=== PATIENT | female | born 1930 | race Caucasian/White ===

== ENCOUNTER 2016-10-28 12:56 | Emergency (ER) | payer BC ==
[~2016-10-28] VITALS: Ht 160 cm; Wt 69.0 kg
[~2016-10-28 12:56] MED LIST: ABL/5 PO; ACET325T30 PO; ASCO250T5 PO; ASPI81TA28 PO; B-COTAB18 PO; BISA-16 PO; CHOL400C9 PO; CLON0.5T3 PO; CYAN10005 PO; DEXL60CA4 PO; DICL1GEL28 TOP; DILT180C50 PO; DOCU1TAB6 PO; DULO60CA44 PO; FURO-85 PO; GABA-112 PO; HYDR200T5 PO; LEVO88TA PO; MULT-190 PO; MULT-884 PO; NYSS5 PO; ONDA8TAB7 SL; OXYC20TA50 PO; POLY335019 PO; POTA10TA PO; PRED10TA PO; RXC5 PO; TRIM100T20 PO
[2016-10-28 12:58] VITALS: TEMP 36.9; Ht 160 cm; Wt 69.0 kg
--- NOTE | 2016-10-28 13:30 | EMERGENCY ROOM VISIT NOTE ---
History Report prepared by Master: Inna Tracy Under the Supervision of: Dr. Truman Lazaro M.D. First contact with patient: 13:07 Chief Complaint: MENTAL HEALTH EVALUATION Stated Complaint: SUICIDAL THOUGHTS History of Present Illness The patient is a 85 year old female who presents to the Emergency Room for a mental health evaluation due to worsening depression that began last year. The patient's of 52 some years last year and she has been increasingly depressed since then. She feels as if she has no reason to live and has been having suicidal ideations. Her plan would be to throw herself down the steps. A few nights ago, she was standing at the top of her steps thinking about how easy it would be to fall down the steps purposefully. The patient does not have any history of mental health problems. She denies any alcohol or drug use. She has not had any hallucinations. Denies homicidal ideation. Source of History: patient Onset: last year Position: other (psychiatric) Quality: other (depression) Timing: worsening Note: Other symptoms: suicidal ideation Review of Systems See HPI for pertinent positives & negatives. A total of 10 systems reviewed and were otherwise negative. Past Medical & Surgical Medical Problems: (1) Ambulatory dysfunction (2) Arthritis (3) Asthma (4) Cholecystectomy (5) Chronic back pain (6) Depression (7) Diverticulitis (8) Fall from ground level (9) FUO (fever of unknown origin) (10) Gastroesophageal reflux disease (11) Generalized weakness (12) Hyperlipidemia (13) Hypothyroidism (14) IBS (15) Impacted cerumen (16) Lupus (17) Major depressive disorder, recurrent episode with anxious distress (18) Osteoarthritis (19) Pituitary adenoma (20) pituitary gland removal (21) SIRS (systemic inflammatory response syndrome) (22) TIA (23) UTI (urinary tract infection) (24) Vasovagal syncope (25) Viral syndrome Surgical Problems: (1) H/O: hysterectomy (2) History of hip replacement (3) Hx of cholecystectomy Family History Cancer Diabetes mellitus Gallbladder disease Heart disease Hypertension Kidney disease Kidney stones Seizures Social History Smoking Status: Never Smoker Alcohol Use: none Drug Use: none Marital Status: Housing Status: lives alone Occupation Status: retired Current/Historical Medications Scheduled Aripiprazole (Abilify), 10 MG PO DAILY Ascorbic Acid (Ascorbic Acid), 1 TAB PO HS Aspirin (Aspirin Ec), 81 MG PO DAILY B-Complex Vitamins (Vitamin B Complex), 1 TAB PO HS Cholecalciferol (Vitamin D3), 2 TAB PO HS Clonazepam (Klonopin), 0.5 MG PO QAM Clonazepam (Klonopin), 1 MG PO HS Cyanocobalamin (Vitamin B-12), 1,000 MCG PO HS Dexlansoprazole (Dexilant), 60 MG PO BID Diclofenac Sodium (Topical) (Voltaren 1% Top Gel), 1 APPLN TOP BID Diltiazem Hcl Coated Beads (Cartia Xt), 180 MG PO QAM Docusate Sodium (Docusate Sodium), 100 MG PO BID Duloxetine Hcl (Cymbalta), 60 MG PO DAILY Furosemide (Lasix), 40 MG PO QAM Gabapentin (Neurontin), 100 MG PO TID Hydroxychloroquine Sulfate (Plaquenil), 200 MG PO BID Levothyroxine Sodium (Synthroid), 88 MCG PO QAM Multiple Vitamin (Multi Vitamin Daily), 1 TAB PO DAILY Ocuvite Preservision (Ocuvite Preservision), 1 TAB PO BID Oxycodone Hcl (Oxycontin), 20 MG PO BID Polyethylene Glycol 3350 (Miralax), 17 GM PO BID Potassium Chloride (K-Tabs), 10 MEQ PO BID Prednisone Tab (Prednisone), 15 MG PO DAILY Trimethoprim (Proloprim), 100 MG PO DAILY Scheduled PRN Acetaminophen (Acetaminophen), 650 MG PO Q4 PRN for Pain Bisacodyl (Dulcolax), 5 MG PO DAILY PRN for Constipation Oxycodone HCl (Oxycodone HCl), 5 MG PO Q4H PRN for Pain Allergies Coded Allergies: Ciprofloxacin (Verified Allergy, Intermediate, rash, 08/20/16) Quinolones (Verified Allergy, Intermediate, HIVES, 08/20/16) Fluticasone (Verified Allergy, Unknown, ADVAIR, 08/20/16) Lactose Intolerance (Verified Allergy, Unknown, UNKNOWN, 08/20/16) Latex1 -Allergic Contact Dermititis (Verified Allergy, Unknown, RASH, 07/26) Morphine (Verified Allergy, Unknown, HIVES, 08/20/16) Nitrofurantoin (Verified Allergy, Unknown, HIVES, 08/20/16) Salmeterol (Verified Allergy, Unknown, ADVAIR, 08/20/16) Scallop (Verified Allergy, Unknown, UNKNOWN, 08/20/16) Celecoxib (Verified Adverse Reaction, Unknown, barretts esophagus, ) Physical Exam Vital Signs Date Time Temp Pulse Resp B/P Pulse Ox O2 Delivery O2 Flow Rate FiO2 10/28/16 18:11 102 18 122/61 92 Room Air 10/28/16 14:13 93 18 116/50 92 Room Air 10/28/16 12:58 36.9 97 18 99/52 97 Room Air Physical Exam GENERAL: Patient is elderly appearing and in no acute distress, sad appearing. HEENT: No acute trauma, normocephalic atraumatic, mucous membranes moist, no nasal congestion, no scleral icterus. NECK: No stridor, no adenopathy, no meningismus, trachea is midline. LUNGS: No dyspnea. Clear to auscultation and equal bilaterally. No wheeze, no rhonchi. HEART: Regular rate and rhythm. No murmurs, rubs, gallops appreciated. ABDOMEN: Soft, nontender, bowel sounds positive, no masses appreciated, no peritonitis. BACK: No midline tenderness, no CVA tenderness EXTREMITIES: Normal motion all extremities, no cyanosis, no edema. Well-dressed left heel wound without surrounding erythema or discharge. NEUROLOGIC: Alert and oriented, no acute motor or sensory deficits, no focal weakness, cranial nerves grossly intact. SKIN: No rash, no jaundice, no diaphoresis. PSYCH: Admits suicidal ideation with a plan, no hallucinations, no homicidal ideations. Medical Decision & Procedures ER Provider Diagnostic Interpretation: X ray results and stated below per my interpretation and radiologist interpretation. Other radiology results and stated below per my review and radiologist interpretation: CT HEAD WITHOUT CONTRAST (CT) CLINICAL HISTORY: Acute change in mental status. Suicidal patient. COMPARISON STUDY: 08/20/2016 TECHNIQUE: Axial CT of the brain is performed from the vertex to the skull base. IV contrast was not administered for this examination. CT DOSE: 638.56 mGycm FINDINGS: No intra or extra-axial mass lesions are visualized. There is no CT evidence of acute cortical infarction. There is no evidence of midline shift. There is no acute hemorrhage. No calvarial fractures are visualized. There are minor white matter hypodensities likely on a small vessel basis. 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 There is no evidence of acute sinusitis IMPRESSION: No acute intracranial findings Electronically signed by: Fredy Boyd M.D. 10/28/2016 2:10 PM Dictated Date/Time: 10/28/2016 2:09 PM CHEST ONE VIEW PORTABLE CLINICAL HISTORY: Leukocytosis. COMPARISON STUDY: Chest radiograph August 20, 2016. FINDINGS: Lung volumes are normal. There is no pneumothorax or pleural effusion. An azygos fissure is present. Cardiomediastinal silhouette is stable. Pulmonary vascularity is normal. A few nodular densities within the right midlung may reflect vessels. These are of doubtful significance. IMPRESSION: No acute cardiopulmonary findings. Electronically signed by: Anjel Encarnacion M.D. 10/28/2016 2:28 PM Dictated Date/Time: 10/28/2016 2:27 PM Laboratory Results 10/28/16 13:46 Red Blood Count 4.61, Mean Corpuscular Volume 88.7, Mean Corpuscular Hemoglobin 26.9, Mean Corpuscular Hemoglobin Concent 30.3, Mean Platelet Volume 10.1, Neutrophils (%) (Auto) 85.0, Lymphocytes (%) (Auto) 7.8, Monocytes (%) (Auto) 5.5, Eosinophils (%) (Auto) 0.7, Basophils (%) (Auto) 0.2, Neutrophils # (Auto) 13.07, Lymphocytes # (Auto) 1.20, Monocytes # (Auto) 0.84, Eosinophils # (Auto) 0.11, Basophils # (Auto) 0.03 10/28/16 13:46 Test 10/28/16 00:00 10/28/16 13:46 Urine Color YELLOW Urine Appearance CLEAR (CLEAR) Urine pH 7.5 (4.5-7.5) Urine Specific [place] 1.001 (1.000-1.030) Urine Protein NEG (NEG) Urine Glucose (UA) NEG (NEG) Urine Ketones NEG (NEG) Urine Occult Blood NEG (NEG) Urine Nitrite NEG (NEG) Urine Bilirubin NEG (NEG) Urine Urobilinogen NEG (NEG) Urine Leukocyte Esterase TRACE (NEG) Urine WBC (Auto) 1-5 /hpf (0-5) Urine RBC (Auto) 0-4 /hpf (0-4) Urine Hyaline Casts (Auto) 0 /lpf (0-5) Urine Epithelial Cells (Auto) 0-5 /lpf (0-5) Urine Bacteria (Auto) NEG (NEG) Urine Opiates Screen NEG (NEG) Urine Methadone, Qualitative NEG (NEG) Urine Barbiturates NEG (NEG) Urine Phencyclidine (PCP) Level NEG (NEG) Ur Amphetamine/Methamphetamine NEG (NEG) MDMA (Ecstasy) Screen NEG (NEG) Urine Benzodiazepines Screen NEG (NEG) Urine Cocaine Metabolite NEG (NEG) Urine Marijuana (THC) NEG (NEG) White Blood Count 15.37 K/uL (4.8-10.8) Red Blood Count 4.61 M/uL (4.2-5.4) Hemoglobin 12.4 g/dL (12.0-16.0) Hematocrit 40.9 % (37-47) Mean Corpuscular Volume 88.7 fL (80-100) Mean Corpuscular Hemoglobin 26.9 pg (25-34) Mean Corpuscular Hemoglobin Concent 30.3 g/dl (32-36) Platelet Count 256 K/uL (130-400) Mean Platelet Volume 10.1 fL (7.4-10.4) Neutrophils (%) (Auto) 85.0 % Lymphocytes (%) (Auto) 7.8 % Monocytes (%) (Auto) 5.5 % Eosinophils (%) (Auto) 0.7 % Basophils (%) (Auto) 0.2 % Neutrophils # (Auto) 13.07 K/uL (1.4-6.5) Lymphocytes # (Auto) 1.20 K/uL (1.2-3.4) Monocytes # (Auto) 0.84 K/uL (0.11-0.59) Eosinophils # (Auto) 0.11 K/uL (0-0.5) Basophils # (Auto) 0.03 K/uL (0-0.2) RDW Standard Deviation 62.9 fL (36.4-46.3) RDW Coefficient of Variation 19.2 % (11.5-14.5) Immature Granulocyte % (Auto) 0.8 % Immature Granulocyte # (Auto) 0.12 K/uL (0.00-0.02) Anion Gap 10.0 mmol/L (3-11) Est Creatinine Clear Calc Drug Dose 33.1 ml/min Estimated GFR () 48.4 Estimated GFR (Non- 41.8 BUN/Creatinine Ratio 12.9 (10-20) Calcium Level 8.9 mg/dl (8.5-10.1) Total Bilirubin 0.1 mg/dl (0.2-1) Aspartate Amino Transf (AST/SGOT) 15 U/L (15-37) Alanine Aminotransferase (ALT/SGPT) 28 U/L (12-78) Alkaline Phosphatase 87 U/L (45-117) Total Protein 6.4 gm/dl (6.4-8.2) Albumin 3.2 gm/dl (3.4-5.0) Globulin 3.2 gm/dl (2.5-4.0) Albumin/Globulin Ratio 1.0 (0.9-2) Thyroid Stimulating Hormone (TSH) 0.731 uIu/ml (0.300-4.500) Salicylates Level < 1.7 mg/dl (2.8-20) Acetaminophen Level 2 ug/ml (10-30) Ethyl Alcohol mg/dL < 3.0 mg/dl (0-3) Laboratory results as reviewed by me. ECG Indication: other (mental health evaluation) Rate (beats per minute): 91 Rhythm: normal sinus Findings: no acute ischemic change, no ectopy, other (QTC 440) ED Course 1320: The patient was evaluated in room A7. A complete history and physical exam was performed. 1505: Case management is contacting mental health facilities. 1632: The patient has been accepted at [facility]. I discussed the plan with the patient and her son. They agreed with the plan. 1716: Per case management, transport is set to arrive at 1800. 1815: I had a lengthy conversation with the patient's daughter. She was happy with the plan. Medical Decision Differential: Mood Disorder, Overdose, Infectious, Electrolyte Abnormality, Cardiac, Hepatic, Endocrine, Toxicologic, Neurologic, amongst other pathologies entertained. 85 yr old female arrives for mental health evaluation. Admits she wishes to kill herself. Long history of depression. a year ago and she has been spiraling since. She notes that has not attempted to harm self as of yet but has a plan. Makes clear she wishes to kill herself. She has healing wound left heal. WBC is mildly elevated, but it is at its normal baseline (seems to regularly run in teens). Multiple medical comorbidities though no evidence that she requires hospital admission at this time. She is in no distress and breathing comfortably. Work-up is essentially benign. No evidence of UTI/ pneumonia. No evidence meningitis. EKG normal. CT head/cxr unremarkable. She will need inpatient treatment and agrees to 201 admission. Accepted to [facility] for further evaluation/treatment. Impression Primary Impression: Suicidal ideation Additional Impression: Depression Scribe Attestation The scribe's documentation has been prepared under my direction and personally reviewed by me in its entirety. I confirm that the note above accurately reflects all work, treatment, procedures, and medical decision making performed by me. Departure Information Dispostion Mental Health Acute Care Referrals Nidhi Gardner MD (PCP) Patient Instructions My [facility] Problem Qualifiers Additional Impression: Depression Depression Type: major depressive disorder Major depression recurrence: recurrent Active/Remission status: currently active Major depression episode severity: severe Psychotic features: without psychotic features Qualified Codes: F33.2 - Major depressive disorder, recurrent severe without psychotic features
[2016-10-28 13:38] LABS: URINE APPEARANCE CLEAR (CLEAR); URINE BILIRUBIN NEG (NEG); URINE COLOR YELLOW; URINE EPITHELIAL CELL AUTO 0-5 /lpf (0-5); URINE NITRITE NEG (NEG); URINE PH 7.5 (4.5-7.5); URINE SPECIFIC GRAVITY 1.001 (1.000-1.030); UROBILINOGEN NEG (NEG); ZZUR CULT IF INDIC CLEAN CATCH NO
[2016-10-28 13:40] LABS: MANUAL MICROSCOPIC REQUIRED? NO; REVIEW REQ? NO
[2016-10-28 14:03] LABS: BENZODIAZEPINE, URINE NEG (NEG); COCAINE,URINE NEG (NEG); PHENCYCLIDINE, URINE NEG (NEG)
[2016-10-28 14:04] LABS: BASO % 0.2 %; BASO ABS # 0.03 K/uL (0-0.2); COMPLETE YES; EOS % 0.7 %; HEMATOCRIT 40.9 % (37-47); IG% 0.8 %; LYMPH % 7.8 %; MEAN CELL VOLUME 88.7 fL (80-100); MEAN CORPUSCULAR HEMOGLOBIN 26.9 pg (25-34); MEAN CORPUSCULAR HGB CONC 30.3 g/dl (32-36); MEAN PLATELET VOLUME 10.1 fL (7.4-10.4); MONO % 5.5 %; PLATELET COUNT 256 K/uL (130-400); RED BLOOD COUNT 4.61 M/uL (4.2-5.4); WHITE BLOOD COUNT 15.37 K/uL (4.8-10.8)
[2016-10-28] MEDS ORDERED: DICL1GEL12 TOP (14:06)
--- NOTE | 2016-10-28 14:12 | DIAGNOSTIC IMAGING REPORT ---
CT HEAD WITHOUT CONTRAST (CT) CLINICAL HISTORY: Acute change in mental status. Suicidal patient. COMPARISON STUDY: 08/20/2016 TECHNIQUE: Axial CT of the brain is performed from the vertex to the skull base. IV contrast was not administered for this examination. CT DOSE: 638.56 mGycm FINDINGS: No intra or extra-axial mass lesions are visualized. There is no CT evidence of acute cortical infarction. There is no evidence of midline shift. There is no acute hemorrhage. No calvarial fractures are visualized. There are minor white matter hypodensities likely on a small vessel basis. 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 There is no evidence of acute sinusitis IMPRESSION: No acute intracranial findings Electronically signed by: Fredy Boyd M.D. 10/28/2016 2:10 PM Dictated Date/Time: 10/28/2016 2:09 PM
[2016-10-28 14:18] LABS: BUN/CREATININE RATIO 12.9 (10-20); CALCIUM 8.9 mg/dl (8.5-10.1); CREATININE 1.2 mg/dl (0.60-1.20); POTASSIUM 3.9 mmol/L (3.5-5.1)
[2016-10-28 14:25] LABS: ACETAMINOPHEN 2 ug/ml (10-30)
[2016-10-28 14:29] LABS: THYROID STIMULATING HORMONE 0.731 uIu/ml (0.300-4.500)
--- NOTE | 2016-10-28 14:30 | DIAGNOSTIC IMAGING REPORT ---
CHEST ONE VIEW PORTABLE CLINICAL HISTORY: Leukocytosis. COMPARISON STUDY: Chest radiograph August 20, 2016. FINDINGS: Lung volumes are normal. There is no pneumothorax or pleural effusion. An azygos fissure is present. Cardiomediastinal silhouette is stable. Pulmonary vascularity is normal. A few nodular densities within the right midlung may reflect vessels. These are of doubtful significance. IMPRESSION: No acute cardiopulmonary findings. Electronically signed by: Anjel Encarnacion M.D. 10/28/2016 2:28 PM Dictated Date/Time: 10/28/2016 2:27 PM
[2016-10-28 18:11] VITALS: BP 122/61; PULSE 102; O2SAT 92
[2016-11-04] MEDS ORDERED: OXYSR/10 PO (15:05)
[2016-11-04] MEDS ORDERED: GABA-113 PO (15:05)
[2016-11-04] MEDS ORDERED: QUET400T PO (15:05)
[2016-11-04] MEDS ORDERED: DULO1CAP39 PO (15:05)
[2016-11-04] MEDS ORDERED: ONDA8TAB6 PO (15:06)
[2017-05-18] MEDS ORDERED: CEFD1CAP14 PO (12:11)
== END 2016-10-28 18:13 ==
LOC: C.EDB 12:57 → C.EDA 18:13
DX: R45.851 Suicidal ideations (principal); F32.9 Major depressive disorder, single episode, unspecified; J45.909 Unspecified asthma, uncomplicated; Z90.49 Acquired absence of other specified parts of digestive tract; K21.9 Gastro-esophageal reflux disease without esophagitis; E78.5 Hyperlipidemia, unspecified; E03.9 Hypothyroidism, unspecified; K58.9 Irritable bowel syndrome, unspecified; Z86.73 Personal history of transient ischemic attack (TIA), and cerebral infarction without residual deficits; Z90.710 Acquired absence of both cervix and uterus; Z79.82 Long term (current) use of aspirin; Z79.899 Other long term (current) drug therapy

== ENCOUNTER → 2016-11-09 | Outpatient (CLI) | payer BC ==
[~2016-11-09] MED LIST changes: -ABL/5 PO; +AMOX500T PO; +ASCO1CAP3 PO; +CEFD1CAP14 PO; +CHOL200027 PO; -CLON0.5T3 PO; +CYAN100020 PO; +CYM/30 PO; +DICL1GEL12 TOP; -DICL1GEL28 TOP; +DOCU-94 PO; -DOCU1TAB6 PO; +DULO1CAP39 PO; -GABA-112 PO; +GABA-113 PO; -MULT-884 PO; -NYSS5 PO; +ONDA8TAB6 PO; +ONDA8TAB62 SL; -ONDA8TAB7 SL; +OXGN; -OXYC20TA50 PO; +OXYSR/10 PO; +PRED-301 PO; +QUET1TAB34 PO; +QUET400T PO; -RXC5 PO
[2016-11-09 11:40] LABS: ESTIMATED AVERAGE GLUCOSE 131 mg/dl; HA1C FLAG Normal (Normal)
[2016-11-09 11:41] LABS: BLOOD UREA NITROGEN 13 mg/dl (7-18); BUN/CREATININE RATIO 10.3 (10-20); CALCIUM 9.5 mg/dl (8.5-10.1); CARBON DIOXIDE 32 mmol/L (21-32); CHLORIDE 102 mmol/L (98-107); GLUCOSE 90 mg/dl (70-99); POTASSIUM 3.8 mmol/L (3.5-5.1); SODIUM 143 mmol/L (136-145)
[2016-11-09 17:57] LABS: RATIO 23.4 mcg/mg (0-30.0)
== END | disposition home or self-care (01) ==
LOC: C.LAB 09:57
PROVIDERS: ATTEND Family Medicine
DX: Z00.00 Encounter for general adult medical examination without abnormal findings (principal); E11.9 Type 2 diabetes mellitus without complications; R60.9 Edema, unspecified; D64.9 Anemia, unspecified

== ENCOUNTER → 2016-11-19 | Day surgery (SDC) | payer BC ==
[2016-11-04 15:06] VITALS: Ht 160 cm; Wt 67.3 kg
[~2016-11-19] VITALS: Ht 160 cm; Wt 67.3 kg
[~2016-11-19] MED LIST changes: +BUPIVACAINE 0.25% 2.5MG/ML PF 10 ML VIAL INFIL ONE; +BUPIVACAINE 0.25% 2.5MG/ML PF 10 ML VIAL ONE; +IOPAMIDOL INJ 61% 15 ML VIAL ONE; +LIDOCAINE HCL 1% MPF 5 ML VIAL ONE
--- NOTE | 2016-11-19 13:48 | History & Physical Bridge - SC ---
H&P Re-Evaluation Bridge Note: I have examined the patient, reviewed the History & Physical and in the interval since the performance of the History & Physical I have noted the following changes of clinical significance: No changes noted
--- NOTE | 2016-11-19 14:13 | Discharge Instructions ---
Discharge Instructions Visit Reason for Visit: Sacroiliitis Discharge Discharge Diagnosis / Problem: low back pain Discharge Goals Goal(s): Decrease discomfort, Improve function Activity Recommendations Activity Limitations: resume your previous activity Anesthesia . Post Anesthesia Instructions: If you have had General Anesthesia or IV Sedation: * Do not drive today. * Resume driving when surgeon permits. * Do not make important decisions or sign legal documents today. * Call surgeon for: 1. Temperature elevations greater than 101 degrees F. 2. Uncontrollable pain. 3. Excessive bleeding. 4. Persistent nausea and vomiting. 5. Medication intolerance (nausea, vomiting or rash). * For nausea and vomiting use only clear liquids such as: tea, soda, bouillon until nausea subsides, then gradually increase diet as tolerated. * If you have any concerns or questions, call your surgeon's office. If physician is unavailable and it is an emergency, call 911 or go to the nearest emergency room. . Diet Recommendations Recommended Home Diet: resume previous diet Procedures Procedures Performed: Left Sacroiliac Joint Injection Pending Studies Studies pending at discharge: no Medical Emergencies . Who to Call and When: Medical Emergencies: If at any time you feel your situation is an emergency, please call 911 immediately. . Non-Emergent Contact Non-Emergency issues call your: Specialist . . "Provider Documentation" section prepared by Bridger Castellon.
[2016-11-19 14:33] VITALS: BP 116/70; PULSE 102; TEMP 37.2; O2SAT 96
--- NOTE | 2016-11-19 15:52 | OPERATIVE REPORT ---
DATE OF OPERATION: 11/19/2016 PREOPERATIVE DIAGNOSIS: Left sacroiliitis with underlying rheumatoid arthritis. POSTOPERATIVE DIAGNOSIS: Same. PROCEDURE: Left sacroiliac joint injection under fluoroscopic guidance. INDICATIONS: The patient is an 85-year-old white female who has pain localizing to her sacroiliac joint. She has had bilateral hip replacements done for the rheumatoid arthritis and presents today for an injection to provide her with relief of sacroiliitis that she is experiencing. PHYSICAL EXAMINATION: GENERAL: Pleasant female seated comfortably, in no apparent distress. MUSCULOSKELETAL: She has point tenderness to palpation of her SI joint. She has normal motor and sensory examination. Fabere maneuver was deferred given her bilateral hip arthroplasties. CONSENT: Verbal and written consent was obtained from the patient. Risks and benefits were reviewed. Risks include but are not limited to abscess and allergic reaction. The patient wishes to proceed. PROCEDURE: The patient was taken back to the special procedures room of the [facility] where she was maintained in a prone position. Backside was cleansed with Betadine x3 and a dry sterile dressing was applied. Fluoroscope was used to identify the left sacroiliac joint and the overlying skin was anesthetized with 2.5 mL of lidocaine 1% with a 25 gauge 1.5-inch needle. A 25 gauge 3.5 inch spinal needle was then directed into the joint under fluoroscopic guidance. Isovue 300 contrast 0.25 mL demonstrated an intra-articular placement. She then underwent injection after negative aspiration of 40 mg of Depo-Medrol and 1.5 mL of bupivacaine 0.25%. Injection was well tolerated. DISPOSITION: 1. The patient is taken out into the discharge recovery area where she will be discharged home once discharge criteria have been met. 2. Follow up in the [facility] office in 2-4 weeks. I attest to the content of the Intraoperative Record and any orders documented therein. Any exceptio ns are noted below.
== END | disposition home or self-care (01) ==
LOC: X.SURG 13:04
PROVIDERS: ATTEND Physical Medicine & Rehabilitation
DX: M46.1 Sacroiliitis, not elsewhere classified (principal); M06.9 Rheumatoid arthritis, unspecified; Z96.649 Presence of unspecified artificial hip joint; Z90.710 Acquired absence of both cervix and uterus; Z98.890 Other specified postprocedural states; Z88.5 Allergy status to narcotic agent; Z88.8 Allergy status to other drugs, medicaments and biological substances

== ENCOUNTER → 2016-12-21 | Outpatient (CLI) | payer BC ==
[~2016-12-21] MED LIST changes: -BUPIVACAINE 0.25% 2.5MG/ML PF 10 ML VIAL INFIL ONE; -BUPIVACAINE 0.25% 2.5MG/ML PF 10 ML VIAL ONE; -IOPAMIDOL INJ 61% 15 ML VIAL ONE; -LIDOCAINE HCL 1% MPF 5 ML VIAL ONE
--- NOTE | 2016-12-21 15:03 | DIAGNOSTIC IMAGING REPORT ---
RIGHT KNEE 4 OR MORE CLINICAL HISTORY: RIGHT KNEE PAIN Right pain COMPARISON: None. DISCUSSION: Narrowing lateral joint compartment right knee. Very small joint effusion. Moderate degenerative change patellofemoral joint. Left knee shows no significant degenerative change. There is no evidence for soft tissue swelling. IMPRESSION: Degenerative changes lateral joint compartment right knee. Very small joint effusion. Electronically signed by: Robinson Turner M.D. 12/21/2016 3:01 PM Dictated Date/Time: 12/21/2016 3:01 PM
== END | disposition home or self-care (01) ==
LOC: C.RDSM 14:33
PROVIDERS: ATTEND Physical Medicine & Rehabilitation Sports Medicine
DX: M25.561 Pain in right knee (principal)

== ENCOUNTER 2016-12-28 11:47 | Inpatient (IN) | payer BC, OTHER ==
[~2016-12-28] VITALS: Ht 160 cm; Wt 68.2 kg
[~2016-12-28 11:47] MED LIST changes: -AMOX500T PO; -ASCO1CAP3 PO; -CEFD1CAP14 PO; -CHOL200027 PO; -CYAN100020 PO; -CYM/30 PO; -DOCU-94 PO; -DULO60CA44 PO; -ONDA8TAB62 SL; -OXGN; -PRED-301 PO; -PRED10TA PO; -QUET1TAB34 PO
[2016-12-28 12:38] LABS: URINE APPEARANCE CLEAR (CLEAR); URINE BILIRUBIN NEG (NEG); URINE COLOR YELLOW; URINE NITRITE POS (NEG); URINE PH 5.5 (4.5-7.5); URINE SPECIFIC GRAVITY 1.014 (1.000-1.030); UROBILINOGEN NEG (NEG); ZZURINE CULT IF INDIC CATH YES
[2016-12-28 12:43] LABS: MANUAL MICROSCOPIC REQUIRED? NO; REVIEW REQ? YES
[2016-12-28] MEDS ORDERED: CHOL200027 PO (12:43)
[2016-12-28] MEDS ORDERED: QUET1TAB34 PO (12:43)
[2016-12-28] MEDS ORDERED: DOCU-94 PO (12:43)
[2016-12-28] MEDS ORDERED: DICL1GEL12 TOP (12:43)
[2016-12-28] MEDS ORDERED: DULO60CA44 PO (12:46)
[2016-12-28] MEDS ORDERED: CYM/30 PO (12:46)
[2016-12-28 13:03] LABS: BASO % 0.2 %; BASO ABS # 0.04 K/uL (0-0.2); COMPLETE YES; EOS % 1.6 %; HEMATOCRIT 41.2 % (37-47); IG% 1.7 %; LYMPH ABS # 2.01 K/uL (1.2-3.4); MEAN CORPUSCULAR HEMOGLOBIN 29.7 pg (25-34); MEAN CORPUSCULAR HGB CONC 32.3 g/dl (32-36); MEAN PLATELET VOLUME 10.1 fL (7.4-10.4); MONO % 10.6 %; NEUT % 73.9 %; PLATELET COUNT 254 K/uL (130-400); RED BLOOD COUNT 4.48 M/uL (4.2-5.4); WHITE BLOOD COUNT 16.72 K/uL (4.8-10.8)
[2016-12-28 13:11] LABS: PARTIAL THROMBOPLASTIN RATIO 1.2; PROTHROMBIN TIME (PATIENT) 10.6 SECONDS (9.0-12.0)
[2016-12-28 13:13] LABS: BUN/CREATININE RATIO 12.9 (10-20); CALCIUM 9.1 mg/dl (8.5-10.1); CREATININE 0.93 mg/dl (0.60-1.20); POTASSIUM 3.2 mmol/L (3.5-5.1)
[2016-12-28] MEDS ORDERED: SULFAMETHOXAZOLE/TRIMETHOPRIM DS 800/160MG TAB PO STA (13:15)
[2016-12-28] MEDS ORDERED: CEFTRIAXONE SOD INJ 1 GM ADDVIAL IV STA (13:15)
[2016-12-28] MEDS ORDERED: SODIUM CHLORIDE 0.9% 500ML 500 ML IV STA (13:16)
--- NOTE | 2016-12-28 13:28 | EMERGENCY ROOM VISIT NOTE ---
History Report prepared by Master: Lorenzo Rosales Under the Supervision of: Dr. Enmanuel Esteban M.D. First contact with patient: 13:08 Chief Complaint: URINARY SYMPTOMS Stated Complaint: URINARY SYMPTOMS History of Present Illness The patient is an 86 year old female who presents to the Emergency Room with complaints of persistent urinary symptoms for the past three days. The urinary symptoms include burning with urination and urinary frequency. The patient has multiple other complaints starting three days ago, including lightheadedness, nausea, frequent sweats, neck pain that radiates to her jaw. She has never had this type of pain before. The patient also notes decreased appetite. Nursing notes indicate that yesterday she had a low grade fever. The patient takes Cora. She has an ostomy and denies any related issues. Source of History: patient Onset: three days ago Position: other (urinary system) Quality: other (urinary symptoms (burning + frequency)) Timing: other (persistent) Associated Symptoms: + fevers (low grade), + nausea, + neck pain Review of Systems See HPI for pertinent positives & negatives. A total of 10 systems reviewed and were otherwise negative. Past Medical & Surgical Medical Problems: (1) Ambulatory dysfunction (2) Arthritis (3) Asthma (4) Cholecystectomy (5) Chronic back pain (6) Depression (7) Diverticulitis (8) Fall from ground level (9) FUO (fever of unknown origin) (10) Gastroesophageal reflux disease (11) Generalized weakness (12) Hyperlipidemia (13) Hypothyroidism (14) IBS (15) Impacted cerumen (16) Lupus (17) Major depressive disorder, recurrent episode with anxious distress (18) Osteoarthritis (19) Pituitary adenoma (20) pituitary gland removal (21) Sepsis (22) SIRS (systemic inflammatory response syndrome) (23) TIA (24) UTI (urinary tract infection) (25) Vasovagal syncope (26) Viral syndrome Surgical Problems: (1) H/O: hysterectomy (2) History of hip replacement (3) Hx of cholecystectomy Family History Cancer Diabetes mellitus Gallbladder disease Heart disease Hypertension Kidney disease Kidney stones Seizures Social History Smoking Status: Never Smoker Alcohol Use: none Drug Use: none Marital Status: Housing Status: lives alone Occupation Status: retired Current/Historical Medications Scheduled Ascorbic Acid (Ascorbic Acid), 500 MG PO DAILY Aspirin (Aspirin Ec), 81 MG PO DAILY B-Complex Vitamins (Vitamin B Complex), 1 TAB PO HS Cholecalciferol (Vitamin D-3), 2,000 UNITS PO DAILY Cyanocobalamin (Vitamin B-12), 1,000 MCG PO HS Dexlansoprazole (Dexilant), 60 MG PO BID Diclofenac Sodium (Topical) (Voltaren 1% Top Gel), 4 GM TOP QID Diltiazem Hcl Coated Beads (Cartia Xt), 180 MG PO QAM Docusate Sodium (Colace), 2 CAP PO DAILY Duloxetine Hcl (Cymbalta), 60 MG PO DAILY Duloxetine Hcl (Cymbalta), 30 MG PO DAILY Furosemide (Lasix), 40 MG PO QAM Gabapentin (Neurontin), 300 MG PO BID Hydroxychloroquine Sulfate (Plaquenil), 200 MG PO BID Levothyroxine Sodium (Synthroid), 88 MCG PO QAM Ocuvite Preservision (Ocuvite Preservision), 1 TAB PO DAILY Oxycodone HCl (Oxycontin), 1 TAB PO BID Polyethylene Glycol 3350 (Miralax), 17 GM PO BID Quetiapine Fumarate (Seroquel), 100 MG PO HS Trimethoprim (Proloprim), 100 MG PO DAILY Scheduled PRN Bisacodyl (Dulcolax), 5 MG PO DAILY PRN for Constipation Ondansetron Hcl (Zofran), 8 MG PO Q6H PRN for Nausea Allergies Coded Allergies: Ciprofloxacin (Verified Allergy, Intermediate, rash, 12/23/16) Quinolones (Verified Allergy, Intermediate, HIVES, 12/23/16) Fluticasone (Verified Allergy, Unknown, ADVAIR, 12/23/16) Lactose Intolerance (Verified Allergy, Unknown, UNKNOWN, 12/23/16) Latex1 -Allergic Contact Dermititis (Verified Allergy, Unknown, RASH, 12/23) Morphine (Verified Allergy, Unknown, HIVES, 12/23/16) Nitrofurantoin (Verified Allergy, Unknown, HIVES, 12/23/16) Salmeterol (Verified Allergy, Unknown, ADVAIR, 12/23/16) Scallop (Verified Allergy, Unknown, UNKNOWN, 12/23/16) Celecoxib (Verified Adverse Reaction, Unknown, barretts esophagus, 12/23/16 ) Physical Exam Vital Signs Date Time Temp Pulse Resp B/P Pulse Ox O2 Delivery O2 Flow Rate FiO2 12/28/16 15:35 107 12 99 12/28/16 15:30 138/57 12/28/16 15:20 105 15 98 12/28/16 15:05 105 12 98 12/28/16 15:00 137/65 12/28/16 14:57 98/53 12/28/16 14:56 80/58 12/28/16 14:17 105 99 12/28/16 13:59 133/61 12/28/16 13:47 102 8 98 12/28/16 13:41 119/62 12/28/16 13:40 107 20 119/62 99 Room Air 12/28/16 13:18 106 12/28/16 13:17 101 10 86 12/28/16 12:47 104 11 87 12/28/16 12:17 103 10 91 12/28/16 12:12 107 12/28/16 12:11 162/75 12/28/16 11:54 36.7 110 20 132/56 92 Room Air Physical Exam GENERAL: Patient is a healthy-appearing well-nourished HEAD: Normocephalic atraumatic EYES: Ocular movements intact pupils equal and react to light OROPHARYNX mucous membranes are moist no exudates present no erythema or edema present NECK: Supple no nuchal rigidity. No evidence of meningitis or encephalitis on exam. CHEST: Good equal expansion LUNGS: Clear and equal to auscultation CARDIAC: Normal S1 and S2 ABDOMEN: Soft nontender no guarding BACK: No CVA tenderness EXTREMITIES: No pain upon palpation normal muscle strength in all groups no clubbing cyanosis or edema NEURO: Patient is following commands is answering questions appropriately. Alert and oriented x3 Cranial Nerves 2-12 grossly intact Medical Decision & Procedures ER Provider Diagnostic Interpretation: Radiology results as stated below per my review and radiologist interpretation: CHEST ONE VIEW PORTABLE HISTORY: Short of breath. COMPARISON: Chest 10/28/2016. FINDINGS: The lungs are clear. Cardiac silhouette is normal in size. No pleural effusions. No pneumothorax. Incidental is made of a right azygos lobe. IMPRESSION: No significant change compared to the prior study. No acute process. Electronically signed by: Osbaldo Washington M.D. 12/28/2016 1:50 PM Dictated Date/Time: 12/28/2016 1:[address] NON[address]AST CT DOSE: 614.27 mGy.cm HISTORY: Headache. Altered mental status. TECHNIQUE: Multiaxial CT images of the head were performed without the use of intravenous contrast. Automated exposure control was utilized for this study. Comparison: Head CT 10/28/2016. Findings: The paranasal sinuses and mastoid air cells are clear. The calvarium and skull base are intact. There is no mass, hematoma, midline shift, acute infarct. White matter hypodensity is nonspecific but suggestive of microvascular ischemic change. The ventricles and sulci demonstrate mild age-related involutional changes. Impression: No significant change compared to the prior study. No acute intracranial abnormality. Electronically signed by: Osbaldo Washington M.D. 12/28/2016 3:01 PM Dictated Date/Time: 12/28/2016 2:57 PM Laboratory Results Test 12/28/16 12:10 12/28/16 12:30 Urine Color YELLOW Urine Appearance CLEAR (CLEAR) Urine pH 5.5 (4.5-7.5) Urine Specific [place] 1.014 (1.000-1.030) Urine Protein NEG (NEG) Urine Glucose (UA) NEG (NEG) Urine Ketones NEG (NEG) Urine Occult Blood TRACE (NEG) Urine Nitrite POS (NEG) Urine Bilirubin NEG (NEG) Urine Urobilinogen NEG (NEG) Urine Leukocyte Esterase SMALL (NEG) Urine WBC (Auto) 10-30 /hpf (0-5) Urine RBC (Auto) 0-4 /hpf (0-4) Urine Hyaline Casts (Auto) 1-5 /lpf (0-5) Urine Epithelial Cells (Auto) 5-10 /lpf (0-5) Urine Bacteria (Auto) 4+ (NEG) Urine Renal Epithelial Cells /lpf (0-5) Immature Granulocyte % (Auto) 1.7 % White Blood Count 16.72 K/uL (4.8-10.8) Red Blood Count 4.48 M/uL (4.2-5.4) Hemoglobin 13.3 g/dL (12.0-16.0) Hematocrit 41.2 % (37-47) Mean Corpuscular Volume 92.0 fL (80-100) Mean Corpuscular Hemoglobin 29.7 pg (25-34) Mean Corpuscular Hemoglobin Concent 32.3 g/dl (32-36) Platelet Count 254 K/uL (130-400) Mean Platelet Volume 10.1 fL (7.4-10.4) Neutrophils (%) (Auto) 73.9 % Lymphocytes (%) (Auto) 12.0 % Monocytes (%) (Auto) 10.6 % Eosinophils (%) (Auto) 1.6 % Basophils (%) (Auto) 0.2 % Neutrophils # (Auto) 12.34 K/uL (1.4-6.5) Lymphocytes # (Auto) 2.01 K/uL (1.2-3.4) Monocytes # (Auto) 1.78 K/uL (0.11-0.59) Eosinophils # (Auto) 0.26 K/uL (0-0.5) Basophils # (Auto) 0.04 K/uL (0-0.2) Immature Granulocyte # (Auto) 0.29 K/uL (0.00-0.02) Prothrombin Time 10.6 SECONDS (9.0-12.0) Prothromb Time International Ratio 1.0 (0.9-1.1) Activated Partial Thromboplast Time 31.5 SECONDS (21.0-31.0) Partial Thromboplastin Ratio 1.2 Labs reviewed by ED physician. Medications Administered Medications (Trade) Dose Ordered Sig/Taye Route Start Time Stop Time Status Last Admin Dose Admin Ceftriaxone Sodium (Rocephin Inj) 1 gm NOW STAT IV 12/28/16 13:15 12/28/16 13:17 DC 12/28/16 13:37 1 GM Trimethoprim/ Sulfamethoxazole 1 tab 1 tab NOW STAT PO 12/28/16 13:15 12/28/16 13:17 DC 12/28/16 13:37 1 TAB Sodium Chloride 500 ml @ 999 mls/hr Q31M STAT IV 12/28/16 13:16 12/28/16 13:46 DC 12/28/16 13:37 999 MLS/HR Sodium Chloride (Nss 1000ml) 1,000 ml @ 100 mls/hr Q10H IV 12/28/16 15:45 01/27/17 15:44 12/29/16 11:13 100 MLS/HR ECG Indication: other (lightheadedness) Rate (beats per minute): 103 Rhythm: sinus tachycardia Findings: no acute ischemic change, no ectopy ED Course 1310: Past medical records reviewed. The patient was evaluated in room A12b. A complete history and physical examination was performed. 1315: Septra Ds 800/160 mg PO, Rocephin 1 gm IV. 1316: NSS 500 ml @ 999 mls/hr. 1446: Discussed the case with [facility] The patient will be evaluated. Medical Decision Differential diagnosis: Etiologies such as metabolic, infection, hypo/hyperglycemia, electrolyte abnormalities, cardiac sources, intracerebral event, toxicologic, neurologic, as well as others were entertained. This is a 89-year-old female who presents emergency department complaining of altered mental status as well as weakness at home. The patient has a history of urosepsis in the past. She was sent in by her primary care physician's office. An IV was established, the patient was started on Rocephin given normal saline bolus. CAT scan of the head as well as chest x-ray do not show any acute process. I did discuss the case with the hospitalist who is willing to accept the patient. Pt was in agreement with the treatment plan. Consults Time Called: 1440 Consulting Physician: Dr. [facility]. Returned Call: [phone]: Discussed the case with Dr[facility]. The patient will be evaluated. Impression Primary Impression: Altered mental status Additional Impression: UTI (urinary tract infection) Scribe Attestation The scribe's documentation has been prepared under my direction and personally reviewed by me in its entirety. I confirm that the note above accurately reflects all work, treatment, procedures, and medical decision making performed by me. Departure Information Dispostion Being Evaluated By Hospitalist Referrals Nidhi Gardner MD (PCP) Patient Instructions My [facility] Problem Qualifiers Primary Impression: Altered mental status Altered mental status type: unspecified Qualified Codes: R41.82 - Altered mental status, unspecified Additional Impression: UTI (urinary tract infection) Urinary tract infection type: acute cystitis Hematuria presence: without hematuria Qualified Codes: N30.00 - Acute cystitis without hematuria
--- NOTE | 2016-12-28 13:51 | DIAGNOSTIC IMAGING REPORT ---
CHEST ONE VIEW PORTABLE HISTORY: Short of breath. COMPARISON: Chest 10/28/2016. FINDINGS: The lungs are clear. Cardiac silhouette is normal in size. No pleural effusions. No pneumothorax. Incidental is made of a right azygos lobe. IMPRESSION: No significant change compared to the prior study. No acute process. Electronically signed by: Osbaldo Washington M.D. 12/28/2016 1:50 PM Dictated Date/Time: 12/28/2016 1:49 PM
--- NOTE | 2016-12-28 15:03 | DIAGNOSTIC IMAGING REPORT ---
HEAD CT NONCONTRAST CT DOSE: 614.27 mGy.cm HISTORY: Headache. Altered mental status. TECHNIQUE: Multiaxial CT images of the head were performed without the use of intravenous contrast. Automated exposure control was utilized for this study. Comparison: Head CT 10/28/2016. Findings: The paranasal sinuses and mastoid air cells are clear. The calvarium and skull base are intact. There is no mass, hematoma, midline shift, acute infarct. White matter hypodensity is nonspecific but suggestive of microvascular ischemic change. The ventricles and sulci demonstrate mild age-related involutional changes. Impression: No significant change compared to the prior study. No acute intracranial abnormality. Electronically signed by: Osbaldo Washington M.D. 12/28/2016 3:01 PM Dictated Date/Time: 12/28/2016 2:57 PM
[2016-12-28] MEDS ORDERED: BISACODYL 5 MG TABEC PO PRN (15:45)
[2016-12-28] MEDS ORDERED: ONDANSETRON 8 MG TAB PO PRN (15:45)
[2016-12-28] MEDS ORDERED: VANCOMYCIN CONSULT ACTIVE PRN (16:00)
[2016-12-28] MEDS ORDERED: PIPERACILL/TAZOBAC CONSULT ACTIVE PRN (16:00)
[2016-12-28] MEDS ORDERED: PIPERACILLIN/TAZOBACTAM 4.5 GM/100ML D5W IV STA (16:03)
[2016-12-28] MEDS ORDERED: VANCOMYCIN 1GM/270ML NSS ONE (16:26)
[2016-12-28] MEDS ORDERED: CEFEPIME IV 2000 MG in DEXTROSE 5% 100ML IV ONE (16:30)
[2016-12-28] MEDS ORDERED: CEFEPIME CONSULT ACTIVE PRN ×2 (16:30)
--- NOTE | 2016-12-28 16:48 | Pharmacy Progress Note ---
Pharmacy Antibiotic Consult Date of Service: Dec 28, 2016. Pharmacy Dosing Scope Pharmacy is consulted to initiate Vancomycin and Cefepime IV dosing therapy, order appropriate labs and adjust drug dose/frequency. Subjective The patient is a 86 year old female admitted on 12/28/16 for sepsis, urinary source. Objective Height (Feet): 5 Height (Inches): 3.00 Weight (Kilograms): 68.200 Lab Results (24hrs): Laboratory Tests Test 12/28/16 12:30 BUN/Creatinine Ratio 12.9 Blood Urea Nitrogen 12 mg/dl Creatinine 0.93 mg/dl White Blood Count 16.72 K/uL Red Blood Count 4.48 M/uL Hemoglobin 13.3 g/dL Hematocrit 41.2 % Mean Corpuscular Volume 92.0 fL Mean Corpuscular Hemoglobin 29.7 pg Mean Corpuscular Hemoglobin Concent 32.3 g/dl Platelet Count 254 K/uL Mean Platelet Volume 10.1 fL Neutrophils (%) (Auto) 73.9 % Lymphocytes (%) (Auto) 12.0 % Monocytes (%) (Auto) 10.6 % Eosinophils (%) (Auto) 1.6 % Basophils (%) (Auto) 0.2 % Neutrophils # (Auto) 12.34 K/uL Lymphocytes # (Auto) 2.01 K/uL Monocytes # (Auto) 1.78 K/uL Eosinophils # (Auto) 0.26 K/uL Basophils # (Auto) 0.04 K/uL Micro Results: Item Value Date Time Urine Culture Received 12/28/16 1210 Urine,Catheterized Pending Blood Culture Juliann Batch 12/28/16 1537 Blood Pending Blood Culture Juliann Batch 12/28/16 1537 Blood Pending Assessment & Plan Assessment 86 year old female admitted with sepsis - urinary source. Patient is febrile with leukocytosis, lactic acid is pending. Patient has a h/o Pseudomonas UTI (tapia sensitive) and Klebsiella UTI (resistant to unasyn, zosyn, macrobid, bactrim, ancef) H&P not dictated at time of pharmacy consult - patient still in ER. Plan Vancomycin and Cefepime for treatment of sepsis, UTI Vancomycin IV * Loading dose: 1700 mg (25 mg/kg) * Maintenance dose: 1100 mg (16 mg/kg) IV every 18 hours * Goal trough level estimate: between 15 - 20 mcg/mL. * Trough level will be ordered prior to the fourth dose Cefepime * Recommended dose of 2g IV every 12 hours reduced to 2 g IV every 12 hours for CrCl 30-60 ml/min Pharmacy will continue to follow and will adjust dose/frequency as necessary. Thank you
[2016-12-28] MEDS ORDERED: ACETAMINOPHEN 325 MG TAB PO PRN (17:00)
[2016-12-28] MEDS ORDERED: ZOLPIDEM TARTRATE 5 MG TAB PO PRN (17:00)
[2016-12-28] MEDS ORDERED: VANCOMYCIN INJ 1,700 MG in SODIUM CHLORIDE 0.9% 500ML 500 ML IV ONE (17:00)
[2016-12-28] MEDS ORDERED: POLYETHYLENE (MIRALAX) 17 GM PACK PO PRN (17:00)
[2016-12-28] MEDS ORDERED: ALUMINUM/MAGNESIUM/SIMETH (MAALOX MAX) 30 ML UDC PO PRN (17:00)
[2016-12-28] MEDS ORDERED: MAGNESIUM HYDROXIDE SUSP 30 ML UDC PO PRN (17:00)
--- NOTE | 2016-12-28 17:13 | History and Physical ---
History & Physical Date & Time of Service: Dec 28, 2016 at 16:56 Chief Complaint: Urinary Symptoms Primary Care Physician: Nidhi Gardner MD History of Present Illness Source: patient Pt is a 86F with a PMHx of rheumatoid +osteo arthritis, diverticulitis s/p colostomy, depression with suicidal ideation, hypothyroidism, and nephrolithiasis that presents with a 3 day history of lightheadedness and fatigue. Pt reports a chronic history of UTIs, she also reports a burning sensation when she pees and mild fevers for the past two days. Patient is urge incontinence of her urine and wears depends. Pt also has a colostomy which she believes is from her diverticulitis. The patient lives alone and was brought in by her helpers. Patient uses a walker to ambulate, performs most activities of daily living with assistance. ROS: Denies chest pain, denies SOB, denies any recent falls, patient reports bilateral groin pain. PMHx: rheumatoid and osteoarthritis, diverticulitis s/p colostomy, depression, hypothyroidism, nephrolithiasis, depression. PSHx: Colectomy, cholecystectomy, bilateral hip replacement, hysterectomy. Allergies: See above. Meds: See above. SHx: Denies smoking, denies drinking. 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 Uses a walker to ambulate. Past Medical/Surgical History Medical Problems: (1) Arthritis Status: Chronic (2) Asthma Status: Chronic (3) Cholecystectomy Status: Resolved (4) Chronic back pain Status: Chronic (5) Depression Status: Chronic (6) Diverticulitis Status: Chronic (7) Gastroesophageal reflux disease Status: Chronic (8) Hyperlipidemia Status: Chronic (9) Hypothyroidism Status: Chronic (10) IBS Status: Chronic (11) Impacted cerumen Status: Chronic (12) Lupus Status: Chronic (13) Osteoarthritis Status: Chronic (14) Pituitary adenoma Status: Chronic (15) pituitary gland removal Status: Chronic (16) TIA Status: Chronic (17) Vasovagal syncope Status: Chronic Surgical Problems: (1) H/O: hysterectomy Status: Chronic (2) History of hip replacement Status: Chronic (3) Hx of cholecystectomy Status: Chronic Family History Cancer Diabetes mellitus Gallbladder disease Heart disease Hypertension Kidney disease Kidney stones Seizures Social History Smoking Status: Never Smoker Drug Use: none Marital Status: Housing status: lives alone Occupational Status: retired Immunizations History of Influenza Vaccine: N/A Influenza Vaccine Date: Jul 24, 2007 History of Tetanus Vaccine?: UTD History of Pneumococcal: Yes Pneumococcal Date: May 09, 1990 History of Hepatitis B Vaccine: Yes Hepatitis Immunization Date: May 09, 1985 Multi-Drug Resistant Organisms History of MDRO: No Allergies Coded Allergies: Ciprofloxacin (Verified Allergy, Intermediate, rash, 12/23/16) Quinolones (Verified Allergy, Intermediate, HIVES, 12/23/16) Fluticasone (Verified Allergy, Unknown, ADVAIR, 12/23/16) Lactose Intolerance (Verified Allergy, Unknown, UNKNOWN, 12/23/16) Latex1 -Allergic Contact Dermititis (Verified Allergy, Unknown, RASH, 12/23) Morphine (Verified Allergy, Unknown, HIVES, 12/23/16) Nitrofurantoin (Verified Allergy, Unknown, HIVES, 12/23/16) Salmeterol (Verified Allergy, Unknown, ADVAIR, 12/23/16) Scallop (Verified Allergy, Unknown, UNKNOWN, 12/23/16) Celecoxib (Verified Adverse Reaction, Unknown, barretts esophagus, 12/23/16 ) Home Medications Scheduled Ascorbic Acid (Ascorbic Acid), 500 MG PO DAILY Aspirin (Aspirin Ec), 81 MG PO DAILY B-Complex Vitamins (Vitamin B Complex), 1 TAB PO HS Cholecalciferol (Vitamin D-3), 2,000 UNITS PO DAILY Cyanocobalamin (Vitamin B-12), 1,000 MCG PO HS Dexlansoprazole (Dexilant), 60 MG PO BID Diclofenac Sodium (Topical) (Voltaren 1% Top Gel), 4 GM TOP QID Diltiazem Hcl Coated Beads (Cartia Xt), 180 MG PO QAM Docusate Sodium (Colace), 2 CAP PO DAILY Duloxetine Hcl (Cymbalta), 60 MG PO DAILY Duloxetine Hcl (Cymbalta), 30 MG PO DAILY Furosemide (Lasix), 40 MG PO QAM Gabapentin (Neurontin), 300 MG PO BID Hydroxychloroquine Sulfate (Plaquenil), 200 MG PO BID Levothyroxine Sodium (Synthroid), 88 MCG PO QAM Ocuvite Preservision (Ocuvite Preservision), 1 TAB PO DAILY Oxycodone HCl (Oxycontin), 1 TAB PO BID Polyethylene Glycol 3350 (Miralax), 17 GM PO BID Quetiapine Fumarate (Seroquel), 100 MG PO HS Trimethoprim (Proloprim), 100 MG PO DAILY Scheduled PRN Bisacodyl (Dulcolax), 5 MG PO DAILY PRN for Constipation Ondansetron Hcl (Zofran), 8 MG PO Q6H PRN for Nausea Review of Systems Constitutional: + fever, No chills Respiratory: No shortness of breath, No sputum, No wheezing Cardiovascular: No chest pain, No edema, No orthopnea Abdomen: + pain, No nausea, No vomiting Musculoskeletal: + joint pain Genitourinary - Female: + dysuria Endocrine: + fatigue Physical Exam Vital Signs Date Time Temp Pulse Resp B/P Pulse Ox O2 Delivery O2 Flow Rate FiO2 12/28/16 16:20 108 14 12/28/16 16:17 102/69 12/28/16 16:05 110 14 100 12/28/16 16:00 137/58 12/28/16 15:50 110 17 97 12/28/16 15:35 107 12 99 12/28/16 15:30 138/57 12/28/16 15:20 105 15 98 12/28/16 15:05 105 12 98 12/28/16 15:00 137/65 12/28/16 14:57 98/53 12/28/16 14:56 80/58 12/28/16 14:17 105 99 12/28/16 13:59 133/61 12/28/16 13:47 102 8 98 12/28/16 13:41 119/62 12/28/16 13:40 107 20 119/62 99 Room Air 12/28/16 13:18 106 12/28/16 13:17 101 10 86 12/28/16 12:47 104 11 87 12/28/16 12:17 103 10 91 12/28/16 12:12 107 12/28/16 12:11 162/75 12/28/16 11:54 36.7 110 20 132/56 92 Room Air General Appearance: WD/WN, no apparent distress Respiratory/Chest: chest non-tender, lungs clear, normal breath sounds, no respiratory distress, no accessory muscle use Cardiovascular: no edema, no gallop, no JVD, no murmur, normal peripheral pulses, + tachycardia Abdomen/GI: normal bowel sounds, non tender, soft, no organomegaly, no pulsatile mass, + pertinent finding (Tender to deep palpation in the inguinal area. Pt has a colostomy bag that is producing air. ) Back: no CVA tenderness Extremities/Musculoskelatal: normal inspection, no calf tenderness, normal capillary refill, no pedal edema, + pertinent finding (equal 5/5 power in upper and lower extremities. ) Neurologic/Psych: no motor/sensory deficits, alert, normal mood/affect, normal reflexes, oriented x 3 Skin: normal color, warm/dry Diagnostics Laboratory Results Results Past 24 Hours Test 12/28/16 12:10 12/28/16 12:30 12/28/16 16:28 Range/Units Urine Color YELLOW Urine Appearance CLEAR CLEAR Urine pH 5.5 4.5-7.5 Urine Specific [place] 1.014 1.000-1.030 Urine Protein NEG NEG Urine Glucose (UA) NEG NEG Urine Ketones NEG NEG Urine Occult Blood TRACE NEG Urine Nitrite POS NEG Urine Bilirubin NEG NEG Urine Urobilinogen NEG NEG Urine Leukocyte Esterase SMALL NEG Urine WBC (Auto) 10-30 0-5 /hpf Urine RBC (Auto) 0-4 0-4 /hpf Urine Hyaline Casts (Auto) 1-5 0-5 /lpf Urine Epithelial Cells (Auto) 5-10 0-5 /lpf Urine Bacteria (Auto) 4+ NEG Urine Renal Epithelial Cells 0-5 /lpf White Blood Count 16.72 4.8-10.8 K/uL Red Blood Count 4.48 4.2-5.4 M/uL Hemoglobin 13.3 12.0-16.0 g/dL Hematocrit 41.2 37-47 % Mean Corpuscular Volume 92.0 80-100 fL Mean Corpuscular Hemoglobin 29.7 25-34 pg Mean Corpuscular Hemoglobin Concent 32.3 32-36 g/dl Platelet Count 254 130-400 K/uL Mean Platelet Volume 10.1 7.4-10.4 fL Neutrophils (%) (Auto) 73.9 % Lymphocytes (%) (Auto) 12.0 % Monocytes (%) (Auto) 10.6 % Eosinophils (%) (Auto) 1.6 % Basophils (%) (Auto) 0.2 % Neutrophils # (Auto) 12.34 1.4-6.5 K/uL Lymphocytes # (Auto) 2.01 1.2-3.4 K/uL Monocytes # (Auto) 1.78 0.11-0.59 K/uL Eosinophils # (Auto) 0.26 0-0.5 K/uL Basophils # (Auto) 0.04 0-0.2 K/uL RDW Standard Deviation 53.8 36.4-46.3 fL RDW Coefficient of Variation 16.1 11.5-14.5 % Immature Granulocyte % (Auto) 1.7 % Immature Granulocyte # (Auto) 0.29 0.00-0.02 K/uL Prothrombin Time 10.6 9.0-12.0 SECONDS Prothromb Time International Ratio 1.0 0.9-1.1 Activated Partial Thromboplast Time 31.5 21.0-31.0 SECONDS Partial Thromboplastin Ratio 1.2 Sodium Level 139 136-145 mmol/L Potassium Level 3.2 3.5-5.1 mmol/L Chloride Level 100 98-107 mmol/L Carbon Dioxide Level 30 21-32 mmol/L Anion Gap 9.0 3-11 mmol/L Blood Urea Nitrogen 12 7-18 mg/dl Creatinine 0.93 0.60-1.20 mg/dl Est Creatinine Clear Calc Drug Dose 41.7 ml/min Estimated GFR () 65.4 Estimated GFR (Non- 56.4 BUN/Creatinine Ratio 12.9 10-20 Random Glucose 120 70-99 mg/dl Calcium Level 9.1 8.5-10.1 mg/dl Microbiology Results 12/28/16 Blood Culture, Received Pending 12/28/16 Blood Culture, Received Pending 12/28/16 Urine Culture, Received Pending Diagnostic Radiology CHEST ONE VIEW PORTABLE HISTORY: Short of breath. COMPARISON: Chest 10/28/2016. FINDINGS: The lungs are clear. Cardiac silhouette is normal in size. No pleural effusions. No pneumothorax. Incidental is made of a right azygos lobe. IMPRESSION: No significant change compared to the prior study. No acute process. HEAD CT NONCONTRAST CT DOSE: 614.27 mGy.cm HISTORY: Headache. Altered mental status. TECHNIQUE: Multiaxial CT images of the head were performed without the use of intravenous contrast. Automated exposure control was utilized for this study. Comparison: Head CT 10/28/2016. Findings: The paranasal sinuses and mastoid air cells are clear. The calvarium and skull base are intact. There is no mass, hematoma, midline shift, acute infarct. White matter hypodensity is nonspecific but suggestive of microvascular ischemic change. The ventricles and sulci demonstrate mild age-related involutional changes. Impression: No significant change compared to the prior study. No acute intracranial abnormality. EKG Sinus tachycardia Otherwise normal ECG When compared with ECG of 28-OCT-2016 13:17, No significant change was found Impression Assessment and Plan 86F presenting with a 3 day history of fevers, fatigue, lightheadedness and dysuria. Her urine dipstick was indicative of a UTI and she has had frequent UTIs in the past, she is also incontinence of her urine. Chest X-ray was normal. WBC were elevated. Urine and blood cultures were sent. Pt will be admitted for urosepsis and started on Vancomycin and a Cefepime. Lactate was 0.8 - normal. Urosepsis - Patient states that she is feeling much better at present since coming into the hospital and receiving IV antibiotics. - Pending Urine and Blood Cultures - c/w IV vanco, c/w IV Cefepime. - Follow up lactic acid. Esophageal Spasms: C/w Diltiazem. Rheumatoid and Osteo Arthritis: c/w Oxycodone 10mg BID and Plaquenil 200mg BID. GERD: c/w PPI Mood: Duloxetine 90mg daily. Diabetes Mellitus Type 2: Diet controlled, c/w Aspirin. Hypothyroid: Synthroid 88mcg. Low Potassium: KCl 20meq BID. DVT Proph: Lovenox SQ QAM Dispo: Med Surg, Regular Diet, Full Code. Resident Physician Supervision Note: I interviewed and examined the patient. Discussed with Dr. Spence and agree with findings and plan as documented in the note. Any exceptions or clarifications are listed here: None Documented By: Francisco Javier Ramirez dysuria, fatigue vitals noted breathing unlabored no pallor or icterus UTI w sepsis on admission - abx based on prior cx pending current, follow closely, supportive care. appears to be feeling better already VTE Prophylaxis VTE Risk Assessment Done? Y/N: Yes Risk Level: Moderate Resident Involvement: Resident Care Provided Care Provided: Adult Hospital Medicine
[2016-12-28] MEDS ORDERED: VANCOMYCIN INJ 700 MG in SODIUM CHLORIDE 0.9% 250ML 250 ML IV ONE (17:40)
[2016-12-28] MEDS ORDERED: PIPERACILL/TAZOBAC IV 4.5 GM in DEXTROSE 5% 100ML 100 ML IV SCH (18:00)
[2016-12-28 19:28] VITALS: Ht 160 cm; Wt 68.2 kg
[2016-12-28 19:35] VITALS: BP 113/54; PULSE 102; TEMP 37.1; O2SAT 97
[2016-12-28] MEDS: SODIUM CHLORIDE 0.9% 1000ML 1,000 ML IV SCH (19:43)
[2016-12-28] MEDS: OXYCODONE HCL 10 MG TABCR (OXYCONTIN) PO SCH (19:46)
[2016-12-28] MEDS: POTASSIUM CHLORIDE 20 MEQ TABCR PO SCH (19:47)
[2016-12-28] MEDS: HYDROXYCHLOROQUINE SULFATE 200 MG TAB PO SCH (19:47)
[2016-12-28 19:51] VITALS: O2SAT 96
[2016-12-28] MEDS: ONDANSETRON INJ 2 MG/ML 2 ML VIAL IV PRN (20:37)
[2016-12-28] MEDS ORDERED: GABAPENTIN 300 MG CAP PO SCH (21:00)
[2016-12-28 21:03] VITALS: BP 113/54; PULSE 102; TEMP 37.1
[2016-12-28] MEDS ORDERED: NURSING VERBAL MED ORDER ONE (22:00)
[2016-12-28] MEDS ORDERED: OXYCODONE/ACETAMINOPHEN 5-325 TAB PO PRN (22:15)
[2016-12-28] MEDS: QUETIAPINE FUMARATE 100 MG TAB PO SCH (22:15)
[2016-12-28] MEDS: CYANOCOBALAMIN 500 MCG TAB (VIT B-12) PO SCH (22:15)
[2016-12-29] VITALS: O2SAT 96
[2016-12-29 00:23] VITALS: BP 102/62; PULSE 100; TEMP 36.7; O2SAT 96
[2016-12-29] MEDS: SODIUM CHLORIDE 0.9% 1000ML 1,000 ML IV SCH ×3 (01:50→21:56)
[2016-12-29] MEDS: CEFEPIME IV 2000 MG in DEXTROSE 5% 100ML IV SCH ×2 (04:20→15:38)
[2016-12-29] MEDS: LEVOTHYROXINE 88 MCG TAB PO SCH (06:05)
[2016-12-29 07:36] VITALS: BP 98/61; PULSE 102; TEMP 36.9; O2SAT 94
[2016-12-29 07:37] VITALS: BP 96/60; PULSE 102; TEMP 36.7; O2SAT 93
[2016-12-29 07:54] LABS: HEMATOCRIT 35.6 % (37-47); MEAN CELL VOLUME 90.8 fL (80-100); MEAN CORPUSCULAR HEMOGLOBIN 29.1 pg (25-34); MEAN PLATELET VOLUME 9.9 fL (7.4-10.4); PLATELET COUNT 207 K/uL (130-400); RED BLOOD COUNT 3.92 M/uL (4.2-5.4); WHITE BLOOD COUNT 9.51 K/uL (4.8-10.8)
[2016-12-29 07:57] LABS: BUN/CREATININE RATIO 13.3 (10-20); CALCIUM 8.2 mg/dl (8.5-10.1); CREATININE 0.76 mg/dl (0.60-1.20); MAGNESIUM 2.1 mg/dl (1.8-2.4); POTASSIUM 3.4 mmol/L (3.5-5.1)
[2016-12-29 07:58] LABS: PHOSPHORUS 2.9 mg/dl (2.5-4.9)
[2016-12-29] MEDS: DILTIAZEM HCL 180 MG CAPCR PO SCH ×2 (08:18→08:24)
[2016-12-29] MEDS: DULOXETINE (CYMBALTA) 30 MG CAP PO SCH (08:19)
[2016-12-29] MEDS: DOCUSATE SODIUM 100 MG CAP PO SCH (08:19)
[2016-12-29] MEDS: ASPIRIN 81 MG ECTAB PO SCH (08:20)
[2016-12-29] MEDS: DULOXETINE HCL 60 MG CAP PO SCH (08:20)
[2016-12-29] MEDS: CEROVITE ADV FORMULA TAB PO SCH (08:21)
[2016-12-29] MEDS: POTASSIUM CHLORIDE 20 MEQ TABCR PO SCH ×2 (08:21→19:41)
[2016-12-29] MEDS: FUROSEMIDE 40 MG TAB PO SCH (08:21)
[2016-12-29] MEDS: OXYCODONE HCL 10 MG TABCR (OXYCONTIN) PO SCH ×2 (08:21→19:42)
[2016-12-29] MEDS: HYDROXYCHLOROQUINE SULFATE 200 MG TAB PO SCH ×2 (08:22→19:41)
[2016-12-29] MEDS: ENOXAPARIN 40 MG/0.4 ML SYR SQ SCH (08:23)
--- NOTE | 2016-12-29 10:04 | Family Medicine Progress Note ---
Progress Note Date of Service Dec 29, 2016. Subjective Pt evaluation today including: conversation w/ patient, physical exam, chart review, lab review The patient was seen and examined at bedside. No acute overnight events. Patient is resting comfortably in bed. Denies having any pain. Ambulating to the bathroom. Still reports dysuria and suprepubic tenderness. Patient is eating well. ROS: Denies fevers, chills, SOB, chest pain. Plan of care was described to the patient and all questions were answered. Constitutional: No chills, No fever, No sweats, No weight loss Respiratory: No cough, No shortness of breath, No sputum, No wheezing Cardiovascular: No chest pain, No orthopnea Abdomen: No diarrhea, No nausea, No vomiting Objective Physical Exam General Appearance: WD/WN, no apparent distress, + obese Neck: no JVD Respiratory/Chest: chest non-tender, lungs clear, normal breath sounds, no respiratory distress, no accessory muscle use Cardiovascular: regular rate, rhythm, no edema, no gallop, no JVD, no murmur Abdomen: normal bowel sounds, non tender, + pertinent finding (Pt has mild suprapubic tenderness over the abdomen, unchanged from previous day. No gaurding. ) Extremities: no pedal edema, no calf tenderness Neurologic/Psychiatric: no motor/sensory deficits, alert, normal mood/affect, oriented x 3 Assessment and Plan 86F presenting with a 3 day history of fevers, fatigue, lightheadedness and dysuria. Her urine dipstick was indicative of a UTI and she has had frequent UTIs in the past, she is also incontinent of her urine. Chest X-ray was normal. WBC were elevated. Urine and blood cultures were sent. Pt will be admitted for urosepsis and started on Vancomycin and a Cefepime. Lactate was 0.8 - normal. On Hospital Day #1, urine cultures came back for gram neg bacillia. Vancomycin was discontinued. Urosepsis Day #2 - Patient states that she is feeling much better than the previous day but still has suprapubic tenderness and dysuria. - Urine Cx: Gram Neg Bacillia and Blood Cultures still Pending. - DC vanco, c/w IV Cefepime Day #2 - Lactate WNL. Esophageal Spasms: C/w Diltiazem. Rheumatoid and Osteo Arthritis: c/w Oxycodone 10mg BID and Plaquenil 200mg BID. GERD: c/w PPI Mood: Duloxetine 90mg daily. Diabetes Mellitus Type 2: Diet controlled, c/w Aspirin. Hypothyroid: Synthroid 88mcg. Low Potassium: KCl 20meq BID. DVT Proph: Lovenox SQ QAM Dispo: Med Surg, Diabetic Diet, Full Code. Resident Physician Supervision Note: I interviewed and examined the patient. Discussed with Dr. Spence and agree with findings and plan as documented in the note. Any exceptions or clarifications are listed here: None Documented By: Francisco Javier Ramirez feeling better - still has some dysuria but less than before vitals noted nad breathing unlabored no pallor or icterus UTI w sepsis - sepsis resolved. prior MDR organisms and extensive allergies so obligated to stay on cefepime until final ID&S otherwise as above Resident Involvement: Resident Care Provided Care Provided: Adult Hospital Medicine
[2016-12-29 10:15] VITALS: O2SAT 93
[2016-12-29] MEDS ORDERED: VANCOMYCIN INJ 1,100 MG in SODIUM CHLORIDE 0.9% 250ML 250 ML IV SCH (12:00)
[2016-12-29] MEDS: ONDANSETRON INJ 2 MG/ML 2 ML VIAL IV PRN (12:28)
[2016-12-29 15:56] VITALS: BP 95/58; PULSE 104; TEMP 36.8; O2SAT 90
[2016-12-29] MEDS: CYANOCOBALAMIN 500 MCG TAB (VIT B-12) PO SCH (21:56)
[2016-12-29] MEDS: QUETIAPINE FUMARATE 100 MG TAB PO SCH (21:56)
[2016-12-30 01:38] VITALS: BP 89/56; PULSE 103; TEMP 36.6; O2SAT 99
[2016-12-30] MEDS: CEFEPIME IV 2000 MG in DEXTROSE 5% 100ML IV SCH ×2 (03:49→16:01)
[2016-12-30] MEDS: LEVOTHYROXINE 88 MCG TAB PO SCH (07:20)
[2016-12-30 07:32] LABS: HEMATOCRIT 38.6 % (37-47); MEAN CELL VOLUME 92.3 fL (80-100); MEAN CORPUSCULAR HEMOGLOBIN 29.2 pg (25-34); MEAN CORPUSCULAR HGB CONC 31.6 g/dl (32-36); MEAN PLATELET VOLUME 10.2 fL (7.4-10.4); PLATELET COUNT 227 K/uL (130-400); RED BLOOD COUNT 4.18 M/uL (4.2-5.4); WHITE BLOOD COUNT 9.07 K/uL (4.8-10.8)
[2016-12-30 08:00] VITALS: O2SAT 99
[2016-12-30] MEDS: POTASSIUM CHLORIDE 20 MEQ TABCR PO SCH (08:00)
[2016-12-30] MEDS: DOCUSATE SODIUM 100 MG CAP PO SCH (08:01)
[2016-12-30] MEDS: SODIUM CHLORIDE 0.9% 1000ML 1,000 ML IV SCH ×2 (08:01→17:35)
[2016-12-30] MEDS: ASPIRIN 81 MG ECTAB PO SCH (08:01)
[2016-12-30] MEDS: CEROVITE ADV FORMULA TAB PO SCH (08:01)
[2016-12-30] MEDS: FUROSEMIDE 40 MG TAB PO SCH (08:02)
[2016-12-30] MEDS: DULOXETINE HCL 60 MG CAP PO SCH (08:03)
[2016-12-30] MEDS: DULOXETINE (CYMBALTA) 30 MG CAP PO SCH (08:03)
[2016-12-30 08:04] LABS: BUN/CREATININE RATIO 9.2 (10-20); CALCIUM 8.3 mg/dl (8.5-10.1); CREATININE 0.91 mg/dl (0.60-1.20); MAGNESIUM 1.9 mg/dl (1.8-2.4); PHOSPHORUS 2.5 mg/dl (2.5-4.9); POTASSIUM 3.5 mmol/L (3.5-5.1)
[2016-12-30] MEDS: HYDROXYCHLOROQUINE SULFATE 200 MG TAB PO SCH ×2 (08:04→19:35)
[2016-12-30] MEDS: ENOXAPARIN 40 MG/0.4 ML SYR SQ SCH (08:04)
[2016-12-30] MEDS: OXYCODONE HCL 10 MG TABCR (OXYCONTIN) PO SCH ×2 (08:07→19:33)
[2016-12-30 08:26] VITALS: BP 151/77; PULSE 107; TEMP 36.4; O2SAT 98
--- NOTE | 2016-12-30 09:21 | DIAGNOSTIC IMAGING REPORT ---
CHEST 2 VIEWS ROUTINE HISTORY: crackles at right lung base COMPARISON: Chest 12/28/2016. FINDINGS: No pneumothorax. Incidental note is made of a right azygos lobe. Linear density at the left lung base is new and favor subsegmental atelectasis. Mild interstitial thickening is likely chronic. No evidence for pulmonary edema. Stable mild elevation of the right hemidiaphragm. Trace bilateral pleural effusions. The heart is mildly enlarged. IMPRESSION: 1. Trace bilateral pleural effusions. 2. New left basilar linear density which favor subsegmental atelectasis. 3. Mild interstitial thickening which is likely chronic. Electronically signed by: Osbaldo Washington M.D. 12/30/2016 9:20 AM Dictated Date/Time: 12/30/2016 9:19 AM
--- NOTE | 2016-12-30 10:26 | Clinical Documentation Query ---
Dr. ZAMAN, CARMITA : CLINICAL DOCUMENTATION QUERY Urosepsis is being documented in your H&P & daily progress notes. The term urosepsis is not recognized in the I10 environment. Urosepsis does NOT code to Sepsis and only codes to a simple UTI by ICD10 coding indexes. If your indent was to mean "sepsis due to UTI" please state such as your supervising physician has documented. IF IN AGREEMENT, YOU MUST DOCUMENT ABOVE DIAGNOSTIC STATEMENT IN DAILY PROGRESS NOTES AND DISCHARGE SUMMARY. This document is not part of the patient's record. Thank You, Franki Baez, RN [phone]
[2016-12-30] MEDS: ONDANSETRON INJ 2 MG/ML 2 ML VIAL IV PRN (10:59)
[2016-12-30 11:00] VITALS: BP 127/76; PULSE 107; O2SAT 97
[2016-12-30] MEDS: DILTIAZEM HCL 180 MG CAPCR PO SCH (11:08)
[2016-12-30] MEDS ORDERED: HYDROCORTISONE IV 50 MG in SYRINGE 0 ML IV ONE (11:30)
[2016-12-30] MEDS: GABAPENTIN 300 MG CAP PO SCH ×2 (11:32→20:00)
--- NOTE | 2016-12-30 15:21 | Family Medicine Progress Note ---
Progress Note Date of Service Dec 30, 2016. Subjective Pt evaluation today including: conversation w/ patient, physical exam, chart review, lab review The patient was seen and examined at bedside. In the AM patient was standing in the bathroom after voiding and experienced an episode of lightheadedness while waiting for the nurse to arrive . On review of vital signs she seems to be hypotensive. Upon further inquiry the patient had recently stopped her 5mg daily Prednisone for RA. Patient states that her joints are hurting her much more than yesterday. Chart review revealed that the patient didn't receive any doses of her Gabapentin that was ordered. This has been corrected. She also takes a daily scheduled Cardizem which she has been getting. Patient had difficulty swallowing her KCL tab, it got stuck in her throat. She says it's a very hard pill to swallow. Pt's daughter Anabella Mcconnell [phone] had concerns about the pain her mother was in. Daughter was updated with plan and was satisfied. Plan of care was described to the patient and daughter and all questions were answered. Constitutional: + weakness, No chills, No fatigue, No fever, No sweats, No weight loss Cardiovascular: No chest pain, No claudication, No edema, No palpitations, No problem reported Musculoskeletal: + joint pain Female : + dysuria (improved from yesterday) Objective Physical Exam General Appearance: WD/WN, + pertinent finding (patient felt dizzy in the AM) Respiratory/Chest: chest non-tender, normal breath sounds, no respiratory distress, no accessory muscle use, + pertinent finding (slight crackles in the lung bases) Cardiovascular: regular rate, rhythm, no edema, no gallop, no JVD, no murmur, + diastolic murmur Abdomen: normal bowel sounds, + pertinent finding (surprapubic tenderness similar to yesterday) Extremities: normal range of motion, normal inspection, no pedal edema, no calf tenderness Neurologic/Psychiatric: alert, normal mood/affect, oriented x 3 Skin: warm/dry, + pertinent finding (moist mucus membranes) Assessment and Plan 86F presenting with a 3 day history of fevers, fatigue, lightheadedness and dysuria. Her urine dipstick was indicative of a UTI and she has had frequent UTIs in the past, she is also incontinence of her urine. Chest X-ray was normal. WBC were elevated. Urine and blood cultures were sent. Pt will be admitted for urosepsis and started on Vancomycin and a Cefepime. Lactate was 0.8 - normal. Cultures came back and Vanco was discontinued. Sepsis 2/2 to UTI - Lightheadedness today likely from hypotension 2/2 steroid withdrawal and not a worsening of her primary condition. Chest X-ray was negative for intrapulmonary process. Urine cultures showed sensitivitity to Cefepime. Continue IV meds and transition to PO tomorrow for discharge. Esophageal Spasms: C/w Diltiazem 180mg daily. (Spoke with daughter, patient takes this medication as a scheduled medication and not a PRN medication) Rheumatoid and Osteo Arthritis: Pt is complaining of joint pain. c/w Oxycodone 10mg BID and Plaquenil 200mg BID. Will bolus with Corticosteroid today and restart 5mg Prednison tomorrow AM GERD: c/w PPI daily. Mood: c/w Duloxetine 90mg daily. Diabetes Mellitus Type 2: Diet controlled, c/w Aspirin. Hypothyroid: c/w Synthroid 88mcg. Low Potassium: change to KCl 10meq BID due to difficulty swallowing 20meq tablet. DVT Proph: Lovenox SQ QAM Dispo: Med Surg, Regular Diet, Full Code. Resident Physician Supervision Note: I interviewed and examined the patient. Discussed with Dr. Spence and agree with findings and plan as documented in the note. Any exceptions or clarifications are listed here: None Documented By: Francisco Javier Ramirez feeling a little weaker, had syncopal type event earlier today - see nursing notes - but after feeling weaker for a few hours now feels more baseline other than still some dysuria. notes that she was on prednisone for RA until scheduled wean/stop that occured right before admission vitals noted - see EMR. EKG without ischemia or other worrisome findings nad, breathing unlabored, no rashes no pallor or icterus weakness/low BP - appearing probalby due to steroid deficiency - had actually just been weaned off chronic steroids right before becoming septic w UTI. whether she would eventually have good adrenal response or not, right now probably has a bit of insufficiency - so for short term treat w stress dose then her previously chronic 5mg prednisone - after better from current infection can hopefully then wean again UTI w sepsis - sepsis improved. UTI improving otherwise as above Resident Involvement: Resident Care Provided Care Provided: Adult Hospital Medicine
[2016-12-30 16:10] VITALS: BP 110/64; PULSE 97; TEMP 36.7; O2SAT 93
[2016-12-30 16:15] VITALS: O2SAT 99
[2016-12-30] MEDS: POTASSIUM CHLORIDE 10 MEQ TABCR PO SCH (19:34)
[2016-12-30] MEDS: CYANOCOBALAMIN 500 MCG TAB (VIT B-12) PO SCH (21:05)
[2016-12-30] MEDS: QUETIAPINE FUMARATE 100 MG TAB PO SCH (21:05)
[2016-12-31 00:09] VITALS: BP 84/45; PULSE 102; TEMP 37; O2SAT 93
[2016-12-31] MEDS: SODIUM CHLORIDE 0.9% 1000ML 1,000 ML IV SCH ×2 (04:31→14:44)
[2016-12-31] MEDS: CEFEPIME IV 2000 MG in DEXTROSE 5% 100ML IV SCH ×2 (04:41→14:44)
[2016-12-31] MEDS: LEVOTHYROXINE 88 MCG TAB PO SCH (06:12)
[2016-12-31 06:41] LABS: HEMATOCRIT 31.5 % (37-47); MEAN CELL VOLUME 91.3 fL (80-100); MEAN CORPUSCULAR HGB CONC 31.7 g/dl (32-36); MEAN PLATELET VOLUME 9.5 fL (7.4-10.4); PLATELET COUNT 193 K/uL (130-400); RED BLOOD COUNT 3.45 M/uL (4.2-5.4); WHITE BLOOD COUNT 7.64 K/uL (4.8-10.8)
[2016-12-31 07:15] LABS: BUN/CREATININE RATIO 9.5 (10-20); CREATININE 0.86 mg/dl (0.60-1.20); MAGNESIUM 1.8 mg/dl (1.8-2.4); POTASSIUM 3.2 mmol/L (3.5-5.1)
[2016-12-31 07:16] LABS: PHOSPHORUS 2.5 mg/dl (2.5-4.9)
[2016-12-31] MEDS: POTASSIUM CHLR 10 MEQ / WTR 10 MEQ in PREMIXED WATER 100 ML IV SCH ×2 (07:53→09:12)
[2016-12-31] MEDS: HYDROXYCHLOROQUINE SULFATE 200 MG TAB PO SCH (07:54)
[2016-12-31] MEDS: ASPIRIN 81 MG ECTAB PO SCH (07:54)
[2016-12-31] MEDS: POTASSIUM CHLORIDE 10 MEQ TABCR PO SCH (07:54)
[2016-12-31] MEDS: DOCUSATE SODIUM 100 MG CAP PO SCH (07:54)
[2016-12-31] MEDS: DULOXETINE (CYMBALTA) 30 MG CAP PO SCH (07:55)
[2016-12-31] MEDS: DULOXETINE HCL 60 MG CAP PO SCH (07:55)
[2016-12-31] MEDS: CEROVITE ADV FORMULA TAB PO SCH (07:56)
[2016-12-31] MEDS: FUROSEMIDE 40 MG TAB PO SCH (07:56)
[2016-12-31] MEDS: ENOXAPARIN 40 MG/0.4 ML SYR SQ SCH (07:56)
[2016-12-31] MEDS: OXYCODONE HCL 10 MG TABCR (OXYCONTIN) PO SCH (08:03)
[2016-12-31 08:05] VITALS: BP 92/58; PULSE 90; TEMP 36.7; O2SAT 95
[2016-12-31] MEDS ORDERED: AMOX500T PO (11:58)
--- NOTE | 2016-12-31 12:05 | Discharge Instructions ---
Discharge Instructions Date of Service Dec 31, 2016. Admission Reason for Admission: Sepsis,Uti Discharge Discharge Diagnosis / Problem: Sepsis with UTI Discharge Goals Goal(s): Decrease discomfort, Improve nutritional status, Learn about illness Activity Recommendations Activity Limitations: resume your previous activity . Instructions / Follow-Up Instructions / Follow-Up Medications 1. You have been prescribed the antibiotic Cefdinir. You are to take one pill in the morning and one pill in the afternoon for the duration of your prescription. 2. You have also been Prescribed 14 days worth of Prednisone. You are to take one 5mg pill every day for the duration of the prescription. You should see your PCP in [place] (Dr. Maikel Buenrostro) before the end of your Prednisone course so he can safely monitor you while you discontinue your Prednisone. You should see your primary care doctor (Dr. Azevedo) within the next week for a routine follow up. Alarm symptoms of urinary tract infections include fevers, chills, back pain, abdominal pain and burning during urination. If you experience these symptoms you should see your PCP immediately. We recommend that you drink lots of water and continue to do so to prevent UTIs. Current Hospital Diet Patient's current hospital diet: Diabetes Type 2 Diet Discharge Diet Recommended Diet: Regular Diet Pending Studies Studies pending at discharge: no Laboratory Results Hemoglobin A1c Test 11/09/16 10:01 Range/Units Estimated Average Glucose 131 mg/dl Hemoglobin A1c 6.2 H 4.5-5.6 % Medical Emergencies . Who to Call and When: Medical Emergencies: If at any time you feel your situation is an emergency, please call 911 immediately. . Non-Emergent Contact Non-Emergency issues call your: Primary Care Provider . . "Provider Documentation" section prepared by Robinson Spence. VTE Core Measure Inpt VTE Proph given/why not?: Enoxaparin (Lovenox)SQ Resident Involvement: Resident Care Provided Care Provided: Adult Hospital Medicine
--- NOTE | 2016-12-31 12:22 | Discharge Summary ---
Discharge Summary Date of Service Dec 31, 2016. (Robinson Spence M.D.) Discharge Summary Admission Date: Dec 28, 2016 at 15:45 Discharge Date: Dec 31, 2016 Discharge Disposition: Home Principal Diagnosis: Sepsis with UTI Immunizations: Have You Had Influenza Vaccine: N/A Influenza Vaccine Date: Jul 24, 2007 History of Tetanus Vaccine?: UTD History of Pneumococcal: Yes Pneumococcal Date: May 09, 1990 History of Hepatitis B Vaccine: Yes Hepatitis Immunization Date: May 09, 1985 (Robinson Spence M.D.) Medication Reconciliation New Medications: Cefdinir (Omnicef) 300 Mg Cap 300 MG PO Q12H for 7 Days, #14 CAP Prednisone (Prednisone) 5 Mg Tab 5 MG PO DAILY for 14 Days, #14 TAB Continued Medications: Ascorbic Acid (Ascorbic Acid) 250 Mg Tab 500 MG PO DAILY Aspirin (Aspirin Ec) 81 Mg Tab 81 MG PO DAILY B-Complex Vitamins (Vitamin B Complex) 1 Tab Tab 1 TAB PO HS Bisacodyl (Dulcolax) 5 Mg Tab 5 MG PO DAILY PRN for Constipation, TAB Cholecalciferol (Vitamin D-3) 2,000 Unit Tab 2000 UNITS PO DAILY Cyanocobalamin (Vitamin B-12) 1,000 Mcg Tab 1000 MCG PO HS, TAB Dexlansoprazole (Dexilant) 60 Mg Cap 60 MG PO BID Diclofenac Sodium (Topical) (Voltaren 1% Top Gel) 1 % Gel 4 GM TOP QID MAX 16 GM DAILY TO ANY ONE AFFECTED JOINT. Diltiazem Hcl Coated Beads (Cartia Xt) 180 Mg Cap 180 MG PO QAM Docusate Sodium (Colace) 100 Mg Cap 2 CAP PO DAILY for 30 Days, #60 CAP Duloxetine Hcl (Cymbalta) 60 Mg Cap 60 MG PO DAILY TAKE ALONG WITH ONE 30MG CAPSULE TO = 90MG Duloxetine Hcl (Cymbalta) 30 Mg Cap 30 MG PO DAILY TAKE ALONG WITH ONE 60MG CAP TO = 90MG Furosemide (Lasix) 20 Mg Tab 40 MG PO QAM, TAB Gabapentin (Neurontin) 300 Mg Cap 300 MG PO BID, CAP Hydroxychloroquine Sulfate (Plaquenil) 200 Mg Tab 200 MG PO BID, TAB Levothyroxine Sodium (Synthroid) 88 Mcg Tab 88 MCG PO QAM, TAB Ocuvite Preservision (Ocuvite Preservision) 1 Tab Tab 1 TAB PO DAILY, TAB Ondansetron Hcl (Zofran) 8 Mg Tab 8 MG PO Q6H PRN for Nausea, TAB Oxycodone HCl (Oxycontin) 10 Mg Tabcr 1 TAB PO BID Polyethylene Glycol 3350 (Miralax) 1 Pow Pow 17 GM PO BID, GM Quetiapine Fumarate (Seroquel) 100 Mg Tab 100 MG PO HS, TAB Trimethoprim (Proloprim) 100 Mg Tab 100 MG PO DAILY, TAB Discharge Exam The patient was seen and examined at bedside. No acute overnight events. Patient is feeling much better today. Patient is resting comfortably in bed. Eating and urinating well. Plan of care was described to the patient and all questions were answered. ROS: Pt denies joint pain, denies dysuria, denies abdominal pain, denies fevers , denies chest pain, denies SOB. Physical Exam: General Appearance: WD/WN, no apparent distress Respiratory/Chest: chest non-tender, lungs clear, normal breath sounds, no respiratory distress, no accessory muscle use Cardiovascular: regular rate, rhythm, no edema, no gallop, no JVD, no murmur , normal peripheral pulses Abdomen / GI: normal bowel sounds, non tender, soft, no organomegaly, no pulsatile mass Extremities: normal inspection, no calf tenderness, normal capillary refill , no pedal edema Neurologic/Psychiatric: alert, normal mood/affect, normal reflexes, oriented x 3 Skin: no rash (Robinson Spence M.D.) Hospital Course 86F presenting with a 3 day history of fevers, fatigue, lightheadedness and dysuria. Her urine dipstick was indicative of a UTI and she has had frequent UTIs in the past, she is also incontinence of her urine. Chest X-ray was normal. WBC were elevated. Urine and blood cultures were sent. Pt will be admitted for urosepsis and started on Vancomycin and a Cefepime. Lactate was 0.8 - normal. Cultures came with that showed Proteus sensitive to Cefepime and Cefdinir. Patient will be discharged on a 7 day course of 300mg BID of Cefdinir . Her hospital stay was complicated by one episode of lightheaded after prolonged standing. This was attributed to hypotension from recent discontinuation of 5mg Prednisone. Patient was restarted on Prednisone and given a 14 day course of one pill 5mg daily of Prednisone on discharge. The pt informed us that she will be travelling to [place] within the next 10 days. She was instructed to follow up with her PCP (Dr. Maikel Buenrostro) for safe discontinuation of Prednisone. While in the hospital the patient was given medications to control her esophageal spams, rheumatoid arthritis, GERD, Mood, DM2 and low potassium. Patient was discharged in good condition. Total Time Spent: Greater than 30 minutes This includes examination of the patient, discharge planning, medication reconciliation, and communication with other providers. (Robinson Spence M.D.) Resident Physician Supervision Note: I interviewed and examined the patient. Discussed with [Jordy] and agree with findings and plan as documented in the note. Any exceptions or clarifications are listed here: [None] Documented By: Francisco Javier Ramirez feeling better, wants to go home. suspect that weakness was UTI/sepsis then relative adrenal insuffiiciency having just stopped her steroids (purposeful, weaned) the day prior to UTI/sepsis. now doing better. sees dr joshi for rheum , she was who was directing steroid wean vitals noted, nad, breathing unlabored, no pallor or icterus uti w sepsis cpoa - improved. finish w PO 3rd gen ceph, repeat Cx after. relative adrenal insufficiency - likely due to physiologic stress of getting septic from UTI (unfortunately) the day after stopping steroids. 5mg prednisone (previous baseline dose) for ~2wks, then f/u dr joshi to retry weaning. stable for home Total Time Spent: Less than 30 minutes (Francisco Javier Ramirez, D.O.) Discharge Instructions Please refer to the electronic Patient Visit Report (Discharge Instructions) for additional information. (Robinson Spence M.D.) Follow-Up Please follow up with your primary care provider within one week and your PCP while you are in [place] for a safe taper of your Prednisone. (Robinson Spence M.D.) Additional Copies To Nidhi Gardner MD Resident Involvement: Resident Care Provided Care Provided: Adult [facility] (Robinson Spence M.D.)
[2016-12-31] MEDS ORDERED: PRED-301 PO (13:58)
[2016-12-31] MEDS ORDERED: CEFD1CAP14 PO (13:58)
[2016-12-31 15:26] VITALS: BP 104/62; PULSE 99; TEMP 36.8; O2SAT 92
[2016-12-31] MEDS ORDERED: VANCOMYCIN TROUGH ONE (17:30)
[2017-05-18] MEDS ORDERED: CEFD1CAP14 PO (12:11)
== END 2016-12-31 18:30 | disposition home health service (06) | DRG 872 ==
LOC: ENRESERVDT → ENRESERVTM → C.EDB 11:49 → C.MS4W 15:45
PROVIDERS: ADMIT Family Medicine; ATTEND Family Medicine
DX: A41.9 Sepsis, unspecified organism (principal); N39.0 Urinary tract infection, site not specified; K57.92 Diverticulitis of intestine, part unspecified, without perforation or abscess without bleeding; E03.9 Hypothyroidism, unspecified; F32.9 Major depressive disorder, single episode, unspecified; M06.9 Rheumatoid arthritis, unspecified; Z93.3 Colostomy status; M54.9 Dorsalgia, unspecified; K21.9 Gastro-esophageal reflux disease without esophagitis; E78.5 Hyperlipidemia, unspecified; H61.20 Impacted cerumen, unspecified ear; K58.9 Irritable bowel syndrome, unspecified; Z86.73 Personal history of transient ischemic attack (TIA), and cerebral infarction without residual deficits; Z80.9 Family history of malignant neoplasm, unspecified; Z83.3 Family history of diabetes mellitus; Z84.1 Family history of disorders of kidney and ureter; Z82.49 Family history of ischemic heart disease and other diseases of the circulatory system; E87.6 Hypokalemia; E11.9 Type 2 diabetes mellitus without complications; Z79.82 Long term (current) use of aspirin; K22.4 Dyskinesia of esophagus; Z96.643 Presence of artificial hip joint, bilateral; J45.909 Unspecified asthma, uncomplicated

== ENCOUNTER → 2017-01-04 | Outpatient (CLI) | payer BC ==
[~2017-01-04] MED LIST changes: -ACET325T30 PO; +ASCO1CAP3 PO; +CEFD1CAP14 PO; +CHOL200027 PO; -CHOL400C9 PO; +CYAN100020 PO; +CYM/30 PO; +DOCU-94 PO; -DULO1CAP39 PO; +DULO60CA44 PO; +ONDA8TAB62 SL; +OXGN; -POTA10TA PO; +PRED-301 PO; +PRED10TA PO; +QUET1TAB34 PO; -QUET400T PO
== END | disposition home or self-care (01) ==
LOC: C.LABSPEC 17:26
PROVIDERS: ATTEND Family Medicine
DX: N39.0 Urinary tract infection, site not specified (principal)

== ENCOUNTER → 2017-01-07 | Outpatient (CLI) | payer BC | END | disposition home or self-care (01) | LOC: C.LABBC 11:31 | PROVIDERS: ATTEND Family Medicine | DX: E87.6 Hypokalemia (principal) ==

== ENCOUNTER → 2017-01-07 | Day surgery (SDC) | payer BC ==
[2016-12-23 10:19] VITALS: Ht 160 cm; Wt 67.3 kg
[~2017-01-07] VITALS: Ht 160 cm; Wt 67.3 kg
[~2017-01-07] MED LIST changes: +BUPIVACAINE 0.25% 2.5MG/ML PF 10 ML VIAL INFIL ONE; +CEFD300C2 PO; +CEFU1TAB35 PO; +CEFU1TAB36 PO; +CRAN405C3 PO; +DILT120C68 PO; +IOPAMIDOL INJ 61% 15 ML VIAL ONE; +LIDOCAINE HCL 1% MPF 5 ML VIAL ONE; +OMEP20CA59 PO; +PHEN-1043 PO; +TRIM100T PO; -TRIM100T20 PO; +TRIM1TAB PO
--- NOTE | 2017-01-07 14:38 | Discharge Instructions ---
Discharge Instructions Date of Service Jan 07, 2017. Visit Reason for Visit: Sacroiliitis Discharge Discharge Diagnosis / Problem: low back pain Discharge Goals Goal(s): Decrease discomfort, Improve function Activity Recommendations Activity Limitations: resume your previous activity Anesthesia . Post Anesthesia Instructions: If you have had General Anesthesia or IV Sedation: * Do not drive today. * Resume driving when surgeon permits. * Do not make important decisions or sign legal documents today. * Call surgeon for: 1. Temperature elevations greater than 101 degrees F. 2. Uncontrollable pain. 3. Excessive bleeding. 4. Persistent nausea and vomiting. 5. Medication intolerance (nausea, vomiting or rash). * For nausea and vomiting use only clear liquids such as: tea, soda, bouillon until nausea subsides, then gradually increase diet as tolerated. * If you have any concerns or questions, call your surgeon's office. If physician is unavailable and it is an emergency, call 911 or go to the nearest emergency room. . Diet Recommendations Recommended Home Diet: resume previous diet Procedures Procedures Performed: Right sacroiliac joint injection Pending Studies Studies pending at discharge: no Medical Emergencies . Who to Call and When: Medical Emergencies: If at any time you feel your situation is an emergency, please call 911 immediately. . Non-Emergent Contact Non-Emergency issues call your: Specialist . . "Provider Documentation" section prepared by Bridger Castellon.
[2017-01-07 14:42] VITALS: BP 126/71; PULSE 101; O2SAT 93
--- NOTE | 2017-01-07 14:49 | OPERATIVE REPORT ---
DATE OF OPERATION: 01/07/2017 PREOPERATIVE DIAGNOSIS: Rheumatoid arthritis with right sacroiliitis. POSTOPERATIVE DIAGNOSIS: Same. PROCEDURE: Right sacroiliac joint injection under fluoroscopic guidance. INDICATIONS: The patient is an 86-year-old white female who had difficulty with sacroiliitis. She was injected on the left side and had complete resolution of that pain. Recently, the right side has been bothering her as the left side had been previously injected with resolution of her pain and she presents today for a right SI joint injection to provide her with relief. PHYSICAL EXAMINATION: Pleasant female seated comfortably. She is tender to palpation over the left SI joints, worse with extension and she has normal lower extremity strength without focal weakness. CONSENT: Verbal and written consent was obtained from the patient. Risks and benefits were reviewed. Risks include, but are not limited to abscess and allergic reaction. She wishes to proceed. DESCRIPTION OF PROCEDURE: The patient was taken back to the special procedures room of the [facility]. She was maintained in a prone position. Backside was cleansed with Betadine x3 and a dry sterile dressing was applied. The right side was then fluoroscopically identified and the overlying skin on the right side was then anesthetized with 3 mL of lidocaine 1% with a 25-gauge 1.5-inch needle. A 25-gauge 3.5-inch spinal needle was then directed into the sacroiliac joint and Isovue 0.25 mL was injected in demonstrated intraarticular uptake entirely within the joint. She then underwent injection after negative aspiration of 40 mg of Depo-Medrol and 1.5 mL of bupivacaine 0.25%. Injection was well tolerated. DISPOSITION: 1. The patient is taken out into the discharge recovery area, where she will be discharged home once discharge criteria have been met. 2. Follow up in the [facility] office in 2-4 weeks. I attest to the content of the Intraoperative Record and any orders documented therein. Any exceptio ns are noted below.
== END | disposition home or self-care (01) ==
LOC: X.SURG 13:25
PROVIDERS: ATTEND Physical Medicine & Rehabilitation
DX: M46.1 Sacroiliitis, not elsewhere classified (principal); M06.9 Rheumatoid arthritis, unspecified; E87.6 Hypokalemia

== ENCOUNTER 2017-02-15 14:07 | Emergency (ER) | payer BC ==
[~2017-02-15] VITALS: Ht 160 cm; Wt 71.0 kg
[~2017-02-15 14:07] MED LIST changes: -ASCO1CAP3 PO; -BUPIVACAINE 0.25% 2.5MG/ML PF 10 ML VIAL INFIL ONE; -CEFD1CAP14 PO; -CEFD300C2 PO; -CEFU1TAB35 PO; -CEFU1TAB36 PO; -CRAN405C3 PO; -CYAN100020 PO; -DILT120C68 PO; -IOPAMIDOL INJ 61% 15 ML VIAL ONE; -LIDOCAINE HCL 1% MPF 5 ML VIAL ONE; -OMEP20CA59 PO; -ONDA8TAB62 SL; -OXGN; -PHEN-1043 PO; -PRED-301 PO; -PRED10TA PO; -TRIM100T PO
[2017-02-15 14:15] VITALS: TEMP 36.9; Ht 160 cm; Wt 71.0 kg
[2017-02-15] MEDS ORDERED: PRED-301 PO (14:31)
[2017-02-15] MEDS ORDERED: ASCO1CAP3 PO (14:31)
[2017-02-15] MEDS ORDERED: POLY335019 PO (14:31)
--- NOTE | 2017-02-15 14:40 | DIAGNOSTIC IMAGING REPORT ---
CHEST ONE VIEW PORTABLE CLINICAL HISTORY: Weakness, may leads. COMPARISON STUDY: 12/28/2016 FINDINGS: There is stable mild elevation/eventration of the right hemidiaphragm. The heart is at the upper limits of normal in size. There is no failure. There is no focal pulmonary consolidation. There are no pleural effusions.[ IMPRESSION: No active disease in the chest. Electronically signed by: Fredy Boyd M.D. 02/15/2017 2:38 PM Dictated Date/Time: 02/15/2017 2:38 PM
[2017-02-15 14:50] LABS: URINE APPEARANCE CLEAR (CLEAR); URINE BILIRUBIN NEG (NEG); URINE COLOR YELLOW; URINE NITRITE NEG (NEG); URINE PH 6.5 (4.5-7.5); UROBILINOGEN NEG (NEG); ZZURINE CULT IF INDIC CATH NO
[2017-02-15 14:51] LABS: BASO % 0.4 %; BASO ABS # 0.05 K/uL (0-0.2); COMPLETE YES; HEMATOCRIT 35.7 % (37-47); IG% 0.4 %; LYMPH % 15.2 %; LYMPH ABS # 1.75 K/uL (1.2-3.4); MEAN CELL VOLUME 96.5 fL (80-100); MEAN CORPUSCULAR HGB CONC 31.1 g/dl (32-36); MEAN PLATELET VOLUME 9.4 fL (7.4-10.4); MONO % 8.8 %; NEUT % 72.2 %; PLATELET COUNT 261 K/uL (130-400); WHITE BLOOD COUNT 11.49 K/uL (4.8-10.8)
[2017-02-15 14:54] LABS: MANUAL MICROSCOPIC REQUIRED? NO; REVIEW REQ? NO
[2017-02-15 15:08] LABS: ALT/SGPT 32 U/L (12-78); AST/SGOT 15 U/L (15-37); BLOOD UREA NITROGEN 12 mg/dl (7-18); BUN/CREATININE RATIO 12.3 (10-20); CALCIUM 8.8 mg/dl (8.5-10.1); CARBON DIOXIDE 34 mmol/L (21-32); CHLORIDE 102 mmol/L (98-107); GLUCOSE 99 mg/dl (70-99); SODIUM 141 mmol/L (136-145)
[2017-02-15 15:10] LABS: ALKALINE PHOSPHATASE 89 U/L (45-117)
[2017-02-15 15:52] VITALS: BP 88/42; PULSE 89; O2SAT 93
--- NOTE | 2017-02-15 20:44 | EMERGENCY ROOM VISIT NOTE ---
History Report prepared by Master: Judith Dean Under the Supervision of: Will GoelO. First contact with patient: 14:18 Chief Complaint: URINARY SYMPTOMS Stated Complaint: ILLNESS History of Present Illness The patient is an 86 year old female who presents to the Emergency Room with complaints of persistent urinary frequency starting 3 days ago. She has a history of UTI and ended a 7 day course of Bactrim 3 days ago for UTI. Since then her UTI symptoms have Resolved with the exception of urinary frequency. She reports urinary frequency, diaphoresis, chills, and weakness. She denies any dysuria, cough, rhinorrhea, sore throat, chest pain, SOB, nausea, vomiting, diarrhea, fever, or abdominal pain. She reports normal output into her ostomy. She denies having any open wounds or sores. She denies any sick contacts. She has no other complaints at this time. Source of History: patient Onset: 3 days ago Position: other (urinary) Quality: other (frequency) Timing: other (persistent) Associated Symptoms: + chills, + diaphoresis, + weakness, No SOB, No abdominal pain, No chest pain, No cough, No diarrhea, No fevers, No nausea, No sorethroat, No vomiting Note: Pt reports urinary frequency. Pt denies dysuria, rhinorrhea. Review of Systems See HPI for pertinent positives & negatives. A total of 10 systems reviewed and were otherwise negative. Past Medical & Surgical Medical Problems: (1) Ambulatory dysfunction (2) Arthritis (3) Asthma (4) Cholecystectomy (5) Chronic back pain (6) Depression (7) Diverticulitis (8) Fall from ground level (9) FUO (fever of unknown origin) (10) Gastroesophageal reflux disease (11) Generalized weakness (12) Hyperlipidemia (13) Hypothyroidism (14) IBS (15) Impacted cerumen (16) Lupus (17) Major depressive disorder, recurrent episode with anxious distress (18) Osteoarthritis (19) Pituitary adenoma (20) pituitary gland removal (21) Sepsis (22) SIRS (systemic inflammatory response syndrome) (23) TIA (24) UTI (urinary tract infection) (25) Vasovagal syncope (26) Viral syndrome Surgical Problems: (1) H/O: hysterectomy (2) History of hip replacement (3) Hx of cholecystectomy Family History Cancer Diabetes mellitus Gallbladder disease Heart disease Hypertension Kidney disease Kidney stones Seizures Social History Smoking Status: Former Smoker Alcohol Use: none Drug Use: none Marital Status: Housing Status: lives alone Occupation Status: retired Current/Historical Medications Scheduled Ascorbic Acid (Ascorbic Acid), 500 MG PO DAILY Ascorbic Acid (Vitamin C), 1 CAP PO DAILY Aspirin (Aspirin Ec), 81 MG PO DAILY B-Complex Vitamins (Vitamin B Complex), 1 TAB PO HS Cholecalciferol (Vitamin D-3), 2,000 UNITS PO DAILY Cyanocobalamin (Vitamin B-12), 1,000 MCG PO HS Dexlansoprazole (Dexilant), 60 MG PO BID Diclofenac Sodium (Topical) (Voltaren 1% Top Gel), 4 GM TOP QID Diltiazem Hcl Coated Beads (Cartia Xt), 180 MG PO QAM Docusate Sodium (Colace), 2 CAP PO DAILY Duloxetine Hcl (Cymbalta), 60 MG PO DAILY Duloxetine Hcl (Cymbalta), 30 MG PO DAILY Furosemide (Lasix), 40 MG PO QAM Gabapentin (Neurontin), 300 MG PO BID Hydroxychloroquine Sulfate (Plaquenil), 200 MG PO BID Levothyroxine Sodium (Synthroid), 88 MCG PO QAM Ocuvite Preservision (Ocuvite Preservision), 1 TAB PO DAILY Oxycodone HCl (Oxycontin), 1 TAB PO BID Polyethylene Glycol 3350 (Miralax), 17 GM PO BID Prednisone (Prednisone), 5 MG PO DAILY Quetiapine Fumarate (Seroquel), 100 MG PO HS Trimethoprim (Proloprim), 100 MG PO DAILY Scheduled PRN Bisacodyl (Dulcolax), 5 MG PO DAILY PRN for Constipation Ondansetron Hcl (Zofran), 8 MG PO Q6H PRN for Nausea Polyethylene Glycol 3350 (Miralax), 17 GM PO DAILY PRN for Constipation Allergies Coded Allergies: Ciprofloxacin (Verified Allergy, Intermediate, rash, 02/15/17) Quinolones (Verified Allergy, Intermediate, HIVES, 02/15/17) Fluticasone (Verified Allergy, Unknown, ADVAIR, 02/15/17) Lactose Intolerance (Verified Allergy, Unknown, UNKNOWN, 02/15/17) Latex1 -Allergic Contact Dermititis (Verified Allergy, Unknown, RASH, ) Morphine (Verified Allergy, Unknown, HIVES, 02/15/17) Nitrofurantoin (Verified Allergy, Unknown, HIVES, 02/15/17) Salmeterol (Verified Allergy, Unknown, ADVAIR, 02/15/17) Scallop (Verified Allergy, Unknown, UNKNOWN, 02/15/17) Celecoxib (Verified Adverse Reaction, Unknown, barretts esophagus, 02/15/17) Physical Exam Vital Signs Date Time Temp Pulse Resp B/P Pulse Ox O2 Delivery O2 Flow Rate FiO2 02/15/17 15:52 89 16 88/42 93 02/15/17 14:19 92 02/15/17 14:15 36.9 93 18 115/58 94 Room Air Physical Exam GENERAL: sitting up in bed, no acute distress, non-toxic EYE EXAM: normal conjunctiva OROPHARYNX: no exudate, no erythema, lips, buccal mucosa, and tongue normal and mucous membranes are moist NECK: supple, no nuchal rigidity, no adenopathy, non-tender LUNGS: Clear to auscultation. Normal chest wall mechanics HEART: no murmurs, S1 normal and S2 normal ABDOMEN: abdomen soft, non-tender, normo-active bowel sounds, no masses, no rebound or guarding. Ostomy in place in LLQ with full bag of brown stool. BACK: Back is symmetrical on inspection and there is no deformity, no midline tenderness, no CVA tenderness. SKIN: no rashes and no bruising UPPER EXTREMITIES: upper extremities are grossly normal. LOWER EXTREMITIES: faint pitting edema equal bilaterally. NEURO EXAM: Normal sensorium, cranial nerves II-XII grossly intact, normal speech, no gross weakness of arms, no gross weakness of legs. Medical Decision & Procedures ER Provider Diagnostic Interpretation: Xray results as stated below per my and the radiologist's interpretation: CHEST ONE VIEW PORTABLE CLINICAL HISTORY: Weakness, may leads. COMPARISON STUDY: 12/28/2016 FINDINGS: There is stable mild elevation/eventration of the right hemidiaphragm. The heart is at the upper limits of normal in size. There is no failure. There is no focal pulmonary consolidation. There are no pleural effusions.[ IMPRESSION: No active disease in the chest. Electronically signed by: Fredy Boyd M.D. 02/15/2017 2:38 PM Dictated Date/Time: 02/15/2017 2:38 PM Laboratory Results 02/15/17 14:40 Red Blood Count 3.70, Mean Corpuscular Volume 96.5, Mean Corpuscular Hemoglobin 30.0, Mean Corpuscular Hemoglobin Concent 31.1, Mean Platelet Volume 9.4, Neutrophils (%) (Auto) 72.2, Lymphocytes (%) (Auto) 15.2, Monocytes (%) (Auto) 8.8, Eosinophils (%) (Auto) 3.0, Basophils (%) (Auto) 0.4, Neutrophils # (Auto) 8.29, Lymphocytes # (Auto) 1.75, Monocytes # (Auto) 1.01, Eosinophils # (Auto) 0.34, Basophils # (Auto) 0.05 02/15/17 14:40 Test 02/15/17 14:20 02/15/17 14:40 Urine Color YELLOW Urine Appearance CLEAR (CLEAR) Urine pH 6.5 (4.5-7.5) Urine Specific Goodman 1.010 (1.000-1.030) Urine Protein NEG (NEG) Urine Glucose (UA) NEG (NEG) Urine Ketones NEG (NEG) Urine Occult Blood NEG (NEG) Urine Nitrite NEG (NEG) Urine Bilirubin NEG (NEG) Urine Urobilinogen NEG (NEG) Urine Leukocyte Esterase NEG (NEG) Urine WBC (Auto) 1-5 /hpf (0-5) Urine RBC (Auto) 0-4 /hpf (0-4) Urine Hyaline Casts (Auto) 0 /lpf (0-5) Urine Epithelial Cells (Auto) 5-10 /lpf (0-5) Urine Bacteria (Auto) NEG (NEG) White Blood Count 11.49 K/uL (4.8-10.8) Red Blood Count 3.70 M/uL (4.2-5.4) Hemoglobin 11.1 g/dL (12.0-16.0) Hematocrit 35.7 % (37-47) Mean Corpuscular Volume 96.5 fL (80-100) Mean Corpuscular Hemoglobin 30.0 pg (25-34) Mean Corpuscular Hemoglobin Concent 31.1 g/dl (32-36) Platelet Count 261 K/uL (130-400) Mean Platelet Volume 9.4 fL (7.4-10.4) Neutrophils (%) (Auto) 72.2 % Lymphocytes (%) (Auto) 15.2 % Monocytes (%) (Auto) 8.8 % Eosinophils (%) (Auto) 3.0 % Basophils (%) (Auto) 0.4 % Neutrophils # (Auto) 8.29 K/uL (1.4-6.5) Lymphocytes # (Auto) 1.75 K/uL (1.2-3.4) Monocytes # (Auto) 1.01 K/uL (0.11-0.59) Eosinophils # (Auto) 0.34 K/uL (0-0.5) Basophils # (Auto) 0.05 K/uL (0-0.2) RDW Standard Deviation 52.8 fL (36.4-46.3) RDW Coefficient of Variation 15.1 % (11.5-14.5) Immature Granulocyte % (Auto) 0.4 % Immature Granulocyte # (Auto) 0.05 K/uL (0.00-0.02) Anion Gap 5.0 mmol/L (3-11) Est Creatinine Clear Calc Drug Dose 39.6 ml/min Estimated GFR () 59.9 Estimated GFR (Non- 51.7 BUN/Creatinine Ratio 12.3 (10-20) Calcium Level 8.8 mg/dl (8.5-10.1) Total Bilirubin 0.4 mg/dl (0.2-1) Direct Bilirubin < 0.1 mg/dl (0-0.2) Aspartate Amino Transf (AST/SGOT) 15 U/L (15-37) Alanine Aminotransferase (ALT/SGPT) 32 U/L (12-78) Alkaline Phosphatase 89 U/L (45-117) Total Protein 6.3 gm/dl (6.4-8.2) Albumin 3.1 gm/dl (3.4-5.0) Lipase 75 U/L (73-393) Laboratory results per my review. ED Course ED COURSE: Vital signs were reviewed and showed normal vitals. The patients medical record was reviewed The above diagnostic studies were performed and reviewed. ED treatments and interventions as stated above. 1421: The patient was evaluated in room A10. A complete history and physical examination was performed. 1514: Upon reevaluation, the patient is resting comfortably. She still believes she has a UTI. Care management is speaking with her. 1520: Upon reevaluation, the patient is resting comfortably. I discussed my findings with the patient and she understands and agrees with the treatment plan. Based on the patients age, coexisting illnesses, exam and lab findings the decision to treat as an outpatient was made. The patient remained stable while under my care. The patient appeared well at the time of discharge. Medical Decision Differential Diagnosis includes but is not limited to dehydration, stroke, anemia, hypoglycemia, hyponatremia, hypernatremia, urinary tract infection, pneumonia, bronchitis, sepsis, gastroenteritis, additional abdominal pathology, metabolic abnormalities and infections. Patient is an 86-year-old female who presents the ER for urinary frequency associated with diffuse weakness and feeling hot and cold. She notes that she was recently treated for UTI with Bactrim for 7 days and she finished her course 3 days ago. Patient has no abdominal pain. Benign abdominal exam. Straight cath shows a normal UA. No signs of infection. Labs show a mild leukocytosis of 11.4 thousand. BMP along with LFTs, bilirubin and lipase was unremarkable. UA was negative. Chest x-ray was unremarkable. Patient was updated in regards to findings. She requested antibiotics but felt this was unreasonable with negative UA. No fevers. Heart rate was normal. Recommended culture for UA and having her follow-up with her PCP. No signs of sepsis or pylo. Discussed with Pt concerning signs and symptoms to watch out for. Pt was instructed to follow up with their PCP and discussed with the patient their option to return to the ED at anytime for persistent or worsening symptoms. The appropriate anticipatory guidance and out-patient management, including indications for return to the emergency department, were explained at length to the patient and understood. Impression Primary Impression: Symptoms involving urinary system Additional Impression: Chronic anemia Scribe Attestation The scribe's documentation has been prepared under my direction and personally reviewed by me in its entirety. I confirm that the note above accurately reflects all work, treatment, procedures, and medical decision making performed by me. Departure Information Dispostion Home / Self-Care Referrals Nidhi Gardner MD (PCP) Forms HOME CARE DOCUMENTATION FORM, IMPORTANT VISIT INFORMATION Patient Instructions ED Weakness Diann WARD [facility] Additional Instructions Please follow up with your primary care doctor with in the next 24 hours. Any worsening of your symptoms, please return to the ED immediately. This includes fevers greater than 100.4, new burning with urination, passing out, chest pain, shortness breath, or any other concerning signs or symptoms from your standpoint. Please follow up with your urologist in the next 1-2 days. Problem Qualifiers
[2017-05-18] MEDS ORDERED: CEFD1CAP14 PO (12:11)
== END 2017-02-15 15:53 | disposition home or self-care (01) ==
LOC: EDBD 14:07 → C.EDA 14:10
DX: R35.0 Frequency of micturition (principal); D64.9 Anemia, unspecified; Z87.440 Personal history of urinary (tract) infections; M19.90 Unspecified osteoarthritis, unspecified site; F32.9 Major depressive disorder, single episode, unspecified; K57.92 Diverticulitis of intestine, part unspecified, without perforation or abscess without bleeding; K21.9 Gastro-esophageal reflux disease without esophagitis; R53.1 Weakness; E78.5 Hyperlipidemia, unspecified; E03.9 Hypothyroidism, unspecified; K58.9 Irritable bowel syndrome, unspecified; Z86.73 Personal history of transient ischemic attack (TIA), and cerebral infarction without residual deficits; Z80.9 Family history of malignant neoplasm, unspecified; Z83.3 Family history of diabetes mellitus; Z82.49 Family history of ischemic heart disease and other diseases of the circulatory system; Z84.1 Family history of disorders of kidney and ureter; Z83.79 Family history of other diseases of the digestive system; Z87.891 Personal history of nicotine dependence; Z79.82 Long term (current) use of aspirin; Z79.899 Other long term (current) drug therapy

== ENCOUNTER 2017-03-10 10:05 | Emergency (ER) | payer BC ==
[~2017-03-10] VITALS: Ht 160 cm; Wt 72.7 kg
[~2017-03-10 10:05] MED LIST changes: +ASCO1CAP3 PO; +PRED-301 PO
[2017-03-10 10:12] VITALS: TEMP 37.4; Ht 160 cm; Wt 72.7 kg
[2017-03-10 10:13] VITALS: O2SAT 94
[2017-03-10] MEDS ORDERED: SODIUM CHLORIDE 0.9% 1000ML 1,000 ML IV STA (10:34)
[2017-03-10] MEDS ORDERED: OXGN (10:44)
[2017-03-10] MEDS ORDERED: ONDA8TAB62 SL (10:44)
[2017-03-10 11:05] LABS: BASO % 0.4 %; BASO ABS # 0.04 K/uL (0-0.2); COMPLETE YES; EOS % 1.9 %; HEMATOCRIT 34.6 % (37-47); IG% 0.5 %; LYMPH % 15.8 %; LYMPH ABS # 1.79 K/uL (1.2-3.4); MEAN CELL VOLUME 95.8 fL (80-100); MEAN CORPUSCULAR HEMOGLOBIN 28.8 pg (25-34); MEAN CORPUSCULAR HGB CONC 30.1 g/dl (32-36); MEAN PLATELET VOLUME 9.2 fL (7.4-10.4); MONO % 14.1 %; NEUT % 67.3 %; PLATELET COUNT 266 K/uL (130-400); RED BLOOD COUNT 3.61 M/uL (4.2-5.4); WHITE BLOOD COUNT 11.34 K/uL (4.8-10.8)
[2017-03-10 11:15] LABS: INR 1.1 (0.9-1.1); PARTIAL THROMBOPLASTIN RATIO 1.2; PROTHROMBIN TIME (PATIENT) 11.4 SECONDS (9.0-12.0)
[2017-03-10 11:23] LABS: ALT/SGPT 16 U/L (12-78); AST/SGOT 13 U/L (15-37); BLOOD UREA NITROGEN 8 mg/dl (7-18); BUN/CREATININE RATIO 7.6 (10-20); CALCIUM 8.3 mg/dl (8.5-10.1); CARBON DIOXIDE 32 mmol/L (21-32); CHLORIDE 103 mmol/L (98-107); GLUCOSE 97 mg/dl (70-99); MAGNESIUM 2.3 mg/dl (1.8-2.4); POTASSIUM 4.2 mmol/L (3.5-5.1); SODIUM 141 mmol/L (136-145)
--- NOTE | 2017-03-10 11:24 | DIAGNOSTIC IMAGING REPORT ---
CHEST ONE VIEW PORTABLE CLINICAL HISTORY: Weakness. Altered mental status. COMPARISON STUDY: Chest radiograph February 15, 2017. FINDINGS: Patient is rotated. An azygos fissure is noted. Hazy right paratracheal opacity is unchanged since earlier exams. There is no consolidation to suggest pneumonia and there is no evidence of pulmonary edema. IMPRESSION: No acute cardiopulmonary findings. No change in appearance of the chest. Electronically signed by: Anjel Encarnacion M.D. 03/10/2017 11:23 AM Dictated Date/Time: 03/10/2017 11:18 AM
[2017-03-10 11:31] LABS: ALKALINE PHOSPHATASE 82 U/L (45-117); CKMB/CK RATIO 2.2 (0-3.0)
[2017-03-10 11:48] LABS: URINE APPEARANCE CLEAR (CLEAR); URINE BILIRUBIN NEG (NEG); URINE COLOR YELLOW; URINE NITRITE NEG (NEG); URINE SPECIFIC GRAVITY 1.016 (1.000-1.030); UROBILINOGEN NEG (NEG); ZZURINE CULT IF INDIC CATH NO
[2017-03-10 11:54] LABS: MANUAL MICROSCOPIC REQUIRED? NO; REVIEW REQ? NO
--- NOTE | 2017-03-10 12:50 | EMERGENCY ROOM VISIT NOTE ---
History Report prepared by Master: Kristopher Garcia Under the Supervision of: Dr. Enmanuel Montes De Oca D.O. First contact with patient: 10:22 Chief Complaint: BACK PAIN Stated Complaint: BACK PAIN History of Present Illness The patient is a 86 year old female who presents to the Emergency Room with complaints of worsened lower back pain that began yesterday. She presents to the ED with her [facility] acute care physical therapist. The patient reports the pain as a 10 /10 in severity. The patient states that she lives on her own, but her children hired a [facility] caregiver about a year ago when she was bedridden. The patient reports that [facility] acute care physical therapist was able to help her eventually ambulate with therapy. The acute care physical therapist states that the patient started to have worsened back pain starting yesterday. She also reports that the patient had a fever, chills, and was experiencing diaphoresis last night. The patient states that this morning she was not able to speak when she woke up. The acute care physical therapist denies that the patient used her oxygen this morning or took her pills. The acute care physical therapist also reports that patient has had a loss of appetite, has been lethargic, and has been in and out of consciousness. The patient denies feeling any pain similar to this before. She reports that she had two injections in the last month for her back pain and only the first injection relieved her pain. The patient admits that she takes Oxycodone for the pain. She also admits that she has had a history of urinary tract infections. The patient states that she also has had a swelling and pain in her legs that began two weeks prior to arrival. She denies any cough or cold. Source of History: patient, caregiver ([facility] ) Onset: yesterday Position: back (lower) Symptom Intensity: 10/10 Timing: worsening Modifying Factors (Relieving): other (back injections) Associated Symptoms: + LOC, + chills, + diaphoresis, + fevers, No cough Note: Associated symptoms include: dysphasia and loss of appetite. Review of Systems See HPI for pertinent positives & negatives. A total of 10 systems reviewed and were otherwise negative. Past Medical & Surgical Medical Problems: (1) Ambulatory dysfunction (2) Arthritis (3) Asthma (4) Cholecystectomy (5) Chronic back pain (6) Depression (7) Diverticulitis (8) Fall from ground level (9) FUO (fever of unknown origin) (10) Gastroesophageal reflux disease (11) Generalized weakness (12) Hyperlipidemia (13) Hypothyroidism (14) IBS (15) Impacted cerumen (16) Lupus (17) Major depressive disorder, recurrent episode with anxious distress (18) Osteoarthritis (19) Pituitary adenoma (20) pituitary gland removal (21) Sepsis (22) SIRS (systemic inflammatory response syndrome) (23) TIA (24) UTI (urinary tract infection) (25) Vasovagal syncope (26) Viral syndrome Surgical Problems: (1) H/O: hysterectomy (2) History of hip replacement (3) Hx of cholecystectomy Family History Cancer Diabetes mellitus Gallbladder disease Heart disease Hypertension Kidney disease Kidney stones Seizures Social History Smoking Status: Former Smoker Alcohol Use: none Drug Use: none Marital Status: Housing Status: lives alone Occupation Status: retired Current/Historical Medications Scheduled Ascorbic Acid (Ascorbic Acid), 500 MG PO DAILY Aspirin (Aspirin Ec), 81 MG PO DAILY B-Complex Vitamins (Vitamin B Complex), 1 TAB PO HS Cholecalciferol (Vitamin D-3), 2,000 UNITS PO DAILY Dexlansoprazole (Dexilant), 60 MG PO BID Diclofenac Sodium (Topical) (Voltaren 1% Top Gel), 4 GM TOP QID Diltiazem Hcl Coated Beads (Cartia Xt), 180 MG PO QAM Docusate Sodium (Colace), 200 MG PO DAILY Duloxetine Hcl (Cymbalta), 60 MG PO DAILY Duloxetine Hcl (Cymbalta), 30 MG PO DAILY Furosemide (Lasix), 40 MG PO QAM Gabapentin (Neurontin), 300 MG PO TID Levothyroxine Sodium (Synthroid), 88 MCG PO QAM Ocuvite Preservision (Ocuvite Preservision), 1 TAB PO DAILY Oxycodone HCl (Oxycontin), 10 MG PO BID Oxygen (Oxygen), 3 LITERS NA PRN Prednisone (Prednisone), 5 MG PO DAILY Quetiapine Fumarate (Seroquel), 100 MG PO HS Trimethoprim (Proloprim), 100 MG PO DAILY Scheduled PRN Bisacodyl (Dulcolax), 5 MG PO DAILY PRN for Constipation Ondansetron Odt (Zofran Odt), 8 MG SL Q6H PRN for Nausea Polyethylene Glycol 3350 (Miralax), 17 GM PO DAILY PRN for Constipation Allergies Coded Allergies: Ciprofloxacin (Verified Allergy, Intermediate, rash, 03/10/17) Quinolones (Verified Allergy, Intermediate, HIVES, 03/10/17) Fluticasone (Verified Allergy, Unknown, ADVAIR, 03/10/17) Lactose Intolerance (Verified Allergy, Unknown, UNKNOWN, 03/10/17) Latex1 -Allergic Contact Dermititis (Verified Allergy, Unknown, RASH, 03/10) Morphine (Verified Allergy, Unknown, HIVES, 03/10/17) Nitrofurantoin (Verified Allergy, Unknown, HIVES, 03/10/17) Salmeterol (Verified Allergy, Unknown, ADVAIR, 03/10/17) Scallop (Verified Allergy, Unknown, UNKNOWN, 03/10/17) Celecoxib (Verified Adverse Reaction, Unknown, barretts esophagus, 03/10/17 ) Physical Exam Vital Signs Date Time Temp Pulse Resp B/P Pulse Ox O2 Delivery O2 Flow Rate FiO2 03/10/17 11:15 103 18 100/54 94 Nasal Cannula 2.0 03/10/17 10:17 106 03/10/17 10:13 94 Nasal Cannula 2.0 03/10/17 10:13 94 Nasal Cannula 2.0 03/10/17 10:12 37.4 106 18 106/48 83 Room Air Physical Exam CONSTITUTIONAL/VITAL SIGNS: Reviewed / noted above. GENERAL: Non-toxic in appearance. INTEGUMENTARY: Warm, dry, and [place]. HEAD: Normocephalic. EYES: without scleral icterus or trauma. ENT/OROPHARYNX: clear and moist. LYMPHADENOPATHY/NECK: Is supple without lymphadenopathy or meningismus. RESPIRATORY: Lungs clear and equal. Diminished breath sounds bilaterally. CARDIOVASCULAR: Regular rate and rhythm. GI/ABDOMEN: Soft and nontender. No organomegaly or pulsatile mass. No rebound or guarding. Normal bowel sounds. EXTREMITIES: Warm and well perfused. BACK: No CVA tenderness. Chronic discomfort with sitting up. NEUROLOGICAL: Intact without focal deficits. Somewhat drowsy but responds to verbal stimuli and opens eyes spontaneously. PSYCHIATRIC: normal affect. MUSCULOSKELETAL: Normally developed with good muscle tone. Generalized weakness. Medical Decision & Procedures ER Provider Diagnostic Interpretation: X ray results and stated below per my interpretation and radiology interpretation. CHEST ONE VIEW PORTABLE CLINICAL HISTORY: Weakness. Altered mental status. COMPARISON STUDY: Chest radiograph February 15, 2017. FINDINGS: Patient is rotated. An azygos fissure is noted. Hazy right paratracheal opacity is unchanged since earlier exams. There is no consolidation to suggest pneumonia and there is no evidence of pulmonary edema. IMPRESSION: No acute cardiopulmonary findings. No change in appearance of the chest. Electronically signed by: Anjel Encarnacion M.D. 03/10/2017 11:23 AM Dictated Date/Time: 03/10/2017 11:18 AM Laboratory Results 03/10/17 10:54 Red Blood Count 3.61, Mean Corpuscular Volume 95.8, Mean Corpuscular Hemoglobin 28.8, Mean Corpuscular Hemoglobin Concent 30.1, Mean Platelet Volume 9.2, Neutrophils (%) (Auto) 67.3, Lymphocytes (%) (Auto) 15.8, Monocytes (%) (Auto) 14.1, Eosinophils (%) (Auto) 1.9, Basophils (%) (Auto) 0.4, Neutrophils # (Auto ) 7.64, Lymphocytes # (Auto) 1.79, Monocytes # (Auto) 1.60, Eosinophils # (Auto ) 0.21, Basophils # (Auto) 0.04 03/10/17 10:54 Test 03/10/17 10:54 03/10/17 11:24 White Blood Count 11.34 K/uL (4.8-10.8) Red Blood Count 3.61 M/uL (4.2-5.4) Hemoglobin 10.4 g/dL (12.0-16.0) Hematocrit 34.6 % (37-47) Mean Corpuscular Volume 95.8 fL (80-100) Mean Corpuscular Hemoglobin 28.8 pg (25-34) Mean Corpuscular Hemoglobin Concent 30.1 g/dl (32-36) Platelet Count 266 K/uL (130-400) Mean Platelet Volume 9.2 fL (7.4-10.4) Neutrophils (%) (Auto) 67.3 % Lymphocytes (%) (Auto) 15.8 % Monocytes (%) (Auto) 14.1 % Eosinophils (%) (Auto) 1.9 % Basophils (%) (Auto) 0.4 % Neutrophils # (Auto) 7.64 K/uL (1.4-6.5) Lymphocytes # (Auto) 1.79 K/uL (1.2-3.4) Monocytes # (Auto) 1.60 K/uL (0.11-0.59) Eosinophils # (Auto) 0.21 K/uL (0-0.5) Basophils # (Auto) 0.04 K/uL (0-0.2) RDW Standard Deviation 52.0 fL (36.4-46.3) RDW Coefficient of Variation 14.7 % (11.5-14.5) Immature Granulocyte % (Auto) 0.5 % Immature Granulocyte # (Auto) 0.06 K/uL (0.00-0.02) Prothrombin Time 11.4 SECONDS (9.0-12.0) Prothromb Time International Ratio 1.1 (0.9-1.1) Activated Partial Thromboplast Time 32.2 SECONDS (21.0-31.0) Partial Thromboplastin Ratio 1.2 Anion Gap 6.0 mmol/L (3-11) Est Creatinine Clear Calc Drug Dose 36.4 ml/min Estimated GFR () 53.4 Estimated GFR (Non- 46.1 BUN/Creatinine Ratio 7.6 (10-20) Calcium Level 8.3 mg/dl (8.5-10.1) Magnesium Level 2.3 mg/dl (1.8-2.4) Total Bilirubin 0.4 mg/dl (0.2-1) Direct Bilirubin < 0.1 mg/dl (0-0.2) Aspartate Amino Transf (AST/SGOT) 13 U/L (15-37) Alanine Aminotransferase (ALT/SGPT) 16 U/L (12-78) Alkaline Phosphatase 82 U/L (45-117) Total Creatine Kinase 46 U/L (26-192) Creatine Kinase MB 1.0 ng/ml (0.5-3.6) Creatine Kinase MB Ratio 2.2 (0-3.0) Troponin I 0.021 ng/ml (0-0.045) Total Protein 5.8 gm/dl (6.4-8.2) Albumin 2.8 gm/dl (3.4-5.0) Lipase 54 U/L (73-393) Thyroid Stimulating Hormone (TSH) 1.140 uIu/ml (0.300-4.500) Urine Color YELLOW Urine Appearance CLEAR (CLEAR) Urine pH 7.0 (4.5-7.5) Urine Specific [place] 1.016 (1.000-1.030) Urine Protein NEG (NEG) Urine Glucose (UA) NEG (NEG) Urine Ketones NEG (NEG) Urine Occult Blood NEG (NEG) Urine Nitrite NEG (NEG) Urine Bilirubin NEG (NEG) Urine Urobilinogen NEG (NEG) Urine Leukocyte Esterase NEG (NEG) Urine WBC (Auto) 1-5 /hpf (0-5) Urine RBC (Auto) 5-10 /hpf (0-4) Urine Hyaline Casts (Auto) 1-5 /lpf (0-5) Urine Epithelial Cells (Auto) 5-10 /lpf (0-5) Urine Bacteria (Auto) NEG (NEG) Laboratory results as stated above per my review. Medications Administered Medications (Trade) Dose Ordered Sig/Taye Route Start Time Stop Time Status Last Admin Dose Admin Sodium Chloride (Nss 1000ml) 1,000 ml @ 150 mls/hr Q6H40M STAT IV 03/10/17 10:34 03/10/17 17:13 03/10/17 11:33 150 MLS/HR ECG Indication: back/shoulder pain Rate (beats per minute): 104 Rhythm: sinus tachycardia Findings: no acute ischemic change, no ectopy ED Course 1025: Previous medical records were reviewed. The patient was evaluated in room B02. A complete history and physical examination was performed. 1034: Sodium Chloride 1000 ml @ 150 mls/hr IV. 1204: I reevaluated the patient and she is doing well. I also discussed the patient's case with her daughter on the phone. 1220: On reevaluation, the patient is doing well. I discussed the results and findings with the patient. She verbalized agreement of the treatment plan. She was discharged home. Medical Decision Blood pressure Screening: Patient was found to have normal blood pressure on screening and does not require follow-up. Medication Reconciliation: I attest that I have personally reviewed the patient' s current medication list. Differential includes acute coronary syndrome, myocardial infarction, CVA, TIA, anemia, infection, pneumonia, UTI, pyelonephritis, poor nutrition, dehydration, electrolyte disturbance,hypoglycemia. Impression Primary Impression: Drowsiness Additional Impressions: Chronic low back pain COPD (chronic obstructive pulmonary disease) Scribe Attestation The scribe's documentation has been prepared under my direction and personally reviewed by me in its entirety. I confirm that the note above accurately reflects all work, treatment, procedures, and medical decision making performed by me. Departure Information Dispostion Home / Self-Care Referrals Nidhi Gardner MD (PCP) Patient Instructions My [facility] Additional Instructions Follow-up with your doctor for further care and evaluation in 1-2 days. Return to the emergency department for worsening or new symptoms or any concerns. You have been examined and treated today on an emergency basis only. This is not a substitute for, or an effort to provide, complete comprehensive medical care. It is impossible to recognize and treat all injuries or illnesses in a single emergency department visit. It is therefore important that you follow up closely with your doctor. Call as soon as possible for an appointment. Use your oxygen at all times unless you have a pulse ox showing that your oxygen is above 90%. Avoid excessive use of oxycodone for your back pain. This may cause excessive drowsiness. Problem Qualifiers
[2017-03-10 13:43] VITALS: BP 115/47; PULSE 88; O2SAT 93
[2017-05-18] MEDS ORDERED: CEFD1CAP14 PO (12:11)
== END 2017-03-10 13:45 | disposition home or self-care (01) ==
LOC: EDBD 10:05 → C.EDB 10:06
DX: M54.5 Low back pain (principal); G89.29 Other chronic pain; R40.0 Somnolence; J44.9 Chronic obstructive pulmonary disease, unspecified; M19.90 Unspecified osteoarthritis, unspecified site; J45.909 Unspecified asthma, uncomplicated; Z90.49 Acquired absence of other specified parts of digestive tract; F32.9 Major depressive disorder, single episode, unspecified; K21.9 Gastro-esophageal reflux disease without esophagitis; E78.5 Hyperlipidemia, unspecified; E03.9 Hypothyroidism, unspecified; K58.9 Irritable bowel syndrome, unspecified; M32.9 Systemic lupus erythematosus, unspecified; Z86.73 Personal history of transient ischemic attack (TIA), and cerebral infarction without residual deficits; Z87.440 Personal history of urinary (tract) infections; Z90.710 Acquired absence of both cervix and uterus; Z96.649 Presence of unspecified artificial hip joint; Z80.9 Family history of malignant neoplasm, unspecified; Z83.3 Family history of diabetes mellitus; Z82.49 Family history of ischemic heart disease and other diseases of the circulatory system; Z84.1 Family history of disorders of kidney and ureter; Z82.0 Family history of epilepsy and other diseases of the nervous system; Z87.891 Personal history of nicotine dependence; Z79.82 Long term (current) use of aspirin; Z79.899 Other long term (current) drug therapy

== ENCOUNTER → 2017-05-13 | Outpatient (CLI) | payer BC ==
[~2017-05-13] MED LIST changes: -ASCO1CAP3 PO; +CEFD1CAP14 PO; +CYAN100020 PO; -CYAN10005 PO; -ONDA8TAB6 PO; +ONDA8TAB62 SL; +OXGN; +PRED10TA PO; +TRIM100T20 PO; -TRIM1TAB PO
[2017-05-13 14:47] LABS: BASO % 0.5 %; BASO ABS # 0.07 K/uL (0-0.2); COMPLETE YES; EOS % 1.3 %; HEMATOCRIT 42.9 % (37-47); IG% 1.7 %; LYMPH % 10.1 %; LYMPH ABS # 1.52 K/uL (1.2-3.4); MEAN CELL VOLUME 94.5 fL (80-100); MEAN CORPUSCULAR HEMOGLOBIN 29.3 pg (25-34); MEAN PLATELET VOLUME 10.2 fL (7.4-10.4); NEUT % 76.4 %; PLATELET COUNT 298 K/uL (130-400); RED BLOOD COUNT 4.54 M/uL (4.2-5.4); WHITE BLOOD COUNT 15.06 K/uL (4.8-10.8)
[2017-05-13 15:02] LABS: ALT/SGPT 28 U/L (12-78); AST/SGOT 12 U/L (15-37)
== END | disposition home or self-care (01) ==
LOC: C.LAB1850 12:36
PROVIDERS: ATTEND Internal Medicine Rheumatology
DX: R76.8 Other specified abnormal immunological findings in serum (principal)

== ENCOUNTER 2017-05-16 21:50 | Inpatient (IN) | payer BC, OTHER ==
[~2017-05-16] VITALS: Ht 160 cm; Wt 71.8 kg
[~2017-05-16 21:50] MED LIST changes: -CEFD1CAP14 PO; -CYAN100020 PO; -HYDR200T5 PO; -PRED10TA PO; +SODIUM CHLORIDE 0.9% 1000ML 1,000 ML IV SCH
[2017-05-16 22:01] LABS: BASO % 0.2 %; BASO ABS # 0.02 K/uL (0-0.2); COMPLETE YES; EOS % 1.1 %; HEMATOCRIT 35.7 % (37-47); IG% 0.9 %; LYMPH % 16.1 %; LYMPH ABS # 2.03 K/uL (1.2-3.4); MEAN CELL VOLUME 93.2 fL (80-100); MEAN CORPUSCULAR HEMOGLOBIN 29.5 pg (25-34); MEAN CORPUSCULAR HGB CONC 31.7 g/dl (32-36); MEAN PLATELET VOLUME 10.1 fL (7.4-10.4); MONO % 9.7 %; PLATELET COUNT 242 K/uL (130-400); RED BLOOD COUNT 3.83 M/uL (4.2-5.4); WHITE BLOOD COUNT 12.62 K/uL (4.8-10.8)
--- NOTE | 2017-05-16 22:05 | DIAGNOSTIC IMAGING REPORT ---
HEAD CT NONCONTRAST CT DOSE: 623.48 mGy.cm HISTORY: Stroke symptoms. TECHNIQUE: Multiaxial CT images of the head were performed without the use of intravenous contrast. Automated exposure control was utilized for this study. A dose lowering technique was utilized adhering to the principles of ALARA. Comparison: Head CT 12/28/2016. Findings: The paranasal sinuses and mastoid air cells are clear. The calvarium and skull base are intact. The ventricles and sulci are within normal limits. There is no mass, hematoma, midline shift, or acute infarct. Impression: No acute intracranial abnormality. Electronically signed by: Osbaldo Washington M.D. 05/16/2017 10:04 PM Dictated Date/Time: 05/16/2017 10:00 PM
[2017-05-16 22:19] LABS: INR 0.9 (0.9-1.1); PROTHROMBIN TIME (PATIENT) 10.1 SECONDS (9.0-12.0)
[2017-05-16 22:28] LABS: BLOOD UREA NITROGEN 21 mg/dl (7-18); BUN/CREATININE RATIO 17.5 (10-20); CALCIUM 8.8 mg/dl (8.5-10.1); CARBON DIOXIDE 30 mmol/L (21-32); CHLORIDE 105 mmol/L (98-107); GLUCOSE 179 mg/dl (70-99); SODIUM 143 mmol/L (136-145)
[2017-05-16] MEDS ORDERED: PRED10TA PO (22:32)
[2017-05-16] MEDS ORDERED: CYAN100020 PO (22:32)
[2017-05-16] MEDS ORDERED: HYDR200T5 PO (22:32)
[2017-05-16] MEDS ORDERED: CEFD1CAP14 PO (22:32)
[2017-05-16 22:33] LABS: CKMB/CK RATIO 2.6 (0-3.0)
[2017-05-16] MEDS ORDERED: OPTIRAY 320 IV PRN (23:45)
[2017-05-16 23:59] LABS: THYROID STIMULATING HORMONE 0.891 uIu/ml (0.300-4.500)
[2017-05-17] VITALS (8 sets, daily range): BP systolic 100–116; BP diastolic 53–71; PULSE 81–93; TEMP 36.4–36.9; O2SAT 94–100; Ht 160 cm; Wt 71.8 kg
--- NOTE | 2017-05-17 00:19 | EMERGENCY ROOM VISIT NOTE ---
History Report prepared by Master: Lynne Nieto Under the Supervision of: Dr. Luis Vines M.D. First contact with patient: 21:47 Stated Complaint: STROKE ALERT History of Present Illness The patient is an 86 year old female who presents to the Emergency Room with complaints of an episode of stroke like symptoms starting two hours ago. The caregiver reported that the patient wasn't feeling well all day. The patient's caregiver states that she noticed that the patient was having difficulty talking and was slurring her speech. She notes that she has had numbness on the left side of her face. EMS reports that the daughter confirmed that she was having slurred speech. They state that the patient seemed to have a facial droop and generalized weakness in her lower extremities. Source of History: patient Onset: two hours ago Position: other (global) Quality: other (global) Timing: other (episode) Associated Symptoms: + numbness Note: The patient was having difficulty speaking and slurred speech. Review of Systems All systems have been listed, reviewed, and are negative other than those previously mentioned. Please see Additional Medical History Sheet. Past Medical & Surgical Medical Problems: (1) Ambulatory dysfunction (2) Arthritis (3) Asthma (4) Cholecystectomy (5) Chronic back pain (6) Depression (7) Diverticulitis (8) Fall from ground level (9) FUO (fever of unknown origin) (10) Gastroesophageal reflux disease (11) Generalized weakness (12) Hyperlipidemia (13) Hypothyroidism (14) IBS (15) Impacted cerumen (16) Lupus (17) Major depressive disorder, recurrent episode with anxious distress (18) Osteoarthritis (19) Pituitary adenoma (20) pituitary gland removal (21) Sepsis (22) SIRS (systemic inflammatory response syndrome) (23) TIA (24) UTI (urinary tract infection) (25) Vasovagal syncope (26) Viral syndrome Surgical Problems: (1) H/O: hysterectomy (2) History of hip replacement (3) Hx of cholecystectomy Family History Cancer Diabetes mellitus Gallbladder disease Heart disease Hypertension Kidney disease Kidney stones Seizures Social History Smoking Status: Former Smoker Alcohol Use: none Drug Use: none Marital Status: Housing Status: lives alone Occupation Status: retired Current/Historical Medications Scheduled Ascorbic Acid (Ascorbic Acid), 500 MG PO DAILY Aspirin (Aspirin Ec), 81 MG PO DAILY B-Complex Vitamins (Vitamin B Complex), 1 TAB PO HS Cefdinir (Omnicef), 300 MG PO Q12H Cholecalciferol (Vitamin D-3), 2,000 UNITS PO DAILY Cyanocobalamin (Vitamin B12), 1,000 MCG PO HS Dexlansoprazole (Dexilant), 60 MG PO BID Diltiazem Hcl Coated Beads (Cartia Xt), 180 MG PO QAM Duloxetine Hcl (Cymbalta), 60 MG PO DAILY Duloxetine Hcl (Cymbalta), 30 MG PO DAILY Furosemide (Lasix), 40 MG PO QAM Gabapentin (Neurontin), 300 MG PO TID Home O2 Therapy (Oxygen), 3 LITERS NA PRN Hydroxychloroquine Sulfate (Plaquenil), 200 MG PO BID Levothyroxine Sodium (Synthroid), 88 MCG PO QAM Ocuvite Preservision (Ocuvite Preservision), 1 TAB PO DAILY Oxycodone HCl (Oxycontin), 10 MG PO BID Polyethylene Glycol 3350 (Miralax), 17 GM PO BID Prednisone Tab (Prednisone), 10 MG PO DAILY Quetiapine Fumarate (Seroquel), 100 MG PO HS Trimethoprim (Proloprim), 100 MG PO DAILY Scheduled PRN Bisacodyl (Dulcolax), 5 MG PO DAILY PRN for Constipation Diclofenac Sodium (Topical) (Voltaren 1% Top Gel), 4 GM TOP QID PRN for Pain Docusate Sodium (Colace), 200 MG PO DAILY PRN for Constipation Ondansetron Odt (Zofran Odt), 8 MG SL Q6H PRN for Nausea Allergies Coded Allergies: Ciprofloxacin (Verified Allergy, Intermediate, rash, 05/16/17) Quinolones (Verified Allergy, Intermediate, HIVES, 05/16/17) Fluticasone (Verified Allergy, Unknown, ADVAIR, 05/16/17) Lactose Intolerance (Verified Allergy, Unknown, UNKNOWN, 05/16/17) Latex1 -Allergic Contact Dermititis (Verified Allergy, Unknown, RASH, ) Morphine (Verified Allergy, Unknown, HIVES, 05/16/17) Nitrofurantoin (Verified Allergy, Unknown, HIVES, 05/16/17) Salmeterol (Verified Allergy, Unknown, ADVAIR, 05/16/17) Scallop (Verified Allergy, Unknown, UNKNOWN, 05/16/17) Celecoxib (Verified Adverse Reaction, Unknown, barretts esophagus, 05/16/17) Physical Exam Vital Signs Date Time Temp Pulse Resp B/P (MAP) Pulse Ox O2 Delivery O2 Flow Rate FiO2 05/17/17 01:30 81 19 99/53 99 05/17/17 01:27 115/50 05/17/17 01:25 84 21 98 05/17/17 01:20 82 20 99 05/17/17 01:15 81 23 117/52 99 05/17/17 01:10 90 24 90 05/17/17 01:05 87 15 99 05/17/17 01:00 83 14 87/52 96 05/17/17 00:52 83 16 82/54 95 Nasal Cannula 2.0 05/17/17 00:16 85 20 108/58 93 Nasal Cannula 2.0 05/16/17 23:12 87 18 105/50 95 Nasal Cannula 2.0 05/16/17 22:35 88 16 95 Nasal Cannula 2.0 05/16/17 22:30 124/51 88 Room Air 05/16/17 22:20 88 16 93 Room Air 05/16/17 22:15 128/54 05/16/17 22:07 91 05/16/17 22:05 91 25 96 Room Air 05/16/17 21:59 127/54 05/16/17 21:50 36.4 89 18 127/59 94 Room Air 05/16/17 21:50 94 Room Air Physical Exam GENERAL: Patient awake, alert, oriented x 3. Patient follows commands. Patient does not appear toxic. Patient is adequately hydrated and well- nourished. SKIN: No erythema, pallor, cyanosis or rash HEENT: Normal head, pupils equal, reactive to light and accommodation. Extraocular movements intact. Patient has some right facial weakness. Ears normal. Oral cavity and posterior pharynx appear normal. Neck: Without adenopathy, no neck vein distention. LUNGS: Clear to auscultation. No wheezes, no rales, no rhonchi. HEART: No murmurs. No gallops. No rubs ABDOMEN: Colostomy mid left abdomen. Nontender.No masses, no rebound, no hepatomegaly or splenomegaly. EXTREMITIES: No signs of trauma or infection. No pedal or pretibial edema. No calf or thigh tenderness. NEUROLOGIC: NIH score is a 2. Cranial nerves II-XII within normal limits. No gross motor sensory function deficits. Medical Decision & Procedures ER Provider Diagnostic Interpretation: Radiology results as stated below per my review and radiologist interpretation: HEAD CT NONCONTRAST CT DOSE: 623.48 mGy.cm HISTORY: Stroke symptoms. TECHNIQUE: Multiaxial CT images of the head were performed without the use of intravenous contrast. Automated exposure control was utilized for this study. A dose lowering technique was utilized adhering to the principles of ALARA. Comparison: Head CT 12/28/2016. Findings: The paranasal sinuses and mastoid air cells are clear. The calvarium and skull base are intact. The ventricles and sulci are within normal limits. There is no mass, hematoma, midline shift, or acute infarct. Impression: No acute intracranial abnormality. Electronically signed by: Osbaldo Washington M.D. 05/16/2017 10:04 PM Dictated Date/Time: 05/16/2017 10:00 PM CTA HEAD: No significant stenosis, thrombosis, aneurysm or dissection. No midline shift or hydrocephalus. No acute intracranial hemorrhage. No mass or mass effect or suicidal effacement. Radiologist: Vin Quiles M.D. Study ready at 00:16 and initial results transmitted at 00:47. CTA NECK: Diminutive right vertebral artery, probably developmental. No significant stenosis, thrombosis, aneurysm or dissection. No mass or adenopathy. No airway narrowing. Visualized upper lungs are unremarkable except note of an azygos lobe and fissure. CHEST X-RAY: Findings: The results were interpreted by me. Questionable increased markings. Compared to 03/10/2017 there is no significant change. It will be reread by a radiologist. Laboratory Results 05/16/17 21:51 Red Blood Count 3.83, Mean Corpuscular Volume 93.2, Mean Corpuscular Hemoglobin 29.5, Mean Corpuscular Hemoglobin Concent 31.7, Mean Platelet Volume 10.1, Neutrophils (%) (Auto) 72.0, Lymphocytes (%) (Auto) 16.1, Monocytes (%) (Auto) 9.7, Eosinophils (%) (Auto) 1.1, Basophils (%) (Auto) 0.2, Neutrophils # (Auto) 9.09, Lymphocytes # (Auto) 2.03, Monocytes # (Auto) 1.23, Eosinophils # (Auto) 0.14, Basophils # (Auto) 0.02 05/16/17 21:51 Test 05/16/17 21:51 05/16/17 22:04 05/16/17 22:12 05/17/17 01:15 White Blood Count 12.62 K/uL (4.8-10.8) Red Blood Count 3.83 M/uL (4.2-5.4) Hemoglobin 11.3 g/dL (12.0-16.0) Hematocrit 35.7 % (37-47) Mean Corpuscular Volume 93.2 fL (80-100) Mean Corpuscular Hemoglobin 29.5 pg (25-34) Mean Corpuscular Hemoglobin Concent 31.7 g/dl (32-36) Platelet Count 242 K/uL (130-400) Mean Platelet Volume 10.1 fL (7.4-10.4) Neutrophils (%) (Auto) 72.0 % Lymphocytes (%) (Auto) 16.1 % Monocytes (%) (Auto) 9.7 % Eosinophils (%) (Auto) 1.1 % Basophils (%) (Auto) 0.2 % Neutrophils # (Auto) 9.09 K/uL (1.4-6.5) Lymphocytes # (Auto) 2.03 K/uL (1.2-3.4) Monocytes # (Auto) 1.23 K/uL (0.11-0.59) Eosinophils # (Auto) 0.14 K/uL (0-0.5) Basophils # (Auto) 0.02 K/uL (0-0.2) RDW Standard Deviation 52.7 fL (36.4-46.3) RDW Coefficient of Variation 15.6 % (11.5-14.5) Immature Granulocyte % (Auto) 0.9 % Immature Granulocyte # (Auto) 0.11 K/uL (0.00-0.02) Prothrombin Time 10.1 SECONDS (9.0-12.0) Prothromb Time International Ratio 0.9 (0.9-1.1) Activated Partial Thromboplast Time 26.2 SECONDS (21.0-31.0) Partial Thromboplastin Ratio 1.0 Anion Gap 8.0 mmol/L (3-11) Est Creatinine Clear Calc Drug Dose 33.4 ml/min Estimated GFR () 48.1 Estimated GFR (Non- 41.5 BUN/Creatinine Ratio 17.5 (10-20) Calcium Level 8.8 mg/dl (8.5-10.1) Total Creatine Kinase 61 U/L (26-192) Creatine Kinase MB 1.6 ng/ml (0.5-3.6) Creatine Kinase MB Ratio 2.6 (0-3.0) Troponin I < 0.015 ng/ml (0-0.045) Thyroid Stimulating Hormone (TSH) 0.891 uIu/ml (0.300-4.500) Bedside Glucose 134 mg/dl (70-90) Bedside Prothrombin Time INR 0.9 (0.9-1.1) Urine Color YELLOW Urine Appearance CLEAR (CLEAR) Urine pH 7.5 (4.5-7.5) Urine Specific [place] > 1.045 (1.000-1.030) Urine Protein NEG (NEG) Urine Glucose (UA) NEG (NEG) Urine Ketones NEG (NEG) Urine Occult Blood NEG (NEG) Urine Nitrite NEG (NEG) Urine Bilirubin NEG (NEG) Urine Urobilinogen NEG (NEG) Urine Leukocyte Esterase MODERATE (NEG) Urine WBC (Auto) 10-30 /hpf (0-5) Urine RBC (Auto) 0-4 /hpf (0-4) Urine Hyaline Casts (Auto) 0 /lpf (0-5) Urine Epithelial Cells (Auto) >30 /lpf (0-5) Urine Bacteria (Auto) 4+ (NEG) Urine Renal Epithelial Cells /lpf (0-5) Laboratory results as stated above per my review. Medications Administered Medications (Trade) Dose Ordered Sig/Taye Route Start Time Stop Time Status Last Admin Dose Admin Sodium Chloride 1,000 ml @ 50 mls/hr Q20H IV 05/16/17 21:47 06/15/17 21:46 05/16/17 22:30 50 MLS/HR Sodium Chloride 1,000 ml @ 500 mls/hr Q2H STAT IV 05/17/17 00:51 05/17/17 02:50 05/17/17 00:55 500 MLS/HR ECG Indication: weakness Rate (beats per minute): 88 Rhythm: normal sinus Findings: no acute ischemic change, no ectopy ED Course 2145: Past medical records reviewed. The patient was evaluated in room B1. A complete history and physical examination was performed. 2146: Ordered NSS 1000 ml @ 50 mls/hr IV. 2215: Discussed the patient's case with Dr. Ford. The patient will be evaluated by him. 2323: I discussed the case with Dr. Ford again. He suggested a CT of the head and neck, a urinalysis, and that the patient be admitted for further evaluation. 0009: I reevaluated the patient and she states that she feels the same. She states that she thinks she can tolerate the oral contrast. 0049: I reevaluated the patient and she is sleeping. Her blood pressure is low, but her daughter says that she normally has low blood pressure. 0051: Ordered NSS 1000 ml @ 500 mls/hr IV. 0100: Discussed the patient's case with Dr. Hobbs. The patient will be evaluated for further management. Medical Decision Differential diagnoses include TIA, CVA, metabolic disorder, infection. The patient arrived here promptly 2 hours after others around her noted some slurred speech and questionable facial droop. The patient herself feels that her speech is different. The patient has no obvious neuro deficits. The stroke order set was used. Patient was also evaluated by the stroke neurologist from [facility]. The patient's NIH stroke score is low. Patient does not meet criteria for TPA. The patient will require further evaluation in the hospital. CT and CTA head and neck were obtained. Multiple labs were also obtained. Please see above. White count is slightly elevated. The patient does have evidence of urinary tract infection although I do not know if this is anything due with her current symptoms. Chest x-ray appears to be the same as it was in the past. I discussed care with the patient, her daughter and the hospitalist. Medication Reconcilliation Current Medication List: was personally reviewed by me Blood Pressure Screening Patient's blood pressure: Low blood pressure The patient's low blood pressure will be further monitored by the hospitalist. Consults Time Called: 2205 Consulting Physician: Dr. Ford- [facility] Returned Call: [phone] Discussed the patient's case with Dr. Ford. The patient will be evaluated by him. Additional Consults: Time Called: 53 Consulted Physician: Dr. Hobbs Returned Call: 010 Additional Comments: Discussed the patient's case with Dr. Hobbs. The patient will be evaluated for further management. Impression Primary Impression: Stroke-like symptoms Additional Impression: UTI (urinary tract infection) Scribe Attestation The scribe's documentation has been prepared under my direction and personally reviewed by me in its entirety. I confirm that the note above accurately reflects all work, treatment, procedures, and medical decision making performed by me. Departure Information Dispostion Being Evaluated By Hospitalist Referrals Nidhi Gardner MD (PCP) Problem Qualifiers
[2017-05-17] MEDS ORDERED: SODIUM CHLORIDE 0.9% 1000ML 1,000 ML IV STA (00:51)
[2017-05-17 01:28] LABS: URINE APPEARANCE CLEAR (CLEAR); URINE BILIRUBIN NEG (NEG); URINE COLOR YELLOW; URINE EPITHELIAL CELL AUTO >30 /lpf (0-5); URINE NITRITE NEG (NEG); URINE PH 7.5 (4.5-7.5); URINE SPECIFIC GRAVITY > 1.045 (1.000-1.030); UROBILINOGEN NEG (NEG); ZZUR CULT IF INDIC CLEAN CATCH YES
[2017-05-17 01:39] LABS: MANUAL MICROSCOPIC REQUIRED? NO; REVIEW REQ? YES
[2017-05-17] MEDS ORDERED: PHARMACIST DISCHARGE MED REC CONSULT PRN (02:00)
[2017-05-17] MEDS ORDERED: ONDANSETRON 8MG OD TAB SL PRN (02:00)
[2017-05-17] MEDS ORDERED: DOCUSATE SODIUM 100 MG CAP PO PRN (02:00)
[2017-05-17] MEDS ORDERED: BISACODYL 5 MG TABEC PO PRN (02:00)
[2017-05-17] MEDS ORDERED: ACETAMINOPHEN 325 MG TAB PO PRN (02:15)
[2017-05-17] MEDS ORDERED: ALUMINUM/MAGNESIUM/SIMETH (MAALOX MAX) 30 ML UDC PO PRN (02:15)
[2017-05-17] MEDS ORDERED: MAGNESIUM HYDROXIDE SUSP 30 ML UDC PO PRN (02:15)
[2017-05-17] MEDS ORDERED: ONDANSETRON INJ 2 MG/ML 2 ML VIAL IV PRN (02:15)
[2017-05-17 02:37] LABS: ALLEN TEST POS (POS); ARTERIAL BLOOD GAS BASE EXCESS 1.2 mEq/L (-9-1.8); ARTERIAL BLOOD GAS HCO3 28 mmol/L (19-24); ARTERIAL BLOOD GAS PO2 137 mm/Hg (80-95); ARTERIAL BLOOD GAS pH 7.31 (7.35-7.45); O2 ADMINISTRATION 2L
--- NOTE | 2017-05-17 02:49 | History and Physical ---
History & Physical Date & Time of Service: May 17, 2017 at 02:19 Chief Complaint: Stroke Alert Primary Care Physician: Nidhi Gardner MD History of Present Illness Source: family 86 y/o F Hx RA, hypothyroidism, chronic UTIs, diverticulitis with colostomy. Pt was complaining of feeling generally ill and weak today. She then developed slurred speech that she noticed when talking to her daughter on the phone. She presented to the ER as a stroke alert and underwent evaluation for a CVA including a telemed consult, CTA of the head neck in addition to a CT head. Results have thus far been negative for any abnormalities. She had not complained of CP, SOB, fevers, rigors, N/V/D. The pt is somnolent at the time of evaluation. She is very hard to wake up and her daughter states that this does happen on occasion. She was able to answer some questions earlier, however, I could not obtain any information from her directly and her neuro exam is limited as a result. Initial labs reveal a + UA and leukocytosis. She is afebrile. Past Medical/Surgical History Medical Problems: (1) Arthritis Status: Chronic (2) Asthma Status: Chronic (3) Cholecystectomy Status: Resolved (4) Chronic back pain Status: Chronic (5) Depression Status: Chronic (6) Diverticulitis Status: Chronic (7) Gastroesophageal reflux disease Status: Chronic (8) Hyperlipidemia Status: Chronic (9) Hypothyroidism Status: Chronic (10) IBS Status: Chronic (11) Impacted cerumen Status: Chronic (12) Lupus Status: Chronic (13) Osteoarthritis Status: Chronic (14) Pituitary adenoma Status: Chronic (15) pituitary gland removal Status: Chronic (16) TIA Status: Chronic (17) Vasovagal syncope Status: Chronic Surgical Problems: (1) H/O: hysterectomy Status: Chronic (2) History of hip replacement Status: Chronic (3) Hx of cholecystectomy Status: Chronic Family History Cancer Diabetes mellitus Gallbladder disease Heart disease Hypertension Kidney disease Kidney stones Seizures Social History Smoking Status: Former Smoker Drug Use: none Marital Status: Housing status: lives alone Occupational Status: retired Immunizations History of Influenza Vaccine: N/A Influenza Vaccine Date: Jul 24, 2007 History of Tetanus Vaccine?: UTD History of Pneumococcal: Yes Pneumococcal Date: May 09, 1990 History of Hepatitis B Vaccine: Yes Hepatitis Immunization Date: May 09, 1985 Multi-Drug Resistant Organisms History of MDRO: No Allergies Coded Allergies: Ciprofloxacin (Verified Allergy, Intermediate, rash, 05/16/17) Quinolones (Verified Allergy, Intermediate, HIVES, 05/16/17) Fluticasone (Verified Allergy, Unknown, ADVAIR, 05/16/17) Lactose Intolerance (Verified Allergy, Unknown, UNKNOWN, 05/16/17) Latex1 -Allergic Contact Dermititis (Verified Allergy, Unknown, RASH, ) Morphine (Verified Allergy, Unknown, HIVES, 05/16/17) Nitrofurantoin (Verified Allergy, Unknown, HIVES, 05/16/17) Salmeterol (Verified Allergy, Unknown, ADVAIR, 05/16/17) Scallop (Verified Allergy, Unknown, UNKNOWN, 05/16/17) Celecoxib (Verified Adverse Reaction, Unknown, barretts esophagus, 05/16/17) Home Medications Scheduled Ascorbic Acid (Ascorbic Acid), 500 MG PO DAILY Aspirin (Aspirin Ec), 81 MG PO DAILY B-Complex Vitamins (Vitamin B Complex), 1 TAB PO HS Cefdinir (Omnicef), 300 MG PO Q12H Cholecalciferol (Vitamin D-3), 2,000 UNITS PO DAILY Cyanocobalamin (Vitamin B12), 1,000 MCG PO HS Dexlansoprazole (Dexilant), 60 MG PO BID Diltiazem Hcl Coated Beads (Cartia Xt), 180 MG PO QAM Duloxetine Hcl (Cymbalta), 60 MG PO DAILY Duloxetine Hcl (Cymbalta), 30 MG PO DAILY Furosemide (Lasix), 40 MG PO QAM Gabapentin (Neurontin), 300 MG PO TID Home O2 Therapy (Oxygen), 3 LITERS NA PRN Hydroxychloroquine Sulfate (Plaquenil), 200 MG PO BID Levothyroxine Sodium (Synthroid), 88 MCG PO QAM Ocuvite Preservision (Ocuvite Preservision), 1 TAB PO DAILY Oxycodone HCl (Oxycontin), 10 MG PO BID Polyethylene Glycol 3350 (Miralax), 17 GM PO BID Prednisone Tab (Prednisone), 10 MG PO DAILY Quetiapine Fumarate (Seroquel), 100 MG PO HS Trimethoprim (Proloprim), 100 MG PO DAILY Scheduled PRN Bisacodyl (Dulcolax), 5 MG PO DAILY PRN for Constipation Diclofenac Sodium (Topical) (Voltaren 1% Top Gel), 4 GM TOP QID PRN for Pain Docusate Sodium (Colace), 200 MG PO DAILY PRN for Constipation Ondansetron Odt (Zofran Odt), 8 MG SL Q6H PRN for Nausea Review of Systems cannnot obtain from pt - brought in for weakness, slurred speech Physical Exam Vital Signs Date Time Temp Pulse Resp B/P (MAP) Pulse Ox O2 Delivery O2 Flow Rate FiO2 05/17/17 02:05 86 18 98 05/17/17 02:04 83 05/17/17 02:00 85 19 109/55 98 05/17/17 01:55 80 13 98 05/17/17 01:50 80 14 98 05/17/17 01:45 81 14 91/59 97 05/17/17 01:40 81 16 98 05/17/17 01:35 81 13 98 05/17/17 01:30 81 19 99/53 99 05/17/17 01:27 115/50 05/17/17 01:25 84 21 98 05/17/17 01:20 82 20 99 05/17/17 01:15 81 23 117/52 99 05/17/17 01:10 90 24 90 05/17/17 01:05 87 15 99 05/17/17 01:00 83 14 87/52 96 05/17/17 00:52 83 16 82/54 95 Nasal Cannula 2.0 05/17/17 00:16 85 20 108/58 93 Nasal Cannula 2.0 05/16/17 23:12 87 18 105/50 95 Nasal Cannula 2.0 05/16/17 22:35 88 16 95 Nasal Cannula 2.0 05/16/17 22:30 124/51 88 Room Air 05/16/17 22:20 88 16 93 Room Air 05/16/17 22:15 128/54 05/16/17 22:07 91 05/16/17 22:05 91 25 96 Room Air 05/16/17 21:59 127/54 05/16/17 21:50 36.4 89 18 127/59 94 Room Air 05/16/17 21:50 94 Room Air General Appearance: + pertinent finding (Somnolent, overweight, elderly female - responds to tactile stim only) Diagnostics Laboratory Results Results Past 24 Hours Test 05/16/17 21:51 05/16/17 22:04 05/16/17 22:12 05/17/17 01:15 Range/Units White Blood Count 12.62 4.8-10.8 K/uL Red Blood Count 3.83 4.2-5.4 M/uL Hemoglobin 11.3 12.0-16.0 g/dL Hematocrit 35.7 37-47 % Mean Corpuscular Volume 93.2 80-100 fL Mean Corpuscular Hemoglobin 29.5 25-34 pg Mean Corpuscular Hemoglobin Concent 31.7 32-36 g/dl Platelet Count 242 130-400 K/uL Mean Platelet Volume 10.1 7.4-10.4 fL Neutrophils (%) (Auto) 72.0 % Lymphocytes (%) (Auto) 16.1 % Monocytes (%) (Auto) 9.7 % Eosinophils (%) (Auto) 1.1 % Basophils (%) (Auto) 0.2 % Neutrophils # (Auto) 9.09 1.4-6.5 K/uL Lymphocytes # (Auto) 2.03 1.2-3.4 K/uL Monocytes # (Auto) 1.23 0.11-0.59 K/uL Eosinophils # (Auto) 0.14 0-0.5 K/uL Basophils # (Auto) 0.02 0-0.2 K/uL RDW Standard Deviation 52.7 36.4-46.3 fL RDW Coefficient of Variation 15.6 11.5-14.5 % Immature Granulocyte % (Auto) 0.9 % Immature Granulocyte # (Auto) 0.11 0.00-0.02 K/uL Prothrombin Time 10.1 9.0-12.0 SECONDS Prothromb Time International Ratio 0.9 0.9-1.1 Activated Partial Thromboplast Time 26.2 21.0-31.0 SECONDS Partial Thromboplastin Ratio 1.0 Sodium Level 143 136-145 mmol/L Potassium Level 4.0 3.5-5.1 mmol/L Chloride Level 105 98-107 mmol/L Carbon Dioxide Level 30 21-32 mmol/L Anion Gap 8.0 3-11 mmol/L Blood Urea Nitrogen 21 7-18 mg/dl Creatinine 1.20 0.60-1.20 mg/dl Est Creatinine Clear Calc Drug Dose 33.4 ml/min Estimated GFR () 48.1 Estimated GFR (Non- 41.5 BUN/Creatinine Ratio 17.5 10-20 Random Glucose 179 70-99 mg/dl Calcium Level 8.8 8.5-10.1 mg/dl Total Creatine Kinase 61 26-192 U/L Creatine Kinase MB 1.6 0.5-3.6 ng/ml Creatine Kinase MB Ratio 2.6 0-3.0 Troponin I < 0.015 0-0.045 ng/ml Thyroid Stimulating Hormone (TSH) 0.891 0.300-4.500 uIu/ml Bedside Glucose 134 70-90 mg/dl Bedside Prothrombin Time INR 0.9 0.9-1.1 Urine Color YELLOW Urine Appearance CLEAR CLEAR Urine pH 7.5 4.5-7.5 Urine Specific [place] > 1.045 1.000-1.030 Urine Protein NEG NEG Urine Glucose (UA) NEG NEG Urine Ketones NEG NEG Urine Occult Blood NEG NEG Urine Nitrite NEG NEG Urine Bilirubin NEG NEG Urine Urobilinogen NEG NEG Urine Leukocyte Esterase MODERATE NEG Urine WBC (Auto) 10-30 0-5 /hpf Urine RBC (Auto) 0-4 0-4 /hpf Urine Hyaline Casts (Auto) 0 0-5 /lpf Urine Epithelial Cells (Auto) >30 0-5 /lpf Urine Bacteria (Auto) 4+ NEG Urine Renal Epithelial Cells 0-5 /lpf Test 05/17/17 02:15 Range/Units Microbiology Results 05/17/17 Urine Culture, Received Pending Diagnostic Radiology CT head, CTA head/neck - no acute abnormalities Normal EKG Impression Assessment and Plan 86 y/o F Hx RA, hypothyroidism, chronic UTIs, diverticulitis with colostomy. Pt was complaining of feeling generally ill and weak today. She then developed slurred speech that she noticed when talking to her daughter on the phone. She presented to the ER as a stroke alert and underwent evaluation for a CVA including a telemed consult, CTA of the head/neck in addition to a CT head. Results have thus far been negative for any abnormalities. She had not complained of CP, SOB, fevers, rigors, N/V/D. The pt is somnolent at the time of evaluation. I could not obtain any information from her directly and her neuro exam is limited as a result. Initial labs reveal a + UA and leukocytosis. She is afebrile. 1) Weakness - likely due to a UTI - most recent micro was + for pansensitive Klebs. Pt started on Ceftriaxone pending culture results 2) Slurred speech - CVA workup in progress - admitted with protocol - was evaluated by telestroke on arrival - low suspicion as imaging is thus far negative - provided with ASA and Statin pending AM MRI 3) Altered mentation/ somnolence - suspected due to UTI although daughter states she can be very hard to wake up - will check ABG for C02 level 4) Hypothyroidism - cont Synthroid - TSH is WNL on admission 5) RA - pt is on Prednisone chronically - consider stress dose if there is evidence of significant bacteremia - vitas have been stable Full code - Heparin prophylaxis Total time for this admit including review of labs, meds, EKG, imaging - discussion with pt's daughter and ER attending - 40 min Level of Care Telemetry Resuscitation Status FULL RESUSCITATION VTE Prophylaxis VTE Risk Assessment Done? Y/N: Yes Risk Level: Moderate Given or contraindicated: Unfractionated heparin SQ
[2017-05-17] MEDS ORDERED: SODIUM CHLORIDE 0.9% 1000ML 1,000 ML IV SCH (03:00)
[2017-05-17] MEDS: CEFTRIAXONE SOD INJ 1 GM in DEXTROSE 5% ADD-VANTAGE 50ML 50 ML IV SCH (04:24)
[2017-05-17] MEDS: LEVOTHYROXINE 88 MCG TAB PO SCH (06:35)
[2017-05-17] MEDS: HEPARIN SOD 5000 UNIT/0.5 ML CARP SQ SCH ×3 (06:36→21:44)
--- NOTE | 2017-05-17 06:56 | DIAGNOSTIC IMAGING REPORT ---
CHEST ONE VIEW PORTABLE CLINICAL HISTORY: CVA symptoms COMPARISON STUDY: Chest radiograph March 10, 2017. FINDINGS: There is no pneumothorax or pleural effusion. There is an azygous fissure. There is no consolidation to suggest pneumonia. Mild left basilar opacity suggest atelectasis. There is pulmonary vascular congestion without overt pulmonary edema. Cardiomediastinal silhouette is stable. IMPRESSION: Pulmonary vascular congestion without overt pulmonary edema. Electronically signed by: Anjel Encarnacion M.D. 05/17/2017 6:55 AM Dictated Date/Time: 05/17/2017 6:53 AM
--- NOTE | 2017-05-17 07:22 | DIAGNOSTIC IMAGING REPORT ---
CT ANGIOGRAPHY HEAD CT DOSE: 508.55 mGy.cm CLINICAL HISTORY: Stroke TECHNIQUE: The patient was scanned in a dynamic helical fashion during intravenous administration 113 cc of Optiray 320. MIP imaging was performed. A dose lowering technique was utilized adhering to the principles of ALARA. COMPARISON STUDY: Noncontrast head CT dated 05/16/2017 FINDINGS: Postcontrast images reveal no pathologically enhancing masses. There are no major intracranial branch occlusions. There are no lesion suspicious for aneurysm. The dural venous sinuses appear patent. IMPRESSION: 1. No evidence of significant stenosis 2. No evidence of aneurysm 3. No pathologically enhancing masses Electronically signed by: Fredy Boyd M.D. 05/17/2017 7:21 AM Dictated Date/Time: 05/17/2017 7:18 AM
--- NOTE | 2017-05-17 07:28 | DIAGNOSTIC IMAGING REPORT ---
CT ANGIOGRAPHY NECK CT DOSE: CLINICAL HISTORY: Stroke TECHNIQUE: The patient was scanned in a dynamic helical fashion during intravenous administration 113 cc of Optiray 320. MIP imaging was performed. NASCET criteria was utilized. A dose lowering technique was utilized adhering to the principles of ALARA. COMPARISON STUDY: None. FINDINGS: The visualized portions the lung apices reveal motion artifact. There is an azygos fissure. Dependent atelectatic changes are suspected. There is a 30% diameter narrowing of the proximal left subclavian artery. There is no evidence of right internal carotid artery stenosis or dissection. There is no evidence of left internal carotid artery stenosis or dissection. The left vertebral artery is dominant. There is no evidence of vertebral artery stenosis or dissection. IMPRESSION: 1. No evidence of internal carotid artery stenosis or dissection 2. Dominant left vertebral 3. No evidence of vertebral artery aneurysm or dissection 4. 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 05/17/2017 7:27 AM Dictated Date/Time: 05/17/2017 7:22 AM
[2017-05-17 08:38] LABS: ESTIMATED AVERAGE GLUCOSE 140 mg/dl; HA1C FLAG Normal (Normal)
[2017-05-17] MEDS: ASPIRIN 81 MG ECTAB PO SCH (09:16)
[2017-05-17] MEDS: DULOXETINE (CYMBALTA) 30 MG CAP PO SCH (09:16)
[2017-05-17] MEDS: DULOXETINE HCL 60 MG CAP PO SCH (09:16)
[2017-05-17] MEDS: PANTOprazole SOD 40 MG TAB PO SCH ×2 (09:17→20:30)
[2017-05-17] MEDS: POLYETHYLENE (MIRALAX) 17 GM PACK PO SCH ×2 (09:17→20:29)
[2017-05-17] MEDS: DILTIAZEM HCL 180 MG CAPCR PO SCH (09:17)
[2017-05-17] MEDS: HYDROXYCHLOROQUINE SULFATE 200 MG TAB PO SCH ×2 (09:17→20:30)
[2017-05-17] MEDS: GABAPENTIN 300 MG CAP PO SCH ×3 (09:17→20:30)
[2017-05-17] MEDS: OXYCODONE HCL 10 MG TABCR (OXYCONTIN) PO SCH ×2 (09:20→20:29)
--- NOTE | 2017-05-17 10:46 | Neurology Consultation ---
Neurology Consultation Date of Consultation: May 17, 2017. Attending Physician: Stan Gutierrez D.O. Primary Care Physician: Nidhi Gardner MD Reason for Consultation: Consultation for confusion and slurred speech History of Present Illness Source: patient, hospital records This is 86-year-old female who presents for the above evaluation. She reports not feeling well yesterday. [place] fatigued and tired. He reports nonspecific decreased visual focus. Had an episode of speaking to her child over the phone with slurred speech. Denies any focal weakness or numbness. Does have some baseline peripheral polyneuropathy. Denied any vision loss. No trouble swallowing. No other focal associated symptoms. No episodes concerning for seizures in the past. She does report having an abnormal headache last night and this morning. Rates it as a 7/10. She does report that she ran out of her oxycodone yesterday. She denies any urinary symptoms, but reports she gets urinary tract infection so frequently that she might not notice. CT of the head and CTA of the head and neck reported images were reviewed and unremarkable. TSH was unremarkable Hemoglobin A1c was 6.5 UA appears positive for UTI Past Medical/Surgical History Medical Problems: (1) Altered mental status Status: Acute (2) Anxiety Status: Acute (3) Chronic low back pain Status: Acute (4) COPD (chronic obstructive pulmonary disease) Status: Acute (5) Dehydration Status: Acute (6) Drowsiness Status: Acute (7) Failure of outpatient treatment Status: Acute (8) Fever Status: Acute (9) Inability to bear weight Status: Acute (10) Inferior pubic ramus fracture Status: Acute (11) Insomnia Status: Acute (12) Leukocytosis Status: Acute (13) Leukocytosis Status: Acute (14) Leukocytosis Status: Acute (15) Leukocytosis Status: Acute (16) Peripheral edema Status: Acute (17) Sepsis Status: Acute (18) Stroke-like symptoms Status: Acute (19) Suicidal ideation Status: Acute (20) Urinary frequency Status: Acute (21) UTI (urinary tract infection) Status: Acute (22) Weakness Status: Acute (23) Weakness Status: Acute (24) Weakness Status: Acute (25) Weakness Status: Acute Past medical history is negative for rheumatoid arthritis, osteoarthritis, hypothyroid, chronic UTIs, diverticulosis/diverticulitis status post colostomy, peripheral neuropathy, and pituitary surgery Family History Mother with dementia starting in her 50s and in her 80s Father with alcoholism Social History Patient is normally independent in her activities of daily living. No tobacco or alcohol use Smoking Status: Unknown if ever smoked Drug Use: none Marital Status: Housing Status: lives alone Occupation Status: retired Allergies Coded Allergies: Ciprofloxacin (Verified Allergy, Intermediate, rash, 05/16/17) Quinolones (Verified Allergy, Intermediate, HIVES, 05/16/17) Fluticasone (Verified Allergy, Unknown, ADVAIR, 05/16/17) Lactose Intolerance (Verified Allergy, Unknown, UNKNOWN, 05/16/17) Latex1 -Allergic Contact Dermititis (Verified Allergy, Unknown, RASH, ) Morphine (Verified Allergy, Unknown, HIVES, 05/16/17) Nitrofurantoin (Verified Allergy, Unknown, HIVES, 05/16/17) Salmeterol (Verified Allergy, Unknown, ADVAIR, 05/16/17) Scallop (Verified Allergy, Unknown, UNKNOWN, 05/16/17) Celecoxib (Verified Adverse Reaction, Unknown, barretts esophagus, 05/16/17) Current Inpatient Medications Current Inpatient Medications Medications (Trade) Dose Ordered Sig/Taye Route Start Time Stop Time Status Last Admin Dose Admin Ioversol (Optiray 320) 100 ml UD PRN IV 05/16/17 23:45 05/20/17 23:44 Aspirin (Ecotrin Tab) 81 mg DAILY PO 05/17/17 09:00 06/16/17 08:59 05/17/17 09:16 81 MG Bisacodyl (Dulcolax Tab) 5 mg DAILY PRN PO 05/17/17 02:00 06/16/17 01:59 Diltiazem HCl (Cardizem Cd Cap) 180 mg QAM PO 05/17/17 09:00 06/16/17 08:59 05/17/17 09:17 180 MG Docusate Sodium (coLACE CAP) 200 mg DAILY PRN PO 05/17/17 02:00 06/16/17 01:59 Duloxetine HCl (Cymbalta Cap) 30 mg DAILY PO 05/17/17 09:00 06/16/17 08:59 05/17/17 09:16 30 MG Duloxetine HCl (Cymbalta Cap) 60 mg DAILY PO 05/17/17 09:00 06/16/17 08:59 05/17/17 09:16 60 MG Gabapentin (Neurontin Cap) 300 mg TID PO 05/17/17 09:00 06/16/17 08:59 05/17/17 09:17 300 MG Hydroxychloroquine Sulfate (Plaquenil Tab) 200 mg BID PO 05/17/17 09:00 06/16/17 08:59 05/17/17 09:17 200 MG Levothyroxine Sodium (Synthroid Tab) 88 mcg DAILYBB PO 05/17/17 06:00 06/16/17 06:59 05/17/17 06:35 88 MCG Ondansetron HCl (Zofran Odt) 8 mg Q6H PRN SL 05/17/17 02:00 06/16/17 01:59 Oxycodone HCl (Oxycontin Tab) 10 mg BID PO 05/17/17 09:00 05/31/17 08:59 05/17/17 09:20 10 MG Prednisone (PredniSONE TAB) 10 mg DAILY PO 05/17/17 09:00 06/16/17 08:59 05/17/17 09:16 10 MG Quetiapine Fumarate (seroQUEL TAB) 100 mg HS PO 05/17/17 21:00 06/16/17 20:59 Pantoprazole Sodium (Protonix Tab) 40 mg BID PO 05/17/17 09:00 06/16/17 08:59 05/17/17 09:17 40 MG Polyethylene (Miralax Powder Packet) 17 gm BID PO 05/17/17 09:00 06/16/17 08:59 05/17/17 09:17 17 GM Miscellaneous Information (Pharmacist Discharge Med Rec Consult) 1 ea UD PRN N/A 05/17/17 02:00 06/16/17 01:59 Heparin Sodium (Porcine) (Heparin Sq 5000 Unit/0.5ml) 5,000 unit Q8 SQ 05/17/17 06:00 06/16/17 05:59 05/17/17 06:36 5,000 UNIT Acetaminophen (Tylenol Tab) 650 mg Q4H PRN PO 05/17/17 02:15 06/16/17 02:14 Al Hydrox/Mg Hydrox/Simethicone (Maalox Max Susp) 15 ml Q4H PRN PO 05/17/17 02:15 06/16/17 02:14 Magnesium Hydroxide (Milk Of Magnesia Susp) 30 ml Q12H PRN PO 05/17/17 02:15 06/16/17 02:14 Ondansetron HCl (Zofran Inj) 4 mg Q6H PRN IV 05/17/17 02:15 06/16/17 02:14 Sodium Chloride 1,000 ml @ 80 mls/hr [id number] IV 05/17/17 03:00 05/17/17 15:29 05/17/17 04:24 80 MLS/HR Ceftriaxone Sodium 1 gm/ Dextrose 50 ml @ 100 mls/hr Q24H IV 05/17/17 04:00 05/27/17 03:59 05/17/17 04:24 100 MLS/HR Review of Systems Complete review of systems otherwise negative except for the above noted in history of present illness Physical Exam Vital Signs (Past 24 Hrs): Date Time Temp Pulse Resp B/P (MAP) Pulse Ox O2 Delivery O2 Flow Rate FiO2 05/17/17 08:00 Room Air 05/17/17 07:50 36.5 86 18 116/71 (86) 100 2.0 05/17/17 03:00 36.4 81 18 113/71 100 Nasal Cannula 2.0 05/17/17 02:31 142/62 05/17/17 02:30 81 24 100 05/17/17 02:25 82 18 100 05/17/17 02:20 84 16 99 05/17/17 02:16 134/65 05/17/17 02:15 83 18 100 05/17/17 02:10 88 16 98 05/17/17 02:05 86 18 98 05/17/17 02:04 83 05/17/17 02:00 85 19 109/55 98 05/17/17 01:55 80 13 98 05/17/17 01:50 80 14 98 05/17/17 01:45 81 14 91/59 97 05/17/17 01:40 81 16 98 05/17/17 01:35 81 13 98 05/17/17 01:30 81 19 99/53 99 05/17/17 01:27 115/50 05/17/17 01:25 84 21 98 05/17/17 01:20 82 20 99 05/17/17 01:15 81 23 117/52 99 05/17/17 01:10 90 24 90 05/17/17 01:05 87 15 99 05/17/17 01:00 83 14 87/52 96 05/17/17 00:52 83 16 82/54 95 Nasal Cannula 2.0 05/17/17 00:16 85 20 108/58 93 Nasal Cannula 2.0 05/16/17 23:12 87 18 105/50 95 Nasal Cannula 2.0 05/16/17 22:35 88 16 95 Nasal Cannula 2.0 05/16/17 22:30 124/51 88 Room Air 05/16/17 22:20 88 16 93 Room Air 05/16/17 22:15 128/54 05/16/17 22:07 91 05/16/17 22:05 91 25 96 Room Air 05/16/17 21:59 127/54 05/16/17 21:50 36.4 89 18 127/59 94 Room Air 05/16/17 21:50 94 Room Air Gen.: Patient is alert and sitting in bed, in no acute distress. HEENT: Normocephalic /atraumatic, no scleral icterus Heart: Regular rate and rhythm Extremities: No gross deformities or rashes noted Neurological examination: Mental status: Patient is alert and oriented x3. Attention and concentration normal for the situation. Good fund of knowledge. Able to give her own history. Speech is fluent without any dysarthria or aphasia noted Cranial nerve: Funduscopic examination was unremarkable. No papilledema. Pupils equally round and reactive to light. Extraocular muscles intact without nystagmus. No facial asymmetry noted. Facial sensation intact. Tongue is midline. Good palatal elevation. Good shoulder shrug bilaterally. Hearing grossly intact to voice. Strength: 5/5 both proximal and distally in all extremities. There is no arm drift. Tone is normal. Sensation: Grossly intact to light touch in all extremities. Deep tendon reflexes: +1 in bilateral biceps, brachioradialis and patellar. Toes were downgoing to plantar stimulation Coordination: Patient had good finger to nose without dysmetria Station within the bed was normal Laboratory Results Past 24 Hours: 05/16/17 21:51 Red Blood Count 3.83, Mean Corpuscular Volume 93.2, Mean Corpuscular Hemoglobin 29.5, Mean Corpuscular Hemoglobin Concent 31.7, Mean Platelet Volume 10.1, Neutrophils (%) (Auto) 72.0, Lymphocytes (%) (Auto) 16.1, Monocytes (%) (Auto) 9.7, Eosinophils (%) (Auto) 1.1, Basophils (%) (Auto) 0.2, Neutrophils # (Auto) 9.09, Lymphocytes # (Auto) 2.03, Monocytes # (Auto) 1.23, Eosinophils # (Auto) 0.14, Basophils # (Auto) 0.02 05/16/17 21:51 Test 05/16/17 21:51 05/16/17 22:04 05/16/17 22:12 05/17/17 01:15 White Blood Count 12.62 K/uL (4.8-10.8) Red Blood Count 3.83 M/uL (4.2-5.4) Hemoglobin 11.3 g/dL (12.0-16.0) Hematocrit 35.7 % (37-47) Mean Corpuscular Volume 93.2 fL (80-100) Mean Corpuscular Hemoglobin 29.5 pg (25-34) Mean Corpuscular Hemoglobin Concent 31.7 g/dl (32-36) Platelet Count 242 K/uL (130-400) Mean Platelet Volume 10.1 fL (7.4-10.4) Neutrophils (%) (Auto) 72.0 % Lymphocytes (%) (Auto) 16.1 % Monocytes (%) (Auto) 9.7 % Eosinophils (%) (Auto) 1.1 % Basophils (%) (Auto) 0.2 % Neutrophils # (Auto) 9.09 K/uL (1.4-6.5) Lymphocytes # (Auto) 2.03 K/uL (1.2-3.4) Monocytes # (Auto) 1.23 K/uL (0.11-0.59) Eosinophils # (Auto) 0.14 K/uL (0-0.5) Basophils # (Auto) 0.02 K/uL (0-0.2) RDW Standard Deviation 52.7 fL (36.4-46.3) RDW Coefficient of Variation 15.6 % (11.5-14.5) Immature Granulocyte % (Auto) 0.9 % Immature Granulocyte # (Auto) 0.11 K/uL (0.00-0.02) Prothrombin Time 10.1 SECONDS (9.0-12.0) Prothromb Time International Ratio 0.9 (0.9-1.1) Activated Partial Thromboplast Time 26.2 SECONDS (21.0-31.0) Partial Thromboplastin Ratio 1.0 Anion Gap 8.0 mmol/L (3-11) Est Creatinine Clear Calc Drug Dose 33.4 ml/min Estimated GFR () 48.1 Estimated GFR (Non- 41.5 BUN/Creatinine Ratio 17.5 (10-20) Estimated Average Glucose 140 mg/dl Hemoglobin A1c 6.5 % (4.5-5.6) Calcium Level 8.8 mg/dl (8.5-10.1) Total Creatine Kinase 61 U/L (26-192) Creatine Kinase MB 1.6 ng/ml (0.5-3.6) Creatine Kinase MB Ratio 2.6 (0-3.0) Troponin I < 0.015 ng/ml (0-0.045) Thyroid Stimulating Hormone (TSH) 0.891 uIu/ml (0.300-4.500) Bedside Glucose 134 mg/dl (70-90) Bedside Prothrombin Time INR 0.9 (0.9-1.1) Urine Color YELLOW Urine Appearance CLEAR (CLEAR) Urine pH 7.5 (4.5-7.5) Urine Specific [place] > 1.045 (1.000-1.030) Urine Protein NEG (NEG) Urine Glucose (UA) NEG (NEG) Urine Ketones NEG (NEG) Urine Occult Blood NEG (NEG) Urine Nitrite NEG (NEG) Urine Bilirubin NEG (NEG) Urine Urobilinogen NEG (NEG) Urine Leukocyte Esterase MODERATE (NEG) Urine WBC (Auto) 10-30 /hpf (0-5) Urine RBC (Auto) 0-4 /hpf (0-4) Urine Hyaline Casts (Auto) 0 /lpf (0-5) Urine Epithelial Cells (Auto) >30 /lpf (0-5) Urine Bacteria (Auto) 4+ (NEG) Urine Renal Epithelial Cells /lpf (0-5) Test 05/17/17 02:15 Arterial Blood pH 7.31 (7.35-7.45) Arterial Blood Partial Pressure CO2 57 mmHg (35-46) Arterial Blood Partial Pressure O2 137 mm/Hg (80-95) Arterial Blood HCO3 28 mmol/L (19-24) Arterial Blood Oxygen Saturation 99.0 % (90-95) Arterial Blood Base Excess 1.2 mEq/L (-9-1.8) Arterial Blood Gas Delivery 2L Hilario Test POS (POS) Imaging As noted above in history of present illness Impression This is a 86-year-old female with nonspecific symptoms of confusion, tiredness, headache, and slurred speech. No focal symptoms suggestive of a TIA or stroke. Symptoms could be related to acute UTI. In addition uncertain if some of her symptoms could've also been associated with oxycodone use. Plan Agree with obtaining an MRI of the brain to rule out strokes or other structural etiologies for confusion, headache, and slurred speech. Patient does report that she will likely need Ativan for mild claustrophobia with MRI. Treat infectious etiologies per primary team. General vascular risk factor modifications and recommendations: Blood pressure recommendations 130/80-110/70 Total cholesterol goal 100- 200 and LDL goal less than 100 Hemoglobin A1c goal less than 7 Encourage cardiovascular exercise at least 3 times a week for 30 minutes. No additional neurological recommendations at this time. Thank you for allowing me to participate in this patient's care. If there is any questions or concerns , feel free to call/patient.
--- NOTE | 2017-05-17 17:06 | DIAGNOSTIC IMAGING REPORT ---
ORBITS FOR MRI HISTORY: Pre-MRI pre-MRI screening. COMPARISON: None. FINDINGS: There are no radiopaque foreign bodies identified within the orbits. IMPRESSION: No radiopaque foreign bodies identified within the orbits. The above report was generated using voice recognition software. It may contain grammatical, syntax or spelling errors. Electronically signed by: Robinson Turner M.D. 05/17/2017 5:04 PM Dictated Date/Time: 05/17/2017 5:04 PM
--- NOTE | 2017-05-17 17:42 | DIAGNOSTIC IMAGING REPORT ---
BRAIN WITHOUT CONTRAST HISTORY: Mental status change Stroke TECHNIQUE: Multiplanar multisequence MRI of the brain was performed without the use of contrast. COMPARISON STUDY: 04/23/2008 FINDINGS: There are no areas of restricted diffusion to suggest acute infarction. The midline structures are intact. The paranasal sinuses are clear. The mastoid air cells are clear. The ventricles and sulci are within normal limits for age. There is no mass, hematoma, midline shift. The major vascular flow-voids at the skull base are well maintained. Several small foci of increased signal consistent with unremarkable chronic small vessel change of aging. Stable postoperative changes of the sella. IMPRESSION: No acute intracranial abnormality. No change from the prior exam. Chronic age-related change. The above report was generated using voice recognition software. It may contain grammatical, syntax or spelling errors. Electronically signed by: Robinson Turner M.D. 05/17/2017 5:41 PM Dictated Date/Time: 05/17/2017 5:39 PM
--- NOTE | 2017-05-17 20:41 | Medical Student: [facility] ---
Med Student History & Physical Date & Time of Service: May 17, 2017 at 20:25 Chief Complaint: Altered Mental Status, Slurred Speech Primary Care Physician: Nidhi Gardner MD History of Present Illness Sheridan Neal is an 86 year old woman with a history of RA, hypothyroidism , chronic UTIs, and diverticulitis with colostomy who was admitted yesterday 05/16 from the [facility] ED with symptoms of weakness and slurred speech. Wednesday evening Mrs. Neal began to feel generally ill and weak. She usually ambulates well around her home with help of a walker, but per her report , she could barely muster enough energy to make it to the telephone to call her daughter. While on the phone, her daughter noticed that Mrs. Neal began to slur her speech, so they brought her to the ED, and she was evaluated for a CVA. Past Medical/Surgical History Medical Problems: (1) Altered mental status Status: Acute (2) Anxiety Status: Acute (3) Chronic low back pain Status: Acute (4) COPD (chronic obstructive pulmonary disease) Status: Acute (5) Dehydration Status: Acute (6) Drowsiness Status: Acute (7) Failure of outpatient treatment Status: Acute (8) Fever Status: Acute (9) Inability to bear weight Status: Acute (10) Inferior pubic ramus fracture Status: Acute (11) Insomnia Status: Acute (12) Leukocytosis Status: Acute (13) Leukocytosis Status: Acute (14) Leukocytosis Status: Acute (15) Leukocytosis Status: Acute (16) Peripheral edema Status: Acute (17) Sepsis Status: Acute (18) Stroke-like symptoms Status: Acute (19) Suicidal ideation Status: Acute (20) Urinary frequency Status: Acute (21) UTI (urinary tract infection) Status: Acute (22) Weakness Status: Acute (23) Weakness Status: Acute (24) Weakness Status: Acute (25) Weakness Status: Acute Social History Smoking Status: Former Smoker Alcohol Use: none Drug Use: none Marital Status: Housing status: lives alone Occupational Status: retired Immunizations History of Influenza Vaccine: N/A Influenza Vaccine Date: Jul 24, 2007 History of Tetanus Vaccine?: UTD History of Pneumococcal: Yes Pneumococcal Date: May 09, 1990 History of Hepatitis B Vaccine: Yes Hepatitis Immunization Date: May 09, 1985 Allergies Coded Allergies: Ciprofloxacin (Verified Allergy, Intermediate, rash, 05/16/17) Quinolones (Verified Allergy, Intermediate, HIVES, 05/16/17) Fluticasone (Verified Allergy, Unknown, ADVAIR, 05/16/17) Lactose Intolerance (Verified Allergy, Unknown, UNKNOWN, 05/16/17) Latex1 -Allergic Contact Dermititis (Verified Allergy, Unknown, RASH, ) Morphine (Verified Allergy, Unknown, HIVES, 05/16/17) Nitrofurantoin (Verified Allergy, Unknown, HIVES, 05/16/17) Salmeterol (Verified Allergy, Unknown, ADVAIR, 05/16/17) Scallop (Verified Allergy, Unknown, UNKNOWN, 05/16/17) Celecoxib (Verified Adverse Reaction, Unknown, barretts esophagus, 05/16/17) Medications Ascorbic Acid (Ascorbic Acid), 500 MG PO DAILY Aspirin (Aspirin Ec), 81 MG PO DAILY B-Complex Vitamins (Vitamin B Complex), 1 TAB PO HS Bisacodyl (Dulcolax), 5 MG PO DAILY PRN for Constipation Cefdinir (Omnicef), 300 MG PO Q12H Cholecalciferol (Vitamin D-3), 2,000 UNITS PO DAILY Cyanocobalamin (Vitamin B12), 1,000 MCG PO HS Dexlansoprazole (Dexilant), 60 MG PO BID Diclofenac Sodium (Topical) (Voltaren 1% Top Gel), 4 GM TOP QID PRN for Pain Diltiazem Hcl Coated Beads (Cartia Xt), 180 MG PO QAM Docusate Sodium (Colace), 200 MG PO DAILY PRN for Constipation Duloxetine Hcl (Cymbalta), 60 MG PO DAILY Duloxetine Hcl (Cymbalta), 30 MG PO DAILY Furosemide (Lasix), 40 MG PO QAM Gabapentin (Neurontin), 300 MG PO TID Home O2 Therapy (Oxygen), 3 LITERS NA PRN Hydroxychloroquine Sulfate (Plaquenil), 200 MG PO BID Levothyroxine Sodium (Synthroid), 88 MCG PO QAM Ocuvite Preservision (Ocuvite Preservision), 1 TAB PO DAILY Ondansetron Odt (Zofran Odt), 8 MG SL Q6H PRN for Nausea Oxycodone HCl (Oxycontin), 10 MG PO BID Polyethylene Glycol 3350 (Miralax), 17 GM PO BID Prednisone Tab (Prednisone), 10 MG PO DAILY Quetiapine Fumarate (Seroquel), 100 MG PO HS Trimethoprim (Proloprim), 100 MG PO DAILY Review of Systems Constitutional: No fever, No chills, No sweats, No weakness Eyes: No problem reported ENT: + dental problems (missing upper teeth, undergoing procedures) Respiratory: No cough, No shortness of breath, No problem reported Cardiovascular: + edema (minor pitting edema in bilat lower extremities), No chest pain, No palpitations, No problem reported Abdomen: No pain, No nausea, No vomiting, No diarrhea, No constipation Genitourinary - Female: + problem reported, No dysuria, No urinary frequency, No urinary urgency, No hematuria Neurologic: + memory loss (no recollection of the ambulance ride to the emergency room), + numbness/tingling (from the level of the mid calf down the rest of the leg and foot), No paralysis, No weakness Endocrine: No fatigue Hematologic / Lymphatic: No abnormal bleeding/bruising, No swollen lymph nodes Physical Exam Vital Signs (24 Hours) Date Time Temp Pulse Resp B/P (MAP) Pulse Ox O2 Delivery O2 Flow Rate FiO2 05/17/17 19:08 36.7 92 20 104/58 (73) 95 Room Air 05/17/17 16:00 96 05/17/17 15:23 36.7 93 18 102/58 (73) 96 Room Air 05/17/17 12:00 Room Air 05/17/17 11:37 36.8 90 18 100/56 (71) 95 Room Air 05/17/17 08:00 Room Air 05/17/17 07:50 36.5 86 18 116/71 (86) 100 2.0 05/17/17 03:00 36.4 81 18 113/71 100 Nasal Cannula 2.0 05/17/17 02:31 142/62 05/17/17 02:30 81 24 100 05/17/17 02:25 82 18 100 05/17/17 02:20 84 16 99 05/17/17 02:16 134/65 05/17/17 02:15 83 18 100 05/17/17 02:10 88 16 98 05/17/17 02:05 86 18 98 05/17/17 02:04 83 05/17/17 02:00 85 19 109/55 98 05/17/17 01:55 80 13 98 05/17/17 01:50 80 14 98 05/17/17 01:45 81 14 91/59 97 05/17/17 01:40 81 16 98 05/17/17 01:35 81 13 98 05/17/17 01:30 81 19 99/53 99 05/17/17 01:27 115/50 05/17/17 01:25 84 21 98 05/17/17 01:20 82 20 99 05/17/17 01:15 81 23 117/52 99 05/17/17 01:10 90 24 90 05/17/17 01:05 87 15 99 05/17/17 01:00 83 14 87/52 96 05/17/17 00:52 83 16 82/54 95 Nasal Cannula 2.0 05/17/17 00:16 85 20 108/58 93 Nasal Cannula 2.0 05/16/17 23:12 87 18 105/50 95 Nasal Cannula 2.0 05/16/17 22:35 88 16 95 Nasal Cannula 2.0 05/16/17 22:30 124/51 88 Room Air 05/16/17 22:20 88 16 93 Room Air 05/16/17 22:15 128/54 05/16/17 22:07 91 05/16/17 22:05 91 25 96 Room Air 05/16/17 21:59 127/54 05/16/17 21:50 36.4 89 18 127/59 94 Room Air 05/16/17 21:50 94 Room Air General Appearance: WD/WN, no apparent distress Head: normocephalic, atraumatic Eyes: normal inspection, PERRL, EOMI ENT: normal ENT inspection, hearing grossly normal, TMs normal, pharynx normal Neck: supple, no adenopathy, thyroid normal, no JVD, no carotid bruits, trachea midline Respiratory/Chest: chest non-tender, lungs clear, normal breath sounds, no respiratory distress, no accessory muscle use Cardiovascular: regular rate, rhythm, no gallop, no JVD, no murmur, normal peripheral pulses Abdomen/GI: normal bowel sounds, non tender, soft, + pertinent finding ( colostomy) Extremities/Musculoskelatal: no calf tenderness, normal capillary refill, + swelling Neurologic/Psych: medical doctor md II-XII nml as tested, no motor/sensory deficits, alert, normal mood/affect, oriented x 3 Diagnostics Laboratory Results Results Past 24 Hours Test 05/16/17 21:51 05/16/17 22:04 05/16/17 22:12 05/17/17 01:15 Range/Units White Blood Count 12.62 4.8-10.8 K/uL Red Blood Count 3.83 4.2-5.4 M/uL Hemoglobin 11.3 12.0-16.0 g/dL Hematocrit 35.7 37-47 % Mean Corpuscular Volume 93.2 80-100 fL Mean Corpuscular Hemoglobin 29.5 25-34 pg Mean Corpuscular Hemoglobin Concent 31.7 32-36 g/dl Platelet Count 242 130-400 K/uL Mean Platelet Volume 10.1 7.4-10.4 fL Neutrophils (%) (Auto) 72.0 % Lymphocytes (%) (Auto) 16.1 % Monocytes (%) (Auto) 9.7 % Eosinophils (%) (Auto) 1.1 % Basophils (%) (Auto) 0.2 % Neutrophils # (Auto) 9.09 1.4-6.5 K/uL Lymphocytes # (Auto) 2.03 1.2-3.4 K/uL Monocytes # (Auto) 1.23 0.11-0.59 K/uL Eosinophils # (Auto) 0.14 0-0.5 K/uL Basophils # (Auto) 0.02 0-0.2 K/uL RDW Standard Deviation 52.7 36.4-46.3 fL RDW Coefficient of Variation 15.6 11.5-14.5 % Immature Granulocyte % (Auto) 0.9 % Immature Granulocyte # (Auto) 0.11 0.00-0.02 K/uL Prothrombin Time 10.1 9.0-12.0 SECONDS Prothromb Time International Ratio 0.9 0.9-1.1 Activated Partial Thromboplast Time 26.2 21.0-31.0 SECONDS Partial Thromboplastin Ratio 1.0 Sodium Level 143 136-145 mmol/L Potassium Level 4.0 3.5-5.1 mmol/L Chloride Level 105 98-107 mmol/L Carbon Dioxide Level 30 21-32 mmol/L Anion Gap 8.0 3-11 mmol/L Blood Urea Nitrogen 21 7-18 mg/dl Creatinine 1.20 0.60-1.20 mg/dl Est Creatinine Clear Calc Drug Dose 33.4 ml/min Estimated GFR () 48.1 Estimated GFR (Non- 41.5 BUN/Creatinine Ratio 17.5 10-20 Random Glucose 179 70-99 mg/dl Estimated Average Glucose 140 mg/dl Hemoglobin A1c 6.5 4.5-5.6 % Calcium Level 8.8 8.5-10.1 mg/dl Total Creatine Kinase 61 26-192 U/L Creatine Kinase MB 1.6 0.5-3.6 ng/ml Creatine Kinase MB Ratio 2.6 0-3.0 Troponin I < 0.015 0-0.045 ng/ml Thyroid Stimulating Hormone (TSH) 0.891 0.300-4.500 uIu/ml Bedside Glucose 134 70-90 mg/dl Bedside Prothrombin Time INR 0.9 0.9-1.1 Urine Color YELLOW Urine Appearance CLEAR CLEAR Urine pH 7.5 4.5-7.5 Urine Specific Brooks > 1.045 1.000-1.030 Urine Protein NEG NEG Urine Glucose (UA) NEG NEG Urine Ketones NEG NEG Urine Occult Blood NEG NEG Urine Nitrite NEG NEG Urine Bilirubin NEG NEG Urine Urobilinogen NEG NEG Urine Leukocyte Esterase MODERATE NEG Urine WBC (Auto) 10-30 0-5 /hpf Urine RBC (Auto) 0-4 0-4 /hpf Urine Hyaline Casts (Auto) 0 0-5 /lpf Urine Epithelial Cells (Auto) >30 0-5 /lpf Urine Bacteria (Auto) 4+ NEG Urine Renal Epithelial Cells 0-5 /lpf Test 05/17/17 02:15 Range/Units Arterial Blood pH 7.31 7.35-7.45 Arterial Blood Partial Pressure CO2 57 35-46 mmHg Arterial Blood Partial Pressure O2 137 80-95 mm/Hg Arterial Blood HCO3 28 19-24 mmol/L Arterial Blood Oxygen Saturation 99.0 90-95 % Arterial Blood Base Excess 1.2 -9-1.8 mEq/L Arterial Blood Gas Delivery 2L Hilario Test POS POS Microbiology Results 05/17/17 Urine Culture, Received Pending Diagnostic Radiology CXR: Pulmonary vascular congestion without overt pulmonary edema HEAD CT NONCONTRAST CT DOSE: 623.48 mGy.cm HISTORY: Stroke symptoms. TECHNIQUE: Multiaxial CT images of the head were performed without the use of intravenous contrast. Automated exposure control was utilized for this study. A dose lowering technique was utilized adhering to the principles of ALARA. Comparison: Head CT 12/28/2016. Findings: The paranasal sinuses and mastoid air cells are clear. The calvarium and skull base are intact. The ventricles and sulci are within normal limits. There is no mass, hematoma, midline shift, or acute infarct. Impression: No acute intracranial abnormality. Neck CTA IMPRESSION: 1. No evidence of internal carotid artery stenosis or dissection 2. Dominant left vertebral 3. No evidence of vertebral artery aneurysm or dissection 4. 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 MIP imaging was performed. A dose lowering technique was utilized adhering to the principles of ALARA. COMPARISON STUDY: Noncontrast head CT dated 05/16/2017 FINDINGS: Postcontrast images reveal no pathologically enhancing masses. There are no major intracranial branch occlusions. There are no lesion suspicious for aneurysm. The dural venous sinuses appear patent. IMPRESSION: 1. No evidence of significant stenosis 2. No evidence of aneurysm 3. No pathologically enhancing masses Head MRI BRAIN WITHOUT CONTRAST HISTORY: Mental status change Stroke TECHNIQUE: Multiplanar multisequence MRI of the brain was performed without the use of contrast. COMPARISON STUDY: 04/23/2008 FINDINGS: There are no areas of restricted diffusion to suggest acute infarction. The midline structures are intact. The paranasal sinuses are clear. The mastoid air cells are clear. The ventricles and sulci are within normal limits for age. There is no mass, hematoma, midline shift. The major vascular flow-voids at the skull base are well maintained. Several small foci of increased signal consistent with unremarkable chronic small vessel change of aging. Stable postoperative changes of the sella. IMPRESSION: No acute intracranial abnormality. No change from the prior exam. Chronic age-related change. ORBITS FOR MRI HISTORY: Pre-MRI pre-MRI screening. COMPARISON: None. FINDINGS: There are no radiopaque foreign bodies identified within the orbits. IMPRESSION: No radiopaque foreign bodies identified within the orbits. Normal EKG Impression Assessment and Plan 1. Weakness: UTI vs CVA/TIA Urinalysis reveals elevated Leukocyte esterase, WBC, and 4+ urine bacteria, all suggestive of an acute UTI, and likely the cause of her general ill feeling and weakness. MRI and CTA of the head and neck revealed no acute intracranial abnormalities. That in addition to the absence of focal neurologic symptoms make a CVA/TIA less likely the etiology of Mrs. Neal's weakness. She is being treated with Ceftriaxone IV until urine culture returns. 2. Altered mentation/slurred speech: UTI vs Medication induced vs TIA/CVA UTI and TIA/CVA rationale same as above Her symptoms could potantially be explained by home use of several psychiatric medications as well as use of oxycodone. 3. Hypothyroid Continue Synthroid medication, TSH and thyroid levels are wnl 4. RA She currently takes oral prednisone May consider altering her dosage if bacteremia develops Level of Care Telemetry Advanced Directives Existing Living Will: No Existing Power of Restaurant Associate: Yes Resuscitation Status FULL RESUSCITATION Note full code, Heparin DVT Prophylaxis
[2017-05-17] MEDS ORDERED: QUETIAPINE FUMARATE 100 MG TAB PO SCH (21:00)
[2017-05-18] MEDS: CEFTRIAXONE SOD INJ 1 GM in DEXTROSE 5% ADD-VANTAGE 50ML 50 ML IV SCH (03:39)
[2017-05-18 04:30] VITALS: BP 98/52; PULSE 89; TEMP 36.7; O2SAT 92
[2017-05-18] MEDS: LEVOTHYROXINE 88 MCG TAB PO SCH (05:36)
[2017-05-18] MEDS: HEPARIN SOD 5000 UNIT/0.5 ML CARP SQ SCH (05:37)
[2017-05-18 07:15] LABS: BASO % 0.2 %; BASO ABS # 0.02 K/uL (0-0.2); COMPLETE YES; EOS % 2.8 %; HEMATOCRIT 35.1 % (37-47); IG% 0.8 %; LYMPH % 27.7 %; LYMPH ABS # 2.68 K/uL (1.2-3.4); MEAN CELL VOLUME 93.9 fL (80-100); MEAN CORPUSCULAR HEMOGLOBIN 29.1 pg (25-34); MEAN CORPUSCULAR HGB CONC 31.1 g/dl (32-36); MEAN PLATELET VOLUME 9.8 fL (7.4-10.4); MONO % 10.4 %; NEUT % 58.1 %; PLATELET COUNT 237 K/uL (130-400); RED BLOOD COUNT 3.74 M/uL (4.2-5.4); WHITE BLOOD COUNT 9.68 K/uL (4.8-10.8)
[2017-05-18 07:39] VITALS: BP 97/60; PULSE 88; TEMP 36.6; O2SAT 92
[2017-05-18 07:41] LABS: BUN/CREATININE RATIO 12.8 (10-20); CALCIUM 8.6 mg/dl (8.5-10.1); CREATININE 1.1 mg/dl (0.60-1.20)
[2017-05-18 07:44] LABS: CHOLESTEROL/HDL RATIO 4.1
[2017-05-18] MEDS: DULOXETINE (CYMBALTA) 30 MG CAP PO SCH (07:46)
[2017-05-18] MEDS: PANTOprazole SOD 40 MG TAB PO SCH (07:46)
[2017-05-18] MEDS: DULOXETINE HCL 60 MG CAP PO SCH (07:46)
[2017-05-18] MEDS: GABAPENTIN 300 MG CAP PO SCH (07:46)
[2017-05-18] MEDS: ASPIRIN 81 MG ECTAB PO SCH (07:46)
[2017-05-18] MEDS: POLYETHYLENE (MIRALAX) 17 GM PACK PO SCH (07:47)
[2017-05-18] MEDS: DILTIAZEM HCL 180 MG CAPCR PO SCH (07:47)
[2017-05-18] MEDS: HYDROXYCHLOROQUINE SULFATE 200 MG TAB PO SCH (07:47)
[2017-05-18] MEDS: OXYCODONE HCL 10 MG TABCR (OXYCONTIN) PO SCH (07:48)
--- NOTE | 2017-05-18 10:53 | Medical Student: [facility] ---
Med Student Progress Note Date of Service May 18, 2017. Subjective Pt evaluation today including: conversation w/ patient Voiding: no voiding problems hSeridan has a new complaint of upper back pain that she describes as sharp 9/10 and between her shoulder blades. The pain is not present at rest, and she reports that it is only brought on by movement. I could not elicit the pain when sitting her up, lying her down, or moving her upper extremities. She states that she slept okay throughout the night and that her appetite is normal. She denies any other complaints/concerns at this time. She can still ambulate to the restroom with help of a walker. Review of Systems Constitutional: No fever, No chills, No sweats, No weakness Eyes: No problem reported ENT: No problem reported Respiratory: + dyspnea on exertion (went for walk with PT, could only make it half way around [place] [address] before needing wheelchair), No cough Cardiac: + edema (pitting from mid calf down through feet), No chest pain, No palpitations Abdomen: No nausea, No vomiting Female : No dysuria, No urinary frequency, No hematuria Neurologic: + numbness/tingling, No paralysis, No weakness Skin: No rash Objective Vital Signs Date Time Temp Pulse Resp B/P (MAP) Pulse Ox O2 Delivery O2 Flow Rate FiO2 05/18/17 07:39 36.6 88 18 97/60 (72) 92 Room Air 05/18/17 04:30 36.7 89 16 98/52 (67) 92 Room Air 05/18/17 04:00 Room Air 05/18/17 00:15 Room Air 05/17/17 23:52 36.9 88 16 106/53 (70) 94 Room Air 05/17/17 20:00 95 Room Air 2.0 05/17/17 19:08 36.7 92 20 104/58 (73) 95 Room Air 05/17/17 16:00 96 05/17/17 15:23 36.7 93 18 102/58 (73) 96 Room Air 05/17/17 12:00 Room Air 05/17/17 11:37 36.8 90 18 100/56 (71) 95 Room Air Physical Exam General Appearance: WD/WN, no apparent distress Eyes: bilateral eyes normal inspection, bilateral eyes PERRL, bilateral eyes EOMI ENT: normal ENT inspection, hearing grossly normal, TMs normal, pharynx normal , + pertinent finding (missing upper teeth) Neck: supple, no adenopathy, no carotid bruits, trachea midline Respiratory/Chest: chest non-tender, lungs clear, normal breath sounds Cardiovascular: regular rate, rhythm, no gallop, no murmur Abdomen: normal bowel sounds, non tender, soft, + pertinent finding (colostomy) Extremities: normal range of motion, non-tender 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, no motor/sensory deficits, alert, normal mood/affect, oriented x 3 Skin: normal color, warm/dry, no rash Laboratory Results Last 24 Hours Test 05/18/17 06:52 White Blood Count 9.68 K/uL Red Blood Count 3.74 M/uL Hemoglobin 10.9 g/dL Hematocrit 35.1 % Mean Corpuscular Volume 93.9 fL Mean Corpuscular Hemoglobin 29.1 pg Mean Corpuscular Hemoglobin Concent 31.1 g/dl Platelet Count 237 K/uL Mean Platelet Volume 9.8 fL Neutrophils (%) (Auto) 58.1 % Lymphocytes (%) (Auto) 27.7 % Monocytes (%) (Auto) 10.4 % Eosinophils (%) (Auto) 2.8 % Basophils (%) (Auto) 0.2 % Neutrophils # (Auto) 5.62 K/uL Lymphocytes # (Auto) 2.68 K/uL Monocytes # (Auto) 1.01 K/uL Eosinophils # (Auto) 0.27 K/uL Basophils # (Auto) 0.02 K/uL RDW Standard Deviation 55.3 fL RDW Coefficient of Variation 16.0 % Immature Granulocyte % (Auto) 0.8 % Immature Granulocyte # (Auto) 0.08 K/uL Sodium Level 145 mmol/L Potassium Level 4.0 mmol/L Chloride Level 109 mmol/L Carbon Dioxide Level 30 mmol/L Anion Gap 6.0 mmol/L Blood Urea Nitrogen 14 mg/dl Creatinine 1.10 mg/dl Est Creatinine Clear Calc Drug Dose 36.1 ml/min Estimated GFR () 53.4 Estimated GFR (Non- 46.1 BUN/Creatinine Ratio 12.8 Random Glucose 93 mg/dl Calcium Level 8.6 mg/dl Triglycerides Level 284 mg/dl Cholesterol Level 200 mg/dl HDL Cholesterol 49 mg/dl LDL Cholesterol, Calculated 94 mg/dl VLDL Cholesterol, Calculated 57 mg/dl Cholesterol/HDL Ratio 4.1 Medications Current Inpatient Medications Medications (Trade) Dose Ordered Sig/Taye Route Start Time Stop Time Status Last Admin Dose Admin Ioversol (Optiray 320) 100 ml UD PRN IV 05/16/17 23:45 05/20/17 23:44 Aspirin (Ecotrin Tab) 81 mg DAILY PO 05/17/17 09:00 06/16/17 08:59 05/18/17 07:46 81 MG Bisacodyl (Dulcolax Tab) 5 mg DAILY PRN PO 05/17/17 02:00 06/16/17 01:59 Diltiazem HCl (Cardizem Cd Cap) 180 mg QAM PO 05/17/17 09:00 06/16/17 08:59 05/18/17 07:47 180 MG Docusate Sodium (coLACE CAP) 200 mg DAILY PRN PO 05/17/17 02:00 06/16/17 01:59 Duloxetine HCl (Cymbalta Cap) 30 mg DAILY PO 05/17/17 09:00 06/16/17 08:59 05/18/17 07:46 30 MG Duloxetine HCl (Cymbalta Cap) 60 mg DAILY PO 05/17/17 09:00 06/16/17 08:59 05/18/17 07:46 60 MG Gabapentin (Neurontin Cap) 300 mg TID PO 05/17/17 09:00 06/16/17 08:59 05/18/17 07:46 300 MG Hydroxychloroquine Sulfate (Plaquenil Tab) 200 mg BID PO 05/17/17 09:00 06/16/17 08:59 05/18/17 07:47 200 MG Levothyroxine Sodium (Synthroid Tab) 88 mcg DAILYBB PO 05/17/17 06:00 06/16/17 06:59 05/18/17 05:36 88 MCG Ondansetron HCl (Zofran Odt) 8 mg Q6H PRN SL 05/17/17 02:00 06/16/17 01:59 Oxycodone HCl (Oxycontin Tab) 10 mg BID PO 05/17/17 09:00 05/31/17 08:59 05/18/17 07:48 10 MG Prednisone (PredniSONE TAB) 10 mg DAILY PO 05/17/17 09:00 06/16/17 08:59 05/18/17 07:46 10 MG Quetiapine Fumarate (seroQUEL TAB) 100 mg HS PO 05/17/17 21:00 06/16/17 20:59 05/17/17 20:30 100 MG Pantoprazole Sodium (Protonix Tab) 40 mg BID PO 05/17/17 09:00 06/16/17 08:59 05/18/17 07:46 40 MG Polyethylene (Miralax Powder Packet) 17 gm BID PO 05/17/17 09:00 06/16/17 08:59 05/18/17 07:47 17 GM Miscellaneous Information (Pharmacist Discharge Med Rec Consult) 1 ea UD PRN N/A 05/17/17 02:00 06/16/17 01:59 Heparin Sodium (Porcine) (Heparin Sq 5000 Unit/0.5ml) 5,000 unit Q8 SQ 05/17/17 06:00 06/16/17 05:59 05/18/17 05:37 5,000 UNIT Acetaminophen (Tylenol Tab) 650 mg Q4H PRN PO 05/17/17 02:15 06/16/17 02:14 05/17/17 13:13 650 MG Al Hydrox/Mg Hydrox/Simethicone (Maalox Max Susp) 15 ml Q4H PRN PO 05/17/17 02:15 06/16/17 02:14 Magnesium Hydroxide (Milk Of Magnesia Susp) 30 ml Q12H PRN PO 05/17/17 02:15 06/16/17 02:14 Ondansetron HCl (Zofran Inj) 4 mg Q6H PRN IV 05/17/17 02:15 06/16/17 02:14 Ceftriaxone Sodium 1 gm/ Dextrose 50 ml @ 100 mls/hr Q24H IV 05/17/17 04:00 05/27/17 03:59 05/18/17 03:39 100 MLS/HR Assessment and Plan Assessment and Plan: 1. Weakness/Altered mentation/slurred speech: UTI vs TIA; resolved Urinalysis reveals elevated Leukocyte esterase, WBC, and 4+ urine bacteria, all suggestive of an acute UTI. She takes Cefdinir 300 Mg Cap 300 MG PO at home for chronic UTIs. Because she is asymptomatic, I believe she just has asymptomatic bacteruria, and it didn't likely contribute to her weakness and altered mental status. MRI and CTA of the head and neck revealed no acute intracranial abnormalities. That in addition to the absence of focal neurologic symptoms make a CVA/TIA less likely the etiology of Mrs. Neal's weakness. Her symptoms could potantially be explained by home use of several psychiatric medications, as Gabapentin has been shown to cause periods of confusion. 3. Hypothyroid: stable TSH and thyroid levels are wnl Continue Synthroid medication Levothyroxine Sodium (Synthroid) 88 Mcg Tab qam PO 4. RA: stable She currently takes oral prednisone Prednisone Tab (Prednisone) 10 Mg Tab PO daily
--- NOTE | 2017-05-18 10:54 | Clinical Documentation Query ---
MARY Butler : CLINICAL DOCUMENTATION QUERY Patient is an 86 year old female admitted for evaluation and treatment of weakness, slurred speech, and difficulty in wakening from sleep. Urine positive for gram negative bacilli for which she is recieving Rocephin. Radiologic studies of her head are negative for acute process. Neurologic consultation noted "Symptoms could be related to acute UTI". ABG obtained demonstrated a mild respiratory acidosis, also possibly contributing to the altered mental status. In your clinical opinion is this patient being managed for: ( ) Metabolic encephalopathy (likely/suspected/possibly) due to UTI and/or hypercarbia/poor ventilation/respiratory acidosis ( ) Other explanation of clinical findings (Please Explain) ( ) Unable to determine (Please Define) ( ) Need to Discuss ( ) Not Agree The medical record reflects the following clinical findings, treatment, and risk factors. Clinical Indicators: As above Treatment: Neurology consultation, IVF, IV antibiotics, cultures, radiology Risk Factors: Age, gender, infection Please clarify and document your clinical opinion in the progress notes and discharge summary. Terms such as "probable", "suspected", "likely", "questionable", "possible", or "still to be ruled out" are acceptable. IF IN AGREEMENT, YOU MUST DOCUMENT ABOVE DIAGNOSTIC STATEMENT IN DAILY PROGRESS NOTES AND DISCHARGE SUMMARY. This document is not part of the patient's record. Thank You, Brandon Gallardo, [place] [phone]
[2017-05-18 11:03] VITALS: BP 94/55; PULSE 85; TEMP 36.8; O2SAT 91
[2017-05-18] MEDS ORDERED: CEFD1CAP14 PO (12:11)
--- NOTE | 2017-05-18 12:15 | Discharge Instructions ---
Discharge Instructions Date of Service May 18, 2017. Admission Reason for Admission: Altered Mental Status, Slurred Speech Discharge Discharge Diagnosis / Problem: Altered mental status, slurred speech, TIA Discharge Goals Goal(s): Decrease discomfort, Improve function, Increase independence, Improve disease control, Learn about illness, Diagnostic testing, Screening, Prevent Disease Progression Activity Recommendations Activity Limitations: resume your previous activity Exercise/Sports Limitations: as tolerated . Instructions / Follow-Up Instructions / Follow-Up Patient to be discharged home New prescription for antibiotic omnicef to be taken twice a day for 3 more days for urinary tract infection General vascular risk factor modifications and recommendations: Blood pressure recommendations goal range 110/70 - 130/80 Total cholesterol goal 100-200 and LDL goal less than 100 Hemoglobin A1c goal less than 7 Encourage cardiovascular exercise at least 3 times a week for 30 minutes. If worsening weakness, numbness, slurred speech, visual changes please come back to ER Risk Factors for Stroke: You can reduce your chances of stroke by working with your medical provider to adopt a healthy lifestyle. Some specific ways to lower your chance of stroke are: * If you are a smoker, now is the time to stop smoking cigarettes * If you are diabetic, improve the control of your blood sugars * Avoid excessive amounts of alcohol * Control high blood pressure * Lose weight if you are overweight * Be sure to lead an active lifestyle * Eat a healthy diet low in salt, cholesterol and fat You should know about other risk factors for stroke that you are unable to control. These include: * Age 55 years or older * Male gender * Certain racial groups: , or / * Family History of Stroke, Mini stroke or Heart Attack * Sickle Cell Disease Follow Up: It is important for you to keep your follow up appointments with your medical provider. Current Hospital Diet Patient's current hospital diet: AHA Diet (Heart Healthy) Discharge Diet Recommended Diet: AHA Diet (Heart Healthy) Pending Studies Studies pending at discharge: no Laboratory Results Hemoglobin A1c Test 05/16/17 21:51 Range/Units Estimated Average Glucose 140 mg/dl Hemoglobin A1c 6.5 H 4.5-5.6 % Lipid Panel Test 05/18/17 06:52 Range/Units Triglycerides Level 284 H 0-150 mg/dl Cholesterol Level 200 0-200 mg/dl HDL Cholesterol 49 mg/dl Cholesterol/HDL Ratio 4.1 LDL Cholesterol, Calculated 94 mg/dl Medical Emergencies . Who to Call and When: Medical Emergencies: Call 911 immediately if you experience any of the following warning signs and symptoms of Stroke: * Sudden numbness or weakness of the face, arm or leg, especially on one side of the body * Sudden confusion, trouble speaking or understanding * Sudden trouble seeing in one or both eyes * Sudden trouble walking, dizziness, loss of balance or coordination * Sudden severe headache with no cause Do not delay calling 911 if you experience any warning signs or symptoms of a stroke. Delay in seeking medical attention may affect what treatments can be given to you. . Non-Emergent Contact Non-Emergency issues call your: Primary Care Provider Call Non-Emergent contact if: you have a fever, you have any medication questions . . "Provider Documentation" section prepared by Stan Gutierrez. . Stroke Core Measures Reason no t-PA for Stroke: Treatment not indicated Reason no antithrom by day 2: Treatment not indicated Reason no antithrom at D/C: Treatment not indicated Reason no statin at D/C: Treatment provided - N/A Reason no anticoag w/a fib: Treatment provided - N/A VTE Core Measure Inpt VTE Proph given/why not?: Unfractionated heparin SQ
[2017-05-18 12:36] VITALS: BP 94/55; PULSE 85; TEMP 36.8; O2SAT 91
--- NOTE | 2017-05-18 17:00 | Discharge Summary ---
Discharge Summary Date of Service May 18, 2017. Discharge Summary Admission Date: May 17, 2017 at 02:07 Discharge Date: May 18, 2017 Discharge Disposition: Home Principal Diagnosis: Confusion, weakness, slurred speech Immunizations: Have You Had Influenza Vaccine: N/A Influenza Vaccine Date: Jul 24, 2007 History of Tetanus Vaccine?: UTD History of Pneumococcal: Yes Pneumococcal Date: May 09, 1990 History of Hepatitis B Vaccine: Yes Hepatitis Immunization Date: May 09, 1985 Consultations: Neurology Medication Reconciliation New Medications: Cefdinir (Omnicef) 300 Mg Cap 300 MG PO Q12H for 3 Days, #6 CAP Continued Medications: Ascorbic Acid (Ascorbic Acid) 250 Mg Tab 500 MG PO DAILY Aspirin (Aspirin Ec) 81 Mg Tab 81 MG PO DAILY B-Complex Vitamins (Vitamin B Complex) 1 Tab Tab 1 TAB PO HS Bisacodyl (Dulcolax) 5 Mg Tab 5 MG PO DAILY PRN for Constipation, TAB Cholecalciferol (Vitamin D-3) 2,000 Unit Tab 2000 UNITS PO DAILY Cyanocobalamin (Vitamin B12) 1,000 Mcg Tab 1000 MCG PO HS Dexlansoprazole (Dexilant) 60 Mg Cap 60 MG PO BID Diclofenac Sodium (Topical) (Voltaren 1% Top Gel) 1 % Gel 4 GM TOP QID PRN for Pain MAX 16 GM DAILY TO ANY ONE AFFECTED JOINT. Diltiazem Hcl Coated Beads (Cartia Xt) 180 Mg Cap 180 MG PO QAM Docusate Sodium (Colace) 100 Mg Cap 200 MG PO DAILY PRN for Constipation for 30 Days, #60 CAP Duloxetine Hcl (Cymbalta) 60 Mg Cap 60 MG PO DAILY TAKE ALONG WITH ONE 30MG CAPSULE TO = 90MG Duloxetine Hcl (Cymbalta) 30 Mg Cap 30 MG PO DAILY TAKE ALONG WITH ONE 60MG CAP TO = 90MG Furosemide (Lasix) 20 Mg Tab 40 MG PO QAM, TAB Gabapentin (Neurontin) 300 Mg Cap 300 MG PO TID, CAP Home O2 Therapy (Oxygen) Gas 3 LITERS NA PRN Hydroxychloroquine Sulfate (Plaquenil) 200 Mg Tab 200 MG PO BID, TAB Levothyroxine Sodium (Synthroid) 88 Mcg Tab 88 MCG PO QAM, TAB Ocuvite Preservision (Ocuvite Preservision) 1 Tab Tab 1 TAB PO DAILY, TAB Ondansetron Odt (Zofran Odt) 8 Mg Soltab 8 MG SL Q6H PRN for Nausea, TAB Oxycodone HCl (Oxycontin) 10 Mg Tabcr 10 MG PO BID Polyethylene Glycol 3350 (Miralax) 1 Pow Pow 17 GM PO BID, #527 GM Prednisone Tab (Prednisone) 10 Mg Tab 10 MG PO DAILY, TAB Quetiapine Fumarate (Seroquel) 100 Mg Tab 100 MG PO HS, TAB Discharge Exam Review of Systems: Constitutional: No fever, No chills, No sweats, No weakness Respiratory: No cough, No sputum, No wheezing, No shortness of breath, No dyspnea on exertion Cardiovascular: No chest pain, No orthopnea, No PND, No edema, No claudication Abdomen: No pain, No nausea, No vomiting, No diarrhea, No constipation Musculoskeletal: No joint pain, No muscle pain, No swelling, No calf pain Genitourinary - Female: No dysuria, No urinary frequency, No urinary urgency , No urinary incontinence Neurologic: No memory loss, No paralysis, No weakness, No numbness/tingling Psychiatric: No depression symptoms, No anhedonism, No anxiety, No insomnia Endocrine: No fatigue, No excessive thirst Physical Exam: General Appearance: WD/WN, no apparent distress Eyes: normal inspection, PERRL, EOMI, sclerae normal Neck: supple, no adenopathy, thyroid normal, no JVD Respiratory/Chest: chest non-tender, lungs clear, normal breath sounds, no respiratory distress Cardiovascular: no edema, no gallop, no JVD, no murmur Abdomen / GI: non tender, soft, no organomegaly, no pulsatile mass Neurologic/Psychiatric: alert, normal mood/affect, normal reflexes, oriented x 3 Skin: normal color, warm/dry, no rash Lymphatic: no adenopathy Hospital Course 86 y/o F Hx RA, hypothyroidism, chronic UTIs, diverticulitis with colostomy. Pt was complaining of feeling generally ill and weak today. She then developed slurred speech that she noticed when talking to her daughter on the phone. She presented to the ER as a stroke alert and underwent evaluation for a CVA including a telemed consult, CTA of the head/neck in addition to a CT head. Results have thus far been negative for any abnormalities. Weakness/slurred speech/metabolic encephalopathy - suspected UTI vs TIA, pt denies any urinary sx, hx of recurrent UTIs in past, on ppx of doxy and omnicef if pt to have sx. Mild leukocytosis at 12 but resolved in 1 day and no fevers. MRI neg for any intracranial abnormalities. Neuro consulted. No further recs at this time Hypothyroidism - cont Synthroid - TSH is WNL on admission RA - pt is on prednisone chronically Total Time Spent: Greater than 30 minutes This includes examination of the patient, discharge planning, medication reconciliation, and communication with other providers. Discharge Instructions Please refer to the electronic Patient Visit Report (Discharge Instructions) for additional information. Additional Copies To Nidhi Gardner MD
--- NOTE | 2017-05-27 14:26 | EDITING REQUIRED CODING QUERY ---
CQSUPPORTING DIAGNOSIS NEEDED This pt was admitted for suspicion of a CVA. Glycated Hemoglobin appears on the CVA order set and is required for patients admitted with this diagnosis. A supporting diagnosis is required for the test/procedure performed on this patient in order for us to be reimbursed by the patient's insurance. Please provide a supporting diagnosis for the following test/procedure listed below next to the test name along with your signature. *If there is no additional diagnosis for this patient that would support the following test/procedure please document that below next to the test/procedure. Test(s)/Procedure(s) that require a supporting diagnosis: DOS 05/16/17 GLYCATED HEMOGLOBIN TEST Provider Signature: __R Marisabelm Date: __05/27/17 Thank you Nano [facility] Health Information Management Once completed, please kindly fax back to [phone] For questions please call [phone]
== END 2017-05-18 13:57 | disposition home health service (06) | DRG 689 ==
LOC: C.EDB 21:51 → C.2T 05-17 02:07 → ENRESERV 05-17 02:28
PROVIDERS: ADMIT Internal Medicine; ATTEND Hospitalist
DX: N39.0 Urinary tract infection, site not specified (principal); G93.41 Metabolic encephalopathy; M06.9 Rheumatoid arthritis, unspecified; E03.9 Hypothyroidism, unspecified; Z93.3 Colostomy status; K21.9 Gastro-esophageal reflux disease without esophagitis; E78.5 Hyperlipidemia, unspecified; Z86.73 Personal history of transient ischemic attack (TIA), and cerebral infarction without residual deficits; M32.9 Systemic lupus erythematosus, unspecified; K58.9 Irritable bowel syndrome, unspecified; E66.3 Overweight; Z68.28 Body mass index [BMI] 28.0-28.9, adult; Z87.19 Personal history of other diseases of the digestive system; M19.90 Unspecified osteoarthritis, unspecified site; J45.909 Unspecified asthma, uncomplicated; Z90.49 Acquired absence of other specified parts of digestive tract; G89.29 Other chronic pain; M54.9 Dorsalgia, unspecified; F32.9 Major depressive disorder, single episode, unspecified; R55 Syncope and collapse; R47.81 Slurred speech; Z87.891 Personal history of nicotine dependence; Z80.9 Family history of malignant neoplasm, unspecified; Z83.3 Family history of diabetes mellitus; Z82.49 Family history of ischemic heart disease and other diseases of the circulatory system; Z84.1 Family history of disorders of kidney and ureter; Z82.0 Family history of epilepsy and other diseases of the nervous system; Z90.710 Acquired absence of both cervix and uterus; Z96.649 Presence of unspecified artificial hip joint; D72.829 Elevated white blood cell count, unspecified; Z91.013 Allergy to seafood; Z88.8 Allergy status to other drugs, medicaments and biological substances; Z91.040 Latex allergy status; Z88.5 Allergy status to narcotic agent; Z88.3 Allergy status to other anti-infective agents; Z79.82 Long term (current) use of aspirin; Z79.899 Other long term (current) drug therapy; Z99.81 Dependence on supplemental oxygen

== ENCOUNTER → 2017-05-24 | Outpatient (CLI) | payer BC ==
[~2017-05-24] MED LIST changes: +CYAN100020 PO; +HYDR200T5 PO; -PRED-301 PO; +PRED10TA PO; -SODIUM CHLORIDE 0.9% 1000ML 1,000 ML IV SCH; -TRIM100T20 PO
[2017-05-24 13:43] LABS: ESTIMATED AVERAGE GLUCOSE 137 mg/dl; HA1C FLAG Normal (Normal)
[2017-05-24 13:56] LABS: ALT/SGPT 31 U/L (12-78); BLOOD UREA NITROGEN 17 mg/dl (7-18); CALCIUM 9.1 mg/dl (8.5-10.1); CARBON DIOXIDE 35 mmol/L (21-32); CHLORIDE 102 mmol/L (98-107); GLUCOSE 78 mg/dl (70-99); POTASSIUM 3.9 mmol/L (3.5-5.1); SODIUM 140 mmol/L (136-145)
[2017-05-24 14:07] LABS: CHOLESTEROL 242 mg/dl (0-200); CHOLESTEROL/HDL RATIO 4.1; HDL CHOLESTEROL 59 mg/dl; LDL CHOLESTEROL CALCULATED 118 mg/dl; TRIGLYCERIDES 323 mg/dl (0-150); VERY LOW DENSITY LIPOPROT CALC 65 mg/dl
== END | disposition home or self-care (01) ==
LOC: C.LAB 11:48
PROVIDERS: ATTEND Family Medicine
DX: I10 Essential (primary) hypertension (principal); E03.9 Hypothyroidism, unspecified; E78.00 Pure hypercholesterolemia, unspecified; E11.9 Type 2 diabetes mellitus without complications

== ENCOUNTER → 2017-07-06 | Outpatient (CLI) | payer BC ==
[2017-07-06 18:39] LABS: URINE APPEARANCE CLEAR (CLEAR); URINE BILIRUBIN NEG (NEG); URINE COLOR YELLOW; URINE NITRITE POS (NEG); URINE SPECIFIC GRAVITY 1.014 (1.000-1.030); UROBILINOGEN NEG (NEG)
[2017-07-06 18:48] LABS: MANUAL MICROSCOPIC REQUIRED? NO; REVIEW REQ? NO
== END | disposition home or self-care (01) ==
LOC: C.LABSPEC 18:03
PROVIDERS: ATTEND Nurse Practitioner Adult Health
DX: N39.0 Urinary tract infection, site not specified (principal)

== ENCOUNTER → 2017-07-29 | Outpatient (CLI) | payer BC ==
[2017-07-29 16:51] LABS: BASO % 0.3 %; BASO ABS # 0.05 K/uL (0-0.2); COMPLETE YES; EOS % 1.8 %; HEMATOCRIT 37.3 % (37-47); IG% 0.8 %; LYMPH % 10.4 %; LYMPH ABS # 1.66 K/uL (1.2-3.4); MEAN CELL VOLUME 96.1 fL (80-100); MEAN CORPUSCULAR HEMOGLOBIN 30.9 pg (25-34); MEAN CORPUSCULAR HGB CONC 32.2 g/dl (32-36); MEAN PLATELET VOLUME 9.7 fL (7.4-10.4); MONO % 8.3 %; NEUT % 78.4 %; PLATELET COUNT 277 K/uL (130-400); RED BLOOD COUNT 3.88 M/uL (4.2-5.4); WHITE BLOOD COUNT 15.99 K/uL (4.8-10.8)
[2017-07-29 17:01] LABS: ALT/SGPT 32 U/L (12-78); AST/SGOT 17 U/L (15-37); BLOOD UREA NITROGEN 16 mg/dl (7-18); BUN/CREATININE RATIO 13.7 (10-20); CALCIUM 8.6 mg/dl (8.5-10.1); CARBON DIOXIDE 28 mmol/L (21-32); CHLORIDE 105 mmol/L (98-107); CREATININE 1.19 mg/dl (0.60-1.20); GLUCOSE 150 mg/dl (70-99); SODIUM 140 mmol/L (136-145)
[2017-07-29 17:12] LABS: ALKALINE PHOSPHATASE 85 U/L (45-117)
== END | disposition home or self-care (01) ==
LOC: C.LABBC 14:08
PROVIDERS: ATTEND Neuromusculoskeletal Medicine & OMM
DX: R53.83 Other fatigue (principal); R30.0 Dysuria

== ENCOUNTER → 2017-08-27 | Outpatient (CLI) | payer BC | END | disposition home or self-care (01) | LOC: C.PATHSPEC 15:27 | PROVIDERS: ATTEND Urology | DX: N82.4 Other female intestinal-genital tract fistulae (principal); N39.0 Urinary tract infection, site not specified; R32 Unspecified urinary incontinence ==

== ENCOUNTER 2017-08-31 17:40 | Emergency (ER) | payer BC ==
[~2017-08-31] VITALS: Ht 160 cm; Wt 73.2 kg
[2017-08-31 17:43] VITALS: TEMP 36.7; Ht 160 cm; Wt 73.2 kg
[2017-08-31 18:20] LABS: BASO % 0.2 %; BASO ABS # 0.03 K/uL (0-0.2); COMPLETE YES; EOS % 0.3 %; HEMATOCRIT 40.4 % (37-47); IG% 1.1 %; LYMPH % 7.9 %; LYMPH ABS # 1.31 K/uL (1.2-3.4); MEAN CELL VOLUME 94.2 fL (80-100); MEAN CORPUSCULAR HEMOGLOBIN 29.8 pg (25-34); MEAN CORPUSCULAR HGB CONC 31.7 g/dl (32-36); MEAN PLATELET VOLUME 9.7 fL (7.4-10.4); MONO % 3.9 %; NEUT % 86.6 %; PLATELET COUNT 280 K/uL (130-400); RED BLOOD COUNT 4.29 M/uL (4.2-5.4); WHITE BLOOD COUNT 16.51 K/uL (4.8-10.8)
[2017-08-31 18:22] LABS: URINE APPEARANCE CLEAR (CLEAR); URINE BILIRUBIN NEG (NEG); URINE COLOR YELLOW; URINE NITRITE NEG (NEG); URINE PH 5.5 (4.5-7.5); URINE SPECIFIC GRAVITY 1.015 (1.000-1.030); UROBILINOGEN NEG (NEG); ZZUR CULT IF INDIC CLEAN CATCH YES
[2017-08-31 18:25] LABS: MANUAL MICROSCOPIC REQUIRED? NO; REVIEW REQ? NO
--- NOTE | 2017-08-31 18:29 | EMERGENCY ROOM VISIT NOTE ---
ED Visit Note First contact with patient: 17:47 I have personally seen and evaluated the patient with the physician financial services assistant. I agree with the diagnostic/management decisions and have personally been involved in these decisions and agree with the diagnosis.
[2017-08-31 18:40] LABS: BUN/CREATININE RATIO 14.3 (10-20); CALCIUM 8.6 mg/dl (8.5-10.1); CREATININE 1.25 mg/dl (0.60-1.20); POTASSIUM 4.1 mmol/L (3.5-5.1)
[2017-08-31] MEDS ORDERED: CEFTRIAXONE SOD INJ 1 GM ADDVIAL IV STA (18:54)
[2017-08-31 19:04] VITALS: BP 133/66; PULSE 100; O2SAT 91
[2017-08-31] MEDS ORDERED: TRIM100T PO (19:14)
[2017-08-31] MEDS ORDERED: DILT120C68 PO (19:14)
[2017-08-31] MEDS ORDERED: CEFD1CAP14 PO (19:16)
--- NOTE | 2017-08-31 19:35 | EMERGENCY ROOM VISIT NOTE ---
History First contact with patient: 17:47 Chief Complaint: URINARY SYMPTOMS Stated Complaint: URINARY SX Nursing Triage Summary: triage note: Pt reports "i have a urinary tract infection." pt reports for the past 6 weeks chills, sweats, weakness, pain with urination and urinary frequency. "i have been treated for it two differecnt times with oral antibiotics." History of Present Illness The patient is a 86 year old female who presents to the Emergency Room with complaints of urinary frequency and slight dysuria. She also admits to feeling chilled but has not taken her temperature. The patient states that she has had the symptoms for several weeks. She was in her doctor's office on August 27 and a catheterized her to get a urine sample. She states that she started on antibiotics, Cedinir 300 mg twice a day only yesterday. Therefore she has only had a day and a half of treatment. The patient states her symptoms are not any better so she called her doctor and was instructed to come here. The patient denies any abdominal pain, nausea or vomiting. 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 The patient states she is status post hysterectomy. The patient has allergies to multiple antibiotics including Macrobid and the quinolones. Review of Systems 10 system review was performed and was negative unless stated otherwise history of present illness. Past Medical/Surgical History Medical Problems: (1) Altered mental status (2) Ambulatory dysfunction (3) Arthritis (4) Asthma (5) Cholecystectomy (6) Chronic back pain (7) Depression (8) Diverticulitis (9) Fall from ground level (10) FUO (fever of unknown origin) (11) Gastroesophageal reflux disease (12) Generalized weakness (13) Hyperlipidemia (14) Hypothyroidism (15) IBS (16) Impacted cerumen (17) Lupus (18) Major depressive disorder, recurrent episode with anxious distress (19) Osteoarthritis (20) Pituitary adenoma (21) pituitary gland removal (22) Sepsis (23) SIRS (systemic inflammatory response syndrome) (24) Slurred speech (25) TIA (26) UTI (urinary tract infection) (27) Vasovagal syncope (28) Viral syndrome Surgical Problems: (1) H/O: hysterectomy (2) History of hip replacement (3) Hx of cholecystectomy Family History Cancer Diabetes mellitus Gallbladder disease Heart disease Hypertension Kidney disease Kidney stones Seizures Social History Smoking Status: Never Smoker Alcohol Use: none Drug Use: none Marital Status: Housing Status: lives alone Occupation Status: retired Current/Historical Medications Scheduled Ascorbic Acid (Ascorbic Acid), 500 MG PO DAILY Aspirin (Aspirin Ec), 81 MG PO DAILY B-Complex Vitamins (Vitamin B Complex), 1 TAB PO HS Cefdinir (Omnicef), 300 MG PO Q12H Cholecalciferol (Vitamin D-3), 2,000 UNITS PO DAILY Cyanocobalamin (Vitamin B12), 1,000 MCG PO HS Dexlansoprazole (Dexilant), 60 MG PO BID Diltiazem Hcl Ext Rel (Tiazac), 120 MG PO DAILY Duloxetine Hcl (Cymbalta), 60 MG PO DAILY Duloxetine Hcl (Cymbalta), 30 MG PO DAILY Furosemide (Lasix), 40 MG PO QAM Gabapentin (Neurontin), 300 MG PO TID Home O2 Therapy (Oxygen), 3 LITERS NA PRN Hydroxychloroquine Sulfate (Plaquenil), 200 MG PO BID Levothyroxine Sodium (Synthroid), 88 MCG PO QAM Ocuvite Preservision (Ocuvite Preservision), 1 TAB PO DAILY Oxycodone HCl (Oxycontin), 10 MG PO BID Polyethylene Glycol 3350 (Miralax), 17 GM PO BID Prednisone Tab (Prednisone), 12.5 MG PO DAILY Quetiapine Fumarate (Seroquel), 100 MG PO HS Trimethoprim (Proloprim), 100 MG PO HS Scheduled PRN Bisacodyl (Dulcolax), 5 MG PO DAILY PRN for Constipation Diclofenac Sodium (Topical) (Voltaren 1% Top Gel), 4 GM TOP QID PRN for Pain Docusate Sodium (Colace), 200 MG PO DAILY PRN for Constipation Ondansetron Odt (Zofran Odt), 8 MG SL Q6H PRN for Nausea Physical Exam Vital Signs Date Time Temp Pulse Resp B/P (MAP) Pulse Ox O2 Delivery O2 Flow Rate FiO2 08/31/17 19:04 100 18 133/66 91 Room Air 08/31/17 17:43 36.7 106 20 125/65 93 Room Air Physical Exam GENERAL: 86-year-old white female appears in no acute distress. MENTAL Status: Alert and oriented 3. MOUTH: Mucosa is moist NECK: Supple, no lymphadenopathy noted. No carotid bruits noted. LUNGS: Clear auscultation without wheezes rales or rhonchi. CARDIAC: Regular rate and rhythm without murmur. Pulses is full and equal throughout. BACK: Mild CVA tenderness noted bilaterally. ABDOMEN: Positive bowel sounds all 4 quadrants. Soft, mild tenderness palpation over the suprapubic region and right lower quadrant otherwise nontender to palpation without organomegaly or masses. Colonoscopy bag in place. EXTREMITIES: No cyanosis or edema noted. Medical Decision & Procedures Laboratory Results 08/31/17 18:10 Red Blood Count 4.29, Mean Corpuscular Volume 94.2, Mean Corpuscular Hemoglobin 29.8, Mean Corpuscular Hemoglobin Concent 31.7, Mean Platelet Volume 9.7, Neutrophils (%) (Auto) 86.6, Lymphocytes (%) (Auto) 7.9, Monocytes (%) (Auto) 3.9, Eosinophils (%) (Auto) 0.3, Basophils (%) (Auto) 0.2, Neutrophils # (Auto) 14.29, Lymphocytes # (Auto) 1.31, Monocytes # (Auto) 0.65, Eosinophils # (Auto) 0.05, Basophils # (Auto) 0.03 08/31/17 18:10 Test 08/31/17 18:10 White Blood Count 16.51 K/uL (4.8-10.8) Red Blood Count 4.29 M/uL (4.2-5.4) Hemoglobin 12.8 g/dL (12.0-16.0) Hematocrit 40.4 % (37-47) Mean Corpuscular Volume 94.2 fL (80-100) Mean Corpuscular Hemoglobin 29.8 pg (25-34) Mean Corpuscular Hemoglobin Concent 31.7 g/dl (32-36) Platelet Count 280 K/uL (130-400) Mean Platelet Volume 9.7 fL (7.4-10.4) Neutrophils (%) (Auto) 86.6 % Lymphocytes (%) (Auto) 7.9 % Monocytes (%) (Auto) 3.9 % Eosinophils (%) (Auto) 0.3 % Basophils (%) (Auto) 0.2 % Neutrophils # (Auto) 14.29 K/uL (1.4-6.5) Lymphocytes # (Auto) 1.31 K/uL (1.2-3.4) Monocytes # (Auto) 0.65 K/uL (0.11-0.59) Eosinophils # (Auto) 0.05 K/uL (0-0.5) Basophils # (Auto) 0.03 K/uL (0-0.2) RDW Standard Deviation 50.3 fL (36.4-46.3) RDW Coefficient of Variation 14.9 % (11.5-14.5) Immature Granulocyte % (Auto) 1.1 % Immature Granulocyte # (Auto) 0.18 K/uL (0.00-0.02) Urine Color YELLOW Urine Appearance CLEAR (CLEAR) Urine pH 5.5 (4.5-7.5) Urine Specific Gans 1.015 (1.000-1.030) Urine Protein NEG (NEG) Urine Glucose (UA) NEG (NEG) Urine Ketones NEG (NEG) Urine Occult Blood NEG (NEG) Urine Nitrite NEG (NEG) Urine Bilirubin NEG (NEG) Urine Urobilinogen NEG (NEG) Urine Leukocyte Esterase MODERATE (NEG) Urine WBC (Auto) 10-30 /hpf (0-5) Urine RBC (Auto) 0-4 /hpf (0-4) Urine Hyaline Casts (Auto) 1-5 /lpf (0-5) Urine Epithelial Cells (Auto) 5-10 /lpf (0-5) Urine Bacteria (Auto) NEG (NEG) Anion Gap 10.0 mmol/L (3-11) Est Creatinine Clear Calc Drug Dose 32.1 ml/min Estimated GFR () 45.7 Estimated GFR (Non- 39.5 BUN/Creatinine Ratio 14.3 (10-20) Calcium Level 8.6 mg/dl (8.5-10.1) Medications Administered Medications (Trade) Dose Ordered Sig/Taye Route Start Time Stop Time Status Last Admin Dose Admin Ceftriaxone Sodium (Rocephin Inj) 1 gm NOW STAT IV 08/31/17 18:54 08/31/17 18:56 DC 08/31/17 19:03 1 GM ED Course The patient was evaluated by myself and independently by Dr. Montes De Oca.. The patient's EMR medication list were reviewed. The patient's urine culture from August 27 grew out Klebsiella pneumonia which is susceptible to most antibiotics. Other cephalosporins are listed with susceptibility although Cefdinir is not specifically listed. IV access was obtained. CBC and differential and renal profile was ordered. Urinalysis was ordered. Labs are reviewed. The patient's white count was elevated at 16,000. Renal profile was unremarkable. Urinalysis revealed large amount of leukocytes but no nitrates. Culture is pending. The patient's case was discussed with Dr. Montes De Oca who agree with treatment plan. The patient was given 1 g of Rocephin IV. The patient was discharged home in stable condition. Medical Decision The patient has only been on antibiotics for less than 48 hours for her current UTI therefore she will continue treatment but was given an IV dose of an antibiotic to hasten resolution of the UTI. Labs were drawn to establish baseline in case the patient's symptoms worsen. [place] Drug Monitoring Program Search Results: patient reviewed within database Medication Reconcilliation Current Medication List: was personally reviewed by me Blood Pressure Screening Patient's blood pressure: Normal blood pressure Impression Primary Impression: UTI (urinary tract infection) Departure Information Dispostion Home / Self-Care Condition GOOD Referrals Nidhi Gadrner MD (PCP) Forms HOME CARE DOCUMENTATION FORM, IMPORTANT VISIT INFORMATION Patient Instructions ED UTI Cystitis Female, My [facility] Additional Instructions Drink a lot of water. Continue antibiotic as prescribed by your family doctor. Follow-up with your family doctor in in 3 days for recheck. If symptoms worsen in the interim, return to ER. Problem Qualifiers Primary Impression: UTI (urinary tract infection) Urinary tract infection type: acute cystitis Hematuria presence: without hematuria Qualified Codes: N30.00 - Acute cystitis without hematuria
== END 2017-08-31 19:42 | disposition home or self-care (01) ==
LOC: C.EDB 17:41 → C.EDC 19:42
DX: N30.00 Acute cystitis without hematuria (principal); Z93.3 Colostomy status; J45.909 Unspecified asthma, uncomplicated; M19.90 Unspecified osteoarthritis, unspecified site; K21.9 Gastro-esophageal reflux disease without esophagitis; M32.9 Systemic lupus erythematosus, unspecified; E03.9 Hypothyroidism, unspecified; F32.9 Major depressive disorder, single episode, unspecified; Z87.440 Personal history of urinary (tract) infections; Z86.73 Personal history of transient ischemic attack (TIA), and cerebral infarction without residual deficits; Z90.49 Acquired absence of other specified parts of digestive tract; Z90.710 Acquired absence of both cervix and uterus; Z96.649 Presence of unspecified artificial hip joint; Z83.3 Family history of diabetes mellitus; Z82.49 Family history of ischemic heart disease and other diseases of the circulatory system; Z84.1 Family history of disorders of kidney and ureter; Z82.0 Family history of epilepsy and other diseases of the nervous system; Z79.899 Other long term (current) drug therapy

== ENCOUNTER → 2017-09-05 | Outpatient (CLI) | payer BC ==
[~2017-09-05] MED LIST changes: +CEFD1CAP14 PO; +DILT120C68 PO; +TRIM100T PO
[2017-09-05 13:14] LABS: BASO % 0.2 %; BASO ABS # 0.04 K/uL (0-0.2); COMPLETE YES; EOS % 2.1 %; HEMATOCRIT 39.9 % (37-47); IG% 1.2 %; LYMPH % 14.2 %; LYMPH ABS # 2.29 K/uL (1.2-3.4); MEAN CELL VOLUME 95.5 fL (80-100); MEAN CORPUSCULAR HEMOGLOBIN 29.4 pg (25-34); MEAN CORPUSCULAR HGB CONC 30.8 g/dl (32-36); MEAN PLATELET VOLUME 9.7 fL (7.4-10.4); MONO % 11.5 %; NEUT % 70.8 %; PLATELET COUNT 262 K/uL (130-400); RED BLOOD COUNT 4.18 M/uL (4.2-5.4); WHITE BLOOD COUNT 16.11 K/uL (4.8-10.8)
[2017-09-05 13:40] LABS: ALT/SGPT 23 U/L (12-78); BLOOD UREA NITROGEN 20 mg/dl (7-18); BUN/CREATININE RATIO 17.8 (10-20); CARBON DIOXIDE 34 mmol/L (21-32); CHLORIDE 99 mmol/L (98-107); CREATININE 1.12 mg/dl (0.60-1.20); GLUCOSE 110 mg/dl (70-99); POTASSIUM 3.5 mmol/L (3.5-5.1); SODIUM 140 mmol/L (136-145)
[2017-09-05 13:43] LABS: ALB/GLOB RATIO 0.9 (0.9-2); ALKALINE PHOSPHATASE 88 U/L (45-117); AST/SGOT 17 U/L (15-37)
== END | disposition home or self-care (01) ==
LOC: C.LAB 12:37
PROVIDERS: ATTEND Urology
DX: N82.4 Other female intestinal-genital tract fistulae (principal); Z79.899 Other long term (current) drug therapy; Z79.52 Long term (current) use of systemic steroids; R76.8 Other specified abnormal immunological findings in serum

== ENCOUNTER → 2017-09-06 | Outpatient (CLI) | payer BC ==
[~2017-09-06] MED LIST changes: +CEFD300C2 PO; +CEFU1TAB35 PO; +CEFU1TAB36 PO; +CRAN405C3 PO; -DILT180C50 PO; +OMEP20CA59 PO; +PHEN-1043 PO
[2017-09-07 11:17] LABS: URINE APPEARANCE CLEAR (CLEAR); URINE BILIRUBIN NEG (NEG); URINE COLOR YELLOW; URINE NITRITE NEG (NEG); URINE PH 5.5 (4.5-7.5); URINE SPECIFIC GRAVITY 1.017 (1.000-1.030); UROBILINOGEN NEG (NEG)
[2017-09-07 11:18] LABS: REVIEW REQ? NO
[2017-09-07 11:19] LABS: MANUAL MICROSCOPIC REQUIRED? NO
== END | disposition home or self-care (01) ==
LOC: C.LABSPEC 11:07
PROVIDERS: ATTEND Neuromusculoskeletal Medicine & OMM
DX: N39.0 Urinary tract infection, site not specified (principal)

== ENCOUNTER 2017-09-07 17:52 | Inpatient (IN) | payer BC, OTHER ==
[~2017-09-07] VITALS: Ht 160 cm; Wt 77.7 kg
[~2017-09-07 17:52] MED LIST changes: -CEFD300C2 PO; -CEFU1TAB35 PO; -CEFU1TAB36 PO; -CRAN405C3 PO; -OMEP20CA59 PO; -PHEN-1043 PO
[2017-09-07] MEDS ORDERED: ONDANSETRON INJ 2 MG/ML 2 ML VIAL IV STA (18:19)
[2017-09-07] MEDS ORDERED: SODIUM CHLORIDE 0.9% 1000ML 1,000 ML IV ONE (18:19)
[2017-09-07] MEDS ORDERED: CEFTRIAXONE SOD INJ 1 GM ADDVIAL IV STA (18:19)
--- NOTE | 2017-09-07 18:28 | EMERGENCY ROOM VISIT NOTE ---
History Report prepared by Master: Praful Copeland Under the Supervision of: Dr. Wyatt Winter D.O. First contact with patient: 18:10 Chief Complaint: URINARY SYMPTOMS Stated Complaint: UTI History of Present Illness The patient is a 86 year old female who presents to the Emergency Room with complaints of abnormal urinary symptoms that began 6 weeks ago. She describes these symptoms as burning with urination, urgency, and frequency. She was seen in the ER two days ago for these symptoms as well. She was diagnosed with a UTI and discharged on Keflex. She states that this has not been working and that her symptoms have persisted. She has been experiencing headache, nausea, weakness, back pain, and pelvic pain as well. She denies any fevers. 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 She had her sigmoid colon removed with an ostomy in place, but they left the fistula along as to not disturb the bladder. She has a history of a complete hysterectomy and a bilateral hip replacement. Source of History: patient Onset: 6 weeks ago Position: other () Symptom Intensity: moderate Quality: other (Urinary burning) Timing: constant Associated Symptoms: + nausea, + abdominal pain (pelvic), + back pain, + urinary symptoms (frequency and urgency as well), + weakness, No fevers Review of Systems See HPI for pertinent positives & negatives. A total of 10 systems reviewed and were otherwise negative. Past Medical & Surgical Medical Problems: (1) Altered mental status (2) Ambulatory dysfunction (3) Arthritis (4) Asthma (5) Cholecystectomy (6) Chronic back pain (7) Depression (8) Diverticulitis (9) Failure of outpatient treatment (10) Fall from ground level (11) FUO (fever of unknown origin) (12) Gastroesophageal reflux disease (13) Generalized weakness (14) Hyperlipidemia (15) Hypothyroidism (16) IBS (17) Impacted cerumen (18) Lupus (19) Major depressive disorder, recurrent episode with anxious distress (20) Osteoarthritis (21) Pituitary adenoma (22) pituitary gland removal (23) Sepsis (24) SIRS (systemic inflammatory response syndrome) (25) Slurred speech (26) TIA (27) Urinary tract infection (28) UTI (urinary tract infection) (29) Vasovagal syncope (30) Viral syndrome Surgical Problems: (1) H/O: hysterectomy (2) History of hip replacement (3) Hx of cholecystectomy Family History Cancer Diabetes mellitus Gallbladder disease Heart disease Hypertension Kidney disease Kidney stones Seizures Social History Smoking Status: Never Smoker Alcohol Use: none Drug Use: none Marital Status: Housing Status: lives alone Occupation Status: retired Current/Historical Medications Scheduled Ascorbic Acid (Ascorbic Acid), 500 MG PO DAILY Aspirin (Aspirin Ec), 81 MG PO DAILY B-Complex Vitamins (Vitamin B Complex), 1 TAB PO HS Cefuroxime Axetil (Cefuroxime Axetil), 1 TAB PO BID Cholecalciferol (Vitamin D-3), 2,000 UNITS PO DAILY Cyanocobalamin (Vitamin B12), 1,000 MCG PO HS Duloxetine Hcl (Cymbalta), 60 MG PO DAILY Duloxetine Hcl (Cymbalta), 30 MG PO DAILY Furosemide (Lasix), 40 MG PO QAM Gabapentin (Neurontin), 300 MG PO TID Home O2 Therapy (Oxygen), 3 LITERS NA PRN Hydroxychloroquine Sulfate (Plaquenil), 200 MG PO BID Ocuvite Preservision (Ocuvite Preservision), 1 TAB PO DAILY Oxycodone HCl (Oxycontin), 10 MG PO BID Polyethylene Glycol 3350 (Miralax), 17 GM PO BID Prednisone Tab (Prednisone), 12.5 MG PO DAILY Quetiapine Fumarate (Seroquel), 100 MG PO HS Trimethoprim (Proloprim), 100 MG PO HS Scheduled PRN Bisacodyl (Dulcolax), 5 MG PO DAILY PRN for Constipation Docusate Sodium (Colace), 200 MG PO DAILY PRN for Constipation Ondansetron Odt (Zofran Odt), 8 MG SL Q6H PRN for Nausea Allergies Coded Allergies: Ciprofloxacin (Verified Allergy, Intermediate, rash, 09/07/17) Quinolones (Verified Allergy, Intermediate, HIVES, 09/07/17) Fluticasone (Verified Allergy, Unknown, ADVAIR, 09/07/17) Lactose Intolerance (Verified Allergy, Unknown, UNKNOWN, 09/07/17) Latex1 -Allergic Contact Dermititis (Verified Allergy, Unknown, RASH, ) Morphine (Verified Allergy, Unknown, HIVES, 09/07/17) Nitrofurantoin (Verified Allergy, Unknown, HIVES, 09/07/17) Salmeterol (Verified Allergy, Unknown, ADVAIR, 09/07/17) Scallop (Verified Allergy, Unknown, UNKNOWN, 09/07/17) Celecoxib (Verified Adverse Reaction, Unknown, barretts esophagus, ) Physical Exam Vital Signs Date Time Temp Pulse Resp B/P (MAP) Pulse Ox O2 Delivery O2 Flow Rate FiO2 09/07/17 23:02 98 16 116/53 93 09/07/17 20:41 95 Room Air 09/07/17 20:40 95 18 112/79 95 09/07/17 18:07 36.8 109 18 116/70 94 Room Air Physical Exam GENERAL: Patient is awake, alert, and in no acute distress. Patient is somewhat anxious but comfortable appearing. EYES: The conjunctivae are clear. The pupils are round and reactive. EARS, NOSE, MOUTH AND THROAT: The nose is without any evidence of any deformity. Mucous membranes are moist tongue is midline NECK: The neck is nontender and supple. RESPIRATORY: Normal respiratory effort is noted there is no evidence of wheezing rhonchi or rales CARDIOVASCULAR: Tachycardic rate with a regular rhythm. No definite murmurs appreciated to auscultation. GASTROINTESTINAL: The abdomen is soft but mildly distended. Bowel sounds are present in all quadrants. Abdomen is tender to the RLQ. No guarding or rigidity. BACK: Right CVA tenderness to percussion. No midline tenderness or or step-off noted range of motion in flexion extension as well as rotation no signs of muscle spasm noted MUSCULOSKELETAL/EXTREMITIES: There is no evidence of gross deformity full range of motion is noted in the hips and shoulders SKIN: There is no obvious evidence of any rash. There are no petechiae, pallor or cyanosis noted. NEUROLOGIC: Patient is awake alert and oriented x3. Medical Decision & Procedures ER Provider Diagnostic Interpretation: Radiology results as stated below per my review and radiologist interpretation: CHEST ONE VIEW PORTABLE CLINICAL HISTORY: Sepsis dyspnea COMPARISON STUDY: 05/17/2017 FINDINGS: The bones soft tissues and hemidiaphragms are normal. The cardiomediastinal silhouette is normal. The lungs are clear. The pulmonary vasculature is normal. IMPRESSION: Negative chest. The above report was generated using voice recognition software. It may contain grammatical, syntax or spelling errors. Electronically signed by: Robinson Turner M.D. 09/07/2017 6:47 PM Dictated Date/Time: 09/07/2017 6:47 PM ABD/PELVIS IV AND ORAL CONT CT DOSE: 676.19 mGy.cm HISTORY: Flank pain RLQ pain TECHNIQUE: Multiaxial CT images of the abdomen and pelvis were performed following the use of intravenous and oral contrast. A dose lowering technique was utilized adhering to the principles of ALARA. COMPARISON STUDY: 05/14/2016 FINDINGS: Lung bases are clear. Evidence for prior cholecystectomy. Stable mild biliary ductal prominence. Spleen is uniform. Ureters demonstrates moderate atrophy and fatty replacement. This is unchanged. Several nonobstructing renal calcifications. Findings consistent with scattered colonic diverticulosis. Bowel pattern is nonobstructive. There is a left anterior ostomy. There are no obstructive characteristics at that site. The visualized components of the appendix are unremarkable. IMPRESSION: 1. Nonobstructive bowel pattern. 2. Several nonobstructing renal calcifications. 3. Left anterior ostomy considered patent and nonobstructive. 4. Scattered colonic diverticulosis with no evidence for acute diverticulitis. 5. Operative changes consistent with bilateral hip arthroplasties as well as prior cholecystectomy The above report was generated using voice recognition software. It may contain grammatical, syntax or spelling errors. Electronically signed by: Robinson Turner M.D. 09/07/2017 9:09 PM Dictated Date/Time: 09/07/2017 9:05 PM Laboratory Results Test 09/07/17 18:54 09/07/17 19:03 09/07/17 19:05 Immature Granulocyte % (Auto) 0.9 % White Blood Count 17.70 K/uL (4.8-10.8) Red Blood Count 4.31 M/uL (4.2-5.4) Hemoglobin 12.7 g/dL (12.0-16.0) Hematocrit 40.7 % (37-47) Mean Corpuscular Volume 94.4 fL (80-100) Mean Corpuscular Hemoglobin 29.5 pg (25-34) Mean Corpuscular Hemoglobin Concent 31.2 g/dl (32-36) Platelet Count 265 K/uL (130-400) Mean Platelet Volume 9.6 fL (7.4-10.4) Neutrophils (%) (Auto) 86.1 % Lymphocytes (%) (Auto) 7.6 % Monocytes (%) (Auto) 4.8 % Eosinophils (%) (Auto) 0.4 % Basophils (%) (Auto) 0.2 % Neutrophils # (Auto) 15.24 K/uL (1.4-6.5) Lymphocytes # (Auto) 1.34 K/uL (1.2-3.4) Monocytes # (Auto) 0.85 K/uL (0.11-0.59) Eosinophils # (Auto) 0.07 K/uL (0-0.5) Basophils # (Auto) 0.04 K/uL (0-0.2) Immature Granulocyte # (Auto) 0.16 K/uL (0.00-0.02) Erythrocyte Sedimentation Rate 47 mm/hr (0-21) Prothrombin Time 10.5 SECONDS (9.0-12.0) Prothromb Time International Ratio 1.0 (0.9-1.1) Activated Partial Thromboplast Time 29.2 SECONDS (21.0-31.0) Partial Thromboplastin Ratio 1.1 Magnesium Level 2.1 mg/dl (1.8-2.4) Total Bilirubin 0.2 mg/dl (0.2-1) Aspartate Amino Transf (AST/SGOT) 16 U/L (15-37) Alanine Aminotransferase (ALT/SGPT) 25 U/L (12-78) Alkaline Phosphatase 103 U/L (45-117) Total Creatine Kinase 55 U/L (26-192) Creatine Kinase MB 1.4 ng/ml (0.5-3.6) Creatine Kinase MB Ratio 2.5 (0-3.0) Troponin I < 0.015 ng/ml (0-0.045) C-Reactive Protein 2.41 mg/dl (0-0.29) Total Protein 7.3 gm/dl (6.4-8.2) Albumin 3.6 gm/dl (3.4-5.0) Globulin 3.7 gm/dl (2.5-4.0) Albumin/Globulin Ratio 1.0 (0.9-2) Lipase 75 U/L (73-393) Bedside Lactic Acid Venous 2.93 mmol/L (0.90-1.70) Urine Color YELLOW Urine Appearance CLEAR (CLEAR) Urine pH 5.0 (4.5-7.5) Urine Specific [place] 1.016 (1.000-1.030) Urine Protein NEG (NEG) Urine Glucose (UA) NEG (NEG) Urine Ketones NEG (NEG) Urine Occult Blood TRACE (NEG) Urine Nitrite NEG (NEG) Urine Bilirubin NEG (NEG) Urine Urobilinogen NEG (NEG) Urine Leukocyte Esterase SMALL (NEG) Urine WBC (Auto) 5-10 /hpf (0-5) Urine RBC (Auto) 5-10 /hpf (0-4) Urine Hyaline Casts (Auto) 1-5 /lpf (0-5) Urine Epithelial Cells (Auto) 10-20 /lpf (0-5) Urine Bacteria (Auto) NEG (NEG) Laboratory results per my review. Medications Administered Medications (Trade) Dose Ordered Sig/Taye Route Start Time Stop Time Status Last Admin Dose Admin Sodium Chloride 1,000 ml @ 999 mls/hr Q1H1M ONCE IV 09/07/17 18:19 09/07/17 19:19 DC 09/07/17 19:30 999 MLS/HR Ceftriaxone Sodium (Rocephin Inj) 1 gm NOW STAT IV 09/07/17 18:19 09/07/17 18:21 DC 09/07/17 19:30 1 GM Ondansetron HCl (Zofran Inj) 4 mg NOW STAT IV 09/07/17 18:19 09/07/17 18:21 DC 09/07/17 19:30 4 MG ECG Indication: weakness Rate (beats per minute): 102 Rhythm: sinus tachycardia Findings: no ectopy, other (no acute STS abnormalities) Comparison ECG Date: 05/16/17 Change: no significant change ED Course 1809: The patient was evaluated in room B4B. A complete history and physical examination were performed. 1818: Ordered Zofran Inj 4 mg IV, Rocephin Inj 1 gm IV, NSS 1,000 ml @ 999 mls/ hr IV 2029: Ordered Morphine Sulfate 4 mg IV 2124: Upon reevaluation, the patient is resting. I discussed results and treatment plan with her. She verbalizes agreement and understanding. I spoke with Dr. Hawkins - resident physician with Dr. Dunaway of the [facility]. The patient will be evaluated for further management and care. Medical Decision Differential diagnosis: Etiologies such as appendicitis, diverticulitis, PUD, biliary pathology, UTI, pancreatitis, obstruction, mesenteric ischemia, aortic pathology, infections, inflammatory bowel disease, renal colic, as well as others were entertained. Nursing notes reviewed. Patient's previous electronic medical records reviewed. The patient is an 86-year-old female who presented to the emergency department for evaluation of abdominal pain and urinary symptoms. The patient was recently diagnosed with urinary tract infection. She was started on antibiotic but feels as though her symptoms are not improving. I reviewed the patient's previous electronic medical records as well as her previous urine cultures. The patient was given IV antibiotics and IV fluids. On subsequent reevaluation she was feeling somewhat improved. Since the patient was already taking an outpatient regimen and has a very elevated white blood cell count I was concerned that she may have a complicated urinary tract infection or pyelonephritis. This reason I discussed her case with the on-call [facility] hospitalist group. They have agreed to evaluate the patient in the emergency department for further management and disposition. Medication Reconcilliation Current Medication List: was personally reviewed by me Blood Pressure Screening Patient's blood pressure: Normal blood pressure Blood pressure disposition: Did not require urgent referral Consults Time Called: 2119 Consulting Physician: Dr. Hawkins - Resident physician with Dr. Dunaway of [facility] Returned Call: [phone] I discussed the patient's case with him. The patient will be evaluated for further management. Impression Primary Impression: Pyelonephritis Additional Impression: Abdominal pain Scribe Attestation The scribe's documentation has been prepared under my direction and personally reviewed by me in its entirety. I confirm that the note above accurately reflects all work, treatment, procedures, and medical decision making performed by me. Departure Information Dispostion Being Evaluated By Hospitalist Referrals Jj Buenrostro MD, Urology (PCP) Patient Instructions My [facility] Health Problem Qualifiers Additional Impression: Abdominal pain Abdominal location: generalized Qualified Codes: R10.84 - Generalized abdominal pain
--- NOTE | 2017-09-07 18:48 | DIAGNOSTIC IMAGING REPORT ---
CHEST ONE VIEW PORTABLE CLINICAL HISTORY: Sepsis dyspnea COMPARISON STUDY: 05/17/2017 FINDINGS: The bones soft tissues and hemidiaphragms are normal. The cardiomediastinal silhouette is normal. The lungs are clear. The pulmonary vasculature is normal. IMPRESSION: Negative chest. The above report was generated using voice recognition software. It may contain grammatical, syntax or spelling errors. Electronically signed by: Robinson Turner M.D. 09/07/2017 6:47 PM Dictated Date/Time: 09/07/2017 6:47 PM
[2017-09-07 19:11] LABS: BASO % 0.2 %; BASO ABS # 0.04 K/uL (0-0.2); COMPLETE YES; EOS % 0.4 %; HEMATOCRIT 40.7 % (37-47); IG% 0.9 %; LYMPH % 7.6 %; LYMPH ABS # 1.34 K/uL (1.2-3.4); MEAN CELL VOLUME 94.4 fL (80-100); MEAN CORPUSCULAR HEMOGLOBIN 29.5 pg (25-34); MEAN CORPUSCULAR HGB CONC 31.2 g/dl (32-36); MEAN PLATELET VOLUME 9.6 fL (7.4-10.4); MONO % 4.8 %; NEUT % 86.1 %; PLATELET COUNT 265 K/uL (130-400); RED BLOOD COUNT 4.31 M/uL (4.2-5.4)
[2017-09-07] MEDS ORDERED: CEFU1TAB35 PO (19:13)
[2017-09-07] MEDS ORDERED: CEFU1TAB36 PO (19:13)
[2017-09-07 19:25] LABS: PARTIAL THROMBOPLASTIN RATIO 1.1; PROTHROMBIN TIME (PATIENT) 10.5 SECONDS (9.0-12.0)
[2017-09-07] MEDS ORDERED: OPTIRAY 320 IV PRN (19:30)
[2017-09-07 19:35] LABS: URINE APPEARANCE CLEAR (CLEAR); URINE BILIRUBIN NEG (NEG); URINE COLOR YELLOW; URINE NITRITE NEG (NEG); URINE SPECIFIC GRAVITY 1.016 (1.000-1.030); UROBILINOGEN NEG (NEG); ZZURINE CULT IF INDIC CATH NO
[2017-09-07 19:36] LABS: ALT/SGPT 25 U/L (12-78); BLOOD UREA NITROGEN 15 mg/dl (7-18); BUN/CREATININE RATIO 13.5 (10-20); C-REACTIVE PROTEIN 2.41 mg/dl (0-0.29); CALCIUM 9.1 mg/dl (8.5-10.1); CARBON DIOXIDE 32 mmol/L (21-32); CHLORIDE 96 mmol/L (98-107); CREATININE 1.13 mg/dl (0.60-1.20); GLUCOSE 192 mg/dl (70-99); MAGNESIUM 2.1 mg/dl (1.8-2.4); POTASSIUM 3.4 mmol/L (3.5-5.1); SODIUM 135 mmol/L (136-145)
[2017-09-07 19:37] LABS: MANUAL MICROSCOPIC REQUIRED? NO; REVIEW REQ? NO
[2017-09-07 19:40] LABS: ALKALINE PHOSPHATASE 103 U/L (45-117); AST/SGOT 16 U/L (15-37); CKMB/CK RATIO 2.5 (0-3.0)
[2017-09-07] MEDS ORDERED: MoRPHine SULFATE 4 MG/ML 1 ML CARP\\VIAL IV PRN (20:30)
--- NOTE | 2017-09-07 21:11 | DIAGNOSTIC IMAGING REPORT ---
ABD/PELVIS IV AND ORAL CONT CT DOSE: 676.19 mGy.cm HISTORY: Flank pain RLQ pain TECHNIQUE: Multiaxial CT images of the abdomen and pelvis were performed following the use of intravenous and oral contrast. A dose lowering technique was utilized adhering to the principles of ALARA. COMPARISON STUDY: 05/14/2016 FINDINGS: Lung bases are clear. Evidence for prior cholecystectomy. Stable mild biliary ductal prominence. Spleen is uniform. Ureters demonstrates moderate atrophy and fatty replacement. This is unchanged. Several nonobstructing renal calcifications. Findings consistent with scattered colonic diverticulosis. Bowel pattern is nonobstructive. There is a left anterior ostomy. There are no obstructive characteristics at that site. The visualized components of the appendix are unremarkable. IMPRESSION: 1. Nonobstructive bowel pattern. 2. Several nonobstructing renal calcifications. 3. Left anterior ostomy considered patent and nonobstructive. 4. Scattered colonic diverticulosis with no evidence for acute diverticulitis. 5. Operative changes consistent with bilateral hip arthroplasties as well as prior cholecystectomy The above report was generated using voice recognition software. It may contain grammatical, syntax or spelling errors. Electronically signed by: Robinson Turner M.D. 09/07/2017 9:09 PM Dictated Date/Time: 09/07/2017 9:05 PM
[2017-09-07] MEDS ORDERED: BISACODYL 5 MG TABEC PO PRN (23:15)
[2017-09-07] MEDS ORDERED: DOCUSATE SODIUM 100 MG CAP PO PRN (23:15)
[2017-09-07] MEDS ORDERED: ONDANSETRON 8MG OD TAB SL PRN (23:15)
[2017-09-07] MEDS ORDERED: MAGNESIUM HYDROXIDE SUSP 30 ML UDC PO PRN (23:15)
[2017-09-07] MEDS ORDERED: ALUMINUM/MAGNESIUM/SIMETH (MAALOX MAX) 30 ML UDC PO PRN (23:15)
[2017-09-07] MEDS ORDERED: POLYETHYLENE (MIRALAX) 17 GM PACK PO PRN (23:15)
[2017-09-07] MEDS ORDERED: PIPERACILL/TAZOBAC CONSULT ACTIVE PRN (23:30)
[2017-09-07 23:33] VITALS: BP 101/55; PULSE 94; TEMP 36.4; O2SAT 94; Ht 160 cm; Wt 77.7 kg
[2017-09-08] MEDS ORDERED: PIPERACILL/TAZOBAC IV 3.375 GM in DEXTROSE 5% 100ML IV ONE (00:30)
[2017-09-08] MEDS: NSS + 20MEQ KCL 1000ML 1,000 ML IV SCH ×3 (01:05→21:43)
--- NOTE | 2017-09-08 02:31 | History and Physical ---
History & Physical Date & Time of Service: Sep 08, 2017 at 02:12 Chief Complaint: Failure Of Outpatient Treatment, Uti Primary Care Physician: Nidhi Gardner MD History of Present Illness Source: patient, hospital records Is a pleasant 86-year-old female who presents to the emergency room with several weeks of urinary urgency, burning, and frequency. In addition to this, the patient describes feeling generally weak and reports a generalized sense of malaise. She is also felt chills, diaphoresis, nausea, and for the past several days and had very poor oral intake. The patient denies any other symptoms including chest pain, shortness of breath , wheezing, orthopnea, lotion edema. She has not had any abdominal pain or diarrhea. The patient states that she has been on courses of antibiotics over the past 3 weeks. These include 2 rounds of Keflex, one round of Bactrim, and more recently another antibiotic which she cannot name, though by review of her medication list is suspect it's Cefuroxime. The patient does report previous issues with urinary tract infections. 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 However currently 2 years ago this was corrected surgically. Past Medical/Surgical History Medical Problems: Rheumatoid and Osteoarthritis Status: Chronic (2) Asthma Status: Chronic (3) Cholecystectomy Status: Resolved (4) Chronic back pain Status: Chronic (5) Depression Status: Chronic (6) Diverticulitis Status: Chronic (7) Gastroesophageal reflux disease Status: Chronic (8) Hyperlipidemia Status: Chronic (9) Hypothyroidism Status: Chronic (10) IBS Status: Chronic (11) Impacted cerumen Status: Chronic (12) Lupus Status: Chronic (13) Osteoarthritis Status: Chronic (14) Pituitary adenoma Status: Chronic (15) pituitary gland removal Status: Chronic (16) TIA Status: Chronic (17) Vasovagal syncope Status: Chronic Surgical Problems: (1) H/O: hysterectomy Status: Chronic (2) History of hip replacement Status: Chronic (3) Hx of cholecystectomy Status: Chronic Family History Cancer Diabetes mellitus Gallbladder disease Heart disease Hypertension Kidney disease Kidney stones Seizures Social History Smoking Status: Former Smoker Smokeless Tobacco Use: No Alcohol Use: none Drug Use: none Marital Status: Housing status: lives alone Occupational Status: retired Immunizations History of Influenza Vaccine: N/A Influenza Vaccine Date: Jul 24, 2007 History of Tetanus Vaccine?: UTD History of Pneumococcal: Yes Pneumococcal Date: May 09, 1990 History of Hepatitis B Vaccine: Yes Hepatitis Immunization Date: May 09, 1985 Multi-Drug Resistant Organisms History of MDRO: No Allergies Coded Allergies: Ciprofloxacin (Verified Allergy, Intermediate, rash, 09/07/17) Quinolones (Verified Allergy, Intermediate, HIVES, 09/07/17) Fluticasone (Verified Allergy, Unknown, ADVAIR, 09/07/17) Lactose Intolerance (Verified Allergy, Unknown, UNKNOWN, 09/07/17) Latex1 -Allergic Contact Dermititis (Verified Allergy, Unknown, RASH, ) Morphine (Verified Allergy, Unknown, HIVES, 09/07/17) Nitrofurantoin (Verified Allergy, Unknown, HIVES, 09/07/17) Salmeterol (Verified Allergy, Unknown, ADVAIR, 09/07/17) Scallop (Verified Allergy, Unknown, UNKNOWN, 09/07/17) Celecoxib (Verified Adverse Reaction, Unknown, barretts esophagus, ) Home Medications Scheduled Ascorbic Acid (Ascorbic Acid), 500 MG PO DAILY Aspirin (Aspirin Ec), 81 MG PO DAILY B-Complex Vitamins (Vitamin B Complex), 1 TAB PO HS Cefuroxime Axetil (Cefuroxime Axetil), 1 TAB PO BID Cholecalciferol (Vitamin D-3), 2,000 UNITS PO DAILY Cyanocobalamin (Vitamin B12), 1,000 MCG PO HS Duloxetine Hcl (Cymbalta), 60 MG PO DAILY Duloxetine Hcl (Cymbalta), 30 MG PO DAILY Furosemide (Lasix), 40 MG PO QAM Gabapentin (Neurontin), 300 MG PO TID Home O2 Therapy (Oxygen), 3 LITERS NA PRN Hydroxychloroquine Sulfate (Plaquenil), 200 MG PO BID Ocuvite Preservision (Ocuvite Preservision), 1 TAB PO DAILY Oxycodone HCl (Oxycontin), 10 MG PO BID Polyethylene Glycol 3350 (Miralax), 17 GM PO BID Prednisone Tab (Prednisone), 12.5 MG PO DAILY Quetiapine Fumarate (Seroquel), 100 MG PO HS Trimethoprim (Proloprim), 100 MG PO HS Scheduled PRN Bisacodyl (Dulcolax), 5 MG PO DAILY PRN for Constipation Docusate Sodium (Colace), 200 MG PO DAILY PRN for Constipation Ondansetron Odt (Zofran Odt), 8 MG SL Q6H PRN for Nausea Review of Systems A 10 point review of systems was negative unless stated above. Physical Exam Vital Signs Date Time Temp Pulse Resp B/P (MAP) Pulse Ox O2 Delivery O2 Flow Rate FiO2 09/07/17 23:33 36.4 94 16 101/55 94 Room Air 09/07/17 23:02 98 16 116/53 93 09/07/17 20:41 95 Room Air 09/07/17 20:40 95 18 112/79 95 09/07/17 18:07 36.8 109 18 116/70 94 Room Air General Appearance: WD/WN, no apparent distress Head: normocephalic, atraumatic Eyes: normal inspection, EOMI ENT: hearing grossly normal, pharynx normal, + pertinent finding (dry mucous membranes) Neck: supple, no adenopathy, no JVD Respiratory/Chest: lungs clear, no respiratory distress Cardiovascular: regular rate, rhythm, no gallop, no murmur Abdomen/GI: normal bowel sounds, non tender, no organomegaly Back: no CVA tenderness, no muscle spasm Extremities/Musculoskelatal: no calf tenderness, no pedal edema Neurologic/Psych: alert, normal mood/affect, oriented x 3 Skin: normal color, warm/dry, no rash Lymphatic: no adenopathy Diagnostics Laboratory Results Results Past 24 Hours Test 09/07/17 18:54 09/07/17 19:05 Range/Units White Blood Count 17.70 4.8-10.8 K/uL Red Blood Count 4.31 4.2-5.4 M/uL Hemoglobin 12.7 12.0-16.0 g/dL Hematocrit 40.7 37-47 % Mean Corpuscular Volume 94.4 80-100 fL Mean Corpuscular Hemoglobin 29.5 25-34 pg Mean Corpuscular Hemoglobin Concent 31.2 32-36 g/dl Platelet Count 265 130-400 K/uL Mean Platelet Volume 9.6 7.4-10.4 fL Neutrophils (%) (Auto) 86.1 % Lymphocytes (%) (Auto) 7.6 % Monocytes (%) (Auto) 4.8 % Eosinophils (%) (Auto) 0.4 % Basophils (%) (Auto) 0.2 % Neutrophils # (Auto) 15.24 1.4-6.5 K/uL Lymphocytes # (Auto) 1.34 1.2-3.4 K/uL Monocytes # (Auto) 0.85 0.11-0.59 K/uL Eosinophils # (Auto) 0.07 0-0.5 K/uL Basophils # (Auto) 0.04 0-0.2 K/uL RDW Standard Deviation 50.6 36.4-46.3 fL RDW Coefficient of Variation 14.7 11.5-14.5 % Immature Granulocyte % (Auto) 0.9 % Immature Granulocyte # (Auto) 0.16 0.00-0.02 K/uL Erythrocyte Sedimentation Rate 47 0-21 mm/hr Prothrombin Time 10.5 9.0-12.0 SECONDS Prothromb Time International Ratio 1.0 0.9-1.1 Activated Partial Thromboplast Time 29.2 21.0-31.0 SECONDS Partial Thromboplastin Ratio 1.1 Sodium Level 135 136-145 mmol/L Potassium Level 3.4 3.5-5.1 mmol/L Chloride Level 96 98-107 mmol/L Carbon Dioxide Level 32 21-32 mmol/L Anion Gap 7.0 3-11 mmol/L Blood Urea Nitrogen 15 7-18 mg/dl Creatinine 1.13 0.60-1.20 mg/dl Est Creatinine Clear Calc Drug Dose 35.4 ml/min Estimated GFR () 51.7 Estimated GFR (Non- 44.6 BUN/Creatinine Ratio 13.5 10-20 Random Glucose 192 70-99 mg/dl Calcium Level 9.1 8.5-10.1 mg/dl Magnesium Level 2.1 1.8-2.4 mg/dl Total Bilirubin 0.2 0.2-1 mg/dl Aspartate Amino Transf (AST/SGOT) 16 15-37 U/L Alanine Aminotransferase (ALT/SGPT) 25 12-78 U/L Alkaline Phosphatase 103 45-117 U/L Total Creatine Kinase 55 26-192 U/L Creatine Kinase MB 1.4 0.5-3.6 ng/ml Creatine Kinase MB Ratio 2.5 0-3.0 Troponin I < 0.015 0-0.045 ng/ml C-Reactive Protein 2.41 0-0.29 mg/dl Total Protein 7.3 6.4-8.2 gm/dl Albumin 3.6 3.4-5.0 gm/dl Globulin 3.7 2.5-4.0 gm/dl Albumin/Globulin Ratio 1.0 0.9-2 Lipase 75 73-393 U/L Urine Color YELLOW Urine Appearance CLEAR CLEAR Urine pH 5.0 4.5-7.5 Urine Specific [place] 1.016 1.000-1.030 Urine Protein NEG NEG Urine Glucose (UA) NEG NEG Urine Ketones NEG NEG Urine Occult Blood TRACE NEG Urine Nitrite NEG NEG Urine Bilirubin NEG NEG Urine Urobilinogen NEG NEG Urine Leukocyte Esterase SMALL NEG Urine WBC (Auto) 5-10 0-5 /hpf Urine RBC (Auto) 5-10 0-4 /hpf Urine Hyaline Casts (Auto) 1-5 0-5 /lpf Urine Epithelial Cells (Auto) 10-20 0-5 /lpf Urine Bacteria (Auto) NEG NEG Microbiology Results 09/07/17 Blood Culture, Received Pending 09/07/17 Blood Culture, Received Pending Diagnostic Radiology ABD/PELVIS IV AND ORAL CONT CT DOSE: 676.19 mGy.cm HISTORY: Flank pain RLQ pain TECHNIQUE: Multiaxial CT images of the abdomen and pelvis were performed following the use of intravenous and oral contrast. A dose lowering technique was utilized adhering to the principles of ALARA. COMPARISON STUDY: 05/14/2016 FINDINGS: Lung bases are clear. Evidence for prior cholecystectomy. Stable mild biliary ductal prominence. Spleen is uniform. Ureters demonstrates moderate atrophy and fatty replacement. This is unchanged. Several nonobstructing renal calcifications. Findings consistent with scattered colonic diverticulosis. Bowel pattern is nonobstructive. There is a left anterior ostomy. There are no obstructive characteristics at that site. The visualized components of the appendix are unremarkable. IMPRESSION: 1. Nonobstructive bowel pattern. 2. Several nonobstructing renal calcifications. 3. Left anterior ostomy considered patent and nonobstructive. 4. Scattered colonic diverticulosis with no evidence for acute diverticulitis. 5. Operative changes consistent with bilateral hip arthroplasties as well as prior cholecystectomy The above report was generated using voice recognition software. It may contain grammatical, syntax or spelling errors. Electronically signed by: Robinson Turner M.D. 09/07/2017 9:09 PM Dictated Date/Time: 09/07/2017 9:05 PM EKG Sinus tachycardia Otherwise normal ECG When compared with ECG of 16-MAY-2017 22:16, No significant change was found Impression Assessment and Plan This is an 86-year-old female with a urinary tract infection which has failed multiple courses of outpatient about therapy rate. Our plan for her is as follows: - Urinary Tract Infection with failed outpatient treatment: WBC 17 suggestive of possible infection though patient chronically on steroid which may predispose to exaggerated leukocytosis increase. May be confounded due to recent antibiotic courses. UA with leukocyte esterase without nitrites. Urine culture sent and pending. Previous culture data shows pansensitive Klebsiella. Start empiric Zosyn coverage and narrow coverage pending microbiological data. Patient will be rehydrated with IVF. - Hypokalemia and Hyponatremia: NSS + 20 mEq KCl at 100 ml/hr - Type 2 Diabetes Mellitus: Diet controlled at home. BSG 192 in the ED. Will add sliding scale coverage. - Rheumatoid Arthritis and Lupus: Continue Plaquenil and Prednisone. Continue Tylenol. Gabapentin, Oxycodone. - Osteoarthritis: Continue Tylenol. Gabapentin, Oxycodone. - Depression/Anxiety: Continue Duloxetine and Quetiapine - DVT Prophylaxis: SCDs, TEDs, Lovenox s.c daily - OT and PT evaluations ordered - Medical/Surgical Floor Attending Addendum: I have physically seen and examined this patient, have directed the resident's medical activities, and agree with the H&P as noted above with the following exceptions as noted. The patient is awake, alert and oriented 3, well-developed and well-nourished , normocephalic and atraumatic, lying in bed and in no acute distress. HEENT--PERRL, EOMI, mucous membranes and oropharynx dry. Neck--supple, no JVD or bruits, thyroid normal, trachea midline, no adenopathy. Heart--normal S1 and S2, no extra beats, no murmurs, rubs or gallops. Lungs--clear bilaterally with good air movement, no respiratory distress, no accessory muscle use. Abdomen--normal bowel sounds and soft, nontender and nondistended, ostomy functioning. Extremities--no cyanosis, clubbing or edema. There are good distal pulses b/l. Dermatologic--normal skin turgor, normal color, warm and dry, no abnormal lymph nodes, no rash. Neurologic--cranial nerves II through XII grossly intact. Rheumatologic--normal range of motion. Psychiatric--normal affect. Assessment and Plan: Urinary tract infection/failed outpatient treatment with Keflex-- Most recent culture shows pansensitive Klebsiella, however, oral antibiotic not likely getting to the site of infection Admit and place on Zosyn IV. Follow urine culture and sensitivity IV fluids via normal saline with 20 mEq potassium chloride at 100 mils per hour. Diabetes mellitus-- Place on Accu-Cheks before meals and at bedtime with NovoLog coverage per scale. RA/lupus-- Continue Plaquenil and prednisone Does not look to need stress dose steroids at this time. Anxiety with depression-- continue Cymbalta and Seroquel. Level of Care Med/Surg Advanced Directives Existing Living Will: No Existing Power of Telecommunications Equipment Installer: Yes Resuscitation Status FULL NO [facility] VENTILATION VTE Prophylaxis VTE Risk Assessment Done? Y/N: Yes Risk Level: Moderate Given or contraindicated: SCD's
[2017-09-08] MEDS ORDERED: PIPERACILL/TAZOBAC IV 3.375 GM in DEXTROSE 5% 100ML 100 ML IV SCH (06:00)
[2017-09-08] MEDS: PIPERACILL/TAZOBAC IV 3.375 GM in DEXTROSE 5% 100ML IV SCH ×3 (06:18→21:43)
[2017-09-08 06:51] LABS: HEMATOCRIT 35.3 % (37-47); MEAN CELL VOLUME 94.4 fL (80-100); MEAN CORPUSCULAR HEMOGLOBIN 28.9 pg (25-34); MEAN CORPUSCULAR HGB CONC 30.6 g/dl (32-36); MEAN PLATELET VOLUME 9.4 fL (7.4-10.4); PLATELET COUNT 234 K/uL (130-400); RED BLOOD COUNT 3.74 M/uL (4.2-5.4); WHITE BLOOD COUNT 12.81 K/uL (4.8-10.8)
[2017-09-08 07:06] VITALS: BP 93/54; PULSE 90; TEMP 36.4; O2SAT 89
[2017-09-08 07:28] LABS: BUN/CREATININE RATIO 13.5 (10-20); CALCIUM 7.9 mg/dl (8.5-10.1); CREATININE 0.95 mg/dl (0.60-1.20); POTASSIUM 3.4 mmol/L (3.5-5.1)
[2017-09-08] MEDS: ONDANSETRON INJ 2 MG/ML 2 ML VIAL IV PRN (08:37)
[2017-09-08] MEDS: OXYCODONE HCL 10 MG TABCR (OXYCONTIN) PO SCH ×2 (08:43→20:42)
[2017-09-08] MEDS: DULOXETINE HCL 60 MG CAP PO SCH (08:44)
[2017-09-08] MEDS: HYDROXYCHLOROQUINE SULFATE 200 MG TAB PO SCH ×2 (08:44→20:43)
[2017-09-08] MEDS: ASPIRIN 81 MG ECTAB PO SCH (08:45)
[2017-09-08] MEDS: FUROSEMIDE 20 MG TAB PO SCH (08:45)
[2017-09-08] MEDS: GABAPENTIN 300 MG CAP PO SCH ×3 (08:45→20:43)
[2017-09-08] MEDS: POLYETHYLENE (MIRALAX) 17 GM PACK PO SCH ×2 (08:46→20:00)
[2017-09-08] MEDS: DULOXETINE (CYMBALTA) 30 MG CAP PO SCH (08:46)
[2017-09-08] MEDS: CEROVITE ADV FORMULA TAB PO SCH (08:46)
[2017-09-08] MEDS: ENOXAPARIN 40 MG/0.4 ML SYR SQ SCH (08:52)
[2017-09-08 09:48] VITALS: BP 94/58
--- NOTE | 2017-09-08 10:45 | Hospitalist Progress Note ---
Hospitalist Progress Note Date of Service Sep 08, 2017. (Danielle Enciso ., AMBROCIO) Subjective Pt evaluation today including: conversation w/ patient, physical exam, lab review, review of studies, review of inpatient medication list Patient resting in bed. No significant improvement in symptoms since admission. Eating and drinking OK. +nausea this AM- IV Zofran given. +fever and chills. +dysuria. +RLQ pain. +loose stools. +generalized weakness. Patient denies any sweats, lightheadedness, dizziness, vision changes, CP, palpitations, edema, SOB, wheezing, cough, vomiting, melena, numbness/tingling, muscle/joint pain, anxiety/depression, active bleeding, or new skin discoloration/changes. (Danielle Enciso ., THANHC) Medications Current Inpatient Medications Medications (Trade) Dose Ordered Sig/Taye Route Start Time Stop Time Status Last Admin Dose Admin Ioversol (Optiray 320) 100 ml UD PRN IV 09/07/17 19:30 09/11/17 19:29 Acetaminophen (Tylenol Tab) 650 mg Q4H PRN PO 09/07/17 23:15 10/07/17 23:14 Al Hydrox/Mg Hydrox/Simethicone (Maalox Max Susp) 15 ml Q4H PRN PO 09/07/17 23:15 10/07/17 23:14 Magnesium Hydroxide (Milk Of Magnesia Susp) 30 ml Q6H PRN PO 09/07/17 23:15 10/07/17 23:14 Polyethylene (Miralax Powder Packet) 17 gm DAILY PRN PO 09/07/17 23:15 10/07/17 23:14 Ondansetron HCl (Zofran Inj) 4 mg Q6H PRN IV 09/07/17 23:15 10/07/17 23:14 09/08/17 08:37 4 MG Aspirin (Ecotrin Tab) 81 mg DAILY PO 09/08/17 08:00 10/08/17 08:59 09/08/17 08:45 81 MG Bisacodyl (Dulcolax Tab) 5 mg DAILY PRN PO 09/07/17 23:15 10/07/17 23:14 Docusate Sodium (coLACE CAP) 200 mg DAILY PRN PO 09/07/17 23:15 10/07/17 23:14 Duloxetine HCl (Cymbalta Cap) 30 mg DAILY PO 09/08/17 08:00 10/08/17 08:59 09/08/17 08:46 30 MG Duloxetine HCl (Cymbalta Cap) 60 mg DAILY PO 09/08/17 08:00 10/08/17 08:59 09/08/17 08:44 60 MG Furosemide (Lasix Tab) 40 mg QAM PO 09/08/17 08:00 10/08/17 08:59 09/08/17 08:45 40 MG Gabapentin (Neurontin Cap) 300 mg TID PO 09/08/17 08:00 10/08/17 08:59 09/08/17 08:45 300 MG Hydroxychloroquine Sulfate (Plaquenil Tab) 200 mg BID PO 09/08/17 08:00 10/08/17 08:59 09/08/17 08:44 200 MG Multivitamins/ Minerals (Multivitamin W/ Minerals Tab) 1 tab DAILY PO 09/08/17 08:00 10/08/17 08:59 09/08/17 08:46 1 TAB Ondansetron HCl (Zofran Odt) 8 mg Q6H PRN SL 09/07/17 23:15 10/07/17 23:14 Oxycodone HCl (Oxycontin Tab) 10 mg BID PO 09/08/17 08:00 09/22/17 08:59 09/08/17 08:43 10 MG Prednisone (PredniSONE TAB) 12.5 mg DAILY PO 09/08/17 08:00 10/08/17 08:59 09/08/17 08:44 12.5 MG Quetiapine Fumarate (seroQUEL TAB) 100 mg HS PO 09/08/17 21:00 10/08/17 20:59 Polyethylene (Miralax Powder Packet) 17 gm BID PO 09/08/17 08:00 10/08/17 08:59 Piperacillin Sod/ Tazobactam Sod (Consult) 1 ea UD PRN N/A 09/07/17 23:30 10/07/17 23:29 Potassium Chloride/Sodium Chloride 1,000 ml @ 100 mls/hr Q10H IV 09/08/17 01:00 10/08/17 00:59 09/08/17 01:05 100 MLS/HR Piperacillin Sod/ Tazobactam Sod 3.375 gm/Dextrose 115 ml @ 28.75 mls/ hr Q8H IV 09/08/17 06:00 09/18/17 05:59 09/08/17 06:18 28.75 MLS/HR Enoxaparin Sodium (Lovenox Inj) 40 mg QAM SQ 09/08/17 08:00 10/08/17 07:59 09/08/17 08:52 40 MG (Danielle Enciso PA-C) Objective Vital Signs Date Time Temp Pulse Resp B/P (MAP) Pulse Ox O2 Delivery O2 Flow Rate FiO2 09/08/17 07:06 36.4 90 12 93/54 (67) 89 Room Air 09/07/17 23:33 36.4 94 16 101/55 94 Room Air 09/07/17 23:02 98 16 116/53 93 09/07/17 20:41 95 Room Air 09/07/17 20:40 95 18 112/79 95 09/07/17 18:07 36.8 109 18 116/70 94 Room Air (Danielle Enciso PA-C) Physical Exam General Appearance: no apparent distress Eyes: normal inspection, PERRL ENT: hearing grossly normal Neck: supple Respiratory/Chest: lungs clear, no respiratory distress, no accessory muscle use Cardiovascular: regular rate, rhythm Abdomen: normal bowel sounds, soft, + tenderness (mild ttp of RLQ) Extremities: no pedal edema, no calf tenderness Neurologic/Psychiatric: alert, normal mood/affect, oriented x 3 Skin: normal color, warm/dry, no rash (Danielle Enciso PA-C) Laboratory Results Last 24 Hours Test 09/07/17 18:54 09/07/17 19:05 09/08/17 06:14 09/08/17 07:48 White Blood Count 17.70 K/uL 12.81 K/uL Red Blood Count 4.31 M/uL 3.74 M/uL Hemoglobin 12.7 g/dL 10.8 g/dL Hematocrit 40.7 % 35.3 % Mean Corpuscular Volume 94.4 fL 94.4 fL Mean Corpuscular Hemoglobin 29.5 pg 28.9 pg Mean Corpuscular Hemoglobin Concent 31.2 g/dl 30.6 g/dl Platelet Count 265 K/uL 234 K/uL Mean Platelet Volume 9.6 fL 9.4 fL Neutrophils (%) (Auto) 86.1 % Lymphocytes (%) (Auto) 7.6 % Monocytes (%) (Auto) 4.8 % Eosinophils (%) (Auto) 0.4 % Basophils (%) (Auto) 0.2 % Neutrophils # (Auto) 15.24 K/uL Lymphocytes # (Auto) 1.34 K/uL Monocytes # (Auto) 0.85 K/uL Eosinophils # (Auto) 0.07 K/uL Basophils # (Auto) 0.04 K/uL RDW Standard Deviation 50.6 fL 50.6 fL RDW Coefficient of Variation 14.7 % 14.8 % Immature Granulocyte % (Auto) 0.9 % Immature Granulocyte # (Auto) 0.16 K/uL Erythrocyte Sedimentation Rate 47 mm/hr Prothrombin Time 10.5 SECONDS Prothromb Time International Ratio 1.0 Activated Partial Thromboplast Time 29.2 SECONDS Partial Thromboplastin Ratio 1.1 Sodium Level 135 mmol/L 138 mmol/L Potassium Level 3.4 mmol/L 3.4 mmol/L Chloride Level 96 mmol/L 101 mmol/L Carbon Dioxide Level 32 mmol/L 32 mmol/L Anion Gap 7.0 mmol/L 5.0 mmol/L Blood Urea Nitrogen 15 mg/dl 13 mg/dl Creatinine 1.13 mg/dl 0.95 mg/dl Est Creatinine Clear Calc Drug Dose 35.4 ml/min 42.2 ml/min Estimated GFR () 51.7 63.7 Estimated GFR (Non- 44.6 55.0 BUN/Creatinine Ratio 13.5 13.5 Random Glucose 192 mg/dl 98 mg/dl Calcium Level 9.1 mg/dl 7.9 mg/dl Magnesium Level 2.1 mg/dl Total Bilirubin 0.2 mg/dl Aspartate Amino Transf (AST/SGOT) 16 U/L Alanine Aminotransferase (ALT/SGPT) 25 U/L Alkaline Phosphatase 103 U/L Total Creatine Kinase 55 U/L Creatine Kinase MB 1.4 ng/ml Creatine Kinase MB Ratio 2.5 Troponin I < 0.015 ng/ml C-Reactive Protein 2.41 mg/dl Total Protein 7.3 gm/dl Albumin 3.6 gm/dl Globulin 3.7 gm/dl Albumin/Globulin Ratio 1.0 Lipase 75 U/L Urine Color YELLOW Urine Appearance CLEAR Urine pH 5.0 Urine Specific [place] 1.016 Urine Protein NEG Urine Glucose (UA) NEG Urine Ketones NEG Urine Occult Blood TRACE Urine Nitrite NEG Urine Bilirubin NEG Urine Urobilinogen NEG Urine Leukocyte Esterase SMALL Urine WBC (Auto) 5-10 /hpf Urine RBC (Auto) 5-10 /hpf Urine Hyaline Casts (Auto) 1-5 /lpf Urine Epithelial Cells (Auto) 10-20 /lpf Urine Bacteria (Auto) NEG Bedside Glucose 107 mg/dl (Danielle Enciso, GREGORY-C) Assessment and Plan This is an 86-year-old female with a urinary tract infection which has failed multiple courses of outpatient about therapy rate. UTI w/ failed outpatient treatment (Keflex x2 rounds, Bactrim x1, Cefuroxime x1) : - Admitted to med/surg - IV Rocephin x1 in ED on 09/07; IV Zosyn- started on 09/08 - UCx and BCx pending - Leukocytosis- IMPROVING Hyponatremia- RESOLVED: NSS + 20 mEq KCl at 100 ml/hr x1 bag Hypokalemia: IVF + 20 mEq KCL, follow PRP and replace PRN RLQ pain, loose stools: - Check c.diff given multiple antibiotic treatments recently - CT of abdomen- w/out acute findings, nonobstructing renal stones noted - Oxycodone as scheduled for pain control T2DM- diet controlled: BSG ACHS and ISS Rheumatoid arthritis, Lupus, OA: Continue Plaquenil, Prednisone, Tylenol, Gabapentin, Oxycodone Depression, anxiety: Continue Duloxetine and Quetiapine DVT prophylaxis: Lovenox SQ daily Code Status: FULL, NO MECH VENTILATION Dispo: From home, lives alone- PT/OT and CM consulted (Danielle Enciso, PA-C) I agree with PA assessment and plan and have seen and examined pt myself Resting comfortably in bed VSS Labs reviewed Presenting with likely UTI Dysuria and frequency noted this AM Cont rocepvalentino, pt has mult allergies Obtain Cdiff at this time (Stan Gutierrez D.O.)
[2017-09-08 11:08] VITALS: BP 109/63; PULSE 98; TEMP 36.5; O2SAT 91
[2017-09-08 14:58] VITALS: BP 111/65; PULSE 95; TEMP 36.7; O2SAT 91
[2017-09-08 16:00] VITALS: O2SAT 91
[2017-09-08] MEDS: QUETIAPINE FUMARATE 100 MG TAB PO SCH (20:42)
[2017-09-08 23:15] VITALS: BP 135/72; PULSE 103; TEMP 36.7; O2SAT 93
[2017-09-09] MEDS: PIPERACILL/TAZOBAC IV 3.375 GM in DEXTROSE 5% 100ML IV SCH ×3 (05:28→21:39)
[2017-09-09 07:27] VITALS: BP 121/71; PULSE 93; TEMP 36.4; O2SAT 91
[2017-09-09 07:41] LABS: HEMATOCRIT 35.1 % (37-47); MEAN CELL VOLUME 95.9 fL (80-100); MEAN CORPUSCULAR HEMOGLOBIN 28.7 pg (25-34); MEAN CORPUSCULAR HGB CONC 29.9 g/dl (32-36); MEAN PLATELET VOLUME 9.7 fL (7.4-10.4); PLATELET COUNT 221 K/uL (130-400); RED BLOOD COUNT 3.66 M/uL (4.2-5.4); WHITE BLOOD COUNT 10.61 K/uL (4.8-10.8)
[2017-09-09] MEDS: NSS + 20MEQ KCL 1000ML 1,000 ML IV SCH (07:52)
[2017-09-09 08:03] LABS: BUN/CREATININE RATIO 12.3 (10-20); CREATININE 0.95 mg/dl (0.60-1.20); POTASSIUM 3.7 mmol/L (3.5-5.1)
[2017-09-09 08:04] LABS: CALCIUM 8.3 mg/dl (8.5-10.1)
[2017-09-09] MEDS: ASPIRIN 81 MG ECTAB PO SCH (08:31)
[2017-09-09] MEDS: FUROSEMIDE 20 MG TAB PO SCH (08:31)
[2017-09-09] MEDS: DULOXETINE (CYMBALTA) 30 MG CAP PO SCH (08:31)
[2017-09-09] MEDS: DULOXETINE HCL 60 MG CAP PO SCH (08:31)
[2017-09-09] MEDS: CEROVITE ADV FORMULA TAB PO SCH (08:32)
[2017-09-09] MEDS: GABAPENTIN 300 MG CAP PO SCH ×3 (08:32→20:45)
[2017-09-09] MEDS: HYDROXYCHLOROQUINE SULFATE 200 MG TAB PO SCH ×2 (08:32→20:45)
[2017-09-09] MEDS: OXYCODONE HCL 10 MG TABCR (OXYCONTIN) PO SCH ×2 (08:32→20:48)
[2017-09-09] MEDS: POLYETHYLENE (MIRALAX) 17 GM PACK PO SCH ×2 (08:32→20:00)
[2017-09-09] MEDS: ENOXAPARIN 40 MG/0.4 ML SYR SQ SCH (08:33)
[2017-09-09] MEDS ORDERED: OMEP20CA59 PO (09:31)
--- NOTE | 2017-09-09 11:00 | Hospitalist Progress Note ---
Hospitalist Progress Note Date of Service Sep 09, 2017. (Danielle Enciso ., AMBROCIO) Subjective Pt evaluation today including: conversation w/ patient, physical exam, lab review, review of inpatient medication list Patient states she is feeling well this AM. Watched ambulate from bathroom to bed w/out difficulty. Weakness is improving. Dysuria and frequency are improving. Eating and drinking OK. Patient denies any fever, chills, sweats, lightheadedness, dizziness, vision changes, CP, palpitations, edema, SOB, wheezing, cough, abdominal pain, nausea, vomiting, diarrhea, melena, numbness/tingling, muscle/joint pain, anxiety/ depression, active bleeding, or new skin discoloration/changes. (Danielle Enciso ., THANHC) Medications Current Inpatient Medications Medications (Trade) Dose Ordered Sig/Taye Route Start Time Stop Time Status Last Admin Dose Admin Ioversol (Optiray 320) 100 ml UD PRN IV 09/07/17 19:30 09/11/17 19:29 Acetaminophen (Tylenol Tab) 650 mg Q4H PRN PO 09/07/17 23:15 10/07/17 23:14 Al Hydrox/Mg Hydrox/Simethicone (Maalox Max Susp) 15 ml Q4H PRN PO 09/07/17 23:15 10/07/17 23:14 Magnesium Hydroxide (Milk Of Magnesia Susp) 30 ml Q6H PRN PO 09/07/17 23:15 10/07/17 23:14 Polyethylene (Miralax Powder Packet) 17 gm DAILY PRN PO 09/07/17 23:15 10/07/17 23:14 Ondansetron HCl (Zofran Inj) 4 mg Q6H PRN IV 09/07/17 23:15 10/07/17 23:14 09/08/17 08:37 4 MG Aspirin (Ecotrin Tab) 81 mg DAILY PO 09/08/17 08:00 10/08/17 08:59 09/09/17 08:31 81 MG Bisacodyl (Dulcolax Tab) 5 mg DAILY PRN PO 09/07/17 23:15 10/07/17 23:14 Docusate Sodium (coLACE CAP) 200 mg DAILY PRN PO 09/07/17 23:15 10/07/17 23:14 Duloxetine HCl (Cymbalta Cap) 30 mg DAILY PO 09/08/17 08:00 10/08/17 08:59 09/09/17 08:31 30 MG Duloxetine HCl (Cymbalta Cap) 60 mg DAILY PO 09/08/17 08:00 10/08/17 08:59 09/09/17 08:31 60 MG Furosemide (Lasix Tab) 40 mg QAM PO 09/08/17 08:00 10/08/17 08:59 09/09/17 08:31 40 MG Gabapentin (Neurontin Cap) 300 mg TID PO 09/08/17 08:00 10/08/17 08:59 09/09/17 08:32 300 MG Hydroxychloroquine Sulfate (Plaquenil Tab) 200 mg BID PO 09/08/17 08:00 10/08/17 08:59 09/09/17 08:32 200 MG Multivitamins/ Minerals (Multivitamin W/ Minerals Tab) 1 tab DAILY PO 09/08/17 08:00 10/08/17 08:59 09/09/17 08:32 1 TAB Ondansetron HCl (Zofran Odt) 8 mg Q6H PRN SL 09/07/17 23:15 10/07/17 23:14 Oxycodone HCl (Oxycontin Tab) 10 mg BID PO 09/08/17 08:00 09/22/17 08:59 09/09/17 08:32 10 MG Prednisone (PredniSONE TAB) 12.5 mg DAILY PO 09/08/17 08:00 10/08/17 08:59 09/09/17 08:32 12.5 MG Quetiapine Fumarate (seroQUEL TAB) 100 mg HS PO 09/08/17 21:00 10/08/17 20:59 09/08/17 20:42 100 MG Polyethylene (Miralax Powder Packet) 17 gm BID PO 09/08/17 08:00 10/08/17 08:59 Piperacillin Sod/ Tazobactam Sod (Consult) 1 ea UD PRN N/A 09/07/17 23:30 10/07/17 23:29 Potassium Chloride/Sodium Chloride 1,000 ml @ 100 mls/hr Q10H IV 09/08/17 01:00 10/08/17 00:59 09/09/17 07:52 100 MLS/HR Piperacillin Sod/ Tazobactam Sod 3.375 gm/Dextrose 115 ml @ 28.75 mls/ hr Q8H IV 09/08/17 06:00 09/18/17 05:59 09/09/17 05:28 28.75 MLS/HR Enoxaparin Sodium (Lovenox Inj) 40 mg QAM SQ 09/08/17 08:00 10/08/17 07:59 09/09/17 08:33 40 MG Pantoprazole Sodium (Protonix Tab) 40 mg QAM PO 09/09/17 09:45 10/09/17 09:44 (Danielle Enciso PA-C) Objective Vital Signs Date Time Temp Pulse Resp B/P (MAP) Pulse Ox O2 Delivery O2 Flow Rate FiO2 09/09/17 07:27 36.4 93 16 121/71 (88) 91 Room Air 09/09/17 01:30 Room Air 09/08/17 23:15 36.7 103 16 135/72 (93) 93 Room Air 09/08/17 16:00 91 Room Air 09/08/17 14:58 36.7 95 18 111/65 (80) 91 Room Air 09/08/17 11:08 36.5 98 12 109/63 (78) 91 Room Air (Danielle Enciso PA-C) Physical Exam General Appearance: no apparent distress Eyes: normal inspection, PERRL ENT: hearing grossly normal Neck: supple Respiratory/Chest: lungs clear, no respiratory distress, no accessory muscle use Cardiovascular: regular rate, rhythm Abdomen: normal bowel sounds, non tender, soft Extremities: no pedal edema, no calf tenderness Neurologic/Psychiatric: alert, normal mood/affect, oriented x 3 Skin: normal color, warm/dry, no rash (Danielle Enciso PA-C) Laboratory Results Last 24 Hours Test 09/08/17 11:29 09/08/17 16:50 09/09/17 07:01 09/09/17 07:32 Bedside Glucose 128 mg/dl 149 mg/dl 95 mg/dl White Blood Count 10.61 K/uL Red Blood Count 3.66 M/uL Hemoglobin 10.5 g/dL Hematocrit 35.1 % Mean Corpuscular Volume 95.9 fL Mean Corpuscular Hemoglobin 28.7 pg Mean Corpuscular Hemoglobin Concent 29.9 g/dl RDW Standard Deviation 53.5 fL RDW Coefficient of Variation 15.3 % Platelet Count 221 K/uL Mean Platelet Volume 9.7 fL Sodium Level 145 mmol/L Potassium Level 3.7 mmol/L Chloride Level 107 mmol/L Carbon Dioxide Level 30 mmol/L Anion Gap 8.0 mmol/L Blood Urea Nitrogen 12 mg/dl Creatinine 0.95 mg/dl Est Creatinine Clear Calc Drug Dose 43.5 ml/min Estimated GFR () 63.7 Estimated GFR (Non- 55.0 BUN/Creatinine Ratio 12.3 Random Glucose 93 mg/dl Calcium Level 8.3 mg/dl (Danielle Enciso ., GREGORY-C) Assessment and Plan This is an 86-year-old female with a urinary tract infection which has failed multiple courses of outpatient about therapy rate. UTI w/ failed outpatient treatment (Keflex x2 rounds, Bactrim x1, Cefuroxime x1) : - Admitted to med/surg - IV Rocephin x1 in ED on 09/07; IV Zosyn- started on 09/08 - UCx pending - BCx- NGTD - Leukocytosis- RESOLVED Hyponatremia- RESOLVED: NSS + 20 mEq KCl at 100 ml/hr x4 bag- will d/c IVF today Hypokalemia- RESOLVED: Treated w/ IVF + 20 mEq KCL, follow PRP and replace PRN RLQ pain, loose stools- IMPROVING: - C. diff- negative - CT of abdomen- w/out acute findings, nonobstructing renal stones noted - Oxycodone as scheduled for pain control T2DM- diet controlled: BSG ACHS and ISS Rheumatoid arthritis, Lupus, OA: Continue Plaquenil, Prednisone, Tylenol, Gabapentin, Oxycodone Depression, anxiety: Continue Duloxetine and Quetiapine GERD: Protonix 40 mg daily- resume Prilosec 40 mg daily at discharge DVT prophylaxis: Lovenox SQ daily Code Status: FULL, NO MECH VENTILATION Dispo: From home, lives alone- PT/OT and CM consulted- likely discharge to home tomorrow (Danielle Enciso ., PA-C) I agree with PA assessment and plan and have seen and examined pt myself Resting comfortably in bed VSS Labs reviewed Leukocytosis resolved Presenting with likely UTI Dysuria and frequency noted this AM but improved Cont rocephin, pt has mult allergies Cdiff neg (Stan Gutierrez D.O.)
[2017-09-09] MEDS: PANTOprazole SOD 40 MG TAB PO SCH (11:13)
[2017-09-09 11:16] VITALS: BP 116/70; PULSE 94; TEMP 36.9; O2SAT 91
[2017-09-09 15:09] VITALS: BP 135/74; PULSE 97; TEMP 36.6; O2SAT 92
[2017-09-09 16:00] VITALS: O2SAT 92
[2017-09-09] MEDS: ACETAMINOPHEN 325 MG TAB PO PRN (19:11)
[2017-09-09] MEDS: QUETIAPINE FUMARATE 100 MG TAB PO SCH (20:46)
[2017-09-09 23:36] VITALS: BP 152/74; PULSE 88; TEMP 36.6; O2SAT 95
[2017-09-10] MEDS: PIPERACILL/TAZOBAC IV 3.375 GM in DEXTROSE 5% 100ML IV SCH ×3 (05:37→21:48)
[2017-09-10 06:00] VITALS: BP 138/78; PULSE 84; TEMP 36.6; O2SAT 95
[2017-09-10] MEDS: ONDANSETRON INJ 2 MG/ML 2 ML VIAL IV PRN (06:05)
[2017-09-10 06:49] LABS: HEMATOCRIT 34.4 % (37-47); MEAN CELL VOLUME 94.5 fL (80-100); MEAN CORPUSCULAR HEMOGLOBIN 28.8 pg (25-34); MEAN CORPUSCULAR HGB CONC 30.5 g/dl (32-36); MEAN PLATELET VOLUME 9.6 fL (7.4-10.4); PLATELET COUNT 233 K/uL (130-400); RED BLOOD COUNT 3.64 M/uL (4.2-5.4)
[2017-09-10 07:14] LABS: BUN/CREATININE RATIO 12.4 (10-20); CALCIUM 8.6 mg/dl (8.5-10.1); CREATININE 1.08 mg/dl (0.60-1.20); POTASSIUM 3.4 mmol/L (3.5-5.1)
[2017-09-10 07:32] VITALS: BP 134/73; PULSE 88; TEMP 36.3; O2SAT 94
[2017-09-10] MEDS: DULOXETINE HCL 60 MG CAP PO SCH (08:44)
[2017-09-10] MEDS: ASPIRIN 81 MG ECTAB PO SCH (08:44)
[2017-09-10] MEDS: DULOXETINE (CYMBALTA) 30 MG CAP PO SCH (08:44)
[2017-09-10] MEDS: GABAPENTIN 300 MG CAP PO SCH ×3 (08:45→20:44)
[2017-09-10] MEDS: HYDROXYCHLOROQUINE SULFATE 200 MG TAB PO SCH ×2 (08:45→20:45)
[2017-09-10] MEDS: CEROVITE ADV FORMULA TAB PO SCH (08:45)
[2017-09-10] MEDS: FUROSEMIDE 20 MG TAB PO SCH (08:45)
[2017-09-10] MEDS: OXYCODONE HCL 10 MG TABCR (OXYCONTIN) PO SCH ×2 (08:45→20:44)
[2017-09-10] MEDS: PANTOprazole SOD 40 MG TAB PO SCH (08:46)
[2017-09-10] MEDS: ENOXAPARIN 40 MG/0.4 ML SYR SQ SCH (08:46)
[2017-09-10] MEDS: POLYETHYLENE (MIRALAX) 17 GM PACK PO SCH ×2 (08:52→20:00)
--- NOTE | 2017-09-10 13:24 | Progress Note ---
Subjective Date of Service: Sep 10, 2017. Subjective Pt evaluation today including: conversation w/ patient, physical exam, chart review, lab review, review of studies, review of inpatient medication list Pt reports on/off urinary symptoms Still having burning on urination and frequency No fevers or chills Improvement in weakness Problem List Medical Problems: (1) Abdominal pain Status: Acute (2) Altered mental status Status: Acute (3) Anxiety Status: Acute (4) Chronic low back pain Status: Acute (5) COPD (chronic obstructive pulmonary disease) Status: Acute (6) Dehydration Status: Acute (7) Drowsiness Status: Acute (8) Failure of outpatient treatment Status: Acute (9) Fever Status: Acute (10) Inability to bear weight Status: Acute (11) Inferior pubic ramus fracture Status: Acute (12) Insomnia Status: Acute (13) Leukocytosis Status: Acute (14) Leukocytosis Status: Acute (15) Leukocytosis Status: Acute (16) Leukocytosis Status: Acute (17) Peripheral edema Status: Acute (18) Pyelonephritis Status: Acute (19) Sepsis Status: Acute (20) Stroke-like symptoms Status: Acute (21) Suicidal ideation Status: Acute (22) Urinary frequency Status: Acute (23) UTI (urinary tract infection) Status: Acute (24) Weakness Status: Acute (25) Weakness Status: Acute (26) Weakness Status: Acute (27) Weakness Status: Acute Review of Systems Constitutional: No fever, No chills, No sweats, No weight loss ENT: No hearing loss, No unusual epistaxis, No nasal symptoms, No sore throat Respiratory: No cough, No sputum, No wheezing, No shortness of breath, No dyspnea on exertion Cardiac: No chest pain, No orthopnea, No PND, No edema, No claudication Abdomen: No pain, No nausea, No vomiting, No diarrhea, No constipation Musculoskeletal: No joint pain, No muscle pain, No swelling, No calf pain Female : + dysuria, + urinary frequency, No hematuria, No incontinence Neurologic: No memory loss, No paralysis, No weakness, No numbness/tingling Psychiatric: No depression symptoms, No anhedonism, No anxiety, No insomnia Endo: No fatigue, No excessive thirst, No excessive urination Skin: No rash, No itch Objective Vital Signs Date Time Temp Pulse Resp B/P (MAP) Pulse Ox O2 Delivery O2 Flow Rate FiO2 12/1/17 10:23 Room Air 09/10/17 07:32 36.3 88 18 134/73 (93) 94 09/10/17 06:00 36.6 84 18 138/78 (98) 95 Room Air 09/10/17 00:00 Room Air 09/09/17 23:36 36.6 88 20 152/74 (100) 95 Room Air 09/09/17 16:00 92 Room Air 09/09/17 15:09 36.6 97 16 135/74 (94) 92 Room Air Physical Exam General Appearance: WD/WN, no apparent distress Eyes: normal inspection, PERRL, EOMI, sclerae normal Neck: supple, no adenopathy, thyroid normal, no JVD Respiratory/Chest: chest non-tender, lungs clear, normal breath sounds, no respiratory distress Cardiovascular: no edema, no gallop, no JVD, no murmur Abdomen: normal bowel sounds, non tender, soft, no organomegaly Neurologic/Psychiatric: no motor/sensory deficits, alert, normal mood/affect, oriented x 3 Laboratory Results Last 24 Hours Test 09/09/17 15:59 09/09/17 20:18 09/10/17 06:23 09/10/17 07:39 Bedside Glucose 147 mg/dl 130 mg/dl 88 mg/dl White Blood Count 10.20 K/uL Red Blood Count 3.64 M/uL Hemoglobin 10.5 g/dL Hematocrit 34.4 % Mean Corpuscular Volume 94.5 fL Mean Corpuscular Hemoglobin 28.8 pg Mean Corpuscular Hemoglobin Concent 30.5 g/dl RDW Standard Deviation 50.4 fL RDW Coefficient of Variation 14.8 % Platelet Count 233 K/uL Mean Platelet Volume 9.6 fL Sodium Level 143 mmol/L Potassium Level 3.4 mmol/L Chloride Level 104 mmol/L Carbon Dioxide Level 33 mmol/L Anion Gap 6.0 mmol/L Blood Urea Nitrogen 13 mg/dl Creatinine 1.08 mg/dl Est Creatinine Clear Calc Drug Dose 38.3 ml/min Estimated GFR () 54.6 Estimated GFR (Non- 47.1 BUN/Creatinine Ratio 12.4 Random Glucose 90 mg/dl Calcium Level 8.6 mg/dl Test 09/10/17 11:40 Bedside Glucose 127 mg/dl Assessment and Plan This is an 86-year-old female with a urinary tract infection which has failed multiple courses of outpatient about therapy rate. UTI w/ failed outpatient treatment (Keflex x2 rounds, Bactrim x1, Cefuroxime x1) : - Admitted to med/surg - IV Rocephin x1 in ED on 09/07; IV Zosyn- started on 09/08, start on pyridium for dysuria - UCx NGTD - BCx- NGTD - Leukocytosis- RESOLVED Hyponatremia- RESOLVED: NSS + 20 mEq KCl at 100 ml/hr x4 bag- will d/c IVF today Hypokalemia- Replace PRN RLQ pain, loose stools- IMPROVING: - C. diff- negative - CT of abdomen- w/out acute findings, nonobstructing renal stones noted - Oxycodone as scheduled for pain control T2DM- diet controlled: BSG ACHS and ISS Rheumatoid arthritis, Lupus, OA: Continue Plaquenil, Prednisone, Tylenol, Gabapentin, Oxycodone Depression, anxiety: Continue Duloxetine and Quetiapine GERD: Protonix 40 mg daily- resume Prilosec 40 mg daily at discharge DVT prophylaxis: Lovenox SQ daily Code Status: FULL, NO MECH VENTILATION Dispo: From home, lives alone- PT/OT and CM consulted- likely discharge to home tomorrow
[2017-09-10] MEDS: PHENAZOPYRIDINE HCL 200 MG TAB PO SCH ×2 (14:05→20:46)
[2017-09-10 15:30] VITALS: O2SAT 91
[2017-09-10 15:48] VITALS: BP 146/78; PULSE 96; TEMP 36.6; O2SAT 91
[2017-09-10] MEDS: QUETIAPINE FUMARATE 100 MG TAB PO SCH (20:46)
[2017-09-10 23:38] VITALS: BP 150/75; PULSE 97; TEMP 36.7; O2SAT 92
[2017-09-11] MEDS: PIPERACILL/TAZOBAC IV 3.375 GM in DEXTROSE 5% 100ML IV SCH ×3 (05:49→21:31)
[2017-09-11 06:52] LABS: HEMATOCRIT 36.1 % (37-47); MEAN CELL VOLUME 93.8 fL (80-100); MEAN CORPUSCULAR HEMOGLOBIN 28.8 pg (25-34); MEAN CORPUSCULAR HGB CONC 30.7 g/dl (32-36); MEAN PLATELET VOLUME 9.7 fL (7.4-10.4); PLATELET COUNT 253 K/uL (130-400); RED BLOOD COUNT 3.85 M/uL (4.2-5.4); WHITE BLOOD COUNT 12.17 K/uL (4.8-10.8)
[2017-09-11 07:20] VITALS: BP 126/73; PULSE 85; TEMP 36.4; O2SAT 92
[2017-09-11 07:24] LABS: BUN/CREATININE RATIO 12.9 (10-20); CALCIUM 8.4 mg/dl (8.5-10.1); CREATININE 1.13 mg/dl (0.60-1.20); POTASSIUM 3.1 mmol/L (3.5-5.1)
[2017-09-11] MEDS: POLYETHYLENE (MIRALAX) 17 GM PACK PO SCH ×3 (08:00→18:06)
[2017-09-11] MEDS: PHENAZOPYRIDINE HCL 200 MG TAB PO SCH ×3 (08:07→19:47)
[2017-09-11] MEDS: CEROVITE ADV FORMULA TAB PO SCH (08:08)
[2017-09-11] MEDS: FUROSEMIDE 20 MG TAB PO SCH (08:08)
[2017-09-11] MEDS: DULOXETINE HCL 60 MG CAP PO SCH (08:08)
[2017-09-11] MEDS: GABAPENTIN 300 MG CAP PO SCH ×3 (08:08→19:48)
[2017-09-11] MEDS: PANTOprazole SOD 40 MG TAB PO SCH (08:08)
[2017-09-11] MEDS: HYDROXYCHLOROQUINE SULFATE 200 MG TAB PO SCH ×2 (08:09→19:47)
[2017-09-11] MEDS: DULOXETINE (CYMBALTA) 30 MG CAP PO SCH (08:09)
[2017-09-11] MEDS: ASPIRIN 81 MG ECTAB PO SCH (08:09)
[2017-09-11] MEDS: ENOXAPARIN 40 MG/0.4 ML SYR SQ SCH (08:10)
[2017-09-11] MEDS: OXYCODONE HCL 10 MG TABCR (OXYCONTIN) PO SCH ×2 (08:13→19:46)
[2017-09-11] MEDS ORDERED: POTASSIUM CHLORIDE 20 MEQ TABCR PO ONE (09:30)
--- NOTE | 2017-09-11 12:56 | Hospitalist Progress Note ---
Hospitalist Progress Note Date of Service Sep 11, 2017. (Danielle Enciso ., AMBROCIO) I personally interviewed and examined the patient. I agree with history of present illness and physical exam mentioned above, I also performed my own history taking and examination. Past medical history and review of system has been obtained by myself I reviewed all pertinent labs and studies Reviewed current medications I discussed and formulated of the assessment and plan mentioned above. Please refer to the Summary mentioned by Miss Enciso. General Appearance: not in acute distress Eyes: normal Sclerae, extraocular muscle intact ENT: hearing grossly normal Neck: supple Respiratory/Chest: normal air entry especially bilateral ,no respiratory distress, no accessory muscle use Cardiovascular: regular rate, rhythm, no murmur Abdomen: non tender, soft, no masses Extremities: no edema Neurologic/Psychiatric: Awake alert oriented times place and person moves all extremities sensation intact cranial nerves II-12 appear to be intact Skin: normal color, warm/dry, no rash 86 years old female presented to the hospital with recurrent urinary tract infection, failed outpatient antibiotics treatment. Improved on Zosyn IV as an inpatient, urine cultures are negative obtain status post antibiotics exposure. 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 will consult urologist to R/O fistula recurrence or partial obstruction. CT scan abdomen showed non obstructing renal calcifications Kenya Arrington MD, [facility] hospitalist group (Kenya Cullen MD) Subjective Pt evaluation today including: conversation w/ patient, physical exam, lab review, review of inpatient medication list Voiding: no voiding problems Patient states she is feeling well. Weakness seems to be improving. Dysuria and frequency have resolved. Eating and drinking OK. Patient denies any fever, chills, sweats, lightheadedness, dizziness, vision changes, CP, palpitations, edema, SOB, wheezing, cough, abdominal pain, nausea, vomiting, diarrhea, urinary symptoms, melena, numbness/tingling, weakness, muscle/joint pain, anxiety/depression, active bleeding, or new skin discoloration/changes. (Danielle Enciso ., THANHC) Medications Current Inpatient Medications Medications (Trade) Dose Ordered Sig/Taye Route Start Time Stop Time Status Last Admin Dose Admin Ioversol (Optiray 320) 100 ml UD PRN IV 09/07/17 19:30 09/11/17 19:29 Acetaminophen (Tylenol Tab) 650 mg Q4H PRN PO 09/07/17 23:15 10/07/17 23:14 09/09/17 19:11 650 MG Al Hydrox/Mg Hydrox/Simethicone (Maalox Max Susp) 15 ml Q4H PRN PO 09/07/17 23:15 10/07/17 23:14 Magnesium Hydroxide (Milk Of Magnesia Susp) 30 ml Q6H PRN PO 09/07/17 23:15 10/07/17 23:14 Polyethylene (Miralax Powder Packet) 17 gm DAILY PRN PO 09/07/17 23:15 10/07/17 23:14 Ondansetron HCl (Zofran Inj) 4 mg Q6H PRN IV 09/07/17 23:15 10/07/17 23:14 09/10/17 06:05 4 MG Aspirin (Ecotrin Tab) 81 mg DAILY PO 09/08/17 08:00 10/08/17 08:59 09/11/17 08:09 81 MG Bisacodyl (Dulcolax Tab) 5 mg DAILY PRN PO 09/07/17 23:15 10/07/17 23:14 Docusate Sodium (coLACE CAP) 200 mg DAILY PRN PO 09/07/17 23:15 10/07/17 23:14 Duloxetine HCl (Cymbalta Cap) 30 mg DAILY PO 09/08/17 08:00 10/08/17 08:59 09/11/17 08:09 30 MG Duloxetine HCl (Cymbalta Cap) 60 mg DAILY PO 09/08/17 08:00 10/08/17 08:59 09/11/17 08:08 60 MG Furosemide (Lasix Tab) 40 mg QAM PO 09/08/17 08:00 10/08/17 08:59 09/11/17 08:08 40 MG Gabapentin (Neurontin Cap) 300 mg TID PO 09/08/17 08:00 10/08/17 08:59 09/11/17 08:08 300 MG Hydroxychloroquine Sulfate (Plaquenil Tab) 200 mg BID PO 09/08/17 08:00 10/08/17 08:59 09/11/17 08:09 200 MG Multivitamins/ Minerals (Multivitamin W/ Minerals Tab) 1 tab DAILY PO 09/08/17 08:00 10/08/17 08:59 09/11/17 08:08 1 TAB Ondansetron HCl (Zofran Odt) 8 mg Q6H PRN SL 09/07/17 23:15 10/07/17 23:14 Oxycodone HCl (Oxycontin Tab) 10 mg BID PO 09/08/17 08:00 09/22/17 08:59 09/11/17 08:13 10 MG Prednisone (PredniSONE TAB) 12.5 mg DAILY PO 09/08/17 08:00 10/08/17 08:59 09/11/17 08:08 12.5 MG Quetiapine Fumarate (seroQUEL TAB) 100 mg HS PO 09/08/17 21:00 10/08/17 20:59 09/10/17 20:46 100 MG Polyethylene (Miralax Powder Packet) 17 gm BID PO 09/08/17 08:00 10/08/17 08:59 09/11/17 08:18 17 GM Piperacillin Sod/ Tazobactam Sod (Consult) 1 ea UD PRN N/A 09/07/17 23:30 10/07/17 23:29 Piperacillin Sod/ Tazobactam Sod 3.375 gm/Dextrose 115 ml @ 28.75 mls/ hr Q8H IV 09/08/17 06:00 09/18/17 05:59 09/11/17 05:49 28.75 MLS/HR Enoxaparin Sodium (Lovenox Inj) 40 mg QAM SQ 09/08/17 08:00 10/08/17 07:59 09/11/17 08:10 40 MG Pantoprazole Sodium (Protonix Tab) 40 mg QAM PO 09/09/17 09:45 10/09/17 09:44 09/11/17 08:08 40 MG Phenazopyridine HCl (Pyridium Tab) 200 mg TID PO 09/10/17 14:00 10/10/17 13:59 09/11/17 08:07 200 MG Ascorbic Acid (Vitamin C Tab) 500 mg QAM PO 09/12/17 08:00 10/12/17 07:59 UNV Miscellaneous Information (Nursing Verbal Med Order) 1 ea DAILY N/A 09/12/17 08:00 10/12/17 07:59 UNV (Danielle Enciso PA-C) Objective Vital Signs Date Time Temp Pulse Resp B/P (MAP) Pulse Ox O2 Delivery O2 Flow Rate FiO2 09/11/17 08:30 Room Air 09/11/17 07:20 36.4 85 18 126/73 (90) 92 Room Air 09/11/17 00:00 Room Air 09/10/17 23:38 36.7 97 18 150/75 (100) 92 Room Air 09/10/17 15:48 36.6 96 18 146/78 (100) 91 09/10/17 15:30 91 Room Air (Danielle Enciso PA-C) Physical Exam General Appearance: no apparent distress Eyes: normal inspection, PERRL ENT: hearing grossly normal Neck: supple Respiratory/Chest: lungs clear, no respiratory distress, no accessory muscle use Cardiovascular: regular rate, rhythm Abdomen: normal bowel sounds, non tender, soft, + pertinent finding (+ostomy- stool present ) Extremities: no pedal edema, no calf tenderness Neurologic/Psychiatric: alert, normal mood/affect, oriented x 3 Skin: normal color, warm/dry, no rash (Danielle Enciso PA-C) Laboratory Results Last 24 Hours Test 09/10/17 16:18 09/10/17 16:33 09/10/17 20:33 09/11/17 06:08 Bedside Glucose 158 mg/dl 169 mg/dl 100 mg/dl White Blood Count 12.17 K/uL Red Blood Count 3.85 M/uL Hemoglobin 11.1 g/dL Hematocrit 36.1 % Mean Corpuscular Volume 93.8 fL Mean Corpuscular Hemoglobin 28.8 pg Mean Corpuscular Hemoglobin Concent 30.7 g/dl RDW Standard Deviation 50.6 fL RDW Coefficient of Variation 15.0 % Platelet Count 253 K/uL Mean Platelet Volume 9.7 fL Sodium Level 141 mmol/L Potassium Level 3.1 mmol/L Chloride Level 103 mmol/L Carbon Dioxide Level 33 mmol/L Anion Gap 5.0 mmol/L Blood Urea Nitrogen 15 mg/dl Creatinine 1.13 mg/dl Est Creatinine Clear Calc Drug Dose 36.6 ml/min Estimated GFR () 51.7 Estimated GFR (Non- 44.6 BUN/Creatinine Ratio 12.9 Random Glucose 84 mg/dl Calcium Level 8.4 mg/dl Test 09/11/17 07:34 Bedside Glucose 109 mg/dl (Danielle Enciso PA-C) Assessment and Plan This is an 86-year-old female with a urinary tract infection which has failed multiple courses of outpatient about therapy rate. UTI w/ failed outpatient treatment (Keflex x2 rounds, Bactrim x1, Cefuroxime x1) : - Admitted to med/surg - IV Rocephin x1 in ED on 09/07; IV Zosyn- started on 09/08 - Pyridium 200 mg TID - UCx- negative - BCx- NGTD - Leukocytosis- follow CBC - Urology consulted, appreciate recommendations Hypokalemia: Treated w/ IVF + 20 mEq KCL, follow PRP and replace PRN- treated w / KCL 40 mEq today Hyponatremia- RESOLVED: Treated w/ IVF RLQ pain, loose stools- IMPROVING: - C. diff- negative - CT of abdomen- w/out acute findings, nonobstructing renal stones noted - Oxycodone as scheduled for pain control T2DM- diet controlled: BSG ACHS and ISS Rheumatoid arthritis, Lupus, OA: Continue Plaquenil, Prednisone, Tylenol, Gabapentin, Oxycodone Depression, anxiety: Continue Duloxetine and Quetiapine GERD: Protonix 40 mg daily- resume Prilosec 40 mg daily at discharge DVT prophylaxis: Lovenox SQ daily Code Status: FULL, NO MECH VENTILATION Dispo: From home, lives alone- PT/OT and CM consulted- likely discharge to home w/ [facility] tomorrow (Danielle Enciso PA-C)
[2017-09-11] MEDS: ACETAMINOPHEN 325 MG TAB PO PRN (14:21)
[2017-09-11 15:06] VITALS: BP 146/78; PULSE 87; TEMP 36.7; O2SAT 92
[2017-09-11] MEDS: QUETIAPINE FUMARATE 100 MG TAB PO SCH (19:46)
[2017-09-11 22:48] VITALS: BP 120/66; PULSE 94; TEMP 36.8; O2SAT 91
[2017-09-12] MEDS: PIPERACILL/TAZOBAC IV 3.375 GM in DEXTROSE 5% 100ML IV SCH (05:47)
[2017-09-12 07:24] VITALS: BP 148/73; PULSE 87; TEMP 36.5; O2SAT 92
[2017-09-12] MEDS: GABAPENTIN 300 MG CAP PO SCH ×2 (07:47→14:10)
[2017-09-12] MEDS: PANTOprazole SOD 40 MG TAB PO SCH (07:47)
[2017-09-12] MEDS: ASPIRIN 81 MG ECTAB PO SCH (07:47)
[2017-09-12] MEDS: DULOXETINE HCL 60 MG CAP PO SCH (07:47)
[2017-09-12] MEDS: CEROVITE ADV FORMULA TAB PO SCH (07:47)
[2017-09-12] MEDS: PHENAZOPYRIDINE HCL 200 MG TAB PO SCH ×2 (07:47→14:10)
[2017-09-12] MEDS: FUROSEMIDE 20 MG TAB PO SCH (07:48)
[2017-09-12] MEDS: HYDROXYCHLOROQUINE SULFATE 200 MG TAB PO SCH (07:48)
[2017-09-12] MEDS: ENOXAPARIN 40 MG/0.4 ML SYR SQ SCH (07:49)
[2017-09-12] MEDS: DULOXETINE (CYMBALTA) 30 MG CAP PO SCH (07:49)
[2017-09-12 07:53] LABS: HEMATOCRIT 37.2 % (37-47); MEAN CELL VOLUME 94.2 fL (80-100); MEAN CORPUSCULAR HEMOGLOBIN 29.1 pg (25-34); MEAN CORPUSCULAR HGB CONC 30.9 g/dl (32-36); MEAN PLATELET VOLUME 9.5 fL (7.4-10.4); PLATELET COUNT 241 K/uL (130-400); RED BLOOD COUNT 3.95 M/uL (4.2-5.4)
[2017-09-12] MEDS ORDERED: ASCORBIC ACID 500 MG TAB PO SCH (08:00)
[2017-09-12] MEDS ORDERED: NURSING VERBAL MED ORDER SCH (08:00)
[2017-09-12] MEDS: OXYCODONE HCL 10 MG TABCR (OXYCONTIN) PO SCH (08:04)
[2017-09-12 08:33] LABS: BUN/CREATININE RATIO 15.1 (10-20); CREATININE 1.02 mg/dl (0.60-1.20); POTASSIUM 3.7 mmol/L (3.5-5.1)
[2017-09-12] MEDS ORDERED: CEFD300C2 PO (08:35)
[2017-09-12] MEDS ORDERED: PHEN-1043 PO (08:35)
--- NOTE | 2017-09-12 10:20 | Discharge Summary ---
Discharge Summary Date of Service Sep 12, 2017. Discharge Summary Admission Date: Sep 07, 2017 at 23:03 Discharge Date: Sep 12, 2017 Discharge Disposition: Home with services Principal Diagnosis: Urinary tract infection Problems/Secondary Diagnoses: UTI w/ failed outpatient treatment (Keflex x2 rounds, Bactrim x1, Cefuroxime x1) Hypokalemia Hyponatremia RLQ pain, loose stools T2DM- diet controlled Rheumatoid arthritis Lupus OA Depression anxiety GERD Immunizations: Have You Had Influenza Vaccine: N/A Influenza Vaccine Date: Jul 24, 2007 History of Tetanus Vaccine?: UTD History of Pneumococcal: Yes Pneumococcal Date: May 09, 1990 History of Hepatitis B Vaccine: Yes Hepatitis Immunization Date: May 09, 1985 Procedures: CHEST ONE VIEW PORTABLE CLINICAL HISTORY: Sepsis dyspnea COMPARISON STUDY: 05/17/2017 FINDINGS: The bones soft tissues and hemidiaphragms are normal. The cardiomediastinal silhouette is normal. The lungs are clear. The pulmonary vasculature is normal. IMPRESSION: Negative chest. The above report was generated using voice recognition software. It may contain grammatical, syntax or spelling errors. Electronically signed by: Robinson Turner M.D. 09/07/2017 6:47 PM Dictated Date/Time: 09/07/2017 6:47 PM The status of this report is Signed. Draft = Not yet reviewed or approved by Radiologist. Signed = Reviewed and approved by Radiologist. ABD/PELVIS IV AND ORAL CONT CT DOSE: 676.19 mGy.cm HISTORY: Flank pain RLQ pain TECHNIQUE: Multiaxial CT images of the abdomen and pelvis were performed following the use of intravenous and oral contrast. A dose lowering technique was utilized adhering to the principles of ALARA. COMPARISON STUDY: 05/14/2016 FINDINGS: Lung bases are clear. Evidence for prior cholecystectomy. Stable mild biliary ductal prominence. Spleen is uniform. Ureters demonstrates moderate atrophy and fatty replacement. This is unchanged. Several nonobstructing renal calcifications. Findings consistent with scattered colonic diverticulosis. Bowel pattern is nonobstructive. There is a left anterior ostomy. There are no obstructive characteristics at that site. The visualized components of the appendix are unremarkable. IMPRESSION: 1. Nonobstructive bowel pattern. 2. Several nonobstructing renal calcifications. 3. Left anterior ostomy considered patent and nonobstructive. 4. Scattered colonic diverticulosis with no evidence for acute diverticulitis. 5. Operative changes consistent with bilateral hip arthroplasties as well as prior cholecystectomy The above report was generated using voice recognition software. It may contain grammatical, syntax or spelling errors. Electronically signed by: Robinson Turner M.D. 09/07/2017 9:09 PM Dictated Date/Time: 09/07/2017 9:05 PM The status of this report is Signed. Draft = Not yet reviewed or approved by Radiologist. Signed = Reviewed and approved by Radiologist. Medication Reconciliation New Medications: Cefdinir (Omnicef) 300 Mg Cap 300 MG PO Q12H for 2 Days, #4 CAP Continued Medications: Ascorbic Acid (Ascorbic Acid) 250 Mg Tab 500 MG PO DAILY Aspirin (Aspirin Ec) 81 Mg Tab 81 MG PO DAILY B-Complex Vitamins (Vitamin B Complex) 1 Tab Tab 1 TAB PO HS Bisacodyl (Dulcolax) 5 Mg Tab 5 MG PO DAILY PRN for Constipation, TAB Cholecalciferol (Vitamin D-3) 2,000 Unit Tab 2000 UNITS PO DAILY Cyanocobalamin (Vitamin B12) 1,000 Mcg Tab 1000 MCG PO HS Docusate Sodium (Colace) 100 Mg Cap 200 MG PO DAILY PRN for Constipation for 30 Days, #60 CAP Duloxetine Hcl (Cymbalta) 60 Mg Cap 60 MG PO DAILY TAKE ALONG WITH ONE 30MG CAPSULE TO = 90MG Duloxetine Hcl (Cymbalta) 30 Mg Cap 30 MG PO DAILY TAKE ALONG WITH ONE 60MG CAP TO = 90MG Furosemide (Lasix) 20 Mg Tab 40 MG PO QAM, TAB Gabapentin (Neurontin) 300 Mg Cap 300 MG PO TID, CAP Home O2 Therapy (Oxygen) Gas 3 LITERS NA PRN Hydroxychloroquine Sulfate (Plaquenil) 200 Mg Tab 200 MG PO BID, TAB Ocuvite Preservision (Ocuvite Preservision) 1 Tab Tab 1 TAB PO DAILY, TAB Omeprazole (Prilosec) 20 Mg Capcr 40 MG PO DAILY for 30 Days, CAP Ondansetron Odt (Zofran Odt) 8 Mg Soltab 8 MG SL Q6H PRN for Nausea, TAB Oxycodone HCl (Oxycontin) 10 Mg Tabcr 10 MG PO BID Polyethylene Glycol 3350 (Miralax) 1 Pow Pow 17 GM PO BID, #527 GM Prednisone Tab (Prednisone) 10 Mg Tab 12.5 MG PO DAILY, TAB Quetiapine Fumarate (Seroquel) 100 Mg Tab 100 MG PO HS, TAB Discontinued Medications: Cefuroxime Axetil (Cefuroxime Axetil) 500 Mg Tab 1 TAB PO BID for 10 Days, #20 TAB Trimethoprim (Proloprim) 100 Mg Tab 100 MG PO HS, TAB Referrals At Discharge Follow up Referrals: Family Practice Referral - Within 1-2 Weeks with Nidhi Gardner MD Urologist Referral - Within 1 Week with Basil Coronel D.O. Discharge Exam Review of Systems: Constitutional: No fever, No chills, No sweats, No weakness, No fatigue Respiratory: No cough, No shortness of breath, No hemoptysis Cardiovascular: No chest pain, No edema, No palpitations Abdomen: No pain, No nausea, No vomiting, No diarrhea, No constipation Musculoskeletal: No joint pain, No muscle pain, No swelling, No calf pain Genitourinary - Female: No dysuria, No urinary frequency, No urinary urgency , No urinary incontinence, No urinary retention, No hematuria Neurologic: No weakness, No numbness/tingling Psychiatric: No depression symptoms, No anxiety Endocrine: No fatigue Hematologic / Lymphatic: No abnormal bleeding/bruising Integumentary: No rash, No itch, No new/changing skin lesions Physical Exam: General Appearance: no apparent distress Eyes: normal inspection, PERRL ENT: hearing grossly normal Neck: supple Respiratory/Chest: lungs clear, no respiratory distress, no accessory muscle use Cardiovascular: regular rate, rhythm Abdomen / GI: normal bowel sounds, non tender, soft, + pertinent finding (+ ostomy ) Extremities: no calf tenderness, no pedal edema Neurologic/Psychiatric: alert, normal mood/affect, oriented x 3 Skin: normal color, warm/dry, no rash Hospital Course Admission H&P: Is a pleasant 86-year-old female who presents to the emergency room with several weeks of urinary urgency, burning, and frequency. In addition to this, the patient describes feeling generally weak and reports a generalized sense of malaise. She is also felt chills, diaphoresis, nausea, and for the past several days and had very poor oral intake. The patient denies any other symptoms including chest pain, shortness of breath, wheezing, orthopnea, lotion edema. She has not had any abdominal pain or diarrhea. The patient states that she has been on courses of antibiotics over the past 3 weeks. These include 2 rounds of Keflex, one round of Bactrim, and more recently another antibiotic which she cannot name, though by review of her medication list is suspect it's Cefuroxime. The patient does report previous issues with urinary tract infections. 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 However currently 2 years ago this was corrected surgically. Physical Exam Vital Signs Date Time Temp Pulse Resp B/P (MAP) Pulse Ox O2 Delivery O2 Flow Rate FiO2 09/07/17 23:33 36.4 94 16 101/55 94 Room Air 09/07/17 23:02 98 16 116/53 93 09/07/17 20:41 95 Room Air 09/07/17 20:40 95 18 112/79 95 09/07/17 18:07 36.8 109 18 116/70 94 Room Air General Appearance: WD/WN, no apparent distress Head: normocephalic, atraumatic Eyes: normal inspection, EOMI ENT: hearing grossly normal, pharynx normal, + pertinent finding (dry mucous membranes) Neck: supple, no adenopathy, no JVD Respiratory/Chest: lungs clear, no respiratory distress Cardiovascular: regular rate, rhythm, no gallop, no murmur Abdomen/GI: normal bowel sounds, non tender, no organomegaly Back: no CVA tenderness, no muscle spasm Extremities/Musculoskelatal: no calf tenderness, no pedal edema Neurologic/Psych: alert, normal mood/affect, oriented x 3 Skin: normal color, warm/dry, no rash Lymphatic: no adenopathy Hospital Course: This is an 86-year-old female with a urinary tract infection which has failed multiple courses of outpatient about therapy rate. UTI w/ failed outpatient treatment (Keflex x2 rounds, Bactrim x1, Cefuroxime x1) : - Admitted to med/surg - IV Rocephin x1 in ED on 09/07; IV Zosyn- started on 09/08- discharge on Cefdinir 300 mg BID x2 days to complete 7 day course - Pyridium 200 mg TID - UCx- negative - BCx- NGTD - Leukocytosis- follow CBC - Recommend patient f/u w/ urology within the next 1 week, states she has scheduled appointment on Sep.15 w/ Dr. Coronel Hypokalemia- RESOLVED: Treated w/ IVF + 20 mEq KCL and KCL PO supplement, follow PRP and replace PRN Hyponatremia- RESOLVED: Treated w/ IVF RLQ pain, loose stools- IMPROVING: - C. diff- negative - CT of abdomen- w/out acute findings, nonobstructing renal stones noted - Oxycodone as scheduled for pain control T2DM- diet controlled: BSG ACHS and ISS while inpatient Rheumatoid arthritis, Lupus, OA: Continue Plaquenil, Prednisone, Tylenol, Gabapentin, Oxycodone Depression, anxiety: Continue Duloxetine and Quetiapine GERD: Protonix 40 mg daily- resume Prilosec 40 mg daily at discharge DVT prophylaxis: Lovenox SQ daily Code Status: FULL, NO MECH VENTILATION Dispo: Discharge to home w/ [facility] I personally interviewed and examined the patient. I agree with history of present illness and physical exam mentioned above, I also performed my own history taking and examination. Past medical history and review of system has been obtained by myself I reviewed all pertinent labs and studies Reviewed current medications I discussed and formulated of the assessment and plan mentioned above. Please refer to the Summary mentioned by Miss Enciso. General Appearance: not in acute distress Eyes: normal Sclerae, extraocular muscle intact ENT: hearing grossly normal Neck: supple Respiratory/Chest: normal air entry especially bilateral ,no respiratory distress, no accessory muscle use Cardiovascular: regular rate, rhythm, no murmur Abdomen: non tender, soft, no masses Extremities: no edema Neurologic/Psychiatric: Awake alert oriented times place and person moves all extremities sensation intact cranial nerves II-12 appear to be intact Skin: normal color, warm/dry, no rash 86 years old female presented to the hospital with recurrent urinary tract infection, failed outpatient antibiotics treatment. Improved on Zosyn IV as an inpatient, urine cultures are negative obtain status post antibiotics exposure. 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 referral to urologist as an out patient to R/O fistula recurrence or partial obstruction. Vit C and cranberry tablets were added to prophylax her from UTI if she developed another recurrence she should be placed on maintenance antibiotic prophylaxis CT scan abdomen showed non obstructing renal calcifications Total Time Spent: Greater than 30 minutes This includes examination of the patient, discharge planning, medication reconciliation, and communication with other providers. Discharge Instructions Please refer to the electronic Patient Visit Report (Discharge Instructions) for additional information. Follow-Up Please follow-up with your PCP within 5-7 days Please follow-up with Urology within the next 1 week Please follow-up/keep all of your subspecialty appointments Additional Copies To Basil Coronel D.O.; Nidhi Gardner MD
--- NOTE | 2017-09-12 10:21 | Discharge Instructions ---
Discharge Instructions Date of Service Sep 12, 2017. Admission Reason for Admission: Failure Of Outpatient Treatment, Uti Discharge Discharge Diagnosis / Problem: Urinary tract infection Discharge Goals Goal(s): Decrease discomfort, Improve function, Diagnostic testing, Therapeutic intervention, Prevent Disease Progression Activity Recommendations Activity Limitations: resume your previous activity . Instructions / Follow-Up Instructions / Follow-Up Urinary tract infection: Cefdinir 300 mg twice daily until prescription is completed- this medication is an antibiotic Resume all other regular home medications as prescribed FOLLOW-UPS: Please follow-up with your PCP within 5-7 days Please follow-up with Urology within 1 week- A referral has been placed; if you do not hear of an appointment in the next 24 hours, please call the office to confirm appointment. Please follow-up/keep all of your subspecialty appointments Current Hospital Diet Patient's current hospital diet: AHA Diet (Heart Healthy), Diabetes Type 2 Diet Discharge Diet Recommended Diet: AHA Diet (Heart Healthy), Diabetes Type 2 Diet Pending Studies Studies pending at discharge: no Medical Emergencies . Who to Call and When: Medical Emergencies: If at any time you feel your situation is an emergency, please call 911 immediately. . Non-Emergent Contact Non-Emergency issues call your: Primary Care Provider, Urologist Call Non-Emergent contact if: you have a fever, your pain is not controlled, your pain is worsening, your pain is unusual for you, your pain is concerning you, you have any medication questions . . "Provider Documentation" section prepared by Danielle Enciso. . VTE Core Measure Inpt VTE Proph given/why not?: SCD's
[2017-09-12] MEDS ORDERED: CRAN405C3 PO (12:39)
[2017-09-12 12:59] VITALS: BP 148/73; PULSE 87; TEMP 36.5; O2SAT 92
== END 2017-09-12 14:40 | disposition home health service (06) | DRG 690 ==
LOC: C.EDB 17:54 → C.4E 23:03 → ENRESERV 23:24
PROVIDERS: ADMIT Student in an Organized Health Care Education/Training Program; ATTEND Internal Medicine
DX: N39.0 Urinary tract infection, site not specified (principal); E87.1 Hypo-osmolality and hyponatremia; E87.6 Hypokalemia; R10.31 Right lower quadrant pain; R19.7 Diarrhea, unspecified; E11.9 Type 2 diabetes mellitus without complications; M06.9 Rheumatoid arthritis, unspecified; M32.9 Systemic lupus erythematosus, unspecified; K21.9 Gastro-esophageal reflux disease without esophagitis; M19.90 Unspecified osteoarthritis, unspecified site; F41.9 Anxiety disorder, unspecified; F32.9 Major depressive disorder, single episode, unspecified; Z99.81 Dependence on supplemental oxygen; Z96.643 Presence of artificial hip joint, bilateral; Z93.3 Colostomy status; Z87.891 Personal history of nicotine dependence; Z79.82 Long term (current) use of aspirin; Z79.52 Long term (current) use of systemic steroids; Z79.891 Long term (current) use of opiate analgesic; Z79.899 Other long term (current) drug therapy

== ENCOUNTER 2017-09-30 10:31 | Day surgery (SDC) | payer BC ==
[2017-09-28 13:49] VITALS: BMI 28.0
[~2017-09-30] VITALS: Ht 160 cm; Wt 72.7 kg
[~2017-09-30 10:31] MED LIST changes: -ASCO250T5 PO; -ASPI81TA28 PO; -B-COTAB18 PO; -BISA-16 PO; +CEFAZOLIN 2000MG IV PUSH 10 ML IV SCH; -CEFD1CAP14 PO; +CEFD300C2 PO; -CHOL200027 PO; +CRANPOW PO; -CYAN100020 PO; -CYM/30 PO; -DICL1GEL12 TOP; -DOCU-94 PO; -GABA-113 PO; -HYDR200T5 PO; +LACTATED RINGER'S 1000ML 1,000 ML IV SCH; +LEVO100T7 PO; -LEVO88TA PO; -MULT-190 PO; -ONDA8TAB62 SL; -OXGN; +PRLSR20 PO; -TRIM100T PO; +VOLTAREN GEL TOP
[2017-09-30] MEDS ORDERED: LEVO88TA PO (11:08)
[2017-09-30 11:14] VITALS: BP 112/41; PULSE 105; TEMP 37; O2SAT 94; Ht 160 cm; Wt 72.7 kg
[2017-09-30] MEDS ORDERED: PROPOFOL IV EMULSION 10 MG/ML 20 ML VIAL IV ONE (11:52)
[2017-09-30] MEDS ORDERED: LIDOCAINE HCL 2% 2 ML VIAL (20MG/ML) ONE (11:52)
[2017-09-30] MEDS ORDERED: ONDANSETRON INJ 2 MG/ML 2 ML VIAL ONE (11:52)
[2017-09-30] MEDS ORDERED: DEXAMETHASONE SOD INJ 4 MG/ML VIAL ONE (11:52)
[2017-09-30] MEDS ORDERED: FENTANYL CITRATE INJ 50 MCG/1 ML 2 ML VIAL ONE (11:52)
[2017-09-30] MEDS ORDERED: PHEN-775 PO (12:19)
[2017-09-30] MEDS ORDERED: CEPH500C PO (12:19)
--- NOTE | 2017-09-30 12:21 | Discharge Instructions ---
Discharge Instructions Date of Service Sep 30, 2017. Admission Reason for Admission: Hematuria Discharge Discharge Diagnosis / Problem: Hematuria Discharge Goals Goal(s): Decrease discomfort, Improve function Activity Recommendations Activity Limitations: resume your previous activity Lifting Limitations: no more than 25 pounds, gradually increase as tolerated Exercise/Sports Limitations: rest today, gradually increase as tolerated Shower/Bathe: no limitations . Instructions / Follow-Up Instructions / Follow-Up May have blood in urine or pelvic discomfort. Call if any fevers. Current Hospital Diet Patient's current hospital diet: Reg Discharge Diet Recommended Diet: Regular Diet Procedures Procedures Performed: Cystoscopy Pending Studies Studies pending at discharge: no Medical Emergencies . Who to Call and When: Medical Emergencies: If at any time you feel your situation is an emergency, please call 911 immediately. . Non-Emergent Contact Non-Emergency issues call your: Primary Care Provider, Urologist Call Non-Emergent contact if: you have a fever, temperature is above 101, temperature is above 101.5, your pain is not controlled, your pain is worsening . . "Provider Documentation" section prepared by Basil Coronel,. . VTE Core Measure Inpt VTE Proph given/why not?: SCD's
[2017-09-30] MEDS ORDERED: OXYCODONE/ACETAMINOPHEN 7.5-325 TAB PO PRN (12:30)
[2017-09-30] MEDS ORDERED: CEFAZOLIN SOD 1 GM VIAL ONE (12:34)
--- NOTE | 2017-09-30 13:14 | [facility] Operative Report ---
Operative Report Operative Date Sep 30, 2017. Pre-Operative Diagnosis Hematuria, UTI Post-Operative Diagnosis Same Procedure(s) Performed Cystoscopy, Fulguration, Biopsy Surgeon Homer Interior Design Instructor Surgeon(s) None Estimated Blood Loss Minimal Findings Bladder irritation/lesion at trigone/bladder neck Specimens Biopsy bladder wall Drains 16 F Silicon catheter. Anesthesia General Complication(s) None Disposition Recovery Room / PACU Indications History of Fistula with UTI and hematuria. Description of Procedure Patient was consented and brought back to the operating room. Patient was placed under anesthesia in the supine position. Patient was prepped and draped in the regular sterile fashion. A time out was completed. A 30degree Cystoscope was placed into the bladder and the entire bladder was examined. The UO's were identified. The entire bladder appeared clear of lesion, except for a patch of bullous lesions at the bladder neck/trigone. Both UO's were clear of lesions. A cold cup biopsy forcep was selected and 3 biopsies were taken. A Bugby cautery was then selected and the area fulgurated. No other masses or lesions or other areas of concern were identified. The bladder was partially emptied. The scope was removed and a 16 Fr Silicon catheter was placed. The patient was cleaned, aroused from anesthesia, and transferred to the pacu in stable condition having tolerated the procedure well with no complications. I was present and participated in all aspects of the procedure. The patient will be monitored in the PACU until transferred. I attest to the content of the Intraoperative Record and any orders documented therein. Any exceptions are noted below.
[2017-09-30] MEDS ORDERED: FENTANYL CITRATE INJ 50 MCG/1 ML 2 ML VIAL IV PRN (13:45)
[2017-09-30] MEDS ORDERED: ATROPINE SULFATE 0.1 MG/ML 5ML SYR IV PRN (13:45)
[2017-09-30] MEDS ORDERED: ONDANSETRON INJ 2 MG/ML 2 ML VIAL IV PRN (13:45)
--- NOTE | 2017-09-30 13:55 | Anesthesiology Progress Note ---
Anesthesia Post Op Note Date & Time Sep 30, 2017 at 13:55 Vital Signs Pain Intensity: 0 Vital Signs Past 12 Hours Date Time Temp Pulse Resp B/P (MAP) Pulse Ox O2 Delivery O2 Flow Rate FiO2 09/30/17 13:50 104 15 99 09/30/17 13:50 36.4 103 15 09/30/17 13:46 138/61 09/30/17 13:45 102 16 99 09/30/17 13:45 103 16 09/30/17 13:41 128/66 09/30/17 13:40 101 10 09/30/17 13:40 101 10 99 09/30/17 13:36 129/64 09/30/17 13:35 101 20 100 09/30/17 13:35 102 20 09/30/17 13:31 141/72 09/30/17 13:30 Room Air 09/30/17 13:30 104 20 100 09/30/17 13:30 104 20 09/30/17 13:26 133/69 09/30/17 13:25 104 20 09/30/17 13:25 103 20 100 09/30/17 13:21 130/64 09/30/17 13:20 106 15 09/30/17 13:20 106 15 100 09/30/17 13:16 136/72 09/30/17 13:15 106 20 100 09/30/17 13:15 106 20 09/30/17 13:12 139/73 09/30/17 13:10 107 11 100 09/30/17 13:10 107 11 09/30/17 13:05 36.6 110 16 149/80 100 Oxymask 7 09/30/17 11:14 37 105 18 112/41 (64) 94 Room Air Notes Mental Status: alert / awake / arousable, participated in evaluation Pt Amnestic to Procedure: Yes Nausea / Vomiting: adequately controlled Pain: adequately controlled Airway Patency, RR, SpO2: stable & adequate BP & HR: stable & adequate Hydration State: stable & adequate Anesthetic Complications: no major complications apparent
[2017-09-30 14:00] VITALS: BP 136/58; PULSE 107; TEMP 36.7; O2SAT 93
[2017-09-30 14:30] VITALS: BP 131/61; PULSE 107; TEMP 36.7; O2SAT 95
[2017-09-30 15:00] VITALS: BP 135/59; PULSE 109; TEMP 36.7; O2SAT 94
[2017-11-02] MEDS ORDERED: VANC1SUS PO (12:40)
[2017-11-02] MEDS ORDERED: MCRK20 PO (12:40)
[2017-11-02] MEDS ORDERED: VANC5CAP OR (14:32)
[2017-11-20] MEDS ORDERED: DIPH25CA5 PO (11:42)
[2017-11-20] MEDS ORDERED: CIPR250T3 PO (11:42)
[2018-03-29] MEDS ORDERED: QUET1TAB10 PO (15:51)
[2018-03-29] MEDS ORDERED: CYM30 (15:51)
[2018-03-29] MEDS ORDERED: CRFL PO (17:03)
[2018-03-29] MEDS ORDERED: ONDA4TAB10 SL (17:03)
[2018-04-20] MEDS ORDERED: ONDA8TAB62 SL (10:44)
[2018-04-20] MEDS ORDERED: OXGN (10:44)
[2018-04-20] MEDS ORDERED: VLTG TOP (11:36)
[2018-04-20] MEDS ORDERED: CYM/30 PO (12:46)
[2018-04-20] MEDS ORDERED: GABA-113 PO (15:05)
[2018-04-20] MEDS ORDERED: DEXL60CA4 PO (15:52)
[2018-04-20] MEDS ORDERED: BISA-16 PO (16:00)
[2018-04-20] MEDS ORDERED: CYAN10005 PO (16:08)
[2018-04-20] MEDS ORDERED: FLNIN NAE (16:20)
[2018-04-20] MEDS ORDERED: CHOL2000 PO (16:48)
[2018-04-20] MEDS ORDERED: ASCO500T16 PO (16:48)
[2018-04-20] MEDS ORDERED: B-CO1CAP3 PO (16:56)
[2018-04-22] MEDS ORDERED: SULF800T23 PO (13:28)
[2018-05-05] MEDS ORDERED: SULF800T23 PO (14:17)
[2018-06-03] MEDS ORDERED: QUET1TAB32 PO (16:33)
[2018-06-03] MEDS ORDERED: GABA-112 PO (16:33)
[2018-06-03] MEDS ORDERED: DOCU-94 PO (16:33)
[2018-06-03] MEDS ORDERED: PRD/25 PO (16:33)
[2018-06-03] MEDS ORDERED: NTRGSL/4 UT (16:33)
[2018-06-03] MEDS ORDERED: PHEN-774 PO (16:33)
[2018-06-03] MEDS ORDERED: FURO-85 PO (16:33)
[2018-06-03] MEDS ORDERED: QUET1TAB9 PO (16:33)
[2018-06-03] MEDS ORDERED: FEXO1TAB49 PO (16:33)
[2018-06-03] MEDS ORDERED: GABA-113 PO (16:33)
[2018-06-08] MEDS ORDERED: CEFD300C3 PO (08:32)
[2018-06-08] MEDS ORDERED: FRRS300 PO (08:32)
== END 2017-09-30 16:05 | disposition home or self-care (01) ==
LOC: C.ACU 10:31
PROVIDERS: ATTEND Urology
DX: R31.0 Gross hematuria (principal); R33.9 Retention of urine, unspecified; N30.80 Other cystitis without hematuria; I25.10 Atherosclerotic heart disease of native coronary artery without angina pectoris; J45.909 Unspecified asthma, uncomplicated; F32.9 Major depressive disorder, single episode, unspecified; Z93.3 Colostomy status; F41.8 Other specified anxiety disorders; E78.00 Pure hypercholesterolemia, unspecified; I10 Essential (primary) hypertension; E03.9 Hypothyroidism, unspecified; Z86.73 Personal history of transient ischemic attack (TIA), and cerebral infarction without residual deficits; Z96.653 Presence of artificial knee joint, bilateral; Z90.710 Acquired absence of both cervix and uterus; Z88.1 Allergy status to other antibiotic agents; Z88.5 Allergy status to narcotic agent; Z79.899 Other long term (current) drug therapy; Z79.52 Long term (current) use of systemic steroids; Z91.040 Latex allergy status; Z79.82 Long term (current) use of aspirin; Z80.3 Family history of malignant neoplasm of breast; Z80.0 Family history of malignant neoplasm of digestive organs

== ENCOUNTER → 2017-10-13 | Outpatient (CLI) | payer BC ==
[~2017-10-13] MED LIST changes: +ASCO500T16 PO; +ASPI81TA28 PO; +B-CO1CAP3 PO; +BISA-16 PO; -CEFAZOLIN 2000MG IV PUSH 10 ML IV SCH; +CEFD300C3 PO; +CEFE2INJ2 IV; +CEPH500C PO; +CHOL2000 PO; +CIPR250T3 PO; +CRAN1TAB4 PO; +CRFL PO; +CYAN10005 PO; +CYM/30 PO; +CYM30; +DIPH25CA5 PO; +DOCU-94 PO; +FEXO1TAB49 PO; +FLNIN; +FLNIN NAE; +FRRS300 PO; +FRS/40 PO; +GABA-112 PO; +GABA-113 PO; +HYDR200T5 PO; -LACTATED RINGER'S 1000ML 1,000 ML IV SCH; +LCTX PO; -LEVO100T7 PO; +LEVO88TA PO; +MCRK20 PO; +MULT-190 PO; +NTRGSL/4 UT; +ONDA4TAB10 SL; +ONDA8TAB62 SL; +OXGN; +OXYC-737 PO; +PHEN-774 PO; +PRAZ1CAP10 PO; +PRD/25 PO; +QUET1TAB10 PO; +QUET1TAB32 PO; +QUET1TAB9 PO; +SULF800T23 PO; +VANC1SUS PO; +VANC5CAP OR; +VLTG TOP
== END | disposition home or self-care (01) ==
LOC: C.LAB 12:50
PROVIDERS: ATTEND Urology
DX: N39.0 Urinary tract infection, site not specified (principal)

== ENCOUNTER 2017-10-15 13:55 | Inpatient (IN) | payer BC, OTHER ==
[~2017-10-15] VITALS: Ht 160 cm; Wt 74.0 kg
[~2017-10-15 13:55] MED LIST changes: -ASCO500T16 PO; -B-CO1CAP3 PO; -BISA-16 PO; -CEFD300C3 PO; -CEFE2INJ2 IV; -CHOL2000 PO; -CIPR250T3 PO; -CRAN1TAB4 PO; -CRFL PO; -CYAN10005 PO; -CYM30; -DIPH25CA5 PO; -DOCU-94 PO; -FEXO1TAB49 PO; -FLNIN; -FLNIN NAE; -FRRS300 PO; -FRS/40 PO; -GABA-112 PO; -LCTX PO; -MCRK20 PO; -MULT-190 PO; -NTRGSL/4 UT; -ONDA4TAB10 SL; -OXYC-737 PO; -PHEN-774 PO; -PRAZ1CAP10 PO; -PRD/25 PO; -QUET1TAB10 PO; -QUET1TAB32 PO; -QUET1TAB9 PO; -SULF800T23 PO; -VANC1SUS PO; -VANC5CAP OR; -VLTG TOP
[2017-10-15] MEDS ORDERED: SODIUM CHLORIDE 0.9% 1000ML 1,000 ML IV STA (15:36)
[2017-10-15] MEDS ORDERED: SODIUM CHLORIDE 0.9% 1000ML 1,000 ML IV ONE (15:36)
--- NOTE | 2017-10-15 15:45 | EMERGENCY ROOM VISIT NOTE ---
History Report prepared by Master: Abiola Rey Under the Supervision of: Dr. Brandon Granados M.D. First contact with patient: 15:15 Chief Complaint: URINARY SYMPTOMS Stated Complaint: UTI - SENT BY DR OLIVEIRA FOR IV Nursing Triage Summary: pt reports having uti sent by pcp for iv antibiotics oral meds not helping sx History of Present Illness The patient is a 86 year old female who presents to the Emergency Room with complaints of a urinary tract infection beginning about a week ago. The patient called Dr. Lundberg's PA this morning who referred the patient to come to the ED for IV antibiotics. She notes she has been on oral antibiotics for the past week which has not help to relieve any of her symptoms. The patient has a Best catheter removed on Wednesday, two days ago. She notes nausea, burning with urination, back pain, and increased urination. The patient notes right sided abdominal pain beginning five days ago. She reports having abdominal pain like this when she was admitted into the hospital in August. She denies chest pain and fever. The patient states she has been in and out of the hospital for the past year for UTIs. The patient has a history of kidney stones. Source of History: patient Position: other (generalized) Quality: other (UTI) Associated Symptoms: + abdominal pain, + urinary symptoms, No fevers, No chest pain Review of Systems See HPI for pertinent positives & negatives. A total of 10 systems reviewed and were otherwise negative. 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 Nurse's notes were reviewed and I agree with. Family History Cancer Diabetes mellitus Gallbladder disease Heart disease Hypertension Kidney disease Kidney stones Seizures Social History Smoking Status: Never Smoker Alcohol Use: none Drug Use: none Marital Status: Housing Status: lives alone Occupation Status: retired Current/Historical Medications Scheduled Ascorbic Acid (Ascorbic Acid), 500 MG PO DAILY Aspirin (Aspirin Ec), 81 MG PO QAM B-Complex Vitamins (B Complex), 1 CAP PO DAILY Cefdinir (Omnicef), 300 MG PO Q12H Cholecalciferol (Vitamin D3), 1 CAP PO DAILY Cranberry (Vaccinium Macrocarp (Cranberry), 1 TAB PO NOON Dexlansoprazole (Dexilant), 60 MG PO BID Diltiazem Hcl Ext Rel (Tiazac), 120 MG PO NOON Duloxetine Hcl (Cymbalta), 60 MG PO QAM Duloxetine Hcl (Cymbalta), 30 MG PO QAM Furosemide (Lasix), 40 MG PO QAM Gabapentin (Neurontin), 300 MG PO TID Home O2 Therapy (Oxygen), 3 LITERS NA PRN Hydroxychloroquine Sulfate (Plaquenil), 200 MG PO BID Levothyroxine Sodium (Synthroid), 88 MCG PO DAILY Omeprazole (Prilosec), 20 MG PO BID Oxycodone HCl (Oxycontin), 10 MG PO BID Polyethylene Glycol 3350 (Miralax), 17 GM PO BID Prednisone Tab (Prednisone), 12.5 MG PO QAM Quetiapine Fumarate (Seroquel), 100 MG PO HS [Voltaren Gel], 1 DOSE TOP PRN Scheduled PRN Ondansetron Odt (Zofran Odt), 8 MG SL Q6H PRN for Nausea Allergies Coded Allergies: Ciprofloxacin (Verified Allergy, Intermediate, HIVES, 10/15/17) Quinolones (Verified Allergy, Intermediate, HIVES, 10/15/17) Fluticasone (Verified Allergy, Unknown, ADVAIR-UNKNOWN, 10/15/17) Lactose Intolerance (Verified Allergy, Unknown, GI UPSET, 10/15/17) Latex1 -Allergic Contact Dermititis (Verified Allergy, Unknown, RASH, ) Morphine (Verified Allergy, Unknown, NAUSEA AND VOMITING, 10/15/17) Nitrofurantoin (Verified Allergy, Unknown, HIVES, 10/15/17) Salmeterol (Verified Allergy, Unknown, ADVAIR, 10/15/17) Scallop (Verified Allergy, Unknown, THROAT SWELLS, 10/15/17) Celecoxib (Verified Adverse Reaction, Unknown, barretts esophagus, 10/15/17) Physical Exam Vital Signs Date Time Temp Pulse Resp B/P (MAP) Pulse Ox O2 Delivery O2 Flow Rate FiO2 10/15/17 20:09 102 20 140/63 95 Room Air 10/15/17 18:27 104 20 117/73 91 Room Air 10/15/17 16:35 108 20 147/73 95 Room Air 10/15/17 14:01 36.6 109 18 111/59 92 Room Air Physical Exam General: Non-ill appearing older female in no acute distress. HEENT: Normal cephalic atraumatic. Pupils are equal round and reactive to light. Extraocular movements are intact. Oropharynx is pink with moist mucous membranes. No swelling of the mouth lips or tongue. Neck: Supple with a midline trachea. No meningeal signs or stiffness, no JVD or bruits. No Stridor. Chest: Clear to auscultation bilaterally. No wheezes or rhonchi. No increased work of breathing. Heart: regular rate and rhythm. Abdomen: Mild flank tenderness, mild RLQ tenderness. Soft, nondistended without rebound guarding or rigidity. Extremities: No cyanosis clubbing or edema. No calf tenderness or assymetry Spine/Back. Non tender to palpation. No CVA tenderness Skin: Good turgor without rashes. Neurologic exam: Cranial nerves two through 12 are intact. Motor and sensation are intact and symmetrical throughout. Medical Decision & Procedures ER Provider Diagnostic Interpretation: Radiology results as stated below per my review and radiologist interpretation: CT OF THE ABDOMEN AND PELVIS WITHOUT CONTRAST, STONE PROTOCOL FINDINGS: Mild cardiomegaly is noted. Mild biliary ductal dilatation is unchanged and likely related to prior cholecystectomy. There is no peripancreatic infiltration. Unenhanced images of the spleen and adrenal glands are unremarkable. There are multiple bilateral renal calculi. There is no hydronephrosis. No ureteral calculi are identified although sensitivity for detection of small distal ureteral nonobstructing calculus diminished due to streak artifact from bilateral hip arthroplasties. A few descending colostomy is noted. There is no evidence for a bowel obstruction. There is colonic diverticulosis without evidence for acute diverticulitis. There is no pelvic or abdominal lymphadenopathy. The appendix is normal. No suspicious osseous lesions are identified. A small umbilical hernia is noted. IMPRESSION: 1. Bilateral nephrolithiasis. No hydronephrosis. No ureteral calculi identified although sensitivity for detection of small nonobstructing distal ureteral calculi is diminished by streak artifact from bilateral hip arthroplasties. 2. No bowel obstruction. Normal appendix. Electronically signed by: Anjel Encarnacion M.D. Laboratory Results 10/15/17 15:50 Red Blood Count 4.01, Mean Corpuscular Volume 93.8, Mean Corpuscular Hemoglobin 29.2, Mean Corpuscular Hemoglobin Concent 31.1, Mean Platelet Volume 9.7, Neutrophils (%) (Auto) 85.4, Lymphocytes (%) (Auto) 8.3, Monocytes (%) (Auto) 4.5, Eosinophils (%) (Auto) 0.6, Basophils (%) (Auto) 0.2, Neutrophils # (Auto) 15.55, Lymphocytes # (Auto) 1.51, Monocytes # (Auto) 0.81, Eosinophils # (Auto) 0.11, Basophils # (Auto) 0.03 10/15/17 15:50 Test 10/15/17 15:00 10/15/17 15:50 Urine Color DK YELLOW Urine Appearance TURBID (CLEAR) Urine pH 6.5 (4.5-7.5) Urine Specific Cardinal 1.013 (1.000-1.030) Urine Protein NEG (NEG) Urine Glucose (UA) NEG (NEG) Urine Ketones NEG (NEG) Urine Occult Blood 1+ (NEG) Urine Nitrite POS (NEG) Urine Bilirubin NEG (NEG) Urine Urobilinogen NEG (NEG) Urine Leukocyte Esterase LARGE (NEG) Urine WBC (Auto) >30 /hpf (0-5) Urine RBC (Auto) 0-4 /hpf (0-4) Urine Hyaline Casts (Auto) 0 /lpf (0-5) Urine Epithelial Cells (Auto) 5-10 /lpf (0-5) Urine Bacteria (Auto) 1+ (NEG) White Blood Count 18.19 K/uL (4.8-10.8) Red Blood Count 4.01 M/uL (4.2-5.4) Hemoglobin 11.7 g/dL (12.0-16.0) Hematocrit 37.6 % (37-47) Mean Corpuscular Volume 93.8 fL (80-100) Mean Corpuscular Hemoglobin 29.2 pg (25-34) Mean Corpuscular Hemoglobin Concent 31.1 g/dl (32-36) Platelet Count 300 K/uL (130-400) Mean Platelet Volume 9.7 fL (7.4-10.4) Neutrophils (%) (Auto) 85.4 % Lymphocytes (%) (Auto) 8.3 % Monocytes (%) (Auto) 4.5 % Eosinophils (%) (Auto) 0.6 % Basophils (%) (Auto) 0.2 % Neutrophils # (Auto) 15.55 K/uL (1.4-6.5) Lymphocytes # (Auto) 1.51 K/uL (1.2-3.4) Monocytes # (Auto) 0.81 K/uL (0.11-0.59) Eosinophils # (Auto) 0.11 K/uL (0-0.5) Basophils # (Auto) 0.03 K/uL (0-0.2) RDW Standard Deviation 50.9 fL (36.4-46.3) RDW Coefficient of Variation 14.9 % (11.5-14.5) Immature Granulocyte % (Auto) 1.0 % Immature Granulocyte # (Auto) 0.18 K/uL (0.00-0.02) Anion Gap 7.0 mmol/L (3-11) Est Creatinine Clear Calc Drug Dose 35.1 ml/min Estimated GFR () 50.6 Estimated GFR (Non- 43.7 BUN/Creatinine Ratio 13.9 (10-20) Calcium Level 9.0 mg/dl (8.5-10.1) Total Bilirubin 0.3 mg/dl (0.2-1) Direct Bilirubin < 0.1 mg/dl (0-0.2) Aspartate Amino Transf (AST/SGOT) 18 U/L (15-37) Alanine Aminotransferase (ALT/SGPT) 30 U/L (12-78) Alkaline Phosphatase 88 U/L (45-117) Total Protein 7.3 gm/dl (6.4-8.2) Albumin 3.3 gm/dl (3.4-5.0) Lipase 66 U/L (73-393) Laboratory studies as stated above per my review. Medications Administered Medications (Trade) Dose Ordered Sig/Taye Route Start Time Stop Time Status Last Admin Dose Admin Sodium Chloride 1,000 ml @ 999 mls/hr Q1H1M STAT IV 10/15/17 15:36 10/15/17 16:36 DC 10/15/17 15:50 999 MLS/HR Sodium Chloride 1,000 ml @ 150 mls/hr Q6H40M ONCE IV 10/15/17 15:36 10/15/17 22:15 10/15/17 16:56 150 MLS/HR Cefepime HCl 2000 mg/Dextrose 112.5 ml @ 200 mls/hr ONE STAT IV 10/15/17 15:57 10/15/17 16:30 DC 10/15/17 16:28 200 MLS/HR Oxycodone/ Acetaminophen (Percocet 5-325mg Tab) 1 tab Q4H PRN PO 10/15/17 19:45 10/29/17 19:44 10/15/17 20:15 1 TAB ED Course 1531: Past medical records reviewed. The patient was evaluated in room A11A, and a complete history and physical examination were performed. 1536: Ordered Sodium Chloride 1000 ml @ 150 mls/hr IV, Sodium Chloride 1000 ml @ 999 mls/hr IV. 1557: Ordered Cefepime HCl 2000 mg/Dextrose 112.5 ml @ 200 mls/hr IV. 1559: The patient's IV is in place and she is agreeable to the antibiotic plan. 1723: The patient is still not feeling well. 1727: Discussed the patient's case with Dr. Angelita Arrington[place] [place] The patient will be evaluated for further management. Medical Decision Differential diagnoses include: UTI, kidney infection, kidney stone, dehydration , appendicitis. This patient comes in as described above. She was placed in room A 11. She sent here for IV antibiotics. She has a urinary tract infection that is pseudomonas. She has multiple antibiotic allergies . she has been taking outpatient cephalosporin without much relief. Her urologist sent her here. We did review her records and she was given cefepime 2 g IV as recommended by the ED pharmacy team. She's had this before without problems and based on the most recent culture should cover this. Blood work was obtained as well as urinalysis and culture and CAT scan to rule out obstructive uropathy/stone. She was hydrated with IV normal saline. She was reassessed frequently. Her urinalysis does suggest a UTI and we do a recent culture is positive. She does have an elevated white count. She did receive the cefepime. I do think she needs to be admitted for further IV antibiotics and treatment and evaluation. I have consulted the [facility] hospitalist team to see her. Medication Reconcilliation Current Medication List: was personally reviewed by me Blood Pressure Screening Patient's blood pressure: Elevated blood pressure Blood pressure disposition: Elevated BP felt to be situational Consults Time Called: 1719 Consulting Physician: Dr. Angelita Izaguirre Returned Call: [phone] Discussed the patient's case with Dr. Angelita Izaguirre. The patient will be evaluated for further management. Impression Primary Impression: Urinary tract infection Additional Impression: Pyelonephritis Scribe Attestation The scribe's documentation has been prepared under my direction and personally reviewed by me in its entirety. I confirm that the note above accurately reflects all work, treatment, procedures, and medical decision making performed by me. Departure Information Dispostion Being Evaluated By Hospitalist Referrals Basil Oliveira D.O. (PCP) Patient Instructions [facility] Problem Qualifiers
[2017-10-15] MEDS ORDERED: CEFEPIME IV 2,000 MG in DEXTROSE 5% 100ML 100 ML IV STA (15:57)
[2017-10-15 16:18] LABS: BASO % 0.2 %; BASO ABS # 0.03 K/uL (0-0.2); EOS % 0.6 %; EOS ABS # 0.11 K/uL (0-0.5); HEMATOCRIT 37.6 % (37-47); HEMOGLOBIN 11.7 g/dL (12.0-16.0); IG# 0.18 K/uL (0.00-0.02); LYMPH % 8.3 %; LYMPH ABS # 1.51 K/uL (1.2-3.4); MEAN CELL VOLUME 93.8 fL (80-100); MEAN CORPUSCULAR HEMOGLOBIN 29.2 pg (25-34); MEAN CORPUSCULAR HGB CONC 31.1 g/dl (32-36); MEAN PLATELET VOLUME 9.7 fL (7.4-10.4); MONO % 4.5 %; MONO ABS # 0.81 K/uL (0.11-0.59); NEUT % 85.4 %; NEUT ABS # 15.55 K/uL (1.4-6.5); PLATELET COUNT 300 K/uL (130-400); RED CELL DISTRIBUTION WIDTH CV 14.9 % (11.5-14.5); RED CELL DISTRIBUTION WIDTH SD 50.9 fL (36.4-46.3); WHITE BLOOD COUNT 18.19 K/uL (4.8-10.8)
[2017-10-15 16:37] LABS: ALBUMIN 3.3 gm/dl (3.4-5.0); AST/SGOT 18 U/L (15-37); BLOOD UREA NITROGEN 16 mg/dl (7-18); CARBON DIOXIDE 32 mmol/L (21-32); CREATININE 1.15 mg/dl (0.60-1.20); GLUCOSE 153 mg/dl (70-99); LIPASE 66 U/L (73-393); POTASSIUM 3.6 mmol/L (3.5-5.1); SODIUM 136 mmol/L (136-145)
[2017-10-15] MEDS ORDERED: ASCO500T16 PO (16:48)
[2017-10-15] MEDS ORDERED: CHOL2000 PO (16:48)
[2017-10-15] MEDS ORDERED: CRAN1TAB4 PO (16:48)
[2017-10-15 16:54] LABS: ALKALINE PHOSPHATASE 88 U/L (45-117); ALT/SGPT 30 U/L (12-78); TOTAL PROTEIN 7.3 gm/dl (6.4-8.2)
[2017-10-15] MEDS ORDERED: B-CO1CAP3 PO (16:56)
--- NOTE | 2017-10-15 16:57 | DIAGNOSTIC IMAGING REPORT ---
CT OF THE ABDOMEN AND PELVIS WITHOUT CONTRAST, STONE PROTOCOL CLINICAL HISTORY: Right flank pain. Urinary tract infection. COMPARISON STUDY: CT of the abdomen and pelvis September 07, 2017. TECHNIQUE: Helical axial images of the abdomen and pelvis were obtained without IV or oral contrast according to renal stone protocol. A dose lowering technique was utilized adhering to the principles of ALARA. FINDINGS: Mild cardiomegaly is noted. Mild biliary ductal dilatation is unchanged and likely related to prior cholecystectomy. There is no peripancreatic infiltration. Unenhanced images of the spleen and adrenal glands are unremarkable. There are multiple bilateral renal calculi. There is no hydronephrosis. No ureteral calculi are identified although sensitivity for detection of small distal ureteral nonobstructing calculus diminished due to streak artifact from bilateral hip arthroplasties. A few descending colostomy is noted. There is no evidence for a bowel obstruction. There is colonic diverticulosis without evidence for acute diverticulitis. There is no pelvic or abdominal lymphadenopathy. The appendix is normal. No suspicious osseous lesions are identified. A small umbilical hernia is noted. IMPRESSION: 1. Bilateral nephrolithiasis. No hydronephrosis. No ureteral calculi identified although sensitivity for detection of small nonobstructing distal ureteral calculi is diminished by streak artifact from bilateral hip arthroplasties. 2. No bowel obstruction. Normal appendix. Electronically signed by: Anjel Encarnacion M.D. 10/15/2017 4:56 PM Dictated Date/Time: 10/15/2017 4:22 PM
--- NOTE | 2017-10-15 19:41 | History and Physical ---
History & Physical Date & Time of Service: Oct 15, 2017 at 19:26 Chief Complaint: Uti - Sent By Dr Coronel For Iv Primary Care Physician: Basil Coronel D.O. History of Present Illness Source: patient, family 86-year-old female with past medical history of T2DM- diet controlled, Rheumatoid arthritis, Lupus, OA and recurrent urinary tract infection. Patient has multiple admissions to the hospital with urinary tract infection. Last admission she was referred to a urologist. 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 She had a Best placed then which was removed 2 weeks later with no problems. About a week ago patient started having again severe dysuria. Diaphoresis, chills, abdominal pain and generalized fatigue. Urine culture obtained on October 13 grew pansensitive pseudomonas but unfortunately patient has allergy to quinolones and Cipro. Patient was treated with Keflex for a week with no improvement. As she is growing Pseudomonas. Patient came to the ED for IV cefepime. Patient reported to have severe allergy with hives if she takes Cipro. Past Medical/Surgical History Medical Problems: (1) Arthritis Status: Chronic (2) Asthma Status: Chronic (3) Cholecystectomy Status: Resolved (4) Chronic back pain Status: Chronic (5) Depression Status: Chronic (6) Diverticulitis Status: Chronic (7) Gastroesophageal reflux disease Status: Chronic (8) Hyperlipidemia Status: Chronic (9) Hypothyroidism Status: Chronic (10) IBS Status: Chronic (11) Impacted cerumen Status: Chronic (12) Lupus Status: Chronic (13) Osteoarthritis Status: Chronic (14) Pituitary adenoma Status: Chronic (15) pituitary gland removal Status: Chronic (16) TIA Status: Chronic (17) Vasovagal syncope Status: Chronic Surgical Problems: (1) H/O: hysterectomy Status: Chronic (2) History of hip replacement Status: Chronic (3) Hx of cholecystectomy Status: Chronic Family History Cancer Diabetes mellitus Gallbladder disease Heart disease Hypertension Kidney disease Kidney stones Seizures Social History Smoking Status: Never Smoker Drug Use: none Marital Status: Housing status: lives alone Occupational Status: retired Immunizations History of Influenza Vaccine: N/A Influenza Vaccine Date: Jul 24, 2007 History of Tetanus Vaccine?: UTD History of Pneumococcal: Yes Pneumococcal Date: May 09, 1990 History of Hepatitis B Vaccine: Yes Hepatitis Immunization Date: May 09, 1985 Multi-Drug Resistant Organisms History of MDRO: No Allergies Coded Allergies: Ciprofloxacin (Verified Allergy, Intermediate, HIVES, 10/15/17) Quinolones (Verified Allergy, Intermediate, HIVES, 10/15/17) Fluticasone (Verified Allergy, Unknown, ADVAIR-UNKNOWN, 10/15/17) Lactose Intolerance (Verified Allergy, Unknown, GI UPSET, 10/15/17) Latex1 -Allergic Contact Dermititis (Verified Allergy, Unknown, RASH, ) Morphine (Verified Allergy, Unknown, NAUSEA AND VOMITING, 10/15/17) Nitrofurantoin (Verified Allergy, Unknown, HIVES, 10/15/17) Salmeterol (Verified Allergy, Unknown, ADVAIR, 10/15/17) Scallop (Verified Allergy, Unknown, THROAT SWELLS, 10/15/17) Celecoxib (Verified Adverse Reaction, Unknown, barretts esophagus, 10/15/17) Home Medications Scheduled Ascorbic Acid (Ascorbic Acid), 500 MG PO DAILY Aspirin (Aspirin Ec), 81 MG PO QAM B-Complex Vitamins (B Complex), 1 CAP PO DAILY Cefdinir (Omnicef), 300 MG PO Q12H Cholecalciferol (Vitamin D3), 1 CAP PO DAILY Cranberry (Vaccinium Macrocarp (Cranberry), 1 TAB PO NOON Dexlansoprazole (Dexilant), 60 MG PO BID Diltiazem Hcl Ext Rel (Tiazac), 120 MG PO NOON Duloxetine Hcl (Cymbalta), 60 MG PO QAM Duloxetine Hcl (Cymbalta), 30 MG PO QAM Furosemide (Lasix), 40 MG PO QAM Gabapentin (Neurontin), 300 MG PO TID Home O2 Therapy (Oxygen), 3 LITERS NA PRN Hydroxychloroquine Sulfate (Plaquenil), 200 MG PO BID Levothyroxine Sodium (Synthroid), 88 MCG PO DAILY Omeprazole (Prilosec), 20 MG PO BID Oxycodone HCl (Oxycontin), 10 MG PO BID Polyethylene Glycol 3350 (Miralax), 17 GM PO BID Prednisone Tab (Prednisone), 12.5 MG PO QAM Quetiapine Fumarate (Seroquel), 100 MG PO HS [Voltaren Gel], 1 DOSE TOP PRN Scheduled PRN Ondansetron Odt (Zofran Odt), 8 MG SL Q6H PRN for Nausea Review of Systems Constitutional: + chills, + weakness, + fatigue, No fever, No sweats, No weight loss, No problem reported Eyes: No worsening of vision, No eye pain, No redness, No discharge, No diplopia, No problem reported ENT: No hearing loss, No unusual epistaxis, No nasal symptoms, No sore throat, No tinnitus, No dental problems, No trouble swallowing, No problem reported Respiratory: No cough, No sputum, No wheezing, No shortness of breath, No dyspnea on exertion, No dyspnea at rest, No hemoptysis, No problem reported Cardiovascular: No chest pain, No orthopnea, No PND, No edema, No claudication , No palpitations, No problem reported Abdomen: + pain, No nausea, No vomiting, No diarrhea, No constipation, No GI bleeding, No problem reported Musculoskeletal: No joint pain, No muscle pain, No swelling, No calf pain, No problem reported Genitourinary - Female: + dysuria, + urinary frequency, + urinary urgency, No urinary incontinence, No urinary retention, No hematuria, No dysmenorrhea, No menorrhagia, No metrorrhagia, No rash, No vaginal bleeding, No vaginal discharge , No vaginal itching, No vulvodynia, No , No problem reported Neurologic: No memory loss, No paralysis, No weakness, No numbness/tingling, No vertigo, No balance problems, No problem reported Psychiatric: No depression symptoms, No anhedonism, No anxiety, No insomnia, No substance abuse, No problem reported Endocrine: No fatigue, No excessive thirst, No excessive urination, No problem reported Hematologic / Lymphatic: No abnormal bleeding/bruising, No clotting problems, No swollen lymph nodes, No night sweats, No problem reported Integumentary: No rash, No itch, No new/changing skin lesions, No color change , No bleeding, No problem reported Physical Exam Vital Signs Date Time Temp Pulse Resp B/P (MAP) Pulse Ox O2 Delivery O2 Flow Rate FiO2 10/15/17 18:27 104 20 117/73 91 Room Air 10/15/17 16:35 108 20 147/73 95 Room Air 10/15/17 14:01 36.6 109 18 111/59 92 Room Air General Appearance: + mild distress, + obese Head: normocephalic, atraumatic Eyes: normal inspection, EOMI ENT: normal ENT inspection, hearing grossly normal Neck: supple Respiratory/Chest: chest non-tender, lungs clear, normal breath sounds, no respiratory distress, no accessory muscle use Cardiovascular: regular rate, rhythm, no edema, no gallop, no JVD, no murmur, normal peripheral pulses Abdomen/GI: normal bowel sounds, no organomegaly, no pulsatile mass, + tenderness Back: normal inspection Extremities/Musculoskelatal: normal inspection, no calf tenderness, normal capillary refill, no pedal edema Neurologic/Psych: lodging manager II-XII nml as tested, no motor/sensory deficits, alert, normal mood/affect, normal reflexes, oriented x 3 Skin: normal color, warm/dry, no rash Diagnostics Laboratory Results Results Past 24 Hours Test 10/15/17 15:00 10/15/17 15:50 Range/Units Urine Color DK YELLOW Urine Appearance TURBID CLEAR Urine pH 6.5 4.5-7.5 Urine Specific [place] 1.013 1.000-1.030 Urine Protein NEG NEG Urine Glucose (UA) NEG NEG Urine Ketones NEG NEG Urine Occult Blood 1+ NEG Urine Nitrite POS NEG Urine Bilirubin NEG NEG Urine Urobilinogen NEG NEG Urine Leukocyte Esterase LARGE NEG Urine WBC (Auto) >30 0-5 /hpf Urine RBC (Auto) 0-4 0-4 /hpf Urine Hyaline Casts (Auto) 0 0-5 /lpf Urine Epithelial Cells (Auto) 5-10 0-5 /lpf Urine Bacteria (Auto) 1+ NEG White Blood Count 18.19 4.8-10.8 K/uL Red Blood Count 4.01 4.2-5.4 M/uL Hemoglobin 11.7 12.0-16.0 g/dL Hematocrit 37.6 37-47 % Mean Corpuscular Volume 93.8 80-100 fL Mean Corpuscular Hemoglobin 29.2 25-34 pg Mean Corpuscular Hemoglobin Concent 31.1 32-36 g/dl Platelet Count 300 130-400 K/uL Mean Platelet Volume 9.7 7.4-10.4 fL Neutrophils (%) (Auto) 85.4 % Lymphocytes (%) (Auto) 8.3 % Monocytes (%) (Auto) 4.5 % Eosinophils (%) (Auto) 0.6 % Basophils (%) (Auto) 0.2 % Neutrophils # (Auto) 15.55 1.4-6.5 K/uL Lymphocytes # (Auto) 1.51 1.2-3.4 K/uL Monocytes # (Auto) 0.81 0.11-0.59 K/uL Eosinophils # (Auto) 0.11 0-0.5 K/uL Basophils # (Auto) 0.03 0-0.2 K/uL RDW Standard Deviation 50.9 36.4-46.3 fL RDW Coefficient of Variation 14.9 11.5-14.5 % Immature Granulocyte % (Auto) 1.0 % Immature Granulocyte # (Auto) 0.18 0.00-0.02 K/uL Sodium Level 136 136-145 mmol/L Potassium Level 3.6 3.5-5.1 mmol/L Chloride Level 97 98-107 mmol/L Carbon Dioxide Level 32 21-32 mmol/L Anion Gap 7.0 3-11 mmol/L Blood Urea Nitrogen 16 7-18 mg/dl Creatinine 1.15 0.60-1.20 mg/dl Est Creatinine Clear Calc Drug Dose 35.1 ml/min Estimated GFR () 50.6 Estimated GFR (Non- 43.7 BUN/Creatinine Ratio 13.9 10-20 Random Glucose 153 70-99 mg/dl Calcium Level 9.0 8.5-10.1 mg/dl Total Bilirubin 0.3 0.2-1 mg/dl Direct Bilirubin < 0.1 0-0.2 mg/dl Aspartate Amino Transf (AST/SGOT) 18 15-37 U/L Alanine Aminotransferase (ALT/SGPT) 30 12-78 U/L Alkaline Phosphatase 88 45-117 U/L Total Protein 7.3 6.4-8.2 gm/dl Albumin 3.3 3.4-5.0 gm/dl Lipase 66 73-393 U/L Microbiology Results 10/15/17 Blood Culture, Received Pending 10/15/17 Blood Culture, Received Pending 10/15/17 Urine Culture, Received Pending Impression Assessment and Plan 86 year old female with past medical history of diabetes mellitus, lupus, rheumatoid arthritis and severe osteoarthritis, presented with recurrent complicated UTI Assessment Severe sepsis present on admission secondary to below Complicated UTI/pseudomonas aeruginosa present on admission Bilateral nephrolithiasis without obstructive uropathy T2DM Rheumatoid arthritis Lupus OA GERD Depression Plan Obtain blood culture and urine culture Cefepime IV, consider a PICC line as patient can continue her regimen at home. Consider chronic suppression with fosfomycin Pyridium 200 mg TID Continue vitamin C and cranberry tablets BSG ACHS and ISS while inpatient Pain management Continue prednisone and Plaquenil Continue Duloxetine and Quetiapine Protonix 40 mg daily Lactobacillus for C. difficile prophylaxis DVT prophylaxis: Lovenox SQ daily
[2017-10-15] MEDS ORDERED: DICLOFENAC SOD 1% GEL 100 GM TUBE EXT PRN (19:45)
[2017-10-15] MEDS ORDERED: NON-FORMULARY MEDICATION (Cranberry (Vaccinium Macrocarp (Cranberry) 1 TAB) PO SCH (19:45)
[2017-10-15] MEDS ORDERED: CEFEPIME IV 2,000 MG in DEXTROSE 5% 100ML 100 ML IV SCH (19:45)
[2017-10-15] MEDS ORDERED: ONDANSETRON 8MG OD TAB SL PRN (19:45)
[2017-10-15] MEDS ORDERED: GLUCOSE 10 TABS/TUBE PO PRN (20:00)
[2017-10-15] MEDS ORDERED: ALUMINUM/MAGNESIUM/SIMETH (MAALOX MAX) 30 ML UDC PO PRN (20:00)
[2017-10-15] MEDS ORDERED: GLUCOSE 40% GEL 15 GM TUBE PO PRN (20:00)
[2017-10-15] MEDS ORDERED: GLUCAGON FOR INJ 1 MG VIAL SQ PRN (20:00)
[2017-10-15] MEDS ORDERED: POLYETHYLENE (MIRALAX) 17 GM PACK PO PRN (20:00)
[2017-10-15] MEDS ORDERED: ZOLPIDEM TARTRATE 5 MG TAB PO PRN (20:00)
[2017-10-15] MEDS ORDERED: MAGNESIUM HYDROXIDE SUSP 30 ML UDC PO PRN (20:00)
[2017-10-15] MEDS ORDERED: ONDANSETRON INJ 2 MG/ML 2 ML VIAL IV PRN (20:00)
[2017-10-15] MEDS ORDERED: DEXTROSE 50% 50 ML SYR IV PRN (20:00)
[2017-10-15] MEDS ORDERED: ACETAMINOPHEN 325 MG TAB PO PRN (20:00)
[2017-10-15] MEDS: OXYCODONE/ACETAMINOPHEN 5-325 TAB PO PRN (20:15)
[2017-10-15] MEDS: INSULIN ASPART 100 UNITS/ML 3 ML PEN SC SCH (21:00)
[2017-10-15 21:34] VITALS: BP 119/64; PULSE 103; TEMP 37; O2SAT 94
[2017-10-15 21:42] VITALS: BP 119/64; PULSE 103; TEMP 37; Ht 160 cm; Wt 74.0 kg
[2017-10-15] MEDS ORDERED: CEFEPIME CONSULT ACTIVE PRN (22:15)
[2017-10-15] MEDS: OXYCODONE HCL 10 MG TABCR (OXYCONTIN) PO SCH (22:28)
[2017-10-15] MEDS: GABAPENTIN 300 MG CAP PO SCH (22:29)
[2017-10-15] MEDS: HYDROXYCHLOROQUINE SULFATE 200 MG TAB PO SCH (22:29)
[2017-10-15] MEDS: POLYETHYLENE (MIRALAX) 17 GM PACK PO SCH (22:29)
[2017-10-15] MEDS: QUETIAPINE FUMARATE 100 MG TAB PO SCH (22:29)
[2017-10-15] MEDS: PANTOprazole SOD 40 MG TAB PO SCH (22:30)
[2017-10-16] MEDS: ENOXAPARIN 40 MG/0.4 ML SYR SQ SCH ×2 (00:12→20:20)
[2017-10-16 00:15] VITALS: BP 137/76; PULSE 100; TEMP 37.2; O2SAT 96
[2017-10-16] MEDS: LEVOTHYROXINE 88 MCG TAB PO SCH (05:54)
[2017-10-16 06:33] LABS: BASO % 0.3 %; BASO ABS # 0.03 K/uL (0-0.2); EOS % 2.7 %; HEMOGLOBIN 10.5 g/dL (12.0-16.0); IG# 0.14 K/uL (0.00-0.02); LYMPH ABS # 2.03 K/uL (1.2-3.4); MEAN CELL VOLUME 94.4 fL (80-100); MEAN CORPUSCULAR HEMOGLOBIN 29.2 pg (25-34); MEAN CORPUSCULAR HGB CONC 30.9 g/dl (32-36); MEAN PLATELET VOLUME 9.3 fL (7.4-10.4); MONO % 10.3 %; MONO ABS # 1.16 K/uL (0.11-0.59); NEUT % 67.5 %; NEUT ABS # 7.63 K/uL (1.4-6.5); PLATELET COUNT 257 K/uL (130-400); RED CELL DISTRIBUTION WIDTH CV 15.1 % (11.5-14.5); RED CELL DISTRIBUTION WIDTH SD 52.1 fL (36.4-46.3); WHITE BLOOD COUNT 11.29 K/uL (4.8-10.8)
--- NOTE | 2017-10-16 06:35 | DIAGNOSTIC IMAGING REPORT ---
CT HEAD WITHOUT CONTRAST (CT) CLINICAL HISTORY: Diplopia COMPARISON STUDY: 05/17/2017 TECHNIQUE: Axial CT of the brain is performed from the vertex to the skull base. IV contrast was not administered for this examination. A dose lowering technique was utilized adhering to the principles of ALARA. CT DOSE: 537.48 mGy.cm FINDINGS: No intra or extra-axial mass lesions are visualized. There is no CT evidence of acute cortical infarction. There is no evidence of midline shift. There is no acute hemorrhage. No calvarial fractures are visualized. There are patchy white matter hypodensities likely on a small vessel basis. There is no evidence of pathologic ventricular dilatation. There is no evidence of acute sinusitis IMPRESSION: No acute intracranial findings Electronically signed by: Fredy Boyd M.D. 10/16/2017 6:34 AM Dictated Date/Time: 10/16/2017 6:33 AM
[2017-10-16 07:00] LABS: CREATININE 0.89 mg/dl (0.60-1.20)
[2017-10-16 07:01] LABS: ALBUMIN 2.6 gm/dl (3.4-5.0); CALCIUM 8.5 mg/dl (8.5-10.1); POTASSIUM 3.3 mmol/L (3.5-5.1)
[2017-10-16 07:11] LABS: HEMOGLOBIN A1C 6.4 % (4.5-5.6)
[2017-10-16 07:18] LABS: TOTAL PROTEIN 5.9 gm/dl (6.4-8.2)
[2017-10-16 07:57] VITALS: BP 117/73; PULSE 93; TEMP 36.5; O2SAT 93
[2017-10-16] MEDS: INSULIN ASPART 100 UNITS/ML 3 ML PEN SC SCH ×4 (08:01→20:51)
[2017-10-16] MEDS: VITAMIN B COMPLEX TAB PO SCH (08:04)
[2017-10-16] MEDS: DULOXETINE (CYMBALTA) 30 MG CAP PO SCH (08:04)
[2017-10-16] MEDS: GABAPENTIN 300 MG CAP PO SCH ×3 (08:04→20:48)
[2017-10-16] MEDS: DILTIAZEM HCL 120 MG EXT REL CAP PO SCH (08:05)
[2017-10-16] MEDS: HYDROXYCHLOROQUINE SULFATE 200 MG TAB PO SCH ×2 (08:05→20:48)
[2017-10-16] MEDS: DULOXETINE HCL 60 MG CAP PO SCH (08:05)
[2017-10-16] MEDS: FUROSEMIDE 40 MG TAB PO SCH (08:06)
[2017-10-16] MEDS: ASPIRIN 81 MG ECTAB PO SCH (08:06)
[2017-10-16] MEDS: PANTOprazole SOD 40 MG TAB PO SCH ×2 (08:07→20:49)
[2017-10-16] MEDS: ASCORBIC ACID 500 MG TAB PO SCH (08:07)
[2017-10-16 08:15] VITALS: O2SAT 93
[2017-10-16] MEDS: POLYETHYLENE (MIRALAX) 17 GM PACK PO SCH ×2 (08:18→20:52)
[2017-10-16] MEDS: OXYCODONE HCL 10 MG TABCR (OXYCONTIN) PO SCH ×2 (08:18→20:48)
[2017-10-16] MEDS ORDERED: POTASSIUM CHLORIDE 10 MEQ TABCR PO ONE (08:30)
[2017-10-16] MEDS: LACTOBACILLUS ACIDOPHILUS (FLORANEX) TAB PO SCH ×3 (08:33→16:52)
--- NOTE | 2017-10-16 10:59 | Hospitalist Progress Note ---
Hospitalist Progress Note Date of Service Oct 16, 2017. Subjective Pt evaluation today including: conversation w/ patient, physical exam, chart review, lab review, review of inpatient medication list Voiding: no voiding problems Ms. Neal reports feeling much better this morning, she no longer has burning with urination. She continues to have right lower quadrant tenderness and is a bit nauseas without an appetite, no emesis. ROS Constitutional: no chills, aches, sweats or fever Respiratory: no sob,cough, sputum, or wheezing Cardiac: no chest pain, palpitations, edema, orthopnea or lightheadedness GI: see HPI : no dysuria or hesitancy Extremities: no joint pain or weakness Skin: no rash All other systems reviewed and negative Medications Medications Administered Medications (Trade) Dose Ordered Sig/Taye Route Start Time Stop Time Status Last Admin Dose Admin Sodium Chloride 1,000 ml @ 999 mls/hr Q1H1M STAT IV 10/15/17 15:36 10/15/17 16:36 DC 10/15/17 15:50 999 MLS/HR Sodium Chloride 1,000 ml @ 150 mls/hr Q6H40M ONCE IV 10/15/17 15:36 10/15/17 22:15 DC 10/15/17 16:56 150 MLS/HR Cefepime HCl 2000 mg/Dextrose 112.5 ml @ 200 mls/hr ONE STAT IV 10/15/17 15:57 10/15/17 16:30 DC 10/15/17 16:28 200 MLS/HR Ascorbic Acid (Vitamin C Tab) 500 mg DAILY PO 10/16/17 09:00 11/15/17 08:59 10/16/17 08:07 500 MG Aspirin (Ecotrin Tab) 81 mg QAM PO 10/16/17 09:00 11/15/17 08:59 10/16/17 08:06 81 MG Vitamin B Complex (Vitamin B Complex) 1 tab DAILY PO 10/16/17 09:00 11/15/17 08:59 10/16/17 08:04 1 TAB Diltiazem HCl (TIAzac CAP) 120 mg DAILY PO 10/16/17 09:00 11/15/17 08:59 10/16/17 08:05 120 MG Duloxetine HCl (Cymbalta Cap) 30 mg QAM PO 10/16/17 09:00 11/15/17 08:59 10/16/17 08:04 30 MG Duloxetine HCl (Cymbalta Cap) 60 mg QAM PO 10/16/17 09:00 11/15/17 08:59 10/16/17 08:05 60 MG Furosemide (Lasix Tab) 40 mg QAM PO 10/16/17 09:00 11/15/17 08:59 10/16/17 08:06 40 MG Gabapentin (Neurontin Cap) 300 mg TID PO 10/15/17 21:00 11/14/17 20:59 10/16/17 08:04 300 MG Hydroxychloroquine Sulfate (Plaquenil Tab) 200 mg BID PO 10/15/17 21:00 11/14/17 20:59 10/16/17 08:05 200 MG Levothyroxine Sodium (Synthroid Tab) 88 mcg DAILYBB PO 10/16/17 06:30 11/15/17 06:59 10/16/17 05:54 88 MCG Oxycodone HCl (Oxycontin Tab) 10 mg BID PO 10/15/17 22:00 10/29/17 21:59 10/16/17 08:18 10 MG Prednisone (PredniSONE TAB) 12.5 mg QAM PO 10/16/17 09:00 11/15/17 08:59 10/16/17 08:07 12.5 MG Quetiapine Fumarate (seroQUEL TAB) 100 mg HS PO 10/15/17 21:00 11/14/17 20:59 10/15/17 22:29 100 MG Pantoprazole Sodium (Protonix Tab) 40 mg BID PO 10/15/17 21:00 11/14/17 20:59 10/16/17 08:07 40 MG Polyethylene (Miralax Powder Packet) 17 gm BID PO 10/15/17 21:00 11/14/17 20:59 10/15/17 22:29 17 GM Lactobacillus Acidophilus (Floranex Tab) 4 tab TIDM PO 10/16/17 08:00 11/15/17 07:59 10/16/17 08:33 4 TAB Oxycodone/ Acetaminophen (Percocet 5-325mg Tab) 1 tab Q4H PRN PO 10/15/17 19:45 10/29/17 19:44 10/15/17 20:15 1 TAB Enoxaparin Sodium (Lovenox Inj) 40 mg DAILY@1999 SQ 10/15/17 22:30 11/14/17 22:29 10/16/17 00:12 40 MG Potassium Chloride (Klor-Con M10) 40 meq NOW ONCE PO 10/16/17 08:30 10/16/17 08:31 DC 10/16/17 08:32 40 MEQ Objective Vital Signs Date Time Temp Pulse Resp B/P (MAP) Pulse Ox O2 Delivery O2 Flow Rate FiO2 10/16/17 08:15 93 Room Air 10/16/17 07:57 36.5 93 18 117/73 (88) 93 Room Air 10/16/17 00:15 37.2 100 20 137/76 (96) 96 Room Air 10/15/17 21:42 37.0 103 18 119/64 Room Air 10/15/17 21:34 37.0 103 18 119/64 (82) 94 Room Air 10/15/17 20:09 102 20 140/63 95 Room Air 10/15/17 18:27 104 20 117/73 91 Room Air 10/15/17 16:35 108 20 147/73 95 Room Air 10/15/17 14:01 36.6 109 18 111/59 92 Room Air Physical Exam Notes: General: no distress Eyes: normal inspection, PERLL Respiratory: chest non tender, clear to auscultation, normal breath sounds, no respiratory distress, no accessory muscle use Cardiac: regular rate and rhythm, no rub or gallop, no murmur, no edema, no jvd GI/: active bowel sounds, tender to palpation right lower quadrant, soft, non distended Extremities: normal range of motion, normal strength, non tender Neuro/Psych: alert and oriented x 3, normal mood and affect Skin: normal color, dry Laboratory Results Last 24 Hours Test 10/15/17 15:00 10/15/17 15:50 10/15/17 20:54 10/16/17 06:11 Urine Color DK YELLOW Urine Appearance TURBID Urine pH 6.5 Urine Specific [place] 1.013 Urine Protein NEG Urine Glucose (UA) NEG Urine Ketones NEG Urine Occult Blood 1+ Urine Nitrite POS Urine Bilirubin NEG Urine Urobilinogen NEG Urine Leukocyte Esterase LARGE Urine WBC (Auto) >30 /hpf Urine RBC (Auto) 0-4 /hpf Urine Hyaline Casts (Auto) 0 /lpf Urine Epithelial Cells (Auto) 5-10 /lpf Urine Bacteria (Auto) 1+ White Blood Count 18.19 K/uL 11.29 K/uL Red Blood Count 4.01 M/uL 3.60 M/uL Hemoglobin 11.7 g/dL 10.5 g/dL Hematocrit 37.6 % 34.0 % Mean Corpuscular Volume 93.8 fL 94.4 fL Mean Corpuscular Hemoglobin 29.2 pg 29.2 pg Mean Corpuscular Hemoglobin Concent 31.1 g/dl 30.9 g/dl Platelet Count 300 K/uL 257 K/uL Mean Platelet Volume 9.7 fL 9.3 fL Neutrophils (%) (Auto) 85.4 % 67.5 % Lymphocytes (%) (Auto) 8.3 % 18.0 % Monocytes (%) (Auto) 4.5 % 10.3 % Eosinophils (%) (Auto) 0.6 % 2.7 % Basophils (%) (Auto) 0.2 % 0.3 % Neutrophils # (Auto) 15.55 K/uL 7.63 K/uL Lymphocytes # (Auto) 1.51 K/uL 2.03 K/uL Monocytes # (Auto) 0.81 K/uL 1.16 K/uL Eosinophils # (Auto) 0.11 K/uL 0.30 K/uL Basophils # (Auto) 0.03 K/uL 0.03 K/uL RDW Standard Deviation 50.9 fL 52.1 fL RDW Coefficient of Variation 14.9 % 15.1 % Immature Granulocyte % (Auto) 1.0 % 1.2 % Immature Granulocyte # (Auto) 0.18 K/uL 0.14 K/uL Sodium Level 136 mmol/L 141 mmol/L Potassium Level 3.6 mmol/L 3.3 mmol/L Chloride Level 97 mmol/L 105 mmol/L Carbon Dioxide Level 32 mmol/L 30 mmol/L Anion Gap 7.0 mmol/L 6.0 mmol/L Blood Urea Nitrogen 16 mg/dl 14 mg/dl Creatinine 1.15 mg/dl 0.89 mg/dl Est Creatinine Clear Calc Drug Dose 35.1 ml/min 45.3 ml/min Estimated GFR () 50.6 69.0 Estimated GFR (Non- 43.7 59.5 BUN/Creatinine Ratio 13.9 15.8 Random Glucose 153 mg/dl 105 mg/dl Calcium Level 9.0 mg/dl 8.5 mg/dl Total Bilirubin 0.3 mg/dl 0.4 mg/dl Direct Bilirubin < 0.1 mg/dl Aspartate Amino Transf (AST/SGOT) 18 U/L 11 U/L Alanine Aminotransferase (ALT/SGPT) 30 U/L 22 U/L Alkaline Phosphatase 88 U/L 66 U/L Total Protein 7.3 gm/dl 5.9 gm/dl Albumin 3.3 gm/dl 2.6 gm/dl Lipase 66 U/L Bedside Glucose 126 mg/dl Estimated Average Glucose 137 mg/dl Hemoglobin A1c 6.4 % Magnesium Level 2.2 mg/dl Globulin 3.3 gm/dl Albumin/Globulin Ratio 0.8 Test 10/16/17 07:40 Bedside Glucose 103 mg/dl Assessment and Plan Ms. Neal is an 86 year old woman here for recurrent UTI UTI - blood cultures, urine cultures pending - last urine culture grew out pansensitive pseudomonas but she has also grown out pansensitive klebsiella in the past - failed outpatient keflex - continue IV cefepime, pyridium - consult ID for discharge regimen recommendations - wbcs decreasing - cbc am Hypokalemia - K+ 3.3 today - replaced - prp am Lupus/RA - continue plaquenil, prednisone Chronic sinusitis - patient asked for prescription for fluticasone nasal spray which she normally takes at home. DM - BSG ACHS and ISS while inpatient - bsgs stable Depression/neuropathy - continue duloxetine and quetiapine GERD Protonix 40 mg daily Lactobacillus for C. difficile prophylaxis DVT prophylaxis: Lovenox SQ daily Full code
[2017-10-16] MEDS ORDERED: FLUTICASONE PROPIONATE NA SPR 16 GM BTL ONE (11:00)
--- NOTE | 2017-10-16 12:23 | Medical Consult ---
Consultation Date of Consultation: Oct 16, 2017. Attending Physician: Stan Gutierrez D.O. Reason for Consultation: Recurrent urinary tract infection, recommendations for antibiotic after discharge History of Present Illness 86-year-old female with history of diabetes mellitus, rheumatoid arthritis and lupus, with multiple recurrent urinary tract infections requiring hospitalizations in the past, status post urologic procedure for treatment of a bladder lesion in September, requiring postprocedure Best catheter which has since been removed. Patient subsequently developed severe dysuria with lower abdominal pain and was found to have positive urine culture for Pseudomonas aeruginosa. Because of allergy to quinolones, patient was treated with cephalexin without improvement. She was therefore admitted to the hospital for IV antibiotics, and has been started on cefepime. Still complaining of severe bladder discomfort with urination. Currently afebrile, tolerating antibiotic without apparent difficulty. Has had CT the abdomen which shows bilateral nephrolithiasis without evidence of obstructing stones. Blood cultures are no growth to date. Repeat urine culture pending Past Medical/Surgical History Medical Problems: (1) Abdominal pain Status: Acute (2) Altered mental status Status: Acute (3) Anxiety Status: Acute (4) Chronic low back pain Status: Acute (5) COPD (chronic obstructive pulmonary disease) Status: Acute (6) Dehydration Status: Acute (7) Drowsiness Status: Acute (8) Failure of outpatient treatment Status: Acute (9) Fever Status: Acute (10) Inability to bear weight Status: Acute (11) Inferior pubic ramus fracture Status: Acute (12) Insomnia Status: Acute (13) Leukocytosis Status: Acute (14) Leukocytosis Status: Acute (15) Leukocytosis Status: Acute (16) Leukocytosis Status: Acute (17) Peripheral edema Status: Acute (18) Pyelonephritis Status: Acute (19) Pyelonephritis Status: Acute (20) Sepsis Status: Acute (21) Stroke-like symptoms Status: Acute (22) Suicidal ideation Status: Acute (23) Urinary frequency Status: Acute (24) UTI (urinary tract infection) Status: Acute (25) Weakness Status: Acute (26) Weakness Status: Acute (27) Weakness Status: Acute (28) Weakness Status: Acute Medical Problems: (1) Altered mental status (2) Ambulatory dysfunction (3) Arthritis (4) Asthma (5) Cholecystectomy (6) Chronic back pain (7) Complicated UTI (urinary tract infection) (8) Depression (9) Diverticulitis (10) Failure of outpatient treatment (11) Fall from ground level (12) FUO (fever of unknown origin) (13) Gastroesophageal reflux disease (14) Generalized weakness (15) Hyperlipidemia (16) Hypothyroidism (17) IBS (18) Impacted cerumen (19) Lupus (20) Major depressive disorder, recurrent episode with anxious distress (21) Osteoarthritis (22) Pituitary adenoma (23) pituitary gland removal (24) Sepsis (25) SIRS (systemic inflammatory response syndrome) (26) Slurred speech (27) TIA (28) Urinary tract infection (29) UTI (urinary tract infection) (30) Vasovagal syncope (31) Viral syndrome Surgical Problems: (1) H/O: hysterectomy (2) History of hip replacement (3) Hx of cholecystectomy Family History Cancer Diabetes mellitus Gallbladder disease Heart disease Hypertension Kidney disease Kidney stones Seizures Social History Smoking Status: Never Smoker Drug Use: none Marital Status: Housing Status: lives alone Occupation Status: retired Allergies Coded Allergies: Ciprofloxacin (Verified Allergy, Intermediate, HIVES, 10/15/17) Quinolones (Verified Allergy, Intermediate, HIVES, 10/15/17) Fluticasone (Verified Allergy, Unknown, ADVAIR-UNKNOWN, 10/15/17) Lactose Intolerance (Verified Allergy, Unknown, GI UPSET, 10/15/17) Latex1 -Allergic Contact Dermititis (Verified Allergy, Unknown, RASH, ) Morphine (Verified Allergy, Unknown, NAUSEA AND VOMITING, 10/15/17) Nitrofurantoin (Verified Allergy, Unknown, HIVES, 10/15/17) Salmeterol (Verified Allergy, Unknown, ADVAIR, 10/15/17) Scallop (Verified Allergy, Unknown, THROAT SWELLS, 10/15/17) Celecoxib (Verified Adverse Reaction, Unknown, barretts esophagus, 10/15/17) Current Inpatient Medications Current Inpatient Medications Medications (Trade) Dose Ordered Sig/Taye Route Start Time Stop Time Status Last Admin Dose Admin Ascorbic Acid (Vitamin C Tab) 500 mg DAILY PO 10/16/17 09:00 11/15/17 08:59 10/16/17 08:07 500 MG Aspirin (Ecotrin Tab) 81 mg QAM PO 10/16/17 09:00 11/15/17 08:59 10/16/17 08:06 81 MG Vitamin B Complex (Vitamin B Complex) 1 tab DAILY PO 10/16/17 09:00 11/15/17 08:59 10/16/17 08:04 1 TAB Diltiazem HCl (TIAzac CAP) 120 mg DAILY PO 10/16/17 09:00 11/15/17 08:59 10/16/17 08:05 120 MG Duloxetine HCl (Cymbalta Cap) 30 mg QAM PO 10/16/17 09:00 11/15/17 08:59 10/16/17 08:04 30 MG Duloxetine HCl (Cymbalta Cap) 60 mg QAM PO 10/16/17 09:00 11/15/17 08:59 10/16/17 08:05 60 MG Furosemide (Lasix Tab) 40 mg QAM PO 10/16/17 09:00 11/15/17 08:59 10/16/17 08:06 40 MG Gabapentin (Neurontin Cap) 300 mg TID PO 10/15/17 21:00 11/14/17 20:59 10/16/17 08:04 300 MG Hydroxychloroquine Sulfate (Plaquenil Tab) 200 mg BID PO 10/15/17 21:00 11/14/17 20:59 10/16/17 08:05 200 MG Levothyroxine Sodium (Synthroid Tab) 88 mcg DAILYBB PO 10/16/17 06:30 11/15/17 06:59 10/16/17 05:54 88 MCG Ondansetron HCl (Zofran Odt) 8 mg Q6H PRN SL 10/15/17 19:45 11/14/17 19:44 Oxycodone HCl (Oxycontin Tab) 10 mg BID PO 10/15/17 22:00 10/29/17 21:59 10/16/17 08:18 10 MG Prednisone (PredniSONE TAB) 12.5 mg QAM PO 10/16/17 09:00 11/15/17 08:59 10/16/17 08:07 12.5 MG Quetiapine Fumarate (seroQUEL TAB) 100 mg HS PO 10/15/17 21:00 11/14/17 20:59 10/15/17 22:29 100 MG Miscellaneous Information (Order Awaiting Action) 1 ea QS N/A 10/16/17 00:00 11/15/17 00:00 Pantoprazole Sodium (Protonix Tab) 40 mg BID PO 10/15/17 21:00 11/14/17 20:59 10/16/17 08:07 40 MG Polyethylene (Miralax Powder Packet) 17 gm BID PO 10/15/17 21:00 11/14/17 20:59 10/15/17 22:29 17 GM Diclofenac Sodium (Voltaren 1% Top Gel) 1 appln PRN PRN EXT 10/15/17 19:45 11/14/17 19:44 Lactobacillus Acidophilus (Floranex Tab) 4 tab TIDM PO 10/16/17 08:00 11/15/17 07:59 10/16/17 12:00 4 TAB Oxycodone/ Acetaminophen (Percocet 5-325mg Tab) 1 tab Q4H PRN PO 10/15/17 19:45 10/29/17 19:44 10/15/17 20:15 1 TAB Enoxaparin Sodium (Lovenox Inj) 40 mg DAILY@2000 SQ 10/15/17 22:30 11/14/17 22:29 10/16/17 00:12 40 MG Acetaminophen (Tylenol Tab) 650 mg Q4H PRN PO 10/15/17 20:00 11/14/17 19:59 Al Hydrox/Mg Hydrox/Simethicone (Maalox Max Susp) 15 ml Q4H PRN PO 10/15/17 20:00 11/14/17 19:59 Magnesium Hydroxide (Milk Of Magnesia Susp) 30 ml Q6H PRN PO 10/15/17 20:00 11/14/17 19:59 Polyethylene (Miralax Powder Packet) 17 gm DAILY PRN PO 10/15/17 20:00 11/14/17 19:59 Zolpidem Tartrate (Ambien Tab) 5 mg HSZ PRN PO 10/15/17 20:00 11/14/17 19:59 Ondansetron HCl (Zofran Inj) 4 mg Q6H PRN IV 10/15/17 20:00 11/14/17 19:59 Insulin Aspart (novoLOG ASPART) SLIDING SCALE If C... ACHS SC 10/15/17 21:00 11/14/17 20:59 Glucose (Glucose 40% Gel) 15-30 GRAMS 15 GRAMS... UD PRN PO 10/15/17 20:00 11/14/17 19:59 Glucose (Glucose Chew Tab) 4-8 Tablets 4 Tabl... UD PRN PO 10/15/17 20:00 11/14/17 19:59 Dextrose (Dextrose 50% 50ML Syringe) 25-50ML OF 50% DW IV FOR... UD PRN IV 10/15/17 20:00 11/14/17 19:59 Glucagon (Glucagon Inj) 1 mg UD PRN SQ 10/15/17 20:00 11/14/17 19:59 Cefepime HCl 2000 mg/Syringe 20 ml @ 5 mls/min Q24H IV 10/16/17 16:00 10/25/17 15:59 Cefepime HCl (Consult) 1 ea UD PRN N/A 10/15/17 22:15 11/14/17 22:14 Fluticasone Propionate (Flonase Nasal [place]) 1 sprays DAILY NA 10/17/17 09:00 11/16/17 08:59 Review of Systems All systems were reviewed and are negative except as per HPI Physical Exam Date Time Temp Pulse Resp B/P (MAP) Pulse Ox O2 Delivery O2 Flow Rate FiO2 10/16/17 08:15 93 Room Air 10/16/17 07:57 36.5 93 18 117/73 (88) 93 Room Air 10/16/17 00:15 37.2 100 20 137/76 (96) 96 Room Air 10/15/17 21:42 37.0 103 18 119/64 Room Air 10/15/17 21:34 37.0 103 18 119/64 (82) 94 Room Air 10/15/17 20:09 102 20 140/63 95 Room Air 10/15/17 18:27 104 20 117/73 91 Room Air 10/15/17 16:35 108 20 147/73 95 Room Air 10/15/17 14:01 36.6 109 18 111/59 92 Room Air General Appearance: WD/WN, no apparent distress Head: normocephalic, atraumatic Eyes: normal inspection, EOMI, sclerae normal ENT: normal ENT inspection, pharynx normal Neck: supple, no adenopathy, thyroid normal, trachea midline Respiratory/Chest: chest non-tender, lungs clear, normal breath sounds, no respiratory distress Cardiovascular: regular rate, rhythm, no gallop, no murmur Abdomen/GI: normal bowel sounds, soft, no organomegaly, + tenderness (Mild right lower quadrant) Back: normal inspection, no CVA tenderness Extremities/Musculoskelatal: no calf tenderness, non-tender Neurologic/Psych: alert, normal mood/affect, oriented x 3 Skin: normal color, warm/dry, no rash Lymphatic: no adenopathy Laboratory Results Date/Time Source Procedure Growth Status 10/15/17 15:53 Blood Blood Culture Pending Received 10/15/17 15:50 Blood Blood Culture Pending Received 10/15/17 15:00 Urine , Clean Catch Urine Culture Pending Received Last 24 Hours Test 10/15/17 15:00 10/15/17 15:50 10/15/17 20:54 10/16/17 06:11 Urine Color DK YELLOW Urine Appearance TURBID Urine pH 6.5 Urine Specific [place] 1.013 Urine Protein NEG Urine Glucose (UA) NEG Urine Ketones NEG Urine Occult Blood 1+ Urine Nitrite POS Urine Bilirubin NEG Urine Urobilinogen NEG Urine Leukocyte Esterase LARGE Urine WBC (Auto) >30 /hpf Urine RBC (Auto) 0-4 /hpf Urine Hyaline Casts (Auto) 0 /lpf Urine Epithelial Cells (Auto) 5-10 /lpf Urine Bacteria (Auto) 1+ White Blood Count 18.19 K/uL 11.29 K/uL Red Blood Count 4.01 M/uL 3.60 M/uL Hemoglobin 11.7 g/dL 10.5 g/dL Hematocrit 37.6 % 34.0 % Mean Corpuscular Volume 93.8 fL 94.4 fL Mean Corpuscular Hemoglobin 29.2 pg 29.2 pg Mean Corpuscular Hemoglobin Concent 31.1 g/dl 30.9 g/dl Platelet Count 300 K/uL 257 K/uL Mean Platelet Volume 9.7 fL 9.3 fL Neutrophils (%) (Auto) 85.4 % 67.5 % Lymphocytes (%) (Auto) 8.3 % 18.0 % Monocytes (%) (Auto) 4.5 % 10.3 % Eosinophils (%) (Auto) 0.6 % 2.7 % Basophils (%) (Auto) 0.2 % 0.3 % Neutrophils # (Auto) 15.55 K/uL 7.63 K/uL Lymphocytes # (Auto) 1.51 K/uL 2.03 K/uL Monocytes # (Auto) 0.81 K/uL 1.16 K/uL Eosinophils # (Auto) 0.11 K/uL 0.30 K/uL Basophils # (Auto) 0.03 K/uL 0.03 K/uL RDW Standard Deviation 50.9 fL 52.1 fL RDW Coefficient of Variation 14.9 % 15.1 % Immature Granulocyte % (Auto) 1.0 % 1.2 % Immature Granulocyte # (Auto) 0.18 K/uL 0.14 K/uL Sodium Level 136 mmol/L 141 mmol/L Potassium Level 3.6 mmol/L 3.3 mmol/L Chloride Level 97 mmol/L 105 mmol/L Carbon Dioxide Level 32 mmol/L 30 mmol/L Anion Gap 7.0 mmol/L 6.0 mmol/L Blood Urea Nitrogen 16 mg/dl 14 mg/dl Creatinine 1.15 mg/dl 0.89 mg/dl Est Creatinine Clear Calc Drug Dose 35.1 ml/min 45.3 ml/min Estimated GFR () 50.6 69.0 Estimated GFR (Non- 43.7 59.5 BUN/Creatinine Ratio 13.9 15.8 Random Glucose 153 mg/dl 105 mg/dl Calcium Level 9.0 mg/dl 8.5 mg/dl Total Bilirubin 0.3 mg/dl 0.4 mg/dl Direct Bilirubin < 0.1 mg/dl Aspartate Amino Transf (AST/SGOT) 18 U/L 11 U/L Alanine Aminotransferase (ALT/SGPT) 30 U/L 22 U/L Alkaline Phosphatase 88 U/L 66 U/L Total Protein 7.3 gm/dl 5.9 gm/dl Albumin 3.3 gm/dl 2.6 gm/dl Lipase 66 U/L Bedside Glucose 126 mg/dl Estimated Average Glucose 137 mg/dl Hemoglobin A1c 6.4 % Magnesium Level 2.2 mg/dl Globulin 3.3 gm/dl Albumin/Globulin Ratio 0.8 Test 10/16/17 07:40 10/16/17 11:21 Bedside Glucose 103 mg/dl 139 mg/dl Patient Name: SAIRA MCGARRY Unit Number: [id number] Dictated: 10/15/17 162 Transcribed: 10/15/17 162 JA Printed Date/Time: [~ rep prt dt]/[~ rep prt tm] [~ rep ct labl] - [~ rep ct ivnm] [facility] [place] [address] Dictated: 10/15/171621 Transcribed: 10/15/17 162 JA Printed Date/Time: [~ rep prt dt]/[~ rep prt tm] [~ rep ct labl] - [~ rep ct ivnm] CT OF THE ABDOMEN AND PELVIS WITHOUT CONTRAST, STONE PROTOCOL CLINICAL HISTORY: Right flank pain. Urinary tract infection. COMPARISON STUDY: CT of the abdomen and pelvis September 07, 2017. TECHNIQUE: Helical axial images of the abdomen and pelvis were obtained without IV or oral contrast according to renal stone protocol. A dose lowering technique was utilized adhering to the principles of ALARA. FINDINGS: Mild cardiomegaly is noted. Mild biliary ductal dilatation is unchanged and likely related to prior cholecystectomy. There is no peripancreatic infiltration. Unenhanced images of the spleen and adrenal glands are unremarkable. There are multiple bilateral renal calculi. There is no hydronephrosis. No ureteral calculi are identified although sensitivity for detection of small distal ureteral nonobstructing calculus diminished due to streak artifact from bilateral hip arthroplasties. A few descending colostomy is noted. There is no evidence for a bowel obstruction. There is colonic diverticulosis without evidence for acute diverticulitis. There is no pelvic or abdominal lymphadenopathy. The appendix is normal. No suspicious osseous lesions are identified. A small umbilical hernia is noted. IMPRESSION: 1. Bilateral nephrolithiasis. No hydronephrosis. No ureteral calculi identified although sensitivity for detection of small nonobstructing distal ureteral calculi is diminished by streak artifact from bilateral hip arthroplasties. 2. No bowel obstruction. Normal appendix. Electronically signed by: Anjel Encarnacion M.D. 10/15/2017 4:56 PM Dictated Date/Time: 10/15/2017 4:22 PM The status of this report is Signed. Draft = Not yet reviewed or approved by Radiologist. Signed = Reviewed and approved by Radiologist. <AttendingPhy></AttendingPhy> <FamilyPhy>Basil Coronel D.O.</FamilyPhy> <PrimaryPhy>Basil Coronel D.O.</PrimaryPhy> <UnitNumber>[id number]</ UnitNumber> <VisitNumber>[id number]</VisitNumber> <PatientName>SAIRA MCGARRY</PatientName> <DateOfBirth>1930</DateOfBirth> <Location>[facility]</ Location> <ServiceDate>10/15/17</ServiceDate> <MNE>ESINDI</MNE> <OrderingPhy> Brandon Granados M.D.</OrderingPhy> <OrderingPhyMNE>f rep ord dr duke</ OrderingPhyMNE> <DictatingPhyMNE>f rep dict dr duke</DictatingPhyMNE> <CCListMNE> f rep ct mne</CCListMNE> <AdmittingPhyMNE>f pt admit dr duke</AdmittingPhyMNE> < AttendingPhyMNE>f pt attend dr duke</AttendingPhyMNE> <ConsultingPhyMNE>f pt consult dr duke</ConsultingPhyMNE> <FamilyPhyMNE>f pt fam dr duke</FamilyPhyMNE> <OtherPhyMNE>f pt other dr duke</OtherPhyMNE> < PrimaryPhyMNE>f pt prim care dr duke</PrimaryPhyMNE> <ReferringPhyMNE>f pt referring dr duke</ReferringPhyMNE> Assessment & Plan Patient with recurrent urinary tract infection following urologic procedure and Best catheter with culture positive for sensitive Pseudomonas aeruginosa. Given quinolone allergy, agree with the use of IV cefepime, likely in the range of 7 days. Given her multiple recurrent urinary tract infections, may want to consider trial of rotating antibiotics in hopes of suppressing infection. Will discuss with all involved. Will follow.
[2017-10-16 14:42] VITALS: BP 122/77; PULSE 93; TEMP 36.7; O2SAT 95
[2017-10-16 16:50] VITALS: BP 156/76; PULSE 102; TEMP 36.7; O2SAT 93
[2017-10-16] MEDS: CEFEPIME IV 2,000 MG in SYRINGE 7.5 ML IV SCH (16:52)
[2017-10-16] MEDS: PRAZOSIN HCL 1 MG CAP PO SCH (20:49)
[2017-10-16] MEDS: QUETIAPINE FUMARATE 100 MG TAB PO SCH (20:49)
[2017-10-17 00:02] VITALS: BP 122/69; PULSE 99; TEMP 36.6; O2SAT 94
[2017-10-17] MEDS: LEVOTHYROXINE 88 MCG TAB PO SCH (05:45)
[2017-10-17 06:16] LABS: HEMATOCRIT 34.6 % (37-47); HEMOGLOBIN 10.6 g/dL (12.0-16.0); MEAN CELL VOLUME 94.5 fL (80-100); MEAN CORPUSCULAR HGB CONC 30.6 g/dl (32-36); MEAN PLATELET VOLUME 9.4 fL (7.4-10.4); PLATELET COUNT 255 K/uL (130-400); RED CELL DISTRIBUTION WIDTH CV 15.4 % (11.5-14.5); WHITE BLOOD COUNT 12.71 K/uL (4.8-10.8)
[2017-10-17 06:54] LABS: CALCIUM 8.4 mg/dl (8.5-10.1); CREATININE 1.28 mg/dl (0.60-1.20); POTASSIUM 3.8 mmol/L (3.5-5.1)
[2017-10-17 07:21] VITALS: BP 122/70; PULSE 102; TEMP 36.5; O2SAT 91
[2017-10-17] MEDS: INSULIN ASPART 100 UNITS/ML 3 ML PEN SC SCH ×4 (07:46→20:42)
[2017-10-17] MEDS: ASCORBIC ACID 500 MG TAB PO SCH (07:47)
[2017-10-17] MEDS: FUROSEMIDE 40 MG TAB PO SCH (07:48)
[2017-10-17] MEDS: VITAMIN B COMPLEX TAB PO SCH (07:48)
[2017-10-17] MEDS: DULOXETINE HCL 60 MG CAP PO SCH (07:49)
[2017-10-17] MEDS: HYDROXYCHLOROQUINE SULFATE 200 MG TAB PO SCH ×2 (07:49→20:43)
[2017-10-17] MEDS: PANTOprazole SOD 40 MG TAB PO SCH ×2 (07:49→20:40)
[2017-10-17] MEDS: DULOXETINE (CYMBALTA) 30 MG CAP PO SCH (07:49)
[2017-10-17] MEDS: LACTOBACILLUS ACIDOPHILUS (FLORANEX) TAB PO SCH ×3 (07:49→17:46)
[2017-10-17] MEDS: ASPIRIN 81 MG ECTAB PO SCH (07:49)
[2017-10-17] MEDS: GABAPENTIN 300 MG CAP PO SCH ×3 (07:49→20:44)
[2017-10-17] MEDS: FLUTICASONE PROPIONATE NA SPR 16 GM BTL SCH (07:50)
[2017-10-17] MEDS: DILTIAZEM HCL 120 MG EXT REL CAP PO SCH (07:50)
[2017-10-17] MEDS: OXYCODONE HCL 10 MG TABCR (OXYCONTIN) PO SCH ×2 (08:01→20:40)
[2017-10-17] MEDS: POLYETHYLENE (MIRALAX) 17 GM PACK PO SCH ×2 (08:01→20:39)
--- NOTE | 2017-10-17 12:18 | Hospitalist Progress Note ---
Hospitalist Progress Note Date of Service Oct 17, 2017. (Tia Ramey .PATY) Subjective Pt evaluation today including: conversation w/ patient, physical exam, chart review, lab review, review of inpatient medication list Voiding: benitez catheter in place Ms. Neal feels better though she feel very rundown and tired. She continues to be tachycardic ROS Constitutional: no chills, aches, sweats or fever Respiratory: no sob,cough, sputum, or wheezing Cardiac: no chest pain, palpitations, edema, orthopnea or lightheadedness GI: no abdominal pain, nausea, vomiting, diarrhea or constipation : no dysuria or hesitancy Extremities: no joint pain or weakness Skin: no rash All other systems reviewed and negative (Tia Ramey CRNP) Medications Medications Administered Medications (Trade) Dose Ordered Sig/Tyae Route Start Time Stop Time Status Last Admin Dose Admin Sodium Chloride 1,000 ml @ 999 mls/hr Q1H1M STAT IV 10/15/17 15:36 10/15/17 16:36 DC 10/15/17 15:50 999 MLS/HR Sodium Chloride 1,000 ml @ 150 mls/hr Q6H40M ONCE IV 10/15/17 15:36 10/15/17 22:15 DC 10/15/17 16:56 150 MLS/HR Cefepime HCl 2000 mg/Dextrose 112.5 ml @ 200 mls/hr ONE STAT IV 10/15/17 15:57 10/15/17 16:30 DC 10/15/17 16:28 200 MLS/HR Ascorbic Acid (Vitamin C Tab) 500 mg DAILY PO 10/16/17 09:00 11/15/17 08:59 10/17/17 07:47 500 MG Aspirin (Ecotrin Tab) 81 mg QAM PO 10/16/17 09:00 11/15/17 08:59 10/17/17 07:49 81 MG Vitamin B Complex (Vitamin B Complex) 1 tab DAILY PO 10/16/17 09:00 11/15/17 08:59 10/17/17 07:48 1 TAB Diltiazem HCl (TIAzac CAP) 120 mg DAILY PO 10/16/17 09:00 11/15/17 08:59 10/17/17 07:50 120 MG Duloxetine HCl (Cymbalta Cap) 30 mg QAM PO 10/16/17 09:00 11/15/17 08:59 10/17/17 07:49 30 MG Duloxetine HCl (Cymbalta Cap) 60 mg QAM PO 10/16/17 09:00 11/15/17 08:59 10/17/17 07:49 60 MG Furosemide (Lasix Tab) 40 mg QAM PO 10/16/17 09:00 11/15/17 08:59 10/17/17 07:48 40 MG Gabapentin (Neurontin Cap) 300 mg TID PO 10/15/17 21:00 11/14/17 20:59 10/17/17 07:49 300 MG Hydroxychloroquine Sulfate (Plaquenil Tab) 200 mg BID PO 10/15/17 21:00 11/14/17 20:59 10/17/17 07:49 200 MG Levothyroxine Sodium (Synthroid Tab) 88 mcg DAILYBB PO 10/16/17 06:30 11/15/17 06:59 10/17/17 05:45 88 MCG Oxycodone HCl (Oxycontin Tab) 10 mg BID PO 10/15/17 22:00 10/29/17 21:59 10/17/17 08:01 10 MG Prednisone (PredniSONE TAB) 12.5 mg QAM PO 10/16/17 09:00 11/15/17 08:59 10/17/17 07:48 12.5 MG Quetiapine Fumarate (seroQUEL TAB) 100 mg HS PO 10/15/17 21:00 11/14/17 20:59 10/16/17 20:49 100 MG Pantoprazole Sodium (Protonix Tab) 40 mg BID PO 10/15/17 21:00 11/14/17 20:59 10/17/17 07:49 40 MG Polyethylene (Miralax Powder Packet) 17 gm BID PO 10/15/17 21:00 11/14/17 20:59 10/15/17 22:29 17 GM Lactobacillus Acidophilus (Floranex Tab) 4 tab TIDM PO 10/16/17 08:00 11/15/17 07:59 10/17/17 07:49 4 TAB Oxycodone/ Acetaminophen (Percocet 5-325mg Tab) 1 tab Q4H PRN PO 10/15/17 19:45 10/29/17 19:44 10/15/17 20:15 1 TAB Enoxaparin Sodium (Lovenox Inj) 40 mg DAILY@2000 SQ 10/15/17 22:30 11/14/17 22:29 10/16/17 20:20 40 MG Ondansetron HCl (Zofran Inj) 4 mg Q6H PRN IV 10/15/17 20:00 11/14/17 19:59 10/16/17 14:03 4 MG Insulin Aspart (novoLOG ASPART) SLIDING SCALE If C... ACHS SC 10/15/17 21:00 11/14/17 20:59 10/16/17 18:37 3 UNITS Cefepime HCl 2000 mg/Syringe 20 ml @ 5 mls/min Q24H IV 10/16/17 16:00 10/25/17 15:59 10/16/17 16:52 5 MLS/MIN Potassium Chloride (Klor-Con M10) 40 meq NOW ONCE PO 10/16/17 08:30 10/16/17 08:31 DC 10/16/17 08:32 40 MEQ Fluticasone Propionate (Flonase Nasal [place]) 1 sprays DAILY NA 10/17/17 09:00 11/16/17 08:59 10/17/17 07:50 1 SPRAYS Fluticasone Propionate (Flonase Nasal [place]) 1 sprays NOW ONCE NA 10/16/17 11:00 10/16/17 11:01 DC 10/16/17 12:00 1 SPRAYS Prazosin HCl (Prazosin) 1 mg HS PO 10/16/17 21:00 11/15/17 20:59 10/16/17 20:49 1 MG Heparin Sodium (Porcine) (Heparin 10 Unit/ ml 5 ml Flush) 5 ml STK-MED ONCE .ROUTE 10/16/17 16:50 10/16/17 16:51 DC 10/16/17 17:07 5 ML (Tia Ramey, PATY) Objective Vital Signs Date Time Temp Pulse Resp B/P (MAP) Pulse Ox O2 Delivery O2 Flow Rate FiO2 10/17/17 08:00 Room Air 10/17/17 07:21 36.5 102 18 122/70 (87) 91 Room Air 10/17/17 00:02 36.6 99 20 122/69 (86) 94 Room Air 10/16/17 23:35 Room Air 10/16/17 16:50 36.7 102 18 156/76 (102) 93 Room Air 10/16/17 15:30 Room Air 10/16/17 14:42 36.7 93 20 122/77 (92) 95 Room Air (Tia Ramey CRNP) Physical Exam Notes: General: no distress Eyes: normal inspection, PERLL Respiratory: chest non tender, clear to auscultation, normal breath sounds, no respiratory distress, no accessory muscle use Cardiac: regular rate and rhythm, no rub or gallop, no murmur, no edema, no jvd GI/: active bowel sounds, no abd pain or tenderness, soft, non distended Extremities: normal range of motion, normal strength, non tender Neuro/Psych: alert and oriented x 3, normal mood and affect Skin: normal color, dry (Tia Ramey CRNP) Laboratory Results Last 24 Hours Test 10/16/17 16:47 10/16/17 19:37 10/17/17 05:55 10/17/17 07:33 Bedside Glucose 129 mg/dl 132 mg/dl 114 mg/dl White Blood Count 12.71 K/uL Red Blood Count 3.66 M/uL Hemoglobin 10.6 g/dL Hematocrit 34.6 % Mean Corpuscular Volume 94.5 fL Mean Corpuscular Hemoglobin 29.0 pg Mean Corpuscular Hemoglobin Concent 30.6 g/dl RDW Standard Deviation 53.0 fL RDW Coefficient of Variation 15.4 % Platelet Count 255 K/uL Mean Platelet Volume 9.4 fL Sodium Level 139 mmol/L Potassium Level 3.8 mmol/L Chloride Level 103 mmol/L Carbon Dioxide Level 29 mmol/L Anion Gap 7.0 mmol/L Blood Urea Nitrogen 17 mg/dl Creatinine 1.28 mg/dl Est Creatinine Clear Calc Drug Dose 31.5 ml/min Estimated GFR () 44.5 Estimated GFR (Non- 38.4 BUN/Creatinine Ratio 13.5 Random Glucose 125 mg/dl Calcium Level 8.4 mg/dl Test 10/17/17 11:31 Bedside Glucose 165 mg/dl (Tia Ramey CRNP) Assessment and Plan Ms. Neal is an 86 year old woman here for recurrent UTI. UTI - blood cultures no growth - urine cultures pseudomonas - failed outpatient keflex - continue IV cefepime, pyridium - consult ID - will continue cefepime for total of 7 days, midline placed - wbcs 18 on admission, now 12 Hypokalemia - replaced - prp am Elevated Creatinine - creatinine 1.28 today - will recheck prp in am - hold lasix for now Lupus/RA - continue plaquenil, prednisone Chronic sinusitis - continue fluticasone nasal spray DM - BSG ACHS and ISS while inpatient - bsgs stable Depression/neuropathy - continue duloxetine and quetiapine GERD Protonix 40 mg daily Lactobacillus for C. difficile prophylaxis DVT prophylaxis: Lovenox SQ daily Full code (Tia Ramey, PATY) I agree with TRAINING COORDINATOR assessment and plan and have seen and examined pt myself Resting comfortably in bed Still some dysuria Labs and vitals reviewed Leukocytosis trending down ID consulted Mult UTIs in past, all tapia sens Agree with PICC line and cefepime for 7 days PT/OT consulted as pt states feeling weak, requesting [facility] (Stan Gutierrez D.O.)
[2017-10-17 13:40] VITALS: BP 129/70; PULSE 103; O2SAT 92
[2017-10-17 15:42] VITALS: BP 106/56; PULSE 90; TEMP 36.9; O2SAT 91
[2017-10-17] MEDS: CEFEPIME IV 2,000 MG in SYRINGE 7.5 ML IV SCH (16:21)
[2017-10-17] MEDS: ENOXAPARIN 40 MG/0.4 ML SYR SQ SCH (20:39)
[2017-10-17] MEDS: PRAZOSIN HCL 1 MG CAP PO SCH (20:43)
[2017-10-17] MEDS: QUETIAPINE FUMARATE 100 MG TAB PO SCH (20:43)
[2017-10-17 23:38] VITALS: BP 120/67; PULSE 20; PULSE 98; TEMP 36.2; O2SAT 92
[2017-10-18] MEDS: LEVOTHYROXINE 88 MCG TAB PO SCH (05:45)
[2017-10-18 06:37] LABS: HEMATOCRIT 32.9 % (37-47); HEMOGLOBIN 10.1 g/dL (12.0-16.0); MEAN CELL VOLUME 94.3 fL (80-100); MEAN CORPUSCULAR HEMOGLOBIN 28.9 pg (25-34); MEAN CORPUSCULAR HGB CONC 30.7 g/dl (32-36); MEAN PLATELET VOLUME 9.4 fL (7.4-10.4); PLATELET COUNT 263 K/uL (130-400); RED CELL DISTRIBUTION WIDTH CV 15.1 % (11.5-14.5); RED CELL DISTRIBUTION WIDTH SD 51.8 fL (36.4-46.3); WHITE BLOOD COUNT 10.16 K/uL (4.8-10.8)
[2017-10-18 07:14] LABS: CALCIUM 8.7 mg/dl (8.5-10.1); CREATININE 1.18 mg/dl (0.60-1.20); POTASSIUM 3.5 mmol/L (3.5-5.1)
[2017-10-18 07:54] VITALS: BP 138/77; PULSE 94; TEMP 36.4; O2SAT 91
[2017-10-18] MEDS: OXYCODONE HCL 10 MG TABCR (OXYCONTIN) PO SCH ×2 (08:31→20:49)
[2017-10-18] MEDS: ASPIRIN 81 MG ECTAB PO SCH (08:31)
[2017-10-18] MEDS: DULOXETINE HCL 60 MG CAP PO SCH (08:31)
[2017-10-18] MEDS: DULOXETINE (CYMBALTA) 30 MG CAP PO SCH (08:31)
[2017-10-18] MEDS: GABAPENTIN 300 MG CAP PO SCH ×3 (08:31→20:50)
[2017-10-18] MEDS: LACTOBACILLUS ACIDOPHILUS (FLORANEX) TAB PO SCH ×3 (08:32→17:29)
[2017-10-18] MEDS: DILTIAZEM HCL 120 MG EXT REL CAP PO SCH (08:32)
[2017-10-18] MEDS: HYDROXYCHLOROQUINE SULFATE 200 MG TAB PO SCH ×2 (08:32→20:51)
[2017-10-18] MEDS: PANTOprazole SOD 40 MG TAB PO SCH ×2 (08:33→20:51)
[2017-10-18] MEDS: VITAMIN B COMPLEX TAB PO SCH (08:33)
[2017-10-18] MEDS: FLUTICASONE PROPIONATE NA SPR 16 GM BTL SCH (08:33)
[2017-10-18] MEDS: POLYETHYLENE (MIRALAX) 17 GM PACK PO SCH ×2 (08:33→20:49)
[2017-10-18] MEDS: ASCORBIC ACID 500 MG TAB PO SCH (08:34)
[2017-10-18] MEDS: INSULIN ASPART 100 UNITS/ML 3 ML PEN SC SCH ×4 (08:44→20:52)
[2017-10-18] MEDS ORDERED: CEFE2INJ2 IV (11:49)
[2017-10-18] MEDS ORDERED: LCTX PO (11:49)
[2017-10-18] MEDS ORDERED: FLNIN (11:49)
--- NOTE | 2017-10-18 11:56 | Discharge Instructions ---
Discharge Instructions Date of Service Oct 18, 2017. Admission Reason for Admission: Complicated Uti Discharge Discharge Diagnosis / Problem: Complicated Pseudomonas UTI Discharge Goals Goal(s): Decrease discomfort, Improve function, Increase independence Activity Recommendations Activity Level: Assistance Required Therapies: Physical Therapy, Occupational Therapy . Additional Information Patient informed of condition: Yes Advance Directives: No DNR: No Level of Care: Acute Rehab Communicable Disease: No Prognosis: Stable Instructions / Follow-Up Instructions / Follow-Up Sepsis from Pansensitive Pseudomonas UTI: - Has Midline placed to LUE and will continue Cefepime 2 g IV daily and will complete a 7 day course on 10/21 - Does have recurrent UTIs and has tried suppressive treatment - would recommend close F/U with urology - follows with Dr. Coronel after D/C from [facility] - Did use Prazosin 1 mg HS during admission and this could be continued if necessary but her Lasix was on hold and would be more concern for low BPs and will not add it on D/C but could be considered in future if beneficial for urinary flow issues/BP issues Lupus/RA: - Continue Plaquenil and Prednisone therapy Diet Managed DM: - A1c 6.4 - Has required minimal insulin coverage - recommend continued diet/activity Current Hospital Diet Patient's current hospital diet: Diabetes Type 2 Diet Discharge Diet Recommended Diet: Diabetes Type 2 Diet Pending Studies Studies pending at discharge: no Laboratory Results Hemoglobin A1c Test 10/16/17 06:11 Range/Units Estimated Average Glucose 137 mg/dl Hemoglobin A1c 6.4 H 4.5-5.6 % Medical Emergencies . Who to Call and When: Medical Emergencies: If at any time you feel your situation is an emergency, please call 911 immediately. . Non-Emergent Contact Non-Emergency issues call your: Primary Care Provider Call Non-Emergent contact if: you have a fever, your pain is concerning you, you have any medication questions . . "Provider Documentation" section prepared by Payton Baez. . Core Measure Problem Core Measures: None [place] Drug Monitoring Program Search Results: patient reviewed within database, no issues identified
[2017-10-18] MEDS ORDERED: OXYSR/10 PO (11:59)
[2017-10-18 12:02] VITALS: BP 138/77; PULSE 94; TEMP 36.4; O2SAT 91
--- NOTE | 2017-10-18 12:18 | Clinical Documentation Query ---
CLINICAL DOCUMENTATION QUERY 86 yo female admitted with recurrent UTI. In your clinical opinion is this patient being managed for: ( x ) Acute kidney failure, resolved ( ) Not Agree ( ) Other explanation of clinical findings (Please Explain) ( ) Unable to determine (Please Define) ( ) Need to Discuss The medical record reflects the following clinical findings, treatment, and risk factors. Clinical Indicators: Creatinine 0.89 trending up to 1.28 Treatment: IV hydration, serial PRPs Risk Factors: Age, sepsis, UTI Please clarify and document your clinical opinion in the progress notes and discharge summary. Terms such as "probable", "suspected", "likely", "questionable", "possible", or "still to be ruled out" are acceptable. IF IN AGREEMENT, YOU MUST DOCUMENT ABOVE DIAGNOSTIC STATEMENT IN DAILY PROGRESS NOTES AND DISCHARGE SUMMARY. This document is not part of the patient's record. Thank You, Goldie Tavares RN [phone]
[2017-10-18] MEDS: OXYCODONE/ACETAMINOPHEN 5-325 TAB PO PRN (13:21)
--- NOTE | 2017-10-18 14:51 | Infectious Disease Progress Nt ---
Progress Note Date of Service Oct 18, 2017. Subjective Pt evaluation today including: conversation w/ patient, physical exam, chart review, lab review, review of studies, conversation w/ dairy consultant, review of inpatient medication list Remains somewhat weak and fatigued. No fever. Urinary complaints better. All Other Systems: Reviewed and Negative Medications Current Inpatient Medications Medications (Trade) Dose Ordered Sig/Taye Route Start Time Stop Time Status Last Admin Dose Admin Ascorbic Acid (Vitamin C Tab) 500 mg DAILY PO 10/16/17 09:00 11/15/17 08:59 10/18/17 08:34 500 MG Aspirin (Ecotrin Tab) 81 mg QAM PO 10/16/17 09:00 11/15/17 08:59 10/18/17 08:31 81 MG Vitamin B Complex (Vitamin B Complex) 1 tab DAILY PO 10/16/17 09:00 11/15/17 08:59 10/18/17 08:33 1 TAB Diltiazem HCl (TIAzac CAP) 120 mg DAILY PO 10/16/17 09:00 11/15/17 08:59 10/18/17 08:32 120 MG Duloxetine HCl (Cymbalta Cap) 30 mg QAM PO 10/16/17 09:00 11/15/17 08:59 10/18/17 08:31 30 MG Duloxetine HCl (Cymbalta Cap) 60 mg QAM PO 10/16/17 09:00 11/15/17 08:59 10/18/17 08:31 60 MG Furosemide (Lasix Tab) 40 mg QAM PO 10/16/17 09:00 11/15/17 08:59 Future Hold 10/17/17 07:48 40 MG Gabapentin (Neurontin Cap) 300 mg TID PO 10/15/17 21:00 11/14/17 20:59 10/18/17 13:21 300 MG Hydroxychloroquine Sulfate (Plaquenil Tab) 200 mg BID PO 10/15/17 21:00 11/14/17 20:59 10/18/17 08:32 200 MG Levothyroxine Sodium (Synthroid Tab) 88 mcg DAILYBB PO 10/16/17 06:30 11/15/17 06:59 10/18/17 05:45 88 MCG Ondansetron HCl (Zofran Odt) 8 mg Q6H PRN SL 10/15/17 19:45 2/4/18 19:44 Oxycodone HCl (Oxycontin Tab) 10 mg BID PO 10/15/17 22:00 10/29/17 21:59 10/18/17 08:31 10 MG Prednisone (PredniSONE TAB) 12.5 mg QAM PO 10/16/17 09:00 11/15/17 08:59 10/18/17 08:31 12.5 MG Quetiapine Fumarate (seroQUEL TAB) 100 mg HS PO 10/15/17 21:00 11/14/17 20:59 10/17/17 20:43 100 MG Miscellaneous Information (Order Awaiting Action) 1 ea QS N/A 10/16/17 00:00 11/15/17 00:00 Pantoprazole Sodium (Protonix Tab) 40 mg BID PO 10/15/17 21:00 11/14/17 20:59 10/18/17 08:33 40 MG Polyethylene (Miralax Powder Packet) 17 gm BID PO 10/15/17 21:00 11/14/17 20:59 10/18/17 08:33 17 GM Diclofenac Sodium (Voltaren 1% Top Gel) 1 appln PRN PRN EXT 10/15/17 19:45 11/14/17 19:44 Lactobacillus Acidophilus (Floranex Tab) 4 tab TIDM PO 10/16/17 08:00 11/15/17 07:59 10/18/17 12:48 4 TAB Oxycodone/ Acetaminophen (Percocet 5-325mg Tab) 1 tab Q4H PRN PO 10/15/17 19:45 10/29/17 19:44 10/18/17 13:21 1 TAB Enoxaparin Sodium (Lovenox Inj) 40 mg DAILY@2000 SQ 10/15/17 22:30 11/14/17 22:29 10/17/17 20:39 40 MG Acetaminophen (Tylenol Tab) 650 mg Q4H PRN PO 10/15/17 20:00 11/14/17 19:59 Al Hydrox/Mg Hydrox/Simethicone (Maalox Max Susp) 15 ml Q4H PRN PO 10/15/17 20:00 11/14/17 19:59 Magnesium Hydroxide (Milk Of Magnesia Susp) 30 ml Q6H PRN PO 10/15/17 20:00 11/14/17 19:59 Polyethylene (Miralax Powder Packet) 17 gm DAILY PRN PO 10/15/17 20:00 11/14/17 19:59 Zolpidem Tartrate (Ambien Tab) 5 mg HSZ PRN PO 10/15/17 20:00 11/14/17 19:59 Ondansetron HCl (Zofran Inj) 4 mg Q6H PRN IV 10/15/17 20:00 11/14/17 19:59 10/16/17 14:03 4 MG Insulin Aspart (novoLOG ASPART) SLIDING SCALE If C... ACHS SC 10/15/17 21:00 11/14/17 20:59 10/18/17 12:52 1 UNITS Glucose (Glucose 40% Gel) 15-30 GRAMS 15 GRAMS... UD PRN PO 10/15/17 20:00 11/14/17 19:59 Glucose (Glucose Chew Tab) 4-8 Tablets 4 Tabl... UD PRN PO 10/15/17 20:00 11/14/17 19:59 Dextrose (Dextrose 50% 50ML Syringe) 25-50ML OF 50% DW IV FOR... UD PRN IV 10/15/17 20:00 11/14/17 19:59 Glucagon (Glucagon Inj) 1 mg UD PRN SQ 10/15/17 20:00 11/14/17 19:59 Cefepime HCl 2000 mg/Syringe 20 ml @ 5 mls/min Q24H IV 10/16/17 16:00 10/25/17 15:59 10/17/17 16:21 5 MLS/MIN Cefepime HCl (Consult) 1 ea UD PRN N/A 10/15/17 22:15 11/14/17 22:14 Fluticasone Propionate (Flonase Nasal [place]) 1 sprays DAILY NA 10/17/17 09:00 11/16/17 08:59 10/18/17 08:33 1 SPRAYS Prazosin HCl (Prazosin) 1 mg HS PO 10/16/17 21:00 11/15/17 20:59 10/17/17 20:43 1 MG Heparin Sodium (Porcine) (Heparin 10 Unit/ ml 5 ml Flush) 5 ml PRN PRN FLUSH 10/16/17 17:30 11/15/17 17:29 10/18/17 10:10 5 ML Objective Vital Signs Date Time Temp Pulse Resp B/P (MAP) Pulse Ox O2 Delivery O2 Flow Rate FiO2 10/18/17 12:02 36.4 94 18 91 Room Air 10/18/17 08:00 Room Air 10/18/17 07:54 36.4 94 18 138/77 (97) 91 10/18/17 00:15 Room Air 10/17/17 23:38 36.2 98 20 120/67 (84) 92 Room Air 10/17/17 15:42 36.9 90 16 106/56 (73) 91 Room Air 10/17/17 15:15 Room Air Physical Exam General Appearance: WD/WN, no apparent distress Eyes: normal inspection, EOMI, sclerae normal ENT: normal ENT inspection, pharynx normal Neck: supple, no adenopathy, trachea midline Respiratory/Chest: chest non-tender, lungs clear, normal breath sounds, no respiratory distress Cardiovascular: regular rate, rhythm, no gallop, no murmur Abdomen: normal bowel sounds, non tender, soft, no organomegaly, + pertinent finding (No CVAT) Extremities: non-tender, no calf tenderness Neurologic/Psychiatric: alert, oriented x 3 Skin: normal color, warm/dry, no rash Lymphatic: no adenopathy Laboratory Results Last 24 Hours Test 10/17/17 16:46 10/17/17 19:35 10/18/17 06:05 10/18/17 07:31 Bedside Glucose 133 mg/dl 141 mg/dl 102 mg/dl White Blood Count 10.16 K/uL Red Blood Count 3.49 M/uL Hemoglobin 10.1 g/dL Hematocrit 32.9 % Mean Corpuscular Volume 94.3 fL Mean Corpuscular Hemoglobin 28.9 pg Mean Corpuscular Hemoglobin Concent 30.7 g/dl RDW Standard Deviation 51.8 fL RDW Coefficient of Variation 15.1 % Platelet Count 263 K/uL Mean Platelet Volume 9.4 fL Sodium Level 140 mmol/L Potassium Level 3.5 mmol/L Chloride Level 104 mmol/L Carbon Dioxide Level 32 mmol/L Anion Gap 4.0 mmol/L Blood Urea Nitrogen 17 mg/dl Creatinine 1.18 mg/dl Est Creatinine Clear Calc Drug Dose 34.2 ml/min Estimated GFR () 49.0 Estimated GFR (Non- 42.3 BUN/Creatinine Ratio 14.1 Random Glucose 94 mg/dl Calcium Level 8.7 mg/dl Test 10/18/17 11:14 Bedside Glucose 135 mg/dl Assessment and Plan Patient with recurrent urinary tract infection following urologic procedure and Best catheter with culture positive for sensitive Pseudomonas aeruginosa. Given quinolone allergy, patient will complete 7 days of therapy with IV cefepime. Would then consider trial of rotational antibiotics to prevent recurrent urinary tract infection.
--- NOTE | 2017-10-18 14:59 | Hospitalist Progress Note ---
Hospitalist Progress Note Date of Service Oct 18, 2017. Subjective Pt evaluation today including: conversation w/ patient, physical exam, chart review, lab review, review of studies, review of inpatient medication list Patient seen and evaluated. No acute events overnight. Reporting feeling better. Is hoping to try and prevent further UTIs. Is following with Dr. Coronel from urology. Still feels that she is generally weak and not yet at her baseline functioning. No issues with midline and will need a few more days of IV antibiotics. Awaiting approval for [facility]. Constitutional: No fever, No chills Respiratory: No shortness of breath Cardiovascular: No chest pain Abdomen: + pain (intermittent RLQ), No nausea, No vomiting, No diarrhea, No constipation Musculoskeletal: No swelling, No calf pain Female : No dysuria Heme: No abnormal bleeding/bruising Skin: No rash Medications Current Inpatient Medications Medications (Trade) Dose Ordered Sig/Taye Route Start Time Stop Time Status Last Admin Dose Admin Ascorbic Acid (Vitamin C Tab) 500 mg DAILY PO 10/16/17 09:00 11/15/17 08:59 10/18/17 08:34 500 MG Aspirin (Ecotrin Tab) 81 mg QAM PO 10/16/17 09:00 11/15/17 08:59 10/18/17 08:31 81 MG Vitamin B Complex (Vitamin B Complex) 1 tab DAILY PO 10/16/17 09:00 11/15/17 08:59 10/18/17 08:33 1 TAB Diltiazem HCl (TIAzac CAP) 120 mg DAILY PO 10/16/17 09:00 11/15/17 08:59 10/18/17 08:32 120 MG Duloxetine HCl (Cymbalta Cap) 30 mg QAM PO 10/16/17 09:00 11/15/17 08:59 10/18/17 08:31 30 MG Duloxetine HCl (Cymbalta Cap) 60 mg QAM PO 10/16/17 09:00 11/15/17 08:59 10/18/17 08:31 60 MG Furosemide (Lasix Tab) 40 mg QAM PO 10/16/17 09:00 11/15/17 08:59 Future Hold 10/17/17 07:48 40 MG Gabapentin (Neurontin Cap) 300 mg TID PO 10/15/17 21:00 11/14/17 20:59 10/18/17 13:21 300 MG Hydroxychloroquine Sulfate (Plaquenil Tab) 200 mg BID PO 10/15/17 21:00 11/14/17 20:59 10/18/17 08:32 200 MG Levothyroxine Sodium (Synthroid Tab) 88 mcg DAILYBB PO 10/16/17 06:30 11/15/17 06:59 10/18/17 05:45 88 MCG Ondansetron HCl (Zofran Odt) 8 mg Q6H PRN SL 10/15/17 19:45 11/14/17 19:44 Oxycodone HCl (Oxycontin Tab) 10 mg BID PO 10/15/17 22:00 10/29/17 21:59 10/18/17 08:31 10 MG Prednisone (PredniSONE TAB) 12.5 mg QAM PO 10/16/17 09:00 11/15/17 08:59 10/18/17 08:31 12.5 MG Quetiapine Fumarate (seroQUEL TAB) 100 mg HS PO 10/15/17 21:00 11/14/17 20:59 10/17/17 20:43 100 MG Miscellaneous Information (Order Awaiting Action) 1 ea QS N/A 10/16/17 00:00 11/15/17 00:00 Pantoprazole Sodium (Protonix Tab) 40 mg BID PO 10/15/17 21:00 11/14/17 20:59 10/18/17 08:33 40 MG Polyethylene (Miralax Powder Packet) 17 gm BID PO 10/15/17 21:00 11/14/17 20:59 10/18/17 08:33 17 GM Diclofenac Sodium (Voltaren 1% Top Gel) 1 appln PRN PRN EXT 10/15/17 19:45 11/14/17 19:44 Lactobacillus Acidophilus (Floranex Tab) 4 tab TIDM PO 10/16/17 08:00 11/15/17 07:59 10/18/17 12:48 4 TAB Oxycodone/ Acetaminophen (Percocet 5-325mg Tab) 1 tab Q4H PRN PO 10/15/17 19:45 10/29/17 19:44 10/18/17 13:21 1 TAB Enoxaparin Sodium (Lovenox Inj) 40 mg DAILY@2000 SQ 10/15/17 22:30 11/14/17 22:29 10/17/17 20:39 40 MG Acetaminophen (Tylenol Tab) 650 mg Q4H PRN PO 10/15/17 20:00 11/14/17 19:59 Al Hydrox/Mg Hydrox/Simethicone (Maalox Max Susp) 15 ml Q4H PRN PO 10/15/17 20:00 11/14/17 19:59 Magnesium Hydroxide (Milk Of Magnesia Susp) 30 ml Q6H PRN PO 10/15/17 20:00 11/14/17 19:59 Polyethylene (Miralax Powder Packet) 17 gm DAILY PRN PO 10/15/17 20:00 11/14/17 19:59 Zolpidem Tartrate (Ambien Tab) 5 mg HSZ PRN PO 10/15/17 20:00 11/14/17 19:59 Ondansetron HCl (Zofran Inj) 4 mg Q6H PRN IV 10/15/17 20:00 11/14/17 19:59 10/16/17 14:03 4 MG Insulin Aspart (novoLOG ASPART) SLIDING SCALE If C... ACHS SC 10/15/17 21:00 11/14/17 20:59 10/18/17 12:52 1 UNITS Glucose (Glucose 40% Gel) 15-30 GRAMS 15 GRAMS... UD PRN PO 10/15/17 20:00 11/14/17 19:59 Glucose (Glucose Chew Tab) 4-8 Tablets 4 Tabl... UD PRN PO 10/15/17 20:00 11/14/17 19:59 Dextrose (Dextrose 50% 50ML Syringe) 25-50ML OF 50% DW IV FOR... UD PRN IV 10/15/17 20:00 11/14/17 19:59 Glucagon (Glucagon Inj) 1 mg UD PRN SQ 10/15/17 20:00 11/14/17 19:59 Cefepime HCl 2000 mg/Syringe 20 ml @ 5 mls/min Q24H IV 10/16/17 16:00 10/25/17 15:59 10/17/17 16:21 5 MLS/MIN Cefepime HCl (Consult) 1 ea UD PRN N/A 10/15/17 22:15 2/4/18 22:14 Fluticasone Propionate (Flonase Nasal [place]) 1 sprays DAILY NA 10/17/17 09:00 11/16/17 08:59 10/18/17 08:33 1 SPRAYS Prazosin HCl (Prazosin) 1 mg HS PO 10/16/17 21:00 11/15/17 20:59 10/17/17 20:43 1 MG Heparin Sodium (Porcine) (Heparin 10 Unit/ ml 5 ml Flush) 5 ml PRN PRN FLUSH 10/16/17 17:30 11/15/17 17:29 10/18/17 10:10 5 ML Objective Vital Signs Date Time Temp Pulse Resp B/P (MAP) Pulse Ox O2 Delivery O2 Flow Rate FiO2 10/18/17 12:02 36.4 94 18 91 Room Air 10/18/17 08:00 Room Air 10/18/17 07:54 36.4 94 18 138/77 (97) 91 10/18/17 00:15 Room Air 10/17/17 23:38 36.2 98 20 120/67 (84) 92 Room Air 10/17/17 15:42 36.9 90 16 106/56 (73) 91 Room Air 10/17/17 15:15 Room Air Physical Exam General Appearance: WD/WN, no apparent distress Eyes: sclerae normal ENT: hearing grossly normal Neck: supple, no JVD, trachea midline Respiratory/Chest: lungs clear, normal breath sounds, no respiratory distress, no accessory muscle use Cardiovascular: regular rate, rhythm Abdomen: normal bowel sounds, non tender, soft, + pertinent finding (colostomy to LLQ with brown liquid stool; surround skin without erythema) Extremities: no pedal edema, no calf tenderness Neurologic/Psychiatric: alert, oriented x 3 Skin: normal color, warm/dry Laboratory Results Last 24 Hours Test 10/17/17 16:46 10/17/17 19:35 10/18/17 06:05 10/18/17 07:31 Bedside Glucose 133 mg/dl 141 mg/dl 102 mg/dl White Blood Count 10.16 K/uL Red Blood Count 3.49 M/uL Hemoglobin 10.1 g/dL Hematocrit 32.9 % Mean Corpuscular Volume 94.3 fL Mean Corpuscular Hemoglobin 28.9 pg Mean Corpuscular Hemoglobin Concent 30.7 g/dl RDW Standard Deviation 51.8 fL RDW Coefficient of Variation 15.1 % Platelet Count 263 K/uL Mean Platelet Volume 9.4 fL Sodium Level 140 mmol/L Potassium Level 3.5 mmol/L Chloride Level 104 mmol/L Carbon Dioxide Level 32 mmol/L Anion Gap 4.0 mmol/L Blood Urea Nitrogen 17 mg/dl Creatinine 1.18 mg/dl Est Creatinine Clear Calc Drug Dose 34.2 ml/min Estimated GFR () 49.0 Estimated GFR (Non- 42.3 BUN/Creatinine Ratio 14.1 Random Glucose 94 mg/dl Calcium Level 8.7 mg/dl Test 10/18/17 11:14 Bedside Glucose 135 mg/dl Assessment and Plan Ms. Neal is an 86 year old woman here for recurrent UTI. Sepsis from Pansensitive Pseudomonas UTI: IMPROVING - Cefepime 2 g IV daily to finish 7 day course on 10/21 - Midline to LUE - ID following - recommendations as above Hypokalemia: RESOLVED - Continue to monitor Mild STERLING: RESOLVED - Increased to 1.28 but currently resolved can continue Lasix on D/C Lupus/RA: STABLE - Plaquenil 200 mg BID and Prednisone 12.5 mg daily Chronic Sinusitis: STABLE T2DM: Diet Controlled - A1c 6.4 - Has required minimal coverage in-hospital - continue to monitor as outpatient DVT Prophylaxis: Lovenox 40 mg SC daily Code Status: FULL RESUSCITATION Disposition: Medical optimal for D/C to [facility] when approved - Recommend outpatient F/U with Urology Discharge planning: rehab hospital
[2017-10-18] MEDS: CEFEPIME IV 2,000 MG in SYRINGE 7.5 ML IV SCH (15:43)
[2017-10-18 15:48] VITALS: BP 133/65; PULSE 93; TEMP 36.8; O2SAT 91
[2017-10-18] MEDS: QUETIAPINE FUMARATE 100 MG TAB PO SCH (20:50)
[2017-10-18] MEDS: PRAZOSIN HCL 1 MG CAP PO SCH (20:50)
[2017-10-18] MEDS: ENOXAPARIN 40 MG/0.4 ML SYR SQ SCH (22:14)
[2017-10-19 00:44] VITALS: BP 111/67; PULSE 100; TEMP 36.7; O2SAT 91
[2017-10-19] MEDS: LEVOTHYROXINE 88 MCG TAB PO SCH (06:38)
[2017-10-19 07:37] LABS: HEMATOCRIT 32.7 % (37-47); MEAN CELL VOLUME 94.2 fL (80-100); MEAN CORPUSCULAR HEMOGLOBIN 28.8 pg (25-34); MEAN CORPUSCULAR HGB CONC 30.6 g/dl (32-36); PLATELET COUNT 246 K/uL (130-400); RED CELL DISTRIBUTION WIDTH CV 15.3 % (11.5-14.5); RED CELL DISTRIBUTION WIDTH SD 52.1 fL (36.4-46.3); WHITE BLOOD COUNT 10.14 K/uL (4.8-10.8)
[2017-10-19 07:46] VITALS: BP 123/70; PULSE 85; TEMP 36.8; O2SAT 91
[2017-10-19] MEDS: PANTOprazole SOD 40 MG TAB PO SCH (08:32)
[2017-10-19] MEDS: DULOXETINE HCL 60 MG CAP PO SCH (08:32)
[2017-10-19] MEDS: DILTIAZEM HCL 120 MG EXT REL CAP PO SCH (08:32)
[2017-10-19] MEDS: OXYCODONE HCL 10 MG TABCR (OXYCONTIN) PO SCH (08:32)
[2017-10-19] MEDS: DULOXETINE (CYMBALTA) 30 MG CAP PO SCH (08:32)
[2017-10-19] MEDS: POLYETHYLENE (MIRALAX) 17 GM PACK PO SCH (08:32)
[2017-10-19] MEDS: ASPIRIN 81 MG ECTAB PO SCH (08:32)
[2017-10-19] MEDS: ASCORBIC ACID 500 MG TAB PO SCH (08:33)
[2017-10-19] MEDS: LACTOBACILLUS ACIDOPHILUS (FLORANEX) TAB PO SCH ×2 (08:33→12:14)
[2017-10-19] MEDS: GABAPENTIN 300 MG CAP PO SCH ×2 (08:33→14:25)
[2017-10-19] MEDS: VITAMIN B COMPLEX TAB PO SCH (08:33)
[2017-10-19] MEDS: FLUTICASONE PROPIONATE NA SPR 16 GM BTL SCH (08:34)
[2017-10-19] MEDS: HYDROXYCHLOROQUINE SULFATE 200 MG TAB PO SCH (08:35)
[2017-10-19] MEDS: INSULIN ASPART 100 UNITS/ML 3 ML PEN SC SCH ×2 (08:40→13:13)
[2017-10-19 09:12] LABS: CALCIUM 8.7 mg/dl (8.5-10.1); CREATININE 1.09 mg/dl (0.60-1.20); POTASSIUM 3.6 mmol/L (3.5-5.1)
--- NOTE | 2017-10-19 11:02 | Infectious Disease Progress Nt ---
Progress Note Date of Service Oct 19, 2017. Subjective Pt evaluation today including: conversation w/ patient, physical exam, chart review, lab review, review of studies, conversation w/ reporting process consultant, review of inpatient medication list Patient feeling much better today. Urinary symptoms significantly improved. Remains afebrile. Tolerating cefepime without apparent difficulty. All Other Systems: Reviewed and Negative Medications Current Inpatient Medications Medications (Trade) Dose Ordered Sig/Taye Route Start Time Stop Time Status Last Admin Dose Admin Ascorbic Acid (Vitamin C Tab) 500 mg DAILY PO 10/16/17 09:00 11/15/17 08:59 10/19/17 08:33 500 MG Aspirin (Ecotrin Tab) 81 mg QAM PO 10/16/17 09:00 11/15/17 08:59 10/19/17 08:32 81 MG Vitamin B Complex (Vitamin B Complex) 1 tab DAILY PO 10/16/17 09:00 11/15/17 08:59 10/19/17 08:33 1 TAB Diltiazem HCl (TIAzac CAP) 120 mg DAILY PO 10/16/17 09:00 11/15/17 08:59 10/19/17 08:32 120 MG Duloxetine HCl (Cymbalta Cap) 30 mg QAM PO 10/16/17 09:00 11/15/17 08:59 10/19/17 08:32 30 MG Duloxetine HCl (Cymbalta Cap) 60 mg QAM PO 10/16/17 09:00 11/15/17 08:59 10/19/17 08:32 60 MG Furosemide (Lasix Tab) 40 mg QAM PO 10/16/17 09:00 11/15/17 08:59 Future Hold 10/17/17 07:48 40 MG Gabapentin (Neurontin Cap) 300 mg TID PO 10/15/17 21:00 11/14/17 20:59 10/19/17 08:33 300 MG Hydroxychloroquine Sulfate (Plaquenil Tab) 200 mg BID PO 10/15/17 21:00 11/14/17 20:59 10/19/17 08:35 200 MG Levothyroxine Sodium (Synthroid Tab) 88 mcg DAILYBB PO 10/16/17 06:30 11/15/17 06:59 10/19/17 06:38 88 MCG Ondansetron HCl (Zofran Odt) 8 mg Q6H PRN SL 10/15/17 19:45 11/14/17 19:44 Oxycodone HCl (Oxycontin Tab) 10 mg BID PO 10/15/17 22:00 10/29/17 21:59 10/19/17 08:32 10 MG Prednisone (PredniSONE TAB) 12.5 mg QAM PO 10/16/17 09:00 11/15/17 08:59 10/19/17 08:34 12.5 MG Quetiapine Fumarate (seroQUEL TAB) 100 mg HS PO 10/15/17 21:00 11/14/17 20:59 10/18/17 20:50 100 MG Miscellaneous Information (Order Awaiting Action) 1 ea QS N/A 10/16/17 00:00 11/15/17 00:00 Pantoprazole Sodium (Protonix Tab) 40 mg BID PO 10/15/17 21:00 11/14/17 20:59 10/19/17 08:32 40 MG Polyethylene (Miralax Powder Packet) 17 gm BID PO 10/15/17 21:00 11/14/17 20:59 10/19/17 08:32 17 GM Diclofenac Sodium (Voltaren 1% Top Gel) 1 appln PRN PRN EXT 10/15/17 19:45 11/14/17 19:44 Lactobacillus Acidophilus (Floranex Tab) 4 tab TIDM PO 10/16/17 08:00 11/15/17 07:59 10/19/17 08:33 4 TAB Oxycodone/ Acetaminophen (Percocet 5-325mg Tab) 1 tab Q4H PRN PO 10/15/17 19:45 10/29/17 19:44 10/18/17 13:21 1 TAB Enoxaparin Sodium (Lovenox Inj) 40 mg DAILY@2000 SQ 10/15/17 22:30 11/14/17 22:29 10/18/17 22:14 40 MG Acetaminophen (Tylenol Tab) 650 mg Q4H PRN PO 10/15/17 20:00 11/14/17 19:59 Al Hydrox/Mg Hydrox/Simethicone (Maalox Max Susp) 15 ml Q4H PRN PO 10/15/17 20:00 11/14/17 19:59 Magnesium Hydroxide (Milk Of Magnesia Susp) 30 ml Q6H PRN PO 10/15/17 20:00 11/14/17 19:59 Polyethylene (Miralax Powder Packet) 17 gm DAILY PRN PO 10/15/17 20:00 11/14/17 19:59 Zolpidem Tartrate (Ambien Tab) 5 mg HSZ PRN PO 10/15/17 20:00 11/14/17 19:59 Ondansetron HCl (Zofran Inj) 4 mg Q6H PRN IV 10/15/17 20:00 11/14/17 19:59 10/16/17 14:03 4 MG Insulin Aspart (novoLOG ASPART) SLIDING SCALE If C... ACHS SC 10/15/17 21:00 11/14/17 20:59 10/19/17 08:40 2 UNITS Glucose (Glucose 40% Gel) 15-30 GRAMS 15 GRAMS... UD PRN PO 10/15/17 20:00 11/14/17 19:59 Glucose (Glucose Chew Tab) 4-8 Tablets 4 Tabl... UD PRN PO 10/15/17 20:00 11/14/17 19:59 Dextrose (Dextrose 50% 50ML Syringe) 25-50ML OF 50% DW IV FOR... UD PRN IV 10/15/17 20:00 11/14/17 19:59 Glucagon (Glucagon Inj) 1 mg UD PRN SQ 10/15/17 20:00 11/14/17 19:59 Cefepime HCl 2000 mg/Syringe 20 ml @ 5 mls/min Q24H IV 10/16/17 16:00 10/25/17 15:59 10/18/17 15:43 5 MLS/MIN Cefepime HCl (Consult) 1 ea UD PRN N/A 10/15/17 22:15 11/14/17 22:14 Fluticasone Propionate (Flonase Nasal [place]) 1 sprays DAILY NA 10/17/17 09:00 11/16/17 08:59 10/19/17 08:34 1 SPRAYS Prazosin HCl (Prazosin) 1 mg HS PO 10/16/17 21:00 11/15/17 20:59 10/18/17 20:50 1 MG Heparin Sodium (Porcine) (Heparin 10 Unit/ ml 5 ml Flush) 5 ml PRN PRN FLUSH 10/16/17 17:30 11/15/17 17:29 10/19/17 09:14 5 ML Objective Vital Signs Date Time Temp Pulse Resp B/P (MAP) Pulse Ox O2 Delivery O2 Flow Rate FiO2 10/19/17 08:00 Room Air 10/19/17 07:46 36.8 85 18 123/70 (87) 91 Room Air 10/19/17 00:44 36.7 100 20 111/67 (82) 91 Room Air 10/19/17 00:00 Room Air 10/18/17 20:00 Room Air 10/18/17 15:48 36.8 93 18 133/65 (87) 91 Room Air 10/18/17 15:25 Room Air 10/18/17 12:02 36.4 94 18 91 Room Air Physical Exam General Appearance: WD/WN, no apparent distress Eyes: normal inspection, EOMI, sclerae normal ENT: normal ENT inspection, pharynx normal Neck: supple, no adenopathy, trachea midline Respiratory/Chest: chest non-tender, lungs clear, normal breath sounds, no respiratory distress Cardiovascular: regular rate, rhythm, no gallop, no murmur Abdomen: normal bowel sounds, non tender, soft, no organomegaly Extremities: non-tender, no calf tenderness Neurologic/Psychiatric: alert, normal mood/affect, oriented x 3 Skin: normal color, warm/dry, no rash Lymphatic: no adenopathy Laboratory Results Last 24 Hours Test 10/18/17 11:14 10/18/17 16:52 10/18/17 20:15 10/19/17 07:20 Bedside Glucose 135 mg/dl 192 mg/dl 92 mg/dl White Blood Count 10.14 K/uL Red Blood Count 3.47 M/uL Hemoglobin 10.0 g/dL Hematocrit 32.7 % Mean Corpuscular Volume 94.2 fL Mean Corpuscular Hemoglobin 28.8 pg Mean Corpuscular Hemoglobin Concent 30.6 g/dl RDW Standard Deviation 52.1 fL RDW Coefficient of Variation 15.3 % Platelet Count 246 K/uL Mean Platelet Volume 9.0 fL Sodium Level 141 mmol/L Potassium Level 3.6 mmol/L Chloride Level 105 mmol/L Carbon Dioxide Level 29 mmol/L Anion Gap 7.0 mmol/L Blood Urea Nitrogen 17 mg/dl Creatinine 1.09 mg/dl Est Creatinine Clear Calc Drug Dose 37.0 ml/min Estimated GFR () 54.0 Estimated GFR (Non- 46.6 BUN/Creatinine Ratio 15.9 Random Glucose 111 mg/dl Calcium Level 8.7 mg/dl Test 10/19/17 07:55 Bedside Glucose 106 mg/dl Assessment and Plan Patient with recurrent urinary tract infection following urologic procedure and Best catheter with culture positive for sensitive Pseudomonas aeruginosa. Given quinolone allergy, patient will complete 7 days of therapy with IV cefepime. Would then consider trial of rotational antibiotics to prevent recurrent urinary tract infection, and so I would like to follow patient in the office after completion of IV antibiotics to discuss this approach.
[2017-10-19] MEDS ORDERED: LCTX PO (14:23)
[2017-10-19] MEDS ORDERED: FLNIN (14:23)
[2017-10-19] MEDS: CEFEPIME IV 2,000 MG in SYRINGE 7.5 ML IV SCH (14:47)
--- NOTE | 2017-10-19 15:24 | Discharge Summary ---
Discharge Summary Date of Service Oct 19, 2017. Discharge Summary Admission Date: Oct 15, 2017 at 20:02 Discharge Date: Oct 19, 2017 Discharge Disposition: Home with services Principal Diagnosis: Pansensitive Pseudomonas UTI Problems/Secondary Diagnoses: Medical Problems: (1) Altered mental status (2) Ambulatory dysfunction (3) Arthritis (4) Asthma (5) Cholecystectomy (6) Chronic back pain (7) Complicated UTI (urinary tract infection) (8) Depression (9) Diverticulitis (10) Failure of outpatient treatment (11) Fall from ground level (12) FUO (fever of unknown origin) (13) Gastroesophageal reflux disease (14) Generalized weakness (15) Hyperlipidemia (16) Hypothyroidism (17) IBS (18) Impacted cerumen (19) Lupus (20) Major depressive disorder, recurrent episode with anxious distress (21) Osteoarthritis (22) Pituitary adenoma (23) pituitary gland removal (24) Sepsis (25) SIRS (systemic inflammatory response syndrome) (26) Slurred speech (27) TIA (28) Urinary tract infection (29) UTI (urinary tract infection) (30) Vasovagal syncope (31) Viral syndrome Surgical Problems: (1) H/O: hysterectomy (2) History of hip replacement (3) Hx of cholecystectomy Immunizations: Have You Had Influenza Vaccine: N/A Influenza Vaccine Date: Jul 24, 2007 History of Tetanus Vaccine?: UTD History of Pneumococcal: Yes Pneumococcal Date: May 09, 1990 History of Hepatitis B Vaccine: Yes Hepatitis Immunization Date: May 09, 1985 Procedures: CT OF THE ABDOMEN AND PELVIS WITHOUT CONTRAST, STONE PROTOCOL FINDINGS: Mild cardiomegaly is noted. Mild biliary ductal dilatation is unchanged and likely related to prior cholecystectomy. There is no peripancreatic infiltration. Unenhanced images of the spleen and adrenal glands are unremarkable. There are multiple bilateral renal calculi. There is no hydronephrosis. No ureteral calculi are identified although sensitivity for detection of small distal ureteral nonobstructing calculus diminished due to streak artifact from bilateral hip arthroplasties. A few descending colostomy is noted. There is no evidence for a bowel obstruction. There is colonic diverticulosis without evidence for acute diverticulitis. There is no pelvic or abdominal lymphadenopathy. The appendix is normal. No suspicious osseous lesions are identified. A small umbilical hernia is noted. IMPRESSION: 1. Bilateral nephrolithiasis. No hydronephrosis. No ureteral calculi identified although sensitivity for detection of small nonobstructing distal ureteral calculi is diminished by streak artifact from bilateral hip arthroplasties. 2. No bowel obstruction. Normal appendix. CT HEAD WITHOUT CONTRAST (CT) FINDINGS: No intra or extra-axial mass lesions are visualized. There is no CT evidence of acute cortical infarction. There is no evidence of midline shift. There is no acute hemorrhage. No calvarial fractures are visualized. There are patchy white matter hypodensities likely on a small vessel basis. There is no evidence of pathologic ventricular dilatation. There is no evidence of acute sinusitis IMPRESSION: No acute intracranial findings Consultations: 1. Infectious Disease Medication Reconciliation New Medications: Cefepime Hcl (Cefepime) 2 Gm Inj 2 GM IV DAILY for 3 Days Fluticasone Propionate (Fluticasone Propionate) 50 Mcg/Act Spr 1 SPRAYS NA DAILY for 14 Days, #1 BTL Lactobacillus Acidophilus (Floranex) 1 Tab Tab 4 TAB PO TIDM for 5 Days, #60 TAB Continued Medications: Ascorbic Acid (Ascorbic Acid) 500 Mg Tab 500 MG PO DAILY, TAB Aspirin (Aspirin Ec) 81 Mg Tab 81 MG PO QAM B-Complex Vitamins (B Complex) 1 Cap Cap 1 CAP PO DAILY Cholecalciferol (Vitamin D3) 2,000 Unit Cap 1 CAP PO DAILY, CAP Cranberry (Vaccinium Macrocarp (Cranberry) 400 Mg Tab 1 TAB PO NOON Dexlansoprazole (Dexilant) 60 Mg Cap 60 MG PO BID Diltiazem Hcl Ext Rel (Tiazac) 120 Mg Capcr 120 MG PO NOON, CAP Duloxetine Hcl (Cymbalta) 60 Mg Cap 60 MG PO QAM TAKE ALONG WITH ONE 30MG CAPSULE TO = 90MG Duloxetine Hcl (Cymbalta) 30 Mg Cap 30 MG PO QAM TAKE ALONG WITH ONE 60MG CAP TO = 90MG Furosemide (Lasix) 20 Mg Tab 40 MG PO QAM, TAB Gabapentin (Neurontin) 300 Mg Cap 300 MG PO TID, CAP Home O2 Therapy (Oxygen) Gas 3 LITERS NA PRN Hydroxychloroquine Sulfate (Plaquenil) 200 Mg Tab 200 MG PO BID, TAB Levothyroxine Sodium (Synthroid) 88 Mcg Tab 88 MCG PO DAILY, TAB Omeprazole (Prilosec) 20 Mg Capcr 20 MG PO BID, CAP Ondansetron Odt (Zofran Odt) 8 Mg Soltab 8 MG SL Q6H PRN for Nausea, TAB Oxycodone HCl (Oxycontin) 10 Mg Tabcr 10 MG PO BID for 3 Days, #6 TABS (This prescription has been renewed) Polyethylene Glycol 3350 (Miralax) 1 Pow Pow 17 GM PO BID, GM Prednisone Tab (Prednisone) 10 Mg Tab 12.5 MG PO QAM, TAB Quetiapine Fumarate (Seroquel) 100 Mg Tab 100 MG PO HS, TAB [Voltaren Gel] () 1 DOSE TOP PRN Discontinued Medications: Cefdinir (Omnicef) 300 Mg Cap 300 MG PO Q12H, CAP Discharge Exam Review of Systems: Constitutional: + weakness (improving), No fever, No chills Respiratory: No cough, No shortness of breath Cardiovascular: No chest pain, No palpitations Abdomen: No pain, No nausea, No vomiting, No diarrhea, No constipation Musculoskeletal: No swelling, No calf pain Genitourinary - Female: No dysuria, No hematuria Hematologic / Lymphatic: No abnormal bleeding/bruising Physical Exam: General Appearance: WD/WN, no apparent distress Eyes: sclerae normal Neck: supple, no JVD, trachea midline Respiratory/Chest: lungs clear, normal breath sounds, no respiratory distress, no accessory muscle use Cardiovascular: regular rate, rhythm Abdomen / GI: normal bowel sounds, non tender, soft Extremities: no calf tenderness, no pedal edema Neurologic/Psychiatric: alert, oriented x 3 Skin: normal color, warm/dry Hospital Course ADMISSION: 86-year-old female with past medical history of T2DM- diet controlled , Rheumatoid arthritis, Lupus, OA and recurrent urinary tract infection. Patient has multiple admissions to the hospital with urinary tract infection. Last admission she was referred to a urologist. 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 She had a Best placed then which was removed 2 weeks later with no problems. About a week ago patient started having again severe dysuria. Diaphoresis, chills, abdominal pain and generalized fatigue. Urine culture obtained on October 13 grew pansensitive pseudomonas but unfortunately patient has allergy to quinolones and Cipro. Patient was treated with Keflex for a week with no improvement. As she is growing Pseudomonas. Patient came to the ED for IV cefepime. Patient reported to have severe allergy with hives if she takes Cipro. HOSPITAL COURSE: Ms. Neal was admitted for Pansensitive Pseudomonas UTI. She was placed on Cefepime and will continue IV infusions un 10/21 to complete a 7 day course. She had a LUE midline catheter placed which can be removed after completion of antibiotics. Infectious Disease followed and plan to follow as an outpatient with consideration for cyclic antibiotics for UTI prophylaxis. Patient progressively improved during admission but was concerned about weakness. A referral was sent to [facility] but ultimately denied with [id number]. Her first choice was the [facility] for SNF but they are unable to take at this time. Patient would prefer to go home with [facility]. Patient is optimal for D/C home with [facility]. Total Time Spent: Greater than 30 minutes This includes examination of the patient, discharge planning, medication reconciliation, and communication with other providers. Discharge Instructions Please refer to the electronic Patient Visit Report (Discharge Instructions) for additional information. Additional Copies To Basil Coronel D.O.; Nidhi Gardner MD
== END 2017-10-19 16:34 | disposition home health service (06) | DRG 872 ==
LOC: C.EDB 13:57 → C.MS2W 20:02 → ENRESERV 20:13
PROVIDERS: ADMIT Internal Medicine; ATTEND Internal Medicine
DX: A41.9 Sepsis, unspecified organism (principal); N39.0 Urinary tract infection, site not specified; N17.9 Acute kidney failure, unspecified; B96.5 Pseudomonas (aeruginosa) (mallei) (pseudomallei) as the cause of diseases classified elsewhere; N20.0 Calculus of kidney; N13.9 Obstructive and reflux uropathy, unspecified; M06.9 Rheumatoid arthritis, unspecified; E11.9 Type 2 diabetes mellitus without complications; L93.2 Other local lupus erythematosus; K21.9 Gastro-esophageal reflux disease without esophagitis; E87.6 Hypokalemia; J32.9 Chronic sinusitis, unspecified; F32.9 Major depressive disorder, single episode, unspecified; G62.9 Polyneuropathy, unspecified

== ENCOUNTER → 2017-10-25 | Outpatient (CLI) | payer BC ==
[~2017-10-25] MED LIST changes: +ASCO500T16 PO; +B-CO1CAP3 PO; -CEFD300C2 PO; +CEFE2INJ2 IV; -CEPH500C PO; +CHOL2000 PO; +CRAN1TAB4 PO; -CRANPOW PO; +FLNIN; +LCTX PO
== END | disposition home or self-care (01) ==
LOC: C.LAB 12:41
PROVIDERS: ATTEND Internal Medicine Infectious Disease
DX: N39.0 Urinary tract infection, site not specified (principal)

== ENCOUNTER 2017-10-29 09:41 | Inpatient (IN) | payer BC, OTHER ==
[~2017-10-29] VITALS: Ht 160 cm; Wt 75.0 kg
[2017-10-29] MEDS ORDERED: SODIUM CHLORIDE 0.9% 500ML 500 ML IV STA (09:54)
[2017-10-29] MEDS ORDERED: ACETAMINOPHEN 500 MG TAB PO STA (09:54)
--- NOTE | 2017-10-29 10:00 | EMERGENCY ROOM VISIT NOTE ---
History Report prepared by Master: Loi Roca Under the Supervision of: Dr. Truman Lazaro M.D. First contact with patient: 09:49 Stated Complaint: FALL History of Present Illness The patient is a 86 year old female who presents to the Emergency Room with complaints of generalized weakness. Patient admits that weakness started this morning trying to get out of bed. Resulted in her falling and striking back of head. Complaints of weakness as well as a frontal headache and posterior neck pain after a posterior head injury. Currently undergoing IV abx through picc for UTI pseudomonas. Denies fevers, chills, neck stiffness, nausea, vomiting, cp, sob, runny nose, syncope, abdominal pain, swelling, rashes nor other symptoms. No mediations prior to arrival. Onset: [employer] Position: head, neck, other (global) Timing: constant Associated Symptoms: + headache, + neck pain, No rash Note: Patient complains of lower leg pain. Review of Systems See HPI for pertinent positives & negatives. A total of 10 systems reviewed and were otherwise negative. Past Medical & Surgical Medical Problems: (1) Altered mental status (2) Ambulatory dysfunction (3) Arthritis (4) Asthma (5) Cholecystectomy (6) Chronic back pain (7) Complicated UTI (urinary tract infection) (8) Depression (9) Diverticulitis (10) Failure of outpatient treatment (11) Fall from ground level (12) fever (13) FUO (fever of unknown origin) (14) Gastroesophageal reflux disease (15) Generalized weakness (16) Hyperlipidemia (17) Hypothyroidism (18) IBS (19) Impacted cerumen (20) Lupus (21) Major depressive disorder, recurrent episode with anxious distress (22) Osteoarthritis (23) Pituitary adenoma (24) pituitary gland removal (25) Sepsis (26) SIRS (systemic inflammatory response syndrome) (27) Slurred speech (28) TIA (29) Urinary tract infection (30) UTI (urinary tract infection) (31) Vasovagal syncope (32) Viral syndrome Surgical Problems: (1) H/O: hysterectomy (2) History of hip replacement (3) Hx of cholecystectomy Family History Cancer Diabetes mellitus Gallbladder disease Heart disease Hypertension Kidney disease Kidney stones Seizures Social History Smoking Status: Never Smoker Alcohol Use: none Drug Use: none Marital Status: Housing Status: lives alone Occupation Status: retired Current/Historical Medications Scheduled Ascorbic Acid (Ascorbic Acid), 500 MG PO DAILY Aspirin (Aspirin Ec), 81 MG PO QAM B-Complex Vitamins (B Complex), 1 CAP PO DAILY Cefepime Hcl (Cefepime), 2 GM IV DAILY Cholecalciferol (Vitamin D3), 2,000 UNITS PO DAILY Cranberry (Vaccinium Macrocarp (Cranberry), 400 MG PO DAILY Dexlansoprazole (Dexilant), 60 MG PO BID Diltiazem Hcl Ext Rel (Tiazac), 120 MG PO DAILY Duloxetine Hcl (Cymbalta), 60 MG PO QAM Duloxetine Hcl (Cymbalta), 30 MG PO QAM Fluticasone Propionate (Fluticasone Propionate), 1 SPRAYS NA DAILY Furosemide (Lasix), 40 MG PO QAM Gabapentin (Neurontin), 300 MG PO TID Home O2 Therapy (Oxygen), 3 LITERS NA PRN Hydroxychloroquine Sulfate (Plaquenil), 200 MG PO BID Lactobacillus Acidophilus (Lactinex), 4 TABS PO TIDM Levothyroxine Sodium (Synthroid), 88 MCG PO DAILY Omeprazole (Prilosec), 20 MG PO BID Oxycodone HCl (Oxycontin), 10 MG PO BID Polyethylene Glycol 3350 (Miralax), 17 GM PO BID Prednisone Tab (Prednisone), 12.5 MG PO QAM Quetiapine Fumarate (Seroquel), 100 MG PO HS Scheduled PRN Diclofenac Sod (Voltaren), 1 APPLN TOP DAILY PRN for Pain Ondansetron Odt (Zofran Odt), 8 MG SL Q6H PRN for Nausea Allergies Coded Allergies: Ciprofloxacin (Verified Allergy, Intermediate, HIVES, 10/29/17) Quinolones (Verified Allergy, Intermediate, HIVES, 10/29/17) Fluticasone (Verified Allergy, Unknown, ADVAIR-UNKNOWN, 10/29/17) Lactose Intolerance (Verified Allergy, Unknown, GI UPSET, 10/29/17) Latex1 -Allergic Contact Dermititis (Verified Allergy, Unknown, RASH, 10/29) Morphine (Verified Allergy, Unknown, NAUSEA AND VOMITING, 10/29/17) Nitrofurantoin (Verified Allergy, Unknown, HIVES, 10/29/17) Salmeterol (Verified Allergy, Unknown, ADVAIR, 10/29/17) Scallop (Verified Allergy, Unknown, THROAT SWELLS, 10/29/17) Celecoxib (Verified Adverse Reaction, Unknown, barretts esophagus, 10/29/17 ) Physical Exam Vital Signs Date Time Temp Pulse Resp B/P (MAP) Pulse Ox O2 Delivery O2 Flow Rate FiO2 10/29/17 13:02 112 10/29/17 12:50 37.3 117 20 90/35 95 Nasal Cannula 4.0 10/29/17 11:42 97 Nasal Cannula 4.0 10/29/17 11:37 121 20 122/58 98 Nasal Cannula 4.0 10/29/17 11:04 121 16 147/115 95 Nasal Cannula 3.0 10/29/17 10:09 38.4 118 24 83/44 80 Room Air 10/29/17 09:53 120 Physical Exam GENERAL: Patient is tired appearing and in minimal distress. Febrile. HEENT: No acute trauma, normocephalic atraumatic, dry mucous membranes, no nasal congestion, no scleral icterus. NECK: No stridor, no adenopathy, no meningismus, trachea is midline. LUNGS: No dyspnea. Clear to auscultation and equal bilaterally. No wheeze, no rhonchi. HEART: Tachycardiac and rhythm. No murmurs, rubs, gallops appreciated. ABDOMEN: Soft, nontender, bowel sounds positive, no masses appreciated, no peritonitis. BACK: No midline tenderness, no CVA tenderness EXTREMITIES: Normal motion all extremities, no cyanosis, no edema. NEUROLOGIC: Alert and oriented, no acute motor or sensory deficits, no focal weakness, cranial nerves grossly intact. SKIN: No rash, no jaundice, no diaphoresis. Medical Decision & Procedures ER Provider Diagnostic Interpretation: Radiology results and stated below per my review and radiologist interpretation: CT HEAD WITHOUT CONTRAST (CT) CLINICAL HISTORY: Frontal headache and neck pain status post head trauma. COMPARISON STUDY: 10/15/2017 TECHNIQUE: Axial CT of the brain is performed from the vertex to the skull base. IV contrast was not administered for this examination. A dose lowering technique was utilized adhering to the principles of ALARA. CT DOSE: 1703.32 mGy.cm FINDINGS: No intra or extra-axial mass lesions are visualized. There is no CT evidence of acute cortical infarction. There is no evidence of midline shift. There is no acute hemorrhage. No calvarial fractures are visualized. There are patchy white matter hypodensities likely on a small vessel basis. There is no evidence of pathologic ventricular dilatation. There is no evidence of acute sinusitis IMPRESSION: No acute intracranial findings Electronically signed by: Fredy Boyd M.D. 10/29/2017 11:20 AM Dictated Date/Time: 10/29/2017 11:18 AM CHEST ONE VIEW PORTABLE CLINICAL HISTORY: Generalized Weakness COMPARISON STUDY: 09/07/2017 FINDINGS: The cardiac and mediastinal contours remain stable. There is stable mild interstitial thickening. There is no acute parenchymal consolidation. There is no acute failure. There are no pleural effusions.[ There is calcific tendinitis involving the left shoulder. IMPRESSION: No active disease in the chest. Electronically signed by: Fredy Boyd M.D. 10/29/2017 10:16 AM Dictated Date/Time: 10/29/2017 10:[address] OF THE CERVICAL SPINE CLINICAL HISTORY: Neck pain status post trauma COMPARISON STUDY: No previous studies for comparison. CT DOSE: TECHNIQUE: CT scan of the cervical spine was performed from the skull base to the thoracic inlet. Images are reviewed in the axial, sagittal, and coronal planes. IV contrast was not administered for this examination. A dose lowering technique was utilized adhering to the principles of ALARA. FINDINGS: The visualized portions of the lung apices reveal no evidence of pneumothorax. The prevertebral soft tissues are normal. No fractures or subluxations are visualized. There are multilevel degenerative changes most pronounced the C5-6 level. IMPRESSION: No evidence of acute fracture or traumatic subluxation. Electronically signed by: Fredy Boyd M.D. 10/29/2017 11:26 AM Dictated Date/Time: 10/29/2017 11:20 AM Laboratory Results 10/29/17 10:32 Red Blood Count 3.85, Mean Corpuscular Volume 93.0, Mean Corpuscular Hemoglobin 28.8, Mean Corpuscular Hemoglobin Concent 31.0, Mean Platelet Volume 10.0, Neutrophils (%) (Auto) 77.4, Lymphocytes (%) (Auto) 8.9, Monocytes (%) (Auto) 11.7, Eosinophils (%) (Auto) 0.9, Basophils (%) (Auto) 0.2, Neutrophils # (Auto ) 9.97, Lymphocytes # (Auto) 1.14, Monocytes # (Auto) 1.51, Eosinophils # (Auto ) 0.12, Basophils # (Auto) 0.02 10/29/17 10:32 Test 10/29/17 10:32 10/29/17 10:50 10/29/17 10:52 10/29/17 11:30 White Blood Count 12.87 K/uL (4.8-10.8) Red Blood Count 3.85 M/uL (4.2-5.4) Hemoglobin 11.1 g/dL (12.0-16.0) Hematocrit 35.8 % (37-47) Mean Corpuscular Volume 93.0 fL (80-100) Mean Corpuscular Hemoglobin 28.8 pg (25-34) Mean Corpuscular Hemoglobin Concent 31.0 g/dl (32-36) Platelet Count 225 K/uL (130-400) Mean Platelet Volume 10.0 fL (7.4-10.4) Neutrophils (%) (Auto) 77.4 % Lymphocytes (%) (Auto) 8.9 % Monocytes (%) (Auto) 11.7 % Eosinophils (%) (Auto) 0.9 % Basophils (%) (Auto) 0.2 % Neutrophils # (Auto) 9.97 K/uL (1.4-6.5) Lymphocytes # (Auto) 1.14 K/uL (1.2-3.4) Monocytes # (Auto) 1.51 K/uL (0.11-0.59) Eosinophils # (Auto) 0.12 K/uL (0-0.5) Basophils # (Auto) 0.02 K/uL (0-0.2) RDW Standard Deviation 51.0 fL (36.4-46.3) RDW Coefficient of Variation 15.1 % (11.5-14.5) Immature Granulocyte % (Auto) 0.9 % Immature Granulocyte # (Auto) 0.11 K/uL (0.00-0.02) Prothrombin Time 10.7 SECONDS (9.0-12.0) Prothromb Time International Ratio 1.0 (0.9-1.1) Activated Partial Thromboplast Time 29.1 SECONDS (21.0-31.0) Partial Thromboplastin Ratio 1.1 Anion Gap 6.0 mmol/L (3-11) Est Creatinine Clear Calc Drug Dose 30.3 ml/min Estimated GFR () 42.1 Estimated GFR (Non- 36.3 BUN/Creatinine Ratio 20.4 (10-20) Calcium Level 8.5 mg/dl (8.5-10.1) Phosphorus Level 2.8 mg/dl (2.5-4.9) Magnesium Level 2.2 mg/dl (1.8-2.4) Total Bilirubin 0.3 mg/dl (0.2-1) Direct Bilirubin < 0.1 mg/dl (0-0.2) Aspartate Amino Transf (AST/SGOT) 19 U/L (15-37) Alanine Aminotransferase (ALT/SGPT) 25 U/L (12-78) Alkaline Phosphatase 72 U/L (45-117) Troponin I < 0.015 ng/ml (0-0.045) Total Protein 6.7 gm/dl (6.4-8.2) Albumin 3.3 gm/dl (3.4-5.0) Lipase 57 U/L (73-393) Bedside Lactic Acid Venous 1.70 mmol/L (0.90-1.70) Urine Color YELLOW Urine Appearance CLEAR (CLEAR) Urine pH 5.0 (4.5-7.5) Urine Specific Meacham 1.021 (1.000-1.030) Urine Protein NEG (NEG) Urine Glucose (UA) NEG (NEG) Urine Ketones NEG (NEG) Urine Occult Blood TRACE (NEG) Urine Nitrite NEG (NEG) Urine Bilirubin NEG (NEG) Urine Urobilinogen NEG (NEG) Urine Leukocyte Esterase SMALL (NEG) Urine WBC (Auto) 5-10 /hpf (0-5) Urine RBC (Auto) 5-10 /hpf (0-4) Urine Hyaline Casts (Auto) 10-30 /lpf (0-5) Urine Epithelial Cells (Auto) 10-20 /lpf (0-5) Urine Bacteria (Auto) NEG (NEG) Urine Pathogenic Casts 1-5 GRANULAR CASTS /lpf (0) Influenza Type A Antigen Neg for Influ A (NEG) Influenza Type B Antigen Neg for Influ B (NEG) Laboratory results as reviewed by me. Medications Administered Medications (Trade) Dose Ordered Sig/Taye Route Start Time Stop Time Status Last Admin Dose Admin Sodium Chloride 500 ml @ 999 mls/hr Q31M STAT IV 10/29/17 09:54 10/29/17 10:24 DC 10/29/17 11:12 999 MLS/HR Acetaminophen (Tylenol Tab) 1,000 mg NOW STAT PO 10/29/17 09:54 10/29/17 09:57 DC 10/29/17 11:35 1,000 MG Cefepime HCl 1000 mg/Dextrose 111 ml @ 200 mls/hr NOW STAT IV 10/29/17 11:20 10/29/17 11:53 DC 10/29/17 12:27 200 MLS/HR Vancomycin HCl 1500 mg/Sodium Chloride 530 ml @ 200 mls/hr ONE STAT IV 10/29/17 11:20 10/29/17 13:58 DC 10/29/17 12:31 200 MLS/HR Sodium Chloride 1,000 ml @ 999 mls/hr Q1H1M STAT IV 10/29/17 12:15 10/29/17 13:15 DC 10/29/17 12:27 999 MLS/HR ECG Indication: weakness Rate (beats per minute): 121 Rhythm: sinus tachycardia Findings: no acute ischemic change, no ectopy ED Course 0949: The patient was evaluated in room B8. A complete history and physical exam was performed. 1030: I rechecked her blood pressure at 130 systolic. 1157: I spoke with Dr. Wei about the patient's case. 1215: I checked on the patient and she is agreeable to be admitted. Upon reevaluation, the patient is doing well. Discussed results and treatment plan with the patient. She verbalized understanding and agreement with the treatment plan. The patient will be evaluated for further management. Medical Decision Differential: Sepsis, Infectious (UTI/Pneumonia/Meningitis/etc), Metabolic/ Electrolyte Abnormality, Cardiac, Hepatic, Endocrine, Toxicologic, Neurologic, amongst other pathologies entertained. 86 yr old clearly dehydrated female who has been undergoing IV treatment through picc line for UTI. She arrives weak, febrile, tachycardic and hypotensive. She is septic and entering septic shock, though Lactic Acid looks OK. She responded to initial fluid bolus well then required another bolus given trending down BPs and increasing HR. CXR looks OK and UA actually looking much better. No evidence meningitis. She does have picc line. While this may all just be due to dehydration, I feel that treating her as Sepsis is priority and thus broad abx started. Monitored closely and will come in to hospitalist for further evaluation/treatment. Head Trauma GCS Score: 15 Medication Reconcilliation Current Medication List: was personally reviewed by me Blood Pressure Screening Patient's blood pressure: Elevated blood pressure Blood pressure disposition: Elevated BP felt to be situational Consults Time Called: 1155 Consulting Physician: Dr. Wei Returned Call: 1152 Impression Primary Impression: Sepsis Additional Impression: Dehydration Scribe Attestation The scribe's documentation has been prepared under my direction and personally reviewed by me in its entirety. I confirm that the note above accurately reflects all work, treatment, procedures, and medical decision making performed by me. Departure Information Referrals Nidhi Gardner MD (PCP) Problem Qualifiers
[2017-10-29 10:09] VITALS: Ht 160 cm; Wt 75.0 kg
--- NOTE | 2017-10-29 10:17 | DIAGNOSTIC IMAGING REPORT ---
CHEST ONE VIEW PORTABLE CLINICAL HISTORY: Generalized Weakness COMPARISON STUDY: 09/07/2017 FINDINGS: The cardiac and mediastinal contours remain stable. There is stable mild interstitial thickening. There is no acute parenchymal consolidation. There is no acute failure. There are no pleural effusions.[ There is calcific tendinitis involving the left shoulder. IMPRESSION: No active disease in the chest. Electronically signed by: Fredy Boyd M.D. 10/29/2017 10:16 AM Dictated Date/Time: 10/29/2017 10:15 AM
[2017-10-29 11:00] LABS: BASO % 0.2 %; BASO ABS # 0.02 K/uL (0-0.2); EOS % 0.9 %; EOS ABS # 0.12 K/uL (0-0.5); HEMATOCRIT 35.8 % (37-47); HEMOGLOBIN 11.1 g/dL (12.0-16.0); IG# 0.11 K/uL (0.00-0.02); LYMPH % 8.9 %; LYMPH ABS # 1.14 K/uL (1.2-3.4); MEAN CORPUSCULAR HEMOGLOBIN 28.8 pg (25-34); MONO % 11.7 %; MONO ABS # 1.51 K/uL (0.11-0.59); NEUT % 77.4 %; NEUT ABS # 9.97 K/uL (1.4-6.5); PLATELET COUNT 225 K/uL (130-400); RED CELL DISTRIBUTION WIDTH CV 15.1 % (11.5-14.5); WHITE BLOOD COUNT 12.87 K/uL (4.8-10.8)
[2017-10-29] MEDS ORDERED: CEFEPIME IV 1,000 MG in DEXTROSE 5% 100ML 100 ML IV STA (11:20)
[2017-10-29] MEDS ORDERED: VANCOMYCIN INJ 1,500 MG in SODIUM CHLORIDE 0.9% 500ML 500 ML IV STA (11:20)
--- NOTE | 2017-10-29 11:21 | DIAGNOSTIC IMAGING REPORT ---
CT HEAD WITHOUT CONTRAST (CT) CLINICAL HISTORY: Frontal headache and neck pain status post head trauma. COMPARISON STUDY: 10/15/2017 TECHNIQUE: Axial CT of the brain is performed from the vertex to the skull base. IV contrast was not administered for this examination. A dose lowering technique was utilized adhering to the principles of ALARA. CT DOSE: 1703.32 mGy.cm FINDINGS: No intra or extra-axial mass lesions are visualized. There is no CT evidence of acute cortical infarction. There is no evidence of midline shift. There is no acute hemorrhage. No calvarial fractures are visualized. There are patchy white matter hypodensities likely on a small vessel basis. There is no evidence of pathologic ventricular dilatation. There is no evidence of acute sinusitis IMPRESSION: No acute intracranial findings Electronically signed by: Fredy Boyd M.D. 10/29/2017 11:20 AM Dictated Date/Time: 10/29/2017 11:18 AM
[2017-10-29 11:23] LABS: PTT PATIENT 29.1 SECONDS (21.0-31.0)
--- NOTE | 2017-10-29 11:27 | DIAGNOSTIC IMAGING REPORT ---
CT OF THE CERVICAL SPINE CLINICAL HISTORY: Neck pain status post trauma COMPARISON STUDY: No previous studies for comparison. CT DOSE: TECHNIQUE: CT scan of the cervical spine was performed from the skull base to the thoracic inlet. Images are reviewed in the axial, sagittal, and coronal planes. IV contrast was not administered for this examination. A dose lowering technique was utilized adhering to the principles of ALARA. FINDINGS: The visualized portions of the lung apices reveal no evidence of pneumothorax. The prevertebral soft tissues are normal. No fractures or subluxations are visualized. There are multilevel degenerative changes most pronounced the C5-6 level. IMPRESSION: No evidence of acute fracture or traumatic subluxation. Electronically signed by: Fredy Boyd M.D. 10/29/2017 11:26 AM Dictated Date/Time: 10/29/2017 11:20 AM
[2017-10-29 11:28] LABS: ALBUMIN 3.3 gm/dl (3.4-5.0); ALT/SGPT 25 U/L (12-78); BLOOD UREA NITROGEN 27 mg/dl (7-18); CALCIUM 8.5 mg/dl (8.5-10.1); CARBON DIOXIDE 34 mmol/L (21-32); CREATININE 1.34 mg/dl (0.60-1.20); GLUCOSE 82 mg/dl (70-99); LIPASE 57 U/L (73-393); POTASSIUM 3.7 mmol/L (3.5-5.1); SODIUM 135 mmol/L (136-145)
[2017-10-29 11:30] LABS: ALKALINE PHOSPHATASE 72 U/L (45-117); AST/SGOT 19 U/L (15-37); PHOSPHORUS 2.8 mg/dl (2.5-4.9); TOTAL PROTEIN 6.7 gm/dl (6.4-8.2)
[2017-10-29] MEDS ORDERED: VANCOMYCIN CONSULT ACTIVE PRN ×2 (11:30→13:29)
[2017-10-29] MEDS ORDERED: LCTX PO (11:36)
[2017-10-29] MEDS ORDERED: VLTG TOP (11:36)
[2017-10-29] MEDS ORDERED: SODIUM CHLORIDE 0.9% 1000ML 1,000 ML IV STA (12:15)
[2017-10-29 12:19] LABS: INFLUENZA B ANTIGEN Neg for Influ B (NEG)
[2017-10-29] MEDS ORDERED: ONDANSETRON 8MG OD TAB SL PRN (13:15)
[2017-10-29] MEDS ORDERED: DICLOFENAC SOD 1% GEL 100 GM TUBE EXT PRN (13:15)
[2017-10-29] MEDS ORDERED: ALUMINUM/MAGNESIUM/SIMETH (MAALOX MAX) 30 ML UDC PO PRN (13:30)
[2017-10-29] MEDS ORDERED: MAGNESIUM HYDROXIDE SUSP 30 ML UDC PO PRN (13:30)
[2017-10-29] MEDS ORDERED: SODIUM CHLORIDE 0.9% 1000ML 1,000 ML IV SCH (13:45)
[2017-10-29] MEDS ORDERED: AZITHROMYCIN 250 MG TAB PO ONE (13:45)
[2017-10-29] MEDS ORDERED: HEPARIN SOD 5000 UNIT/0.5 ML CARP SQ SCH (13:45)
--- NOTE | 2017-10-29 13:47 | History and Physical ---
History & Physical Date & Time of Service: Oct 29, 2017 at 13:15 Chief Complaint: FALL Primary Care Physician: Nidhi Gardner MD History of Present Illness 86-year-old female currently being treated with outpatient intravenous cefepime for Pseudomonas urinary tract infections as mentioned below. The patient presents with a headache and was found have a temperature 38.4. The patient's had an increased cough of weight of yellow colored sputum. Initial evaluation in the ER did not show confirmed pneumonia but she does have an elevated white count of 12.8. Her symptoms are not consistent with encephalitis or meningitis as she has a supple neck. Clear mentation. The patient did have a CT scan of her head and neck which were unremarkable with exception of arthritic change in her neck. In the ER she had blood cultures drawn lactic acid is currently pending and she was given vancomycin and intravenous cefepime. The patient does not notice any increased colostomy output consistent with possible colitis nor current any urinary changes or sore throat her biggest complaint is for cough. Patient has multiple admissions to the hospital with urinary tract infection. Last admission she was referred to a urologist. 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 On October 13 a urine culture grew pansensitive pseudomonas but unfortunately patient has allergy to quinolones. The pt recently was sent home on IV cefepime . This patient does have a past medical history of T2DM- diet controlled, Rheumatoid arthritis, Lupus, OA and recurrent urinary tract infection. Past Medical/Surgical History Medical Problems: (1) Arthritis Status: Chronic (2) Asthma Status: Chronic (3) Cholecystectomy Status: Resolved (4) Chronic back pain Status: Chronic (5) Depression Status: Chronic (6) Diverticulitis Status: Chronic (7) Gastroesophageal reflux disease Status: Chronic (8) Hyperlipidemia Status: Chronic (9) Hypothyroidism Status: Chronic (10) IBS Status: Chronic (11) Impacted cerumen Status: Chronic (12) Lupus Status: Chronic (13) Osteoarthritis Status: Chronic (14) Pituitary adenoma Status: Chronic (15) pituitary gland removal Status: Chronic (16) TIA Status: Chronic (17) Vasovagal syncope Status: Chronic Surgical Problems: (1) H/O: hysterectomy Status: Chronic (2) History of hip replacement Status: Chronic (3) Hx of cholecystectomy Status: Chronic Family History Cancer Diabetes mellitus Gallbladder disease Heart disease Hypertension Kidney disease Kidney stones Seizures Social History Smoking Status: Never Smoker Drug Use: none Marital Status: Housing status: lives alone Occupational Status: retired Immunizations History of Influenza Vaccine: N/A Influenza Vaccine Date: Jul 24, 2007 History of Tetanus Vaccine?: UTD History of Pneumococcal: Yes Pneumococcal Date: May 09, 1990 History of Hepatitis B Vaccine: Yes Hepatitis Immunization Date: May 09, 1985 Multi-Drug Resistant Organisms History of MDRO: No Allergies Coded Allergies: Ciprofloxacin (Verified Allergy, Intermediate, HIVES, 10/29/17) Quinolones (Verified Allergy, Intermediate, HIVES, 10/29/17) Fluticasone (Verified Allergy, Unknown, ADVAIR-UNKNOWN, 10/29/17) Lactose Intolerance (Verified Allergy, Unknown, GI UPSET, 10/29/17) Latex1 -Allergic Contact Dermititis (Verified Allergy, Unknown, RASH, 10/29) Morphine (Verified Allergy, Unknown, NAUSEA AND VOMITING, 10/29/17) Nitrofurantoin (Verified Allergy, Unknown, HIVES, 10/29/17) Salmeterol (Verified Allergy, Unknown, ADVAIR, 10/29/17) Scallop (Verified Allergy, Unknown, THROAT SWELLS, 10/29/17) Celecoxib (Verified Adverse Reaction, Unknown, barretts esophagus, 10/29/17 ) Home Medications Scheduled Ascorbic Acid (Ascorbic Acid), 500 MG PO DAILY Aspirin (Aspirin Ec), 81 MG PO QAM B-Complex Vitamins (B Complex), 1 CAP PO DAILY Cefepime Hcl (Cefepime), 2 GM IV DAILY Cholecalciferol (Vitamin D3), 2,000 UNITS PO DAILY Cranberry (Vaccinium Macrocarp (Cranberry), 400 MG PO DAILY Dexlansoprazole (Dexilant), 60 MG PO BID Diltiazem Hcl Ext Rel (Tiazac), 120 MG PO DAILY Duloxetine Hcl (Cymbalta), 60 MG PO QAM Duloxetine Hcl (Cymbalta), 30 MG PO QAM Fluticasone Propionate (Fluticasone Propionate), 1 SPRAYS NA DAILY Furosemide (Lasix), 40 MG PO QAM Gabapentin (Neurontin), 300 MG PO TID Home O2 Therapy (Oxygen), 3 LITERS NA PRN Hydroxychloroquine Sulfate (Plaquenil), 200 MG PO BID Lactobacillus Acidophilus (Lactinex), 4 TABS PO TIDM Levothyroxine Sodium (Synthroid), 88 MCG PO DAILY Omeprazole (Prilosec), 20 MG PO BID Oxycodone HCl (Oxycontin), 10 MG PO BID Polyethylene Glycol 3350 (Miralax), 17 GM PO BID Prednisone Tab (Prednisone), 12.5 MG PO QAM Quetiapine Fumarate (Seroquel), 100 MG PO HS Scheduled PRN Diclofenac Sod (Voltaren), 1 APPLN TOP DAILY PRN for Pain Ondansetron Odt (Zofran Odt), 8 MG SL Q6H PRN for Nausea Review of Systems ROS: well nourished well developed she currently has a headache No double vision blurry vision or headache is posterior she has no nuchal rigidity No problems with speech or swallowing no sore throat No palpitations, chest pain or pressure No Wheezing or breathing issues but she has had a cough productive of yellow sputum No abdominal pain nausea vomiting diarrhea changes in appetite or weight, her colostomy output has been normal for her No burning urine urine frequency or changes in color No focal joint pain or muscle pain No skin rashes or oral lesions No unusual bruising or bleeding Patient has some mild right CVA angle tenderness but no other focused back pain or numbness or loss of strength No changes in memory or confusion Physical Exam Vital Signs Date Time Temp Pulse Resp B/P (MAP) Pulse Ox O2 Delivery O2 Flow Rate FiO2 10/29/17 13:02 112 10/29/17 12:50 37.3 117 20 90/35 95 Nasal Cannula 4.0 10/29/17 11:42 97 Nasal Cannula 4.0 10/29/17 11:37 121 20 122/58 98 Nasal Cannula 4.0 10/29/17 11:04 121 16 147/115 95 Nasal Cannula 3.0 10/29/17 10:09 38.4 118 24 83/44 80 Room Air 10/29/17 09:53 120 General Appearance: WD/WN (patient appears) Head: normocephalic ( ill), atraumatic Eyes: normal inspection, PERRL, EOMI, sclerae normal Neck: supple, no adenopathy, thyroid normal, no JVD, trachea midline Respiratory/Chest: chest non-tender, lungs clear (she has prolonged expiratory phase almost consistent with what might be COPD she has exposure to secondhand smoke), normal breath sounds Cardiovascular: regular rate, rhythm, no murmur Abdomen/GI: normal bowel sounds, non tender, soft Back: normal inspection, no CVA tenderness, no muscle spasm Extremities/Musculoskelatal: normal inspection, no pedal edema 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, alert, oriented x 3 Skin: normal color, warm/dry, no rash Diagnostics Laboratory Results Results Past 24 Hours Test 10/29/17 10:32 10/29/17 10:52 10/29/17 11:30 Range/Units White Blood Count 12.87 4.8-10.8 K/uL Red Blood Count 3.85 4.2-5.4 M/uL Hemoglobin 11.1 12.0-16.0 g/dL Hematocrit 35.8 37-47 % Mean Corpuscular Volume 93.0 80-100 fL Mean Corpuscular Hemoglobin 28.8 25-34 pg Mean Corpuscular Hemoglobin Concent 31.0 32-36 g/dl Platelet Count 225 130-400 K/uL Mean Platelet Volume 10.0 7.4-10.4 fL Neutrophils (%) (Auto) 77.4 % Lymphocytes (%) (Auto) 8.9 % Monocytes (%) (Auto) 11.7 % Eosinophils (%) (Auto) 0.9 % Basophils (%) (Auto) 0.2 % Neutrophils # (Auto) 9.97 1.4-6.5 K/uL Lymphocytes # (Auto) 1.14 1.2-3.4 K/uL Monocytes # (Auto) 1.51 0.11-0.59 K/uL Eosinophils # (Auto) 0.12 0-0.5 K/uL Basophils # (Auto) 0.02 0-0.2 K/uL RDW Standard Deviation 51.0 36.4-46.3 fL RDW Coefficient of Variation 15.1 11.5-14.5 % Immature Granulocyte % (Auto) 0.9 % Immature Granulocyte # (Auto) 0.11 0.00-0.02 K/uL Prothrombin Time 10.7 9.0-12.0 SECONDS Prothromb Time International Ratio 1.0 0.9-1.1 Activated Partial Thromboplast Time 29.1 21.0-31.0 SECONDS Partial Thromboplastin Ratio 1.1 Sodium Level 135 136-145 mmol/L Potassium Level 3.7 3.5-5.1 mmol/L Chloride Level 96 98-107 mmol/L Carbon Dioxide Level 34 21-32 mmol/L Anion Gap 6.0 3-11 mmol/L Blood Urea Nitrogen 27 7-18 mg/dl Creatinine 1.34 0.60-1.20 mg/dl Est Creatinine Clear Calc Drug Dose 30.3 ml/min Estimated GFR () 42.1 Estimated GFR (Non- 36.3 BUN/Creatinine Ratio 20.4 10-20 Random Glucose 82 70-99 mg/dl Calcium Level 8.5 8.5-10.1 mg/dl Phosphorus Level 2.8 2.5-4.9 mg/dl Magnesium Level 2.2 1.8-2.4 mg/dl Total Bilirubin 0.3 0.2-1 mg/dl Direct Bilirubin < 0.1 0-0.2 mg/dl Aspartate Amino Transf (AST/SGOT) 19 15-37 U/L Alanine Aminotransferase (ALT/SGPT) 25 12-78 U/L Alkaline Phosphatase 72 45-117 U/L Troponin I < 0.015 0-0.045 ng/ml Total Protein 6.7 6.4-8.2 gm/dl Albumin 3.3 3.4-5.0 gm/dl Lipase 57 73-393 U/L Urine Color YELLOW Urine Appearance CLEAR CLEAR Urine pH 5.0 4.5-7.5 Urine Specific [place] 1.021 1.000-1.030 Urine Protein NEG NEG Urine Glucose (UA) NEG NEG Urine Ketones NEG NEG Urine Occult Blood TRACE NEG Urine Nitrite NEG NEG Urine Bilirubin NEG NEG Urine Urobilinogen NEG NEG Urine Leukocyte Esterase SMALL NEG Urine WBC (Auto) 5-10 0-5 /hpf Urine RBC (Auto) 5-10 0-4 /hpf Urine Hyaline Casts (Auto) 10-30 0-5 /lpf Urine Epithelial Cells (Auto) 10-20 0-5 /lpf Urine Bacteria (Auto) NEG NEG Urine Pathogenic Casts 1-5 GRANULAR CASTS 0 /lpf Influenza Type A Antigen Neg for Influ A NEG Influenza Type B Antigen Neg for Influ B NEG Microbiology Results 10/29/17 Blood Culture, Received Pending 10/29/17 Blood Culture, Received Pending Diagnostic Radiology only leukocytosis seen, pending lactic acid CXR normal other (first degree AV block) Impression Assessment and Plan Afebrile female recently discharged on intravenous cefepime for Pseudomonas urinary tract infection presents with a headache and fever 38 4. Initial evaluation does not show any focus signs her of the current infection with exception of a subjective complaint of cough with yellow sputum Fever, the patient will be given intravenous vancomycin and ertapenem. The ertapenem was chosen because for previous cultures showed sensitivity to this. Patient will be given oral azithromycin in the case that this is from bronchitis. Patient had negative flu on intake and blood cultures and urine cultures are currently pending infectious disease will weigh N on antibiotic choice once weekly some more information The patient does have a colostomy and is difficult to tell whether she has diarrhea or not we will not check a C. difficile right now she believes her output is been about the same for her History of restless leg syndrome the patient continues Cymbalta she takes a fairly significant dose of this The patient be placed on stress dose steroids continue her Plaquenil Cardiovascular the patient maintain diltiazem 120 aspirin 81 day Lasix 20 a day For her hypothyroidism Synthroid is continued with a recent TSH showing repletion For sleep Seroquel 100 at bedtime will be given DVT prevention is heparin acute 12 CT had and neck were reviewed as well as chest x-ray without focus signs of other source of infection Level of Care Med/Surg Resuscitation Status FULL RESUSCITATION VTE Prophylaxis Given or contraindicated: Unfractionated heparin SQ
[2017-10-29 16:00] VITALS: BP 103/47; PULSE 99; TEMP 36.9; O2SAT 93
--- NOTE | 2017-10-29 16:12 | Pharmacy Progress Note ---
Pharmacy Antibiotic Consult Date of Service: Oct 29, 2017. Pharmacy Dosing Scope Pharmacy is consulted to initiate Vancomycin IV dosing therapy, order appropriate labs and adjust drug dose/frequency. Subjective The patient is a 86 year old female admitted on Oct 29, 2017 at 13:25. Objective Height (Feet): 5 Height (Inches): 3.00 Weight (Kilograms): 75.000 Lab Results (24hrs): Test 10/29/17 10:32 10/29/17 10:50 10/29/17 10:52 10/29/17 11:30 White Blood Count 12.87 K/uL (4.8-10.8) Red Blood Count 3.85 M/uL (4.2-5.4) Hemoglobin 11.1 g/dL (12.0-16.0) Hematocrit 35.8 % (37-47) Mean Corpuscular Volume 93.0 fL (80-100) Mean Corpuscular Hemoglobin 28.8 pg (25-34) Mean Corpuscular Hemoglobin Concent 31.0 g/dl (32-36) Platelet Count 225 K/uL (130-400) Mean Platelet Volume 10.0 fL (7.4-10.4) Neutrophils (%) (Auto) 77.4 % Lymphocytes (%) (Auto) 8.9 % Monocytes (%) (Auto) 11.7 % Eosinophils (%) (Auto) 0.9 % Basophils (%) (Auto) 0.2 % Neutrophils # (Auto) 9.97 K/uL (1.4-6.5) Lymphocytes # (Auto) 1.14 K/uL (1.2-3.4) Monocytes # (Auto) 1.51 K/uL (0.11-0.59) Eosinophils # (Auto) 0.12 K/uL (0-0.5) Basophils # (Auto) 0.02 K/uL (0-0.2) RDW Standard Deviation 51.0 fL (36.4-46.3) RDW Coefficient of Variation 15.1 % (11.5-14.5) Immature Granulocyte % (Auto) 0.9 % Immature Granulocyte # (Auto) 0.11 K/uL (0.00-0.02) Prothrombin Time 10.7 SECONDS (9.0-12.0) Prothromb Time International Ratio 1.0 (0.9-1.1) Activated Partial Thromboplast Time 29.1 SECONDS (21.0-31.0) Partial Thromboplastin Ratio 1.1 Sodium Level 135 mmol/L (136-145) Potassium Level 3.7 mmol/L (3.5-5.1) Chloride Level 96 mmol/L (98-107) Carbon Dioxide Level 34 mmol/L (21-32) Anion Gap 6.0 mmol/L (3-11) Blood Urea Nitrogen 27 mg/dl (7-18) Creatinine 1.34 mg/dl (0.60-1.20) Est Creatinine Clear Calc Drug Dose 30.3 ml/min Estimated GFR () 42.1 Estimated GFR (Non- 36.3 BUN/Creatinine Ratio 20.4 (10-20) Random Glucose 82 mg/dl (70-99) Calcium Level 8.5 mg/dl (8.5-10.1) Phosphorus Level 2.8 mg/dl (2.5-4.9) Magnesium Level 2.2 mg/dl (1.8-2.4) Total Bilirubin 0.3 mg/dl (0.2-1) Direct Bilirubin < 0.1 mg/dl (0-0.2) Aspartate Amino Transf (AST/SGOT) 19 U/L (15-37) Alanine Aminotransferase (ALT/SGPT) 25 U/L (12-78) Alkaline Phosphatase 72 U/L (45-117) Troponin I < 0.015 ng/ml (0-0.045) Total Protein 6.7 gm/dl (6.4-8.2) Albumin 3.3 gm/dl (3.4-5.0) Lipase 57 U/L (73-393) Bedside Lactic Acid Venous 1.70 mmol/L (0.90-1.70) Urine Color YELLOW Urine Appearance CLEAR (CLEAR) Urine pH 5.0 (4.5-7.5) Urine Specific [place] 1.021 (1.000-1.030) Urine Protein NEG (NEG) Urine Glucose (UA) NEG (NEG) Urine Ketones NEG (NEG) Urine Occult Blood TRACE (NEG) Urine Nitrite NEG (NEG) Urine Bilirubin NEG (NEG) Urine Urobilinogen NEG (NEG) Urine Leukocyte Esterase SMALL (NEG) Urine WBC (Auto) 5-10 /hpf (0-5) Urine RBC (Auto) 5-10 /hpf (0-4) Urine Hyaline Casts (Auto) 10-30 /lpf (0-5) Urine Epithelial Cells (Auto) 10-20 /lpf (0-5) Urine Bacteria (Auto) NEG (NEG) Urine Pathogenic Casts 1-5 GRANULAR CASTS /lpf (0) Influenza Type A Antigen Neg for Influ A (NEG) Influenza Type B Antigen Neg for Influ B (NEG) Micro Results: Item Value Date Time Blood Culture Received 10/29/17 1032 Blood Pending Blood Culture Received 10/29/17 0955 Blood Pending Assessment & Plan ASSESSMENT: * Ms Neal is an 86yo admitted with UTI/?pna * Pertinent PMH includes recurrent UTI (on Cefepime as an outpt for Pseudomonal UTI), immunosuppression, lupus, hx osteo, DM * Patient is febrile, WBC 12.9 PLAN: Vancomycin: * Loading dose: Vancomycin 1500 mg IV X 1 dose, then will re-evaluate tomorrow morning with random level * SCr elevated on admission * Anticipate that q24h dosing may be suitable for patient. * Goal trough level estimate: between 15 - 20 mcg/mL. * Random level has been ordered for: tomorrow with AM labs Ertapenem 1gm IV q24h Azithromycin 500mg PO x1, then 250mg PO daily Pharmacy will continue to follow and will adjust dose/frequency as necessary. Thank you
[2017-10-29] MEDS: HYDROCORTISONE IV 50 MG in SYRINGE 0 ML IV SCH (16:56)
[2017-10-29] MEDS: LACTOBACILLUS ACIDOPHILUS (FLORANEX) TAB PO SCH (16:57)
[2017-10-29] MEDS: GABAPENTIN 300 MG CAP PO SCH ×2 (16:57→21:54)
[2017-10-29] MEDS: ACETAMINOPHEN 325 MG TAB PO PRN (17:34)
[2017-10-29] MEDS: ERTAPENEM IV 1 GM in SODIUM CHLOR 0.9% AD-VAN 50ML 50 ML IV SCH (17:34)
[2017-10-29] MEDS: ONDANSETRON INJ 2 MG/ML 2 ML VIAL IV PRN (17:56)
--- NOTE | 2017-10-29 21:20 | Medical Consult ---
Consultation Date of Consultation: Oct 29, 2017. Attending Physician: Jose Wei M.D. Reason for Consultation: Recurrent infection History of Present Illness 86-year-old female well known to me from recent hospitalization, with history of recurrent urinary tract infections. She was hospitalized because infection with Claudio resistant Pseudomonas aeruginosa. She is completing a planned 10 day course of IV cefepime. She was tolerating antibiotic without apparent difficulty. She was to be seen this morning in the office for evaluation for efficacy of therapy, but was admitted through the emergency department with 1 day history of fever to 38.3, cough, no sputum production, and headache. White count was mildly elevated, lactic acid normal. Cultures are pending. Patient has been started empirically on vancomycin and cefepime. Denies any flank pain or new urinary symptoms. Past Medical/Surgical History Medical Problems: (1) Abdominal pain Status: Acute (2) Altered mental status Status: Acute (3) Anxiety Status: Acute (4) Chronic low back pain Status: Acute (5) COPD (chronic obstructive pulmonary disease) Status: Acute (6) Dehydration Status: Acute (7) Dehydration Status: Acute (8) Drowsiness Status: Acute (9) Failure of outpatient treatment Status: Acute (10) Fever Status: Acute (11) Inability to bear weight Status: Acute (12) Inferior pubic ramus fracture Status: Acute (13) Insomnia Status: Acute (14) Leukocytosis Status: Acute (15) Leukocytosis Status: Acute (16) Leukocytosis Status: Acute (17) Leukocytosis Status: Acute (18) Peripheral edema Status: Acute (19) Pyelonephritis Status: Acute (20) Pyelonephritis Status: Acute (21) Sepsis Status: Acute (22) Stroke-like symptoms Status: Acute (23) Suicidal ideation Status: Acute (24) Urinary frequency Status: Acute (25) UTI (urinary tract infection) Status: Acute (26) Weakness Status: Acute (27) Weakness Status: Acute (28) Weakness Status: Acute (29) Weakness Status: Acute Medical Problems: (1) Altered mental status (2) Ambulatory dysfunction (3) Arthritis (4) Asthma (5) Cholecystectomy (6) Chronic back pain (7) Complicated UTI (urinary tract infection) (8) Depression (9) Diverticulitis (10) Failure of outpatient treatment (11) Fall from ground level (12) fever (13) FUO (fever of unknown origin) (14) Gastroesophageal reflux disease (15) Generalized weakness (16) Hyperlipidemia (17) Hypothyroidism (18) IBS (19) Impacted cerumen (20) Lupus (21) Major depressive disorder, recurrent episode with anxious distress (22) Osteoarthritis (23) Pituitary adenoma (24) pituitary gland removal (25) Sepsis (26) SIRS (systemic inflammatory response syndrome) (27) Slurred speech (28) TIA (29) Urinary tract infection (30) UTI (urinary tract infection) (31) Vasovagal syncope (32) Viral syndrome Surgical Problems: (1) H/O: hysterectomy (2) History of hip replacement (3) Hx of cholecystectomy Family History Cancer Diabetes mellitus Gallbladder disease Heart disease Hypertension Kidney disease Kidney stones Seizures Social History Smoking Status: Never Smoker Drug Use: none Marital Status: Housing Status: lives alone Occupation Status: retired Allergies Coded Allergies: Ciprofloxacin (Verified Allergy, Intermediate, HIVES, 10/29/17) Quinolones (Verified Allergy, Intermediate, HIVES, 10/29/17) Fluticasone (Verified Allergy, Unknown, ADVAIR-UNKNOWN, 10/29/17) Lactose Intolerance (Verified Allergy, Unknown, GI UPSET, 10/29/17) Latex1 -Allergic Contact Dermititis (Verified Allergy, Unknown, RASH, 10/29) Morphine (Verified Allergy, Unknown, NAUSEA AND VOMITING, 10/29/17) Nitrofurantoin (Verified Allergy, Unknown, HIVES, 10/29/17) Salmeterol (Verified Allergy, Unknown, ADVAIR, 10/29/17) Scallop (Verified Allergy, Unknown, THROAT SWELLS, 10/29/17) Celecoxib (Verified Adverse Reaction, Unknown, barretts esophagus, 10/29/17 ) Current Inpatient Medications Current Inpatient Medications Medications (Trade) Dose Ordered Sig/Taye Route Start Time Stop Time Status Last Admin Dose Admin Aspirin (Ecotrin Tab) 81 mg QAM PO 10/30/17 08:00 11/29/17 08:59 Diclofenac Sodium (Voltaren 1% Top Gel) 1 appln DAILY PRN EXT 10/29/17 13:15 11/28/17 13:14 Diltiazem HCl (TIAzac CAP) 120 mg DAILY PO 10/30/17 08:00 11/29/17 08:59 Duloxetine HCl (Cymbalta Cap) 30 mg QAM PO 10/30/17 08:00 11/29/17 08:59 Duloxetine HCl (Cymbalta Cap) 60 mg QAM PO 10/30/17 08:00 11/29/17 08:59 Fluticasone Propionate (Flonase Nasal [place]) 1 sprays DAILY NA 10/30/17 08:00 11/29/17 08:59 Furosemide (Lasix Tab) 40 mg QAM PO 10/30/17 08:00 11/29/17 08:59 Gabapentin (Neurontin Cap) 300 mg TID PO 10/29/17 16:00 11/28/17 15:59 10/29/17 16:57 300 MG Hydroxychloroquine Sulfate (Plaquenil Tab) 200 mg BID PO 10/29/17 20:00 11/28/17 20:59 Lactobacillus Acidophilus (Floranex Tab) 1 tab TIDM PO 10/29/17 17:00 11/28/17 17:59 10/29/17 16:57 1 TAB Levothyroxine Sodium (Synthroid Tab) 88 mcg DAILYBB PO 10/30/17 06:30 11/29/17 06:29 Ondansetron HCl (Zofran Odt) 8 mg Q6H PRN SL 10/29/17 13:15 11/28/17 13:14 Oxycodone HCl (Oxycontin Tab) 10 mg BID PO 10/29/17 20:00 11/12/17 20:59 Quetiapine Fumarate (seroQUEL TAB) 100 mg HS PO 10/29/17 21:00 11/28/17 20:59 Pantoprazole Sodium (Protonix Tab) 40 mg BID PO 10/29/17 20:00 11/28/17 19:59 Polyethylene (Miralax Powder Packet) 17 gm BID PO 10/29/17 20:00 11/28/17 20:59 Acetaminophen (Tylenol Tab) 650 mg Q4H PRN PO 10/29/17 13:30 11/28/17 13:29 10/29/17 17:34 650 MG Al Hydrox/Mg Hydrox/Simethicone (Maalox Max Susp) 15 ml Q4H PRN PO 10/29/17 13:30 11/28/17 13:29 Magnesium Hydroxide (Milk Of Magnesia Susp) 30 ml Q6H PRN PO 10/29/17 13:30 11/28/17 13:29 Ondansetron HCl (Zofran Inj) 4 mg Q6H PRN IV 10/29/17 13:30 11/28/17 13:29 10/29/17 17:56 4 MG Heparin Sodium (Porcine) (Heparin Sq 5000 Unit/0.5ml) 5,000 unit Q12 SQ 10/29/17 21:00 11/28/17 20:59 Miscellaneous Information (Consult) 1 ea UD PRN N/A 10/29/17 13:29 11/28/17 13:28 Ertapenem 1 gm/ Sodium Chloride 50 ml @ 120 mls/hr Q24H IV 10/29/17 18:00 11/08/17 17:59 10/29/17 17:34 120 MLS/HR Hydrocortisone Sodium Succinate 50 mg/Syringe 1 ml @ 4 mls/min Q8H IV 10/29/17 16:00 11/28/17 15:59 10/29/17 16:56 4 MLS/MIN Prednisone (PredniSONE TAB) 12.5 mg QAM PO 10/31/17 08:00 11/30/17 08:59 Sodium Chloride 1,000 ml @ 80 mls/hr [id number] IV 10/29/17 13:45 10/30/17 02:14 10/29/17 16:56 80 MLS/HR Azithromycin (Zithromax Tab) 250 mg QAM PO 10/30/17 08:00 11/05/17 07:59 Review of Systems All systems were reviewed and are negative except as per HPI Physical Exam Date Time Temp Pulse Resp B/P (MAP) Pulse Ox O2 Delivery O2 Flow Rate FiO2 10/29/17 16:00 36.9 99 18 103/47 93 Nasal Cannula 2.0 10/29/17 14:51 105 16 91/40 95 Nasal Cannula 4.0 10/29/17 13:55 104 18 101/41 94 Nasal Cannula 3.0 10/29/17 13:02 112 10/29/17 12:50 37.3 117 20 90/35 95 Nasal Cannula 4.0 10/29/17 11:42 97 Nasal Cannula 4.0 10/29/17 11:37 121 20 122/58 98 Nasal Cannula 4.0 10/29/17 11:04 121 16 147/115 95 Nasal Cannula 3.0 10/29/17 10:09 38.4 118 24 83/44 80 Room Air 10/29/17 09:53 120 General Appearance: WD/WN, no apparent distress Head: normocephalic, atraumatic Eyes: normal inspection, EOMI, sclerae normal ENT: normal ENT inspection, hearing grossly normal, pharynx normal Neck: supple, no adenopathy, thyroid normal, trachea midline Respiratory/Chest: chest non-tender, lungs clear, normal breath sounds, no respiratory distress Cardiovascular: regular rate, rhythm, no gallop, no murmur Abdomen/GI: normal bowel sounds, non tender, soft, no organomegaly Back: normal inspection, no CVA tenderness Extremities/Musculoskelatal: normal inspection, normal capillary refill, non- tender Neurologic/Psych: alert, oriented x 3 Skin: normal color, warm/dry, no rash Lymphatic: no adenopathy Laboratory Results Date/Time Source Procedure Growth Status 10/29/17 10:32 Blood Blood Culture Pending Received 10/29/17 09:55 Blood Blood Culture Pending Received Last 24 Hours Test 10/29/17 10:32 10/29/17 10:50 10/29/17 10:52 10/29/17 11:30 White Blood Count 12.87 K/uL Red Blood Count 3.85 M/uL Hemoglobin 11.1 g/dL Hematocrit 35.8 % Mean Corpuscular Volume 93.0 fL Mean Corpuscular Hemoglobin 28.8 pg Mean Corpuscular Hemoglobin Concent 31.0 g/dl Platelet Count 225 K/uL Mean Platelet Volume 10.0 fL Neutrophils (%) (Auto) 77.4 % Lymphocytes (%) (Auto) 8.9 % Monocytes (%) (Auto) 11.7 % Eosinophils (%) (Auto) 0.9 % Basophils (%) (Auto) 0.2 % Neutrophils # (Auto) 9.97 K/uL Lymphocytes # (Auto) 1.14 K/uL Monocytes # (Auto) 1.51 K/uL Eosinophils # (Auto) 0.12 K/uL Basophils # (Auto) 0.02 K/uL RDW Standard Deviation 51.0 fL RDW Coefficient of Variation 15.1 % Immature Granulocyte % (Auto) 0.9 % Immature Granulocyte # (Auto) 0.11 K/uL Prothrombin Time 10.7 SECONDS Prothromb Time International Ratio 1.0 Activated Partial Thromboplast Time 29.1 SECONDS Partial Thromboplastin Ratio 1.1 Sodium Level 135 mmol/L Potassium Level 3.7 mmol/L Chloride Level 96 mmol/L Carbon Dioxide Level 34 mmol/L Anion Gap 6.0 mmol/L Blood Urea Nitrogen 27 mg/dl Creatinine 1.34 mg/dl Est Creatinine Clear Calc Drug Dose 30.3 ml/min Estimated GFR () 42.1 Estimated GFR (Non- 36.3 BUN/Creatinine Ratio 20.4 Random Glucose 82 mg/dl Calcium Level 8.5 mg/dl Phosphorus Level 2.8 mg/dl Magnesium Level 2.2 mg/dl Total Bilirubin 0.3 mg/dl Direct Bilirubin < 0.1 mg/dl Aspartate Amino Transf (AST/SGOT) 19 U/L Alanine Aminotransferase (ALT/SGPT) 25 U/L Alkaline Phosphatase 72 U/L Troponin I < 0.015 ng/ml Total Protein 6.7 gm/dl Albumin 3.3 gm/dl Lipase 57 U/L Bedside Lactic Acid Venous 1.70 mmol/L Urine Color YELLOW Urine Appearance CLEAR Urine pH 5.0 Urine Specific Centre 1.021 Urine Protein NEG Urine Glucose (UA) NEG Urine Ketones NEG Urine Occult Blood TRACE Urine Nitrite NEG Urine Bilirubin NEG Urine Urobilinogen NEG Urine Leukocyte Esterase SMALL Urine WBC (Auto) 5-10 /hpf Urine RBC (Auto) 5-10 /hpf Urine Hyaline Casts (Auto) 10-30 /lpf Urine Epithelial Cells (Auto) 10-20 /lpf Urine Bacteria (Auto) NEG Urine Pathogenic Casts 1-5 GRANULAR CASTS /lpf Influenza Type A Antigen Neg for Influ A Influenza Type B Antigen Neg for Influ B Test 10/29/17 20:44 Bedside Glucose 133 mg/dl Assessment & Plan 86-year-old female with recurrent urinary tract infection with recent hospitalization for Pseudomonas urinary tract infection completing 10 days of IV cefepime, now with recurrent fever, headache, cough. No obvious pneumonia on chest x-ray. Agree with empiric use of vancomycin and ertapenem pending further culture results. I will adjust antibiotics once these are available. Will follow.
[2017-10-29] MEDS: POLYETHYLENE (MIRALAX) 17 GM PACK PO SCH (21:54)
[2017-10-29] MEDS: OXYCODONE HCL 10 MG TABCR (OXYCONTIN) PO SCH (21:54)
[2017-10-29] MEDS: HYDROXYCHLOROQUINE SULFATE 200 MG TAB PO SCH (21:55)
[2017-10-29] MEDS: QUETIAPINE FUMARATE 100 MG TAB PO SCH (21:55)
[2017-10-29] MEDS: PANTOprazole SOD 40 MG TAB PO SCH (21:56)
[2017-10-29] MEDS: HEPARIN SOD 5000 UNIT/0.5 ML CARP SQ SCH (21:58)
[2017-10-29 23:11] VITALS: BP 123/73; PULSE 96; TEMP 36.9; O2SAT 96
[2017-10-30] MEDS: HYDROCORTISONE IV 50 MG in SYRINGE 0 ML IV SCH ×4 (00:20→23:44)
[2017-10-30 06:02] LABS: HEMATOCRIT 31.3 % (37-47); HEMOGLOBIN 9.6 g/dL (12.0-16.0); MEAN CELL VOLUME 93.7 fL (80-100); MEAN CORPUSCULAR HEMOGLOBIN 28.7 pg (25-34); MEAN CORPUSCULAR HGB CONC 30.7 g/dl (32-36); MEAN PLATELET VOLUME 10.4 fL (7.4-10.4); PLATELET COUNT 190 K/uL (130-400); RED CELL DISTRIBUTION WIDTH CV 15.3 % (11.5-14.5); RED CELL DISTRIBUTION WIDTH SD 52.6 fL (36.4-46.3); WHITE BLOOD COUNT 7.01 K/uL (4.8-10.8)
[2017-10-30] MEDS: LEVOTHYROXINE 88 MCG TAB PO SCH (06:16)
[2017-10-30 06:33] LABS: CALCIUM 7.5 mg/dl (8.5-10.1); POTASSIUM 4.2 mmol/L (3.5-5.1)
[2017-10-30 07:19] VITALS: BP 108/63; PULSE 93; TEMP 36.6; O2SAT 93
[2017-10-30 08:00] VITALS: O2SAT 93
[2017-10-30] MEDS: FLUTICASONE PROPIONATE NA SPR 16 GM BTL SCH (08:00)
[2017-10-30] MEDS: POLYETHYLENE (MIRALAX) 17 GM PACK PO SCH ×2 (08:00→20:51)
[2017-10-30] MEDS: HYDROXYCHLOROQUINE SULFATE 200 MG TAB PO SCH ×2 (08:01→20:51)
[2017-10-30] MEDS: DILTIAZEM HCL 120 MG EXT REL CAP PO SCH (08:01)
[2017-10-30] MEDS: GABAPENTIN 300 MG CAP PO SCH ×3 (08:01→20:51)
[2017-10-30] MEDS: ASPIRIN 81 MG ECTAB PO SCH (08:02)
[2017-10-30] MEDS: LACTOBACILLUS ACIDOPHILUS (FLORANEX) TAB PO SCH ×3 (08:02→16:31)
[2017-10-30] MEDS: FUROSEMIDE 40 MG TAB PO SCH (08:02)
[2017-10-30] MEDS: DULOXETINE (CYMBALTA) 30 MG CAP PO SCH (08:03)
[2017-10-30] MEDS: AZITHROMYCIN 250 MG TAB PO SCH (08:03)
[2017-10-30] MEDS: PANTOprazole SOD 40 MG TAB PO SCH ×2 (08:03→20:51)
[2017-10-30] MEDS: DULOXETINE HCL 60 MG CAP PO SCH (08:03)
[2017-10-30] MEDS: OXYCODONE HCL 10 MG TABCR (OXYCONTIN) PO SCH ×2 (08:08→20:57)
[2017-10-30] MEDS: HEPARIN SOD 5000 UNIT/0.5 ML CARP SQ SCH ×2 (08:12→20:56)
--- NOTE | 2017-10-30 10:18 | Pharmacy Progress Note ---
Pharmacy Abx Dose Progress Nt Date of Service Oct 30, 2017. Pharmacy Dosing Scope The patient is currently receiving the following antimicrobial agents per Pharmacy consult: Vancomycin 1500 mg IV initial loading dose on 10/29/17 Objective Height (Feet): 5 Height (Inches): 3.00 Weight (Kilograms): 75.000 Vital Signs (Past 12Hrs) Vital Signs Past 12 Hours Date Time Temp Pulse Resp B/P (MAP) Pulse Ox O2 Delivery O2 Flow Rate FiO2 10/30/17 07:19 36.6 93 20 108/63 (78) 93 10/30/17 00:00 Nasal Cannula 2.0 10/29/17 23:11 36.9 96 20 123/73 (90) 96 Nasal Cannula 2.0 Lab Results (24Hrs) Laboratory Tests (24 Hours) Test 10/29/17 10:32 10/30/17 05:07 White Blood Count 12.87 K/uL (4.8-10.8) H 7.01 K/uL (4.8-10.8) Red Blood Count 3.85 M/uL (4.2-5.4) L Hemoglobin 11.1 g/dL (12.0-16.0) L Hematocrit 35.8 % (37-47) L Mean Corpuscular Volume 93.0 fL (80-100) Mean Corpuscular Hemoglobin 28.8 pg (25-34) Mean Corpuscular Hemoglobin Concent 31.0 g/dl (32-36) L Platelet Count 225 K/uL (130-400) Mean Platelet Volume 10.0 fL (7.4-10.4) Neutrophils (%) (Auto) 77.4 % Lymphocytes (%) (Auto) 8.9 % Monocytes (%) (Auto) 11.7 % Eosinophils (%) (Auto) 0.9 % Basophils (%) (Auto) 0.2 % Neutrophils # (Auto) 9.97 K/uL (1.4-6.5) H Lymphocytes # (Auto) 1.14 K/uL (1.2-3.4) L Monocytes # (Auto) 1.51 K/uL (0.11-0.59) H Eosinophils # (Auto) 0.12 K/uL (0-0.5) Basophils # (Auto) 0.02 K/uL (0-0.2) Micro Results Date/Time Source Procedure Growth Status 10/29/17 10:32 Blood Blood Culture Pending Received 10/29/17 09:55 Blood Blood Culture Pending Received 10/29/17 21:30 Urine , Clean Catch Urine Culture Pending Received Risk Factors for Resistance * Recurrent UTI (on Cefepime as an outpt for Pseudomonal UTI), immunosuppression , lupus, hx osteo, DM Assessment & Plan Assessment Ms Neal is an 86 yo admitted with UTI/?pna * Pertinent PMH includes recurrent UTI (on Cefepime as an outpatient for Pseudomonal UTI), immunosuppression, lupus, hx osteo, DM * Patient is afebrile, WBC down to 7.0, SCr decreased 1.34---> 1.0 mg/dl since admission Day # 2 of antimicrobial therapy Plan Vancomycin IV * Random level of 9.2 mcg/mL is subtherapeutic. * Initiate maintenance dose of 1250 mg IV every 24 hours * Goal trough level for possible pneumonia: 15 to 20 mcg/mL * Trough level ordered for: 11/01/17 prior to the 1100 hours dose Pharmacy will continue to follow and will adjust dose/frequency as necessary. Thank you.
[2017-10-30] MEDS: VANCOMYCIN INJ 1,250 MG in SODIUM CHLORIDE 0.9% 250ML 250 ML IV SCH (11:32)
[2017-10-30] MEDS ORDERED: GLUCOSE 10 TABS/TUBE PO PRN (12:30)
[2017-10-30] MEDS ORDERED: GLUCOSE 40% GEL 15 GM TUBE PO PRN (12:30)
[2017-10-30] MEDS ORDERED: DEXTROSE 50% 50 ML SYR IV PRN (12:30)
[2017-10-30] MEDS ORDERED: GLUCAGON FOR INJ 1 MG VIAL SQ PRN (12:30)
--- NOTE | 2017-10-30 12:33 | Hospitalist Progress Note ---
Hospitalist Progress Note Date of Service Oct 30, 2017. Subjective Pt evaluation today including: conversation w/ patient, conversation w/ family (at bedside), physical exam, chart review, lab review, review of studies, review of inpatient medication list Pain: None PO Intake: Tolerating PO diet Voiding: no voiding problems Patient reports feeling better compared to yesterday. She still complains of a productive cough with yellowish/green sputum. She states she did have some chills and sweats this morning but is unsure if she had a fever. She still complains of generalized weakness and fatigue, and is especially weak in her legs, causing a recent fall prior to arrival. She states that her abdomen feels distended, but better than yesterday. She has stool in her colostomy bag which appears about normal. The patient denies fevers, chest pain, palpitations , claudication, wheezing, shortness of breath, nausea, vomiting, abdominal pain , dysuria, hematuria, urinary retention, paralysis, numbness and tingling. Additional Comments: See HPI for pertinent positives and negatives. All other systems reviewed and negative. Objective Vital Signs Date Time Temp Pulse Resp B/P (MAP) Pulse Ox O2 Delivery O2 Flow Rate FiO2 10/30/17 08:00 93 Room Air 10/30/17 07:19 36.6 93 20 108/63 (78) 93 10/30/17 00:00 Nasal Cannula 2.0 10/29/17 23:11 36.9 96 20 123/73 (90) 96 Nasal Cannula 2.0 10/29/17 20:00 Nasal Cannula 2.0 10/29/17 16:00 36.9 99 18 103/47 93 Nasal Cannula 2.0 10/29/17 14:51 105 16 91/40 95 Nasal Cannula 4.0 10/29/17 13:55 104 18 101/41 94 Nasal Cannula 3.0 10/29/17 13:02 112 10/29/17 12:50 37.3 117 20 90/35 95 Nasal Cannula 4.0 Physical Exam Notes: General appearance: Well-developed, well-nourished, no apparent distress Head: Normocephalic, atraumatic Eyes: Normal inspection, PERRL, EOMI ENT: Normal ENT inspection, hearing grossly normal, pharynx normal Neck: Supple, no JVD, trachea midline Respiratory/Chest: Lungs clear to auscultation, normal breath sounds, no respiratory distress Cardiovascular: Regular rate & rhythm, no gallop, no murmur Abdomen/GI: +Mildly distended. RLQ mildly TTP. Colostomy LLQ. Normal bowel sounds Extremities/Musculoskeletal: Normal inspection, no calf tenderness, no pedal edema Neurological/Psych: Alert, normal mood/affect, oriented x 3 Skin: Normal color, warm/dry, no rash Laboratory Results Last 24 Hours Test 10/29/17 20:44 10/30/17 05:07 10/30/17 07:26 10/30/17 11:10 Bedside Glucose 133 mg/dl 119 mg/dl 138 mg/dl White Blood Count 7.01 K/uL Red Blood Count 3.34 M/uL Hemoglobin 9.6 g/dL Hematocrit 31.3 % Mean Corpuscular Volume 93.7 fL Mean Corpuscular Hemoglobin 28.7 pg Mean Corpuscular Hemoglobin Concent 30.7 g/dl RDW Standard Deviation 52.6 fL RDW Coefficient of Variation 15.3 % Platelet Count 190 K/uL Mean Platelet Volume 10.4 fL Sodium Level 140 mmol/L Potassium Level 4.2 mmol/L Chloride Level 106 mmol/L Carbon Dioxide Level 29 mmol/L Anion Gap 5.0 mmol/L Blood Urea Nitrogen 21 mg/dl Creatinine 1.00 mg/dl Est Creatinine Clear Calc Drug Dose 40.6 ml/min Estimated GFR () 59.9 Estimated GFR (Non- 51.7 BUN/Creatinine Ratio 20.8 Random Glucose 108 mg/dl Calcium Level 7.5 mg/dl Chemistry Specimen Hemolysis Random Vancomycin Level 9.2 mcg/ml Assessment and Plan 86 y/o female with a history of CAD, HTN, HLD, DM II, anemia of chronic disease , depression/anxiety, fibromyalgia, neuropathy, hypothyroidism, RA, Glasgow's esophagus, and recent pseudomonas UTI who presents with fever and productive cough. Sepsis with unknown etiology, productive cough--improving. Pt was febrile with leukocytosis on admission, now resolved -Admit to med/surg -Afebrile today -Leukocytosis resolved. WBC 7.01 on 10/30, down from 12.87 -Blood cultures pending -Urine culture negative -Obtain sputum culture -Pt w/colostomy, difficult to assess for diarrhea. Will check for C. diff and stool culture -Continue Z-pack for possible bronchitis. Day #2 of 5. -Continue IV vancomycin and ertapenem. Day #2 -Infectious disease consulted, appreciate recs: Continue abx for now pending cultures RLQ pain--only occurs with palpation, mildly tender -Continue to monitor. If pain worsens, consider CT abdomen/pelvis w/oral contrast CAD, HTN, HLD--stable -Continue ASA, diltiazem 120 mg PO qd, Lasix 40 mg PO qd DM II--last HgbA1c 6.4 on 10/16/17 -Insulin sliding scale -Check BSGs q ac and qhs Depression, anxiety, fibromyalgia, neuropathy--stable -Continue Cymbalta 90 mg PO qd, Seroquel 100 mg PO hs, gabapentin 300 mg PO TID Hypothyroidism -Continue Synthroid 88 mcg PO qd RA -Continue Plaquenil 200 mg PO BID, prednisone 10 mg PO qd (recently lowered from 12.5 to 10 mg per outpt records) -Stress dose steroids given acute illness. Continue hydrocortisone 50 mg IV q8h Glasgow's esophagus, esophageal spasm--stable -Continue Protonix BID, diltiazem as above DVT prophylaxis -Heparin 5000 units SC q12h Code Status -Level I, FULL RESUSCITATION STATUS
[2017-10-30 15:04] VITALS: BP 113/65; PULSE 96; TEMP 36.9; O2SAT 94
[2017-10-30] MEDS: INSULIN ASPART 100 UNITS/ML 3 ML PEN SC SCH ×2 (16:30→20:57)
[2017-10-30] MEDS: ERTAPENEM IV 1 GM in SODIUM CHLOR 0.9% AD-VAN 50ML 50 ML IV SCH (18:54)
[2017-10-30] MEDS: QUETIAPINE FUMARATE 100 MG TAB PO SCH (20:51)
[2017-10-30] MEDS: VANCOMYCIN HCL 125 MG/2.5ML SOLN PO SCH (21:08)
[2017-10-30] MEDS: RASPBERRY SYRUP 5 ML UDP PO SCH (21:08)
[2017-10-30 23:38] VITALS: BP 123/57; PULSE 90; TEMP 36.7; O2SAT 92
[2017-10-31 00:01] VITALS: O2SAT 92
[2017-10-31] MEDS: ONDANSETRON INJ 2 MG/ML 2 ML VIAL IV PRN ×3 (01:42→21:13)
[2017-10-31] MEDS: VANCOMYCIN HCL 125 MG/2.5ML SOLN PO SCH ×4 (02:57→20:59)
[2017-10-31] MEDS: RASPBERRY SYRUP 5 ML UDP PO SCH ×4 (02:57→20:59)
[2017-10-31] MEDS: LEVOTHYROXINE 88 MCG TAB PO SCH (06:01)
[2017-10-31 06:33] LABS: HEMATOCRIT 32.6 % (37-47); MEAN CELL VOLUME 93.1 fL (80-100); MEAN CORPUSCULAR HEMOGLOBIN 28.6 pg (25-34); MEAN CORPUSCULAR HGB CONC 30.7 g/dl (32-36); MEAN PLATELET VOLUME 9.9 fL (7.4-10.4); PLATELET COUNT 181 K/uL (130-400); RED CELL DISTRIBUTION WIDTH CV 15.1 % (11.5-14.5); RED CELL DISTRIBUTION WIDTH SD 51.5 fL (36.4-46.3); WHITE BLOOD COUNT 5.17 K/uL (4.8-10.8)
[2017-10-31 06:56] LABS: CALCIUM 8.4 mg/dl (8.5-10.1); CREATININE 0.9 mg/dl (0.60-1.20); POTASSIUM 3.7 mmol/L (3.5-5.1)
[2017-10-31 07:07] VITALS: BP 128/76; PULSE 80; TEMP 36.6; O2SAT 96
[2017-10-31] MEDS: HEPARIN SOD 5000 UNIT/0.5 ML CARP SQ SCH ×2 (08:32→21:07)
[2017-10-31] MEDS: HYDROCORTISONE IV 50 MG in SYRINGE 0 ML IV SCH ×3 (08:33→23:19)
[2017-10-31] MEDS: ASPIRIN 81 MG ECTAB PO SCH (08:34)
[2017-10-31] MEDS: OXYCODONE HCL 10 MG TABCR (OXYCONTIN) PO SCH ×2 (08:34→21:14)
[2017-10-31] MEDS: DULOXETINE HCL 60 MG CAP PO SCH (08:34)
[2017-10-31] MEDS: DULOXETINE (CYMBALTA) 30 MG CAP PO SCH (08:35)
[2017-10-31] MEDS: LACTOBACILLUS ACIDOPHILUS (FLORANEX) TAB PO SCH ×3 (08:35→16:41)
[2017-10-31] MEDS: AZITHROMYCIN 250 MG TAB PO SCH (08:35)
[2017-10-31] MEDS: GABAPENTIN 300 MG CAP PO SCH ×3 (08:35→21:00)
[2017-10-31] MEDS: DILTIAZEM HCL 120 MG EXT REL CAP PO SCH (08:36)
[2017-10-31] MEDS: FUROSEMIDE 40 MG TAB PO SCH (08:36)
[2017-10-31] MEDS: PANTOprazole SOD 40 MG TAB PO SCH ×2 (08:36→21:00)
[2017-10-31] MEDS: HYDROXYCHLOROQUINE SULFATE 200 MG TAB PO SCH ×2 (08:36→21:03)
[2017-10-31] MEDS: FLUTICASONE PROPIONATE NA SPR 16 GM BTL SCH (08:39)
[2017-10-31] MEDS: POLYETHYLENE (MIRALAX) 17 GM PACK PO SCH ×2 (08:39→21:00)
[2017-10-31] MEDS: INSULIN ASPART 100 UNITS/ML 3 ML PEN SC SCH ×4 (08:47→21:01)
[2017-10-31] MEDS: VANCOMYCIN INJ 1,250 MG in SODIUM CHLORIDE 0.9% 250ML 250 ML IV SCH (10:40)
[2017-10-31] MEDS: ACETAMINOPHEN 325 MG TAB PO PRN ×2 (10:47→23:17)
--- NOTE | 2017-10-31 12:34 | Progress Note ---
Subjective Date of Service: Oct 31, 2017. Subjective Pt evaluation today including: conversation w/ patient, physical exam, chart review, lab review, conversation w/ [employer] [facility] consultant Voiding: no voiding problems She still complains of generalized weakness and fatigue, and is especially weak in her legs, causing a recent fall prior to arrival. She states that her abdomen feels distended, but better than yesterday. She has stool in her colostomy bag which appears about normal. The patient denies fevers, chest pain , palpitations, claudication, wheezing, shortness of breath, nausea, vomiting, abdominal pain, dysuria, hematuria, urinary retention, paralysis, numbness and tingling. Problem List Medical Problems: (1) Abdominal pain Status: Acute (2) Altered mental status Status: Acute (3) Anxiety Status: Acute (4) Chronic low back pain Status: Acute (5) COPD (chronic obstructive pulmonary disease) Status: Acute (6) Dehydration Status: Acute (7) Dehydration Status: Acute (8) Drowsiness Status: Acute (9) Failure of outpatient treatment Status: Acute (10) Fever Status: Acute (11) Inability to bear weight Status: Acute (12) Inferior pubic ramus fracture Status: Acute (13) Insomnia Status: Acute (14) Leukocytosis Status: Acute (15) Leukocytosis Status: Acute (16) Leukocytosis Status: Acute (17) Leukocytosis Status: Acute (18) Peripheral edema Status: Acute (19) Pyelonephritis Status: Acute (20) Pyelonephritis Status: Acute (21) Sepsis Status: Acute (22) Stroke-like symptoms Status: Acute (23) Suicidal ideation Status: Acute (24) Urinary frequency Status: Acute (25) UTI (urinary tract infection) Status: Acute (26) Weakness Status: Acute (27) Weakness Status: Acute (28) Weakness Status: Acute (29) Weakness Status: Acute Review of Systems Constitutional: + weakness, No fever, No chills Respiratory: + cough Cardiac: No chest pain Psychiatric: No depression symptoms All Other Systems: Reviewed and Negative Medications Medications (Trade) Dose Ordered Sig/Taye Route Start Time Stop Time Status Last Admin Dose Admin Prednisone (PredniSONE TAB) 10 mg QAM PO 10/31/17 08:00 11/30/17 08:59 10/31/17 08:34 10 MG Insulin Aspart (novoLOG ASPART) SLIDING SCALE G... ACHS SC 1/20/18 16:30 11/29/17 16:29 10/31/17 08:47 5 UNITS Vancomycin HCl (Vancomycin Oral Soln) 125 mg Q6H PO 10/30/17 20:30 11/13/17 20:29 10/31/17 08:48 125 MG Raspberry (Raspberry Syrup 5ml Cup) 5 ml Q6H PO 10/30/17 20:30 11/13/17 20:29 10/31/17 08:48 5 ML Objective Vital Signs Date Time Temp Pulse Resp B/P (MAP) Pulse Ox O2 Delivery O2 Flow Rate FiO2 10/31/17 08:00 Room Air 10/31/17 07:07 36.6 80 20 128/76 (93) 96 10/31/17 00:01 92 Room Air 10/30/17 23:38 36.7 90 20 123/57 (79) 92 Room Air 10/30/17 16:00 Room Air 10/30/17 15:04 36.9 96 18 113/65 (81) 94 Physical Exam Comments: General appearance: Well-developed, well-nourished, no apparent distress Head: Normocephalic, atraumatic Eyes: Normal inspection, PERRL, EOMI ENT: Normal ENT inspection, hearing grossly normal, pharynx normal Neck: Supple, no JVD, trachea midline Respiratory/Chest: Lungs clear to auscultation, normal breath sounds, no respiratory distress Cardiovascular: Regular rate & rhythm, no gallop, no murmur Abdomen/GI: +Mildly distended. colostomy LLQ. Normal bowel sounds Extremities/Musculoskeletal: Normal inspection, no calf tenderness, no pedal edema Neurological/Psych: Alert, normal mood/affect, oriented x 3 Skin: Normal color, warm/dry, no rash Laboratory Results Last 24 Hours Test 10/30/17 16:16 10/30/17 20:02 10/31/17 06:09 10/31/17 07:16 Bedside Glucose 118 mg/dl 181 mg/dl 126 mg/dl White Blood Count 5.17 K/uL Red Blood Count 3.50 M/uL Hemoglobin 10.0 g/dL Hematocrit 32.6 % Mean Corpuscular Volume 93.1 fL Mean Corpuscular Hemoglobin 28.6 pg Mean Corpuscular Hemoglobin Concent 30.7 g/dl RDW Standard Deviation 51.5 fL RDW Coefficient of Variation 15.1 % Platelet Count 181 K/uL Mean Platelet Volume 9.9 fL Sodium Level 141 mmol/L Potassium Level 3.7 mmol/L Chloride Level 103 mmol/L Carbon Dioxide Level 30 mmol/L Anion Gap 7.0 mmol/L Blood Urea Nitrogen 13 mg/dl Creatinine 0.90 mg/dl Est Creatinine Clear Calc Drug Dose 45.1 ml/min Estimated GFR () 68.1 Estimated GFR (Non- 58.7 BUN/Creatinine Ratio 14.6 Random Glucose 125 mg/dl Calcium Level 8.4 mg/dl Assessment and Plan 86 y/o female with a history of CAD, HTN, HLD, DM II, anemia of chronic disease , depression/anxiety, fibromyalgia, neuropathy, hypothyroidism, RA, Glasgow's esophagus, and recent pseudomonas UTI who presents with fever and productive cough. Sepsis possible secondary to c diff. Pt was febrile with leukocytosis on admission, now resolved -Afebrile , c-diff pos -Leukocytosis resolved. -Blood cultures negative -Urine culture negative -Obtain sputum culture if possible -Pt w/colostomy, difficult to assess for diarrhea. stool culture pending -Continue Z-pack for possible bronchitis. Day #3 of 5. -Continue IV vancomycin and ertapenem. Day #3 -Infectious disease consulted, appreciate input RLQ pain--only occurs with palpation, mildly tender -Continue to monitor. If pain worsens, consider CT abdomen/pelvis w/oral contrast CAD, HTN, HLD--stable -Continue ASA, diltiazem 120 mg PO qd, Lasix 40 mg PO qd DM II--last HgbA1c 6.4 on 10/16/17 -Insulin sliding scale -Check BSGs q ac and qhs Depression, anxiety, fibromyalgia, neuropathy--stable -Continue Cymbalta 90 mg PO qd, Seroquel 100 mg PO hs, gabapentin 300 mg PO TID Hypothyroidism -Continue Synthroid 88 mcg PO qd RA -Continue Plaquenil 200 mg PO BID, prednisone 10 mg PO qd (recently lowered from 12.5 to 10 mg per outpt records) -Stress dose steroids given acute illness. Continue hydrocortisone 50 mg IV q8h Glasgow's esophagus, esophageal spasm--stable -Continue Protonix BID, diltiazem as above DVT prophylaxis -Heparin 5000 units SC q12h Code Status please have PT/OT come evaluate patient. Continued [facility] stay due to: multiple IV medications needed Discharge planning: home with home health
[2017-10-31 15:24] VITALS: BP 122/66; PULSE 81; TEMP 36.5; O2SAT 96
[2017-10-31 16:00] VITALS: O2SAT 96
[2017-10-31] MEDS ORDERED: NURSING DECISION MEDICATION ORDER SCH (17:15)
[2017-10-31] MEDS: ERTAPENEM IV 1 GM in SODIUM CHLOR 0.9% AD-VAN 50ML 50 ML IV SCH (18:20)
[2017-10-31] MEDS ORDERED: MICONAZOLE NITRATE POWDER 43 GM EXT PRN (19:15)
[2017-10-31] MEDS: QUETIAPINE FUMARATE 100 MG TAB PO SCH (21:02)
[2017-10-31 23:27] VITALS: BP 150/74; PULSE 80; TEMP 36.7; O2SAT 97
[2017-11-01] VITALS: O2SAT 96
[2017-11-01] MEDS: RASPBERRY SYRUP 5 ML UDP PO SCH ×4 (02:28→21:00)
[2017-11-01] MEDS: VANCOMYCIN HCL 125 MG/2.5ML SOLN PO SCH ×4 (02:28→21:00)
[2017-11-01] MEDS: LEVOTHYROXINE 88 MCG TAB PO SCH (06:12)
[2017-11-01 06:55] VITALS: BP 171/72; PULSE 84; TEMP 36.6; O2SAT 96
[2017-11-01 07:00] LABS: HEMATOCRIT 32.6 % (37-47); HEMOGLOBIN 10.1 g/dL (12.0-16.0); MEAN CELL VOLUME 92.4 fL (80-100); MEAN CORPUSCULAR HEMOGLOBIN 28.6 pg (25-34); PLATELET COUNT 191 K/uL (130-400); RED CELL DISTRIBUTION WIDTH CV 14.9 % (11.5-14.5); RED CELL DISTRIBUTION WIDTH SD 50.5 fL (36.4-46.3)
[2017-11-01 07:26] LABS: CALCIUM 8.6 mg/dl (8.5-10.1); CREATININE 0.92 mg/dl (0.60-1.20); POTASSIUM 3.4 mmol/L (3.5-5.1)
[2017-11-01] MEDS: PANTOprazole SOD 40 MG TAB PO SCH ×2 (08:33→21:01)
[2017-11-01] MEDS: LACTOBACILLUS ACIDOPHILUS (FLORANEX) TAB PO SCH ×3 (08:33→16:58)
[2017-11-01] MEDS: FUROSEMIDE 40 MG TAB PO SCH (08:33)
[2017-11-01] MEDS: ASPIRIN 81 MG ECTAB PO SCH (08:34)
[2017-11-01] MEDS: DULOXETINE HCL 60 MG CAP PO SCH (08:34)
[2017-11-01] MEDS: HYDROXYCHLOROQUINE SULFATE 200 MG TAB PO SCH ×2 (08:34→21:00)
[2017-11-01] MEDS: GABAPENTIN 300 MG CAP PO SCH ×3 (08:34→21:00)
[2017-11-01] MEDS: AZITHROMYCIN 250 MG TAB PO SCH (08:34)
[2017-11-01] MEDS: DILTIAZEM HCL 120 MG EXT REL CAP PO SCH (08:34)
[2017-11-01] MEDS: DULOXETINE (CYMBALTA) 30 MG CAP PO SCH (08:35)
[2017-11-01] MEDS: FLUTICASONE PROPIONATE NA SPR 16 GM BTL SCH (08:35)
[2017-11-01] MEDS: POLYETHYLENE (MIRALAX) 17 GM PACK PO SCH ×2 (08:36→20:58)
[2017-11-01] MEDS: INSULIN ASPART 100 UNITS/ML 3 ML PEN SC SCH ×4 (08:41→21:14)
[2017-11-01] MEDS: HEPARIN SOD 5000 UNIT/0.5 ML CARP SQ SCH ×2 (08:42→21:15)
[2017-11-01] MEDS: HYDROCORTISONE IV 50 MG in SYRINGE 0 ML IV SCH ×2 (08:43→16:58)
[2017-11-01] MEDS: ONDANSETRON INJ 2 MG/ML 2 ML VIAL IV PRN (08:43)
[2017-11-01] MEDS: OXYCODONE HCL 10 MG TABCR (OXYCONTIN) PO SCH ×2 (08:43→21:16)
[2017-11-01] MEDS ORDERED: VANCOMYCIN TROUGH ONE (10:30)
[2017-11-01] MEDS: VANCOMYCIN INJ 1,250 MG in SODIUM CHLORIDE 0.9% 250ML 250 ML IV SCH (11:26)
--- NOTE | 2017-11-01 11:42 | Pharmacy Progress Note ---
Pharmacy Abx Dose Progress Nt Date of Service Nov 01, 2017. Pharmacy Dosing Scope The patient is currently receiving the following antimicrobial agents per Pharmacy consult: Vancomycin 1250mg q24h Objective Height (Feet): 5 Height (Inches): 3.00 Weight (Kilograms): 75.000 Vital Signs (Past 12Hrs) Vital Signs Past 12 Hours Date Time Temp Pulse Resp B/P (MAP) Pulse Ox O2 Delivery O2 Flow Rate FiO2 11/01/17 06:55 36.6 84 20 171/72 (105) 96 Room Air 11/01/17 00:00 96 Room Air Lab Results (24Hrs) Laboratory Tests (24 Hours) Test 11/01/17 06:20 White Blood Count 5.40 K/uL (4.8-10.8) Micro Results Date/Time Source Procedure Growth Status 10/29/17 10:32 Blood Blood Culture - Preliminary NO GROWTH TO DATE. Resulted 10/29/17 09:55 Blood Blood Culture - Preliminary NO GROWTH TO DATE. Resulted 10/30/17 13:50 Stool C.difficile Toxin B Gene (PCR) - Final Positive for C. difficile toxin B gene Complete 10/30/17 13:50 Stool Shiga Toxin Test - Preliminary No E. Coli shiga toxin 1 or shiga tox... Resulted 10/30/17 13:50 Stool Stool Culture - Preliminary NO SALMONELLA ISOLATED TO DATE,... Resulted 10/29/17 21:30 Urine , Clean Catch Urine Culture - Final MORE THAN THREE TYPES OF ORGANISMS FL... Complete Assessment & Plan Assessment 86yo F h/o recent pseudomonal UTI (treated with Cefepime) p/w fever. C.diff positive (on PO vanco). Currently she is afebrile, leukocytosis resolved. UC negative. Plan Today's trough subtherapeutic 11.2mcg/mL, prior to Css. Will increase dosing interval from q24--->q18 in an effort to increase trough. Renal fxn has been stable for previous 72hrs, habitus not indicative of vancomycin accumulation. UCx negative. CXR no obvious PNA. Vanco trough ordered for 11/03/17 @1630 Goal trough for UTI vs Pulmonary source: 15-20mcg/mL Pharmacy will continue to follow and will adjust dose/frequency as necessary. Thank you.
--- NOTE | 2017-11-01 13:50 | Progress Note ---
Subjective Date of Service: Nov 01, 2017. Subjective Pt evaluation today including: conversation w/ patient, physical exam, chart review, lab review, review of inpatient medication list Problem List Medical Problems: (1) Abdominal pain Status: Acute (2) Altered mental status Status: Acute (3) Anxiety Status: Acute (4) Chronic low back pain Status: Acute (5) COPD (chronic obstructive pulmonary disease) Status: Acute (6) Dehydration Status: Acute (7) Dehydration Status: Acute (8) Drowsiness Status: Acute (9) Failure of outpatient treatment Status: Acute (10) Fever Status: Acute (11) Inability to bear weight Status: Acute (12) Inferior pubic ramus fracture Status: Acute (13) Insomnia Status: Acute (14) Leukocytosis Status: Acute (15) Leukocytosis Status: Acute (16) Leukocytosis Status: Acute (17) Leukocytosis Status: Acute (18) Peripheral edema Status: Acute (19) Pyelonephritis Status: Acute (20) Pyelonephritis Status: Acute (21) Sepsis Status: Acute (22) Stroke-like symptoms Status: Acute (23) Suicidal ideation Status: Acute (24) Urinary frequency Status: Acute (25) UTI (urinary tract infection) Status: Acute (26) Weakness Status: Acute (27) Weakness Status: Acute (28) Weakness Status: Acute (29) Weakness Status: Acute Review of Systems Constitutional: No see HPI, No fever, No chills, No sweats, No weight loss, No weakness, No fatigue, No problem reported Eyes: No see HPI, No worsening of vision, No eye pain, No redness, No discharge , No diplopia, No problem reported ENT: No see HPI, No hearing loss, No unusual epistaxis, No nasal symptoms, No sore throat, No tinnitus, No dental problems, No trouble swallowing, No problem reported Respiratory: No see HPI, No cough, No sputum, No wheezing, No shortness of breath, No dyspnea on exertion, No dyspnea at rest, No hemoptysis, No problem reported Cardiac: No see HPI, No chest pain, No orthopnea, No PND, No edema, No claudication, No palpitations, No problem reported Abdomen: No see HPI, No pain, No nausea, No vomiting, No diarrhea, No constipation, No GI bleeding, No problem reported Musculoskeletal: No see HPI, No joint pain, No muscle pain, No swelling, No calf pain, No problem reported Neurologic: No see HPI, No memory loss, No paralysis, No weakness, No numbness/ tingling, No vertigo, No balance problems, No problem reported Psychiatric: No see HPI, No depression symptoms, No anhedonism, No anxiety, No insomnia, No substance abuse, No problem reported Heme: No see HPI, No abnormal bleeding/bruising, No clotting problems, No swollen lymph nodes, No night sweats, No problem reported Endo: No see HPI, No fatigue, No excessive thirst, No excessive urination, No problem reported Skin: No see HPI, No rash, No itch, No new/changing skin lesions, No color change, No bleeding, No problem reported Medications Current Inpatient Medications Medications (Trade) Dose Ordered Sig/Tyae Route Start Time Stop Time Status Last Admin Dose Admin Aspirin (Ecotrin Tab) 81 mg QAM PO 10/30/17 08:00 11/29/17 08:59 11/01/17 08:34 81 MG Diclofenac Sodium (Voltaren 1% Top Gel) 1 appln DAILY PRN EXT 10/29/17 13:15 11/28/17 13:14 Diltiazem HCl (TIAzac CAP) 120 mg DAILY PO 10/30/17 08:00 11/29/17 08:59 11/01/17 08:34 120 MG Duloxetine HCl (Cymbalta Cap) 30 mg QAM PO 10/30/17 08:00 11/29/17 08:59 11/01/17 08:35 30 MG Duloxetine HCl (Cymbalta Cap) 60 mg QAM PO 10/30/17 08:00 11/29/17 08:59 11/01/17 08:34 60 MG Fluticasone Propionate (Flonase Nasal [place]) 1 sprays DAILY NA 10/30/17 08:00 11/29/17 08:59 11/01/17 08:35 1 SPRAYS Furosemide (Lasix Tab) 40 mg QAM PO 10/30/17 08:00 11/29/17 08:59 11/01/17 08:33 40 MG Gabapentin (Neurontin Cap) 300 mg TID PO 10/29/17 16:00 11/28/17 15:59 11/01/17 13:33 300 MG Hydroxychloroquine Sulfate (Plaquenil Tab) 200 mg BID PO 10/29/17 20:00 11/28/17 20:59 11/01/17 08:34 200 MG Lactobacillus Acidophilus (Floranex Tab) 1 tab TIDM PO 10/29/17 17:00 11/28/17 17:59 11/01/17 13:33 1 TAB Levothyroxine Sodium (Synthroid Tab) 88 mcg DAILYBB PO 10/30/17 06:30 11/29/17 06:29 11/01/17 06:12 88 MCG Ondansetron HCl (Zofran Odt) 8 mg Q6H PRN SL 10/29/17 13:15 11/28/17 13:14 Oxycodone HCl (Oxycontin Tab) 10 mg BID PO 10/29/17 20:00 11/12/17 20:59 11/01/17 08:43 10 MG Quetiapine Fumarate (seroQUEL TAB) 100 mg HS PO 10/29/17 21:00 11/28/17 20:59 10/31/17 21:02 100 MG Pantoprazole Sodium (Protonix Tab) 40 mg BID PO 10/29/17 20:00 11/28/17 19:59 11/01/17 08:33 40 MG Polyethylene (Miralax Powder Packet) 17 gm BID PO 10/29/17 20:00 11/28/17 20:59 10/31/17 21:00 17 GM Acetaminophen (Tylenol Tab) 650 mg Q4H PRN PO 10/29/17 13:30 11/28/17 13:29 10/31/17 23:17 650 MG Al Hydrox/Mg Hydrox/Simethicone (Maalox Max Susp) 15 ml Q4H PRN PO 10/29/17 13:30 11/28/17 13:29 Magnesium Hydroxide (Milk Of Magnesia Susp) 30 ml Q6H PRN PO 10/29/17 13:30 11/28/17 13:29 Ondansetron HCl (Zofran Inj) 4 mg Q6H PRN IV 10/29/17 13:30 11/28/17 13:29 11/01/17 08:43 4 MG Heparin Sodium (Porcine) (Heparin Sq 5000 Unit/0.5ml) 5,000 unit Q12 SQ 10/29/17 21:00 11/28/17 20:59 11/01/17 08:42 5,000 UNIT Miscellaneous Information (Consult) 1 ea UD PRN N/A 10/29/17 13:29 11/28/17 13:28 Ertapenem 1 gm/ Sodium Chloride 50 ml @ 120 mls/hr Q24H IV 10/29/17 18:00 11/08/17 17:59 10/31/17 18:20 120 MLS/HR Hydrocortisone Sodium Succinate 50 mg/Syringe 1 ml @ 4 mls/min Q8H IV 10/29/17 16:00 11/28/17 15:59 11/01/17 08:43 4 MLS/MIN Azithromycin (Zithromax Tab) 250 mg QAM PO 10/30/17 08:00 11/05/17 07:59 11/01/17 08:34 250 MG Heparin Sodium (Porcine) (Heparin 10 Unit/ ml 5 ml Flush) 5 ml PRN PRN FLUSH 10/30/17 01:30 11/29/17 01:29 11/01/17 08:43 5 ML Vancomycin HCl 1250 mg/Sodium Chloride 275 ml @ 125 mls/hr DAILY@1100 IV 10/30/17 11:00 11/01/17 15:00 11/01/17 11:26 125 MLS/HR Prednisone (PredniSONE TAB) 10 mg QAM PO 10/31/17 08:00 11/30/17 08:59 11/01/17 08:34 10 MG Glucose (Glucose 40% Gel) 15-30 GRAMS 15 GRAMS... UD PRN PO 10/30/17 12:30 11/29/17 12:29 Glucose (Glucose Chew Tab) 4-8 Tablets 4 Tabl... UD PRN PO 10/30/17 12:30 11/29/17 12:29 Dextrose (Dextrose 50% 50ML Syringe) 25-50ML OF 50% DW IV FOR... UD PRN IV 10/30/17 12:30 11/29/17 12:29 Glucagon (Glucagon Inj) 1 mg UD PRN SQ 10/30/17 12:30 11/29/17 12:29 Insulin Aspart (novoLOG ASPART) SLIDING SCALE G... ACHS SC 10/30/17 16:30 11/29/17 16:29 11/01/17 08:41 4 UNITS Vancomycin HCl (Vancomycin Oral Soln) 125 mg Q6H PO 10/30/17 20:30 11/13/17 20:29 11/01/17 13:33 125 MG Raspberry (Raspberry Syrup 5ml Cup) 5 ml Q6H PO 10/30/17 20:30 11/13/17 20:29 11/01/17 13:33 5 ML Miconazole Nitrate (Desenex Powder) 1 appln PRN PRN EXT 10/31/17 19:15 11/30/17 19:14 Vancomycin HCl 1250 mg/Sodium Chloride 275 ml @ 125 mls/hr Q18H IV 11/02/17 05:00 11/12/17 04:59 Objective Vital Signs Date Time Temp Pulse Resp B/P (MAP) Pulse Ox O2 Delivery O2 Flow Rate FiO2 11/01/17 08:15 Room Air 11/01/17 06:55 36.6 84 20 171/72 (105) 96 Room Air 11/01/17 00:00 96 Room Air 10/31/17 23:27 36.7 80 20 150/74 (99) 97 Room Air 10/31/17 16:00 96 Room Air 10/31/17 15:24 36.5 81 20 122/66 (84) 96 Physical Exam General Appearance: WD/WN, no apparent distress Eyes: normal inspection, EOMI ENT: normal ENT inspection, hearing grossly normal Neck: supple Respiratory/Chest: chest non-tender, lungs clear, normal breath sounds, no respiratory distress, no accessory muscle use Cardiovascular: regular rate, rhythm, no edema, no gallop, no JVD, no murmur Abdomen: normal bowel sounds, non tender, soft, no organomegaly, no pulsatile mass Extremities: normal range of motion, non-tender, normal inspection, no pedal edema Neurologic/Psychiatric: [employer] II-XII nml as tested, no motor/sensory deficits, alert, normal mood/affect, oriented x 3 Skin: normal color, warm/dry, no rash Laboratory Results Last 24 Hours Test 10/31/17 16:04 10/31/17 19:58 11/01/17 06:20 11/01/17 07:22 Bedside Glucose 140 mg/dl 156 mg/dl 125 mg/dl White Blood Count 5.40 K/uL Red Blood Count 3.53 M/uL Hemoglobin 10.1 g/dL Hematocrit 32.6 % Mean Corpuscular Volume 92.4 fL Mean Corpuscular Hemoglobin 28.6 pg Mean Corpuscular Hemoglobin Concent 31.0 g/dl RDW Standard Deviation 50.5 fL RDW Coefficient of Variation 14.9 % Platelet Count 191 K/uL Mean Platelet Volume 10.0 fL Sodium Level 140 mmol/L Potassium Level 3.4 mmol/L Chloride Level 103 mmol/L Carbon Dioxide Level 29 mmol/L Anion Gap 9.0 mmol/L Blood Urea Nitrogen 15 mg/dl Creatinine 0.92 mg/dl Est Creatinine Clear Calc Drug Dose 44.1 ml/min Estimated GFR () 66.3 Estimated GFR (Non- 57.2 BUN/Creatinine Ratio 16.1 Random Glucose 125 mg/dl Calcium Level 8.6 mg/dl Test 11/01/17 10:22 Vancomycin Level Trough 11.2 mcg/ml Assessment and Plan 86-year-old female with past medical history of essential hypertension, dyslipidemia, diabetes mellitus type 2, anemia of chronic diseases, depression/ anxiety/fibromyalgia, coronary artery disease, hypothyroidism, rheumatoid arthritis, Glasgow's esophagus and neuropathy presented to the hospital recently with Pseudomonas UTI status post 10 days course of cefepime. Patient to presented to the hospital again with recurrent fever and cough empirically started on Invanz and Vanco, ID consult appreciated, patient was found to have positive C. difficile and was started on oral vancomycin. Assessment C. difficile Suspected healthcare associated pneumonia Sepsis present on admission likely secondary to C. difficile Right lower quadrant pain, improved CAD Hypertension Diabetes mellitus type 2 Rheumatoid arthritis Depression/and exactly/fibromyalgia Hypothyroidism Glasgow's Esophagus Assessment We'll contact Dr. Wilson regarding antibiotic therapy, maybe vancomycin and Invanz can be discontinued Continue vancomycin oral Blood cultures/urine cultures are so far negative Colostomy acute diarrhea Continue diltiazem/Lasix/aspirin Continue Synthroid/Plaquenil/prednisone Continue Protonix twice a day Insulin sliding scale Heparin for DVT prophylaxis Start PT/OT Continued [facility] stay due to: multiple IV medications needed Discharge planning: home with home health Continued [facility] stay due to: multiple IV medications needed Discharge planning: home with home health
[2017-11-01 15:55] VITALS: BP 126/73; PULSE 78; TEMP 36.7; O2SAT 95
[2017-11-01 16:00] VITALS: O2SAT 96
[2017-11-01] MEDS: ERTAPENEM IV 1 GM in SODIUM CHLOR 0.9% AD-VAN 50ML 50 ML IV SCH (18:45)
--- NOTE | 2017-11-01 20:49 | Infectious Disease Progress Nt ---
Progress Note Date of Service Nov 01, 2017. 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 Diarrhea slightly better. Now on vancomycin for C difficile. No increase in shortness of breath or cough. Remains afebrile. All Other Systems: Reviewed and Negative Medications Current Inpatient Medications Medications (Trade) Dose Ordered Sig/Taye Route Start Time Stop Time Status Last Admin Dose Admin Aspirin (Ecotrin Tab) 81 mg QAM PO 10/30/17 08:00 11/29/17 08:59 11/01/17 08:34 81 MG Diclofenac Sodium (Voltaren 1% Top Gel) 1 appln DAILY PRN EXT 10/29/17 13:15 11/28/17 13:14 Diltiazem HCl (TIAzac CAP) 120 mg DAILY PO 10/30/17 08:00 11/29/17 08:59 11/01/17 08:34 120 MG Duloxetine HCl (Cymbalta Cap) 30 mg QAM PO 10/30/17 08:00 11/29/17 08:59 11/01/17 08:35 30 MG Duloxetine HCl (Cymbalta Cap) 60 mg QAM PO 10/30/17 08:00 11/29/17 08:59 11/01/17 08:34 60 MG Fluticasone Propionate (Flonase Nasal [place]) 1 sprays DAILY NA 10/30/17 08:00 11/29/17 08:59 11/01/17 08:35 1 SPRAYS Furosemide (Lasix Tab) 40 mg QAM PO 10/30/17 08:00 11/29/17 08:59 11/01/17 08:33 40 MG Gabapentin (Neurontin Cap) 300 mg TID PO 10/29/17 16:00 11/28/17 15:59 11/01/17 13:33 300 MG Hydroxychloroquine Sulfate (Plaquenil Tab) 200 mg BID PO 10/29/17 20:00 11/28/17 20:59 11/01/17 08:34 200 MG Lactobacillus Acidophilus (Floranex Tab) 1 tab TIDM PO 10/29/17 17:00 11/28/17 17:59 11/01/17 16:58 1 TAB Levothyroxine Sodium (Synthroid Tab) 88 mcg DAILYBB PO 10/30/17 06:30 11/29/17 06:29 11/01/17 06:12 88 MCG Ondansetron HCl (Zofran Odt) 8 mg Q6H PRN SL 10/29/17 13:15 11/28/17 13:14 Oxycodone HCl (Oxycontin Tab) 10 mg BID PO 10/29/17 20:00 11/12/17 20:59 11/01/17 08:43 10 MG Quetiapine Fumarate (seroQUEL TAB) 100 mg HS PO 10/29/17 21:00 11/28/17 20:59 10/31/17 21:02 100 MG Pantoprazole Sodium (Protonix Tab) 40 mg BID PO 10/29/17 20:00 11/28/17 19:59 11/01/17 08:33 40 MG Polyethylene (Miralax Powder Packet) 17 gm BID PO 10/29/17 20:00 11/28/17 20:59 10/31/17 21:00 17 GM Acetaminophen (Tylenol Tab) 650 mg Q4H PRN PO 10/29/17 13:30 11/28/17 13:29 10/31/17 23:17 650 MG Al Hydrox/Mg Hydrox/Simethicone (Maalox Max Susp) 15 ml Q4H PRN PO 10/29/17 13:30 11/28/17 13:29 Magnesium Hydroxide (Milk Of Magnesia Susp) 30 ml Q6H PRN PO 10/29/17 13:30 11/28/17 13:29 Ondansetron HCl (Zofran Inj) 4 mg Q6H PRN IV 10/29/17 13:30 11/28/17 13:29 11/01/17 08:43 4 MG Heparin Sodium (Porcine) (Heparin Sq 5000 Unit/0.5ml) 5,000 unit Q12 SQ 10/29/17 21:00 11/28/17 20:59 11/01/17 08:42 5,000 UNIT Miscellaneous Information (Consult) 1 ea UD PRN N/A 10/29/17 13:29 11/28/17 13:28 Ertapenem 1 gm/ Sodium Chloride 50 ml @ 120 mls/hr Q24H IV 10/29/17 18:00 11/08/17 17:59 11/01/17 18:45 120 MLS/HR Hydrocortisone Sodium Succinate 50 mg/Syringe 1 ml @ 4 mls/min Q8H IV 10/29/17 16:00 11/28/17 15:59 11/01/17 16:58 4 MLS/MIN Azithromycin (Zithromax Tab) 250 mg QAM PO 10/30/17 08:00 11/05/17 07:59 11/01/17 08:34 250 MG Heparin Sodium (Porcine) (Heparin 10 Unit/ ml 5 ml Flush) 5 ml PRN PRN FLUSH 10/30/17 01:30 11/29/17 01:29 11/01/17 19:17 5 ML Prednisone (PredniSONE TAB) 10 mg QAM PO 10/31/17 08:00 11/30/17 08:59 11/01/17 08:34 10 MG Glucose (Glucose 40% Gel) 15-30 GRAMS 15 GRAMS... UD PRN PO 10/30/17 12:30 11/29/17 12:29 Glucose (Glucose Chew Tab) 4-8 Tablets 4 Tabl... UD PRN PO 10/30/17 12:30 11/29/17 12:29 Dextrose (Dextrose 50% 50ML Syringe) 25-50ML OF 50% DW IV FOR... UD PRN IV 10/30/17 12:30 11/29/17 12:29 Glucagon (Glucagon Inj) 1 mg UD PRN SQ 10/30/17 12:30 11/29/17 12:29 Insulin Aspart (novoLOG ASPART) SLIDING SCALE G... ACHS SC 10/30/17 16:30 11/29/17 16:29 11/01/17 19:15 4 UNITS Vancomycin HCl (Vancomycin Oral Soln) 125 mg Q6H PO 10/30/17 20:30 11/13/17 20:29 11/01/17 13:33 125 MG Raspberry (Raspberry Syrup 5ml Cup) 5 ml Q6H PO 10/30/17 20:30 11/13/17 20:29 11/01/17 13:33 5 ML Miconazole Nitrate (Desenex Powder) 1 appln PRN PRN EXT 10/31/17 19:15 11/30/17 19:14 11/01/17 16:59 1 APPLN Vancomycin HCl 1250 mg/Sodium Chloride 275 ml @ 125 mls/hr Q18H IV 11/02/17 05:00 11/12/17 04:59 Objective Vital Signs Date Time Temp Pulse Resp B/P (MAP) Pulse Ox O2 Delivery O2 Flow Rate FiO2 11/01/17 16:00 96 Room Air 11/01/17 15:55 36.7 78 18 126/73 (90) 95 Room Air 11/01/17 08:15 Room Air 11/01/17 06:55 36.6 84 20 171/72 (105) 96 Room Air 11/01/17 00:00 96 Room Air 10/31/17 23:27 36.7 80 20 150/74 (99) 97 Room Air Physical Exam General Appearance: WD/WN, no apparent distress Eyes: normal inspection, EOMI, sclerae normal ENT: normal ENT inspection, pharynx normal Neck: supple, no adenopathy, trachea midline Respiratory/Chest: chest non-tender, lungs clear, normal breath sounds, no respiratory distress Cardiovascular: regular rate, rhythm, no gallop, no murmur Abdomen: normal bowel sounds, non tender, soft, no organomegaly Extremities: non-tender, no calf tenderness Neurologic/Psychiatric: alert, oriented x 3 Skin: normal color, warm/dry, no rash Lymphatic: no adenopathy Laboratory Results Last 24 Hours Test 11/01/17 06:20 11/01/17 07:22 11/01/17 10:22 11/01/17 11:22 White Blood Count 5.40 K/uL Red Blood Count 3.53 M/uL Hemoglobin 10.1 g/dL Hematocrit 32.6 % Mean Corpuscular Volume 92.4 fL Mean Corpuscular Hemoglobin 28.6 pg Mean Corpuscular Hemoglobin Concent 31.0 g/dl RDW Standard Deviation 50.5 fL RDW Coefficient of Variation 14.9 % Platelet Count 191 K/uL Mean Platelet Volume 10.0 fL Sodium Level 140 mmol/L Potassium Level 3.4 mmol/L Chloride Level 103 mmol/L Carbon Dioxide Level 29 mmol/L Anion Gap 9.0 mmol/L Blood Urea Nitrogen 15 mg/dl Creatinine 0.92 mg/dl Est Creatinine Clear Calc Drug Dose 44.1 ml/min Estimated GFR () 66.3 Estimated GFR (Non- 57.2 BUN/Creatinine Ratio 16.1 Random Glucose 125 mg/dl Calcium Level 8.6 mg/dl Bedside Glucose 125 mg/dl 86 mg/dl Vancomycin Level Trough 11.2 mcg/ml Assessment and Plan 86-year-old female with recurrent urinary tract infection with recent hospitalization for Pseudomonas urinary tract infection completing 10 days of IV cefepime, now with recurrent fever, headache, cough. No obvious pneumonia on chest x-ray. Now found to have positive C difficile PCR, has been started on oral vancomycin. Would recommend discontinuation of other antibiotics given negative cultures. Will discuss with all involved. Will continue to follow.
[2017-11-01] MEDS: QUETIAPINE FUMARATE 100 MG TAB PO SCH (21:17)
[2017-11-02] MEDS: HYDROCORTISONE IV 50 MG in SYRINGE 0 ML IV SCH ×2 (00:15→09:29)
[2017-11-02] MEDS ORDERED: ALTEPLASE, RECOMBINANT 1 MG/ML 2 ML VIAL IV ONE (00:30)
[2017-11-02 01:09] VITALS: BP 130/66; PULSE 80; TEMP 36.8; O2SAT 93
[2017-11-02] MEDS: VANCOMYCIN HCL 125 MG/2.5ML SOLN PO SCH ×3 (02:34→14:11)
[2017-11-02] MEDS: RASPBERRY SYRUP 5 ML UDP PO SCH ×3 (02:34→14:11)
[2017-11-02] MEDS: LEVOTHYROXINE 88 MCG TAB PO SCH (04:56)
[2017-11-02] MEDS ORDERED: VANCOMYCIN INJ 1,250 MG in SODIUM CHLORIDE 0.9% 250ML 250 ML IV SCH (05:00)
[2017-11-02 05:58] LABS: BASO % 0.2 %; BASO ABS # 0.01 K/uL (0-0.2); HEMOGLOBIN 9.8 g/dL (12.0-16.0); IG# 0.03 K/uL (0.00-0.02); LYMPH ABS # 1.17 K/uL (1.2-3.4); MEAN CELL VOLUME 90.6 fL (80-100); MEAN CORPUSCULAR HEMOGLOBIN 28.7 pg (25-34); MEAN CORPUSCULAR HGB CONC 31.6 g/dl (32-36); MEAN PLATELET VOLUME 9.5 fL (7.4-10.4); MONO % 11.3 %; MONO ABS # 0.66 K/uL (0.11-0.59); NEUT ABS # 3.98 K/uL (1.4-6.5); PLATELET COUNT 174 K/uL (130-400); RED CELL DISTRIBUTION WIDTH CV 14.5 % (11.5-14.5); WHITE BLOOD COUNT 5.85 K/uL (4.8-10.8)
[2017-11-02 06:44] LABS: ALBUMIN 2.7 gm/dl (3.4-5.0); CALCIUM 8.2 mg/dl (8.5-10.1); CREATININE 0.9 mg/dl (0.60-1.20); POTASSIUM 2.9 mmol/L (3.5-5.1)
[2017-11-02 06:46] LABS: TOTAL PROTEIN 5.9 gm/dl (6.4-8.2)
[2017-11-02 07:26] VITALS: BP 147/75; PULSE 74; TEMP 36.5; O2SAT 97
[2017-11-02] MEDS ORDERED: POTASSIUM CHLORIDE 20 MEQ TABCR PO ONE ×2 (09:00→14:45)
[2017-11-02] MEDS ORDERED: POTASSIUM CHLR 10 MEQ / WTR 10 MEQ in PREMIXED WATER 100 ML IV ONE (09:00)
[2017-11-02] MEDS: FLUTICASONE PROPIONATE NA SPR 16 GM BTL SCH (09:13)
[2017-11-02] MEDS: POLYETHYLENE (MIRALAX) 17 GM PACK PO SCH (09:14)
[2017-11-02] MEDS: DULOXETINE (CYMBALTA) 30 MG CAP PO SCH (09:17)
[2017-11-02] MEDS: GABAPENTIN 300 MG CAP PO SCH ×2 (09:17→14:11)
[2017-11-02] MEDS: LACTOBACILLUS ACIDOPHILUS (FLORANEX) TAB PO SCH ×2 (09:17→12:54)
[2017-11-02] MEDS: OXYCODONE HCL 10 MG TABCR (OXYCONTIN) PO SCH (09:17)
[2017-11-02] MEDS: ASPIRIN 81 MG ECTAB PO SCH (09:17)
[2017-11-02] MEDS: PANTOprazole SOD 40 MG TAB PO SCH (09:17)
[2017-11-02] MEDS: DULOXETINE HCL 60 MG CAP PO SCH (09:18)
[2017-11-02] MEDS: FUROSEMIDE 40 MG TAB PO SCH (09:18)
[2017-11-02] MEDS: HYDROXYCHLOROQUINE SULFATE 200 MG TAB PO SCH (09:18)
[2017-11-02] MEDS: DILTIAZEM HCL 120 MG EXT REL CAP PO SCH (09:18)
[2017-11-02] MEDS: AZITHROMYCIN 250 MG TAB PO SCH (09:18)
[2017-11-02] MEDS: HEPARIN SOD 5000 UNIT/0.5 ML CARP SQ SCH (09:28)
[2017-11-02] MEDS: INSULIN ASPART 100 UNITS/ML 3 ML PEN SC SCH ×2 (09:28→12:57)
[2017-11-02] MEDS ORDERED: MCRK20 PO (12:40)
[2017-11-02] MEDS ORDERED: VANC1SUS PO (12:40)
--- NOTE | 2017-11-02 12:42 | Discharge Instructions ---
Discharge Instructions Date of Service Nov 02, 2017. Admission Reason for Admission: Fever, Fuo Discharge Discharge Diagnosis / Problem: c diff infection Discharge Goals Goal(s): Decrease discomfort Activity Recommendations Activity Limitations: resume your previous activity . Current Hospital Diet Patient's current hospital diet: Diabetes Type 2 Diet Discharge Diet Recommended Diet: Regular Diet Pending Studies Studies pending at discharge: yes List of pending studies: ordered potassium level (BMP) to be done in 2 days results to be sent to primary care physician Laboratory Results Hemoglobin A1c Test 10/16/17 06:11 Range/Units Estimated Average Glucose 137 mg/dl Hemoglobin A1c 6.4 H 4.5-5.6 % Medical Emergencies . Who to Call and When: Medical Emergencies: If at any time you feel your situation is an emergency, please call 911 immediately. . Non-Emergent Contact Non-Emergency issues call your: Primary Care Provider . . "Provider Documentation" section prepared by Kenya Quinones. . VTE Core Measure Inpt VTE Proph given/why not?: Unfractionated heparin SQ
[2017-11-02 13:54] VITALS: BP 147/75; PULSE 74; TEMP 36.5; O2SAT 97
[2017-11-02] MEDS ORDERED: NURSING VERBAL MED ORDER ONE (14:15)
[2017-11-02] MEDS ORDERED: VANC5CAP OR (14:32)
--- NOTE | 2017-11-02 14:52 | Infectious Disease Progress Nt ---
Progress Note Date of Service Nov 02, 2017. Subjective Pt evaluation today including: conversation w/ patient, physical exam, chart review, lab review, review of studies, conversation w/ [employer] consultant, review of inpatient medication list Patient offering no new complaints sedated. Diarrhea better. No fever. All Other Systems: Reviewed and Negative Medications Current Inpatient Medications Medications (Trade) Dose Ordered Sig/Taye Route Start Time Stop Time Status Last Admin Dose Admin Aspirin (Ecotrin Tab) 81 mg QAM PO 10/30/17 08:00 11/29/17 08:59 11/02/17 09:17 81 MG Diclofenac Sodium (Voltaren 1% Top Gel) 1 appln DAILY PRN EXT 10/29/17 13:15 11/28/17 13:14 Diltiazem HCl (TIAzac CAP) 120 mg DAILY PO 10/30/17 08:00 11/29/17 08:59 11/02/17 09:18 120 MG Duloxetine HCl (Cymbalta Cap) 30 mg QAM PO 10/30/17 08:00 11/29/17 08:59 11/02/17 09:17 30 MG Duloxetine HCl (Cymbalta Cap) 60 mg QAM PO 10/30/17 08:00 11/29/17 08:59 11/02/17 09:18 60 MG Fluticasone Propionate (Flonase Nasal Mathews) 1 sprays DAILY NA 10/30/17 08:00 11/29/17 08:59 11/02/17 09:13 1 SPRAYS Furosemide (Lasix Tab) 40 mg QAM PO 10/30/17 08:00 11/29/17 08:59 11/02/17 09:18 40 MG Gabapentin (Neurontin Cap) 300 mg TID PO 10/29/17 16:00 11/28/17 15:59 11/02/17 14:11 300 MG Hydroxychloroquine Sulfate (Plaquenil Tab) 200 mg BID PO 10/29/17 20:00 11/28/17 20:59 11/02/17 09:18 200 MG Lactobacillus Acidophilus (Floranex Tab) 1 tab TIDM PO 10/29/17 17:00 11/28/17 17:59 11/02/17 12:54 1 TAB Levothyroxine Sodium (Synthroid Tab) 88 mcg DAILYBB PO 10/30/17 06:30 11/29/17 06:29 11/02/17 04:56 88 MCG Ondansetron HCl (Zofran Odt) 8 mg Q6H PRN SL 10/29/17 13:15 11/28/17 13:14 Oxycodone HCl (Oxycontin Tab) 10 mg BID PO 10/29/17 20:00 11/12/17 20:59 11/02/17 09:17 10 MG Quetiapine Fumarate (seroQUEL TAB) 100 mg HS PO 10/29/17 21:00 11/28/17 20:59 11/01/17 21:17 100 MG Pantoprazole Sodium (Protonix Tab) 40 mg BID PO 10/29/17 20:00 11/28/17 19:59 11/02/17 09:17 40 MG Polyethylene (Miralax Powder Packet) 17 gm BID PO 10/29/17 20:00 11/28/17 20:59 11/01/17 20:58 17 GM Acetaminophen (Tylenol Tab) 650 mg Q4H PRN PO 10/29/17 13:30 11/28/17 13:29 10/31/17 23:17 650 MG Al Hydrox/Mg Hydrox/Simethicone (Maalox Max Susp) 15 ml Q4H PRN PO 10/29/17 13:30 11/28/17 13:29 Magnesium Hydroxide (Milk Of Magnesia Susp) 30 ml Q6H PRN PO 10/29/17 13:30 11/28/17 13:29 Ondansetron HCl (Zofran Inj) 4 mg Q6H PRN IV 10/29/17 13:30 11/28/17 13:29 11/01/17 08:43 4 MG Heparin Sodium (Porcine) (Heparin Sq 5000 Unit/0.5ml) 5,000 unit Q12 SQ 10/29/17 21:00 11/28/17 20:59 11/02/17 09:28 5,000 UNIT Hydrocortisone Sodium Succinate 50 mg/Syringe 1 ml @ 4 mls/min Q8H IV 10/29/17 16:00 11/28/17 15:59 11/02/17 09:29 4 MLS/MIN Azithromycin (Zithromax Tab) 250 mg QAM PO 10/30/17 08:00 11/05/17 07:59 11/02/17 09:18 250 MG Heparin Sodium (Porcine) (Heparin 10 Unit/ ml 5 ml Flush) 5 ml PRN PRN FLUSH 10/30/17 01:30 11/29/17 01:29 11/02/17 11:36 5 ML Prednisone (PredniSONE TAB) 10 mg QAM PO 10/31/17 08:00 11/30/17 08:59 11/02/17 09:17 10 MG Glucose (Glucose 40% Gel) 15-30 GRAMS 15 GRAMS... UD PRN PO 10/30/17 12:30 11/29/17 12:29 Glucose (Glucose Chew Tab) 4-8 Tablets 4 Tabl... UD PRN PO 10/30/17 12:30 11/29/17 12:29 Dextrose (Dextrose 50% 50ML Syringe) 25-50ML OF 50% DW IV FOR... UD PRN IV 10/30/17 12:30 11/29/17 12:29 Glucagon (Glucagon Inj) 1 mg UD PRN SQ 10/30/17 12:30 11/29/17 12:29 Insulin Aspart (novoLOG ASPART) SLIDING SCALE G... ACHS SC 10/30/17 16:30 11/29/17 16:29 11/02/17 09:28 2 UNITS Vancomycin HCl (Vancomycin Oral Soln) 125 mg Q6H PO 10/30/17 20:30 11/13/17 20:29 11/02/17 14:11 125 MG Raspberry (Raspberry Syrup 5ml Cup) 5 ml Q6H PO 10/30/17 20:30 11/13/17 20:29 11/02/17 14:11 5 ML Miconazole Nitrate (Desenex Powder) 1 appln PRN PRN EXT 10/31/17 19:15 11/30/17 19:14 11/01/17 16:59 1 APPLN Potassium Chloride (Klor-Con Tab) 20 meq BID PO 11/02/17 20:00 12/02/17 19:59 Objective Vital Signs Date Time Temp Pulse Resp B/P (MAP) Pulse Ox O2 Delivery O2 Flow Rate FiO2 11/02/17 13:54 36.5 74 18 97 Room Air 11/02/17 08:40 Room Air 11/02/17 07:26 36.5 74 18 147/75 (99) 97 Room Air 11/02/17 01:09 36.8 80 18 130/66 (87) 93 Room Air 11/02/17 00:00 Room Air 11/01/17 16:00 96 Room Air 11/01/17 15:55 36.7 78 18 126/73 (90) 95 Room Air Physical Exam General Appearance: WD/WN, no apparent distress Eyes: normal inspection, sclerae normal ENT: normal ENT inspection, pharynx normal Neck: supple, no adenopathy, trachea midline Respiratory/Chest: chest non-tender, lungs clear, normal breath sounds, no respiratory distress Cardiovascular: regular rate, rhythm, no gallop, no murmur Abdomen: normal bowel sounds, soft, no organomegaly, + tenderness Extremities: non-tender, no calf tenderness Neurologic/Psychiatric: alert, oriented x 3 Skin: normal color, warm/dry, no rash Lymphatic: no adenopathy Laboratory Results Last 24 Hours Test 11/01/17 16:47 11/01/17 20:07 11/02/17 05:37 Bedside Glucose 131 mg/dl 178 mg/dl White Blood Count 5.85 K/uL Red Blood Count 3.42 M/uL Hemoglobin 9.8 g/dL Hematocrit 31.0 % Mean Corpuscular Volume 90.6 fL Mean Corpuscular Hemoglobin 28.7 pg Mean Corpuscular Hemoglobin Concent 31.6 g/dl Platelet Count 174 K/uL Mean Platelet Volume 9.5 fL Neutrophils (%) (Auto) 68.0 % Lymphocytes (%) (Auto) 20.0 % Monocytes (%) (Auto) 11.3 % Eosinophils (%) (Auto) 0.0 % Basophils (%) (Auto) 0.2 % Neutrophils # (Auto) 3.98 K/uL Lymphocytes # (Auto) 1.17 K/uL Monocytes # (Auto) 0.66 K/uL Eosinophils # (Auto) 0.00 K/uL Basophils # (Auto) 0.01 K/uL RDW Standard Deviation 48.0 fL RDW Coefficient of Variation 14.5 % Immature Granulocyte % (Auto) 0.5 % Immature Granulocyte # (Auto) 0.03 K/uL Sodium Level 139 mmol/L Potassium Level 2.9 mmol/L Chloride Level 102 mmol/L Carbon Dioxide Level 30 mmol/L Anion Gap 7.0 mmol/L Blood Urea Nitrogen 16 mg/dl Creatinine 0.90 mg/dl Est Creatinine Clear Calc Drug Dose 45.1 ml/min Estimated GFR () 68.1 Estimated GFR (Non- 58.7 BUN/Creatinine Ratio 17.5 Random Glucose 129 mg/dl Calcium Level 8.2 mg/dl Magnesium Level 1.9 mg/dl Total Bilirubin 0.2 mg/dl Aspartate Amino Transf (AST/SGOT) 12 U/L Alanine Aminotransferase (ALT/SGPT) 22 U/L Alkaline Phosphatase 56 U/L Total Protein 5.9 gm/dl Albumin 2.7 gm/dl Globulin 3.2 gm/dl Albumin/Globulin Ratio 0.8 Assessment and Plan 86-year-old female with recurrent urinary tract infection with recent hospitalization for Pseudomonas urinary tract infection completing 10 days of IV cefepime, now with recurrent fever, headache, cough. No obvious pneumonia on chest x-ray. Now found to have positive C difficile PCR, has been started on oral vancomycin. Patient be treated with 14 days of oral vancomycin therapy , would like to follow-up thereafter in the office. Will discuss.
--- NOTE | 2017-11-02 18:58 | Discharge Summary ---
Discharge Summary Date of Service Nov 02, 2017. Discharge Summary Admission Date: Oct 29, 2017 at 13:25 Discharge Date: Nov 02, 2017 Discharge Disposition: Home with services Principal Diagnosis: Clostridium difficile Problems/Secondary Diagnoses: C. difficile Suspected healthcare associated pneumonia Sepsis present on admission likely secondary to C. difficile Right lower quadrant pain, improved CAD Hypertension Diabetes mellitus type 2 Rheumatoid arthritis Depression/and exactly/fibromyalgia Hypothyroidism Glasgow's Esophagus Immunizations: Have You Had Influenza Vaccine: N/A Influenza Vaccine Date: Jul 24, 2007 History of Tetanus Vaccine?: UTD History of Pneumococcal: Yes Pneumococcal Date: May 09, 1990 History of Hepatitis B Vaccine: Yes Hepatitis Immunization Date: May 09, 1985 Medication Reconciliation New Medications: Vancomycin Hcl (Vancomycin) 125 Mg Cap 1 CAP OR Q6H for 14 Days, #56 Potassium Chloride (Klor-Con M20) 20 Meq Tabcr 20 MEQ PO DAILY for 30 Days, #30 Continued Medications: Ascorbic Acid (Ascorbic Acid) 500 Mg Tab 500 MG PO DAILY, TAB Aspirin (Aspirin Ec) 81 Mg Tab 81 MG PO QAM B-Complex Vitamins (B Complex) 1 Cap Cap 1 CAP PO DAILY Cholecalciferol (Vitamin D3) 2,000 Unit Cap 2000 UNITS PO DAILY Cranberry (Vaccinium Macrocarp (Cranberry) 400 Mg Tab 400 MG PO DAILY @ NOON Diclofenac Sod (Voltaren) 100 Appln/100 Gm Gel 1 APPLN TOP DAILY PRN for Pain Diltiazem Hcl Ext Rel (Tiazac) 120 Mg Capcr 120 MG PO DAILY @ NOON Duloxetine Hcl (Cymbalta) 60 Mg Cap 60 MG PO QAM TAKE ALONG WITH ONE 30MG CAPSULE TO = 90MG Duloxetine Hcl (Cymbalta) 30 Mg Cap 30 MG PO QAM TAKE ALONG WITH ONE 60MG CAP TO = 90MG Fluticasone Propionate (Fluticasone Propionate) 50 Mcg/Act Spr 1 SPRAYS NA DAILY for 14 Days, #1 BTL Furosemide (Lasix) 20 Mg Tab 40 MG PO QAM, TAB Gabapentin (Neurontin) 300 Mg Cap 300 MG PO TID, CAP Home O2 Therapy (Oxygen) Gas 3 LITERS NA PRN Hydroxychloroquine Sulfate (Plaquenil) 200 Mg Tab 200 MG PO BID, TAB Lactobacillus Acidophilus (Lactinex) Tab 4 TABS PO TIDM Levothyroxine Sodium (Synthroid) 88 Mcg Tab 88 MCG PO DAILY, TAB Omeprazole (Prilosec) 20 Mg Capcr 20 MG PO BID, CAP Ondansetron Odt (Zofran Odt) 8 Mg Soltab 8 MG SL Q6H PRN for Nausea, TAB Oxycodone HCl (Oxycontin) 10 Mg Tabcr 10 MG PO BID for 3 Days, #6 TABS Polyethylene Glycol 3350 (Miralax) 1 Pow Pow 17 GM PO BID, GM Prednisone Tab (Prednisone) 10 Mg Tab 10 MG PO QAM, TAB Quetiapine Fumarate (Seroquel) 100 Mg Tab 100 MG PO HS, TAB Discontinued Medications: Cefepime Hcl (Cefepime) 2 Gm Inj 2 GM IV DAILY for 3 Days Dexlansoprazole (Dexilant) 60 Mg Cap 60 MG PO BID Discharge Exam Review of Systems: Constitutional: No fever, No chills, No sweats, No weight loss, No weakness , No fatigue, No problem reported Eyes: No worsening of vision, No eye pain, No redness, No discharge, No diplopia, No problem reported ENT: No hearing loss, No unusual epistaxis, No nasal symptoms, No sore throat, No tinnitus, No dental problems, No trouble swallowing, No problem reported Respiratory: No cough, No sputum, No wheezing, No shortness of breath, No dyspnea on exertion, No dyspnea at rest, No hemoptysis, No problem reported Cardiovascular: No chest pain, No orthopnea, No PND, No edema, No claudication, No palpitations, No problem reported Abdomen: No pain, No nausea, No vomiting, No diarrhea, No constipation, No GI bleeding, No problem reported Musculoskeletal: No joint pain, No muscle pain, No swelling, No calf pain, No problem reported Genitourinary - Female: No dysuria, No urinary frequency, No urinary urgency , No urinary incontinence, No urinary retention, No hematuria, No dysmenorrhea, No menorrhagia, No metrorrhagia, No rash, No vaginal bleeding, No vaginal discharge, No vaginal itching, No vulvodynia, No , No problem reported Genitourinary - Male: No hematuria, No dysuria, No urinary frequency, No urinary urgency, No urinary hesitancy, No urinary retention, No urinary incontinence, No penile discharge, No lesions, No impotence, No problem reported Neurologic: No memory loss, No paralysis, No weakness, No numbness/tingling , No vertigo, No balance problems, No problem reported Psychiatric: No depression symptoms, No anhedonism, No anxiety, No insomnia , No substance abuse, No problem reported Endocrine: No fatigue, No excessive thirst, No excessive urination, No problem reported Hematologic / Lymphatic: No abnormal bleeding/bruising, No clotting problems , No swollen lymph nodes, No night sweats, No problem reported Integumentary: No rash, No itch, No new/changing skin lesions, No color change, No bleeding, No problem reported Physical Exam: General Appearance: WD/WN, no apparent distress Eyes: normal inspection, EOMI ENT: normal ENT inspection, hearing grossly normal Neck: supple Respiratory/Chest: chest non-tender, lungs clear, normal breath sounds, no respiratory distress, no accessory muscle use Cardiovascular: regular rate, rhythm, no edema, no gallop, no JVD, no murmur , normal peripheral pulses Abdomen / GI: normal bowel sounds, non tender, soft, no organomegaly, no pulsatile mass Extremities: normal inspection, no calf tenderness, normal capillary refill , no pedal edema, normal range of motion Neurologic/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 Patient to presented to the hospital again with recurrent fever and cough empirically started on Invanz and Vanco, ID consult appreciated, Initially patient was started on broad-spectrum antibiotic Vanco/Zosyn for potential pneumonia . patient was found to have positive C. difficile and was started on oral vancomycin. Chest x-ray was negative for pneumonia ID stopped Vanco iv and Zosyn Blood cultures/urine cultures were negative Colostomy acute diarrhea Continued diltiazem/Lasix/aspirin Continued Synthroid/Plaquenil/prednisone Continued Protonix twice a day was found today within acceptable stability for discharge Total Time Spent: Greater than 30 minutes This includes examination of the patient, discharge planning, medication reconciliation, and communication with other providers. Discharge Instructions Please refer to the electronic Patient Visit Report (Discharge Instructions) for additional information.
[2017-11-02] MEDS ORDERED: POTASSIUM CHLORIDE 20 MEQ TABCR PO SCH (20:00)
[2017-11-03] MEDS ORDERED: VANCOMYCIN TROUGH ONE (16:30)
== END 2017-11-02 14:59 | disposition home health service (06) | DRG 871 ==
LOC: EDBD 09:41 → C.EDB 09:42 → C.MS4W 13:25 → EDBEDREQ 13:43 → ENRESERV 14:54
PROVIDERS: ADMIT Internal Medicine; ATTEND Internal Medicine
DX: A41.9 Sepsis, unspecified organism (principal); J18.9 Pneumonia, unspecified organism; N39.0 Urinary tract infection, site not specified; A04.72 Enterocolitis due to Clostridium difficile, not specified as recurrent; E86.0 Dehydration; F32.9 Major depressive disorder, single episode, unspecified; K21.9 Gastro-esophageal reflux disease without esophagitis; E78.5 Hyperlipidemia, unspecified; E03.9 Hypothyroidism, unspecified; F41.9 Anxiety disorder, unspecified; I10 Essential (primary) hypertension; G25.81 Restless legs syndrome; I25.10 Atherosclerotic heart disease of native coronary artery without angina pectoris; B96.5 Pseudomonas (aeruginosa) (mallei) (pseudomallei) as the cause of diseases classified elsewhere; E11.9 Type 2 diabetes mellitus without complications; M06.9 Rheumatoid arthritis, unspecified; J45.909 Unspecified asthma, uncomplicated; Z79.2 Long term (current) use of antibiotics; Z79.52 Long term (current) use of systemic steroids; Z79.82 Long term (current) use of aspirin; Z79.899 Other long term (current) drug therapy; Z86.73 Personal history of transient ischemic attack (TIA), and cerebral infarction without residual deficits; Z88.1 Allergy status to other antibiotic agents; Z93.3 Colostomy status

== ENCOUNTER → 2017-11-05 | Outpatient (CLI) | payer BC ==
[~2017-11-05] MED LIST changes: -CEFE2INJ2 IV; -DEXL60CA4 PO; +MCRK20 PO; +VANC5CAP OR; +VLTG TOP; -VOLTAREN GEL TOP
[2017-11-05 13:15] LABS: BASO % 0.2 %; BASO ABS # 0.04 K/uL (0-0.2); EOS % 1.8 %; HEMOGLOBIN 11.1 g/dL (12.0-16.0); IG# 0.13 K/uL (0.00-0.02); LYMPH % 11.6 %; MEAN CELL VOLUME 92.8 fL (80-100); MEAN CORPUSCULAR HEMOGLOBIN 28.6 pg (25-34); MEAN CORPUSCULAR HGB CONC 30.8 g/dl (32-36); MEAN PLATELET VOLUME 9.9 fL (7.4-10.4); MONO % 8.9 %; MONO ABS # 1.45 K/uL (0.11-0.59); NEUT % 76.7 %; NEUT ABS # 12.53 K/uL (1.4-6.5); PLATELET COUNT 248 K/uL (130-400); RED CELL DISTRIBUTION WIDTH CV 14.8 % (11.5-14.5); WHITE BLOOD COUNT 16.35 K/uL (4.8-10.8)
[2017-11-05 14:10] LABS: BLOOD UREA NITROGEN 15 mg/dl (7-18); CALCIUM 8.9 mg/dl (8.5-10.1); CARBON DIOXIDE 36 mmol/L (21-32); CREATININE 1.08 mg/dl (0.60-1.20); GLUCOSE 124 mg/dl (70-99); POTASSIUM 3.2 mmol/L (3.5-5.1); SODIUM 139 mmol/L (136-145)
== END | disposition home or self-care (01) ==
LOC: C.LABBC 11:30
PROVIDERS: ATTEND Internal Medicine
DX: E87.6 Hypokalemia (principal); D63.8 Anemia in other chronic diseases classified elsewhere

== ENCOUNTER 2017-11-17 15:19 | Inpatient (IN) | payer BC, OTHER ==
[~2017-11-17] VITALS: Ht 160 cm; Wt 75.6 kg
[2017-11-17] MEDS ORDERED: SODIUM CHLORIDE 0.9% 1000ML 1,000 ML IV STA (15:41)
--- NOTE | 2017-11-17 15:50 | EMERGENCY ROOM VISIT NOTE ---
History Report prepared by Master: Vj Nichols Under the Supervision of: Dr. Bennett Brar M.D. First contact with patient: 15:34 Chief Complaint: DIZZY Stated Complaint: NAUSEA, LIGHTHEADED History of Present Illness The patient is an 86 year old female who presents to the Emergency Room with complaints of worsening dizziness and lightheadedness that she has been experiencing for the past 5 days. The patient states that when she gets up the lightheadedness causes her to feel like she is going to fall and she has to immediately get back in bed. She has not had any falling episodes to this point. The patient notes that she feels generally weak and is exhausted after getting out of bed and eating breakfast. She has felt this general weakness since being discharged from the hospital on the 02 of November. She was discharged after a 4 day inpatient stay for C. difficile. She is still currently taking Vancomycin PO. The patient continued to note that her colostomy secretions have been more liquid than usual, and she has been having headaches. She denies any cough, congestion, chest pains, or fevers. The patient did make note of pain and soreness to her buttocks, which she believes is secondary to wearing Depends underwear. Her psychiatrist also recently increased her dosage of Seroquel 4-5 days ago. He increased this dosage from 100 to 150 mg daily. This medication is to help the patient sleep at night. 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 A total of 10 systems reviewed and were otherwise negative. Past Medical & Surgical Medical Problems: (1) Altered mental status (2) Ambulatory dysfunction (3) Arthritis (4) Asthma (5) Cholecystectomy (6) Chronic back pain (7) Complicated UTI (urinary tract infection) (8) Depression (9) Diverticulitis (10) Failure of outpatient treatment (11) Fall from ground level (12) fever (13) FUO (fever of unknown origin) (14) Gastroesophageal reflux disease (15) Generalized weakness (16) Hyperlipidemia (17) Hypothyroidism (18) IBS (19) Impacted cerumen (20) Lupus (21) Major depressive disorder, recurrent episode with anxious distress (22) Osteoarthritis (23) Pituitary adenoma (24) pituitary gland removal (25) Sepsis (26) SIRS (systemic inflammatory response syndrome) (27) Slurred speech (28) TIA (29) Urinary tract infection (30) UTI (urinary tract infection) (31) Vasovagal syncope (32) Viral syndrome Surgical Problems: (1) H/O: hysterectomy (2) History of hip replacement (3) Hx of cholecystectomy Family History Cancer Diabetes mellitus Gallbladder disease Heart disease Hypertension Kidney disease Kidney stones Seizures Social History Smoking Status: Never Smoker Alcohol Use: none Drug Use: none Marital Status: Housing Status: lives alone Occupation Status: retired Current/Historical Medications Scheduled Ascorbic Acid (Ascorbic Acid), 500 MG PO DAILY Aspirin (Aspirin Ec), 81 MG PO QAM B-Complex Vitamins (B Complex), 1 CAP PO DAILY Cholecalciferol (Vitamin D3), 2,000 UNITS PO DAILY Cyanocobalamin (Vitamin B-12), 1,000 MCG PO DAILY Dexlansoprazole (Dexilant), 60 MG PO BID Diclofenac Sod (Voltaren), 4 GM TOP QID Diltiazem Hcl Ext Rel (Tiazac), 120 MG PO DAILY Docusate Sodium (Colace), 200 MG PO DAILY Duloxetine Hcl (Cymbalta), 60 MG PO QAM Duloxetine Hcl (Cymbalta), 30 MG PO QAM Fluticasone Propionate (Fluticasone Propionate), 2 SPRAYS GUADALUPE DAILY Gabapentin (Neurontin), 300 MG PO TID Home O2 Therapy (Oxygen), 3 LITERS NA PRN Hydroxychloroquine Sulfate (Plaquenil), 200 MG PO BID Levothyroxine Sodium (Synthroid), 88 MCG PO DAILY Ocuvite Preservision (Ocuvite Preservision), 1 TAB PO DAILY Oxycodone HCl (Oxycontin), 10 MG PO BID Prednisone (Prednisone), 2.5 MG PO DAILY Prednisone Tab (Prednisone), 10 MG PO QAM Quetiapine Fumarate (Seroquel), 100 MG PO HS Scheduled PRN Bisacodyl (Dulcolax), 5 TAB PO DAILY PRN for Constipation Furosemide (Lasix), 40 MG PO DAILY PRN for fluid retention Ondansetron Odt (Zofran Odt), 8 MG SL Q6H PRN for Nausea Polyethylene Glycol 3350 (Miralax), 17 GM PO DAILY PRN for Constipation Prazosin Hcl (Prazosin), 1 MG PO HS PRN for Sleep Allergies Coded Allergies: Ciprofloxacin (Verified Allergy, Intermediate, HIVES, 11/17/17) Quinolones (Verified Allergy, Intermediate, HIVES, 10/29/17) Fluticasone (Verified Allergy, Unknown, ADVAIR-UNKNOWN, 10/29/17) Lactose Intolerance (Verified Allergy, Unknown, GI UPSET, 11/17/17) Latex1 -Allergic Contact Dermititis (Verified Allergy, Unknown, RASH, ) Morphine (Verified Allergy, Unknown, NAUSEA AND VOMITING, 10/29/17) Nitrofurantoin (Verified Allergy, Unknown, HIVES, 11/17/17) Salmeterol (Verified Allergy, Unknown, ADVAIR, 10/29/17) Scallop (Verified Allergy, Unknown, THROAT SWELLS, 10/29/17) Celecoxib (Verified Adverse Reaction, Unknown, barretts esophagus, 11/17/17) Physical Exam Vital Signs Date Time Temp Pulse Resp B/P (MAP) Pulse Ox O2 Delivery O2 Flow Rate FiO2 11/17/17 17:18 102 20 114/52 93 Room Air 107 109/57 99 80/62 11/17/17 17:16 102 20 109/57 93 Room Air 11/17/17 15:29 36.6 106 20 130/69 93 Room Air Physical Exam GENERAL: Patient is in no acute distress. HEENT: No acute trauma, normocephalic atraumatic, mucous membranes are DRY, no nasal congestion, no scleral icterus. NECK: No stridor, no adenopathy, no meningismus, trachea is midline. LUNGS: There are crackles noted to the right base. There is no wheezing and breath sounds are equal. No respiratory distress on exam. HEART: Without murmurs gallops or rubs, regular rate and rhythm. ABDOMEN: Soft, there is a left-sided colostomy bag present with brown stool noted in the bag. Bowel sounds positive, no hernias, no peritonitis. EXTREMITIES: No cyanosis or edema, full range of motion of all the joints without pain or difficulty, no signs for acute trauma. NEUROLOGIC: Oriented x 3, no acute motor or sensory deficits, no focal weakness. There is no speech slur or facial droop. SKIN: No rash, no jaundice, no diaphoresis. Medical Decision & Procedures ER Provider Diagnostic Interpretation: Radiology results as stated below per my review and radiologist interpretation: CHEST ONE VIEW PORTABLE HISTORY: 86 years-old Female EVALUATE ALTERED MENTAL STATUS/WEAKNESS acutely altered mental status COMPARISON: Chest radiograph 10/29/2017 TECHNIQUE: Portable AP view of the chest FINDINGS: Patient is slightly rotated to the right. Cardiac silhouette is again mildly enlarged. Atherosclerosis of the aorta. Calcifications of the tracheobronchial tree are noted. There is no pneumothorax, pleural effusion, focal airspace consolidation or overt pulmonary edema. Mild right hemidiaphragmatic elevation. Degenerative changes are seen within the shoulders and spine. IMPRESSION: No acute process. The above report was generated using voice recognition software. It may contain grammatical, syntax or spelling errors. Electronically signed by: Michael Silva M.D. 11/17/2017 3:57 PM Dictated Date/Time: 11/17/2017 3:[address] NON[address]AST CT DOSE: 537.48 mGy.cm HISTORY: EVALUATE ALTERED MENTAL STATUS/WEAKNESS TECHNIQUE: Multiaxial CT images of the head were performed without the use of intravenous contrast. Automated exposure control was utilized for this study. A dose lowering technique was utilized adhering to the principles of ALARA. Comparison: Head CT 10/29/2017. Findings: The paranasal sinuses and mastoid air cells are clear. The calvarium and skull base are intact. There is no mass, hematoma, midline shift, acute infarct. White matter hypodensity is nonspecific but suggestive of microvascular ischemic change. The ventricles and sulci demonstrate mild age-related involutional changes. Impression: No significant change compared to the prior study. No acute intracranial abnormality. Electronically signed by: Osbaldo Washington M.D. 11/17/2017 4:42 PM Dictated Date/Time: 11/17/2017 4:30 PM [address]EN AND PELVIS CT WITH IV CONTRAST CT DOSE: 590.02 mGy.cm HISTORY: Acute generalized abdominal pain with leukocytosis ABD PAIN, POSS abscess or divertic--wbc elevated TECHNIQUE: Multiaxial CT images of the abdomen and pelvis were performed following the use of intravenous contrast. A dose lowering technique was utilized adhering to the principles of ALARA. COMPARISON STUDY: CT abdomen and pelvis 10/15/2017. FINDINGS: Mild dependent subsegmental bibasilar atelectasis. Small linear scar formation of the inferior segment lingula. No pneumatosis or pneumoperitoneum identified. Imaged inferior cardiac chambers are unremarkable. Prior cholecystectomy. Liver, spleen, and adrenal glands are unremarkable. Moderate to severe diffuse pancreatic atrophy. Common bile duct is mildly dilated at 10 mm, likely secondary to postcholecystectomy state. There is a mild renal prequel thinning are noted bilaterally. There are multiple bilateral nonobstructing nephrolithiasis measuring up to 4 mm, left than right. No ureteral calculi or obstructive uropathy identified. The distal portion of the ureters however are obscured secondary to streak artifact from hip arthroplasties. Urinary bladder is unremarkable. Prior hysterectomy. No adnexal mass lesions identified. Moderate mixed plaquing of the aorta without aneurysm. No bulky adenopathy. There is a small sliding-type hiatal hernia. No bowel obstruction. Postsurgical changes of the sigmoid colon. Normal appendix. Descending colostomy is noted with small parastomal hernia of mesenteric fat. Noninflamed colonic diverticula are noted. There is atrophy of the left psoas, iliacus and iliopsoas musculature. Diastases recti is noted along with small fat filled periumbilical hernia, diastases 1.5 cm. The bones appear moderately demineralized. Remote left-sided rib fractures are noted. Multilevel discogenic degenerative changes and facet arthropathy. Severe intervertebral disc space narrowing at L5-S1. IMPRESSION: 1. No acute intra-abdominal or intrapelvic abnormality identified. 2. Bilateral nephrolithiasis without ureteral calculi or obstructive uropathy. 3. Colonic diverticulosis without CT evidence of acute diverticulitis. 4. Normal appendix. 5. Additional findings as above. Electronically signed by: Michael Silva M.D. 11/17/2017 5:38 PM Dictated Date/Time: 11/17/2017 5:28 PM Laboratory Results 11/17/17 16:10 Red Blood Count 4.26, Mean Corpuscular Volume 92.0, Mean Corpuscular Hemoglobin 28.9, Mean Corpuscular Hemoglobin Concent 31.4, Mean Platelet Volume 10.1, Neutrophils (%) (Auto) 84.0, Lymphocytes (%) (Auto) 8.6, Monocytes (%) (Auto) 6.2, Eosinophils (%) (Auto) 0.6, Basophils (%) (Auto) 0.2, Neutrophils # (Auto) 13.64, Lymphocytes # (Auto) 1.39, Monocytes # (Auto) 1.01, Eosinophils # (Auto) 0.09, Basophils # (Auto) 0.04 11/17/17 16:10 Test 11/17/17 16:10 11/17/17 16:45 White Blood Count 16.24 K/uL (4.8-10.8) Red Blood Count 4.26 M/uL (4.2-5.4) Hemoglobin 12.3 g/dL (12.0-16.0) Hematocrit 39.2 % (37-47) Mean Corpuscular Volume 92.0 fL (80-100) Mean Corpuscular Hemoglobin 28.9 pg (25-34) Mean Corpuscular Hemoglobin Concent 31.4 g/dl (32-36) Platelet Count 240 K/uL (130-400) Mean Platelet Volume 10.1 fL (7.4-10.4) Neutrophils (%) (Auto) 84.0 % Lymphocytes (%) (Auto) 8.6 % Monocytes (%) (Auto) 6.2 % Eosinophils (%) (Auto) 0.6 % Basophils (%) (Auto) 0.2 % Neutrophils # (Auto) 13.64 K/uL (1.4-6.5) Lymphocytes # (Auto) 1.39 K/uL (1.2-3.4) Monocytes # (Auto) 1.01 K/uL (0.11-0.59) Eosinophils # (Auto) 0.09 K/uL (0-0.5) Basophils # (Auto) 0.04 K/uL (0-0.2) RDW Standard Deviation 51.3 fL (36.4-46.3) RDW Coefficient of Variation 15.3 % (11.5-14.5) Immature Granulocyte % (Auto) 0.4 % Immature Granulocyte # (Auto) 0.07 K/uL (0.00-0.02) Anion Gap 9.0 mmol/L (3-11) Est Creatinine Clear Calc Drug Dose 32.9 ml/min Estimated GFR () 46.2 Estimated GFR (Non- 39.9 BUN/Creatinine Ratio 13.4 (10-20) Calcium Level 9.2 mg/dl (8.5-10.1) Magnesium Level 2.2 mg/dl (1.8-2.4) Total Bilirubin 0.3 mg/dl (0.2-1) Aspartate Amino Transf (AST/SGOT) 18 U/L (15-37) Alanine Aminotransferase (ALT/SGPT) 30 U/L (12-78) Alkaline Phosphatase 83 U/L (45-117) Total Creatine Kinase 32 U/L (26-192) Troponin I < 0.015 ng/ml (0-0.045) Total Protein 7.4 gm/dl (6.4-8.2) Albumin 3.5 gm/dl (3.4-5.0) Globulin 3.9 gm/dl (2.5-4.0) Albumin/Globulin Ratio 0.9 (0.9-2) Thyroid Stimulating Hormone (TSH) 0.146 uIu/ml (0.300-4.500) Free Thyroxine 1.15 ng/dl (0.80-1.60) Urine Color YELLOW Urine Appearance CLEAR (CLEAR) Urine pH 6.5 (4.5-7.5) Urine Specific [place] 1.008 (1.000-1.030) Urine Protein NEG (NEG) Urine Glucose (UA) NEG (NEG) Urine Ketones NEG (NEG) Urine Occult Blood TRACE (NEG) Urine Nitrite NEG (NEG) Urine Bilirubin NEG (NEG) Urine Urobilinogen NEG (NEG) Urine Leukocyte Esterase SMALL (NEG) Urine WBC (Auto) 10-30 /hpf (0-5) Urine RBC (Auto) 0-4 /hpf (0-4) Urine Hyaline Casts (Auto) 1-5 /lpf (0-5) Urine Epithelial Cells (Auto) 10-20 /lpf (0-5) Urine Bacteria (Auto) NEG (NEG) Laboratory results reviewed by me. Medications Administered Medications (Trade) Dose Ordered Sig/Taye Route Start Time Stop Time Status Last Admin Dose Admin Sodium Chloride 1,000 ml @ 999 mls/hr Q1H1M STAT IV 11/17/17 15:41 11/17/17 16:41 DC 11/17/17 16:25 999 MLS/HR ECG Indication: weakness Rate (beats per minute): 100 Rhythm: normal sinus Findings: other (No evidence of ST elevation, No PVCs, no PACs ) Change: Patient's electrocardiogram interpreted by me. ED Course 1535: The patient was evaluated in room A11B. A complete history and physical exam was performed. 1541: Ordered Sodium Chloride 1000 mL @ 999 mL/hr IV. 1718: The nursing staff has told me that the patient's orthostatic vital signs are positive. Her blood pressure dropped to 80 systolically with standing despite receiving 1 liter of fluid. 1741: I checked on the patient at this time and updated her on the case. She is agreeable to admission. 1745: Ordered Sodium Chloride 500 mL @ 999 mL/hr IV. 175: I discussed the case with Dr. Anjel GUTIÉRREZ Hospitalist. He will evaluate the patient for further treatment. Medical Decision Differential Diagnosis includes; Dehydration, medication reaction, electrolyte imbalance, anemia, myocardial infarction, stroke, and urinary tract infection. There is a moderate leukocytosis, this could be consistent with infection. Her white count was around this same value though the last time it was tested. No anemia. No significant electrolyte abnormality, kidney failure or hepatitis. The patient's thyroid testing suggests the use of thyroid medication. Urinalysis shows some contamination, no obvious infection. Blood cultures are pending. Urine culture is pending. Chest film does not show pneumonia or CHF. Brain CT shows no acute bleed or mass effect. EKG shows a sinus rhythm, no acute ischemia. Cardiac enzyme testing times one is not consistent with acute cardiac injury. Abdominal and pelvis CT does not show diverticulitis or abscess. No bowel obstruction. The patient was given 1 L of IV saline. Orthostatic vital signs were done, her blood pressure dropped to 80 systolic with standing. She felt lightheaded. The patient is weak, dizzy and lightheaded. She is orthostatic and very likely dehydrated. I do think a hospital stay is warranted given the hypotension. The patient was given an additional 500 mL IV saline bolus. I spoke to the case management team. I talked with the patient. The on-call hospitalist was consulted. Of note, increasing her Seroquel several days ago may also be playing into her presentation today. The patient does admit that she began feeling worse the day she increased the Seroquel dosage. Medication Reconcilliation Current Medication List: was personally reviewed by me Blood Pressure Screening Orthostatically positive. Referred to Hospitalist Consults Time Called: 1745 Consulting Physician: Dr. Anjel GUTIÉRREZ Hospitalist Returned Call: [phone] I discussed the case with Dr. [place] [facility] [place] He will evaluate the patient for further treatment. Impression Primary Impression: Weakness Additional Impressions: Hypotension Dehydration Leukocytosis Scribe Attestation The scribe's documentation has been prepared under my direction and personally reviewed by me in its entirety. I confirm that the note above accurately reflects all work, treatment, procedures, and medical decision making performed by me. Departure Information Dispostion Being Evaluated By Hospitalist Referrals Nidhi Gardner MD (PCP) Patient Instructions My [facility] Problem Qualifiers
[2017-11-17] MEDS ORDERED: DEXL60CA4 PO (15:52)
--- NOTE | 2017-11-17 15:58 | DIAGNOSTIC IMAGING REPORT ---
CHEST ONE VIEW PORTABLE HISTORY: 86 years-old Female EVALUATE ALTERED MENTAL STATUS/WEAKNESS acutely altered mental status COMPARISON: Chest radiograph 10/29/2017 TECHNIQUE: Portable AP view of the chest FINDINGS: Patient is slightly rotated to the right. Cardiac silhouette is again mildly enlarged. Atherosclerosis of the aorta. Calcifications of the tracheobronchial tree are noted. There is no pneumothorax, pleural effusion, focal airspace consolidation or overt pulmonary edema. Mild right hemidiaphragmatic elevation. Degenerative changes are seen within the shoulders and spine. IMPRESSION: No acute process. The above report was generated using voice recognition software. It may contain grammatical, syntax or spelling errors. Electronically signed by: Michael Silva M.D. 11/17/2017 3:57 PM Dictated Date/Time: 11/17/2017 3:56 PM
[2017-11-17] MEDS ORDERED: BISA-16 PO (16:00)
[2017-11-17] MEDS ORDERED: FRS/40 PO (16:05)
[2017-11-17] MEDS ORDERED: CYAN10005 PO (16:08)
[2017-11-17] MEDS ORDERED: DOCU-94 PO (16:10)
[2017-11-17] MEDS ORDERED: MULT-190 PO (16:12)
[2017-11-17] MEDS ORDERED: PRD/25 PO (16:16)
[2017-11-17] MEDS ORDERED: PRAZ1CAP10 PO (16:18)
[2017-11-17] MEDS ORDERED: FLNIN NAE (16:20)
--- NOTE | 2017-11-17 16:43 | DIAGNOSTIC IMAGING REPORT ---
HEAD CT NONCONTRAST CT DOSE: 537.48 mGy.cm HISTORY: EVALUATE ALTERED MENTAL STATUS/WEAKNESS TECHNIQUE: Multiaxial CT images of the head were performed without the use of intravenous contrast. Automated exposure control was utilized for this study. A dose lowering technique was utilized adhering to the principles of ALARA. Comparison: Head CT 10/29/2017. Findings: The paranasal sinuses and mastoid air cells are clear. The calvarium and skull base are intact. There is no mass, hematoma, midline shift, acute infarct. White matter hypodensity is nonspecific but suggestive of microvascular ischemic change. The ventricles and sulci demonstrate mild age-related involutional changes. Impression: No significant change compared to the prior study. No acute intracranial abnormality. Electronically signed by: Osbaldo Washington M.D. 11/17/2017 4:42 PM Dictated Date/Time: 11/17/2017 4:30 PM
[2017-11-17 16:45] LABS: BASO % 0.2 %; BASO ABS # 0.04 K/uL (0-0.2); EOS % 0.6 %; EOS ABS # 0.09 K/uL (0-0.5); HEMATOCRIT 39.2 % (37-47); HEMOGLOBIN 12.3 g/dL (12.0-16.0); IG# 0.07 K/uL (0.00-0.02); LYMPH % 8.6 %; LYMPH ABS # 1.39 K/uL (1.2-3.4); MEAN CORPUSCULAR HEMOGLOBIN 28.9 pg (25-34); MEAN CORPUSCULAR HGB CONC 31.4 g/dl (32-36); MEAN PLATELET VOLUME 10.1 fL (7.4-10.4); MONO % 6.2 %; MONO ABS # 1.01 K/uL (0.11-0.59); NEUT ABS # 13.64 K/uL (1.4-6.5); PLATELET COUNT 240 K/uL (130-400); RED CELL DISTRIBUTION WIDTH CV 15.3 % (11.5-14.5); RED CELL DISTRIBUTION WIDTH SD 51.3 fL (36.4-46.3); WHITE BLOOD COUNT 16.24 K/uL (4.8-10.8)
[2017-11-17 17:05] LABS: ALBUMIN 3.5 gm/dl (3.4-5.0); ALT/SGPT 30 U/L (12-78); BLOOD UREA NITROGEN 17 mg/dl (7-18); CALCIUM 9.2 mg/dl (8.5-10.1); CARBON DIOXIDE 31 mmol/L (21-32); CREATININE 1.24 mg/dl (0.60-1.20); GLUCOSE 133 mg/dl (70-99); POTASSIUM 3.5 mmol/L (3.5-5.1); SODIUM 138 mmol/L (136-145)
[2017-11-17 17:12] LABS: ALKALINE PHOSPHATASE 83 U/L (45-117); AST/SGOT 18 U/L (15-37); TOTAL PROTEIN 7.4 gm/dl (6.4-8.2)
[2017-11-17] MEDS ORDERED: OPTIRAY 320 IV PRN (17:15)
--- NOTE | 2017-11-17 17:39 | DIAGNOSTIC IMAGING REPORT ---
ABDOMEN AND PELVIS CT WITH IV CONTRAST CT DOSE: 590.02 mGy.cm HISTORY: Acute generalized abdominal pain with leukocytosis ABD PAIN, POSS abscess or divertic--wbc elevated TECHNIQUE: Multiaxial CT images of the abdomen and pelvis were performed following the use of intravenous contrast. A dose lowering technique was utilized adhering to the principles of ALARA. COMPARISON STUDY: CT abdomen and pelvis 10/15/2017. FINDINGS: Mild dependent subsegmental bibasilar atelectasis. Small linear scar formation of the inferior segment lingula. No pneumatosis or pneumoperitoneum identified. Imaged inferior cardiac chambers are unremarkable. Prior cholecystectomy. Liver, spleen, and adrenal glands are unremarkable. Moderate to severe diffuse pancreatic atrophy. Common bile duct is mildly dilated at 10 mm, likely secondary to postcholecystectomy state. There is a mild renal prequel thinning are noted bilaterally. There are multiple bilateral nonobstructing nephrolithiasis measuring up to 4 mm, left than right. No ureteral calculi or obstructive uropathy identified. The distal portion of the ureters however are obscured secondary to streak artifact from hip arthroplasties. Urinary bladder is unremarkable. Prior hysterectomy. No adnexal mass lesions identified. Moderate mixed plaquing of the aorta without aneurysm. No bulky adenopathy. There is a small sliding-type hiatal hernia. No bowel obstruction. Postsurgical changes of the sigmoid colon. Normal appendix. Descending colostomy is noted with small parastomal hernia of mesenteric fat. Noninflamed colonic diverticula are noted. There is atrophy of the left psoas, iliacus and iliopsoas musculature. Diastases recti is noted along with small fat filled periumbilical hernia, diastases 1.5 cm. The bones appear moderately demineralized. Remote left-sided rib fractures are noted. Multilevel discogenic degenerative changes and facet arthropathy. Severe intervertebral disc space narrowing at L5-S1. IMPRESSION: 1. No acute intra-abdominal or intrapelvic abnormality identified. 2. Bilateral nephrolithiasis without ureteral calculi or obstructive uropathy. 3. Colonic diverticulosis without CT evidence of acute diverticulitis. 4. Normal appendix. 5. Additional findings as above. Electronically signed by: Michael Silva M.D. 11/17/2017 5:38 PM Dictated Date/Time: 11/17/2017 5:28 PM
[2017-11-17] MEDS ORDERED: SODIUM CHLORIDE 0.9% 500ML 500 ML IV STA (17:45)
[2017-11-17] MEDS ORDERED: MAGNESIUM HYDROXIDE SUSP 30 ML UDC PO PRN (18:30)
[2017-11-17] MEDS ORDERED: ACETAMINOPHEN 325 MG TAB PO PRN (18:30)
[2017-11-17] MEDS ORDERED: ONDANSETRON INJ 2 MG/ML 2 ML VIAL IV PRN (18:30)
[2017-11-17] MEDS ORDERED: ALUMINUM/MAGNESIUM/SIMETH (MAALOX MAX) 30 ML UDC PO PRN (18:30)
[2017-11-17] MEDS ORDERED: BISACODYL 5 MG TABEC PO PRN ×2 (18:30→19:00)
[2017-11-17] MEDS ORDERED: POLYETHYLENE (MIRALAX) 17 GM PACK PO PRN (18:30)
--- NOTE | 2017-11-17 18:43 | History and Physical ---
History & Physical Date & Time of Service: Nov 17, 2017 at 18:42 Chief Complaint: Nausea, Lightheaded Primary Care Physician: Nidhi Gardner MD History of Present Illness Source: patient Ms. Neal is an 86 y/o female with PMHx of T2DM (Diet Controlled), RA, Lupus, OA, Recurrent UTIs, and Recent C. Diff who presents to the ED c/o dizziness/lightheadedness x 5 days. Patient has had recent admissions for recurrent UTIs and C. Diff. She states she is currently on Vancomycin but should have finished this yesterday but thinks she has until next week? Do not see in records that this was extended. She states her stool output has been stable and does not appear to be too much. She has not had to change her colostomy bag at all today. She states she takes Miralax but stopped this 2 days ago because the stool has been staying loose on its own. She does report a strong odor and she isn't sure if its her urine or her colostomy bag. In regards to her dizziness, she notices the most dizziness when she gets up to ambulate. She feels like she might fall when this happens but reports no falls. She feels that she has been generally weak since discharge from the hospital. Reviewing multiple stays generalized weakness has been common for her and unfortunately rehab was not approved during the one stay and HHS was initiated. She does report her Seroquel was increased approx. 4 days ago from 100 to 150 mg daily by her Psychiatrist. She states that she feels like her issues started when this happened. She states the higher dose almost instantly puts her to sleep and she is more groggy in the morning. She feels that she has been eating and drinking as normal and denies any other recent illness. She reports having her flu vaccine and denies exposure. In the ED she is significantly orthostatic and reports a significant dry mouth. Past Medical/Surgical History Medical Problems: (1) Arthritis Status: Chronic (2) Asthma Status: Chronic (3) Cholecystectomy Status: Resolved (4) Chronic back pain Status: Chronic (5) Depression Status: Chronic (6) Diverticulitis Status: Chronic (7) Gastroesophageal reflux disease Status: Chronic (8) Hyperlipidemia Status: Chronic (9) Hypothyroidism Status: Chronic (10) IBS Status: Chronic (11) Impacted cerumen Status: Chronic (12) Lupus Status: Chronic (13) Osteoarthritis Status: Chronic (14) Pituitary adenoma Status: Chronic (15) pituitary gland removal Status: Chronic (16) TIA Status: Chronic (17) Vasovagal syncope Status: Chronic Surgical Problems: (1) H/O: hysterectomy Status: Chronic (2) History of hip replacement Status: Chronic (3) Hx of cholecystectomy Status: Chronic Family History Cancer Diabetes mellitus Gallbladder disease Heart disease Hypertension Kidney disease Kidney stones Seizures Social History Smoking Status: Never Smoker Smokeless Tobacco Use: No Alcohol Use: none Drug Use: none Marital Status: Housing status: lives alone Occupational Status: retired Immunizations History of Influenza Vaccine: N/A Influenza Vaccine Date: Jul 24, 2007 History of Tetanus Vaccine?: UTD History of Pneumococcal: Yes Pneumococcal Date: May 09, 1990 History of Hepatitis B Vaccine: Yes Hepatitis Immunization Date: May 09, 1985 Multi-Drug Resistant Organisms History of MDRO: No Allergies Coded Allergies: Ciprofloxacin (Verified Allergy, Intermediate, HIVES, 11/17/17) Quinolones (Verified Allergy, Intermediate, HIVES, 10/29/17) Fluticasone (Verified Allergy, Unknown, ADVAIR-UNKNOWN, 10/29/17) Lactose Intolerance (Verified Allergy, Unknown, GI UPSET, 11/17/17) Latex1 -Allergic Contact Dermititis (Verified Allergy, Unknown, RASH, ) Morphine (Verified Allergy, Unknown, NAUSEA AND VOMITING, 10/29/17) Nitrofurantoin (Verified Allergy, Unknown, HIVES, 11/17/17) Salmeterol (Verified Allergy, Unknown, ADVAIR, 10/29/17) Scallop (Verified Allergy, Unknown, THROAT SWELLS, 10/29/17) Celecoxib (Verified Adverse Reaction, Unknown, barretts esophagus, 11/17/17) Home Medications Scheduled Ascorbic Acid (Ascorbic Acid), 500 MG PO DAILY Aspirin (Aspirin Ec), 81 MG PO QAM B-Complex Vitamins (B Complex), 1 CAP PO DAILY Cholecalciferol (Vitamin D3), 2,000 UNITS PO DAILY Cyanocobalamin (Vitamin B-12), 1,000 MCG PO DAILY Dexlansoprazole (Dexilant), 60 MG PO BID Diclofenac Sod (Voltaren), 4 GM TOP QID Diltiazem Hcl Ext Rel (Tiazac), 120 MG PO DAILY Docusate Sodium (Colace), 200 MG PO DAILY Duloxetine Hcl (Cymbalta), 60 MG PO QAM Duloxetine Hcl (Cymbalta), 30 MG PO QAM Fluticasone Propionate (Fluticasone Propionate), 2 SPRAYS GUADALUPE DAILY Gabapentin (Neurontin), 300 MG PO TID Home O2 Therapy (Oxygen), 3 LITERS NA PRN Hydroxychloroquine Sulfate (Plaquenil), 200 MG PO BID Levothyroxine Sodium (Synthroid), 88 MCG PO DAILY Ocuvite Preservision (Ocuvite Preservision), 1 TAB PO DAILY Oxycodone HCl (Oxycontin), 10 MG PO BID Prednisone (Prednisone), 2.5 MG PO DAILY Prednisone Tab (Prednisone), 10 MG PO QAM Quetiapine Fumarate (Seroquel), 100 MG PO HS Scheduled PRN Bisacodyl (Dulcolax), 5 TAB PO DAILY PRN for Constipation Furosemide (Lasix), 40 MG PO DAILY PRN for fluid retention Ondansetron Odt (Zofran Odt), 8 MG SL Q6H PRN for Nausea Polyethylene Glycol 3350 (Miralax), 17 GM PO DAILY PRN for Constipation Prazosin Hcl (Prazosin), 1 MG PO HS PRN for Sleep Review of Systems General/Constitutional: + generalized weakness; Denies fever/chills ENT: Denies visual changes, nasal drainage, hearing loss, sore throat, trouble swallowing Cardiovascular: Denies chest pain, palpitations, edema Respiratory: Denies cough, sputum, SOB, wheezing, orthopnea GI: + nausea, + loose stool; Denies vomiting, abdominal pain, constipation, melena/hematochezia : Denies dysuria, frequency, hematuria Musculoskeletal: + chronic diffuse joint pain (unchanged); Denies weakness, swelling Neurologic: + dizziness/lightheadedness; Denies numbness/tingling, weakness Hematologic/Lymphatic: Denies bleeding/clotting abnormalities Skin: Denies rash Physical Exam Vital Signs Date Time Temp Pulse Resp B/P (MAP) Pulse Ox O2 Delivery O2 Flow Rate FiO2 11/17/17 17:18 102 20 114/52 93 Room Air 107 109/57 99 80/62 11/17/17 17:16 102 20 109/57 93 Room Air 11/17/17 15:29 36.6 106 20 130/69 93 Room Air General Appearance: WDWN in NAD who is A&O x 3 HEENT: Head is normocephalic/atraumatic; EOMI; PERRLA; Hearing grossly intact; Mucous membranes dry; Pharynx negative for exudate/lesions Neck: Supple; Trachea midline; Neg JVD Heart: RRR with no M/G/R Lungs: CTA in all lung gaston bilaterally; Respirations unlabored; Neg accessory muscle use Abdomen: Soft, non-tender, non-distended; Positive BS x 4 quadrants; + colostomy in LLQ with green loose stool Extremities: Capillary refill < 2 seconds; Neg cyanosis or edema Neurological: Speech clear; Gross motor/sensory function intact; Neg focal neurologic deficits Psychiatric: Appropriate mood/affect Skin: Normal Color; Warm/Dry Diagnostics Laboratory Results Results Past 24 Hours Test 11/17/17 16:10 11/17/17 16:45 Range/Units White Blood Count 16.24 4.8-10.8 K/uL Red Blood Count 4.26 4.2-5.4 M/uL Hemoglobin 12.3 12.0-16.0 g/dL Hematocrit 39.2 37-47 % Mean Corpuscular Volume 92.0 80-100 fL Mean Corpuscular Hemoglobin 28.9 25-34 pg Mean Corpuscular Hemoglobin Concent 31.4 32-36 g/dl Platelet Count 240 130-400 K/uL Mean Platelet Volume 10.1 7.4-10.4 fL Neutrophils (%) (Auto) 84.0 % Lymphocytes (%) (Auto) 8.6 % Monocytes (%) (Auto) 6.2 % Eosinophils (%) (Auto) 0.6 % Basophils (%) (Auto) 0.2 % Neutrophils # (Auto) 13.64 1.4-6.5 K/uL Lymphocytes # (Auto) 1.39 1.2-3.4 K/uL Monocytes # (Auto) 1.01 0.11-0.59 K/uL Eosinophils # (Auto) 0.09 0-0.5 K/uL Basophils # (Auto) 0.04 0-0.2 K/uL RDW Standard Deviation 51.3 36.4-46.3 fL RDW Coefficient of Variation 15.3 11.5-14.5 % Immature Granulocyte % (Auto) 0.4 % Immature Granulocyte # (Auto) 0.07 0.00-0.02 K/uL Sodium Level 138 136-145 mmol/L Potassium Level 3.5 3.5-5.1 mmol/L Chloride Level 98 98-107 mmol/L Carbon Dioxide Level 31 21-32 mmol/L Anion Gap 9.0 3-11 mmol/L Blood Urea Nitrogen 17 7-18 mg/dl Creatinine 1.24 0.60-1.20 mg/dl Est Creatinine Clear Calc Drug Dose 32.9 ml/min Estimated GFR () 46.2 Estimated GFR (Non- 39.9 BUN/Creatinine Ratio 13.4 10-20 Random Glucose 133 70-99 mg/dl Calcium Level 9.2 8.5-10.1 mg/dl Magnesium Level 2.2 1.8-2.4 mg/dl Total Bilirubin 0.3 0.2-1 mg/dl Aspartate Amino Transf (AST/SGOT) 18 15-37 U/L Alanine Aminotransferase (ALT/SGPT) 30 12-78 U/L Alkaline Phosphatase 83 45-117 U/L Total Creatine Kinase 32 26-192 U/L Troponin I < 0.015 0-0.045 ng/ml Total Protein 7.4 6.4-8.2 gm/dl Albumin 3.5 3.4-5.0 gm/dl Globulin 3.9 2.5-4.0 gm/dl Albumin/Globulin Ratio 0.9 0.9-2 Thyroid Stimulating Hormone (TSH) 0.146 0.300-4.500 uIu/ml Free Thyroxine 1.15 0.80-1.60 ng/dl Urine Color YELLOW Urine Appearance CLEAR CLEAR Urine pH 6.5 4.5-7.5 Urine Specific [place] 1.008 1.000-1.030 Urine Protein NEG NEG Urine Glucose (UA) NEG NEG Urine Ketones NEG NEG Urine Occult Blood TRACE NEG Urine Nitrite NEG NEG Urine Bilirubin NEG NEG Urine Urobilinogen NEG NEG Urine Leukocyte Esterase SMALL NEG Urine WBC (Auto) 10-30 0-5 /hpf Urine RBC (Auto) 0-4 0-4 /hpf Urine Hyaline Casts (Auto) 1-5 0-5 /lpf Urine Epithelial Cells (Auto) 10-20 0-5 /lpf Urine Bacteria (Auto) NEG NEG Microbiology Results 11/17/17 Blood Culture, Received Pending 11/17/17 Blood Culture, Received Pending 11/17/17 Urine Culture, Received Pending Diagnostic Radiology ABDOMEN AND PELVIS CT WITH IV CONTRAST FINDINGS: Mild dependent subsegmental bibasilar atelectasis. Small linear scar formation of the inferior segment lingula. No pneumatosis or pneumoperitoneum identified. Imaged inferior cardiac chambers are unremarkable. Prior cholecystectomy. Liver, spleen, and adrenal glands are unremarkable. Moderate to severe diffuse pancreatic atrophy. Common bile duct is mildly dilated at 10 mm, likely secondary to postcholecystectomy state. There is a mild renal prequel thinning are noted bilaterally. There are multiple bilateral nonobstructing nephrolithiasis measuring up to 4 mm, left than right. No ureteral calculi or obstructive uropathy identified. The distal portion of the ureters however are obscured secondary to streak artifact from hip arthroplasties. Urinary bladder is unremarkable. Prior hysterectomy. No adnexal mass lesions identified. Moderate mixed plaquing of the aorta without aneurysm. No bulky adenopathy. There is a small sliding-type hiatal hernia. No bowel obstruction. Postsurgical changes of the sigmoid colon. Normal appendix. Descending colostomy is noted with small parastomal hernia of mesenteric fat. Noninflamed colonic diverticula are noted. There is atrophy of the left psoas, iliacus and iliopsoas musculature. Diastases recti is noted along with small fat filled periumbilical hernia, diastases 1.5 cm. The bones appear moderately demineralized. Remote left-sided rib fractures are noted. Multilevel discogenic degenerative changes and facet arthropathy. Severe intervertebral disc space narrowing at L5-S1. IMPRESSION: 1. No acute intra-abdominal or intrapelvic abnormality identified. 2. Bilateral nephrolithiasis without ureteral calculi or obstructive uropathy. 3. Colonic diverticulosis without CT evidence of acute diverticulitis. 4. Normal appendix. 5. Additional findings as above. CHEST ONE VIEW PORTABLE FINDINGS: Patient is slightly rotated to the right. Cardiac silhouette is again mildly enlarged. Atherosclerosis of the aorta. Calcifications of the tracheobronchial tree are noted. There is no pneumothorax, pleural effusion, focal airspace consolidation or overt pulmonary edema. Mild right hemidiaphragmatic elevation. Degenerative changes are seen within the shoulders and spine. IMPRESSION: No acute process. HEAD CT NONCONTRAST TECHNIQUE: Multiaxial CT images of the head were performed without the use of intravenous contrast. Automated exposure control was utilized for this study. A dose lowering technique was utilized adhering to the principles of ALARA. Comparison: Head CT 10/29/2017. Findings: The paranasal sinuses and mastoid air cells are clear. The calvarium and skull base are intact. There is no mass, hematoma, midline shift, acute infarct. White matter hypodensity is nonspecific but suggestive of microvascular ischemic change. The ventricles and sulci demonstrate mild age-related involutional changes. Impression: No significant change compared to the prior study. No acute intracranial abnormality. EKG Normal sinus rhythm Normal ECG When compared with ECG of 29-OCT-2017 09:46, No significant change was found Impression Assessment and Plan Ms. Neal is an 86 y/o female with PMHx of T2DM (Diet Controlled), RA, Lupus, OA, Recurrent UTIs, CAD, HTN, Hypothyroidism, and Recent C. Diff who presents to the ED c/o dizziness/lightheadedness x 5 days. Dehydration with Positive Orthostatics: - 1500 cc given in ED with no improvement in BPs - Patient appears clinically dry and will continue to hydrate with NSS at 100 mL /hr x 2 bags and reassess to prevent fluid overload - Random cortisol 12 and will give Solu-Cortef 100 mg IV x 1 dose for suspected adrenal insufficiency - is on chronic Prednisone 12.5 mg daily - Hold Diltiazem - Continue Seroquel at previous dose of 100 mg (states approx 4 days ago this was increased to 150 mg HS and she thinks this may be related) Leukocytosis: - Steroid induced vs infectious? She reports she is currently on Vancomycin and believes she is supposed to take this until next week however previous admission script should have ran out on 11/16 and do not see outpatient notes showing extending this - UA unremarkable but will obtain Cx given her history and BCx - Will hold on further antibiotics at this time given recent C. diff -- She states she has been taking Miralax daily up until 2 days ago as the stools have stayed loose on their own but not reporting increased output - Check for influenza Code Status: FULL RESUSCITATION Disposition: - PT/OT evaluations Resident Physician Supervision Note: I was present with the PA Pola Baez during the history and exam. I discussed the case with the PA and agree with the findings and plan as documented in the note. Any exceptions or clarifications are listed here: 86 y/o F DM II, RA, Lupus, OA, Recurrent UTIs, and Recent C. diff - presenting with lightheadedness and increased output from colostomy - pt was markedly hypotensive on arrival to the ER - responded to IVF - she is currently being treated for C. diff OE AAO x 3 S1,2 R CTAB NT, ND - liquid stool in colostomy bag No CCE No Deficits P: Pt is dehydrated and hypotensive without evidence of sepsis. We did draw a random cortisol which may be ow in context of persistent hypertension. She was then provided with a dose of Solucortef and may need additional w/u for adrenal insuff as she is chronically on Prednisone. For now we will attempt fluid resuscitation until AM. She is placed on a SS for DM We will cont Vanc for Cdiff Cultures obtained although this is less likely to be due to an occult infection or worsening of Cdiff presently Documented By: Zach Hobbs Level of Care Med/Surg Resuscitation Status FULL RESUSCITATION VTE Prophylaxis VTE Risk Assessment Done? Y/N: Yes Risk Level: Moderate Given or contraindicated: SCD's
[2017-11-17 19:24] LABS: INFLUENZA B ANTIGEN Neg for Influ B (NEG)
[2017-11-17 19:58] VITALS: BP 142/72; PULSE 111; TEMP 36.8; O2SAT 97
[2017-11-17 20:03] VITALS: BP 142/72; PULSE 111; TEMP 36.8; O2SAT 97; Ht 160 cm; Wt 75.6 kg
[2017-11-17] MEDS ORDERED: HYDROCORTISONE IV 100 MG in SYRINGE 0 ML IV ONE (20:30)
[2017-11-17] MEDS: SODIUM CHLORIDE 0.9% 1000ML 1,000 ML IV SCH (20:40)
[2017-11-17] MEDS: QUETIAPINE FUMARATE 100 MG TAB PO SCH (20:41)
[2017-11-17] MEDS: HYDROXYCHLOROQUINE SULFATE 200 MG TAB PO SCH (20:41)
[2017-11-17] MEDS: GABAPENTIN 300 MG CAP PO SCH (20:42)
[2017-11-17] MEDS: DICLOFENAC SOD 1% GEL 100 GM TUBE EXT SCH (20:43)
[2017-11-17] MEDS: OXYCODONE HCL 10 MG TABCR (OXYCONTIN) PO SCH (20:48)
[2017-11-17] MEDS ORDERED: NON-FORMULARY MEDICATION (Dexlansoprazole (Dexilant) 60 MG) PO SCH (21:00)
[2017-11-17] MEDS ORDERED: MICONAZOLE NITRATE POWDER 43 GM EXT PRN (21:30)
[2017-11-17 23:00] VITALS: BP 152/79; PULSE 102; TEMP 37.2; O2SAT 93
[2017-11-17 23:01] VITALS: BP_SYST 139; BP_SYST 143; BP_DIAS 82; BP_DIAS 84; PULSE 105; PULSE 109
[2017-11-18] MEDS: LEVOTHYROXINE 88 MCG TAB PO SCH (04:13)
[2017-11-18] MEDS: SODIUM CHLORIDE 0.9% 1000ML 1,000 ML IV SCH (04:13)
[2017-11-18 07:30] VITALS: BP 110/58; PULSE 91; TEMP 36.6; O2SAT 92
[2017-11-18 08:21] LABS: HEMATOCRIT 33.9 % (37-47); HEMOGLOBIN 10.4 g/dL (12.0-16.0); MEAN CELL VOLUME 91.9 fL (80-100); MEAN CORPUSCULAR HEMOGLOBIN 28.2 pg (25-34); MEAN CORPUSCULAR HGB CONC 30.7 g/dl (32-36); MEAN PLATELET VOLUME 9.4 fL (7.4-10.4); PLATELET COUNT 220 K/uL (130-400); RED CELL DISTRIBUTION WIDTH CV 15.3 % (11.5-14.5); RED CELL DISTRIBUTION WIDTH SD 51.6 fL (36.4-46.3); WHITE BLOOD COUNT 12.54 K/uL (4.8-10.8)
[2017-11-18] MEDS: DULOXETINE (CYMBALTA) 30 MG CAP PO SCH (08:38)
[2017-11-18] MEDS: OXYCODONE HCL 10 MG TABCR (OXYCONTIN) PO SCH ×2 (08:38→19:42)
[2017-11-18] MEDS: CYANOCOBALAMIN 500 MCG TAB (VIT B-12) PO SCH (08:38)
[2017-11-18] MEDS: DULOXETINE HCL 60 MG CAP PO SCH (08:39)
[2017-11-18] MEDS: DOCUSATE SODIUM 100 MG CAP PO SCH (08:39)
[2017-11-18] MEDS: CEROVITE ADV FORMULA TAB PO SCH (08:39)
[2017-11-18] MEDS: GABAPENTIN 300 MG CAP PO SCH ×3 (08:40→19:41)
[2017-11-18] MEDS: ASCORBIC ACID 500 MG TAB PO SCH (08:40)
[2017-11-18] MEDS: HYDROXYCHLOROQUINE SULFATE 200 MG TAB PO SCH ×2 (08:40→19:42)
[2017-11-18] MEDS: ASPIRIN 81 MG ECTAB PO SCH (08:40)
[2017-11-18] MEDS: CHOLECALCIFEROL 1000 INTER.UNIT TAB PO SCH (08:41)
[2017-11-18] MEDS: FLUTICASONE PROPIONATE NA SPR 16 GM BTL NAE SCH (08:41)
[2017-11-18] MEDS: DICLOFENAC SOD 1% GEL 100 GM TUBE EXT SCH ×4 (08:43→19:41)
[2017-11-18 08:55] LABS: CALCIUM 8.2 mg/dl (8.5-10.1); CREATININE 1.02 mg/dl (0.60-1.20); POTASSIUM 3.7 mmol/L (3.5-5.1)
[2017-11-18] MEDS ORDERED: DILTIAZEM HCL 120 MG EXT REL CAP PO SCH (09:00)
--- NOTE | 2017-11-18 11:43 | Medical Student: [facility] ---
Med Student History & Physical Date & Time of Service: Nov 18, 2017 at 11:20 Chief Complaint: Dehydration, Hypotension Primary Care Physician: Nidhi Gardner MD History of Present Illness Source: patient, family Sheridan is an 86-year-old female with a complicated medical history that includes recent C. diff infection and recurrent UTIs that presented to the ED 11/17 with dizziness/lightheadedness and orthostasis. She was being seen by home health physical therapy yesterday, and they noticed her blood pressure falling to 70/40 whenever she stood up and called the ambulance. Patient states that she has felt more dizzy and week for the last 5 day, after her psychiatrist increased her dose of Seroquel from 100 mg to 150 mg. She says she has felt exceedingly tired and has only been able to tolerate getting up for breakfast, after which she goes back to bed for most of the day. She was in the hospital two weeks ago for a UTI and bronchitis and subsequently developed C diff, for which she was treated with PO vancomycin. Her antiobotic course should be finished tomorrow. Patient is also on chronic steroids for her lupus and RA and has a vague history of adrenal insufficiency. In the ED, patient was given 1.5 L IV NSS with no increase in blood pressure. CXR showed no acute processes, head CT showed no change since her last one done 10/29, and abd CT showed no acute processes. WBC was increased at 16.24, some question about infection vs chronic steroid use. Today she is feeling better after rehydration. She says that her colostomy is doing well and that she does not notice any changes in stool. Denies fever, chills, headache, shortness of breath, cough, nausea, vomiting, abdominal pain, dysuria. Past Medical/Surgical History Medical Problems: (1) Abdominal pain Status: Acute (2) Altered mental status Status: Acute (3) Anxiety Status: Acute (4) Chronic low back pain Status: Acute (5) COPD (chronic obstructive pulmonary disease) Status: Acute (6) Dehydration Status: Acute (7) Dehydration Status: Acute (8) Dehydration Status: Acute (9) Drowsiness Status: Acute (10) Failure of outpatient treatment Status: Acute (11) Fever Status: Acute (12) Hypotension Status: Acute (13) Inability to bear weight Status: Acute (14) Inferior pubic ramus fracture Status: Acute (15) Insomnia Status: Acute (16) Leukocytosis Status: Acute (17) Leukocytosis Status: Acute (18) Leukocytosis Status: Acute (19) Leukocytosis Status: Acute (20) Leukocytosis Status: Acute (21) Peripheral edema Status: Acute (22) Pyelonephritis Status: Acute (23) Pyelonephritis Status: Acute (24) Sepsis Status: Acute (25) Stroke-like symptoms Status: Acute (26) Suicidal ideation Status: Acute (27) Urinary frequency Status: Acute (28) UTI (urinary tract infection) Status: Acute (29) Weakness Status: Acute (30) Weakness Status: Acute (31) Weakness Status: Acute (32) Weakness Status: Acute (33) Weakness Status: Acute Family History Other: heart disease, diabetes, cancer Social History Smoking Status: Never Smoker Smokeless Tobacco Use: No Alcohol Use: none Drug Use: none Marital Status: Housing status: lives alone Occupational Status: retired Immunizations History of Influenza Vaccine: N/A Influenza Vaccine Date: Jul 24, 2007 History of Tetanus Vaccine?: UTD History of Pneumococcal: Yes Pneumococcal Date: May 09, 1990 History of Hepatitis B Vaccine: Yes Hepatitis Immunization Date: May 09, 1985 Allergies Coded Allergies: Ciprofloxacin (Verified Allergy, Intermediate, HIVES, 11/17/17) Quinolones (Verified Allergy, Intermediate, HIVES, 10/29/17) Fluticasone (Verified Allergy, Unknown, ADVAIR-UNKNOWN, 10/29/17) Lactose Intolerance (Verified Allergy, Unknown, GI UPSET, 11/17/17) Latex1 -Allergic Contact Dermititis (Verified Allergy, Unknown, RASH, ) Morphine (Verified Allergy, Unknown, NAUSEA AND VOMITING, 10/29/17) Nitrofurantoin (Verified Allergy, Unknown, HIVES, 11/17/17) Salmeterol (Verified Allergy, Unknown, ADVAIR, 10/29/17) Scallop (Verified Allergy, Unknown, THROAT SWELLS, 10/29/17) Celecoxib (Verified Adverse Reaction, Unknown, barretts esophagus, 11/17/17) Medications Ascorbic Acid (Ascorbic Acid), 500 MG PO DAILY Aspirin (Aspirin Ec), 81 MG PO QAM B-Complex Vitamins (B Complex), 1 CAP PO DAILY Bisacodyl (Dulcolax), 5 TAB PO DAILY PRN for Constipation Cholecalciferol (Vitamin D3), 2,000 UNITS PO DAILY Ciprofloxacin (Cipro), 250 MG PO BID Cyanocobalamin (Vitamin B-12), 1,000 MCG PO DAILY Dexlansoprazole (Dexilant), 60 MG PO BID Diclofenac Sod (Voltaren), 4 GM TOP QID Diltiazem Hcl Ext Rel (Tiazac), 120 MG PO DAILY Diphenhydramine Hcl (Benadryl), 25 MG PO BID@0830,2030 Docusate Sodium (Colace), 200 MG PO DAILY Duloxetine Hcl (Cymbalta), 60 MG PO QAM Duloxetine Hcl (Cymbalta), 30 MG PO QAM Fluticasone Propionate (Fluticasone Propionate), 2 SPRAYS GUADALUPE DAILY Furosemide (Lasix), 40 MG PO DAILY PRN for fluid retention Gabapentin (Neurontin), 300 MG PO TID Home O2 Therapy (Oxygen), 3 LITERS NA PRN Hydroxychloroquine Sulfate (Plaquenil), 200 MG PO BID Levothyroxine Sodium (Synthroid), 88 MCG PO DAILY Ocuvite Preservision (Ocuvite Preservision), 1 TAB PO DAILY Ondansetron Odt (Zofran Odt), 8 MG SL Q6H PRN for Nausea Oxycodone HCl (Oxycontin), 10 MG PO BID Polyethylene Glycol 3350 (Miralax), 17 GM PO DAILY PRN for Constipation Prazosin Hcl (Prazosin), 1 MG PO HS PRN for Sleep Prednisone (Prednisone), 2.5 MG PO DAILY Prednisone Tab (Prednisone), 10 MG PO QAM Quetiapine Fumarate (Seroquel), 100 MG PO HS Review of Systems Constitutional: + weakness, + problem reported (lightheaded), No fever, No chills Eyes: No worsening of vision ENT: No hearing loss, No unusual epistaxis Respiratory: No cough, No wheezing Cardiovascular: No chest pain, No orthopnea Abdomen: No pain, No nausea Musculoskeletal: No joint pain, No muscle pain Genitourinary - Female: No dysuria, No hematuria Neurologic: No numbness/tingling, No vertigo Endocrine: + fatigue Hematologic / Lymphatic: No abnormal bleeding/bruising Integumentary: No rash, No itch Physical Exam Vital Signs (24 Hours) Date Time Temp Pulse Resp B/P (MAP) Pulse Ox O2 Delivery O2 Flow Rate FiO2 11/18/17 08:00 Room Air 11/18/17 07:30 36.6 91 18 110/58 (75) 92 Room Air 11/18/17 00:00 Room Air 11/17/17 23:01 105 139/82 (101) 11/17/17 23:01 109 143/84 (103) 11/17/17 23:00 37.2 102 18 152/79 (103) 93 Room Air 11/17/17 20:03 36.8 111 20 142/72 97 Room Air 11/17/17 19:58 36.8 111 20 142/72 (95) 97 Room Air 11/17/17 19:20 99 20 80/62 93 11/17/17 17:18 102 20 114/52 93 Room Air 107 109/57 99 80/62 11/17/17 17:16 102 20 109/57 93 Room Air 11/17/17 15:29 36.6 106 20 130/69 93 Room Air General Appearance: WD/WN, no apparent distress Head: normocephalic, atraumatic ENT: hearing grossly normal, + pertinent finding (dry mucous membranes) Neck: supple, no adenopathy Respiratory/Chest: chest non-tender, lungs clear, normal breath sounds Cardiovascular: regular rate, rhythm, no edema, no JVD Abdomen/GI: normal bowel sounds, non tender, soft, + pertinent finding ( colostomy LLQ) Back: normal inspection, no CVA tenderness Extremities/Musculoskelatal: normal inspection, no calf tenderness Neurologic/Psych: alert, normal mood/affect, oriented x 3 Skin: normal color, warm/dry, no rash Lymphatic: no adenopathy Diagnostics Laboratory Results Results Past 24 Hours Test 11/17/17 16:10 11/17/17 16:45 11/17/17 18:50 11/18/17 07:58 Range/Units White Blood Count 16.24 12.54 4.8-10.8 K/uL Red Blood Count 4.26 3.69 4.2-5.4 M/uL Hemoglobin 12.3 10.4 12.0-16.0 g/dL Hematocrit 39.2 33.9 37-47 % Mean Corpuscular Volume 92.0 91.9 80-100 fL Mean Corpuscular Hemoglobin 28.9 28.2 25-34 pg Mean Corpuscular Hemoglobin Concent 31.4 30.7 32-36 g/dl Platelet Count 240 220 130-400 K/uL Mean Platelet Volume 10.1 9.4 7.4-10.4 fL Neutrophils (%) (Auto) 84.0 % Lymphocytes (%) (Auto) 8.6 % Monocytes (%) (Auto) 6.2 % Eosinophils (%) (Auto) 0.6 % Basophils (%) (Auto) 0.2 % Neutrophils # (Auto) 13.64 1.4-6.5 K/uL Lymphocytes # (Auto) 1.39 1.2-3.4 K/uL Monocytes # (Auto) 1.01 0.11-0.59 K/uL Eosinophils # (Auto) 0.09 0-0.5 K/uL Basophils # (Auto) 0.04 0-0.2 K/uL RDW Standard Deviation 51.3 51.6 36.4-46.3 fL RDW Coefficient of Variation 15.3 15.3 11.5-14.5 % Immature Granulocyte % (Auto) 0.4 % Immature Granulocyte # (Auto) 0.07 0.00-0.02 K/uL Sodium Level 138 141 136-145 mmol/L Potassium Level 3.5 3.7 3.5-5.1 mmol/L Chloride Level 98 105 98-107 mmol/L Carbon Dioxide Level 31 30 21-32 mmol/L Anion Gap 9.0 6.0 3-11 mmol/L Blood Urea Nitrogen 17 13 7-18 mg/dl Creatinine 1.24 1.02 0.60-1.20 mg/dl Est Creatinine Clear Calc Drug Dose 32.9 40.0 ml/min Estimated GFR () 46.2 58.5 Estimated GFR (Non- 39.9 50.5 BUN/Creatinine Ratio 13.4 12.6 10-20 Random Glucose 133 101 70-99 mg/dl Calcium Level 9.2 8.2 8.5-10.1 mg/dl Magnesium Level 2.2 2.1 1.8-2.4 mg/dl Total Bilirubin 0.3 0.2-1 mg/dl Aspartate Amino Transf (AST/SGOT) 18 15-37 U/L Alanine Aminotransferase (ALT/SGPT) 30 12-78 U/L Alkaline Phosphatase 83 45-117 U/L Total Creatine Kinase 32 26-192 U/L Troponin I < 0.015 0-0.045 ng/ml Total Protein 7.4 6.4-8.2 gm/dl Albumin 3.5 3.4-5.0 gm/dl Globulin 3.9 2.5-4.0 gm/dl Albumin/Globulin Ratio 0.9 0.9-2 Thyroid Stimulating Hormone (TSH) 0.146 0.300-4.500 uIu/ml Free Thyroxine 1.15 0.80-1.60 ng/dl Random Cortisol 12.51 mcg/dl Urine Color YELLOW Urine Appearance CLEAR CLEAR Urine pH 6.5 4.5-7.5 Urine Specific [place] 1.008 1.000-1.030 Urine Protein NEG NEG Urine Glucose (UA) NEG NEG Urine Ketones NEG NEG Urine Occult Blood TRACE NEG Urine Nitrite NEG NEG Urine Bilirubin NEG NEG Urine Urobilinogen NEG NEG Urine Leukocyte Esterase SMALL NEG Urine WBC (Auto) 10-30 0-5 /hpf Urine RBC (Auto) 0-4 0-4 /hpf Urine Hyaline Casts (Auto) 1-5 0-5 /lpf Urine Epithelial Cells (Auto) 10-20 0-5 /lpf Urine Bacteria (Auto) NEG NEG Influenza Type A Antigen Neg for Influ A NEG Influenza Type B Antigen Neg for Influ B NEG Microbiology Results 11/17/17 Blood Culture, Received Pending 11/17/17 Blood Culture, Received Pending 11/17/17 Urine Culture - Preliminary, Resulted Gram Negative Bacilli Impression Assessment and Plan Assessment: This is an 86-year-old female who presented to the ED 11/17 with weakness and orthostasis. DDx includes dehydration, UTI, influenza, recurrent C diff, deconditioning. Plan: Primary diagnosis: dehydration with orthostasis -Continue IV NSS 100cc/hr -Monitor orthostatic vitals -Obtain PT/OT eval and treat -Decrease Seroquel dose back to 100 mg -Check cortisol level - low given illness; dose of Solu-Cortef given; may need stress dose of prednisone Leukocytosis: - Underlying infection vs chronic steroid use - will trend daily and look for possible infection source UA shows Gram negative bacilli - Possible stool culture if suspicious for C diff recurrence - no suspicion at this time - Influenza PCR negative - Blood cultures sent, NGTD - No increased temperatures - could point to WBC increase due to steroid use Level of Care Med/Surg Advanced Directives Existing Living Will: No Existing Power of Kiln Furniture Saw Tender: No Resuscitation Status FULL RESUSCITATION DVT Prophylaxis SCDs
--- NOTE | 2017-11-18 13:32 | Progress Note ---
Subjective Date of Service: Nov 18, 2017. Subjective Pt evaluation today including: conversation w/ patient, physical exam, chart review, lab review, review of inpatient medication list feeling much better - still weak but notes that she's definitely getting better no significant elevation in stool output from ostomy no other new complaints eating OK but notes poor appetite, notes was drinknig about 40oz per day Problem List Medical Problems: (1) Abdominal pain Status: Acute (2) Altered mental status Status: Acute (3) Anxiety Status: Acute (4) Chronic low back pain Status: Acute (5) COPD (chronic obstructive pulmonary disease) Status: Acute (6) Dehydration Status: Acute (7) Dehydration Status: Acute (8) Dehydration Status: Acute (9) Drowsiness Status: Acute (10) Failure of outpatient treatment Status: Acute (11) Fever Status: Acute (12) Hypotension Status: Acute (13) Inability to bear weight Status: Acute (14) Inferior pubic ramus fracture Status: Acute (15) Insomnia Status: Acute (16) Leukocytosis Status: Acute (17) Leukocytosis Status: Acute (18) Leukocytosis Status: Acute (19) Leukocytosis Status: Acute (20) Leukocytosis Status: Acute (21) Peripheral edema Status: Acute (22) Pyelonephritis Status: Acute (23) Pyelonephritis Status: Acute (24) Sepsis Status: Acute (25) Stroke-like symptoms Status: Acute (26) Suicidal ideation Status: Acute (27) Urinary frequency Status: Acute (28) UTI (urinary tract infection) Status: Acute (29) Weakness Status: Acute (30) Weakness Status: Acute (31) Weakness Status: Acute (32) Weakness Status: Acute (33) Weakness Status: Acute Review of Systems all other ROS otherwise negative except for as above Objective Vital Signs Date Time Temp Pulse Resp B/P (MAP) Pulse Ox O2 Delivery O2 Flow Rate FiO2 11/18/17 08:00 Room Air 11/18/17 07:30 36.6 91 18 110/58 (75) 92 Room Air 11/18/17 00:00 Room Air 11/17/17 23:01 105 139/82 (101) 11/17/17 23:01 109 143/84 (103) 11/17/17 23:00 37.2 102 18 152/79 (103) 93 Room Air 11/17/17 20:03 36.8 111 20 142/72 97 Room Air 11/17/17 19:58 36.8 111 20 142/72 (95) 97 Room Air 11/17/17 19:20 99 20 80/62 93 11/17/17 17:18 102 20 114/52 93 Room Air 107 109/57 99 80/62 11/17/17 17:16 102 20 109/57 93 Room Air 11/17/17 15:29 36.6 106 20 130/69 93 Room Air Physical Exam General Appearance: no apparent distress Eyes: EOMI ENT: hearing grossly normal Neck: trachea midline Respiratory/Chest: no respiratory distress, no accessory muscle use Extremities: normal range of motion Neurologic/Psychiatric: transit clerk II-XII nml as tested, alert, normal mood/affect Skin: normal color, warm/dry Laboratory Results Last 24 Hours Test 11/17/17 16:10 11/17/17 16:45 11/17/17 18:50 11/18/17 07:58 White Blood Count 16.24 K/uL 12.54 K/uL Red Blood Count 4.26 M/uL 3.69 M/uL Hemoglobin 12.3 g/dL 10.4 g/dL Hematocrit 39.2 % 33.9 % Mean Corpuscular Volume 92.0 fL 91.9 fL Mean Corpuscular Hemoglobin 28.9 pg 28.2 pg Mean Corpuscular Hemoglobin Concent 31.4 g/dl 30.7 g/dl Platelet Count 240 K/uL 220 K/uL Mean Platelet Volume 10.1 fL 9.4 fL Neutrophils (%) (Auto) 84.0 % Lymphocytes (%) (Auto) 8.6 % Monocytes (%) (Auto) 6.2 % Eosinophils (%) (Auto) 0.6 % Basophils (%) (Auto) 0.2 % Neutrophils # (Auto) 13.64 K/uL Lymphocytes # (Auto) 1.39 K/uL Monocytes # (Auto) 1.01 K/uL Eosinophils # (Auto) 0.09 K/uL Basophils # (Auto) 0.04 K/uL RDW Standard Deviation 51.3 fL 51.6 fL RDW Coefficient of Variation 15.3 % 15.3 % Immature Granulocyte % (Auto) 0.4 % Immature Granulocyte # (Auto) 0.07 K/uL Sodium Level 138 mmol/L 141 mmol/L Potassium Level 3.5 mmol/L 3.7 mmol/L Chloride Level 98 mmol/L 105 mmol/L Carbon Dioxide Level 31 mmol/L 30 mmol/L Anion Gap 9.0 mmol/L 6.0 mmol/L Blood Urea Nitrogen 17 mg/dl 13 mg/dl Creatinine 1.24 mg/dl 1.02 mg/dl Est Creatinine Clear Calc Drug Dose 32.9 ml/min 40.0 ml/min Estimated GFR () 46.2 58.5 Estimated GFR (Non- 39.9 50.5 BUN/Creatinine Ratio 13.4 12.6 Random Glucose 133 mg/dl 101 mg/dl Calcium Level 9.2 mg/dl 8.2 mg/dl Magnesium Level 2.2 mg/dl 2.1 mg/dl Total Bilirubin 0.3 mg/dl Aspartate Amino Transf (AST/SGOT) 18 U/L Alanine Aminotransferase (ALT/SGPT) 30 U/L Alkaline Phosphatase 83 U/L Total Creatine Kinase 32 U/L Troponin I < 0.015 ng/ml Total Protein 7.4 gm/dl Albumin 3.5 gm/dl Globulin 3.9 gm/dl Albumin/Globulin Ratio 0.9 Thyroid Stimulating Hormone (TSH) 0.146 uIu/ml Free Thyroxine 1.15 ng/dl Random Cortisol 12.51 mcg/dl Urine Color YELLOW Urine Appearance CLEAR Urine pH 6.5 Urine Specific [place] 1.008 Urine Protein NEG Urine Glucose (UA) NEG Urine Ketones NEG Urine Occult Blood TRACE Urine Nitrite NEG Urine Bilirubin NEG Urine Urobilinogen NEG Urine Leukocyte Esterase SMALL Urine WBC (Auto) 10-30 /hpf Urine RBC (Auto) 0-4 /hpf Urine Hyaline Casts (Auto) 1-5 /lpf Urine Epithelial Cells (Auto) 10-20 /lpf Urine Bacteria (Auto) NEG Influenza Type A Antigen Neg for Influ A Influenza Type B Antigen Neg for Influ B Assessment and Plan Dehydration with Positive Orthostatics: - improved w fluids -- continue IVF for now - PT/OT to eval and treat to ensure safety at home environment - hopeful for discharge to home once improved further - likely caused by poor PO intake - encouraged to drink ~60oz fluids relative adrenal insufficiency - random cortisol somewhat difficult to interpret due to chronic predisone use, but did get one dose IV hydrocortisone - does not appear to need ongoing stress dosing of steroids at this time Leukocytosis: - Steroid induced vs infectious vs demargination -- appearing most c/w demargination as no evidence of active infection - follow anemia - appearance of drop likely was dilutional - recent baseline Hgb more in the area of 11 +/-, f/u in AM low TSH -free T4 normal, likely sick euthyroid - repeat TSH ~4wks recent Cdiff -finished [facility], no appearance of recurrent at this time. follow clinically Code Status: FULL RESUSCITATION Disposition: - PT/OT evaluations to determine safety for home, but anticipate that she'll be OK to go home once she is a littel better hydrated
[2017-11-18 15:40] VITALS: BP 154/83; PULSE 102; TEMP 37; O2SAT 96
[2017-11-18] MEDS: QUETIAPINE FUMARATE 100 MG TAB PO SCH (19:42)
[2017-11-19 00:20] VITALS: BP 135/78; PULSE 101; TEMP 36.6; O2SAT 93
[2017-11-19] MEDS: LEVOTHYROXINE 88 MCG TAB PO SCH (06:27)
[2017-11-19] MEDS: CEROVITE ADV FORMULA TAB PO SCH (07:38)
[2017-11-19] MEDS: HYDROXYCHLOROQUINE SULFATE 200 MG TAB PO SCH ×2 (07:38→21:33)
[2017-11-19] MEDS: GABAPENTIN 300 MG CAP PO SCH ×3 (07:38→21:34)
[2017-11-19] MEDS: ASCORBIC ACID 500 MG TAB PO SCH (07:39)
[2017-11-19] MEDS: CHOLECALCIFEROL 1000 INTER.UNIT TAB PO SCH (07:39)
[2017-11-19] MEDS: ASPIRIN 81 MG ECTAB PO SCH (07:39)
[2017-11-19] MEDS: DULOXETINE HCL 60 MG CAP PO SCH (07:40)
[2017-11-19] MEDS: CYANOCOBALAMIN 500 MCG TAB (VIT B-12) PO SCH (07:40)
[2017-11-19] MEDS: DULOXETINE (CYMBALTA) 30 MG CAP PO SCH (07:40)
[2017-11-19] MEDS: OXYCODONE HCL 10 MG TABCR (OXYCONTIN) PO SCH ×2 (07:41→21:33)
[2017-11-19] MEDS: DOCUSATE SODIUM 100 MG CAP PO SCH (07:41)
[2017-11-19] MEDS: FLUTICASONE PROPIONATE NA SPR 16 GM BTL NAE SCH (07:43)
[2017-11-19] MEDS: DICLOFENAC SOD 1% GEL 100 GM TUBE EXT SCH ×4 (07:43→21:36)
[2017-11-19 07:45] VITALS: BP 169/77; PULSE 106; TEMP 36.8; O2SAT 92
[2017-11-19 08:18] LABS: BASO % 0.3 %; BASO ABS # 0.03 K/uL (0-0.2); EOS % 2.3 %; EOS ABS # 0.21 K/uL (0-0.5); HEMATOCRIT 34.8 % (37-47); HEMOGLOBIN 10.7 g/dL (12.0-16.0); IG# 0.11 K/uL (0.00-0.02); LYMPH % 28.4 %; LYMPH ABS # 2.63 K/uL (1.2-3.4); MEAN CORPUSCULAR HEMOGLOBIN 28.6 pg (25-34); MEAN CORPUSCULAR HGB CONC 30.7 g/dl (32-36); MEAN PLATELET VOLUME 9.6 fL (7.4-10.4); MONO % 10.8 %; NEUT ABS # 5.29 K/uL (1.4-6.5); PLATELET COUNT 221 K/uL (130-400); RED CELL DISTRIBUTION WIDTH CV 15.6 % (11.5-14.5); RED CELL DISTRIBUTION WIDTH SD 53.2 fL (36.4-46.3); WHITE BLOOD COUNT 9.27 K/uL (4.8-10.8)
[2017-11-19 08:43] LABS: CALCIUM 8.6 mg/dl (8.5-10.1); CREATININE 0.92 mg/dl (0.60-1.20); POTASSIUM 3.7 mmol/L (3.5-5.1)
[2017-11-19] MEDS ORDERED: AMOXICILLIN/CLAVULANATE TAB 875 MG TAB PO SCH (09:30)
--- NOTE | 2017-11-19 09:49 | Medical Student: [facility] ---
Med Student Progress Note Date of Service Nov 19, 2017. Subjective Pt evaluation today including: conversation w/ patient Patient states she is continuing to improve this morning. Feels much stronger and has been able to sit up in a chair for meals as well as ambulate around the room. She is no longer feeling dizzy. UA resulted with Pseudomonas but patient denies urinary symptoms. WBC has normalized. Review of Systems Constitutional: No fever, No chills Eyes: No worsening of vision Respiratory: No cough, No shortness of breath Cardiac: No chest pain, No orthopnea Abdomen: No pain, No nausea Female : No dysuria, No urinary frequency, No hematuria Neurologic: + weakness (improved) Heme: No abnormal bleeding/bruising Endo: No fatigue Skin: No rash Objective Vital Signs Date Time Temp Pulse Resp B/P (MAP) Pulse Ox O2 Delivery O2 Flow Rate FiO2 11/19/17 07:45 36.8 106 20 169/77 (107) 92 Room Air 11/19/17 00:54 Room Air 11/19/17 00:20 36.6 101 19 135/78 (97) 93 Room Air 11/18/17 20:01 Room Air 11/18/17 16:00 Room Air 11/18/17 15:40 37.0 102 18 154/83 (106) 96 Room Air Physical Exam General Appearance: WD/WN, no apparent distress Eyes: bilateral eyes normal inspection ENT: normal ENT inspection Neck: supple, no adenopathy Respiratory/Chest: chest non-tender, lungs clear, normal breath sounds Cardiovascular: regular rate, rhythm, no edema Abdomen: normal bowel sounds, non tender, soft Extremities: normal range of motion, non-tender Neurologic/Psychiatric: alert, normal mood/affect, oriented x 3 Skin: normal color, warm/dry Laboratory Results Last 24 Hours Test 11/19/17 07:58 White Blood Count 9.27 K/uL Red Blood Count 3.74 M/uL Hemoglobin 10.7 g/dL Hematocrit 34.8 % Mean Corpuscular Volume 93.0 fL Mean Corpuscular Hemoglobin 28.6 pg Mean Corpuscular Hemoglobin Concent 30.7 g/dl Platelet Count 221 K/uL Mean Platelet Volume 9.6 fL Neutrophils (%) (Auto) 57.0 % Lymphocytes (%) (Auto) 28.4 % Monocytes (%) (Auto) 10.8 % Eosinophils (%) (Auto) 2.3 % Basophils (%) (Auto) 0.3 % Neutrophils # (Auto) 5.29 K/uL Lymphocytes # (Auto) 2.63 K/uL Monocytes # (Auto) 1.00 K/uL Eosinophils # (Auto) 0.21 K/uL Basophils # (Auto) 0.03 K/uL RDW Standard Deviation 53.2 fL RDW Coefficient of Variation 15.6 % Immature Granulocyte % (Auto) 1.2 % Immature Granulocyte # (Auto) 0.11 K/uL Sodium Level 142 mmol/L Potassium Level 3.7 mmol/L Chloride Level 108 mmol/L Carbon Dioxide Level 29 mmol/L Anion Gap 6.0 mmol/L Blood Urea Nitrogen 11 mg/dl Creatinine 0.92 mg/dl Est Creatinine Clear Calc Drug Dose 44.3 ml/min Estimated GFR () 66.3 Estimated GFR (Non- 57.2 BUN/Creatinine Ratio 12.5 Random Glucose 102 mg/dl Calcium Level 8.6 mg/dl Assessment and Plan Assessment and Plan: Assessment: This is an 86-year-old female who presented to the ED 11/17 with weakness and orthostasis. DDx includes dehydration, UTI, influenza, recurrent C diff, deconditioning. Plan: Primary diagnosis: dehydration with orthostasis -Continue IV NSS 100cc/hr -Monitor orthostatic vitals -Obtain PT/OT eval and treat -Decrease Seroquel dose back to 100 mg -Check cortisol level - low given illness; dose of Solu-Cortef given; may need stress dose of prednisone Leukocytosis (resolved 11/19): - Underlying infection vs chronic steroid use - will trend daily and look for possible infection source UA shows Pseudomonas - sensitive to all test but patient is allergic to cipro and quinolones. Will need IV. - Possible stool culture if suspicious for C diff recurrence (diagnosed 11/02) - no suspicion at this time; finished last dose of oral vancomycin 11/17 - Influenza PCR negative - Blood cultures sent, NGTD - No increased temperatures Hypothyroid - Low TSH with normal free T4 - Recheck in one month - likely just due to current illness Code Status: FULL RESUSCITATION Discharge planning: home with home health
[2017-11-19 10:16] VITALS: BP_SYST 130; BP_SYST 134; BP_SYST 137; BP_DIAS 77; BP_DIAS 78; BP_DIAS 80; PULSE 101; PULSE 104; PULSE 106; TEMP 37; O2SAT 96
[2017-11-19] MEDS: CIPROFLOXACIN 250 MG TAB PO SCH ×2 (11:46→22:54)
--- NOTE | 2017-11-19 12:33 | Clinical Documentation Query ---
QUERY 1 OF [address] HARPER, In your clinical opinion is this patient being managed for: ( x ) Acute kidney failure, POA, treated and resolved ( ) Not Agree ( ) Other explanation of clinical findings (Please Explain) ( ) Unable to determine (Please Define) ( ) Need to Discuss The medical record reflects the following clinical findings, treatment, and risk factors. Clinical Indicators:86 yo female presented with dizziness, othostatic hypotension and dehydration. Cr 1.24 which trended down to 0.92. Treatment: IV fluids with boluses, monitor PRP Risk Factors: dehydration, hypotension QUERY 2 OF 2 In your clinical opinion is this patient being managed for: ( x) Urinary tract infection ( ) Not Agree ( ) Other explanation of clinical findings (Please Explain) ( ) Unable to determine (Please Define) ( ) Need to Discuss The medical record reflects the following clinical findings, treatment, and risk factors. Clinical Indicators: wbc 16.24. UA cx with pseudomonas aeruginosa Treatment: cipro, IV fluids Risk Factors: age, gender Please clarify and document your clinical opinion in the progress notes and discharge summary. Terms such as "probable", "suspected", "likely", "questionable", "possible", or "still to be ruled out" are acceptable. IF IN AGREEMENT, YOU MUST DOCUMENT ABOVE DIAGNOSTIC STATEMENT IN DAILY PROGRESS NOTES AND DISCHARGE SUMMARY. This document is not part of the patient's record. Thank You, Mee Zhong, [place] [phone]
--- NOTE | 2017-11-19 14:08 | Progress Note ---
Subjective Date of Service: Nov 19, 2017. Subjective pt states she feels much improved, is not having significant ostomy output and has been doing well in PT Problem List Medical Problems: (1) Abdominal pain Status: Acute (2) Altered mental status Status: Acute (3) Anxiety Status: Acute (4) Chronic low back pain Status: Acute (5) COPD (chronic obstructive pulmonary disease) Status: Acute (6) Dehydration Status: Acute (7) Dehydration Status: Acute (8) Dehydration Status: Acute (9) Drowsiness Status: Acute (10) Failure of outpatient treatment Status: Acute (11) Fever Status: Acute (12) Hypotension Status: Acute (13) Inability to bear weight Status: Acute (14) Inferior pubic ramus fracture Status: Acute (15) Insomnia Status: Acute (16) Leukocytosis Status: Acute (17) Leukocytosis Status: Acute (18) Leukocytosis Status: Acute (19) Leukocytosis Status: Acute (20) Leukocytosis Status: Acute (21) Peripheral edema Status: Acute (22) Pyelonephritis Status: Acute (23) Pyelonephritis Status: Acute (24) Sepsis Status: Acute (25) Stroke-like symptoms Status: Acute (26) Suicidal ideation Status: Acute (27) Urinary frequency Status: Acute (28) UTI (urinary tract infection) Status: Acute (29) Weakness Status: Acute (30) Weakness Status: Acute (31) Weakness Status: Acute (32) Weakness Status: Acute (33) Weakness Status: Acute Review of Systems Constitutional: No fever, No chills Respiratory: No cough, No sputum, No shortness of breath, No dyspnea on exertion Cardiac: No chest pain, No orthopnea, No PND, No edema Abdomen: No pain, No nausea, No vomiting, No diarrhea Musculoskeletal: No joint pain, No muscle pain Psychiatric: No depression symptoms, No anhedonism Objective Vital Signs Date Time Temp Pulse Resp B/P (MAP) Pulse Ox O2 Delivery O2 Flow Rate FiO2 11/19/17 07:45 36.8 106 20 169/77 (107) Room Air 11/19/17 00:54 Room Air 11/19/17 00:20 36.6 101 19 135/78 (97) 93 Room Air 11/18/17 20:01 Room Air 11/18/17 16:00 Room Air 11/18/17 15:40 37.0 102 18 154/83 (106) 96 Room Air Physical Exam General Appearance: WD/WN, no apparent distress Eyes: normal inspection, sclerae normal ENT: hearing grossly normal, pharynx normal Neck: supple, no JVD Respiratory/Chest: chest non-tender, lungs clear, normal breath sounds Cardiovascular: regular rate, rhythm, no murmur Abdomen: normal bowel sounds, non tender, soft Extremities: no pedal edema, no calf tenderness Neurologic/Psychiatric: alert, oriented x 3 Laboratory Results Last 24 Hours Test 11/19/17 07:58 White Blood Count 9.27 K/uL Red Blood Count 3.74 M/uL Hemoglobin 10.7 g/dL Hematocrit 34.8 % Mean Corpuscular Volume 93.0 fL Mean Corpuscular Hemoglobin 28.6 pg Mean Corpuscular Hemoglobin Concent 30.7 g/dl Platelet Count 221 K/uL Mean Platelet Volume 9.6 fL Neutrophils (%) (Auto) 57.0 % Lymphocytes (%) (Auto) 28.4 % Monocytes (%) (Auto) 10.8 % Eosinophils (%) (Auto) 2.3 % Basophils (%) (Auto) 0.3 % Neutrophils # (Auto) 5.29 K/uL Lymphocytes # (Auto) 2.63 K/uL Monocytes # (Auto) 1.00 K/uL Eosinophils # (Auto) 0.21 K/uL Basophils # (Auto) 0.03 K/uL RDW Standard Deviation 53.2 fL RDW Coefficient of Variation 15.6 % Immature Granulocyte % (Auto) 1.2 % Immature Granulocyte # (Auto) 0.11 K/uL Assessment and Plan 86 F presented with orthostatic hypotension, possibly from increased ostomy output and concurrent C diff poa, Dehydration with Positive Orthostatics: hydrated and completed course for C Diff - PT/OT to eval and treat to ensure safety at home environment chronic adrenal insufficiency from continued prednisone use, did get one dose IV hydrocortisone - does not appear to need ongoing stress dosing of steroids at this time acute renal failure-poa, treated and resolved with hydration Leukocytosis:shows pseudomonas UTI, will start cipro with benadryl for reported hive allergy, if allergy is not managed will need continued hospital stay for iv antibiotics, if not will have home on cipro and benadryl anemia drop likely was dilutional low TSH-free T4 normal, likely sick euthyroid - repeat TSH ~4wks recent Cdiff -finished vanco, no appearance of recurrent at this time. follow clinically Code Status: FULL RESUSCITATION
[2017-11-19 15:11] VITALS: BP_SYST 119; BP_SYST 127; BP_SYST 132; BP_DIAS 78; BP_DIAS 79; PULSE 103; TEMP 37.1; O2SAT 93
[2017-11-19 21:25] VITALS: BP 147/66; PULSE 101; PULSE 19; TEMP 36.3; O2SAT 96
[2017-11-19] MEDS: QUETIAPINE FUMARATE 100 MG TAB PO SCH (21:34)
[2017-11-19 22:59] VITALS: BP 162/84; PULSE 101; TEMP 36.8; O2SAT 90
[2017-11-20] VITALS: O2SAT 90
[2017-11-20] MEDS: LEVOTHYROXINE 88 MCG TAB PO SCH (06:04)
[2017-11-20 06:12] LABS: HEMATOCRIT 33.1 % (37-47); HEMOGLOBIN 10.3 g/dL (12.0-16.0); MEAN CELL VOLUME 92.2 fL (80-100); MEAN CORPUSCULAR HEMOGLOBIN 28.7 pg (25-34); MEAN CORPUSCULAR HGB CONC 31.1 g/dl (32-36); MEAN PLATELET VOLUME 9.3 fL (7.4-10.4); PLATELET COUNT 211 K/uL (130-400); RED CELL DISTRIBUTION WIDTH CV 15.4 % (11.5-14.5); RED CELL DISTRIBUTION WIDTH SD 52.2 fL (36.4-46.3); WHITE BLOOD COUNT 9.81 K/uL (4.8-10.8)
[2017-11-20 06:53] LABS: CALCIUM 8.6 mg/dl (8.5-10.1); CREATININE 0.97 mg/dl (0.60-1.20); POTASSIUM 3.7 mmol/L (3.5-5.1)
[2017-11-20 07:14] VITALS: BP 120/77; PULSE 102; TEMP 36.6; O2SAT 97
[2017-11-20] MEDS: OXYCODONE HCL 10 MG TABCR (OXYCONTIN) PO SCH (08:07)
[2017-11-20] MEDS: GABAPENTIN 300 MG CAP PO SCH (08:08)
[2017-11-20] MEDS: ASCORBIC ACID 500 MG TAB PO SCH (08:08)
[2017-11-20] MEDS: DULOXETINE HCL 60 MG CAP PO SCH (08:08)
[2017-11-20] MEDS: ASPIRIN 81 MG ECTAB PO SCH (08:09)
[2017-11-20] MEDS: CYANOCOBALAMIN 500 MCG TAB (VIT B-12) PO SCH (08:09)
[2017-11-20] MEDS: DULOXETINE (CYMBALTA) 30 MG CAP PO SCH (08:09)
[2017-11-20] MEDS: CHOLECALCIFEROL 1000 INTER.UNIT TAB PO SCH (08:09)
[2017-11-20] MEDS: DOCUSATE SODIUM 100 MG CAP PO SCH (08:10)
[2017-11-20] MEDS: DICLOFENAC SOD 1% GEL 100 GM TUBE EXT SCH ×2 (08:11→13:32)
[2017-11-20] MEDS: FLUTICASONE PROPIONATE NA SPR 16 GM BTL NAE SCH (08:12)
[2017-11-20] MEDS: CEROVITE ADV FORMULA TAB PO SCH (08:16)
[2017-11-20] MEDS: HYDROXYCHLOROQUINE SULFATE 200 MG TAB PO SCH (08:16)
[2017-11-20] MEDS: CIPROFLOXACIN 250 MG TAB PO SCH (09:20)
[2017-11-20] MEDS ORDERED: CIPR250T3 PO (11:42)
[2017-11-20] MEDS ORDERED: DIPH25CA5 PO (11:42)
--- NOTE | 2017-11-20 11:43 | Discharge Instructions ---
Discharge Instructions Date of Service Nov 20, 2017. Admission Reason for Admission: Dehydration, Hypotension Discharge Discharge Diagnosis / Problem: dehydration, uti poa Discharge Goals Goal(s): Diagnostic testing, Therapeutic intervention Activity Recommendations Activity Limitations: as noted below Lifting Limitations: gradually increase as tolerated . Current Hospital Diet Patient's current hospital diet: Regular Diet Discharge Diet Recommended Diet: Regular Diet Pending Studies Studies pending at discharge: no Laboratory Results Hemoglobin A1c Test 10/16/17 06:11 Range/Units Estimated Average Glucose 137 mg/dl Hemoglobin A1c 6.4 H 4.5-5.6 % Medical Emergencies . Who to Call and When: Medical Emergencies: If at any time you feel your situation is an emergency, please call 911 immediately. . Non-Emergent Contact Non-Emergency issues call your: Primary Care Provider Call Non-Emergent contact if: temperature is above 101, your pain is unusual for you . . "Provider Documentation" section prepared by Jose Wei. . VTE Core Measure Inpt VTE Proph given/why not?: SCD's
[2017-11-20 11:56] VITALS: BP 120/77; PULSE 102; TEMP 36.6; O2SAT 97
--- NOTE | 2017-11-20 15:29 | Discharge Summary ---
Discharge Summary Date of Service Nov 20, 2017. Discharge Summary Admission Date: Nov 17, 2017 at 18:34 Discharge Date: Nov 20, 2017 Discharge Disposition: Home Principal Diagnosis: dehydration and uti poa Immunizations: Have You Had Influenza Vaccine: N/A Influenza Vaccine Date: Jul 24, 2007 History of Tetanus Vaccine?: UTD History of Pneumococcal: Yes Pneumococcal Date: May 09, 1990 History of Hepatitis B Vaccine: Yes Hepatitis Immunization Date: May 09, 1985 Medication Reconciliation New Medications: Ciprofloxacin (Cipro) 250 Mg Tab 250 MG PO BID, #3 TAB pt has tolerated in the hospital despite allergy Diphenhydramine Hcl (Benadryl) 25 Mg Cap 25 MG PO BID@829,2029, #3 CAP take with or before cipro Continued Medications: Ascorbic Acid (Ascorbic Acid) 500 Mg Tab 500 MG PO DAILY, TAB Aspirin (Aspirin Ec) 81 Mg Tab 81 MG PO QAM B-Complex Vitamins (B Complex) 1 Cap Cap 1 CAP PO DAILY Bisacodyl (Dulcolax) 5 Mg Tab 5 TAB PO DAILY PRN for Constipation for 1 Day, #2 TAB Cholecalciferol (Vitamin D3) 2,000 Unit Cap 2000 UNITS PO DAILY Cyanocobalamin (Vitamin B-12) 1,000 Mcg Tab 1000 MCG PO DAILY, TAB Dexlansoprazole (Dexilant) 60 Mg Cap 60 MG PO BID Diclofenac Sod (Voltaren) 100 Appln/100 Gm Gel 4 GM TOP QID apply 4 grams of gel to affected area 4 times daily. do not apply more than 16 grams dialy to any one affected joint Diltiazem Hcl Ext Rel (Tiazac) 120 Mg Capcr 120 MG PO DAILY @ NOON Docusate Sodium (Colace) 100 Mg Cap 200 MG PO DAILY for 30 Days, #60 CAP Duloxetine Hcl (Cymbalta) 60 Mg Cap 60 MG PO QAM TAKE ALONG WITH ONE 30MG CAPSULE TO = 90MG Duloxetine Hcl (Cymbalta) 30 Mg Cap 30 MG PO QAM TAKE ALONG WITH ONE 60MG CAP TO = 90MG Fluticasone Propionate (Fluticasone Propionate) 50 Mcg/Act Spr 2 SPRAYS GUADALUPE DAILY Furosemide (Lasix) 40 Mg Tab 40 MG PO DAILY PRN for fluid retention, TAB Gabapentin (Neurontin) 300 Mg Cap 300 MG PO TID, CAP Home O2 Therapy (Oxygen) Gas 3 LITERS NA PRN Hydroxychloroquine Sulfate (Plaquenil) 200 Mg Tab 200 MG PO BID, TAB Levothyroxine Sodium (Synthroid) 88 Mcg Tab 88 MCG PO DAILY, TAB Ocuvite Preservision (Ocuvite Preservision) 1 Tab Tab 1 TAB PO DAILY, TAB Ondansetron Odt (Zofran Odt) 8 Mg Soltab 8 MG SL Q6H PRN for Nausea, TAB Oxycodone HCl (Oxycontin) 10 Mg Tabcr 10 MG PO BID for 3 Days, #6 TABS Polyethylene Glycol 3350 (Miralax) 1 Pow Pow 17 GM PO DAILY PRN for Constipation, GM Prazosin Hcl (Prazosin) 1 Mg Cap 1 MG PO HS PRN for Sleep, CAP Prednisone (Prednisone) 2.5 Mg Tab 2.5 MG PO DAILY, TAB take 2.5mg with a 10mg tab daily for a total dose of 12.5mg Prednisone Tab (Prednisone) 10 Mg Tab 10 MG PO QAM, TAB take 10mg with a 2.5mg tab daily to equal a total dose of 12.5mg Quetiapine Fumarate (Seroquel) 100 Mg Tab 100 MG PO HS, TAB Discharge Exam Review of Systems: Constitutional: No fever, No chills Respiratory: No cough, No sputum Cardiovascular: No chest pain, No edema Abdomen: No pain, No nausea, No diarrhea Musculoskeletal: No joint pain, No muscle pain, No swelling Genitourinary - Male: No hematuria, No dysuria Psychiatric: No depression symptoms, No anhedonism Physical Exam: General Appearance: WD/WN, no apparent distress Eyes: normal inspection, sclerae normal Respiratory/Chest: chest non-tender, lungs clear, normal breath sounds Cardiovascular: regular rate, rhythm, no murmur Abdomen / GI: normal bowel sounds, non tender, soft Neurologic/Psychiatric: alert, oriented x 3 Skin: normal color, warm/dry, no rash Hospital Course 86 F presented with orthostatic hypotension, possibly from increased ostomy output and concurrent C diff poa, Dehydration with Positive Orthostatics: hydrated and completed course for C Diff - PT/OT feels safe to return to home environment chronic adrenal insufficiency from continued prednisone use, did get one dose IV hydrocortisone - does not appear to need ongoing stress dosing of steroids at this time acute renal failure-poa, treated and resolved with hydration Leukocytosis:shows pseudomonas UTI, did tolerate cipro with benadryl pt is agreeable to have home on cipro and benadryl anemia drop likely was dilutional low TSH-free T4 normal, likely sick euthyroid - repeat TSH ~4wks recent Cdiff -finished vanco, no appearance of recurrent at this time. Code Status: FULL RESUSCITATION Total Time Spent: Greater than 30 minutes This includes examination of the patient, discharge planning, medication reconciliation, and communication with other providers. Discharge Instructions Please refer to the electronic Patient Visit Report (Discharge Instructions) for additional information.
== END 2017-11-20 13:40 | disposition home health service (06) | DRG 683 ==
LOC: EDBD 15:19 → C.EDA 15:20 → C.MS2W 18:34 → ENRESERV 18:44
PROVIDERS: ADMIT Internal Medicine; ATTEND Internal Medicine
DX: N17.9 Acute kidney failure, unspecified (principal); E27.40 Unspecified adrenocortical insufficiency; N39.0 Urinary tract infection, site not specified; B96.5 Pseudomonas (aeruginosa) (mallei) (pseudomallei) as the cause of diseases classified elsewhere; E86.0 Dehydration; E11.9 Type 2 diabetes mellitus without complications; M06.9 Rheumatoid arthritis, unspecified; J45.909 Unspecified asthma, uncomplicated; F32.9 Major depressive disorder, single episode, unspecified; T38.0X5A Adverse effect of glucocorticoids and synthetic analogues, initial encounter; Z79.52 Long term (current) use of systemic steroids; Z79.82 Long term (current) use of aspirin; Z79.899 Other long term (current) drug therapy; Z93.3 Colostomy status; Z88.1 Allergy status to other antibiotic agents; Z88.5 Allergy status to narcotic agent; Z91.040 Latex allergy status

== ENCOUNTER → 2017-12-06 | Outpatient (CLI) | payer BC ==
[~2017-12-06] MED LIST changes: +BISA-16 PO; -CRAN1TAB4 PO; +CYAN10005 PO; +DEXL60CA4 PO; +DIPH25CA5 PO; +DOCU-94 PO; -FLNIN; +FLNIN NAE; +FRS/40 PO; -FURO-85 PO; -LCTX PO; -MCRK20 PO; +MULT-190 PO; +PRAZ1CAP10 PO; +PRD/25 PO; -PRLSR20 PO; -VANC5CAP OR
[2017-12-06 12:48] LABS: BASO % 0.3 %; BASO ABS # 0.04 K/uL (0-0.2); EOS % 2.6 %; EOS ABS # 0.34 K/uL (0-0.5); HEMATOCRIT 35.3 % (37-47); HEMOGLOBIN 10.8 g/dL (12.0-16.0); IG# 0.14 K/uL (0.00-0.02); LYMPH % 18.4 %; LYMPH ABS # 2.41 K/uL (1.2-3.4); MEAN CORPUSCULAR HEMOGLOBIN 27.8 pg (25-34); MEAN CORPUSCULAR HGB CONC 30.6 g/dl (32-36); MONO % 8.6 %; MONO ABS # 1.13 K/uL (0.11-0.59); NEUT ABS # 9.01 K/uL (1.4-6.5); PLATELET COUNT 275 K/uL (130-400); RED CELL DISTRIBUTION WIDTH CV 15.2 % (11.5-14.5); RED CELL DISTRIBUTION WIDTH SD 50.8 fL (36.4-46.3); WHITE BLOOD COUNT 13.07 K/uL (4.8-10.8)
[2017-12-06 13:21] LABS: ALBUMIN 3.1 gm/dl (3.4-5.0); AST/SGOT 23 U/L (15-37); BLOOD UREA NITROGEN 15 mg/dl (7-18); CALCIUM 9.3 mg/dl (8.5-10.1); CARBON DIOXIDE 34 mmol/L (21-32); CREATININE 1.15 mg/dl (0.60-1.20); GLUCOSE 169 mg/dl (70-99); POTASSIUM 3.7 mmol/L (3.5-5.1); SODIUM 138 mmol/L (136-145)
[2017-12-06 13:22] LABS: ALKALINE PHOSPHATASE 80 U/L (45-117); ALT/SGPT 36 U/L (12-78); TOTAL PROTEIN 6.7 gm/dl (6.4-8.2)
== END | disposition home or self-care (01) ==
LOC: C.LAB1850 11:58
PROVIDERS: ATTEND Internal Medicine Infectious Disease
DX: N39.0 Urinary tract infection, site not specified (principal)

== ENCOUNTER → 2018-01-13 | Outpatient (CLI) | payer BC ==
[~2018-01-13] MED LIST changes: -DILT120C68 PO
[2018-01-13 16:56] LABS: BASO % 0.3 %; BASO ABS # 0.05 K/uL (0-0.2); EOS % 2.6 %; EOS ABS # 0.45 K/uL (0-0.5); HEMATOCRIT 36.4 % (37-47); HEMOGLOBIN 11.2 g/dL (12.0-16.0); IG# 0.13 K/uL (0.00-0.02); LYMPH % 10.4 %; LYMPH ABS # 1.79 K/uL (1.2-3.4); MEAN CELL VOLUME 87.5 fL (80-100); MEAN CORPUSCULAR HEMOGLOBIN 26.9 pg (25-34); MEAN CORPUSCULAR HGB CONC 30.8 g/dl (32-36); MONO % 8.3 %; MONO ABS # 1.42 K/uL (0.11-0.59); NEUT % 77.6 %; NEUT ABS # 13.31 K/uL (1.4-6.5); PLATELET COUNT 350 K/uL (130-400); RED CELL DISTRIBUTION WIDTH CV 15.7 % (11.5-14.5); RED CELL DISTRIBUTION WIDTH SD 50.5 fL (36.4-46.3); WHITE BLOOD COUNT 17.15 K/uL (4.8-10.8)
[2018-01-13 17:17] LABS: BLOOD UREA NITROGEN 15 mg/dl (7-18); CALCIUM 9.1 mg/dl (8.5-10.1); CARBON DIOXIDE 27 mmol/L (21-32); CREATININE 1.33 mg/dl (0.60-1.20); GLUCOSE 118 mg/dl (70-99); POTASSIUM 3.7 mmol/L (3.5-5.1); SODIUM 138 mmol/L (136-145)
[2018-01-14 06:49] LABS: HEMOGLOBIN A1C 6.6 % (4.5-5.6)
== END | disposition home or self-care (01) ==
LOC: C.LABBC 13:44
PROVIDERS: ATTEND Family Medicine
DX: E03.9 Hypothyroidism, unspecified (principal); E78.00 Pure hypercholesterolemia, unspecified; E11.9 Type 2 diabetes mellitus without complications

== ENCOUNTER 2018-04-20 17:57 | Inpatient (IN) | payer BC, OTHER ==
[~2018-04-20] VITALS: Ht 160 cm; Wt 74.5 kg
[~2018-04-20 17:57] MED LIST changes: -ASPI81TA28 PO; +CRFL PO; +CYM30; -DIPH25CA5 PO; -DULO60CA44 PO; -HYDR200T5 PO; +ONDA4TAB10 SL; -PRD/25 PO; +QUET1TAB10 PO; -QUET1TAB34 PO
[2018-04-20 18:03] VITALS: Ht 160 cm; Wt 74.5 kg
[2018-04-20 19:21] LABS: BASO % 0.2 %; BASO ABS # 0.03 K/uL (0-0.2); EOS % 0.4 %; EOS ABS # 0.06 K/uL (0-0.5); HEMATOCRIT 32.2 % (37-47); IG# 0.14 K/uL (0.00-0.02); LYMPH % 8.8 %; LYMPH ABS # 1.33 K/uL (1.2-3.4); MEAN CELL VOLUME 86.1 fL (80-100); MEAN CORPUSCULAR HEMOGLOBIN 26.7 pg (25-34); MEAN CORPUSCULAR HGB CONC 31.1 g/dl (32-36); MEAN PLATELET VOLUME 9.6 fL (7.4-10.4); MONO % 5.6 %; MONO ABS # 0.85 K/uL (0.11-0.59); NEUT % 84.1 %; NEUT ABS # 12.67 K/uL (1.4-6.5); NUCLEATED RED BLOOD CELL ABS 0.02 K/uL (0-0); PLATELET COUNT 257 K/uL (130-400); RED CELL DISTRIBUTION WIDTH CV 16.7 % (11.5-14.5); RED CELL DISTRIBUTION WIDTH SD 52.4 fL (36.4-46.3); WHITE BLOOD COUNT 15.08 K/uL (4.8-10.8)
[2018-04-20] MEDS ORDERED: VANCOMYCIN 1GM ED/ASU OMNICELL IV STA (19:30)
[2018-04-20] MEDS ORDERED: PIPERACILLIN/TAZOBACTAM 4.5 GM/100ML D5W IV STA (19:30)
[2018-04-20 20:10] LABS: ALBUMIN 3.2 gm/dl (3.4-5.0); ALKALINE PHOSPHATASE 85 U/L (45-117); ALT/SGPT 26 U/L (12-78); AST/SGOT 17 U/L (15-37); BLOOD UREA NITROGEN 17 mg/dl (7-18); CALCIUM 8.6 mg/dl (8.5-10.1); CARBON DIOXIDE 26 mmol/L (21-32); CREATININE 1.36 mg/dl (0.60-1.20); GLUCOSE 152 mg/dl (70-99); POTASSIUM 4.2 mmol/L (3.5-5.1); SODIUM 140 mmol/L (136-145); TOTAL PROTEIN 6.8 gm/dl (6.4-8.2)
[2018-04-20] MEDS ORDERED: ONDANSETRON 8MG OD TAB PO PRN (20:30)
[2018-04-20] MEDS ORDERED: PIPERACILL/TAZOBAC CONSULT ACTIVE PRN (20:30)
[2018-04-20] MEDS ORDERED: ACETAMINOPHEN IV 100 ML IV PRN (20:30)
[2018-04-20] MEDS ORDERED: VANCOMYCIN CONSULT ACTIVE PRN (20:30)
--- NOTE | 2018-04-20 20:35 | EMERGENCY ROOM VISIT NOTE ---
History Report prepared by Master: Yuniel Reyez Under the Supervision of: Dr. Galdino Archer M.D. First contact with patient: 18:08 Chief Complaint: INFECTION Stated Complaint: REFERRED FOR IV ANTIBIOTICS - OSTEOMILITIS History of Present Illness The patient is a 87 year old female who presents to the Emergency Room with complaints of an infected right big toe. The patient states that she has had a wound there for over a year for which she normally sees her proc tech, and it became worse 5 days ago. She received an X-ray ordered by her PCP, who thought there might be a problem in the bone. She reports that she was placed on Bactrim that she started yesterday and notes no improvement. She also notes that she has felt feverish and sweaty but reports no documented fevers. The patient has a history of diverticulitis. Pt denies LOC, headache, visual changes, neck pain, chest pain, breathing difficulties, nausea, vomiting, abdominal pain, back pain, melena, hematochezia , urinary symptoms, numbness, weakness, lymphadenopathy, rash, or other complaints. Review of Systems See HPI for pertinent positives and negatives. A total of ten systems were reviewed and were otherwise negative. Past Medical & Surgical Medical Problems: (1) Altered mental status (2) Ambulatory dysfunction (3) Arthritis (4) Asthma (5) Cholecystectomy (6) Chronic back pain (7) Complicated UTI (urinary tract infection) (8) Depression (9) Diverticulitis (10) Failure of outpatient treatment (11) Fall from ground level (12) fever (13) FUO (fever of unknown origin) (14) Gastroesophageal reflux disease (15) Generalized weakness (16) Hyperlipidemia (17) Hypothyroidism (18) IBS (19) Impacted cerumen (20) Infected abrasion of great toe of left foot (21) Infected abrasion of great toe of right foot (22) Lupus (23) Major depressive disorder, recurrent episode with anxious distress (24) Osteoarthritis (25) Pituitary adenoma (26) pituitary gland removal (27) Sepsis (28) SIRS (systemic inflammatory response syndrome) (29) Slurred speech (30) TIA (31) Urinary tract infection (32) UTI (urinary tract infection) (33) Vasovagal syncope (34) Viral syndrome Surgical Problems: (1) H/O: hysterectomy (2) History of hip replacement (3) Hx of cholecystectomy Family History Cancer Diabetes mellitus Gallbladder disease Heart disease Hypertension Kidney disease Kidney stones Seizures Social History Smoking Status: Former Smoker Alcohol Use: none Drug Use: none Marital Status: Housing Status: lives alone Occupation Status: retired Current/Historical Medications Scheduled Ascorbic Acid (Ascorbic Acid), 500 MG PO DAILY Aspirin (Aspirin Ec), 81 MG PO QAM B-Complex Vitamins (B Complex), 1 CAP PO DAILY Cholecalciferol (Vitamin D3), 2,000 UNITS PO DAILY Cyanocobalamin (Vitamin B-12), 1,000 MCG PO DAILY Dexlansoprazole (Dexilant), 60 MG PO BID Diclofenac Sod (Voltaren), 4 GM TOP QID Docusate Sodium (Colace), 200 MG PO DAILY Duloxetine Hcl (Cymbalta), 30 MG PO QAM Fluticasone Propionate (Fluticasone Propionate), 2 SPRAYS GUADALUPE DAILY Gabapentin (Neurontin), 300 MG PO TID Home O2 Therapy (Oxygen), 3 LITERS NA PRN Hydroxychloroquine Sulfate (Plaquenil), 200 MG PO BID Levothyroxine Sodium (Synthroid), 88 MCG PO DAILY Ocuvite Preservision (Ocuvite Preservision), 1 TAB PO DAILY Ondasetron Odt (Zofran Odt), 4 MG SL Q6H Oxycodone HCl (Oxycontin), 10 MG PO BID Prednisone Tab (Prednisone), 10 MG PO QAM Quetiapine Fumarate (Seroquel), 150 MG PO HS Scheduled PRN Bisacodyl (Dulcolax), 5 TAB PO DAILY PRN for Constipation Furosemide (Lasix), 40 MG PO DAILY PRN for fluid retention Ondansetron Odt (Zofran Odt), 8 MG SL Q6H PRN for Nausea Polyethylene Glycol 3350 (Miralax), 17 GM PO DAILY PRN for Constipation Prazosin Hcl (Prazosin), 1 MG PO HS PRN for Sleep Sucralfate (Carafate), 10 ML PO BID PRN for GI Upset Miscellaneous Medications Duloxetine HCl (Duloxetine HCl) Allergies Coded Allergies: Ciprofloxacin (Verified Allergy, Intermediate, HIVES, 03/29/18) Quinolones (Verified Allergy, Intermediate, HIVES, 03/29/18) Fluticasone (Verified Allergy, Unknown, ADVAIR-UNKNOWN, 03/29/18) Lactose Intolerance (Verified Allergy, Unknown, GI UPSET, 03/29/18) Latex1 -Allergic Contact Dermititis (Verified Allergy, Unknown, RASH, 03/29) Morphine (Verified Allergy, Unknown, NAUSEA AND VOMITING, 03/29/18) Nitrofurantoin (Verified Allergy, Unknown, HIVES, 03/29/18) Salmeterol (Verified Allergy, Unknown, ADVAIR, 03/29/18) Scallop (Verified Allergy, Unknown, THROAT SWELLS, 03/29/18) Celecoxib (Verified Adverse Reaction, Unknown, barretts esophagus, 03/29/18 ) Physical Exam Vital Signs Date Time Temp Pulse Resp B/P (MAP) Pulse Ox O2 Delivery O2 Flow Rate FiO2 04/20/18 18:03 36.8 104 20 121/51 98 Room Air Physical Exam GENERAL: Awake, alert, well-appearing, in no distress HENT: Normocephalic, atraumatic. Oropharynx unremarkable. EYES: Normal conjunctiva. Sclera non-icteric. NECK: Supple. No nuchal rigidity. FROM. No masses. RESPIRATORY: Clear to auscultation. No wheezes. No rales. Normal respiratory effort. CARDIAC: Normal rate. Normal rhythm. No murmurs. No rubs. Extremities warm and well perfused. Pulses equal. No JVD. GI: Soft, non-distended. No tenderness to palpation. No rebound or guarding. No masses. Colostomy in the lower abdomen. RECTAL: Deferred. MUSCULOSKELETAL: Atraumatic. Chest examination reveals no tenderness. The back is symmetrical on inspection without obvious abnormality. There is no CVA tenderness to palpation. No joint edema. LOWER EXTREMITIES: Calves are equal size bilaterally and non-tender. No edema. No discoloration. Ulceration of right great toe with redness and swelling. NEURO: Normal sensorium. No sensory or motor deficits noted. SKIN: No rash or jaundice noted. Medical Decision & Procedures Laboratory Results 04/20/18 19:00 Red Blood Count 3.74, Mean Corpuscular Volume 86.1, Mean Corpuscular Hemoglobin 26.7, Mean Corpuscular Hemoglobin Concent 31.1, Mean Platelet Volume 9.6, Neutrophils (%) (Auto) 84.1, Lymphocytes (%) (Auto) 8.8, Monocytes (%) (Auto) 5.6, Eosinophils (%) (Auto) 0.4, Basophils (%) (Auto) 0.2, Neutrophils # (Auto) 12.67, Lymphocytes # (Auto) 1.33, Monocytes # (Auto) 0.85, Eosinophils # (Auto) 0.06, Basophils # (Auto) 0.03 04/20/18 19:00 Test 04/20/18 19:00 White Blood Count 15.08 K/uL (4.8-10.8) Red Blood Count 3.74 M/uL (4.2-5.4) Hemoglobin 10.0 g/dL (12.0-16.0) Hematocrit 32.2 % (37-47) Mean Corpuscular Volume 86.1 fL (80-100) Mean Corpuscular Hemoglobin 26.7 pg (25-34) Mean Corpuscular Hemoglobin Concent 31.1 g/dl (32-36) Platelet Count 257 K/uL (130-400) Mean Platelet Volume 9.6 fL (7.4-10.4) Neutrophils (%) (Auto) 84.1 % Lymphocytes (%) (Auto) 8.8 % Monocytes (%) (Auto) 5.6 % Eosinophils (%) (Auto) 0.4 % Basophils (%) (Auto) 0.2 % Neutrophils # (Auto) 12.67 K/uL (1.4-6.5) Lymphocytes # (Auto) 1.33 K/uL (1.2-3.4) Monocytes # (Auto) 0.85 K/uL (0.11-0.59) Eosinophils # (Auto) 0.06 K/uL (0-0.5) Basophils # (Auto) 0.03 K/uL (0-0.2) RDW Standard Deviation 52.4 fL (36.4-46.3) RDW Coefficient of Variation 16.7 % (11.5-14.5) Immature Granulocyte % (Auto) 0.9 % Immature Granulocyte # (Auto) 0.14 K/uL (0.00-0.02) Nucleated RBC Absolute Count (auto) 0.02 K/uL (0-0) Nucleated Red Blood Cells % 0.1 % Erythrocyte Sedimentation Rate 58 mm/hr (0-21) Anion Gap 9.0 mmol/L (3-11) Estimated GFR () 41.0 Estimated GFR (Non- 35.4 BUN/Creatinine Ratio 12.2 (10-20) Calcium Level 8.6 mg/dl (8.5-10.1) Magnesium Level 2.2 mg/dl (1.8-2.4) Total Bilirubin 0.2 mg/dl (0.2-1) Direct Bilirubin < 0.1 mg/dl (0-0.2) Aspartate Amino Transf (AST/SGOT) 17 U/L (15-37) Alanine Aminotransferase (ALT/SGPT) 26 U/L (12-78) Alkaline Phosphatase 85 U/L (45-117) C-Reactive Protein 1.95 mg/dl (0-0.29) Total Protein 6.8 gm/dl (6.4-8.2) Albumin 3.2 gm/dl (3.4-5.0) Laboratory results reviewed by me Medications Administered Medications (Trade) Dose Ordered Sig/Taye Route Start Time Stop Time Status Last Admin Dose Admin Piperacillin Sod/ Tazobactam Sod (Zosyn Iv) 4.5 gm NOW STAT IV 04/20/18 19:30 04/20/18 19:32 DC 04/20/18 20:03 4.5 GM ED Course 1838: The patient was evaluated in room C2. A complete history and physical exam was performed. 1934: I updated with the patient. I will call Dr. Dunaway [facility] Hospitalist for patient admission. 1944: I spoke with Dr. Emelyn Diaz [facility] Hospitalist. He will reevaluate the patient for admission. Medical Decision Prior records reviewed and summarized as above. Triage Nursing notes reviewed and agree them. Additional history obtained from the family. The patient's history was concerning for swelling and redness of the toe with an abnormal x-ray concerning for ostium myelitis. Differential diagnosis: Etiologies such as osteomyelitis, cellulitis, necrotizing fasciitis, abscess, MRSA infection, as well as others were entertained.. Physical examination: The physical examination was consistent with a great toe infection. ER treatment provided: IV vancomycin IV Zosyn On reassessment the patient felt better. Diagnostics interpreted by me: The labs revealed a moderate leukocytosis and elevated inflammatory markers. Imaging studies: Deferred as they were done as an outpatient. The patient appears to be dealing with osteomyelitis. The oral antibiotics as an outpatient unfortunately are not effective at this time. Further management in the hospital is necessary. Consultation: A consultation was placed with the hospitalist. The case was discussed and diagnostics were reviewed. The patient was evaluated in the ER for further treatment. Consults Time Called: 1938 Consulting Physician: Dr. Emelyn Diaz [facility] Hospitalstephanie Returned Call: [address] Dunaway [facility]. He will reevaluate the patient for admission. Impression Primary Impression: Osteomyelitis Scribe Attestation The scribe's documentation has been prepared under my direction and personally reviewed by me in its entirety. I confirm that the note above accurately reflects all work, treatment, procedures, and medical decision making performed by me. Departure Information Dispostion Being Evaluated By Hospitalist Referrals Nidhi Gardner MD (PCP) Patient Instructions My [facility]
[2018-04-20] MEDS ORDERED: BISACODYL 5 MG TABEC PO PRN (20:45)
[2018-04-20] MEDS ORDERED: POLYETHYLENE (MIRALAX) 17 GM PACK PO PRN (20:45)
[2018-04-20] MEDS ORDERED: SUCRALFATE 1 GM/10 ML UDC PO PRN (20:45)
--- NOTE | 2018-04-20 20:47 | History and Physical ---
History & Physical Date & Time of Service: Apr 20, 2018 at 20:46 Chief Complaint: Referred For Iv Antibiotics - Osteomilitis Primary Care Physician: Nidhi Gardner MD History of Present Illness Source: patient, hospital records The patient is an 87-year-old female who presents to the emergency department with concerns regarding worsening redness of her right great toe. She reports that she has had a wound there for over a year, but more recently has seen a strategic partnership manager, who has been doing scraping the area, and 5 days ago there became worsening redness. She reports her PCP in the outpatient setting had ordered an x-ray and thought there might be a problem in the bone, was placed on Bactrim yesterday, and since she felt feverish and sweaty today she came to the emergency department for assessment. Past Medical/Surgical History Medical Problems: (1) Abdominal pain (2) Acute gastritis (3) Altered mental status (4) Altered mental status (5) Ambulatory dysfunction (6) Anxiety (7) Arthritis (8) Asthma (9) Cholecystectomy (10) Chronic anemia (11) Chronic back pain (12) Chronic low back pain (13) Complicated UTI (urinary tract infection) (14) COPD (chronic obstructive pulmonary disease) (15) Dehydration (16) Dehydration (17) Dehydration (18) Depression (19) Diverticulitis (20) Drowsiness (21) Failure of outpatient treatment (22) Failure of outpatient treatment (23) Fall from ground level (24) Fever (25) fever (26) FUO (fever of unknown origin) (27) Gastritis (28) Gastroesophageal reflux disease (29) Generalized weakness (30) Hyperlipidemia (31) Hypotension (32) Hypothyroidism (33) IBS (34) Impacted cerumen (35) Inability to bear weight (36) Infected abrasion of great toe of left foot (37) Infected abrasion of great toe of right foot (38) Inferior pubic ramus fracture (39) Insomnia (40) Leukocytosis (41) Leukocytosis (42) Leukocytosis (43) Leukocytosis (44) Leukocytosis (45) Lupus (46) Major depressive disorder, recurrent episode with anxious distress (47) Osteoarthritis (48) Peripheral edema (49) Pituitary adenoma (50) pituitary gland removal (51) Pyelonephritis (52) Pyelonephritis (53) Sepsis (54) Sepsis (55) SIRS (systemic inflammatory response syndrome) (56) Slurred speech (57) Stroke-like symptoms (58) Suicidal ideation (59) Symptoms involving urinary system (60) TIA (61) Upper abdominal pain (62) Urinary frequency (63) Urinary tract infection (64) UTI (urinary tract infection) (65) UTI (urinary tract infection) (66) Vasovagal syncope (67) Viral syndrome (68) Weakness (69) Weakness (70) Weakness (71) Weakness (72) Weakness Surgical Problems: (1) H/O: hysterectomy (2) History of hip replacement (3) Hx of cholecystectomy Family History Cancer Diabetes mellitus Gallbladder disease Heart disease Hypertension Kidney disease Kidney stones Seizures Social History Smoking Status: Former Smoker Smokeless Tobacco Use: No Alcohol Use: none Drug Use: none Marital Status: Housing status: lives alone Occupational Status: retired Immunizations History of Influenza Vaccine: N/A Influenza Vaccine Date: Jul 24, 2007 History of Tetanus Vaccine?: UTD History of Pneumococcal: Yes Pneumococcal Date: May 09, 1990 History of Hepatitis B Vaccine: Yes Hepatitis Immunization Date: May 09, 1985 Allergies Coded Allergies: Ciprofloxacin (Verified Allergy, Intermediate, HIVES, 03/29/18) Quinolones (Verified Allergy, Intermediate, HIVES, 03/29/18) Fluticasone (Verified Allergy, Unknown, ADVAIR-UNKNOWN, 03/29/18) Lactose Intolerance (Verified Allergy, Unknown, GI UPSET, 03/29/18) Latex1 -Allergic Contact Dermititis (Verified Allergy, Unknown, RASH, 03/29) Morphine (Verified Allergy, Unknown, NAUSEA AND VOMITING, 03/29/18) Nitrofurantoin (Verified Allergy, Unknown, HIVES, 03/29/18) Salmeterol (Verified Allergy, Unknown, ADVAIR, 03/29/18) Scallop (Verified Allergy, Unknown, THROAT SWELLS, 03/29/18) Celecoxib (Verified Adverse Reaction, Unknown, barretts esophagus, 03/29/18 ) Home Medications Scheduled Ascorbic Acid (Ascorbic Acid), 500 MG PO DAILY Aspirin (Aspirin Ec), 81 MG PO QAM B-Complex Vitamins (B Complex), 1 CAP PO DAILY Cholecalciferol (Vitamin D3), 2,000 UNITS PO DAILY Cyanocobalamin (Vitamin B-12), 1,000 MCG PO DAILY Dexlansoprazole (Dexilant), 60 MG PO BID Duloxetine Hcl (Cymbalta), 30 MG PO QAM Duloxetine Hcl (Cymbalta), 60 MG PO DAILY Fluticasone Propionate (Fluticasone Propionate), 2 SPRAYS GUADALUPE DAILY Gabapentin (Neurontin), 300 MG PO TID Home O2 Therapy (Oxygen), 3 LITERS NA PRN Hydroxychloroquine Sulfate (Plaquenil), 200 MG PO BID Levothyroxine Sodium (Synthroid), 88 MCG PO DAILY Ocuvite Preservision (Ocuvite Preservision), 1 TAB PO DAILY Ondasetron Odt (Zofran Odt), 4 MG SL Q6H Oxycodone HCl (Oxycontin), 10 MG PO BID Prednisone Tab (Prednisone), 10 MG PO QAM Quetiapine Fumarate (Seroquel), 150 MG PO HS Scheduled PRN Bisacodyl (Dulcolax), 5 TAB PO DAILY PRN for Constipation Diclofenac Sod (Voltaren), 4 GM TOP QID PRN for Pain Furosemide (Lasix), 40 MG PO DAILY PRN for fluid retention Ondansetron Odt (Zofran Odt), 8 MG SL Q6H PRN for Nausea Polyethylene Glycol 3350 (Miralax), 17 GM PO DAILY PRN for Constipation Prazosin Hcl (Prazosin), 1 MG PO HS PRN for Sleep Sucralfate (Carafate), 10 ML PO BID PRN for GI Upset Review of Systems The patient denies chest pain, palpitations, shortness of breath, dyspnea on exertion, cough, sore throat, weight change, fatigue, nausea, vomiting, diarrhea , constipation, abdominal pain, pelvic pain, blood in urine or stool, dysuria, urinary frequency or urgency, lightheadedness , dizziness, headache, loss of consciousness, abnormal bruising or bleeding, imbalance, focal or generalized weakness, numbness or tingling in arms, generalized arthralgias or myalgias, back or neck pain. The review of systems is otherwise negative other than for that already noted above, and at least 10 systems have been reviewed. Physical Exam Vital Signs Date Time Temp Pulse Resp B/P (MAP) Pulse Ox O2 Delivery O2 Flow Rate FiO2 04/20/18 18:03 36.8 104 20 121/51 98 Room Air The patient is awake, alert and oriented 3, well developed and well nourished, normocephalic and atraumatic, lying in bed and in no acute distress. HEENT--PERRL, EOMI, mucous membranes and oropharynx mildly dry. Neck--supple. No JVD. No bruits. Thyroid normal, trachea midline, no adenopathy. Heart--normal S1 and S2. No murmurs, rubs or gallops. Lungs--clear bilaterally, no respiratory distress, no accessory muscle use. Abdomen--normal bowel sounds and soft. Nontender. Nondistended, no hernias or masses. Ostomy functioning normally. Extremities/Dermatologic--there is no cyanosis, clubbing or edema. Palpable pulses bilaterally. Right great toe with approximately 5 mm diameter abrasion and surrounding erythema encompassing the great toe beyond the DIP. Left great toe with much smaller area of abrasion with surrounding erythema. Neurologic--cranial nerves II through XII grossly intact. Rheumatologic--normal range of motion. Psychiatric--normal affect. Diagnostics Laboratory Results Results Past 24 Hours Test 04/20/18 19:00 Range/Units White Blood Count 15.08 4.8-10.8 K/uL Red Blood Count 3.74 4.2-5.4 M/uL Hemoglobin 10.0 12.0-16.0 g/dL Hematocrit 32.2 37-47 % Mean Corpuscular Volume 86.1 80-100 fL Mean Corpuscular Hemoglobin 26.7 25-34 pg Mean Corpuscular Hemoglobin Concent 31.1 32-36 g/dl Platelet Count 257 130-400 K/uL Mean Platelet Volume 9.6 7.4-10.4 fL Neutrophils (%) (Auto) 84.1 % Lymphocytes (%) (Auto) 8.8 % Monocytes (%) (Auto) 5.6 % Eosinophils (%) (Auto) 0.4 % Basophils (%) (Auto) 0.2 % Neutrophils # (Auto) 12.67 1.4-6.5 K/uL Lymphocytes # (Auto) 1.33 1.2-3.4 K/uL Monocytes # (Auto) 0.85 0.11-0.59 K/uL Eosinophils # (Auto) 0.06 0-0.5 K/uL Basophils # (Auto) 0.03 0-0.2 K/uL RDW Standard Deviation 52.4 36.4-46.3 fL RDW Coefficient of Variation 16.7 11.5-14.5 % Immature Granulocyte % (Auto) 0.9 % Immature Granulocyte # (Auto) 0.14 0.00-0.02 K/uL Nucleated RBC Absolute Count (auto) 0.02 0-0 K/uL Nucleated Red Blood Cells % 0.1 % Erythrocyte Sedimentation Rate 58 0-21 mm/hr Sodium Level 140 136-145 mmol/L Potassium Level 4.2 3.5-5.1 mmol/L Chloride Level 104 98-107 mmol/L Carbon Dioxide Level 26 21-32 mmol/L Anion Gap 9.0 3-11 mmol/L Blood Urea Nitrogen 17 7-18 mg/dl Creatinine 1.36 0.60-1.20 mg/dl Estimated GFR () 41.0 Estimated GFR (Non- 35.4 BUN/Creatinine Ratio 12.2 10-20 Random Glucose 152 70-99 mg/dl Calcium Level 8.6 8.5-10.1 mg/dl Magnesium Level 2.2 1.8-2.4 mg/dl Total Bilirubin 0.2 0.2-1 mg/dl Direct Bilirubin < 0.1 0-0.2 mg/dl Aspartate Amino Transf (AST/SGOT) 17 15-37 U/L Alanine Aminotransferase (ALT/SGPT) 26 12-78 U/L Alkaline Phosphatase 85 45-117 U/L C-Reactive Protein 1.95 0-0.29 mg/dl Total Protein 6.8 6.4-8.2 gm/dl Albumin 3.2 3.4-5.0 gm/dl Microbiology Results 04/20/18 Blood Culture, Received Pending 04/20/18 Blood Culture, Received Pending Diagnostic Radiology Patient Name: SAIRA MCGARRY Unit Number: [id number] Dictated: 04/20/181455 Transcribed: 04/20/181455 JRB Printed Date/Time: [~ rep prt dt]/[~ rep prt tm] [~ rep ct labl] - [~ rep ct ivnm] [facility] [place] [address] Dictated: 04/20/181455 Transcribed: 04/20/181455 JRB Printed Date/Time: [~ rep prt dt]/[~ rep prt tm] [~ rep ct labl] - [~ rep ct ivnm] [~ rep ct add3]] R TOE(S) MIN 2 VIEWS HISTORY: 87 years-old Female S91.109A Wound, open, toeright great toe wound after procedure. Chronic wound of the right great toe COMPARISON: None available TECHNIQUE: 3 views of the right great toe FINDINGS: Bones appear mildly demineralized. Moderate multidigit interphalangeal with mild to moderate first MTP joint osteoarthritis. No acute fracture or dislocation. There is mild cortical indistinctness noted about the distal and medial aspects of the first distal phalanx with moderate soft tissue swelling. No periostitis or opaque foreign body. IMPRESSION: 1. Moderate soft tissue swelling about the first digit with mild cortical indistinctness about the medial and distal cortex of the first distal phalanx, possibly reflecting early erosions with acute osteomyelitis in the appropriate clinical setting. 2. No acute fracture or dislocation. The above report was generated using voice recognition software. It may contain grammatical, syntax or spelling errors. Electronically signed by: Michael Silva M.D. 04/20/2018 3:00 PM Dictated Date/Time: 04/20/2018 2:56 PM The status of this report is Signed. Draft = Not yet reviewed or approved by Radiologist. Signed = Reviewed and approved by Radiologist. <AttendingPhy>Nidhi Gardner MD</AttendingPhy> <FamilyPhy>Nidhi Gardner MD</FamilyPhy> <PrimaryPhy>Nidhi Gardner MD</PrimaryPhy> <UnitNumber> [id number]</UnitNumber> <VisitNumber>[id number]</VisitNumber> <PatientName> SAIRA MCGARRY</PatientName> <DateOfBirth>1930</DateOfBirth> < Location>[facility]</Location> <ServiceDate>04/20/18</ServiceDate> <MNE>ESINDI</MNE> <OrderingPhy>Nidhi Gardner MD</OrderingPhy> <OrderingPhyMNE>f rep ord dr mne</ OrderingPhyMNE> <DictatingPhyMNE>f rep dict dr [facility]</DictatingPhyMNE> <CCListMNE> f rep ct mne</CCListMNE> <AdmittingPhyMNE>f pt admit dr [facility]</AdmittingPhyMNE> < AttendingPhyMNE>f pt attend dr [facility]</AttendingPhyMNE> <ConsultingPhyMNE>f pt consult dr [facility]</ConsultingPhyMNE> <FamilyPhyMNE>f pt fam dr duke</FamilyPhyMNE> <OtherPhyMNE>f pt other dr duke</OtherPhyMNE> < PrimaryPhyMNE>f pt prim care dr duke</PrimaryPhyMNE> <ReferringPhyMNE>f pt referring dr duke</ReferringPhyMNE> Patient Name: SAIRA MCGARRY Unit Number: [id number] Dictated: 04/20/182204 Transcribed: 04/20/182204 PBS Printed Date/Time: [~ rep prt dt]/[~ rep prt tm] [~ rep ct labl] - [~ rep ct ivnm] [facility] [place] [address] Dictated: 04/20/182204 Transcribed: 04/20/182204 PBS Printed Date/Time: [~ rep prt dt]/[~ rep prt tm] [~ rep ct labl] - [~ rep ct ivnm] LOWER EXT NONJOINT WITHOUT CLINICAL HISTORY: 87 years-old Female presenting with right great toe infection. TECHNIQUE: Multisequence, multiplanar MR imaging of the right forefoot was performed without the use of intravenous contrast. IV contrast: None. COMPARISON: Plain radiographs from 04/20/2018. FINDINGS: Localizer images: Unremarkable. Focal increased bone marrow signal intensity at the tuft of the distal phalanx of the first toe (series 10 image 6). At this site, there is T2 hyperintensity though the T1 signal is only minimally decreased (series 9 image 6). The interphalangeal joint is normal. No abnormal joint fluid. No soft tissue fluid collection or significant soft tissue edema. Mild hallux valgus deformity. Mild degenerative changes of the first metatarsophalangeal joint with endplate sclerosis, osteophytosis, and mild joint space loss. No additional sites of bone marrow signal abnormality. IMPRESSION: 1. Abnormal bone marrow signal intensity in the tuft of the distal phalanx of the first toe. Given only the mild signal abnormality on T1-weighted imaging, this may represent reactive bone marrow changes. No convincing evidence of osteomyelitis at this time. Allowing for noncontrast technique, no septic arthritis or abscess. 2. Mild degenerative changes of the first metatarsophalangeal joint. 3. Mild hallux valgus deformity. Electronically signed by: Teddy Lopez M.D. 04/20/2018 10:10 PM Dictated Date/Time: 04/20/2018 10:05 PM The status of this report is Signed. Draft = Not yet reviewed or approved by Radiologist. Signed = Reviewed and approved by Radiologist. <AttendingPhy></AttendingPhy> <FamilyPhy>Nidhi Gardner MD</FamilyPhy> < PrimaryPhy>Nidhi Gardner MD</PrimaryPhy> <UnitNumber>[id number]</UnitNumber > <VisitNumber>[id number]</VisitNumber> <PatientName>SAIRA MCGARRY</ PatientName> <DateOfBirth>1930</DateOfBirth> <Location>[facility]</Location> < ServiceDate>04/20/18</ServiceDate> <MNE>ESINDI</MNE> <OrderingPhy>Iban Dunaway M.D.</OrderingPhy> <OrderingPhyMNE>f rep ord dr duke</OrderingPhyMNE> < DictatingPhyMNE>f rep dict dr duke</DictatingPhyMNE> <CCListMNE>f rep ct srikanth</ CCListMNE> <AdmittingPhyMNE>f pt admit dr [facility]</AdmittingPhyMNE> <AttendingPhyMNE >f pt attend dr [facility]</AttendingPhyMNE> <ConsultingPhyMNE>f pt consult dr duke</ConsultingPhyMNE> <FamilyPhyMNE>f pt fam dr duke</FamilyPhyMNE> <OtherPhyMNE>f pt other dr duke</OtherPhyMNE> < PrimaryPhyMNE>f pt prim care dr [facility]</PrimaryPhyMNE> <ReferringPhyMNE>f pt referring dr [facility]</ReferringPhyMNE> Impression Assessment and Plan Infection of right great toe/reactive bone marrow changes with no convincing evidence of osteomyelitis/left great toe infection of surface abrasion-- Three-view x-ray early on supported the diagnosis of osteomyelitis, however, MRI is less convincing. Continue vancomycin IV and Zosyn IV begun in the emergency department. Consult infectious disease and wound care to follow inpatient and outpatient. Patient has had wound followed by wound care center in the past. Order lower extremity arterial Dopplers to assess for PAD. Continue aspirin 81 mg p.o. daily in a.m. Lupus/inflammatory arthritis/depression-- Continue hydroxychloroquine 200 mg p.o. twice daily, prednisone 10 mg p.o. every morning, OxyContin 10 mg p.o. twice daily, gabapentin 300 mg p.o. 3 times daily, duloxetine 30 mg p.o. every morning and Seroquel 150 mg p.o. at bedtime. Does not look to need stress dose steroids at this time. GERD-- Change Dexilant to pantoprazole per formulary interchange. Hypothyroidism-- Continue levothyroxine sodium 80 mcg p.o. daily. Vitamin B12 deficiency-- Continue cyanocobalamin 1000 mcg p.o. daily, vitamin B complex 1 capsule p.o. daily, ascorbic acid 500 mg p.o. daily. Advanced Directives Existing Advance Directive: No Existing Living Will: No Existing Power of Dental Professional: No Resuscitation Status VTE Prophylaxis Will order VTE Prophylaxis: Yes
[2018-04-20] MEDS ORDERED: DULO60CA44 PO (20:53)
[2018-04-20] MEDS ORDERED: PATIENT'S HEIGHT AND/OR WEIGHT NEEDED SCH (21:15)
[2018-04-20 21:16] VITALS: O2SAT 98
[2018-04-20] MEDS ORDERED: ASPI81TA28 PO (21:32)
[2018-04-20] MEDS ORDERED: PIPERACILL/TAZOBAC IV 3.375 GM in DEXTROSE 5% 100ML 100 ML IV SCH (22:00)
[2018-04-20] MEDS: DICLOFENAC SOD 1% GEL 100 GM TUBE EXT SCH (22:00)
[2018-04-20 22:04] LABS: PTT PATIENT 24.5 SECONDS (21.0-31.0)
--- NOTE | 2018-04-20 22:11 | DIAGNOSTIC IMAGING REPORT ---
LOWER EXT NONJOINT WITHOUT CLINICAL HISTORY: 87 years-old Female presenting with right great toe infection. TECHNIQUE: Multisequence, multiplanar MR imaging of the right forefoot was performed without the use of intravenous contrast. IV contrast: None. COMPARISON: Plain radiographs from 04/20/2018. FINDINGS: Localizer images: Unremarkable. Focal increased bone marrow signal intensity at the tuft of the distal phalanx of the first toe (series 10 image 6). At this site, there is T2 hyperintensity though the T1 signal is only minimally decreased (series 9 image 6). The interphalangeal joint is normal. No abnormal joint fluid. No soft tissue fluid collection or significant soft tissue edema. Mild hallux valgus deformity. Mild degenerative changes of the first metatarsophalangeal joint with endplate sclerosis, osteophytosis, and mild joint space loss. No additional sites of bone marrow signal abnormality. IMPRESSION: 1. Abnormal bone marrow signal intensity in the tuft of the distal phalanx of the first toe. Given only the mild signal abnormality on T1-weighted imaging, this may represent reactive bone marrow changes. No convincing evidence of osteomyelitis at this time. Allowing for noncontrast technique, no septic arthritis or abscess. 2. Mild degenerative changes of the first metatarsophalangeal joint. 3. Mild hallux valgus deformity. Electronically signed by: Teddy Lopez M.D. 04/20/2018 10:10 PM Dictated Date/Time: 04/20/2018 10:05 PM
[2018-04-20] MEDS ORDERED: VANCOMYCIN IV 1,750 MG in SODIUM CHLORIDE 0.9% 500ML 500 ML IV ONE (22:30)
[2018-04-20] MEDS ORDERED: HYDR200T5 PO (22:32)
--- NOTE | 2018-04-20 22:44 | Pharmacy Progress Note ---
Pharmacy Antibiotic Consult Date of Service: Apr 20, 2018. Pharmacy Dosing Scope Pharmacy is consulted to initiate vancomycin and zosyn IV dosing therapy, order appropriate labs and adjust drug dose/frequency. Subjective The patient is a 87 year old female admitted on Apr 20, 2018 at 20:23. Objective Height (Feet): 5 Height (Inches): 3.00 Lab Results (24hrs): Test 04/20/18 19:00 White Blood Count 15.08 K/uL (4.8-10.8) Red Blood Count 3.74 M/uL (4.2-5.4) Hemoglobin 10.0 g/dL (12.0-16.0) Hematocrit 32.2 % (37-47) Mean Corpuscular Volume 86.1 fL (80-100) Mean Corpuscular Hemoglobin 26.7 pg (25-34) Mean Corpuscular Hemoglobin Concent 31.1 g/dl (32-36) Platelet Count 257 K/uL (130-400) Mean Platelet Volume 9.6 fL (7.4-10.4) Neutrophils (%) (Auto) 84.1 % Lymphocytes (%) (Auto) 8.8 % Monocytes (%) (Auto) 5.6 % Eosinophils (%) (Auto) 0.4 % Basophils (%) (Auto) 0.2 % Neutrophils # (Auto) 12.67 K/uL (1.4-6.5) Lymphocytes # (Auto) 1.33 K/uL (1.2-3.4) Monocytes # (Auto) 0.85 K/uL (0.11-0.59) Eosinophils # (Auto) 0.06 K/uL (0-0.5) Basophils # (Auto) 0.03 K/uL (0-0.2) RDW Standard Deviation 52.4 fL (36.4-46.3) RDW Coefficient of Variation 16.7 % (11.5-14.5) Immature Granulocyte % (Auto) 0.9 % Immature Granulocyte # (Auto) 0.14 K/uL (0.00-0.02) Nucleated RBC Absolute Count (auto) 0.02 K/uL (0-0) Nucleated Red Blood Cells % 0.1 % Erythrocyte Sedimentation Rate 58 mm/hr (0-21) Prothrombin Time 10.0 SECONDS (9.0-12.0) Prothromb Time International Ratio 1.0 (0.9-1.1) Activated Partial Thromboplast Time 24.5 SECONDS (21.0-31.0) Partial Thromboplastin Ratio 0.9 Sodium Level 140 mmol/L (136-145) Potassium Level 4.2 mmol/L (3.5-5.1) Chloride Level 104 mmol/L (98-107) Carbon Dioxide Level 26 mmol/L (21-32) Anion Gap 9.0 mmol/L (3-11) Blood Urea Nitrogen 17 mg/dl (7-18) Creatinine 1.36 mg/dl (0.60-1.20) Estimated GFR () 41.0 Estimated GFR (Non- 35.4 BUN/Creatinine Ratio 12.2 (10-20) Random Glucose 152 mg/dl (70-99) Calcium Level 8.6 mg/dl (8.5-10.1) Magnesium Level 2.2 mg/dl (1.8-2.4) Total Bilirubin 0.2 mg/dl (0.2-1) Direct Bilirubin < 0.1 mg/dl (0-0.2) Aspartate Amino Transf (AST/SGOT) 17 U/L (15-37) Alanine Aminotransferase (ALT/SGPT) 26 U/L (12-78) Alkaline Phosphatase 85 U/L (45-117) C-Reactive Protein 1.95 mg/dl (0-0.29) Total Protein 6.8 gm/dl (6.4-8.2) Albumin 3.2 gm/dl (3.4-5.0) Micro Results: Item Value Date Time Blood Culture Received 04/20/181931 Blood Pending Blood Culture Received 04/20/180 Blood Pending Assessment & Plan Patient started on vancomycin and zosyn for concern of bone infection of R toe. Blood cultures x 2 are pending. Vancomycin: * 1750 mg iv x 1 ordered (~23 mg/kg) * Will start vancomycin 1250 mg (~16 mg/kg) iv q 18 hrs to achieve an estimated trough ~20 mcg/ml (goal for osteomyelitis) * Estimated kinetics: t1/2 ~23 hrs, ke~0.03 hr-1, CrCl ~27 ml/min * Based dosing off of previous pharmacokinetic data - was more aggressive with dosing due to severity of infection, dosing based upon Scr closer to 1.0 mg/dL which appears to be her baseline * Will plan to order trough as appropriate if vancomycin is to be continued Zosyn: * 4.5 gm x 1 given in the ED; will start 4.5 gm iv q 8 hrs (appropriate for CrCl >20/critically ill) Pharmacy will continue to follow and will adjust dose/frequency as necessary. Thank you
[2018-04-20 22:50] VITALS: BP 124/57; PULSE 88; TEMP 37.1; O2SAT 98
[2018-04-20] MEDS: HYDROXYCHLOROQUINE SULFATE 200 MG TAB PO SCH (23:26)
[2018-04-20] MEDS: GABAPENTIN 300 MG CAP PO SCH (23:26)
[2018-04-20] MEDS: PANTOprazole SOD 40 MG TAB PO SCH (23:27)
[2018-04-20] MEDS: QUETIAPINE FUMARATE 100 MG TAB PO SCH (23:28)
[2018-04-20] MEDS: ONDANSETRON 4MG OD TAB SL SCH (23:29)
[2018-04-20] MEDS: NSS + 20MEQ KCL 1000ML 1,000 ML IV SCH (23:30)
[2018-04-20] MEDS: HEPARIN SOD 5000 UNIT/0.5 ML CARP SQ SCH (23:31)
[2018-04-20] MEDS: ACETAMINOPHEN 325 MG TAB PO PRN (23:39)
[2018-04-20 23:45] VITALS: BP 115/64; PULSE 90; TEMP 37; O2SAT 97
[2018-04-21] MEDS: PIPERACILL/TAZOBAC IV 4.5 GM in D5W 100 ML IV SCH ×3 (02:36→17:36)
[2018-04-21 03:22] VITALS: BP 122/66; PULSE 94; TEMP 36.8; O2SAT 96
[2018-04-21] MEDS: ONDANSETRON 4MG OD TAB SL SCH ×4 (04:23→20:49)
[2018-04-21] MEDS: LEVOTHYROXINE 88 MCG TAB PO SCH (06:21)
[2018-04-21 06:56] LABS: BASO % 0.2 %; BASO ABS # 0.02 K/uL (0-0.2); HEMATOCRIT 29.2 % (37-47); HEMOGLOBIN 8.8 g/dL (12.0-16.0); IG# 0.07 K/uL (0.00-0.02); LYMPH ABS # 2.36 K/uL (1.2-3.4); MEAN CELL VOLUME 85.1 fL (80-100); MEAN CORPUSCULAR HEMOGLOBIN 25.7 pg (25-34); MEAN CORPUSCULAR HGB CONC 30.1 g/dl (32-36); MEAN PLATELET VOLUME 9.2 fL (7.4-10.4); MONO % 10.5 %; MONO ABS # 1.03 K/uL (0.11-0.59); NEUT % 61.6 %; NEUT ABS # 6.06 K/uL (1.4-6.5); PLATELET COUNT 220 K/uL (130-400); RED CELL DISTRIBUTION WIDTH CV 16.6 % (11.5-14.5); WHITE BLOOD COUNT 9.84 K/uL (4.8-10.8)
[2018-04-21 07:29] LABS: CALCIUM 7.8 mg/dl (8.5-10.1); CREATININE 1.12 mg/dl (0.60-1.20); POTASSIUM 3.7 mmol/L (3.5-5.1)
[2018-04-21 07:40] VITALS: BP 124/68; PULSE 96; TEMP 36.5; O2SAT 95
[2018-04-21] MEDS: HEPARIN SOD 5000 UNIT/0.5 ML CARP SQ SCH ×2 (08:49→20:45)
[2018-04-21] MEDS ORDERED: KETOROLAC TROMETHAMINE 30 MG/ML VIAL ONE (10:31)
--- NOTE | 2018-04-21 10:46 | Medical Consult ---
Consultation Date of Consultation: Apr 21, 2018. 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 Recently, patient had trimming of her nails and debridement of the ulcer at the tip of her toe, and subsequently developed increasing redness, swelling, and pain of the toe and foot. She was seen by her primary care physician where foot x-ray was obtained, and showed evidence of possible osteomyelitis and so patient was referred for admission to the hospital. She was started empirically on vancomycin and Zosyn. Blood cultures are pending. She has now had MRI scan read by me, which shows no obvious bony destruction or definitive evidence of osteomyelitis. Patient has had some decrease in swelling and redness since she has been on antibiotics. Currently afebrile, offering no other new specific complaints. Past Medical/Surgical History Medical Problems: (1) Altered mental status (2) Ambulatory dysfunction (3) Arthritis (4) Asthma (5) Cholecystectomy (6) Chronic back pain (7) Complicated UTI (urinary tract infection) (8) Depression (9) Diverticulitis (10) Failure of outpatient treatment (11) Fall from ground level (12) fever (13) FUO (fever of unknown origin) (14) Gastroesophageal reflux disease (15) Generalized weakness (16) Hyperlipidemia (17) Hypothyroidism (18) IBS (19) Impacted cerumen (20) Infected abrasion of great toe of left foot (21) Infected abrasion of great toe of right foot (22) Lupus (23) Major depressive disorder, recurrent episode with anxious distress (24) Osteoarthritis (25) Pituitary adenoma (26) pituitary gland removal (27) Sepsis (28) SIRS (systemic inflammatory response syndrome) (29) Slurred speech (30) TIA (31) Urinary tract infection (32) UTI (urinary tract infection) (33) Vasovagal syncope (34) Viral syndrome Surgical Problems: (1) H/O: hysterectomy (2) History of hip replacement (3) Hx of cholecystectomy Family History Cancer Diabetes mellitus Gallbladder disease Heart disease Hypertension Kidney disease Kidney stones Seizures Social History Smoking Status: Former Smoker Smokeless Tobacco Use: No Alcohol Use: none Drug Use: none Marital Status: Housing Status: lives alone Occupation Status: retired Allergies Coded Allergies: Ciprofloxacin (Verified Allergy, Intermediate, HIVES, 03/29/18) Quinolones (Verified Allergy, Intermediate, HIVES, 03/29/18) Fluticasone (Verified Allergy, Unknown, ADVAIR-UNKNOWN, 03/29/18) Lactose Intolerance (Verified Allergy, Unknown, GI UPSET, 03/29/18) Latex1 -Allergic Contact Dermititis (Verified Allergy, Unknown, RASH, 03/29) Morphine (Verified Allergy, Unknown, NAUSEA AND VOMITING, 03/29/18) Nitrofurantoin (Verified Allergy, Unknown, HIVES, 03/29/18) Salmeterol (Verified Allergy, Unknown, ADVAIR, 03/29/18) Scallop (Verified Allergy, Unknown, THROAT SWELLS, 03/29/18) Celecoxib (Verified Adverse Reaction, Unknown, barretts esophagus, 03/29/18 ) Current Inpatient Medications Current Inpatient Medications Medications (Trade) Dose Ordered Sig/Taye Route Start Time Stop Time Status Last Admin Dose Admin Vancomycin HCl 1250 mg/Sodium Chloride 275 ml @ 125 mls/hr Q18H IV 04/21/18 16:00 06/02/18 15:59 Ondansetron HCl (Zofran Odt) 8 mg Q6H PRN PO 04/20/18 20:30 05/20/18 20:29 Acetaminophen 100 ml @ 400 mls/hr Q8H PRN IV 04/20/18 20:30 05/20/18 20:29 Potassium Chloride/Sodium Chloride 1,000 ml @ 80 mls/hr [id number] IV 04/20/18 22:30 05/20/18 22:29 04/20/18 23:30 80 MLS/HR Miscellaneous Information (Consult) 1 ea UD PRN N/A 04/20/18 20:30 05/20/18 20:29 Vancomycin HCl (Consult) 1 ea UD PRN N/A 04/20/18 20:30 05/20/18 20:29 Heparin Sodium (Porcine) (Heparin Sq 5000 Unit/0.5ml) 5,000 unit Q12 SQ 04/20/18 21:00 05/20/18 20:59 04/21/18 08:49 5,000 UNIT Acetaminophen (Tylenol Tab) 650 mg Q4H PRN PO 04/20/18 20:45 05/20/18 20:44 04/20/18 23:39 650 MG Ascorbic Acid (Vitamin C Tab) 500 mg DAILY PO 04/21/18 09:00 05/21/18 08:59 Aspirin (Ecotrin Tab) 81 mg QAM PO 04/21/18 09:00 05/21/18 08:59 Vitamin B Complex (Vitamin B Complex) 1 tab DAILY PO 04/21/18 09:00 05/21/18 08:59 Bisacodyl (Dulcolax Tab) 5 mg DAILY PRN PO 04/20/18 20:45 05/20/18 20:44 Cyanocobalamin (Vitamin B-12 Tab) 1,000 mcg DAILY PO 04/21/18 09:00 05/21/18 08:59 Diclofenac Sodium (Voltaren 1% Top Gel) 4 appln QID EXT 04/20/18 22:00 05/20/18 21:59 Docusate Sodium (coLACE CAP) 200 mg DAILY PO 04/21/18 09:00 05/21/18 08:59 Duloxetine HCl (Cymbalta Cap) 90 mg QAM PO 04/21/18 09:00 05/21/18 08:59 Fluticasone Propionate (Flonase Nasal Crum) 2 sprays DAILY GUADALUPE 04/21/18 09:00 05/21/18 08:59 Gabapentin (Neurontin Cap) 300 mg TID PO 04/20/18 21:00 05/20/18 20:59 04/20/18 23:26 300 MG Hydroxychloroquine Sulfate (Plaquenil Tab) 200 mg BID PO 04/20/18 21:00 05/20/18 20:59 04/20/18 23:26 200 MG Levothyroxine Sodium (Synthroid Tab) 88 mcg DAILYBB PO 04/21/18 06:00 05/21/18 06:59 04/21/18 06:21 88 MCG Multivitamins/ Minerals (Multivitamin W/ Minerals Tab) 1 tab DAILY PO 04/21/18 09:00 05/21/18 08:59 Ondansetron HCl (Zofran Odt) 4 mg Q6H SL 04/20/18 22:00 05/20/18 21:59 04/21/18 04:23 4 MG Prednisone (PredniSONE TAB) 10 mg QAM PO 04/21/18 09:00 05/21/18 08:59 Quetiapine Fumarate (seroQUEL TAB) 150 mg HS PO 04/20/18 21:00 05/20/18 20:59 04/20/18 23:28 150 MG Sucralfate (Carafate Susp) 1 gm BID PRN PO 04/20/18 20:45 05/20/18 20:44 Cholecalciferol (Vitamin D Tab) 2,000 inter.unit QAM PO 04/21/18 09:00 05/21/18 08:59 Pantoprazole Sodium (Protonix Tab) 40 mg BID PO 04/20/18 21:00 05/20/18 20:59 04/20/18 23:27 40 MG Polyethylene (Miralax Powder Packet) 17 gm DAILY PRN PO 04/20/18 20:45 05/20/18 20:44 Prednisone (PredniSONE TAB) 2.5 mg QAM PO 04/21/18 09:00 05/21/18 08:59 Piperacillin Sod/ Tazobactam Sod 4.5 gm/Dextrose 120 ml @ 30 mls/hr Q8H IV 04/21/18 02:00 06/02/18 01:59 04/21/18 02:36 30 MLS/HR Review of Systems Constitutional: + sweats, + problem reported (Feverish) Eyes: No problem reported ENT: No problem reported Respiratory: + shortness of breath Cardiovascular: No problem reported Abdomen: No problem reported Musculoskeletal: No problem reported Genitourinary - Female: No problem reported Neurologic: No problem reported Psychiatric: No problem reported Endocrine: No problem reported Hematologic / Lymphatic: No problem reported Integumentary: + new/changing skin lesions, + color change Allergic / Immunologic: No problem reported Physical Exam Date Time Temp Pulse Resp B/P (MAP) Pulse Ox O2 Delivery O2 Flow Rate FiO2 04/21/18 07:40 36.5 96 18 124/68 (86) 95 04/21/18 03:22 36.8 94 18 122/66 (84) 96 Room Air 04/21/18 03:22 36.8 04/20/18 23:59 Room Air 04/20/18 23:45 37.0 90 18 115/64 (81) 97 Room Air 04/20/18 22:50 37.1 88 16 124/57 (79) 98 Room Air 04/20/18 21:16 36.8 90 18 145/73 98 04/20/18 20:57 90 18 145/73 98 Room Air 04/20/18 20:31 Room Air 04/20/18 18:03 36.8 104 20 121/51 98 Room Air General Appearance: WD/WN, no apparent distress Head: normocephalic, atraumatic Eyes: normal inspection, EOMI, sclerae normal ENT: normal ENT inspection, pharynx normal Neck: supple, no adenopathy, thyroid normal, trachea midline Respiratory/Chest: chest non-tender, lungs clear, normal breath sounds, no respiratory distress Cardiovascular: regular rate, rhythm, no gallop, no murmur Abdomen/GI: normal bowel sounds, non tender, soft, no organomegaly Back: normal inspection, no CVA tenderness Extremities/Musculoskelatal: no calf tenderness, non-tender, + slow capillary refill Neurologic/Psych: alert, oriented x 3, + sensory deficit Skin: normal color, warm/dry, no rash, + pertinent finding (Ulceration tip of right great toe, mild erythema and swelling of toe) Lymphatic: no adenopathy Laboratory Results Date/Time Source Procedure Growth Status 04/20/18 19:32 Blood Blood Culture Pending Received 04/20/18 19:00 Blood Blood Culture Pending Received Last 24 Hours Test 04/20/18 19:00 04/21/18 06:39 White Blood Count 15.08 K/uL 9.84 K/uL Red Blood Count 3.74 M/uL 3.43 M/uL Hemoglobin 10.0 g/dL 8.8 g/dL Hematocrit 32.2 % 29.2 % Mean Corpuscular Volume 86.1 fL 85.1 fL Mean Corpuscular Hemoglobin 26.7 pg 25.7 pg Mean Corpuscular Hemoglobin Concent 31.1 g/dl 30.1 g/dl Platelet Count 257 K/uL 220 K/uL Mean Platelet Volume 9.6 fL 9.2 fL Neutrophils (%) (Auto) 84.1 % 61.6 % Lymphocytes (%) (Auto) 8.8 % 24.0 % Monocytes (%) (Auto) 5.6 % 10.5 % Eosinophils (%) (Auto) 0.4 % 3.0 % Basophils (%) (Auto) 0.2 % 0.2 % Neutrophils # (Auto) 12.67 K/uL 6.06 K/uL Lymphocytes # (Auto) 1.33 K/uL 2.36 K/uL Monocytes # (Auto) 0.85 K/uL 1.03 K/uL Eosinophils # (Auto) 0.06 K/uL 0.30 K/uL Basophils # (Auto) 0.03 K/uL 0.02 K/uL RDW Standard Deviation 52.4 fL 51.0 fL RDW Coefficient of Variation 16.7 % 16.6 % Immature Granulocyte % (Auto) 0.9 % 0.7 % Immature Granulocyte # (Auto) 0.14 K/uL 0.07 K/uL Nucleated RBC Absolute Count (auto) 0.02 K/uL Nucleated Red Blood Cells % 0.1 % Erythrocyte Sedimentation Rate 58 mm/hr Prothrombin Time 10.0 SECONDS Prothromb Time International Ratio 1.0 Activated Partial Thromboplast Time 24.5 SECONDS Partial Thromboplastin Ratio 0.9 Sodium Level 140 mmol/L 143 mmol/L Potassium Level 4.2 mmol/L 3.7 mmol/L Chloride Level 104 mmol/L 109 mmol/L Carbon Dioxide Level 26 mmol/L 27 mmol/L Anion Gap 9.0 mmol/L 7.0 mmol/L Blood Urea Nitrogen 17 mg/dl 14 mg/dl Creatinine 1.36 mg/dl 1.12 mg/dl Estimated GFR () 41.0 51.9 Estimated GFR (Non- 35.4 44.8 BUN/Creatinine Ratio 12.2 12.3 Random Glucose 152 mg/dl 92 mg/dl Calcium Level 8.6 mg/dl 7.8 mg/dl Magnesium Level 2.2 mg/dl 2.3 mg/dl Total Bilirubin 0.2 mg/dl Direct Bilirubin < 0.1 mg/dl Aspartate Amino Transf (AST/SGOT) 17 U/L Alanine Aminotransferase (ALT/SGPT) 26 U/L Alkaline Phosphatase 85 U/L C-Reactive Protein 1.95 mg/dl Total Protein 6.8 gm/dl Albumin 3.2 gm/dl Toxic Granulation 1+ Est Creatinine Clear Calc Drug Dose 35.5 ml/min Patient Name: SAIRA MCGARRY Unit Number: [id number] Dictated: 04/20/182204 Transcribed: 04/20/182204 PBS Printed Date/Time: [~ rep prt dt]/[~ rep prt tm] [~ rep ct labl] - [~ rep ct ivnm] [facility] [place] [address] Dictated: 04/20/182204 Transcribed: 04/20/182204 PBS Printed Date/Time: [~ rep prt dt]/[~ rep prt tm] [~ rep ct labl] - [~ rep ct ivnm] [~ rep ct add3]] LOWER EXT NONJOINT WITHOUT CLINICAL HISTORY: 87 years-old Female presenting with right great toe infection. TECHNIQUE: Multisequence, multiplanar MR imaging of the right forefoot was performed without the use of intravenous contrast. IV contrast: None. COMPARISON: Plain radiographs from 04/20/2018. FINDINGS: Localizer images: Unremarkable. Focal increased bone marrow signal intensity at the tuft of the distal phalanx of the first toe (series 10 image 6). At this site, there is T2 hyperintensity though the T1 signal is only minimally decreased (series 9 image 6). The interphalangeal joint is normal. No abnormal joint fluid. No soft tissue fluid collection or significant soft tissue edema. Mild hallux valgus deformity. Mild degenerative changes of the first metatarsophalangeal joint with endplate sclerosis, osteophytosis, and mild joint space loss. No additional sites of bone marrow signal abnormality. IMPRESSION: 1. Abnormal bone marrow signal intensity in the tuft of the distal phalanx of the first toe. Given only the mild signal abnormality on T1-weighted imaging, this may represent reactive bone marrow changes. No convincing evidence of osteomyelitis at this time. Allowing for noncontrast technique, no septic arthritis or abscess. 2. Mild degenerative changes of the first metatarsophalangeal joint. 3. Mild hallux valgus deformity. Electronically signed by: Teddy Lopez M.D. 04/20/2018 10:10 PM Dictated Date/Time: 04/20/2018 10:05 PM The status of this report is Signed. Draft = Not yet reviewed or approved by Radiologist. Signed = Reviewed and approved by Radiologist. <AttendingPhy></AttendingPhy> <FamilyPhy>Nidhi Gardner MD</FamilyPhy> < PrimaryPhy>Nidhi Gardner MD</PrimaryPhy> <UnitNumber>[id number]</UnitNumber > <VisitNumber>[id number]</VisitNumber> <PatientName>SAIRA MCGARRY</ PatientName> <DateOfBirth>1930</DateOfBirth> <Location>[facility]</Location> < ServiceDate>04/20/18</ServiceDate> <MNE>ESINDI</MNE> <OrderingPhy>Iban Dunaway M.D.</OrderingPhy> <OrderingPhyMNE>f rep ord dr duke</OrderingPhyMNE> < DictatingPhyMNE>f rep dict dr duke</DictatingPhyMNE> <CCListMNE>f rep ct gomeze</ CCListMNE> <AdmittingPhyMNE>f pt admit dr duke</AdmittingPhyMNE> <AttendingPhyMNE >f pt attend dr duke</AttendingPhyMNE> <ConsultingPhyMNE>f pt consult dr duke</ConsultingPhyMNE> <FamilyPhyMNE>f pt fam dr duke</FamilyPhyMNE> <OtherPhyMNE>f pt other dr duke</OtherPhyMNE> < PrimaryPhyMNE>f pt prim care dr duke</PrimaryPhyMNE> <ReferringPhyMNE>f pt referring dr duke</ReferringPhyMNE> RUN DATE: 04/21/18 [facility] LAB PAGE 1 RUN TIME: 0950 Specimen Inquiry PATIENT: SAIRA MCGARRY LOC: [facility] U # : [id number] AGE/SX: 87/F ROOM: REG : 04/19/[address]: Nidhi Gardner MD : 1930 BED: DIS : STATUS: REG CLI TLOC: SPEC #: [id number] ALLAN: 04/19/18-UNK STATUS: COMP REQ #: [id number] RECD: 04/19/[address] [facility] [address]: Nidhi Gardner MD SOURCE: ULCER ENTR: 04/19/[address]: SPDESC: TOE R1 ORDERED: SURF WND CU/SMR COMMENTS: Outside Ordering Provider Comment: L97.509 Toe ulcer right great toe wound [facility] [id number] Procedure Result Verified Site GRAM STAIN Final 04/20/18-751 RESULT NO WBCs SEEN NO ORGANISMS SEEN SURFACE WOUND CULTURE Final 04/21/18-948 Organism 1 COAG NEG STAPHYLOCOCCUS QUANITY RARE SENS NO SENSITIVITY TO FOLLOW Assessment & Plan 87-year-old female with diabetes mellitus and peripheral arterial disease status post recent angioplasty, now with right great toe infection, with culture only positive for coagulase negative Staph. I am not convinced basin has osteomyelitis given MRI findings, and hopefully just has secondary cellulitis from infected wound. She seems to have responded initially to oral Bactrim, and will consider transition to oral therapy in the next 24-48 hours if she continues to improve. Will follow.
[2018-04-21] MEDS: GABAPENTIN 300 MG CAP PO SCH ×3 (10:52→20:37)
[2018-04-21] MEDS: VITAMIN B COMPLEX TAB PO SCH (10:52)
[2018-04-21] MEDS: ASPIRIN 81 MG ECTAB PO SCH (10:52)
[2018-04-21] MEDS: CEROVITE ADV FORMULA TAB PO SCH (10:52)
[2018-04-21] MEDS: ASCORBIC ACID 500 MG TAB PO SCH (10:52)
[2018-04-21] MEDS: DICLOFENAC SOD 1% GEL 100 GM TUBE EXT SCH ×4 (10:52→20:47)
[2018-04-21] MEDS: HYDROXYCHLOROQUINE SULFATE 200 MG TAB PO SCH ×2 (10:53→20:37)
[2018-04-21] MEDS: CHOLECALCIFEROL 1000 INTER.UNIT TAB PO SCH (10:53)
[2018-04-21] MEDS: PANTOprazole SOD 40 MG TAB PO SCH ×2 (10:53→20:35)
[2018-04-21] MEDS: DULOXETINE (CYMBALTA) 30 MG CAP PO SCH (10:53)
[2018-04-21] MEDS: CYANOCOBALAMIN 500 MCG TAB (VIT B-12) PO SCH (10:53)
[2018-04-21] MEDS: DOCUSATE SODIUM 100 MG CAP PO SCH (10:53)
[2018-04-21] MEDS: FLUTICASONE PROPIONATE NA SPR 16 GM BTL NAE SCH (10:54)
--- NOTE | 2018-04-21 10:54 | DIAGNOSTIC IMAGING REPORT ---
ULTRASOUND BILATERAL LOWER EXTREMITY ARTERIAL; ANKLE-BRACHIAL INDICES CLINICAL HISTORY: Foot infections. COMPARISON STUDY: No priors. TECHNIQUE: Real-time, grayscale, and color Doppler sonography of the arteries of the right and left lower extremities performed from the inguinal crease to the foot. Ankle brachial indices are calculated. FINDINGS: Ankle brachial indices: Right brachial pressure measures 119 and left brachial pressure measures 124. Pressures in the right posterior tibial artery measure 141 for an REY of 1.14, and pressures in the right dorsalis pedis artery measure 157 for an REY of 1.27. Pressures in the left posterior tibial artery measure 150 for an REY of 1.21, and pressures in the left dorsalis pedis artery measure 154 for an REY of 1.24. Right lower extremity: There is mild atherosclerotic plaque and irregularity seen throughout the arteries of the right lower extremity. There are triphasic waveforms in the right common femoral artery with velocities measuring up to 171 cm/s. The profunda femoris artery is patent with velocities measuring up to 133 cm/s. There are triphasic waveforms in the right superficial femoral artery with velocities measuring up to 146 cm/s. The popliteal artery is patent with triphasic waveforms and velocities measuring up to 90 cm/s. There is at least 2 vessel runoff to the foot. Normal arterial waveforms are preserved in the calf vessels. Velocities within the calf arteries measure up to 91 cm/s. The distal peroneal artery was not identified and may be occluded or diminutive. The dorsalis pedis artery is patent with velocities measuring up to 75 cm/s. Left lower externally: There is mild atherosclerotic plaque and irregularly seen throughout the arteries of the left lower extremity. Triphasic waveforms are seen in the common femoral artery with velocities measuring up to 143 cm/s. The profunda femoris artery is patent with velocities measuring up to 119 cm/s. There are triphasic waveforms seen throughout the superficial femoral and in the popliteal artery. Velocities in the superficial femoral artery measure up to 128 cm/s, and velocities in the popliteal artery measure up to 118 cm/s. There is 1 vessel runoff identified to the left foot. The anterior tibial artery is patent with velocities measuring up to 90 cm/s. The dorsalis pedis artery is patent with velocities measuring up to 35 cm/s. The proximal to mid portions of the peroneal artery are patent with velocities measured up to 87 cm/s. The distal peroneal artery is not visualized. No flow is seen within the posterior tibial artery. IMPRESSION: 1. There is no flow seen within the distal right peroneal artery, which may be diminutive or occluded. 2. The remaining arteries of the right lower extremity are patent. 3. There is no flow seen within the left posterior tibial artery which is likely occluded. Flow was also not seen within the distal left peroneal artery. 4. The remaining arteries of the left lower extremity are patent. 5. Ankle brachial indices as above. Dictated: 04/21/2018 10:09 AM Transcribed: 04/21/2018 10:53 AM [facility] Electronically signed by: Bennett Huertas M.D. 04/21/2018 11:00 AM Dictated Date/Time: 04/21/2018 10:09 AM
[2018-04-21 12:05] VITALS: BP 124/63; PULSE 80; TEMP 36.5; O2SAT 96
[2018-04-21 15:31] VITALS: BP 127/59; TEMP 37.1; O2SAT 93
[2018-04-21] MEDS: ACETAMINOPHEN 325 MG TAB PO PRN (15:32)
[2018-04-21] MEDS: NSS + 20MEQ KCL 1000ML 1,000 ML IV SCH (15:33)
[2018-04-21] MEDS: VANCOMYCIN IV 1,250 MG in SODIUM CHLORIDE 0.9% 250ML 250 ML IV SCH (15:42)
[2018-04-21] MEDS ORDERED: PRAZOSIN HCL 1 MG CAP PO PRN (17:00)
[2018-04-21] MEDS ORDERED: OXYC-737 PO (17:02)
[2018-04-21] MEDS ORDERED: GLUCOSE 40% GEL 15 GM TUBE PO PRN (17:15)
[2018-04-21] MEDS ORDERED: CARBOHYDRATES FOR HYPOGLYCEMIA PO PRN (17:15)
[2018-04-21] MEDS ORDERED: DEXTROSE 50% 50 ML SYR IV PRN (17:15)
[2018-04-21] MEDS ORDERED: GLUCOSE 10 TABS/TUBE PO PRN (17:15)
[2018-04-21] MEDS ORDERED: GLUCAGON FOR INJ 1 MG VIAL SQ PRN (17:15)
--- NOTE | 2018-04-21 17:21 | Hospitalist Progress Note ---
Hospitalist Progress Note Date of Service Apr 21, 2018. Subjective Pt evaluation today including: conversation w/ patient Pt reports feeling depressed and wonders if she missed any of her depression meds since she has been here. She did however miss her home oxycodone as it was held and reports diffuse joint pains which are chronic. Tele with NSR Afebrile. She reports having balloon angioplasty of her RLE just 3 weeks ago with [facility] in [place], and is due to have the LLE done soon Denies CP or SOB, denies bad pain. All Other Systems: Reviewed and Negative Objective Vital Signs Date Time Temp Pulse Resp B/P (MAP) Pulse Ox O2 Delivery O2 Flow Rate FiO2 04/21/18 15:31 37.1 18 127/59 (81) 93 Room Air 04/21/18 12:05 36.5 80 95 124/63 (83) 96 04/21/18 07:40 36.5 96 18 124/68 (86) 95 04/21/18 03:22 36.8 94 18 122/66 (84) 96 Room Air 04/21/18 03:22 36.8 04/20/18 23:59 Room Air 04/20/18 23:45 37.0 90 18 115/64 (81) 97 Room Air 04/20/18 22:50 37.1 88 16 124/57 (79) 98 Room Air 04/20/18 21:16 36.8 90 18 145/73 98 04/20/18 20:57 90 18 145/73 98 Room Air 04/20/18 20:31 Room Air 04/20/18 18:03 36.8 104 20 121/51 98 Room Air Physical Exam General Appearance: WD/WN, no apparent distress Eyes: normal inspection, sclerae normal ENT: hearing grossly normal Neck: trachea midline Respiratory/Chest: lungs clear, normal breath sounds, no respiratory distress, no accessory muscle use Cardiovascular: regular rate, rhythm, no edema, no murmur Abdomen: normal bowel sounds, non tender, soft Extremities: no pedal edema, no calf tenderness, + pertinent finding (2+ DP pulses bilat, non palpable PT pulses bilat, right great toe with eschar on distal phalanx, with very minimal erythema surrounding, no drainage, nontender) Neurologic/Psychiatric: alert, normal mood/affect Skin: normal color, no rash Laboratory Results Last 24 Hours Test 04/20/18 19:00 04/21/18 06:39 White Blood Count 15.08 K/uL 9.84 K/uL Red Blood Count 3.74 M/uL 3.43 M/uL Hemoglobin 10.0 g/dL 8.8 g/dL Hematocrit 32.2 % 29.2 % Mean Corpuscular Volume 86.1 fL 85.1 fL Mean Corpuscular Hemoglobin 26.7 pg 25.7 pg Mean Corpuscular Hemoglobin Concent 31.1 g/dl 30.1 g/dl Platelet Count 257 K/uL 220 K/uL Mean Platelet Volume 9.6 fL 9.2 fL Neutrophils (%) (Auto) 84.1 % 61.6 % Lymphocytes (%) (Auto) 8.8 % 24.0 % Monocytes (%) (Auto) 5.6 % 10.5 % Eosinophils (%) (Auto) 0.4 % 3.0 % Basophils (%) (Auto) 0.2 % 0.2 % Neutrophils # (Auto) 12.67 K/uL 6.06 K/uL Lymphocytes # (Auto) 1.33 K/uL 2.36 K/uL Monocytes # (Auto) 0.85 K/uL 1.03 K/uL Eosinophils # (Auto) 0.06 K/uL 0.30 K/uL Basophils # (Auto) 0.03 K/uL 0.02 K/uL RDW Standard Deviation 52.4 fL 51.0 fL RDW Coefficient of Variation 16.7 % 16.6 % Immature Granulocyte % (Auto) 0.9 % 0.7 % Immature Granulocyte # (Auto) 0.14 K/uL 0.07 K/uL Nucleated RBC Absolute Count (auto) 0.02 K/uL Nucleated Red Blood Cells % 0.1 % Erythrocyte Sedimentation Rate 58 mm/hr Prothrombin Time 10.0 SECONDS Prothromb Time International Ratio 1.0 Activated Partial Thromboplast Time 24.5 SECONDS Partial Thromboplastin Ratio 0.9 Sodium Level 140 mmol/L 143 mmol/L Potassium Level 4.2 mmol/L 3.7 mmol/L Chloride Level 104 mmol/L 109 mmol/L Carbon Dioxide Level 26 mmol/L 27 mmol/L Anion Gap 9.0 mmol/L 7.0 mmol/L Blood Urea Nitrogen 17 mg/dl 14 mg/dl Creatinine 1.36 mg/dl 1.12 mg/dl Estimated GFR () 41.0 51.9 Estimated GFR (Non- 35.4 44.8 BUN/Creatinine Ratio 12.2 12.3 Random Glucose 152 mg/dl 92 mg/dl Calcium Level 8.6 mg/dl 7.8 mg/dl Magnesium Level 2.2 mg/dl 2.3 mg/dl Total Bilirubin 0.2 mg/dl Direct Bilirubin < 0.1 mg/dl Aspartate Amino Transf (AST/SGOT) 17 U/L Alanine Aminotransferase (ALT/SGPT) 26 U/L Alkaline Phosphatase 85 U/L C-Reactive Protein 1.95 mg/dl Total Protein 6.8 gm/dl Albumin 3.2 gm/dl Toxic Granulation 1+ Est Creatinine Clear Calc Drug Dose 35.5 ml/min Assessment and Plan This pt is an 87-year-old female with a history of HTN, dyslipidemia, diet- controlled- DMII, anemia of chronic disease, depression/anxiety, fibromyalgia, nonobstructive CAD, hypothyroidism, RA on chronic prednisone and chronic opioids , Glasgow's esophagus, GERD, and peripheral neuropathy, here with worsening cellulitis of right great toe with concern for OM. Right great toe cellulitis and wound/Subjective fevers/leukocytosis--> with reactive bone marrow changes without convincing evidence of osteomyelitis on MRI. Also with left great toe infection with surface abrasion-- with known PAD Three-view x-ray early on supported the diagnosis of osteomyelitis, however, MRI is less convincing. ESR mildly elevated for ehr age at 60, CRP only 1.95 Remains afebrile here. WBC count did trend downward from 15 to 9. Wound cx from outpt office with Coag neg Staph -Infection does not appear all that overwhelming here today -Continue vancomycin IV and Zosyn IV - ID recommends continuing for now and possibly revert back to po abx in the next 24-48 hrs -Patient has had wound followed by wound care center in the past and should continue f/u there and with Podiatry after discharge -follow BCxs which are NGTD -ok to stop IVFs PAD-Bilat LEs, distally on Dopplers here -had balloon angioplasty to RLE 3 weeks ago and due for LLE in near future -Continue aspirin 81 mg p.o. daily in a.m. RA on chronic prednisone-increased diffuse pain today due to not getting usual oxycodone -restart oxycodone -continue Plaquenil -continue prednisone 12.5mg daily and no need for stress-dosed steroids Anxiety/depression/FM-stable -continue gabapentin 300 mg p.o. 3 times daily, duloxetine 30 mg p.o. every morning and Seroquel 150 mg p.o. at bedtime DMII-diet controlled, not on home meds, last A1C 6.6% fairly recently -will order accuchecks here -will order SSI GERD--w/ h/o Glasgow's continue PPI Hypothyroidism--TSH 1.46 in 01/2018, stable Continue levothyroxine from home Vitamin B12 deficiency-- Continue cyanocobalamin 1000 mcg p.o. daily, vitamin B complex 1 capsule p.o. daily, ascorbic acid 500 mg p.o. daily. Anemia of chronic disease-normocytic, folate and B12 normal most recently, Fe studies fairly normal except ferritin of 16 -Hgb here with mild drop to 8.8 from hemodilution -follow CBC Proph-SQ heparin Dispo-tx to medical, likely dc to home tomorrow on po abx if BCxs remain negative
[2018-04-21 17:41] VITALS: BP 127/59; PULSE 80; TEMP 37.1; O2SAT 93
[2018-04-21] MEDS: OXYCODONE HCL IR 5 MG TAB (IMMEDIATE RELEASE) PO SCH (20:34)
[2018-04-21] MEDS: QUETIAPINE FUMARATE 100 MG TAB PO SCH (20:40)
[2018-04-21] MEDS: INSULIN ASPART 100 UNITS/ML 3 ML PEN SC SCH (20:47)
[2018-04-21 23:08] VITALS: BP 118/55; PULSE 95; TEMP 36.7; O2SAT 94
[2018-04-22] MEDS: PIPERACILL/TAZOBAC IV 4.5 GM in D5W 100 ML IV SCH ×2 (03:15→09:35)
[2018-04-22] MEDS: ONDANSETRON 4MG OD TAB SL SCH ×2 (03:30→10:48)
[2018-04-22] MEDS: LEVOTHYROXINE 88 MCG TAB PO SCH (06:14)
[2018-04-22 07:23] VITALS: BP 120/60; PULSE 87; TEMP 36.8; O2SAT 96
[2018-04-22 07:44] LABS: BASO % 0.4 %; BASO ABS # 0.04 K/uL (0-0.2); EOS % 3.7 %; EOS ABS # 0.36 K/uL (0-0.5); HEMATOCRIT 31.2 % (37-47); HEMOGLOBIN 9.3 g/dL (12.0-16.0); IG# 0.08 K/uL (0.00-0.02); LYMPH % 26.6 %; LYMPH ABS # 2.56 K/uL (1.2-3.4); MEAN CELL VOLUME 85.7 fL (80-100); MEAN CORPUSCULAR HEMOGLOBIN 25.5 pg (25-34); MEAN CORPUSCULAR HGB CONC 29.8 g/dl (32-36); MEAN PLATELET VOLUME 9.3 fL (7.4-10.4); MONO % 10.8 %; MONO ABS # 1.04 K/uL (0.11-0.59); NEUT % 57.7 %; NEUT ABS # 5.54 K/uL (1.4-6.5); NUCLEATED RED BLOOD CELL ABS 0.02 K/uL (0-0); PLATELET COUNT 246 K/uL (130-400); RED CELL DISTRIBUTION WIDTH CV 16.8 % (11.5-14.5); RED CELL DISTRIBUTION WIDTH SD 52.5 fL (36.4-46.3); WHITE BLOOD COUNT 9.62 K/uL (4.8-10.8)
[2018-04-22 08:10] LABS: CALCIUM 8.4 mg/dl (8.5-10.1); CREATININE 1.27 mg/dl (0.60-1.20); POTASSIUM 3.9 mmol/L (3.5-5.1)
[2018-04-22 08:36] LABS: HEMOGLOBIN A1C 6.7 % (4.5-5.6)
[2018-04-22] MEDS: DICLOFENAC SOD 1% GEL 100 GM TUBE EXT SCH ×2 (09:34→11:33)
[2018-04-22] MEDS: OXYCODONE HCL IR 5 MG TAB (IMMEDIATE RELEASE) PO SCH (09:35)
[2018-04-22] MEDS: VANCOMYCIN IV 1,250 MG in SODIUM CHLORIDE 0.9% 250ML 250 ML IV SCH (09:35)
[2018-04-22] MEDS: DOCUSATE SODIUM 100 MG CAP PO SCH (09:36)
[2018-04-22] MEDS: CEROVITE ADV FORMULA TAB PO SCH (09:37)
[2018-04-22] MEDS: ASPIRIN 81 MG ECTAB PO SCH (09:37)
[2018-04-22] MEDS: PANTOprazole SOD 40 MG TAB PO SCH (09:37)
[2018-04-22] MEDS: DULOXETINE (CYMBALTA) 30 MG CAP PO SCH (09:38)
[2018-04-22] MEDS: GABAPENTIN 300 MG CAP PO SCH ×2 (09:38→14:07)
[2018-04-22] MEDS: CYANOCOBALAMIN 500 MCG TAB (VIT B-12) PO SCH (09:39)
[2018-04-22] MEDS: CHOLECALCIFEROL 1000 INTER.UNIT TAB PO SCH (09:39)
[2018-04-22] MEDS: ASCORBIC ACID 500 MG TAB PO SCH (09:39)
[2018-04-22] MEDS: VITAMIN B COMPLEX TAB PO SCH (09:40)
[2018-04-22] MEDS: HYDROXYCHLOROQUINE SULFATE 200 MG TAB PO SCH (09:40)
[2018-04-22] MEDS: INSULIN ASPART 100 UNITS/ML 3 ML PEN SC SCH ×2 (09:42→12:24)
[2018-04-22] MEDS: HEPARIN SOD 5000 UNIT/0.5 ML CARP SQ SCH (09:44)
[2018-04-22] MEDS: FLUTICASONE PROPIONATE NA SPR 16 GM BTL NAE SCH (09:45)
[2018-04-22 13:24] VITALS: BP 149/75; PULSE 104; TEMP 36.8; O2SAT 91
[2018-04-22] MEDS ORDERED: SULF800T23 PO (13:28)
--- NOTE | 2018-04-22 13:35 | Discharge Instructions ---
Discharge Instructions Date of Service Apr 22, 2018. Admission Reason for Admission: Infected Abrasion Of Great Toe Of Left Foot Discharge Discharge Diagnosis / Problem: Infected wound left great toe, no osteomyelitis Discharge Goals Goal(s): Decrease discomfort, Improve disease control Activity Recommendations Activity Limitations: resume your previous activity . Instructions / Follow-Up Instructions / Follow-Up Medications: - BACTRIM: take twice a day, starting tonight, take for 14 more days Right great toe wound infection, mild cellulitis responded well to IV antibiotics, change to Bactrim PO, complete 14 more days MRI food showed no evidence of osteomyelitis please follow up with Dr. Gardner next week, call for hospital follow up [facility] will call you on Wednesday to set up a follow up visit in their clinic Peripheral vascular disease: please keep your appointment to have left leg angioplasty Current Hospital Diet Patient's current hospital diet: AHA Diet (Heart Healthy), Diabetes Type 2 Diet Discharge Diet Recommended Diet: AHA Diet (Heart Healthy), Diabetes Type 2 Diet Pending Studies Studies pending at discharge: no Laboratory Results Hemoglobin A1c Test 04/22/18 07:05 Range/Units Estimated Average Glucose 146 mg/dl Hemoglobin A1c 6.7 H 4.5-5.6 % Medical Emergencies . Who to Call and When: Medical Emergencies: If at any time you feel your situation is an emergency, please call 911 immediately. . Non-Emergent Contact Non-Emergency issues call your: Primary Care Provider Call Non-Emergent contact if: you have a fever, you have any medication questions . . "Provider Documentation" section prepared by Tarun Garcia. . [place] Drug Monitoring Program Search Results: no issues identified
[2018-04-22] MEDS: ACETAMINOPHEN 325 MG TAB PO PRN (14:07)
[2018-04-22 14:29] VITALS: BP 149/75; PULSE 104; TEMP 36.8; O2SAT 91
--- NOTE | 2018-04-30 21:19 | Discharge Summary ---
Discharge Summary Date of Service Apr 22, 2018. Discharge Summary Admission Date: Apr 20, 2018 at 20:23 Discharge Date: Apr 22, 2018 Discharge Disposition: Home with services Principal Diagnosis: Toe cellulitis, no osteomyelitis Problems/Secondary Diagnoses: Peripheral arterial disease Rheumatoid arthritis Immunizations: Have You Had Influenza Vaccine: N/A Influenza Vaccine Date: Jul 24, 2007 History of Tetanus Vaccine?: UTD History of Pneumococcal: Yes Pneumococcal Date: May 09, 1990 History of Hepatitis B Vaccine: Yes Hepatitis Immunization Date: May 09, 1985 Procedures: none Consultations: Infectious disease Medication Reconciliation New Medications: Sulfamethoxazole-Trimethoprim (Bactrim Ds 800MG/160MG) 1 Tab Tab 1 TAB PO BID for 14 Days, #28 TAB Continued Medications: Ascorbic Acid (Ascorbic Acid) 500 Mg Tab 500 MG PO DAILY, TAB Aspirin (Aspirin Ec) 81 Mg Tab 81 MG PO QAM B-Complex Vitamins (B Complex) 1 Cap Cap 1 CAP PO DAILY Bisacodyl (Dulcolax) 5 Mg Tab 5 TAB PO DAILY PRN for Constipation for 1 Day, #2 TAB Cholecalciferol (Vitamin D3) 2,000 Unit Cap 2000 UNITS PO DAILY Cyanocobalamin (Vitamin B-12) 1,000 Mcg Tab 1000 MCG PO DAILY, TAB Dexlansoprazole (Dexilant) 60 Mg Cap 60 MG PO BID Diclofenac Sod (Voltaren) 100 Appln/100 Gm Gel 4 GM TOP QID PRN for Pain apply 4 grams of gel to affected area 4 times daily. do not apply more than 16 grams dialy to any one affected joint Duloxetine Hcl (Cymbalta) 30 Mg Cap 30 MG PO QAM TAKE ALONG WITH ONE 60MG CAP TO = 90MG Duloxetine Hcl (Cymbalta) 60 Mg Cap 60 MG PO DAILY, CAP TAKE WITH 30 MG TO = 90 MG Fluticasone Propionate (Fluticasone Propionate) 50 Mcg/Act Spr 2 SPRAYS GUADALUPE DAILY Furosemide (Lasix) 40 Mg Tab 40 MG PO DAILY PRN for fluid retention, TAB Gabapentin (Neurontin) 300 Mg Cap 300 MG PO TID, CAP Home O2 Therapy (Oxygen) Gas 3 LITERS NA PRN Hydroxychloroquine Sulfate (Plaquenil) 200 Mg Tab 200 MG PO BID, TAB Levothyroxine Sodium (Synthroid) 88 Mcg Tab 88 MCG PO DAILY, TAB Ocuvite Preservision (Ocuvite Preservision) 1 Tab Tab 1 TAB PO DAILY, TAB Ondansetron Odt (Zofran Odt) 8 Mg Soltab 8 MG SL Q6H PRN for Nausea, TAB Ondasetron Odt (Zofran Odt) 4 Mg Tab 4 MG SL Q6H for Nausea, #10 TAB Oxycodone Immediate Rel Tab (Roxicodone Ir) 5 Mg Tab 10 MG PO BID, TAB Polyethylene Glycol 3350 (Miralax) 1 Pow Pow 17 GM PO DAILY PRN for Constipation, GM Prazosin Hcl (Prazosin) 1 Mg Cap 1 MG PO HS PRN for Sleep, CAP Prednisone Tab (Prednisone) 10 Mg Tab 10 MG PO QAM, TAB take 10mg with a 2.5mg tab daily to equal a total dose of 12.5mg Quetiapine Fumarate (Seroquel) 200 Mg Tab 150 MG PO HS, TAB Sucralfate (Carafate) 1 Gm/10 Ml Lori 10 ML PO BID PRN for GI Upset for 6 Days, #120 ML 1 Refill Discharge Exam Patient feeling well, no new issues to discuss. Toe feels the same. Plan to continue Bactrim and follow up with wound clinic, she agrees with this plan. Review of Systems: Constitutional: + weakness, No fever, No chills, No sweats, No weight loss, No fatigue, No problem reported Eyes: No worsening of vision, No eye pain, No redness, No discharge, No diplopia, No problem reported ENT: No hearing loss, No unusual epistaxis, No nasal symptoms, No sore throat, No tinnitus, No dental problems, No trouble swallowing, No problem reported Respiratory: No cough, No sputum, No wheezing, No shortness of breath, No dyspnea on exertion, No dyspnea at rest, No hemoptysis, No problem reported Cardiovascular: No chest pain, No orthopnea, No PND, No edema, No claudication, No palpitations, No problem reported Abdomen: No pain, No nausea, No vomiting, No diarrhea, No constipation, No GI bleeding, No problem reported Musculoskeletal: + joint pain (diffuse, arthritic pain), No muscle pain, No swelling, No calf pain, No problem reported Genitourinary - Female: No dysuria, No urinary frequency, No urinary urgency , No urinary incontinence, No urinary retention, No hematuria Neurologic: No memory loss, No paralysis, No weakness, No numbness/tingling , No vertigo, No balance problems, No problem reported Psychiatric: No depression symptoms, No anhedonism, No anxiety, No insomnia , No substance abuse, No problem reported Endocrine: No fatigue, No excessive thirst, No excessive urination, No problem reported Hematologic / Lymphatic: No abnormal bleeding/bruising, No clotting problems , No swollen lymph nodes, No night sweats, No problem reported Integumentary: No rash, No itch, No new/changing skin lesions, No color change, No bleeding, No problem reported Physical Exam: General Appearance: WD/WN, no apparent distress Eyes: normal inspection, EOMI, sclerae normal ENT: normal ENT inspection, hearing grossly normal, pharynx normal Neck: supple, no adenopathy, no JVD, trachea midline Respiratory/Chest: chest non-tender, lungs clear, normal breath sounds, no respiratory distress, no accessory muscle use Cardiovascular: regular rate, rhythm, no edema, no gallop, no JVD, no murmur , normal peripheral pulses Abdomen / GI: normal bowel sounds, non tender, soft, no organomegaly Extremities: normal inspection, no calf tenderness, normal capillary refill , no pedal edema, normal range of motion, pelvis stable Neurologic/Psychiatric: 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 Right great toe cellulitis and wound/Subjective fevers/leukocytosis--> with reactive bone marrow changes without convincing evidence of osteomyelitis on MRI. Also with left great toe infection with surface abrasion-- with known PAD no fevers, WBC normal, responded well to Vancomycin and Zosyn blood cultures all negative per ID, can be treated with oral antibiotics d/c home on Bactrim, follow up arranged with the wound clinic PAD-Bilat LEs, distally on Dopplers here -had balloon angioplasty to RLE 3 weeks ago and due for LLE in near future -Continue aspirin 81 mg p.o. daily in a.m. - follow up for balloon angioplasty to left leg RA on chronic prednisone-increased diffuse pain due to not getting usual oxycodone -resumed oxycodone, pain improved -continue Plaquenil -continue prednisone 12.5mg daily and no need for stress-dosed steroids Anxiety/depression/FM-stable -continue gabapentin 300 mg p.o. 3 times daily, duloxetine 30 mg p.o. every morning and Seroquel 150 mg p.o. at bedtime DMII-diet controlled, not on home meds, last A1C 6.6% fairly recently -will order accuchecks here -will order SSI GERD--w/ h/o Glasgow's continue PPI Hypothyroidism--TSH 1.46 in 01/2018, stable Continue levothyroxine from home Vitamin B12 deficiency-- Continue cyanocobalamin 1000 mcg p.o. daily, vitamin B complex 1 capsule p.o. daily, ascorbic acid 500 mg p.o. daily. Anemia of chronic disease-normocytic, folate and B12 normal most recently, Fe studies fairly normal except ferritin of 16 -Hgb here with mild drop to 8.8 from hemodilution, remained stable Proph-SQ heparin Total Time Spent: Greater than 30 minutes This includes examination of the patient, discharge planning, medication reconciliation, and communication with other providers. Discharge Instructions Please refer to the electronic Patient Visit Report (Discharge Instructions) for additional information. Follow-Up PCP Additional Copies To Nidhi Gardner M.D.
[2018-05-05] MEDS ORDERED: SULF800T23 PO (14:17)
== END 2018-04-22 15:45 | disposition home health service (06) | DRG 603 ==
LOC: C.EDB 18:00 → C.2E 20:23 → ENRESERV 20:50 → C.MS4W 04-21 18:15
PROVIDERS: ADMIT Hospitalist; ATTEND Internal Medicine
DX: L03.031 Cellulitis of right toe (principal); E11.51 Type 2 diabetes mellitus with diabetic peripheral angiopathy without gangrene; K21.9 Gastro-esophageal reflux disease without esophagitis; E03.9 Hypothyroidism, unspecified; E53.8 Deficiency of other specified B group vitamins; M06.9 Rheumatoid arthritis, unspecified; F32.9 Major depressive disorder, single episode, unspecified; F41.9 Anxiety disorder, unspecified; D63.8 Anemia in other chronic diseases classified elsewhere; I73.9 Peripheral vascular disease, unspecified; Z87.891 Personal history of nicotine dependence; Z79.52 Long term (current) use of systemic steroids; Z79.82 Long term (current) use of aspirin; Z79.899 Other long term (current) drug therapy

== ENCOUNTER 2018-11-07 16:56 | Inpatient (IN) ==
[2018-11-07] MEDS ORDERED: SODIUM CHLORIDE 0.9% 1000ML 1,000 ML IV SCH (17:30)
[2018-11-07] MEDS ORDERED: CEFEPIME 2,000 MG in SYRINGE 7.5 ML IV STA (17:36)
[2018-11-07 18:09] LABS: Basophils # (auto) 0.03 K/uL (0-0.2); Basophils % (auto) 0.2 %; Eosinophils # (auto) 0.05 K/uL (0-0.5); Eosinophils % (auto) 0.4 %; Hemoglobin 11.3 g/dL (12.0-16.0); Immature Granulocytes # (auto) 0.17 K/uL (0.00-0.02); Immature Granulocytes % (auto) 1.3 %; Lymphocytes # (auto) 1.69 K/uL (1.2-3.4); Lymphocytes % (auto) 12.4 %; Mean Corpuscular Hgb Conc 30.5 g/dL (32-36); Mean Corpuscular Volume 95.4 fL (80-100); Mean Platelet Volume 9.7 fL (7.4-10.4); Monocytes # (auto) 1.33 K/uL (0.11-0.59); Monocytes % (auto) 9.8 %; Neutrophils # (auto) 10.32 K/uL (1.4-6.5); Neutrophils % (auto) 75.9 %; Nucleated RBC # (auto) 0.02 K/uL (0-0); Nucleated RBC % (auto) 0.2 %; Platelet Count 269 K/uL (130-400); RDW Coefficient of Variation 16.1 % (11.5-14.5); RDW Standard Deviation 55.8 fL (36.4-46.3); Red Blood Count 3.88 M/uL (4.2-5.4); White Blood Count 13.59 K/uL (4.8-10.8)
[2018-11-07] MEDS ORDERED: CEFEPIME 2,000 MG/20 ML VIAL ONE (18:09)
--- NOTE | 2018-11-07 18:32 | XRay Report ---
[facility]UB CLINICAL HISTORY: Suprapubic pain. COMPARISON STUDY: CT of the abdomen and pelvis August 31, 2018. FINDINGS: Bilateral hip arthroplasties are incidentally noted. The bowel gas pattern is normal. There is a left lower quadrant ostomy. Pelvic calcifications reflect phleboliths. Bilateral renal calculi are noted. IMPRESSION: 1. No evidence for a bowel obstruction. 2. Bilateral nephrolithiasis. Electronically signed by: Anjel Encarnacion M.D. 11/07/2018 6:31 PM
[2018-11-07 18:36] LABS: Alanine Aminotransferase 27 U/L (12-78); Albumin Level 3.3 gm/dl (3.4-5.0); Aspartate Aminotransferase 15 U/L (15-37); BUN Creatinine Ratio 15.4 (10-20); Blood Urea Nitrogen 19 mg/dl (7-18); C Reactive Protein 3.79 mg/dl (0-0.29); Calcium 9.2 mg/dl (8.5-10.1); Carbon Dioxide 29 mmol/L (21-32); Chloride 100 mmol/L (98-107); Est GFR (African American) 47.7; Est GFR (Non-African American) 41.2; Glucose 114 mg/dl (70-99); Potassium 4.2 mmol/L (3.5-5.1); Sodium 137 mmol/L (136-145)
[2018-11-07 18:38] LABS: Albumin Globulin Ratio 0.8 (0.9-2); Alkaline Phosphatase 88 U/L (45-117); Bilirubin,Total 0.3 mg/dl (0.2-1); Total Protein 7.3 gm/dl (6.4-8.2)
--- NOTE | 2018-11-07 18:56 | Emergency Department Note ---
Entered by Bennett Sanders acting as a scribe for History of Present Illness General Chief complaint: Referred by Doctor Stated complaint: UTI Source: patient History of Present Illness Provider complaint: UTI Onset (ago): week(s) 3 Maximum Pain Intensity: 7 Relieved By: not by other (drinking fluids) Associated symptoms: + denies other symptoms (back pain); no cough, no fever/ chills and no nausea/vomiting The patient is a 87 year old female who presents to the Emergency Room with complaints to urinary symptoms beginning 3 days ago. She rates her pain at a 7/ 10. The patient reports cramping in the bladder, burning, sweating, and back pain. The patient adds she has been drinking fluids with no improvement of symptoms. The patient notes saw her doctor last week. The patient reports she was scheduled to go for a scope today schedule by Dr. Coronel, but states she felt too sick to go, so was referred here. The patient states she feels like she needs to be admitted for IV antibiotics. The patient denies nausea/ vomiting , fever, leg swelling, and coughing. 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 Home Medications Home Medications Medication Instructions Recorded Confirmed Type ascorbic acid (vitamin C) 500 mg 500 mg PO QAM 07/07/18 11/07/18 History tablet aspirin 81 mg tablet,delayed 81 mg PO QAM 07/07/18 11/07/18 History release cholecalciferol (vitamin D3) 2,000 2,000 units PO QAM 07/07/18 11/07/18 History unit capsule fexofenadine 60 mg tablet 60 mg PO DAILY PRN tab 07/07/18 11/07/18 History furosemide 20 mg tablet 20 mg PO DAILY PRN 07/07/18 11/07/18 History hydroxychloroquine 200 mg tablet 300 mg PO QAM tab 07/07/18 11/07/18 History levothyroxine 88 mcg tablet 88 mcg PO QAM 07/07/18 11/07/18 History nitroglycerin 0.4 mg sublingual 0.4 mg SL Q5M PRN #1 tab 07/07/18 11/07/18 Rx tablet clopidogrel [Plavix] 75 mg PO QAM 08/10/18 11/07/18 History diclofenac sodium [Voltaren] 4 gm TOP QID PRN MDD 16G 08/10/18 11/07/18 History duloxetine [Cymbalta] 60 mg PO QAM 08/10/18 11/07/18 History fluticasone [Flonase Allergy 2 spray INTRANASAL DAILY PRN 08/10/18 11/07/18 History Relief] lidocaine 1 applic TOPICAL QID PRN 08/10/18 11/07/18 History ondansetron HCl [Zofran] 8 mg PO Q6 PRN 08/10/18 11/07/18 History potassium chloride 20 meq PO BID 08/10/18 11/07/18 History cyanocobalamin (vitamin B-12) 1,000 mcg PO QAM 08/31/18 11/07/18 History [Vitamin B-12] oxycodone 10 mg PO BID 08/31/18 11/07/18 History quetiapine [Seroquel XR] 150 mg PO HS 08/31/18 11/07/18 History vit A,C and S-[id number] 1 tab PO QAM 08/31/18 11/07/18 History [Ocuvite with Lutein] cephalexin 500 mg PO BID 09/26/18 11/07/18 History gabapentin 300 mg PO TID 09/26/18 11/07/18 History polyethylene glycol 3350 [Miralax] 17 gm PO QAM 09/26/18 11/07/18 History vitamin B complex 1 tab PO QAM 09/26/18 11/07/18 History dexlansoprazole [Dexilant] 60 mg PO BID 11/07/18 11/07/18 History duloxetine 30 mg PO QAM 11/07/18 11/07/18 History midodrine 2.5 mg PO TID@0800,1200,1700 11/07/18 11/07/18 History midodrine 5 mg PO TID@0800,1200,1700 11/07/18 11/07/18 History phenazopyridine [Azo Urinary Pain 97.5 mg PO TID PRN 11/07/18 11/07/18 History Relief] prazosin 1 mg PO HS 11/07/18 11/07/18 History prednisone 10 mg PO QAM 11/07/18 11/07/18 History Allergies Allergy/AdvReac Type Severity Reaction Status Date / Time nitrofurantoin Allergy Severe HIVES Verified 09/26/18 14:12 scallops Allergy Severe THROAT Verified 09/26/18 14:12 SWELLS Cipro Allergy Intermediate HIVES Verified 06/03/18 16:34 ciprofloxacin Allergy Intermediate HIVES Verified 09/26/18 14:12 latex Allergy Intermediate RASH Verified 09/26/18 14:12 Quinolones Allergy Intermediate HIVES Verified 09/26/18 14:12 fluticasone Allergy Unknown ADVAIR-UNKN Verified 09/26/18 14:12 OWN salmeterol Allergy Unknown ADVAIR Verified 09/26/18 14:12 celecoxib AdvReac Intermediate barretts Verified 09/26/18 14:12 esophagus lactose AdvReac Intermediate GI UPSET Verified 09/26/18 14:12 morphine AdvReac Intermediate NAUSEA AND Verified 09/26/18 14:12 VOMITING Past Med/Surg History Medical History Rheumatoid arthritis Chronic back pain (Chronic) Arthritis (Chronic) Acute gastritis (Acute 03/23/12) Cholecystectomy (Resolved 03/10/13) Depression (Chronic 03/10/13) Impacted cerumen (Chronic 03/10/13) Osteoarthritis (Chronic 03/10/13) Pituitary adenoma (Chronic 03/10/13) 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) Altered mental status Ambulatory dysfunction Chronic anemia (Acute) Complicated UTI (urinary tract infection) Dysuria FUO (fever of unknown origin) Failure of outpatient treatment Fall from ground level Generalized weakness Infected abrasion of great toe of left foot Infected abrasion of great toe of right foot Major depressive disorder, recurrent episode with anxious distress SIRS (systemic inflammatory response syndrome) Sepsis Slurred speech Symptoms involving urinary system (Acute) UTI (urinary tract infection) Urinary tract infection Viral syndrome Colostomy present Diabetes mellitus Diverticula of colon Falls frequently History of colitis Lactose intolerance Low blood pressure TIA (transient ischemic attack) Surgical History History of hip replacement (Chronic) Hx of cholecystectomy (Chronic) H/O: hysterectomy (Chronic) History of surgical removal of pituitary gland History of surgical removal of pituitary gland Social History marital status: Current Living Situation: Alone Current Living Situation Comment: With HHN Other Information That Helps Us Care for You: No Feels Safe at Home: Yes Safety Concerns: Feels Safe At This Time Smoking Status: Never smoker Do You Dip or Chew Tobacco: No Second Hand Exposure: No Tobacco Cessation Education Requested by Patient: No Hx Alcohol Use: No Hx Substance Use: No Beliefs That Will Affect Care: None Communication Ability: Effective Review of Systems See HPI for pertinent positives & negatives. and A total of 10 systems reviewed and were otherwise negative Physical Exam Vital Signs Vital Signs - 24 hr 11/07/18 16:58 11/07/18 18:14 11/07/18 20:24 Temperature 36.5 C Temperature Source Oral Sepsis Recent Fever Within 48 Hours No Sepsis New/Unexplained Change in Mental Status No Sepsis Action Taken by Nursing No Action Required Pulse Rate 102 H Pulse Rate [Right Finger] 90 93 H Pulse Rhythm [Right Finger] Regular Pulse Strength [Right Finger] Normal Respiratory Rate 20 16 20 Respiratory Effort / Characteristics Non-Labored Spontaneous Non-Labored Spontaneous Respiratory Depth Normal Normal Respiratory Pattern Regular Regular Blood Pressure 111/48 L Blood Pressure [Left Arm] 115/60 136/64 Blood Pressure [Right Arm] Blood Pressure Mean 69 Blood Pressure Mean [Left Arm] 78 88 Blood Pressure Mean [Right Arm] Blood Pressure Position [Left Arm] Blood Pressure Position [Right Arm] Pulse Oximetry 96 96 97 Oxygen Delivery Method Room Air Room Air Room Air Oxygen Flow Rate 11/07/18 21:30 11/07/18 22:18 11/08/18 00:15 Temperature 36.6 C Temperature Source Oral Sepsis Recent Fever Within 48 Hours Sepsis New/Unexplained Change in Mental Status Sepsis Action Taken by Nursing Pulse Rate 95 H Pulse Rate [Right Finger] 102 H Pulse Rhythm [Right Finger] Regular Pulse Strength [Right Finger] Normal Respiratory Rate 20 18 Respiratory Effort / Characteristics Non-Labored Spontaneous Respiratory Depth Normal Respiratory Pattern Regular Blood Pressure 159/81 H Blood Pressure [Left Arm] Blood Pressure [Right Arm] 168/77 H 108/62 Blood Pressure Mean Blood Pressure Mean [Left Arm] Blood Pressure Mean [Right Arm] 107 77 Blood Pressure Position [Left Arm] Blood Pressure Position [Right Arm] Lying Lying Pulse Oximetry 93 95 90 Oxygen Delivery Method Room Air Room Air Room Air Oxygen Flow Rate 11/08/18 01:38 11/08/18 06:37 11/08/18 07:29 Temperature 36.5 C Temperature Source Oral Sepsis Recent Fever Within 48 Hours Sepsis New/Unexplained Change in Mental Status Sepsis Action Taken by Nursing Pulse Rate Pulse Rate [Right Finger] 90 94 H Pulse Rhythm [Right Finger] Regular Pulse Strength [Right Finger] Normal Respiratory Rate 18 20 Respiratory Effort / Characteristics Non-Labored Respiratory Depth Normal Normal Respiratory Pattern Regular Blood Pressure Blood Pressure [Left Arm] 106/60 Blood Pressure [Right Arm] 103/66 Blood Pressure Mean Blood Pressure Mean [Left Arm] 75 Blood Pressure Mean [Right Arm] 78 Blood Pressure Position [Left Arm] Blood Pressure Position [Right Arm] Lying Pulse Oximetry 98 Oxygen Delivery Method Nasal Cannula Nasal Cannula Oxygen Flow Rate 2 2 11/08/18 09:00 11/08/18 12:21 11/08/18 12:22 Temperature Temperature Source Sepsis Recent Fever Within 48 Hours Sepsis New/Unexplained Change in Mental Status Sepsis Action Taken by Nursing Pulse Rate Pulse Rate [Right Finger] 111 H Pulse Rhythm [Right Finger] Pulse Strength [Right Finger] Respiratory Rate Respiratory Effort / Characteristics Non-Labored Spontaneous Respiratory Depth Normal Respiratory Pattern Regular Blood Pressure Blood Pressure [Left Arm] 103/65 Blood Pressure [Right Arm] 81/47 L Blood Pressure Mean Blood Pressure Mean [Left Arm] 77 Blood Pressure Mean [Right Arm] 58 Blood Pressure Position [Left Arm] Blood Pressure Position [Right Arm] Pulse Oximetry Oxygen Delivery Method Nasal Cannula Oxygen Flow Rate 2 11/08/18 13:22 11/08/18 15:15 Temperature 36.8 C Temperature Source Oral Sepsis Recent Fever Within 48 Hours Sepsis New/Unexplained Change in Mental Status Sepsis Action Taken by Nursing Pulse Rate Pulse Rate [Right Finger] 108 H 102 H Pulse Rhythm [Right Finger] Pulse Strength [Right Finger] Respiratory Rate 20 Respiratory Effort / Characteristics Respiratory Depth Respiratory Pattern Blood Pressure Blood Pressure [Left Arm] 134/59 L Blood Pressure [Right Arm] 108/66 Blood Pressure Mean Blood Pressure Mean [Left Arm] 84 Blood Pressure Mean [Right Arm] 80 Blood Pressure Position [Left Arm] Lying Blood Pressure Position [Right Arm] Pulse Oximetry 20 L Oxygen Delivery Method Nasal Cannula Oxygen Flow Rate Course 1717: Past medical records reviewed. The patient was evaluated in room B09, and a complete history and physical examination were performed. 1723: I reviewed the patient's case with Dr. Sorensen [facility]rolog[facility]. He will evaluate the patient for further management. 1730: Dr. Sorensen [facility]rolog[facility] returned call. He agrees with the Cefepime as treatment. 1740: I updated the patient about the plan. 1849: I discussed the patient's case with Dr. Jorje Russo who will evaluate the patient for further management. 2003: I discussed the patient's case with Dr. Wenceslao Russo who will evaluate the patient for further management. Consultations Consultation #1: 0735: I reviewed the patient's case with Dr. Garg- Urology. He will evaluate the patient for further management. Time: 17:23 Consultation #2: Dr. Jorje Rsuso Time: 18:49 Consultation #3: Dr. Wenceslao Russo Time: 20:04 Administered Medications Acetaminophen (Tylenol) 650 mg PO Q4H PRN PRN Reason: pain/fever Stop: 12/07/18 21:57 Last Admin: 11/08/18 15:30 Dose: 650 mg Admin: 11/08/18 00:23 Dose: 650 mg Ascorbic [facility] (Vitamin C) [facility] Stop: 12/08/18 08:59 Last Admin: 11/08/18 09:00 Dose: 500 mg Aspirin (Ecotrin Ectab) [facility] [place] Stop: 12/08/18 08:59 Last Admin: 11/08/18 09:00 Dose: 81 mg Clopidogrel Bisulfate (Plavix) [facility] [place] Stop: 12/08/18 08:59 Last Admin: 11/08/18 09:07 Dose: 75 mg Cyanocobalamin (Vitamin B-12) 1,000 [facility]cg [facility] [place] Stop: 12/08/18 08:59 Last Admin: 11/08/18 08:59 Dose: 1,000 mcg Duloxetine HCl (Cymbalta) [facility] [place] Stop: 12/08/18 08:59 Last Admin: 11/08/18 09:09 Dose: 30 mg Duloxetine HCl (Cymbalta) 60 mg PO QAM [facility] Stop: 12/08/18 08:59 Last Admin: 11/08/18 08:59 Dose: 60 mg Gabapentin (Neurontin) 300 mg PO TID [facility] Stop: 12/07/18 22:59 Last Admin: 11/08/18 13:23 Dose: 300 mg Admin: 11/08/18 09:07 Dose: 300 mg Admin: 11/07/18 23:07 Dose: 300 mg Hydroxychloroquine Sulfate (Plaquenil) 300 mg PO QDB [facility] Stop: 12/08/18 07:29 Last Admin: 11/08/18 09:00 Dose: 300 mg Sodium Chloride (Nss 1000ml) 1,000 mls @ 80 mls/hr IV .[id number] [facility] Stop: 12/08/18 13:29 Last Admin: 11/08/18 14:51 Dose: Not Given Admin: 11/08/18 13:47 Dose: 80 mls/hr Levothyroxine Sodium (Synthroid) 88 mcg PO DAILYBB [facility] Stop: 12/08/18 06:29 Last Admin: 11/08/18 06:06 Dose: 88 mcg Midodrine (Proamatine) 5 mg PO TID@0800,1200,1700 [facility] Stop: 12/08/18 07:59 Last Admin: 11/08/18 12:23 Dose: 5 mg Admin: 11/08/18 08:59 Dose: 5 mg Oxycodone HCl (Roxicodone Immediate Rel) 10 mg PO BID [facility] Stop: 11/21/18 22:59 Last Admin: 11/08/18 09:14 Dose: 10 mg Admin: 11/07/18 23:07 Dose: 10 mg Pantoprazole Sodium (Protonix) 40 mg PO BID [facility] Stop: 12/07/18 22:59 Last Admin: 11/08/18 09:07 Dose: 40 mg Admin: 11/07/18 22:59 Dose: 40 mg Polyethylene Glycol (Miralax Powder Packet) 17 gm PO QAM [facility] Stop: 12/08/18 08:59 Last Admin: 11/08/18 09:09 Dose: 17 gm Potassium Chloride (Klor-Con Pwd) 20 meq PO BID [facility] Stop: 12/07/18 22:59 Last Admin: 11/08/18 09:09 Dose: 20 meq Admin: 11/07/18 22:57 Dose: 20 meq Prazosin HCl (Prazosin Hcl) 1 mg PO [facility] Stop: 12/07/18 22:59 Last Admin: 11/07/18 22:59 Dose: 1 mg Prednisone (Prednisone) 10 mg PO QAM [facility] Stop: 12/08/18 08:59 Last Admin: 11/08/18 09:00 Dose: 10 mg Quetiapine Fumarate (Seroquel) 150 mg PO [facility]; Protocol Stop: 12/07/18 22:59 Last Admin: 11/07/18 22:59 Dose: 150 mg Discontinued Medications Cefepime HCl (Maxipime) Confirm Administered Dose 2,000 mg .ROUTE .STK-MED ONE Stop: 11/07/18 18:10 Last Admin: 11/07/18 18:10 Dose: 2,000 mg Sodium Chloride (Nss 1000ml) 1,000 mls @ 999 mls/hr IV .Q1H1M [facility] Stop: 11/07/18 18:30 Last Infusion: 11/07/18 21:15 Dose: 0 mls/hr Admin: 11/07/18 17:26 Dose: 999 mls/hr Cefepime HCl 2,000 mg/ Syringe 20 mls @ 5.5 mls/min IV NOW STA Stop: 11/07/18 17:39 Last Admin: 11/07/18 18:11 Dose: Not Given Midodrine (Proamatine) 5 mg PO ONE ONE Stop: 11/08/18 00:19 Last Admin: 11/08/18 00:24 Dose: 5 mg Oxycodone/Acetaminophen (Percocet 5mg/325mg) 1 tab PO NOW STA Stop: 11/07/18 20:24 Last Admin: 11/07/18 20:42 Dose: 1 tab Medical Decision Making Differential Diagnosis Differential diagnosis: Etiologies such as biliary colic, cholecystitis, hepatitis, perihepatitis, pancreatitis, cardiac disease, pancreatitis, gastritis, peptic ulcer disease, appendicitis, ovarian cyst, ovarian torsion, pelvic inflammatory disease, cystitis, diverticulitis, mesenteric ischemia, inflammatory bowel disease, ileus , bowel obstruction, aortic pathology, shingles, as well as others were considered. Medical Records Attestation: I reviewed the patient's medical records. Home Medications Current Medication List: was personally reviewed by me Laboratory Data Attestation: I reviewed the patient's lab results. Result diagrams: 11/08/18 08:07 11/07/18 17:44 Lab Results 11/07/18 11/07/18 11/07/18 Range/Units 17:44 17:44 17:44 WBC 13.59 H (4.8-10.8) K/uL RBC 3.88 L (4.2-5.4) M/uL Hgb 11.3 L (12.0-16.0) g/dL Hct 37.0 (37-47) % MCV 95.4 (80-100) fL MCH 29.1 (25-34) pg MCHC 30.5 L (32-36) g/dL RDW Std Deviation 55.8 H (36.4-46.3) fL RDW Coeff of Omar 16.1 H (11.5-14.5) % Plt Count 269 (130-400) K/uL MPV 9.7 (7.4-10.4) fL Immature Gran % (Auto) 1.3 % Neut % (Auto) 75.9 % Lymph % (Auto) 12.4 % Gonzales % (Auto) 9.8 % Eos % (Auto) 0.4 % Baso % (Auto) 0.2 % Immature Gran # (Auto) 0.17 H (0.00-0.02) K/uL Neut # (Auto) 10.32 H (1.4-6.5) K/uL Lymph # (Auto) 1.69 (1.2-3.4) K/uL Gonzales # (Auto) 1.33 H (0.11-0.59) K/uL Eos # (Auto) 0.05 (0-0.5) K/uL Baso # (Auto) 0.03 (0-0.2) K/uL Absolute Nucleated RBC 0.02 H (0-0) K/uL Nucleated RBC % (auto) 0.2 % ESR 77 H (0-21) mm/hr Sodium 137 (136-145) mmol/L Potassium 4.2 (3.5-5.1) mmol/L Chloride 100 (98-107) mmol/L Carbon Dioxide 29 (21-32) mmol/L Anion Gap 8.0 (3-11) BUN 19 H (7-18) mg/dl Creatinine 1.20 (0.6-1.2) mg/dl Est Cr Clr Drug Dosing Not Reportable Est GFR ( Amer) 47.7 Est GFR (Non-Af Amer) 41.2 BUN/Creatinine Ratio 15.4 (10-20) Glucose 114 H (70-99) mg/dl Calcium 9.2 (8.5-10.1) mg/dl Total Bilirubin 0.3 (0.2-1) mg/dl AST 15 (15-37) U/L ALT 27 (12-78) U/L Alkaline Phosphatase 88 (45-117) U/L C-Reactive Protein 3.79 H (0-0.29) mg/dl Total Protein 7.3 (6.4-8.2) gm/dl Albumin 3.3 L (3.4-5.0) gm/dl Globulin 4.0 (2.5-4.0) gm/dl Albumin/Globulin Ratio 0.8 L (0.9-2) Lipase 66 L (73-393) U/L Urine Color Urine Appearance (Clear) Urine pH (4.5-7.5) Ur Specific [place] (1.000-1.030) Urine Protein (Negative) Urine Glucose (UA) (Negative) Urine Ketones (Negative) Urine Blood (Negative) Urine Nitrite (Negative) Urine Bilirubin (Negative) Urine Urobilinogen (Negative) Ur Leukocyte Esterase (Negative) Urine WBC (Auto) (0-5) /hpf Urine RBC (Auto) (0-4) /hpf U Hyaline Cast (Auto) (0-5) /lpf U Epithel Cells (Auto) (0-5) /lpf Urine Bacteria (Auto) (Negative) 11/07/18 11/08/18 Range/Units 20:05 08:07 WBC 10.59 (4.8-10.8) K/uL RBC 2.97 L (4.2-5.4) M/uL Hgb 8.7 L (12.0-16.0) g/dL Hct 28.7 L (37-47) % MCV 96.6 (80-100) fL MCH 29.3 (25-34) pg MCHC 30.3 L (32-36) g/dL RDW Std Deviation 58.2 H (36.4-46.3) fL RDW Coeff of Omar 16.5 H (11.5-14.5) % Plt Count 231 (130-400) K/uL MPV 9.7 (7.4-10.4) fL Immature Gran % (Auto) 1.0 % Neut % (Auto) 62.8 % Lymph % (Auto) 18.8 % [place] % (Auto) 14.7 % Eos % (Auto) 2.5 % Baso % (Auto) 0.2 % Immature Gran # (Auto) 0.11 H (0.00-0.02) K/uL Neut # (Auto) 6.64 H (1.4-6.5) K/uL Lymph # (Auto) 1.99 (1.2-3.4) K/uL [place] # (Auto) 1.56 H (0.11-0.59) K/uL Eos # (Auto) 0.27 (0-0.5) K/uL Baso # (Auto) 0.02 (0-0.2) K/uL Absolute Nucleated RBC (0-0) K/uL Nucleated RBC % (auto) % ESR (0-21) mm/hr Sodium (136-145) mmol/L Potassium (3.5-5.1) mmol/L Chloride (98-107) mmol/L Carbon Dioxide (21-32) mmol/L Anion Gap (3-11) BUN (7-18) mg/dl Creatinine (0.6-1.2) mg/dl Est Cr Clr Drug Dosing Est GFR ( Amer) Est GFR (Non-Af Amer) BUN/Creatinine Ratio (10-20) Glucose (70-99) mg/dl Calcium (8.5-10.1) mg/dl Total Bilirubin (0.2-1) mg/dl AST (15-37) U/L ALT (12-78) U/L Alkaline Phosphatase (45-117) U/L C-Reactive Protein (0-0.29) mg/dl Total Protein (6.4-8.2) gm/dl Albumin (3.4-5.0) gm/dl Globulin (2.5-4.0) gm/dl Albumin/Globulin Ratio (0.9-2) Lipase (73-393) U/L Urine Color Yellow Urine Appearance Clear (Clear) Urine pH 7.0 (4.5-7.5) Ur Specific [place] 1.012 (1.000-1.030) Urine Protein Negative (Negative) Urine Glucose (UA) Negative (Negative) Urine Ketones Negative (Negative) Urine Blood 1+ H (Negative) Urine Nitrite Positive H (Negative) Urine Bilirubin Negative (Negative) Urine Urobilinogen Negative (Negative) Ur Leukocyte Esterase 2+ H (Negative) Urine WBC (Auto) >30 H (0-5) /hpf Urine RBC (Auto) 5-10 H (0-4) /hpf U Hyaline Cast (Auto) 1-5 (0-5) /lpf U Epithel Cells (Auto) 0-5 (0-5) /lpf Urine Bacteria (Auto) Negative (Negative) Imaging Data Attestation: I personally reviewed and interpreted this imaging study as follows : Radiologist's Impression: Radiology results as stated below per my review and the radiologist's interpretation: [facility]UB CLINICAL HISTORY: Suprapubic pain. COMPARISON STUDY: CT of the abdomen and pelvis August 31, 2018. FINDINGS: Bilateral hip arthroplasties are incidentally noted. The bowel gas pattern is normal. There is a left lower quadrant ostomy. Pelvic calcifications reflect phleboliths. Bilateral renal calculi are noted. IMPRESSION: 1. No evidence for a bowel obstruction. 2. Bilateral nephrolithiasis. Electronically signed by: Anjel Encarnacion M.D. 11/07/2018 6:31 PM Blood Pressure Blood Pressure Findings: Normal blood pressure MDM Narrative The patient is an 87-year-old female who presented to the emergency department at the request of her urologist. The patient has a history of multiple urinary tract infections in the past which is been very difficult to manage with antibiotics because of the patient's antibiotic allergies as well as the antibiogram for the infections that she has had in the past. The patient was found have a urinary tract infection with a positive culture over the last few days. She was not started on an antibiotic as of yet and was to have a urologic procedure today. She was not feeling well and was instructed to come to the emergency department. I discussed the patient's condition with her covering urologist. At this time they would recommend IV antibiotics and discussion with the admitting team for possible inpatient management and consultation with infectious disease. I discussed the patient's laboratory and radiographic studies with her. I also discussed her case with the on-call [facility] hospitalist. They have agreed to evaluate the patient in the emergency department for further management and disposition. The patient was treated with IV fluids and IV antibiotics. Impression & Plan Pyelonephritis Discharge Plan Visit Data *Final* Discharge Date/Time: 11/07/18 21:30 Chief Complaint: Referred by Doctor Stated Complaint: UTI ED Provider: Wyatt Winter Discharge Problem: Pyelonephritis Patient Disposition: Admitted As Inpatient Discharge Instructions Interventions: ED Discharge Assessment Last Done: 11/07/18 21:30 The scribe's documentation has been prepared under my direction and personally reviewed by me in its entirety. I confirm that the note above accurately reflects all work, treatment, procedures, and medical decision making performed by me.
--- NOTE | 2018-11-07 19:44 | History & Physical Report ---
Date of Service November 07, 2018 Assessment & Plan (1) UTI (urinary tract infection): 87 y/o F Hx SLE, PVD, hypothyroidism, anemia, recurrent UTIs with sepsis. The pt was treated for pansensitive Pseudomonas 10/13. She recently developed urinary tract symptoms again and culture results returned (+) for pansensitive enterobacter cloacae 11/04. She states that she has been taking Keflex for at least the past two weeks. Despite treatment with seemingly appropriate antibiotics, she has become progressively weak over the past day and describes burning with urination. The pt was due for a cystoscopy later in the week and discussed the above with her urologist. She has a history of resistant UTIs and a rectovesical fistula. She also has a tendency to develop sepsis and was therefore directed to attend the hospital for broad spectrum antibiotics pending repeat culture results. 1) UTI/weakness - does not examine as pyelonephritis presently. She is admitted at the behest of her urologist and placed on Cefepime pending the results of an additional culture. 2) RA/SLE - the pt takes Hydrochloroquine and is also prednisone-dependent. We will continue her meds as scheduled. We would keep stress dosing in mind i if she appears to be developing sepsis. 3) PVD - cont Plavix 4) Hypothyroidism - cont Synthroid 5) Anemia - Hb is above baseline Full code - SCDs as may need cystoscopy Total time for this admit including review of labs, meds, imaging, records - discussion with pt, excel expert and ER attending - 39 min History of Present Illness Chief Complaint: UTI and weakness Primary Care Provider: Nidhi Gardner MD 87 y/o F Hx SLE, PVD, neuropathy, hypothyroidism, anemia, recurrent UTIs with sepsis. The pt was treated for pansensitive Pseudomonas 10/13. She recently developed urinary tract symptoms again and culture results returned (+) for pansensitive enterobacter cloacae 11/04. She states that she has been taking Keflex for at least the past two weeks. Despite treatment with seemingly appropriate antibiotics, she has become progressively weak over the past day and describes burning with urination. The pt was due for a cystoscopy later in the week and discussed the above with her urologist. She has a history of resistant UTIs and a rectovesical fistula. She also has a tendency to develop sepsis and was therefore directed to attend the hospital for broad spectrum antibiotics pending repeat culture results. PMH: 1) Peripheral neuropathy 2) SLE and possibly RA 3) Recurrent UTIs - last with pansensitive Pseudomonas and Enterobacter Cloacae 10/2018 4) PVD with LE ulcers 5) Hypothyroidism 6) Anemia of chronic disease - baseline Hb 8-10 7) Hypothyroidism 8) C - diff 9) Depression Surgical: 1) Hysterectomy 2) Hip replacement 3) Cholecystectomy 4) Sigmoidectomy w/colostomy Allergies Allergy/AdvReac Type Severity Reaction Status Date / Time nitrofurantoin Allergy Severe HIVES Verified 09/26/18 14:12 scallops Allergy Severe THROAT Verified 09/26/18 14:12 SWELLS Cipro Allergy Intermediate HIVES Verified 06/03/18 16:34 ciprofloxacin Allergy Intermediate HIVES Verified 09/26/18 14:12 latex Allergy Intermediate RASH Verified 09/26/18 14:12 Quinolones Allergy Intermediate HIVES Verified 09/26/18 14:12 fluticasone Allergy Unknown ADVAIR-UNKN Verified 09/26/18 14:12 OWN salmeterol Allergy Unknown ADVAIR Verified 09/26/18 14:12 celecoxib AdvReac Intermediate barretts Verified 09/26/18 14:12 esophagus lactose AdvReac Intermediate GI UPSET Verified 09/26/18 14:12 morphine AdvReac Intermediate NAUSEA AND Verified 09/26/18 14:12 VOMITING Home Medications Home Medications Medication Instructions Recorded Confirmed Type ascorbic acid (vitamin C) 500 mg 500 mg PO QAM 07/07/18 11/07/18 History tablet aspirin 81 mg tablet,delayed 81 mg PO QAM 07/07/18 11/07/18 History release cholecalciferol (vitamin D3) 2,000 2,000 units PO QAM 07/07/18 11/07/18 History unit capsule fexofenadine 60 mg tablet 60 mg PO DAILY PRN tab 07/07/18 11/07/18 History furosemide 20 mg tablet 20 mg PO DAILY PRN 07/07/18 11/07/18 History hydroxychloroquine 200 mg tablet 300 mg PO QAM tab 07/07/18 11/07/18 History levothyroxine 88 mcg tablet 88 mcg PO QAM 07/07/18 11/07/18 History nitroglycerin 0.4 mg sublingual 0.4 mg SL Q5M PRN #1 tab 07/07/18 11/07/18 Rx tablet clopidogrel [Plavix] 75 mg PO QAM 08/10/18 11/07/18 History diclofenac sodium [Voltaren] 4 gm TOP QID PRN MDD 16G 08/10/18 11/07/18 History duloxetine [Cymbalta] 60 mg PO QAM 08/10/18 11/07/18 History fluticasone [Flonase Allergy 2 spray INTRANASAL DAILY PRN 08/10/18 11/07/18 History Relief] lidocaine 1 applic TOPICAL QID PRN 08/10/18 11/07/18 History ondansetron HCl [Zofran] 8 mg PO Q6 PRN 08/10/18 11/07/18 History potassium chloride 20 meq PO BID 08/10/18 11/07/18 History cyanocobalamin (vitamin B-12) 1,000 mcg PO QAM 08/31/18 11/07/18 History [Vitamin B-12] oxycodone 10 mg PO BID 08/31/18 11/07/18 History quetiapine [Seroquel XR] 150 mg PO HS 08/31/18 11/07/18 History vit A,C and F-zboppa-onfalsin 1 tab PO QAM 08/31/18 11/07/18 History [Ocuvite with Lutein] cephalexin 500 mg PO BID 09/26/18 11/07/18 History gabapentin 300 mg PO TID 09/26/18 11/07/18 History polyethylene glycol 3350 [Miralax] 17 gm PO QAM 09/26/18 11/07/18 History vitamin B complex 1 tab PO QAM 09/26/18 11/07/18 History dexlansoprazole [Dexilant] 60 mg PO BID 11/07/18 11/07/18 History duloxetine 30 mg PO QAM 11/07/18 11/07/18 History midodrine 2.5 mg PO TID@0800,1200,1700 11/07/18 11/07/18 History midodrine 5 mg PO TID@0800,1200,1700 11/07/18 11/07/18 History phenazopyridine [Azo Urinary Pain 97.5 mg PO TID PRN 11/07/18 11/07/18 History Relief] prazosin 1 mg PO HS 11/07/18 11/07/18 History prednisone 10 mg PO QAM 11/07/18 11/07/18 History Past Med/Surg History Medical History Rheumatoid arthritis Chronic back pain (Chronic) Arthritis (Chronic) Acute gastritis (Acute 03/23/12) Cholecystectomy (Resolved 03/10/13) Depression (Chronic 03/10/13) Impacted cerumen (Chronic 03/10/13) Osteoarthritis (Chronic 03/10/13) Pituitary adenoma (Chronic 03/10/13) 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) Altered mental status Ambulatory dysfunction Chronic anemia (Acute) Complicated UTI (urinary tract infection) Dysuria FUO (fever of unknown origin) Failure of outpatient treatment Fall from ground level Generalized weakness Infected abrasion of great toe of left foot Infected abrasion of great toe of right foot Major depressive disorder, recurrent episode with anxious distress SIRS (systemic inflammatory response syndrome) Sepsis Slurred speech Symptoms involving urinary system (Acute) UTI (urinary tract infection) Urinary tract infection Viral syndrome Colostomy present Diabetes mellitus Diverticula of colon Falls frequently History of colitis Lactose intolerance Low blood pressure TIA (transient ischemic attack) Surgical History History of hip replacement (Chronic) Hx of cholecystectomy (Chronic) H/O: hysterectomy (Chronic) History of surgical removal of pituitary gland History of surgical removal of pituitary gland Social History marital status: Current Living Situation: Alone Current Living Situation Comment: With [facility] Feels Safe at Home: Yes Smoking Status: Never smoker Second Hand Exposure: No Hx Alcohol Use: No Hx Substance Use: No Beliefs That Will Affect Care: None Preferred Language: Polish Review of Systems Gen: Denies fevers, night sweats, rigors - describes progressive weakness Eyes: Denies acute visual changes CV: Denies CP, palpitations Pulmonary: Denies SOB, cough, wheezing GI: Denies N/V, diarrhea, constipation : Reports dysuria as above Neuro: Denies acute unilateral weakness, acute gait impairment, headache or acute visual changes Musculoskeletal: Denies joint pain, inflammation Endocrine: Denies polydipsia, polyuria Skin: Denies acute rashes or ulcers Physical Exam 2 Vital Signs (Past 24 Hours): Last Vital Signs Temp 36.5 C 11/07/18 16:58 Pulse 90 11/07/18 18:14 Resp 16 11/07/18 18:14 BP 115/60 11/07/18 18:14 Pulse Ox 96 11/07/18 18:14 Physical Exam: General: AAO x 3, no distress ENT: No erythema or exudates, no thrush Eyes: DORIS, EOMI Head and neck: Normocephalic, atraumatic, No JVD, neck is supple. Chest/heart: Nontender, S1,2, RRR, no murmurs, no gallops Lungs: CTAB, no wheezing or crackles Abdomen: Nontender, nondistended, BS+ - there is no flank tenderness - a colostomy bag is present in the LLQ Neuro: AAO x 3, speech is clear, no unilateral weakness or loss of sensation, coordination intact Musculoskeletal: No joint inflammation, muscle tenderness, FROM Skin: No acute rashes or ulcers Extremities: No clubbing, cyanosis, edema
[2018-11-07] MEDS ORDERED: OXYCODONE/ACETAMINOPHEN 5mg/325mg TAB PO STA (20:23)
[2018-11-07 20:30] LABS: Appearance Urine Clear (Clear); Bacteria Urine Automated Negative (Negative); Bilirubin Urine Negative (Negative); Color Urine Yellow; Epithelial Cell Urine Auto 0-5 /lpf (0-5); Glucose Urine UA Negative (Negative); Ketones Urine Negative (Negative); Leukocyte Esterase Urine 2+ (Negative); Nitrite Urine Positive (Negative); Protein Urine Negative (Negative); Specific Gravity Urine 1.012 (1.000-1.030); Urobilinogen Urine Negative (Negative); WBC Urine Automated >30 /hpf (0-5)
[2018-11-07] MEDS ORDERED: MAGNESIUM HYDROXIDE SUSP 30 ML UDC PO PRN (21:58)
[2018-11-07] MEDS ORDERED: ONDANSETRON INJ 2 MG/ML 2 ML VIAL IV PRN (21:58)
[2018-11-07] MEDS ORDERED: ALUMINUM/MAGNESIUM SUSP 30 ML UDC PO PRN (21:58)
[2018-11-07] MEDS ORDERED: LIDOCAINE HCL 5% OINT 30 GM TUBE EXT PRN (22:14)
[2018-11-07] MEDS ORDERED: CEFEPIME CONSULT ACTIVE PRN (22:19)
[2018-11-07] MEDS: POTASSIUM CHLORIDE PWD 20 MEQ PACK PO SCH (22:57)
[2018-11-07] MEDS: QUETIAPINE FUMARATE 100 MG TABLET PO SCH (22:59)
[2018-11-07] MEDS: PANTOprazole 40 MG TAB PO SCH (22:59)
[2018-11-07] MEDS: PRAZOSIN HCL 1 MG CAP PO SCH (22:59)
[2018-11-07] MEDS: OXYCODONE HCL IR 5 MG TAB (IMMEDIATE RELEASE) PO SCH (23:07)
[2018-11-07] MEDS: GABAPENTIN 300 MG CAP PO SCH (23:07)
[2018-11-08] MEDS ORDERED: MIDODRINE HCL 2.5 MG TAB PO ONE (00:18)
[2018-11-08] MEDS: MIDODRINE HCL 2.5 MG TAB PO SCH ×4 (00:18→16:17)
[2018-11-08] MEDS: ACETAMINOPHEN 325 MG TAB PO PRN ×2 (00:23→15:30)
[2018-11-08] MEDS: LEVOTHYROXINE SODIUM 88 MCG TABLET PO SCH (06:06)
[2018-11-08] MEDS ORDERED: MIDODRINE HCL 2.5 MG TAB PO SCH (08:00)
[2018-11-08 08:45] LABS: Basophils # (auto) 0.02 K/uL (0-0.2); Basophils % (auto) 0.2 %; Eosinophils # (auto) 0.27 K/uL (0-0.5); Eosinophils % (auto) 2.5 %; Hematocrit (blood only) 28.7 % (37-47); Hemoglobin 8.7 g/dL (12.0-16.0); Immature Granulocytes # (auto) 0.11 K/uL (0.00-0.02); Lymphocytes # (auto) 1.99 K/uL (1.2-3.4); Lymphocytes % (auto) 18.8 %; Mean Corpuscular Hgb Conc 30.3 g/dL (32-36); Mean Corpuscular Volume 96.6 fL (80-100); Mean Platelet Volume 9.7 fL (7.4-10.4); Monocytes # (auto) 1.56 K/uL (0.11-0.59); Monocytes % (auto) 14.7 %; Neutrophils # (auto) 6.64 K/uL (1.4-6.5); Neutrophils % (auto) 62.8 %; Platelet Count 231 K/uL (130-400); RDW Coefficient of Variation 16.5 % (11.5-14.5); RDW Standard Deviation 58.2 fL (36.4-46.3); Red Blood Count 2.97 M/uL (4.2-5.4); White Blood Count 10.59 K/uL (4.8-10.8)
[2018-11-08] MEDS: DULOXETINE HCL 60 MG CAP PO SCH (08:59)
[2018-11-08] MEDS: CYANOCOBALAMIN 500 MCG TABLET (VITAMIN B-12) PO SCH (08:59)
[2018-11-08] MEDS: HYDROXYCHLOROQUINE SULFATE 200 MG TAB PO SCH (09:00)
[2018-11-08] MEDS: ASCORBIC ACID 500 MG TAB PO SCH (09:00)
[2018-11-08] MEDS: predniSONE 10 MG TABLET PO SCH (09:00)
[2018-11-08] MEDS: ASPIRIN 81 MG ECTAB PO SCH (09:00)
[2018-11-08] MEDS: CLOPIDOGREL BISULFATE 75 MG TAB PO SCH (09:07)
[2018-11-08] MEDS: GABAPENTIN 300 MG CAP PO SCH ×3 (09:07→20:23)
[2018-11-08] MEDS: PANTOprazole 40 MG TAB PO SCH ×2 (09:07→20:22)
[2018-11-08] MEDS: POLYETHYLENE (MIRALAX) 17 GM PACK PO SCH (09:09)
[2018-11-08] MEDS: POTASSIUM CHLORIDE PWD 20 MEQ PACK PO SCH ×2 (09:09→20:23)
[2018-11-08] MEDS: DULOXETINE HCL 30 MG CAP PO SCH (09:09)
[2018-11-08] MEDS: OXYCODONE HCL IR 5 MG TAB (IMMEDIATE RELEASE) PO SCH ×2 (09:14→20:22)
--- NOTE | 2018-11-08 12:42 | Hospitalist Progress Note ---
Date of Service November 08, 2018 Assessment & Plan (1) UTI (urinary tract infection): - Presented with dysuria after failing outpatient treatment (Keflex PO) - UC 11/04 + Enterobacter cloacae; repeat UC and BC pending from 11/08. - Leukocytosis on admission now resolved. - Continue Cefepime IV for empiric coverage. - Follows with urology; was scheduled for cystoscopy this week (h/o frequent UTIs and rectovesical fistula), will consult as inpatient. - NS at 80 cc/hr. (2) Stage III chronic kidney disease: - Renally dose all meds. (3) Nephrolithiasis: - KUB showed bilateral nephrolithiasis. - Will monitor. (4) SLE (systemic lupus erythematosus): - Continue Hydrochloroquine and Prednisone as prescribed. (5) Rheumatoid arthritis: - Continue Hydrochloroquine and Prednisone as prescribed. - Will need to start stress dose steroids if pt is decompensating. - Oxycodone BID scheduled for pain. (6) Chronic diastolic heart failure: - TTE in 2010 showed grade I diastolic dysfunction, EF 60-65%. - Caution with continuous IV fluids. (7) Peripheral artery disease: - Continue Plavix & Aspirin as prescribed. (8) Hypothyroid: - Continue Synthroid 88 mcg daily as prescribed. (9) Chronic anemia: - Hemoglobin decreased to 8.7 today; baseline ~9.5-10.5. - May be partially dilutional related to IV fluids. - Monitor CBC qAM; Iron panel ordered in the morning. (10) Vasovagal syncope: - Continue Midodrine 5 mg TID as prescribed. (11) Neuropathy: - Continue Gabapentin and Cymbalta as prescribed. (12) Mood disorder: - Continue Seroquel 150 mg qhs as prescribed. (13) DVT prophylaxis: - Hold in setting of anemia; SCDs. Dispo: Med/surg; discharge pending UC results. Supervising Physician Co-Signing Physician Notes Attending Attestation - Chart reviewed in detail, and care plan d/w GREGORY Goldstein. I agree w/ the amaro components of her documentation. Pt with MDR enterobacter UTI. Labs/vitals remain stable. Cont IV antibiotic therapy. Consider ID consultation. Sebas Winkler MD Subjective Pt. is stable overall. She has chills, denies fevers. Has ongoing dysuria & suprapubic pain, slightly improved since admission. Denies urinary frequency, hematuria, flank pain, nausea/vomiting. Pt. was scheduled to have a cystoscopy this week -- she is requesting for the procedure to be completed as inpt due to transportation issues as outpt. Will consider urology consult. Review of Systems All systems reviewed & are unremarkable except as noted in HPI & below Constitutional: no fever, no chills and no weakness Respiratory: no cough and no dyspnea Cardiovascular: no chest pain, no palpitations and no edema Gastrointestinal: no abdominal pain, no nausea, no constipation and no diarrhea/ loose stools Genitourinary (Female): + dysuria; no difficulty urinating, no urinary frequency , no urinary incontinence and no hematuria Musculoskeletal: no joint pain Allergy / Immunological: no rash Physical Exam 2 Vital Signs (Past 24 Hours): Last Vital Signs Temp 36.5 C 11/08/18 07:29 Pulse 111 H 11/08/18 12:22 Resp 20 11/08/18 07:29 BP 103/65 11/08/18 12:22 Pulse Ox 98 11/08/18 07:29 Physical Exam: General: Resting comfortably in no apparent distress HEENT: NC/AT; PERRLA with EOMI; [place] conjunctiva, MMM. Neck: Supple and nontender Cardiac: RRR w/o murmurs, gallops or rubs Lungs: colostomy with good output; CTA bilaterally; No rhonchi, wheezing, or rales Abdomen: Bowel normoactive X 4; Tender to palpation over suprapubic region. Extremities: Warm. No edema present Neuro: No focal weakness Skin: No rash Results & Data Laboratory Results 11/08/18 11/07/18 11/07/18 Range/Units 08:07 20:05 17:44 WBC 10.59 (4.8-10.8) K/uL RBC 2.97 L (4.2-5.4) M/uL Hgb 8.7 L (12.0-16.0) g/dL Hct 28.7 L (37-47) % MCV 96.6 (80-100) fL MCH 29.3 (25-34) pg MCHC 30.3 L (32-36) g/dL RDW Std Deviation 58.2 H (36.4-46.3) fL RDW Coeff of Omar 16.5 H (11.5-14.5) % Plt Count 231 (130-400) K/uL MPV 9.7 (7.4-10.4) fL Immature Gran % (Auto) 1.0 % Neut % (Auto) 62.8 % Lymph % (Auto) 18.8 % [place] % (Auto) 14.7 % Eos % (Auto) 2.5 % Baso % (Auto) 0.2 % Immature Gran # (Auto) 0.11 H (0.00-0.02) K/uL Neut # (Auto) 6.64 H (1.4-6.5) K/uL Lymph # (Auto) 1.99 (1.2-3.4) K/uL Forrest # (Auto) 1.56 H (0.11-0.59) K/uL Eos # (Auto) 0.27 (0-0.5) K/uL Baso # (Auto) 0.02 (0-0.2) K/uL Absolute Nucleated RBC (0-0) K/uL Nucleated RBC % (auto) % ESR 77 H (0-21) mm/hr Sodium (136-145) mmol/L Potassium (3.5-5.1) mmol/L Chloride (98-107) mmol/L Carbon Dioxide (21-32) mmol/L Anion Gap (3-11) BUN (7-18) mg/dl Creatinine (0.6-1.2) mg/dl Est Cr Clr Drug Dosing Est GFR ( Amer) Est GFR (Non-Af Amer) BUN/Creatinine Ratio (10-20) Glucose (70-99) mg/dl Calcium (8.5-10.1) mg/dl Total Bilirubin (0.2-1) mg/dl AST (15-37) U/L ALT (12-78) U/L Alkaline Phosphatase (45-117) U/L C-Reactive Protein (0-0.29) mg/dl Total Protein (6.4-8.2) gm/dl Albumin (3.4-5.0) gm/dl Globulin (2.5-4.0) gm/dl Albumin/Globulin Ratio (0.9-2) Lipase (73-393) U/L Urine Color Yellow Urine Appearance Clear (Clear) Urine pH 7.0 (4.5-7.5) Ur Specific [place] 1.012 (1.000-1.030) Urine Protein Negative (Negative) Urine Glucose (UA) Negative (Negative) Urine Ketones Negative (Negative) Urine Blood 1+ H (Negative) Urine Nitrite Positive H (Negative) Urine Bilirubin Negative (Negative) Urine Urobilinogen Negative (Negative) Ur Leukocyte Esterase 2+ H (Negative) Urine WBC (Auto) >30 H (0-5) /hpf Urine RBC (Auto) 5-10 H (0-4) /hpf U Hyaline Cast (Auto) 1-5 (0-5) /lpf U Epithel Cells (Auto) 0-5 (0-5) /lpf Urine Bacteria (Auto) Negative (Negative) 11/07/18 11/07/18 Range/Units 17:44 17:44 WBC 13.59 H (4.8-10.8) K/uL RBC 3.88 L (4.2-5.4) M/uL Hgb 11.3 L (12.0-16.0) g/dL Hct 37.0 (37-47) % MCV 95.4 (80-100) fL MCH 29.1 (25-34) pg MCHC 30.5 L (32-36) g/dL RDW Std Deviation 55.8 H (36.4-46.3) fL RDW Coeff of Omar 16.1 H (11.5-14.5) % Plt Count 269 (130-400) K/uL MPV 9.7 (7.4-10.4) fL Immature Gran % (Auto) 1.3 % Neut % (Auto) 75.9 % Lymph % (Auto) 12.4 % Forrest % (Auto) 9.8 % Eos % (Auto) 0.4 % Baso % (Auto) 0.2 % Immature Gran # (Auto) 0.17 H (0.00-0.02) K/uL Neut # (Auto) 10.32 H (1.4-6.5) K/uL Lymph # (Auto) 1.69 (1.2-3.4) K/uL [place] # (Auto) 1.33 H (0.11-0.59) K/uL Eos # (Auto) 0.05 (0-0.5) K/uL Baso # (Auto) 0.03 (0-0.2) K/uL Absolute Nucleated RBC 0.02 H (0-0) K/uL Nucleated RBC % (auto) 0.2 % ESR (0-21) mm/hr Sodium 137 (136-145) mmol/L Potassium 4.2 (3.5-5.1) mmol/L Chloride 100 (98-107) mmol/L Carbon Dioxide 29 (21-32) mmol/L Anion Gap 8.0 (3-11) BUN 19 H (7-18) mg/dl Creatinine 1.20 (0.6-1.2) mg/dl Est Cr Clr Drug Dosing Not Reportable Est GFR ( Amer) 47.7 Est GFR (Non-Af Amer) 41.2 BUN/Creatinine Ratio 15.4 (10-20) Glucose 114 H (70-99) mg/dl Calcium 9.2 (8.5-10.1) mg/dl Total Bilirubin 0.3 (0.2-1) mg/dl AST 15 (15-37) U/L ALT 27 (12-78) U/L Alkaline Phosphatase 88 (45-117) U/L C-Reactive Protein 3.79 H (0-0.29) mg/dl Total Protein 7.3 (6.4-8.2) gm/dl Albumin 3.3 L (3.4-5.0) gm/dl Globulin 4.0 (2.5-4.0) gm/dl Albumin/Globulin Ratio 0.8 L (0.9-2) Lipase 66 L (73-393) U/L Urine Color Urine Appearance (Clear) Urine pH (4.5-7.5) Ur Specific [place] (1.000-1.030) Urine Protein (Negative) Urine Glucose (UA) (Negative) Urine Ketones (Negative) Urine Blood (Negative) Urine Nitrite (Negative) Urine Bilirubin (Negative) Urine Urobilinogen (Negative) Ur Leukocyte Esterase (Negative) Urine WBC (Auto) (0-5) /hpf Urine RBC (Auto) (0-4) /hpf U Hyaline Cast (Auto) (0-5) /lpf U Epithel Cells (Auto) (0-5) /lpf Urine Bacteria (Auto) (Negative)
[2018-11-08] MEDS: SODIUM CHLORIDE 0.9% 1000ML 1,000 ML IV SCH ×2 (13:47→14:51)
[2018-11-08] MEDS: CEFEPIME 2,000 MG in SYRINGE 7.5 ML IV SCH (17:35)
[2018-11-08] MEDS: PRAZOSIN HCL 1 MG CAP PO SCH (20:22)
[2018-11-08] MEDS: QUETIAPINE FUMARATE 100 MG TABLET PO SCH (20:23)
[2018-11-09] MEDS: SODIUM CHLORIDE 0.9% 1000ML 1,000 ML IV SCH (02:12)
[2018-11-09] MEDS: LEVOTHYROXINE SODIUM 88 MCG TABLET PO SCH (05:19)
[2018-11-09 07:15] LABS: Hematocrit (blood only) 28.5 % (37-47); Hemoglobin 8.6 g/dL (12.0-16.0); Mean Corpuscular Hgb Conc 30.2 g/dL (32-36); Mean Corpuscular Volume 98.6 fL (80-100); Mean Platelet Volume 9.6 fL (7.4-10.4); Platelet Count 202 K/uL (130-400); RDW Coefficient of Variation 16.2 % (11.5-14.5); RDW Standard Deviation 58.6 fL (36.4-46.3); Red Blood Count 2.89 M/uL (4.2-5.4); White Blood Count 7.95 K/uL (4.8-10.8)
[2018-11-09 07:49] LABS: BUN Creatinine Ratio 17.6 (10-20); Calcium 8.1 mg/dl (8.5-10.1); Creatinine Clr Calc Pharmacy 34.5 ml/min; Est GFR (African American) 52.4; Est GFR (Non-African American) 45.2; Magnesium 2.4 mg/dl (1.8-2.4)
[2018-11-09 07:54] LABS: Ferritin 115.8 ng/ml (8-388)
[2018-11-09] MEDS: GABAPENTIN 300 MG CAP PO SCH ×3 (08:15→21:14)
[2018-11-09] MEDS: HYDROXYCHLOROQUINE SULFATE 200 MG TAB PO SCH (08:15)
[2018-11-09] MEDS: POLYETHYLENE (MIRALAX) 17 GM PACK PO SCH (08:15)
[2018-11-09] MEDS: PANTOprazole 40 MG TAB PO SCH ×2 (08:15→21:14)
[2018-11-09] MEDS: DULOXETINE HCL 30 MG CAP PO SCH (08:15)
[2018-11-09] MEDS: CLOPIDOGREL BISULFATE 75 MG TAB PO SCH (08:15)
[2018-11-09] MEDS: DULOXETINE HCL 60 MG CAP PO SCH (08:15)
[2018-11-09] MEDS: POTASSIUM CHLORIDE PWD 20 MEQ PACK PO SCH ×2 (08:16→20:54)
[2018-11-09] MEDS: CYANOCOBALAMIN 500 MCG TABLET (VITAMIN B-12) PO SCH (08:16)
[2018-11-09] MEDS: ASCORBIC ACID 500 MG TAB PO SCH (08:16)
[2018-11-09] MEDS: ASPIRIN 81 MG ECTAB PO SCH (08:16)
[2018-11-09] MEDS: predniSONE 10 MG TABLET PO SCH (08:16)
[2018-11-09] MEDS: MIDODRINE HCL 2.5 MG TAB PO SCH ×3 (08:17→16:59)
[2018-11-09] MEDS: OXYCODONE HCL IR 5 MG TAB (IMMEDIATE RELEASE) PO SCH ×2 (08:22→20:54)
[2018-11-09] MEDS: ACETAMINOPHEN 325 MG TAB PO PRN (11:02)
--- NOTE | 2018-11-09 13:11 | Urology Consultation ---
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 Neal is very well known to our practice, unfortunately has suffered from recurrent infections resulting in hospitalization on a number of occasions. Feeling better since starting IV therapy. In conversation, patient mentions having multiple falls at home due to feeling of lightheadedness/dizziness. Made primary service aware. WBC stablized today, h/h stable. Cr within normal limits. Repeat UC&S and BC pending Plan to continue IV cefepime and IVFs. KUB demonstrates bilateral, multiple, stable, nonobstructing stones. Consistent with CT imaging from August. Evaluation/ Management of these stones has been addressed by Dr. Coronel in the past, patient/family do not wish to pursue treatment at this time. We will continue to follow. Plan for outpatient cystoscopy, however this has proven to be very difficult to arrange due to multiple cancellations due to recurrent, symptomatic infections. No surgical intervention planned for this hospitalization at this time. Pt may benefit from Infectious Disease consultation as well. We will continue to follow with primary service, thank you for the consultation. History of Present Illness Reason for Consultation: recurrent UTIs Requesting Physician: Dr. Winkler Attending Physician: Sebas Winkler History of Present Illness 87yo F whom is very well known to our practice, established with Dr. Grant. 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 Unfortunately she has suffered with recurrent UTIs resulting in sepsis and many hospitalizations. Presented to ED with recurrent symptoms of dysuria, urgency and frequency at the recommendation of our office and Dr. Wilson whom she is also established with. Failed PO keflex suppression. 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 UC&S positive for enterobacter on 11/04 - limited PO options due to allergies and potential drug interactions. She was originally planned for inpatient cystoscopy this week to assess bladder wall integrity, i.e. if rectovesical fistula has recurred. Sitting in chair on side of bed at time of evaluation. No family members at bedside. States she feels better today than yesterday. Voiding spontaneously without difficulty, some dysuria, urgency/frequency but improved. Denies hematuria or straining to void. Denies abdominal or flank pain. Tolerating PO diet adequately. Allergies Allergy/AdvReac Type Severity Reaction Status Date / Time nitrofurantoin Allergy Severe HIVES Verified 09/26/18 14:12 scallops Allergy Severe THROAT Verified 09/26/18 14:12 SWELLS Cipro Allergy Intermediate HIVES Verified 06/03/18 16:34 ciprofloxacin Allergy Intermediate HIVES Verified 09/26/18 14:12 latex Allergy Intermediate RASH Verified 09/26/18 14:12 Quinolones Allergy Intermediate HIVES Verified 09/26/18 14:12 fluticasone Allergy Unknown ADVAIR-UNKN Verified 09/26/18 14:12 OWN salmeterol Allergy Unknown ADVAIR Verified 09/26/18 14:12 celecoxib AdvReac Intermediate barretts Verified 09/26/18 14:12 esophagus lactose AdvReac Intermediate GI UPSET Verified 09/26/18 14:12 morphine AdvReac Intermediate NAUSEA AND Verified 09/26/18 14:12 VOMITING Home Medications Home Medications Medication Instructions Recorded Confirmed Type ascorbic acid (vitamin C) 500 mg 500 mg PO QAM 07/07/18 11/07/18 History tablet aspirin 81 mg tablet,delayed 81 mg PO QAM 07/07/18 11/07/18 History release cholecalciferol (vitamin D3) 2,000 2,000 units PO QAM 07/07/18 11/07/18 History unit capsule fexofenadine 60 mg tablet 60 mg PO DAILY PRN tab 07/07/18 11/07/18 History furosemide 20 mg tablet 20 mg PO DAILY PRN 07/07/18 11/07/18 History hydroxychloroquine 200 mg tablet 300 mg PO QAM tab 07/07/18 11/07/18 History levothyroxine 88 mcg tablet 88 mcg PO QAM 07/07/18 11/07/18 History nitroglycerin 0.4 mg sublingual 0.4 mg SL Q5M PRN #1 tab 07/07/18 11/07/18 Rx tablet clopidogrel [Plavix] 75 mg PO QAM 08/10/18 11/07/18 History diclofenac sodium [Voltaren] 4 gm TOP QID PRN MDD 16G 08/10/18 11/07/18 History duloxetine [Cymbalta] 60 mg PO QAM 08/10/18 11/07/18 History fluticasone [Flonase Allergy 2 spray INTRANASAL DAILY PRN 08/10/18 11/07/18 History Relief] lidocaine 1 applic TOPICAL QID PRN 08/10/18 11/07/18 History ondansetron HCl [Zofran] 8 mg PO Q6 PRN 08/10/18 11/07/18 History potassium chloride 20 meq PO BID 08/10/18 11/07/18 History cyanocobalamin (vitamin B-12) 1,000 mcg PO QAM 08/31/18 11/07/18 History [Vitamin B-12] oxycodone 10 mg PO BID 08/31/18 11/07/18 History quetiapine [Seroquel XR] 150 mg PO HS 08/31/18 11/07/18 History vit A,C and V-zaqgns-klvyrqez 1 tab PO QAM 08/31/18 11/07/18 History [Ocuvite with Lutein] cephalexin 500 mg PO BID 09/26/18 11/07/18 History gabapentin 300 mg PO TID 09/26/18 11/07/18 History polyethylene glycol 3350 [Miralax] 17 gm PO QAM 09/26/18 11/07/18 History vitamin B complex 1 tab PO QAM 09/26/18 11/07/18 History dexlansoprazole [Dexilant] 60 mg PO BID 11/07/18 11/07/18 History duloxetine 30 mg PO QAM 11/07/18 11/07/18 History midodrine 2.5 mg PO TID@0800,1200,1700 11/07/18 11/07/18 History midodrine 5 mg PO TID@0800,1200,1700 11/07/18 11/07/18 History phenazopyridine [Azo Urinary Pain 97.5 mg PO TID PRN 11/07/18 11/07/18 History Relief] prazosin 1 mg PO HS 11/07/18 11/07/18 History prednisone 10 mg PO QAM 11/07/18 11/07/18 History Patient History Medical History Rheumatoid arthritis Chronic back pain (Chronic) Arthritis (Chronic) Acute gastritis (Acute 03/23/12) Cholecystectomy (Resolved 03/10/13) Depression (Chronic 03/10/13) Impacted cerumen (Chronic 03/10/13) Osteoarthritis (Chronic 03/10/13) Pituitary adenoma (Chronic 03/10/13) 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) Altered mental status Ambulatory dysfunction Chronic anemia (Acute) Complicated UTI (urinary tract infection) Dysuria FUO (fever of unknown origin) Failure of outpatient treatment Fall from ground level Generalized weakness Infected abrasion of great toe of left foot Infected abrasion of great toe of right foot Major depressive disorder, recurrent episode with anxious distress SIRS (systemic inflammatory response syndrome) Sepsis Slurred speech Symptoms involving urinary system (Acute) UTI (urinary tract infection) Urinary tract infection Viral syndrome Colostomy present Diabetes mellitus Diverticula of colon Falls frequently History of colitis Lactose intolerance Low blood pressure TIA (transient ischemic attack) Surgical History History of hip replacement (Chronic) Hx of cholecystectomy (Chronic) H/O: hysterectomy (Chronic) History of surgical removal of pituitary gland History of surgical removal of pituitary gland Family History Other Cancer Diabetes Gallbladder disease HTN (hypertension) Heart disease Seizure Social History marital status: Current Living Situation: Alone Current Living Situation Comment: With N Other Information That Helps Us Care for You: No Feels Safe at Home: Yes Safety Concerns: Feels Safe At This Time Smoking Status: Never smoker Do You Dip or Chew Tobacco: No Second Hand Exposure: No Tobacco Cessation Education Requested by Patient: No Hx Alcohol Use: No Hx Substance Use: No Beliefs That Will Affect Care: None Communication Ability: Effective Review of Systems Constitutional: + fatigue; no fever and no chills Eyes: no problem reported Ear, Nose, Mouth, Throat: no ear trauma Respiratory: no cough and no dyspnea Cardiovascular: no chest pain Gastrointestinal: no abdominal pain Genitourinary (Female): + dysuria and + urinary urgency Musculoskeletal: no back pain Integumentary: no rash Neurologic: no numbness Psychiatric: no hopelessness Endocrine: no polydipsia Physical Exam 2 Vital Signs (Past 24 Hours): Last Vital Signs Temp 36.6 C 11/09/18 07:06 Pulse 108 H 11/09/18 12:06 Resp 18 11/09/18 07:06 BP 123/69 11/09/18 12:06 Pulse Ox 98 11/09/18 07:06 Constitutional: well developed; no acute distress Eyes: no nystagmus ENMT: Ears: + hearing impairment Neck: trachea midline Respiratory: no respiratory distress and does not use accessory muscles O2 supplementation by NC Cardiovascular: Vessels: no JVD Gastrointestinal (Abdomen): Inspection/Auscultation: abdomen not distended and no abdominal edema Musculoskeletal: Head/Neck/Chest: normocephalic Skin: no rashes, warm and dry (in visible areas) Neurologic: awake; not confused and not obtunded Psychiatric: Eye Contact: good eye contact Affect: no anxious affect Genitourinary: bladder nondistended
--- NOTE | 2018-11-09 15:24 | Hospitalist Progress Note ---
Date of Service November 09, 2018 Assessment & Plan (1) UTI (urinary tract infection): - Presented with dysuria after failing outpatient treatment (Keflex PO) - UC 11/04 + Enterobacter cloacae; repeat UC +gram neg bacilli, BC negative to date. - Leukocytosis on admission resolved. - Continue Cefepime IV for empiric coverage. - Consulted urology, appreciate input. (2) Stage III chronic kidney disease: - Renally dose all meds. (3) Nephrolithiasis: - KUB showed bilateral nephrolithiasis. - Has been addressed by Dr. Coronel, pt. does not want to pursue treatment. (4) SLE (systemic lupus erythematosus): - Continue Hydrochloroquine and Prednisone as prescribed. (5) Rheumatoid arthritis: - Continue Hydrochloroquine and Prednisone as prescribed. - Will need to start stress dose steroids if pt is decompensating. - Oxycodone BID scheduled for pain; Tylenol prn. (6) Chronic diastolic heart failure: - TTE in 2010 showed grade I diastolic dysfunction, EF 60-65%. - Caution with continuous IV fluids. (7) Peripheral artery disease: - Continue Plavix & Aspirin as prescribed. (8) Hypothyroid: - Continue Synthroid 88 mcg daily as prescribed. (9) Chronic anemia: - Hemoglobin decreased to 8.6 today; baseline ~9.5-10.5. - May be partially dilutional related to IV fluids. - Iron panel results consistent with anemia of chronic disease. - Monitor CBC qAM. (10) Vasovagal syncope: - Continue Midodrine 5 mg TID as prescribed. (11) Neuropathy: - Continue Gabapentin and Cymbalta as prescribed. (12) Mood disorder: - Continue Seroquel 150 mg qhs as prescribed. (13) Chronic respiratory failure: - Requires 3L via NC at home chronically. - Continue O2 prn. (14) Recurrent falls: - Pt. admits to falling frequently at home. - PT/OT ordered. (15) DVT prophylaxis: - Start Lovenox; SCDs. Dispo: Med/surg; discharge pending UC sensitivities/abx plan. Consider ID consult. Supervising Physician Co-Signing Physician Notes Attending Attestation - Chart reviewed in detail, and care plan d/w GREGORY Goldstein. I agree w/ the amaro components of her documentation. Pt continues to remain stable on IV antibiotic therapy for her MDR enterobacter UTI. Repeat urine culture with gram negative itzel - likely to be enterobacter. Agree with PT/OT consultations. Cont current care plan. Sebas Winkler MD Subjective Pt. is stable overall. She has chronic back pain with radiation down legs and right knee pain. She takes Oxycodone 10 mg twice daily at home. She states pain has increased significantly over last few weeks. Denies suprapubic pain, flank pain or dysuria today. Has been urinating without issues. We discussed goals of care -- pt. would like to continue treatment but her goal is to stay out of the hospital in the future if possible. She has had frequent hospital admissions for multiple issues. Pt. also has been falling at home frequently -- will order PT/OT. Review of Systems All systems reviewed & are unremarkable except as noted in HPI & below Constitutional: + weakness; no fever and no chills Respiratory: no cough and no dyspnea Cardiovascular: no chest pain, no palpitations and no edema Gastrointestinal: no abdominal pain, no nausea and no constipation Genitourinary (Female): no dysuria, no difficulty urinating, no urinary frequency and no flank pain Musculoskeletal: + back pain and + joint pain Allergy / Immunological: no rash Physical Exam 2 Vital Signs (Past 24 Hours): Last Vital Signs Temp 36.7 C 11/09/18 14:27 Pulse 95 H 11/09/18 14:27 Resp 20 11/09/18 14:27 BP 115/64 11/09/18 14:27 Pulse Ox 97 11/09/18 14:27 Physical Exam: General: Resting comfortably in no apparent distress HEENT: NC/AT; PERRLA with EOMI; Guys conjunctiva, MMM. Neck: Supple and nontender Cardiac: RRR w/o murmurs, gallops or rubs Lungs: colostomy with good output; CTA bilaterally; No rhonchi, wheezing, or rales Abdomen: Bowel normoactive X 4; No tenderness to palpation noted. Extremities: Warm. No edema present Neuro: No focal weakness Skin: No rash Results & Data Laboratory Results 11/09/18 11/09/18 Range/Units 06:55 06:55 WBC 7.95 (4.8-10.8) K/uL RBC 2.89 L (4.2-5.4) M/uL Hgb 8.6 L (12.0-16.0) g/dL Hct 28.5 L (37-47) % MCV 98.6 (80-100) fL MCH 29.8 (25-34) pg MCHC 30.2 L (32-36) g/dL RDW Std Deviation 58.6 H (36.4-46.3) fL RDW Coeff of Omar 16.2 H (11.5-14.5) % Plt Count 202 (130-400) K/uL MPV 9.6 (7.4-10.4) fL Sodium 142 (136-145) mmol/L Potassium 4.0 (3.5-5.1) mmol/L Chloride 107 (98-107) mmol/L Carbon Dioxide 30 (21-32) mmol/L Anion Gap 4.0 (3-11) BUN 20 H (7-18) mg/dl Creatinine 1.11 (0.6-1.2) mg/dl Est Cr Clr Drug Dosing 34.5 ml/min Est GFR ( Amer) 52.4 Est GFR (Non-Af Amer) 45.2 BUN/Creatinine Ratio 17.6 (10-20) Glucose 90 (70-99) mg/dl Calcium 8.1 L (8.5-10.1) mg/dl Magnesium 2.4 (1.8-2.4) mg/dl Iron 28 L (35-150) mcg/dl TIBC 210 L (250-450) mcg/dl Transferrin 163 L (200-360) mg/dl Ferritin 115.8 (8-388) ng/ml
[2018-11-09] MEDS: ENOXAPARIN INJ 40 MG/0.4 ML SYR SQ SCH (16:17)
[2018-11-09] MEDS: CEFEPIME 2,000 MG in SYRINGE 7.5 ML IV SCH (18:00)
[2018-11-09] MEDS: PRAZOSIN HCL 1 MG CAP PO SCH (21:15)
[2018-11-09] MEDS: QUETIAPINE FUMARATE 100 MG TABLET PO SCH (21:15)
[2018-11-10] MEDS: LEVOTHYROXINE SODIUM 88 MCG TABLET PO SCH (05:32)
[2018-11-10 06:24] LABS: Hematocrit (blood only) 27.8 % (37-47); Hemoglobin 8.5 g/dL (12.0-16.0); Mean Corpuscular Hgb Conc 30.6 g/dL (32-36); Mean Corpuscular Volume 97.2 fL (80-100); Mean Platelet Volume 9.6 fL (7.4-10.4); Platelet Count 186 K/uL (130-400); RDW Coefficient of Variation 16.1 % (11.5-14.5); RDW Standard Deviation 56.6 fL (36.4-46.3); Red Blood Count 2.86 M/uL (4.2-5.4); White Blood Count 7.84 K/uL (4.8-10.8)
[2018-11-10 07:01] LABS: BUN Creatinine Ratio 15.4 (10-20); Calcium 8.2 mg/dl (8.5-10.1); Creatinine Clr Calc Pharmacy 33.9 ml/min; Est GFR (African American) 51.3; Est GFR (Non-African American) 44.3; Magnesium 2.2 mg/dl (1.8-2.4); Potassium 3.8 mmol/L (3.5-5.1)
[2018-11-10] MEDS: POLYETHYLENE (MIRALAX) 17 GM PACK PO SCH (08:03)
[2018-11-10] MEDS: OXYCODONE HCL IR 5 MG TAB (IMMEDIATE RELEASE) PO SCH ×2 (08:03→20:40)
[2018-11-10] MEDS: HYDROXYCHLOROQUINE SULFATE 200 MG TAB PO SCH (08:03)
[2018-11-10] MEDS: DULOXETINE HCL 60 MG CAP PO SCH (08:04)
[2018-11-10] MEDS: DULOXETINE HCL 30 MG CAP PO SCH (08:04)
[2018-11-10] MEDS: CYANOCOBALAMIN 500 MCG TABLET (VITAMIN B-12) PO SCH (08:04)
[2018-11-10] MEDS: CLOPIDOGREL BISULFATE 75 MG TAB PO SCH (08:04)
[2018-11-10] MEDS: GABAPENTIN 300 MG CAP PO SCH ×3 (08:04→20:41)
[2018-11-10] MEDS: ASCORBIC ACID 500 MG TAB PO SCH (08:05)
[2018-11-10] MEDS: PANTOprazole 40 MG TAB PO SCH ×2 (08:05→20:40)
[2018-11-10] MEDS: MIDODRINE HCL 2.5 MG TAB PO SCH ×3 (08:05→17:31)
[2018-11-10] MEDS: ASPIRIN 81 MG ECTAB PO SCH (08:05)
[2018-11-10] MEDS: POTASSIUM CHLORIDE PWD 20 MEQ PACK PO SCH ×2 (08:05→20:40)
[2018-11-10] MEDS: predniSONE 10 MG TABLET PO SCH (08:05)
[2018-11-10] MEDS: ACETAMINOPHEN 325 MG TAB PO PRN ×2 (09:08→15:13)
--- NOTE | 2018-11-10 10:43 | Infectious Disease Consult ---
Date of Consultation November 10, 2018 Assessment & Plan (1) UTI (urinary tract infection): Recurrent UTI with resistant Enterobacter. Will change to IV ertapenem as MICs for cefepime "borderline". May want to consider trial of rotational abx once acute infection treated. Will likely require ~ 5 days of ertapenem. Will follow. (2) Infection caused by Enterobacter cloacae: History of Present Illness Reason for Consultation: Frequent UTIs Attending Physician: Sebas Winkler History of Present Illness 87-year-old female well-known to the infectious disease service, with history of lupus and rheumatoid arthritis, chronic diastolic heart failure, urinary retention, who has had multiple significant urinary tract infections over the past several years. Was treated in early October for pseudomonal urinary tract infection. We presented later this month with weakness and dysuria, and was found to have a positive urine culture for Enterobacter and was given cephalexin. However symptoms worsen, patient became progressively worse, and was admitted to the hospital for further management. Started on IV cefepime. Repeat cultures are pending. ODALYS for Enterobacter for cefepime is 8. Denies any significant fever, chills, or flank pain. Allergies Allergy/AdvReac Type Severity Reaction Status Date / Time nitrofurantoin Allergy Severe HIVES Verified 09/26/18 14:12 scallops Allergy Severe THROAT Verified 09/26/18 14:12 SWELLS Cipro Allergy Intermediate HIVES Verified 06/03/18 16:34 ciprofloxacin Allergy Intermediate HIVES Verified 09/26/18 14:12 latex Allergy Intermediate RASH Verified 09/26/18 14:12 Quinolones Allergy Intermediate HIVES Verified 09/26/18 14:12 fluticasone Allergy Unknown ADVAIR-UNKN Verified 09/26/18 14:12 OWN salmeterol Allergy Unknown ADVAIR Verified 09/26/18 14:12 celecoxib AdvReac Intermediate barretts Verified 09/26/18 14:12 esophagus lactose AdvReac Intermediate GI UPSET Verified 09/26/18 14:12 morphine AdvReac Intermediate NAUSEA AND Verified 09/26/18 14:12 VOMITING Home Medications Home Medications Medication Instructions Recorded Confirmed Type ascorbic acid (vitamin C) 500 mg 500 mg PO QAM 07/07/18 11/07/18 History tablet aspirin 81 mg tablet,delayed 81 mg PO QAM 07/07/18 11/07/18 History release cholecalciferol (vitamin D3) 2,000 2,000 units PO QAM 07/07/18 11/07/18 History unit capsule fexofenadine 60 mg tablet 60 mg PO DAILY PRN tab 07/07/18 11/07/18 History furosemide 20 mg tablet 20 mg PO DAILY PRN 07/07/18 11/07/18 History hydroxychloroquine 200 mg tablet 300 mg PO QAM tab 07/07/18 11/07/18 History levothyroxine 88 mcg tablet 88 mcg PO QAM 07/07/18 11/07/18 History nitroglycerin 0.4 mg sublingual 0.4 mg SL Q5M PRN #1 tab 07/07/18 11/07/18 Rx tablet clopidogrel [Plavix] 75 mg PO QAM 08/10/18 11/07/18 History diclofenac sodium [Voltaren] 4 gm TOP QID PRN MDD 16G 08/10/18 11/07/18 History duloxetine [Cymbalta] 60 mg PO QAM 08/10/18 11/07/18 History fluticasone [Flonase Allergy 2 spray INTRANASAL DAILY PRN 08/10/18 11/07/18 History Relief] lidocaine 1 applic TOPICAL QID PRN 08/10/18 11/07/18 History ondansetron HCl [Zofran] 8 mg PO Q6 PRN 08/10/18 11/07/18 History potassium chloride 20 meq PO BID 08/10/18 11/07/18 History cyanocobalamin (vitamin B-12) 1,000 mcg PO QAM 08/31/18 11/07/18 History [Vitamin B-12] oxycodone 10 mg PO BID 08/31/18 11/07/18 History quetiapine [Seroquel XR] 150 mg PO HS 08/31/18 11/07/18 History vit A,C and C-lyxpom-hfycsoah 1 tab PO QAM 08/31/18 11/07/18 History [Ocuvite with Lutein] cephalexin 500 mg PO BID 09/26/18 11/07/18 History gabapentin 300 mg PO TID 09/26/18 11/07/18 History polyethylene glycol 3350 [Miralax] 17 gm PO QAM 09/26/18 11/07/18 History vitamin B complex 1 tab PO QAM 09/26/18 11/07/18 History dexlansoprazole [Dexilant] 60 mg PO BID 11/07/18 11/07/18 History duloxetine 30 mg PO QAM 11/07/18 11/07/18 History midodrine 5 mg PO TID@0800,1200,1700 11/07/18 11/07/18 History phenazopyridine [Azo Urinary Pain 97.5 mg PO TID PRN 11/07/18 11/07/18 History Relief] prazosin 1 mg PO HS 11/07/18 11/07/18 History prednisone 10 mg PO QAM 11/07/18 11/07/18 History bifidobacteri bifid.and longum 1 cap PO DAILY #30 cap 11/11/18 Rx [Florajen Bifidoblend] ertapenem 1 gm IV DAILY #3 ea 11/11/18 Rx Patient History Medical History Rheumatoid arthritis Chronic back pain (Chronic) Arthritis (Chronic) Acute gastritis (Acute 03/23/12) Cholecystectomy (Resolved 03/10/13) Depression (Chronic 03/10/13) Impacted cerumen (Chronic 03/10/13) Osteoarthritis (Chronic 03/10/13) Pituitary adenoma (Chronic 03/10/13) 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) Altered mental status Ambulatory dysfunction Chronic anemia (Acute) Complicated UTI (urinary tract infection) Dysuria FUO (fever of unknown origin) Failure of outpatient treatment Fall from ground level Generalized weakness Infected abrasion of great toe of left foot Infected abrasion of great toe of right foot Major depressive disorder, recurrent episode with anxious distress SIRS (systemic inflammatory response syndrome) Sepsis Slurred speech Symptoms involving urinary system (Acute) UTI (urinary tract infection) Urinary tract infection Viral syndrome Colostomy present Diabetes mellitus Diverticula of colon Falls frequently History of colitis Lactose intolerance Low blood pressure TIA (transient ischemic attack) Surgical History History of hip replacement (Chronic) Hx of cholecystectomy (Chronic) H/O: hysterectomy (Chronic) History of surgical removal of pituitary gland History of surgical removal of pituitary gland Family History Other Cancer Diabetes Gallbladder disease HTN (hypertension) Heart disease Seizure Social History marital status: Current Living Situation: Alone Current Living Situation Comment: With [facility] Other Information That Helps Us Care for You: No Feels Safe at Home: Yes Safety Concerns: Feels Safe At This Time Smoking Status: Never smoker Do You Dip or Chew Tobacco: No Second Hand Exposure: No Tobacco Cessation Education Requested by Patient: No Hx Alcohol Use: No Hx Substance Use: No Beliefs That Will Affect Care: None Preferred Language: Tajik Review of Systems All systems were reviewed and are negative except as per HPI Physical Exam 2 Vital Signs (Past 24 Hours): Last Vital Signs Temp 36.7 C 11/10/18 07:17 Pulse 97 H 11/10/18 07:17 Resp 16 11/10/18 07:17 BP 114/65 11/10/18 07:17 Pulse Ox 96 11/10/18 07:17 Constitutional: WD/WN, vitals as above comfortable; no acute distress Eyes: PERRL, conjunctivae normal, anicteric sclerae ENMT: external ear and nose normal, oropharynx normal Neck: trachea midline, no thyromegaly neck nontender Respiratory: normal respiratory effort, lungs clear to auscultation normal percussion; does not use accessory muscles Cardiovascular: Rate/Rhythm: regular rate and regular rhythm Heart Sounds: normal S1 and normal S2; no gallop, no murmur and no cardiac rub Vessels: normal peripheral pulses; no JVD Gastrointestinal (Abdomen): normal bowel sounds, soft, nontender, no hepatosplenomegaly Musculoskeletal: no cyanosis or clubbing, extremities motor strength 5/5 Spine: thoracic spine normal to inspection and lumbar spine normal to inspection ; no cervical spinal tenderness Skin: no rashes, warm and dry normal turgor; no lesions Neurologic: patellar DTR's 2+ bilat, sensation intact no focal motor deficits Psychiatric: A+Ox3, euthymic affect Orientation: cooperative Lymphatic: no cervical or axillary lymphadenopathy no inguinal lymphadenopathy Results & Data Laboratory Results Short CBC 11/10/18 Range/Units 05:48 WBC 7.84 (4.8-10.8) K/uL Hgb 8.5 L (12.0-16.0) g/dL Hct 27.8 L (37-47) % Plt Count 186 (130-400) K/uL BMP 11/10/18 05:48 Sodium 140 Potassium 3.8 Chloride 106 Carbon Dioxide 27 BUN 17 Creatinine 1.13 Glucose 135 H Calcium 8.2 L Diagnostic Findings Microbiology 11/07/18 20:05 Urine,Clean Catch Urine Culture - Final Enterobacter cloacae 11/08/18 08:13 Blood Blood Culture - Preliminary No growth to date. 11/08/18 08:07 Blood Blood Culture - Preliminary No growth to date. KUB CLINICAL HISTORY: Suprapubic pain. COMPARISON STUDY: CT of the abdomen and pelvis August 31, 2018. FINDINGS: Bilateral hip arthroplasties are incidentally noted. The bowel gas pattern is normal. There is a left lower quadrant ostomy. Pelvic calcifications reflect phleboliths. Bilateral renal calculi are noted. IMPRESSION: 1. No evidence for a bowel obstruction. 2. Bilateral nephrolithiasis. Electronically signed by: Anjel Encarnacion M.D.
[2018-11-10] MEDS: ERTAPENEM SODIUM 1,000 MG in SODIUM CHLORIDE 0.9% 50 ML IV SCH (11:54)
--- NOTE | 2018-11-10 14:44 | Hospitalist Progress Note ---
Date of Service November 10, 2018 Assessment & Plan (1) UTI (urinary tract infection): - Presented with dysuria after failing outpatient treatment (Keflex PO) - UC 11/04 + Enterobacter cloacae; repeat UC +Enterobacter cloacae, blood cultures negative - Consulted ID due to h/o recurrent UTIs; will convert to Ertapenem 1 gm IV q24hr (end date: 11/14/18) - Will need to arrange home nursing for IV abx. - Consulted urology, appreciate input. (2) Stage III chronic kidney disease: - Renally dose all meds. (3) Nephrolithiasis: - KUB showed bilateral nephrolithiasis. - Has been addressed by Dr. Coronel, pt. does not want to pursue treatment. (4) SLE (systemic lupus erythematosus): - Continue Hydrochloroquine and Prednisone as prescribed. (5) Rheumatoid arthritis: - Continue Hydrochloroquine and Prednisone as prescribed. - Oxycodone BID scheduled for pain; Tylenol prn. (6) Chronic diastolic heart failure: - TTE in 2010 showed grade I diastolic dysfunction, EF 60-65%. - Caution with continuous IV fluids. (7) Peripheral artery disease: - Continue Plavix & Aspirin as prescribed. (8) Hypothyroid: - Continue Synthroid 88 mcg daily as prescribed. (9) Chronic anemia: - Hemoglobin decreased to 8.5 today; baseline ~9.5-10.5. - Iron panel results consistent with anemia of chronic disease. - Monitor CBC qAM. (10) Vasovagal syncope: - Continue Midodrine 5 mg TID as prescribed. - Orthostatics negative. (11) Neuropathy: - Continue Gabapentin and Cymbalta as prescribed. (12) Mood disorder: - Continue Seroquel 150 mg qhs as prescribed. (13) Chronic respiratory failure: - Requires 3L via NC at home chronically. - Continue O2 prn. (14) Recurrent falls: - Pt. admits to falling frequently at home. - PT/OT evaluation pending. (15) DVT prophylaxis: - Lovenox; SCDs. Dispo: Med/surg; discharge pending arrangement of home nursing for IV abx. Supervising Physician Co-Signing Physician Notes Attending Attestation - Chart reviewed in detail, and care plan d/w GREGORY Goldstein. I agree w/ the amaro components of her documentation. Repeat urine cx with same pathogen as previous urine cx (MDR enterobacter). Blood cx's neg. ID consult appreciated; changing cefepime to ertapenem once daily to complete her course. Urology consultation also appreciated. Discharge planning. Sebas Winkler MD Subjective Pt. is doing well overall today. She has mild suprapubic pain, denies dysuria. Chronic back pain and knee pain is stable. Plan for discharge to home pending arrangement of home nursing - likely tomorrow. Review of Systems All systems reviewed & are unremarkable except as noted in HPI & below Constitutional: no fever and no chills Respiratory: no cough and no dyspnea Cardiovascular: no chest pain, no palpitations and no edema Gastrointestinal: no abdominal pain, no nausea, no constipation and no diarrhea/ loose stools Genitourinary (Female): no dysuria, no difficulty urinating and no hematuria Musculoskeletal: + back pain and + joint pain Allergy / Immunological: no rash Physical Exam 2 Vital Signs (Past 24 Hours): Last Vital Signs Temp 36.7 C 11/10/18 07:17 Pulse 103 H 11/10/18 11:51 Resp 16 11/10/18 07:17 BP 118/65 11/10/18 11:51 Pulse Ox 96 11/10/18 07:17 Physical Exam: General: Resting comfortably in no apparent distress HEENT: NC/AT; PERRLA with EOMI; [place] conjunctiva, MMM. Neck: Supple and nontender Cardiac: RRR w/o murmurs, gallops or rubs Lungs: colostomy with good output; CTA bilaterally; No rhonchi, wheezing, or rales Abdomen: Bowel normoactive X 4; No tenderness to palpation noted. Extremities: Warm. No edema present Neuro: No focal weakness Skin: No rash Results & Data Laboratory Results 11/10/18 11/10/18 Range/Units 05:48 05:48 WBC 7.84 (4.8-10.8) K/uL RBC 2.86 L (4.2-5.4) M/uL Hgb 8.5 L (12.0-16.0) g/dL Hct 27.8 L (37-47) % MCV 97.2 (80-100) fL MCH 29.7 (25-34) pg MCHC 30.6 L (32-36) g/dL RDW Std Deviation 56.6 H (36.4-46.3) fL RDW Coeff of Omar 16.1 H (11.5-14.5) % Plt Count 186 (130-400) K/uL MPV 9.6 (7.4-10.4) fL Sodium 140 (136-145) mmol/L Potassium 3.8 (3.5-5.1) mmol/L Chloride 106 (98-107) mmol/L Carbon Dioxide 27 (21-32) mmol/L Anion Gap 7.0 (3-11) BUN 17 (7-18) mg/dl Creatinine 1.13 (0.6-1.2) mg/dl Est Cr Clr Drug Dosing 33.9 ml/min Est GFR ( Amer) 51.3 Est GFR (Non-Af Amer) 44.3 BUN/Creatinine Ratio 15.4 (10-20) Glucose 135 H (70-99) mg/dl Calcium 8.2 L (8.5-10.1) mg/dl Magnesium 2.2 (1.8-2.4) mg/dl
[2018-11-10] MEDS: ENOXAPARIN INJ 40 MG/0.4 ML SYR SQ SCH (15:09)
--- NOTE | 2018-11-10 17:01 | Urology Progress Note ---
Date of Service November 10, 2018 Assessment & Plan (1) Infection caused by Enterobacter cloacae: VS stable, afebrile. UC&S reveals enterobacter with some resistance. Abx converted from cefepime to ertapenum per infectious disease. Appreciate input. Patient states she's doing well today, plans for discharge home with IV abx therapy to be arranged as outpatient. Daughter at bedside and agreeable. Remains concerned that recurrent fistula may be contributing to recurrent infections. Understands that this will be addressed as an outpatient by Dr. Coronel. Will arrange for outpatient f/u in 2-3 weeks by our office. No further intervention indicated at this time. Thank you for the consultation and allowing us to participate in the care of Ms. Neal. Please reconsult us with any additional questions or concerns. Subjective Patient sitting on side of bed with daughter at time of evaluation today. Offers no new complaints or issues from perspective. Feeling well, tolerating PO. Notes improvement in dysuria, denies feeling of incomplete emptying or hematuria. Review of Systems All systems reviewed & are unremarkable except as noted in HPI & below Physical Exam 2 Vital Signs (Past 24 Hours): Last Vital Signs Temp 36.6 C 11/10/18 15:00 Pulse 91 H 11/10/18 15:00 Resp 16 11/10/18 15:00 BP 117/71 11/10/18 15:00 Pulse Ox 97 11/10/18 15:00 Physical Exam: A&Ox3 RRR - supplemental O2 intact with NC abd soft, nontender. Ostomy intact. psych: good judgment, no hopelessness
[2018-11-10] MEDS: PRAZOSIN HCL 1 MG CAP PO SCH (20:40)
[2018-11-10] MEDS: QUETIAPINE FUMARATE 100 MG TABLET PO SCH (20:41)
[2018-11-11] MEDS: LEVOTHYROXINE SODIUM 88 MCG TABLET PO SCH (06:36)
[2018-11-11 06:45] LABS: Hematocrit (blood only) 29.3 % (37-47); Hemoglobin 8.7 g/dL (12.0-16.0); Mean Corpuscular Hgb Conc 29.7 g/dL (32-36); Mean Corpuscular Volume 97.3 fL (80-100); Mean Platelet Volume 9.5 fL (7.4-10.4); Platelet Count 212 K/uL (130-400); RDW Coefficient of Variation 16.2 % (11.5-14.5); RDW Standard Deviation 57.1 fL (36.4-46.3); Red Blood Count 3.01 M/uL (4.2-5.4); White Blood Count 8.01 K/uL (4.8-10.8)
[2018-11-11 07:22] LABS: BUN Creatinine Ratio 14.6 (10-20); Calcium 8.4 mg/dl (8.5-10.1); Creatinine Clr Calc Pharmacy 33.9 ml/min; Est GFR (African American) 51.3; Est GFR (Non-African American) 44.3; Magnesium 2.5 mg/dl (1.8-2.4); Potassium 4.2 mmol/L (3.5-5.1)
[2018-11-11] MEDS: HYDROXYCHLOROQUINE SULFATE 200 MG TAB PO SCH (08:01)
[2018-11-11] MEDS: GABAPENTIN 300 MG CAP PO SCH ×2 (08:01→13:52)
[2018-11-11] MEDS: OXYCODONE HCL IR 5 MG TAB (IMMEDIATE RELEASE) PO SCH (08:01)
[2018-11-11] MEDS: ASPIRIN 81 MG ECTAB PO SCH (08:01)
[2018-11-11] MEDS: PANTOprazole 40 MG TAB PO SCH (08:02)
[2018-11-11] MEDS: DULOXETINE HCL 30 MG CAP PO SCH (08:02)
[2018-11-11] MEDS: POTASSIUM CHLORIDE PWD 20 MEQ PACK PO SCH (08:02)
[2018-11-11] MEDS: MIDODRINE HCL 2.5 MG TAB PO SCH ×2 (08:02→11:32)
[2018-11-11] MEDS: CLOPIDOGREL BISULFATE 75 MG TAB PO SCH (08:02)
[2018-11-11] MEDS: predniSONE 10 MG TABLET PO SCH (08:02)
[2018-11-11] MEDS: ASCORBIC ACID 500 MG TAB PO SCH (08:02)
[2018-11-11] MEDS: CYANOCOBALAMIN 500 MCG TABLET (VITAMIN B-12) PO SCH (08:03)
[2018-11-11] MEDS: POLYETHYLENE (MIRALAX) 17 GM PACK PO SCH (08:03)
[2018-11-11] MEDS: DULOXETINE HCL 60 MG CAP PO SCH (08:03)
[2018-11-11] MEDS: ERTAPENEM SODIUM 1,000 MG in SODIUM CHLORIDE 0.9% 50 ML IV SCH (11:32)
--- NOTE | 2018-11-11 13:46 | Discharge Summary ---
Date of Service November 11, 2018 Admission HPI Per Admitting Provider 87 y/o F Hx SLE, PVD, neuropathy, hypothyroidism, anemia, recurrent UTIs with sepsis. The pt was treated for pansensitive Pseudomonas 10/13. She recently developed urinary tract symptoms again and culture results returned (+) for pansensitive enterobacter cloacae 11/04. She states that she has been taking Keflex for at least the past two weeks. Despite treatment with seemingly appropriate antibiotics, she has become progressively weak over the past day and describes burning with urination. The pt was due for a cystoscopy later in the week and discussed the above with her urologist. She has a history of resistant UTIs and a rectovesical fistula. She also has a tendency to develop sepsis and was therefore directed to attend the hospital for broad spectrum antibiotics pending repeat culture results. Admission Exam Per Admitting Provider General: AAO x 3, no distress ENT: No erythema or exudates, no thrush Eyes: DORIS, EOMI Head and neck: Normocephalic, atraumatic, No JVD, neck is supple. Chest/heart: Nontender, S1,2, RRR, no murmurs, no gallops Lungs: CTAB, no wheezing or crackles Abdomen: Nontender, nondistended, BS+ - there is no flank tenderness - a colostomy bag is present in the LLQ Neuro: AAO x 3, speech is clear, no unilateral weakness or loss of sensation, coordination intact Musculoskeletal: No joint inflammation, muscle tenderness, FROM Skin: No acute rashes or ulcers Extremities: No clubbing, cyanosis, edema Principal Diagnosis Urinary Tract Infection Discharge Exam General: Resting comfortably in no apparent distress HEENT: NC/AT; PERRLA with EOMI; [place] conjunctiva, MMM. Neck: Supple and nontender Cardiac: RRR w/o murmurs, gallops or rubs Lungs: colostomy with good output; CTA bilaterally Abdomen: Bowel normoactive X 4; Tenderness to deep palpation noted in suprapubic region. Extremities: Warm. No edema present Neuro: No focal weakness Skin: No rash Discharge Data Allergies Allergy/AdvReac Type Severity Reaction Status Date / Time nitrofurantoin Allergy Severe HIVES Verified 09/26/18 14:12 scallops Allergy Severe THROAT Verified 09/26/18 14:12 SWELLS Cipro Allergy Intermediate HIVES Verified 06/03/18 16:34 ciprofloxacin Allergy Intermediate HIVES Verified 09/26/18 14:12 latex Allergy Intermediate RASH Verified 09/26/18 14:12 Quinolones Allergy Intermediate HIVES Verified 09/26/18 14:12 fluticasone Allergy Unknown ADVAIR-UNKN Verified 09/26/18 14:12 OWN salmeterol Allergy Unknown ADVAIR Verified 09/26/18 14:12 celecoxib AdvReac Intermediate barretts Verified 09/26/18 14:12 esophagus lactose AdvReac Intermediate GI UPSET Verified 09/26/18 14:12 morphine AdvReac Intermediate NAUSEA AND Verified 09/26/18 14:12 VOMITING Consultations 11/07/18 18:51 ED Decision to Admit Stat 11/08/18 15:43 Consult Urology Routine 11/10/18 10:32 Consult Infectious Diseases Routine Procedures Performed KUB XR 11/07/18 Hospital Course (1) UTI (urinary tract infection): Pt. presented with symptoms 2/2 UTI. UC as outpatient was +Enterobacter on 11/04/18. Repeat UC at admission was positive for the same organism. Blood cultures were negative. Cefepime IV was started for empiric coverage. ID consulted due to h/o recurrent UTIs. They recommended converting to daily Ertapenem per sensitivities. Urology was consulted and recommended output follow up due to h/o colovesicular fistula. Home nursing was arranged for IV abx. Pt. will complete 5 day course of Ertapenem on 11/14/18. PIV was placed prior to discharge. (2) Stage III chronic kidney disease: Renally dosed all meds. (3) Nephrolithiasis: KUB showed bilateral nephrolithiasis. Has been addressed by Dr. Coronel, pt. does not want to pursue treatment. (4) SLE (systemic lupus erythematosus): Continued Hydrochloroquine and Prednisone as prescribed. (5) Rheumatoid arthritis: Continued Hydrochloroquine and Prednisone as prescribed. Oxycodone BID scheduled for pain; Tylenol prn. (6) Chronic diastolic heart failure: TTE in 2010 showed grade I diastolic dysfunction, EF 60-65%. (7) Peripheral artery disease: Continued Plavix & Aspirin as prescribed. (8) Hypothyroid: Continued Synthroid 88 mcg daily as prescribed. (9) Chronic anemia: Hemoglobin decreased to ~8.5 during this admission; baseline ~9.5-10.5. Iron panel was consistent with anemia of chronic disease. CBC was monitored daily and remained low but stable. She will need follow up CBC monitoring in future. (10) Vasovagal syncope: Continued Midodrine 5 mg TID as prescribed. Orthostatics were negative during this admission. (11) Neuropathy: Continued Gabapentin and Cymbalta as prescribed. (12) Mood disorder: Continued Seroquel 150 mg qhs as prescribed. (13) Chronic respiratory failure: Requires 3L via NC at home chronically. Continued O2 prn. (14) Recurrent falls: Pt. admits to falling frequently at home. PT/OT did not recommend ongoing therapy. (15) DVT prophylaxis: Lovenox and SCDs. Pt. was stable for discharge to home on 11/11/18. Total Time Total Time Spent Total Time Spent (In Minutes): >30 minutes Total Time Includes: Examination of the Patient, Discharge Planning, Medication Reconciliation, Communication With Other Providers and Other Discharge Plan Discharge Items Patient Disposition: Home - Home Health Services Reason For Visit: UTI, WEAKNESS Discharge Diagnosis: Urinary Tract Infection Condition: Good Discharge Goals: Improve disease control, Improve function, Increase independence and Therapeutic intervention Activity: As commented below Exercise/Sports: Gradually increase as tolerated Driving/Machine Use: No limitations Non-emergency contact: Primary Care Provider and Urologist Call non-emergency contact if: you have any medication questions, your symptoms worsen, your pain is worsening and you have a fever Follow-up/Referrals: Jose Wilson MD [Family Provider] - 11/18/18 10:15 am (Please, follow up at [facility]'s Infectious Disease Specialist, Dr. Wilson, on WednesdayNovember 18 at 10:15 am. *This office is located in [address] of [facility] - big building next to this [facility]. If you need to change this appointment, call the office at [phone].) Nidhi Gardner MD [Primary Care Provider] - 11/17/18 2:00 pm (Please follow up at Dr. Gardner's office with Dr. Yunier Buenrostro on November 17 at 2:00 pm. *If you need to change this appointment, call the office at [phone].) Basil Coronel II, DO [Physician] - 11/25/18 9:50 am (Please, follow up at [facility] Urology Office with Dr. Basil Coronel on WednesdayNovember 25 at 9:50 am. *This office is located at [address] [facility] in [place]. If you have any questions, call the office at [phone].) Diet: Regular Addtl Provider Instructions: 1. Urinary Tract Infection * Home nursing has been arranged for IV antibiotics via peripheral IV. * Please continue Ertapenem 1 gm IV daily for 3 days. Your first dose will be administered on 11/12/18. * Your final dose will be given on 11/14/2018. * Please follow up with Dr. Coronel from urology in 2-3 weeks. * Please resume Keflex 500 mg twice daily for prophylaxis after completing IV antibiotics. * Please take a probiotic daily. This will help to prevent infections while taking an antibiotic. Prescription for probiotic was sent to your pharmacy. You can also buy probiotics over the counter. 2. Please follow up with your primary care provider in 1-2 weeks. 3. Please call your PCP or go to the ER if you develop the following: * Chest pain or SOB. * Severe watery diarrhea. * Worsening abdominal pain, burning/pain with urination, blood in urine. Prescriptions: New ertapenem 1 gram recon soln 1 gm IV DAILY Qty: 3 RF: 0 bifidobacteri bifid.and longum [Florajen Bifidoblend] 460 mg (9-1 bill.cell) capsule 1 cap PO DAILY Qty: 30 RF: 0 Continue fexofenadine [Cora Allergy] 60 mg tablet 60 mg PO DAILY PRN (Reason: Congestion) RF: 0 aspirin 81 mg tablet,delayed release (DR/EC) 81 mg PO QAM RF: 0 furosemide 20 mg tablet 20 mg PO DAILY PRN (Reason: weight gain) RF: 0 cholecalciferol (vitamin D3) 2,000 unit capsule 2,000 units PO QAM RF: 0 levothyroxine [Synthroid] 88 mcg tablet 88 mcg PO QAM RF: 0 ascorbic acid (vitamin C) 500 mg tablet 500 mg PO QAM RF: 0 hydroxychloroquine 200 mg tablet 300 mg PO QAM RF: 0 ondansetron HCl [Zofran] 8 mg Tablet 8 mg PO Q6 PRN (Reason: Nausea) RF: 0 clopidogrel [Plavix] 75 mg Tablet 75 mg PO QAM RF: 0 potassium chloride 20 mEq Packet 20 meq PO BID RF: 0 lidocaine 5 % Gel 1 applic Topical QID PRN (Reason: Back Pain) RF: 0 diclofenac sodium [Voltaren] 1 % gel 4 gm TOP QID MDD 16G PRN (Reason: Pain) RF: 0 duloxetine [Cymbalta] 60 mg Capsule,Delayed Release(Dr/Ec) 60 mg PO QAM RF: 0 fluticasone [Flonase Allergy Relief] 50 mcg/actuation [place],Suspension 2 spray INTRANASAL DAILY PRN (Reason: Congestion) RF: 0 cyanocobalamin (vitamin B-12) [Vitamin B-12] 1,000 mcg Tablet 1,000 mcg PO QAM RF: 0 oxycodone 5 mg Tablet 10 mg PO BID RF: 0 vit A,C and [id number] [Ocuvite with Lutein] 1,000 unit-200 mg-60 unit- 2 mg Tablet 1 tab PO QAM RF: 0 quetiapine [Seroquel XR] 150 mg Tablet Extended Release 24 Hr 150 mg PO HS RF: 0 cephalexin 500 mg capsule 500 mg PO BID RF: 0 gabapentin 300 mg capsule 300 mg PO TID RF: 0 vitamin B complex Tablet 1 tab PO QAM RF: 0 polyethylene glycol 3350 [Miralax] 17 gram powder in packet 17 gm PO QAM RF: 0 prazosin 1 mg capsule 1 mg PO HS RF: 0 duloxetine 30 mg capsule,delayed release(DR/EC) 30 mg PO QAM RF: 0 dexlansoprazole [Dexilant] 60 mg Capsule,Biphase Delayed Releas 60 mg PO BID RF: 0 midodrine 5 mg Tablet 5 mg PO TID@0800,1200,1700 RF: 0 prednisone 10 mg tablet 10 mg PO QAM RF: 0 phenazopyridine [Azo Urinary Pain Relief] 97.5 mg Tablet 97.5 mg PO TID PRN (Reason: .URINARY PAIN) RF: 0 Discontinued midodrine 2.5 mg tablet 2.5 mg PO TID@0800,1200,1700 RF: 0 Stand-Alone Forms: [facility] Discharge Orders: Discharge Order (Routine); Ordered 11/11/18 Ordered By: Denise Goldstein Admission Data Admit Date/Time: 11/09/18 09:47 Attending Provider: Sebas Winkler Admit Provider: Zach Hobbs Primary Care Provider: Nidhi Gardner Other Providers: Everardo Buenrostro ; Edson Genao ; Beverley Coronado Service: Medical Other Interventions: Discharge Summary Assessment (RN) Last Done: 11/11/18 14:30 Pending Studies at Discharge: Yes Studies:: Blood cultures 11/08/18: negative to date DC Date/Time DO NOT enter until pt leaves facility: 11/11/18 15:55 Supervising Physician Co-Signing Physician Notes Attending Discharge Note & Attestation - Pt seen/examined, chart reviewed, discharge care plan d/w GREGORY Goldstein. I agree w/ the amaro components of her discharge summary. 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 She remained hemodynamically stable throughout her stay. Labs remained acceptable while hospitalized. She initially received IV cefepime , and was transitioned to IV ertapenem prior to discharge. She will complete several more days of IV ertapenem after discharge. She will have urological follow-up post-discharge due to the colo-vesicular fistula. Keflex prophylaxis will be resumed following the completion of her IV ertapenem. Discharge exam - gen - NAD mouth - MMM heart - RRR, s1, s2 lungs - CTA b/l abd - soft, NT, ND, BS+ ext - no edema Sebas Winkler MD
--- NOTE | 2018-11-11 15:12 | Infectious Disease Progress Nt ---
Date of Service November 11, 2018 Assessment & Plan (1) UTI (urinary tract infection): Patient with recurrent urinary tract infection with Enterobacter. Patient to be treated with IV ertapenem, for discharge today to complete treatment as an outpatient. Discussed with hospitalist service. (2) Infection caused by Enterobacter cloacae: Subjective Patient seen in follow-up for Enterobacter urinary tract infection. Feeling much better today. Dysuria is essentially gone. No fever. Tolerating ertapenem without apparent difficulty. Review of Systems All systems reviewed & are unremarkable except as noted in HPI & below Physical Exam 2 Vital Signs (Past 24 Hours): Last Vital Signs Temp 36.6 C 11/11/18 14:30 Pulse 93 H 11/11/18 14:30 Resp 20 11/11/18 14:30 BP 123/69 11/11/18 14:30 Pulse Ox 99 11/11/18 14:30 Constitutional: WD/WN, vitals as above comfortable; no acute distress Eyes: PERRL, conjunctivae normal, anicteric sclerae ENMT: external ear and nose normal, oropharynx normal Neck: trachea midline, no thyromegaly neck nontender Respiratory: normal respiratory effort, lungs clear to auscultation normal percussion; does not use accessory muscles Cardiovascular: Rate/Rhythm: regular rate and regular rhythm Heart Sounds: normal S1 and normal S2; no gallop, no murmur and no cardiac rub Vessels: normal peripheral pulses; no JVD Gastrointestinal (Abdomen): normal bowel sounds, soft, nontender, no hepatosplenomegaly Musculoskeletal: no cyanosis or clubbing, extremities motor strength 5/5 Spine: thoracic spine normal to inspection and lumbar spine normal to inspection ; no cervical spinal tenderness Skin: no rashes, warm and dry normal turgor; no lesions Neurologic: patellar DTR's 2+ bilat, sensation intact no focal motor deficits Psychiatric: A+Ox3, euthymic affect Orientation: cooperative Lymphatic: no cervical or axillary lymphadenopathy no inguinal lymphadenopathy Results & Data Laboratory Results Short CBC 11/11/18 Range/Units 06:30 WBC 8.01 (4.8-10.8) K/uL Hgb 8.7 L (12.0-16.0) g/dL Hct 29.3 L (37-47) % Plt Count 212 (130-400) K/uL [facility] 11/11/18 06:30 Sodium 142 Potassium 4.2 Chloride 108 H Carbon Dioxide 29 BUN 17 Creatinine 1.13 Glucose 96 Calcium 8.4 L Diagnostic Findings Microbiology 11/07/18 20:05 Urine,Clean Catch Urine Culture - Final Enterobacter cloacae 11/08/18 08:13 Blood Blood Culture - Preliminary No growth to date. 11/08/18 08:07 Blood Blood Culture - Preliminary No growth to date.
== END 2018-11-11 15:55 | disposition home health service (06) | DRG 690 ==
LOC: 4E 16:56 → ED 16:56 → SUATTDRO 20:31 → 4E 21:30
DX: N18.3 Chronic kidney disease, stage 3 (moderate); M06.9 Rheumatoid arthritis, unspecified; E11.51 Type 2 diabetes mellitus with diabetic peripheral angiopathy without gangrene; Z91.040 Latex allergy status; Z86.73 Personal history of transient ischemic attack (TIA), and cerebral infarction without residual deficits; N39.0 Urinary tract infection, site not specified; Z79.82 Long term (current) use of aspirin; Z87.440 Personal history of urinary (tract) infections; D64.9 Anemia, unspecified; N20.0 Calculus of kidney; M32.9 Systemic lupus erythematosus, unspecified; E03.9 Hypothyroidism, unspecified; B96.89 Other specified bacterial agents as the cause of diseases classified elsewhere; I50.32 Chronic diastolic (congestive) heart failure; Z99.81 Dependence on supplemental oxygen; E11.40 Type 2 diabetes mellitus with diabetic neuropathy, unspecified; F39 Unspecified mood [affective] disorder; Z88.5 Allergy status to narcotic agent; J96.10 Chronic respiratory failure, unspecified whether with hypoxia or hypercapnia

== ENCOUNTER 2018-11-21 17:16 | Inpatient (IN) ==
[2018-11-21 18:58] LABS: Basophils # (auto) 0.06 K/uL (0-0.2); Basophils % (auto) 0.4 %; Eosinophils # (auto) 0.13 K/uL (0-0.5); Eosinophils % (auto) 0.8 %; Hematocrit (blood only) 31.8 % (37-47); Hemoglobin 9.9 g/dL (12.0-16.0); Immature Granulocytes # (auto) 0.15 K/uL (0.00-0.02); Immature Granulocytes % (auto) 0.9 %; Lymphocytes # (auto) 2.24 K/uL (1.2-3.4); Lymphocytes % (auto) 13.7 %; Mean Corpuscular Hgb Conc 31.1 g/dL (32-36); Mean Corpuscular Volume 94.9 fL (80-100); Mean Platelet Volume 9.6 fL (7.4-10.4); Monocytes # (auto) 1.34 K/uL (0.11-0.59); Monocytes % (auto) 8.2 %; Platelet Count 323 K/uL (130-400); RDW Coefficient of Variation 15.4 % (11.5-14.5); RDW Standard Deviation 53.1 fL (36.4-46.3); Red Blood Count 3.35 M/uL (4.2-5.4); White Blood Count 16.32 K/uL (4.8-10.8)
[2018-11-21] MEDS ORDERED: ERTAPENEM SODIUM 1,000 MG in SYRINGE 0 ML IV STA (19:03)
[2018-11-21 19:16] LABS: Alanine Aminotransferase 23 U/L (12-78); Albumin Level 3.1 gm/dl (3.4-5.0); Aspartate Aminotransferase 16 U/L (15-37); BUN Creatinine Ratio 15.7 (10-20); Blood Urea Nitrogen 20 mg/dl (7-18); Carbon Dioxide 28 mmol/L (21-32); Chloride 102 mmol/L (98-107); Est GFR (African American) 44.6; Est GFR (Non-African American) 38.5; Glucose 99 mg/dl (70-99); Magnesium 2.3 mg/dl (1.8-2.4); Potassium 4.3 mmol/L (3.5-5.1); Sodium 139 mmol/L (136-145)
[2018-11-21 19:29] LABS: Albumin Globulin Ratio 0.8 (0.9-2); Alkaline Phosphatase 84 U/L (45-117); Bilirubin,Total 0.2 mg/dl (0.2-1); Globulin 3.9 gm/dl (2.5-4.0); Troponin I < 0.015 ng/ml (0-0.045)
[2018-11-21 19:35] LABS: Appearance Urine Clear (Clear); Bacteria Urine Automated 1+ (Negative); Bilirubin Urine Negative (Negative); Blood Urine Negative (Negative); Cast Urine Automated 0 /lpf (0-5); Color Urine Yellow; Epithelial Cell Urine Auto >30 /lpf (0-5); Glucose Urine UA Negative (Negative); Ketones Urine Negative (Negative); Leukocyte Esterase Urine 1+ (Negative); Nitrite Urine Negative (Negative); Protein Urine Negative (Negative); RBC Urine Automated 0-4 /hpf (0-4); Specific Gravity Urine 1.017 (1.000-1.030); Urobilinogen Urine Negative (Negative); pH Urine 6.5 (4.5-7.5)
[2018-11-21] MEDS ORDERED: SODIUM CHLORIDE 0.9% 1000ML 1,000 ML IV SCH (20:00)
--- NOTE | 2018-11-21 20:07 | History & Physical Report ---
Date of Service November 21, 2018 Assessment & Plan (1) Diverticulitis: Pt is an 87 yo F who presents with vague symptoms of weakness, lethargy x 5 days with reported lower abdominal cramping especially with urination x 3 days. Patient with extensive PMH as listed in this document, but was recently admitted with recurrent UTIs. On CT abdomen imaging, she was noted to have mild diverticulitis. Diverticulitis -Discussed with pharmacy: ertapenam most recently used and was restarted for her vague urinary symptoms in ED. Due to her MDR and numerous allergies, will continue with ertapenam to treat diverticulitis. Recurrent UTI -Urine dirty on admission -Urine cx pending -Restarted ertapenam as above CKD III -Current Cr 1.27 -NS at 80 -Renally dose meds -Continue to monitor Nephrolithiasis -Noted on imaging, known diagnosis, pt declines further treatment SLE/RA -patient on plaquenil and daily prednisone -Oxy BID and tylenol prn for pain CDHF -Last TTE 2010 with EF 60-65%, grade I Diastolic dysfx PAD -continue plavix, asa Hypothyroid -synthroid as prescribed Chronic anemia -Pt baseline of Hb 8-10, currently 9.9 -Previously investigated and found to be ACD -Continue to monitor H/O orthostasis, vasovagal syncope -Midodrine 5mg TID continued Neuropathy -Cont gabapentin and cymbalta MDD -Seroquel 150mg hs Chronic Resp failure -Patient had required up to 3L previous admissions and at home -Satting well on RA currently, add on oxygen NC prn DVTP: SCDs at present. Patient previously on lovenox, has large hematoma on abdomen from visit on 11/11. Defer to day team discretion CODE: full Dispo: med/surg, inpatient management, obs as readmit. (2) Recurrent UTI: (3) Stage III chronic kidney disease: (4) Nephrolithiasis: (5) SLE (systemic lupus erythematosus): (6) Rheumatoid arthritis: (7) Chronic diastolic heart failure: (8) Peripheral artery disease: (9) Hypothyroid: (10) Chronic anemia: (11) Orthostatic hypotension: (12) Neuropathy: (13) Mood disorder: (14) Chronic respiratory failure: History of Present Illness Chief Complaint: fatige, lethargy, suprapubic cramping on urination Primary Care Provider: Nidhi Gardner MD Patient is an 87yo F well known to service, who presents with a 3 day h/o lethargy, anorexia, fever/chills, lower abdominal cramping on urination. Patient recently discharged on 11/11/18 with recurrent UTI (enterobacter, previously pseudomonas), was discharged with outpatient Tx with ertapenam x 3 days and prophylactic keflex. She states she has been feeling not herself since she finished the 3 days of IV ertapenam, but has gotten acutely worse in past 3 days. She last saw Dr. Wilson last week, and reports that Dr. Coronel was planning on performing a cystoscopy this Wednesday, 11/25. PMH significant for recurrent UTIs, SLE, PVD, hypothyroid, anemia (baseline hb 8-10), CKD III, sigmoidectomy with colostomy and others listed below. PMH: 1) Peripheral neuropathy 2) SLE and possibly RA 3) Recurrent UTIs - last with pansensitive Pseudomonas and Enterobacter [place] 10/2018 4) PVD with LE ulcers 5) Hypothyroidism 6) Anemia of chronic disease - baseline Hb 8-10 7) Hypothyroidism 8) C - diff 9) Depression 10) CKD III Surgical: 1) Hysterectomy 2) Hip replacement 3) Cholecystectomy 4) Sigmoidectomy w/colostomy Allergies Allergy/AdvReac Type Severity Reaction Status Date / Time nitrofurantoin Allergy Severe HIVES Verified 09/26/18 14:12 scallops Allergy Severe THROAT Verified 09/26/18 14:12 SWELLS Cipro Allergy Intermediate HIVES Verified 06/03/18 16:34 ciprofloxacin Allergy Intermediate HIVES Verified 09/26/18 14:12 latex Allergy Intermediate RASH Verified 09/26/18 14:12 Quinolones Allergy Intermediate HIVES Verified 09/26/18 14:12 fluticasone Allergy Unknown ADVAIR-UNKN Verified 09/26/18 14:12 OWN salmeterol Allergy Unknown ADVAIR Verified 09/26/18 14:12 celecoxib AdvReac Intermediate barretts Verified 09/26/18 14:12 esophagus lactose AdvReac Intermediate GI UPSET Verified 09/26/18 14:12 morphine AdvReac Intermediate NAUSEA AND Verified 09/26/18 14:12 VOMITING Home Medications Home Medications Medication Instructions Recorded Confirmed Type ascorbic acid (vitamin C) 500 mg 500 mg PO QAM 07/07/18 11/21/18 History tablet aspirin 81 mg tablet,delayed 81 mg PO QAM 07/07/18 11/21/18 History release cholecalciferol (vitamin D3) 2,000 2,000 units PO QAM 07/07/18 11/21/18 History unit capsule fexofenadine 60 mg tablet 60 mg PO DAILY PRN tab 07/07/18 11/21/18 History furosemide 20 mg tablet 20 mg PO DAILY PRN 07/07/18 11/21/18 History hydroxychloroquine 200 mg tablet 300 mg PO QAM tab 07/07/18 11/21/18 History levothyroxine 88 mcg tablet 88 mcg PO QAM 07/07/18 11/21/18 History nitroglycerin 0.4 mg sublingual 0.4 mg SL Q5M PRN #1 tab 07/07/18 11/21/18 Rx tablet clopidogrel [Plavix] 75 mg PO QAM 08/10/18 11/21/18 History diclofenac sodium [Voltaren] 4 gm TOP QID PRN MDD 16G 08/10/18 11/21/18 History duloxetine [Cymbalta] 60 mg PO QAM 08/10/18 11/21/18 History fluticasone [Flonase Allergy 2 spray INTRANASAL DAILY PRN 08/10/18 11/21/18 History Relief] lidocaine 1 applic TOPICAL QID PRN 08/10/18 11/21/18 History ondansetron HCl [Zofran] 8 mg PO Q6 PRN 08/10/18 11/21/18 History potassium chloride 20 meq PO BID 08/10/18 11/21/18 History cyanocobalamin (vitamin B-12) 1,000 mcg PO QAM 08/31/18 11/21/18 History [Vitamin B-12] oxycodone 10 mg PO BID 08/31/18 11/21/18 History quetiapine [Seroquel XR] 150 mg PO HS 08/31/18 11/21/18 History vit A,C and I-bhjcbp-artimzls 1 tab PO QAM 08/31/18 11/21/18 History [Ocuvite with Lutein] gabapentin 300 mg PO TID 09/26/18 11/21/18 History polyethylene glycol 3350 [Miralax] 17 gm PO QAM 09/26/18 11/21/18 History vitamin B complex 1 tab PO QAM 09/26/18 11/21/18 History dexlansoprazole [Dexilant] 60 mg PO BID 11/07/18 11/21/18 History midodrine 5 mg PO TID@0800,1200,1700 11/07/18 11/21/18 History phenazopyridine [Azo Urinary Pain 97.5 mg PO TID PRN 11/07/18 11/21/18 History Relief] prazosin 1 mg PO HS PRN 11/07/18 11/21/18 History prednisone 10 mg PO QAM 11/07/18 11/21/18 History bifidobacteri bifid.and longum 1 cap PO DAILY 11/21/18 11/21/18 History [Florajen Bifidoblend] cephalexin 500 mg PO BID 11/21/18 11/21/18 History duloxetine 30 mg PO DAILY 11/21/18 11/21/18 History prednisone 2.5 mg PO DAILY 11/21/18 11/21/18 History Past Med/Surg History Medical History Rheumatoid arthritis Chronic back pain (Chronic) Depression (Chronic 03/10/13) Osteoarthritis (Chronic 03/10/13) Chronic anemia (Acute) Major depressive disorder, recurrent episode with anxious distress Acute gastritis (03/23/12) Cholecystectomy (03/10/13) Colostomy present Diabetes mellitus Diverticula of colon Falls frequently History of colitis Infected abrasion of great toe of left foot Infected abrasion of great toe of right foot Lactose intolerance Low blood pressure Pituitary adenoma (03/10/13) Slurred speech TIA (transient ischemic attack) Vasovagal syncope (03/10/13) Surgical History History of hip replacement (Chronic) Hx of cholecystectomy (Chronic) H/O: hysterectomy (Chronic) History of surgical removal of pituitary gland History of surgical removal of pituitary gland Family History Other Cancer Diabetes Gallbladder disease HTN (hypertension) Heart disease Seizure Social History marital status: Current Living Situation: Alone Current Living Situation Comment: With HHN Other Information That Helps Us Care for You: No Feels Safe at Home: Yes Safety Concerns: Feels Safe At This Time Smoking Status: Never smoker Do You Dip or Chew Tobacco: No Hx Alcohol Use: No Hx Substance Use: No Beliefs That Will Affect Care: Sabianism Sabianism Beliefs: Congregational Preferred Language: Azeri Communication Ability: Effective Line Palletizer Required: No Review of Systems All systems reviewed & are unremarkable except as noted in HPI & below Constitutional: + fever, + chills, + fatigue, + malaise, + weakness and + anorexia Respiratory: no dyspnea Cardiovascular: no chest pain, no palpitations, no syncope and no edema Gastrointestinal: + abdominal pain and + vomiting Genitourinary (Female): + dysuria, + flank pain and + pelvic pain Integumentary: + unusual bruising (hematoma on stomach from previous lovenox injection); no lesions Physical Exam 2 Vital Signs (Past 24 Hours): Last Vital Signs Temp 36.8 C 11/21/18 17:19 Pulse 97 H 11/21/18 18:44 Resp 20 11/21/18 18:44 BP 121/64 11/21/18 17:19 Pulse Ox 97 11/21/18 18:44 Constitutional: WD/WN, vitals as above not ill appearing Eyes: PERRL, conjunctivae normal, anicteric sclerae ENMT: external ear and nose normal, oropharynx normal Neck: normal visual inspection Respiratory: normal respiratory effort, lungs clear to auscultation Cardiovascular: RRR, no murmur, no edema Gastrointestinal (Abdomen): Percussion/Palpation: + abdomen tender (RLQ and LLQ, suprapubic) Musculoskeletal: no cyanosis or clubbing, extremities motor strength 5/5 Skin: no rashes, warm and dry Neurologic: PERRL, EOMI, accommodation nl, no face palsy, no dysarthria Psychiatric: A+Ox3, euthymic affect Results & Data Laboratory Results 11/21/18 11/21/18 11/21/18 Range/Units 19:42 18:44 18:41 WBC (4.8-10.8) K/uL RBC (4.2-5.4) M/uL Hgb (12.0-16.0) g/dL Hct (37-47) % MCV (80-100) fL MCH (25-34) pg MCHC (32-36) g/dL RDW Std Deviation (36.4-46.3) fL RDW Coeff of Omar (11.5-14.5) % Plt Count (130-400) K/uL MPV (7.4-10.4) fL Immature Gran % (Auto) % Neut % (Auto) % Lymph % (Auto) % [place] % (Auto) % Eos % (Auto) % Baso % (Auto) % Immature Gran # (Auto) (0.00-0.02) K/uL Neut # (Auto) (1.4-6.5) K/uL Lymph # (Auto) (1.2-3.4) K/uL [place] # (Auto) (0.11-0.59) K/uL Eos # (Auto) (0-0.5) K/uL Baso # (Auto) (0-0.2) K/uL Sodium 139 (136-145) mmol/L Potassium 4.3 (3.5-5.1) mmol/L Chloride 102 (98-107) mmol/L Carbon Dioxide 28 (21-32) mmol/L Anion Gap 9.0 (3-11) BUN 20 H (7-18) mg/dl Creatinine 1.27 H (0.6-1.2) mg/dl Est Cr Clr Drug Dosing Not Reportable Est GFR ( Amer) 44.6 Est GFR (Non-Af Amer) 38.5 BUN/Creatinine Ratio 15.7 (10-20) Glucose 99 (70-99) mg/dl POC Lactic Acid Woodrow 2.41 H (0.90-1.70) mmol/L Calcium 9.0 (8.5-10.1) mg/dl Magnesium 2.3 (1.8-2.4) mg/dl Total Bilirubin 0.2 (0.2-1) mg/dl AST 16 (15-37) U/L ALT 23 (12-78) U/L Alkaline Phosphatase 84 (45-117) U/L Troponin I < 0.015 (0-0.045) ng/ml Total Protein 7.0 (6.4-8.2) gm/dl Albumin 3.1 L (3.4-5.0) gm/dl Globulin 3.9 (2.5-4.0) gm/dl Albumin/Globulin Ratio 0.8 L (0.9-2) Lipase 80 (73-393) U/L TSH 1.050 (0.300-4.500) uIu/ml Urine Color Yellow Urine Appearance Clear (Clear) Urine pH 6.5 (4.5-7.5) Ur Specific [place] 1.017 (1.000-1.030) Urine Protein Negative (Negative) Urine Glucose (UA) Negative (Negative) Urine Ketones Negative (Negative) Urine Blood Negative (Negative) Urine Nitrite Negative (Negative) Urine Bilirubin Negative (Negative) Urine Urobilinogen Negative (Negative) Ur Leukocyte Esterase 1+ H (Negative) Urine WBC (Auto) 5-10 H (0-5) /hpf Urine RBC (Auto) 0-4 (0-4) /hpf U Hyaline Cast (Auto) 0 (0-5) /lpf U Epithel Cells (Auto) >30 H (0-5) /lpf Urine Bacteria (Auto) 1+ H (Negative) 11/21/18 Range/Units 18:41 WBC 16.32 H (4.8-10.8) K/uL RBC 3.35 L (4.2-5.4) M/uL Hgb 9.9 L (12.0-16.0) g/dL Hct 31.8 L (37-47) % MCV 94.9 (80-100) fL MCH 29.6 (25-34) pg MCHC 31.1 L (32-36) g/dL RDW Std Deviation 53.1 H (36.4-46.3) fL RDW Coeff of Omar 15.4 H (11.5-14.5) % Plt Count 323 (130-400) K/uL MPV 9.6 (7.4-10.4) fL Immature Gran % (Auto) 0.9 % Neut % (Auto) 76.0 % Lymph % (Auto) 13.7 % [place] % (Auto) 8.2 % Eos % (Auto) 0.8 % Baso % (Auto) 0.4 % Immature Gran # (Auto) 0.15 H (0.00-0.02) K/uL Neut # (Auto) 12.40 H (1.4-6.5) K/uL Lymph # (Auto) 2.24 (1.2-3.4) K/uL [place] # (Auto) 1.34 H (0.11-0.59) K/uL Eos # (Auto) 0.13 (0-0.5) K/uL Baso # (Auto) 0.06 (0-0.2) K/uL Sodium (136-145) mmol/L Potassium (3.5-5.1) mmol/L Chloride (98-107) mmol/L Carbon Dioxide (21-32) mmol/L Anion Gap (3-11) BUN (7-18) mg/dl Creatinine (0.6-1.2) mg/dl Est Cr Clr Drug Dosing Est GFR ( Amer) Est GFR (Non-Af Amer) BUN/Creatinine Ratio (10-20) Glucose (70-99) mg/dl POC Lactic Acid [place] (0.90-1.70) mmol/L Calcium (8.5-10.1) mg/dl Magnesium (1.8-2.4) mg/dl Total Bilirubin (0.2-1) mg/dl AST (15-37) U/L ALT (12-78) U/L Alkaline Phosphatase (45-117) U/L Troponin I (0-0.045) ng/ml Total Protein (6.4-8.2) gm/dl Albumin (3.4-5.0) gm/dl Globulin (2.5-4.0) gm/dl Albumin/Globulin Ratio (0.9-2) Lipase (73-393) U/L TSH (0.300-4.500) uIu/ml Urine Color Urine Appearance (Clear) Urine pH (4.5-7.5) Ur Specific [place] (1.000-1.030) Urine Protein (Negative) Urine Glucose (UA) (Negative) Urine Ketones (Negative) Urine Blood (Negative) Urine Nitrite (Negative) Urine Bilirubin (Negative) Urine Urobilinogen (Negative) Ur Leukocyte Esterase (Negative) Urine WBC (Auto) (0-5) /hpf Urine RBC (Auto) (0-4) /hpf U Hyaline Cast (Auto) (0-5) /lpf U Epithel Cells (Auto) (0-5) /lpf Urine Bacteria (Auto) (Negative) Medications Administered Current Inpatient Medications Aspirin (Ecotrin Ectab) 81 mg PO QAM [facility] Stop: 12/22/18 08:59 Clopidogrel Bisulfate (Plavix) 75 mg PO QAM [facility] Stop: 12/22/18 08:59 Diclofenac Sodium (Voltaren 1% Top) 1 appln EXT QID PRN PRN Reason: Pain Stop: 12/21/18 20:25 Duloxetine HCl (Cymbalta) 30 mg PO QAM [facility] Stop: 12/22/18 08:59 Duloxetine HCl (Cymbalta) 60 mg PO QAM [facility] Stop: 12/22/18 08:59 Fexofenadine HCl (Cora) 60 mg PO DAILY PRN PRN Reason: Congestion Stop: 12/21/18 20:30 Fluticasone Propionate (Flonase) 2 sprays NA DAILY PRN PRN Reason: Congestion Stop: 12/21/18 20:25 Furosemide (Lasix) 20 mg PO DAILY PRN PRN Reason: weight gain Stop: 12/21/18 20:30 Gabapentin (Neurontin) 300 mg PO TID [facility] Stop: 12/21/18 20:59 Hydroxychloroquine Sulfate (Plaquenil) 300 mg PO QAM [facility] Stop: 12/22/18 08:59 Sodium Chloride (Nss 1000ml) 1,000 mls @ 250 mls/hr IV .Q4H [facility] Stop: 12/21/18 19:59 Last Admin: 11/21/18 20:01 Dose: 250 mls/hr Ioversol (Optiray 320 100ml) 119 ml IV ONCE PRN PRN Reason: Interaction Checking Stop: 11/25/18 20:25 Last Admin: 11/21/18 20:27 Dose: 119 ml Levothyroxine Sodium (Synthroid) 88 mcg PO DAILYBB [facility] Stop: 12/22/18 06:29 Midodrine (Proamatine) 5 mg PO TID@0800,1200,1700 [facility] Stop: 12/22/18 07:59 Non-Formulary Medication (Dexlansoprazole [Dexilant]) 60 mg PO BID [facility] Stop: 12/21/18 20:59 Non-Formulary Medication (Prazosin) 1 mg PO HS [facility] Stop: 12/21/18 20:59 Non-Formulary Medication (Lidocaine [Lidocaine]) 1 appln TOP QID PRN PRN Reason: Back Pain Oxycodone HCl (Roxicodone Immediate Rel) 10 mg PO BID [facility] Stop: 12/05/18 20:59 Potassium Chloride (Klor-Con Pwd) 20 meq PO BID [facility] Stop: 12/21/18 20:59 Prednisone (Prednisone) 10 mg PO QAM [facility] Stop: 12/22/18 08:59 Quetiapine Fumarate (Seroquel Xr) 150 mg PO HS [facility] Stop: 12/21/18 20:59 Code Status & VTE Plan Code Status full VTE Prophylaxis Plan VTE Prophylaxis will be ordered: Yes Reason for no VTE drug order: Treatment not tolerated (large hematoma; defer to day team discretion) Supervising Physician Co-Signing Physician Notes Patient seen and examined, chart reviewed, case discussed with Dr. Ahmadi and I agree with her assessment and plan as documented above. Briefly, patient is an 87yo female with history of recurrent UTIs, recently treated wt Ertapenem presenting with weakness, lethargy and lower abdominal discomfort x 3 days. Found to have mild diverticulitis On exam she is afebrile, hemodynamically stable, non-toxic in appearance Skin: no rash HEENT: NC/AT, PERRL, anicteric sclera, MMM, neck supple Heart: +S1/S2, regular, no m/r/g Lungs: CTA Abd: +BS, soft, colostomy in place with pink stoma, liquid output, no evidence of infection, tenderness with palpation of RLQ with some voluntary guarding, no rebound/peritoneal signs Ext: warm, no edema, 2+ pulses Labs: reviewed, significant for WBC=16.32 with left shift, BUN=20, Cr=1.27, UA with 1+bacteria, +LE, +WBC, >[address] with moderate diverticulosis with mild acute diverticulitis Assessment/Plan: Admit to medical floor Follow cultures Continue Ertapenem for treatment of diverticulitis ID consultaiton - assistance appreciated Remainder of plan as above Resident Activity Tracking Resident Involvement: Resident Care Provided Care Provided: Adult Hospital Medicine
[2018-11-21] MEDS ORDERED: DICLOFENAC SOD 1% GEL 100 GM TUBE EXT PRN (20:26)
[2018-11-21] MEDS ORDERED: FLUTICASONE PROPIONATE NA SPR 16 GM BTL PRN (20:26)
[2018-11-21] MEDS ORDERED: IOVERSOL 100ml IV PRN (20:26)
[2018-11-21] MEDS ORDERED: FEXOFENADINE 60 MG TAB PO PRN (20:31)
[2018-11-21] MEDS ORDERED: LIDOCAINE HCL 5% OINT 30 GM TUBE TOP PRN (20:31)
[2018-11-21] MEDS ORDERED: FUROSEMIDE 20 MG TAB PO PRN (20:31)
--- NOTE | 2018-11-21 20:57 | CT Scan Report ---
CT SCAN OF THE ABDOMEN AND PELVIS WITH IV CONTRAST CLINICAL HISTORY: Lower abdominal pain. COMPARISON STUDY: Prior abdominal CT scans, most recently dated 08/31/2018. TECHNIQUE: Following the IV administration of 119 cc of Optiray 320, CT scan of the abdomen and pelv is is performed from the lung bases to the proximal femora. Images are reviewed in the axial, sagitta l, and coronal planes. IV contrast was administered without complication. A dose lowering technique w as utilized adhering to the principles of ALARA. The examination is degraded by streak artifact from the arms which could not be elevated above the abdomen. The examination is also degraded by motion ar tifact. CT DOSE: 449.34 mGy.cm FINDINGS: Lung bases: The heart is normal in size and without pericardial effusion. The coronary arteries maynor l annulus are densely calcified. The lung bases are clear noting bibasilar scarring/atelectasis. Ther e is a small hiatal hernia. Liver: The contrast-enhanced liver is enlarged, measuring 20.3 cm in length. The liver demonstrates d iffusely diminished attenuation consistent with hepatic steatosis. There is minimal central Intrahepa tic biliary ductal dilatation. The hepatic veins and portal veins are patent. Gallbladder: Surgically absent noting clips in the gallbladder fossa. Spleen: Normal in size and attenuation. Pancreas: Atrophic and grossly unremarkable. Adrenal glands: Unremarkable. Kidneys: The contrast enhanced kidneys demonstrate cortical atrophy and are without hydronephrosis. T he kidneys enhance symmetrically. There are numerous small bilateral nonobstructing renal calculi as which measure up to 5 mm. Abdominal vasculature: The abdominal aorta is normal in course and caliber noting advanced atheroscle rotic calcification. Bowel: There are postoperative changes from sigmoid colon resection and left lower quadrant colostomy and Nevarez pouch formation. There is a fat-containing parastomal hernia. No bowel obstruction is se en. There is moderate diverticulosis of the remaining colon. There is faint inflammatory change ident ified around a diverticulum at the splenic flexure (best seen on axial image #92) consistent with mil d acute diverticulitis. There is no evidence of abscess. The appendix is well-visualized and normal. Peritoneum: There is no intraperitoneal free air or abdominal ascites. There is a fat-containing umbi lical hernia. There is asymmetric atrophy of the left iliopsoas musculature as compared the right. Lymphadenopathy: None. Pelvic viscera: Evaluation of the pelvis is degraded by streak artifact from bilateral hip arthroplas ties. The bladder is normal as visualized. The uterus is surgically absent. No adnexal lesion is seen . Skeletal structures: The skeletal structures are osteopenic. No lytic or blastic lesions are seen. Th ere is moderate lumbosacral spondylosis. Sclerotic degenerative change is noted in the sacroiliac mirtha nts. There are bilateral hip arthroplasties. There are healed right pubic ring fractures as well as h ealed left-sided rib fractures. IMPRESSION: 1. There is moderate colonic diverticulosis with evidence of mild acute diverticulitis at the splenic flexure. 2. No intraperitoneal free air or abscess is identified. 3. There are postoperative changes from sigmoid colon resection and left lower quadrant colostomy. No bowel obstruction is seen. 4. There are numerous bilateral nonobstructing renal calculi. 5. Hepatomegaly and hepatic steatosis. 6. Additional findings as above. Electronically signed by: Bennett Huertas M.D. 11/21/2018 8:55 PM
[2018-11-21] MEDS ORDERED: PANTOprazole 40 MG TAB PO SCH (21:00)
[2018-11-21] MEDS ORDERED: QUETIAPINE FUMARATE 150 MG TABCR PO SCH (21:00)
[2018-11-21] MEDS ORDERED: ONDANSETRON INJ 2 MG/ML 2 ML VIAL IV PRN (22:16)
[2018-11-21] MEDS ORDERED: POLYETHYLENE (MIRALAX) 17 GM PACK PO PRN (22:16)
[2018-11-21] MEDS ORDERED: PHENAZOPYRIDINE HCL 200 MG TAB PO PRN (22:16)
[2018-11-21] MEDS ORDERED: ALUMINUM/MAGNESIUM SUSP 30 ML UDC PO PRN (22:16)
[2018-11-21] MEDS ORDERED: MAGNESIUM HYDROXIDE SUSP 30 ML UDC PO PRN (22:16)
[2018-11-21] MEDS: PRAZOSIN HCL 1 MG CAP PO SCH (23:29)
[2018-11-21] MEDS: GABAPENTIN 300 MG CAP PO SCH (23:33)
[2018-11-21] MEDS: OXYCODONE HCL IR 5 MG TAB (IMMEDIATE RELEASE) PO SCH (23:33)
[2018-11-21] MEDS: POTASSIUM CHLORIDE PWD 20 MEQ PACK PO SCH (23:34)
[2018-11-21] MEDS: QUETIAPINE FUMARATE 50 MG TABCR PO SCH (23:48)
[2018-11-21] MEDS: SODIUM CHLORIDE 0.9% 1000ML 1,000 ML IV SCH (23:49)
[2018-11-22] MEDS: LEVOTHYROXINE SODIUM 88 MCG TABLET PO SCH (06:05)
[2018-11-22 06:59] LABS: Basophils # (auto) 0.04 K/uL (0-0.2); Basophils % (auto) 0.4 %; Eosinophils # (auto) 0.36 K/uL (0-0.5); Eosinophils % (auto) 3.5 %; Hemoglobin 9.2 g/dL (12.0-16.0); Immature Granulocytes # (auto) 0.06 K/uL (0.00-0.02); Immature Granulocytes % (auto) 0.6 %; Lymphocytes # (auto) 2.65 K/uL (1.2-3.4); Lymphocytes % (auto) 26.1 %; Mean Corpuscular Hgb Conc 30.7 g/dL (32-36); Mean Corpuscular Volume 95.2 fL (80-100); Mean Platelet Volume 8.9 fL (7.4-10.4); Monocytes # (auto) 0.98 K/uL (0.11-0.59); Monocytes % (auto) 9.7 %; Neutrophils # (auto) 6.06 K/uL (1.4-6.5); Neutrophils % (auto) 59.7 %; Platelet Count 259 K/uL (130-400); RDW Coefficient of Variation 15.4 % (11.5-14.5); RDW Standard Deviation 53.1 fL (36.4-46.3); Red Blood Count 3.15 M/uL (4.2-5.4); White Blood Count 10.15 K/uL (4.8-10.8)
[2018-11-22 07:30] LABS: BUN Creatinine Ratio 14.7 (10-20); Calcium 8.1 mg/dl (8.5-10.1); Creatinine Clr Calc Pharmacy 33.9 ml/min; Est GFR (African American) 51.3; Est GFR (Non-African American) 44.3; Potassium 3.6 mmol/L (3.5-5.1)
[2018-11-22] MEDS: ASPIRIN 81 MG ECTAB PO SCH (09:16)
[2018-11-22] MEDS: OXYCODONE HCL IR 5 MG TAB (IMMEDIATE RELEASE) PO SCH ×2 (09:16→20:19)
[2018-11-22] MEDS: GABAPENTIN 300 MG CAP PO SCH ×3 (09:17→20:20)
[2018-11-22] MEDS: predniSONE 10 MG TABLET PO SCH (09:17)
[2018-11-22] MEDS: SACCHAROMYCES BOULARDII 250 MG CAP PO SCH (09:17)
[2018-11-22] MEDS: POTASSIUM CHLORIDE PWD 20 MEQ PACK PO SCH ×3 (09:17→20:27)
[2018-11-22] MEDS: DULOXETINE HCL 60 MG CAP PO SCH (09:17)
[2018-11-22] MEDS: CLOPIDOGREL BISULFATE 75 MG TAB PO SCH (09:17)
[2018-11-22] MEDS: HYDROXYCHLOROQUINE SULFATE 200 MG TAB PO SCH (09:18)
[2018-11-22] MEDS: MIDODRINE HCL 2.5 MG TAB PO SCH ×3 (09:18→17:26)
[2018-11-22] MEDS: DULOXETINE HCL 30 MG CAP PO SCH (09:18)
--- NOTE | 2018-11-22 10:11 | Urology Consultation ---
Date of Consultation November 22, 2018 Assessment & Plan (1) Recurrent UTI: Recurrent UTI: CT imaging stable from standpoint. Bilateral nephrolithiasis stable, nonobstructing. Pt reports lack of typical UTI symptoms upon admission. UA with contamination. Awaiting UC&S Afebrile, WBC 16 -> 10.15 today. UC&S pending. Likely diverticulitis tx will also appropriately treat uropathogen, if indicated. Continue management per ID. Originally planned for outpatient f/u on 11/25 then outpt cystoscopy on 12/[address] Coronle however, it may be beneficial to pursue cystoscopy while inpatient given her repeat infections. Will discuss with team tomorrow. This will also depend on patient's clinical course. History of Present Illness Reason for Consultation: recurrent UTI Requesting Physician: Dr. Winkler Attending Physician: Sebas Winkler History of Present Illness 86yo F, well known to our practice, established with Dr. 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 Attempted multiple suppression medications. Recently discharged from [facility] for enterobacter UTI, home on IV ertapenem. Presented back to ED for worsening abdominal cramping and lethargy x5d. CT abd pelvis reveals mild diverticulitis. No abscess. Bilateral nephrolithiasis stable, no hydro or obstruction. Pt states this is her first episode of diverticulitis since sigmoidectomy 4 years ago. Cr 1.27 on admission, 1.13 today. Initial UA with large epi's likely contamination, +1 leuks, +1 bacteria. No nitrates. UC&S pending. Denies signficant suprapubic pain, dysuria, urg/hestancy as she typically does with UTIs. Allergies Allergy/AdvReac Type Severity Reaction Status Date / Time nitrofurantoin Allergy Severe HIVES Verified 09/26/18 14:12 scallops Allergy Severe THROAT Verified 09/26/18 14:12 SWELLS Cipro Allergy Intermediate HIVES Verified 06/03/18 16:34 ciprofloxacin Allergy Intermediate HIVES Verified 09/26/18 14:12 latex Allergy Intermediate RASH Verified 09/26/18 14:12 Quinolones Allergy Intermediate HIVES Verified 09/26/18 14:12 fluticasone Allergy Unknown ADVAIR-UNKN Verified 09/26/18 14:12 OWN salmeterol Allergy Unknown ADVAIR Verified 09/26/18 14:12 celecoxib AdvReac Intermediate barretts Verified 09/26/18 14:12 esophagus lactose AdvReac Intermediate GI UPSET Verified 09/26/18 14:12 morphine AdvReac Intermediate NAUSEA AND Verified 09/26/18 14:12 VOMITING Home Medications Home Medications Medication Instructions Recorded Confirmed Type ascorbic acid (vitamin C) 500 mg 500 mg PO QAM 07/07/18 11/21/18 History tablet aspirin 81 mg tablet,delayed 81 mg PO QAM 07/07/18 11/21/18 History release cholecalciferol (vitamin D3) 2,000 2,000 units PO QAM 07/07/18 11/21/18 History unit capsule fexofenadine 60 mg tablet 60 mg PO DAILY PRN tab 07/07/18 11/21/18 History furosemide 20 mg tablet 20 mg PO DAILY PRN 07/07/18 11/21/18 History hydroxychloroquine 200 mg tablet 300 mg PO QAM tab 07/07/18 11/21/18 History levothyroxine 88 mcg tablet 88 mcg PO QAM 07/07/18 11/21/18 History nitroglycerin 0.4 mg sublingual 0.4 mg SL Q5M PRN #1 tab 07/07/18 11/21/18 Rx tablet clopidogrel [Plavix] 75 mg PO QAM 08/10/18 11/21/18 History diclofenac sodium [Voltaren] 4 gm TOP QID PRN MDD 16G 08/10/18 11/21/18 History duloxetine [Cymbalta] 60 mg PO QAM 08/10/18 11/21/18 History fluticasone [Flonase Allergy 2 spray INTRANASAL DAILY PRN 08/10/18 11/21/18 History Relief] lidocaine 1 applic TOPICAL QID PRN 08/10/18 11/21/18 History ondansetron HCl [Zofran] 8 mg PO Q6 PRN 08/10/18 11/21/18 History potassium chloride 20 meq PO BID 08/10/18 11/21/18 History cyanocobalamin (vitamin B-12) 1,000 mcg PO QAM 08/31/18 11/21/18 History [Vitamin B-12] oxycodone 10 mg PO BID 08/31/18 11/21/18 History quetiapine [Seroquel XR] 150 mg PO HS 08/31/18 11/21/18 History vit A,C and K-ubdbjl-lwperkyd 1 tab PO QAM 08/31/18 11/21/18 History [Ocuvite with Lutein] gabapentin 300 mg PO TID 09/26/18 11/21/18 History polyethylene glycol 3350 [Miralax] 17 gm PO QAM 09/26/18 11/21/18 History vitamin B complex 1 tab PO QAM 09/26/18 11/21/18 History dexlansoprazole [Dexilant] 60 mg PO BID 11/07/18 11/21/18 History midodrine 5 mg PO TID@0800,1200,1700 11/07/18 11/21/18 History phenazopyridine [Azo Urinary Pain 97.5 mg PO TID PRN 11/07/18 11/21/18 History Relief] prazosin 1 mg PO HS PRN 11/07/18 11/21/18 History prednisone 10 mg PO QAM 11/07/18 11/21/18 History bifidobacteri bifid.and longum 1 cap PO DAILY 11/21/18 11/21/18 History [Florajen Bifidoblend] cephalexin 500 mg PO BID 11/21/18 11/21/18 History duloxetine 30 mg PO DAILY 11/21/18 11/21/18 History prednisone 2.5 mg PO DAILY 11/21/18 11/21/18 History Patient History Medical History Rheumatoid arthritis Chronic back pain (Chronic) Depression (Chronic 03/10/13) Osteoarthritis (Chronic 03/10/13) Chronic anemia (Acute) Major depressive disorder, recurrent episode with anxious distress Acute gastritis (03/23/12) Cholecystectomy (03/10/13) Colostomy present Diabetes mellitus Diverticula of colon Falls frequently History of colitis Infected abrasion of great toe of left foot Infected abrasion of great toe of right foot Lactose intolerance Low blood pressure Pituitary adenoma (03/10/13) Slurred speech TIA (transient ischemic attack) Vasovagal syncope (03/10/13) Surgical History History of hip replacement (Chronic) Hx of cholecystectomy (Chronic) H/O: hysterectomy (Chronic) History of surgical removal of pituitary gland History of surgical removal of pituitary gland Family History Other Cancer Diabetes Gallbladder disease HTN (hypertension) Heart disease Seizure Social History marital status: Current Living Situation: Alone Current Living Situation Comment: With [facility] Other Information That Helps Us Care for You: No Feels Safe at Home: Yes Safety Concerns: Feels Safe At This Time Smoking Status: Never smoker Do You Dip or Chew Tobacco: No Hx Alcohol Use: No Hx Substance Use: No Beliefs That Will Affect Care: Yazidism Yazidism Beliefs: Judaism Preferred Language: Polish Communication Ability: Effective Senior Risk Analyst Required: No Review of Systems Constitutional: + fatigue; no fever and no chills Eyes: no problem reported Ear, Nose, Mouth, Throat: no ear pain Respiratory: no cough and no dyspnea Cardiovascular: no chest pain Gastrointestinal: + abdominal pain (generalized lower abdomen); no nausea and no vomiting Genitourinary (Female): no dysuria, no urinary frequency, no urinary hesitancy, no hematuria and no flank pain Musculoskeletal: no back pain Integumentary: no rash Neurologic: no numbness and no paresthesia Psychiatric: no hopelessness Endocrine: no polydipsia Physical Exam 2 Vital Signs (Past 24 Hours): Last Vital Signs Temp 36.5 C 11/22/18 07:26 Pulse 97 H 11/22/18 07:26 Resp 15 11/22/18 07:26 BP 90/54 L 11/22/18 07:26 Pulse Ox 94 11/22/18 07:26 Constitutional: well nourished; no acute distress Eyes: no nystagmus corrective lenses on ENMT: Ears: no hearing impairment Neck: trachea midline Respiratory: no respiratory distress, no labored breathing and does not use accessory muscles Cardiovascular: Vessels: no JVD Gastrointestinal (Abdomen): Inspection/Auscultation: abdomen not distended and no abdominal edema Percussion/Palpation: + abdomen tender; no guarding ostomy intact Musculoskeletal: Head/Neck/Chest: normocephalic Skin: no rashes, warm and dry Neurologic: awake; not confused and not obtunded Psychiatric: Orientation: alert and oriented x 3 Eye Contact: good eye contact Results & Data Laboratory Results Laboratory Results - last 48 hr 11/21/18 11/21/18 11/21/18 18:41 18:41 18:44 WBC 16.32 H RBC 3.35 L Hgb 9.9 L Hct 31.8 L MCV 94.9 MCH 29.6 MCHC 31.1 L RDW Std Deviation 53.1 H RDW Coeff of Omar 15.4 H Plt Count 323 MPV 9.6 Immature Gran % (Auto) 0.9 Neut % (Auto) 76.0 Lymph % (Auto) 13.7 [place] % (Auto) 8.2 Eos % (Auto) 0.8 Baso % (Auto) 0.4 Immature Gran # (Auto) 0.15 H Neut # (Auto) 12.40 H Lymph # (Auto) 2.24 [place] # (Auto) 1.34 H Eos # (Auto) 0.13 Baso # (Auto) 0.06 Sodium 139 Potassium 4.3 Chloride 102 Carbon Dioxide 28 Anion Gap 9.0 BUN 20 H Creatinine 1.27 H Est Cr Clr Drug Dosing Not Reportable Est GFR ( Amer) 44.6 Est GFR (Non-Af Amer) 38.5 BUN/Creatinine Ratio 15.7 Glucose 99 POC Glucose POC Lactic Acid [place]row Calcium 9.0 Magnesium 2.3 Total Bilirubin 0.2 AST 16 ALT 23 Alkaline Phosphatase 84 Troponin I < 0.015 Total Protein 7.0 Albumin 3.1 L Globulin 3.9 Albumin/Globulin Ratio 0.8 L Lipase 80 TSH 1.050 Urine Color Yellow Urine Appearance Clear Urine pH 6.5 Ur Specific Dix 1.017 Urine Protein Negative Urine Glucose (UA) Negative Urine Ketones Negative Urine Blood Negative Urine Nitrite Negative Urine Bilirubin Negative Urine Urobilinogen Negative Ur Leukocyte Esterase 1+ H Urine WBC (Auto) 5-10 H Urine RBC (Auto) 0-4 U Hyaline Cast (Auto) 0 U Epithel Cells (Auto) >30 H Urine Bacteria (Auto) 1+ H 11/21/18 11/22/18 11/22/18 19:42 06:45 06:45 WBC 10.15 RBC 3.15 L Hgb 9.2 L Hct 30.0 L MCV 95.2 MCH 29.2 MCHC 30.7 L RDW Std Deviation 53.1 H RDW Coeff of Omar 15.4 H Plt Count 259 MPV 8.9 Immature Gran % (Auto) 0.6 Neut % (Auto) 59.7 Lymph % (Auto) 26.1 [place] % (Auto) 9.7 Eos % (Auto) 3.5 Baso % (Auto) 0.4 Immature Gran # (Auto) 0.06 H Neut # (Auto) 6.06 Lymph # (Auto) 2.65 [place] # (Auto) 0.98 H Eos # (Auto) 0.36 Baso # (Auto) 0.04 Sodium 139 Potassium 3.6 D Chloride 108 H Carbon Dioxide 27 Anion Gap 4.0 BUN 17 Creatinine 1.13 Est Cr Clr Drug Dosing 33.9 Est GFR ( Amer) 51.3 Est GFR (Non-Af Amer) 44.3 BUN/Creatinine Ratio 14.7 Glucose 100 H POC Glucose POC Lactic Acid Woodrow 2.41 H Calcium 8.1 L Magnesium Total Bilirubin AST ALT Alkaline Phosphatase Troponin I Total Protein Albumin Globulin Albumin/Globulin Ratio Lipase TSH Urine Color Urine Appearance Urine pH Ur Specific [place] Urine Protein Urine Glucose (UA) Urine Ketones Urine Blood Urine Nitrite Urine Bilirubin Urine Urobilinogen Ur Leukocyte Esterase Urine WBC (Auto) Urine RBC (Auto) U Hyaline Cast (Auto) U Epithel Cells (Auto) Urine Bacteria (Auto) 11/22/18 07:49 WBC RBC Hgb Hct MCV MCH MCHC RDW Std Deviation RDW Coeff of Omar Plt Count MPV Immature Gran % (Auto) Neut % (Auto) Lymph % (Auto) [place] % (Auto) Eos % (Auto) Baso % (Auto) Immature Gran # (Auto) Neut # (Auto) Lymph # (Auto) [place] # (Auto) Eos # (Auto) Baso # (Auto) Sodium Potassium Chloride Carbon Dioxide Anion Gap BUN Creatinine Est Cr Clr Drug Dosing Est GFR ( Amer) Est GFR (Non-Af Amer) BUN/Creatinine Ratio Glucose POC Glucose 105 H POC Lactic Acid [place]row Calcium Magnesium Total Bilirubin AST ALT Alkaline Phosphatase Troponin I Total Protein Albumin Globulin Albumin/Globulin Ratio Lipase TSH Urine Color Urine Appearance Urine pH Ur Specific Dix Urine Protein Urine Glucose (UA) Urine Ketones Urine Blood Urine Nitrite Urine Bilirubin Urine Urobilinogen Ur Leukocyte Esterase Urine WBC (Auto) Urine RBC (Auto) U Hyaline Cast (Auto) U Epithel Cells (Auto) Urine Bacteria (Auto)
--- NOTE | 2018-11-22 11:27 | Hospitalist Progress Note ---
Date of Service November 22, 2018 Assessment & Plan (1) Diverticulitis: - Presented with abdominal pain and lethargy; CT A/P showed mild acute diverticulitis at the splenic flexure. 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 - C. diff and stool culture pending in setting of loose ostomy output. - Ertapenem 1 gm IV q24hr due to h/o MDR and multiple allergies. - IV fluids at 100 cc/hr; Carb consistent diet as tolerated. - ID consulted for recs. - On probiotic daily due to frequent use of IV & PO abx. (2) Recurrent UTI: - H/o recurrent UTIs; most recently admitted 11/07-11/11 for Pseudomonas UTI requiring IV Ertapenem course. - U/a positive; UC and BC pending. - H/o colovesicular fistula; is scheduled for follow up with urology on 11/25/18. - Will consult urology and ID as inpatient. - Previously on Keflex ppx; will need to discuss resuming med with ID. (3) Stage III chronic kidney disease: - Renally dose all meds. - Creatinine currently at baseline. - NS at 100 cc/hr. (4) Nephrolithiasis: - Noted on imaging; has discussed with urology, pt. declined further treatment. (5) SLE (systemic lupus erythematosus): - Continue Plaquenil and Prednisone as prescribed. (6) Rheumatoid arthritis: - Continue Plaquenil and Prednisone as prescribed. - Will need to start stress dose steroids if she remains hypotensive -- most recent BP was 90/54. - Oxycodone 10 mg BID scheduled with Tylenol prn pain. (7) Chronic diastolic heart failure: - TTE 2010: grade I diastolic dysfunction, EF 60-65%. - Caution with continuous IV fluids -- monitor for fluid overload. (8) Peripheral artery disease: - Continue Plavix and Aspirin. (9) Hypothyroid: - Continue Synthroid as prescribed. (10) Chronic anemia: - Hemoglobin baseline ~9.5-10.5. - Iron panel consistent with anemia of chronic disease. - Monitor CBC qAM. (11) Orthostatic hypotension: - H/o orthostasis and vasovagal syncope. - Continue Midodrine 5 mg TID. - On IVFs at 100 cc/hr. (12) Neuropathy: - Continue Gabapentin and Cymbalta as prescribed. (13) Mood disorder: - Continue Seroquel 150 mg qhs as prescribed. (14) Chronic respiratory failure: - Usually requires 3L at home; has been stable on room air. (15) DVT prophylaxis: - SCDs; Pt. has large hematoma on abdomen from prior lovenox use, will hold for now. Dispo: Med/surg for IV abx, ID consulted. Supervising Physician Co-Signing Physician Notes Attending Attestation - Chart reviewed in detail, care plan d/w PA Denise Goldstein. I agree w/ the amaro components of her documentation. Chronically debilitated 87yo female with chronic hypoxic resp failure on home O2 as well as recurrent UTIs. Multiple admissions for UTIs over last several months. Reported h/o colovesicular fistula. She has colostomy due to prior sigmoid resection. Continue IV antibiotics; follow cultures. Cystoscopy during this stay due to recurrent UTIs? Sebas Winkler MD Subjective Pt. is fatigued but lethargy now improved overall. She feels bloated, states she thinks colostomy is not draining well. Pt. has prune juice this morning. Complains of suprapubic abdominal pain along with left and right sided lower abdomen pain. Right side >left side. Denies dysuria or hematuria. Had chills at home, no fevers noted. U/a was positive, UC pending. CT also +acute diverticulitis -- on IV Ertapenem. ID is consulted due to h/o MDR infections. Review of Systems All systems reviewed & are unremarkable except as noted in HPI & below Constitutional: + chills, + fatigue, + weakness and + anorexia; no fever Respiratory: no cough, no dyspnea and no dyspnea on exertion Cardiovascular: no chest pain, no palpitations and no edema Gastrointestinal: + abdominal pain and + bloating; no nausea, no vomiting, no constipation and no diarrhea/loose stools Genitourinary (Female): no dysuria, no difficulty urinating and no hematuria Musculoskeletal: no joint pain Allergy / Immunological: no rash Physical Exam 2 Vital Signs (Past 24 Hours): Last Vital Signs Temp 36.5 C 11/22/18 07:26 Pulse 97 H 11/22/18 07:26 Resp 15 11/22/18 07:26 BP 90/54 L 11/22/18 07:26 Pulse Ox 94 11/22/18 07:26 Physical Exam: General: Resting comfortably in no apparent distress HEENT: NC/AT; PERRLA with EOMI; Olivia Lopez De Gutierrez conjunctiva, MMM. Neck: Supple and nontender Cardiac: RRR w/o murmurs, gallops or rubs Lungs: CTA bilaterally; No rhonchi, wheezing, or rales Abdomen: Colostomy with brown liquid output; BS normoactive x4; tenderness to light palpation over suprapubic region and bilat lower abdomen. Extremities: Warm. No edema present Neuro: No focal weakness Skin: No rash Results & Data Laboratory Results 11/22/18 11/22/18 11/22/18 Range/Units 07:49 06:45 06:45 WBC 10.15 (4.8-10.8) K/uL RBC 3.15 L (4.2-5.4) M/uL Hgb 9.2 L (12.0-16.0) g/dL Hct 30.0 L (37-47) % MCV 95.2 (80-100) fL MCH 29.2 (25-34) pg MCHC 30.7 L (32-36) g/dL RDW Std Deviation 53.1 H (36.4-46.3) fL RDW Coeff of Omar 15.4 H (11.5-14.5) % Plt Count 259 (130-400) K/uL MPV 8.9 (7.4-10.4) fL Immature Gran % (Auto) 0.6 % Neut % (Auto) 59.7 % Lymph % (Auto) 26.1 % [place] % (Auto) 9.7 % Eos % (Auto) 3.5 % Baso % (Auto) 0.4 % Immature Gran # (Auto) 0.06 H (0.00-0.02) K/uL Neut # (Auto) 6.06 (1.4-6.5) K/uL Lymph # (Auto) 2.65 (1.2-3.4) K/uL [place] # (Auto) 0.98 H (0.11-0.59) K/uL Eos # (Auto) 0.36 (0-0.5) K/uL Baso # (Auto) 0.04 (0-0.2) K/uL Sodium 139 (136-145) mmol/L Potassium 3.6 D (3.5-5.1) mmol/L Chloride 108 H (98-107) mmol/L Carbon Dioxide 27 (21-32) mmol/L Anion Gap 4.0 (3-11) BUN 17 (7-18) mg/dl Creatinine 1.13 (0.6-1.2) mg/dl Est Cr Clr Drug Dosing 33.9 Est GFR ( Amer) 51.3 Est GFR (Non-Af Amer) 44.3 BUN/Creatinine Ratio 14.7 (10-20) Glucose 100 H (70-99) mg/dl POC Glucose 105 H (70-99) POC Lactic Acid Woodrow (0.90-1.70) mmol/L Calcium 8.1 L (8.5-10.1) mg/dl Magnesium (1.8-2.4) mg/dl Total Bilirubin (0.2-1) mg/dl AST (15-37) U/L ALT (12-78) U/L Alkaline Phosphatase (45-117) U/L Troponin I (0-0.045) ng/ml Total Protein (6.4-8.2) gm/dl Albumin (3.4-5.0) gm/dl Globulin (2.5-4.0) gm/dl Albumin/Globulin Ratio (0.9-2) Lipase (73-393) U/L TSH (0.300-4.500) uIu/ml Urine Color Urine Appearance (Clear) Urine pH (4.5-7.5) Ur Specific [place] (1.000-1.030) Urine Protein (Negative) Urine Glucose (UA) (Negative) Urine Ketones (Negative) Urine Blood (Negative) Urine Nitrite (Negative) Urine Bilirubin (Negative) Urine Urobilinogen (Negative) Ur Leukocyte Esterase (Negative) Urine WBC (Auto) (0-5) /hpf Urine RBC (Auto) (0-4) /hpf U Hyaline Cast (Auto) (0-5) /lpf U Epithel Cells (Auto) (0-5) /lpf Urine Bacteria (Auto) (Negative) 11/21/18 11/21/18 11/21/18 Range/Units 19:42 18:44 18:41 WBC (4.8-10.8) K/uL RBC (4.2-5.4) M/uL Hgb (12.0-16.0) g/dL Hct (37-47) % MCV (80-100) fL MCH (25-34) pg MCHC (32-36) g/dL RDW Std Deviation (36.4-46.3) fL RDW Coeff of Omar (11.5-14.5) % Plt Count (130-400) K/uL MPV (7.4-10.4) fL Immature Gran % (Auto) % Neut % (Auto) % Lymph % (Auto) % [place] % (Auto) % Eos % (Auto) % Baso % (Auto) % Immature Gran # (Auto) (0.00-0.02) K/uL Neut # (Auto) (1.4-6.5) K/uL Lymph # (Auto) (1.2-3.4) K/uL [place] # (Auto) (0.11-0.59) K/uL Eos # (Auto) (0-0.5) K/uL Baso # (Auto) (0-0.2) K/uL Sodium 139 (136-145) mmol/L Potassium 4.3 (3.5-5.1) mmol/L Chloride 102 (98-107) mmol/L Carbon Dioxide 28 (21-32) mmol/L Anion Gap 9.0 (3-11) BUN 20 H (7-18) mg/dl Creatinine 1.27 H (0.6-1.2) mg/dl Est Cr Clr Drug Dosing Not Reportable Est GFR ( Amer) 44.6 Est GFR (Non-Af Amer) 38.5 BUN/Creatinine Ratio 15.7 (10-20) Glucose 99 (70-99) mg/dl POC Glucose (70-99) POC Lactic Acid Woodrow 2.41 H (0.90-1.70) mmol/L Calcium 9.0 (8.5-10.1) mg/dl Magnesium 2.3 (1.8-2.4) mg/dl Total Bilirubin 0.2 (0.2-1) mg/dl AST 16 (15-37) U/L ALT 23 (12-78) U/L Alkaline Phosphatase 84 (45-117) U/L Troponin I < 0.015 (0-0.045) ng/ml Total Protein 7.0 (6.4-8.2) gm/dl Albumin 3.1 L (3.4-5.0) gm/dl Globulin 3.9 (2.5-4.0) gm/dl Albumin/Globulin Ratio 0.8 L (0.9-2) Lipase 80 (73-393) U/L TSH 1.050 (0.300-4.500) uIu/ml Urine Color Yellow Urine Appearance Clear (Clear) Urine pH 6.5 (4.5-7.5) Ur Specific [place] 1.017 (1.000-1.030) Urine Protein Negative (Negative) Urine Glucose (UA) Negative (Negative) Urine Ketones Negative (Negative) Urine Blood Negative (Negative) Urine Nitrite Negative (Negative) Urine Bilirubin Negative (Negative) Urine Urobilinogen Negative (Negative) Ur Leukocyte Esterase 1+ H (Negative) Urine WBC (Auto) 5-10 H (0-5) /hpf Urine RBC (Auto) 0-4 (0-4) /hpf U Hyaline Cast (Auto) 0 (0-5) /lpf U Epithel Cells (Auto) >30 H (0-5) /lpf Urine Bacteria (Auto) 1+ H (Negative) 11/21/18 Range/Units 18:41 WBC 16.32 H (4.8-10.8) K/uL RBC 3.35 L (4.2-5.4) M/uL Hgb 9.9 L (12.0-16.0) g/dL Hct 31.8 L (37-47) % MCV 94.9 (80-100) fL MCH 29.6 (25-34) pg MCHC 31.1 L (32-36) g/dL RDW Std Deviation 53.1 H (36.4-46.3) fL RDW Coeff of Omar 15.4 H (11.5-14.5) % Plt Count 323 (130-400) K/uL MPV 9.6 (7.4-10.4) fL Immature Gran % (Auto) 0.9 % Neut % (Auto) 76.0 % Lymph % (Auto) 13.7 % [place] % (Auto) 8.2 % Eos % (Auto) 0.8 % Baso % (Auto) 0.4 % Immature Gran # (Auto) 0.15 H (0.00-0.02) K/uL Neut # (Auto) 12.40 H (1.4-6.5) K/uL Lymph # (Auto) 2.24 (1.2-3.4) K/uL [place] # (Auto) 1.34 H (0.11-0.59) K/uL Eos # (Auto) 0.13 (0-0.5) K/uL Baso # (Auto) 0.06 (0-0.2) K/uL Sodium (136-145) mmol/L Potassium (3.5-5.1) mmol/L Chloride (98-107) mmol/L Carbon Dioxide (21-32) mmol/L Anion Gap (3-11) BUN (7-18) mg/dl Creatinine (0.6-1.2) mg/dl Est Cr Clr Drug Dosing Est GFR ( Amer) Est GFR (Non-Af Amer) BUN/Creatinine Ratio (10-20) Glucose (70-99) mg/dl POC Glucose (70-99) POC Lactic Acid [place]row (0.90-1.70) mmol/L Calcium (8.5-10.1) mg/dl Magnesium (1.8-2.4) mg/dl Total Bilirubin (0.2-1) mg/dl AST (15-37) U/L ALT (12-78) U/L Alkaline Phosphatase (45-117) U/L Troponin I (0-0.045) ng/ml Total Protein (6.4-8.2) gm/dl Albumin (3.4-5.0) gm/dl Globulin (2.5-4.0) gm/dl Albumin/Globulin Ratio (0.9-2) Lipase (73-393) U/L TSH (0.300-4.500) uIu/ml Urine Color Urine Appearance (Clear) Urine pH (4.5-7.5) Ur Specific [place] (1.000-1.030) Urine Protein (Negative) Urine Glucose (UA) (Negative) Urine Ketones (Negative) Urine Blood (Negative) Urine Nitrite (Negative) Urine Bilirubin (Negative) Urine Urobilinogen (Negative) Ur Leukocyte Esterase (Negative) Urine WBC (Auto) (0-5) /hpf Urine RBC (Auto) (0-4) /hpf U Hyaline Cast (Auto) (0-5) /lpf U Epithel Cells (Auto) (0-5) /lpf Urine Bacteria (Auto) (Negative)
[2018-11-22] MEDS: SODIUM CHLORIDE 0.9% 1000ML 1,000 ML IV SCH (12:02)
--- NOTE | 2018-11-22 12:58 | Infectious Disease Consult ---
Date of Consultation November 22, 2018 Assessment & Plan (1) Diverticulitis: ua with min wbc, >30 ep cells, ? contaminated. will continue ertapenem pending cultures for diverticulitis. will need 14 days total. History of Present Illness Attending Physician: Sebas Eddie Bustillosheike pt admitted with right lower quadrant pain. was recently hospitialized for uti - culture grew Enterobacter. she was treated with Ertapenem and then was to transition to suppressive keflex. she was due to have cysto on 11/25 but remadmitted with abd pain ct in ER did reveal diverticulitis in additiona to b/ l non obstructing stones. no pyelo noted. UA with 5-10 wbc and > 30 ep cells. + 1 bacteria. she is eating lunch on my exam, tolerating well. less pain today but admits to bloating. no n/v. no gu symptoms currently. blood and urine cultures pending. no cp, sob, cough. wbc intially 16, improved to 10 today. Allergies Allergy/AdvReac Type Severity Reaction Status Date / Time nitrofurantoin Allergy Severe HIVES Verified 09/26/18 14:12 scallops Allergy Severe THROAT Verified 09/26/18 14:12 SWELLS Cipro Allergy Intermediate HIVES Verified 06/03/18 16:34 ciprofloxacin Allergy Intermediate HIVES Verified 09/26/18 14:12 latex Allergy Intermediate RASH Verified 09/26/18 14:12 Quinolones Allergy Intermediate HIVES Verified 09/26/18 14:12 fluticasone Allergy Unknown ADVAIR-UNKN Verified 09/26/18 14:12 OWN salmeterol Allergy Unknown ADVAIR Verified 09/26/18 14:12 celecoxib AdvReac Intermediate barretts Verified 09/26/18 14:12 esophagus lactose AdvReac Intermediate GI UPSET Verified 09/26/18 14:12 morphine AdvReac Intermediate NAUSEA AND Verified 09/26/18 14:12 VOMITING Home Medications Home Medications Medication Instructions Recorded Confirmed Type ascorbic acid (vitamin C) 500 mg 500 mg PO QAM 07/07/18 11/21/18 History tablet aspirin 81 mg tablet,delayed 81 mg PO QAM 07/07/18 11/21/18 History release cholecalciferol (vitamin D3) 2,000 2,000 units PO QAM 07/07/18 11/21/18 History unit capsule fexofenadine 60 mg tablet 60 mg PO DAILY PRN tab 07/07/18 11/21/18 History furosemide 20 mg tablet 20 mg PO DAILY PRN 07/07/18 11/21/18 History hydroxychloroquine 200 mg tablet 300 mg PO QAM tab 07/07/18 11/21/18 History levothyroxine 88 mcg tablet 88 mcg PO QAM 07/07/18 11/21/18 History nitroglycerin 0.4 mg sublingual 0.4 mg SL Q5M PRN #1 tab 07/07/18 11/21/18 Rx tablet clopidogrel [Plavix] 75 mg PO QAM 08/10/18 11/21/18 History diclofenac sodium [Voltaren] 4 gm TOP QID PRN MDD 16G 08/10/18 11/21/18 History duloxetine [Cymbalta] 60 mg PO QAM 08/10/18 11/21/18 History fluticasone [Flonase Allergy 2 spray INTRANASAL DAILY PRN 08/10/18 11/21/18 History Relief] lidocaine 1 applic TOPICAL QID PRN 08/10/18 11/21/18 History ondansetron HCl [Zofran] 8 mg PO Q6 PRN 08/10/18 11/21/18 History potassium chloride 20 meq PO BID 08/10/18 11/21/18 History cyanocobalamin (vitamin B-12) 1,000 mcg PO QAM 08/31/18 11/21/18 History [Vitamin B-12] oxycodone 10 mg PO BID 08/31/18 11/21/18 History quetiapine [Seroquel XR] 150 mg PO HS 08/31/18 11/21/18 History vit A,C and K-pvunaw-ngmssvpo 1 tab PO QAM 08/31/18 11/21/18 History [Ocuvite with Lutein] gabapentin 300 mg PO TID 09/26/18 11/21/18 History polyethylene glycol 3350 [Miralax] 17 gm PO QAM 09/26/18 11/21/18 History vitamin B complex 1 tab PO QAM 09/26/18 11/21/18 History dexlansoprazole [Dexilant] 60 mg PO BID 11/07/18 11/21/18 History midodrine 5 mg PO TID@0800,1200,1700 11/07/18 11/21/18 History phenazopyridine [Azo Urinary Pain 97.5 mg PO TID PRN 11/07/18 11/21/18 History Relief] prazosin 1 mg PO HS PRN 11/07/18 11/21/18 History prednisone 10 mg PO QAM 11/07/18 11/21/18 History bifidobacteri bifid.and longum 1 cap PO DAILY 11/21/18 11/21/18 History [Florajen Bifidoblend] cephalexin 500 mg PO BID 11/21/18 11/21/18 History duloxetine 30 mg PO DAILY 11/21/18 11/21/18 History prednisone 2.5 mg PO DAILY 11/21/18 11/21/18 History Patient History Medical History Rheumatoid arthritis Chronic back pain (Chronic) Depression (Chronic 03/10/13) Osteoarthritis (Chronic 03/10/13) Chronic anemia (Acute) Major depressive disorder, recurrent episode with anxious distress Acute gastritis (03/23/12) Cholecystectomy (03/10/13) Colostomy present Diabetes mellitus Diverticula of colon Falls frequently History of colitis Infected abrasion of great toe of left foot Infected abrasion of great toe of right foot Lactose intolerance Low blood pressure Pituitary adenoma (03/10/13) Slurred speech TIA (transient ischemic attack) Vasovagal syncope (03/10/13) Surgical History History of hip replacement (Chronic) Hx of cholecystectomy (Chronic) H/O: hysterectomy (Chronic) History of surgical removal of pituitary gland History of surgical removal of pituitary gland Family History Other Cancer Diabetes Gallbladder disease HTN (hypertension) Heart disease Seizure Social History marital status: Current Living Situation: Alone Current Living Situation Comment: With [facility] Other Information That Helps Us Care for You: No Feels Safe at Home: Yes Safety Concerns: Feels Safe At This Time Smoking Status: Never smoker Do You Dip or Chew Tobacco: No Hx Alcohol Use: No Hx Substance Use: No Beliefs That Will Affect Care: Mormonism Mormonism Beliefs: Faith Preferred Language: Armenian Communication Ability: Effective Silver 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 Physical Exam 2 Vital Signs (Past 24 Hours): Last Vital Signs Temp 36.5 C 11/22/18 07:26 Pulse 97 H 11/22/18 07:26 Resp 15 11/22/18 07:26 BP 90/54 L 11/22/18 07:26 Pulse Ox 94 11/22/18 07:26 Constitutional: WD/WN, vitals as above Eyes: PERRL, conjunctivae normal, anicteric sclerae ENMT: external ear and nose normal, oropharynx normal Neck: normal visual inspection Respiratory: normal respiratory effort, lungs clear to auscultation Cardiovascular: RRR, no murmur, no edema Gastrointestinal (Abdomen): normal bowel sounds, soft, nontender, no hepatosplenomegaly Musculoskeletal: no cyanosis or clubbing, extremities motor strength 5/5 Skin: no rashes, warm and dry Psychiatric: A+Ox3, euthymic affect
[2018-11-22] MEDS: ACETAMINOPHEN 325 MG TAB PO PRN ×2 (15:51→19:35)
--- NOTE | 2018-11-22 16:22 | Emergency Department Note ---
Entered by Deacon Sullivan acting as a scribe for History of Present Illness General Chief complaint: Urinary Symptoms Stated complaint: URINARY FREQUENCY, PAIN Time Seen by Provider: 11/21/18 17:22 Source: patient History of Present Illness Provider complaint: Urinary symptoms Onset (ago): day(s) (Last couple of days) Location: pelvis Severity: similar to prior episodes Pain Consistency: + other (Worsening) Maximum Pain Intensity: 4 Relieved By: + none Associated symptoms: + fever/chills (No fever), + loss of appetite, + weakness and + other (Frequent urination, abdominal pain) The patient is a 87 year old female who presents to the Emergency Room with complaints of worsening illness that started a couple of days ago. The patient has chronic UTIs and was recently put on Keflex 7 days ago after being on IV antibiotics. Just over the weekend she started losing her appetite, getting weaker, having the shakes, sweats, chills, frequent urination, more odor in her urine, and abdominal pain. She states the abdominal pain is common for her when she gets UTIs but she also has a colostomy in place. She did mention that she had to empty her colostomy bag twice this morning, which is abnormal, but her stool is normal. No blood noted in the drainage from her colostomy bag. She has a scope scheduled for this Wednesday at Dr. Molina office. She also sees Dr. Wilson. She takes Oxycodone every morning for pain, and a Tylenol every after noon. At home health aide is accompanying the patient here as she had noticed the patient's symptoms also on her checked today and was concerned. Home Medications Home Medications Medication Instructions Recorded Confirmed Type ascorbic acid (vitamin C) 500 mg 500 mg PO QAM 07/07/18 11/21/18 History tablet aspirin 81 mg tablet,delayed 81 mg PO QAM 07/07/18 11/21/18 History release cholecalciferol (vitamin D3) 2,000 2,000 units PO QAM 07/07/18 11/21/18 History unit capsule fexofenadine 60 mg tablet 60 mg PO DAILY PRN tab 07/07/18 11/21/18 History furosemide 20 mg tablet 20 mg PO DAILY PRN 07/07/18 11/21/18 History hydroxychloroquine 200 mg tablet 300 mg PO QAM tab 07/07/18 11/21/18 History levothyroxine 88 mcg tablet 88 mcg PO QAM 07/07/18 11/21/18 History nitroglycerin 0.4 mg sublingual 0.4 mg SL Q5M PRN #1 tab 07/07/18 11/21/18 Rx tablet clopidogrel [Plavix] 75 mg PO QAM 08/10/18 11/21/18 History diclofenac sodium [Voltaren] 4 gm TOP QID PRN MDD 16G 08/10/18 11/21/18 History duloxetine [Cymbalta] 60 mg PO QAM 08/10/18 11/21/18 History fluticasone [Flonase Allergy 2 spray INTRANASAL DAILY PRN 08/10/18 11/21/18 History Relief] lidocaine 1 applic TOPICAL QID PRN 08/10/18 11/21/18 History ondansetron HCl [Zofran] 8 mg PO Q6 PRN 08/10/18 11/21/18 History potassium chloride 20 meq PO BID 08/10/18 11/21/18 History cyanocobalamin (vitamin B-12) 1,000 mcg PO QAM 08/31/18 11/21/18 History [Vitamin B-12] oxycodone 10 mg PO BID 08/31/18 11/21/18 History quetiapine [Seroquel XR] 150 mg PO HS 08/31/18 11/21/18 History vit A,C and J-pitvnv-crxkptao 1 tab PO QAM 08/31/18 11/21/18 History [Ocuvite with Lutein] gabapentin 300 mg PO TID 09/26/18 11/21/18 History polyethylene glycol 3350 [Miralax] 17 gm PO QAM 09/26/18 11/21/18 History vitamin B complex 1 tab PO QAM 09/26/18 11/21/18 History dexlansoprazole [Dexilant] 60 mg PO BID 11/07/18 11/21/18 History midodrine 5 mg PO TID@0800,1200,1700 11/07/18 11/21/18 History phenazopyridine [Azo Urinary Pain 97.5 mg PO TID PRN 11/07/18 11/21/18 History Relief] prazosin 1 mg PO HS PRN 11/07/18 11/21/18 History prednisone 10 mg PO QAM 11/07/18 11/21/18 History bifidobacteri bifid.and longum 1 cap PO DAILY 11/21/18 11/21/18 History [Florajen Bifidoblend] cephalexin 500 mg PO BID 11/21/18 11/21/18 History duloxetine 30 mg PO DAILY 11/21/18 11/21/18 History prednisone 2.5 mg PO DAILY 11/21/18 11/21/18 History Allergies Allergy/AdvReac Type Severity Reaction Status Date / Time nitrofurantoin Allergy Severe HIVES Verified 09/26/18 14:12 scallops Allergy Severe THROAT Verified 09/26/18 14:12 SWELLS Cipro Allergy Intermediate HIVES Verified 06/03/18 16:34 ciprofloxacin Allergy Intermediate HIVES Verified 09/26/18 14:12 latex Allergy Intermediate RASH Verified 09/26/18 14:12 Quinolones Allergy Intermediate HIVES Verified 09/26/18 14:12 fluticasone Allergy Unknown ADVAIR-UNKN Verified 09/26/18 14:12 OWN salmeterol Allergy Unknown ADVAIR Verified 09/26/18 14:12 celecoxib AdvReac Intermediate barretts Verified 09/26/18 14:12 esophagus lactose AdvReac Intermediate GI UPSET Verified 09/26/18 14:12 morphine AdvReac Intermediate NAUSEA AND Verified 09/26/18 14:12 VOMITING Past Med/Surg History Medical History Rheumatoid arthritis Chronic back pain (Chronic) Depression (Chronic 03/10/13) Osteoarthritis (Chronic 03/10/13) Chronic anemia (Acute) Major depressive disorder, recurrent episode with anxious distress Acute gastritis (03/23/12) Cholecystectomy (03/10/13) Colostomy present Diabetes mellitus Diverticula of colon Falls frequently History of colitis Infected abrasion of great toe of left foot Infected abrasion of great toe of right foot Lactose intolerance Low blood pressure Pituitary adenoma (03/10/13) Slurred speech TIA (transient ischemic attack) Vasovagal syncope (03/10/13) Surgical History History of hip replacement (Chronic) Hx of cholecystectomy (Chronic) H/O: hysterectomy (Chronic) History of surgical removal of pituitary gland History of surgical removal of pituitary gland Family History Other Cancer Diabetes Gallbladder disease HTN (hypertension) Heart disease Seizure Social History marital status: / Current Living Situation: Alone Current Living Situation Comment: With HHN Other Information That Helps Us Care for You: No Feels Safe at Home: Yes Safety Concerns: Feels Safe At This Time Smoking Status: Never smoker Do You Dip or Chew Tobacco: No Hx Alcohol Use: No Hx Substance Use: No Beliefs That Will Affect Care: Pentecostalism Pentecostalism Beliefs: Zoroastrian Communication Ability: Effective Review of Systems See HPI for pertinent positives & negatives. and A total of 10 systems reviewed and were otherwise negative Physical Exam Vital Signs Vital Signs - 24 hr 11/21/18 17:19 11/21/18 18:44 11/21/18 20:17 Temperature 36.8 C Temperature Source Oral Sepsis Recent Fever Within 48 Hours No Sepsis New/Unexplained Change in Mental Status No Sepsis Action Taken by Nursing No Action Required Pulse Rate 107 H Pulse Rate [Right Finger] 97 H 90 Pulse Rhythm Regular Pulse Strength Normal Respiratory Rate 20 20 20 Respiratory Effort / Characteristics Non-Labored Spontaneous Non-Labored Non-Labored Spontaneous Respiratory Depth Normal Normal Normal Respiratory Pattern Regular Blood Pressure 121/64 Blood Pressure [Left Arm] 131/64 Blood Pressure [Right Arm] Blood Pressure Mean 83 Blood Pressure Mean [Left Arm] 86 Blood Pressure Mean [Right Arm] Blood Pressure Position Sitting Blood Pressure Position [Left Arm] Blood Pressure Position [Right Arm] Pulse Oximetry 95 97 95 Oxygen Delivery Method Room Air Room Air Room Air 11/21/18 20:38 11/21/18 21:00 11/21/18 21:48 Temperature Temperature Source Sepsis Recent Fever Within 48 Hours Sepsis New/Unexplained Change in Mental Status Sepsis Action Taken by Nursing Pulse Rate 90 Pulse Rate [Right Finger] 91 H Pulse Rhythm Pulse Strength Respiratory Rate 16 20 Respiratory Effort / Characteristics Respiratory Depth Respiratory Pattern Blood Pressure 144/78 H Blood Pressure [Left Arm] 136/59 L Blood Pressure [Right Arm] Blood Pressure Mean Blood Pressure Mean [Left Arm] 84 Blood Pressure Mean [Right Arm] Blood Pressure Position Blood Pressure Position [Left Arm] Lying Blood Pressure Position [Right Arm] Pulse Oximetry 95 96 Oxygen Delivery Method Room Air Room Air Room Air 11/22/18 01:41 11/22/18 07:26 11/22/18 16:30 Temperature 36.8 C 36.5 C 36.7 C Temperature Source Oral Oral Oral Sepsis Recent Fever Within 48 Hours Sepsis New/Unexplained Change in Mental Status Sepsis Action Taken by Nursing Pulse Rate Pulse Rate [Right Finger] 100 H 97 H 89 Pulse Rhythm Pulse Strength Respiratory Rate 18 15 15 Respiratory Effort / Characteristics Respiratory Depth Respiratory Pattern Blood Pressure Blood Pressure [Left Arm] Blood Pressure [Right Arm] 117/57 L 90/54 L 110/62 Blood Pressure Mean Blood Pressure Mean [Left Arm] Blood Pressure Mean [Right Arm] 77 66 78 Blood Pressure Position Blood Pressure Position [Left Arm] Blood Pressure Position [Right Arm] Lying Lying Lying Pulse Oximetry 92 94 94 Oxygen Delivery Method Room Air Room Air Room Air GENERAL: alert, well appearing, well nourished, no distress, non-toxic EYE EXAM: normal conjunctiva, PERRL and EOM's grossly intact OROPHARYNX: no exudate, no erythema, lips, buccal mucosa, and tongue normal and mucous membranes are moist NECK: supple, no nuchal rigidity, no adenopathy, non-tender LUNGS: Clear to auscultation. Normal chest wall mechanics HEART: no murmurs, S1 normal and S2 normal ABDOMEN: abdomen soft, mild suprapubic tenderness to palpation, normo-active bowel sounds, no masses, no rebound or guarding. Colostomy in left mid abdomen with brown stool in bag, mucosa well appearing BACK: Back is symmetrical on inspection and there is no deformity, no midline tenderness, no CVA tenderness. SKIN: Pale, no rashes and no bruising UPPER EXTREMITIES: upper extremities are grossly normal. LOWER EXTREMITIES: No pitting edema. NEURO EXAM: Normal sensorium, cranial nerves II-XII grossly intact, normal speech, no gross weakness of arms, no gross weakness of legs. Course 1727: Past medical records reviewed. The patient was evaluated in room B05, and a complete history and physical examination were performed. 1737: I reviewed the patient's past EMR which showed her urine culture was positive for enterobacter on 11/04/18. She was started on Cefepime IV, but following an ID consult she was changed to Ertapenum and completed a 5 day course of that on 11/14/18. Since then she has been on 500mg of Keflex BID. 1929: I reevaluated the patient and she reports still feeling nauseous. I also updated her on results. 1934: I spoke to Dr. Dave [facility] Hospitalist about the patient's case and she is going to accept her for further evaluation. Consultations Consultation #1: I spoke to Dr. Tenzin Diaz [facility] Hospitalist about the patient's case and she is going to accept her for further evaluation. Time: 19:35 Administered Medications Acetaminophen (Tylenol) 650 mg PO Q4H PRN PRN Reason: pain/fever Stop: 12/21/18 22:15 Last Admin: 11/22/18 15:51 Dose: 650 mg Aspirin (Ecotrin Ectab) 81 mg PO [facility] Stop: 12/22/18 08:59 Last Admin: 11/22/18 09:16 Dose: 81 mg Clopidogrel Bisulfate (Plavix) 75 mg PO [facility] Stop: 12/22/18 08:59 Last Admin: 11/22/18 09:17 Dose: 75 mg [facility]) [facility] Stop: 12/22/18 08:59 Last Admin: 11/22/18 09:18 Dose: 30 mg Duloxetine HCl (Cymbalta) [facility] Stop: 12/22/18 08:59 Last Admin: 11/22/18 09:17 Dose: 60 mg Gabapentin (Neurontin) 300 mg PO TID [facility] Stop: 12/21/18 20:59 Last Admin: 11/22/18 12:58 Dose: 300 mg Admin: 11/22/18 09:17 Dose: 300 mg Admin: 11/21/18 23:33 Dose: 300 mg Hydroxychloroquine Sulfate (Plaquenil) 300 mg PO [facility] Stop: 12/22/18 08:59 Last Admin: 11/22/18 09:18 Dose: 300 mg Sodium Chloride (Nss 1000ml) 1,000 mls @ 80 mls/hr IV .[id number] [facility] Stop: 12/21/18 22:44 Last Admin: 11/22/18 12:02 Dose: 80 mls/hr Infusion: 11/22/18 12:02 Dose: 80 mls/hr Admin: 11/21/18 23:49 Dose: 80 mls/hr Levothyroxine Sodium (Synthroid) 88 mcg PO DAILYBB [facility] Stop: 12/22/18 06:29 Last Admin: 11/22/18 06:05 Dose: 88 mcg Midodrine (Proamatine) 5 mg PO TID@0800,1200,1700 [facility] Stop: 12/22/18 07:59 Last Admin: 11/22/18 12:58 Dose: 5 mg Admin: 11/22/18 09:18 Dose: 5 mg Oxycodone HCl (Roxicodone Immediate Rel) 10 mg PO BID [facility] Stop: 12/05/18 20:59 Last Admin: 11/22/18 09:16 Dose: 10 mg Admin: 11/21/18 23:33 Dose: 10 mg Potassium Chloride (Klor-Con Pwd) 20 meq PO BID [facility] Stop: 12/21/18 20:59 Last Admin: 11/22/18 09:17 Dose: 20 meq Admin: 11/21/18 23:34 Dose: 20 meq Prazosin HCl (Prazosin Hcl) 1 mg PO HS [facility]EE Stop: 12/21/18 20:59 Last Admin: 11/21/18 23:29 Dose: 1 mg Prednisone (Prednisone) 10 mg PO QAM [facility] Stop: 12/22/18 08:59 Last Admin: 11/22/18 09:17 Dose: 10 mg Quetiapine Fumarate (Seroquel Xr) 150 mg PO HS [facility]EE Stop: 12/21/18 20:59 Last Admin: 11/21/18 23:48 Dose: 150 mg Saccharomyces Boulardii (Florastor) 250 mg PO DAILY [facility] Stop: 12/22/18 08:59 Last Admin: 11/22/18 09:17 Dose: 250 mg Discontinued Medications Ertapenem 1,000 mg/ Syringe 10 mls @ 2 mls/min IV NOW STA Stop: 11/21/18 19:07 Last Admin: 11/21/18 20:01 Dose: 2 mls/min Sodium Chloride (Nss 1000ml) 1,000 mls @ 250 mls/hr IV .Q4H [facility]EE Stop: 12/21/18 19:59 Last Infusion: 11/21/18 23:55 Dose: 0 mls/hr Admin: 11/21/18 20:01 Dose: 250 mls/hr Ioversol (Optiray 320 100ml) 119 ml IV ONCE PRN PRN Reason: Interaction Checking Stop: 11/25/18 20:25 Last Admin: 11/21/18 20:27 Dose: 119 ml Pantoprazole Sodium (Protonix) 40 mg PO BID MEE Stop: 12/21/18 20:59 Last Admin: 11/21/18 23:55 Dose: Not Given Quetiapine Fumarate (Seroquel Xr) 150 mg PO HS [facility]EE Stop: 12/21/18 20:59 Last Admin: 11/21/18 23:55 Dose: Not Given Medical Decision Making Differential Diagnosis Differential Diagnosis includes but is not limited to dehydration, stroke, anemia, hypoglycemia, hyponatremia, hypernatremia, urinary tract infection, pneumonia, bronchitis, sepsis, gastroenteritis, additional abdominal pathology, metabolic abnormalities and infections. Medical Records Attestation: I reviewed the patient's medical records. Home Medications Current Medication List: was personally reviewed by me Laboratory Data Attestation: I reviewed the patient's lab results. Result diagrams: 11/22/18 06:45 11/22/18 06:45 Lab Results 11/21/18 11/21/18 11/21/18 Range/Units 18:41 18:41 18:44 WBC 16.32 H (4.8-10.8) K/uL RBC 3.35 L (4.2-5.4) M/uL Hgb 9.9 L (12.0-16.0) g/dL Hct 31.8 L (37-47) % MCV 94.9 (80-100) fL MCH 29.6 (25-34) pg MCHC 31.1 L (32-36) g/dL RDW Std Deviation 53.1 H (36.4-46.3) fL RDW Coeff of Omar 15.4 H (11.5-14.5) % Plt Count 323 (130-400) K/uL MPV 9.6 (7.4-10.4) fL Immature Gran % (Auto) 0.9 % Neut % (Auto) 76.0 % Lymph % (Auto) 13.7 % [place] % (Auto) 8.2 % Eos % (Auto) 0.8 % Baso % (Auto) 0.4 % Immature Gran # (Auto) 0.15 H (0.00-0.02) K/uL Neut # (Auto) 12.40 H (1.4-6.5) K/uL Lymph # (Auto) 2.24 (1.2-3.4) K/uL [place] # (Auto) 1.34 H (0.11-0.59) K/uL Eos # (Auto) 0.13 (0-0.5) K/uL Baso # (Auto) 0.06 (0-0.2) K/uL Sodium 139 (136-145) mmol/L Potassium 4.3 (3.5-5.1) mmol/L Chloride 102 (98-107) mmol/L Carbon Dioxide 28 (21-32) mmol/L Anion Gap 9.0 (3-11) BUN 20 H (7-18) mg/dl Creatinine 1.27 H (0.6-1.2) mg/dl Est Cr Clr Drug Dosing Not Reportable Est GFR ( Amer) 44.6 Est GFR (Non-Af Amer) 38.5 BUN/Creatinine Ratio 15.7 (10-20) Glucose 99 (70-99) mg/dl POC Glucose (70-99) POC Lactic Acid Woodrow (0.90-1.70) mmol/L Calcium 9.0 (8.5-10.1) mg/dl Magnesium 2.3 (1.8-2.4) mg/dl Total Bilirubin 0.2 (0.2-1) mg/dl AST 16 (15-37) U/L ALT 23 (12-78) U/L Alkaline Phosphatase 84 (45-117) U/L Troponin I < 0.015 (0-0.045) ng/ml Total Protein 7.0 (6.4-8.2) gm/dl Albumin 3.1 L (3.4-5.0) gm/dl Globulin 3.9 (2.5-4.0) gm/dl Albumin/Globulin Ratio 0.8 L (0.9-2) Lipase 80 (73-393) U/L TSH 1.050 (0.300-4.500) uIu/ml Urine Color Yellow Urine Appearance Clear (Clear) Urine pH 6.5 (4.5-7.5) Ur Specific Todd 1.017 (1.000-1.030) Urine Protein Negative (Negative) Urine Glucose (UA) Negative (Negative) Urine Ketones Negative (Negative) Urine Blood Negative (Negative) Urine Nitrite Negative (Negative) Urine Bilirubin Negative (Negative) Urine Urobilinogen Negative (Negative) Ur Leukocyte Esterase 1+ H (Negative) Urine WBC (Auto) 5-10 H (0-5) /hpf Urine RBC (Auto) 0-4 (0-4) /hpf U Hyaline Cast (Auto) 0 (0-5) /lpf U Epithel Cells (Auto) >30 H (0-5) /lpf Urine Bacteria (Auto) 1+ H (Negative) 11/21/18 11/22/18 11/22/18 Range/Units 19:42 06:45 06:45 WBC 10.15 (4.8-10.8) K/uL RBC 3.15 L (4.2-5.4) M/uL Hgb 9.2 L (12.0-16.0) g/dL Hct 30.0 L (37-47) % MCV 95.2 (80-100) fL MCH 29.2 (25-34) pg MCHC 30.7 L (32-36) g/dL RDW Std Deviation 53.1 H (36.4-46.3) fL RDW Coeff of Omar 15.4 H (11.5-14.5) % Plt Count 259 (130-400) K/uL MPV 8.9 (7.4-10.4) fL Immature Gran % (Auto) 0.6 % Neut % (Auto) 59.7 % Lymph % (Auto) 26.1 % [place] % (Auto) 9.7 % Eos % (Auto) 3.5 % Baso % (Auto) 0.4 % Immature Gran # (Auto) 0.06 H (0.00-0.02) K/uL Neut # (Auto) 6.06 (1.4-6.5) K/uL Lymph # (Auto) 2.65 (1.2-3.4) K/uL [place] # (Auto) 0.98 H (0.11-0.59) K/uL Eos # (Auto) 0.36 (0-0.5) K/uL Baso # (Auto) 0.04 (0-0.2) K/uL Sodium 139 (136-145) mmol/L Potassium 3.6 D (3.5-5.1) mmol/L Chloride 108 H (98-107) mmol/L Carbon Dioxide 27 (21-32) mmol/L Anion Gap 4.0 (3-11) BUN 17 (7-18) mg/dl Creatinine 1.13 (0.6-1.2) mg/dl Est Cr Clr Drug Dosing 33.9 Est GFR ( Amer) 51.3 Est GFR (Non-Af Amer) 44.3 BUN/Creatinine Ratio 14.7 (10-20) Glucose 100 H (70-99) mg/dl POC Glucose (70-99) POC Lactic Acid Woodrow 2.41 H (0.90-1.70) mmol/L Calcium 8.1 L (8.5-10.1) mg/dl Magnesium (1.8-2.4) mg/dl Total Bilirubin (0.2-1) mg/dl AST (15-37) U/L ALT (12-78) U/L Alkaline Phosphatase (45-117) U/L Troponin I (0-0.045) ng/ml Total Protein (6.4-8.2) gm/dl Albumin (3.4-5.0) gm/dl Globulin (2.5-4.0) gm/dl Albumin/Globulin Ratio (0.9-2) Lipase (73-393) U/L TSH (0.300-4.500) uIu/ml Urine Color Urine Appearance (Clear) Urine pH (4.5-7.5) Ur Specific Todd (1.000-1.030) Urine Protein (Negative) Urine Glucose (UA) (Negative) Urine Ketones (Negative) Urine Blood (Negative) Urine Nitrite (Negative) Urine Bilirubin (Negative) Urine Urobilinogen (Negative) Ur Leukocyte Esterase (Negative) Urine WBC (Auto) (0-5) /hpf Urine RBC (Auto) (0-4) /hpf U Hyaline Cast (Auto) (0-5) /lpf U Epithel Cells (Auto) (0-5) /lpf Urine Bacteria (Auto) (Negative) 11/22/18 11/22/18 11/22/18 Range/Units 07:49 11:25 16:48 WBC (4.8-10.8) K/uL RBC (4.2-5.4) M/uL Hgb (12.0-16.0) g/dL Hct (37-47) % MCV (80-100) fL MCH (25-34) pg MCHC (32-36) g/dL RDW Std Deviation (36.4-46.3) fL RDW Coeff of Omar (11.5-14.5) % Plt Count (130-400) K/uL MPV (7.4-10.4) fL Immature Gran % (Auto) % Neut % (Auto) % Lymph % (Auto) % [place] % (Auto) % Eos % (Auto) % Baso % (Auto) % Immature Gran # (Auto) (0.00-0.02) K/uL Neut # (Auto) (1.4-6.5) K/uL Lymph # (Auto) (1.2-3.4) K/uL [place] # (Auto) (0.11-0.59) K/uL Eos # (Auto) (0-0.5) K/uL Baso # (Auto) (0-0.2) K/uL Sodium (136-145) mmol/L Potassium (3.5-5.1) mmol/L Chloride (98-107) mmol/L Carbon Dioxide (21-32) mmol/L Anion Gap (3-11) BUN (7-18) mg/dl Creatinine (0.6-1.2) mg/dl Est Cr Clr Drug Dosing Est GFR ( Amer) Est GFR (Non-Af Amer) BUN/Creatinine Ratio (10-20) Glucose (70-99) mg/dl POC Glucose 105 H 127 H 152 H (70-99) POC Lactic Acid [place] (0.90-1.70) mmol/L Calcium (8.5-10.1) mg/dl Magnesium (1.8-2.4) mg/dl Total Bilirubin (0.2-1) mg/dl AST (15-37) U/L ALT (12-78) U/L Alkaline Phosphatase (45-117) U/L Troponin I (0-0.045) ng/ml Total Protein (6.4-8.2) gm/dl Albumin (3.4-5.0) gm/dl Globulin (2.5-4.0) gm/dl Albumin/Globulin Ratio (0.9-2) Lipase (73-393) U/L TSH (0.300-4.500) uIu/ml Urine Color Urine Appearance (Clear) Urine pH (4.5-7.5) Ur Specific Todd (1.000-1.030) Urine Protein (Negative) Urine Glucose (UA) (Negative) Urine Ketones (Negative) Urine Blood (Negative) Urine Nitrite (Negative) Urine Bilirubin (Negative) Urine Urobilinogen (Negative) Ur Leukocyte Esterase (Negative) Urine WBC (Auto) (0-5) /hpf Urine RBC (Auto) (0-4) /hpf U Hyaline Cast (Auto) (0-5) /lpf U Epithel Cells (Auto) (0-5) /lpf Urine Bacteria (Auto) (Negative) Imaging Data Radiologist's Impression: Radiology results as stated below per my review and the radiologist's interpretation: CT SCAN OF THE ABDOMEN AND PELVIS WITH IV CONTRAST CLINICAL HISTORY: Lower abdominal pain. COMPARISON STUDY: Prior abdominal CT scans, most recently dated 08/31/2018. TECHNIQUE: Following the IV administration of 119 cc of Optiray 320, CT scan of the abdomen and pelvis is performed from the lung bases to the proximal femora. Images are reviewed in the axial, sagittal, and coronal planes. IV contrast was administered without complication. A dose lowering technique was utilized adhering to the principles of ALARA. The examination is degraded by streak artifact from the arms which could not be elevated above the abdomen. The examination is also degraded by motion artifact. CT DOSE: 449.34 mGy.cm FINDINGS: Lung bases: The heart is normal in size and without pericardial effusion. The coronary arteries mitral annulus are densely calcified. The lung bases are clear noting bibasilar scarring/atelectasis. There is a small hiatal hernia. Liver: The contrast-enhanced liver is enlarged, measuring 20.3 cm in length. The liver demonstrates diffusely diminished attenuation consistent with hepatic steatosis. There is minimal central Intrahepatic biliary ductal dilatation. The hepatic veins and portal veins are patent. Gallbladder: Surgically absent noting clips in the gallbladder fossa. Spleen: Normal in size and attenuation. Pancreas: Atrophic and grossly unremarkable. Adrenal glands: Unremarkable. Kidneys: The contrast enhanced kidneys demonstrate cortical atrophy and are without hydronephrosis. The kidneys enhance symmetrically. There are numerous small bilateral nonobstructing renal calculi as which measure up to 5 mm. Abdominal vasculature: The abdominal aorta is normal in course and caliber noting advanced atherosclerotic calcification. Bowel: There are postoperative changes from sigmoid colon resection and left lower quadrant colostomy and Nevarez pouch formation. There is a fat-containing parastomal hernia. No bowel obstruction is seen. There is moderate diverticulosis of the remaining colon. There is faint inflammatory change identified around a diverticulum at the splenic flexure (best seen on axial image #92) consistent with mild acute diverticulitis. There is no evidence of abscess. The appendix is well-visualized and normal. Peritoneum: There is no intraperitoneal free air or abdominal ascites. There is a fat-containing umbilical hernia. There is asymmetric atrophy of the left iliopsoas musculature as compared the right. Lymphadenopathy: None. Pelvic viscera: Evaluation of the pelvis is degraded by streak artifact from bilateral hip arthroplasties. The bladder is normal as visualized. The uterus is surgically absent. No adnexal lesion is seen. Skeletal structures: The skeletal structures are osteopenic. No lytic or blastic lesions are seen. There is moderate lumbosacral spondylosis. Sclerotic degenerative change is noted in the sacroiliac joints. There are bilateral hip arthroplasties. There are healed right pubic ring fractures as well as healed left-sided rib fractures. IMPRESSION: 1. There is moderate colonic diverticulosis with evidence of mild acute diverticulitis at the splenic flexure. 2. No intraperitoneal free air or abscess is identified. 3. There are postoperative changes from sigmoid colon resection and left lower quadrant colostomy. No bowel obstruction is seen. 4. There are numerous bilateral nonobstructing renal calculi. 5. Hepatomegaly and hepatic steatosis. 6. Additional findings as above. Electronically signed by: Bennett Huertas M.D. 11/21/2018 8:55 PM ECG Data Attestation: I personally reviewed and interpreted this ECG as follows: Indication: weakness Rate (beats per minute): 98 Rhythm: normal sinus Findings: + other (Normal intervals and axis, flatten T wave in lead 3, low voltage); no PAC and no PVC Blood Pressure Blood Pressure Findings: Low blood pressure Blood Pressure Disposition: further management by hospitalist GRACE Narrative Patient with complicated history of recurrent urinary tract infections as well as prior sepsis presenting again with evolving symptoms to her similar to prior episodes. Patient recently finished 5-day course of IV ertapenem and resumed her usual oral Keflex that she takes prophylactically. Upon completion of the ertapenem and change to oral antibiotics, patient began to experience subjective fevers and chills, weakness, abdominal pain, and poor appetite again. Given suspicion for possible evolving UTI, pyelonephritis, bacteremia, labs performed. Prior urine culture reviewing showed Enterobacter. Given culture and sensitivities, patient restarted on ertapenem. Another UA and culture were sent as well as blood cultures and a [id number] lactic acid due to patient's leukocytosis noted here. Patient afebrile here and hemodynamically stable. Patient was started on gentle IV fluid hydration. At this time I do not suspect bacteremia/sepsis, although patient is at an increased risk and has previously been septic from a urinary infection. Upon discussing the case with the hospitalist for additional evaluation and management, discussed with them consideration for CT of the abdomen and pelvis given significant history and concern for this recurrence shortly after what seemed to be a successful treatment of her infection. They were in agreement with the plan for the CT and this was performed and also revealed acute diverticulitis. Given she was given dose of ertapenem, this should also cover for the diverticulitis in the interim until additional cultures and sensitivities are potentially resulted. Hospitalist was made aware of the CT findings as I had already placed admitting orders initially. Impression & Plan Urinary tract infection, Abdominal pain, lower, Generalized weakness, Diverticulitis, Anemia Discharge Plan Visit Data *Final* Discharge Date/Time: 11/21/18 21:48 Chief Complaint: Urinary Symptoms Stated Complaint: URINARY FREQUENCY, PAIN ED Provider: Teodora Jimenez Discharge Problem: Urinary tract infection, Abdominal pain, lower, Generalized weakness, Diverticulitis, Anemia Patient Disposition: Admitted As Inpatient Discharge Instructions Interventions: ED Discharge Assessment Last Done: 11/21/18 21:48 The scribe's documentation has been prepared under my direction and personally reviewed by me in its entirety. I confirm that the note above accurately reflects all work, treatment, procedures, and medical decision making performed by me.
[2018-11-22] MEDS: ERTAPENEM SODIUM 1,000 MG in SODIUM CHLORIDE 0.9% 50 ML IV SCH (17:26)
[2018-11-22] MEDS: PRAZOSIN HCL 1 MG CAP PO SCH (20:19)
[2018-11-22] MEDS: QUETIAPINE FUMARATE 50 MG TABCR PO SCH (20:21)
[2018-11-22 23:09] LABS: Cdiff Antigen Positive; Cdiff Toxin A+B Negative (Negative)
[2018-11-23] MEDS: SODIUM CHLORIDE 0.9% 1000ML 1,000 ML IV SCH ×2 (01:08→12:21)
[2018-11-23] MEDS: LEVOTHYROXINE SODIUM 88 MCG TABLET PO SCH (05:58)
[2018-11-23 06:26] LABS: Hematocrit (blood only) 28.4 % (37-47); Hemoglobin 8.8 g/dL (12.0-16.0); Mean Platelet Volume 9.1 fL (7.4-10.4); Platelet Count 244 K/uL (130-400); RDW Coefficient of Variation 15.3 % (11.5-14.5); RDW Standard Deviation 52.7 fL (36.4-46.3); Red Blood Count 2.99 M/uL (4.2-5.4); White Blood Count 10.32 K/uL (4.8-10.8)
[2018-11-23 06:59] LABS: BUN Creatinine Ratio 16.3 (10-20); Calcium 7.9 mg/dl (8.5-10.1); Creatinine Clr Calc Pharmacy 38.3 ml/min; Est GFR (African American) 59.5; Est GFR (Non-African American) 51.3; Magnesium 2.3 mg/dl (1.8-2.4); Potassium 3.8 mmol/L (3.5-5.1)
[2018-11-23] MEDS: ASPIRIN 81 MG ECTAB PO SCH (08:22)
[2018-11-23] MEDS: DULOXETINE HCL 60 MG CAP PO SCH (08:22)
[2018-11-23] MEDS: GABAPENTIN 300 MG CAP PO SCH ×3 (08:22→21:28)
[2018-11-23] MEDS: predniSONE 10 MG TABLET PO SCH (08:22)
[2018-11-23] MEDS: CLOPIDOGREL BISULFATE 75 MG TAB PO SCH (08:22)
[2018-11-23] MEDS: POTASSIUM CHLORIDE PWD 20 MEQ PACK PO SCH ×2 (08:23→21:28)
[2018-11-23] MEDS: MIDODRINE HCL 2.5 MG TAB PO SCH ×3 (08:23→18:00)
[2018-11-23] MEDS: DULOXETINE HCL 30 MG CAP PO SCH (08:23)
[2018-11-23] MEDS: HYDROXYCHLOROQUINE SULFATE 200 MG TAB PO SCH (08:23)
[2018-11-23] MEDS: OXYCODONE HCL IR 5 MG TAB (IMMEDIATE RELEASE) PO SCH ×2 (08:35→21:27)
[2018-11-23] MEDS: SACCHAROMYCES BOULARDII 250 MG CAP PO SCH (08:35)
[2018-11-23] MEDS ORDERED: CONSULT PHARMACY PRN (09:12)
[2018-11-23] MEDS: DAPTOmycin 325 MG in SYRINGE 0 ML IV SCH (10:27)
--- NOTE | 2018-11-23 14:48 | Infectious Disease Progress Nt ---
Date of Service November 23, 2018 Assessment & Plan (1) Diverticulitis: ua with min wbc, >30 ep cells, ? contaminated. will continue ertapenem pending cultures for diverticulitis. will need 14 days total. agree with Dapto, would give 3 days total. Subjective pt afebrile. blood cultures negative, stool cultures pending. remains on ertapenem. urine culture now growing VRE. placed on dapto. tolerating well. Physical Exam 2 Vital Signs (Past 24 Hours): Last Vital Signs Temp 36.8 C 11/23/18 14:29 Pulse 90 11/23/18 14:29 Resp 18 11/23/18 14:29 BP 122/70 11/23/18 14:29 Pulse Ox 93 11/23/18 14:29 Results & Data Laboratory Results Microbiology 11/22/18 19:30 Stool Escherichia coli Shiga Toxins - Preliminary 11/22/18 19:30 Stool Stool Culture - Preliminary No Salmonella isolated to date, No Shigella isolated to date, No Campylobacter jejuni isolated to date. 11/21/18 18:44 Urine,Clean Catch Urine Culture - Final Enterococcus faecium VRE 11/21/18 19:44 Blood Blood Culture - Preliminary No growth to date. 11/21/18 19:55 Blood Blood Culture - Preliminary No growth to date.
--- NOTE | 2018-11-23 14:55 | CT Scan Report ---
CT SCAN OF THE BRAIN WITHOUT IV CONTRAST CLINICAL HISTORY: Left-sided weakness. COMPARISON STUDY: CT of the brain dated 09/26/2018. TECHNIQUE: Unenhanced axial CT scan of the brain is performed from the vertex to the skull base. A do se lowering technique was utilized adhering to the principles of ALARA. CT DOSE: 537.48 mGy.cm FINDINGS: Brain parenchyma: There are age-related involutional changes noting moderate subcortical and periven tricular microangiopathic change. There is no hemorrhage, mass effect, or evidence of acute territori al ischemia by CT criteria. Dubose-white matter differentiation is preserved. No extra-axial fluid alessia ection is seen. Ventricles, sulci, cisterns: Prominent secondary to involutional change. Intracranial vasculature: There is atherosclerotic calcification of the cavernous carotid and vertebr al arteries. Calvarium: Unremarkable. Sinuses and mastoids: The visualized paranasal sinuses are clear. The mastoid air cells are well pneu matized. Orbits: The bony orbits are grossly intact. There are bilateral ocular lens implants. IMPRESSION: There is no hemorrhage, mass effect, or evidence of acute territorial ischemia by CT itz polo. Electronically signed by: Bennett Huertas M.D. 11/23/2018 2:54 PM
--- NOTE | 2018-11-23 16:13 | Hospitalist Progress Note ---
Addendum entered and electronically signed by Denise Pinto PA-C 11/23/18 18:26: Addendum (Blank) Addendum November 23, 2018 18:24 Discussed left sided facial drooping, weakness with her daughter. She states that patient does not have a h/o stroke or left sided facial changes. Onset of symptoms/signs are unclear -- I rounded on her around 1 pm this afternoon. Will follow up on imaging studies, including brain MRI, MRA of head/neck and TTE. Discussed with overnight resident, will follow up on studies. Original Note: Date of Service November 23, 2018 Assessment & Plan (1) Diverticulitis: - Presented with abdominal pain and lethargy; CT A/P showed mild acute diverticulitis at the splenic flexure. 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 - Ertapenem 1 gm IV q24hr due to h/o MDR and multiple allergies (end date: ) - ID consulted, appreciate input. - On probiotic daily due to frequent use of IV & PO abx. (2) Recurrent UTI: - H/o recurrent UTIs; most recently admitted 11/07-11/11 for Pseudomonas UTI requiring IV Ertapenem course. 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 - Start Daptomycin, will need 3 day course (end date: 11/25/18) - H/o colovesicular fistula; is scheduled for follow up with urology on 11/25/18 and cystoscopy on 12/12/18. - Urology consulted as inpatient. - Previously on Keflex ppx; will need to discuss resuming med at discharge with ID. (3) Left-sided weakness: - Developed new left sided facial droop with left sided weakness (+3/5 upper and lower body strength on exam) - CT of head was negative. - Currently on Plavix/Aspirin due to h/o CAD; does not take statin at home. - Will initiate stroke protocol and consult neuro. - MR angiogram of head/neck, carotid US and TTE pending completion. - PT/OT ordered for evaluation. - Lipid panel in AM; most recent Hgb A1C was 6.0 in Oct 2018. (4) Stage III chronic kidney disease: - Renally dose all meds. - Creatinine currently at baseline. - Hold IVFs. (5) Nephrolithiasis: - Noted on imaging; has discussed with urology, pt. declined further treatment. (6) SLE (systemic lupus erythematosus): - Continue Plaquenil and Prednisone as prescribed. (7) Rheumatoid arthritis: - Continue Plaquenil and Prednisone as prescribed. - Will need to start stress dose steroids if hypotensive. - Oxycodone 10 mg BID scheduled with Tylenol prn pain. (8) Chronic diastolic heart failure: - TTE 2011: grade I diastolic dysfunction, EF 60-65%. - Monitor for fluid overload. (9) Peripheral artery disease: - Continue Plavix and Aspirin. (10) Hypothyroid: TSH normal here at 1.5 - Continue Synthroid as prescribed. (11) Chronic anemia: - Hemoglobin baseline ~9.5-10.5. - Iron panel consistent with anemia of chronic disease. B12 and Folate recently checked and normal - Monitor CBC qAM. (12) Orthostatic hypotension: - H/o orthostasis and vasovagal syncope. - Continue Midodrine 5 mg TID. - Hold IVFs. (13) Neuropathy: - Continue Gabapentin and Cymbalta as prescribed. (14) Mood disorder: - Continue Seroquel 150 mg qhs as prescribed. (15) Chronic respiratory failure: - Usually requires 3L at home; has been stable on room air. 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 diff gene was positive; toxin is negative. - No indication for treatment. (17) Prediabetes: - Hemoglobin A1C was 6.0 on 11/04/18. - Encourage weight loss, carb consistent diet. (18) DVT prophylaxis: - SCDs; Pt. has large hematoma on abdomen from prior lovenox use, will hold for now. Dispo: Med/surg for IV abx in setting of diverticulitis and VRE UTI. Supervising Physician Co-Signing Physician Notes PA Supervision Note: I did not personally see or examine the patient today, but I verified all amaro points of GREGORY Pinto's assessment and plan with the following exceptions/ additions: None Subjective Pt. is stable overall. She complains of lower abdominal pain. Has had limited output from ostomy bag over last 24 hours. Has mild dysuria, developed over last day or so. Pt. also has a new left sided eye droop and left sided weakness. Denies unilateral weakness, slurred speech. CT of head was negative; low threshold to consider brain MRI. UC was +VRE; started Daptomycin. Continue Ertapenem for diverticulitis. Review of Systems All systems reviewed & are unremarkable except as noted in HPI & below Constitutional: + weakness; no fever and no chills Respiratory: no cough and no dyspnea Cardiovascular: no chest pain, no palpitations and no edema Gastrointestinal: + abdominal pain and + constipation; no nausea, no vomiting and no diarrhea/loose stools Genitourinary (Female): + dysuria; no difficulty urinating, no urinary frequency and no hematuria Musculoskeletal: no joint pain Allergy / Immunological: no rash Physical Exam 2 Vital Signs (Past 24 Hours): Last Vital Signs Temp 36.8 C 11/23/18 14:29 Pulse 90 11/23/18 14:29 Resp 18 11/23/18 14:29 BP 122/70 11/23/18 14:29 Pulse Ox 93 11/23/18 14:29 Physical Exam: General: Resting comfortably in no apparent distress HEENT: NC/AT; Left sided eye and facial droop noted. Tongue protrudes midline. Neck: Supple and nontender Cardiac: RRR w/o murmurs, gallops or rubs Lungs: CTA bilaterally; No rhonchi, wheezing, or rales Abdomen: Colostomy with minimal output; tenderness to palpation over lower abdomen. Extremities: Warm. No edema present Neuro: +4/5 right upper and lower muscle strength; +2-3/5 left upper and lower muscle strength. No other neurological deficits noted. Skin: No rash Results & Data Laboratory Results 11/23/18 11/23/18 11/23/18 Range/Units 07:45 06:17 06:17 WBC 10.32 (4.8-10.8) K/uL RBC 2.99 L (4.2-5.4) M/uL Hgb 8.8 L (12.0-16.0) g/dL Hct 28.4 L (37-47) % MCV 95.0 (80-100) fL MCH 29.4 (25-34) pg MCHC 31.0 L (32-36) g/dL RDW Std Deviation 52.7 H (36.4-46.3) fL RDW Coeff of Omar 15.3 H (11.5-14.5) % Plt Count 244 (130-400) K/uL MPV 9.1 (7.4-10.4) fL Sodium 143 (136-145) mmol/L Potassium 3.8 (3.5-5.1) mmol/L Chloride 110 H (98-107) mmol/L Carbon Dioxide 26 (21-32) mmol/L Anion Gap 7.0 (3-11) BUN 16 (7-18) mg/dl Creatinine 1.00 (0.6-1.2) mg/dl Est Cr Clr Drug Dosing 38.3 ml/min Est GFR ( Amer) 59.5 Est GFR (Non-Af Amer) 51.3 BUN/Creatinine Ratio 16.3 (10-20) Glucose 103 H (70-99) mg/dl POC Glucose 110 H (70-99) Calcium 7.9 L (8.5-10.1) mg/dl Magnesium 2.3 (1.8-2.4) mg/dl Stl C. diff Tox B Gene (Neg) Stl C.difficile Tox A&B (Negative) 11/22/18 11/22/18 11/22/18 Range/Units 20:16 19:30 16:48 WBC (4.8-10.8) K/uL RBC (4.2-5.4) M/uL Hgb (12.0-16.0) g/dL Hct (37-47) % MCV (80-100) fL MCH (25-34) pg MCHC (32-36) g/dL RDW Std Deviation (36.4-46.3) fL RDW Coeff of Omar (11.5-14.5) % Plt Count (130-400) K/uL MPV (7.4-10.4) fL Sodium (136-145) mmol/L Potassium (3.5-5.1) mmol/L Chloride (98-107) mmol/L Carbon Dioxide (21-32) mmol/L Anion Gap (3-11) BUN (7-18) mg/dl Creatinine (0.6-1.2) mg/dl Est Cr Clr Drug Dosing ml/min Est GFR ( Amer) Est GFR (Non-Af Amer) BUN/Creatinine Ratio (10-20) Glucose (70-99) mg/dl POC Glucose 137 H 152 H (70-99) Calcium (8.5-10.1) mg/dl Magnesium (1.8-2.4) mg/dl Stl C. diff Tox B Gene Pos C.diff Toxin B A (Neg) Stl C.difficile Tox A&B Negative (Negative)
[2018-11-23] MEDS ORDERED: PHARMACIST DISCHARGE MED REC CONSULT PRN (17:52)
[2018-11-23] MEDS: ERTAPENEM SODIUM 1,000 MG in SODIUM CHLORIDE 0.9% 50 ML IV SCH (18:00)
--- NOTE | 2018-11-23 19:09 | Urology Progress Note ---
Date of Service November 23, 2018 Assessment & Plan (1) Recurrent UTI: Recurrent UTI: CT imaging stable from standpoint. Bilateral nephrolithiasis stable, nonobstructing. UC&S positive for enterococcus VRE. Adding dapto. Continue management per ID. Originally planned for outpatient f/u on 11/25 then outpt cystoscopy on 12/12/18. Discussed with Dr. Buenrostro. Given the UC&S results, it is in Sheridan's best interest to complete antibiotic course prior to cystoscopy. We do not feel an inpatient cysto is necessary at this point. No further intervention required at this time. Thank you for allowing us to participate in the care of Sheridan lao. Outpatien f/u as already been arranged. Please reconsult with any additional questions, concerns or changes in patient status. Subjective Pt feeling better today. Denies suprapubic or flank pain. Denies dysuria or hematuria. Sitting up and eating dinner at time of evaluation. daughter at bedside. Offers no new complaints or issues today. Review of Systems All systems reviewed & are unremarkable except as noted in HPI & below Physical Exam 2 Vital Signs (Past 24 Hours): Last Vital Signs Temp 36.8 C 11/23/18 14:29 Pulse 90 11/23/18 14:29 Resp 18 11/23/18 14:29 BP 122/70 11/23/18 14:29 Pulse Ox 93 11/23/18 14:29 Physical Exam: A&Ox3 RRR abd soft - ostomy intact psych: good judgement Results & Data Laboratory Results Laboratory Results - last 48 hr 11/21/18 11/21/18 11/21/18 18:41 18:44 19:42 WBC RBC Hgb Hct MCV MCH MCHC RDW Std Deviation RDW Coeff of Omar Plt Count MPV Immature Gran % (Auto) Neut % (Auto) Lymph % (Auto) Wallace % (Auto) Eos % (Auto) Baso % (Auto) Immature Gran # (Auto) Neut # (Auto) Lymph # (Auto) Wallace # (Auto) Eos # (Auto) Baso # (Auto) Sodium 139 Potassium 4.3 Chloride 102 Carbon Dioxide 28 Anion Gap 9.0 BUN 20 H Creatinine 1.27 H Est Cr Clr Drug Dosing Not Reportable Est GFR ( Amer) 44.6 Est GFR (Non-Af Amer) 38.5 BUN/Creatinine Ratio 15.7 Glucose 99 POC Glucose POC Lactic Acid Woodrow 2.41 H Calcium 9.0 Magnesium 2.3 Total Bilirubin 0.2 AST 16 ALT 23 Alkaline Phosphatase 84 Troponin I < 0.015 Total Protein 7.0 Albumin 3.1 L Globulin 3.9 Albumin/Globulin Ratio 0.8 L Lipase 80 TSH 1.050 Urine Color Yellow Urine Appearance Clear Urine pH 6.5 Ur Specific [place] 1.017 Urine Protein Negative Urine Glucose (UA) Negative Urine Ketones Negative Urine Blood Negative Urine Nitrite Negative Urine Bilirubin Negative Urine Urobilinogen Negative Ur Leukocyte Esterase 1+ H Urine WBC (Auto) 5-10 H Urine RBC (Auto) 0-4 U Hyaline Cast (Auto) 0 U Epithel Cells (Auto) >30 H Urine Bacteria (Auto) 1+ H Stl C. diff Tox B Gene Stl C.difficile Tox A&B 11/22/18 11/22/18 11/22/18 06:45 06:45 07:49 WBC 10.15 RBC 3.15 L Hgb 9.2 L Hct 30.0 L MCV 95.2 MCH 29.2 MCHC 30.7 L RDW Std Deviation 53.1 H RDW Coeff of Omar 15.4 H Plt Count 259 MPV 8.9 Immature Gran % (Auto) 0.6 Neut % (Auto) 59.7 Lymph % (Auto) 26.1 Wallace % (Auto) 9.7 Eos % (Auto) 3.5 Baso % (Auto) 0.4 Immature Gran # (Auto) 0.06 H Neut # (Auto) 6.06 Lymph # (Auto) 2.65 Wallace # (Auto) 0.98 H Eos # (Auto) 0.36 Baso # (Auto) 0.04 Sodium 139 Potassium 3.6 D Chloride 108 H Carbon Dioxide 27 Anion Gap 4.0 BUN 17 Creatinine 1.13 Est Cr Clr Drug Dosing 33.9 Est GFR ( Amer) 51.3 Est GFR (Non-Af Amer) 44.3 BUN/Creatinine Ratio 14.7 Glucose 100 H POC Glucose 105 H POC Lactic Acid Woodrow Calcium 8.1 L Magnesium Total Bilirubin AST ALT Alkaline Phosphatase Troponin I Total Protein Albumin Globulin Albumin/Globulin Ratio Lipase TSH Urine Color Urine Appearance Urine pH Ur Specific [place] Urine Protein Urine Glucose (UA) Urine Ketones Urine Blood Urine Nitrite Urine Bilirubin Urine Urobilinogen Ur Leukocyte Esterase Urine WBC (Auto) Urine RBC (Auto) U Hyaline Cast (Auto) U Epithel Cells (Auto) Urine Bacteria (Auto) Stl C. diff Tox B Gene Stl C.difficile Tox A&B 11/22/18 11/22/18 11/22/18 11:25 16:48 19:30 WBC RBC Hgb Hct MCV MCH MCHC RDW Std Deviation RDW Coeff of Omar Plt Count MPV Immature Gran % (Auto) Neut % (Auto) Lymph % (Auto) Wallace % (Auto) Eos % (Auto) Baso % (Auto) Immature Gran # (Auto) Neut # (Auto) Lymph # (Auto) Wallace # (Auto) Eos # (Auto) Baso # (Auto) Sodium Potassium Chloride Carbon Dioxide Anion Gap BUN Creatinine Est Cr Clr Drug Dosing Est GFR ( Amer) Est GFR (Non-Af Amer) BUN/Creatinine Ratio Glucose POC Glucose 127 H 152 H POC Lactic Acid Woodrow Calcium Magnesium Total Bilirubin AST ALT Alkaline Phosphatase Troponin I Total Protein Albumin Globulin Albumin/Globulin Ratio Lipase TSH Urine Color Urine Appearance Urine pH Ur Specific [place] Urine Protein Urine Glucose (UA) Urine Ketones Urine Blood Urine Nitrite Urine Bilirubin Urine Urobilinogen Ur Leukocyte Esterase Urine WBC (Auto) Urine RBC (Auto) U Hyaline Cast (Auto) U Epithel Cells (Auto) Urine Bacteria (Auto) Stl C. diff Tox B Gene Pos C.diff Toxin B A Stl C.difficile Tox A&B Negative 11/22/18 11/23/18 11/23/18 20:16 06:17 06:17 WBC 10.32 RBC 2.99 L Hgb 8.8 L Hct 28.4 L MCV 95.0 MCH 29.4 MCHC 31.0 L RDW Std Deviation 52.7 H RDW Coeff of Omar 15.3 H Plt Count 244 MPV 9.1 Immature Gran % (Auto) Neut % (Auto) Lymph % (Auto) Wallace % (Auto) Eos % (Auto) Baso % (Auto) Immature Gran # (Auto) Neut # (Auto) Lymph # (Auto) Wallace # (Auto) Eos # (Auto) Baso # (Auto) Sodium 143 Potassium 3.8 Chloride 110 H Carbon Dioxide 26 Anion Gap 7.0 BUN 16 Creatinine 1.00 Est Cr Clr Drug Dosing 38.3 Est GFR ( Amer) 59.5 Est GFR (Non-Af Amer) 51.3 BUN/Creatinine Ratio 16.3 Glucose 103 H POC Glucose 137 H POC Lactic Acid Woodrow Calcium 7.9 L Magnesium 2.3 Total Bilirubin AST ALT Alkaline Phosphatase Troponin I Total Protein Albumin Globulin Albumin/Globulin Ratio Lipase TSH Urine Color Urine Appearance Urine pH Ur Specific [place] Urine Protein Urine Glucose (UA) Urine Ketones Urine Blood Urine Nitrite Urine Bilirubin Urine Urobilinogen Ur Leukocyte Esterase Urine WBC (Auto) Urine RBC (Auto) U Hyaline Cast (Auto) U Epithel Cells (Auto) Urine Bacteria (Auto) Stl C. diff Tox B Gene Stl C.difficile Tox A&B 11/23/18 11/23/18 07:45 16:42 WBC RBC Hgb Hct MCV MCH MCHC RDW Std Deviation RDW Coeff of Omar Plt Count MPV Immature Gran % (Auto) Neut % (Auto) Lymph % (Auto) Wallace % (Auto) Eos % (Auto) Baso % (Auto) Immature Gran # (Auto) Neut # (Auto) Lymph # (Auto) Wallace # (Auto) Eos # (Auto) Baso # (Auto) Sodium Potassium Chloride Carbon Dioxide Anion Gap BUN Creatinine Est Cr Clr Drug Dosing Est GFR ( Amer) Est GFR (Non-Af Amer) BUN/Creatinine Ratio Glucose POC Glucose 110 H 142 H POC Lactic Acid Woodrow Calcium Magnesium Total Bilirubin AST ALT Alkaline Phosphatase Troponin I Total Protein Albumin Globulin Albumin/Globulin Ratio Lipase TSH Urine Color Urine Appearance Urine pH Ur Specific [place] Urine Protein Urine Glucose (UA) Urine Ketones Urine Blood Urine Nitrite Urine Bilirubin Urine Urobilinogen Ur Leukocyte Esterase Urine WBC (Auto) Urine RBC (Auto) U Hyaline Cast (Auto) U Epithel Cells (Auto) Urine Bacteria (Auto) Stl C. diff Tox B Gene Stl C.difficile Tox A&B
[2018-11-23] MEDS ORDERED: LORazepam 0.5 MG/1 ML VIAL IV STA (19:20)
[2018-11-23] MEDS ORDERED: LORazepam 2 MG/4 ML VIAL ONE (19:22)
[2018-11-23] MEDS ORDERED: GADOBUTROL 65ML VIAL IV PRN (21:15)
--- NOTE | 2018-11-23 21:23 | Magnetic Resonance Report ---
MRI OF THE BRAIN WITHOUT AND WITH IV CONTRAST CLINICAL HISTORY: Evaluate for stroke. Lightheaded. Headaches. COMPARISON STUDY: MRI of the brain September 26, 2018. Head CT performed earlier today. TECHNIQUE: Utilizing a 1.5 Tamela magnet and dedicated coil, multiplanar, multiecho imaging of the br ain was performed pre and postcontrast administration. IV administration of 6.5 mL of Gadavist contr ast was uneventful. FINDINGS: There are no foci of restricted diffusion to suggest acute infarct. No acute intracranial h emorrhage, midline shift or mass effect is present. Ventricular system is stable. Basilar cisterns ar e patent. There are no extra-axial collections. There is no intracranial mass or pathologic enhanceme nt. Flow-voids for the major intracranial vessels are present. Mild white matter T2 hyperintense foci are unchanged and suggest small vessel disease. Postoperative findings within the sella are suboptim ally assessed on this exam but appear unchanged. Calvarial signal is maintained. IMPRESSION: 1. No acute intracranial findings. 2. No change in appearance of the brain. Electronically signed by: Anjel Encarnacion M.D. 11/23/2018 9:22 PM
[2018-11-23] MEDS: PRAZOSIN HCL 1 MG CAP PO SCH (21:28)
[2018-11-23] MEDS: QUETIAPINE FUMARATE 50 MG TABCR PO SCH (21:29)
--- NOTE | 2018-11-23 21:29 | Magnetic Resonance Report ---
MR angio neck wo/w con CLINICAL HISTORY: Stroke COMPARISON STUDY: CTA of the neck May 16, 2017. TECHNIQUE: Utilizing a 1.5 Tmaela magnet, multiplanar, multi echo imaging of the major vessels of the neck was performed pre and postcontrast administration. Intravenous injection of 6.5 cc of Gadavist I V was uneventful. FINDINGS: The bilateral common carotid and internal carotid arteries are patent. The left vertebral a rtery is dominant and patent. The right vertebral artery is suboptimally assessed on this exam. The r ight vertebral artery is diminutive, likely on a congenital basis. This is unchanged since CTA of May. No dissection is identified although exam is mildly compromised by motion artifact. IMPRESSION: 1. No stenosis within the bilateral common carotid and internal carotid arteries. 2. Dominant, patent left vertebral artery. 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 Electronically signed by: Anjel Encarnacion M.D. 11/23/2018 9:26 PM
--- NOTE | 2018-11-23 21:33 | Magnetic Resonance Report ---
MRA OF THE INTRACRANIAL CIRCULATION WITHOUT CONTRAST CLINICAL HISTORY: Stroke COMPARISON STUDY: CTA of the head May 16, 2017. TECHNIQUE: Utilizing a 1.5 Tamela magnet and 3-D [id number] technique, unenhanced MRA of the intra cranial circulation was obtained. FINDINGS: Right vertebral artery is diminutive. This is unchanged since CTA of May 17, 2017. Cq Developer ior circulation is intact. The bilateral M1, M2, A1 and A2 segments are patent. There is no intracran ial aneurysm. There is no abrupt vessel cut off. Appearance is unchanged since prior CTA. IMPRESSION: Unremarkable MRA of the head for age. Electronically signed by: Anjel Encarnacion M.D. 11/23/2018 9:31 PM
[2018-11-24] MEDS: LEVOTHYROXINE SODIUM 88 MCG TABLET PO SCH (05:29)
[2018-11-24 06:12] LABS: Hematocrit (blood only) 27.7 % (37-47); Hemoglobin 8.7 g/dL (12.0-16.0); Mean Corpuscular Hgb Conc 31.4 g/dL (32-36); Mean Corpuscular Volume 96.9 fL (80-100); Mean Platelet Volume 9.2 fL (7.4-10.4); Platelet Count 245 K/uL (130-400); RDW Coefficient of Variation 15.2 % (11.5-14.5); RDW Standard Deviation 53.8 fL (36.4-46.3); Red Blood Count 2.86 M/uL (4.2-5.4); White Blood Count 9.93 K/uL (4.8-10.8)
[2018-11-24 06:45] LABS: Creatinine Clr Calc Pharmacy 36.8 ml/min; Est GFR (African American) 56.7; Magnesium 2.2 mg/dl (1.8-2.4); Potassium 3.8 mmol/L (3.5-5.1)
[2018-11-24] MEDS: DULOXETINE HCL 60 MG CAP PO SCH (08:02)
[2018-11-24] MEDS: HYDROXYCHLOROQUINE SULFATE 200 MG TAB PO SCH (08:02)
[2018-11-24] MEDS: CLOPIDOGREL BISULFATE 75 MG TAB PO SCH (08:02)
[2018-11-24] MEDS: GABAPENTIN 300 MG CAP PO SCH ×3 (08:03→20:27)
[2018-11-24] MEDS: MIDODRINE HCL 2.5 MG TAB PO SCH ×3 (08:03→17:15)
[2018-11-24] MEDS: POTASSIUM CHLORIDE PWD 20 MEQ PACK PO SCH ×2 (08:03→20:26)
[2018-11-24] MEDS: ASPIRIN 81 MG ECTAB PO SCH (08:04)
[2018-11-24] MEDS: SACCHAROMYCES BOULARDII 250 MG CAP PO SCH (08:04)
[2018-11-24] MEDS: DULOXETINE HCL 30 MG CAP PO SCH (08:04)
[2018-11-24] MEDS: predniSONE 10 MG TABLET PO SCH (08:04)
[2018-11-24] MEDS: OXYCODONE HCL IR 5 MG TAB (IMMEDIATE RELEASE) PO SCH ×2 (08:14→20:26)
--- NOTE | 2018-11-24 10:40 | Neurology Consultation ---
Date of Consultation November 24, 2018 Assessment & Plan (1) Stroke-like episode: Although I do not find any focal abnormalities on this patient's current neurological examination and there is no evidence of an acute or subacute stroke on her recently completed brain MRI, she was noted to have moderate left- sided weakness by the hospitalist service yesterday. A TIA localizing to the right cerebral hemisphere cannot be excluded. This patient does have a few risk factors for stroke including advanced age, as well as a history of peripheral vascular disease, and prediabetes. Her antiplatelet therapy has been continued during her hospitalization. She does have a modestly elevated total cholesterol and does not appear to be on a statin. It may be reasonable to start a statin if she does not have a history of statin intolerance. I would also suggest potentially transferring this patient to telemetry to more closely monitor for possible atrial fibrillation. A transthoracic echocardiogram should also be obtained. History of Present Illness Reason for Consultation: Rule out stroke Requesting Physician: Denise Pinto PA-C Attending Physician: Monse Salas MD History of Present Illness The patient is an 87-year-old female who presented to the emergency department with dysuria and lethargy for the past 3 days. She has a history of recurrent urinary tract infection, chronic kidney disease, SLE/RA and bilateral nephrolithiasis. She was noted to have some left-sided weakness during her assessment with the hospitalist service yesterday prompting some concern for a possible stroke. A CT of the head completed yesterday revealed atrophy and chronic microangiopathic disease and was otherwise unremarkable. A brain MRI also revealed generalized atrophy and chronic microangiopathic disease and was negative for acute or subacute stroke. I reviewed the images as well as the radiologist interpretation of this test. MR angiography of the head and neck were unremarkable. The patient is prescribed daily low-dose aspirin and Plavix as an outpatient and these medications have been continued during her hospitalization. Her blood pressure has been intermittently modestly elevated. Electrocardiogram completed on the revealed a sinus rhythm, 98 bpm. Currently, the patient does not have any specific complaints. She denies headache, weakness, or sensory loss. She does not seem to be very aware as to why I was asked to evaluate her today. Allergies Allergy/AdvReac Type Severity Reaction Status Date / Time nitrofurantoin Allergy Severe HIVES Verified 09/26/18 14:12 scallops Allergy Severe THROAT Verified 09/26/18 14:12 SWELLS Cipro Allergy Intermediate HIVES Verified 06/03/18 16:34 ciprofloxacin Allergy Intermediate HIVES Verified 09/26/18 14:12 latex Allergy Intermediate RASH Verified 09/26/18 14:12 Quinolones Allergy Intermediate HIVES Verified 09/26/18 14:12 fluticasone Allergy Unknown ADVAIR-UNKN Verified 09/26/18 14:12 OWN salmeterol Allergy Unknown ADVAIR Verified 09/26/18 14:12 celecoxib AdvReac Intermediate barretts Verified 09/26/18 14:12 esophagus lactose AdvReac Intermediate GI UPSET Verified 09/26/18 14:12 morphine AdvReac Intermediate NAUSEA AND Verified 09/26/18 14:12 VOMITING Home Medications Home Medications Medication Instructions Recorded Confirmed Type ascorbic acid (vitamin C) 500 mg 500 mg PO QAM 07/07/18 11/21/18 History tablet aspirin 81 mg tablet,delayed 81 mg PO QAM 07/07/18 11/21/18 History release cholecalciferol (vitamin D3) 2,000 2,000 units PO QAM 07/07/18 11/21/18 History unit capsule fexofenadine 60 mg tablet 60 mg PO DAILY PRN tab 07/07/18 11/21/18 History furosemide 20 mg tablet 20 mg PO DAILY PRN 07/07/18 11/21/18 History hydroxychloroquine 200 mg tablet 300 mg PO QAM tab 07/07/18 11/21/18 History levothyroxine 88 mcg tablet 88 mcg PO QAM 07/07/18 11/21/18 History nitroglycerin 0.4 mg sublingual 0.4 mg SL Q5M PRN #1 tab 07/07/18 11/21/18 Rx tablet clopidogrel [Plavix] 75 mg PO QAM 08/10/18 11/21/18 History diclofenac sodium [Voltaren] 4 gm TOP QID PRN MDD 16G 08/10/18 11/21/18 History duloxetine [Cymbalta] 60 mg PO QAM 08/10/18 11/21/18 History fluticasone [Flonase Allergy 2 spray INTRANASAL DAILY PRN 08/10/18 11/21/18 History Relief] lidocaine 1 applic TOPICAL QID PRN 08/10/18 11/21/18 History ondansetron HCl [Zofran] 8 mg PO Q6 PRN 08/10/18 11/21/18 History potassium chloride 20 meq PO BID 08/10/18 11/21/18 History cyanocobalamin (vitamin B-12) 1,000 mcg PO QAM 08/31/18 11/21/18 History [Vitamin B-12] oxycodone 10 mg PO BID 08/31/18 11/21/18 History quetiapine [Seroquel XR] 150 mg PO HS 08/31/18 11/21/18 History vit A,C and P-iozoue-vkkilocq 1 tab PO QAM 08/31/18 11/21/18 History [Ocuvite with Lutein] gabapentin 300 mg PO TID 09/26/18 11/21/18 History polyethylene glycol 3350 [Miralax] 17 gm PO QAM 09/26/18 11/21/18 History vitamin B complex 1 tab PO QAM 09/26/18 11/21/18 History dexlansoprazole [Dexilant] 60 mg PO BID 11/07/18 11/21/18 History midodrine 5 mg PO TID@0800,1200,1700 11/07/18 11/21/18 History phenazopyridine [Azo Urinary Pain 97.5 mg PO TID PRN 11/07/18 11/21/18 History Relief] prazosin 1 mg PO HS PRN 11/07/18 11/21/18 History prednisone 10 mg PO QAM 11/07/18 11/21/18 History bifidobacteri bifid.and longum 1 cap PO DAILY 11/21/18 11/21/18 History [Florajen Bifidoblend] cephalexin 500 mg PO BID 11/21/18 11/21/18 History duloxetine 30 mg PO DAILY 11/21/18 11/21/18 History prednisone 2.5 mg PO DAILY 11/21/18 11/21/18 History Patient History Medical History Rheumatoid arthritis Chronic back pain (Chronic) Depression (Chronic 03/10/13) Osteoarthritis (Chronic 03/10/13) Chronic anemia (Acute) Major depressive disorder, recurrent episode with anxious distress Acute gastritis (03/23/12) Cholecystectomy (03/10/13) Colostomy present Diabetes mellitus Diverticula of colon Falls frequently History of colitis Infected abrasion of great toe of left foot Infected abrasion of great toe of right foot Lactose intolerance Low blood pressure Pituitary adenoma (03/10/13) Slurred speech TIA (transient ischemic attack) Vasovagal syncope (03/10/13) Surgical History History of hip replacement (Chronic) Hx of cholecystectomy (Chronic) H/O: hysterectomy (Chronic) History of surgical removal of pituitary gland History of surgical removal of pituitary gland Family History Other Cancer Diabetes Gallbladder disease HTN (hypertension) Heart disease Seizure Social History marital status: / Current Living Situation: Alone Current Living Situation Comment: With [facility] Other Information That Helps Us Care for You: No Feels Safe at Home: Yes Safety Concerns: Feels Safe At This Time Smoking Status: Never smoker Do You Dip or Chew Tobacco: No Hx Alcohol Use: No Hx Substance Use: No Beliefs That Will Affect Care: Gnosticism Gnosticism Beliefs: Judaism Communication Ability: Effective Review of Systems Constitutional: + fatigue; no fever and no chills Eyes: no blind spots and no diplopia Ear, Nose, Mouth, Throat: no hearing loss Respiratory: no cough and no dyspnea Cardiovascular: no chest pain and no palpitations Gastrointestinal: no nausea and no vomiting Genitourinary (Female): + dysuria Musculoskeletal: no myalgia Integumentary: no rash and no lesions Neurologic: as per Subjective / HPI Psychiatric: no depression and no anxiety Hematologic / Lymphatic: no easy bleeding and no lymphadenopathy Physical Exam 2 Vital Signs (Past 24 Hours): Last Vital Signs Temp 36.6 C 11/24/18 07:15 Pulse 93 H 11/24/18 07:15 Resp 16 11/24/18 07:15 BP 153/75 H 11/24/18 07:15 Pulse Ox 94 11/24/18 07:15 Physical Exam: The patient is a well-developed, well-nourished elderly female. She is lying comfortably in bed, in no acute distress. She is alert and oriented to person and place only. Patient exhibits mild difficulty with recent memory, 1 out of 3 objects with delayed recall. Remote memory intact. Attention and concentration normal. Patient exhibits a normal spontaneous speech pattern. She is able to name objects and repeat phrases. Patient exhibits an age-appropriate fund of knowledge and normal vocabulary. Visual gaston full to confrontation. Visual acuity normal. Pupils equal round react to light and accommodation. Eye movements normal. No nystagmus. Facial sensation intact bilaterally. There is no facial droop or weakness. Hearing intact. Palate elevates to midline. Shoulder shrug intact. Tongue protrudes to midline. Sensation intact all modalities in all 4 limbs. Deep tendon reflexes intact and symmetrical. There is no dysdiadochokinesia or dysmetria finger to nose or heel to chavez bilaterally. Ophthalmoscopic examination reveals normal optic disks and posterior segments. No papilledema or hemorrhages. Carotid pulses normal bilaterally, no bruits to auscultation. Gait and station not tested due to safety concerns. Patient exhibits normal muscle strength and tone for all 4 limbs. There is no pronator drift. No signs of a hemiparesis at this time. No atrophy. No abnormal movements observed.
[2018-11-24] MEDS: DAPTOmycin 325 MG in SYRINGE 0 ML IV SCH (11:05)
[2018-11-24] MEDS: ERTAPENEM SODIUM 1,000 MG in SODIUM CHLORIDE 0.9% 50 ML IV SCH (18:28)
--- NOTE | 2018-11-24 18:45 | Hospitalist Progress Note ---
Date of Service November 24, 2018 Assessment & Plan (1) Diverticulitis: - Presented with abdominal pain and lethargy; CT A/P showed mild acute diverticulitis at the splenic flexure. 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 - Ertapenem 1 gm IV q24hr due to h/o MDR and multiple allergies (end date: ) - will discuss converting to PO Cefdinir/Flagyl with ID on 11/25/18. - ID consulted, appreciate input. - On probiotic daily due to frequent use of IV & PO abx. (2) Recurrent UTI: - H/o recurrent UTIs; most recently admitted 11/07-11/11 for Pseudomonas UTI requiring IV Ertapenem course. 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 - Started Daptomycin, will need 3-7 day course -- will need to discuss with ID. - H/o colovesicular fistula; is scheduled for follow up with urology as outpatient and will need cystoscopy. - Urology consulted, appreciate input. - Previously on Keflex ppx; will need to discuss resuming med at discharge with ID. (3) Stroke-like episode: - Developed new left sided facial droop with left sided weakness (+3/5 upper and lower body strength on exam) on 11/23, now resolved. - Per neuro, may be related to TIA episode. - CT of head was negative. - Currently on Plavix/Aspirin due to h/o CAD; will start Atorvastatin 40 mg daily. - Stroke protocol ordered; neuro consulted, appreciate input. - MR angiogram of head/neck negative; TTE also negative. - PT/OT ordered. - Lipid panel showed elevated total cholesterol and triglycerides; most recent Hgb A1C was 6.0 in Oct 2018. - Upgrade to telemetry to monitor for arrhythmias over next 24 hours. (4) Stage III chronic kidney disease: - Renally dose all meds. - Creatinine currently at baseline. - Hold IVFs. (5) Nephrolithiasis: - Noted on imaging; has discussed with urology, pt. declined further treatment. (6) SLE (systemic lupus erythematosus): - Continue Plaquenil and Prednisone as prescribed. (7) Rheumatoid arthritis: - Continue Plaquenil and Prednisone as prescribed. - Will need to start stress dose steroids if hypotensive. - Oxycodone 10 mg BID scheduled with Tylenol prn pain. (8) Chronic diastolic heart failure: - TTE during this admission showed EF 55-60%, no evidence of diastolic HF. - Previous TTE in 2010 showed EF 60-65%, grade I diastolic dysfunction. - Monitor for fluid overload. (9) Peripheral artery disease: - Continue Plavix and Aspirin. (10) Hypothyroid: - Continue Synthroid as prescribed. - TSH was 1.5. (11) Chronic anemia: - Hemoglobin baseline ~9.5-10.5. - Iron panel consistent with anemia of chronic disease. - B12 and Folate were WNL recently. - Monitor CBC qAM. (12) Orthostatic hypotension: - H/o orthostasis and vasovagal syncope. - Continue Midodrine 5 mg TID. - Hold IVFs. (13) Neuropathy: - Continue Gabapentin and Cymbalta as prescribed. (14) Mood disorder: - Continue Seroquel 150 mg qhs as prescribed. (15) Chronic respiratory failure: - Usually requires 3L at home; has been stable on room air. 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 diff gene was positive; toxin is negative. - No indication for treatment. (17) Prediabetes: - Hemoglobin A1C was 6.0 on 11/04/18. - Encourage weight loss, carb consistent diet. (18) DVT prophylaxis: - SCDs; Pt. has large hematoma on abdomen from prior lovenox use, will hold for now. Dispo: Upgrade to telemetry for cardiac monitoring x 24 hours. Discharge pending plan for IV abx at home. Supervising Physician Co-Signing Physician Notes PA Supervision Note: I did not personally see or examine the patient today, but I verified all amaro points of GREGORY Pinto's assessment and plan with the following exceptions/ additions: None Subjective Pt. is doing well today. Left sided facial drooping improved, left sided upper and lower extremity weakness resolved. She has mild lower abdominal pain, good output from ostomy. Has intermitten dysuria. Review of Systems All systems reviewed & are unremarkable except as noted in HPI & below Constitutional: + weakness; no fever and no chills Respiratory: no cough and no dyspnea Cardiovascular: no chest pain, no palpitations and no edema Gastrointestinal: + abdominal pain; no nausea, no constipation and no diarrhea/ loose stools Genitourinary (Female): + dysuria; no difficulty urinating and no urinary frequency Musculoskeletal: no joint pain Allergy / Immunological: no rash Physical Exam 2 Vital Signs (Past 24 Hours): Last Vital Signs Temp 36.4 C L 11/24/18 14:54 Pulse 89 11/24/18 15:56 Resp 18 11/24/18 14:54 BP 108/57 L 11/24/18 14:54 Pulse Ox 93 11/24/18 14:54 Physical Exam: General: Resting comfortably in no apparent distress HEENT: NC/AT; Left sided eye and facial droop resolved. Neck: Supple and nontender Cardiac: RRR w/o murmurs, gallops or rubs Lungs: CTA bilaterally; No rhonchi, wheezing, or rales Abdomen: Colostomy with good output; tenderness to palpation over lower abdomen. Extremities: Warm. No edema present Neuro: +4/5 bilat upper and lower extremity strength. Skin: No rash Results & Data Laboratory Results 11/24/18 11/24/18 11/24/18 Range/Units 11:41 07:30 05:46 WBC (4.8-10.8) K/uL RBC (4.2-5.4) M/uL Hgb (12.0-16.0) g/dL Hct (37-47) % MCV (80-100) fL MCH (25-34) pg MCHC (32-36) g/dL RDW Std Deviation (36.4-46.3) fL RDW Coeff of Omar (11.5-14.5) % Plt Count (130-400) K/uL MPV (7.4-10.4) fL Sodium 141 (136-145) mmol/L Potassium 3.8 (3.5-5.1) mmol/L Chloride 110 H (98-107) mmol/L Carbon Dioxide 26 (21-32) mmol/L Anion Gap 5.0 (3-11) BUN 15 (7-18) mg/dl Creatinine 1.04 (0.6-1.2) mg/dl Est Cr Clr Drug Dosing 36.8 ml/min Est GFR ( Amer) 56.7 Est GFR (Non-Af Amer) 49.0 BUN/Creatinine Ratio 14.0 (10-20) Glucose 92 (70-99) mg/dl POC Glucose 132 H 92 (70-99) Calcium 8.0 L (8.5-10.1) mg/dl Magnesium 2.2 (1.8-2.4) mg/dl Triglycerides 230 H (0-150) mg/dl Cholesterol 258 H (0-200) mg/dl LDL Cholesterol, Calc 169 mg/dl VLDL Cholesterol, Calc 46 mg/dl HDL Cholesterol 43 mg/dl Cholesterol/HDL Ratio 6 11/24/18 11/23/18 Range/Units 05:46 22:51 WBC 9.93 (4.8-10.8) K/uL RBC 2.86 L (4.2-5.4) M/uL Hgb 8.7 L (12.0-16.0) g/dL Hct 27.7 L (37-47) % MCV 96.9 (80-100) fL MCH 30.4 (25-34) pg MCHC 31.4 L (32-36) g/dL RDW Std Deviation 53.8 H (36.4-46.3) fL RDW Coeff of Omar 15.2 H (11.5-14.5) % Plt Count 245 (130-400) K/uL MPV 9.2 (7.4-10.4) fL Sodium (136-145) mmol/L Potassium (3.5-5.1) mmol/L Chloride (98-107) mmol/L Carbon Dioxide (21-32) mmol/L Anion Gap (3-11) BUN (7-18) mg/dl Creatinine (0.6-1.2) mg/dl Est Cr Clr Drug Dosing ml/min Est GFR ( Amer) Est GFR (Non-Af Amer) BUN/Creatinine Ratio (10-20) Glucose (70-99) mg/dl POC Glucose 114 H (70-99) Calcium (8.5-10.1) mg/dl Magnesium (1.8-2.4) mg/dl Triglycerides (0-150) mg/dl Cholesterol (0-200) mg/dl LDL Cholesterol, Calc mg/dl VLDL Cholesterol, Calc mg/dl HDL Cholesterol mg/dl Cholesterol/HDL Ratio
[2018-11-24] MEDS: QUETIAPINE FUMARATE 50 MG TABCR PO SCH (20:26)
[2018-11-24] MEDS: PRAZOSIN HCL 1 MG CAP PO SCH (20:26)
[2018-11-24] MEDS ORDERED: ZOLPIDEM TARTRATE 5 MG TAB PO STA (23:46)
[2018-11-25] MEDS: LEVOTHYROXINE SODIUM 88 MCG TABLET PO SCH (06:33)
[2018-11-25] MEDS: DULOXETINE HCL 30 MG CAP PO SCH (08:28)
[2018-11-25] MEDS: ASPIRIN 81 MG ECTAB PO SCH (08:28)
[2018-11-25] MEDS: MIDODRINE HCL 2.5 MG TAB PO SCH ×2 (08:28→12:17)
[2018-11-25] MEDS: DULOXETINE HCL 60 MG CAP PO SCH (08:28)
[2018-11-25] MEDS: SACCHAROMYCES BOULARDII 250 MG CAP PO SCH (08:29)
[2018-11-25] MEDS: POTASSIUM CHLORIDE PWD 20 MEQ PACK PO SCH (08:29)
[2018-11-25] MEDS: GABAPENTIN 300 MG CAP PO SCH ×2 (08:30→13:27)
[2018-11-25] MEDS: CLOPIDOGREL BISULFATE 75 MG TAB PO SCH (08:30)
[2018-11-25] MEDS: HYDROXYCHLOROQUINE SULFATE 200 MG TAB PO SCH (08:31)
[2018-11-25] MEDS: OXYCODONE HCL IR 5 MG TAB (IMMEDIATE RELEASE) PO SCH (08:32)
[2018-11-25] MEDS: predniSONE 10 MG TABLET PO SCH (08:32)
[2018-11-25 08:42] LABS: Hematocrit (blood only) 31.6 % (37-47); Hemoglobin 9.6 g/dL (12.0-16.0); Mean Corpuscular Hgb Conc 30.4 g/dL (32-36); Mean Corpuscular Volume 95.5 fL (80-100); Platelet Count 293 K/uL (130-400); Red Blood Count 3.31 M/uL (4.2-5.4); White Blood Count 9.24 K/uL (4.8-10.8)
[2018-11-25 08:55] LABS: BUN Creatinine Ratio 13.9 (10-20); Calcium 8.5 mg/dl (8.5-10.1); Creatinine Clr Calc Pharmacy 35.7 ml/min; Est GFR (African American) 54.2; Est GFR (Non-African American) 46.8; Potassium 3.9 mmol/L (3.5-5.1)
[2018-11-25] MEDS ORDERED: ATORVASTATIN 40 MG TAB PO SCH (09:00)
[2018-11-25] MEDS ORDERED: DAPTOmycin 325 MG in SYRINGE 0 ML IV SCH (09:52)
[2018-11-25] MEDS: DAPTOmycin 325 MG in SYRINGE 0 ML IV SCH (10:07)
[2018-11-25] MEDS: ACETAMINOPHEN 325 MG TAB PO PRN (10:08)
--- NOTE | 2018-11-25 10:58 | Infectious Disease Progress Nt ---
Date of Service November 25, 2018 Assessment & Plan (1) Diverticulitis: ua with min wbc, >30 ep cells, ? contaminated. agree with transition to po abx for treatment of diverticulitis. will need 14 days total. agree with Dapto, would give 3 days total. discussed with primary service, ok for d/c from ID standpoint when otherwise stable. Subjective pt afebrile. blood cultures negative, stool cultures negative. remains on ertapenem, for d/c on po omnicef and flagyl to complete course. urine culture now growing VRE. placed on dapto. tolerating well. Physical Exam 2 Vital Signs (Past 24 Hours): Last Vital Signs Temp 36.5 C 11/25/18 07:48 Pulse 94 H 11/25/18 08:00 Resp 20 11/25/18 07:48 BP 114/66 11/25/18 07:48 Pulse Ox 93 11/25/18 07:48 Results & Data Laboratory Results Microbiology 11/22/18 19:30 Stool Shiga Toxin Test - Final 11/22/18 19:30 Stool Stool Culture - Final No Salmonella isolated, No Shigella isolated, No Campylobacter jejuni isolated. 11/21/18 18:44 Urine,Clean Catch Urine Culture - Final Enterococcus faecium VRE 11/21/18 19:44 Blood Blood Culture - Preliminary No growth to date. 11/21/18 19:55 Blood Blood Culture - Preliminary No growth to date.
[2018-11-25] MEDS ORDERED: STROKE PATIENT DISCHARGE STA (12:00)
[2018-11-25] MEDS ORDERED: metroNIDAZOLE 500 MG TAB PO SCH (14:00)
--- NOTE | 2018-11-25 16:43 | Discharge Summary ---
Date of Service November 25, 2018 Admission HPI Per Admitting Provider Patient is an 87yo F well known to service, who presents with a 3 day h/o lethargy, anorexia, fever/chills, lower abdominal cramping on urination. Patient recently discharged on 11/11/18 with recurrent UTI (enterobacter, previously pseudomonas), was discharged with outpatient Tx with ertapenam x 3 days and prophylactic keflex. She states she has been feeling not herself since she finished the 3 days of IV ertapenam, but has gotten acutely worse in past 3 days. She last saw Dr. Wilson last week, and reports that Dr. Coronel was planning on performing a cystoscopy this Wednesday, 11/25. PMH significant for recurrent UTIs, SLE, PVD, hypothyroid, anemia (baseline hb 8-10), CKD III, sigmoidectomy with colostomy and others listed below. Admission Exam Per Admitting Provider Constitutional: WD/WN, vitals as above not ill appearing Eyes: PERRL, conjunctivae normal, anicteric sclerae ENMT: external ear and nose normal, oropharynx normal Neck: normal visual inspection Respiratory: normal respiratory effort, lungs clear to auscultation Cardiovascular: RRR, no murmur, no edema Gastrointestinal (Abdomen): Percussion/Palpation: + abdomen tender (RLQ and LLQ, suprapubic) Musculoskeletal: no cyanosis or clubbing, extremities motor strength 5/5 Skin: no rashes, warm and dry Neurologic: PERRL, EOMI, accommodation nl, no face palsy, no dysarthria Psychiatric: A+Ox3, euthymic affect Principal Diagnosis Acute Diverticulitis, VRE UTI Discharge Exam General: Resting comfortably in no apparent distress HEENT: NC/AT; Left sided eye and facial droop resolved. Neck: Supple and nontender Cardiac: RRR w/o murmurs, gallops or rubs Lungs: CTA bilaterally Abdomen: Colostomy with good output; tenderness to palpation over right lower abdomen. Extremities: Warm. No edema present Neuro: +4/5 bilat upper and lower extremity strength. Skin: No rash Discharge Data Allergies Allergy/AdvReac Type Severity Reaction Status Date / Time nitrofurantoin Allergy Severe HIVES Verified 09/26/18 14:12 scallops Allergy Severe THROAT Verified 09/26/18 14:12 SWELLS Cipro Allergy Intermediate HIVES Verified 06/03/18 16:34 ciprofloxacin Allergy Intermediate HIVES Verified 09/26/18 14:12 latex Allergy Intermediate RASH Verified 09/26/18 14:12 Quinolones Allergy Intermediate HIVES Verified 09/26/18 14:12 fluticasone Allergy Unknown ADVAIR-UNKN Verified 09/26/18 14:12 OWN salmeterol Allergy Unknown ADVAIR Verified 09/26/18 14:12 celecoxib AdvReac Intermediate barretts Verified 09/26/18 14:12 esophagus lactose AdvReac Intermediate GI UPSET Verified 09/26/18 14:12 morphine AdvReac Intermediate NAUSEA AND Verified 09/26/18 14:12 VOMITING Consultations 11/21/18 19:38 ED Decision to Admit Stat 11/21/18 22:16 Consult Case Management - Discharge Planning Routine Consult Infectious Diseases Routine 11/22/18 08:38 Consult Urology Routine 11/23/18 17:52 Consult Case Management - Discharge Planning Routine Consult Neurology Routine Ordered Studies 11/21/18 19:37 CT abd pelvis IV con only Stat 11/23/18 14:08 CT head/brain wo con Urgent 11/23/18 17:52 MR angio neck wo/w con Routine MR brain wo/w con Stat 11/23/18 17:54 MR angio head wo con Urgent Hospital Course (1) Diverticulitis: Pt. was admitted for lethargy and abd pain likely related to acute diverticulitis. CT A/P showed mild acute diverticulitis at the splenic flexure. Ertapenem 1 gm IV q24hr was started due to h/o MDR. Probiotic was ordered daily. ID was consulted for input. Abdominal pain improved throughout admission. She was converted to oral Cefdinir/Flagyl on discharge and will complete a 14 day course of abx. Pt. will need to follow up with GI in 6 weeks for a colonoscopy. She was instructed to follow a low fiber diet x 2 weeks then high fiber diet. (2) Recurrent UTI: H/o recurrent UTIs; most recently admitted 11/07-11/11 for Pseudomonas UTI requiring IV Ertapenem course. UC was positive for VRE. Pt. received Daptomycin x 3 days per ID recs. 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 Pt. will follow up with urology as an outpt. Keflex ppx was not resumed at discharge. She will need to follow up with Dr. Wilson in 2-3 weeks. (3) Stroke-like episode: Developed new left sided facial droop with left sided weakness (+3/5 upper and lower body strength on exam) on 11/23, now resolved. The facial drooping had not been noted by any ofher caregivers and therefore was difficult to establish a "last known well" time. Stroke protocol was ordered. CT head negative. MR angiogram head/neck and TTE also negative. Neuro felt symptoms may have been related to a TIA. PT/OT did not recommend inpt therapy. Home plavix/ aspirin was continued; atorvastatin 40 mg daily was added due to elevated total cholesterol level. She did have resolution of her symptoms after that. She will need to follow up with her PCP. (4) Stage III chronic kidney disease: Renally dosed all meds. (5) Nephrolithiasis: Noted on imaging; has discussed with urology, pt. declined further treatment. (6) SLE (systemic lupus erythematosus): Continued Plaquenil and Prednisone as prescribed. (7) Rheumatoid arthritis: Continued Plaquenil and Prednisone as prescribed. Oxycodone 10 mg BID for pain with Tylenol prn. (8) Chronic diastolic heart failure: TTE during this admission showed EF 55-60%, no evidence of diastolic HF. Previous TTE in 2010 showed EF 60-65%, grade I diastolic dysfunction. No evidence of fluid overload during this admission. (9) Peripheral artery disease: Continued Plavix and Aspirin. (10) Hypothyroid: Continued Synthroid as prescribed. TSH was 1.5. (11) Chronic anemia: Hemoglobin baseline ~9.5-10.5. Previous iron panel consistent with anemia of chronic disease. Recent B12 and folate levels were WNL. H/H remained stable. (12) Orthostatic hypotension: H/o orthostasis and vasovagal syncope. Continued Midodrine 5 mg TID. (13) Neuropathy: Continued Gabapentin and Cymbalta as prescribed. (14) Mood disorder: Continued Seroquel 150 mg qhs as prescribed. (15) Chronic respiratory failure: Usually requires 3L at home; was stable on room air during this admission. 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 No indication for treatment. (17) Prediabetes: Hemoglobin A1C was 6.0 on 11/04/18. Encouraged weight loss, carb consistent diet. (18) DVT prophylaxis: SCDs; Pt. has large hematoma on abdomen from prior lovenox use, held during this admission. Pt. was stable for discharge to home on 11/25/18. Home nursing was arranged for PT/OT. Total Time Total Time Spent Total Time Spent (In Minutes): >30 minutes Total Time Includes: Examination of the Patient, Discharge Planning, Medication Reconciliation, Communication With Other Providers and Other Discharge Plan Discharge Items Patient Disposition: Home - Home Health Services Reason For Visit: UTI,FATIGUE Discharge Diagnosis: VRE UTI, Acute Diverticulitis Condition: Good Discharge Goals: Diagnostic testing, Improve disease control, Improve function, Increase independence, Improve nutritional status, Prevent disease and Therapeutic intervention Activity: As commented below Exercise/Sports: Gradually increase as tolerated Non-emergency contact: Primary Care Provider and Urologist Call non-emergency contact if: you have any medication questions, your symptoms worsen, your pain is not controlled, your pain is worsening, your pain is unusual for you and you have a fever Follow-up/Referrals: Jose Wilson MD [Family Provider] - (Please follow up with Dr. Wilson in 2-3 weeks. ) Nidhi Gardner MD [Primary Care Provider] - (Please follow up with your PCP in 1-2 weeks. ) Basil Coronel II, DO [Physician] - (Please schedule an appointment with urology in 1-2 weeks to discuss outpatient cystoscopy. ) Diet: Low Fiber Diet Comment: Follow a low fiber diet for 2 weeks then high fiber diet. Addtl Provider Instructions: 1. Acute Diverticulitis * You were treated with Ertapenem IV for 4 days during this hospital admission. * Please continue Cefdinir twice daily and Flagyl three times daily for treatment of diverticulitis. * You will need to complete a 14 day course of antibiotics. * Prescription was sent to your pharmacy. * Please continue a probiotic daily while you are taking antibiotics. * Please schedule a follow up with gastroenterology; you will need a colonoscopy in 6 weeks. 2. VRE UTI/Recurrent UTIs * You completed a 3 day course of Daptomycin IV during this hospital admission. * Please hold prophylactic Keflex following discharge. * Please schedule an appointment with Dr. Wilson in 2-3 weeks. * Please schedule an appointment with Dr. Coronel in 1-2 weeks. 3. Stroke-like Episode * Work up for during this admission was negative. * Please continue Plavix/Aspirin as prescribed. * A new medication, Atorvastatin 40 mg daily, was prescribed. Prescription was sent to your pharmacy. * Please follow up with your PCP to discuss management of medications. 4. Chronic Pain related to RA and SLE * Please continue Oxycodone 10 mg twice daily with Tylenol as needed. * Please follow up with your PCP to discuss pain management. 5. Please call your family doctor or go to the ER if you develop the following: * Chest pain or shortness of breath. * Severe watery diarrhea in the setting of antibiotics. * Slurred speech, facial drooping or unilateral weakness on one side of your body. Prescriptions: New atorvastatin 40 mg Tablet 40 mg PO QAM 30 Days Qty: 30 RF: 2 metronidazole 500 mg Tablet 500 mg PO TID 10 Days Qty: 30 RF: 0 cefdinir 300 mg Capsule 300 mg PO BID 10 Days Qty: 20 RF: 0 Continue fexofenadine [Cora Allergy] 60 mg tablet 60 mg PO DAILY PRN (Reason: Congestion) RF: 0 aspirin 81 mg tablet,delayed release (DR/EC) 81 mg PO QAM RF: 0 furosemide 20 mg tablet 20 mg PO DAILY PRN (Reason: weight gain) RF: 0 cholecalciferol (vitamin D3) 2,000 unit capsule 2,000 units PO QAM RF: 0 levothyroxine [Synthroid] 88 mcg tablet 88 mcg PO QAM RF: 0 ascorbic acid (vitamin C) 500 mg tablet 500 mg PO QAM RF: 0 hydroxychloroquine 200 mg tablet 300 mg PO QAM RF: 0 ondansetron HCl [Zofran] 8 mg Tablet 8 mg PO Q6 PRN (Reason: Nausea) RF: 0 clopidogrel [Plavix] 75 mg Tablet 75 mg PO QAM RF: 0 potassium chloride 20 mEq Packet 20 meq PO BID RF: 0 lidocaine 5 % Gel 1 applic Topical QID PRN (Reason: Back Pain) RF: 0 diclofenac sodium [Voltaren] 1 % gel 4 gm TOP QID MDD 16G PRN (Reason: Pain) RF: 0 duloxetine [Cymbalta] 60 mg Capsule,Delayed Release(Dr/Ec) 60 mg PO QAM RF: 0 fluticasone [Flonase Allergy Relief] 50 mcg/actuation Elizabeth,Suspension 2 spray INTRANASAL DAILY PRN (Reason: Congestion) RF: 0 cyanocobalamin (vitamin B-12) [Vitamin B-12] 1,000 mcg Tablet 1,000 mcg PO QAM RF: 0 oxycodone 5 mg Tablet 10 mg PO BID RF: 0 vit A,C and [id number] [Ocuvite with Lutein] 1,000 unit-200 mg-60 unit- 2 mg Tablet 1 tab PO QAM RF: 0 quetiapine [Seroquel XR] 150 mg Tablet Extended Release 24 Hr 150 mg PO HS RF: 0 gabapentin 300 mg capsule 300 mg PO TID RF: 0 vitamin B complex Tablet 1 tab PO QAM RF: 0 polyethylene glycol 3350 [Miralax] 17 gram powder in packet 17 gm PO QAM RF: 0 prazosin 1 mg capsule 1 mg PO HS PRN (Reason: Unknown) RF: 0 dexlansoprazole [Dexilant] 60 mg Capsule,Biphase Delayed Releas 60 mg PO BID RF: 0 midodrine 5 mg Tablet 5 mg PO TID@0800,1200,1700 RF: 0 prednisone 10 mg tablet 10 mg PO QAM RF: 0 phenazopyridine [Azo Urinary Pain Relief] 97.5 mg Tablet 97.5 mg PO TID PRN (Reason: .URINARY PAIN) RF: 0 bifidobacteri bifid.and longum 460 mg (9-1 bill.cell) capsule 1 cap PO DAILY RF: 0 Changed duloxetine 30 mg Capsule,Delayed Release(Dr/Ec) 30 mg PO QAM Qty: 0 RF: 0 Discontinued prednisone 2.5 mg Tablet 2.5 mg PO DAILY RF: 0 cephalexin 500 mg capsule 500 mg PO BID RF: 0 Stand-Alone Forms: Medications to Prevent Stroke, [facility] Discharge Orders: Discharge Order (Routine); Ordered 11/25/18 Ordered By: Monse Salas Admission Data Admit Date/Time: 11/23/18 17:05 Attending Provider: Monse Salas Admit Provider: Dania Dave Primary Care Provider: Nidhi Gardner Other Providers: Beverley Coronado ; Brandon Mcneal ; Scot Bhatia Service: Medical Other Interventions: Discharge Summary Assessment (RN) Last Done: 11/25/18 13:04 Pending Studies at Discharge: Yes Studies:: Blood cultures 11/21: negative to date DC Date/Time DO NOT enter until pt leaves facility: 11/25/18 14:14 Supervising Physician Co-Signing Physician Notes PA Supervision Note: I personally saw and examined the patient. I verified all amaro points and agree with GREGORY Pinto with the following exceptions and/or additions: Pt doing well on day of dc. Had very minimal left sided and lower abdominal pain. Afebrile. No further focal neuro symptoms. Vitals reviewed NAD, AAOx3 RRR no mgr CTAB no wcr Abd +BS soft NT ND Ext no calf tenderness or edema 87 yo femlae with complex history and here with recurrent UTI with MDR organisms and mild acute diverticulitis. Plan as above
[2018-11-25] MEDS ORDERED: CEFDINIR 300 MG CAP PO SCH (21:00)
== END 2018-11-25 14:14 | disposition home health service (06) | DRG 392 ==
LOC: 4E 17:16 → ED 17:16 → SUATTDRO 20:45 → 4E 21:48 → 2W 11-24 11:17

== ENCOUNTER 2018-12-13 13:10 | Inpatient (IN) ==
[2018-12-13 13:47] LABS: Appearance Urine Clear (Clear); Bilirubin Urine Negative (Negative); Blood Urine Negative (Negative); Color Urine Yellow; Glucose Urine UA Negative (Negative); Ketones Urine Negative (Negative); Leukocyte Esterase Urine Negative (Negative); Nitrite Urine Negative (Negative); Protein Urine Negative (Negative); Specific Gravity Urine 1.016 (1.000-1.030); Urobilinogen Urine Negative (Negative)
[2018-12-13 13:49] LABS: Basophils # (auto) 0.03 K/uL (0-0.2); Basophils % (auto) 0.1 %; Eosinophils # (auto) 0.38 K/uL (0-0.5); Eosinophils % (auto) 1.7 %; Hematocrit (blood only) 33.9 % (37-47); Hemoglobin 10.3 g/dL (12.0-16.0); Immature Granulocytes # (auto) 0.15 K/uL (0.00-0.02); Immature Granulocytes % (auto) 0.7 %; Lymphocytes # (auto) 2.87 K/uL (1.2-3.4); Lymphocytes % (auto) 12.5 %; Mean Corpuscular Hgb Conc 30.4 g/dL (32-36); Mean Corpuscular Volume 95.5 fL (80-100); Monocytes # (auto) 1.47 K/uL (0.11-0.59); Monocytes % (auto) 6.4 %; Neutrophils # (auto) 18.08 K/uL (1.4-6.5); Neutrophils % (auto) 78.6 %; Nucleated RBC # (auto) 0.02 K/uL (0-0); Nucleated RBC % (auto) 0.1 %; Platelet Count 287 K/uL (130-400); RDW Standard Deviation 52.3 fL (36.4-46.3); Red Blood Count 3.55 M/uL (4.2-5.4); White Blood Count 22.98 K/uL (4.8-10.8)
[2018-12-13 13:56] LABS: Alanine Aminotransferase 23 U/L (12-78); Albumin Level 3.2 gm/dl (3.4-5.0); Aspartate Aminotransferase 11 U/L (15-37); BUN Creatinine Ratio 16.7 (10-20); Blood Urea Nitrogen 17 mg/dl (7-18); Calcium 8.9 mg/dl (8.5-10.1); Carbon Dioxide 29 mmol/L (21-32); Chloride 103 mmol/L (98-107); Creatinine Clr Calc Pharmacy 39.1 ml/min; Est GFR (African American) 59.5; Est GFR (Non-African American) 51.3; Glucose 131 mg/dl (70-99); Potassium 3.9 mmol/L (3.5-5.1); Sodium 140 mmol/L (136-145)
[2018-12-13 13:59] LABS: Albumin Globulin Ratio 0.8 (0.9-2); Alkaline Phosphatase 101 U/L (45-117); Bilirubin,Total 0.3 mg/dl (0.2-1); Total Protein 7.2 gm/dl (6.4-8.2)
--- NOTE | 2018-12-13 14:05 | XRay Report ---
XR chest 1V portable CLINICAL HISTORY: fever dyspnea COMPARISON STUDY: 09/26/2018 FINDINGS: Mild stable cardiomegaly. Chronic interstitial prominence throughout both hemithoraces. Mil d chronic elevation right hemidiaphragm. No well-defined focal infiltrate. IMPRESSION: Chronic change. No acute process. The above report was generated using voice recognition software. It may contain grammatical, syntax or spelling errors. Electronically signed by: Robinson Turner M.D. 12/13/2018 2:04 PM
[2018-12-13] MEDS ORDERED: SODIUM CHLORIDE 0.9% IV STA (14:07)
[2018-12-13] MEDS ORDERED: CEFEPIME 2,000 MG/12.5 ML VIAL IV STA (14:07)
[2018-12-13] MEDS ORDERED: VANCOMYCIN HCL IV STA (14:07)
[2018-12-13] MEDS ORDERED: VANCOMYCIN CONSULT ACTIVE PRN ×2 (14:07→14:22)
[2018-12-13] MEDS ORDERED: ACETAMINOPHEN 500 MG TAB PO STA (14:10)
[2018-12-13] MEDS ORDERED: SODIUM CHLORIDE 0.9% 1000ML 1,000 ML IV ONE (14:15)
[2018-12-13] MEDS ORDERED: VANCOMYCIN HCL 1,250 MG in SODIUM CHLORIDE 0.9% 500 ML IV STA (14:22)
[2018-12-13] MEDS ORDERED: fentaNYL citrate 100 MCG/2 ML VIAL IV STA (14:31)
[2018-12-13] MEDS ORDERED: ONDANSETRON 4 MG OD TAB PO STA (14:31)
[2018-12-13 14:54] LABS: Troponin I < 0.015 ng/ml (0-0.045)
[2018-12-13 14:59] LABS: Partial Thromboplastin Time 27.6 Seconds (21.0-31.0); Prothrombin Time 10.3 Seconds (9.0-12.0)
--- NOTE | 2018-12-13 15:00 | CT Scan Report ---
CT abd pelvis wo con CT DOSE: 470.79 mGy.cm HISTORY: Pain. Sepsis. abdominal pain, septic TECHNIQUE: Multiaxial CT images of the abdomen and pelvis were performed without contrast. A dose lo wering technique was utilized adhering to the principles of ALARA. COMPARISON STUDY: 11/21/2018 FINDINGS: Interval development of right basilar infiltrate. This shows central consolidative change. Liver spleen and pancreas are grossly unremarkable. Bilateral nonobstructing renal calcifications are present. Prior cholecystectomy. Scattered colonic diverticuli. Central ostomy with a prior sigmoid colonic res ection. This is nonobstructive but appears to be unremarkable. Bilateral total hip arthroplasties are present. No evidence for free fluid within the pelvic cul-de-sac. IMPRESSION: 1. Interval development of a consolidated right lower lobe infiltrate. 2. Chronic and postoperative changes of the abdomen and pelvis with no acute process. The above report was generated using voice recognition software. It may contain grammatical, syntax or spelling errors. Electronically signed by: Robinson Turner M.D. 12/13/2018 2:59 PM
--- NOTE | 2018-12-13 16:05 | Emergency Department Note ---
ED Visit Note I assisted in the care of this patient with Dr. Aldana . Resident Activity Tracking Resident Involvement: Resident Care Provided Care Provided: Adult ED : Sepsis Qualifiers: Sepsis type: sepsis due to unspecified organism Qualified Code(s): A41.9 - Sepsis, unspecified organism
[2018-12-13] MEDS ORDERED: DAPTOmycin 325 MG in SYRINGE 0 ML IV ONE (17:38)
[2018-12-13] MEDS ORDERED: LACTATED RINGER'S 1,000 ML IV ONE (18:02)
--- NOTE | 2018-12-13 18:03 | Emergency Department Note ---
Entered by Vj Nichols acting as a scribe for History of Present Illness General Chief complaint: Fever Time Seen by Provider: 12/13/18 13:43 Source: patient Limitations: no limitations History of Present Illness Provider complaint: ABD Pain Onset (ago): hour(s) Location: abdomen Pain Consistency: + constant Maximum Pain Intensity: 8 Associated symptoms: + chest pain, + shortness of breath and + other (Diffuse Aches) Treatments prior to arrival: other (Amoxicllin) The patient is an 87 year old female who presents to the Emergency Room with complaints of constant abdominal pain. The patient and her "comfort keeper" at bedside states that the patient was feeling well last night, but began to complain of abdominal pain this morning. The residential care facility manager also notes that she dev eloped a fever over night and began to feel generally unwell. The patient is complaining of diffuse aches and pains as well including over her chest. She is complaining of shortness of breath, but the residential care facility manager notes that she is chronically short of breath. The patient is currently on a two week course of Amoxicillin for a urinary tract infection. The patient denies any pain with urination or diarrhea. She has a colostomy bag in place which is holding firm stool. Home Medications Home Medications Medication Instructions Recorded Confirmed Type ascorbic acid (vitamin C) 500 mg 500 mg PO QAM 07/07/18 12/13/18 History tablet aspirin 81 mg tablet,delayed 81 mg PO QAM 07/07/18 12/13/18 History release cholecalciferol (vitamin D3) 2,000 2,000 units PO QAM 07/07/18 12/13/18 History unit capsule fexofenadine 60 mg tablet 60 mg PO DAILY PRN tab 07/07/18 12/13/18 History hydroxychloroquine 200 mg tablet 300 mg PO QAM tab 07/07/18 12/13/18 History levothyroxine 88 mcg tablet 88 mcg PO QAM 07/07/18 12/13/18 History nitroglycerin 0.4 mg sublingual 0.4 mg SL Q5M PRN #1 tab 07/07/18 12/13/18 Rx tablet clopidogrel [Plavix] 75 mg PO QAM 08/10/18 12/13/18 History diclofenac sodium [Voltaren] 4 gm TOP QID PRN MDD 16G 08/10/18 12/13/18 History duloxetine [Cymbalta] 60 mg PO QAM 08/10/18 12/13/18 History fluticasone [Flonase Allergy 2 spray INTRANASAL DAILY PRN 08/10/18 12/13/18 Hi story Relief] lidocaine 1 applic TOPICAL QID PRN 08/10/18 12/13/18 History ondansetron HCl [Zofran] 8 mg PO Q6 PRN 08/10/18 12/13/18 History Ocuvite with Lutein 1 tab PO QAM 08/31/18 12/13/18 History cyanocobalamin (vitamin B-12) 1,000 mcg PO QAM 08/31/18 12/13/18 History [Vitamin B-12] oxycodone 10 mg PO BID 08/31/18 12/13/18 History gabapentin 300 mg PO TID 09/26/18 12/13/18 History polyethylene glycol 3350 [Miralax] 17 gm PO QAM PRN 09/26/18 12/13/18 History vitamin B complex 1 tab PO QAM 09/26/18 12/13/18 History Azo Urinary Pain Relief 97.5 mg PO TID PRN 11/07/18 12/13/18 History Dexilant 60 mg PO BID 11/07/18 12/13/18 History midodrine 5 mg PO TID@0800,1200,1700 11/07/18 12/13/18 History prazosin 1 mg PO HS PRN 11/07/18 12/13/18 History prednisone 10 mg PO QAM 11/07/18 12/13/18 History bifidobacteri bifid.and longum 1 cap PO DAILY 11/21/18 12/13/18 History duloxetine 30 mg PO QAM #0 cap 11/25/18 12/13/18 Rx amoxicillin 500 mg PO DAILY 12/13/18 12/13/18 History atorvastatin 40 mg PO QAM 12/13/18 12/13/18 History doxycycline hyclate 100 mg PO DAILY 12/13/18 12/13/18 History quetiapine 200 mg PO HS 12/13/18 12/13/18 History Allergies Allergy/AdvReac Type Severity Reaction Status Date / Time nitrofurantoin Allergy Severe HIVES Verified 12/13/18 15:35 scallops Allergy Severe THROAT Verified 12/13/18 15:35 SWELLS Cipro Allergy Intermediate HIVES Verified 06/03/18 16:34 ciprofloxacin Allergy Intermediate HIVES Verified 12/13/18 15:35 latex Allergy Intermediate RASH Verified 12/13/18 15:35 Quinolones Allergy Intermediate HIVES Verified 12/13/18 15:35 fluticasone Allergy Unknown ADVAIR-UNKN Verified 12/13/18 15:35 OWN salmeterol Allergy Unknown ADVAIR Verified 12/13/18 15:35 celecoxib AdvReac Intermediate barretts Verified 12/13/18 15:35 esophagus lactose AdvReac Intermediate GI UPSET Verified 12/13/18 15:35 morphine AdvReac Intermediate NAUSEA AND Verified 12/13/18 15:35 VOMITING Past Med/Surg History Medical History Rheumatoid arthritis Chronic back pain (Chronic) Depression (Chronic 03/10/13) Major depressive disorder, recurrent episode with anxious distress Acute gastritis (03/23/12) Cholecystectomy (03/10/13) Colostomy present Diabetes mellitus Diverticula of colon Falls frequently History of colitis Infected abrasion of great toe of left foot Infected abrasion of great toe of right foot Lactose intolerance Low blood pressure Pituitary adenoma (03/10/13) Slurred speech TIA (transient ischemic attack) Vasovagal syncope (03/10/13) Surgical History H/O: hysterectomy History of hip replacement History of surgical removal of pituitary gland History of surgical removal of pituitary gland Hx of cholecystectomy Family History Other Cancer Diabetes Gallbladder disease HTN (hypertension) Heart disease Seizure Social History Preferred Language: Bhutanese Communication Ability: Effective Backside Grinder Required: No Beliefs That Will Affect Care: Mosque marital status: / Current Living Situation: Alone Current Living Situation Comment: With HHN Other Information That Helps Us Care for You: No Feels Safe at Home: Yes Safety Concerns: Feels Safe At This Time Smoking Status: Former smoker Hx Alcohol Use: No Hx Substance Use: No Review of Systems See HPI for pertinent positives & negatives. and A total of 10 systems reviewed and were otherwise negative Physical Exam Vital Signs Vital Signs - 24 hr 12/13/18 13:26 12/13/18 13:30 12/13/18 13:34 Temperature 39.3 C H Temperature Source Oral Sepsis Recent Fever Within 48 Hours Yes Sepsis New/Unexplained Change in Mental Status Yes Sepsis Action Taken by Nursing No Action Required Pulse Rate 138 H 133 H Pulse Rate [Apical] Pulse Rate from SpO2 Sensor 133 H Pulse Rhythm [Apical] Respiratory Rate 20 17 Respiratory Effort / Characteristics Respiratory Depth Normal Respiratory Pattern Blood Pressure 192/79 H 179/68 H Blood Pressure [Right Arm] Blood Pressure Mean 116 105 Blood Pressure Mean [Right Arm] Pulse Oximetry 91 88 L Oxygen Delivery Method Room Air Room Air Oxygen Flow Rate 12/13/18 13:35 12/13/18 13:36 12/13/18 13:46 Temperature Temperature Source Sepsis Recent Fever Within 48 Hours Sepsis New/Unexplained Change in Mental Status Sepsis Action Taken by Nursing Pulse Rate 131 H 129 H Pulse Rate [Apical] Pulse Rate from SpO2 Sensor 131 H 129 H Pulse Rhythm [Apical] Respiratory Rate 10 L 17 Respiratory Effort / Characteristics Respiratory Depth Respiratory Pattern Blood Pressure 179/82 H 160/65 H Blood Pressure [Right Arm] Blood Pressure Mean 114 96 Blood Pressure Mean [Right Arm] Pulse Oximetry 94 93 96 Oxygen Delivery Method Nasal Cannula Nasal Cannula Nasal Cannula Oxygen Flow Rate 2 2 2 12/13/18 14:00 12/13/18 14:04 12/13/18 14:11 Temperature Temperature Source Sepsis Recent Fever Within 48 Hours Sepsis New/Unexplained Change in Mental Status Sepsis Action Taken by Nursing Pulse Rate 132 H Pulse Rate [Apical] 130 H Pulse Rate from SpO2 Sensor Pulse Rhythm [Apical] Regular Respiratory Rate 17 17 Respiratory Effort / Characteristics Non-Labored Spontaneous Respiratory Depth Normal Respiratory Pattern Regular Blood Pressure 173/70 H Blood Pressure [Right Arm] 152/83 H Blood Pressure Mean 104 Blood Pressure Mean [Right Arm] 106 Pulse Oximetry 93 Oxygen Delivery Method Nasal Cannula Room Air Oxygen Flow Rate 2 12/13/18 14:15 12/13/18 14:16 12/13/18 14:30 Temperature Temperature Source Sepsis Recent Fever Within 48 Hours Sepsis New/Unexplained Change in Mental Status Sepsis Action Taken by Nursing Pulse Rate 130 H 129 H 129 H Pulse Rate [Apical] Pulse Rate from SpO2 Sensor 129 H Pulse Rhythm [Apical] Respiratory Rate 20 22 18 Respiratory Effort / Characteristics Respiratory Depth Respiratory Pattern Blood Pressure 133/100 Blood Pressure [Right Arm] Blood Pressure Mean 111 Blood Pressure Mean [Right Arm] Pulse Oximetry 93 96 Oxygen Delivery Method Nasal Cannula Oxygen Flow Rate 2 12/13/18 14:31 12/13/18 14:57 12/13/18 14:58 Temperature Temperature Source Sepsis Recent Fever Within 48 Hours Sepsis New/Unexplained Change in Mental Status Sepsis Action Taken by Nursing Pulse Rate 129 H 132 H 133 H Pulse Rate [Apical] Pulse Rate from SpO2 Sensor 132 H 133 H Pulse Rhythm [Apical] Respiratory Rate 16 20 22 Respiratory Effort / Characteristics Respiratory Depth Respiratory Pattern Blood Pressure 159/67 H 152/60 H Blood Pressure [Right Arm] Blood Pressure Mean 97 90 Blood Pressure Mean [Right Arm] Pulse Oximetry 91 92 Oxygen Delivery Method Oxygen Flow Rate 12/13/18 15:00 12/13/18 15:01 12/13/18 15:15 Temperature Temperature Source Sepsis Recent Fever Within 48 Hours Sepsis New/Unexplained Change in Mental Status Sepsis Action Taken by Nursing Pulse Rate 133 H 133 H 132 H Pulse Rate [Apical] Pulse Rate from SpO2 Sensor 133 H 133 H 133 H Pulse Rhythm [Apical] Respiratory Rate 12 18 23 Respiratory Effort / Characteristics Respiratory Depth Respiratory Pattern Blood Pressure 168/60 H 159/61 H Blood Pressure [Right Arm] Blood Pressure Mean 96 93 Blood Pressure Mean [Right Arm] Pulse Oximetry 92 92 92 Oxygen Delivery Method Oxygen Flow Rate 12/13/18 15:16 12/13/18 15:30 12/13/18 15:34 Temperature 37.9 C H Temperature Source Oral Sepsis Recent Fever Within 48 Hours Sepsis New/Unexplained Change in Mental Status Sepsis Action Taken by Nursing Pulse Rate 132 H 131 H Pulse Rate [Apical] Pulse Rate from SpO2 Sensor 133 H 131 H Pulse Rhythm [Apical] Respiratory Rate 20 23 Respiratory Effort / Characteristics Respiratory Depth Respiratory Pattern Blood Pressure Blood Pressure [Right Arm] Blood Pressure Mean Blood Pressure Mean [Right Arm] Pulse Oximetry 93 92 Oxygen Delivery Method Oxygen Flow Rate 12/13/18 15:45 12/13/18 16:00 12/13/18 16:15 Temperature Temperature Source Sepsis Recent Fever Within 48 Hours Sepsis New/Unexplained Change in Mental Status Sepsis Action Taken by Nursing Pulse Rate 129 H 128 H 127 H Pulse Rate [Apical] Pulse Rate from SpO2 Sensor 129 H 128 H 127 H Pulse Rhythm [Apical] Respiratory Rate 19 17 23 Respiratory Effort / Characteristics Respiratory Depth Respiratory Pattern Blood Pressure 139/44 L Blood Pressure [Right Arm] Blood Pressure Mean 75 Blood Pressure Mean [Right Arm] Pulse Oximetry 95 94 94 Oxygen Delivery Method Room Air Oxygen Flow Rate 12/13/18 16:30 12/13/18 16:45 12/13/18 17:00 Temperature Temperature Source Sepsis Recent Fever Within 48 Hours Sepsis New/Unexplained Change in Mental Status Sepsis Action Taken by Nursing Pulse Rate 122 H 120 H 120 H Pulse Rate [Apical] Pulse Rate from SpO2 Sensor Pulse Rhythm [Apical] Respiratory Rate 18 19 21 Respiratory Effort / Characteristics Respiratory Depth Respiratory Pattern Blood Pressure 120/50 L Blood Pressure [Right Arm] Blood Pressure Mean 73 Blood Pressure Mean [Right Arm] Pulse Oximetry Oxygen Delivery Method Room Air Oxygen Flow Rate 12/13/18 17:01 12/13/18 17:15 12/13/18 17:30 Temperature Temperature Source Sepsis Recent Fever Within 48 Hours Sepsis New/Unexplained Change in Mental Status Sepsis Action Taken by Nursing Pulse Rate 120 H 119 H 118 H Pulse Rate [Apical] Pulse Rate from SpO2 Sensor 118 H 117 H Pulse Rhythm [Apical] Respiratory Rate 19 19 15 Respiratory Effort / Characteristics Respiratory Depth Respiratory Pattern Blood Pressure Blood Pressure [Right Arm] Blood Pressure Mean Blood Pressure Mean [Right Arm] Pulse Oximetry 96 95 Oxygen Delivery Method Oxygen Flow Rate 12/13/18 17:45 12/13/18 17:48 Temperature 37.5 C Temperature Source Oral Sepsis Recent Fever Within 48 Hours Sepsis New/Unexplained Change in Mental Status Sepsis Action Taken by Nursing Pulse Rate 119 H Pulse Rate [Apical] Pulse Rate from SpO2 Sensor 119 H Pulse Rhythm [Apical] Respiratory Rate 14 Respiratory Effort / Characteristics Respiratory Depth Respiratory Pattern Blood Pressure Blood Pressure [Right Arm] Blood Pressure Mean Blood Pressure Mean [Right Arm] Pulse Oximetry 96 Oxygen Delivery Method Room Air Oxygen Flow Rate Constitutional: Vital signs reviewed. Eyes: Pupils are equal round reactive to light. Conjunctiva are noninjected. ENT: Pharynx is clear without erythema or exudate. Mucous membranes are very dry. Neck supple without meningeal signs. Respiratory: Clear to auscultation bilaterally. Breath sounds are equal bilaterally. Cardiovascular: Tachycardic hr at 130. No rubs or gallops. GI: Soft, nondistended and tender in the lower [id number] abdomen. Bowel sounds are present. Colostomy on the left abodmen with brown input, no blood. Musculoskeletal: No peripheral edema. No lower extremity tenderness. Integumentary: No cyanosis. Neurological: The patient is awake and alert. No focal deficits. Psychiatric: Moaning and anxious. : Best catheter in place. Course 1350: The patient was seen and evaluated by the Resident Physician at this time. History and physical were discussed with me. 1409: Past medical records reviewed. The patient was evaluated in room C9, and a complete history and physical examination were performed. 1508: The resident reevaluated the patient at this time. She is doing better. 1511: Dr. Anjel GUTIÉRREZ Hospitalist was made aware of the case at this time. 1727: I checked on the patient. Still waiting for the hospitalist at this time. Her HR is 120. BP is stable. Administered Medications Discontinued Medications Acetaminophen (Tylenol) 1,000 mg PO NOW STA Stop: 12/13/18 14:11 Last Admin: 12/13/18 14:17 Dose: 1,000 mg Documented by: [id number] Fentanyl Citrate (Fentanyl Citrate) 50 mcg IV NOW STA Stop: 12/13/18 14:32 Last Admin: 12/13/18 14:38 Dose: 50 mcg Documented by: [id number] Vancomycin HCl 1 mg/ Sodium (Chloride) 500.02 mls @ 200 mls/hr IV NOW STA Stop: 12/13/18 16:36 Last Admin: 12/13/18 14:47 Dose: Not Given Documented by: [id number] Cefepime HCl (Maxipime) 2,000 mg in 12.5 mls @ 3.125 mls/min IV NOW STA Stop: 12/13/18 14:10 Last Admin: 12/13/18 14:31 Dose: 3.125 mls/min Documented by: [id number] Sodium Chloride (Nss 1000ml) 1,000 mls @ 999 mls/hr IV .Q1H1M ONE Stop: 12/13/18 15:15 Last Infusion: 12/13/18 15:14 Dose: 0 mls/hr Documented by: [id number] Admin: 12/13/18 14:16 Dose: 999 mls/hr Documented by: [id number] Vancomycin HCl 1,250 mg/ (Sodium Chloride) 525 mls @ 200 mls/hr IV NOW STA Stop: 12/13/18 16:59 Last Infusion: 12/13/18 16:45 Dose: 0 mls/hr Documented by: [id number] Admin: 12/13/18 14:30 Dose: 200 mls/hr Documented by: [id number] Ondansetron HCl (Zofran Odt) 4 mg PO NOW STA Stop: 12/13/18 14:32 Last Admin: 12/13/18 14:38 Dose: 4 mg Documented by: [id number] . Medical Decision Making Differential Diagnosis Differential Diagnosis includes: Sepsis, UTI, diverticulitis, pyelonephritis, influenza, pneumonia. Medical Records Attestation: I reviewed the patient's medical records. Home Medications Current Medication List: was personally reviewed by me Laboratory Data Attestation: I reviewed the patient's lab results. Result diagrams: 12/13/18 13:30 12/13/18 13:30 Lab Results 12/13/18 12/13/18 12/13/18 Range/Units 13:20 13:20 13:29 WBC (4.8-10.8) K/uL RBC (4.2-5.4) M/uL Hgb (12.0-16.0) g/dL Hct (37-47) % MCV (80-100) fL MCH (25-34) pg MCHC (32-36) g/dL RDW Std Deviation (36.4-46.3) fL RDW Coeff of Omar (11.5-14.5) % Plt Count (130-400) K/uL MPV (7.4-10.4) fL Immature Gran % (Auto) % Neut % (Auto) % Lymph % (Auto) % [place] % (Auto) % Eos % (Auto) % Baso % (Auto) % Immature Gran # (Auto) (0.00-0.02) K/uL Neut # (Auto) (1.4-6.5) K/uL Lymph # (Auto) (1.2-3.4) K/uL [place] # (Auto) (0.11-0.59) K/uL Eos # (Auto) (0-0.5) K/uL Baso # (Auto) (0-0.2) K/uL Absolute Nucleated RBC (0-0) K/uL Nucleated RBC % (auto) % PT (9.0-12.0) Seconds INR (0.9-1.1) APTT (21.0-31.0) Seconds PTT Ratio Sodium (136-145) mmol/L Potassium (3.5-5.1) mmol/L Chloride (98-107) mmol/L Carbon Dioxide (21-32) mmol/L Anion Gap (3-11) BUN (7-18) mg/dl Creatinine (0.6-1.2) mg/dl Est Cr Clr Drug Dosing ml/min Est GFR ( Amer) Est GFR (Non-Af Amer) BUN/Creatinine Ratio (10-20) Glucose (70-99) mg/dl POC Lactic Acid Woodrow 2.13 H (0.90-1.70) mmol/L Calcium (8.5-10.1) mg/dl Total Bilirubin (0.2-1) mg/dl AST (15-37) U/L ALT (12-78) U/L Alkaline Phosphatase (45-117) U/L Troponin I (0-0.045) ng/ml Total Protein (6.4-8.2) gm/dl Albumin (3.4-5.0) gm/dl Globulin (2.5-4.0) gm/dl Albumin/Globulin Ratio (0.9-2) Lipase (73-393) U/L Urine Color Yellow Urine Appearance Clear (Clear) Urine pH 5.0 (4.5-7.5) Ur Specific [place] 1.016 (1.000-1.030) Urine Protein Negative (Negative) Urine Glucose (UA) Negative (Negative) Urine Ketones Negative (Negative) Urine Blood Negative (Negative) Urine Nitrite Negative (Negative) Urine Bilirubin Negative (Negative) Urine Urobilinogen Negative (Negative) Ur Leukocyte Esterase Negative (Negative) Influenza Type A Ag Neg for Influ A (Neg) Influenza Type B Ag Neg for Influ B (Neg) 12/13/18 12/13/18 12/13/18 Range/Units 13:30 13:30 14:26 WBC 22.98 H (4.8-10.8) K/uL RBC 3.55 L (4.2-5.4) M/uL Hgb 10.3 L (12.0-16.0) g/dL Hct 33.9 L (37-47) % MCV 95.5 (80-100) fL MCH 29.0 (25-34) pg MCHC 30.4 L (32-36) g/dL RDW Std Deviation 52.3 H (36.4-46.3) fL RDW Coeff of Oamr 15.0 H (11.5-14.5) % Plt Count 287 (130-400) K/uL MPV 10.0 (7.4-10.4) fL Immature Gran % (Auto) 0.7 % Neut % (Auto) 78.6 % Lymph % (Auto) 12.5 % [place] % (Auto) 6.4 % Eos % (Auto) 1.7 % Baso % (Auto) 0.1 % Immature Gran # (Auto) 0.15 H (0.00-0.02) K/uL Neut # (Auto) 18.08 H (1.4-6.5) K/uL Lymph # (Auto) 2.87 (1.2-3.4) K/uL [place] # (Auto) 1.47 H (0.11-0.59) K/uL Eos # (Auto) 0.38 (0-0.5) K/uL Baso # (Auto) 0.03 (0-0.2) K/uL Absolute Nucleated RBC 0.02 H (0-0) K/uL Nucleated RBC % (auto) 0.1 % PT 10.3 (9.0-12.0) Seconds INR 1.0 (0.9-1.1) APTT 27.6 (21.0-31.0) Seconds PTT Ratio 1.0 Sodium 140 (136-145) mmol/L Potassium 3.9 (3.5-5.1) mmol/L Chloride 103 (98-107) mmol/L Carbon Dioxide 29 (21-32) mmol/L Anion Gap 8.0 (3-11) BUN 17 (7-18) mg/dl Creatinine 1.00 (0.6-1.2) mg/dl Est Cr Clr Drug Dosing 39.1 ml/min Est GFR ( Amer) 59.5 Est GFR (Non-Af Amer) 51.3 BUN/Creatinine Ratio 16.7 (10-20) Glucose 131 H (70-99) mg/dl POC Lactic Acid Woodrow (0.90-1.70) mmol/L Calcium 8.9 (8.5-10.1) mg/dl Total Bilirubin 0.3 (0.2-1) mg/dl AST 11 L (15-37) U/L ALT 23 (12-78) U/L Alkaline Phosphatase 101 (45-117) U/L Troponin I < 0.015 (0-0.045) ng/ml Total Protein 7.2 (6.4-8.2) gm/dl Albumin 3.2 L (3.4-5.0) gm/dl Globulin 4.0 (2.5-4.0) gm/dl Albumin/Globulin Ratio 0.8 L (0.9-2) Lipase 58 L (73-393) U/L Urine Color Urine Appearance (Clear) Urine pH (4.5-7.5) Ur Specific [place] (1.000-1.030) Urine Protein (Negative) Urine Glucose (UA) (Negative) Urine Ketones (Negative) Urine Blood (Negative) Urine Nitrite (Negative) Urine Bilirubin (Negative) Urine Urobilinogen (Negative) Ur Leukocyte Esterase (Negative) Influenza Type A Ag (Neg) Influenza Type B Ag (Neg) Imaging Data Attestation: I personally reviewed and interpreted this imaging study as follows: Radiologist's Impression: CT abd pelvis wo con CT DOSE: 470.79 mGy.cm HISTORY: Pain. Sepsis. abdominal pain, septic TECHNIQUE: Multiaxial CT images of the abdomen and pelvis were performed without contrast. A dose lowering technique was utilized adhering to the principles of ALARA. COMPARISON STUDY: 11/21/2018 FINDINGS: Interval development of right basilar infiltrate. This shows central consolidative change. Liver spleen and pancreas are grossly unremarkable. Bilateral nonobstructing renal calcifications are present. Prior cholecystectomy. Scattered colonic diverticuli. Central ostomy with a prior sigmoid colonic resection. This is nonobstructive but appears to be unremarkable. Bilateral total hip arthroplasties are present. No evidence for free fluid within the pelvic cul-de-sac. IMPRESSION: 1. Interval development of a consolidated right lower lobe infiltrate. 2. Chronic and postoperative changes of the abdomen and pelvis with no acute process. The above report was generated using voice recognition software. It may contain grammatical, syntax or spelling errors. Electronically signed by: Robinson Turner M.D. 12/13/2018 2:59 PM XR chest 1V portable CLINICAL HISTORY: fever dyspnea COMPARISON STUDY: 09/26/2018 FINDINGS: Mild stable cardiomegaly. Chronic interstitial prominence throughout both hemithoraces. Mild chronic elevation right hemidiaphragm. No well-defined focal infiltrate. IMPRESSION: Chronic change. No acute process. The above report was generated using voice recognition software. It may contain grammatical, syntax or spelling errors. Electronically signed by: Robinson Turner M.D. 12/13/2018 2:04 PM ECG Data Attestation: I personally reviewed and interpreted this ECG as follows: Indication: chest pain, nausea and weakness Rate (beats per minute): 138 Rhythm: sinus tachycardia Findings: + nonspecific-ST abn; no PVC and no acute ischemic change Blood Pressure Blood Pressure Findings: Elevated blood pressure Blood Pressure Disposition: Referred to patients primary care provider MDM Narrative I did perform a limited focused review of portions of the patient's old chart on the electronic medical record. The patient was admitted to the hospital on November 23 for recurrent UTI and diverticulitis. She was d/c on Cefdinir and Flagyl. Resident Physician Supervision Note: I did evaluate and examine this patient myself. I did guide management for the patient. I agree with the resident's ( ) assessment as discussed. I did evaluate the patient as noted above. Patient is presenting with fever and tachycardia. I was concerned about sepsis. The sepsis alert was called. IV access was established. The patient was treated with normal saline IV. She was also given Tylenol for fever. She was started on antibiotics empirically with cefepime and vancomycin. The patient was placed on a continuous equipment monitor phototypesetting. I did order and personally review the patient's 12-lead EKG and chest x-ray as described above. Chest x-ray does not demonstrate pneumonia. Twelve- lead EKG demonstrates tachycardia with nonspecific findings. I did order and review the patient's blood work as noted in the electronic medical record. Her white blood cell count is over 22,000. Lactic acid is not elevated. I did order a CT of the abdomen and pelvis. I did review the images myself as well as the radiology report as described above. She has no evidence of acute intra- abdominal process. She does have a right-sided pneumonia. Urinalysis does not show signs of infection. Rapid flu testing was negative. The patient's tachycardia was improved and her fever did come down. The patient was discussed with the hospitalist and case preparer and liner. Impression & Plan Sepsis, Right lower lobe pulmonary infiltrate Critical Care Time I have personally spent 35 minutes of critical care time in the direct management of this patient. This includes bedside care, interpretation of diagnostic studies, and testing, discussion with consultants, patient, and family members, and other required patient management activities. These minutes are in excess of all separately billable procedures. Discharge Plan Visit Data Chief Complaint: Fever ED Provider: Jose Aldana ED Midlevel Provider: Zuleyka Madden Discharge Problem: Sepsis, Right lower lobe pulmonary infiltrate Patient Disposition: Being Evaluated by Hospitalist Forms Stand Alone Forms: My [facility] Prescriptions Prescriptions: No Action fexofenadine [Cora Allergy] 60 mg tablet 60 mg PO DAILY PRN (Reason: Congestion) RF: 0 aspirin 81 mg tablet,delayed release (DR/EC) 81 mg PO QAM RF: 0 cholecalciferol (vitamin D3) 2,000 unit capsule 2,000 units PO QAM RF: 0 levothyroxine [Synthroid] 88 mcg tablet 88 mcg PO QAM RF: 0 ascorbic acid (vitamin C) 500 mg tablet 500 mg PO QAM RF: 0 hydroxychloroquine 200 mg tablet 300 mg PO QAM RF: 0 ondansetron HCl [Zofran] 8 mg Tablet 8 mg PO Q6 PRN (Reason: Nausea) RF: 0 clopidogrel [Plavix] 75 mg Tablet 75 mg PO QAM RF: 0 lidocaine 5 % Gel 1 applic Topical QID PRN (Reason: Back Pain) RF: 0 diclofenac sodium [Voltaren] 1 % gel 4 gm TOP QID MDD 16G PRN (Reason: Pain) RF: 0 duloxetine [Cymbalta] 60 mg Capsule,Delayed Release(Dr/Ec) 60 mg PO QAM RF: 0 fluticasone [Flonase Allergy Relief] 50 mcg/actuation [place],Suspension 2 spray INTRANASAL DAILY PRN (Reason: Congestion) RF: 0 cyanocobalamin (vitamin B-12) [Vitamin B-12] 1,000 mcg Tablet 1,000 mcg PO QAM RF: 0 oxycodone 5 mg Tablet 10 mg PO BID RF: 0 Ocuvite with Lutein 1,000 unit-200 mg-60 unit-2 mg Tablet 1 tab PO QAM RF: 0 gabapentin 300 mg capsule 300 mg PO TID RF: 0 vitamin B complex Tablet 1 tab PO QAM RF: 0 polyethylene glycol 3350 [Miralax] 17 gram powder in packet 17 gm PO QAM PRN (Reason: Constipation) RF: 0 prazosin 1 mg capsule 1 mg PO HS PRN (Reason: Unknown) RF: 0 Dexilant 60 mg Capsule,Biphase Delayed Releas 60 mg PO BID RF: 0 midodrine 5 mg Tablet 5 mg PO TID@0800,1200,1700 RF: 0 prednisone 10 mg tablet 10 mg PO QAM RF: 0 Azo Urinary Pain Relief 97.5 mg Tablet 97.5 mg PO TID PRN (Reason: .URINARY PAIN) RF: 0 amoxicillin 500 mg capsule 500 mg PO DAILY RF: 0 atorvastatin 40 mg tablet 40 mg PO QAM RF: 0 doxycycline hyclate 100 mg capsule 100 mg PO DAILY RF: 0 quetiapine 200 mg tablet 200 mg PO HS RF: 0 bifidobacteri bifid.and longum 460 mg (9-1 bill.cell) capsule 1 cap PO DAILY RF: 0 duloxetine 30 mg Capsule,Delayed Release(Dr/Ec) 30 mg PO QAM Qty: 0 RF: 0 Referrals Referrals: Nidhi Gardner MD [Primary Care Provider] - Discharge Problem: Sepsis Qualifiers: Sepsis type: sepsis due to unspecified organism Qualified Code(s): A41.9 - Sepsis, unspecified organism The scribe's documentation has been prepared under my direction and personally reviewed by me in its entirety. I confirm that the note above accurately reflects all work, treatment, procedures, and medical decision making performed by me.
[2018-12-13] MEDS ORDERED: NON-FORMULARY MEDICATION (Lidocaine 1 APPLN) TOP PRN (18:07)
--- NOTE | 2018-12-13 18:13 | History & Physical Report ---
Date of Service December 13, 2018 Assessment & Plan (1) Sepsis: Likely urosepsis She does have an infiltrate in her RLL however I do not believe this is causing her clinical picture. At this time will give Flagyl IV to cover for anaerobic covergae. Given her history of recent urological procedure and UTIs, will place patient on dapto as her last urine culture showed VRE. She also is tachycardic, will place on IVFs. Will give another liter of LR. First dose of daptomycin given in ER. Informed pharmacy of this. Will admit to Tele as her B/P is low 100s and patient remains tachycardic. Confirmed code status with patient: full code CKD III -Current Cr 1.00 GFR in 50s -Ordered LR -Renally dose meds -Continue to monitor Nephrolithiasis -Noted on imaging, known diagnosis, does not appear to be obstructed. Perhaps stones are cause of recurrent infections? SLE/RA -patient on plaquenil and daily prednisone -Oxy BID and tylenol prn for pain CDHF -Last TTE 11/29 with EF 55-60%, grade I Diastolic dysfx. She does have a small chamber of her LV. Currently patient is not in acute CHF. Will closely monitor her fluid status. PAD -continue plavix, asa Hypothyroid -synthroid as prescribed Chronic anemia -Pt baseline of Hb 8-10, currently 10.3 -Previously investigated and found to be ACD -Continue to monitor H/O orthostasis, vasovagal syncope -Midodrine 5mg TID continued Neuropathy -Cont gabapentin and cymbalta MDD -Seroquel 200mg hs Chronic hypoxic Resp failure -Patient had required up to 3L previous admissions and at home -Satting well on 2l nasal cannula. DVTP: initalliy placed on heparin, but held due to past hematoma. will defer to day team. CODE: full Dispo: tele History of Present Illness Primary Care Provider: Nidhi Gardner MD 87 yo female who had a recent urological procedure yesterday comes in with lower abdominal pain, fever. Prior to this she was her normal self and was completely asymptomatic prior to this morning. She does followup with Urology as an outpatient and ID for her recurrent UTIs. Patient is currently on a 2 week course of amoxicillin. Patient this AM awoke with RLQ dull abdominal pain, moderate to severe intensity, non radiating, associatd with nausea and poor apetite. She was brought to ER which showed no signs of acute infection. Patient did not have signs of diverticulitis. She already had a hysterectomy and cholecystectomy in the past. Patient was placed on vanco and iVF and admissions were called. Reviewing her past records, patient had VRE in last hospital stay. Allergies Allergy/AdvReac Type Severity Reaction Status Date / Time nitrofurantoin Allergy Severe HIVES Verified 12/13/18 15:35 scallops Allergy Severe THROAT Verified 12/13/18 15:35 SWELLS Cipro Allergy Intermediate HIVES Verified 06/03/18 16:34 ciprofloxacin Allergy Intermediate HIVES Verified 12/13/18 15:35 latex Allergy Intermediate RASH Verified 12/13/18 15:35 Quinolones Allergy Intermediate HIVES Verified 12/13/18 15:35 fluticasone Allergy Unknown ADVAIR-UNKN Verified 12/13/18 15:35 OWN salmeterol Allergy Unknown ADVAIR Verified 12/13/18 15:35 celecoxib AdvReac Intermediate barretts Verified 12/13/18 15:35 esophagus lactose AdvReac Intermediate GI UPSET Verified 12/13/18 15:35 morphine AdvReac Intermediate NAUSEA AND Verified 12/13/18 15:35 VOMITING Home Medications Home Medications Medication Instructions Recorded Confirmed Type ascorbic acid (vitamin C) 500 mg 500 mg PO QAM 07/07/18 12/13/18 History tablet aspirin 81 mg tablet,delayed 81 mg PO QAM 07/07/18 12/13/18 History release cholecalciferol (vitamin D3) 2,000 2,000 units PO QAM 07/07/18 12/13/18 History unit capsule fexofenadine 60 mg tablet 60 mg PO DAILY PRN tab 07/07/18 12/13/18 History hydroxychloroquine 200 mg tablet 300 mg PO QAM tab 07/07/18 12/13/18 History levothyroxine 88 mcg tablet 88 mcg PO QAM 07/07/18 12/13/18 History nitroglycerin 0.4 mg sublingual 0.4 mg SL Q5M PRN #1 tab 07/07/18 12/13/18 Rx tablet clopidogrel [Plavix] 75 mg PO QAM 08/10/18 12/13/18 History diclofenac sodium [Voltaren] 4 gm TOP QID PRN MDD 16G 08/10/18 12/13/18 History duloxetine [Cymbalta] 60 mg PO QAM 08/10/18 12/13/18 History fluticasone [Flonase Allergy 2 spray INTRANASAL DAILY PRN 08/10/18 12/13/18 History Relief] lidocaine 1 applic TOPICAL QID PRN 08/10/18 12/13/18 History ondansetron HCl [Zofran] 8 mg PO Q6 PRN 08/10/18 12/13/18 History Ocuvite with Lutein 1 tab PO QAM 08/31/18 12/13/18 History cyanocobalamin (vitamin B-12) 1,000 mcg PO QAM 08/31/18 12/13/18 History [Vitamin B-12] oxycodone 10 mg PO BID 08/31/18 12/13/18 History gabapentin 300 mg PO TID 09/26/18 12/13/18 History polyethylene glycol 3350 [Miralax] 17 gm PO QAM PRN 09/26/18 12/13/18 History vitamin B complex 1 tab PO QAM 09/26/18 12/13/18 History Azo Urinary Pain Relief 97.5 mg PO TID PRN 11/07/18 12/13/18 History Dexilant 60 mg PO BID 11/07/18 12/13/18 History midodrine 5 mg PO TID@0800,1200,1700 11/07/18 12/13/18 History prazosin 1 mg PO HS PRN 11/07/18 12/13/18 History prednisone 10 mg PO QAM 11/07/18 12/13/18 History bifidobacteri bifid.and longum 1 cap PO DAILY 11/21/18 12/13/18 History duloxetine 30 mg PO QAM #0 cap 11/25/18 12/13/18 Rx amoxicillin 500 mg PO DAILY 12/13/18 12/13/18 History atorvastatin 40 mg PO QAM 12/13/18 12/13/18 History doxycycline hyclate 100 mg PO DAILY 12/13/18 12/13/18 History quetiapine 200 mg PO HS 12/13/18 12/13/18 History Past Med/Surg History Medical History Rheumatoid arthritis Chronic back pain (Chronic) Depression (Chronic 03/10/13) Major depressive disorder, recurrent episode with anxious distress Acute gastritis (03/23/12) Cholecystectomy (03/10/13) Colostomy present Diabetes mellitus Diverticula of colon Falls frequently History of colitis Infected abrasion of great toe of left foot Infected abrasion of great toe of right foot Lactose intolerance Low blood pressure Pituitary adenoma (03/10/13) Slurred speech TIA (transient ischemic attack) Vasovagal syncope (03/10/13) Surgical History H/O: hysterectomy History of hip replacement History of surgical removal of pituitary gland History of surgical removal of pituitary gland Hx of cholecystectomy Family History Other Cancer Diabetes Gallbladder disease HTN (hypertension) Heart disease Seizure Social History Preferred Language: Azeri Communication Ability: Effective Manager Diabetes Required: No Beliefs That Will Affect Care: Anglican marital status: / Current Living Situation: Alone Current Living Situation Comment: With [facility] Other Information That Helps Us Care for You: No Feels Safe at Home: Yes Safety Concerns: Feels Safe At This Time Smoking Status: Former smoker Hx Alcohol Use: No Hx Substance Use: No Review of Systems All systems reviewed & are unremarkable except as noted in HPI & below Constitutional: + fever, + chills, + fatigue, + malaise, + weakness and + anorexia Eyes: no diplopia ENMT: no tinnitus Respiratory: no dyspnea Cardiovascular: no chest pain, no palpitations, no syncope and no edema Gastrointestinal: + abdominal pain and + vomiting Genitourinary (Female): + dysuria, + flank pain and + pelvic pain Integumentary: + unusual bruising (hematoma on stomach from previous lovenox injection); no lesions Psych: No depression Physical Exam Vital Signs (Past 24 Hours): Last Vital Signs Temp 37.5 C 12/13/18 17:48 Pulse 116 H 12/13/18 18:08 Resp 17 12/13/18 18:08 BP 137/56 L 12/13/18 18:08 Pulse Ox 96 12/13/18 17:45 Physical Exam: Constitutional: WD/WN, vitals as above, appears ill appearing and in mild distress. Eyes: PERRL, conjunctivae normal, anicteric sclerae ENMT: external ear and nose normal, oropharynx normal Neck: normal visual inspection Respiratory: normal respiratory effort, lungs clear to auscultation Cardiovascular: Tachycardic regular rhythm, , no murmur, no edema Gastrointestinal (Abdomen): Percussion/Palpation: + abdomen tender (RLQ , and hypogastric region), ecchymosis noted on RLQ Musculoskeletal: no cyanosis or clubbing, extremities motor strength 5/5 Skin: no rashes, warm and dry Neurologic: PERRL, EOMI, accommodation nl, no face palsy, no dysarthria Psychiatric: Awake and alert, euthymic affect (1) Sepsis Sepsis type: sepsis due to unspecified organism Qualified Code(s): A41.9 - Sepsis, unspecified organism
[2018-12-13] MEDS ORDERED: DAPTOMYCIN CONSULT ACTIVE PRN (18:18)
[2018-12-13] MEDS ORDERED: DICLOFENAC SOD 1% GEL 100 GM TUBE EXT PRN (20:15)
[2018-12-13] MEDS: ONDANSETRON INJ 2 MG/ML 2 ML VIAL IV PRN (20:15)
[2018-12-13] MEDS: ACETAMINOPHEN 1,000 MG/100 ML VIAL IV PRN (20:43)
[2018-12-13] MEDS: GABAPENTIN 300 MG CAP PO SCH (20:58)
[2018-12-13] MEDS ORDERED: DAPTOmycin 325 MG in SYRINGE 0 ML IV SCH (21:00)
[2018-12-13] MEDS ORDERED: OXYCODONE HCL IR 5 MG TAB (IMMEDIATE RELEASE) PO SCH (21:00)
[2018-12-13] MEDS: PANTOprazole 40 MG TAB PO SCH (21:00)
[2018-12-13] MEDS: QUETIAPINE FUMARATE 200 MG TAB PO SCH (21:04)
[2018-12-13] MEDS: metroNIDAZOLE 500 MG/100 ML BAG IV SCH (21:33)
[2018-12-13] MEDS ORDERED: HEPARIN SOD 5,000 UNIT/0.5 ML VIAL SQ SCH (22:00)
[2018-12-14] MEDS ORDERED: LACTATED RINGER'S 1,000 ML IV SCH (01:30)
[2018-12-14] MEDS: LEVOTHYROXINE SODIUM 88 MCG TABLET PO SCH (05:31)
[2018-12-14] MEDS: metroNIDAZOLE 500 MG/100 ML BAG IV SCH (05:31)
[2018-12-14] MEDS: OXYCODONE HCL IR 5 MG TAB (IMMEDIATE RELEASE) PO PRN ×2 (05:40→21:00)
--- NOTE | 2018-12-14 08:38 | Hospitalist Progress Note ---
Date of Service December 14, 2018 Assessment & Plan (1) Sepsis: previous attending attributed this to sepsis from urinary source, also noted to have RLL pneumonia on CT with concern for gram negative pneumonia history of recent urological procedure and frequent UTIs, on dapto as her last urine culture showed VRE. Patient is on daptomycin and Zosyn at this time Confirmed code status with patient: full code CKD III -Renally dose meds Possible gastritis or dyspepsia we will institute some Pepcid IV Nephrolithiasis -Noted on imaging, known diagnosis, does not appear to be obstructed. Perhaps stones are nidus of recurrent infections? SLE/RA -patient on plaquenil and daily prednisone, watch for steroid withdrawal -Oxy BID will be stopped due to nausea but we will continue tylenol prn for pain Chronic Diastolic heart failure -Last TTE 11/29 with EF 55-60%, grade I Diastolic dysfx. She does have a small chamber of her LV. Currently not in acute CHF. Pheripheral artery disease -continue plavix, asa Hypothyroid-synthroid Chronic anemia -Pt baseline of Hb 8-10, -Previously investigated and found to be Anemia of chronic disease H/O orthostasis, vasovagal syncope -Midodrine 5mg TID continued Neuropathy gabapentin and cymbalta Major Depressive disorder -Seroquel 200mg hs Chronic hypoxic Resp failure -Patient had required up to 3L previous admissions and at home Subjective Patient had persistent right-sided chest pain that is changed with position and associated nausea. On exam she is found out to have epigastric abdominal pain however this did not have any great improvement with a GI cocktail. She is not having any significant coughing nor having any dysuria she has a history of a peptic ulcer approximately 60 years ago Review of Systems ROS: well nourished well developed. She is in mild to moderate distress at times No double vision blurry vision No problems with speech or swallowing No palpitations, chest pain or pressure No Wheezing or breathing issues Epigastric abdominal pain with nausea but no vomiting or diarrhea No burning urine urine frequency or changes in color No focal joint pain or muscle pain No skin rashes or oral lesions No unusual bruising or bleeding No focused back pain or numbness or loss of strength No changes in memory or confusion Physical Exam Vital Signs (Past 24 Hours): Last Vital Signs Temp 37.4 C 12/14/18 07:07 Pulse 120 H 12/14/18 07:07 Resp 19 12/14/18 07:07 BP 135/66 12/14/18 07:07 Pulse Ox 93 12/14/18 07:07 The patient appeared well nourished and normally developed. In mild to moderate discomfort at times Vital signs as documented. Head exam is unremarkable. normocephalic, atraumatic Neck is without jugular venous distension, thyromegaly, or lymphademopathy Lungs are clear to auscultation and percussion. Cardiac exam reveals Rhythm is regular. First and second heart sounds normal. Abdominal exam reveals normal bowel sounds, no masses, no organomegaly only mild tenderness in the epigastrium to palpation Extremities are nonedematous and both pedal pulses are present Neurologic exam is A&Ox3, no focal deficits, strength is equal bilateral Psychologically seems neither anxious or depressed Skin is warm Dry without bruises or lesions (1) Sepsis Sepsis type: sepsis due to unspecified organism Qualified Code(s): A41.9 - Sepsis, unspecified organism
[2018-12-14 08:58] LABS: BUN Creatinine Ratio 14.6 (10-20); Calcium 8.2 mg/dl (8.5-10.1); Creatinine Clr Calc Pharmacy 38.9 ml/min; Est GFR (African American) 59.8; Est GFR (Non-African American) 51.6; Potassium 3.9 mmol/L (3.5-5.1)
[2018-12-14] MEDS: PANTOprazole 40 MG TAB PO SCH ×2 (09:29→21:01)
[2018-12-14] MEDS: DULOXETINE HCL 30 MG CAP PO SCH (09:29)
[2018-12-14] MEDS: ASCORBIC ACID 500 MG TAB PO SCH (09:29)
[2018-12-14] MEDS: HYDROXYCHLOROQUINE SULFATE 200 MG TAB PO SCH (09:29)
[2018-12-14] MEDS: MIDODRINE HCL 2.5 MG TAB PO SCH ×3 (09:29→17:03)
[2018-12-14] MEDS: VITAMIN B COMPLEX TAB PO SCH (09:29)
[2018-12-14] MEDS: CHOLECALCIFEROL 1,000 UNITS TAB PO SCH (09:29)
[2018-12-14] MEDS: DULOXETINE HCL 60 MG CAP PO SCH (09:29)
[2018-12-14] MEDS: predniSONE 10 MG TABLET PO SCH (09:29)
[2018-12-14] MEDS: ATORVASTATIN 40 MG TAB PO SCH (09:29)
[2018-12-14] MEDS: ASPIRIN 81 MG ECTAB PO SCH (09:30)
[2018-12-14] MEDS: GABAPENTIN 300 MG CAP PO SCH ×3 (09:30→21:01)
[2018-12-14] MEDS: CLOPIDOGREL BISULFATE 75 MG TAB PO SCH (09:30)
[2018-12-14] MEDS: ACETAMINOPHEN 1,000 MG/100 ML VIAL IV PRN (09:43)
[2018-12-14] MEDS ORDERED: DAPTOmycin 425 MG in SYRINGE 0 ML IV SCH (10:00)
[2018-12-14] MEDS: ONDANSETRON INJ 2 MG/ML 2 ML VIAL IV PRN (10:37)
[2018-12-14] MEDS ORDERED: MoRPHine SULFATE 2 MG/ML CARP IV STA (10:59)
[2018-12-14] MEDS ORDERED: MoRPHine SULFATE 4 MG/ML 1 ML CARP\\VIAL ONE (11:09)
--- NOTE | 2018-12-14 11:26 | Infectious Disease Consult ---
Date of Consultation December 14, 2018 Assessment & Plan (1) Sepsis: 88-year-old female with clinical picture of sepsis with CT scan suggesting possible right basilar pneumonia which would explain her GI symptoms. No evidence of urinary tract infection based on urinalysis results. Will disconti nue present antibiotics and start Zosyn, as potentially this could be hospital- acquired pathogen. Pro-calcitonin ordered. Await final culture results. Will follow. (2) Right lower lobe pulmonary infiltrate: History of Present Illness Reason for Consultation: Sepsis, likely urinary Attending Physician: Jose Wei MD History of Present Illness 88-year-old female well-known to the infectious disease service who we follow because of recurrent urinary tract infections, also history of chronic diastolic heart failure, stage III chronic kidney disease, lupus, hypothyroidism, peripheral arterial disease, recently treated for enterococcal urinary tract infection with resolution of symptoms, who now presents to the hospital with relatively sudden onset of fever, abdominal pain, nausea and vomiting, and slight cough. Has been started empirically on daptomycin and metronidazole, cultures are pending. CT scan of the abdomen shows no significant intra- abdominal pathology, but there is the presence of right basilar consolidation. No sputum production. Of note is urinalysis which is benign without evidence of pyuria. Denies any flank pain. No diarrhea. 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 Allergies Allergy/AdvReac Type Severity Reaction Status Date / Time nitrofurantoin Allergy Severe HIVES Verified 12/13/18 15:35 scallops Allergy Severe THROAT Verified 12/13/18 15:35 SWELLS Cipro Allergy Intermediate HIVES Verified 06/03/18 16:34 ciprofloxacin Allergy Intermediate HIVES Verified 12/13/18 15:35 latex Allergy Intermediate RASH Verified 12/13/18 15:35 Quinolones Allergy Intermediate HIVES Verified 12/13/18 15:35 fluticasone Allergy Unknown ADVAIR-UNKN Verified 12/13/18 15:35 OWN salmeterol Allergy Unknown ADVAIR Verified 12/13/18 15:35 celecoxib AdvReac Intermediate barretts Verified 12/13/18 15:35 esophagus lactose AdvReac Intermediate GI UPSET Verified 12/13/18 15:35 morphine AdvReac Intermediate NAUSEA AND Verified 12/13/18 15:35 VOMITING Home Medications Home Medications Medication Instructions Recorded Confirmed Type ascorbic acid (vitamin C) 500 mg 500 mg PO QAM 07/07/18 12/13/18 History tablet aspirin 81 mg tablet,delayed 81 mg PO QAM 07/07/18 12/13/18 History release cholecalciferol (vitamin D3) 2,000 2,000 units PO QAM 07/07/18 12/13/18 History unit capsule fexofenadine 60 mg tablet 60 mg PO DAILY PRN tab 07/07/18 12/13/18 History hydroxychloroquine 200 mg tablet 300 mg PO QAM tab 07/07/18 12/13/18 History levothyroxine 88 mcg tablet 88 mcg PO QAM 07/07/18 12/13/18 History nitroglycerin 0.4 mg sublingual 0.4 mg SL Q5M PRN #1 tab 07/07/18 12/13/18 Rx tablet clopidogrel [Plavix] 75 mg PO QAM 08/10/18 12/13/18 History diclofenac sodium [Voltaren] 4 gm TOP QID PRN MDD 16G 08/10/18 12/13/18 History duloxetine [Cymbalta] 60 mg PO QAM 08/10/18 12/13/18 History fluticasone [Flonase Allergy 2 spray INTRANASAL DAILY PRN 08/10/18 12/13/18 History Relief] lidocaine 1 applic TOPICAL QID PRN 08/10/18 12/13/18 History ondansetron HCl [Zofran] 8 mg PO Q6 PRN 08/10/18 12/13/18 History Ocuvite with Lutein 1 tab PO QAM 08/31/18 12/13/18 History cyanocobalamin (vitamin B-12) 1,000 mcg PO QAM 08/31/18 12/13/18 History [Vitamin B-12] oxycodone 10 mg PO BID 08/31/18 12/13/18 History gabapentin 300 mg PO TID 09/26/18 12/13/18 History polyethylene glycol 3350 [Miralax] 17 gm PO QAM PRN 09/26/18 12/13/18 History vitamin B complex 1 tab PO QAM 09/26/18 12/13/18 History Azo Urinary Pain Relief 97.5 mg PO TID PRN 11/07/18 12/13/18 History Dexilant 60 mg PO BID 11/07/18 12/13/18 History midodrine 5 mg PO TID@0800,1200,1700 11/07/18 12/13/18 History prazosin 1 mg PO HS PRN 11/07/18 12/13/18 History prednisone 10 mg PO QAM 11/07/18 12/13/18 History bifidobacteri bifid.and longum 1 cap PO DAILY 11/21/18 12/13/18 History duloxetine 30 mg PO QAM #0 cap 11/25/18 12/13/18 Rx amoxicillin 500 mg PO DAILY 12/13/18 12/13/18 History atorvastatin 40 mg PO QAM 12/13/18 12/13/18 History doxycycline hyclate 100 mg PO DAILY 12/13/18 12/13/18 History quetiapine 200 mg PO HS 12/13/18 12/13/18 History Patient History Medical History Rheumatoid arthritis Chronic back pain (Chronic) Depression (Chronic 03/10/13) Major depressive disorder, recurrent episode with anxious distress Acute gastritis (03/23/12) Cholecystectomy (03/10/13) Colostomy present Diabetes mellitus Diverticula of colon Falls frequently History of colitis Infected abrasion of great toe of left foot Infected abrasion of great toe of right foot Lactose intolerance Low blood pressure Pituitary adenoma (03/10/13) Slurred speech TIA (transient ischemic attack) Vasovagal syncope (03/10/13) Surgical History H/O: hysterectomy History of hip replacement History of surgical removal of pituitary gland History of surgical removal of pituitary gland Hx of cholecystectomy Family History Other Cancer Diabetes Gallbladder disease HTN (hypertension) Heart disease Seizure Social History Preferred Language: Spanish Communication Ability: Effective Railroad Crossing Protection Maintainer Required: No Beliefs That Will Affect Care: Congregational marital status: / Current Living Situation: Alone Current Living Situation Comment: With [facility] Other Information That Helps Us Care for You: No Feels Safe at Home: Yes Safety Concerns: Feels Safe At This Time Smoking Status: Former smoker Hx Alcohol Use: No Hx Substance Use: No Review of Systems All systems were reviewed and are negative except as per HPI Physical Exam Vital Signs (Past 24 Hours): Last Vital Signs Temp 37.0 C 12/14/18 10:44 Pulse 108 H 12/14/18 10:44 Resp 20 12/14/18 10:44 BP 110/64 12/14/18 10:44 Pulse Ox 95 12/14/18 10:44 Constitutional: WD/WN, vitals as above + ill appearing; no acute distress Eyes: PERRL, conjunctivae normal, anicteric sclerae ENMT: external ear and nose normal, oropharynx normal Neck: trachea midline, no thyromegaly neck nontender Respiratory: normal percussion; no respiratory distress and does not use ac cessory muscles Auscultation: + rales (Right base) Cardiovascular: Rate/Rhythm: regular rate and regular rhythm Heart Sounds: normal S1 and normal S2; no gallop, no murmur and no cardiac rub Vessels: normal peripheral pulses; no JVD Gastrointestinal (Abdomen): Inspection/Auscultation: abdomen normal to inspection and normal bowel sounds Percussion/Palpation: + abdomen tender; no hepatosplenomegaly and no abdominal mass Musculoskeletal: no cyanosis or clubbing, extremities motor strength 5/5 Spine: thoracic spine normal to inspection and lumbar spine normal to inspection; no cervical spinal tenderness Skin: no rashes, warm and dry normal turgor; no lesions Neurologic: patellar DTR's 2+ bilat, sensation intact no focal motor deficits Psychiatric: A+Ox3, euthymic affect Orientation: cooperative Lymphatic: no cervical or axillary lymphadenopathy no inguinal lymphadenopathy Results & Data Laboratory Results Short CBC 12/13/18 Range/Units 13:30 WBC 22.98 H (4.8-10.8) K/uL Hgb 10.3 L (12.0-16.0) g/dL Hct 33.9 L (37-47) % Plt Count 287 (130-400) K/uL BMP 12/13/18 12/14/18 13:30 08:23 Sodium 140 138 Potassium 3.9 3.9 Chloride 103 105 Carbon Dioxide 29 28 BUN 17 14 Creatinine 1.00 0.99 Glucose 131 H 134 H Calcium 8.9 8.2 L Cardiac Enzymes 12/13/18 Range/Units 13:30 Troponin I < 0.015 (0-0.045) ng/ml Liver Function 12/13/18 Range/Units 13:30 Total Bilirubin 0.3 (0.2-1) mg/dl AST 11 L (15-37) U/L ALT 23 (12-78) U/L Alkaline Phosphatase 101 (45-117) U/L Albumin 3.2 L (3.4-5.0) gm/dl Urine 12/13/18 Range/Units 13:20 Urine Color Yellow Urine Appearance Clear (Clear) Urine pH 5.0 (4.5-7.5) Ur Specific [place] 1.016 (1.000-1.030) Urine Protein Negative (Negative) Urine Glucose (UA) Negative (Negative) Diagnostic Findings CT abd pelvis wo con CT DOSE: 470.79 mGy.cm HISTORY: Pain. Sepsis. abdominal pain, septic TECHNIQUE: Multiaxial CT images of the abdomen and pelvis were performed without contrast. A dose lowering technique was utilized adhering to the principles of ALARA. COMPARISON STUDY: 11/21/2018 FINDINGS: Interval development of right basilar infiltrate. This shows central consolidative change. Liver spleen and pancreas are grossly unremarkable. Bilateral nonobstructing renal calcifications are present. Prior cholecystectomy. Scattered colonic diverticuli. Central ostomy with a prior sigmoid colonic resection. This is nonobstructive but appears to be unremarkable. Bilateral total hip arthroplasties are present. No evidence for free fluid within the pelvic cul-de-sac. IMPRESSION: 1. Interval development of a consolidated right lower lobe infiltrate. 2. Chronic and postoperative changes of the abdomen and pelvis with no acute process. The above report was generated using voice recognition software. It may contain grammatical, syntax or spelling errors. Electronically signed by: Robinson Turner M.D. 12/13/2018 2:59 PM Dictated: 12/13/18 1456 Transcribed: 12/13/18 1456 (1) Sepsis Sepsis type: sepsis due to unspecified organism Qualified Code(s): A41.9 - Sepsis, unspecified organism
[2018-12-14] MEDS ORDERED: PIPERACILL/TAZOBAC CONSULT ACTIVE PRN (11:28)
[2018-12-14] MEDS ORDERED: PIPERACILLIN/TAZOBACTAM 4.5 GM in DEXTROSE 5% 100 ML IV STA (11:42)
[2018-12-14] MEDS ORDERED: ALUMINUM/MAGNESIUM SUSP 18 ML, LIDOCAINE HCL VISCOUS 2% 6 ML, BARCODE IDENTIFIER 1 EA PO ONE (12:15)
[2018-12-14] MEDS ORDERED: ONDANSETRON INJ 2 MG/ML 2 ML VIAL IV ONE (13:40)
[2018-12-14] MEDS ORDERED: PROMETHAZINE HCL 6.25 MG in SODIUM CHLORIDE 0.9% 50 ML IV STA (16:38)
[2018-12-14] MEDS: PIPERACILLIN/TAZOBACTAM 3.375 GM in DEXTROSE 5% 100 ML IV SCH (17:02)
[2018-12-14] MEDS ORDERED: DAPTOmycin 325 MG in SYRINGE 0 ML IV SCH (18:00)
[2018-12-14] MEDS: QUETIAPINE FUMARATE 200 MG TAB PO SCH (21:00)
[2018-12-14] MEDS: FAMOTIDINE 20 MG in SYRINGE 3 ML IV SCH (22:17)
[2018-12-15] MEDS: PIPERACILLIN/TAZOBACTAM 3.375 GM in DEXTROSE 5% 100 ML IV SCH ×3 (02:52→17:02)
[2018-12-15] MEDS: LEVOTHYROXINE SODIUM 88 MCG TABLET PO SCH (06:28)
[2018-12-15] MEDS: ASCORBIC ACID 500 MG TAB PO SCH (08:25)
[2018-12-15] MEDS: GABAPENTIN 300 MG CAP PO SCH ×3 (08:25→20:02)
[2018-12-15] MEDS: ASPIRIN 81 MG ECTAB PO SCH (08:25)
[2018-12-15] MEDS: CLOPIDOGREL BISULFATE 75 MG TAB PO SCH (08:25)
[2018-12-15] MEDS: CHOLECALCIFEROL 1,000 UNITS TAB PO SCH (08:25)
[2018-12-15] MEDS: DULOXETINE HCL 30 MG CAP PO SCH (08:25)
[2018-12-15] MEDS: ATORVASTATIN 40 MG TAB PO SCH (08:25)
[2018-12-15] MEDS: DULOXETINE HCL 60 MG CAP PO SCH (08:25)
[2018-12-15] MEDS: MIDODRINE HCL 2.5 MG TAB PO SCH ×3 (08:26→17:16)
[2018-12-15] MEDS: VITAMIN B COMPLEX TAB PO SCH (08:26)
[2018-12-15] MEDS: HYDROXYCHLOROQUINE SULFATE 200 MG TAB PO SCH (08:26)
[2018-12-15] MEDS: PANTOprazole 40 MG TAB PO SCH ×2 (08:27→20:02)
[2018-12-15] MEDS: predniSONE 10 MG TABLET PO SCH (08:27)
--- NOTE | 2018-12-15 08:37 | Hospitalist Progress Note ---
Date of Service December 15, 2018 Assessment & Plan (1) Sepsis: previous attending attributed this to sepsis from urinary source, also noted to have RLL pneumonia on CT with concern for gram negative pneumonia history of recent urological procedure and frequent UTIs, initially was on dapto as her last urine culture showed VRE. Patient is on daptomycin and Zosyn at this time Urine culture has been negative patient has improved dramatically with changing of antibiotics likely suggesting this is a hospital associated pneumonia and concern for gram-negative and MRSA still persist Confirmed code status with patient: full code CKD III Continue to follow and-Renally dose meds Abdominal pain has resolved GI cocktail did not offer much help Nephrolithiasis -Noted on imaging, known diagnosis, does not appear to be obstructed. 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 She does have a small chamber of her LV. Currently not in acute CHF echocardiogram was also repeated to evaluate for valvular vegetations which was unremarkable and sed rate was 52. Pheripheral artery disease -continue plavix, asa Hypothyroid-synthroid Chronic anemia Remains stable -Previously investigated and found to be Anemia of chronic disease H/O orthostasis, vasovagal syncope -Midodrine 5mg TID continued Neuropathy gabapentin and cymbalta Major Depressive disorder -Seroquel 200mg hs Chronic hypoxic Resp failure -Patient had required up to 3L previous admissions and at home Patient with PT OT evaluation to be considered for rehab if required Subjective Patient feels much better after changing of antibiotics per infectious diseases looks to be more consistent with a healthcare associated pneumonia possibly gram-negative initial cultures of blood and urine are unremarkable patient feels much better Review of Systems ROS: well nourished well developed. No double vision blurry vision No problems with speech or swallowing No palpitations, chest pain or pressure No Wheezing but occasional nonproductive cough No abdominal pain nausea vomiting diarrhea changes in appetite or weight No burning urine urine frequency or changes in color No focal joint pain or muscle pain No skin rashes or oral lesions No unusual bruising or bleeding No focused back pain or numbness or loss of strength No changes in memory or confusion Physical Exam Vital Signs (Past 24 Hours): Last Vital Signs Temp 37.0 C 12/15/18 03:25 Pulse 90 12/15/18 03:25 Resp 18 12/15/18 03:25 BP 95/59 L 12/15/18 03:25 Pulse Ox 97 12/15/18 03:25 The patient appeared well nourished and normally developed. Vital signs as documented. Head exam is unremarkable. normocephalic, atraumatic Neck is without jugular venous distension, thyromegaly, or lymphademopathy Lungs are coarse at the bases bilaterally Cardiac exam reveals Rhythm is regular soft systolic murmur. First and second heart sounds normal. Abdominal exam reveals normal bowel sounds, no masses, no organomegaly Extremities are nonedematous and both pedal pulses are present Neurologic exam is A&Ox3, no focal deficits, strength is equal bilateral Psychologically seems neither anxious or depressed Skin is warm Dry without bruises or lesions (1) Sepsis Sepsis type: sepsis due to unspecified organism Qualified Code(s): A41.9 - Sepsis, unspecified organism
[2018-12-15] MEDS: FAMOTIDINE 20 MG in SYRINGE 3 ML IV SCH ×2 (09:49→20:02)
[2018-12-15] MEDS ORDERED: PRAZOSIN HCL 1 MG CAP PO PRN (20:00)
[2018-12-15] MEDS: QUETIAPINE FUMARATE 200 MG TAB PO SCH (20:02)
[2018-12-16] MEDS: PIPERACILLIN/TAZOBACTAM 3.375 GM in DEXTROSE 5% 100 ML IV SCH ×3 (01:20→20:23)
[2018-12-16] MEDS: OXYCODONE HCL IR 5 MG TAB (IMMEDIATE RELEASE) PO PRN ×2 (01:20→20:15)
[2018-12-16] MEDS: LEVOTHYROXINE SODIUM 88 MCG TABLET PO SCH (05:58)
[2018-12-16 06:36] LABS: Creatinine Clr Calc Pharmacy 31.9 ml/min; Est GFR (African American) 47.9; Est GFR (Non-African American) 41.3
[2018-12-16] MEDS: ASCORBIC ACID 500 MG TAB PO SCH (08:16)
[2018-12-16] MEDS: HYDROXYCHLOROQUINE SULFATE 200 MG TAB PO SCH (08:17)
[2018-12-16] MEDS: DULOXETINE HCL 60 MG CAP PO SCH (08:18)
[2018-12-16] MEDS: ASPIRIN 81 MG ECTAB PO SCH (08:18)
[2018-12-16] MEDS: MIDODRINE HCL 2.5 MG TAB PO SCH ×3 (08:18→16:20)
[2018-12-16] MEDS: PANTOprazole 40 MG TAB PO SCH ×2 (08:19→21:46)
[2018-12-16] MEDS: VITAMIN B COMPLEX TAB PO SCH (08:19)
[2018-12-16] MEDS: ATORVASTATIN 40 MG TAB PO SCH (08:19)
[2018-12-16] MEDS: predniSONE 10 MG TABLET PO SCH (08:19)
[2018-12-16] MEDS: GABAPENTIN 300 MG CAP PO SCH ×3 (08:19→21:45)
[2018-12-16] MEDS: DULOXETINE HCL 30 MG CAP PO SCH (08:19)
[2018-12-16] MEDS: CHOLECALCIFEROL 1,000 UNITS TAB PO SCH (08:19)
[2018-12-16] MEDS: CLOPIDOGREL BISULFATE 75 MG TAB PO SCH (08:19)
[2018-12-16] MEDS: FAMOTIDINE 20 MG in SYRINGE 3 ML IV SCH ×2 (08:26→22:13)
[2018-12-16] MEDS: ACETAMINOPHEN 1,000 MG/100 ML VIAL IV PRN (16:18)
--- NOTE | 2018-12-16 16:39 | Hospitalist Progress Note ---
Date of Service December 16, 2018 Assessment & Plan (1) Sepsis: previous attending attributed this to sepsis from urinary source, also noted to have RLL pneumonia on CT with concern for gram negative pneumonia history of recent urological procedure and frequent UTIs, initially was on dapto as her last urine culture showed VRE. Patient is on daptomycin and Zosyn at this time Urine culture has been negative patient has improved dramatically with changing of antibiotics likely suggesting this is a hospital associated pneumonia and concern for gram-negative and MRSA awaiting infectious disease determination of outpatient antibiotic choices Confirmed code status with patient: full code CKD III Stable-Renally dose meds Abdominal pain continues to be resolved Nephrolithiasis -Noted on imaging, known diagnosis, does not appear to be obstructed. 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 She does have a small chamber of her LV. Currently not in acute CHF echocardiogram was also repeated to evaluate for valvular vegetations which was unremarkable and sed rate was 52. Pheripheral artery disease -continue plavix, asa Hypothyroid-synthroid Chronic anemia Remains stable -Previously investigated and found to be Anemia of chronic disease H/O orthostasis, vasovagal syncope -Midodrine 5mg TID continued Neuropathy gabapentin and cymbalta Major Depressive disorder -Seroquel 200mg hs has no other issues with this high dose Chronic hypoxic Resp failure -Patient had required up to 3L previous admissions and at home Patient with PT OT evaluation to be considered for rehab if required Subjective Patient seen in the company of her daughter she is feeling much better she is slightly concerned about going home too early. Infectious disease is to decide on antibiotic treatment for home we do not have any confirmed sources of infection however we do have a confirmed pneumonia on imaging. The patient did respond to an antibiotic change recently she is much less coughing she is mildly weak not been formally pursued through therapy Review of Systems ROS: well nourished well developed. No double vision blurry vision No problems with speech or swallowing No palpitations, chest pain or pressure No Wheezing or breathing issues No abdominal pain nausea vomiting diarrhea changes in appetite or weight No burning urine urine patient has frequency and incontinence No focal joint pain or muscle pain No skin rashes or oral lesions No unusual bruising or bleeding No focused back pain or numbness or loss of strength No changes in memory or confusion Physical Exam Vital Signs (Past 24 Hours): Last Vital Signs Temp 36.9 C 12/16/18 15:03 Pulse 96 H 12/16/18 15:03 Resp 18 12/16/18 15:03 BP 132/73 12/16/18 15:03 Pulse Ox 92 12/16/18 15:03 The patient appeared well nourished and normally developed. Vital signs as documented. Head exam is unremarkable. normocephalic, atraumatic Neck is without jugular venous distension, thyromegaly, or lymphademopathy Lungs are clear to auscultation and percussion. Cardiac exam reveals irregularly irregular rate controlled systolic murmur. First and second heart sounds normal. Abdominal exam reveals normal bowel sounds, no masses, no organomegaly Extremities are nonedematous and both pedal pulses are present Neurologic exam is A&Ox3, no focal deficits, strength is equal bilateral but slightly diminished Psychologically seems anxious Skin is warm Dry without bruises or lesions (1) Sepsis Sepsis type: sepsis due to unspecified organism Qualified Code(s): A41.9 - Sepsis, unspecified organism
[2018-12-16] MEDS: ONDANSETRON INJ 2 MG/ML 2 ML VIAL IV PRN (20:15)
[2018-12-16] MEDS: QUETIAPINE FUMARATE 200 MG TAB PO SCH (21:46)
[2018-12-17] MEDS: PIPERACILLIN/TAZOBACTAM 3.375 GM in DEXTROSE 5% 100 ML IV SCH ×3 (02:35→17:28)
[2018-12-17] MEDS: LEVOTHYROXINE SODIUM 88 MCG TABLET PO SCH (05:49)
[2018-12-17] MEDS: ONDANSETRON INJ 2 MG/ML 2 ML VIAL IV PRN (05:50)
[2018-12-17 07:57] LABS: Creatinine Clr Calc Pharmacy 36.2 ml/min; Est GFR (African American) 55.7; Est GFR (Non-African American) 48.1
[2018-12-17] MEDS: DULOXETINE HCL 60 MG CAP PO SCH (08:13)
[2018-12-17] MEDS: GABAPENTIN 300 MG CAP PO SCH ×3 (08:13→20:45)
[2018-12-17] MEDS: HYDROXYCHLOROQUINE SULFATE 200 MG TAB PO SCH (08:13)
[2018-12-17] MEDS: PANTOprazole 40 MG TAB PO SCH ×2 (08:13→20:45)
[2018-12-17] MEDS: CHOLECALCIFEROL 1,000 UNITS TAB PO SCH (08:13)
[2018-12-17] MEDS: VITAMIN B COMPLEX TAB PO SCH (08:13)
[2018-12-17] MEDS: CLOPIDOGREL BISULFATE 75 MG TAB PO SCH (08:13)
[2018-12-17] MEDS: DULOXETINE HCL 30 MG CAP PO SCH (08:13)
[2018-12-17] MEDS: ATORVASTATIN 40 MG TAB PO SCH (08:13)
[2018-12-17] MEDS: predniSONE 10 MG TABLET PO SCH (08:15)
[2018-12-17] MEDS: MIDODRINE HCL 2.5 MG TAB PO SCH ×3 (08:15→17:29)
[2018-12-17] MEDS: ASCORBIC ACID 500 MG TAB PO SCH (08:15)
[2018-12-17] MEDS: ASPIRIN 81 MG ECTAB PO SCH (08:15)
[2018-12-17] MEDS: FAMOTIDINE 20 MG in SYRINGE 3 ML IV SCH ×2 (08:21→20:55)
--- NOTE | 2018-12-17 08:26 | Discharge Summary ---
Date of Service December 18, 2018 Admission HPI Per Admitting Provider 87 yo female who had a recent urological procedure yesterday comes in with lower abdominal pain, fever. Prior to this she was her normal self and was completely asymptomatic prior to this morning. She does followup with Urology as an outpatient and ID for her recurrent UTIs. Patient is currently on a 2 week course of amoxicillin. Patient this AM awoke with RLQ dull abdominal pain, moderate to severe intensity, non radiating, associatd with nausea and poor apetite. She was brought to ER which showed no signs of acute infection. Patient did not have signs of diverticulitis. She already had a hysterectomy and cholecystectomy in the past. Patient was placed on vanco and iVF and admissions were called. Reviewing her past records, patient had VRE in last hospital stay. Principal Diagnosis Pneumonia Discharge Exam Constitutional well developed and average body habitus Eyes no conjunctival abnormality and no scleral abnormality Neck normal visual inspection and trachea midline Respiratory normal respiratory effort; no respiratory distress Auscultation: lungs clear to auscultation bilaterally Cardiovascular RRR, no murmur, no edema Gastrointestinal (Abdomen) normal bowel sounds, soft, nontender, no hepatosplenomegaly Musculoskeletal no cyanosis or clubbing, extremities motor strength 5/5 Discharge Data Allergies Allergy/AdvReac Type Severity Reaction Status Date / Time nitrofurantoin Allergy Severe HIVES Verified 12/13/18 15:35 scallops Allergy Severe THROAT Verified 12/13/18 15:35 SWELLS Cipro Allergy Intermediate HIVES Verified 06/03/18 16:34 ciprofloxacin Allergy Intermediate HIVES Verified 12/13/18 15:35 latex Allergy Intermediate RASH Verified 12/13/18 15:35 Quinolones Allergy Intermediate HIVES Verified 12/13/18 15:35 fluticasone Allergy Unknown ADVAIR-UNKN Verified 12/13/18 15:35 OWN salmeterol Allergy Unknown ADVAIR Verified 12/13/18 15:35 celecoxib AdvReac Intermediate barretts Verified 12/13/18 15:35 esophagus lactose AdvReac Intermediate GI UPSET Verified 12/13/18 15:35 morphine AdvReac Intermediate NAUSEA AND Verified 12/13/18 15:35 VOMITING Consultations 12/13/18 15:09 ED Decision to Admit Stat 12/13/18 18:00 Consult Infectious Diseases Routine Ordered Studies 12/13/18 14:04 CT abd pelvis wo con Stat Hospital Course (1) Sepsis: previous attending attributed this to sepsis from urinary source, also noted to have RLL pneumonia on CT with concern for gram negative pneumonia history of recent urological procedure and frequent UTIs, initially was on dapto as her last urine culture showed VRE. Patient patient will be discharged on Augmentin for infectious disease recommendations Urine culture has been negative Confirmed code status with patient: full code CKD III Stable-Renally dose meds Abdominal pain continues to be resolved Nephrolithiasis -Noted on imaging, known diagnosis, does not appear to be obstructed. 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 She does have a small chamber of her LV. Currently not in acute CHF echocardiogram was also repeated to evaluate for valvular vegetations which was unremarkable and sed rate was 52. Pheripheral artery disease -continue plavix, asa Hypothyroid-synthroid Chronic anemia Remains stable -Previously investigated and found to be Anemia of chronic disease H/O orthostasis, vasovagal syncope -Midodrine 5mg TID continued Neuropathy gabapentin and cymbalta Major Depressive disorder -Seroquel 200mg hs has no other issues with this high dose Chronic hypoxic Resp failure -Patient had required up to 3L previous admissions and at home She has some positional vertigo which she also has by history. The patient will see her outpatient black off worker to have a repeat treatment if the symptoms are persistent while at home Total Time Total Time Spent Total Time Spent (In Minutes): greater than 30 minutes were required to prepare discharge Discharge Plan Discharge Items Patient Disposition: Home - Home Health Services Reason For Visit: SEPSIS Discharge Diagnosis: pneumonia Discharge Goals: Decrease discomfort and Improve disease control Activity: Resume your previous activity Non-emergency contact: Primary Care Provider Call non-emergency contact if: you have any medication questions Follow-up/Referrals: Nidhi Gardner MD [Primary Care Provider] - Diet: Regular Addtl Provider Instructions: please follow up with family doctor this week Prescriptions: New amoxicillin-pot clavulanate [Augmentin] 875-125 mg tablet 1 tab PO BID Qty: 14 RF: 0 Continued fexofenadine [Cora Allergy] 60 mg tablet 60 mg PO DAILY PRN (Reason: Congestion) RF: 0 aspirin 81 mg tablet,delayed release (DR/EC) 81 mg PO QAM RF: 0 cholecalciferol (vitamin D3) 2,000 unit capsule 2,000 units PO QAM RF: 0 levothyroxine [Synthroid] 88 mcg tablet 88 mcg PO QAM RF: 0 ascorbic acid (vitamin C) 500 mg tablet 500 mg PO QAM RF: 0 hydroxychloroquine 200 mg tablet 300 mg PO QAM RF: 0 ondansetron HCl [Zofran] 8 mg Tablet 8 mg PO Q6 PRN (Reason: Nausea) RF: 0 clopidogrel [Plavix] 75 mg Tablet 75 mg PO QAM RF: 0 lidocaine 5 % Gel 1 applic Topical QID PRN (Reason: Back Pain) RF: 0 diclofenac sodium [Voltaren] 1 % gel 4 gm TOP QID MDD 16G PRN (Reason: Pain) RF: 0 duloxetine [Cymbalta] 60 mg Capsule,Delayed Release(Dr/Ec) 60 mg PO QAM RF: 0 fluticasone [Flonase Allergy Relief] 50 mcg/actuation [place],Suspension 2 spray INTRANASAL DAILY PRN (Reason: Congestion) RF: 0 cyanocobalamin (vitamin B-12) [Vitamin B-12] 1,000 mcg Tablet 1,000 mcg PO QAM RF: 0 oxycodone 5 mg Tablet 10 mg PO BID RF: 0 Ocuvite with Lutein 1,000 unit-200 mg-60 unit-2 mg Tablet 1 tab PO QAM RF: 0 gabapentin 300 mg capsule 300 mg PO TID RF: 0 vitamin B complex Tablet 1 tab PO QAM RF: 0 polyethylene glycol 3350 [Miralax] 17 gram powder in packet 17 gm PO QAM PRN (Reason: Constipation) RF: 0 prazosin 1 mg capsule 1 mg PO HS PRN (Reason: Unknown) RF: 0 Dexilant 60 mg Capsule,Biphase Delayed Releas 60 mg PO BID RF: 0 midodrine 5 mg Tablet 5 mg PO TID@0800,1200,1700 RF: 0 prednisone 10 mg tablet 10 mg PO QAM RF: 0 Azo Urinary Pain Relief 97.5 mg Tablet 97.5 mg PO TID PRN (Reason: .URINARY PAIN) RF: 0 atorvastatin 40 mg tablet 40 mg PO QAM RF: 0 quetiapine 200 mg tablet 200 mg PO HS RF: 0 bifidobacteri bifid.and longum 460 mg (9-1 bill.cell) capsule 1 cap PO DAILY RF: 0 duloxetine 30 mg Capsule,Delayed Release(Dr/Ec) 30 mg PO QAM Qty: 0 RF: 0 Discontinued amoxicillin 500 mg capsule 500 mg PO DAILY RF: 0 doxycycline hyclate 100 mg capsule 100 mg PO DAILY RF: 0 Stand-Alone Forms: [facility] Discharge Orders: Discharge Order (Routine); Ordered 12/18/18 Ordered By: Jose Wei Admission Data Admit Date/Time: 12/13/18 18:04 Attending Provider: Jose Wei Admit Provider: Warren Iraheta Primary Care Provider: Nidhi Gardner Other Providers: Warren Iraheta ; Zach Hobbs ; Jose Wilson Service: Medical Other Interventions: Discharge Summary Assessment (RN) Last Done: 12/18/18 11:59
[2018-12-17] MEDS: OXYBUTYNIN CHLORIDE 5 MG TAB PO SCH ×2 (12:05→20:45)
--- NOTE | 2018-12-17 15:47 | Hospitalist Progress Note ---
Date of Service December 17, 2018 Assessment & Plan (1) Sepsis: previous attending attributed this to sepsis from urinary source, also noted to have RLL pneumonia on CT with concern for gram negative pneumonia history of recent urological procedure and frequent UTIs, initially was on dapto as her last urine culture showed VRE. Patient is on daptomycin and Zosyn at this time Urine culture has been negative patient has improved dramatically with changing of antibiotics likely suggesting this is a hospital associated pneumonia and concern for gram-negative and MRSA awaiting infectious disease determination of outpatient antibiotic choices Confirmed code status with patient: full code CKD III Stable-Renally dose meds Abdominal pain continues to be resolved Nephrolithiasis -Noted on imaging, known diagnosis, does not appear to be obstructed. No validated urinary tract infection was confirmed patient states she occasionally some bladder spasms will remove benitez and start ditropan, pt and daughter cannot remember her home med SLE/RA -patient remains on plaquenil and daily prednisone, no signs of steroid withdrawal -Oxy BID will be stopped due to nausea but we will continue tylenol prn for pain Chronic Diastolic heart failure remains euvolemic at this time -Last TTE 11/29 with EF 55-60%, grade I Diastolic dysfx. She does have a small chamber of her LV. Currently not in acute CHF, echocardiogram was also repeated to evaluate for valvular vegetations which was unremarkable and sed rate was 52. Pheripheral artery disease -continue plavix, asa Hypothyroid-synthroid Chronic anemia Remains stable -Previously investigated and found to be Anemia of chronic disease H/O orthostasis, vasovagal syncope -Midodrine 5mg TID continued Neuropathy gabapentin and cymbalta Major Depressive disorder -Seroquel 200mg hs has no other issues with this high dose Chronic hypoxic Resp failure -Patient had required up to 3L previous admissions and at home Patient with PT OT evaluation to be considered for rehab if required Subjective Patient states she started feeling well today 7 some bladder spasticity. This could be from her Benitez catheter although she does take an antispasmodic medication at home. I was concerned giving it to her because of the multiple medications she takes for her mental status. However given her complaints and problems this morning we will pursue this as well as the ultrasound of her abdominal wall due to persistent abdominal wall complaints. I discussed these findings with her daughter who is in agreement. Her daughter also feels that sometimes when she stays in the hospital too long she starts to have multiple somatic complaints and may consider having her be discharged the next day or 2 Review of Systems ROS: well nourished well developed. Has different somatic complaints today than in the past No double vision blurry vision No problems with speech or swallowing No palpitations, chest pain or pressure No Wheezing or breathing issues less cough Right-sided abdominal pain which is crampy and focal, no nausea vomiting or diarrhea No burning urine urine frequency or changes in color planing of bladder spasms No focal joint pain or muscle pain No skin rashes or oral lesions No unusual bruising or bleeding No focused back pain or numbness or loss of strength No changes in memory or confusion Physical Exam Vital Signs (Past 24 Hours): Last Vital Signs Temp 37.0 C 12/17/18 15:32 Pulse 101 H 12/17/18 15:32 Resp 16 12/17/18 15:32 BP 169/74 H 12/17/18 15:32 Pulse Ox 91 12/17/18 15:32 The patient appeared well nourished and normally developed she did not appear ill although she had many somatic complaints today. Vital signs as documented. Head exam is unremarkable. normocephalic, atraumatic Neck is without jugular venous distension, thyromegaly, or lymphademopathy Lungs are clear to auscultation and percussion. Cardiac exam reveals Rhythm is regular. First and second heart sounds normal. Abdominal exam reveals tender right quadrant is possibly consistent with a rectus sheath hematoma, normal bowel sounds, no masses, no organomegaly Extremities are nonedematous and both pedal pulses are present Neurologic exam is A&Ox3, no focal deficits, strength is equal bilateral Psychologically seems neither anxious or depressed Skin is warm Dry without bruises or lesions (1) Sepsis Sepsis type: sepsis due to unspecified organism Qualified Code(s): A41.9 - Sepsis, unspecified organism
--- NOTE | 2018-12-17 19:04 | Ultrasound Report ---
US abdomen limited CLINICAL HISTORY: eval for rectus hematoma dina right lower. Right lower abdominal pain. COMPARISON STUDY: Abdomen and pelvis CT 12/13/2018. FINDINGS: Real-time sonographic images the right lower quadrant was performed. No masses or fluid col lections within the right lower quadrant abdominal wall. No evidence for a rectal sheath hematoma. IMPRESSION: No sonographic abnormality within the right lower quadrant. Electronically signed by: Osbaldo Washington M.D. 12/17/2018 7:03 PM
[2018-12-17] MEDS: QUETIAPINE FUMARATE 200 MG TAB PO SCH (20:46)
[2018-12-17] MEDS: OXYCODONE HCL IR 5 MG TAB (IMMEDIATE RELEASE) PO PRN (20:52)
[2018-12-18] MEDS: PIPERACILLIN/TAZOBACTAM 3.375 GM in DEXTROSE 5% 100 ML IV SCH ×2 (03:22→09:41)
[2018-12-18 05:58] LABS: Creatinine Clr Calc Pharmacy 35.9 ml/min; Est GFR (African American) 55.1; Est GFR (Non-African American) 47.5
[2018-12-18] MEDS: LEVOTHYROXINE SODIUM 88 MCG TABLET PO SCH (06:02)
[2018-12-18] MEDS: CHOLECALCIFEROL 1,000 UNITS TAB PO SCH (08:58)
[2018-12-18] MEDS: CLOPIDOGREL BISULFATE 75 MG TAB PO SCH (08:58)
[2018-12-18] MEDS: GABAPENTIN 300 MG CAP PO SCH (08:58)
[2018-12-18] MEDS: DULOXETINE HCL 30 MG CAP PO SCH (08:58)
[2018-12-18] MEDS: DULOXETINE HCL 60 MG CAP PO SCH (08:58)
[2018-12-18] MEDS: VITAMIN B COMPLEX TAB PO SCH (08:59)
[2018-12-18] MEDS: ASPIRIN 81 MG ECTAB PO SCH (08:59)
[2018-12-18] MEDS: ASCORBIC ACID 500 MG TAB PO SCH (08:59)
[2018-12-18] MEDS: ATORVASTATIN 40 MG TAB PO SCH (08:59)
[2018-12-18] MEDS: PANTOprazole 40 MG TAB PO SCH (08:59)
[2018-12-18] MEDS: OXYBUTYNIN CHLORIDE 5 MG TAB PO SCH (08:59)
[2018-12-18] MEDS: HYDROXYCHLOROQUINE SULFATE 200 MG TAB PO SCH (08:59)
[2018-12-18] MEDS: predniSONE 10 MG TABLET PO SCH (08:59)
[2018-12-18] MEDS: MIDODRINE HCL 2.5 MG TAB PO SCH ×2 (08:59→12:32)
[2018-12-18] MEDS ORDERED: ACETAMINOPHEN 500 MG TAB PO PRN (09:13)
[2018-12-18] MEDS: FAMOTIDINE 20 MG in SYRINGE 3 ML IV SCH (09:41)
[2018-12-18] MEDS ORDERED: FAMOTIDINE 20 MG TAB PO SCH (21:00)
== END 2018-12-18 13:05 | disposition home health service (06) | DRG 871 ==
LOC: ED 13:10 → 2S 18:04 → SUATTDRO 18:04 → 2S 19:37 → 4E 12-16 18:37

== ENCOUNTER 2019-02-03 10:05 | Inpatient (IN) ==
[2019-02-03] MEDS ORDERED: PIPERACILLIN/TAZOBACTAM 4.5 GM/120 ML BAG IV STA (10:24)
[2019-02-03] MEDS ORDERED: SODIUM CHLORIDE 0.9% 1000ML 1,000 ML IV SCH (10:30)
[2019-02-03 11:03] LABS: Appearance Urine Clear (Clear); Bacteria Urine Automated 4+ (Negative); Bilirubin Urine Negative (Negative); Blood Urine 2+ (Negative); Color Urine Dark Yellow; Glucose Urine UA Negative (Negative); Ketones Urine Negative (Negative); Leukocyte Esterase Urine Trace (Negative); Nitrite Urine Positive (Negative); Protein Urine Negative (Negative); Specific Gravity Urine 1.015 (1.000-1.030); Urobilinogen Urine Negative (Negative)
--- NOTE | 2019-02-03 11:03 | XRay Report ---
XR chest 1V portable CLINICAL HISTORY: 88 years-old Female presenting with ams. TECHNIQUE: Portable upright AP view of the chest was obtained. COMPARISON: 01/03/2019. FINDINGS: Atherosclerosis of the aortic arch. Cardiac silhouette borderline enlarged. Bandlike opacity in the l eft lower lung persists. Heterogeneous lung markings. Increased density in the right perihilar region slightly altered in appearance from prior. This may represent overlapping rib shadow and perihilar v asculature. No other new focal opacity. No large effusion or pneumothorax. Degenerative changes of th e thoracic spine. Upper abdomen normal. IMPRESSION: 1. Apparent density in the right perihilar region new from prior though this may represent a rib sha marito and/or overlapping vasculature. PA and lateral view may better clarify this finding. 2. Persistent left basilar atelectasis or scarring. 3. No other findings to suggest acute cardiopulmonary disease. Electronically signed by: Teddy Lopez M.D. 02/03/2019 11:01 AM
[2019-02-03 11:30] LABS: Basophils # (auto) 0.02 K/uL (0-0.2); Basophils % (auto) 0.1 %; Eosinophils # (auto) 0.31 K/uL (0-0.5); Eosinophils % (auto) 1.3 %; Hematocrit (blood only) 32.8 % (37-47); Hemoglobin 9.9 g/dL (12.0-16.0); Immature Granulocytes # (auto) 0.13 K/uL (0.00-0.02); Immature Granulocytes % (auto) 0.5 %; Lymphocytes # (auto) 2.17 K/uL (1.2-3.4); Lymphocytes % (auto) 9.1 %; Mean Corpuscular Hgb Conc 30.2 g/dL (32-36); Mean Corpuscular Volume 92.9 fL (80-100); Mean Platelet Volume 9.8 fL (7.4-10.4); Monocytes # (auto) 1.48 K/uL (0.11-0.59); Monocytes % (auto) 6.2 %; Neutrophils # (auto) 19.86 K/uL (1.4-6.5); Neutrophils % (auto) 82.8 %; Platelet Count 231 K/uL (130-400); RDW Standard Deviation 57.5 fL (36.4-46.3); Red Blood Count 3.53 M/uL (4.2-5.4); White Blood Count 23.97 K/uL (4.8-10.8)
[2019-02-03 11:42] LABS: Prothrombin Time 10.7 Seconds (9.0-12.0)
[2019-02-03 11:49] LABS: Albumin Level 2.9 gm/dl (3.4-5.0); BUN Creatinine Ratio 13.2 (10-20); Calcium 8.8 mg/dl (8.5-10.1); Creatinine Clr Calc Pharmacy 34.1 ml/min; Est GFR (African American) 51.5; Est GFR (Non-African American) 44.4; Potassium 3.4 mmol/L (3.5-5.1)
[2019-02-03 11:54] LABS: Albumin Globulin Ratio 0.9 (0.9-2); Bilirubin,Total 0.3 mg/dl (0.2-1); Globulin 3.2 gm/dl (2.5-4.0); Total Protein 6.1 gm/dl (6.4-8.2); Troponin I 0.02 ng/ml (0-0.045)
--- NOTE | 2019-02-03 12:17 | CT Scan Report ---
CT head/brain wo con CLINICAL HISTORY: 88 years-old Female presenting with ams. TECHNIQUE: Multidetector CT imaging of the head was performed without the use of intravenous contrast . IV contrast: None. One or more dose lowering techniques were used consistent with the principles of ALARA (as low as reasonably achievable), including automatic exposure control, mA or kV adjustment t o individual patient size, and/or use of iterative reconstruction. COMPARISON: CT head from 11/23/2018 and MR brain from 11/23/2018. CT DOSE (mGy.cm): The estimated cumulative dose is 537.48 mGy.cm. FINDINGS: Sewer Line Photo Inspector topogram: Unremarkable. Proportional ventricular and sulcal prominence, likely age-related parenchymal volume loss. No hemorr nanette. Periventricular and subcortical white matter hypoattenuation, nonspecific but likely indicative of chronic small vessel ischemic change. No acute territorial infarct. No mass effect or midline ashley ft. No extra-axial fluid collection. Paranasal sinuses and mastoid air cells clear. Calvarium intact. Absent seminole lenses. IMPRESSION: 1. Chronic small vessel ischemic change. No acute intracranial abnormality. Electronically signed by: Teddy Lopez M.D. 02/03/2019 12:16 PM
[2019-02-03] MEDS ORDERED: SODIUM CHLORIDE 0.9% 1000ML 1,000 ML IV ONE (12:28)
--- NOTE | 2019-02-03 12:35 | Emergency Department Note ---
Entered by Goldie Garcia acting as a scribe for History of Present Illness General Chief complaint: Fever Source: patient Mode of arrival: ambulatory Limitations: no limitations and altered mental status History of Present Illness Onset (ago): day(s) (today) Location: head (AMS) Pain Consistency: + other (episode) Quality: + other (AMS) Associated symptoms: + confusion, + fever/chills (The patient has fever. ) and + other (The patient has low pulse oxygen.) The patient is an 88 year old female with a history of UTI and cancer who presents to the ED via EMS with complaints of an episode of altered mental status that onset today. Per EMS, the patient is normally awake and alert. They state that this morning the health care nurse checked on her and the patient was confused and not alert. Per EMS, at this time, her temperature was 39.5 and she had low pulse oxygen, despite being on her regular 2 liters of oxygen. They state that she goes to the cancer center for some sort of infusion, but were unsure what kind. Per EMS, the patient has a colostomy bag. Home Medications Home Medications Medication Instructions Recorded Confirmed Type ascorbic acid (vitamin C) 500 mg 500 mg PO QAM 07/07/18 02/03/19 History tablet aspirin 81 mg tablet,delayed 81 mg PO QAM 07/07/18 02/03/19 History release cholecalciferol (vitamin D3) 2,000 2,000 units PO QAM 07/07/18 02/03/19 History unit capsule fexofenadine 60 mg tablet 60 mg PO QAM tab 07/07/18 02/03/19 History hydroxychloroquine 200 mg tablet 300 mg PO QAM tab 07/07/18 02/03/19 History levothyroxine 88 mcg tablet 88 mcg PO QAM 07/07/18 02/03/19 History nitroglycerin 0.4 mg sublingual 0.4 mg SL Q5M PRN #1 tab 07/07/18 02/03/19 Rx tablet clopidogrel [Plavix] 75 mg PO QAM 08/10/18 02/03/19 History diclofenac sodium [Voltaren] 4 gm TOP QID PRN MDD 16G 08/10/18 02/03/19 History duloxetine [Cymbalta] 60 mg PO QAM 08/10/18 02/03/19 History fluticasone propionate [Flonase 2 spray INTRANASAL DAILY PRN 08/10/18 02/03/19 History Allergy Relief] lidocaine 1 applic TOPICAL QID PRN 08/10/18 02/03/19 History ondansetron HCl [Zofran] 8 mg PO Q6 PRN 08/10/18 02/03/19 History Ocuvite with Lutein 1 tab PO QAM 08/31/18 02/03/19 History cyanocobalamin (vitamin B-12) 1,000 mcg PO QAM 08/31/18 02/03/19 History [Vitamin B-12] oxycodone 10 mg PO BID 08/31/18 02/03/19 History gabapentin 300 mg PO TID 09/26/18 02/03/19 History polyethylene glycol 3350 [Miralax] 17 gm PO QAM PRN 09/26/18 02/03/19 History vitamin B complex 1 tab PO QAM 09/26/18 02/03/19 History Azo Urinary Pain Relief 97.5 mg PO TID PRN 11/07/18 02/03/19 History Dexilant 60 mg PO BID 11/07/18 02/03/19 History midodrine 5 mg PO TID@0800,1200,1700 11/07/18 02/03/19 History prazosin 1 mg PO HS 11/07/18 02/03/19 History prednisone 10 mg PO QAM 11/07/18 02/03/19 History duloxetine 30 mg PO QAM #0 cap 11/25/18 02/03/19 Rx atorvastatin 40 mg PO QAM 12/13/18 02/03/19 History quetiapine 200 mg PO HS 12/13/18 02/03/19 History acetaminophen [Tylenol Extra 1,000 mg PO PM 01/03/19 02/03/19 History Strength] doxycycline hyclate 100 mg PO PM 01/03/19 02/03/19 History Allergies Allergy/AdvReac Type Severity Reaction Status Date / Time nitrofurantoin Allergy Severe HIVES Verified 02/03/19 10:46 scallops Allergy Severe THROAT Verified 02/03/19 10:46 SWELLS Cipro Allergy Intermediate HIVES Verified 06/03/18 16:34 ciprofloxacin Allergy Intermediate HIVES Verified 02/03/19 10:46 latex Allergy Intermediate RASH Verified 02/03/19 10:46 Quinolones Allergy Intermediate HIVES Verified 02/03/19 10:46 fluticasone Allergy Unknown ADVAIR-UNKN Verified 02/03/19 10:46 OWN salmeterol Allergy Unknown ADVAIR Verified 02/03/19 10:46 celecoxib AdvReac Intermediate barretts Verified 02/03/19 10:46 esophagus lactose AdvReac Intermediate GI UPSET Verified 02/03/19 10:46 morphine AdvReac Intermediate NAUSEA AND Verified 02/03/19 10:46 VOMITING Past Med/Surg History Medical History Rheumatoid arthritis Chronic back pain (Chronic) Depression (Chronic 03/10/13) Major depressive disorder, recurrent episode with anxious distress Acute gastritis (03/23/12) Cholecystectomy (03/10/13) Colostomy present Diabetes mellitus Diverticula of colon Falls frequently History of colitis Infected abrasion of great toe of left foot Infected abrasion of great toe of right foot Lactose intolerance Low blood pressure Pituitary adenoma (03/10/13) Slurred speech TIA (transient ischemic attack) Vasovagal syncope (03/10/13) Surgical History H/O: hysterectomy History of hip replacement History of surgical removal of pituitary gland History of surgical removal of pituitary gland Hx of cholecystectomy Family History Other Cancer Diabetes Gallbladder disease Heart disease Hypertension Seizure Social History Preferred Language: Italian Communication Ability: Effective Beliefs That Will Affect Care: Scientology Scientology Beliefs: Religious marital status: / Current Living Situation: Alone Current Living Situation Comment: With HHN Feels Safe at Home: Yes Smoking Status: Never smoker Second Hand Exposure: No Hx Alcohol Use: No Hx Substance Use: No Review of Systems See HPI for pertinent positives & negatives. Unobtainable due to cognitive status Physical Exam Vital Signs Vital Signs - 24 hr 02/03/19 10:19 02/03/19 10:24 02/03/19 10:40 Temperature 37.2 C 39.3 C H Temperature Source Oral Rectal Sepsis Recent Fever Within 48 Hours Yes Sepsis Action Taken by Nursing No Action Required Pulse Rate 128 H Pulse Rate from SpO2 Sensor Respiratory Rate 20 Respiratory Depth Normal Blood Pressure 165/66 H Blood Pressure Mean 99 Pulse Oximetry 90 86 L Oxygen Delivery Method Nasal Cannula Room Air Oxygen Flow Rate 02/03/19 10:45 02/03/19 11:00 02/03/19 11:15 Temperature Temperature Source Sepsis Recent Fever Within 48 Hours Sepsis Action Taken by Nursing Pulse Rate 130 H 127 H 128 H Pulse Rate from SpO2 Sensor 130 H 126 H 128 H Respiratory Rate 26 H 20 18 Respiratory Depth Blood Pressure 140/56 L 139/41 L Blood Pressure Mean 84 73 Pulse Oximetry 94 94 94 Oxygen Delivery Method Nasal Cannula Nasal Cannula Nasal Cannula Oxygen Flow Rate 4 4 4 02/03/19 11:31 02/03/19 11:45 02/03/19 12:00 Temperature Temperature Source Sepsis Recent Fever Within 48 Hours Sepsis Action Taken by Nursing Pulse Rate 128 H 124 H 126 H Pulse Rate from SpO2 Sensor 129 H 124 H 126 H Respiratory Rate 19 17 14 Respiratory Depth Blood Pressure 144/48 H 127/45 L 128/45 L Blood Pressure Mean 80 72 72 Pulse Oximetry 94 94 94 Oxygen Delivery Method Nasal Cannula Nasal Cannula Nasal Cannula Oxygen Flow Rate 4 4 4 02/03/19 12:21 Temperature Temperature Source Sepsis Recent Fever Within 48 Hours Sepsis Action Taken by Nursing Pulse Rate 126 H Pulse Rate from SpO2 Sensor 126 H Respiratory Rate 18 Respiratory Depth Blood Pressure 130/50 L Blood Pressure Mean 76 Pulse Oximetry 90 Oxygen Delivery Method Nasal Cannula Oxygen Flow Rate 4 CONSTITUTIONAL/VITAL SIGNS: Reviewed / noted above. GENERAL: Non-toxic in appearance. Drowsy. Not conversant. INTEGUMENTARY: Warm, dry, and [place]. HEAD: Normocephalic. EYES: without scleral icterus or trauma. ENT/OROPHARYNX: clear and moist. LYMPHADENOPATHY/NECK: Is supple without lymphadenopathy or meningismus. RESPIRATORY: Diminished breath sounds in the bases. CARDIOVASCULAR: Regular rate and rhythm. GI/ABDOMEN: Soft and nontender. No organomegaly or pulsatile mass. No rebound or guarding. Normal bowel sounds. Diminished breath sounds in the bases. EXTREMITIES: Warm and well perfused. BACK: No CVA tenderness. NEUROLOGICAL: Intact without focal deficits. Drowsy. Not conversant. PSYCHIATRIC: normal affect. MUSCULOSKELETAL: Normally developed with good muscle tone. Course 1006: Past medical records reviewed. The patient was evaluated in room C06. A complete history and physical examination was performed. 1230: I reviewed the patient's case with Roxie Gregg Hospitalist - [facility]. She will evaluate the patient for further management. Administered Medications Discontinued Medications Piperacillin Sod/Tazobactam Sod (Zosyn) 4.5 gm in 120 mls @ 200 mls/hr IV NOW STA Stop: 02/03/19 10:59 Last Admin: 02/03/19 12:19 Dose: 200 mls/hr Documented by: [id number] Sodium Chloride (Nss 1000ml) 1,000 mls @ 999 mls/hr IV .Q1H1M MEE Stop: 02/03/19 11:30 Last Infusion: 02/03/19 11:04 Dose: 0 mls/hr Documented by: [id number] Admin: 02/03/19 10:40 Dose: 999 mls/hr Documented by: [id number] Medical Decision Making Differential Diagnosis Differential diagnosis includes: Metabolic, infection, hypoglycemia, electrolyte abnormalities, cardiac sources, intracerebral event, toxicologic, neurologic, as well as others were entertained. Medical Records Attestation: I reviewed the patient's medical records. Home Medications Current Medication List: was personally reviewed by me Laboratory Data Attestation: I reviewed the patient's lab results. Result diagrams: 02/03/19 11:16 02/03/19 11:16 Lab Results 02/03/19 02/03/19 02/03/19 Range/Units 10:15 10:45 11:16 WBC 23.97 H (4.8-10.8) K/uL RBC 3.53 L (4.2-5.4) M/uL Hgb 9.9 L (12.0-16.0) g/dL Hct 32.8 L (37-47) % MCV 92.9 (80-100) fL MCH 28.0 (25-34) pg MCHC 30.2 L (32-36) g/dL RDW Std Deviation 57.5 H (36.4-46.3) fL RDW Coeff of Omar 17.0 H (11.5-14.5) % Plt Count 231 (130-400) K/uL MPV 9.8 (7.4-10.4) fL Immature Gran % (Auto) 0.5 % Neut % (Auto) 82.8 % Lymph % (Auto) 9.1 % [place] % (Auto) 6.2 % Eos % (Auto) 1.3 % Baso % (Auto) 0.1 % Immature Gran # (Auto) 0.13 H (0.00-0.02) K/uL Neut # (Auto) 19.86 H (1.4-6.5) K/uL Lymph # (Auto) 2.17 (1.2-3.4) K/uL [place] # (Auto) 1.48 H (0.11-0.59) K/uL Eos # (Auto) 0.31 (0-0.5) K/uL Baso # (Auto) 0.02 (0-0.2) K/uL PT (9.0-12.0) Seconds INR (0.9-1.1) Sodium (136-145) mmol/L Potassium (3.5-5.1) mmol/L Chloride (98-107) mmol/L Carbon Dioxide (21-32) mmol/L Anion Gap (3-11) BUN (7-18) mg/dl Creatinine (0.6-1.2) mg/dl Est Cr Clr Drug Dosing ml/min Est GFR ( Amer) Est GFR (Non-Af Amer) BUN/Creatinine Ratio (10-20) Glucose (70-99) mg/dl POC Glucose (70-99) POC Lactic Acid [place] (0.90-1.70) mmol/L Calcium (8.5-10.1) mg/dl Total Bilirubin (0.2-1) mg/dl AST (15-37) U/L ALT (12-78) U/L Alkaline Phosphatase (45-117) U/L Troponin I (0-0.045) ng/ml Total Protein (6.4-8.2) gm/dl Albumin (3.4-5.0) gm/dl Globulin (2.5-4.0) gm/dl Albumin/Globulin Ratio (0.9-2) Procalcitonin (0-0.5) ng/ml Urine Color Dark Yellow Urine Appearance Clear (Clear) Urine pH 5.0 (4.5-7.5) Ur Specific [place] 1.015 (1.000-1.030) Urine Protein Negative (Negative) Urine Glucose (UA) Negative (Negative) Urine Ketones Negative (Negative) Urine Blood 2+ H (Negative) Urine Nitrite Positive H (Negative) Urine Bilirubin Negative (Negative) Urine Urobilinogen Negative (Negative) Ur Leukocyte Esterase Trace H (Negative) Urine WBC (Auto) 1-5 (0-5) /hpf Urine RBC (Auto) 5-10 H (0-4) /hpf U Hyaline Cast (Auto) 1-5 (0-5) /lpf U Epithel Cells (Auto) 5-10 H (0-5) /lpf Urine Bacteria (Auto) 4+ H (Negative) Influenza Type A Ag Neg for Influ A (Neg) Influenza Type B Ag Neg for Influ B (Neg) 02/03/19 02/03/19 02/03/19 Range/Units 11:16 11:16 11:16 WBC (4.8-10.8) K/uL RBC (4.2-5.4) M/uL Hgb (12.0-16.0) g/dL Hct (37-47) % MCV (80-100) fL MCH (25-34) pg MCHC (32-36) g/dL RDW Std Deviation (36.4-46.3) fL RDW Coeff of Omar (11.5-14.5) % Plt Count (130-400) K/uL MPV (7.4-10.4) fL Immature Gran % (Auto) % Neut % (Auto) % Lymph % (Auto) % [place] % (Auto) % Eos % (Auto) % Baso % (Auto) % Immature Gran # (Auto) (0.00-0.02) K/uL Neut # (Auto) (1.4-6.5) K/uL Lymph # (Auto) (1.2-3.4) K/uL [place] # (Auto) (0.11-0.59) K/uL Eos # (Auto) (0-0.5) K/uL Baso # (Auto) (0-0.2) K/uL PT 10.7 (9.0-12.0) Seconds INR 1.0 (0.9-1.1) Sodium 144 (136-145) mmol/L Potassium 3.4 L (3.5-5.1) mmol/L Chloride 109 H (98-107) mmol/L Carbon Dioxide 28 (21-32) mmol/L Anion Gap 7.0 (3-11) BUN 15 (7-18) mg/dl Creatinine 1.12 (0.6-1.2) mg/dl Est Cr Clr Drug Dosing 34.1 ml/min Est GFR ( Amer) 51.5 Est GFR (Non-Af Amer) 44.4 BUN/Creatinine Ratio 13.2 (10-20) Glucose 129 H (70-99) mg/dl POC Glucose (70-99) POC Lactic Acid [place] (0.90-1.70) mmol/L Calcium 8.8 (8.5-10.1) mg/dl Total Bilirubin 0.3 (0.2-1) mg/dl AST 17 (15-37) U/L ALT 24 (12-78) U/L Alkaline Phosphatase 82 (45-117) U/L Troponin I 0.020 (0-0.045) ng/ml Total Protein 6.1 L (6.4-8.2) gm/dl Albumin 2.9 L (3.4-5.0) gm/dl Globulin 3.2 (2.5-4.0) gm/dl Albumin/Globulin Ratio 0.9 (0.9-2) Procalcitonin 1.52 H (0-0.5) ng/ml Urine Color Urine Appearance (Clear) Urine pH (4.5-7.5) Ur Specific [place] (1.000-1.030) Urine Protein (Negative) Urine Glucose (UA) (Negative) Urine Ketones (Negative) Urine Blood (Negative) Urine Nitrite (Negative) Urine Bilirubin (Negative) Urine Urobilinogen (Negative) Ur Leukocyte Esterase (Negative) Urine WBC (Auto) (0-5) /hpf Urine RBC (Auto) (0-4) /hpf U Hyaline Cast (Auto) (0-5) /lpf U Epithel Cells (Auto) (0-5) /lpf Urine Bacteria (Auto) (Negative) Influenza Type A Ag (Neg) Influenza Type B Ag (Neg) 02/03/19 02/03/19 Range/Units 11:24 11:36 WBC (4.8-10.8) K/uL RBC (4.2-5.4) M/uL Hgb (12.0-16.0) g/dL Hct (37-47) % MCV (80-100) fL MCH (25-34) pg MCHC (32-36) g/dL RDW Std Deviation (36.4-46.3) fL RDW Coeff of Omar (11.5-14.5) % Plt Count (130-400) K/uL MPV (7.4-10.4) fL Immature Gran % (Auto) % Neut % (Auto) % Lymph % (Auto) % [place] % (Auto) % Eos % (Auto) % Baso % (Auto) % Immature Gran # (Auto) (0.00-0.02) K/uL Neut # (Auto) (1.4-6.5) K/uL Lymph # (Auto) (1.2-3.4) K/uL [place] # (Auto) (0.11-0.59) K/uL Eos # (Auto) (0-0.5) K/uL Baso # (Auto) (0-0.2) K/uL PT (9.0-12.0) Seconds INR (0.9-1.1) Sodium (136-145) mmol/L Potassium (3.5-5.1) mmol/L Chloride (98-107) mmol/L Carbon Dioxide (21-32) mmol/L Anion Gap (3-11) BUN (7-18) mg/dl Creatinine (0.6-1.2) mg/dl Est Cr Clr Drug Dosing ml/min Est GFR ( Amer) Est GFR (Non-Af Amer) BUN/Creatinine Ratio (10-20) Glucose (70-99) mg/dl POC Glucose 132 H (70-99) POC Lactic Acid [place] 2.11 H (0.90-1.70) mmol/L Calcium (8.5-10.1) mg/dl Total Bilirubin (0.2-1) mg/dl AST (15-37) U/L ALT (12-78) U/L Alkaline Phosphatase (45-117) U/L Troponin I (0-0.045) ng/ml Total Protein (6.4-8.2) gm/dl Albumin (3.4-5.0) gm/dl Globulin (2.5-4.0) gm/dl Albumin/Globulin Ratio (0.9-2) Procalcitonin (0-0.5) ng/ml Urine Color Urine Appearance (Clear) Urine pH (4.5-7.5) Ur Specific [place] (1.000-1.030) Urine Protein (Negative) Urine Glucose (UA) (Negative) Urine Ketones (Negative) Urine Blood (Negative) Urine Nitrite (Negative) Urine Bilirubin (Negative) Urine Urobilinogen (Negative) Ur Leukocyte Esterase (Negative) Urine WBC (Auto) (0-5) /hpf Urine RBC (Auto) (0-4) /hpf U Hyaline Cast (Auto) (0-5) /lpf U Epithel Cells (Auto) (0-5) /lpf Urine Bacteria (Auto) (Negative) Influenza Type A Ag (Neg) Influenza Type B Ag (Neg) Imaging Data Radiologist's Impression: Radiology results as stated below per my review and the radiologist's interpretation: CT head/brain wo con CLINICAL HISTORY: 88 years-old Female presenting with ams. TECHNIQUE: Multidetector CT imaging of the head was performed without the use of intravenous contrast. IV contrast: None. One or more dose lowering techniques were used consistent with the principles of ALARA (as low as reasonably achie vable), including automatic exposure control, mA or kV adjustment to individual patient size, and/or use of iterative reconstruction. COMPARISON: CT head from 11/23/2018 and MR brain from 11/23/2018. CT DOSE (mGy.cm): The estimated cumulative dose is 537.48 mGy.cm. FINDINGS: [employer] topogram: Unremarkable. Proportional ventricular and sulcal prominence, likely age-related parenchymal volume loss. No hemorrhage. Periventricular and subcortical white matter hypoattenuation, nonspecific but likely indicative of chronic small vessel ischemic change. No acute territorial infarct. No mass effect or midline shift. No extra-axial fluid collection. Paranasal sinuses and mastoid air cells clear. Calvarium intact. Absent [place] lenses. IMPRESSION: 1. Chronic small vessel ischemic change. No acute intracranial abnormality. Electronically signed by: Teddy Lopez M.D. 02/03/2019 12:16 PM Dictated: 02/03/19 1211 Transcribed: 02/03/19 1211 XR chest 1V portable CLINICAL HISTORY: 88 years-old Female presenting with ams. TECHNIQUE: Portable upright AP view of the chest was obtained. COMPARISON: 01/03/2019. FINDINGS: Atherosclerosis of the aortic arch. Cardiac silhouette borderline enlarged. Bandlike opacity in the left lower lung persists. Heterogeneous lung markings. Increased density in the right perihilar region slightly altered in appearance from prior. This may represent overlapping rib shadow and perihilar vasculature. No other new focal opacity. No large effusion or pneumothorax. Degenerative changes of the thoracic spine. Upper abdomen normal. IMPRESSION: 1. Apparent density in the right perihilar region new from prior though this may represent a rib shadow and/or overlapping vasculature. PA and lateral view may better clarify this finding. 2. Persistent left basilar atelectasis or scarring. 3. No other findings to suggest acute cardiopulmonary disease. Electronically signed by: Teddy Lopez M.D. 02/03/2019 11:01 AM Dictated: 02/03/19 105 Transcribed: 02/03/19 105 ECG Data Attestation: I personally reviewed and interpreted this ECG as follows: Indication: other (fever) Rate (beats per minute): 134 Rhythm: sinus tachycardia Findings: no ST elevation and no ectopy Blood Pressure Blood Pressure Findings: Normal blood pressure Blood Pressure Disposition: further management by hospitalist GRACE Martha Is an 88-year-old female who presents to the ED with a chief complaint of altered mental status and fever. The patient presents from a fpc. She is unable to provide any history. Her temperature here was 39.5. She does use oxygen at home. She uses 2 L. She was slightly hypoxic on this and required [address] scan of the brain did not show acute process. EKG shows a sinus tach. White blood cell count was elevated at 23,000. Hemoglobin is baseline. Metabolic panel was unremarkable. Procalcitonin was slightly elevated. Urine is suggestive of infection. Chest x-ray reveals a right perihilar density but otherwise no obvious infiltrate. The patient was treated with IV Zosyn. She is allergic to quinolones. She will be seen by the hospitalist for further i npatient evaluation and care. Impression & Plan Altered mental status, UTI (urinary tract infection), Fever, Tachycardia : Altered mental status Qualifiers: Altered mental status type: unspecified Qualified Code(s): R41.82 - Altered mental status, unspecified UTI (urinary tract infection) Qualifiers: Urinary tract infection type: site unspecified Hematuria presence: with hematuria Qualified Code(s): N39.0 - Urinary tract infection, site not specified Fever Qualifiers: Fever type: unspecified Qualified Code(s): R50.9 - Fever, unspecified The scribe's documentation has been prepared under my direction and personally reviewed by me in its entirety. I confirm that the note above accurately reflects all work, treatment, procedures, and medical decision making performed by me.
--- NOTE | 2019-02-03 13:27 | History & Physical Report ---
Date of Service February 03, 2019 Assessment & Plan (1) Altered mental status: Likely related to UTI, hx of recurrent Similar sx with UTI in the past Urine and blood cx pending Started on zosyn in the ED, last cx with R to amp/sulbactram--switch to ceftriaxone which was noted as sensitive Elevated WBC Follows with urology and ID if needed Flu neg CXR neg for PNA CT head neg for acute (2) Prediabetes: SSI PRN (3) Anemia: Hx of recent iron transfusions (4) Recurrent UTI: Alternates between 3 abx [id number] Currently on doxy, will hold given above (5) Chronic respiratory failure: Chronic O2 use (6) Mood disorder: continue home meds (7) Neuropathy: continue home meds (8) SLE (systemic lupus erythematosus): continue home meds (9) Rheumatoid arthritis: continue home meds (10) Hypothyroid: continue home meds (11) Depression: continue home meds (12) Hyperlipidemia: continue home meds (13) Peripheral artery disease: Aspirin/plavix (14) DVT prophylaxis: Heparin for DVT proph History of Present Illness Primary Care Provider: Nidhi Gardner MD 88 y/o F who was sent to the ED for AMS. Pt is not answering all questions, so hx is provided by pt's daughter. She states that she was with pt yesterday AM. She had a good breakfast. She said she spoke with pt around 2:30p and pt noted she continued to be very sleepy all day, but no other concerns at that time. She states pt seemed her usual other than tired. Pt has caregivers in her home 12 hrs a day. When the caregiver arrived around 8:30a today, pt was what the daughter describes as "unresponsive". When directly asked what that means, she states pt's eyes are open and she answers some questions, but not as she usually would and does not answer other questions. She was never LOC. Daughter states this is how she gets with UTI. She has hx of recurrent UTI. She follows with Urology and ID. She does rotating abx for this reason. She is on doxy currently. Pt denies pain currently. Pt denies fever, SOB, chest pain, abd pain, n/v/c/d, LE pain or swelling. 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 Allergies Allergy/AdvReac Type Severity Reaction Status Date / Time nitrofurantoin Allergy Severe HIVES Verified 02/03/19 10:46 scallops Allergy Severe THROAT Verified 02/03/19 10:46 SWELLS Cipro Allergy Intermediate HIVES Verified 06/03/18 16:34 ciprofloxacin Allergy Intermediate HIVES Verified 02/03/19 10:46 latex Allergy Intermediate RASH Verified 02/03/19 10:46 Quinolones Allergy Intermediate HIVES Verified 02/03/19 10:46 fluticasone Allergy Unknown ADVAIR-UNKN Verified 02/03/19 10:46 OWN salmeterol Allergy Unknown ADVAIR Verified 02/03/19 10:46 celecoxib AdvReac Intermediate barretts Verified 02/03/19 10:46 esophagus lactose AdvReac Intermediate GI UPSET Verified 02/03/19 10:46 morphine AdvReac Intermediate NAUSEA AND Verified 02/03/19 10:46 VOMITING Home Medications Home Medications Medication Instructions Recorded Confirmed Type ascorbic acid (vitamin C) 500 mg 500 mg PO QAM 07/07/18 02/03/19 History tablet aspirin 81 mg tablet,delayed 81 mg PO QAM 07/07/18 02/03/19 History release cholecalciferol (vitamin D3) 2,000 2,000 units PO QAM 07/07/18 02/03/19 History unit capsule fexofenadine 60 mg tablet 60 mg PO QAM tab 07/07/18 02/03/19 History hydroxychloroquine 200 mg tablet 300 mg PO QAM tab 07/07/18 02/03/19 History levothyroxine 88 mcg tablet 88 mcg PO QAM 07/07/18 02/03/19 History nitroglycerin 0.4 mg sublingual 0.4 mg SL Q5M PRN #1 tab 07/07/18 02/03/19 Rx tablet clopidogrel [Plavix] 75 mg PO QAM 08/10/18 02/03/19 History diclofenac sodium [Voltaren] 4 gm TOP QID PRN MDD 16G 08/10/18 02/03/19 History duloxetine [Cymbalta] 60 mg PO QAM 08/10/18 02/03/19 History fluticasone propionate [Flonase 2 spray INTRANASAL DAILY PRN 08/10/18 02/03/19 History Allergy Relief] lidocaine 1 applic TOPICAL QID PRN 08/10/18 02/03/19 History ondansetron HCl [Zofran] 8 mg PO Q6 PRN 08/10/18 02/03/19 History Ocuvite with Lutein 1 tab PO QAM 08/31/18 02/03/19 History cyanocobalamin (vitamin B-12) 1,000 mcg PO QAM 08/31/18 02/03/19 History [Vitamin B-12] oxycodone 10 mg PO BID 08/31/18 02/03/19 History gabapentin 300 mg PO TID 09/26/18 02/03/19 History polyethylene glycol 3350 [Miralax] 17 gm PO QAM PRN 09/26/18 02/03/19 History vitamin B complex 1 tab PO QAM 09/26/18 02/03/19 History Azo Urinary Pain Relief 97.5 mg PO TID PRN 11/07/18 02/03/19 History Dexilant 60 mg PO BID 11/07/18 02/03/19 History midodrine 5 mg PO TID@0800,1200,1700 11/07/18 02/03/19 History prazosin 1 mg PO HS 11/07/18 02/03/19 History prednisone 10 mg PO QAM 11/07/18 02/03/19 History duloxetine 30 mg PO QAM #0 cap 11/25/18 02/03/19 Rx atorvastatin 40 mg PO QAM 12/13/18 02/03/19 History quetiapine 200 mg PO HS 12/13/18 02/03/19 History acetaminophen [Tylenol Extra 1,000 mg PO PM 01/03/19 02/03/19 History Strength] doxycycline hyclate 100 mg PO PM 01/03/19 02/03/19 History Past Med/Surg History Medical History Rheumatoid arthritis Chronic back pain (Chronic) Depression (Chronic 03/10/13) Major depressive disorder, recurrent episode with anxious distress Acute gastritis (03/23/12) Cholecystectomy (03/10/13) Colostomy present Diabetes mellitus Diverticula of colon Falls frequently History of colitis Infected abrasion of great toe of left foot Infected abrasion of great toe of right foot Lactose intolerance Low blood pressure Pituitary adenoma (03/10/13) Slurred speech TIA (transient ischemic attack) Vasovagal syncope (03/10/13) Surgical History H/O: hysterectomy History of hip replacement History of surgical removal of pituitary gland History of surgical removal of pituitary gland Hx of cholecystectomy Family History Other Cancer Diabetes Gallbladder disease Heart disease Hypertension Seizure Social History Preferred Language: Swiss Communication Ability: Effective Beliefs That Will Affect Care: Uatsdin Uatsdin Beliefs: Rastafari marital status: / Current Living Situation: Alone Current Living Situation Comment: With [facility] Feels Safe at Home: Yes Smoking Status: Never smoker Second Hand Exposure: No Hx Alcohol Use: No Hx Substance Use: No Review of Systems Review of Systems: Pertinent positives and negatives reviewed in HPI--all others negative Physical Exam Constitutional: WD/WN, vitals as above Eyes: normal visual gaston by confrontation and + anicteric sclerae Neck: normal visual inspection and trachea midline Respiratory: normal respiratory effort, lungs clear to auscultation Cardiovascular: Rate/Rhythm: regular rate and regular rhythm Gastrointestinal (Abdomen): Inspection/Auscultation: abdomen not distended Percussion/Palpation: abdomen soft; abdomen nontender Musculoskeletal: Head/Neck/Chest: normocephalic and head atraumatic negative for edema, peripheral pulses intact Skin: no rashes, warm and dry Neurologic: awake; not confused Speech / Cognition: normal speech Psychiatric: Orientation: alert, oriented to person and cooperative Eye Contact: good eye contact Speech: normal rate/rhythm/volume of speech Answers some questions but not others Results & Data Vital Signs (Past 12 Hours) Vital Signs Temp Pulse Resp BP Pulse Ox 02/03/19 12:21 126 H 18 130/50 L 90 02/03/19 12:00 126 H 14 128/45 L 94 02/03/19 11:45 124 H 17 127/45 L 94 02/03/19 11:31 128 H 19 144/48 H 94 02/03/19 11:15 128 H 18 94 02/03/19 11:00 127 H 20 139/41 L 94 02/03/19 10:45 130 H 26 H 140/56 L 94 02/03/19 10:40 39.3 C H 02/03/19 10:24 86 L 02/03/19 10:19 37.2 C 128 H 20 165/66 H 90 Diagnostic Findings CXR: R perihilar density CT head: neg for acute ECG Rhythm: sinus tachycardia Code Status & VTE Plan Code Status Full code per daughter. Pt did not answer these questions. Daughter states she has a living will VTE Prophylaxis Plan VTE Prophylaxis will be ordered: Yes (1) Altered mental status Altered mental status type: unspecified Qualified Code(s): R41.82 - Altered mental status, unspecified (2) Anemia Anemia type: unspecified type Qualified Code(s): D64.9 - Anemia, unspecified
[2019-02-03] MEDS ORDERED: ONDANSETRON INJ 2 MG/ML 2 ML VIAL IV PRN (14:46)
[2019-02-03] MEDS ORDERED: ONDANSETRON 8 MG TABLET PO PRN (14:46)
[2019-02-03] MEDS ORDERED: GLUCOSE 10 TABS/TUBE PO PRN (14:46)
[2019-02-03] MEDS ORDERED: PHENAZOPYRIDINE HCL 100 MG TAB PO PRN (14:46)
[2019-02-03] MEDS ORDERED: MAGNESIUM HYDROXIDE SUSP 30 ML UDC PO PRN (14:46)
[2019-02-03] MEDS ORDERED: GLUCOSE 40% GEL 15 GM TUBE PO PRN (14:46)
[2019-02-03] MEDS ORDERED: CARBOHYDRATES FOR HYPOGLYCEMIA PO PRN (14:46)
[2019-02-03] MEDS ORDERED: LIDOCAINE HCL 5% OINT 30 GM TUBE TOP PRN (14:46)
[2019-02-03] MEDS ORDERED: DEXTROSE 50% 50 ML SYRINGE IV PRN (14:46)
[2019-02-03] MEDS ORDERED: POLYETHYLENE (MIRALAX) 17 GM PACK PO PRN (14:46)
[2019-02-03] MEDS ORDERED: GLUCAGON FOR INJ 1 MG VIAL SQ PRN (14:46)
[2019-02-03] MEDS ORDERED: ACETAMINOPHEN 325 MG TAB PO PRN (14:46)
[2019-02-03] MEDS ORDERED: FLUTICASONE PROPIONATE NA SPR 16 GM BTL PRN (14:46)
[2019-02-03] MEDS: NSS + 20MEQ KCL 20 MEQ/1,000 ML BAG IV SCH (16:16)
[2019-02-03] MEDS ORDERED: INSULIN ASPART 100 UNITS/ML 3 ML PEN SC SCH (16:30)
[2019-02-03] MEDS ORDERED: Nursing to Pharmacy Communication ONE (17:07)
[2019-02-03] MEDS: GABAPENTIN 300 MG CAP PO SCH ×2 (17:14→21:49)
[2019-02-03] MEDS: MIDODRINE HCL 2.5 MG TAB PO SCH (17:39)
[2019-02-03] MEDS: HEPARIN SOD 5,000 UNIT/0.5 ML VIAL SQ SCH ×3 (17:39→21:50)
[2019-02-03] MEDS: cefTRIAXone SODIUM 2,000 MG in DEXTROSE 5% 50 ML IV SCH (18:41)
[2019-02-03] MEDS: INSULIN ASPART 100 UNITS/ML 3 ML PEN SC SCH (18:41)
[2019-02-03] MEDS: PRAZOSIN HCL 1 MG CAP PO SCH (21:49)
[2019-02-03] MEDS: OXYCODONE HCL IR 5 MG TAB (IMMEDIATE RELEASE) PO SCH (21:49)
[2019-02-03] MEDS: ACETAMINOPHEN 500 MG TAB PO SCH (21:50)
[2019-02-03] MEDS: QUETIAPINE FUMARATE 200 MG TAB PO SCH (21:50)
[2019-02-04] MEDS: INSULIN ASPART 100 UNITS/ML 3 ML PEN SC SCH ×5 (00:04→21:49)
[2019-02-04] MEDS: NSS + 20MEQ KCL 20 MEQ/1,000 ML BAG IV SCH ×2 (03:03→12:00)
[2019-02-04] MEDS: HEPARIN SOD 5,000 UNIT/0.5 ML VIAL SQ SCH ×3 (05:17→20:37)
[2019-02-04] MEDS: LEVOTHYROXINE SODIUM 88 MCG TABLET PO SCH (05:18)
[2019-02-04 05:54] LABS: Hematocrit (blood only) 29.9 % (37-47); Mean Corpuscular Hgb Conc 30.1 g/dL (32-36); Mean Platelet Volume 9.9 fL (7.4-10.4); Platelet Count 208 K/uL (130-400); RDW Coefficient of Variation 17.4 % (11.5-14.5); RDW Standard Deviation 59.8 fL (36.4-46.3); Red Blood Count 3.18 M/uL (4.2-5.4); White Blood Count 26.75 K/uL (4.8-10.8)
[2019-02-04 06:17] LABS: Basophils # (auto) 0.03 K/uL (0-0.2); Basophils % (auto) 0.1 %; Eosinophils # (auto) 0.54 K/uL (0-0.5); Immature Granulocytes # (auto) 0.11 K/uL (0.00-0.02); Immature Granulocytes % (auto) 0.4 %; Lymphocytes # (auto) 2.34 K/uL (1.2-3.4); Lymphocytes % (auto) 8.7 %; Monocytes # (auto) 1.64 K/uL (0.11-0.59); Monocytes % (auto) 6.1 %; Neutrophils # (auto) 22.09 K/uL (1.4-6.5); Neutrophils % (auto) 82.7 %
[2019-02-04 06:23] LABS: BUN Creatinine Ratio 14.6 (10-20); Calcium 7.6 mg/dl (8.5-10.1); Creatinine Clr Calc Pharmacy 30.8 ml/min; Est GFR (African American) 45.5; Est GFR (Non-African American) 39.3; Potassium 4.1 mmol/L (3.5-5.1)
--- NOTE | 2019-02-04 09:44 | Hospitalist Progress Note ---
Date of Service February 04, 2019 Assessment & Plan (1) Altered mental status: Likely related to UTI, hx of recurrent Similar sx with UTI in the past Urine and blood cx pending Started on zosyn in the ED, last cx with R to amp/sulbactram--switch to ceftriaxone which was noted as sensitive Elevated WBC: remains elevated. will recheck in AM. Will keep current antibiotic. Mental status appears to be improving. Follows with urology and ID if needed Flu neg CXR neg for PNA CT head neg for acute (2) Prediabetes: SSI PRN (3) Anemia: Hx of recent iron transfusions (4) Recurrent UTI: Alternates between 3 abx [id number] Currently on doxy, will hold given above (5) Chronic respiratory failure: Chronic O2 use (6) Mood disorder: continue home meds (7) Neuropathy: continue home meds (8) SLE (systemic lupus erythematosus): continue home meds (9) Rheumatoid arthritis: continue home meds (10) Hypothyroid: continue home meds (11) Depression: continue home meds (12) Hyperlipidemia: continue home meds (13) Peripheral artery disease: Aspirin/plavix (14) DVT prophylaxis: Heparin for DVT proph Spent 35 minutes in management of patient. Subjective Patient is more awake today. Answering questions apprpoiately. Patient asked for water and was able to drink it without showing signs of aspiration. Asking for food. Patient not aware as to why she is in the hospital, does not remember the event s of the previous day, but knows today is wednesday. Review of Systems Constitutional: + fatigue; no chills, no sweats and no malaise Eyes: no blind spots and no discharge Ear, Nose, Mouth, Throat: no ear pain Respiratory: no cough Cardiovascular: no chest pain Gastrointestinal: no bloating Genitourinary: no hematuria Musculoskeletal: no loss of height and no swelling Integumentary: no acne Neurologic: + confusion (on day of admission); no gait abnormality Psychiatric: no behavioral changes Endocrine: no polydipsia Physical Exam Physical Exam: Constitutional: WD/WN, vitals as above Eyes: normal visual gaston by confrontation and + anicteric sclerae Neck: normal visual inspection and trachea midline Respiratory: normal respiratory effort, lungs clear to auscultation Cardiovascular: Rate/Rhythm: regular rate and regular rhythm Gastrointestinal (Abdomen): Inspection/Auscultation: abdomen not distended Percussion/Palpation: abdomen soft; abdomen nontender Musculoskeletal: Head/Neck/Chest: normocephalic and head atraumatic negative for edema, peripheral pulses intact Skin: no rashes, warm and dry Neurologic: awake; not confused Speech / Cognition: normal speech Psychiatric: Orientation: alert, oriented to person, place and time. Cooperative Eye Contact: good eye contact Speech: normal rate/rhythm/volume of speech Results & Data Vital Signs (Past 12 Hours) Vital Signs Temp Pulse Pulse Resp BP BP Pulse Ox 02/04/19 09:03 104 H 02/04/19 08:10 37.3 C 104 H 20 106/62 95 02/04/19 05:58 106 H 94/56 L 93 02/04/19 04:42 37.1 C 102 H 20 92/56 L 93 02/04/19 00:02 104 H 92/50 L 02/03/19 23:10 99 H 02/03/19 23:00 36.9 C 103 H 20 92/48 L 91 (1) Anemia Anemia type: unspecified type Qualified Code(s): D64.9 - Anemia, unspecified (2) Altered mental status Altered mental status type: unspecified Qualified Code(s): R41.82 - Altered mental status, unspecified
--- NOTE | 2019-02-04 10:06 | Infectious Disease Consult ---
Date of Consultation February 04, 2019 Assessment & Plan (1) UTI (urinary tract infection): 88-year-old female with recurrent urinary tract infection associated with encephalopathy, now slightly better after fluids and antibiotics. Patient will continue on IV ceftriaxone pending final culture results. Will adjust once these are available. Will follow. (2) Oth gram negatv bacteria: History of Present Illness Reason for Consultation: Recurrent urinary tract infection Attending Physician: Warren Iraheta History of Present Illness 88-year-old female well-known to me previous infectious disease consultations in follow-up, with history of multiple recurrences of urinary tract infection associated with encephalopathy, often requiring hospitalization. She had been doing well until day of admission when she was noted to become poorly responsive with difficulty answering questions and marked lethargy. Symptoms are similar to prior episodes of urinary tract infection. She was brought to the emergency room and was admitted with evidence of recurrent urinary tract infection. She was started empirically on IV ceftriaxone. Urine culture now growing gram- negative bacilli. Previous culture was positive for Klebsiella pneumoniae. No report of significant fever or chills. Currently denies any significant ab dominal pain. Allergies Allergy/AdvReac Type Severity Reaction Status Date / Time nitrofurantoin Allergy Severe HIVES Verified 02/03/19 10:46 scallops Allergy Severe THROAT Verified 02/03/19 10:46 SWELLS Cipro Allergy Intermediate HIVES Verified 06/03/18 16:34 ciprofloxacin Allergy Intermediate HIVES Verified 02/03/19 10:46 latex Allergy Intermediate RASH Verified 02/03/19 10:46 Quinolones Allergy Intermediate HIVES Verified 02/03/19 10:46 fluticasone Allergy Unknown ADVAIR-UNKN Verified 02/03/19 10:46 OWN salmeterol Allergy Unknown ADVAIR Verified 02/03/19 10:46 celecoxib AdvReac Intermediate barretts Verified 02/03/19 10:46 esophagus lactose AdvReac Intermediate GI UPSET Verified 02/03/19 10:46 morphine AdvReac Intermediate NAUSEA AND Verified 02/03/19 10:46 VOMITING Home Medications Home Medications Medication Instructions Recorded Confirmed Type ascorbic acid (vitamin C) 500 mg 500 mg PO QAM 07/07/18 02/03/19 History tablet aspirin 81 mg tablet,delayed 81 mg PO QAM 07/07/18 02/03/19 History release cholecalciferol (vitamin D3) 2,000 2,000 units PO QAM 07/07/18 02/03/19 History unit capsule fexofenadine 60 mg tablet 60 mg PO QAM tab 07/07/18 02/03/19 History hydroxychloroquine 200 mg tablet 300 mg PO QAM tab 07/07/18 02/03/19 History levothyroxine 88 mcg tablet 88 mcg PO QAM 07/07/18 02/03/19 History nitroglycerin 0.4 mg sublingual 0.4 mg SL Q5M PRN #1 tab 07/07/18 02/03/19 Rx tablet clopidogrel [Plavix] 75 mg PO QAM 08/10/18 02/03/19 History diclofenac sodium [Voltaren] 4 gm TOP QID PRN MDD 16G 08/10/18 02/03/19 History duloxetine [Cymbalta] 60 mg PO QAM 08/10/18 02/03/19 History fluticasone propionate [Flonase 2 spray INTRANASAL DAILY PRN 08/10/18 02/03/19 History Allergy Relief] lidocaine 1 applic TOPICAL QID PRN 08/10/18 02/03/19 History ondansetron HCl [Zofran] 8 mg PO Q6 PRN 08/10/18 02/03/19 History Ocuvite with Lutein 1 tab PO QAM 08/31/18 02/03/19 History cyanocobalamin (vitamin B-12) 1,000 mcg PO QAM 08/31/18 02/03/19 History [Vitamin B-12] oxycodone 10 mg PO BID 08/31/18 02/03/19 History gabapentin 300 mg PO TID 09/26/18 02/03/19 History polyethylene glycol 3350 [Miralax] 17 gm PO QAM PRN 09/26/18 02/03/19 History vitamin B complex 1 tab PO QAM 09/26/18 02/03/19 History Azo Urinary Pain Relief 97.5 mg PO TID PRN 11/07/18 02/03/19 History Dexilant 60 mg PO BID 11/07/18 02/03/19 History midodrine 5 mg PO TID@0800,1200,1700 11/07/18 02/03/19 History prazosin 1 mg PO HS 11/07/18 02/03/19 History prednisone 10 mg PO QAM 11/07/18 02/03/19 History duloxetine 30 mg PO QAM #0 cap 11/25/18 02/03/19 Rx atorvastatin 40 mg PO QAM 12/13/18 02/03/19 History quetiapine 200 mg PO HS 12/13/18 02/03/19 History acetaminophen [Tylenol Extra 1,000 mg PO PM 01/03/19 02/03/19 History Strength] doxycycline hyclate 100 mg PO PM 01/03/19 02/03/19 History Patient History Medical History Rheumatoid arthritis Chronic back pain (Chronic) Depression (Chronic 03/10/13) Major depressive disorder, recurrent episode with anxious distress Acute gastritis (03/23/12) Cholecystectomy (03/10/13) Colostomy present Diabetes mellitus Diverticula of colon Falls frequently History of colitis Infected abrasion of great toe of left foot Infected abrasion of great toe of right foot Lactose intolerance Low blood pressure Pituitary adenoma (03/10/13) Slurred speech TIA (transient ischemic attack) Vasovagal syncope (03/10/13) Surgical History H/O: hysterectomy History of hip replacement History of surgical removal of pituitary gland History of surgical removal of pituitary gland Hx of cholecystectomy Family History Other Cancer Diabetes Gallbladder disease Heart disease Hypertension Seizure Social History Preferred Language: Georgian Communication Ability: lethargic Head Teacher Required: No Beliefs That Will Affect Care: None marital status: / Current Living Situation: Alone Current Living Situation Comment: With [facility] Other Information That Helps Us Care for You: No Feels Safe at Home: Yes Safety Concerns: Feels Safe At This Time Smoking Status: Never smoker Do You Dip or Chew Tobacco: No Second Hand Exposure: No Tobacco Cessation Education Requested by Patient: No Hx Alcohol Use: No Hx Substance Use: No Review of Systems Review of Systems: All systems reviewed & are unremarkable except as noted in HPI & below Physical Exam 2 Constitutional: WD/WN, vitals as above comfortable; no acute distress Eyes: PERRL, conjunctivae normal, anicteric sclerae ENMT: external ear and nose normal, oropharynx normal Neck: trachea midline, no thyromegaly neck nontender Respiratory: normal respiratory effort, lungs clear to auscultation normal percussion; does not use accessory muscles Cardiovascular: Rate/Rhythm: regular rate and regular rhythm Heart Sounds: normal S1 and normal S2; no gallop, no murmur and no cardiac rub Vessels: normal peripheral pulses; no JVD Gastrointestinal (Abdomen): normal bowel sounds, soft, nontender, no hepatosplenomegaly Musculoskeletal: no cyanosis or clubbing, extremities motor strength 5/5 Spine: thoracic spine normal to inspection and lumbar spine normal to inspection; no cervical spinal tenderness Skin: no rashes, warm and dry normal turgor; no lesions Neurologic: patellar DTR's 2+ bilat, sensation intact no focal motor defici ts Psychiatric: A+Ox3, euthymic affect Orientation: cooperative Lymphatic: no cervical or axillary lymphadenopathy no inguinal lymphadenopathy Results & Data Vital Signs (Past 12 Hours) Vital Signs Temp Pulse Pulse Resp BP BP Pulse Ox 02/04/19 09:03 104 H 02/04/19 08:10 37.3 C 104 H 20 106/62 95 02/04/19 05:58 106 H 94/56 L 93 02/04/19 04:42 37.1 C 102 H 20 92/56 L 93 02/04/19 00:02 104 H 92/50 L 02/03/19 23:10 99 H 02/03/19 23:00 36.9 C 103 H 20 92/48 L 91 Laboratory Results Short CBC 02/03/19 02/04/19 Range/Units 11:16 05:37 WBC 23.97 H 26.75 H (4.8-10.8) K/uL Hgb 9.9 L 9.0 L (12.0-16.0) g/dL Hct 32.8 L 29.9 L (37-47) % Plt Count 231 208 (130-400) K/uL BMP 02/03/19 02/04/19 11:16 05:37 Sodium 144 142 Potassium 3.4 L 4.1 D Chloride 109 H 112 H Carbon Dioxide 28 27 BUN 15 18 Creatinine 1.12 1.24 H Glucose 129 H 99 Calcium 8.8 7.6 L Cardiac Enzymes 02/03/19 Range/Units 11:16 Troponin I 0.020 (0-0.045) ng/ml Liver Function 02/03/19 Range/Units 11:16 Total Bilirubin 0.3 (0.2-1) mg/dl AST 17 (15-37) U/L ALT 24 (12-78) U/L Alkaline Phosphatase 82 (45-117) U/L Albumin 2.9 L (3.4-5.0) gm/dl Urine 02/03/19 Range/Units 10:45 Urine Color Dark Yellow Urine Appearance Clear (Clear) Urine pH 5.0 (4.5-7.5) Ur Specific [place] 1.015 (1.000-1.030) Urine Protein Negative (Negative) Urine Glucose (UA) Negative (Negative) Diagnostic Findings Microbiology 02/03/19 10:45 Urine,Indwelling Cath Urine Culture - Preliminary Gram negative bacilli cc: ~ XR chest 1V portable CLINICAL HISTORY: 88 years-old Female presenting with ams. TECHNIQUE: Portable upright AP view of the chest was obtained. COMPARISON: 01/03/2019. FINDINGS: Atherosclerosis of the aortic arch. Cardiac silhouette borderline enlarged. Bandlike opacity in the left lower lung persists. Heterogeneous lung markings. Increased density in the right perihilar region slightly altered in appearance from prior. This may represent overlapping rib shadow and perihilar vasculature. No other new focal opacity. No large effusion or pneumothorax. Degenerative changes of the thoracic spine. Upper abdomen normal. IMPRESSION: 1. Apparent density in the right perihilar region new from prior though this may represent a rib shadow and/or overlapping vasculature. PA and lateral view may better clarify this finding. 2. Persistent left basilar atelectasis or scarring. 3. No other findings to suggest acute cardiopulmonary disease. (1) UTI (urinary tract infection) Hematuria presence: with hematuria Urinary tract infection type: site unspecified Qualified Code(s): N39.0 - Urinary tract infection, site not specified; R31.9 - Hematuria, unspecified
[2019-02-04] MEDS: predniSONE 10 MG TABLET PO SCH (10:43)
[2019-02-04] MEDS: OXYCODONE HCL IR 5 MG TAB (IMMEDIATE RELEASE) PO SCH ×2 (10:43→20:35)
[2019-02-04] MEDS: DULOXETINE HCL 60 MG CAP PO SCH (10:44)
[2019-02-04] MEDS: CLOPIDOGREL BISULFATE 75 MG TAB PO SCH (10:45)
[2019-02-04] MEDS: MIDODRINE HCL 2.5 MG TAB PO SCH ×3 (11:22→17:05)
[2019-02-04] MEDS: LACTATED RINGER'S 1,000 ML IV SCH ×2 (11:22→20:34)
[2019-02-04] MEDS: HYDROXYCHLOROQUINE SULFATE 200 MG TAB PO SCH (11:22)
[2019-02-04] MEDS: FEXOFENADINE 60 MG TAB PO SCH (11:23)
[2019-02-04] MEDS: GABAPENTIN 300 MG CAP PO SCH ×3 (11:23→20:35)
[2019-02-04] MEDS: ATORVASTATIN 40 MG TAB PO SCH (11:23)
[2019-02-04] MEDS: DULOXETINE HCL 30 MG CAP PO SCH (11:23)
[2019-02-04] MEDS: CEROVITE ADV FORMULA TAB PO SCH (11:23)
[2019-02-04] MEDS: ASPIRIN 81 MG ECTAB PO SCH (11:23)
[2019-02-04] MEDS: ASCORBIC ACID 500 MG TAB PO SCH (11:24)
[2019-02-04] MEDS: VITAMIN B COMPLEX TAB PO SCH (11:24)
[2019-02-04] MEDS: CHOLECALCIFEROL 1,000 UNITS TAB PO SCH (11:24)
[2019-02-04] MEDS: CYANOCOBALAMIN 500 MCG TABLET (VITAMIN B-12) PO SCH (11:24)
[2019-02-04] MEDS ORDERED: Nursing to Pharmacy Communication ONE (14:39)
[2019-02-04] MEDS: DICLOFENAC SOD 1% GEL 100 GM TUBE EXT PRN (15:49)
[2019-02-04] MEDS: cefTRIAXone SODIUM 2,000 MG in DEXTROSE 5% 50 ML IV SCH (18:21)
[2019-02-04] MEDS: PRAZOSIN HCL 1 MG CAP PO SCH (20:36)
[2019-02-04] MEDS: QUETIAPINE FUMARATE 200 MG TAB PO SCH (20:37)
[2019-02-04] MEDS: ACETAMINOPHEN 500 MG TAB PO SCH (20:37)
[2019-02-05] MEDS: LACTATED RINGER'S 1,000 ML IV SCH ×3 (04:09→18:00)
[2019-02-05] MEDS: HEPARIN SOD 5,000 UNIT/0.5 ML VIAL SQ SCH ×3 (06:19→21:29)
[2019-02-05] MEDS: DICLOFENAC SOD 1% GEL 100 GM TUBE EXT PRN ×2 (06:19→08:37)
[2019-02-05] MEDS: LEVOTHYROXINE SODIUM 88 MCG TABLET PO SCH (06:19)
[2019-02-05 08:35] LABS: Hematocrit (blood only) 26.3 % (37-47); Hemoglobin 8.1 g/dL (12.0-16.0); Mean Corpuscular Hgb Conc 30.8 g/dL (32-36); Mean Corpuscular Volume 94.3 fL (80-100); Mean Platelet Volume 9.6 fL (7.4-10.4); Platelet Count 168 K/uL (130-400); RDW Standard Deviation 58.7 fL (36.4-46.3); Red Blood Count 2.79 M/uL (4.2-5.4); White Blood Count 12.06 K/uL (4.8-10.8)
[2019-02-05] MEDS: DULOXETINE HCL 30 MG CAP PO SCH (08:37)
[2019-02-05] MEDS: GABAPENTIN 300 MG CAP PO SCH ×3 (08:37→21:26)
[2019-02-05] MEDS: ATORVASTATIN 40 MG TAB PO SCH (08:37)
[2019-02-05] MEDS: ASPIRIN 81 MG ECTAB PO SCH (08:38)
[2019-02-05] MEDS: INSULIN ASPART 100 UNITS/ML 3 ML PEN SC SCH ×4 (08:38→21:31)
[2019-02-05] MEDS: HYDROXYCHLOROQUINE SULFATE 200 MG TAB PO SCH (08:38)
[2019-02-05] MEDS: VITAMIN B COMPLEX TAB PO SCH (08:38)
[2019-02-05] MEDS: FEXOFENADINE 60 MG TAB PO SCH (08:38)
[2019-02-05] MEDS: ASCORBIC ACID 500 MG TAB PO SCH (08:38)
[2019-02-05] MEDS: MIDODRINE HCL 2.5 MG TAB PO SCH ×3 (08:38→18:06)
[2019-02-05] MEDS: OXYCODONE HCL IR 5 MG TAB (IMMEDIATE RELEASE) PO SCH ×2 (08:40→21:34)
[2019-02-05 08:44] LABS: BUN Creatinine Ratio 15.3 (10-20); Calcium 8.2 mg/dl (8.5-10.1); Creatinine Clr Calc Pharmacy 41.1 ml/min; Est GFR (African American) 63.7; Est GFR (Non-African American) 54.9; Potassium 3.7 mmol/L (3.5-5.1)
[2019-02-05] MEDS: DULOXETINE HCL 60 MG CAP PO SCH (08:54)
[2019-02-05] MEDS: CHOLECALCIFEROL 1,000 UNITS TAB PO SCH (08:54)
[2019-02-05] MEDS: CLOPIDOGREL BISULFATE 75 MG TAB PO SCH (08:54)
[2019-02-05] MEDS: CEROVITE ADV FORMULA TAB PO SCH (08:54)
[2019-02-05] MEDS: CYANOCOBALAMIN 500 MCG TABLET (VITAMIN B-12) PO SCH (08:54)
[2019-02-05] MEDS: predniSONE 10 MG TABLET PO SCH (08:55)
[2019-02-05 14:59] LABS: Base Excess VBG 0.3 mEq/L; Oxygen Saturation VBG 66.1 %; pH VBG 7.31 (7.36-7.41)
[2019-02-05] MEDS: cefTRIAXone SODIUM 2,000 MG in DEXTROSE 5% 50 ML IV SCH (18:00)
[2019-02-05] MEDS: PRAZOSIN HCL 1 MG CAP PO SCH (21:26)
[2019-02-05] MEDS: QUETIAPINE FUMARATE 200 MG TAB PO SCH (21:29)
--- NOTE | 2019-02-05 21:30 | Hospitalist Progress Note ---
Date of Service February 05, 2019 Assessment & Plan (1) Altered mental status: Likely related to UTI, hx of recurrent Similar sx with UTI in the past Urine and blood cx pending Started on zosyn in the ED, last cx with R to amp/sulbactram--switch to ceftriaxone which was noted as sensitive Elevated WBC: improved on 02/05 Will keep current antibiotic. Mental status improved on 02/04 but is waxing and waning. 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 Ordered VBG which did not show signifcant high CO2. will monitor. Follows with urology if needed ID consulted Flu neg CXR neg for PNA CT head neg for acute (2) Prediabetes: SSI PRN (3) Anemia: Hx of recent iron transfusions (4) Recurrent UTI: Alternates between 3 abx [id number] Currently on doxy, will hold given above (5) Chronic respiratory failure: Chronic O2 use (6) Mood disorder: continue home meds (7) Neuropathy: continue home meds (8) SLE (systemic lupus erythematosus): continue home meds (9) Rheumatoid arthritis: continue home meds (10) Hypothyroid: continue home meds (11) Depression: continue home meds (12) Hyperlipidemia: continue home meds (13) Peripheral artery disease: Aspirin/plavix (14) DVT prophylaxis: Heparin for DVT proph Spent 35 minutes in management of patient. Subjective 88 yo female seen in afternoon reports feeling somewhat confused. Does not recall the day of the week, nor wy she is in the hospital. D/W nurse, she was awake alert and oriented in the AM. but at 1pm she became drowsy. Awakens with bverbal stimuli, but wants to sleep Review of Systems Review of Systems: Unobtainable due to reduced consciousness Physical Exam Physical Exam: Constitutional: WD/WN, vitals as above Eyes: normal visual gaston by confrontation and + anicteric sclerae Neck: normal visual inspection and trachea midline Respiratory: normal respiratory effort, lungs clear to auscultation Cardiovascular: Rate/Rhythm: regular rate and regular rhythm Gastrointestinal (Abdomen): Inspection/Auscultation: abdomen not distended Percussion/Palpation: abdomen soft; abdomen nontender; colostomy bag is noted. Musculoskeletal: Head/Neck/Chest: normocephalic and head atraumatic negative for edema, peripheral pulses intact Skin: no rashes, warm and dry Neurologic: awake; not confused Speech / Cognition: normal speech Psychiatric: Orientation: alert, oriented to person. She is not lethargic. Cooperative Eye Contact: good eye contact Speech: normal rate/rhythm/volume of speech Results & Data Vital Signs (Past 12 Hours) Vital Signs Temp Pulse Pulse Resp BP BP Pulse Ox 02/05/19 20:00 36.7 C 89 20 113/63 99 02/05/19 15:54 86 02/05/19 15:08 36.6 C 90 18 107/66 98 02/05/19 14:39 02/05/19 11:34 100 H 18 118/59 L 99 Pulse Ox 02/05/19 20:00 02/05/19 15:54 02/05/19 15:08 02/05/19 14:39 99 02/05/19 11:34 (1) Anemia Anemia type: unspecified type Qualified Code(s): D64.9 - Anemia, unspecified (2) Altered mental status Altered mental status type: unspecified Qualified Code(s): R41.82 - Altered mental status, unspecified
[2019-02-05] MEDS: ACETAMINOPHEN 500 MG TAB PO SCH (21:34)
[2019-02-06] MEDS: LACTATED RINGER'S 1,000 ML IV SCH ×4 (02:00→23:52)
[2019-02-06] MEDS: HEPARIN SOD 5,000 UNIT/0.5 ML VIAL SQ SCH ×3 (05:55→21:10)
[2019-02-06] MEDS: LEVOTHYROXINE SODIUM 88 MCG TABLET PO SCH (05:56)
[2019-02-06] MEDS: DULOXETINE HCL 30 MG CAP PO SCH (08:35)
[2019-02-06] MEDS: CYANOCOBALAMIN 500 MCG TABLET (VITAMIN B-12) PO SCH (08:35)
[2019-02-06] MEDS: ATORVASTATIN 40 MG TAB PO SCH (08:35)
[2019-02-06] MEDS: DULOXETINE HCL 60 MG CAP PO SCH (08:35)
[2019-02-06] MEDS: GABAPENTIN 300 MG CAP PO SCH ×3 (08:35→21:05)
[2019-02-06] MEDS: predniSONE 10 MG TABLET PO SCH (08:35)
[2019-02-06] MEDS: ASCORBIC ACID 500 MG TAB PO SCH (08:35)
[2019-02-06] MEDS: FEXOFENADINE 60 MG TAB PO SCH (08:35)
[2019-02-06] MEDS: CEROVITE ADV FORMULA TAB PO SCH (08:35)
[2019-02-06] MEDS: CLOPIDOGREL BISULFATE 75 MG TAB PO SCH (08:35)
[2019-02-06] MEDS: HYDROXYCHLOROQUINE SULFATE 200 MG TAB PO SCH (08:35)
[2019-02-06] MEDS: VITAMIN B COMPLEX TAB PO SCH (08:35)
[2019-02-06] MEDS: ASPIRIN 81 MG ECTAB PO SCH (08:35)
[2019-02-06] MEDS: MIDODRINE HCL 2.5 MG TAB PO SCH ×3 (08:35→16:43)
[2019-02-06] MEDS: CHOLECALCIFEROL 1,000 UNITS TAB PO SCH (08:35)
[2019-02-06] MEDS: OXYCODONE HCL IR 5 MG TAB (IMMEDIATE RELEASE) PO SCH ×2 (08:36→21:06)
[2019-02-06] MEDS: INSULIN ASPART 100 UNITS/ML 3 ML PEN SC SCH ×4 (08:36→21:09)
[2019-02-06] MEDS: IMIPENEM/CILASTATIN SODIUM 300 MG in DEXTROSE 5% 100 ML IV SCH ×2 (13:55→21:01)
--- NOTE | 2019-02-06 14:19 | Hospitalist Progress Note ---
Date of Service February 06, 2019 Assessment & Plan (1) Recurrent UTI: Alternates between 3 abx [id number], but still presented with UTI. Was on doxy on this admission. Urine cx from 02/03 growing Enterobacter cloacae. - Switched from ceftriaxone to imipenem per Dr. Wilson on 02/06 - Follow up with ID (2) Sepsis: Sepsis due to UTI, POA, with associated metabolic encephalopathy (3) Anemia: Hx of recent iron transfusions. - Baseline hgb ~10. - On 02/06, hgb was 8.1 and down from 9.0 the day before. (4) Prediabetes: SSI PRN (5) Chronic respiratory failure: Unknown cause, but on chronic O2. - Continue at home level; no shortness of breath or other acute concerns. (6) Mood disorder: Continue home meds (7) Neuropathy: Continue home meds (8) SLE (systemic lupus erythematosus): Continue home meds (9) Rheumatoid arthritis: continue home meds (10) Hypothyroid: TSH was 1.8 in 12/2018. No signs/symptoms of hypo-/hyperthyroidism. - Continue home Synthroid 88 mcg (11) Depression: continue home meds (12) Peripheral artery disease: Continue aspirin & Plavix (13) DVT prophylaxis: Heparin for DVT prophylaxis Subjective Feeling well this morning. No focal pain. No shortness of breath. Reports no fevers/chills, chest pain, shortness of breath, abdominal pain, nausea, or vomiting. Review of Systems Constitutional: + fatigue; no chills, no sweats and no malaise Neurologic: + confusion (on day of admission); no gait abnormality Physical Exam Constitutional: WD/WN, vitals as above Eyes: normal visual gaston by confrontation and + anicteric sclerae Neck: normal visual inspection and trachea midline Respiratory: normal respiratory effort, lungs clear to auscultation Cardiovascular: Rate/Rhythm: regular rate and regular rhythm Gastrointestinal (Abdomen): Inspection/Auscultation: abdomen not distended Percussion/Palpation: abdomen soft; abdomen nontender Musculoskeletal: Head/Neck/Chest: normocephalic and head atraumatic Skin: no rashes, warm and dry Neurologic: awake; not confused Speech / Cognition: normal speech Psychiatric: Orientation: alert, oriented to person and cooperative Eye Contact: good eye contact Speech: normal rate/rhythm/volume of speech Results & Data Vital Signs (Past 12 Hours) Vital Signs Temp Pulse Pulse Resp BP BP Pulse Ox 02/06/19 12:07 36.6 C 72 20 133/59 L 98 02/06/19 09:00 98 H 02/06/19 07:57 36.9 C 89 18 131/70 92 02/06/19 04:00 36.3 C L 78 18 116/72 100 (1) Anemia Anemia type: unspecified type Qualified Code(s): D64.9 - Anemia, unspecified (2) Sepsis Sepsis type: sepsis due to unspecified organism Qualified Code(s): A41.9 - Sepsis, unspecified organism
--- NOTE | 2019-02-06 15:30 | Infectious Disease Progress Nt ---
Date of Service February 06, 2019 Assessment & Plan (1) UTI (urinary tract infection): 88-year-old female with recurrent urinary tract infection associated with encephalopathy, with culture positive for resistant Enterobacter. Patient will be treated with imipenem for at least several more days. Will follow. 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 Urine has now grown a resistant Enterobacter, resistant to ceftriaxone. I have changed her now to imipenem. Remains afebrile. Feels better, offers no new complaints. Review of Systems Review of Systems: All systems reviewed & are unremarkable except as noted in HPI & below Physical Exam Constitutional: WD/WN, vitals as above comfortable; no acute distress Eyes: PERRL, conjunctivae normal, anicteric sclerae ENMT: external ear and nose normal, oropharynx normal Neck: trachea midline, no thyromegaly neck nontender Respiratory: normal respiratory effort, lungs clear to auscultation normal percussion; does not use accessory muscles Cardiovascular: Rate/Rhythm: regular rate and regular rhythm Heart Sounds: normal S1 and normal S2; no gallop, no murmur and no cardiac rub Vessels: normal peripheral pulses; no JVD Gastrointestinal (Abdomen): normal bowel sounds, soft, nontender, no hepatosplenomegaly Musculoskeletal: no cyanosis or clubbing, extremities motor strength 5/5 Spine: thoracic spine normal to inspection and lumbar spine normal to insp ection; no cervical spinal tenderness Skin: no rashes, warm and dry normal turgor; no lesions Neurologic: patellar DTR's 2+ bilat, sensation intact no focal motor deficits Psychiatric: A+Ox3, euthymic affect Orientation: cooperative Lymphatic: no cervical or axillary lymphadenopathy no inguinal lymphadenopathy Results & Data Vital Signs (Past 12 Hours) Vital Signs Temp Pulse Pulse Resp BP BP Pulse Ox 02/06/19 12:07 36.6 C 72 20 133/59 L 98 02/06/19 09:00 98 H 02/06/19 07:57 36.9 C 89 18 131/70 92 02/06/19 04:00 36.3 C L 78 18 116/72 100 Laboratory Results Laboratory Results - last 48 hr 02/04/19 02/04/19 02/05/19 16:40 20:22 07:38 WBC RBC Hgb Hct MCV MCH MCHC RDW Std Deviation RDW Coeff of Omar Plt Count MPV VBG pH VBG pCO2 VBG pO2 VBG HCO3 VBG O2 Saturation VBG Base Excess Barometric Pressure Sodium Potassium Chloride Carbon Dioxide Anion Gap BUN Creatinine Est Cr Clr Drug Dosing Est GFR ( Amer) Est GFR (Non-Af Amer) BUN/Creatinine Ratio Glucose POC Glucose 139 H 130 H 143 H Calcium 02/05/19 02/05/19 02/05/19 07:55 07:55 11:37 WBC 12.06 H RBC 2.79 L Hgb 8.1 L Hct 26.3 L MCV 94.3 MCH 29.0 MCHC 30.8 L RDW Std Deviation 58.7 H RDW Coeff of Omar 17.0 H Plt Count 168 MPV 9.6 VBG pH VBG pCO2 VBG pO2 VBG HCO3 VBG O2 Saturation VBG Base Excess Barometric Pressure Sodium 144 Potassium 3.7 Chloride 111 H Carbon Dioxide 27 Anion Gap 5.0 BUN 14 Creatinine 0.94 D Est Cr Clr Drug Dosing 41.1 Est GFR ( Amer) 63.7 Est GFR (Non-Af Amer) 54.9 BUN/Creatinine Ratio 15.3 Glucose 121 H POC Glucose 125 H Calcium 8.2 L 02/05/19 02/05/19 02/05/19 14:50 16:39 21:20 WBC RBC Hgb Hct MCV MCH MCHC RDW Std Deviation RDW Coeff of Omar Plt Count MPV VBG pH 7.31 L VBG pCO2 55 H VBG pO2 37 VBG HCO3 27 VBG O2 Saturation 66.1 VBG Base Excess 0.3 Barometric Pressure 732.8 Sodium Potassium Chloride Carbon Dioxide Anion Gap BUN Creatinine Est Cr Clr Drug Dosing Est GFR ( Amer) Est GFR (Non-Af Amer) BUN/Creatinine Ratio Glucose POC Glucose 165 H 193 H Calcium 02/06/19 02/06/19 07:52 11:42 WBC RBC Hgb Hct MCV MCH MCHC RDW Std Deviation RDW Coeff of Omar Plt Count MPV VBG pH VBG pCO2 VBG pO2 VBG HCO3 VBG O2 Saturation VBG Base Excess Barometric Pressure Sodium Potassium Chloride Carbon Dioxide Anion Gap BUN Creatinine Est Cr Clr Drug Dosing Est GFR ( Amer) Est GFR (Non-Af Amer) BUN/Creatinine Ratio Glucose POC Glucose 90 134 H Calcium Diagnostic Findings Microbiology 02/03/19 10:45 Urine,Indwelling Cath Urine Culture - Final Enterobacter cloacae 02/03/19 11:38 Blood Blood Culture - Preliminary No growth to date. 02/03/19 11:16 Blood Blood Culture - Preliminary No growth to date. (1) UTI (urinary tract infection) Hematuria presence: with hematuria Urinary tract infection type: site unspe cified Qualified Code(s): N39.0 - Urinary tract infection, site not specified; R31.9 - Hematuria, unspecified
[2019-02-06] MEDS: ACETAMINOPHEN 500 MG TAB PO SCH (21:06)
[2019-02-06] MEDS: PRAZOSIN HCL 1 MG CAP PO SCH (21:13)
[2019-02-06] MEDS: QUETIAPINE FUMARATE 200 MG TAB PO SCH (21:13)
--- OUTSIDE RECORDS SUMMARY | 2019-02-06 22:05 | External Medical Summary | Continuity of Care Document ---
:1930 Author Name Andrew Cullen, Provider Address Unavailable Unavailable , Care Team Providers Name Role Phone Parmjit Cullen, Nidhi Unavailable [email or web address] Paolo Cullen, Sarah Unavailable [email or web address] Yunier Buenrostro DO Unavailable [email or web address] Katie Cullen, Jose Wilson Unavailable [email or web address] PARMJIT Cullen, S Unavailable Unavailable Ritter NEWMAN Unavailable [email or web address] Unavailable Unavailable Unavailable Problems Hiatal hernia (553.3) (K44.9) 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, 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) Iron deficiency anemia (280.9) (D50.9) DELVIS positive (795.79) (R76.8) Sinus tachycardia (427.89) (R00.0) Abnormal finding on lung imaging (793.19) (R91.8) Solitary pulmonary nodule (793.11) (R91.1) Difficulty reading due to visual problem (368.9) (H53.9) Early satiety (780.94) (R68.81) Nonspecific immunological findings (795.79) (R89.4) Cyclic citrullinated peptide (CCP) antibody positive (796.9) (R79.89) Medicare annual wellness visit, subsequent (V70.0) (Z00.00) Dilated bile duct (576.8) (K83.8) Disorder of connective tissue (710.9) (M35.9) Peripheral edema (782.3) (R60.9) Fibromyalgia (729.1) (M79.7) Joint pain, knee (719.46) (M25.569) Chronic reflux esophagitis (530.11) (K21.0) Allergic rhinitis (477.9) (J30.9) 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) Asthma (493.90) (J45.909) Hearing loss (389.9) (H91.90) Impaired mobility and ADLs (799.89) (Z74.09) Ostomy nurse consultation (V65.8) (Z71.89) Gross hematuria (599.71) (R31.0) Dysphagia (787.20) (R13.10) Incomplete bladder emptying (788.21) (R33.9) Constipation (564.00) (K59.00) Hypertension (401.9) (I10) 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) Esophageal spasm (530.5) (K22.4) Hypercholesterolemia (272.0) (E78.00) DM 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 (250.00) (E11.9) 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9) Long-term use of hydroxychloroquine (V58.69) (Z79.899) 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 (714.0) (M06.00) Rheumatoid factor positive with cyclic c itrullinated peptide (CCP) antibody negative (795.79) (R76.8) assisted (current) use of systemic steroids (V58.65) (Z79.5 2) Oxygen dependent (V46.2) (Z99.81) Hospital discharge follow-up (V67.59) (Z09) Infection due to Enterobacter cloacae (041.85) (A49.8) Hypothyroidism (244.9) (E03.9) Arteriosclerosis of coronary artery (414.00) (I25.10) Anemia of chronic disease (285.29) (D63.8) Malaise and fatigue (780.79) (R53.81) Weakness (780.79) (R53.1) History of TIA (transient ischemic attack) (V12.54) (Z86.73) Leukocytosis (288.60) (D72.829) Chronic cystitis (595.2) (N30.20) Depression with anxiety (300.4) (F41.8) Fatigue (780.79) (R53.83) Pneumonia (486) (J18.9) Tension headache (307.81) (G44.209) Polyarthritis (716.50) (M13.0) Urinary retention (788.20) (R33.9) Current use of steroid medication (V58.65) (Z79.52) Recurrent UTI (599.0) (N39.0) Skin lesion of face (709.9) (L98.9) Functional Status Hearing loss Allergies and Adverse Reactions Celecoxib CAPS (Allergy) Cipro TABS (Allergy) Reaction: Hives Macrobid CAPS (Adverse Event) Reaction: Other Latex (Allergy) Reaction: Rash Milk (Allergy) Other (Allergy) Shellfish (Allergy) Medications Vitamin D3 2000 UNIT Oral Capsule; Take one capsule daily. Start: 03-Nov-2016 Quantity: 30 Refills: 3 Hydroxychloroquine Sulfate 200 MG Oral T ablet; TAKE 1 AND1/2 TABLET BY MOUTH IN THE MORNING WITH FOOD Sbuhash Gardner Start: 31-Jul-2016 Quantity: 45 Refills: 5 Midodrine HCl - 5 MG Oral Tablet; take 1 tablet by kelley velazquez three times a day Subhash Gardner Start: 02-Jan-2019 Quantity: 90 Refills: 1 oxyCODONE HCl - 10 MG Oral Tablet; Take 1 tablet twice daily Subhash Gardner Quantity: 60 Refills: 0 Gabapentin 300 MG Oral Capsule; TAKE 1 CAPSULE 3 TIMES DAILY. Subhash Gardner Start: 02-May-2018 Quantity: 90 Refills: 0 B Complex TABS; TAKE 1 TABLET DAILY. Refills: 0 QUEtiapine Fumarate 200 MG Oral Tablet; TAKE 1 TABLET AT BEDTIME. Subhash Gardner Start: 23-Nov-2016 Quantity: 30 Refills: 5 Prazosin HCl - 1 MG Oral Capsule; TAKE 1 CAPSULE Bedtime PRN Suhbash Gardner Start: 07-Sep-2017 Quantity: 30 Refills: 2 Ocuvite Adult Formula Oral Capsule; TAKE DIRECTED. Start: 22-Nov-2017 Refills: 0 Atorvastatin Calcium 40 MG Oral Tablet; TAKE 1 TABLET DAILY FOR CHOLESTEROL Subhash Gardner Start: 28-Nov-2018 Quantity: 30 Refills: 5 Clopidogrel Bisulfate 75 MG Oral Tablet; Take 1 tablet daily Subhash Gardner Start: 19-Sep-2018 Quantity: 1 30 Tablet Bottle Refills: 1 AZO Urinary Pain Relief 95 MG Oral Tablet; TAKE 1 TABLET 2-3 TIMES DAILY. Start: 09-Jun-2018 Refills: 0 Vitamin B-12 1000 MCG Oral Tablet; TAKE 1 TABLET DAILY DI RECTED. Refills: 0 MiraLax Oral Powder Refills: 0 DULoxetine HCl - 60 MG Oral Capsule Cecile yed Release Particles; TAKE 1 CAPSULE DAILY. Subhash Gardner Start: 19-Dec-2018 Quantity: 90 Refills: 3 Lidocaine 5 % External Ointment; APPLY T HIN LAYER TO LOWER BACK UP TO 4 TIMES DAILY NEEDED FOR PAIN. Subhash Gardner Start: 18-May-2018 Quantity: 1 50 GM Tube Refills: 3 Cora TABS; TAKE 1 TABLET Daily PRN Refills: 0 Nitroglycerin 0.4 MG Sublingual Tablet S ublingual; PLACE 1 TABLET UNDER THE TONGUE EVERY 5 MINUTES FOR UP TO 3 DOSES NEEDED FOR CHEST PAIN.CALL 911 IF PAIN PERSISTS. Subhash Gardner 100 Tablet Bottle Quantity: 1 Refills: 2 Alix Microlet Lancets; tests once daily DO Yunier Buenrostro Start: 18-Feb-2018 Quantity: 100 Refills: 6 Alix Contour Test STRP; TEST ONCE DAILY. DO Yunier Buenrostro Start: 18-Feb-2018 Quantity: 2 50 Strip Box Refills: 6 Fluticasone Propionate 50 MCG/ACT Nasal Suspension; US E DIRECTED. Subhash Gardner Start: 14-Sep-2017 Refills: 0 9.9 ML Bottle Aspirin EC 81 MG Oral Tablet Delayed Release; TAKE 1 TABLET DAILY DIRECTED. Start: 19-May-2017 Refills: 0 DULoxetine HCl - 30 MG Oral Capsule Cecile yed Release Particles; TAKE 1 CAPSULE Daily along with Duloxetine 60 mg. Subhash Gardner Start: 02-Nov-2018 Quantity: 90 Refills: 1 Ondansetron 8 MG Oral Tablet Disintegrat ing; Take 1 on the tongue Q 6 hours prn nausea Subhash Gardner Start: 15-Jun-2014 Quantity: 30 Refills: 2 Oxygen; 2-3 L via nasal cannula Subhash Gardner Start: 2 13-Oct-2018 Quantity: 1 Refills: 0 Flagyl 500 MG Oral Tablet; take 1 tablet by mouth three time s a day Start: 05-Dec-2018 Refills: 0 Doxycycline Hyclate 100 MG Oral Capsule; TAKE 1 CAPSUL E BY MOUTH DAILY Subhash Wilson Start: 05-Dec-2018 Quantity: 30 Refills: 3 Amoxicillin 500 MG Oral Capsule; TAKE ONE CAPSULE EVERY DAY Subhash Wilson Start: 05-Dec-2018 Quantity: 30 Refills: 3 Cefdinir 300 MG Oral Capsule; 1 tablet d aily for 14 days, then rotate to next antibiotic Subhash Wilson Start: 05-Dec-2018 Quantity: 30 Refills: 3 Vitamin C 500 MG Oral Tablet; TAKE 1 TABLET DAILY. Refills: 0 Voltaren 1 % Transdermal Gel; APPLY 4 GM OF GEL TO AFFECTED AREA 4 TIMES DAILY. DO NOT APPLY MORE THAN 16 GM DAILY TO ANY ONE AFFECTED JOINT. Subhash Gardner Start: 11-Aug-2013 Quantity: 3 100 GM Tube (5 Tubes ) Refills: 3 Cefdinir 300 MG Oral Capsule; TAKE 1 CAPSULE TWICE DAILY. Start: 28-Nov-2018 Refills: 0 30 Capsule Bottle Dexilant 60 MG Oral Capsule Delayed Rele ase; TAKE 1 CAPSULE DAILY EVERY MORNING BEFORE BREAKFAST. Subhash Gardner Start: 05-Nov-2017 Quantity: 90 Refills: 1 predniSONE 10 MG Oral Tablet; TAKE 1 TAB LET EVERY MORNING WITH 2.5 MG FOR TOTAL OF 12.5 MG Subhash Boone Start: 31-Jul-2016 Quantity: 90 Refills: 1 Synthroid 88 MCG Oral Tablet; Take 1 tablet daily Robyn Gardner Start: 19-Dec-2018 Quantity: 90 Refills: 3 Procedures History of Cholecystectomy Laparoscopic Status: Completed History of Total Abdominal Hysterectomy With Removal Of Both Status: Completed Ovaries History of Total Hip Replacement Status: Completed History of Transsphenoidal Tumor Removal Status: Completed History of Influenza vaccine needed Stat us: Completed History of Colon Surgery Status: Complet ed Immunizations Td On: 2006 Zoster (Zostavax) On: 2007 Pneumococcal polysaccharide vaccine, 23 valent On: 2008 Influenza On: 13-Jul-2011 12:12 Lot #: [id number], [employer] Influenza (Whole) On: 11-Jul-2012 15:23 Lot #: [id number], [employer] PPD On: 21-Mar-2013 15:41 Lot #: [id number], [employer] Influenza On: 18-Jul-2013 0:00 Lot #: [id number], [employer]STE[employer] Influenza On: 18-Jul-2013 17:03 Lot #: [id number], [employer] Influenza On: 08-Jun-2015 Fluzone High-Dose Intramuscular Suspension On: 08-Sep-2016 1 1:40 Lot #: [id number], [employer] Fluzone High-Dose Intramuscular Suspension On: 06-Jul-2017 1 2:07 Lot #: [id number], [employer] PA[employer] Fluzone High-Dose Intramuscular Suspension On: 11-Jul-2018 11 :15 Lot #: [id number], [employer] Family History Grandmother Family history of Breast Cancer (V16.3) Status: Active Family history of Uterine Cancer (V16.49) Status: Active Mother Family history of Alzheimer Disease Status: Active Father Family history of Alcoholic Dilated Cardiomyopathy Status: A ctive natural son Family history of Colon Cancer Status: Active Family history of Colon cancer (153.9) (C18.9) Status: Activ e Unknown Family Member Family history of Colon Cancer Status: Active Comments: Family History No family history of bleeding disorder Status: Active C omments: Family History (V49.89) (Z78.9) natural daughter Family history of malignant neoplasm of breast (V16.3) (Z80. 3) Status: Active Social History - Smoking Status Former smoker Plan of Treatment Planned Encounters Appointment; Nidhi Gardner M.D. Start: 23-Mar-2019 11:40 Re quest Planned Observations Planned Goals not documented Results X-Ray Chest 1 View Portable (Pending) Laboratory: [facility] [address] [facility] 03-Feb-2019 10:59 X-Ray Chest 1 VW Portable (CXR1P) [place], [place] [phone] XRay Report Renny t: SAIRA MCGARRY Admit Date: 02/03 MR#: [id number] Address1: [address] [place] [address] Acct ID:[id number] Address 2: Date: 1930 [facility] Zip: [place], [place] [address] Age: 88 Location : ED Sex: F Room/B ed: Att Phy: Diagn osis: ILLNESS Tracy Phy: Nidhi Garcia MD Service Date: 02/03/19 Fam Phy: Interpreting Phy: Teddy Lopez MD Admit Phy: Ordering Phy: Enmanuel Montes De Oca D.O. cc: XR chest 1V portable CLINICAL HISTORY: 88 years-old Female presenting with ams. TECHNIQUE: Portable upright AP view of the chest wa s obtained. COMPARISON: 01/03/2019. FINDINGS: Atherosclerosis of the aorti c arch. Cardiac silhouette borderline enla rged. Bandlike opacity in theleft lower lung persists. Heterogeneous lung markings. Increased density in the right perihilar region slightly altered in appearance fr om prior. This may represent overlapping ri b shadow and perihilar vasculature. No oth er new focal opacity. No large effusion or pneumothorax. Degenerative changes of th e thoracic spine. Upper abdomen normal. IMPRESSION: 1. Apparent density in th e right perihilar region new from prior th ough this may represent a rib shadow and/or overlapping vasculature. PA and lateral view may better clarify this finding. 2. Persistent left basilar atelectasis or scarring. 3. No other findings to suggest acute cardiopulmonary disease. Electronically signed by: Teddy scruggs M.D. 02/03/2019 11:01 AM Dicta emily: 02/03/19 1059 Transcribed: 1059 CT Head w/o Contrast (Pending) Laboratory: [facility] [address] [facility] 03-Feb-2019 12:11 CT HEAD WITHOUT CONTRAST [facility], [place] CT Scan Report Patient: SAIRA MCGARRY Admit Date: 02/03 MR#: [id number] Address1: [address] [place] [address] Acct ID:[id number] Address 2: Date: 1930 [facility] Zip: [place], [place] [address] Age: 88 Location : ED Sex: F Room/B ed: Att Phy: Diagn osis: ILLNESS Tracy Phy: Nidhi Garcia MD Service Date: 02/03/19 Fam Phy: Interpreting Phy: Teddy Lopez MD Admit Phy: Ordering Phy: Enmanuel Montes De Oca D.O. cc: CT head/brain wo con CLINICAL HISTORY: 88 years-old Female presenting with ams. TECHNIQUE: Multidetector CT imaging of the head was performed without the use of intravenous contrast. IV contrast: None. One or more dose lowering techniques were used consistent with the principles of ALARA (as low as reaso nably achievable), including automatic exposur e control, mA or kV adjustment to individu al patient size, and/or use of iterative reconstruction. COMPARISON: CT head from 11/23/2018 and MR brain from 11/23/2018. CT DOSE (mGy.cm): The estimated cumulati ve dose is 537.48 mGy.cm. 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 Proportional ventricular and sulcal prominence, likely age-related parenchym al volume loss. No hemorrhage. Periventricu lar and subcortical white matter hypoattenua tion, nonspecific but likely indicative of chr onic small vessel ischemic change. No acute territorial infarct. No mass effect or midline shift. No extra-axial fluid collection. Paranasal sinuses and mastoi d air cells clear. Calvarium intact. Absent na tive lenses. IMPRESSION: 1. Chronic s mall vessel ischemic change. No acute intracr anial abnormality. Electronically signed by: Teddy Lopez M.D. 019 12:16 PM Dictated: 02/03/19 121 1 Transcribed: 02/03/19 1211 Vital Signs 09-Jan-2019 10:11 Systolic 118 mm[Hg] Comments: Location: LUE; Position: Sitting Diastolic 50 mm[Hg] Comments: Location: LUE; Position: Sitting Weight 153.7 lb BMI Calculated 27.23 kg/m2 BSA Calculated 1.73 m2 Heart Rate 107 /min O2 Saturation 96 % Comments: Source: Height 63 in Respiration 16 /min Comments: Quality: N ormal Encounters Appointment; Jose Wilson M.D. 03-Feb-2019 11:45 Encounter Diagnosis: Problem not documented Appointment; Yunier Buenrostro DO 09-Jan-2019 10:00 Encounter Diagnosis: Problem not documented Appointment; Jose Wilson M.D. 02-Jan-2019 11:00 Encounter Diagnosis: Problem not documented Appointment; Nidhi Gardner M.D. 23-Dec-2018 10:20 Encounter Diagnosis: Problem not documented Appointment; Basil Coronel II, DO 12-Dec-2018 11:40 Encounter Diagnosis: Problem not documented Appointment; Urology, Room 7 12-Dec-2018 11:30 Encounter Diagnosis: Problem not documented Appointment; Nohemy Thayer CRNP 07-Dec-2018 15:20 Encounter Diagnosis: Problem not documented Appointment; Nidhi Gardner M.D. 06-Dec-2018 10:20 Encounter Diagnosis: Problem not documented Appointment; Jose Wilson M.D. 05-Dec-2018 10:30 Encounter Diagnosis: Problem not documented Appointment; Jose Wilson M.D. 18-Nov-2018 10:15 Encounter Diagnosis: Problem not documented Appointment; Yunier Buenrostro DO 17-Nov-2018 14:00 Encounter Diagnosis: Problem not documented Appointment; Sarah Boone M.D. 26-Oct-2018 11:40 Encounter Diagnosis: Problem not documented Appointment; Marjan Reveles PA-C 21-Oct-2018 10:00 Encounter Diagnosis: Problem not documented Appointment; Nidhi Gardner M.D. 20-Oct-2018 10:20 Encounter Diagnosis: Problem not documented Appointment; Basil Coronel II, DO 23-Sep-2018 9:40 Encounter Diagnosis: Problem not documented Appointment; Nidhi Gardner M.D. 19-Sep-2018 10:20 Encounter Diagnosis: Problem not documented Appointment; Nidhi Gardner M.D. 11-Jul-2018 10:20 Encounter Diagnosis: Problem not documented Appointment; Nidhi Gardner M.D. 07-Jul-2018 15:00 Encounter Diagnosis: Problem not documented Appointment; Rosa Piña CRNP 29-Jun-2018 15:20 Encounter Diagnosis: Problem not documented Appointment; Sarah Boone M.D. 22-Jun-2018 11:20 Encounter Diagnosis: Problem not documented Appointment; [facility] 01-Jun-2018 15: 20 Encounter Diagnosis: Problem not documented Appointment; [facility] 31-May-2018 15: 20 Encounter Diagnosis: Problem not documented Appointment; Nidhi Gardner M.D. 30-May-2018 15:00 Encounter Diagnosis: Problem not documented Appointment; Nidhi Gardner M.D. 28-Apr-2018 10:20 Encounter Diagnosis: Problem not documented Appointment; Sarah Boone M.D. 25-Apr-2018 11:00 Encounter Diagnosis: Problem not documented Appointment; Nidhi Gardner M.D. 19-Apr-2018 11:40 Encounter Diagnosis: Problem not documented Appointment; Noelle Nieto PA-C 05-Apr-2018 14:00 Encounter Diagnosis: Problem not documented Appointment; Stress, Echocardiogram 1 05-Apr-2018 13:00 Encounter Diagnosis: Problem not documented Appointment; Roxie Gillis PA-C 24-Mar-2018 10:40 Encounter Diagnosis: Problem not documented Appointment; Truman Fry Au.D[facility] 24-Mar-2018 10:20 Encounter Diagnosis: Problem not documented Appointment; Noelle Nieto PA-C 23-Mar-2018 15:30 Encounter Diagnosis: Problem not documented Appointment; Jose Wilson M.D. 11-Mar-2018 10:30 Encounter Diagnosis: Problem not documented Appointment; Basil Coronel II, DO 08-Feb-2018 11:00 Encounter Diagnosis: Problem not documented Appointment; Vascular, Studies SC1 01-Feb-2018 9:30 Encounter Diagnosis: Problem not documented Appointment; Nidhi Gardner M.D. 13-Jan-2018 11:40 Encounter Diagnosis: Problem not documented Appointment; Nidhi Gardner M.D. 07-Dec-2017 16:20 Encounter Diagnosis: Problem not documented Appointment; Jose Wilson M.D. 06-Dec-2017 11:30 Encounter Diagnosis: Problem not documented Appointment; Nidhi Gardner M.D. 26-Nov-2017 10:20 Encounter Diagnosis: Problem not documented Appointment; Basil Coronel II, DO 09-Nov-2017 11:00 Encounter Diagnosis: Problem not documented Appointment; Nidhi Gardner M.D. 05-Nov-2017 10:20 Encounter Diagnosis: Problem not documented Appointment; Sarah Boone M.D. 26-Oct-2017 11:00 Encounter Diagnosis: Problem not documented Appointment; Nidhi Gardner M.D. 25-Oct-2017 11:20 Encounter Diagnosis: Problem not documented Appointment; Basil Coronel II, DO 06-Oct-2017 10:40 Encounter Diagnosis: Problem not documented Appointment; Basil Coronel II, DO 30-Sep-2017 13:30 Encounter Diagnosis: Problem not documented Appointment; Basil Coronel II, DO 21-Sep-2017 14:20 Encounter Diagnosis: Problem not documented Appointment; Nidhi Gardner M.D. 14-Sep-2017 10:20 Encounter Diagnosis: Problem not documented Appointment; Yunier Buenrostro DO 06-Sep-2017 16:20 Encounter Diagnosis: Problem not documented Appointment; Basil Coronel II, DO 27-Aug-2017 10:15 Encounter Diagnosis: Problem not documented Appointment; Yunier Buenrostro DO 29-Jul-2017 11:40 Encounter Diagnosis: Problem not documented Appointment; Judy Hurtado CRNP 06-Jul-2017 11:00 Encounter Diagnosis: Problem not documented Appointment; Sarah Boone M.D. 24-Jun-2017 15:20 Encounter Diagnosis: Problem not documented Appointment; Nidhi Gardner M.D. 25-May-2017 10:20 Encounter Diagnosis: Problem not documented Appointment; Sarah Boone M.D. 12-May-2017 10:40 Encounter Diagnosis: Problem not documented Appointment; Nidhi Gardner M.D. 05-Apr-2017 9:20 Encounter Diagnosis: Problem not documented Appointment; Neftali Tong CRNP 19-Mar-2017 10:20 Encounter Diagnosis: Problem not documented Appointment; Sarah Boone M.D. 12-Mar-2017 9:20 Encounter Diagnosis: Problem not documented Appointment; Nidhi Gardner M.D. 18-Feb-2017 10:00 Encounter Diagnosis: Problem not documented Appointment; Wen Toribio CRNP 11-Feb-2017 11:00 Encounter Diagnosis: Problem not documented Appointment; Nidhi Gardner M.D. 23-Mar-2019 11:40 Encounter Diagnosis: Problem not documented"
[2019-02-07] MEDS: IMIPENEM/CILASTATIN SODIUM 300 MG in DEXTROSE 5% 100 ML IV SCH ×4 (01:54→21:21)
[2019-02-07] MEDS ORDERED: POLYETHYLENE (MIRALAX) 17 GM PACK PO STA (04:00)
[2019-02-07] MEDS ORDERED: POLYETHYLENE (MIRALAX) 17 GM PACK ONE (04:51)
[2019-02-07] MEDS: HEPARIN SOD 5,000 UNIT/0.5 ML VIAL SQ SCH ×3 (05:50→21:21)
[2019-02-07] MEDS: LEVOTHYROXINE SODIUM 88 MCG TABLET PO SCH (06:04)
[2019-02-07 06:09] LABS: Hematocrit (blood only) 27.2 % (37-47); Hemoglobin 8.3 g/dL (12.0-16.0); Mean Corpuscular Hgb Conc 30.5 g/dL (32-36); Mean Corpuscular Volume 93.5 fL (80-100); Mean Platelet Volume 9.5 fL (7.4-10.4); Platelet Count 207 K/uL (130-400); RDW Coefficient of Variation 16.5 % (11.5-14.5); RDW Standard Deviation 56.6 fL (36.4-46.3); Red Blood Count 2.91 M/uL (4.2-5.4); White Blood Count 6.79 K/uL (4.8-10.8)
[2019-02-07 06:38] LABS: BUN Creatinine Ratio 10.5 (10-20); Calcium 8.7 mg/dl (8.5-10.1); Creatinine Clr Calc Pharmacy 40.9 ml/min; Est GFR (African American) 62.9; Est GFR (Non-African American) 54.2; Magnesium 1.9 mg/dl (1.8-2.4); Potassium 4.2 mmol/L (3.5-5.1)
--- NOTE | 2019-02-07 07:12 | XRay Report ---
KUB CLINICAL HISTORY: Diminished ostomy output. FINDINGS: An AP, portable, supine abdominal radiograph is correlated with abdominal CT dated 12/13/2018 . An ostomy is noted in the left lower quadrant. No bowel obstruction is identified. No evidence of i ntraperitoneal free air is seen on this supine image. Cholecystectomy clips are noted. There are no a bnormal abdominal calcifications. Phleboliths are noted the pelvis. The skeletal structures are osteo penic. Bilateral hip arthroplasties are in place. IMPRESSION: Nonobstructed abdominal bowel gas pattern. Electronically signed by: Bennett Huertas M.D. 02/07/2019 7:11 AM
[2019-02-07] MEDS: ASPIRIN 81 MG ECTAB PO SCH (08:32)
[2019-02-07] MEDS: DULOXETINE HCL 60 MG CAP PO SCH (08:32)
[2019-02-07] MEDS: MIDODRINE HCL 2.5 MG TAB PO SCH ×3 (08:32→17:59)
[2019-02-07] MEDS: HYDROXYCHLOROQUINE SULFATE 200 MG TAB PO SCH (08:32)
[2019-02-07] MEDS: CEROVITE ADV FORMULA TAB PO SCH (08:32)
[2019-02-07] MEDS: DULOXETINE HCL 30 MG CAP PO SCH (08:32)
[2019-02-07] MEDS: FEXOFENADINE 60 MG TAB PO SCH (08:32)
[2019-02-07] MEDS: ATORVASTATIN 40 MG TAB PO SCH (08:32)
[2019-02-07] MEDS: POLYETHYLENE (MIRALAX) 17 GM PACK PO SCH (08:32)
[2019-02-07] MEDS: CYANOCOBALAMIN 500 MCG TABLET (VITAMIN B-12) PO SCH (08:33)
[2019-02-07] MEDS: ASCORBIC ACID 500 MG TAB PO SCH (08:33)
[2019-02-07] MEDS: DOCUSATE SODIUM/SENNA 50/8.6MG TAB PO SCH (08:33)
[2019-02-07] MEDS: GABAPENTIN 300 MG CAP PO SCH ×3 (08:33→21:22)
[2019-02-07] MEDS: OXYCODONE HCL IR 5 MG TAB (IMMEDIATE RELEASE) PO SCH ×2 (08:33→21:29)
[2019-02-07] MEDS: INSULIN ASPART 100 UNITS/ML 3 ML PEN SC SCH ×4 (08:33→21:52)
[2019-02-07] MEDS: predniSONE 10 MG TABLET PO SCH (08:33)
[2019-02-07] MEDS: VITAMIN B COMPLEX TAB PO SCH (08:33)
[2019-02-07] MEDS: CLOPIDOGREL BISULFATE 75 MG TAB PO SCH (08:33)
[2019-02-07] MEDS: CHOLECALCIFEROL 1,000 UNITS TAB PO SCH (08:33)
--- NOTE | 2019-02-07 13:29 | Hospitalist Progress Note ---
Date of Service February 07, 2019 Assessment & Plan (1) Recurrent UTI: Alternates between 3 abx O6pplci, but still presented with UTI. Was on doxy prior to this admission. Urine cx from 02/03 growing Enterobacter cloacae. - Switched from ceftriaxone to imipenem per Dr. Wilson on 02/06 - ID requests 2-3 days of imipenem, then consider switch to Bactrim (no allergy in inpatient or outpatient records) (2) Sepsis: Sepsis due to UTI, POA, with associated metabolic encephalopathy. - Resovled at this time (3) Anemia: Hx of recent iron transfusions. - Baseline hgb ~10. - On 02/06, hgb was 8.1 and down from 9.0 the day before. - On 02/07, stable at 8.3. (4) Prediabetes: Sliding scale insulin (5) Chronic respiratory failure: Unknown cause, but on chronic O2. - Continue at home level; no shortness of breath or other acute concerns. (6) Neuropathy: Continue home meds (7) SLE (systemic lupus erythematosus): Continue home meds (8) Rheumatoid arthritis: - Continue home meds (9) Hypothyroid: TSH was 1.8 in 12/2018. No signs/symptoms of hypo-/hyperthyroidism. - Continue home Synthroid 88 mcg (10) Depression: No present mood concerns. - Continue home meds (11) Peripheral artery disease: Continue aspirin & Plavix (12) DVT prophylaxis: Heparin for DVT prophylaxis Subjective Feeling tired from being woken up last night. No major issues otherwise. Is upset that her BP was high overnight. Reports no fevers/chills, chest pain, shortness of breath, abdominal pain, nausea, or vomiting. Review of Systems Constitutional: + fatigue; no chills, no sweats and no malaise Neurologic: + confusion (on day of admission); no gait abnormality Physical Exam Constitutional: WD/WN, vitals as above Eyes: normal visual gaston by confrontation and + anicteric sclerae Neck: normal visual inspection and trachea midline Respiratory: normal respiratory effort, lungs clear to auscultation Cardiovascular: Rate/Rhythm: regular rate and regular rhythm Gastrointestinal (Abdomen): Inspection/Auscultation: abdomen not distended Percussion/Palpation: abdomen soft; abdomen nontender Musculoskeletal: Head/Neck/Chest: normocephalic and head atraumatic Skin: no rashes, warm and dry Neurologic: awake; not confused Speech / Cognition: normal speech Psychiatric: Orientation: alert, oriented to person and cooperative Eye Contact: good eye contact Speech: normal rate/rhythm/volume of speech Results & Data Vital Signs (Past 12 Hours) Vital Signs Temp Pulse Pulse Resp BP BP Pulse Ox 02/07/19 12:27 36.4 C L 110 H 20 111/56 L 93 02/07/19 09:00 83 02/07/19 07:36 36.4 C L 86 18 193/84 H 94 02/07/19 04:31 36.6 C 86 18 164/75 H 98 (1) Sepsis Sepsis type: sepsis due to unspecified organism Qualified Code(s): A41.9 - Sepsis, unspecified organism (2) Anemia Anemia type: unspecified type Qualified Code(s): D64.9 - Anemia, unspecified
--- NOTE | 2019-02-07 14:28 | Infectious Disease Progress Nt ---
Date of Service February 07, 2019 Assessment & Plan (1) UTI (urinary tract infection): 88-year-old female with recurrent urinary tract infection associated with encephalopathy, with culture positive for resistant Enterobacter. Patient will be treated with imipenem for at least several more days. Will follow. 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 Urine with a resistant Enterobacter, resistant to ceftriaxone,And patient now on imipenem, tolerating without apparent difficulty. Can give another day or 2 of IV antibiotics. Will follow. Review of Systems Review of Systems: All systems reviewed & are unremarkable except as noted in HPI & below Physical Exam Constitutional: WD/WN, vitals as above comfortable; no acute distress Eyes: PERRL, conjunctivae normal, anicteric sclerae ENMT: external ear and nose normal, oropharynx normal Neck: trachea midline, no thyromegaly neck nontender Respiratory: normal respiratory effort, lungs clear to auscultation normal percussion; does not use accessory muscles Cardiovascular: Rate/Rhythm: regular rate and regular rhythm Heart Sounds: normal S1 and normal S2; no gallop, no murmur and no cardiac rub Vessels: normal peripheral pulses; no JVD Gastrointestinal (Abdomen): normal bowel sounds, soft, nontender, no h epatosplenomegaly Musculoskeletal: no cyanosis or clubbing, extremities motor strength 5/5 Spine: thoracic spine normal to inspection and lumbar spine normal to inspection; no cervical spinal tenderness Skin: no rashes, warm and dry normal turgor; no lesions Neurologic: patellar DTR's 2+ bilat, sensation intact no focal motor deficits Psychiatric: A+Ox3, euthymic affect Orientation: cooperative Lymphatic: no cervical or axillary lymphadenopathy no inguinal lymphadenopathy Results & Data Vital Signs (Past 12 Hours) Vital Signs Temp Pulse Pulse Resp BP BP Pulse Ox 02/07/19 12:27 36.4 C L 110 H 20 111/56 L 93 02/07/19 09:00 83 02/07/19 07:36 36.4 C L 86 18 193/84 H 94 02/07/19 04:31 36.6 C 86 18 164/75 H 98 Laboratory Results Short CBC 02/07/19 Range/Units 05:44 WBC 6.79 (4.8-10.8) K/uL Hgb 8.3 L (12.0-16.0) g/dL Hct 27.2 L (37-47) % Plt Count 207 (130-400) K/uL BMP 02/07/19 05:44 Sodium 145 Potassium 4.2 Chloride 110 H Carbon Dioxide 30 BUN 10 Creatinine 0.95 Glucose 103 H Calcium 8.7 Diagnostic Findings Microbiology 02/03/19 10:45 Urine,Indwelling Cath Urine Culture - Final Enterobacter cloacae 02/03/19 11:38 Blood Blood Culture - Preliminary No growth to date. 02/03/19 11:16 Blood Blood Culture - Preliminary No growth to date. (1) UTI (urinary tract infection) Hematuria presence: with hematuria Urinary tract infection type: site unspecified Qualified Code(s): N39.0 - Urinary tract infection, site not specified; R31.9 - Hematuria, unspecified
[2019-02-07] MEDS: ACETAMINOPHEN 500 MG TAB PO SCH (21:23)
[2019-02-07] MEDS: PRAZOSIN HCL 1 MG CAP PO SCH (21:23)
[2019-02-07] MEDS: QUETIAPINE FUMARATE 200 MG TAB PO SCH (21:23)
[2019-02-08] MEDS: IMIPENEM/CILASTATIN SODIUM 300 MG in DEXTROSE 5% 100 ML IV SCH ×3 (01:34→14:24)
[2019-02-08] MEDS: LEVOTHYROXINE SODIUM 88 MCG TABLET PO SCH (05:50)
[2019-02-08 06:08] LABS: Hemoglobin 8.3 g/dL (12.0-16.0); Mean Corpuscular Hgb Conc 30.7 g/dL (32-36); Mean Corpuscular Volume 92.5 fL (80-100); Mean Platelet Volume 9.5 fL (7.4-10.4); Platelet Count 232 K/uL (130-400); RDW Coefficient of Variation 16.5 % (11.5-14.5); RDW Standard Deviation 55.8 fL (36.4-46.3); Red Blood Count 2.92 M/uL (4.2-5.4)
[2019-02-08] MEDS: HEPARIN SOD 5,000 UNIT/0.5 ML VIAL SQ SCH ×2 (08:42→21:22)
[2019-02-08] MEDS: HYDROXYCHLOROQUINE SULFATE 200 MG TAB PO SCH (08:52)
[2019-02-08] MEDS: ASCORBIC ACID 500 MG TAB PO SCH (08:53)
[2019-02-08] MEDS: VITAMIN B COMPLEX TAB PO SCH (08:53)
[2019-02-08] MEDS: CLOPIDOGREL BISULFATE 75 MG TAB PO SCH (08:53)
[2019-02-08] MEDS: CEROVITE ADV FORMULA TAB PO SCH (08:53)
[2019-02-08] MEDS: MIDODRINE HCL 2.5 MG TAB PO SCH ×3 (08:53→17:53)
[2019-02-08] MEDS: DULOXETINE HCL 30 MG CAP PO SCH (08:53)
[2019-02-08] MEDS: GABAPENTIN 300 MG CAP PO SCH ×3 (08:53→21:24)
[2019-02-08] MEDS: CYANOCOBALAMIN 500 MCG TABLET (VITAMIN B-12) PO SCH (08:53)
[2019-02-08] MEDS: FEXOFENADINE 60 MG TAB PO SCH (08:53)
[2019-02-08] MEDS: CHOLECALCIFEROL 1,000 UNITS TAB PO SCH (08:53)
[2019-02-08] MEDS: DULOXETINE HCL 60 MG CAP PO SCH (08:53)
[2019-02-08] MEDS: DOCUSATE SODIUM/SENNA 50/8.6MG TAB PO SCH (08:53)
[2019-02-08] MEDS: predniSONE 10 MG TABLET PO SCH (08:53)
[2019-02-08] MEDS: OXYCODONE HCL IR 5 MG TAB (IMMEDIATE RELEASE) PO SCH ×2 (08:53→21:29)
[2019-02-08] MEDS: POLYETHYLENE (MIRALAX) 17 GM PACK PO SCH (08:53)
[2019-02-08] MEDS: ATORVASTATIN 40 MG TAB PO SCH (08:53)
[2019-02-08] MEDS: ASPIRIN 81 MG ECTAB PO SCH (08:54)
[2019-02-08] MEDS: INSULIN ASPART 100 UNITS/ML 3 ML PEN SC SCH ×4 (08:55→21:27)
--- NOTE | 2019-02-08 14:18 | Hospitalist Progress Note ---
Date of Service February 08, 2019 Assessment & Plan (1) Recurrent UTI: Alternates between 3 abx Q6mbglm, but still presented with UTI. Was on doxy prior to this admission. Urine cx from 02/03 growing Enterobacter cloacae. - Switched from ceftriaxone to imipenem per Dr. Wilson on 02/06 - ID requests 2-3 days of imipenem, then probably stop of abx. - Patient tolerating well. No concerns at present. (2) Sepsis: Sepsis due to UTI, POA, with associated metabolic encephalopathy. - Resolved at this time (3) Anemia: Hx of recent iron transfusions. - Baseline hgb ~10. - On 02/06, hgb was 8.1 and down from 9.0 the day before. - On 02/08, stable at 8.3. (4) Prediabetes: Sliding scale insulin (5) Chronic respiratory failure: Unknown cause, but on chronic O2. - Continue at home level PRN; no shortness of breath or other acute concerns. (6) Neuropathy: Continue home meds (7) SLE (systemic lupus erythematosus): Continue home meds (8) Rheumatoid arthritis: - Continue home meds (9) Hypothyroid: TSH was 1.8 in 12/2018. No signs/symptoms of hypo-/hyperthyroidism. - Continue home Synthroid 88 mcg (10) Depression: No present mood concerns. - Continue home meds (11) Peripheral artery disease: Continue aspirin & Plavix (12) DVT prophylaxis: Heparin for DVT prophylaxis Subjective No major complaints. Hand swelling is going down. Reports no fevers/chills, chest pain, shortness of breath, abdominal pain, nausea, or vomiting. Review of Systems Constitutional: no chills, no sweats and no malaise Neurologic: no gait abnormality Physical Exam 2 Constitutional: WD/WN, vitals as above Eyes: normal visual gaston by confrontation and + anicteric sclerae Neck: normal visual inspection and trachea midline Respiratory: normal respiratory effort, lungs clear to auscultation Cardiovascular: Rate/Rhythm: regular rate and regular rhythm Gastrointestinal (Abdomen): Inspection/Auscultation: abdomen not distended Percussion/Palpation: abdomen soft; abdomen nontender Musculoskeletal: Head/Neck/Chest: normocephalic and head atraumatic Skin: no rashes, warm and dry Neurologic: awake; not confused Speech / Cognition: normal speech Psychiatric: Orientation: alert, oriented to person and cooperative Eye Contact: good eye contact Speech: normal rate/rhythm/volume of speech Results & Data Vital Signs (Past 12 Hours) Vital Signs Temp Pulse Pulse Resp BP BP Pulse Ox 02/08/19 12:00 36.8 C 93 H 18 164/75 H 90 02/08/19 09:59 79 02/08/19 07:21 36.6 C 87 18 171/81 H 98 02/08/19 05:51 88 155/78 H 02/08/19 04:00 36.6 C 86 20 160/79 H 94 (1) Sepsis Sepsis type: sepsis due to unspecified organism Qualified Code(s): A41.9 - Sepsis, unspecified organism (2) Anemia Anemia type: unspecified type Qualified Code(s): D64.9 - Anemia, unspecified
--- NOTE | 2019-02-08 16:04 | Infectious Disease Progress Nt ---
Date of Service February 08, 2019 Assessment & Plan (1) UTI (urinary tract infection): 88-year-old female with recurrent urinary tract infection associated with encephalopathy, with culture positive for resistant Enterobacter. Patient will be treated with ertapenem to complete 10 days of therapy. 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 More comfortable, offers no new complaints today. Remains afebrile. Mental status back to baseline. Review of Systems Review of Systems: All systems reviewed & are unremarkable except as noted in HPI & below Physical Exam Constitutional: WD/WN, vitals as above comfortable; no acute distress Eyes: PERRL, conjunctivae normal, anicteric sclerae ENMT: external ear and nose normal, oropharynx normal Neck: trachea midline, no thyromegaly neck nontender Respiratory: normal respiratory effort, lungs clear to auscultation normal percussion; does not use accessory muscles Cardiovascular: Rate/Rhythm: regular rate and regular rhythm Heart Sounds: normal S1 and normal S2; no gallop, no murmur and no cardiac rub Vessels: normal peripheral pulses; no JVD Gastrointestinal (Abdomen): normal bowel sounds, soft, nontender, no hepatosplenomegaly Musculoskeletal: no cyanosis or clubbing, extremities motor strength 5/5 Spine: thoracic spine normal to inspection and lumbar spine normal to inspection; no cervical spinal tenderness Skin: no rashes, warm and dry normal turgor; no lesions Neurologic: patellar DTR's 2+ bilat, sensation intact no focal motor deficits Psychiatric: A+Ox3, euthymic affect Orientation: cooperative Lymphatic: no cervical or axillary lymphadenopathy no inguinal lymphadenopathy Results & Data Vital Signs (Past 12 Hours) Vital Signs Temp Pulse Pulse Resp BP BP Pulse Ox 02/08/19 12:00 36.8 C 93 H 18 164/75 H 90 02/08/19 09:59 79 02/08/19 07:21 36.6 C 87 18 171/81 H 98 02/08/19 05:51 88 155/78 H Laboratory Results Short CBC 02/08/19 Range/Units 05:29 WBC 6.90 (4.8-10.8) K/uL Hgb 8.3 L (12.0-16.0) g/dL Hct 27.0 L (37-47) % Plt Count 232 (130-400) K/uL Diagnostic Findings Microbiology 02/03/19 10:45 Urine,Indwelling Cath Urine Culture - Final Enterobacter cloacae 02/03/19 11:38 Blood Blood Culture - Preliminary No growth to date. 02/03/19 11:16 Blood Blood Culture - Preliminary No growth to date. (1) UTI (urinary tract infection) Hematuria presence: with hematuria Urinary tract infection type: site unspecified Qualified Code(s): N39.0 - Urinary tract infection, site not specified; R31.9 - Hematuria, unspecified
[2019-02-08] MEDS: ERTAPENEM SODIUM 1,000 MG in SODIUM CHLORIDE 0.9% 50 ML IV SCH (19:51)
[2019-02-08] MEDS: PRAZOSIN HCL 1 MG CAP PO SCH (21:24)
[2019-02-08] MEDS: QUETIAPINE FUMARATE 200 MG TAB PO SCH (21:27)
[2019-02-08] MEDS: ACETAMINOPHEN 500 MG TAB PO SCH (21:30)
[2019-02-09] MEDS: DICLOFENAC SOD 1% GEL 100 GM TUBE EXT PRN
[2019-02-09 03:23] VITALS: O2SAT 96
[2019-02-09] MEDS: LEVOTHYROXINE SODIUM 88 MCG TABLET PO SCH (06:19)
[2019-02-09] MEDS: INSULIN ASPART 100 UNITS/ML 3 ML PEN SC SCH ×3 (09:17→17:29)
[2019-02-09] MEDS: MIDODRINE HCL 2.5 MG TAB PO SCH ×3 (09:18→16:59)
[2019-02-09] MEDS: ASCORBIC ACID 500 MG TAB PO SCH (09:18)
[2019-02-09] MEDS: HYDROXYCHLOROQUINE SULFATE 200 MG TAB PO SCH (09:18)
[2019-02-09] MEDS: ASPIRIN 81 MG ECTAB PO SCH (09:18)
[2019-02-09] MEDS: DOCUSATE SODIUM/SENNA 50/8.6MG TAB PO SCH (09:18)
[2019-02-09] MEDS: VITAMIN B COMPLEX TAB PO SCH (09:18)
[2019-02-09] MEDS: OXYCODONE HCL IR 5 MG TAB (IMMEDIATE RELEASE) PO SCH (09:19)
[2019-02-09] MEDS: FEXOFENADINE 60 MG TAB PO SCH (09:19)
[2019-02-09] MEDS: CEROVITE ADV FORMULA TAB PO SCH (09:19)
[2019-02-09] MEDS: GABAPENTIN 300 MG CAP PO SCH ×2 (09:19→12:40)
[2019-02-09] MEDS: CYANOCOBALAMIN 500 MCG TABLET (VITAMIN B-12) PO SCH (09:19)
[2019-02-09] MEDS: HEPARIN SOD 5,000 UNIT/0.5 ML VIAL SQ SCH (09:20)
[2019-02-09] MEDS: DULOXETINE HCL 30 MG CAP PO SCH (09:21)
[2019-02-09] MEDS: ATORVASTATIN 40 MG TAB PO SCH (09:21)
[2019-02-09] MEDS: CHOLECALCIFEROL 1,000 UNITS TAB PO SCH (09:22)
[2019-02-09] MEDS: CLOPIDOGREL BISULFATE 75 MG TAB PO SCH (09:22)
[2019-02-09] MEDS: DULOXETINE HCL 60 MG CAP PO SCH (09:22)
[2019-02-09] MEDS: POLYETHYLENE (MIRALAX) 17 GM PACK PO SCH (09:23)
[2019-02-09] MEDS: predniSONE 10 MG TABLET PO SCH (09:23)
--- NOTE | 2019-02-09 13:00 | Discharge Summary ---
Date of Service February 09, 2019 Admission HPI Per Admitting Provider 88 y/o F who was sent to the ED for AMS. Pt is not answering all questions, so hx is provided by pt's daughter. She states that she was with pt yesterday AM. She had a good breakfast. She said she spoke with pt around 2:30p and pt noted she continued to be very sleepy all day, but no other concerns at that time. She states pt seemed her usual other than tired. Pt has caregivers in her home 12 hrs a day. When the caregiver arrived around 8:30a today, pt was what the daughter describes as "unresponsive". When directly asked what that means, she states pt's eyes are open and she answers some questions, but not as she usually would and does not answer other questions. She was never LOC. Daughter states this is how she gets with UTI. She has hx of recurrent UTI. She follows with Urology and ID. She does rotating abx for this reason. She is on doxy currently. Pt denies pain currently. Pt denies fever, SOB, chest pain, abd pain, n/v/c/d, LE pain or swelling. 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 Principal Diagnosis UTI Discharge Exam Constitutional WD/WN, vitals as above Respiratory normal respiratory effort, lungs clear to auscultation Cardiovascular RRR, no murmur, no edema Gastrointestinal (Abdomen) Inspection/Auscultation: abdomen normal to inspection and normal bowel sounds; abdomen not distended Skin no rashes, warm and dry Neurologic moves all extremities and awake Psychiatric A+Ox3, euthymic affect Discharge Data Allergies Allergy/AdvReac Type Severity Reaction Status Date / Time nitrofurantoin Allergy Severe HIVES Verified 02/03/19 10:46 scallops Allergy Severe THROAT Verified 02/03/19 10:46 SWELLS Cipro Allergy Intermediate HIVES Verified 06/03/18 16:34 ciprofloxacin Allergy Intermediate HIVES Verified 02/03/19 10:46 latex Allergy Intermediate RASH Verified 02/03/19 10:46 Quinolones Allergy Intermediate HIVES Verified 02/03/19 10:46 fluticasone Allergy Unknown ADVAIR-UNKN Verified 02/03/19 10:46 OWN salmeterol Allergy Unknown ADVAIR Verified 02/03/19 10:46 celecoxib AdvReac Intermediate barretts Verified 02/03/19 10:46 esophagus lactose AdvReac Intermediate GI UPSET Verified 02/03/19 10:46 morphine AdvReac Intermediate NAUSEA AND Verified 02/03/19 10:46 VOMITING Consultations 02/03/19 14:46 Consult Case Management - Discharge Planning Routine 02/04/19 09:42 Consult Infectious Diseases Routine Ordered Studies 02/03/19 10:24 CT head/brain wo con Stat Hospital Course (1) Recurrent UTI: Alternates between 3 abx [id number], but still presented with UTI. Was on doxy prior to this admission. Urine cx from 02/03 growing Enterobacter cloacae. - Switched from ceftriaxone to imipenem per Dr. Wilson on 02/06 and will discharge with 7 more days of Ertapenem per ID recommendation. - Patient tolerating well. No concerns at present. (2) Sepsis: Sepsis due to UTI, POA, with associated metabolic encephalopathy. - Resolved at this time (3) Anemia: Hx of recent iron transfusions. - Baseline hgb ~10. - On 02/06, hgb was 8.1 and down from 9.0 the day before. - On 02/08, stable at 8.3. Asymptomatic - will have CBC drawn Wednesday (4) Hypertension: Patient's blood pressure has been running 150 - 170s/ 70s - 80s over the last couple of days. 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 May need her dosing changed. She should follow up with her pcp. She has been asymptomatic (5) Prediabetes: Sliding scale insulin (6) Chronic respiratory failure: Unknown cause, but on chronic O2. - Continue at home level PRN; no shortness of breath or other acute concerns. (7) Neuropathy: Continue home meds (8) SLE (systemic lupus erythematosus): Continue home meds (9) Rheumatoid arthritis: - Continue home meds (10) Hypothyroid: TSH was 1.8 in 12/2018. No signs/symptoms of hypo-/hyperthyroidism. - Continue home Synthroid 88 mcg (11) Depression: No present mood concerns. - Continue home meds (12) Peripheral artery disease: Continue aspirin & Plavix (13) DVT prophylaxis: Heparin for DVT prophylaxis Total Time Total Time Spent Total Time Spent (In Minutes): greater than 30 minutes Discharge Plan Discharge Items Patient Disposition: Home - Home Health Services Reason For Visit: AMS,UTI Discharge Diagnosis: UTI, altered mental status Discharge Goals: Improve disease control Activity: Resume your previous activity Non-emergency contact: Primary Care Provider Call non-emergency contact if: you have any medication questions, your symptoms worsen and you have a fever Follow-up/Referrals: Jose Wilson MD [Physician] - 02/22/19 1:15 pm (Please, follow up with Dr. Jose Wilson (infectious disease specialist) on WednesdayFebruary 22 at 1:15 pm. *This office is is located in [address] of [facility] building next to this hospital. If you need to change this appointment, call the office at [phone].) Nidhi Gardner MD [Primary Care Provider] - 02/15/19 12:00 pm (Please, follow up with Dr. Gardner on WednesdayFebruary 15 at 12:00 pm. *If you need to change this appointment, call the office at [phone].) Diet: Carb Consistent or DM2 Other Ambulatory Orders: Complete Blood Count with Diff (Routine) Timeframe: [id number] Location: Determined by Patient Ordered By: Tia Meehan Provider Instructions: While you were here your blood pressure was a bit elevated. Please discuss your midodrine dosing with your pcp. You will receive daily infusions of Ertapenem 1 g IV provided to you by your Home Health agency. Please have Home Health draw your blood on Wednesday. Prescriptions: Continued fexofenadine [Cora Allergy] 60 mg tablet 60 mg PO QAM RF: 0 aspirin 81 mg tablet,delayed release (DR/EC) 81 mg PO QAM RF: 0 nitroglycerin 0.4 mg tablet, sublingual 0.4 mg SL Q5M PRN (Reason: chest pain) Qty: 1 RF: 0 cholecalciferol (vitamin D3) 2,000 unit capsule 2,000 units PO QAM RF: 0 levothyroxine [Synthroid] 88 mcg tablet 88 mcg PO QAM RF: 0 ascorbic acid (vitamin C) 500 mg tablet 500 mg PO QAM RF: 0 hydroxychloroquine 200 mg tablet 300 mg PO QAM RF: 0 ondansetron HCl [Zofran] 8 mg Tablet 8 mg PO Q6 PRN (Reason: Nausea) RF: 0 clopidogrel [Plavix] 75 mg Tablet 75 mg PO QAM RF: 0 lidocaine 5 % Gel 1 applic Topical QID PRN (Reason: Back Pain) RF: 0 diclofenac sodium [Voltaren] 1 % gel 4 gm TOP QID MDD 16G PRN (Reason: Pain) RF: 0 duloxetine [Cymbalta] 60 mg Capsule,Delayed Release(Dr/Ec) 60 mg PO QAM RF: 0 fluticasone propionate [Flonase Allergy Relief] 50 mcg/actuation Hawi,Suspension 2 spray INTRANASAL DAILY PRN (Reason: Congestion) RF: 0 cyanocobalamin (vitamin B-12) [Vitamin B-12] 1,000 mcg Tablet 1,000 mcg PO QAM RF: 0 oxycodone 5 mg Tablet 10 mg PO BID RF: 0 Ocuvite with Lutein 1,000 unit-200 mg-60 unit-2 mg Tablet 1 tab PO QAM RF: 0 gabapentin 300 mg capsule 300 mg PO TID RF: 0 vitamin B complex Tablet 1 tab PO QAM RF: 0 polyethylene glycol 3350 [Miralax] 17 gram powder in packet 17 gm PO QAM PRN (Reason: Constipation) RF: 0 prazosin 1 mg capsule 1 mg PO HS RF: 0 Dexilant 60 mg Capsule,Biphase Delayed Releas 60 mg PO BID RF: 0 midodrine 5 mg Tablet 5 mg PO TID@0800,1200,1700 RF: 0 prednisone 10 mg tablet 10 mg PO QAM RF: 0 Azo Urinary Pain Relief 97.5 mg Tablet 97.5 mg PO TID PRN (Reason: .URINARY PAIN) RF: 0 atorvastatin 40 mg tablet 40 mg PO QAM RF: 0 quetiapine 200 mg tablet 200 mg PO HS RF: 0 duloxetine 30 mg Capsule,Delayed Release(Dr/Ec) 30 mg PO QAM Qty: 0 RF: 0 acetaminophen [Tylenol Extra Strength] 500 mg Tablet 1,000 mg PO PM RF: 0 Discontinued doxycycline hyclate 100 mg capsule 100 mg PO PM RF: 0 Stand-Alone Forms: [facility] Discharge Orders: Discharge Order (Routine); Ordered 02/09/19 Ordered By: Tia Ramey Admission Data Admit Date/Time: 02/03/19 13:20 Attending Provider: Everardo Buenrostro Admit Provider: Roxie Gregg Care Provider: Nidhi Gardner Other Providers: Jose Wilson Service: Telemetry
[2019-02-09] MEDS ORDERED: Nursing to Pharmacy Communication ONE (13:31)
--- NOTE | 2019-02-09 13:37 | Infectious Disease Progress Nt ---
Date of Service February 09, 2019 Assessment & Plan (1) UTI (urinary tract infection): 88-year-old female with recurrent urinary tract infection associated with encephalopathy, with culture positive for resistant Enterobacter. Patient will be treated with ertapenem to complete 10 days of therapy. 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 More comfortable, offers no new complaints today. Remains afebrile. Mental status back to baseline. Review of Systems Review of Systems: All systems reviewed & are unremarkable except as noted in HPI & below Physical Exam Constitutional: WD/WN, vitals as above comfortable; no acute distress Eyes: PERRL, conjunctivae normal, anicteric sclerae ENMT: external ear and nose normal, oropharynx normal Neck: trachea midline, no thyromegaly neck nontender Respiratory: normal respiratory effort, lungs clear to auscultation normal percussion; does not use accessory muscles Cardiovascular: Rate/Rhythm: regular rate and regular rhythm Heart Sounds: normal S1 and normal S2; no gallop, no murmur and no cardiac rub Vessels: normal peripheral pulses; no JVD Gastrointestinal (Abdomen): normal bowel sounds, soft, nontender, no hepatosplenomegaly Musculoskeletal: no cyanosis or clubbing, extremities motor strength 5/5 Spine: thoracic spine normal to inspection and lumbar spine normal to inspection; no cervical spinal tenderness Skin: no rashes, warm and dry normal turgor; no lesions Neurologic: patellar DTR's 2+ bilat, sensation intact no focal motor deficits Psychiatric: A+Ox3, euthymic affect Orientation: cooperative Lymphatic: no cervical or axillary lymphadenopathy no inguinal lymphadenopathy Results & Data Vital Signs (Past 12 Hours) Vital Signs Temp Pulse Pulse Resp BP BP Pulse Ox 02/09/19 07:42 94 H 02/09/19 07:30 36.7 C 84 18 175/78 H 96 02/09/19 03:22 36.7 C 90 16 157/80 H 96 Laboratory Results Laboratory Results - last 48 hr 02/07/19 02/07/19 02/08/19 16:16 20:20 05:29 WBC 6.90 RBC 2.92 L Hgb 8.3 L Hct 27.0 L MCV 92.5 MCH 28.4 MCHC 30.7 L RDW Std Deviation 55.8 H RDW Coeff of Omar 16.5 H Plt Count 232 MPV 9.5 POC Glucose 142 H 127 H 02/08/19 02/08/19 02/08/19 07:44 11:18 16:01 WBC RBC Hgb Hct MCV MCH MCHC RDW Std Deviation RDW Coeff of Omar Plt Count MPV POC Glucose 90 161 H 140 H 02/08/19 02/09/19 02/09/19 20:19 07:40 11:37 WBC RBC Hgb Hct MCV MCH MCHC RDW Std Deviation RDW Coeff of Omar Plt Count MPV POC Glucose 162 H 89 110 H Diagnostic Findings Microbiology 02/03/19 11:38 Blood Blood Culture - Final No growth 02/03/19 11:16 Blood Blood Culture - Final No growth 02/03/19 10:45 Urine,Indwelling Cath Urine Culture - Final Enterobacter cloacae (1) UTI (urinary tract infection) Hematuria presence: with hematuria Urinary tract infection type: site unspecified Qualified Code(s): N39.0 - Urinary tract infection, site not specified; R31.9 - Hematuria, unspecified
[2019-02-09 15:51] VITALS: PULSE 89; TEMP 98.4
[2019-02-09 16:23] VITALS: BP 175/78
[2019-02-09] MEDS: ERTAPENEM SODIUM 1,000 MG in SODIUM CHLORIDE 0.9% 50 ML IV SCH (16:58)
== END 2019-02-09 19:23 | disposition home health service (06) | DRG 871 ==
LOC: ED 10:05 → SUATTDRO 13:20 → 2N 13:20

== ENCOUNTER 2019-07-18 18:43 | Inpatient (IN) ==
[2019-07-18] MEDS ORDERED: ACETAMINOPHEN 325 MG TAB PO STA (19:11)
[2019-07-18] MEDS ORDERED: ONDANSETRON INJ 2 MG/ML 2 ML VIAL IV STA (19:11)
[2019-07-18] MEDS ORDERED: HYOSCYAMINE SULFATE 0.125 MG TAB SL STA (19:11)
[2019-07-18] MEDS ORDERED: SODIUM CHLORIDE 0.9% 1000ML 1,000 ML IV SCH (19:15)
[2019-07-18 20:12] LABS: Basophils # (auto) 0.02 K/uL (0-0.2); Basophils % (auto) 0.2 %; Eosinophils # (auto) 0.12 K/uL (0-0.5); Eosinophils % (auto) 0.9 %; Hematocrit (blood only) 32.1 % (37-47); Hemoglobin 9.7 g/dL (12.0-16.0); Immature Granulocytes # (auto) 0.07 K/uL (0.00-0.02); Immature Granulocytes % (auto) 0.6 %; Lymphocytes # (auto) 1.45 K/uL (1.2-3.4); Lymphocytes % (auto) 11.4 %; Mean Corpuscular Hemoglobin 26.9 pg (25-34); Mean Corpuscular Hgb Conc 30.2 g/dL (32-36); Mean Corpuscular Volume 88.9 fL (80-100); Mean Platelet Volume 9.2 fL (7.4-10.4); Monocytes # (auto) 1.08 K/uL (0.11-0.59); Monocytes % (auto) 8.5 %; Neutrophils # (auto) 9.96 K/uL (1.4-6.5); Neutrophils % (auto) 78.4 %; Platelet Count 264 K/uL (130-400); RDW Standard Deviation 52.1 fL (36.4-46.3); Red Blood Count 3.61 M/uL (4.2-5.4)
[2019-07-18 20:31] LABS: Alanine Aminotransferase 27 U/L (12-78); Albumin Level 3.3 gm/dl (3.4-5.0); Aspartate Aminotransferase 14 U/L (15-37); BUN Creatinine Ratio 14.3 (10-20); Blood Urea Nitrogen 14 mg/dl (7-18); Calcium 9.1 mg/dl (8.5-10.1); Carbon Dioxide 30 mmol/L (21-32); Chloride 106 mmol/L (98-107); Est GFR (African American) 62.9; Est GFR (Non-African American) 54.2; Glucose 99 mg/dl (70-99); Potassium 4.1 mmol/L (3.5-5.1); Sodium 142 mmol/L (136-145)
[2019-07-18 20:34] LABS: Alkaline Phosphatase 102 U/L (45-117); Bilirubin,Total 0.2 mg/dl (0.2-1); Globulin 3.4 gm/dl (2.5-4.0); Total Protein 6.7 gm/dl (6.4-8.2)
--- NOTE | 2019-07-18 20:48 | Emergency Department Note ---
Entered by Brittany Alvarado acting as a scribe for Giancarlo Haas MD History of Present Illness General Chief complaint: Urinary Symptoms Stated complaint: CRAMPING BLADDER, BURNING, CHILLS Time Seen by Provider: 07/18/19 19:01 Source: patient Mode of arrival: ambulatory History of Present Illness Provider complaint: urinary symptoms Onset (ago): day(s) 2 Location: pelvis Pain Consistency: + other (worsening) Maximum Pain Intensity: 7 Quality: + burning Exacerbated By: + other (urinating ) Associated symptoms: + diaphoresis and + fever/chills; no cough The patient is a year old female with a PMHX of UTI, diabetes, SLE, CKD, RA, depression, HTN, and colostomy, who presents to the ED with complaints of worse gilberto urinary symptoms that began 2 days ago. The patient states that she has burning and cramping when she urinates. The patient states that she is unable to think clearly. The patient states that she has the chills and sweats. The patient denies a cough. The patient states that her colostomy bag is normal. Home Medications Home Medications Medication Instructions Recorded Confirmed Type ascorbic acid (vitamin C) 500 mg 500 mg PO QAM 07/07/18 06/15/19 History tablet aspirin 81 mg tablet,delayed 81 mg PO QAM 07/07/18 06/15/19 History release cholecalciferol (vitamin D3) 2,000 2,000 units PO QAM 07/07/18 06/15/19 History unit capsule fexofenadine 60 mg tablet 60 mg PO QAM tab 07/07/18 06/15/19 History nitroglycerin 0.4 mg sublingual 0.4 mg SL Q5M PRN #1 tab 07/07/18 06/15/19 Rx tablet duloxetine [Cymbalta] 60 mg PO QAM 08/10/18 06/15/19 History fluticasone propionate [Flonase 2 spray INTRANASAL DAILY PRN 08/10/18 06/15/19 History Allergy Relief] ondansetron HCl [Zofran] 8 mg PO Q6 PRN 08/10/18 06/15/19 History Ocuvite with Lutein 1 tab PO QAM 08/31/18 06/15/19 History cyanocobalamin (vitamin B-12) 1,000 mcg PO QAM 08/31/18 06/15/19 History [Vitamin B-12] gabapentin 300 mg PO TID 09/26/18 06/15/19 History polyethylene glycol 3350 [Miralax] 17 gm PO QAM PRN 09/26/18 06/15/19 History vitamin B complex 1 tab PO QAM 09/26/18 06/15/19 History Azo Urinary Pain Relief 97.5 mg PO TID PRN 11/07/18 06/15/19 History Dexilant 60 mg PO BID 11/07/18 06/15/19 History atorvastatin 40 mg PO QAM 12/13/18 06/15/19 History acetaminophen [Tylenol Extra 1,000 mg PO PM 01/03/19 06/15/19 History Strength] furosemide 20 mg PO DAILY PRN 03/21/19 06/15/19 History amoxicillin 500 mg capsule 500 mg PO TID #30 cap 03/28/19 06/15/19 History doxycycline hyclate 100 mg capsule 100 mg PO DIRECTED PRN #30 cap 03/28/19 06/15/19 History levothyroxine 88 mcg tablet 88 mcg PO QAM 03/28/19 06/15/19 History metronidazole 500 mg tablet 500 mg PO DIRECTED PRN tab 03/28/19 06/15/19 History clopidogrel [Plavix] 75 mg PO QAM 05/07/19 06/15/19 History lidocaine 1 applic TOPICAL QID PRN 05/07/19 06/15/19 History duloxetine 30 mg capsule,delayed 30 mg PO DAILY #90 cap 05/24/19 06/15/19 Rx release quetiapine 200 mg tablet 200 mg PO HS #30 tab 05/26/19 06/15/19 Rx diclofenac 1 % topical gel 4 gm TOP QID PRN #300 gm MDD 16G 05/29/19 06/15/19 Rx to any one affected joint hydroxychloroquine 200 mg tablet 200 mg PO QAM #30 tab 06/08/19 06/15/19 Rx prednisone 10 mg tablet 10 mg PO QAM #90 tab 06/14/19 06/15/19 Rx midodrine 5 mg tablet 5 mg PO TID #90 tab 07/07/19 Rx oxycodone 10 mg tablet 10 mg PO BID #60 tab 07/11/19 Rx prazosin 1 mg capsule 1 mg PO HS PRN #30 cap 07/18/19 Rx sulfamethoxazole-trimethoprim 1 tab PO BID 6 Days #12 tab 07/18/19 Rx [Bactrim DS] Allergies Allergy/AdvReac Type Severity Reaction Status Date / Time nitrofurantoin Allergy Severe HIVES Verified 06/15/19 13:08 scallops Allergy Severe THROAT Verified 06/15/19 13:08 SWELLS Cipro Allergy Intermediate HIVES Verified 06/03/18 16:34 ciprofloxacin Allergy Intermediate HIVES Verified 06/15/19 13:08 latex Allergy Intermediate RASH Verified 06/15/19 13:08 Quinolones Allergy Intermediate HIVES Verified 06/15/19 13:08 fluticasone Allergy Unknown ADVAIR-UNKN Verified 06/15/19 13:08 OWN salmeterol Allergy Unknown ADVAIR Verified 06/15/19 13:08 shellfish derived Allergy SCALLOPS-THROAT Verified 06/15/19 13:08 SWELLS celecoxib AdvReac Intermediate barretts Verified 06/15/19 13:08 esophagus lactose AdvReac Intermediate GI UPSET Verified 06/15/19 13:08 milk AdvReac Intermediate LACTOSE Verified 06/15/19 13:08 INTOLERANT morphine AdvReac Intermediate NAUSEA AND Verified 06/15/19 13:08 VOMITING Past Med/Surg History Medical History Adrenocortical insufficiency Allergic rhinitis Anemia of chronic disease Arteriosclerosis of coronary artery Asthma Back pain Barretts esophagus Chronic cystitis Chronic reflux esophagitis Colovaginal fistula Constipation 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 Dilated bile duct Esophageal spasm Fatigue Fibromyalgia Herpes simplex type 1 infection Hiatal hernia Hypercholesterolemia Impaired mobility and ADLs Iron deficiency anemia Leukocytosis 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 of systemic steroids Long-term use of hydroxychloroquine Lumbar canal stenosis 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 Orthostatic hypotension Oxygen dependent Peripheral edema Polyarthritis Poor balance 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 Rheumatoid factor positive with cyclic citrullinated peptide (CCP) antibody negative Skin lesion of face Solitary pulmonary nodule Stasis ulcer Steroid-induced osteopenia Tension headache Urinary incontinence Urinary retention Vitamin D deficiency, unspecified UTI (urinary tract infection) Rheumatoid arthritis Chronic back pain Depression (03/10/13) Major depressive disorder, recurrent episode with anxious distress Acute gastritis (03/23/12) Cholecystectomy (03/10/13) Colostomy present Diabetes mellitus Diverticula of colon Falls frequently History of colitis History of pneumonia Infected abrasion of great toe of left foot Infected abrasion of great toe of right foot Lactose intolerance Low blood pressure Pituitary adenoma (03/10/13) Slurred speech TIA (transient ischemic attack) Vasovagal syncope (03/10/13) Surgical History H/O: hysterectomy History of hip replacement History of surgical removal of pituitary gland History of surgical removal of pituitary gland Hx of cholecystectomy Family History Grandmother Breast cancer Other Cancer Diabetes Gallbladder disease Heart disease Hypertension Seizure Social History Preferred Language: Japanese Communication Ability: Effective Visual Impairment: No Limitations Hearing Ability: Hard of Hearing Program Director/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 and A total of 10 systems reviewed and were otherwise negative Physical Exam Vital Signs Vital Signs - 24 hr 07/18/19 18:54 07/18/19 19:23 Temperature 37.2 C Temperature Source Oral Sepsis Recent Fever Within 48 Hours No Sepsis Action Taken by Nursing No Action Required Pulse Rate 96 H Respiratory Rate 18 Respiratory Effort / Characteristics Non-Labored Respiratory Depth Normal Blood Pressure 136/73 Blood Pressure Mean 94 Pulse Oximetry 96 96 Oxygen Delivery Method Room Air Room Air GENERAL: Mildly uncomfortable appearing, well nourished, wearing glasses. EYE EXAM: Normal conjunctiva. PERRL, no anisocoria and EOM's grossly intact w/o pain. OROPHARYNX: Moist mucous membranes. Grossly normal dentition. NECK: Supple, no nuchal rigidity, no adenopathy, non-tender. No signs of meningismus. LUNGS: Clear to auscultation. Normal chest wall mechanics. HEART: NSR, no MRG. ABDOMEN: Abdomen soft, normo-active bowel sounds, no masses, no rebound or guarding. Colostomy bag in place, right lower abdomen, mild suprapubic discomfort. BACK: No CVA TTP. SKIN: No rashes and no bruising. UPPER EXTREMITIES: Upper extremities are grossly normal. LOWER EXTREMITIES: No pitting edema. No calf pain. NEURO EXAM: A&O x3, cranial nerves II-XII grossly intact, normal speech. Course 190: Past medical records reviewed. The patient was evaluated in room C8. A complete history and physical exam was performed. I did discuss discharge plan and the family is concerned that the patient may not do well without IV antibiotics as an issue in the past. I did speak the on- call hospitalist who agreed to further evaluate treat the patient. Patient was admitted to the medicine service. I did speak with Dr. Avani Russo hospitalist service who will evaluate the patient. Administered Medications Discontinued Medications Acetaminophen (Tylenol) 650 mg PO NOW STA Stop: 07/18/19 19:12 Last Admin: 07/18/19 20:05 Dose: 650 mg Documented by: [id number] Hyoscyamine (Levsin) 0.125 mg SL NOW STA Stop: 07/18/19 19:12 Last Admin: 07/18/19 20:05 Dose: 0.125 mg Documented by: [id number] Sodium Chloride (Nss 1000ml) 1,000 mls @ 999 mls/hr IV .Q1H1M MEE Stop: 07/18/19 20:15 Last Admin: 07/18/19 20:08 Dose: 999 mls/hr, 999 mls/hr Documented by: [id number] Ondansetron HCl (Zofran) 4 mg IV NOW STA Stop: 07/18/19 19:12 Last Admin: 07/18/19 20:06 Dose: 4 mg Documented by: [id number] Ertapenem IV Medical Decision Making Differential Diagnosis Differential diagnosis: Etiologies such as biliary colic, cholecystitis, hepatitis, perihepatitis, pancreatitis, cardiac disease, pancreatitis, gastritis, peptic ulcer disease, appendicitis, ovarian cyst, ovarian torsion, ectopic , pelvic inflammatory disease, cystitis, diverticulitis, mesenteric ischemia, inflammatory bowel disease, ileus, bowel obstruction, aortic pathology, sh ingles, as well as others were considered. Medical Records Attestation: I reviewed the patient's medical records. Home Medications Current Medication List: was personally reviewed by me Laboratory Data Attestation: I reviewed the patient's lab results. Result diagrams: 07/18/19 19:54 07/18/19 19:54 Lab Results 07/18/19 07/18/19 07/18/19 Range/Units 19:54 19:54 20:51 WBC 12.70 H (4.8-10.8) K/uL RBC 3.61 L (4.2-5.4) M/uL Hgb 9.7 L (12.0-16.0) g/dL Hct 32.1 L (37-47) % MCV 88.9 (80-100) fL MCH 26.9 (25-34) pg MCHC 30.2 L (32-36) g/dL RDW Std Deviation 52.1 H (36.4-46.3) fL RDW Coeff of Omar 16.0 H (11.5-14.5) % Plt Count 264 (130-400) K/uL MPV 9.2 (7.4-10.4) fL Immature Gran % (Auto) 0.6 % Neut % (Auto) 78.4 % Lymph % (Auto) 11.4 % Evangeline % (Auto) 8.5 % Eos % (Auto) 0.9 % Baso % (Auto) 0.2 % Immature Gran # (Auto) 0.07 H (0.00-0.02) K/uL Neut # (Auto) 9.96 H (1.4-6.5) K/uL Lymph # (Auto) 1.45 (1.2-3.4) K/uL Evangeline # (Auto) 1.08 H (0.11-0.59) K/uL Eos # (Auto) 0.12 (0-0.5) K/uL Baso # (Auto) 0.02 (0-0.2) K/uL Sodium 142 (136-145) mmol/L Potassium 4.1 (3.5-5.1) mmol/L Chloride 106 (98-107) mmol/L Carbon Dioxide 30 (21-32) mmol/L Anion Gap 6.0 (3-11) BUN 14 (7-18) mg/dl Creatinine 0.95 (0.6-1.2) mg/dl Est Cr Clr Drug Dosing Not Reportable Est GFR ( Amer) 62.9 Est GFR (Non-Af Amer) 54.2 BUN/Creatinine Ratio 14.3 (10-20) Glucose 99 (70-99) mg/dl Calcium 9.1 (8.5-10.1) mg/dl Total Bilirubin 0.2 (0.2-1) mg/dl AST 14 L (15-37) U/L ALT 27 (12-78) U/L Alkaline Phosphatase 102 (45-117) U/L Total Protein 6.7 (6.4-8.2) gm/dl Albumin 3.3 L (3.4-5.0) gm/dl Globulin 3.4 (2.5-4.0) gm/dl Albumin/Globulin Ratio 1.0 (0.9-2) Urine Color Dark Yellow Urine Appearance Clear (Clear) Urine pH 6.5 (4.5-7.5) Ur Specific [place] 1.021 (1.000-1.030) Urine Protein Negative (Negative) Urine Glucose (UA) Negative (Negative) Urine Ketones Trace H (Negative) Urine Blood Negative (Negative) Urine Nitrite Positive A (Negative) Urine Bilirubin Negative (Negative) Urine Urobilinogen Negative (Negative) Ur Leukocyte Esterase 1+ H (Negative) ECG Data Attestation: I personally reviewed and interpreted this ECG as follows: Indication: other (urinary symptoms ) Rate (beats per minute): 84 Rhythm: normal sinus Findings: + other (normal axis and intervals ); no ST depression, no ST elevation and no acute ischemic change Blood Pressure Blood Pressure Findings: Normal blood pressure Blood Pressure Disposition: did not require urgent referral MDM Narrative The patient is a year old female with a PMHX of UTI, diabetes, SLE, CKD, RA, depression, HTN, and colostomy, who presents to the ED with complaints of worsening urinary symptoms that began 2 days ago. Patient was seen and evaluated the bedside. Patient has complaint is worsening urinary symptoms. The patient is currently on cefdinir for urinary suppression of chronic UTIs. The patient did have blood work completed and was noted to have a mild white count 12 chronic but stable anemia with a hemoglobin of 9. The patient has normal kidney function electro lites. The patient did receive IV fluids as well as medications. I do not believe the patient has sepsis or Олег. The patient did require cath UA. The patient was given IV fluids. I did review the patient's sensitivities with the on-call pharmacist as well as due to the patient's multiple drug allergies. I did state that the patient could be given a dose of ertapenem and then subsequently could be discharged on Bactrim. Patient's creatinine clearance based on prior weights and kidney function is between 30 and 40. No dosing adjustments are required. After further discussion with the patient's family members that is though they were concerned and the patient would require several doses of IV antibiotics as the patient typically requires this when she has UTIs with delirium. Given this I did speak the on-call hospitalist agreed to further evaluate treat the patient. Patient was admitted to the medicine service. Impression & Plan Acute UTI, Abdominal pain, Delirium, Anemia Discharge Plan Visit Data Chief Complaint: Urinary Symptoms Stated Complaint: CRAMPING BLADDER, BURNING, CHILLS ED Provider: Giancarlo Haas Discharge Problem: Acute UTI, Abdominal pain, Delirium, Anemia Patient Disposition: Home - Self-Care Condition: Good Discharge Instructions Activity Restrictions/Additional Instructions: Please return to the emergency department if you have worsening or recurrent symptoms not amenable to at-home treatment. Please call for a follow-up appointment with her primary care physician. Please take your medications as prescribed. If you have other concerns and/or complaints please feel free to also call your primary care physician's office or return the ED for further evaluation, management, and treatment. Take your medications as prescribed. If taking an antibiotic consider taking a probiotic and/or eating yogurt, but at the least, please take with food as it can cause upset stomach. If culture results are not available at discharge, if they are positive for concern of infection, you will be informed of the results as soon as they are available. You may take tylenol 650 mg every 6 hours as needed for pain/fever unless told by your physician to not take it or have liver problems. You have been examined and treated today on an emergency basis only. This is not a substitute for, or an effort to provide, complete comprehensive medical care. It is impossible to recognize and treat all injuries or illnesses in a single emergency department visit. It is therefore important that you follow up closely with [facility], your PCP, and/or your specialist(s). Call as soon as possible for an appointment. Thank you for your time and consideration. I look forward to speaking with you again soon. Please don't hesitate to call us if you have any questions. Prescriptions Prescriptions: New sulfamethoxazole-trimethoprim [Bactrim DS] 800-160 mg tablet 1 tab PO BID 6 Days Qty: 12 RF: 0 No Action fexofenadine [Cora Allergy] 60 mg tablet 60 mg PO QAM RF: 0 aspirin 81 mg tablet,delayed release (DR/EC) 81 mg PO QAM RF: 0 nitroglycerin 0.4 mg tablet, sublingual 0.4 mg SL Q5M PRN (Reason: chest pain) Qty: 1 RF: 0 cholecalciferol (vitamin D3) 2,000 unit capsule 2,000 units PO QAM RF: 0 ascorbic acid (vitamin C) 500 mg tablet 500 mg PO QAM RF: 0 duloxetine 30 mg capsule,delayed release(DR/EC) 30 mg PO DAILY Qty: 90 RF: 1 quetiapine 200 mg tablet 200 mg PO HS Qty: 30 RF: 5 diclofenac sodium [Voltaren] 1 % gel 4 gm TOP QID MDD 16G to any one affected joint PRN (Reason: Pain) Qty: 300 RF: 3 hydroxychloroquine 200 mg tablet 200 mg PO QAM Qty: 30 RF: 5 prednisone 10 mg tablet 10 mg PO QAM Qty: 90 RF: 1 midodrine 5 mg tablet 5 mg PO TID Qty: 90 RF: 1 oxycodone 10 mg tablet 10 mg PO BID Qty: 60 RF: 0 prazosin 1 mg capsule 1 mg PO HS PRN (Reason: depression with anxiety) Qty: 30 RF: 5 metronidazole 500 mg tablet 500 mg PO DIRECTED PRN (Reason: ALTERNATING ANTIBIOTICS) RF: 0 doxycycline hyclate 100 mg capsule 100 mg PO DIRECTED PRN (Reason: ALTERNATING ANTIBIOTICS) Qty: 30 RF: 0 amoxicillin 500 mg capsule 500 mg PO TID Qty: 30 RF: 0 levothyroxine [Synthroid] 88 mcg tablet 88 mcg PO QAM RF: 0 ondansetron HCl [Zofran] 8 mg Tablet 8 mg PO Q6 PRN (Reason: Nausea) RF: 0 duloxetine [Cymbalta] 60 mg Capsule,Delayed Release(Dr/Ec) 60 mg PO QAM RF: 0 fluticasone propionate [Flonase Allergy Relief] 50 mcg/actuation [place],Suspension 2 spray INTRANASAL DAILY PRN (Reason: Congestion) RF: 0 cyanocobalamin (vitamin B-12) [Vitamin B-12] 1,000 mcg Tablet 1,000 mcg PO QAM RF: 0 Ocuvite with Lutein 1,000 unit-200 mg-60 unit-2 mg Tablet 1 tab PO QAM RF: 0 gabapentin 300 mg capsule 300 mg PO TID RF: 0 vitamin B complex Tablet 1 tab PO QAM RF: 0 polyethylene glycol 3350 [Miralax] 17 gram powder in packet 17 gm PO QAM PRN (Reason: Constipation) RF: 0 Dexilant 60 mg Capsule,Biphase Delayed Releas 60 mg PO BID RF: 0 Azo Urinary Pain Relief 97.5 mg Tablet 97.5 mg PO TID PRN (Reason: .URINARY PAIN) RF: 0 atorvastatin 40 mg tablet 40 mg PO QAM RF: 0 furosemide 20 mg tablet 20 mg PO DAILY PRN (Reason: Fluid Retention) RF: 0 lidocaine 4 % Cream 1 applic TOPICAL QID PRN (Reason: Pain) RF: 0 clopidogrel [Plavix] 75 mg Tablet 75 mg PO QAM RF: 0 acetaminophen [Tylenol Extra Strength] 500 mg Tablet 1,000 mg PO PM RF: 0 Referrals Referrals: Nidhi Gardner MD [Primary Care Provider] - Discharge Problem: Abdominal pain Qualifiers: Abdominal location: lower abdomen, unspecified Qualified Code(s): R10.30 - Lower abdominal pain, unspecified Anemia Qualifiers: Anemia type: unspecified type Qualified Code(s): D64.9 - Anemia, unspecified The scribe's documentation has been prepared under my direction and personally reviewed by me in its entirety. I confirm that the note above accurately reflects all work, treatment, procedures, and medical decision making performed by me.
[2019-07-18 21:07] LABS: Appearance Urine Clear (Clear); Bacteria Urine Automated 3+ (Negative); Bilirubin Urine Negative (Negative); Blood Urine Negative (Negative); Color Urine Dark Yellow; Epithelial Cell Urine Auto >30 /lpf (0-5); Glucose Urine UA Negative (Negative); Ketones Urine Trace (Negative); Leukocyte Esterase Urine 1+ (Negative); Nitrite Urine Positive (Negative); Protein Urine Negative (Negative); RBC Urine Automated 0-4 /hpf (0-4); Specific Gravity Urine 1.021 (1.000-1.030); Urobilinogen Urine Negative (Negative); pH Urine 6.5 (4.5-7.5)
[2019-07-18] MEDS ORDERED: ERTAPENEM SODIUM 1,000 MG in SYRINGE 0 ML IV STA (21:08)
[2019-07-18] MEDS ORDERED: ERTAPENEM SODIUM 1,000 MG in SODIUM CHLORIDE 0.9% 50 ML IV STA (21:11)
--- NOTE | 2019-07-18 23:09 | History & Physical Report ---
Date of Service July 18, 2019 Assessment & Plan (1) Complicated UTI (urinary tract infection): This is an 88-year-old female with past medical history significant for recurrent UTIs, on chronic suppressive therapy with cefdinir, amoxicillin, Bactrim who presents with several days history of worsening dysuria and bladder spasms. Daughter is at the bedside and corroborates that patient's mentation also changed abruptly this morning. Notes confusion, patient states she has a hard time finding her words. She denies any focal weakness or facial droop. She is otherwise been eating and drinking regularly, colostomy bag is in place and no acute issues with that. Denies change in vision or headache, syncope or presyncope, chest pain or difficulty breathing. ED course: InVance given (see allergies) as well as Levsin, 1 L bolus, Tylenol and Zofran. Patient remains afebrile here, normotensive. Oxygenating well on room air. Labs are notable for mild leukocytosis (patient is on chronic prednisone daily), stable anemia, BMP unremarkable. Urinalysis shows positive nitrites and trace ketones. Urine cultures pending. Complicated UTI -Patient is followed by Dr. Wilson for chronic suppressive therapy--Cefdinir 300 twice daily x14 days, then amoxicillin x14 days, then Bactrim. Per patient's daughter is currently on Cefdinir. -Last urine cultures in January grew Enterobacter, showed tapia sensitivity with the exception of cefotaxime, Rocephin, Macrobid and Zosyn. Plan: -Received 1 dose of ertapenem in the ED. We will proceed with cefepime IV given last cultures were sensitive. -(Patient is allergic to quinolones, gets hives.) -Recommend follow cultures, narrow therapeutics from there. -Consider consulting infectious disease if clinically not improving, as she does follow them in the outpatient for chronic suppressive therapy. FEN/GI: Heart healthy diet, soft given dentures issues. DVT ppx: Lovenox every 24 CODE STATUS: Full code as discussed with patient and her daughter at the bedside. DISPO: MedSurg (2) Colostomy status: No acute issues (3) Adrenocortical insufficiency: Continue home prednisone 10 mg every morning (4) Allergic rhinitis: Continue fluticasone. Will hold fexofenadine in light of altered mentation. (5) Anemia of chronic disease: Continue supplementation. No acute issues. (6) Arteriosclerosis of coronary artery: Continue aspirin, statin, Plavix. (7) Back pain: Continue home pain medication including duloxetine, gabapentin, lidocaine patch, oxycodone 10 mg twice daily. (8) Barretts esophagus: Continue home Dexilant. (9) Chronic cystitis: Continue Levsin, consider adding to home medications upon discharge. (10) Recurrent UTI: (11) Chronic diastolic heart failure: Will hold furosemide 20 mg daily as needed during acute illness. (12) Clostridium difficile carrier: Follow, no acute issues. (13) Stage III chronic kidney disease: (14) Hypothyroid: Continue home levothyroxine. (15) Orthostatic hypotension: Continue home midodrine. (16) Depression: Continue home Cymbalta and Seroquel. (17) Polypharmacy: History of Present Illness Chief Complaint: Altered mental status, dysuria, on chronic suppressive therapy for UTIs Primary Care Provider: Nidhi Gardner MD This is an 88-year-old female with past medical history significant for recurrent UTIs, on chronic suppressive therapy with cefdinir, amoxicillin, Bactrim who presents with several days history of worsening dysuria and bladder spasms. Daughter is at the bedside and corroborates that patient's mentation al so changed abruptly this morning. Notes confusion, patient states she has a hard time finding her words. She denies any focal weakness or facial droop. She is otherwise been eating and drinking regularly, colostomy bag is in place and no acute issues with that. Denies change in vision or headache, syncope or presyncope, chest pain or difficulty breathing. ED course: InVance given as well as Levsin, 1 L bolus, Tylenol and Zofran. Patient remains afebrile here, normotensive. Oxygenating well on room air. Labs are notable for mild leukocytosis (patient is on chronic prednisone daily), stable anemia, BMP unremarkable. Urinalysis shows positive nitrites and trace ketones. Urine cultures pending. Past medical history: Recurrent UTI, history of colonic cystic fistula, status post colectomy with colostomy bag, adrenocortical insufficiency, allergic rhinitis, anemia of chronic disease, CAD, back pain, Glasgow's esophagus, chronic diastolic heart failure, C. difficile carrier, stage III kidney disease, hypothyroid, orthostatic hypotension and depression. Past surgical history: Colostomy, hysterectomy, hip replacement, pituitary gland removal, cholecystectomy. Social history: Lives at home alone, has caregivers between 9 AM and 8 PM. Daughter at the bedside does not live locally. No T/E/D. Allergies Allergy/AdvReac Type Severity Reaction Status Date / Time nitrofurantoin Allergy Severe HIVES Verified 07/18/19 23:00 scallops Allergy Severe THROAT Verified 07/18/19 23:00 SWELLS Cipro Allergy Intermediate HIVES Verified 06/03/18 16:34 ciprofloxacin Allergy Intermediate HIVES Verified 07/18/19 23:00 latex Allergy Intermediate RASH Verified 07/18/19 23:00 Quinolones Allergy Intermediate HIVES Verified 07/18/19 23:00 fluticasone Allergy Unknown ADVAIR-UNKN Verified 07/18/19 23:00 OWN salmeterol Allergy Unknown ADVAIR Verified 07/18/19 23:00 shellfish derived Allergy SCALLOPS-THROAT Verified 07/18/19 23:00 SWELLS celecoxib AdvReac Intermediate barretts Verified 07/18/19 23:00 esophagus lactose AdvReac Intermediate GI UPSET Verified 06/15/19 13:08 milk AdvReac Intermediate LACTOSE Verified 06/15/19 13:08 INTOLERANT morphine AdvReac Intermediate NAUSEA AND Verified 06/15/19 13:08 VOMITING Home Medications Home Medications Medication Instructions Recorded Confirmed Type aspirin 81 mg tablet,delayed 81 mg PO QAM 07/07/18 07/18/19 History release cholecalciferol (vitamin D3) 2,000 2,000 units PO QAM 07/07/18 07/18/19 History unit capsule fexofenadine 60 mg tablet 60 mg PO QAM tab 07/07/18 07/18/19 History nitroglycerin 0.4 mg sublingual 0.4 mg SL Q5M PRN #1 tab 07/07/18 07/18/19 Rx tablet duloxetine [Cymbalta] 60 mg PO QAM 08/10/18 07/18/19 History fluticasone propionate [Flonase 2 spray INTRANASAL DAILY PRN 08/10/18 07/18/19 History Allergy Relief] ondansetron HCl [Zofran] 8 mg PO Q6 PRN 08/10/18 07/18/19 History Ocuvite with Lutein 1 tab PO QAM 08/31/18 07/18/19 History cyanocobalamin (vitamin B-12) 1,000 mcg PO QAM 08/31/18 07/18/19 History [Vitamin B-12] gabapentin 300 mg PO TID 09/26/18 07/18/19 History polyethylene glycol 3350 [Miralax] 17 gm PO QAM PRN 09/26/18 07/18/19 History vitamin B complex 1 tab PO QAM 09/26/18 07/18/19 History Azo Urinary Pain Relief 97.5 mg PO TID PRN 11/07/18 07/18/19 History Dexilant 60 mg PO DAILY 11/07/18 07/18/19 History atorvastatin 40 mg PO QAM 12/13/18 07/18/19 History acetaminophen [Tylenol Extra 1,000 mg PO PM 01/03/19 07/18/19 History Strength] furosemide 20 mg PO DAILY PRN 03/21/19 07/18/19 History amoxicillin 500 mg capsule 500 mg PO UD #30 cap 03/28/19 07/18/19 History doxycycline hyclate 100 mg capsule 100 mg PO DIRECTED PRN #30 cap 03/28/19 07/18/19 History levothyroxine 88 mcg tablet 88 mcg PO QAM 03/28/19 07/18/19 History clopidogrel [Plavix] 75 mg PO QAM 05/07/19 07/18/19 History lidocaine 1 applic TOPICAL QID PRN 05/07/19 07/18/19 History duloxetine 30 mg capsule,delayed 30 mg PO DAILY #90 cap 05/24/19 07/18/19 Rx release quetiapine 200 mg tablet 200 mg PO HS #30 tab 05/26/19 07/18/19 Rx diclofenac 1 % topical gel 4 gm TOP QID PRN #300 gm MDD 16G 05/29/19 07/18/19 Rx to any one affected joint hydroxychloroquine 200 mg tablet 200 mg PO QAM #30 tab 06/08/19 07/18/19 Rx prednisone 10 mg tablet 10 mg PO QAM #90 tab 06/14/19 07/18/19 Rx midodrine 5 mg tablet 5 mg PO TID #90 tab 07/07/19 07/18/19 Rx oxycodone 10 mg tablet 10 mg PO BID #60 tab 07/11/19 07/18/19 Rx cefdinir 300 mg PO BID 07/18/19 07/18/19 History prazosin 1 mg PO HS 07/18/19 07/18/19 History Past Med/Surg History Medical History Adrenocortical insufficiency Allergic rhinitis Anemia of chronic disease Arteriosclerosis of coronary artery Asthma Back pain Barretts esophagus Chronic cystitis Chronic reflux esophagitis Colovaginal fistula Constipation 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 Dilated bile duct Esophageal spasm Fatigue Fibromyalgia Herpes simplex type 1 infection Hiatal hernia Hypercholesterolemia Impaired mobility and ADLs Iron deficiency anemia Leukocytosis correction (current) use of systemic steroids Long-term use of hydroxychloroquine Lumbar canal stenosis Mixed conductive and sensorineural hearing loss of left ear with restricted hearing of right ear Orthostatic hypotension Oxygen dependent Peripheral edema Polyarthritis Poor balance 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 Rheumatoid factor positive with cyclic citrullinated peptide (CCP) antibody negative Skin lesion of face Solitary pulmonary nodule Stasis ulcer Steroid-induced osteopenia Tension headache Urinary incontinence Urinary retention Vitamin D deficiency, unspecified UTI (urinary tract infection) Rheumatoid arthritis Chronic back pain Depression (03/10/13) Major depressive disorder, recurrent episode with anxious distress Acute gastritis (03/23/12) Cholecystectomy (03/10/13) Colostomy present Diabetes mellitus Diverticula of colon Falls frequently History of colitis History of pneumonia Infected abrasion of great toe of left foot Infected abrasion of great toe of right foot Lactose intolerance Low blood pressure Pituitary adenoma (03/10/13) Slurred speech TIA (transient ischemic attack) Vasovagal syncope (03/10/13) Surgical History H/O: hysterectomy History of hip replacement History of surgical removal of pituitary gland History of surgical removal of pituitary gland Hx of cholecystectomy Family History Grandmother Breast cancer Other Cancer Diabetes Gallbladder disease Heart disease Hypertension Seizure Social History Preferred Language: Cymraes Communication Ability: Effective Visual Impairment: No Limitations Hearing Ability: Hard of Hearing Paint Dipper Required: No Beliefs That Will Affect Care: Hinduism Hinduism Beliefs: shinto marital status: / Current Living Situation: Alone Current Living Situation Comment: receives home health, has caregivers until 1999 Other Information That Helps Us Care for You: No Feels Safe at Home: Yes Safety Concerns: Feels Safe At This Time Smoking Status: Never smoker Tobacco Type: cigarettes ; Second Hand Exposure: No ; Hx Alcohol Use: No Hx Substance Use: No Review of Systems Review of Systems: All systems reviewed & are unremarkable except as noted in HPI & below Physical Exam Physical Exam: Vitals noted and within normal limits GENERAL: Awake, alert to person, place, and time, nontoxic-appearing, in no distress. HENT: Normocephalic, atraumatic. Mucus membranes appear dry. EYES: Normal conjunctiva. Sclera non-icteric. EOMI. NECK: Supple. Full range of motion. No JVD. RESPIRATORY: Clear to auscultation. Normal work of breathing. CARDIAC: Regular rate, normal rhythm. Extremities warm and well perfused, ABDOMEN: Soft, non-distended. No tenderness to palpation in all four quadrants. No rebound or guarding. No masses. Bowel sounds are normal. LOWER EXTREMITIES: Inspection of calves reveal equal size bilaterally. They are non-tender. No edema. No discoloration. NEURO: No gross focal motor deficits noted. Sensation in tact. CN II-XII grossly in tact. Speech is slow but not slurred. SKIN: Rash not present. No jaundice noted. PSYCH: Appropriate mood and affect. Cooperative. Daughter is present at the bedside. Exam as done by Nicole Tarango MD, Framing Manager. Results & Data Vital Signs (Past 12 Hours) Vital Signs Temp Pulse Pulse Resp BP BP Pulse Ox 07/18/19 21:35 94 H 18 118/68 97 07/18/19 19:23 96 07/18/19 18:54 37.2 C 96 H 18 136/73 96 Laboratory Results 07/18/19 07/18/19 07/18/19 Range/Units 20:51 19:54 19:54 WBC 12.70 H (4.8-10.8) K/uL RBC 3.61 L (4.2-5.4) M/uL Hgb 9.7 L (12.0-16.0) g/dL Hct 32.1 L (37-47) % MCV 88.9 (80-100) fL MCH 26.9 (25-34) pg MCHC 30.2 L (32-36) g/dL RDW Std Deviation 52.1 H (36.4-46.3) fL RDW Coeff of Omar 16.0 H (11.5-14.5) % Plt Count 264 (130-400) K/uL MPV 9.2 (7.4-10.4) fL Immature Gran % (Auto) 0.6 % Neut % (Auto) 78.4 % Lymph % (Auto) 11.4 % [place] % (Auto) 8.5 % Eos % (Auto) 0.9 % Baso % (Auto) 0.2 % Immature Gran # (Auto) 0.07 H (0.00-0.02) K/uL Neut # (Auto) 9.96 H (1.4-6.5) K/uL Lymph # (Auto) 1.45 (1.2-3.4) K/uL [place] # (Auto) 1.08 H (0.11-0.59) K/uL Eos # (Auto) 0.12 (0-0.5) K/uL Baso # (Auto) 0.02 (0-0.2) K/uL Sodium 142 (136-145) mmol/L Potassium 4.1 (3.5-5.1) mmol/L Chloride 106 (98-107) mmol/L Carbon Dioxide 30 (21-32) mmol/L Anion Gap 6.0 (3-11) BUN 14 (7-18) mg/dl Creatinine 0.95 (0.6-1.2) mg/dl Est Cr Clr Drug Dosing Not Reportable Est GFR ( Amer) 62.9 Est GFR (Non-Af Amer) 54.2 BUN/Creatinine Ratio 14.3 (10-20) Glucose 99 (70-99) mg/dl Calcium 9.1 (8.5-10.1) mg/dl Total Bilirubin 0.2 (0.2-1) mg/dl AST 14 L (15-37) U/L ALT 27 (12-78) U/L Alkaline Phosphatase 102 (45-117) U/L Total Protein 6.7 (6.4-8.2) gm/dl Albumin 3.3 L (3.4-5.0) gm/dl Globulin 3.4 (2.5-4.0) gm/dl Albumin/Globulin Ratio 1.0 (0.9-2) Urine Color Dark Yellow Urine Appearance Clear (Clear) Urine pH 6.5 (4.5-7.5) Ur Specific Levels 1.021 (1.000-1.030) Urine Protein Negative (Negative) Urine Glucose (UA) Negative (Negative) Urine Ketones Trace H (Negative) Urine Blood Negative (Negative) Urine Nitrite Positive A (Negative) Urine Bilirubin Negative (Negative) Urine Urobilinogen Negative (Negative) Ur Leukocyte Esterase 1+ H (Negative) Urine WBC (Auto) 1-5 (0-5) /hpf Urine RBC (Auto) 0-4 (0-4) /hpf U Hyaline Cast (Auto) 10-30 H (0-5) /lpf U Epithel Cells (Auto) >30 H (0-5) /lpf Urine Bacteria (Auto) 3+ H (Negative) Ur Renal Epithelial Cell Not Reportable Supervising Physician Co-Signing Physician Notes Patient was seen and examined by me personally. I reviewed the chart, the orders and discussed the case in detail with Dr. Nicole Tarango MD . I read this H&P and agree with its contents to entirety. PG Care Time/CCT Total # of Minutes Spent Total Time Spent with Patient: Total time spent is greater than 50% in coordination of care (as documented) at patient's floor/unit and/or counseling patient: Resident Activity Tracking Resident Involvement: Resident Care Provided Care Provided: Adult Hospital Medicine
[2019-07-19] MEDS ORDERED: DICLOFENAC SOD 1% GEL 100 GM TUBE EXT PRN (00:37)
[2019-07-19] MEDS ORDERED: ONDANSETRON 8 MG TABLET PO PRN (00:37)
[2019-07-19] MEDS ORDERED: FLUTICASONE PROPIONATE NA SPR 16 GM BTL PRN (00:37)
[2019-07-19] MEDS ORDERED: NITROGLYCERIN SL 0.4 MG/TAB TAB SL PRN (00:37)
[2019-07-19] MEDS ORDERED: LIDOCAINE 4% CREAM 15 GM TUBE EXT PRN (00:37)
[2019-07-19] MEDS ORDERED: PATIENT'S HEIGHT AND/OR WEIGHT NEEDED SCH (01:00)
[2019-07-19] MEDS: OXYCODONE HCL IR 5 MG TAB (IMMEDIATE RELEASE) PO SCH ×3 (01:12→20:13)
[2019-07-19] MEDS: QUETIAPINE FUMARATE 200 MG TAB PO SCH ×2 (01:40→20:14)
[2019-07-19] MEDS: PRAZOSIN HCL 1 MG CAP PO SCH ×2 (01:40→20:14)
[2019-07-19] MEDS: MIDODRINE HCL 2.5 MG TAB PO SCH ×4 (01:41→20:15)
[2019-07-19] MEDS: GABAPENTIN 300 MG CAP PO SCH ×4 (01:41→20:15)
[2019-07-19] MEDS ORDERED: INFLUENZA VACCINE HIGH DOSE 65+ 0.5 ML SYR IM ONE (05:45)
[2019-07-19] MEDS ORDERED: INFLUENZA ADMINISTRATION CHARGE ONE (05:45)
[2019-07-19] MEDS: LEVOTHYROXINE SODIUM 88 MCG TABLET PO SCH (06:10)
[2019-07-19] MEDS: ENOXAPARIN INJ 40 MG/0.4 ML SYR SQ SCH ×2 (06:17→06:18)
[2019-07-19] MEDS: PANTOprazole 40 MG TAB PO SCH (08:41)
[2019-07-19] MEDS: CEFEPIME 2,000 MG in SYRINGE 7.5 ML IV SCH ×2 (08:41→20:19)
[2019-07-19] MEDS: CLOPIDOGREL BISULFATE 75 MG TAB PO SCH (08:41)
[2019-07-19] MEDS: ATORVASTATIN 40 MG TAB PO SCH (08:42)
[2019-07-19] MEDS: DULOXETINE HCL 60 MG CAP PO SCH (08:42)
[2019-07-19] MEDS: CEROVITE ADV FORMULA TAB PO SCH (08:42)
[2019-07-19] MEDS: DULOXETINE HCL 30 MG CAP PO SCH (08:42)
[2019-07-19] MEDS: HYDROXYCHLOROQUINE SULFATE 200 MG TAB PO SCH (08:42)
[2019-07-19] MEDS: ASPIRIN 81 MG ECTAB PO SCH (08:42)
[2019-07-19] MEDS ORDERED: predniSONE 10 MG TABLET PO SCH (09:00)
[2019-07-19] MEDS ORDERED: predniSONE 10 MG TABLET PO STA (10:05)
[2019-07-19] MEDS: LACTOBACILLUS ACIDOPHILUS (FLORANEX) TAB PO SCH ×2 (12:24→16:37)
[2019-07-19] MEDS: D5NSS + 20MEQ KCL 20 MEQ/1,000 ML BAG IV SCH (14:45)
[2019-07-19] MEDS: PHENAZOPYRIDINE HCL 100 MG TAB PO PRN (16:37)
--- NOTE | 2019-07-19 20:15 | Hospitalist Progress Note ---
Date of Service July 19, 2019 Assessment & Plan (1) Acute UTI: 2nd to GNR. Has had recurrent UTIs in the past. Typically takes rotating cycle of 3 different oral antibiotics at home for UTI prophylaxis. Cont cefepime; narrow her abx once final culture has resulted. Blood cx's were not drawn in ER and likely would not be helpful at this point. Is on chronic prednisone 10mg/day (for several years to her recollection). Deserves stress-dose steroids. Increase prednisone to 40mg/day. Add IVF. May need benitez catheter if she continues with urinary retention. (2) Colostomy status: 2nd to diverticular fistula in the past. No issues. Good stool output. (3) Adrenocortical insufficiency: As noted above - increase prednisone to 40mg/day for now for stress dose purposes. Patient appears volume contracted - start D5NS with KCL at 100cc/hr. BMP am. (4) Allergic rhinitis: Cont flonase (5) Anemia of chronic disease: Hb at admission 9.7. baseline is 9-10. stable. (6) Arteriosclerosis of coronary artery: no ischemic symptoms at this time. cont asa, statin, plavix. (7) Back pain: cont oxycodone BID scheduled per home schedule. cont cymbalta. (8) Barretts esophagus: noted cont PPI (9) Chronic cystitis: rotating PO antibiotics at home for UTI prophylaxis including cefdinir, amoxicillin, and doxycycline resume these following Rx for acute UTI (10) Recurrent UTI: as above (11) Chronic diastolic heart failure: volume contracted today in midst of acute UTI and needing stress dose steroids hold diuretics hydrate w/ IVF (12) Clostridium difficile carrier: add lactinex for c. diff prophy (13) Stage III chronic kidney disease: creatinine stable at 0.9 today repeat BMP am (14) Hypothyroid: TSH 12/2018 wnl cont synthroid as is (15) Depression: cont home meds (16) Chronic respiratory failure with hypoxia: on 4 L NC at home continuously stable (17) Rheumatoid arthritis: cont prednisone cont hydroxychloroquine h/o SLE as well? no issues at this time (18) DVT prophylaxis: lovenox daily will need PT/OT in light of need for stress-dose steroids, dehydration, UTI, IV abx, IV fluids, etc -- change OBS to full admission status I certify that the inpatient services were ordered in accordance with Medicare regulations governing the order. This includes certification that hospital inpatient services are reasonable and necessary and in the case of services not specified as inpatient-only under 42 CFR 419.22(n), that they are appropriately provided as inpatient services in accordance to with the 2-midnight benchmark under 43 CFR 412.3(e) Subjective patient reports feeling very tired and fatigued. poor appetite today as well. staff report difficulty voiding - had urinary incontinence, and bladder scan shortly after showed 400cc PVR. another bladder scan late today showed 500+cc and she hadn't voided all day. Review of Systems Constitutional: + fatigue and + anorexia; no fever Respiratory: no dyspnea Cardiovascular: no chest pain, no dyspnea at rest, no orthopnea and no paroxysmal nocturnal dyspnea Gastrointestinal: + abdominal pain (suprapubic ); no nausea and no vomiting Physical Exam Constitutional: + ill appearing; no acute distress and no altered mental status ENMT: Mouth: + dry oral mucous membranes Respiratory: normal respiratory effort, lungs clear to auscultation Cardiovascular: Rate/Rhythm: regular rate and regular rhythm Heart Sounds: normal S1 and normal S2; no murmur Vessels: posterior tibial pulses present and dorsalis pedis pulses present; no JVD Extremities: no edema Gastrointestinal (Abdomen): Inspection/Auscultation: abdomen not distended Percussion/Palpation: + abdomen tender (suprapubic) and abdomen soft; no guarding, abdomen not rigid and no hepatosplenomegaly colostomy in place with brown stool Psychiatric: A+Ox3, euthymic affect Results & Data Vital Signs (Past 12 Hours) Vital Signs Temp Pulse Resp BP Pulse Ox 07/19/19 15:13 36.6 C 91 H 18 102/55 L 95 Laboratory Results Laboratory Results - last 24 hr 07/18/19 07/18/19 19:54 20:51 Sodium 142 Potassium 4.1 Chloride 106 Carbon Dioxide 30 Anion Gap 6.0 BUN 14 Creatinine 0.95 Est Cr Clr Drug Dosing Not Reportable Est GFR ( Amer) 62.9 Est GFR (Non-Af Amer) 54.2 BUN/Creatinine Ratio 14.3 Glucose 99 Calcium 9.1 Total Bilirubin 0.2 AST 14 L ALT 27 Alkaline Phosphatase 102 Total Protein 6.7 Albumin 3.3 L Globulin 3.4 Albumin/Globulin Ratio 1.0 Urine Color Dark Yellow Urine Appearance Clear Urine pH 6.5 Ur Specific [place] 1.021 Urine Protein Negative Urine Glucose (UA) Negative Urine Ketones Trace H Urine Blood Negative Urine Nitrite Positive A Urine Bilirubin Negative Urine Urobilinogen Negative Ur Leukocyte Esterase 1+ H Urine WBC (Auto) 1-5 Urine RBC (Auto) 0-4 U Hyaline Cast (Auto) 10-30 H U Epithel Cells (Auto) >30 H Urine Bacteria (Auto) 3+ H Ur Renal Epithelial Cell Not Reportable Diagnostic Findings urine cx - GNR PG Care Time/CCT Total # of Minutes Spent Total Time Spent with Patient: Total time spent is greater than 50% in coordination of care (as documented) at patient's floor/unit and/or counseling patient: (1) Back pain Back pain location: low back pain Chronicity: unspecified Back pain laterality: unspecified Sciatica presence: unspecified whether sciatica present Qualified Code(s): M54.5 - Low back pain (2) Depression Depression Type: other depression Qualified Code(s): F32.89 - Other specified depressive episodes (3) Hypothyroid Hypothyroidism type: acquired Qualified Code(s): E03.9 - Hypothyroidism, unspecified (4) Barretts esophagus Glasgow's esophagus type: without dysplasia Qualified Code(s): K22.70 - Glasgow's esophagus without dysplasia (5) Allergic rhinitis Allergic rhinitis trigger: other Allergic rhinitis seasonality: unspecified Qualified Code(s): J30.89 - Other allergic rhinitis (6) Rheumatoid arthritis Rheumatoid arthritis location: unspecified site Rheumatoid factor presence: unspecified presence Qualified Code(s): M06.9 - Rheumatoid arthritis, unspecified
[2019-07-20] MEDS: D5NSS + 20MEQ KCL 20 MEQ/1,000 ML BAG IV SCH ×3 (02:15→22:23)
[2019-07-20] MEDS: ENOXAPARIN INJ 40 MG/0.4 ML SYR SQ SCH (06:08)
[2019-07-20] MEDS: LEVOTHYROXINE SODIUM 88 MCG TABLET PO SCH (06:08)
[2019-07-20] MEDS: PHENAZOPYRIDINE HCL 100 MG TAB PO PRN (06:12)
[2019-07-20 07:04] LABS: Hematocrit (blood only) 27.9 % (37-47); Hemoglobin 8.4 g/dL (12.0-16.0); Mean Corpuscular Hemoglobin 26.5 pg (25-34); Mean Corpuscular Hgb Conc 30.1 g/dL (32-36); Mean Platelet Volume 9.6 fL (7.4-10.4); Platelet Count 232 K/uL (130-400); RDW Coefficient of Variation 15.9 % (11.5-14.5); RDW Standard Deviation 51.5 fL (36.4-46.3); Red Blood Count 3.17 M/uL (4.2-5.4); White Blood Count 10.63 K/uL (4.8-10.8)
[2019-07-20 07:41] LABS: BUN Creatinine Ratio 13.3 (10-20); Calcium 8.1 mg/dl (8.5-10.1); Creatinine Clr Calc Pharmacy 36.2 ml/min; Est GFR (Non-African American) 49.2; Potassium 3.8 mmol/L (3.5-5.1)
[2019-07-20] MEDS: ERTAPENEM SODIUM 1,000 MG in SODIUM CHLORIDE 0.9% 50 ML IV SCH (08:40)
[2019-07-20] MEDS: POLYETHYLENE (MIRALAX) 17 GM PACK PO PRN (08:42)
[2019-07-20] MEDS: DULOXETINE HCL 60 MG CAP PO SCH (08:44)
[2019-07-20] MEDS: LACTOBACILLUS ACIDOPHILUS (FLORANEX) TAB PO SCH ×3 (08:44→17:33)
[2019-07-20] MEDS: HYDROXYCHLOROQUINE SULFATE 200 MG TAB PO SCH (08:44)
[2019-07-20] MEDS: DULOXETINE HCL 30 MG CAP PO SCH (08:44)
[2019-07-20] MEDS: predniSONE 20 MG TAB PO SCH (08:45)
[2019-07-20] MEDS: GABAPENTIN 300 MG CAP PO SCH ×3 (08:45→22:19)
[2019-07-20] MEDS: CLOPIDOGREL BISULFATE 75 MG TAB PO SCH (08:45)
[2019-07-20] MEDS: CEROVITE ADV FORMULA TAB PO SCH (08:45)
[2019-07-20] MEDS: ATORVASTATIN 40 MG TAB PO SCH (08:45)
[2019-07-20] MEDS: MIDODRINE HCL 2.5 MG TAB PO SCH ×3 (08:45→22:20)
[2019-07-20] MEDS: PANTOprazole 40 MG TAB PO SCH (08:45)
[2019-07-20] MEDS: ASPIRIN 81 MG ECTAB PO SCH (08:45)
[2019-07-20] MEDS: OXYCODONE HCL IR 5 MG TAB (IMMEDIATE RELEASE) PO SCH ×2 (08:46→22:18)
--- NOTE | 2019-07-20 19:53 | Hospitalist Progress Note ---
Date of Service July 20, 2019 Assessment & Plan (1) Acute UTI: 2nd to ESBL klebsiella. Stop cefepime. Change to ertapenem 1gm daily. Plan 7 day course of ertapenem. Has had recurrent UTIs in the past. Typically takes rotating cycle of 3 different oral antibiotics at home for UTI prophylaxis. The 3 abx used on rotational basis at home would not have helped her with this UTI. In fact, she grew klebsiella in 12/2018 and it was nearly pansensitive then. Thus, it has become more resistant w/ time. Will discuss further recommendations with infectious disease. (2) Metabolic encephalopathy: 2nd to UTI - resolved (3) Adrenocortical insufficiency: Cont stress dose steroids. Plan 40mg today, then 30mg tomorrow. Cont fluids. 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 No issues. Cont bowel regimen. (5) Anemia of chronic disease: Hb at admission 9.7. baseline is 9-10. H/H modestly down today; repeat CBC again in am. (6) Arteriosclerosis of coronary artery: no ischemic symptoms at this time. cont asa, statin, plavix. (7) Back pain: cont oxycodone BID scheduled per home schedule. cont cymbalta. (8) Barretts esophagus: cont PPI (9) Chronic cystitis: rotating PO antibiotics at home for UTI prophylaxis including cefdinir, amoxicillin, and doxycycline resume these following Rx for acute UTI? will d/w ID (10) Recurrent UTI: as above (11) Chronic diastolic heart failure: compensated can likely d/c IV fluids later tonight (12) Clostridium difficile carrier: cont lactinex for c. diff prophy (13) Stage III chronic kidney disease: creatinine stable again today (14) Hypothyroid: TSH 12/2018 wnl cont synthroid as is (15) Depression: cont home meds (16) Chronic respiratory failure with hypoxia: on 4 L NC at home continuously stable no issues (17) Rheumatoid arthritis: cont prednisone cont hydroxychloroquine h/o SLE as well? (18) Allergic rhinitis: Cont flonase (19) DVT prophylaxis: lovenox daily awaiting PT/OT evals for dispo planning Subjective patient reports feeling better. more energy, better appetite. suprapubic discomfort improved. concerned that ostomy is not putting out as much stool as usual; thus, she took milk of mag today. no new complaints. Review of Systems Constitutional: + fatigue; no fever, no chills and no anorexia Respiratory: no cough and no dyspnea Cardiovascular: no chest pain Gastrointestinal: no abdominal pain, no nausea and no vomiting Physical Exam Constitutional: no acute distress, not ill appearing and no altered mental status looks better today ENMT: Mouth: + dry oral mucous membranes Respiratory: normal respiratory effort, lungs clear to auscultation Cardiovascular: Rate/Rhythm: regular rate and regular rhythm Heart Sounds: normal S1 and normal S2; no murmur Vessels: posterior tibial pulses present and dorsalis pedis pulses present; no JVD Extremities: no edema Gastrointestinal (Abdomen): normal bowel sounds, soft, nontender, no hepatosplenomegaly Inspection/Auscultation: abdomen not distended ostomy bag in place; stoma wnl; minimal brown stool present in bag Skin: + pallor Psychiatric: A+Ox3, euthymic affect Results & Data Vital Signs (Past 12 Hours) Laboratory Results - last 24 hr 07/20/19 07/20/19 06:35 06:35 WBC 10.63 RBC 3.17 L Hgb 8.4 L Hct 27.9 L MCV 88.0 MCH 26.5 MCHC 30.1 L RDW Std Deviation 51.5 H RDW Coeff of Omar 15.9 H Plt Count 232 MPV 9.6 Sodium 144 Potassium 3.8 Chloride 111 H Carbon Dioxide 28 Anion Gap 5.0 BUN 14 Creatinine 1.03 Est Cr Clr Drug Dosing 36.2 Est GFR ( Amer) 57.0 Est GFR (Non-Af Amer) 49.2 BUN/Creatinine Ratio 13.3 Glucose 134 H Calcium 8.1 L PG Care Time/CCT Total # of Minutes Spent Total Time Spent with Patient: Total time spent is greater than 50% in coordination of care (as documented) at patient's floor/unit and/or counseling patient: (1) Rheumatoid arthritis Rheumatoid arthritis location: unspecified site Rheumatoid factor presence: unspecified presence Qualified Code(s): M06.9 - Rheumatoid arthritis, unspecified (2) Back pain Back pain laterality: unspecified Back pain location: low back pain Chronicity: unspecified Sciatica presence: unspecified whether sciatica present Qualified Code(s): M54.5 - Low back pain (3) Depression Depression Type: other depression Qualified Code(s): F32.89 - Other specified depressive episodes (4) Hypothyroid Hypothyroidism type: acquired Qualified Code(s): E03.9 - Hypothyroidism, unspecified (5) Barretts esophagus Glasgow's esophagus type: without dysplasia Qualified Code(s): K22.70 - Glasgow's esophagus without dysplasia (6) Allergic rhinitis Allergic rhinitis seasonality: unspecified Allergic rhinitis trigger: other Qualified Code(s): J30.89 - Other allergic rhinitis
[2019-07-20] MEDS ORDERED: MAGNESIUM HYDROXIDE SUSP 30 ML UDC PO PRN (21:43)
[2019-07-20] MEDS: QUETIAPINE FUMARATE 200 MG TAB PO SCH (22:20)
[2019-07-20] MEDS: PRAZOSIN HCL 1 MG CAP PO SCH (22:20)
[2019-07-21] MEDS: LEVOTHYROXINE SODIUM 88 MCG TABLET PO SCH (05:30)
[2019-07-21 07:07] LABS: Hematocrit (blood only) 26.9 % (37-47); Hemoglobin 8.1 g/dL (12.0-16.0); Mean Corpuscular Hemoglobin 26.8 pg (25-34); Mean Corpuscular Hgb Conc 30.1 g/dL (32-36); Mean Corpuscular Volume 89.1 fL (80-100); Mean Platelet Volume 9.6 fL (7.4-10.4); Platelet Count 201 K/uL (130-400); RDW Coefficient of Variation 16.1 % (11.5-14.5); RDW Standard Deviation 52.2 fL (36.4-46.3); Red Blood Count 3.02 M/uL (4.2-5.4); White Blood Count 8.56 K/uL (4.8-10.8)
[2019-07-21 07:29] LABS: BUN Creatinine Ratio 10.3 (10-20); Calcium 7.7 mg/dl (8.5-10.1); Creatinine Clr Calc Pharmacy 38.8 ml/min; Est GFR (African American) 62.1; Est GFR (Non-African American) 53.6
[2019-07-21] MEDS: DULOXETINE HCL 60 MG CAP PO SCH (07:45)
[2019-07-21] MEDS: DULOXETINE HCL 30 MG CAP PO SCH (07:45)
[2019-07-21] MEDS: LACTOBACILLUS ACIDOPHILUS (FLORANEX) TAB PO SCH ×3 (07:45→17:06)
[2019-07-21] MEDS: ERTAPENEM SODIUM 1,000 MG in SODIUM CHLORIDE 0.9% 50 ML IV SCH (07:45)
[2019-07-21] MEDS: HYDROXYCHLOROQUINE SULFATE 200 MG TAB PO SCH (07:45)
[2019-07-21] MEDS: MIDODRINE HCL 2.5 MG TAB PO SCH ×3 (07:46→20:46)
[2019-07-21] MEDS: predniSONE 20 MG TAB PO SCH (07:46)
[2019-07-21] MEDS: GABAPENTIN 300 MG CAP PO SCH ×3 (07:46→20:46)
[2019-07-21] MEDS: CLOPIDOGREL BISULFATE 75 MG TAB PO SCH (07:46)
[2019-07-21] MEDS: OXYCODONE HCL IR 5 MG TAB (IMMEDIATE RELEASE) PO SCH ×2 (07:46→20:46)
[2019-07-21] MEDS: ATORVASTATIN 40 MG TAB PO SCH (07:46)
[2019-07-21] MEDS: CEROVITE ADV FORMULA TAB PO SCH (07:46)
[2019-07-21] MEDS: PANTOprazole 40 MG TAB PO SCH ×2 (07:46→20:46)
[2019-07-21] MEDS: ASPIRIN 81 MG ECTAB PO SCH (07:46)
[2019-07-21] MEDS: ENOXAPARIN INJ 40 MG/0.4 ML SYR SQ SCH (08:03)
[2019-07-21] MEDS: QUETIAPINE FUMARATE 200 MG TAB PO SCH (20:46)
[2019-07-21] MEDS: PRAZOSIN HCL 1 MG CAP PO SCH (20:47)
--- NOTE | 2019-07-21 21:01 | Hospitalist Progress Note ---
Date of Service July 21, 2019 Assessment & Plan (1) Acute UTI: 2nd to ESBL klebsiella. Day #2 ertapenem. Plan 7-day course. Has had recurrent UTIs in the past. Typically takes rotating cycle of 3 different oral antibiotics at home for UTI prophylaxis. If she returns home will need IV abx; social work aware and is arranging. (2) Metabolic encephalopathy: Resolved. 2nd to UTI. 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 No issues. Good stool output. (4) Adrenocortical insufficiency: On burst of steroids for "stress dosing." Lower dose from 40mg to 30mg tomorrow and wean over a few more days back to chronic dose of 10mg/day. (5) Allergic rhinitis: Cont flonase (6) Anemia of chronic disease: Hb at admission 9.7. baseline is 9-10. Today's Hb is 8.1. Fecal occult blood NEGATIVE. Likely some dilutional effect. Likely some drop due to blood draws. Check Fe studies am. B12/folate in the last 12 months - both normal. (7) Arteriosclerosis of coronary artery: no ischemic symptoms at this time. cont asa, statin, plavix. (8) Back pain: cont oxycodone BID scheduled per home schedule. cont cymbalta. (9) Barretts esophagus: noted cont PPI (10) Chronic cystitis: rotating PO antibiotics at home for UTI prophylaxis including cefdinir, amoxicillin, and doxycycline resume these following Rx for acute UTI? will d/w ID (11) Recurrent UTI: as above (12) Chronic diastolic heart failure: compensated usually takes lasix PRN at home cont daily weights (13) Clostridium difficile carrier: cont lactinex for c. diff prophy (14) Stage III chronic kidney disease: creatinine stable (15) Hypothyroid: TSH 12/2018 wnl cont synthroid as is (16) Depression: cont home meds (17) Chronic respiratory failure with hypoxia: on 4 L NC at home continuously stable (18) Rheumatoid arthritis: cont prednisone cont hydroxychloroquine no flares (19) DVT prophylaxis: lovenox daily I encouraged patient to consider rehab post-d/c -- no interest in such. fortunately she does have quite a bit of in-home care --- 12 hours of [facility] [employer] from 8am to 8pm. I spoke with pt's daughter - we discussed disposition. I asked daughter if the family could STAY WITH PATIENT AT NIGHT for at least a few nights to ensure safe transition to home. Daughter stated they likely could do that. likely transition home this weekend, possibly tomorrow or Wednesday Subjective I discussed w/ patient the PT/OT evals. They are recommending rehab. Despite that recommendation she said "nope- I'm going home." She has [employer] in-home assistance for 12 hours/day. They actually put her to bed at night-time and when she awakens they are at her home first thing. Still weak but improving slowly. Appetite good. Stool via ostomy better today. Denies any new complaints. Review of Systems Constitutional: + fatigue; no fever, no chills and no anorexia Respiratory: no cough and no dyspnea Cardiovascular: no chest pain, no orthopnea, no paroxysmal nocturnal dyspnea and no edema Gastrointestinal: no abdominal pain, no nausea and no vomiting Physical Exam Constitutional: no acute distress, not ill appearing and no altered mental status ENMT: Mouth: + dry oral mucous membranes Respiratory: normal respiratory effort, lungs clear to auscultation Cardiovascular: Rate/Rhythm: regular rate and regular rhythm Heart Sounds: normal S1 and normal S2; no murmur Vessels: posterior tibial pulses present and dorsalis pedis pulses present; no JVD Extremities: no edema Gastrointestinal (Abdomen): normal bowel sounds, soft, nontender, no hepatosplenomegaly Inspection/Auscultation: abdomen not distended ostomy in place; brown stool in bag Psychiatric: A+Ox3, euthymic affect Results & Data Vital Signs (Past 12 Hours) Vital Signs Temp Pulse Resp BP Pulse Ox 07/21/19 15:21 36.6 C 88 14 133/62 98 07/21/19 14:01 122/69 Laboratory Results Laboratory Results - last 24 hr 07/21/19 07/21/19 07/21/19 06:48 06:48 12:30 WBC 8.56 RBC 3.02 L Hgb 8.1 L Hct 26.9 L MCV 89.1 MCH 26.8 MCHC 30.1 L RDW Std Deviation 52.2 H RDW Coeff of Omar 16.1 H Plt Count 201 MPV 9.6 Sodium 143 Potassium 4.0 Chloride 112 H Carbon Dioxide 27 Anion Gap 4.0 BUN 10 Creatinine 0.96 Est Cr Clr Drug Dosing 38.8 Est GFR ( Amer) 62.1 Est GFR (Non-Af Amer) 53.6 BUN/Creatinine Ratio 10.3 Glucose 112 H Calcium 7.7 L Stool Occult Bld Scrn Negative PG Care Time/CCT Total # of Minutes Spent Total Time Spent with Patient: Total time spent is greater than 50% in coordination of care (as documented) at patient's floor/unit and/or counseling patient: (1) Rheumatoid arthritis Rheumatoid arthritis location: unspecified site Rheumatoid factor presence: unspecified presence Qualified Code(s): M06.9 - Rheumatoid arthritis, unspecified (2) Back pain Back pain laterality: unspecified Back pain location: low back pain Chronicity: unspecified Sciatica presence: unspecified whether sciatica present Qualified Code(s): M54.5 - Low back pain (3) Depression Depression Type: other depression Qualified Code(s): F32.89 - Other specified depressive episodes (4) Hypothyroid Hypothyroidism type: acquired Qualified Code(s): E03.9 - Hypothyroidism, unspecified (5) Barretts esophagus Glasgow's esophagus type: without dysplasia Qualified Code(s): K22.70 - Glasgow's esophagus without dysplasia (6) Allergic rhinitis Allergic rhinitis seasonality: unspecified Allergic rhinitis trigger: other Qualified Code(s): J30.89 - Other allergic rhinitis
[2019-07-22] MEDS: LEVOTHYROXINE SODIUM 88 MCG TABLET PO SCH (05:58)
[2019-07-22] MEDS: ENOXAPARIN INJ 40 MG/0.4 ML SYR SQ SCH (06:05)
[2019-07-22 07:12] LABS: BUN Creatinine Ratio 11.5 (10-20); Calcium 8.3 mg/dl (8.5-10.1); Est GFR (African American) 66.2; Est GFR (Non-African American) 57.1; Potassium 4.2 mmol/L (3.5-5.1)
[2019-07-22 07:15] LABS: Ferritin 42.3 ng/ml (8-388)
[2019-07-22] MEDS: ERTAPENEM SODIUM 1,000 MG in SODIUM CHLORIDE 0.9% 50 ML IV SCH (07:59)
[2019-07-22] MEDS: DULOXETINE HCL 60 MG CAP PO SCH (08:07)
[2019-07-22] MEDS: DULOXETINE HCL 30 MG CAP PO SCH (08:07)
[2019-07-22] MEDS: ATORVASTATIN 40 MG TAB PO SCH (08:07)
[2019-07-22] MEDS: HYDROXYCHLOROQUINE SULFATE 200 MG TAB PO SCH (08:07)
[2019-07-22] MEDS: ASPIRIN 81 MG ECTAB PO SCH (08:07)
[2019-07-22] MEDS: CLOPIDOGREL BISULFATE 75 MG TAB PO SCH (08:08)
[2019-07-22] MEDS: GABAPENTIN 300 MG CAP PO SCH ×2 (08:08→14:22)
[2019-07-22] MEDS: CEROVITE ADV FORMULA TAB PO SCH (08:08)
[2019-07-22] MEDS: MIDODRINE HCL 2.5 MG TAB PO SCH ×2 (08:09→14:22)
[2019-07-22] MEDS: OXYCODONE HCL IR 5 MG TAB (IMMEDIATE RELEASE) PO SCH (08:09)
[2019-07-22] MEDS: PANTOprazole 40 MG TAB PO SCH (08:09)
[2019-07-22] MEDS: LACTOBACILLUS ACIDOPHILUS (FLORANEX) TAB PO SCH ×2 (08:16→12:00)
[2019-07-22] MEDS: POLYETHYLENE (MIRALAX) 17 GM PACK PO PRN (08:30)
[2019-07-22] MEDS ORDERED: FERROUS SULFATE 325 MG TAB PO SCH (09:00)
[2019-07-22] MEDS ORDERED: predniSONE 10 MG TABLET PO SCH (09:00)
[2019-07-22] MEDS ORDERED: IRON SUCROSE 200 MG in 0.9 % SODIUM CHLORIDE 100 ML IV ONE (14:00)
--- NOTE | 2019-07-26 10:48 | Discharge Summary ---
Date of Service date of admission - July 18, 2019 date of discharge - July 22, 2019 Admission HPI Per Admitting Provider This is an 88-year-old female with past medical history significant for recurrent UTIs, on chronic suppressive therapy with cefdinir, amoxicillin, Bactrim who presents with several days history of worsening dysuria and bladder spasms. Daughter is at the bedside and corroborates that patient's mentation also changed abruptly this morning. Notes confusion, patient states she has a hard time finding her words. She denies any focal weakness or facial droop. She is otherwise been eating and drinking regularly, colostomy bag is in place and no acute issues with that. Denies change in vision or headache, syncope or presyncope, chest pain or difficulty breathing. ED course: InVance given as well as Levsin, 1 L bolus, Tylenol and Zofran. Patient remains afebrile here, normotensive. Oxygenating well on room air. Labs are notable for mild leukocytosis (patient is on chronic prednisone daily), stable anemia, BMP unremarkable. Urinalysis shows positive nitrites and trace ketones. Urine cultures pending. Principal Diagnosis ESBL klebsiella UTI Discharge Exam Constitutional no acute distress, not ill appearing and no altered mental status ENMT Mouth: + dry oral mucous membranes Respiratory normal respiratory effort, lungs clear to auscultation Cardiovascular Rate/Rhythm: regular rate and regular rhythm Heart Sounds: normal S1 and normal S2; no murmur Vessels: posterior tibial pulses present and dorsalis pedis pulses present; no JVD Extremities: no edema Gastrointestinal (Abdomen) normal bowel sounds, soft, nontender, no hepatosplenomegaly Inspection/Auscultation: abdomen not distended colostomy in place, left abdomen, with brown stool Skin + pallor Psychiatric A+Ox3, euthymic affect Discharge Data Allergies Allergy/AdvReac Type Severity Reaction Status Date / Time nitrofurantoin Allergy Severe HIVES Verified 07/18/19 23:00 scallops Allergy Severe THROAT Verified 07/18/19 23:00 SWELLS Cipro Allergy Intermediate HIVES Verified 06/03/18 16:34 ciprofloxacin Allergy Intermediate HIVES Verified 07/18/19 23:00 latex Allergy Intermediate RASH Verified 07/18/19 23:00 Quinolones Allergy Intermediate HIVES Verified 07/18/19 23:00 fluticasone Allergy Unknown ADVAIR-UNKN Verified 07/18/19 23:00 OWN salmeterol Allergy Unknown ADVAIR Verified 07/18/19 23:00 shellfish derived Allergy SCALLOPS-THROAT Verified 07/18/19 23:00 SWELLS celecoxib AdvReac Intermediate barretts Verified 07/18/19 23:00 esophagus lactose AdvReac Intermediate GI UPSET Verified 06/15/19 13:08 milk AdvReac Intermediate LACTOSE Verified 06/15/19 13:08 INTOLERANT morphine AdvReac Intermediate NAUSEA AND Verified 06/15/19 13:08 VOMITING Consultations PT, OT Hospital Course (1) Acute UTI: 2nd to ESBL klebsiella. Initially was on IV cefepime; the klebsiella was resistant to such, and thus she was changed to IV ertapenem. Received 3 days of IV ertapenem while hospitalized. She will complete 4 more days of IV ertapenem at HOME via peripheral IV. IVs can be removed after her dose on 07/26/2019. She made clinical improvement once she was on IV ertapenem. Has had recurrent UTIs in the past. Typically takes a rotating cycle of cefdinir, amoxicillin, and doxycycline for UTI prophylaxis. The ESBL klebsiella was resistant to all 3 agents above. I asked the patient to f/u with Dr Jose Wilson with infectious disease to discuss the pros/cons & risks/benefits of continuing the prophylactic antibiotic cycle. She was advised to f/u with him within 1-2 weeks to have this discussion. (2) Metabolic encephalopathy: Resolved. 2nd to UTI. 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 No issues while hospitalized. Cont bowel regimen. (4) Adrenocortical insufficiency: She received stress dose steroids while hospitalized. She will take a prednisone taper at home and then ultimately resume her chronic dose of 10mg/day. (5) Allergic rhinitis: Cont flonase (6) Anemia of chronic disease: Hb at admission 9.7. Discharge Hb was 8.1. baseline is 9-10. Fecal occult blood was NEGATIVE. Likely some dilutional effect. Likely some drop due to blood draws. B12/folate in the last 12 months - both normal. Iron studies were drawn - ferritin was 42, transferrin saturation was 6%. She received 1 infusion of venofer 200mg IV. I asked her to f/u with her providers that typically offer her iron infusions as she will need additional infusions. (7) Arteriosclerosis of coronary artery: no ischemic symptoms while hospitalized. cont asa, statin, plavix. (8) Back pain: CHRONIC. cont oxycodone BID per home schedule. cont cymbalta. (9) Barretts esophagus: cont PPI (10) Chronic cystitis: rotating PO antibiotics at home for UTI prophylaxis including cefdinir, amoxicillin, and doxycycline see discussion above in "acute UTI" (11) Recurrent UTI: as above (12) Chronic diastolic heart failure: compensated while hospitalized usually takes lasix PRN at home cont daily weights (13) Clostridium difficile carrier: cont lactinex for c. diff prophy (14) Stage III chronic kidney disease: Creatinine stable during the stay Cr 0.9 at discharge (15) Hypothyroid: TSH 12/2018 wnl cont synthroid as is (16) Depression: cont home meds (17) Chronic respiratory failure with hypoxia: on 4 L NC at home continuously stable no issues (18) Rheumatoid arthritis: cont prednisone cont hydroxychloroquine no flares during the visit (19) Physical deconditioning: PT/OT both advised rehab at a SNF following discharge. Patient refused such, stating she had been to rehab in the past and felt it was unhelpful. Fortunately she has [employer] for 12 hours/day. I asked her children to stay with her for a few nights after transitioning home. She will have home health and home PT/OT. Total Time Total Time Spent Total Time Spent (In Minutes): 45 Total Time Includes: Examination of the Patient, Discharge Planning and Medication Reconciliation Discharge Plan Discharge Items Patient Disposition: Home - Home Health Services Reason For Visit: Urinary Tract Infection Discharge Diagnosis: Urinary Tract Infection - improving Dehydration - resolved Condition on Discharge: Good Goals: 1. treat the urinary tract infection 2. resolve the dehydration Activity: Resume your previous activity Activity Comment: gradually increase activities over the next several days Non-emergency contact: Primary Care Provider and Specialist Call non-emergency contact if: you have any medication questions, your symptoms worsen, your pain is not controlled, your pain is worsening, your pain is unusual for you, your pain is concerning for you and you have a fever Follow-up/Referrals: Jose Wilson MD [Physician] - (see Dr Wilson within 1-2 weeks to discuss pr ophylactic antibiotics ) Nidhi Gardner MD [Primary Care Provider] - (see Dr Gardner within 1 week ) Diet: Heart Healthy Diet Texture: Dental soft (bite-sized) Addtl Attending Provider Instructions: You were admitted for urinary tract infection and dehydration. You made gradual improvement with IV antibiotics and IV fluids. Your urine culture grew a resistant bacterium but fortunately IT IS amenable to IV antibiotics. You have received 3 days of appropriate IV antibiotics for this UTI. We also discovered that you continue to have iron deficiency anemia. We checked the stool for blood and this was negative. You received a dose of IV iron on day of discharge. Recommendations - 1. You need 4 more days of IV ertapenem. Your first dose will be on 07/23/19. This will be given via your IV in your arm. Keep the IVs clean/dry/covered when showering. Do not take a tub bath while your IVs are in. 2. HOLD your cefdinir/amoxicillin/doxycycline antibiotics for now. You will need to see Dr Wilson to discuss ongoing use of oral prophylactic antibiotics. 3. Take ferrous sulfate (qjjg-slx-omfdiot iron) 325mg once daily. You may need additional IV iron in the near future. 4. Take lactinex 4 tablets three times a day for 7 days. These are probiotics to help prevent c. diff infection. 5. Prednisone taper - take as follows - * take 30mg on Wednesday, 07/23 * take 20mg on Wednesday, 07/24 * take 20mg on Wednesday, 07/25 * then resume 10mg each day starting Wednesday, 07/26 6. follow-up -- see separate section 7. continue your nasal cannula oxygen as previous 8. Return to [facility] if -- * you have fevers over 100.5 degrees * you have concerns about excessive stool output from your colostomy * you have worsening shortness of breath * you have chest pains * you have severe abdominal pain * any other concerns Pending Studies at Discharge: No Stand-Alone Forms: My [facility] Medications and DC Order Prescriptions: New ferrous sulfate 325 mg (65 mg iron) Tablet,Delayed Release (Dr/Ec) 325 mg PO DAILY Qty: 30 RF: 2 Lactobacillus acidoph-L.bulgar [Floranex] 1 million cell Tablet 4 tab PO TIDM 7 Days Qty: 84 RF: 0 Continued fexofenadine [Cora Allergy] 60 mg tablet 60 mg PO QAM RF: 0 aspirin 81 mg tablet,delayed release (DR/EC) 81 mg PO QAM RF: 0 nitroglycerin 0.4 mg tablet, sublingual 0.4 mg SL Q5M PRN (Reason: chest pain) Qty: 1 RF: 0 cholecalciferol (vitamin D3) 2,000 unit capsule 2,000 units PO QAM RF: 0 duloxetine 30 mg capsule,delayed release(DR/EC) 30 mg PO DAILY Qty: 90 RF: 1 quetiapine 200 mg tablet 200 mg PO HS Qty: 30 RF: 5 diclofenac sodium [Voltaren] 1 % gel 4 gm TOP QID MDD 16G to any one affected joint PRN (Reason: Pain) Qty: 300 RF: 3 hydroxychloroquine 200 mg tablet 200 mg PO QAM Qty: 30 RF: 5 midodrine 5 mg tablet 5 mg PO TID Qty: 90 RF: 1 oxycodone 10 mg tablet 10 mg PO BID Qty: 60 RF: 0 levothyroxine [Synthroid] 88 mcg tablet 88 mcg PO QAM RF: 0 ondansetron HCl [Zofran] 8 mg Tablet 8 mg PO Q6 PRN (Reason: Nausea) RF: 0 duloxetine [Cymbalta] 60 mg Capsule,Delayed Release(Dr/Ec) 60 mg PO QAM RF: 0 fluticasone propionate [Flonase Allergy Relief] 50 mcg/actuation [place],Suspension 2 spray INTRANASAL DAILY PRN (Reason: Congestion) RF: 0 cyanocobalamin (vitamin B-12) [Vitamin B-12] 1,000 mcg Tablet 1,000 mcg PO QAM RF: 0 Ocuvite with Lutein 1,000 unit-200 mg-60 unit-2 mg Tablet 1 tab PO QAM RF: 0 gabapentin 300 mg capsule 300 mg PO TID RF: 0 vitamin B complex Tablet 1 tab PO QAM RF: 0 polyethylene glycol 3350 [Miralax] 17 gram powder in packet 17 gm PO QAM PRN (Reason: Constipation) RF: 0 Dexilant 60 mg Capsule,Biphase Delayed Releas 60 mg PO DAILY RF: 0 Azo Urinary Pain Relief 97.5 mg Tablet 97.5 mg PO TID PRN (Reason: .URINARY PAIN) RF: 0 atorvastatin 40 mg tablet 40 mg PO QAM RF: 0 furosemide 20 mg tablet 20 mg PO DAILY PRN (Reason: Fluid Retention) RF: 0 lidocaine 4 % Cream 1 applic TOPICAL QID PRN (Reason: Pain) RF: 0 clopidogrel [Plavix] 75 mg Tablet 75 mg PO QAM RF: 0 acetaminophen [Tylenol Extra Strength] 500 mg Tablet 1,000 mg PO PM RF: 0 prazosin 1 mg capsule 1 mg PO HS RF: 0 Changed prednisone 10 mg tablet 10 mg PO DIRECTED Qty: 90 RF: 1 Discontinued doxycycline hyclate 100 mg capsule 100 mg PO DIRECTED PRN (Reason: ALTERNATING ANTIBIOTICS) Qty: 30 RF: 0 amoxicillin 500 mg capsule 500 mg PO UD Qty: 30 RF: 0 cefdinir 300 mg capsule 300 mg PO BID RF: 0 Discharge Orders: Discharge Order (Routine); Ordered 07/22/19 Ordered By: Sebas Winkler Admission Data Admit Date/Time: 07/19/19 16:22 Attending Provider: Sebas Winkler Admit Provider: Nicole Tarango Primary Care Provider: Nidhi Gardner Other Interventions: Discharge Summary Assessment (RN) Last Done: 07/22/19 16:38 DC Date/Time DO NOT enter until pt leaves facility: 07/22/19 17:30
== END 2019-07-22 17:30 | disposition home health service (06) | DRG 689 ==
LOC: ED 18:43 → 2W 18:43 → SUATTDRO 23:21 → 2W 07-19 00:08

== ENCOUNTER 2019-11-20 10:14 | Inpatient (IN) ==
[2019-11-20] MEDS ORDERED: IMIPENEM/CILASTATIN SODIUM 500 MG in DEXTROSE 5% 100 ML IV STA (10:41)
[2019-11-20] MEDS ORDERED: ACETAMINOPHEN 1,000 MG/100 ML VIAL IV STA (10:42)
[2019-11-20] MEDS ORDERED: HYDROCORTISONE SOD SUCCINATE 100 MG/2 ML VIAL IV STA (10:44)
[2019-11-20] MEDS ORDERED: SODIUM CHLORIDE 0.9% 1000ML 1,000 ML IV SCH ×2 (10:45→15:14)
[2019-11-20 10:58] LABS: Hematocrit (blood only) 32.1 % (37-47); Mean Corpuscular Hemoglobin 27.3 pg (25-34); Mean Corpuscular Hgb Conc 31.2 g/dL (32-36); Mean Corpuscular Volume 87.7 fL (80-100); Mean Platelet Volume 9.3 fL (7.4-10.4); Nucleated RBC # (auto) 0.04 K/uL (0-0); Nucleated RBC % (auto) 0.1 %; Platelet Count 264 K/uL (130-400); RDW Coefficient of Variation 16.3 % (11.5-14.5); RDW Standard Deviation 52.3 fL (36.4-46.3); Red Blood Count 3.66 M/uL (4.2-5.4); White Blood Count 31.09 K/uL (4.8-10.8)
[2019-11-20 10:59] LABS: Appearance Urine Cloudy (Clear); Bacteria Urine Automated 4+ (Negative); Bilirubin Urine Negative (Negative); Blood Urine Negative (Negative); Color Urine Dark Yellow; Epithelial Cell Urine Auto >30 /lpf (0-5); Glucose Urine UA Negative (Negative); Ketones Urine Negative (Negative); Leukocyte Esterase Urine 1+ (Negative); Nitrite Urine Positive (Negative); Protein Urine Negative (Negative); Specific Gravity Urine 1.015 (1.000-1.030); Urobilinogen Urine Negative (Negative)
--- NOTE | 2019-11-20 11:06 | XRay Report ---
XR chest 1V portable CLINICAL HISTORY: 88 years-old Female presenting with sob. TECHNIQUE: Portable upright AP view of the chest was obtained. COMPARISON: 03/21/2019. FINDINGS: Atherosclerosis of the aortic arch. Cardiac silhouette enlarged. Interval development of a dense righ t hilar and suprahilar opacity. There is also overall added density of the lateral right lung in comp arison to the left and in comparison to prior. Persistent mild elevation of the right hemidiaphragm. No large effusion or pneumothorax. Left lung and pleural space clear. Degenerative changes of the tho racic spine. Upper abdomen normal. IMPRESSION: 1. Interval development of a dense right perihilar infiltrate. 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 Recommend cross-sectional imaging for better assessment. This should be followed to resolution. The report will be called/faxed according to standard departmental protocol. ACT 112: Negative or not required by law. Electronically signed by: Teddy Lopez M.D. 11/20/2019 11:04 AM
[2019-11-20 11:07] LABS: Prothrombin Time 10.5 Seconds (9.0-12.0)
[2019-11-20] MEDS ORDERED: VANCOMYCIN CONSULT ACTIVE PRN ×2 (11:07→15:14)
[2019-11-20] MEDS ORDERED: VANCOMYCIN HCL 1,750 MG in SODIUM CHLORIDE 0.9% 500 ML IV ONE (11:07)
[2019-11-20 11:13] LABS: Basophils # (auto) 0.04 K/uL (0-0.2); Basophils % (auto) 0.1 %; Eosinophils # (auto) 0.46 K/uL (0-0.5); Eosinophils % (auto) 1.5 %; Immature Granulocytes # (auto) 0.13 K/uL (0.00-0.02); Immature Granulocytes % (auto) 0.4 %; Lymphocytes # (auto) 2.71 K/uL (1.2-3.4); Lymphocytes % (auto) 8.7 %; Monocytes # (auto) 1.92 K/uL (0.11-0.59); Monocytes % (auto) 6.2 %; Neutrophils # (auto) 25.83 K/uL (1.4-6.5); Neutrophils % (auto) 83.1 %
[2019-11-20 11:22] LABS: Albumin Level 2.8 gm/dl (3.4-5.0); BUN Creatinine Ratio 11.6 (10-20); Calcium 9.2 mg/dl (8.5-10.1); Creatinine Clr Calc Pharmacy 31.2 ml/min; Est GFR (African American) 41.5; Est GFR (Non-African American) 35.8; Potassium 3.2 mmol/L (3.5-5.1)
[2019-11-20 11:25] LABS: Cast Urine Automated >30 /lpf (0-5); Mucus Urine Present (None Prsent); RBC Urine Automated 0-4 /hpf (0-4)
[2019-11-20 11:26] LABS: Albumin Globulin Ratio 0.8 (0.9-2); Bilirubin,Total 0.4 mg/dl (0.2-1); Globulin 3.4 gm/dl (2.5-4.0); Total Protein 6.2 gm/dl (6.4-8.2); Troponin I 0.04 ng/ml (0-0.045)
[2019-11-20] MEDS ORDERED: LACTATED RINGER'S 500 ML IV ONE ×2 (11:29→12:50)
[2019-11-20 11:34] LABS: Base Excess VBG 2.3 mEq/L; HCO3 VBG 28 mmol/L; PCO2 VBG 50 mmHg (38-50); PO2 VBG 34 mmHg; pH VBG 7.37 (7.36-7.41)
[2019-11-20 11:35] LABS: Oxygen Saturation VBG < 60.0 %
[2019-11-20] MEDS ORDERED: ONDANSETRON INJ 2 MG/ML 2 ML VIAL IV STA (11:46)
--- NOTE | 2019-11-20 12:21 | CT Scan Report ---
CT head/brain wo con CLINICAL HISTORY: 88 years-old Female presenting with ams, sepsis, fever, hypoxia, possible right mary lou g mass. TECHNIQUE: Multidetector CT imaging of the head was performed without the use of intravenous contrast . IV contrast: None. One or more dose lowering techniques were used consistent with the principles of ALARA (as low as reasonably achievable), including automatic exposure control, mA or kV adjustment t o individual patient size, and/or use of iterative reconstruction. COMPARISON: 02/03/2019. CT DOSE (mGy.cm): The estimated cumulative dose is 2426.72. FINDINGS: [employer] topogram: Bilateral hip arthroplasties. Right perihilar density. Proportional ventricular and sulcal prominence, likely age-related parenchymal volume loss. No hemorr nanette. Mild periventricular and subcortical white matter hypoattenuation, nonspecific but likely indic ative of chronic small vessel ischemic change. No acute territorial infarct. No mass effect or midlin e shift. No extra-axial fluid collection. Paranasal sinuses and mastoid air cells clear. Calvarium in tact. IMPRESSION: 1. Mild chronic small vessel ischemic change. No acute intracranial abnormality. ACT 112: Negative or not required by law. Electronically signed by: Teddy Lopez M.D. 11/20/2019 12:20 PM
--- NOTE | 2019-11-20 12:29 | CT Scan Report ---
CT SCAN OF THE ABDOMEN AND PELVIS WITHOUT IV CONTRAST CLINICAL HISTORY: Sepsis. Fever. COMPARISON STUDY: Abdominal CT dated 03/21/2019. TECHNIQUE: CT scan of the abdomen and pelvis is performed from the lung bases to the proximal femora. Images are reviewed in the axial, sagittal, and coronal planes. IV contrast was not administered for this examination as per the referring clinician. Note that the examination was performed in suboptim al fashion without oral and IV contrast. The examination is degraded by streak artifact from the arms which could not be elevated above the abdomen as well as by motion artifact. A dose lowering techniq ue was utilized adhering to the principles of ALARA. CT DOSE: 2426.72 mGy.cm FINDINGS: Lung bases: The heart is normal in size and without pericardial effusion. The coronary arteries and m itral annulus are densely calcified. There are trace pleural effusions and right basilar consolidatio n. Right upper lobe consolidation is also seen on the taker down tomogram. There is a tiny hiatal hernia. Liver: The unenhanced liver is normal in size, contour, and attenuation. There is no intrahepatic sriram iary ductal dilatation. Gallbladder: Surgically absent noting clips in the gallbladder fossa. Spleen: Normal in size and attenuation. Pancreas: Atrophic and grossly unremarkable. Adrenal glands: Unremarkable. Kidneys: The unenhanced kidneys are atrophic and without hydronephrosis. There are numerous bilateral nonobstructing renal calculi which measure up to 8mm. There is no evidence of contour deforming sathya l mass lesion. Abdominal vasculature: The abdominal aorta is normal in course and caliber noting advanced atheroscle rotic calcification. Bowel: There is postoperative change from left colonic resection with left lower quadrant colostomy. A parastomal hernia is noted. There is moderate diverticulosis of the remaining colon without CT evid ence of acute diverticulitis. No bowel obstruction is seen. A portion of the normal appendix is ident ified. Peritoneum: There is no intraperitoneal free air or abdominal ascites. Lymphadenopathy: None. Pelvic viscera: Evaluation of the pelvis is significantly degraded by streak artifact from bilateral hip arthroplasties. The bladder is decompressed around a Best catheter and cannot be evaluated. The uterus is surgically absent. No adnexal lesion is seen. Skeletal structures: No lytic or blastic lesions are seen. Moderate lumbosacral spondylosis is identi fied. Bilateral hip arthroplasties are in place. There is a healed right pubic ring fracture, as well as healed left-sided rib fractures. IMPRESSION: 1. Suboptimal examination without oral and IV contrast. The examination is also degraded by streak an d motion artifact. 2. Right lower lobe consolidation is typical for pneumonia. Right upper lobe consolidation is also se en on the taker down tomogram. Clinical correlation will be required and radiographic follow-up to [facility] emergency department is recommended. 3. Trace pleural effusions. 4. There are no acute infectious or inflammatory findings in the abdomen or pelvis. 5. There is postoperative change from sigmoid colon resection with left lower quadrant colostomy. No bowel obstruction is identified. 6. A parastomal hernia is noted. 7. There is moderate diverticulosis of the remaining colon without CT evidence of acute diverticuliti s. 8. Bilateral nephrolithiasis. 9. Additional findings as above. ACT 112: Negative or not required by law. Electronically signed by: Bennett Huertas M.D. 11/20/2019 12:28 PM
--- NOTE | 2019-11-20 12:32 | CT Scan Report ---
CT chest wo con CLINICAL HISTORY: Sepsis, fever, hypoxia, possible lung mass. COMPARISON STUDY: CT scan dated May 16, 2016, chest x-ray dated November 20, 2019 CT DOSE: TECHNIQUE: CT of the thorax was performed from the thoracic inlet to the lung bases. Images are revi ewed in the axial, sagittal, and coronal planes. IV contrast was not administered for this examinatio n. A dose lowering technique was utilized adhering to the principles of ALARA. FINDINGS: Thyroid: The thyroid is not well visualized Thoracic aorta: The thoracic aorta is normal in course and caliber, noting standard 3 vessel arch kiko shannon. Heart: There are coronary artery calcifications. Lungs and pleural spaces: There is an azygos fissure. There are areas of parenchymal consolidation wi thin the azygos lobe, right upper lobe, and right lower lobe. The findings are suggestive of a pneumo анна. Imaging subsequent to treatment is recommended in follow-up. There are no significant pleural ef fusions. There is a stable 3 mm left apical pulmonary nodule Mediastinum: There is no evidence of pathologic mediastinal lymphadenopathy Nayana: There are mildly prominent right hilar lymph nodes, likely reactive Axilla: There is no evidence of pathologic axillary lymphadenopathy Upper abdomen: Partially visualized upper abdominal viscera is within normal limits. Skeletal structures: There are no lytic or blastic osseous lesions. IMPRESSION: 1. Extensive right lung airspace opacities, involving the right upper lobe, azygous lobe, and right l ower lobe. The findings are typical for a pneumonia. Imaging subsequent to treatment is recommended i n follow-up. ACT 112: Negative or not required by law. Electronically signed by: Fredy Boyd M.D. 11/20/2019 12:30 PM
--- NOTE | 2019-11-20 12:52 | Critical Care Consultation ---
Date of Consultation November 20, 2019 Assessment & Plan (1) Severe sepsis: Reason Critically Ill: 88-year-old female with severe sepsis presumptively secondary to a right middle lobe pneumonia: Consider aspiration PLAN: Neuro: Acute metabolic encephalopathy -Secondary to sepsis Resp: Acute hypoxic respiratory failure Right middle lobe pneumonia -Presumptive aspiration -Imipenem and vancomycin secondary to ESBL history CV: Hypotension -Volume resuscitation Fluids/Renal: Acute renal failure -Recently received contrast -Avoid nephrotoxic agents ID: Blood cultures sent -Sputum culture GI/Nutrition: N.p.o. 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 History is obtained from the patient's daughters, patient was in her normal state of health until this morning when she was slated to visit some medical appointments and she was difficult to arouse. She was brought to the emergency department found to be febrile, hypotensive, her initial imaging demonstrated a right middle lobe pneumonia as well as probable urinary tract infection. She was started on broad-spectrum antibiotics and given crystalloid for a lactic acidosis. Additionally discussing with family they report the patient has a medical power of attorney lawyer and living will they are not on file here. The daughters report that she wants full treatment however she does not want to be kept alive on machines nor would find living in a senior care acceptable. Accordingly we discussed risks and benefits of full aggressive heroic cardiopulmonary resuscitation in event of cardiac arrest. It was determined that the patient would not want to undergo such heroic measures. The patient's daughter reported that her hospitalizations are increasing in frequency as well as duration. She is also not returning back to her normal state of health after the subsequent hospitalizations. It appears she is having continued decline of her functional status. Allergies Allergy/AdvReac Type Severity Reaction Status Date / Time nitrofurantoin Allergy Severe HIVES Verified 11/20/19 10:54 scallops Allergy Severe THROAT Verified 11/20/19 10:54 SWELLS Cipro Allergy Intermediate HIVES Verified 06/03/18 16:34 ciprofloxacin Allergy Intermediate HIVES Verified 11/20/19 10:54 latex Allergy Intermediate RASH Verified 11/20/19 10:54 Quinolones Allergy Intermediate HIVES Verified 11/20/19 10:54 fluticasone Allergy Unknown ADVAIR-UNKN Verified 11/20/19 10:54 OWN salmeterol Allergy Unknown ADVAIR Verified 11/20/19 10:54 shellfish derived Allergy SCALLOPS-THROAT Verified 11/20/19 10:54 SWELLS celecoxib AdvReac Intermediate barretts Verified 11/20/19 10:54 esophagus lactose AdvReac Intermediate GI UPSET Verified 11/20/19 10:54 milk AdvReac Intermediate LACTOSE Verified 11/20/19 10:54 INTOLERANT morphine AdvReac Intermediate NAUSEA AND Verified 11/20/19 10:54 VOMITING Home Medications Home Medications Medication Instructions Recorded Confirmed Type aspirin 81 mg tablet,delayed 81 mg PO QAM 07/07/18 11/20/19 History release cholecalciferol (vitamin D3) 50 2,000 units PO QAM 07/07/18 11/20/19 History mcg (2,000 unit) capsule fexofenadine 60 mg tablet 60 mg PO QAM tab 07/07/18 11/20/19 History nitroglycerin 0.4 mg sublingual 0.4 mg SL Q5M PRN #1 tab 07/07/18 11/20/19 Rx tablet duloxetine [Cymbalta] 60 mg PO QAM 08/10/18 11/20/19 History fluticasone propionate [Flonase 2 spray INTRANASAL DAILY PRN 08/10/18 11/20/19 History Allergy Relief] ondansetron HCl [Zofran] 8 mg PO Q6 PRN 08/10/18 11/20/19 History Ocuvite with Lutein 1 tab PO QAM 08/31/18 11/20/19 History cyanocobalamin (vitamin B-12) 1,000 mcg PO QAM 08/31/18 11/20/19 History [Vitamin B-12] gabapentin 300 mg PO TID 09/26/18 11/20/19 History polyethylene glycol 3350 [Miralax] 17 gm PO QAM PRN 09/26/18 11/20/19 History vitamin B complex 1 tab PO QAM 09/26/18 11/20/19 History Azo Urinary Pain Relief 97.5 mg PO TID PRN 11/07/18 11/20/19 History acetaminophen [Tylenol Extra 1,000 mg PO PM 01/03/19 11/20/19 History Strength] levothyroxine 88 mcg tablet 88 mcg PO QAM 03/28/19 11/20/19 History clopidogrel [Plavix] 75 mg PO QAM 05/07/19 11/20/19 History lidocaine 1 applic TOPICAL QID PRN 05/07/19 11/20/19 History quetiapine 200 mg tablet 200 mg PO HS #30 tab 05/26/19 11/20/19 Rx hydroxychloroquine 200 mg tablet 200 mg PO QAM #30 tab 06/08/19 11/20/19 Rx prazosin 1 mg PO HS 07/18/19 11/20/19 History prednisone 10 mg PO DIRECTED #90 tab 07/22/19 11/20/19 Rx midodrine 5 mg tablet 5 mg PO TID #90 tab 08/02/19 11/20/19 Rx dexlansoprazole 60 mg 60 mg PO QAM #90 cap 08/09/19 11/20/19 Rx capsule,biphase delayed release atorvastatin 40 mg tablet 40 mg PO QAM #30 tab 08/30/19 11/20/19 Rx mirabegron 50 mg tablet,extended 50 mg PO DAILY #90 tab 09/28/19 11/20/19 Rx release 24 hr diclofenac sodium 1 % topical gel 4 gm TOP QID PRN #300 gm MDD 16G 11/01/19 11/20/19 Rx to any one affected joint conjugated estrogens 0.625 mg/gram See Rx Instructions PV DAILY #30 gm 11/17/19 11/20/19 Rx vaginal cream oxycodone 10 mg tablet 10 mg PO BID #60 tab 11/17/19 11/20/19 Rx cefdinir 300 mg PO BID 11/20/19 11/20/19 History famotidine 40 mg PO HS 11/20/19 11/20/19 History duloxetine 30 mg capsule,delayed 30 mg PO DAILY #90 cap 11/21/19 Rx release Patient History Medical History Acute gastritis (03/23/12) Adrenocortical insufficiency (Chronic) Allergic rhinitis (Chronic) Anemia of chronic disease (Chronic) Arteriosclerosis of coronary artery (Chronic) Asthma (Chronic) Back pain (Chronic) Barretts esophagus (Chronic) Cholecystectomy (03/10/13) Chronic back pain (Chronic) Chronic cystitis (Chronic) Chronic reflux esophagitis (Chronic) Colostomy present Colovaginal fistula (Chronic) Constipation (Chronic) Cyclic citrullinated peptide (CCP) antibody positive (Chronic) Depression (Chronic 03/10/13) Diabetes mellitus Dilated bile duct (Chronic) Diverticula of colon 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) Esophageal spasm (Chronic) Falls frequently Fatigue (Chronic) Fibromyalgia (Chronic) Herpes simplex type 1 infection (Chronic) Hiatal hernia (Chronic) History of colitis History of pneumonia Hypercholesterolemia (Chronic) Impaired mobility and ADLs (Chronic) Infected abrasion of great toe of left foot Infected abrasion of great toe of right foot Iron deficiency anemia (Chronic) Lactose intolerance Leukocytosis (Chronic) assisted (current) use of systemic steroids (Chronic) Long-term use of hydroxychloroquine (Chronic) Low blood pressure Lumbar canal stenosis (Chronic) Major depressive disorder, 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) Orthostatic hypotension (Chronic) Oxygen dependent (Chronic) Peripheral edema (Chronic) Pituitary adenoma (03/10/13) Polyarthritis (Chronic) Poor balance (Chronic) 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) Rheumatoid factor positive with cyclic citrullinated peptide (CCP) antibody negative (Chronic) Skin lesion of face (Chronic) Slurred speech Solitary pulmonary nodule (Chronic) Stasis ulcer (Chronic) Steroid-induced osteopenia (Chronic) Tension headache (Chronic) TIA (transient ischemic attack) Urinary incontinence (Chronic) Urinary retention (Chronic) UTI (urinary tract infection) (Resolved) Vasovagal syncope (03/10/13) Vitamin D deficiency, unspecified (Chronic) Surgical History H/O: hysterectomy History of hip replacement History of surgical removal of pituitary gland History of surgical removal of pituitary gland Hx of cholecystectomy Family History Grandmother Breast cancer Other Cancer Diabetes Gallbladder disease Heart disease Hypertension Seizure Social History Preferred Language: Georgian Communication Ability: Effective Visual Impairment: No Limitations Hearing Ability: Hard of Hearing Wheelchair Driver Required: No Beliefs That Will Affect Care: Tenriism Tenriism Beliefs: mandaeism marital status: / Current Living Situation: Alone Current Living Situation Comment: has caretakers during day Other Information That Helps Us Care for You: No Feels Safe at Home: Yes Safety Concerns: Feels Safe At This Time Smoking Status: Never smoker Tobacco Type: cigarettes ; Second Hand Exposure: No ; Hx Alcohol Use: No Hx Substance Use: No Review of Systems Review of Systems: Unobtainable due to cognitive status Physical Exam Physical Exam: General: Elderly female marginally responsive to voice and tactile stimuli I have reviewed the recorded vital signs Neurological: RASS score: -1, Moves all 4 extremities, Psychological: Glascow Coma Scale: Eyes: 3, Verbal 3, Motor 6, Total 12 follows simple commands, no two-step commands are able to be followed Eyes: Pupils are equal, round and reactive to light, anicteric sclera. Symmetrical lids. HENT: Oropharynx Clear, moist Mucous Membranes. Neck: Supple. Symmetric. trachea midline. No thyromegaly. Cardiovascular: Normal peripheral perfusion. Distal pulses and capillary refill intact. No JVD. Respiratory: Respirations are non-labored, no accessory muscle use. Breath sounds are equal. No respiratory distress Gastrointestinal: Soft. Non-distended. Dark brown stool coming from ileostomy Lymphatic: No cervical lymphadenopathy. Musculoskeletal: No deformity. No clubbing nor cyanosis. Results & Data ([facility]) Vital Signs (Past 12 Hours) Vital Signs Temp Pulse Pulse Resp BP BP Pulse Ox 11/20/19 12:40 108 H 22 89/39 L 93 11/20/19 12:31 110 H 20 92 11/20/19 12:30 110 H 21 88/42 L 92 11/20/19 12:24 112 H 23 88/40 L 93 11/20/19 12:23 112 H 18 88/40 L 91 11/20/19 12:16 113 H 19 92 11/20/19 12:00 112 H 22 96/39 L 92 11/20/19 11:52 37.5 C 11/20/19 11:31 113 H 24 94 11/20/19 11:30 112 H 23 108/46 L 94 11/20/19 11:01 119 H 21 95/55 L 94 11/20/19 11:00 117 H 16 11/20/19 10:50 39.3 C H 113 H 22 110/52 L 93 11/20/19 10:46 124 H 22 94 11/20/19 10:45 124 H 20 110/52 L 94 11/20/19 10:30 127 H 22 88 L 11/20/19 10:27 133 H 16 134/67 90 11/20/19 10:25 132 H 18 89 L 11/20/19 10:23 133 H 24 211/195 H 91 Laboratory Results 11/20/19 11/20/19 11/20/19 Range/Units 17:23 17:23 16:05 WBC (4.8-10.8) K/uL RBC (4.2-5.4) M/uL Hgb (12.0-16.0) g/dL Hct (37-47) % MCV (80-100) fL MCH (25-34) pg MCHC (32-36) g/dL RDW Std Deviation (36.4-46.3) fL RDW Coeff of Omar (11.5-14.5) % Plt Count (130-400) K/uL MPV (7.4-10.4) fL Immature Gran % (Auto) % Neut % (Auto) % Lymph % (Auto) % [place] % (Auto) % Eos % (Auto) % Baso % (Auto) % Immature Gran # (Auto) (0.00-0.02) K/uL Neut # (Auto) (1.4-6.5) K/uL Lymph # (Auto) (1.2-3.4) K/uL [place] # (Auto) (0.11-0.59) K/uL Eos # (Auto) (0-0.5) K/uL Baso # (Auto) (0-0.2) K/uL Absolute Nucleated RBC (0-0) K/uL Nucleated RBC % (auto) % PT (9.0-12.0) Seconds INR (0.9-1.1) VBG pH 7.38 (7.36-7.41) VBG pCO2 46 (38-50) mmHg VBG pO2 43 mmHg VBG HCO3 26 mmol/L VBG O2 Saturation 74.3 % VBG Base Excess 1.0 mEq/L Barometric Pressure 732.4 mm/Hg Sodium (136-145) mmol/L Potassium (3.5-5.1) mmol/L Chloride (98-107) mmol/L Carbon Dioxide (21-32) mmol/L Anion Gap (3-11) BUN (7-18) mg/dl Creatinine (0.6-1.2) mg/dl Est Cr Clr Drug Dosing ml/min Est GFR ( Amer) Est GFR (Non-Af Amer) BUN/Creatinine Ratio (10-20) Glucose (70-99) mg/dl POC Glucose 174 H (70-99) mg/dl Lactate 3.2 H* (0.4-2.0) mmol/L Calcium (8.5-10.1) mg/dl Total Bilirubin (0.2-1) mg/dl AST (15-37) U/L ALT (12-78) U/L Alkaline Phosphatase (45-117) U/L Troponin I (0-0.045) ng/ml Total Protein (6.4-8.2) gm/dl Albumin (3.4-5.0) gm/dl Globulin (2.5-4.0) gm/dl Albumin/Globulin Ratio (0.9-2) Lipase (73-393) U/L Procalcitonin (0-0.5) ng/ml Urine Color Urine Appearance (Clear) Urine pH (4.5-7.5) Ur Specific [place] (1.000-1.030) Urine Protein (Negative) Urine Glucose (UA) (Negative) Urine Ketones (Negative) Urine Blood (Negative) Urine Nitrite (Negative) Urine Bilirubin (Negative) Urine Urobilinogen (Negative) Ur Leukocyte Esterase (Negative) Urine WBC (Auto) (0-5) /hpf Urine RBC (Auto) (0-4) /hpf U Hyaline Cast (Auto) (0-5) /lpf U Epithel Cells (Auto) (0-5) /lpf Urine Bacteria (Auto) (Negative) Ur Renal Epithelial Cell Granular Casts (0) /lpf Urine Mucus (None Prsent) Nasal Screen MRSA (PCR) (Negative) Influenza Type A (PCR) (Neg) Influenza Type B (PCR) (Neg) 11/20/19 11/20/19 11/20/19 Range/Units 15:36 15:00 12:49 WBC (4.8-10.8) K/uL RBC (4.2-5.4) M/uL Hgb (12.0-16.0) g/dL Hct (37-47) % MCV (80-100) fL MCH (25-34) pg MCHC (32-36) g/dL RDW Std Deviation (36.4-46.3) fL RDW Coeff of Omar (11.5-14.5) % Plt Count (130-400) K/uL MPV (7.4-10.4) fL Immature Gran % (Auto) % Neut % (Auto) % Lymph % (Auto) % [place] % (Auto) % Eos % (Auto) % Baso % (Auto) % Immature Gran # (Auto) (0.00-0.02) K/uL Neut # (Auto) (1.4-6.5) K/uL Lymph # (Auto) (1.2-3.4) K/uL [place] # (Auto) (0.11-0.59) K/uL Eos # (Auto) (0-0.5) K/uL Baso # (Auto) (0-0.2) K/uL Absolute Nucleated RBC (0-0) K/uL Nucleated RBC % (auto) % PT (9.0-12.0) Seconds INR (0.9-1.1) VBG pH (7.36-7.41) VBG pCO2 (38-50) mmHg VBG pO2 mmHg VBG HCO3 mmol/L VBG O2 Saturation % VBG Base Excess mEq/L Barometric Pressure mm/Hg Sodium (136-145) mmol/L Potassium (3.5-5.1) mmol/L Chloride (98-107) mmol/L Carbon Dioxide (21-32) mmol/L Anion Gap (3-11) BUN (7-18) mg/dl Creatinine (0.6-1.2) mg/dl Est Cr Clr Drug Dosing ml/min Est GFR ( Amer) Est GFR (Non-Af Amer) BUN/Creatinine Ratio (10-20) Glucose (70-99) mg/dl POC Glucose (70-99) mg/dl Lactate 2.9 H* 4.2 H* (0.4-2.0) mmol/L Calcium (8.5-10.1) mg/dl Total Bilirubin (0.2-1) mg/dl AST (15-37) U/L ALT (12-78) U/L Alkaline Phosphatase (45-117) U/L Troponin I (0-0.045) ng/ml Total Protein (6.4-8.2) gm/dl Albumin (3.4-5.0) gm/dl Globulin (2.5-4.0) gm/dl Albumin/Globulin Ratio (0.9-2) Lipase (73-393) U/L Procalcitonin (0-0.5) ng/ml Urine Color Urine Appearance (Clear) Urine pH (4.5-7.5) Ur Specific [place] (1.000-1.030) Urine Protein (Negative) Urine Glucose (UA) (Negative) Urine Ketones (Negative) Urine Blood (Negative) Urine Nitrite (Negative) Urine Bilirubin (Negative) Urine Urobilinogen (Negative) Ur Leukocyte Esterase (Negative) Urine WBC (Auto) (0-5) /hpf Urine RBC (Auto) (0-4) /hpf U Hyaline Cast (Auto) (0-5) /lpf U Epithel Cells (Auto) (0-5) /lpf Urine Bacteria (Auto) (Negative) Ur Renal Epithelial Cell Granular Casts (0) /lpf Urine Mucus (None Prsent) Nasal Screen MRSA (PCR) Negative (Negative) Influenza Type A (PCR) (Neg) Influenza Type B (PCR) (Neg) 11/20/19 11/20/19 11/20/19 Range/Units 11:23 11:14 10:45 WBC (4.8-10.8) K/uL RBC (4.2-5.4) M/uL Hgb (12.0-16.0) g/dL Hct (37-47) % MCV (80-100) fL MCH (25-34) pg MCHC (32-36) g/dL RDW Std Deviation (36.4-46.3) fL RDW Coeff of Omar (11.5-14.5) % Plt Count (130-400) K/uL MPV (7.4-10.4) fL Immature Gran % (Auto) % Neut % (Auto) % Lymph % (Auto) % [place] % (Auto) % Eos % (Auto) % Baso % (Auto) % Immature Gran # (Auto) (0.00-0.02) K/uL Neut # (Auto) (1.4-6.5) K/uL Lymph # (Auto) (1.2-3.4) K/uL [place] # (Auto) (0.11-0.59) K/uL Eos # (Auto) (0-0.5) K/uL Baso # (Auto) (0-0.2) K/uL Absolute Nucleated RBC (0-0) K/uL Nucleated RBC % (auto) % PT (9.0-12.0) Seconds INR (0.9-1.1) VBG pH 7.37 (7.36-7.41) VBG pCO2 50 (38-50) mmHg VBG pO2 34 mmHg VBG HCO3 28 mmol/L VBG O2 Saturation < 60.0 % VBG Base Excess 2.3 mEq/L Barometric Pressure 732.6 mm/Hg Sodium (136-145) mmol/L Potassium (3.5-5.1) mmol/L Chloride (98-107) mmol/L Carbon Dioxide (21-32) mmol/L Anion Gap (3-11) BUN (7-18) mg/dl Creatinine (0.6-1.2) mg/dl Est Cr Clr Drug Dosing ml/min Est GFR ( Amer) Est GFR (Non-Af Amer) BUN/Creatinine Ratio (10-20) Glucose (70-99) mg/dl POC Glucose (70-99) mg/dl Lactate (0.4-2.0) mmol/L Calcium (8.5-10.1) mg/dl Total Bilirubin (0.2-1) mg/dl AST (15-37) U/L ALT (12-78) U/L Alkaline Phosphatase (45-117) U/L Troponin I (0-0.045) ng/ml Total Protein (6.4-8.2) gm/dl Albumin (3.4-5.0) gm/dl Globulin (2.5-4.0) gm/dl Albumin/Globulin Ratio (0.9-2) Lipase (73-393) U/L Procalcitonin (0-0.5) ng/ml Urine Color Dark Yellow Urine Appearance Cloudy A (Clear) Urine pH 5.0 (4.5-7.5) Ur Specific [place] 1.015 (1.000-1.030) Urine Protein Negative (Negative) Urine Glucose (UA) Negative (Negative) Urine Ketones Negative (Negative) Urine Blood Negative (Negative) Urine Nitrite Positive A (Negative) Urine Bilirubin Negative (Negative) Urine Urobilinogen Negative (Negative) Ur Leukocyte Esterase 1+ H (Negative) Urine WBC (Auto) 1-5 (0-5) /hpf Urine RBC (Auto) 0-4 (0-4) /hpf U Hyaline Cast (Auto) >30 H (0-5) /lpf U Epithel Cells (Auto) >30 H (0-5) /lpf Urine Bacteria (Auto) 4+ H (Negative) Ur Renal Epithelial Cell Not Reportable Granular Casts 1-5 H (0) /lpf Urine Mucus Present A (None Prsent) Nasal Screen MRSA (PCR) (Negative) Influenza Type A (PCR) Neg for Influ A (Neg) Influenza Type B (PCR) Neg for Influ B (Neg) 11/20/19 11/20/19 11/20/19 Range/Units 10:35 10:35 10:35 WBC (4.8-10.8) K/uL RBC (4.2-5.4) M/uL Hgb (12.0-16.0) g/dL Hct (37-47) % MCV (80-100) fL MCH (25-34) pg MCHC (32-36) g/dL RDW Std Deviation (36.4-46.3) fL RDW Coeff of Omar (11.5-14.5) % Plt Count (130-400) K/uL MPV (7.4-10.4) fL Immature Gran % (Auto) % Neut % (Auto) % Lymph % (Auto) % [place] % (Auto) % Eos % (Auto) % Baso % (Auto) % Immature Gran # (Auto) (0.00-0.02) K/uL Neut # (Auto) (1.4-6.5) K/uL Lymph # (Auto) (1.2-3.4) K/uL [place] # (Auto) (0.11-0.59) K/uL Eos # (Auto) (0-0.5) K/uL Baso # (Auto) (0-0.2) K/uL Absolute Nucleated RBC (0-0) K/uL Nucleated RBC % (auto) % PT 10.5 (9.0-12.0) Seconds INR 1.0 (0.9-1.1) VBG pH (7.36-7.41) VBG pCO2 (38-50) mmHg VBG pO2 mmHg VBG HCO3 mmol/L VBG O2 Saturation % VBG Base Excess mEq/L Barometric Pressure mm/Hg Sodium 142 (136-145) mmol/L Potassium 3.2 L (3.5-5.1) mmol/L Chloride 105 (98-107) mmol/L Carbon Dioxide 29 (21-32) mmol/L Anion Gap 8.0 (3-11) BUN 16 (7-18) mg/dl Creatinine 1.34 H (0.6-1.2) mg/dl Est Cr Clr Drug Dosing 31.2 ml/min Est GFR ( Amer) 41.5 Est GFR (Non-Af Amer) 35.8 BUN/Creatinine Ratio 11.6 (10-20) Glucose 161 H (70-99) mg/dl POC Glucose (70-99) mg/dl Lactate (0.4-2.0) mmol/L Calcium 9.2 (8.5-10.1) mg/dl Total Bilirubin 0.4 (0.2-1) mg/dl AST 21 (15-37) U/L ALT 26 (12-78) U/L Alkaline Phosphatase 88 (45-117) U/L Troponin I 0.040 (0-0.045) ng/ml Total Protein 6.2 L (6.4-8.2) gm/dl Albumin 2.8 L (3.4-5.0) gm/dl Globulin 3.4 (2.5-4.0) gm/dl Albumin/Globulin Ratio 0.8 L (0.9-2) Lipase 41 L (73-393) U/L Procalcitonin 6.33 H (0-0.5) ng/ml Urine Color Urine Appearance (Clear) Urine pH (4.5-7.5) Ur Specific [place] (1.000-1.030) Urine Protein (Negative) Urine Glucose (UA) (Negative) Urine Ketones (Negative) Urine Blood (Negative) Urine Nitrite (Negative) Urine Bilirubin (Negative) Urine Urobilinogen (Negative) Ur Leukocyte Esterase (Negative) Urine WBC (Auto) (0-5) /hpf Urine RBC (Auto) (0-4) /hpf U Hyaline Cast (Auto) (0-5) /lpf U Epithel Cells (Auto) (0-5) /lpf Urine Bacteria (Auto) (Negative) Ur Renal Epithelial Cell Granular Casts (0) /lpf Urine Mucus (None Prsent) Nasal Screen MRSA (PCR) (Negative) Influenza Type A (PCR) (Neg) Influenza Type B (PCR) (Neg) 11/20/19 11/20/19 Range/Units 10:35 10:35 WBC 31.09 H* (4.8-10.8) K/uL RBC 3.66 L (4.2-5.4) M/uL Hgb 10.0 L (12.0-16.0) g/dL Hct 32.1 L (37-47) % MCV 87.7 (80-100) fL MCH 27.3 (25-34) pg MCHC 31.2 L (32-36) g/dL RDW Std Deviation 52.3 H (36.4-46.3) fL RDW Coeff of Omar 16.3 H (11.5-14.5) % Plt Count 264 (130-400) K/uL MPV 9.3 (7.4-10.4) fL Immature Gran % (Auto) 0.4 % Neut % (Auto) 83.1 % Lymph % (Auto) 8.7 % [place] % (Auto) 6.2 % Eos % (Auto) 1.5 % Baso % (Auto) 0.1 % Immature Gran # (Auto) 0.13 H (0.00-0.02) K/uL Neut # (Auto) 25.83 H (1.4-6.5) K/uL Lymph # (Auto) 2.71 (1.2-3.4) K/uL [place] # (Auto) 1.92 H (0.11-0.59) K/uL Eos # (Auto) 0.46 (0-0.5) K/uL Baso # (Auto) 0.04 (0-0.2) K/uL Absolute Nucleated RBC 0.04 H (0-0) K/uL Nucleated RBC % (auto) 0.1 % PT (9.0-12.0) Seconds INR (0.9-1.1) VBG pH (7.36-7.41) VBG pCO2 (38-50) mmHg VBG pO2 mmHg VBG HCO3 mmol/L VBG O2 Saturation % VBG Base Excess mEq/L Barometric Pressure mm/Hg Sodium (136-145) mmol/L Potassium (3.5-5.1) mmol/L Chloride (98-107) mmol/L Carbon Dioxide (21-32) mmol/L Anion Gap (3-11) BUN (7-18) mg/dl Creatinine (0.6-1.2) mg/dl Est Cr Clr Drug Dosing ml/min Est GFR ( Amer) Est GFR (Non-Af Amer) BUN/Creatinine Ratio (10-20) Glucose (70-99) mg/dl POC Glucose (70-99) mg/dl Lactate 3.7 H* (0.4-2.0) mmol/L Calcium (8.5-10.1) mg/dl Total Bilirubin (0.2-1) mg/dl AST (15-37) U/L ALT (12-78) U/L Alkaline Phosphatase (45-117) U/L Troponin I (0-0.045) ng/ml Total Protein (6.4-8.2) gm/dl Albumin (3.4-5.0) gm/dl Globulin (2.5-4.0) gm/dl Albumin/Globulin Ratio (0.9-2) Lipase (73-393) U/L Procalcitonin (0-0.5) ng/ml Urine Color Urine Appearance (Clear) Urine pH (4.5-7.5) Ur Specific [place] (1.000-1.030) Urine Protein (Negative) Urine Glucose (UA) (Negative) Urine Ketones (Negative) Urine Blood (Negative) Urine Nitrite (Negative) Urine Bilirubin (Negative) Urine Urobilinogen (Negative) Ur Leukocyte Esterase (Negative) Urine WBC (Auto) (0-5) /hpf Urine RBC (Auto) (0-4) /hpf U Hyaline Cast (Auto) (0-5) /lpf U Epithel Cells (Auto) (0-5) /lpf Urine Bacteria (Auto) (Negative) Ur Renal Epithelial Cell Granular Casts (0) /lpf Urine Mucus (None Prsent) Nasal Screen MRSA (PCR) (Negative) Influenza Type A (PCR) (Neg) Influenza Type B (PCR) (Neg) Coding Level of Care Code Critical Care ea addt'l 30 min Diagnoses Severe sepsis A41.9; R65.20 ARF (acute renal failure) N17.9 Acute renal failure type: unspecified Abnormal CT scan, lung R91.8 Acute hypoxemic respiratory failure J96.01 Pneumonia J18.9 Laterality: right Lung location: middle lobe of lung Pneumonia type: due to unspecified organism Incomplete bladder emptying R33.9 Colostomy status 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 This is a life/limb threatening event. This includes time spent evaluating patient, direct bedside care, chart review, placing orders, interpretation of diagnostic studies, discussion with labor relations consultant s, patient, and/or family members regarding treatment decisions, as well as other required patient management activities. This time is exclusive of all separately billable procedures, and teaching time and separate from and in addition to any other critical care service time. (1) ARF (acute renal failure) Acute renal failure type: unspecified Qualified Code(s): N17.9 - Acute kidney failure, unspecified (2) Pneumonia Laterality: right Lung location: middle lobe of lung Pneumonia type: due to unspecified organism Qualified Code(s): J18.9 - Pneumonia, unspecified organism
[2019-11-20] MEDS ORDERED: NOREPINEPHRINE BIT INJ 8 MG in DEXTROSE 5% 500 ML IV SCH (13:00)
[2019-11-20 13:10] LABS: Influenza A virus by PCR Neg for Influ A (Neg); Influenza B virus by PCR Neg for Influ B (Neg)
--- NOTE | 2019-11-20 13:20 | History & Physical Report ---
Date of Service November 20, 2019 Assessment & Plan (1) Pneumonia: As noted on CXR, CT chest Concerning in that pt is on chronic abx suppressive therapy for recurrent ESBL UTI Started on vanco/primaxin in the ED, will continue ID c/s pending WBC elevated, febrile Blood cx pending Lactic acid 3.7, monitor Flu neg (2) Septic shock: Likely related to PNA as above UA also + for UTI in the setting of recurrent UTI, urine cx pending Sats WNL on 12L oxymask HypoTN in the ED, possible need for pressors (3) ARF (acute renal failure): Baseline renal function is WNL Cr 1.3 on admission Monitor with IVF (4) Hypokalemia: Replace and monitor (5) Recurrent UTI: Pt is on alternating supressive therapy, [id number] Cefidinir currently, would switch to amoxicillin on 11/26 Hx of ESBL UA + in ED, cx pending Follows with ID (6) Arteriosclerosis of coronary artery: Aspirin/plavix Has a stent in one LE and a balloon in the other (family unsure which) Pt was to have f/u for this on 11/20 (day of admission) (7) Chronic reflux esophagitis: continue home meds (8) DM 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: Family states she has been being monitored with no medication use A1c pending SSI PRN (9) Fibromyalgia: continue home meds (10) Hypercholesterolemia: Holding statin (11) Orthostatic hypotension: Midodrine at baseline (12) 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: continue home meds (13) Urinary incontinence: continue home meds (14) Hypothyroid: continue home meds (15) Chronic back pain: Holding oxycodone given AMS Continue gabapentin (16) Depression: continue home meds (17) Abnormal CT scan, lung: Pulm nodule noted on CT, reported as stable (18) Chronic respiratory failure: Baseline home O2 is 3L NC HS scheduled with PRN daytime use (19) Colostomy status: Noted (20) DVT prophylaxis: Heparin for DVT proph SCDs History of Present Illness Primary Care Provider: Nidhi Gardner MD 88 y/o F who was brought to the ED by family for concerns of AMS and fever. Daughter states that she went into pt's room this AM to wake her for an appt. She states that pt was soaking wet and her eyes were swollen shut. She states that she attempted to ask the pt questions, but that pt would only answer "mmhmm". Pt has hx of sepsis, so they brought her to the ED for eval. Family states that pt was her usual interaction yesterday. She ate without issue. Per family, she was seen by PCP on Wednesday and did note a cough. They state her lung exam reported as WNL at that time. Pt has home O2, which is for HS scheduled, but PRN during the day. She has not had SOB recently, but had been using it during the day because she felt better with it on. Family states that pt did c/o abd since coming to the ED. Pt denies current pain. Pt denies fever, SOB, chest pain, n/v/c/d, LE pain or swelling. Family states pt had a temp of 100.5 and her home O2 sat reader indicated <90%. HR at home was 130s When asked how she is feeling, pt responds "fine". Per outpt notes, pt was seen on 11/17 with PCP. She did c/o cough. Pt had recently d/c'd her GERD medication and it was thought that her cough might be due to GERD. Lung exam WNL. Pt was started on famotidine due to zantac recall with plans for recheck. Allergies Allergy/AdvReac Type Severity Reaction Status Date / Time nitrofurantoin Allergy Severe HIVES Verified 11/20/19 10:54 scallops Allergy Severe THROAT Verified 11/20/19 10:54 SWELLS Cipro Allergy Intermediate HIVES Verified 06/03/18 16:34 ciprofloxacin Allergy Intermediate HIVES Verified 11/20/19 10:54 latex Allergy Intermediate RASH Verified 11/20/19 10:54 Quinolones Allergy Intermediate HIVES Verified 11/20/19 10:54 fluticasone Allergy Unknown ADVAIR-UNKN Verified 11/20/19 10:54 OWN salmeterol Allergy Unknown ADVAIR Verified 11/20/19 10:54 shellfish derived Allergy SCALLOPS-THROAT Verified 11/20/19 10:54 SWELLS celecoxib AdvReac Intermediate barretts Verified 11/20/19 10:54 esophagus lactose AdvReac Intermediate GI UPSET Verified 11/20/19 10:54 milk AdvReac Intermediate LACTOSE Verified 11/20/19 10:54 INTOLERANT morphine AdvReac Intermediate NAUSEA AND Verified 11/20/19 10:54 VOMITING Home Medications Home Medications Medication Instructions Recorded Confirmed Type aspirin 81 mg tablet,delayed 81 mg PO QAM 07/07/18 11/20/19 History release cholecalciferol (vitamin D3) 50 2,000 units PO QAM 07/07/18 11/20/19 History mcg (2,000 unit) capsule fexofenadine 60 mg tablet 60 mg PO QAM tab 07/07/18 11/20/19 History nitroglycerin 0.4 mg sublingual 0.4 mg SL Q5M PRN #1 tab 07/07/18 11/20/19 Rx tablet duloxetine [Cymbalta] 60 mg PO QAM 08/10/18 11/20/19 History fluticasone propionate [Flonase 2 spray INTRANASAL DAILY PRN 08/10/18 11/20/19 History Allergy Relief] ondansetron HCl [Zofran] 8 mg PO Q6 PRN 08/10/18 11/20/19 History Ocuvite with Lutein 1 tab PO QAM 08/31/18 11/20/19 History cyanocobalamin (vitamin B-12) 1,000 mcg PO QAM 08/31/18 11/20/19 History [Vitamin B-12] gabapentin 300 mg PO TID 09/26/18 11/20/19 History polyethylene glycol 3350 [Miralax] 17 gm PO QAM PRN 09/26/18 11/20/19 History vitamin B complex 1 tab PO QAM 09/26/18 11/20/19 History Azo Urinary Pain Relief 97.5 mg PO TID PRN 11/07/18 11/20/19 History acetaminophen [Tylenol Extra 1,000 mg PO PM 01/03/19 11/20/19 History Strength] levothyroxine 88 mcg tablet 88 mcg PO QAM 03/28/19 11/20/19 History clopidogrel [Plavix] 75 mg PO QAM 05/07/19 11/20/19 History lidocaine 1 applic TOPICAL QID PRN 05/07/19 11/20/19 History duloxetine 30 mg capsule,delayed 30 mg PO DAILY #90 cap 05/24/19 11/20/19 Rx release quetiapine 200 mg tablet 200 mg PO HS #30 tab 05/26/19 11/20/19 Rx hydroxychloroquine 200 mg tablet 200 mg PO QAM #30 tab 06/08/19 11/20/19 Rx prazosin 1 mg PO HS 07/18/19 11/20/19 History prednisone 10 mg PO DIRECTED #90 tab 07/22/19 11/20/19 Rx midodrine 5 mg tablet 5 mg PO TID #90 tab 08/02/19 11/20/19 Rx dexlansoprazole 60 mg 60 mg PO QAM #90 cap 08/09/19 11/20/19 Rx capsule,biphase delayed release atorvastatin 40 mg tablet 40 mg PO QAM #30 tab 08/30/19 11/20/19 Rx mirabegron 50 mg tablet,extended 50 mg PO DAILY #90 tab 09/28/19 11/20/19 Rx release 24 hr diclofenac sodium 1 % topical gel 4 gm TOP QID PRN #300 gm MDD 16G 11/01/19 11/20/19 Rx to any one affected joint conjugated estrogens 0.625 mg/gram See Rx Instructions PV DAILY #30 gm 11/17/19 11/20/19 Rx vaginal cream oxycodone 10 mg tablet 10 mg PO BID #60 tab 11/17/19 11/20/19 Rx cefdinir 300 mg PO BID 11/20/19 11/20/19 History famotidine 40 mg PO HS 11/20/19 11/20/19 History Past Med/Surg History Medical History Acute gastritis (03/23/12) Adrenocortical insufficiency (Chronic) Allergic rhinitis (Chronic) Anemia of chronic disease (Chronic) Arteriosclerosis of coronary artery (Chronic) Asthma (Chronic) Back pain (Chronic) Barretts esophagus (Chronic) Cholecystectomy (03/10/13) Chronic back pain (Chronic) Chronic cystitis (Chronic) Chronic reflux esophagitis (Chronic) Colostomy present Colovaginal fistula (Chronic) Constipation (Chronic) Cyclic citrullinated peptide (CCP) antibody positive (Chronic) Depression (Chronic 03/10/13) Diabetes mellitus Dilated bile duct (Chronic) Diverticula of colon 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) Esophageal spasm (Chronic) Falls frequently Fatigue (Chronic) Fibromyalgia (Chronic) Herpes simplex type 1 infection (Chronic) Hiatal hernia (Chronic) History of colitis History of pneumonia Hypercholesterolemia (Chronic) Impaired mobility and ADLs (Chronic) Infected abrasion of great toe of left foot Infected abrasion of great toe of right foot Iron deficiency anemia (Chronic) Lactose intolerance Leukocytosis (Chronic) retirement (current) use of systemic steroids (Chronic) Long-term use of hydroxychloroquine (Chronic) Low blood pressure Lumbar canal stenosis (Chronic) Major depressive disorder, 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) Orthostatic hypotension (Chronic) Oxygen dependent (Chronic) Peripheral edema (Chronic) Pituitary adenoma (03/10/13) Polyarthritis (Chronic) Poor balance (Chronic) 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) Rheumatoid factor positive with cyclic citrullinated peptide (CCP) antibody negative (Chronic) Skin lesion of face (Chronic) Slurred speech Solitary pulmonary nodule (Chronic) Stasis ulcer (Chronic) Steroid-induced osteopenia (Chronic) Tension headache (Chronic) TIA (transient ischemic attack) Urinary incontinence (Chronic) Urinary retention (Chronic) UTI (urinary tract infection) (Resolved) Vasovagal syncope (03/10/13) Vitamin D deficiency, unspecified (Chronic) Surgical History H/O: hysterectomy History of hip replacement History of surgical removal of pituitary gland History of surgical removal of pituitary gland Hx of cholecystectomy Family History Grandmother Breast cancer Other Cancer Diabetes Gallbladder disease Heart disease Hypertension Seizure Social History Preferred Language: Tunisian Communication Ability: Effective Visual Impairment: No Limitations Hearing Ability: Hard of Hearing Dependency Case Manager Required: No Beliefs That Will Affect Care: Church Church Beliefs: jehovah's witness marital status: / Current Living Situation: Alone Current Living Situation Comment: has caretakers during day Feels Safe at Home: Yes Smoking Status: Never smoker Tobacco Type: cigarettes ; Second Hand Exposure: No ; Hx Alcohol Use: No Hx Substance Use: No Review of Systems Review of Systems: Pertinent positives and negatives reviewed in HPI--all others negative Physical Exam Constitutional: WD/WN, vitals as above Eyes: normal visual gaston by confrontation and + anicteric sclerae Neck: normal visual inspection and trachea midline Respiratory: normal respiratory effort; no respiratory distress Auscultation: + crackles; no wheezes Cardiovascular: Rate/Rhythm: regular rate and regular rhythm Gastrointestinal (Abdomen): Inspection/Auscultation: abdomen not distended Percussion/Palpation: abdomen soft; abdomen nontender Musculoskeletal: Head/Neck/Chest: normocephalic and head atraumatic negative for edema, peripheral pulses intact Skin: no rashes, warm and dry Neurologic: awake and + confused Speech / Cognition: normal speech Psychiatric: Orientation: alert (opens eyes to communication, answers some questions but not others), oriented to person and cooperative (follows basic commands) Speech: normal rate/rhythm/volume of speech (single word answers only, but WNL) Results & Data Vital Signs (Past 12 Hours) Vital Signs Temp Pulse Pulse Resp BP BP Pulse Ox 11/20/19 12:40 108 H 22 89/39 L 93 11/20/19 12:31 110 H 20 92 11/20/19 12:30 110 H 21 88/42 L 92 11/20/19 12:24 112 H 23 88/40 L 93 11/20/19 12:23 112 H 18 88/40 L 91 11/20/19 12:16 113 H 19 92 11/20/19 12:00 112 H 22 96/39 L 92 11/20/19 11:52 37.5 C 11/20/19 11:31 113 H 24 94 11/20/19 11:30 112 H 23 108/46 L 94 11/20/19 11:01 119 H 21 95/55 L 94 11/20/19 11:00 117 H 16 11/20/19 10:50 39.3 C H 113 H 22 110/52 L 93 11/20/19 10:46 124 H 22 94 11/20/19 10:45 124 H 20 110/52 L 94 11/20/19 10:30 127 H 22 88 L 11/20/19 10:27 133 H 16 134/67 90 11/20/19 10:25 132 H 18 89 L 11/20/19 10:23 133 H 24 211/195 H 91 Diagnostic Findings CXR: R infiltrate CT chest: R PNA, 3mm pulm nodule--stable CT head: neg for acute CTAP: RLL PNA, ?RUL PNA, neg for acute abd pathology Code Status & VTE Plan Code Status Full code per family VTE Prophylaxis Plan VTE Prophylaxis will be ordered: Yes PG Care Time/CCT Total # of Minutes Spent Total Time Spent with Patient: Total time spent is greater than 50% in coordination of care (as documented) at patient's floor/unit and/or counseling patient: Coding Level of Care Code 41894 Initial Inpt Care Lvl 3 Diagnoses Pneumonia J18.9 Laterality: right Lung location: middle lobe of lung Pneumonia type: due to unspecified organism Septic shock A41.9; R65.21 ARF (acute renal failure) N17.9 Hypokalemia E87.6 Recurrent UTI N39.0 Arteriosclerosis of coronary artery I25.10 Chronic reflux esophagitis K21.0 DM 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 E11.9 Fibromyalgia M79.7 Hypercholesterolemia E78.00 Orthostatic hypotension I95.1 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 M06.00 Urinary incontinence R32 Hypothyroid E03.9 Hypothyroidism type: acquired Chronic back pain M54.9; G89.29 Depression F32.89 Depression Type: other depression Abnormal CT scan, lung R91.8 Chronic respiratory failure J96.10 Colostomy status Z93.3 DVT prophylaxis Z29.9 (1) Pneumonia Laterality: right Lung location: middle lobe of lung Pneumonia type: due to unspecified organism Qualified Code(s): J18.9 - Pneumonia, unspecified organism (2) Hypothyroid Hypothyroidism type: acquired Qualified Code(s): E03.9 - Hypothyroidism, unspecified (3) Depression Depression Type: other depression Qualified Code(s): F32.89 - Other specified depressive episodes
[2019-11-20] MEDS ORDERED: LIDOCAINE 4% CREAM 15 GM TUBE EXT PRN (15:14)
[2019-11-20] MEDS ORDERED: IMIPENEM/CILASTATIN SODIUM 500 MG in DEXTROSE 5% 100 ML IV SCH (15:14)
[2019-11-20] MEDS ORDERED: CARBOHYDRATES FOR HYPOGLYCEMIA PO PRN (15:14)
[2019-11-20] MEDS ORDERED: ICU PROTOCOL FOR HYPERGLYCEMIA PRN (15:14)
[2019-11-20] MEDS ORDERED: DEXTROSE 50% 50 ML SYRINGE IV PRN (15:14)
[2019-11-20] MEDS ORDERED: GLUCAGON FOR INJ 1 MG VIAL SQ PRN (15:14)
[2019-11-20] MEDS ORDERED: NITROGLYCERIN SL 0.4 MG/TAB TAB SL PRN (15:14)
[2019-11-20] MEDS ORDERED: DICLOFENAC SOD 1% GEL 100 GM TUBE EXT PRN (15:14)
[2019-11-20] MEDS ORDERED: VANCOMYCIN HCL 1,000 MG in SODIUM CHLORIDE 0.9% 250 ML IV SCH (15:14)
[2019-11-20] MEDS ORDERED: GLUCOSE 10 TABS/TUBE PO PRN (15:14)
[2019-11-20] MEDS ORDERED: GLUCOSE 40% GEL 15 GM TUBE PO PRN (15:14)
[2019-11-20] MEDS ORDERED: POLYETHYLENE (MIRALAX) 17 GM PACK PO PRN (15:14)
[2019-11-20] MEDS ORDERED: FLUTICASONE PROPIONATE NA SPR 16 GM BTL PRN (15:14)
[2019-11-20] MEDS: POTASSIUM CHLORIDE / WTR 10 MEQ/100 ML PLCT IV SCH ×3 (15:44→17:32)
[2019-11-20] MEDS ORDERED: ONDANSETRON 8MG OD TAB PO PRN (15:52)
[2019-11-20] MEDS ORDERED: PHENAZOPYRIDINE HCL 100 MG TAB PO PRN (15:58)
[2019-11-20] MEDS: INSULIN ASPART 100 UNITS/ML 3 ML PEN SC SCH ×2 (16:07→21:42)
--- NOTE | 2019-11-20 16:14 | XRay Report ---
XR chest 1V portable CLINICAL HISTORY: Pneumonia. COMPARISON STUDY: Chest radiograph and chest CT November 20, 2019. FINDINGS: There is no pneumothorax or pleural effusion. Extensive right lung consolidation is similar to prior exam. Cardiomegaly is unchanged. There is no evidence for pulmonary edema. No cavitation is identified. IMPRESSION: No significant change in extensive right lung consolidation suggestive of pneumonia. Pos t treatment radiographs to ensure resolution are recommended. ACT 112: Negative or not required by law. Electronically signed by: Anjel Encarnacion M.D. 11/20/2019 4:12 PM
[2019-11-20] MEDS: GABAPENTIN 300 MG CAP PO SCH ×2 (16:29→21:43)
[2019-11-20] MEDS: MIDODRINE HCL 2.5 MG TAB PO SCH ×2 (16:30→21:45)
[2019-11-20] MEDS: HEPARIN SOD 5,000 UNIT/0.5 ML VIAL SQ SCH ×3 (16:31→21:45)
[2019-11-20] MEDS ORDERED: IMIPENEM/CILASTATIN CONSULT ACTIVE PRN (16:36)
--- NOTE | 2019-11-20 16:54 | Emergency Department Note ---
Entered by Yassine Espinoza acting as a scribe for Blake Bell M.D. History of Present Illness General Chief complaint: Fever Time Seen by Provider: 11/20/19 10:29 Source: patient and family (daughter) Limitations: other (mental status) History of Present Illness Onset (ago): hour(s) (this morning) Location: head Pain Consistency: + constant Quality: + constant Associated symptoms: + cough and + other (abdominal pain, using oxygen more f requently, eyes swollen) The patient is a 88 year old female who presents to the Emergency Room with complaints of a constant fever starting this morning. The patient's daughter states the patient has been having a cough for two weeks. The daughter states the patient was fine yesterday. The daughter states the patient uses 2.5-3L oxygen at night. The daughter states the patient has been using oxygen more frequently throughout the day. The daughter states the patient was not answering questions with full sentences today. The daughter states the patient's eyes were swollen today. The daughter states the patient takes Cefdinir daily. The patient nods her head when asked if her abdomen hurts. HPI is limited secondary to mental status. The patient's daughter notes the patient is a full code. Home Medications Home Medications Medication Instructions Recorded Confirmed Type aspirin 81 mg tablet,delayed 81 mg PO QAM 07/07/18 11/20/19 History release cholecalciferol (vitamin D3) 50 2,000 units PO QAM 07/07/18 11/20/19 History mcg (2,000 unit) capsule fexofenadine 60 mg tablet 60 mg PO QAM tab 07/07/18 11/20/19 History nitroglycerin 0.4 mg sublingual 0.4 mg SL Q5M PRN #1 tab 07/07/18 11/20/19 Rx tablet duloxetine [Cymbalta] 60 mg PO QAM 08/10/18 11/20/19 History fluticasone propionate [Flonase 2 spray INTRANASAL DAILY PRN 08/10/18 11/20/19 History Allergy Relief] ondansetron HCl [Zofran] 8 mg PO Q6 PRN 08/10/18 11/20/19 History Ocuvite with Lutein 1 tab PO QAM 08/31/18 11/20/19 History cyanocobalamin (vitamin B-12) 1,000 mcg PO QAM 08/31/18 11/20/19 History [Vitamin B-12] gabapentin 300 mg PO TID 09/26/18 11/20/19 History polyethylene glycol 3350 [Miralax] 17 gm PO QAM PRN 09/26/18 11/20/19 History vitamin B complex 1 tab PO QAM 09/26/18 11/20/19 History Azo Urinary Pain Relief 97.5 mg PO TID PRN 11/07/18 11/20/19 History acetaminophen [Tylenol Extra 1,000 mg PO PM 01/03/19 11/20/19 History Strength] levothyroxine 88 mcg tablet 88 mcg PO QAM 03/28/19 11/20/19 History clopidogrel [Plavix] 75 mg PO QAM 05/07/19 11/20/19 History lidocaine 1 applic TOPICAL QID PRN 05/07/19 11/20/19 History duloxetine 30 mg capsule,delayed 30 mg PO DAILY #90 cap 05/24/19 11/20/19 Rx release quetiapine 200 mg tablet 200 mg PO HS #30 tab 05/26/19 11/20/19 Rx hydroxychloroquine 200 mg tablet 200 mg PO QAM #30 tab 06/08/19 11/20/19 Rx prazosin 1 mg PO HS 07/18/19 11/20/19 History prednisone 10 mg PO DIRECTED #90 tab 07/22/19 11/20/19 Rx midodrine 5 mg tablet 5 mg PO TID #90 tab 08/02/19 11/20/19 Rx dexlansoprazole 60 mg 60 mg PO QAM #90 cap 08/09/19 11/20/19 Rx capsule,biphase delayed release atorvastatin 40 mg tablet 40 mg PO QAM #30 tab 08/30/19 11/20/19 Rx mirabegron 50 mg tablet,extended 50 mg PO DAILY #90 tab 09/28/19 11/20/19 Rx release 24 hr diclofenac sodium 1 % topical gel 4 gm TOP QID PRN #300 gm MDD 16G 11/01/19 11/20/19 Rx to any one affected joint conjugated estrogens 0.625 mg/gram See Rx Instructions PV DAILY #30 gm 11/17/19 11/20/19 Rx vaginal cream oxycodone 10 mg tablet 10 mg PO BID #60 tab 11/17/19 11/20/19 Rx cefdinir 300 mg PO BID 11/20/19 11/20/19 History famotidine 40 mg PO HS 11/20/19 11/20/19 History Allergies Allergy/AdvReac Type Severity Reaction Status Date / Time nitrofurantoin Allergy Severe HIVES Verified 11/20/19 10:54 scallops Allergy Severe THROAT Verified 11/20/19 10:54 SWELLS Cipro Allergy Intermediate HIVES Verified 06/03/18 16:34 ciprofloxacin Allergy Intermediate HIVES Verified 11/20/19 10:54 latex Allergy Intermediate RASH Verified 11/20/19 10:54 Quinolones Allergy Intermediate HIVES Verified 11/20/19 10:54 fluticasone Allergy Unknown ADVAIR-UNKN Verified 11/20/19 10:54 OWN salmeterol Allergy Unknown ADVAIR Verified 11/20/19 10:54 shellfish derived Allergy SCALLOPS-THROAT Verified 11/20/19 10:54 SWELLS celecoxib AdvReac Intermediate barretts Verified 11/20/19 10:54 esophagus lactose AdvReac Intermediate GI UPSET Verified 11/20/19 10:54 milk AdvReac Intermediate LACTOSE Verified 11/20/19 10:54 INTOLERANT morphine AdvReac Intermediate NAUSEA AND Verified 11/20/19 10:54 VOMITING Past Med/Surg History Medical History Acute gastritis (03/23/12) Adrenocortical insufficiency (Chronic) Allergic rhinitis (Chronic) Anemia of chronic disease (Chronic) Arteriosclerosis of coronary artery (Chronic) Asthma (Chronic) Back pain (Chronic) Barretts esophagus (Chronic) Cholecystectomy (03/10/13) Chronic back pain (Chronic) Chronic cystitis (Chronic) Chronic reflux esophagitis (Chronic) Colostomy present Colovaginal fistula (Chronic) Constipation (Chronic) Cyclic citrullinated peptide (CCP) antibody positive (Chronic) Depression (Chronic 03/10/13) Diabetes mellitus Dilated bile duct (Chronic) Diverticula of colon 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) Esophageal spasm (Chronic) Falls frequently Fatigue (Chronic) Fibromyalgia (Chronic) Herpes simplex type 1 infection (Chronic) Hiatal hernia (Chronic) History of colitis History of pneumonia Hypercholesterolemia (Chronic) Impaired mobility and ADLs (Chronic) Infected abrasion of great toe of left foot Infected abrasion of great toe of right foot Iron deficiency anemia (Chronic) Lactose intolerance Leukocytosis (Chronic) 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) use of systemic steroids (Chronic) Long-term use of hydroxychloroquine (Chronic) Low blood pressure Lumbar canal stenosis (Chronic) Major depressive disorder, 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) Orthostatic hypotension (Chronic) Oxygen dependent (Chronic) Peripheral edema (Chronic) Pituitary adenoma (03/10/13) Polyarthritis (Chronic) Poor balance (Chronic) 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) Rheumatoid factor positive with cyclic citrullinated peptide (CCP) antibody negative (Chronic) Skin lesion of face (Chronic) Slurred speech Solitary pulmonary nodule (Chronic) Stasis ulcer (Chronic) Steroid-induced osteopenia (Chronic) Tension headache (Chronic) TIA (transient ischemic attack) Urinary incontinence (Chronic) Urinary retention (Chronic) UTI (urinary tract infection) (Resolved) Vasovagal syncope (03/10/13) Vitamin D deficiency, unspecified (Chronic) Surgical History H/O: hysterectomy History of hip replacement History of surgical removal of pituitary gland History of surgical removal of pituitary gland Hx of cholecystectomy Family History Grandmother Breast cancer Other Cancer Diabetes Gallbladder disease Heart disease Hypertension Seizure Social History Preferred Language: Turkish Communication Ability: Effective Visual Impairment: No Limitations Hearing Ability: Hard of Hearing 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 and A total of 10 systems reviewed and were otherwise negative Physical Exam Vital Signs Vital Signs - 24 hr 11/20/19 10:23 11/20/19 10:25 11/20/19 10:27 Temperature Temperature Source Pulse Rate 133 H 132 H 133 H Pulse Rate [Left Finger] Pulse Rate from SpO2 Sensor 130 H 132 H 133 H Respiratory Rate 24 18 16 Respiratory Effort / Characteristics Respiratory Depth Respiratory Pattern Blood Pressure 211/195 H 134/67 Blood Pressure [Left Arm] Blood Pressure Mean 205 88 Blood Pressure Mean [Left Arm] Pulse Oximetry 91 89 L 90 Oxygen Delivery Method Oxymask Oxymask Oxymask Oxygen Flow Rate 12 12 12 Sepsis Recent Fever Within 48 Hours Sepsis New/Unexplained Change in Mental Status Sepsis Action Taken by Nursing 11/20/19 10:30 11/20/19 10:45 11/20/19 10:46 Temperature Temperature Source Pulse Rate 127 H 124 H 124 H Pulse Rate [Left Finger] Pulse Rate from SpO2 Sensor 127 H 124 H 124 H Respiratory Rate 22 20 22 Respiratory Effort / Characteristics Respiratory Depth Respiratory Pattern Blood Pressure 110/52 L Blood Pressure [Left Arm] Blood Pressure Mean 68 Blood Pressure Mean [Left Arm] Pulse Oximetry 88 L 94 94 Oxygen Delivery Method Oxymask Oxymask Oxymask Oxygen Flow Rate 12 12 12 Sepsis Recent Fever Within 48 Hours Sepsis New/Unexplained Change in Mental Status Sepsis Action Taken by Nursing 11/20/19 10:50 11/20/19 11:00 11/20/19 11:01 Temperature 39.3 C H Temperature Source Rectal Pulse Rate 113 H 117 H 119 H Pulse Rate [Left Finger] Pulse Rate from SpO2 Sensor 104 H 120 H Respiratory Rate 22 16 21 Respiratory Effort / Characteristics Non-Labored Spontaneous Respiratory Depth Shallow Respiratory Pattern Regular Blood Pressure 110/52 L 95/55 L Blood Pressure [Left Arm] Blood Pressure Mean 71 59 Blood Pressure Mean [Left Arm] Pulse Oximetry 93 94 Oxygen Delivery Method Oxymask Oxymask Oxygen Flow Rate 12 12 Sepsis Recent Fever Within 48 Hours Yes Sepsis New/Unexplained Change in Mental Status Yes Sepsis Action Taken by Nursing Physician Notified 11/20/19 11:30 11/20/19 11:31 11/20/19 11:52 Temperature 37.5 C Temperature Source Oral Pulse Rate 112 H 113 H Pulse Rate [Left Finger] Pulse Rate from SpO2 Sensor 113 H 113 H Respiratory Rate 23 24 Respiratory Effort / Characteristics Respiratory Depth Respiratory Pattern Blood Pressure 108/46 L Blood Pressure [Left Arm] Blood Pressure Mean 56 Blood Pressure Mean [Left Arm] Pulse Oximetry 94 94 Oxygen Delivery Method Oxymask Oxygen Flow Rate 12 Sepsis Recent Fever Within 48 Hours Sepsis New/Unexplained Change in Mental Status Sepsis Action Taken by Nursing 11/20/19 12:00 11/20/19 12:16 11/20/19 12:23 Temperature Temperature Source Pulse Rate 112 H 113 H Pulse Rate [Left Finger] 112 H Pulse Rate from SpO2 Sensor 113 H 112 H Respiratory Rate 22 19 18 Respiratory Effort / Characteristics Respiratory Depth Respiratory Pattern Blood Pressure 96/39 L Blood Pressure [Left Arm] 88/40 L Blood Pressure Mean 56 Blood Pressure Mean [Left Arm] 56 Pulse Oximetry 92 92 91 Oxygen Delivery Method Oxymask Oxymask Oxymask Oxygen Flow Rate 12 12 12 Sepsis Recent Fever Within 48 Hours Sepsis New/Unexplained Change in Mental Status Sepsis Action Taken by Nursing 11/20/19 12:24 11/20/19 12:30 11/20/19 12:31 Temperature Temperature Source Pulse Rate 112 H 110 H 110 H Pulse Rate [Left Finger] Pulse Rate from SpO2 Sensor 112 H 110 H 110 H Respiratory Rate 23 21 20 Respiratory Effort / Characteristics Respiratory Depth Respiratory Pattern Blood Pressure 88/40 L 88/42 L Blood Pressure [Left Arm] Blood Pressure Mean 65 56 Blood Pressure Mean [Left Arm] Pulse Oximetry 93 92 92 Oxygen Delivery Method Oxymask Oxymask Oxymask Oxygen Flow Rate 12 12 12 Sepsis Recent Fever Within 48 Hours Sepsis New/Unexplained Change in Mental Status Sepsis Action Taken by Nursing 11/20/19 12:40 11/20/19 12:41 11/20/19 12:43 Temperature Temperature Source Pulse Rate 108 H 108 H 109 H Pulse Rate [Left Finger] Pulse Rate from SpO2 Sensor 107 H 108 H 109 H Respiratory Rate 22 19 19 Respiratory Effort / Characteristics Respiratory Depth Respiratory Pattern Blood Pressure 89/39 L 86/46 L Blood Pressure [Left Arm] Blood Pressure Mean 67 72 Blood Pressure Mean [Left Arm] Pulse Oximetry 93 92 95 Oxygen Delivery Method Oxymask Oxymask Oxymask Oxygen Flow Rate 12 12 12 Sepsis Recent Fever Within 48 Hours Sepsis New/Unexplained Change in Mental Status Sepsis Action Taken by Nursing 11/20/19 12:50 11/20/19 13:00 11/20/19 13:01 Temperature Temperature Source Pulse Rate 115 H 109 H 109 H Pulse Rate [Left Finger] Pulse Rate from SpO2 Sensor 114 H 110 H 109 H Respiratory Rate 21 21 19 Respiratory Effort / Characteristics Respiratory Depth Respiratory Pattern Blood Pressure 93/45 L 95/43 L Blood Pressure [Left Arm] Blood Pressure Mean 73 61 Blood Pressure Mean [Left Arm] Pulse Oximetry 97 94 94 Oxygen Delivery Method Oxymask Oxymask Oxymask Oxygen Flow Rate 12 12 12 Sepsis Recent Fever Within 48 Hours Sepsis New/Unexplained Change in Mental Status Sepsis Action Taken by Nursing 11/20/19 13:10 11/20/19 13:15 11/20/19 13:17 Temperature Temperature Source Pulse Rate 108 H 109 H 110 H Pulse Rate [Left Finger] Pulse Rate from SpO2 Sensor 109 H 109 H 110 H Respiratory Rate 20 24 21 Respiratory Effort / Characteristics Respiratory Depth Respiratory Pattern Blood Pressure 92/48 L 79/39 L 104/58 L Blood Pressure [Left Arm] Blood Pressure Mean 63 48 70 Blood Pressure Mean [Left Arm] Pulse Oximetry 93 93 94 Oxygen Delivery Method Oxymask Oxymask Oxymask Oxygen Flow Rate 12 12 12 Sepsis Recent Fever Within 48 Hours Sepsis New/Unexplained Change in Mental Status Sepsis Action Taken by Nursing 11/20/19 13:30 11/20/19 13:31 Temperature Temperature Source Pulse Rate 106 H 106 H Pulse Rate [Left Finger] Pulse Rate from SpO2 Sensor 106 H 106 H Respiratory Rate 20 19 Respiratory Effort / Characteristics Respiratory Depth Respiratory Pattern Blood Pressure 79/57 L Blood Pressure [Left Arm] Blood Pressure Mean 68 Blood Pressure Mean [Left Arm] Pulse Oximetry 95 95 Oxygen Delivery Method Oxymask Oxymask Oxygen Flow Rate 12 12 Sepsis Recent Fever Within 48 Hours Sepsis New/Unexplained Change in Mental Status Sepsis Action Taken by Nursing GENERAL: Awake, alert, fatigued-appearing, eye closed HENT: Normocephalic, atraumatic. EYES: Normal conjunctiva. Sclera non-icteric. NECK: Supple. No nuchal rigidity. RESPIRATORY: Diminished breath sounds, coarse. Mildly tachypneic. CARDIAC: Tachycardic rate. Normal rhythm. Extremities warm and well perfused. GI: Soft, non-distended. Minimal diffuse tenderness to palpation. Left-sided ostomy. RECTAL: Deferred. MUSCULOSKELETAL: Atraumatic. Chest examination reveals no tenderness. LOWER EXTREMITIES: Calves are equal size bilaterally and non-tender. NEURO: Normal sensorium. No sensory or motor deficits noted. No facial droop. SKIN: Warm and dry. No jaundice noted. Course Course 1031: The patient was evaluated in room B8, and a complete history and physical examination were performed. 1245: I discussed the patient's case with Dr. Roxie Gregg - [facility] Hospitalist. She will evaluate the patient for further management. 1249: I spoke to Dr. Schuster - [facility] Outreach Worker. He is aware of the patient's case. Administered Medications Gabapentin (Neurontin) 300 mg PO TID MEE Stop: 12/20/19 15:13 Last Admin: 11/20/19 16:29 Dose: Not Given Documented by: [id number] Heparin Sodium (Porcine) (Heparin Sodium (Porcine)) 5,000 units SQ Q8 MEE Stop: 12/20/19 15:13 Last Admin: 11/20/19 16:31 Dose: 5,000 units Documented by: [id number] Cosigned by: [id number] Norepinephrine Bitartrate 8 mg (/ Dextrose) 508 mls @ 0 mls/hr IV .Q0M MEE; Protocol Stop: 12/20/19 12:59 Last Titration: 11/20/19 16:22 Dose: 0 mcg/kg/min, 0 mls/hr Documented by: [id number] Titration: 11/20/19 16:15 Dose: 0.01 mcg/kg/min, 3.1 mls/hr Documented by: [id number] Titration: 11/20/19 15:45 Dose: 0.03 mcg/kg/min, 9.4 mls/hr Documented by: [id number] Titration: 11/20/19 15:15 Dose: 0.05 mcg/kg/min, 15.6 mls/hr Documented by: [id number] Titration: 11/20/19 14:45 Dose: 0.07 mcg/kg/min, 21.9 mls/hr Documented by: [id number] Titration: 11/20/19 13:38 Dose: 0.07 mcg/kg/min, 21.9 mls/hr Documented by: [id number] Admin: 11/20/19 13:14 Dose: 0.05 mcg/kg/min, 15.6 mls/hr Documented by: [id number] Cosigned by: [id number] Potassium Chloride (K Tuan / Wtr) 10 meq in 100 mls @ 100 mls/hr IV Q1H MEE Stop: 11/20/19 18:13 Last Admin: 11/20/19 16:33 Dose: 100 mls/hr Documented by: [id number] Infusion: 02/10/20 16:33 Dose: 100 mls/hr Documented by: [id number] Admin: 11/20/19 15:44 Dose: 100 mls/hr Documented by: [id number] Insulin Aspart (Novolog Flexpen) 0 units SC ACHS MEE Stop: 12/20/19 16:29 Last Admin: 11/20/19 16:07 Dose: 1 units Documented by: [id number] Cosigned by: [id number] Midodrine (Proamatine) 5 mg PO TID MEE Stop: 12/20/19 15:13 Last Admin: 11/20/19 16:30 Dose: Not Given Documented by: [id number] Discontinued Medications Hydrocortisone Sodium Succinate (Solu-Cortef) 100 mg IV NOW STA Stop: 11/20/19 10:45 Last Admin: 11/20/19 11:05 Dose: 100 mg Documented by: [id number] Sodium Chloride (Nss 1000ml) 1,000 mls @ 999 mls/hr IV .Q1H1M MEE Stop: 11/20/19 11:45 Last Infusion: 11/20/19 11:26 Dose: 0 mls/hr Documented by: [id number] Admin: 11/20/19 10:46 Dose: 999 mls/hr Documented by: [id number] Imipenem/Cilastatin Sodium 500 (mg/ Dextrose) 110 mls @ 100 mls/hr IV NOW STA; Protocol Stop: 11/20/19 11:46 Last Infusion: 11/20/19 12:20 Dose: 0 mls/hr Documented by: [id number] Admin: 11/20/19 11:09 Dose: 100 mls/hr Documented by: [id number] Acetaminophen (Ofirmev) 1,000 mg in 100 mls @ 400 mls/hr IV NOW STA Stop: 11/20/19 10:56 Last Infusion: 11/20/19 11:26 Dose: 0 mls/hr Documented by: [id number] Admin: 11/20/19 11:07 Dose: 400 mls/hr Documented by: [id number] Vancomycin HCl 1,750 mg/ (Sodium Chloride) 535 mls @ 200 mls/hr IV NOW ONE Stop: 11/20/19 13:47 Last Infusion: 11/20/19 16:40 Dose: 0 mls/hr Documented by: [id number] Admin: 11/20/19 12:20 Dose: 200 mls/hr Documented by: [id number] Lactated Ringer's (Lr) 500 mls @ 999 mls/hr IV .Q31M ONE Stop: 11/20/19 11:59 Last Infusion: 11/20/19 12:44 Dose: 0 mls/hr Documented by: [id number] Admin: 11/20/19 12:26 Dose: 999 mls/hr Documented by: [id number] Lactated Ringer's (Lr) 500 mls @ 999 mls/hr IV .Q31M ONE Stop: 11/20/19 13:20 Last Infusion: 11/20/19 14:04 Dose: 0 mls/hr Documented by: [id number] Admin: 11/20/19 13:11 Dose: 999 mls/hr Documented by: [id number] Sodium Chloride (Nss 1000ml) 1,000 mls @ 999 mls/hr IV .Q1H1M MEE Stop: 11/20/19 15:29 Last Infusion: 11/20/19 16:29 Dose: 0 mls/hr Documented by: [id number] Admin: 11/20/19 16:00 Dose: 999 mls/hr Documented by: [id number] Ondansetron HCl (Zofran) 4 mg IV NOW STA Stop: 11/20/19 11:47 Last Admin: 11/20/19 11:49 Dose: 4 mg Documented by: [id number] Critical Care Time Critical Care Time: Yes Total Critical Care Time: 46 I have personally spent 46 minutes of critical care time in the direct management of this patient. This includes bedside care, interpretation of diagnostic studies, and testing, discussion with consultants, patient, and family members, and other required patient management activities. This 46 minutes is in excess of all separately billable procedures. Medical Decision Making Differential Diagnosis Differential diagnosis: Etiologies such as viral syndrome, otitis, pharyngitis, pneumonia, influenza, meningitis, urinary tract infection, sepsis, bacteremia, as well as others were entertained. Medical Records Attestation: I reviewed the patient's medical records. Home Medications Current Medication List: was personally reviewed by me Laboratory Data Attestation: I reviewed the patient's lab results. Result diagrams: 11/20/19 10:35 11/20/19 10:35 Lab Results 11/20/19 11/20/19 11/20/19 Range/Units 10:35 10:35 10:35 WBC 31.09 H* (4.8-10.8) K/uL RBC 3.66 L (4.2-5.4) M/uL Hgb 10.0 L (12.0-16.0) g/dL Hct 32.1 L (37-47) % MCV 87.7 (80-100) fL MCH 27.3 (25-34) pg MCHC 31.2 L (32-36) g/dL RDW Std Deviation 52.3 H (36.4-46.3) fL RDW Coeff of Omar 16.3 H (11.5-14.5) % Plt Count 264 (130-400) K/uL MPV 9.3 (7.4-10.4) fL Immature Gran % (Auto) 0.4 % Neut % (Auto) 83.1 % Lymph % (Auto) 8.7 % Cameron % (Auto) 6.2 % Eos % (Auto) 1.5 % Baso % (Auto) 0.1 % Immature Gran # (Auto) 0.13 H (0.00-0.02) K/uL Neut # (Auto) 25.83 H (1.4-6.5) K/uL Lymph # (Auto) 2.71 (1.2-3.4) K/uL Cameron # (Auto) 1.92 H (0.11-0.59) K/uL Eos # (Auto) 0.46 (0-0.5) K/uL Baso # (Auto) 0.04 (0-0.2) K/uL Absolute Nucleated RBC 0.04 H (0-0) K/uL Nucleated RBC % (auto) 0.1 % PT 10.5 (9.0-12.0) Seconds INR 1.0 (0.9-1.1) VBG pH (7.36-7.41) VBG pCO2 (38-50) mmHg VBG pO2 mmHg VBG HCO3 mmol/L VBG O2 Saturation % VBG Base Excess mEq/L Barometric Pressure mm/Hg Sodium (136-145) mmol/L Potassium (3.5-5.1) mmol/L Chloride (98-107) mmol/L Carbon Dioxide (21-32) mmol/L Anion Gap (3-11) BUN (7-18) mg/dl Creatinine (0.6-1.2) mg/dl Est Cr Clr Drug Dosing ml/min Est GFR ( Amer) Est GFR (Non-Af Amer) BUN/Creatinine Ratio (10-20) Glucose (70-99) mg/dl Lactate 3.7 H* (0.4-2.0) mmol/L Calcium (8.5-10.1) mg/dl Total Bilirubin (0.2-1) mg/dl AST (15-37) U/L ALT (12-78) U/L Alkaline Phosphatase (45-117) U/L Troponin I (0-0.045) ng/ml Total Protein (6.4-8.2) gm/dl Albumin (3.4-5.0) gm/dl Globulin (2.5-4.0) gm/dl Albumin/Globulin Ratio (0.9-2) Lipase (73-393) U/L Procalcitonin (0-0.5) ng/ml Urine Color Urine Appearance (Clear) Urine pH (4.5-7.5) Ur Specific [place] (1.000-1.030) Urine Protein (Negative) Urine Glucose (UA) (Negative) Urine Ketones (Negative) Urine Blood (Negative) Urine Nitrite (Negative) Urine Bilirubin (Negative) Urine Urobilinogen (Negative) Ur Leukocyte Esterase (Negative) Urine WBC (Auto) (0-5) /hpf Urine RBC (Auto) (0-4) /hpf U Hyaline Cast (Auto) (0-5) /lpf U Epithel Cells (Auto) (0-5) /lpf Urine Bacteria (Auto) (Negative) Ur Renal Epithelial Cell Granular Casts (0) /lpf Urine Mucus (None Prsent) Influenza Type A (PCR) (Neg) Influenza Type B (PCR) (Neg) 11/20/19 11/20/19 11/20/19 Range/Units 10:35 10:35 10:45 WBC (4.8-10.8) K/uL RBC (4.2-5.4) M/uL Hgb (12.0-16.0) g/dL Hct (37-47) % MCV (80-100) fL MCH (25-34) pg MCHC (32-36) g/dL RDW Std Deviation (36.4-46.3) fL RDW Coeff of Omar (11.5-14.5) % Plt Count (130-400) K/uL MPV (7.4-10.4) fL Immature Gran % (Auto) % Neut % (Auto) % Lymph % (Auto) % Cameron % (Auto) % Eos % (Auto) % Baso % (Auto) % Immature Gran # (Auto) (0.00-0.02) K/uL Neut # (Auto) (1.4-6.5) K/uL Lymph # (Auto) (1.2-3.4) K/uL Cameron # (Auto) (0.11-0.59) K/uL Eos # (Auto) (0-0.5) K/uL Baso # (Auto) (0-0.2) K/uL Absolute Nucleated RBC (0-0) K/uL Nucleated RBC % (auto) % PT (9.0-12.0) Seconds INR (0.9-1.1) VBG pH (7.36-7.41) VBG pCO2 (38-50) mmHg VBG pO2 mmHg VBG HCO3 mmol/L VBG O2 Saturation % VBG Base Excess mEq/L Barometric Pressure mm/Hg Sodium 142 (136-145) mmol/L Potassium 3.2 L (3.5-5.1) mmol/L Chloride 105 (98-107) mmol/L Carbon Dioxide 29 (21-32) mmol/L Anion Gap 8.0 (3-11) BUN 16 (7-18) mg/dl Creatinine 1.34 H (0.6-1.2) mg/dl Est Cr Clr Drug Dosing 31.2 ml/min Est GFR ( Amer) 41.5 Est GFR (Non-Af Amer) 35.8 BUN/Creatinine Ratio 11.6 (10-20) Glucose 161 H (70-99) mg/dl Lactate (0.4-2.0) mmol/L Calcium 9.2 (8.5-10.1) mg/dl Total Bilirubin 0.4 (0.2-1) mg/dl AST 21 (15-37) U/L ALT 26 (12-78) U/L Alkaline Phosphatase 88 (45-117) U/L Troponin I 0.040 (0-0.045) ng/ml Total Protein 6.2 L (6.4-8.2) gm/dl Albumin 2.8 L (3.4-5.0) gm/dl Globulin 3.4 (2.5-4.0) gm/dl Albumin/Globulin Ratio 0.8 L (0.9-2) Lipase 41 L (73-393) U/L Procalcitonin 6.33 H (0-0.5) ng/ml Urine Color Dark Yellow Urine Appearance Cloudy A (Clear) Urine pH 5.0 (4.5-7.5) Ur Specific [place] 1.015 (1.000-1.030) Urine Protein Negative (Negative) Urine Glucose (UA) Negative (Negative) Urine Ketones Negative (Negative) Urine Blood Negative (Negative) Urine Nitrite Positive A (Negative) Urine Bilirubin Negative (Negative) Urine Urobilinogen Negative (Negative) Ur Leukocyte Esterase 1+ H (Negative) Urine WBC (Auto) 1-5 (0-5) /hpf Urine RBC (Auto) 0-4 (0-4) /hpf U Hyaline Cast (Auto) >30 H (0-5) /lpf U Epithel Cells (Auto) >30 H (0-5) /lpf Urine Bacteria (Auto) 4+ H (Negative) Ur Renal Epithelial Cell Not Reportable Granular Casts 1-5 H (0) /lpf Urine Mucus Present A (None Prsent) Influenza Type A (PCR) (Neg) Influenza Type B (PCR) (Neg) 11/20/19 11/20/19 11/20/19 Range/Units 11:14 11:23 12:49 WBC (4.8-10.8) K/uL RBC (4.2-5.4) M/uL Hgb (12.0-16.0) g/dL Hct (37-47) % MCV (80-100) fL MCH (25-34) pg MCHC (32-36) g/dL RDW Std Deviation (36.4-46.3) fL RDW Coeff of Omar (11.5-14.5) % Plt Count (130-400) K/uL MPV (7.4-10.4) fL Immature Gran % (Auto) % Neut % (Auto) % Lymph % (Auto) % Cameron % (Auto) % Eos % (Auto) % Baso % (Auto) % Immature Gran # (Auto) (0.00-0.02) K/uL Neut # (Auto) (1.4-6.5) K/uL Lymph # (Auto) (1.2-3.4) K/uL Cameron # (Auto) (0.11-0.59) K/uL Eos # (Auto) (0-0.5) K/uL Baso # (Auto) (0-0.2) K/uL Absolute Nucleated RBC (0-0) K/uL Nucleated RBC % (auto) % PT (9.0-12.0) Seconds INR (0.9-1.1) VBG pH 7.37 (7.36-7.41) VBG pCO2 50 (38-50) mmHg VBG pO2 34 mmHg VBG HCO3 28 mmol/L VBG O2 Saturation < 60.0 % VBG Base Excess 2.3 mEq/L Barometric Pressure 732.6 mm/Hg Sodium (136-145) mmol/L Potassium (3.5-5.1) mmol/L Chloride (98-107) mmol/L Carbon Dioxide (21-32) mmol/L Anion Gap (3-11) BUN (7-18) mg/dl Creatinine (0.6-1.2) mg/dl Est Cr Clr Drug Dosing ml/min Est GFR ( Amer) Est GFR (Non-Af Amer) BUN/Creatinine Ratio (10-20) Glucose (70-99) mg/dl Lactate 4.2 H* (0.4-2.0) mmol/L Calcium (8.5-10.1) mg/dl Total Bilirubin (0.2-1) mg/dl AST (15-37) U/L ALT (12-78) U/L Alkaline Phosphatase (45-117) U/L Troponin I (0-0.045) ng/ml Total Protein (6.4-8.2) gm/dl Albumin (3.4-5.0) gm/dl Globulin (2.5-4.0) gm/dl Albumin/Globulin Ratio (0.9-2) Lipase (73-393) U/L Procalcitonin (0-0.5) ng/ml Urine Color Urine Appearance (Clear) Urine pH (4.5-7.5) Ur Specific [place] (1.000-1.030) Urine Protein (Negative) Urine Glucose (UA) (Negative) Urine Ketones (Negative) Urine Blood (Negative) Urine Nitrite (Negative) Urine Bilirubin (Negative) Urine Urobilinogen (Negative) Ur Leukocyte Esterase (Negative) Urine WBC (Auto) (0-5) /hpf Urine RBC (Auto) (0-4) /hpf U Hyaline Cast (Auto) (0-5) /lpf U Epithel Cells (Auto) (0-5) /lpf Urine Bacteria (Auto) (Negative) Ur Renal Epithelial Cell Granular Casts (0) /lpf Urine Mucus (None Prsent) Influenza Type A (PCR) Neg for Influ A (Neg) Influenza Type B (PCR) Neg for Influ B (Neg) Imaging Data Radiologist's Impression: Radiology results as stated below per my review and the radiologist's interpretation: XR chest 1V portable CLINICAL HISTORY: 88 years-old Female presenting with sob. TECHNIQUE: Portable upright AP view of the chest was obtained. COMPARISON: 03/21/2019. FINDINGS: Atherosclerosis of the aortic arch. Cardiac silhouette enlarged. Interval development of a dense right hilar and suprahilar opacity. There is also overall added density of the lateral right lung in comparison to the left and in comparison to prior. Persistent mild elevation of the right hemidiaphragm. No large effusion or pneumothorax. Left lung and pleural space clear. Degenerative changes of the thoracic spine. Upper abdomen normal. IMPRESSION: 1. Interval development of a dense right perihilar infiltrate. 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 Recommend cross-sectional imaging for better assessment. This s hould be followed to resolution. The report will be called/faxed according to standard departmental protocol. ACT 112: Negative or not required by law. Electronically signed by: Teddy Lopez M.D. 11/20/2019 11:[address] head/brain wo con CLINICAL HISTORY: 88 years-old Female presenting with ams, sepsis, fever, hypoxia, possible right lung mass. TECHNIQUE: Multidetector CT imaging of the head was performed without the use of intravenous contrast. IV contrast: None. One or more dose lowering techniques were used consistent with the principles of ALARA (as low as reasonably achievable), including automatic exposure control, mA or kV adjustment to individual patient size, and/or use of iterative reconstruction. COMPARISON: 02/03/2019. CT DOSE (mGy.cm): The estimated cumulative dose is 2426.72. FINDINGS: Shale Planer Operator topogram: Bilateral hip arthroplasties. Right perihilar density. Proportional ventricular and sulcal prominence, likely age-related parenchymal volume loss. No hemorrhage. Mild periventricular and subcortical white matter hypoattenuation, nonspecific but likely indicative of chronic small vessel ischemic change. No acute territorial infarct. No mass effect or midline shift. No extra-axial fluid collection. Paranasal sinuses and mastoid air cells clear. Calvarium intact. IMPRESSION: 1. Mild chronic small vessel ischemic change. No acute intracranial abnormality. ACT 112: Negative or not required by law. Electronically signed by: Teddy Lopez M.D. 11/20/2019 12:[address] SCAN OF THE ABDOMEN AND PELVIS WITHOUT IV CONTRAST CLINICAL HISTORY: Sepsis. Fever. COMPARISON STUDY: Abdominal CT dated 03/21/2019. TECHNIQUE: CT scan of the abdomen and pelvis is performed from the lung bases to the proximal femora. Images are reviewed in the axial, sagittal, and coronal planes. IV contrast was not administered for this examination as per the referring clinician. Note that the examination was performed in suboptimal fashion without oral and IV contrast. The examination is degraded by streak artifact from the arms which could not be elevated above the abdomen as well as by motion artifact. A dose lowering technique was utilized adhering to the principles of ALARA. CT DOSE: 2426.72 mGy.cm FINDINGS: Lung bases: The heart is normal in size and without pericardial effusion. The coronary arteries and mitral annulus are densely calcified. There are trace pleural effusions and right basilar consolidation. Right upper lobe consolidation is also seen on the information technology assistant tomogram. There is a tiny hiatal hernia. Liver: The unenhanced liver is normal in size, contour, and attenuation. There is no intrahepatic biliary ductal dilatation. Gallbladder: Surgically absent noting clips in the gallbladder fossa. Spleen: Normal in size and attenuation. Pancreas: Atrophic and grossly unremarkable. Adrenal glands: Unremarkable. Kidneys: The unenhanced kidneys are atrophic and without hydronephrosis. There are numerous bilateral nonobstructing renal calculi which measure up to 8mm. There is no evidence of contour deforming renal mass lesion. Abdominal vasculature: The abdominal aorta is normal in course and caliber noting advanced atherosclerotic calcification. Bowel: There is postoperative change from left colonic resection with left lower quadrant colostomy. A parastomal hernia is noted. There is moderate diverticulosis of the remaining colon without CT evidence of acute diverticulitis. No bowel obstruction is seen. A portion of the normal appendix is identified. Peritoneum: There is no intraperitoneal free air or abdominal ascites. Lymphadenopathy: None. Pelvic viscera: Evaluation of the pelvis is significantly degraded by streak artifact from bilateral hip arthroplasties. The bladder is decompressed around a Best catheter and cannot be evaluated. The uterus is surgically absent. No adnexal lesion is seen. Skeletal structures: No lytic or blastic lesions are seen. Moderate lumbosacral spondylosis is identified. Bilateral hip arthroplasties are in place. There is a healed right pubic ring fracture, as well as healed left-sided rib fractures. IMPRESSION: 1. Suboptimal examination without oral and IV contrast. The examination is also degraded by streak and motion artifact. 2. Right lower lobe consolidation is typical for pneumonia. Right upper lobe consolidation is also seen on the information technology assistant tomogram. Clinical correlation will be required and radiographic follow-up to resolution is recommended. 3. Trace pleural effusions. 4. There are no acute infectious or inflammatory findings in the abdomen or pelvis. 5. There is postoperative change from sigmoid colon resection with left lower quadrant colostomy. No bowel obstruction is identified. 6. A parastomal hernia is noted. 7. There is moderate diverticulosis of the remaining colon without CT evidence of acute diverticulitis. 8. Bilateral nephrolithiasis. 9. Additional findings as above. ACT 112: Negative or not required by law. Electronically signed by: Bennett Huertas M.D. 11/20/2019 12:[address] chest wo con CLINICAL HISTORY: Sepsis, fever, hypoxia, possible lung mass. COMPARISON STUDY: CT scan dated May 16, 2016, chest x-ray dated November 20, 2019 CT DOSE: TECHNIQUE: CT of the thorax was performed from the thoracic inlet to the lung bases. Images are reviewed in the axial, sagittal, and coronal planes. IV contra st was not administered for this examination. A dose lowering technique was utilized adhering to the principles of ALARA. FINDINGS: Thyroid: The thyroid is not well visualized Thoracic aorta: The thoracic aorta is normal in course and caliber, noting standard 3 vessel arch anatomy. Heart: There are coronary artery calcifications. Lungs and pleural spaces: There is an azygos fissure. There are areas of parenchymal consolidation within the azygos lobe, right upper lobe, and right lower lobe. The findings are suggestive of a pneumonia. Imaging subsequent to treatment is recommended in follow-up. There are no significant pleural effusions. There is a stable 3 mm left apical pulmonary nodule Mediastinum: There is no evidence of pathologic mediastinal lymphadenopathy Nayana: There are mildly prominent right hilar lymph nodes, likely reactive Axilla: There is no evidence of pathologic axillary lymphadenopathy Upper abdomen: Partially visualized upper abdominal viscera is within normal limits. Skeletal structures: There are no lytic or blastic osseous lesions. IMPRESSION: 1. Extensive right lung airspace opacities, involving the right upper lobe, azygous lobe, and right lower lobe. The findings are typical for a pneumonia. Imaging subsequent to treatment is recommended in follow-up. ACT 112: Negative or not required by law. Electronically signed by: Fredy Boyd M.D. 11/20/2019 12:30 PM ECG Data Attestation: I personally reviewed and interpreted this ECG as follows: Indication: + altered mental status Rate (beats per minute): 133 Rhythm: + sinus tachycardia ECG Intervals/blocks: + Normal QT-c ECG ST segments: no ST elevation ECG Findings: no PVCs Blood Pressure Blood Pressure Findings: Low blood pressure Blood Pressure Disposition: further management by hospitalist GRACE Narrative Patient is a 88-year-old female with a past medical history including recurrent ESBL UTIs, colostomy for diverticular fistula, chronic steroids, anemia, Glasgow's esophagus, CHF, CKD presenting today with weakness and fever developing overnight with increased oxygen requirement. Febrile and tachycardic upon arrival requiring 12 L Oxy max to saturate in the low 90s. Patient answers questions but says yes to most questions. Mildly confused. Protecting airway. Maybe some abdominal pain. Unclear if this is real or not. CT the head and abdomen pelvis was completed. Chest x-ray concerning for possible right-sided pneumonia. Contemplated chest CTA to evaluate the chest for PE. Given that her kidney function appears off today will defer this as this appears much more infectious and I do not want to risk significant renal injury. Given a liter fluid initially as well as some IV Tylenol. Empirically placed on vancomycin and imipenem as concern for sepsis. Significant leukocytosis appreciated. Doses of hydrocortisone given given her chronic steroid usage. Urinalysis was a cath sample some question of possible infection exists. Significant leukocytosis with an elevated lactate. Slight worsening of kidney function. Procalcitonin elevated. CT with extensive right-sided pneumonia. CT head and abdomen pelvis without significant acute findings beyond concerns for pneumonia. Patient's blood pressure dipped some. Sepsis and now septic shock. Was given some additional fluid and started on norepinephrine peripherally. Discussed with the hospitalist here as well as the children librarian for further care and monitoring. Impression & Plan Pneumonia, Septic shock, Respiratory failure Discharge Plan Visit Data *Final* Discharge Date/Time: 11/20/19 14:33 Chief Complaint: Fever ED Provider: Blake Bell Discharge Problem: Pneumonia, Septic shock, Respiratory failure Patient Disposition: Admitted As Inpatient Discharge Instructions Interventions: ED Discharge Assessment Last Done: 11/20/19 14:33 Discharge Problem: Pneumonia Qualifiers: Pneumonia type: due to unspecified organism Laterality: right Lung location: middle lobe of lung Qualified Code(s): J18.9 - Pneumonia, unspecified organism Respiratory failure Qualifiers: Chronicity: unspecified Respiratory failure complication: unspecified whether with hypoxia or hypercapnia Qualified Code(s): J96.90 - Respiratory failure, unspecified, unspecified whether with hypoxia or hypercapnia The scribe's documentation has been prepared under my direction and personally reviewed by me in its entirety. I confirm that the note above accurately reflects all work, treatment, procedures, and medical decision making performed by me.
[2019-11-20] MEDS: IMIPENEM/CILASTATIN SODIUM 300 MG in DEXTROSE 5% 100 ML IV SCH ×2 (17:32→23:20)
[2019-11-20 17:41] LABS: Oxygen Saturation VBG 74.3 %; pH VBG 7.38 (7.36-7.41)
[2019-11-20] MEDS: NORMOSOL-R 1,000 ML IV SCH (18:54)
--- NOTE | 2019-11-20 19:56 | Pharmacy Report ---
Pharmacy Abx Initial Consult - Date of Service November 20, 2019 - Pharmacy Dosing Scope Date of Consult: 11/20/19 Consultation requested by: Dr. Gregg Pharmacy is consulted to initiate Vancomycin and Primaxin IV dosing therapy, order appropriate labs and adjust drug dose/frequency. - Subjective The patient is a 88 year old F admitted on 11/20/19 13:34. - Objective Height: 5 ft 4 in Weight: 82 kg Vital Signs (Past 12hrs): Vital Signs Temp Pulse Pulse Resp BP BP Pulse Ox 11/20/19 17:36 99 H 20 123/57 L 96 11/20/19 17:26 99 H 33 H 135/55 L 97 11/20/19 17:06 101 H 23 129/59 L 96 11/20/19 16:36 102 H 32 H 116/58 L 98 11/20/19 16:30 104 H 20 96 11/20/19 16:21 104 H 29 H 114/64 97 11/20/19 16:06 37.5 C 102 H 21 104/55 L 95 11/20/19 16:00 102 H 11/20/19 15:59 105 H 27 H 141/65 H 95 11/20/19 15:51 107 H 42 H 135/62 98 11/20/19 15:50 107 H 35 H 114/64 99 11/20/19 15:44 105 H 31 H 142/65 H 99 11/20/19 15:36 105 H 43 H 123/58 L 97 11/20/19 15:35 106 H 14 138/69 96 11/20/19 15:14 102 H 11/20/19 15:02 112 H 27 H 155/55 H 98 11/20/19 15:00 98 11/20/19 14:55 37.5 C 97 11/20/19 14:30 106 H 20 139/64 96 11/20/19 14:16 109 H 20 96 11/20/19 14:15 108 H 18 117/73 97 11/20/19 14:01 105 H 20 98 11/20/19 14:00 106 H 23 127/62 97 11/20/19 13:45 105 H 20 86/59 L 94 11/20/19 13:35 106 H 20 94 11/20/19 13:34 106 H 20 84/43 L 94 11/20/19 13:31 106 H 19 95 11/20/19 13:30 106 H 20 79/57 L 95 11/20/19 13:17 110 H 21 104/58 L 94 11/20/19 13:15 109 H 24 79/39 L 93 11/20/19 13:10 108 H 20 92/48 L 93 11/20/19 13:01 109 H 19 94 11/20/19 13:00 109 H 21 95/43 L 94 11/20/19 12:50 115 H 21 93/45 L 97 11/20/19 12:43 109 H 19 86/46 L 95 11/20/19 12:41 108 H 19 92 11/20/19 12:40 108 H 22 89/39 L 93 11/20/19 12:31 110 H 20 92 11/20/19 12:30 110 H 21 88/42 L 92 11/20/19 12:24 112 H 23 88/40 L 93 11/20/19 12:23 112 H 18 88/40 L 91 11/20/19 12:16 113 H 19 92 11/20/19 12:00 112 H 22 96/39 L 92 11/20/19 11:52 37.5 C 11/20/19 11:31 113 H 24 94 11/20/19 11:30 112 H 23 108/46 L 94 11/20/19 11:01 119 H 21 95/55 L 94 11/20/19 11:00 117 H 16 11/20/19 10:50 39.3 C H 113 H 22 110/52 L 93 11/20/19 10:46 124 H 22 94 11/20/19 10:45 124 H 20 110/52 L 94 11/20/19 10:30 127 H 22 88 L 11/20/19 10:27 133 H 16 134/67 90 11/20/19 10:25 132 H 18 89 L 11/20/19 10:23 133 H 24 211/195 H 91 Lab Results (24hrs): Laboratory Tests (24 Hours) 11/20/19 11/20/19 11/20/19 10:35 10:35 10:35 WBC 31.09 H* Neut # (Auto) 25.83 H Creatinine 1.34 H Est Cr Clr Drug Dosing 31.2 Procalcitonin 6.33 H Micro Results: 11/20/19 10:45 Urine Culture - Pending Urine,Straight Cath 11/20/19 10:36 Aerobic Blood Culture - Pending Blood Anaerobic Blood Culture - Pending 11/20/19 10:35 Aerobic Blood Culture - Pending Blood Anaerobic Blood Culture - Pending - Risk Factors for Resistance * Hospitalization for 48 hours or more within the past 90 days * Immunocompromised: Prednisone 10mg daily. 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 - Assessment & Plan Assessment 88 year old F presenting to the ED with complaint of weakness and constant fever starting this morning. Patient has had a cough for 2 weeks and has been using more oxygen throughout the day. Chest CT shows consolidations suggestive of PNA. Patient has history of recurrent ESBL UTIs. Patient started on Vancomycin 1250mg daily and Primaxin 300mg IV Q6H. Blood cultures x 2 and urine culture currently pending. MRSA nasal swab negative. Plan Vancomycin and Primaxin for treatment of Pulm/sepsis Vancomycin IV * Estimated PK Parameters: Vd 0.61 L/kg, [place] 0.030 hr-1, t1/2 23 hr * Loading dose: 1750 mg (21.3 mg/kg) * Maintenance dose: 1250 mg IV (15.2 mg/kg) every 24 hours * Goal trough level for Pulm: 15 to 20 mcg/mL * Trough level will be ordered if therapy is to continue Pharmacy will continue to follow and will adjust dose/frequency as necessary. Thank you.
[2019-11-20] MEDS: FAMOTIDINE 20 MG TAB PO SCH (21:41)
[2019-11-20] MEDS: QUETIAPINE FUMARATE 200 MG TAB PO SCH (21:43)
[2019-11-20] MEDS: ACETAMINOPHEN 500 MG TAB PO SCH (21:43)
[2019-11-20] MEDS: PRAZOSIN HCL 1 MG CAP PO SCH (21:44)
[2019-11-21] MEDS: NORMOSOL-R 1,000 ML IV SCH (04:39)
[2019-11-21 04:49] LABS: Hemoglobin 8.8 g/dL (12.0-16.0); Mean Corpuscular Hemoglobin 27.2 pg (25-34); Mean Corpuscular Hgb Conc 30.3 g/dL (32-36); Mean Corpuscular Volume 89.5 fL (80-100); Mean Platelet Volume 9.6 fL (7.4-10.4); Platelet Count 209 K/uL (130-400); RDW Coefficient of Variation 16.5 % (11.5-14.5); RDW Standard Deviation 54.6 fL (36.4-46.3); Red Blood Count 3.24 M/uL (4.2-5.4); White Blood Count 26.67 K/uL (4.8-10.8)
[2019-11-21 05:06] LABS: Basophils # (auto) 0.01 K/uL (0-0.2); Eosinophils # (auto) 0.53 K/uL (0-0.5); Immature Granulocytes # (auto) 0.08 K/uL (0.00-0.02); Immature Granulocytes % (auto) 0.3 %; Lymphocytes # (auto) 2.39 K/uL (1.2-3.4); Monocytes # (auto) 1.24 K/uL (0.11-0.59); Monocytes % (auto) 4.6 %; Neutrophils # (auto) 22.42 K/uL (1.4-6.5); Neutrophils % (auto) 84.1 %; RBC Morphology Unremarkable
[2019-11-21 05:12] LABS: BUN Creatinine Ratio 14.9 (10-20); Calcium 8.1 mg/dl (8.5-10.1); Creatinine Clr Calc Pharmacy 39.8 ml/min; Est GFR (African American) 55.7; Est GFR (Non-African American) 48.1; Magnesium 1.9 mg/dl (1.8-2.4); Phosphorus 3.2 mg/dl (2.5-4.9); Potassium 3.9 mmol/L (3.5-5.1)
[2019-11-21] MEDS: IMIPENEM/CILASTATIN SODIUM 300 MG in DEXTROSE 5% 100 ML IV SCH ×4 (05:46→22:30)
[2019-11-21] MEDS: HEPARIN SOD 5,000 UNIT/0.5 ML VIAL SQ SCH ×4 (05:47→20:51)
[2019-11-21] MEDS: LEVOTHYROXINE SODIUM 88 MCG TABLET PO SCH (05:52)
[2019-11-21 06:07] LABS: Estimated Average Glucose 148 mg/dl; Hemoglobin A1C 6.8 % (4.5-5.6)
--- NOTE | 2019-11-21 06:41 | Critical Care Progress Note ---
Date of Service November 21, 2019 Assessment & Plan (1) Severe sepsis: Reason Critically Ill: is an 88-year-old female with a complex past medical history admitted to the ICU with severe sepsis, presumptively secondary to a right middle lobe pneumonia with concern for aspiration. PLAN: Neuro: Acute metabolic encephalopathy -improved, alert and able to follow commands and answer questions appropriately -oriented to person only, unable to recall past events, suspect this is close to her baseline Resp: Acute hypoxic respiratory failure -improving, patient saturating well on 3L of oxygen - her home dose Right middle lobe pneumonia -Presumptive aspiration -continue Imipenem secondary to ESBL history -d/c vancomycin today -sputum culture ordered to evaluate for resistant organisms -speech eval requested CV: Hypotension -improved s/p volume resuscitation -temporarily required pressor support with levophed, however this has been off since approx 1600 on 11/20/2019 CAD/CHF -continue aspirin/plavix/statin Fluids/Renal: Acute renal failure -Recently received contrast -Avoid nephrotoxic agents -creatinine improved back to baseline today IVF w/normosol at 100mls/hr ID: Blood, urine and sputum cultures sent Appreciate ID recommendations GI/Nutrition: Diabetic diet Abdominal pain -worsened by fecal impaction distal to ileostomy site -will administer mineral oil enema through stoma today and monitor outcome Barretts esophagus -continue home PPI and H2 zeinab Heme: Baseline anemia -Consented for Blood product -will check FOBT w/enema administration : -continue home mirabegron Endocrine: ICU hyperglycemia protocol. HbA1c 6.8% Received solu-cortef x1 due to hx of adrenal insufficency - currently receiving home dose of 10mg of prednisone daily Continue home RA medications Vascular access: PIV: consented for central venous access DVT Prophylaxis: 5000 units heparin TID Code Status: DNR/DNI in event of cardiac arrest. Will have to have goals of care discussion with family given patient's poor baseline, multiple comorbidities and frequent hospitalizations. 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 Shaikh was resident physician during care of patient. I separately evaluated patient for amaro portions of the history and the exam. I was present during the critical portion of medical decision making, and I discussed the case with the resident. I generally agree with the findings and plan. Patient significantly improved, encephalopathy has resolved. I discussed patient's CODE STATUS with the patient herself in the presence of additional family members. She is in agreement that she would not want to undergo heroic efforts given multiple comorbidities and likelihood that she would not be left in a functional status that she would be comfortable with. She has agreeable with the previously discussed procedures. Her acute hypoxic respiratory failure has largely resolved, she has continued chronic hypoxic respiratory failure utilizing oxygen at baseline. Subjective Ms. Neal is more alert today - awakens to voice and responds to questions appropriately. She reports she feels terrible today, and that she has a stomach ache. She is alert and oriented to person, but unable to comment on where she is, or what year it is. She is unaware of the circumstances that brought her to the hospital. She denies chest pain, shortness of breath, nausea or vomiting. Review of Systems Constitutional: + fatigue; no fever and no chills Cardiovascular: no chest pain Gastrointestinal: + abdominal pain; no nausea and no vomiting Physical Exam Constitutional: WD/WN, vitals as above Respiratory: normal respiratory effort; no respiratory distress Gastrointestinal (Abdomen): Inspection/Auscultation: abdomen not distended Percussion/Palpation: + abdomen tender (mildly tender throughout, worst in LLQ. ) and abdomen soft; no guarding and abdomen not rigid ileostomy bag present in left side of abdomen. Surrounding skin clean and non-erythematous Musculoskeletal: Head/Neck/Chest: normocephalic and head atraumatic Skin: no rashes, warm and dry Psychiatric: Orientation: alert, oriented to person and cooperative; + not oriented to place and + not oriented to time Results & Data ([facility]) Vital Signs (Past 12 Hours) Vital Signs Temp Pulse Resp BP Pulse Ox 11/21/19 05:41 100 H 23 148/58 H 97 11/21/19 04:40 100 H 28 H 134/55 L 97 11/21/19 03:40 36.8 C 95 H 26 H 122/60 95 11/21/19 02:42 98 H 30 H 94/47 L 95 11/21/19 01:41 94 H 30 H 112/46 L 98 11/21/19 00:40 37 C 98 H 22 134/58 L 96 11/21/19 00:00 97 H 11/20/19 23:41 96 H 25 H 124/60 96 11/20/19 22:16 97 H 20 151/54 H 97 11/20/19 21:46 102 H 26 H 171/82 H 96 11/20/19 21:16 96 H 21 139/57 L 95 11/20/19 20:46 102 H 25 H 168/71 H 95 11/20/19 20:16 99 H 30 H 156/61 H 96 11/20/19 19:46 98 H 24 152/66 H 98 Resident Activity Tracking Resident Involvement: Resident Care Provided Care Provided: Adult Hospital Medicine (1) ARF (acute renal failure) Acute renal failure type: unspecified Qualified Code(s): N17.9 - Acute kidney failure, unspecified (2) Pneumonia Laterality: right Lung location: middle lobe of lung Pneumonia type: due to unspecified organism Qualified Code(s): J18.9 - Pneumonia, unspecified organism
--- NOTE | 2019-11-21 07:22 | XRay Report ---
XR chest 1V portable CLINICAL HISTORY: Pneumonia. Follow-up study. COMPARISON STUDY: November 20, 2019 FINDINGS: The cardiac and mediastinal contours remain stable. There are persistent but improving righ t lung airspace opacities. There is no failure. There are no pleural effusions.[ IMPRESSION: Persistent but improving right lung airspace opacities ACT 112: Negative or not required by law. Electronically signed by: Fredy Boyd M.D. 11/21/2019 7:20 AM
[2019-11-21] MEDS: MIRABEGRON ER 25 MG TAB PO SCH (08:47)
[2019-11-21] MEDS: DULOXETINE HCL 30 MG CAP PO SCH (08:47)
[2019-11-21] MEDS: PANTOprazole 40 MG TAB PO SCH (08:47)
[2019-11-21] MEDS: ASPIRIN 81 MG ECTAB PO SCH (08:47)
[2019-11-21] MEDS: CLOPIDOGREL BISULFATE 75 MG TAB PO SCH (08:48)
[2019-11-21] MEDS: CEROVITE ADV FORMULA TAB PO SCH (08:48)
[2019-11-21] MEDS: predniSONE 10 MG TABLET PO SCH (08:48)
[2019-11-21] MEDS: HYDROXYCHLOROQUINE SULFATE 200 MG TAB PO SCH (08:49)
[2019-11-21] MEDS: FEXOFENADINE 60 MG TAB PO SCH (08:49)
[2019-11-21] MEDS: GABAPENTIN 300 MG CAP PO SCH ×3 (08:49→20:46)
[2019-11-21] MEDS: INSULIN ASPART 100 UNITS/ML 3 ML PEN SC SCH ×4 (08:57→21:07)
[2019-11-21] MEDS ORDERED: PREMARIN VAG CRM 14 APPLN/30 GM TUBE PV SCH (09:00)
[2019-11-21] MEDS ORDERED: DULOXETINE HCL 60 MG CAP PO SCH (09:00)
[2019-11-21] MEDS: MIDODRINE HCL 2.5 MG TAB PO SCH ×3 (09:04→20:48)
--- NOTE | 2019-11-21 10:40 | Hospitalist Progress Note ---
Date of Service November 21, 2019 Assessment & Plan (1) Septic shock: 2nd to extensive right-sided pneumonia. +/- UTI however the bacteria in urine could be asymptomatic bacteriuria. either way septic shock is resolved. only required pressors for brief period of time yesterday. BPs stable today. blood cx's thus far negative. (2) Pneumonia: extensive, multilobar on right. cannot rule out aspiration. have to cover for gram negatives as well. MRSA swab negative. MRSA coverage d/c. continue imipenem. agree with ID that atypical coverage should be added - will add doxy 100mg BID. follow blood cultures. (3) Metabolic encephalopathy: 2nd to sepsis - supportive care (4) ARF (acute renal failure): Cr at baseline 0.9 Cr 1.3 on admission likely sepsis-associated ATN bmp in am (5) Hypokalemia: resolved (6) Recurrent UTI: Pt is on alternating supressive therapy, Z5tmpix Cefidinir currently, would switch to amoxicillin on 11/26 Hx of ESBL pathogens urine cx growing GNR very difficult to tell if this is truly pathogenic UTI or simply asymptomatic bacteriuria defer to ID and critical care team (7) Arteriosclerosis of coronary artery: continue aspirin/plavix no ischemic symptoms at this time (8) Chronic reflux esophagitis: continue home meds (9) DM 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: diet-controlled SSI PRN (10) Fibromyalgia: continue home meds (11) Hypercholesterolemia: Holding statin for now (12) Orthostatic hypotension: Midodrine at baseline continue such (13) 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: continue home meds including chronic prednisone did receive stress dose steroids hospital day #1 these have been weaned (14) Urinary incontinence: continue home meds (15) Hypothyroid: continue home meds TSH 12/2018 was wnl should recheck TSH this admission (16) Chronic back pain: Holding oxycodone given AMS Continue gabapentin add lidoderm patches prn voltaren prn heating pad (k-pad) 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 however she was confused stating it was 2004. she complained of frontal headache and back pain. she had a hard time describing both issues. ultimately she told me the back pain was chronic and that she does get frequent headaches at home as well. takes "2 tylenol for the headache and it goes away". Usually does this every afternoon. only required a couple of hours of pressors yesterday after admission; none since. remains on NC O2. daughter and son were at bedside yesterday. Review of Systems Constitutional: + fatigue Respiratory: no dyspnea Cardiovascular: no chest pain Gastrointestinal: + abdominal pain and + nausea Physical Exam Constitutional: + ill appearing and + altered mental status; no acute distress ENMT: external ear and nose normal, oropharynx normal Respiratory: + cough; no respiratory distress Auscultation: + crackles (extensive - most of entire right lung ) Cardiovascular: Rate/Rhythm: regular rate and regular rhythm Heart Sounds: normal S1 and normal S2; no murmur Vessels: posterior tibial pulses present and dorsalis pedis pulses present; no JVD Extremities: no edema Gastrointestinal (Abdomen): normal bowel sounds, soft, nontender, no hepatosplenomegaly colostomy bag in place with brown stool Musculoskeletal: Spine: + paraspinal tenderness (lumbar region ) Psychiatric: Orientation: alert, oriented to person and oriented to place; + not oriented to time Results & Data ([facility]) Vital Signs (Past 12 Hours) Vital Signs Temp Pulse Resp BP Pulse Ox 11/21/19 10:32 105 H 23 105/59 L 96 11/21/19 10:00 107 H 25 H 93 11/21/19 08:41 104 H 36 H 118/49 L 91 11/21/19 08:00 100 H 11/21/19 07:41 36.8 C 102 H 26 H 129/54 L 95 11/21/19 06:41 106 H 18 124/68 11/21/19 05:41 100 H 23 148/58 H 97 11/21/19 04:40 100 H 28 H 134/55 L 97 11/21/19 03:40 36.8 C 95 H 26 H 122/60 95 11/21/19 02:42 98 H 30 H 94/47 L 95 11/21/19 01:41 94 H 30 H 112/46 L 98 11/21/19 00:40 37 C 98 H 22 134/58 L 96 11/21/19 00:00 97 H 11/20/19 23:41 96 H 25 H 124/60 96 Laboratory Results Laboratory Results - last 24 hr 11/20/19 11/20/19 11/20/19 10:35 10:35 10:35 WBC 31.09 H* RBC 3.66 L Hgb 10.0 L Hct 32.1 L MCV 87.7 MCH 27.3 MCHC 31.2 L RDW Std Deviation 52.3 H RDW Coeff of Omar 16.3 H Plt Count 264 MPV 9.3 Immature Gran % (Auto) 0.4 Neut % (Auto) 83.1 Lymph % (Auto) 8.7 [place] % (Auto) 6.2 Eos % (Auto) 1.5 Baso % (Auto) 0.1 Immature Gran # (Auto) 0.13 H Neut # (Auto) 25.83 H Lymph # (Auto) 2.71 [place] # (Auto) 1.92 H Eos # (Auto) 0.46 Baso # (Auto) 0.04 Absolute Nucleated RBC 0.04 H Nucleated RBC % (auto) 0.1 RBC Morphology PT 10.5 INR 1.0 VBG pH VBG pCO2 VBG pO2 VBG HCO3 VBG O2 Saturation VBG Base Excess Barometric Pressure Sodium Potassium Chloride Carbon Dioxide Anion Gap BUN Creatinine Est Cr Clr Drug Dosing Est GFR ( Amer) Est GFR (Non-Af Amer) BUN/Creatinine Ratio Glucose POC Glucose Estimat Average Glucose Hemoglobin A1c Lactate 3.7 H* Calcium Phosphorus Magnesium Total Bilirubin AST ALT Alkaline Phosphatase Troponin I Total Protein Albumin Globulin Albumin/Globulin Ratio Lipase Procalcitonin Urine Color Urine Appearance Urine pH Ur Specific [place] Urine Protein Urine Glucose (UA) Urine Ketones Urine Blood Urine Nitrite Urine Bilirubin Urine Urobilinogen Ur Leukocyte Esterase Urine WBC (Auto) Urine RBC (Auto) U Hyaline Cast (Auto) U Epithel Cells (Auto) Urine Bacteria (Auto) Ur Renal Epithelial Cell Granular Casts Urine Mucus Nasal Screen MRSA (PCR) Influenza Type A (PCR) Influenza Type B (PCR) 11/20/19 11/20/19 11/20/19 10:35 10:35 10:45 WBC RBC Hgb Hct MCV MCH MCHC RDW Std Deviation RDW Coeff of Omar Plt Count MPV Immature Gran % (Auto) Neut % (Auto) Lymph % (Auto) [place] % (Auto) Eos % (Auto) Baso % (Auto) Immature Gran # (Auto) Neut # (Auto) Lymph # (Auto) [place] # (Auto) Eos # (Auto) Baso # (Auto) Absolute Nucleated RBC Nucleated RBC % (auto) RBC Morphology PT INR VBG pH VBG pCO2 VBG pO2 VBG HCO3 VBG O2 Saturation VBG Base Excess Barometric Pressure Sodium 142 Potassium 3.2 L Chloride 105 Carbon Dioxide 29 Anion Gap 8.0 BUN 16 Creatinine 1.34 H Est Cr Clr Drug Dosing 31.2 Est GFR ( Amer) 41.5 Est GFR (Non-Af Amer) 35.8 BUN/Creatinine Ratio 11.6 Glucose 161 H POC Glucose Estimat Average Glucose Hemoglobin A1c Lactate Calcium 9.2 Phosphorus Magnesium Total Bilirubin 0.4 AST 21 ALT 26 Alkaline Phosphatase 88 Troponin I 0.040 Total Protein 6.2 L Albumin 2.8 L Globulin 3.4 Albumin/Globulin Ratio 0.8 L Lipase 41 L Procalcitonin 6.33 H Urine Color Dark Yellow Urine Appearance Cloudy A Urine pH 5.0 Ur Specific [place] 1.015 Urine Protein Negative Urine Glucose (UA) Negative Urine Ketones Negative Urine Blood Negative Urine Nitrite Positive A Urine Bilirubin Negative Urine Urobilinogen Negative Ur Leukocyte Esterase 1+ H Urine WBC (Auto) 1-5 Urine RBC (Auto) 0-4 U Hyaline Cast (Auto) >30 H U Epithel Cells (Auto) >30 H Urine Bacteria (Auto) 4+ H Ur Renal Epithelial Cell Not Reportable Granular Casts 1-5 H Urine Mucus Present A Nasal Screen MRSA (PCR) Influenza Type A (PCR) Influenza Type B (PCR) 11/20/19 11/20/19 11/20/19 11:14 11:23 12:49 WBC RBC Hgb Hct MCV MCH MCHC RDW Std Deviation RDW Coeff of Omar Plt Count MPV Immature Gran % (Auto) Neut % (Auto) Lymph % (Auto) [place] % (Auto) Eos % (Auto) Baso % (Auto) Immature Gran # (Auto) Neut # (Auto) Lymph # (Auto) [place] # (Auto) Eos # (Auto) Baso # (Auto) Absolute Nucleated RBC Nucleated RBC % (auto) RBC Morphology PT INR VBG pH 7.37 VBG pCO2 50 VBG pO2 34 VBG HCO3 28 VBG O2 Saturation < 60.0 VBG Base Excess 2.3 Barometric Pressure 732.6 Sodium Potassium Chloride Carbon Dioxide Anion Gap BUN Creatinine Est Cr Clr Drug Dosing Est GFR ( Amer) Est GFR (Non-Af Amer) BUN/Creatinine Ratio Glucose POC Glucose Estimat Average Glucose Hemoglobin A1c Lactate 4.2 H* Calcium Phosphorus Magnesium Total Bilirubin AST ALT Alkaline Phosphatase Troponin I Total Protein Albumin Globulin Albumin/Globulin Ratio Lipase Procalcitonin Urine Color Urine Appearance Urine pH Ur Specific [place] Urine Protein Urine Glucose (UA) Urine Ketones Urine Blood Urine Nitrite Urine Bilirubin Urine Urobilinogen Ur Leukocyte Esterase Urine WBC (Auto) Urine RBC (Auto) U Hyaline Cast (Auto) U Epithel Cells (Auto) Urine Bacteria (Auto) Ur Renal Epithelial Cell Granular Casts Urine Mucus Nasal Screen MRSA (PCR) Influenza Type A (PCR) Neg for Influ A Influenza Type B (PCR) Neg for Influ B 11/20/19 11/20/19 11/20/19 15:00 15:36 16:05 WBC RBC Hgb Hct MCV MCH MCHC RDW Std Deviation RDW Coeff of Omar Plt Count MPV Immature Gran % (Auto) Neut % (Auto) Lymph % (Auto) [place] % (Auto) Eos % (Auto) Baso % (Auto) Immature Gran # (Auto) Neut # (Auto) Lymph # (Auto) [place] # (Auto) Eos # (Auto) Baso # (Auto) Absolute Nucleated RBC Nucleated RBC % (auto) RBC Morphology PT INR VBG pH VBG pCO2 VBG pO2 VBG HCO3 VBG O2 Saturation VBG Base Excess Barometric Pressure Sodium Potassium Chloride Carbon Dioxide Anion Gap BUN Creatinine Est Cr Clr Drug Dosing Est GFR ( Amer) Est GFR (Non-Af Amer) BUN/Creatinine Ratio Glucose POC Glucose 174 H Estimat Average Glucose Hemoglobin A1c Lactate 2.9 H* Calcium Phosphorus Magnesium Total Bilirubin AST ALT Alkaline Phosphatase Troponin I Total Protein Albumin Globulin Albumin/Globulin Ratio Lipase Procalcitonin Urine Color Urine Appearance Urine pH Ur Specific [place] Urine Protein Urine Glucose (UA) Urine Ketones Urine Blood Urine Nitrite Urine Bilirubin Urine Urobilinogen Ur Leukocyte Esterase Urine WBC (Auto) Urine RBC (Auto) U Hyaline Cast (Auto) U Epithel Cells (Auto) Urine Bacteria (Auto) Ur Renal Epithelial Cell Granular Casts Urine Mucus Nasal Screen MRSA (PCR) Negative Influenza Type A (PCR) Influenza Type B (PCR) 11/20/19 11/20/19 11/20/19 17:23 17:23 21:10 WBC RBC Hgb Hct MCV MCH MCHC RDW Std Deviation RDW Coeff of Omar Plt Count MPV Immature Gran % (Auto) Neut % (Auto) Lymph % (Auto) [place] % (Auto) Eos % (Auto) Baso % (Auto) Immature Gran # (Auto) Neut # (Auto) Lymph # (Auto) [place] # (Auto) Eos # (Auto) Baso # (Auto) Absolute Nucleated RBC Nucleated RBC % (auto) RBC Morphology PT INR VBG pH 7.38 VBG pCO2 46 VBG pO2 43 VBG HCO3 26 VBG O2 Saturation 74.3 VBG Base Excess 1.0 Barometric Pressure 732.4 Sodium Potassium Chloride Carbon Dioxide Anion Gap BUN Creatinine Est Cr Clr Drug Dosing Est GFR ( Amer) Est GFR (Non-Af Amer) BUN/Creatinine Ratio Glucose POC Glucose 134 H Estimat Average Glucose Hemoglobin A1c Lactate 3.2 H* Calcium Phosphorus Magnesium Total Bilirubin AST ALT Alkaline Phosphatase Troponin I Total Protein Albumin Globulin Albumin/Globulin Ratio Lipase Procalcitonin Urine Color Urine Appearance Urine pH Ur Specific [place] Urine Protein Urine Glucose (UA) Urine Ketones Urine Blood Urine Nitrite Urine Bilirubin Urine Urobilinogen Ur Leukocyte Esterase Urine WBC (Auto) Urine RBC (Auto) U Hyaline Cast (Auto) U Epithel Cells (Auto) Urine Bacteria (Auto) Ur Renal Epithelial Cell Granular Casts Urine Mucus Nasal Screen MRSA (PCR) Influenza Type A (PCR) Influenza Type B (PCR) 11/21/19 11/21/19 11/21/19 04:34 04:36 04:36 WBC 26.67 H RBC 3.24 L Hgb 8.8 L Hct 29.0 L MCV 89.5 MCH 27.2 MCHC 30.3 L RDW Std Deviation 54.6 H RDW Coeff of Omar 16.5 H Plt Count 209 MPV 9.6 Immature Gran % (Auto) 0.3 Neut % (Auto) 84.1 Lymph % (Auto) 9.0 [place] % (Auto) 4.6 Eos % (Auto) 2.0 Baso % (Auto) 0.0 Immature Gran # (Auto) 0.08 H Neut # (Auto) 22.42 H Lymph # (Auto) 2.39 [place] # (Auto) 1.24 H Eos # (Auto) 0.53 H Baso # (Auto) 0.01 Absolute Nucleated RBC Nucleated RBC % (auto) RBC Morphology Unremarkable PT INR VBG pH VBG pCO2 VBG pO2 VBG HCO3 VBG O2 Saturation VBG Base Excess Barometric Pressure Sodium 141 Potassium 3.9 D Chloride 107 Carbon Dioxide 31 Anion Gap 3.0 BUN 16 Creatinine 1.05 Est Cr Clr Drug Dosing 39.8 Est GFR ( Amer) 55.7 Est GFR (Non-Af Amer) 48.1 BUN/Creatinine Ratio 14.9 Glucose 92 POC Glucose 95 Estimat Average Glucose Hemoglobin A1c Lactate Calcium 8.1 L Phosphorus 3.2 Magnesium 1.9 Total Bilirubin AST ALT Alkaline Phosphatase Troponin I Total Protein Albumin Globulin Albumin/Globulin Ratio Lipase Procalcitonin Urine Color Urine Appearance Urine pH Ur Specific [place] Urine Protein Urine Glucose (UA) Urine Ketones Urine Blood Urine Nitrite Urine Bilirubin Urine Urobilinogen Ur Leukocyte Esterase Urine WBC (Auto) Urine RBC (Auto) U Hyaline Cast (Auto) U Epithel Cells (Auto) Urine Bacteria (Auto) Ur Renal Epithelial Cell Granular Casts Urine Mucus Nasal Screen MRSA (PCR) Influenza Type A (PCR) Influenza Type B (PCR) 11/21/19 11/21/19 11/21/19 04:36 04:36 04:36 WBC RBC Hgb Hct MCV MCH MCHC RDW Std Deviation RDW Coeff of Omar Plt Count MPV Immature Gran % (Auto) Neut % (Auto) Lymph % (Auto) [place] % (Auto) Eos % (Auto) Baso % (Auto) Immature Gran # (Auto) Neut # (Auto) Lymph # (Auto) [place] # (Auto) Eos # (Auto) Baso # (Auto) Absolute Nucleated RBC Nucleated RBC % (auto) RBC Morphology PT INR VBG pH VBG pCO2 VBG pO2 VBG HCO3 VBG O2 Saturation VBG Base Excess Barometric Pressure Sodium Potassium Chloride Carbon Dioxide Anion Gap BUN Creatinine Est Cr Clr Drug Dosing Est GFR ( Amer) Est GFR (Non-Af Amer) BUN/Creatinine Ratio Glucose POC Glucose Estimat Average Glucose 148 Hemoglobin A1c 6.8 H Lactate 1.5 Calcium Phosphorus Magnesium Total Bilirubin AST ALT Alkaline Phosphatase Troponin I Total Protein Albumin Globulin Albumin/Globulin Ratio Lipase Procalcitonin 12.30 H Urine Color Urine Appearance Urine pH Ur Specific [place] Urine Protein Urine Glucose (UA) Urine Ketones Urine Blood Urine Nitrite Urine Bilirubin Urine Urobilinogen Ur Leukocyte Esterase Urine WBC (Auto) Urine RBC (Auto) U Hyaline Cast (Auto) U Epithel Cells (Auto) Urine Bacteria (Auto) Ur Renal Epithelial Cell Granular Casts Urine Mucus Nasal Screen MRSA (PCR) Influenza Type A (PCR) Influenza Type B (PCR) 11/21/19 08:56 WBC RBC Hgb Hct MCV MCH MCHC RDW Std Deviation RDW Coeff of Omar Plt Count MPV Immature Gran % (Auto) Neut % (Auto) Lymph % (Auto) [place] % (Auto) Eos % (Auto) Baso % (Auto) Immature Gran # (Auto) Neut # (Auto) Lymph # (Auto) [place] # (Auto) Eos # (Auto) Baso # (Auto) Absolute Nucleated RBC Nucleated RBC % (auto) RBC Morphology PT INR VBG pH VBG pCO2 VBG pO2 VBG HCO3 VBG O2 Saturation VBG Base Excess Barometric Pressure Sodium Potassium Chloride Carbon Dioxide Anion Gap BUN Creatinine Est Cr Clr Drug Dosing Est GFR ( Amer) Est GFR (Non-Af Amer) BUN/Creatinine Ratio Glucose POC Glucose 100 H Estimat Average Glucose Hemoglobin A1c Lactate Calcium Phosphorus Magnesium Total Bilirubin AST ALT Alkaline Phosphatase Troponin I Total Protein Albumin Globulin Albumin/Globulin Ratio Lipase Procalcitonin Urine Color Urine Appearance Urine pH Ur Specific [place] Urine Protein Urine Glucose (UA) Urine Ketones Urine Blood Urine Nitrite Urine Bilirubin Urine Urobilinogen Ur Leukocyte Esterase Urine WBC (Auto) Urine RBC (Auto) U Hyaline Cast (Auto) U Epithel Cells (Auto) Urine Bacteria (Auto) Ur Renal Epithelial Cell Granular Casts Urine Mucus Nasal Screen MRSA (PCR) Influenza Type A (PCR) Influenza Type B (PCR) PG Care Time/CCT Total # of Minutes Spent Total Time Spent with Patient: Total time spent is greater than 50% in coordination of care (as documented) at patient's floor/unit and/or counseling patient: Coding Level of Care Code 50561 Subseq Hosp Care Lvl 2 Diagnoses Septic shock A41.9; R65.21 Pneumonia J18.9 Laterality: right Lung location: middle lobe of lung Pneumonia type: due to unspecified organism Metabolic encephalopathy G93.41 ARF (acute renal failure) N17.9 Acute renal failure type: unspecified Hypokalemia E87.6 Recurrent UTI N39.0 Arteriosclerosis of coronary artery I25.10 Chronic reflux esophagitis K21.0 DM 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 E11.9 Fibromyalgia M79.7 Hypercholesterolemia E78.00 Orthostatic hypotension I95.1 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 M06.00 Urinary incontinence R32 Hypothyroid E03.9 Hypothyroidism type: acquired Chronic back pain M54.9; G89.29 Depression F32.89 Depression Type: other depression Abnormal CT scan, lung R91.8 Chronic respiratory failure J96.10 Colostomy status Z93.3 DVT prophylaxis Z29.9 (1) ARF (acute renal failure) Acute renal failure type: unspecified Qualified Code(s): N17.9 - Acute kidney failure, unspecified (2) Depression Depression Type: other depression Qualified Code(s): F32.89 - Other specified depressive episodes (3) Hypothyroid Hypothyroidism type: acquired Qualified Code(s): E03.9 - Hypothyroidism, unspecified (4) Pneumonia Laterality: right Lung location: middle lobe of lung Pneumonia type: due to unspecified organism Qualified Code(s): J18.9 - Pneumonia, unspecified organism
--- NOTE | 2019-11-21 10:58 | Electrocardiogram Report ---
Test Reason : Blood Pressure : / mmHG Vent. Rate : 133 BPM Atrial Rate : 133 BPM P-R Int : 112 ms QRS Dur : 116 ms QT Int : 306 ms P-R-T Axes : 033 072 -02 degrees QTc Int : 455 ms Poor data quality, interpretation may be adversely affected Sinus tachycardia Low voltage QRS Incomplete right bundle branch block Abnormal ECG When compared with ECG of 18-JUL-2019 19:38, Vent. rate has increased BY 48 BPM QRS duration has increased Inverted T waves have replaced nonspecific T wave abnormality in Anterior leads Confirmed by Scot Villa ([id number]) on 11/21/2019 10:57:26 AM Referred By: REFERRED SELF Confirmed By:Scot Villa
[2019-11-21] MEDS ORDERED: VANCOMYCIN HCL 1,250 MG in SODIUM CHLORIDE 0.9% 250 ML IV SCH (12:00)
--- NOTE | 2019-11-21 13:37 | Infectious Disease Consult ---
Date of Consultation November 21, 2019 Assessment & Plan (1) Pneumonia: (2) Severe sepsis: continue abx, consider atypical coverage as well for pna. unclear significance of + urine culture, only 1-5 wbc and significant ep cells, ? contaminant, if concerned for uti, would repeat ua and culture. follow final culture results. continue supportive care. History of Present Illness Attending Physician: Sebas Winkler pt admitted with change in mental status and fever at home. family present, state much improved today. tmax 39.3. started on imipenem and vanco. has h/o uti, UA 1-5 wbc, >30 ep and +4 bacteria, gnr on urine culture, final pending. ct/cxr in ER showed right pna, she does admit to sob, on home O2, no cough, no sputum, no cp. no f/c on my exam. not hungry but denies abd pain, no n/v/d. tolerating abx. wbc elevated at 31 in ER, now 26, procalcitonin 12. was on norepi upon admission bp 117 systolic on my exam. Flu negative. Allergies Allergy/AdvReac Type Severity Reaction Status Date / Time nitrofurantoin Allergy Severe HIVES Verified 11/20/19 10:54 scallops Allergy Severe THROAT Verified 11/20/19 10:54 SWELLS Cipro Allergy Intermediate HIVES Verified 06/03/18 16:34 ciprofloxacin Allergy Intermediate HIVES Verified 11/20/19 10:54 latex Allergy Intermediate RASH Verified 11/20/19 10:54 Quinolones Allergy Intermediate HIVES Verified 11/20/19 10:54 fluticasone Allergy Unknown ADVAIR-UNKN Verified 11/20/19 10:54 OWN salmeterol Allergy Unknown ADVAIR Verified 11/20/19 10:54 shellfish derived Allergy SCALLOPS-THROAT Verified 11/20/19 10:54 SWELLS celecoxib AdvReac Intermediate barretts Verified 11/20/19 10:54 esophagus lactose AdvReac Intermediate GI UPSET Verified 11/20/19 10:54 milk AdvReac Intermediate LACTOSE Verified 11/20/19 10:54 INTOLERANT morphine AdvReac Intermediate NAUSEA AND Verified 11/20/19 10:54 VOMITING Home Medications Home Medications Medication Instructions Recorded Confirmed Type aspirin 81 mg tablet,delayed 81 mg PO QAM 07/07/18 11/20/19 History release cholecalciferol (vitamin D3) 50 2,000 units PO QAM 07/07/18 11/20/19 History mcg (2,000 unit) capsule fexofenadine 60 mg tablet 60 mg PO QAM tab 07/07/18 11/20/19 History nitroglycerin 0.4 mg sublingual 0.4 mg SL Q5M PRN #1 tab 07/07/18 11/20/19 Rx tablet duloxetine [Cymbalta] 60 mg PO QAM 08/10/18 11/20/19 History fluticasone propionate [Flonase 2 spray INTRANASAL DAILY PRN 08/10/18 11/20/19 History Allergy Relief] ondansetron HCl [Zofran] 8 mg PO Q6 PRN 08/10/18 11/20/19 History Ocuvite with Lutein 1 tab PO QAM 08/31/18 11/20/19 History cyanocobalamin (vitamin B-12) 1,000 mcg PO QAM 08/31/18 11/20/19 History [Vitamin B-12] gabapentin 300 mg PO TID 09/26/18 11/20/19 History polyethylene glycol 3350 [Miralax] 17 gm PO QAM PRN 09/26/18 11/20/19 History vitamin B complex 1 tab PO QAM 09/26/18 11/20/19 History Azo Urinary Pain Relief 97.5 mg PO TID PRN 11/07/18 11/20/19 History acetaminophen [Tylenol Extra 1,000 mg PO PM 01/03/19 11/20/19 History Strength] levothyroxine 88 mcg tablet 88 mcg PO QAM 03/28/19 11/20/19 History clopidogrel [Plavix] 75 mg PO QAM 05/07/19 11/20/19 History lidocaine 1 applic TOPICAL QID PRN 05/07/19 11/20/19 History quetiapine 200 mg tablet 200 mg PO HS #30 tab 05/26/19 11/20/19 Rx hydroxychloroquine 200 mg tablet 200 mg PO QAM #30 tab 06/08/19 11/20/19 Rx prazosin 1 mg PO HS 07/18/19 11/20/19 History prednisone 10 mg PO DIRECTED #90 tab 07/22/19 11/20/19 Rx midodrine 5 mg tablet 5 mg PO TID #90 tab 08/02/19 11/20/19 Rx dexlansoprazole 60 mg 60 mg PO QAM #90 cap 08/09/19 11/20/19 Rx capsule,biphase delayed release atorvastatin 40 mg tablet 40 mg PO QAM #30 tab 08/30/19 11/20/19 Rx mirabegron 50 mg tablet,extended 50 mg PO DAILY #90 tab 09/28/19 11/20/19 Rx release 24 hr diclofenac sodium 1 % topical gel 4 gm TOP QID PRN #300 gm MDD 16G 11/01/19 11/20/19 Rx to any one affected joint conjugated estrogens 0.625 mg/gram See Rx Instructions PV DAILY #30 gm 11/17/19 11/20/19 Rx vaginal cream oxycodone 10 mg tablet 10 mg PO BID #60 tab 11/17/19 11/20/19 Rx cefdinir 300 mg PO BID 11/20/19 11/20/19 History famotidine 40 mg PO HS 11/20/19 11/20/19 History duloxetine 30 mg capsule,delayed 30 mg PO DAILY #90 cap 11/21/19 Rx release Patient History Medical History Acute gastritis (03/23/12) Adrenocortical insufficiency (Chronic) Allergic rhinitis (Chronic) Anemia of chronic disease (Chronic) Arteriosclerosis of coronary artery (Chronic) Asthma (Chronic) Back pain (Chronic) Barretts esophagus (Chronic) Cholecystectomy (03/10/13) Chronic back pain (Chronic) Chronic cystitis (Chronic) Chronic reflux esophagitis (Chronic) Colostomy present Colovaginal fistula (Chronic) Constipation (Chronic) Cyclic citrullinated peptide (CCP) antibody positive (Chronic) Depression (Chronic 03/10/13) Diabetes mellitus Dilated bile duct (Chronic) Diverticula of colon 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) Esophageal spasm (Chronic) Falls frequently Fatigue (Chronic) Fibromyalgia (Chronic) Herpes simplex type 1 infection (Chronic) Hiatal hernia (Chronic) History of colitis History of pneumonia Hypercholesterolemia (Chronic) Impaired mobility and ADLs (Chronic) Infected abrasion of great toe of left foot Infected abrasion of great toe of right foot Iron deficiency anemia (Chronic) Lactose intolerance Leukocytosis (Chronic) snf (current) use of systemic steroids (Chronic) Long-term use of hydroxychloroquine (Chronic) Low blood pressure Lumbar canal stenosis (Chronic) Major depressive disorder, 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) Orthostatic hypotension (Chronic) Oxygen dependent (Chronic) Peripheral edema (Chronic) Pituitary adenoma (03/10/13) Polyarthritis (Chronic) Poor balance (Chronic) 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) Rheumatoid factor positive with cyclic citrullinated peptide (CCP) antibody negative (Chronic) Skin lesion of face (Chronic) Slurred speech Solitary pulmonary nodule (Chronic) Stasis ulcer (Chronic) Steroid-induced osteopenia (Chronic) Tension headache (Chronic) TIA (transient ischemic attack) Urinary incontinence (Chronic) Urinary retention (Chronic) UTI (urinary tract infection) (Resolved) Vasovagal syncope (03/10/13) Vitamin D deficiency, unspecified (Chronic) Surgical History H/O: hysterectomy History of hip replacement History of surgical removal of pituitary gland History of surgical removal of pituitary gland Hx of cholecystectomy Family History Grandmother Breast cancer Other Cancer Diabetes Gallbladder disease Heart disease Hypertension Seizure Social History Preferred Language: [place] Communication Ability: Effective Visual Impairment: No Limitations Hearing Ability: Hard of Hearing [employer] Farm[employer] Required: No Beliefs That Will Affect Care: Yazdanism Yazdanism Beliefs: episcopal marital status: / Current Living Situation: Alone Current Living Situation Comment: has caretakers during day Other Information That Helps Us Care for You: No Feels Safe at Home: Yes Safety Concerns: Feels Safe At This Time Smoking Status: Never smoker Tobacco Type: cigarettes ; Second Hand Exposure: No ; Hx Alcohol Use: No Hx Substance Use: No Review of Systems Review of Systems: All systems reviewed & are unremarkable except as noted in HPI & below Physical Exam Constitutional: WD/WN, vitals as above Eyes: PERRL, conjunctivae normal, anicteric sclerae ENMT: external ear and nose normal, oropharynx normal Neck: normal visual inspection Respiratory: normal respiratory effort, lungs clear to auscultation Auscultation: + diminished lung sounds Cardiovascular: RRR, no murmur, no edema Gastrointestinal (Abdomen): normal bowel sounds, soft, nontender, no hepatosplenomegaly Musculoskeletal: no cyanosis or clubbing, extremities motor strength 5/5 Skin: no rashes, warm and dry Psychiatric: A+Ox3, euthymic affect Results & Data ([facility]) Vital Signs (Past 12 Hours) Vital Signs Temp Pulse Resp BP Pulse Ox 11/21/19 13:16 112 H 20 112/69 94 11/21/19 12:41 108 H 27 H 120/68 95 11/21/19 11:41 37.2 C 107 H 29 H 117/48 L 94 11/21/19 10:41 106 H 21 113/48 L 94 11/21/19 10:32 105 H 23 105/59 L 96 11/21/19 10:31 105 H 24 105/59 L 91 11/21/19 10:00 107 H 25 H 93 11/21/19 08:41 104 H 36 H 118/49 L 91 11/21/19 08:00 100 H 11/21/19 07:41 36.8 C 102 H 26 H 129/54 L 95 11/21/19 06:41 106 H 18 124/68 11/21/19 05:41 100 H 23 148/58 H 97 11/21/19 04:40 100 H 28 H 134/55 L 97 11/21/19 03:40 36.8 C 95 H 26 H 122/60 95 11/21/19 02:42 98 H 30 H 94/47 L 95 11/21/19 01:41 94 H 30 H 112/46 L 98 PG Care Time/CCT Total # of Minutes Spent Total Time Spent with Patient: Total time spent is greater than 50% in coordination of care (as documented) at patient's floor/unit and/or counseling patient: Coding Level of Care Code 32502 Inpt Consult Level 4 Diagnoses Pneumonia J18.9 Laterality: right Lung location: middle lobe of lung Pneumonia type: due to unspecified organism Severe sepsis A41.9; R65.20 (1) Pneumonia Laterality: right Lung location: middle lobe of lung Pneumonia type: due to unspecified organism Qualified Code(s): J18.9 - Pneumonia, unspecified organism
[2019-11-21] MEDS ORDERED: MINERAL OIL ENEMA 133 ML BTL PR SCH (15:00)
--- NOTE | 2019-11-21 15:03 | Electrocardiogram Report ---
Test Reason : Blood Pressure : / mmHG Vent. Rate : 104 BPM Atrial Rate : 104 BPM P-R Int : 136 ms QRS Dur : 116 ms QT Int : 368 ms P-R-T Axes : 055 076 016 degrees QTc Int : 483 ms Sinus tachycardia Low voltage QRS Incomplete right bundle branch block Nonspecific T wave abnormality Abnormal ECG When compared with ECG of 20-NOV-2019 10:25, (unconfirmed) No significant change was found Confirmed by Scot Villa ([id number]) on 11/21/2019 3:03:19 PM Referred By: REFERRED SELF Confirmed By:Scot Villa
[2019-11-21] MEDS: LIDOCAINE 5% 1 PATCH TD SCH ×2 (15:55→16:00)
--- NOTE | 2019-11-21 16:19 | Billing Data ---
Date of Service November 21, 2019 Coding Level of Care Code 79685 Subseq Hosp Care Lvl 3
[2019-11-21] MEDS ORDERED: ACETAMINOPHEN 325 MG TAB PO PRN (17:03)
[2019-11-21] MEDS: FAMOTIDINE 20 MG TAB PO SCH (20:46)
[2019-11-21] MEDS: PRAZOSIN HCL 1 MG CAP PO SCH (20:47)
[2019-11-21] MEDS: QUETIAPINE FUMARATE 200 MG TAB PO SCH (20:48)
[2019-11-21] MEDS: ACETAMINOPHEN 500 MG TAB PO SCH (20:49)
[2019-11-21] MEDS: OXYCODONE HCL IR 5 MG TAB (IMMEDIATE RELEASE) PO SCH (21:01)
[2019-11-21] MEDS: DOXYCYCLINE HYCLATE 100 MG CAP PO SCH (21:59)
[2019-11-22] MEDS: IMIPENEM/CILASTATIN SODIUM 300 MG in DEXTROSE 5% 100 ML IV SCH (04:31)
[2019-11-22 04:43] LABS: Basophils # (auto) 0.03 K/uL (0-0.2); Basophils % (auto) 0.2 %; Eosinophils # (auto) 0.63 K/uL (0-0.5); Hemoglobin 8.1 g/dL (12.0-16.0); Immature Granulocytes # (auto) 0.03 K/uL (0.00-0.02); Immature Granulocytes % (auto) 0.2 %; Lymphocytes # (auto) 1.32 K/uL (1.2-3.4); Lymphocytes % (auto) 10.4 %; Mean Corpuscular Hemoglobin 26.8 pg (25-34); Mean Corpuscular Volume 89.4 fL (80-100); Mean Platelet Volume 9.8 fL (7.4-10.4); Monocytes # (auto) 0.94 K/uL (0.11-0.59); Monocytes % (auto) 7.4 %; Neutrophils # (auto) 9.74 K/uL (1.4-6.5); Neutrophils % (auto) 76.8 %; Platelet Count 200 K/uL (130-400); RDW Coefficient of Variation 16.6 % (11.5-14.5); Red Blood Count 3.02 M/uL (4.2-5.4); White Blood Count 12.69 K/uL (4.8-10.8)
[2019-11-22 04:57] LABS: BUN Creatinine Ratio 13.2 (10-20); Calcium 8.6 mg/dl (8.5-10.1); Creatinine Clr Calc Pharmacy 36.4 ml/min; Est GFR (African American) 52.1; Est GFR (Non-African American) 44.9; Magnesium 2.2 mg/dl (1.8-2.4); Potassium 3.7 mmol/L (3.5-5.1)
[2019-11-22] MEDS: LEVOTHYROXINE SODIUM 88 MCG TABLET PO SCH (06:18)
[2019-11-22] MEDS: HEPARIN SOD 5,000 UNIT/0.5 ML VIAL SQ SCH ×3 (06:18→21:24)
--- NOTE | 2019-11-22 07:03 | XRay Report ---
XR chest 1V portable CLINICAL HISTORY: Abnormal chest x-ray. Follow-up study. COMPARISON STUDY: November 21, 2019 FINDINGS: The heart remains mildly enlarged. There is aortic tortuosity/ectasia. There is no failure. There is further improvement in the right lung airspace opacities. A linear opacity at the left lung bases likely atelectatic.[ IMPRESSION: Continued interval improvement in the right lung airspace opacities. ACT 112: Negative or not required by law. Electronically signed by: Fredy Boyd M.D. 11/22/2019 7:01 AM
--- NOTE | 2019-11-22 07:08 | Critical Care Progress Note ---
Date of Service November 22, 2019 Assessment & Plan (1) Severe sepsis: Reason Critically Ill: is an 88-year-old female with a complex past medical history admitted to the ICU with severe sepsis, presumptively secondary to a right middle lobe pneumonia with concern for aspiration. PLAN: Neuro: Acute metabolic encephalopathy -resolved - back to baseline Resp: Acute hypoxic respiratory failure -resolved - patient saturating well on home dose of oxygen (3L) Right middle lobe pneumonia -Presumptive aspiration -Imipenem discontinued in favor of ertapenem -primary care team added doxycycline PO for atypical coverage -flutter valve to aid expectoration CV: Hypotension -resolved s/p volume resuscitation CAD/CHF -continue aspirin/plavix/statin Fluids/Renal: Acute renal failure -resolved - creatinine at baseline -IVF discontinued ID: Blood, urine and sputum cultures sent -> urine growing ESBL Klebsiella -> sensitive to ertapenem ->bcx negative x 24 h -> unable to obtain sputum cx Appreciate ID recommendations GI/Nutrition: Diabetic diet Abdominal pain -worsened by fecal impaction distal to ileostomy site -no BM after mineral oil enema through stoma - trial of enema through back passage -KUB negative for bowel obstruction Barretts esophagus -continue home PPI and H2 zeinba Heme: Baseline anemia -Consented for Blood product -FOBT positive, however Hgb has remained stable at approx 8. Continue to trend. : -continue home mirabegron -d/c benitez catheter Endocrine: ICU hyperglycemia protocol. HbA1c 6.8% Continue home dose of 10mg of prednisone daily Continue home RA medications Vascular access: PIV: consented for central venous access DVT Prophylaxis: 5000 units heparin TID Code Status: DNR/DNI in event of cardiac arrest. Palliative consulted. Patient stable for downgrade out of ICU today. (2) ARF (acute renal failure): (3) Abnormal CT scan, lung: (4) Acute hypoxemic respiratory failure: (5) Pneumonia: (6) Incomplete bladder emptying: (7) Colostomy status: (8) Adrenocortical insufficiency: (9) Esophageal motility disorder: (10) Colovaginal fistula: (11) ESBL (extended spectrum beta-lactamase) producing bacteria infection: (12) Acute metabolic encephalopathy: Admission and Anticipated Discharge Date Admission Date: November 20, 2019 Supervising Physician Co-Signing Physician Notes Dr. Shaikh was resident physician during care of patient. I separately evaluated patient for amaro portions of the history and the exam. I was present during the critical portion of medical decision making, and I discussed the case with the resident. I generally agree with the findings and plan. Patient still having improvement, stable for downgrade out of the ICU. Transition from imipenem to ertapenem as I do not believe she needs pseudomonal coverage however this will allow for better dosing of IV antibiotics with anticipated duration of 7 days. Given risk factor for ESBL I would finish the entire course of a carbapenem. Subjective Ms. Neal reports she feels slightly better today. She was seen sitting up in a chair and eating breakfast. She has not had any output in her ostomy since 1899 yesterday, when her ostomy bag was changed. She states her abdominal pain is no worse than usual. She denies nausea or vomiting. Review of Systems Constitutional: no fever and no chills Respiratory: no cough and no dyspnea Cardiovascular: no chest pain Gastrointestinal: + abdominal pain; no nausea and no vomiting Physical Exam Constitutional: WD/WN, vitals as above Respiratory: normal respiratory effort; no respiratory distress Cardiovascular: Rate/Rhythm: regular rate and regular rhythm Heart Sounds: no murmur Gastrointestinal (Abdomen): Inspection/Auscultation: + abdomen distended Percussion/Palpation: + abdomen tender (mildly tender throughout, worst in LLQ. ) and abdomen soft ostomy in place over left side of abdomen - no output noted Psychiatric: Orientation: alert, oriented to person and cooperative; + not oriented to place and + not oriented to time Results & Data ([facility]) Vital Signs (Past 12 Hours) Vital Signs Temp Pulse Resp BP Pulse Ox 11/22/19 06:00 82 24 121/49 L 96 11/22/19 05:00 86 24 95/44 L 96 11/22/19 04:00 37 C 90 22 118/56 L 97 11/22/19 03:00 90 24 86/48 L 94 11/22/19 02:00 90 20 114/41 L 94 11/22/19 01:00 94 H 17 86/47 L 94 11/22/19 00:00 36.9 C 96 H 22 110/54 L 94 11/21/19 23:00 102 H 18 132/54 L 93 11/21/19 22:00 103 H 20 121/78 95 11/21/19 21:00 101 H 20 136/62 96 11/21/19 20:00 37 C 100 H 17 126/68 96 Resident Activity Tracking Resident Involvement: Resident Care Provided Care Provided: Adult Hospital Medicine (1) ARF (acute renal failure) Acute renal failure type: unspecified Qualified Code(s): N17.9 - Acute kidney failure, unspecified (2) Pneumonia Laterality: right Lung location: middle lobe of lung Pneumonia type: due to unspecified organism Qualified Code(s): J18.9 - Pneumonia, unspecified organism
[2019-11-22] MEDS: CEROVITE ADV FORMULA TAB PO SCH (08:07)
[2019-11-22] MEDS: CLOPIDOGREL BISULFATE 75 MG TAB PO SCH (08:07)
[2019-11-22] MEDS: DULOXETINE HCL 30 MG CAP PO SCH (08:07)
[2019-11-22] MEDS: PANTOprazole 40 MG TAB PO SCH (08:08)
[2019-11-22] MEDS: HYDROXYCHLOROQUINE SULFATE 200 MG TAB PO SCH (08:08)
[2019-11-22] MEDS: FEXOFENADINE 60 MG TAB PO SCH (08:08)
[2019-11-22] MEDS: MIRABEGRON ER 25 MG TAB PO SCH (08:08)
[2019-11-22] MEDS: MIDODRINE HCL 2.5 MG TAB PO SCH ×3 (08:08→21:23)
[2019-11-22] MEDS: LIDOCAINE 5% 1 PATCH TD SCH (08:09)
[2019-11-22] MEDS: predniSONE 10 MG TABLET PO SCH (08:09)
[2019-11-22] MEDS: GABAPENTIN 300 MG CAP PO SCH ×3 (08:09→21:21)
[2019-11-22] MEDS: ASPIRIN 81 MG ECTAB PO SCH (08:09)
[2019-11-22] MEDS: DOXYCYCLINE HYCLATE 100 MG CAP PO SCH ×2 (08:10→21:20)
[2019-11-22] MEDS: OXYCODONE HCL IR 5 MG TAB (IMMEDIATE RELEASE) PO SCH ×2 (08:13→21:26)
[2019-11-22] MEDS: INSULIN ASPART 100 UNITS/ML 3 ML PEN SC SCH ×4 (08:14→21:24)
--- NOTE | 2019-11-22 08:35 | XRay Report ---
XR KUB/Abdomen 1 view CLINICAL HISTORY: no ostomy output, eval obstruction COMPARISON STUDY: 02/07/2019 FINDINGS: There is a left lower quadrant ostomy. There is no pathologic bowel dilatation. There are s urgical clips within the right upper quadrant consistent with a prior cholecystectomy. There are bila teral hip arthroplasties. Small pleural effusions are suspected. IMPRESSION: Nonobstructive bowel gas pattern. ACT 112: Negative or not required by law. Electronically signed by: Fredy Boyd M.D. 11/22/2019 8:34 AM
[2019-11-22] MEDS ORDERED: MINERAL OIL ENEMA 133 ML BTL PR ONE (10:15)
[2019-11-22] MEDS ORDERED: ERTAPENEM CONSULT ACTIVE PRN (11:06)
[2019-11-22] MEDS: ERTAPENEM SODIUM 1,000 MG in SODIUM CHLORIDE 0.9% 50 ML IV SCH (11:56)
--- NOTE | 2019-11-22 11:58 | Infectious Disease Progress Nt ---
Date of Service November 22, 2019 Assessment & Plan (1) Pneumonia: (2) Severe sepsis: continue abx. unclear significance of + urine culture, only 1-5 wbc and significant ep cells, ? contaminant, if concerned for uti, would repeat ua and culture. follow final culture results. continue supportive care. would give imipenem x 7 days. Admission and Anticipated Discharge Date Admission Date: November 20, 2019 Subjective pt seen in f/u, oob, eating lunch. feeling much improved. blood cultures negative, afebrile. wbc significantly improved. remains on imiepenem, tolerating well. urine culture growing ESBL +K. pneumo. breathing much improved, no cp, sob, cough. cxr improved. Review of Systems Review of Systems: All systems reviewed & are unremarkable except as noted in HPI & below Physical Exam Constitutional: WD/WN, vitals as above Eyes: PERRL, conjunctivae normal, anicteric sclerae ENMT: external ear and nose normal, oropharynx normal Neck: normal visual inspection Respiratory: normal respiratory effort, lungs clear to auscultation Auscultation: + diminished lung sounds Cardiovascular: RRR, no murmur, no edema Gastrointestinal (Abdomen): normal bowel sounds, soft, nontender, no hepatosplenomegaly Musculoskeletal: no cyanosis or clubbing, extremities motor strength 5/5 Skin: no rashes, warm and dry Psychiatric: A+Ox3, euthymic affect Results & Data ([facility]) Vital Signs (Past 12 Hours) Vital Signs Temp Pulse Pulse Resp BP BP Pulse Ox 11/22/19 10:43 96 H 30 H 112/61 94 11/22/19 09:41 94 H 43 H 126/46 L 95 11/22/19 08:41 95 H 25 H 120/47 L 95 11/22/19 07:42 92 H 19 140/67 96 11/22/19 07:00 37.0 C 85 19 96 11/22/19 06:00 82 24 121/49 L 96 11/22/19 05:00 86 24 95/44 L 96 11/22/19 04:00 37 C 90 22 118/56 L 97 11/22/19 03:00 90 24 86/48 L 94 11/22/19 02:00 90 20 114/41 L 94 11/22/19 01:00 94 H 17 86/47 L 94 11/22/19 00:00 36.9 C 96 H 22 110/54 L 94 PG Care Time/CCT Total # of Minutes Spent Total Time Spent with Patient: Total time spent is greater than 50% in coordination of care (as documented) at patient's floor/unit and/or counseling patient: Coding Level of Care Code 56817 Subseq Hosp Care Lvl 3 Diagnoses Pneumonia J18.9 Laterality: right Lung location: middle lobe of lung Pneumonia type: due to unspecified organism Severe sepsis A41.9; R65.20 (1) Pneumonia Laterality: right Lung location: middle lobe of lung Pneumonia type: due to unspecified organism Qualified Code(s): J18.9 - Pneumonia, unspecified organism
--- NOTE | 2019-11-22 12:06 | Electrocardiogram Report ---
Test Reason : Blood Pressure : / mmHG Vent. Rate : 089 BPM Atrial Rate : 089 BPM P-R Int : 146 ms QRS Dur : 118 ms QT Int : 382 ms P-R-T Axes : 039 053 015 degrees QTc Int : 464 ms Normal sinus rhythm Low voltage QRS Incomplete right bundle branch block Nonspecific T wave abnormality Abnormal ECG When compared with ECG of 21-NOV-2019 08:00, No significant change was found Confirmed by Scot Villa ([id number]) on 11/22/2019 12:05:47 PM Referred By: REFERRED SELF Confirmed By:Scot Villa
--- NOTE | 2019-11-22 17:46 | Billing Data ---
Date of Service November 22, 2019 Coding Level of Care Code 03476 Subseq Hosp Care Lvl 2
[2019-11-22] MEDS: LACTOBACILLUS ACIDOPHILUS (FLORANEX) TAB PO SCH (18:40)
[2019-11-22] MEDS: FAMOTIDINE 20 MG TAB PO SCH (21:21)
[2019-11-22] MEDS: PRAZOSIN HCL 1 MG CAP PO SCH (21:22)
[2019-11-22] MEDS: QUETIAPINE FUMARATE 200 MG TAB PO SCH (21:22)
[2019-11-22] MEDS: ACETAMINOPHEN 500 MG TAB PO SCH (21:22)
--- NOTE | 2019-11-22 21:43 | Hospitalist Progress Note ---
Date of Service November 22, 2019 Assessment & Plan (1) Septic shock: 2nd to extensive right-sided pneumonia. +/- UTI however the bacteria in urine is likely asymptomatic bacteriuria. either way septic shock is resolved. only required pressors for brief period of time shortly after admission, and required brief period of stress-dose steroids. blood cx's cont to be negative. (2) Pneumonia: extensive, multilobar on right. cannot rule out aspiration. have to cover for gram negatives as well. MRSA swab negative. MRSA coverage d/c. imipenem changed to ertapenem today. ID recommending 7-day course of abx - cont ertapenem and doxy. blood cultures are negative. 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 this defer to ID and critical care team if this needs Rx but suspect we do not have to Rx (7) Arteriosclerosis of coronary artery: continue aspirin/plavix no ischemic symptoms at this time (8) Chronic reflux esophagitis: continue home meds (9) DM 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: diet-controlled SSI PRN (10) Fibromyalgia: continue home meds (11) Hypercholesterolemia: Holding statin for now (12) Orthostatic hypotension: cont midodrine BPs stable (13) 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: continue home meds including chronic prednisone did receive stress dose steroids hospital day #1 these have been weaned back to daily chronic dose (14) Urinary incontinence: continue home meds (15) Hypothyroid: continue home meds TSH 12/2018 was wnl recheck TSH in am (16) Chronic back pain: Holding oxycodone given AMS improved today Continue gabapentin Lidoderm patches prn voltaren prn heating pad (k-pad) 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 (no compression fractures) (17) Depression: continue home meds (18) Abnormal CT scan, lung: Pulm nodule noted on CT - 3mm, MAEDLEINE stable, no change in size (19) Chronic respiratory failure: Baseline home O2 is 3L NC HS scheduled with PRN daytime use will need to assess for continuous use at discharge (20) Colostomy status: no issues; bowel regimen (21) Chronic kidney disease, stage 3a: baseline CrCl 30s (22) DVT prophylaxis: Heparin family updated can move to med-tele PT/OT evals ordered Admission and Anticipated Discharge Date Admission Date: November 20, 2019 Subjective patient feeling much better today. more energy, improved appetite, confusion improved/resolved. 2 daughters at bedside - they are pleased with improvement. tele stable overnight. received an enema via ostomy but no results. enema also given via rectum per nursing staff. Review of Systems Constitutional: no fever, no chills and no anorexia Respiratory: + cough; no dyspnea Cardiovascular: no chest pain Gastrointestinal: no abdominal pain, no nausea and no vomiting Physical Exam Constitutional: no acute distress, not ill appearing and no altered mental status ENMT: external ear and nose normal, oropharynx normal Respiratory: + cough; no respiratory distress Auscultation: + crackles (RUL/RLL; improved today ) Cardiovascular: Rate/Rhythm: regular rate and regular rhythm Heart Sounds: normal S1 and normal S2; no murmur Vessels: posterior tibial pulses present and dorsalis pedis pulses present; no JVD Extremities: no edema Gastrointestinal (Abdomen): normal bowel sounds, soft, nontender, no hepatosplenomegaly ostomy, left abdomen, bag without stool Psychiatric: Orientation: alert, oriented to person, oriented to place and oriented to time Results & Data ([facility]) Vital Signs (Past 12 Hours) Vital Signs Temp Pulse Pulse Resp BP BP Pulse Ox 11/22/19 19:29 36.7 C 98 H 16 113/58 L 98 11/22/19 16:15 94 H 11/22/19 15:52 36.6 C 98 H 18 130/67 97 11/22/19 13:41 36.6 C 97 H 13 123/51 L 96 11/22/19 12:41 101 H 13 111/67 95 11/22/19 11:42 100 H 18 133/51 L 93 11/22/19 10:43 96 H 30 H 112/61 94 Laboratory Results Laboratory Results - last 24 hr 11/22/19 11/22/19 11/22/19 04:13 04:13 04:13 WBC 12.69 H D RBC 3.02 L Hgb 8.1 L Hct 27.0 L MCV 89.4 MCH 26.8 MCHC 30.0 L RDW Std Deviation 54.0 H RDW Coeff of Omar 16.6 H Plt Count 200 MPV 9.8 Immature Gran % (Auto) 0.2 Neut % (Auto) 76.8 Lymph % (Auto) 10.4 [place] % (Auto) 7.4 Eos % (Auto) 5.0 Baso % (Auto) 0.2 Immature Gran # (Auto) 0.03 H Neut # (Auto) 9.74 H Lymph # (Auto) 1.32 [place] # (Auto) 0.94 H Eos # (Auto) 0.63 H Baso # (Auto) 0.03 Sodium 142 Potassium 3.7 Chloride 108 H Carbon Dioxide 30 Anion Gap 4.0 BUN 15 Creatinine 1.11 Est Cr Clr Drug Dosing 36.4 Est GFR ( Amer) 52.1 Est GFR (Non-Af Amer) 44.9 BUN/Creatinine Ratio 13.2 Glucose 102 H POC Glucose Calcium 8.6 Phosphorus 4.0 Magnesium 2.2 Procalcitonin 16.81 H 11/22/19 11/22/19 11/22/19 06:25 07:27 11:31 WBC RBC Hgb Hct MCV MCH MCHC RDW Std Deviation RDW Coeff of Omar Plt Count MPV Immature Gran % (Auto) Neut % (Auto) Lymph % (Auto) [place] % (Auto) Eos % (Auto) Baso % (Auto) Immature Gran # (Auto) Neut # (Auto) Lymph # (Auto) [place] # (Auto) Eos # (Auto) Baso # (Auto) Sodium Potassium Chloride Carbon Dioxide Anion Gap BUN Creatinine Est Cr Clr Drug Dosing Est GFR ( Amer) Est GFR (Non-Af Amer) BUN/Creatinine Ratio Glucose POC Glucose 106 H 108 H 169 H Calcium Phosphorus Magnesium Procalcitonin 11/22/19 11/22/19 16:30 20:07 WBC RBC Hgb Hct MCV MCH MCHC RDW Std Deviation RDW Coeff of Omar Plt Count MPV Immature Gran % (Auto) Neut % (Auto) Lymph % (Auto) [place] % (Auto) Eos % (Auto) Baso % (Auto) Immature Gran # (Auto) Neut # (Auto) Lymph # (Auto) [place] # (Auto) Eos # (Auto) Baso # (Auto) Sodium Potassium Chloride Carbon Dioxide Anion Gap BUN Creatinine Est Cr Clr Drug Dosing Est GFR ( Amer) Est GFR (Non-Af Amer) BUN/Creatinine Ratio Glucose POC Glucose 196 H 115 H Calcium Phosphorus Magnesium Procalcitonin PG Care Time/CCT Total # of Minutes Spent Total Time Spent with Patient: Total time spent is greater than 50% in coordination of care (as documented) at patient's floor/unit and/or counseling patient: Coding Level of Care Code 03149 Subseq Hosp Care Lvl 3 Diagnoses Septic shock A41.9; R65.21 Pneumonia J18.9 Laterality: right Lung location: middle lobe of lung Pneumonia type: due to unspecified organism Metabolic encephalopathy G93.41 ARF (acute renal failure) N17.9 Acute renal failure type: unspecified Hypokalemia E87.6 Recurrent UTI N39.0 Arteriosclerosis of coronary artery I25.10 Chronic reflux esophagitis K21.0 DM 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 E11.9 Fibromyalgia M79.7 Hypercholesterolemia E78.00 Orthostatic hypotension I95.1 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 M06.00 Urinary incontinence R32 Hypothyroid E03.9 Hypothyroidism type: acquired Chronic back pain M54.9; G89.29 Depression F32.89 Depression Type: other depression Abnormal CT scan, lung R91.8 Chronic respiratory failure J96.10 Colostomy status Z93.3 Chronic kidney disease, stage 3a N18.3 DVT prophylaxis Z29.9 (1) ARF (acute renal failure) Acute renal failure type: unspecified Qualified Code(s): N17.9 - Acute kidney failure, unspecified (2) Depression Depression Type: other depression Qualified Code(s): F32.89 - Other specified depressive episodes (3) Hypothyroid Hypothyroidism type: acquired Qualified Code(s): E03.9 - Hypothyroidism, unspecified (4) Pneumonia Laterality: right Lung location: middle lobe of lung Pneumonia type: due to unspecified organism Qualified Code(s): J18.9 - Pneumonia, unspecified organism
[2019-11-23] MEDS: LEVOTHYROXINE SODIUM 88 MCG TABLET PO SCH (05:56)
[2019-11-23] MEDS: HEPARIN SOD 5,000 UNIT/0.5 ML VIAL SQ SCH ×3 (06:01→21:09)
[2019-11-23 06:28] LABS: Basophils # (auto) 0.02 K/uL (0-0.2); Basophils % (auto) 0.2 %; Eosinophils # (auto) 0.83 K/uL (0-0.5); Eosinophils % (auto) 9.8 %; Hematocrit (blood only) 25.8 % (37-47); Hemoglobin 7.8 g/dL (12.0-16.0); Immature Granulocytes # (auto) 0.03 K/uL (0.00-0.02); Immature Granulocytes % (auto) 0.4 %; Lymphocytes # (auto) 1.47 K/uL (1.2-3.4); Lymphocytes % (auto) 17.4 %; Mean Corpuscular Hemoglobin 26.9 pg (25-34); Mean Corpuscular Hgb Conc 30.2 g/dL (32-36); Mean Platelet Volume 9.7 fL (7.4-10.4); Monocytes # (auto) 0.87 K/uL (0.11-0.59); Monocytes % (auto) 10.3 %; Neutrophils # (auto) 5.21 K/uL (1.4-6.5); Neutrophils % (auto) 61.9 %; Platelet Count 214 K/uL (130-400); RDW Coefficient of Variation 16.2 % (11.5-14.5); RDW Standard Deviation 53.1 fL (36.4-46.3); White Blood Count 8.43 K/uL (4.8-10.8)
[2019-11-23 06:52] LABS: RBC Morphology Unremarkable
[2019-11-23 07:05] LABS: BUN Creatinine Ratio 14.8 (10-20); Calcium 8.5 mg/dl (8.5-10.1); Est GFR (African American) 58.4; Est GFR (Non-African American) 50.4; Potassium 3.8 mmol/L (3.5-5.1)
[2019-11-23 07:15] LABS: Thyroid Stimulating Hormone 1.65 uIu/ml (0.300-4.500)
[2019-11-23] MEDS ORDERED: bisacodyL 5 MG TABEC PO ONE (07:49)
[2019-11-23] MEDS: LIDOCAINE 5% 1 PATCH TD SCH (08:12)
[2019-11-23] MEDS: POLYETHYLENE (MIRALAX) 17 GM PACK PO SCH ×3 (08:13→11:23)
[2019-11-23] MEDS: PANTOprazole 40 MG TAB PO SCH (08:13)
[2019-11-23] MEDS: INSULIN ASPART 100 UNITS/ML 3 ML PEN SC SCH ×4 (08:13→21:10)
[2019-11-23] MEDS: CLOPIDOGREL BISULFATE 75 MG TAB PO SCH (08:14)
[2019-11-23] MEDS: CEROVITE ADV FORMULA TAB PO SCH (08:14)
[2019-11-23] MEDS: predniSONE 10 MG TABLET PO SCH (08:14)
[2019-11-23] MEDS: OXYCODONE HCL IR 5 MG TAB (IMMEDIATE RELEASE) PO SCH ×2 (08:14→21:13)
[2019-11-23] MEDS: MIDODRINE HCL 2.5 MG TAB PO SCH ×3 (08:14→21:09)
[2019-11-23] MEDS: DOXYCYCLINE HYCLATE 100 MG CAP PO SCH ×2 (08:14→21:09)
[2019-11-23] MEDS: GABAPENTIN 300 MG CAP PO SCH ×3 (08:14→21:08)
[2019-11-23] MEDS: MIRABEGRON ER 25 MG TAB PO SCH (08:14)
[2019-11-23] MEDS: ASPIRIN 81 MG ECTAB PO SCH (08:15)
[2019-11-23] MEDS: LACTOBACILLUS ACIDOPHILUS (FLORANEX) TAB PO SCH ×3 (08:15→17:59)
[2019-11-23] MEDS: FEXOFENADINE 60 MG TAB PO SCH (08:15)
[2019-11-23] MEDS: DULOXETINE HCL 30 MG CAP PO SCH (08:15)
[2019-11-23] MEDS: HYDROXYCHLOROQUINE SULFATE 200 MG TAB PO SCH (08:15)
[2019-11-23] MEDS ORDERED: predniSONE 20 MG TAB PO STA (11:02)
--- NOTE | 2019-11-23 11:03 | Hospitalist Progress Note ---
Date of Service November 23, 2019 Assessment & Plan (1) Septic shock: 2nd to extensive right-sided pneumonia. +/- UTI however the bacteria in urine is likely asymptomatic bacteriuria. either way septic shock is resolved. only required pressors for brief period of time shortly after admission, and required brief period of stress-dose steroids. blood cx's cont to be negative. (2) Pneumonia: extensive, multilobar on right. cannot rule out aspiration. have to cover for gram negatives as well. MRSA swab negative. imipenem changed to ertapenem. ID recommending 7-day course of abx - cont ertapenem and doxy. blood cultures are negative. today is day #4 of abx. wean O2 off if possible. 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 (7) Arteriosclerosis of coronary artery: continue aspirin/plavix no ischemic symptoms at this time (8) Chronic reflux esophagitis: continue home meds (9) DM 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: diet-controlled SSI PRN satisfactory BSGs at this time (10) Fibromyalgia: continue home meds (11) Hypercholesterolemia: Holding statin for now (12) Orthostatic hypotension: cont midodrine BPs stable (13) 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: continue home meds including chronic prednisone did receive stress dose steroids hospital day #1 these have been weaned back to daily chronic dose will give additional 20mg po x 1 -- this will allow easier recovery (14) Urinary incontinence: continue home meds (15) Hypothyroid: continue home meds TSH 12/2018 was wnl recheck TSH in am (16) Chronic back pain: this is her biggest complaint obtain l-spine and t-spine x-rays -- rule out new pathology cont oxycodone BID Continue gabapentin Lidoderm patches prn voltaren prn heating pad (k-pad) (17) Depression: continue home meds (18) Abnormal CT scan, lung: Pulm nodule noted on CT - 3mm, MADELEINE stable, no change in size (19) Chronic respiratory failure: Baseline home O2 is 3L NC HS scheduled with PRN daytime use will need to assess for continuous use at discharge wean O2 during day if possible (20) Colostomy status: patient has had poor stool output c/w constipation/stasis dulcolax PO x 1 followed by 3 doses of miralax x-rays yesterday w/o obstructive process or ileus (21) Chronic kidney disease, stage 3a: baseline CrCl 30s BMP am (22) DVT prophylaxis: Heparin family updated yesterday PT/OT evals appreciated; cont PT/OT rehab vs home w/ HH Admission and Anticipated Discharge Date Admission Date: November 20, 2019 Subjective patient c/o mid-thoracic back pain and l-spine pain no stool output overnight or late yesterday overall feeling much better but is weak I watched OT evaluation - required some assistance getting up from bed mild [place] but none at rest no abdominal pain eating well Review of Systems Constitutional: + fatigue; no fever, no chills and no anorexia Respiratory: no cough Cardiovascular: no chest pain Gastrointestinal: no abdominal pain Physical Exam Constitutional: no acute distress, not ill appearing and no altered mental status ENMT: external ear and nose normal, oropharynx normal Respiratory: no respiratory distress Auscultation: + crackles (RUL/RLL; improved again today ) Cardiovascular: Rate/Rhythm: regular rate and regular rhythm Heart Sounds: normal S1 and normal S2; no murmur Vessels: posterior tibial pulses present and dorsalis pedis pulses present; no JVD Extremities: no edema Gastrointestinal (Abdomen): normal bowel sounds, soft, nontender, no hepatosplenomegaly colostomy, left abd - minimal stool in bag Musculoskeletal: Spine: + paraspinal tenderness (lumbar region and thoracic region) Psychiatric: Orientation: alert, oriented to person, oriented to place and oriented to time Results & Data ([facility]) Vital Signs (Past 12 Hours) Vital Signs Temp Pulse Pulse Resp BP Pulse Ox 11/23/19 06:34 36.5 C 85 17 138/74 98 11/23/19 03:12 36.6 C 87 16 129/72 98 11/23/19 00:00 94 H Laboratory Results Laboratory Results - last 24 hr 11/22/19 11/22/19 11/22/19 11:31 16:30 20:07 WBC RBC Hgb Hct MCV MCH MCHC RDW Std Deviation RDW Coeff of Omar Plt Count MPV Immature Gran % (Auto) Neut % (Auto) Lymph % (Auto) [place] % (Auto) Eos % (Auto) Baso % (Auto) Immature Gran # (Auto) Neut # (Auto) Lymph # (Auto) [place] # (Auto) Eos # (Auto) Baso # (Auto) RBC Morphology Sodium Potassium Chloride Carbon Dioxide Anion Gap BUN Creatinine Est Cr Clr Drug Dosing Est GFR ( Amer) Est GFR (Non-Af Amer) BUN/Creatinine Ratio Glucose POC Glucose 169 H 196 H 115 H Calcium TSH 11/23/19 11/23/19 11/23/19 05:43 05:43 07:45 WBC 8.43 RBC 2.90 L Hgb 7.8 L Hct 25.8 L MCV 89.0 MCH 26.9 MCHC 30.2 L RDW Std Deviation 53.1 H RDW Coeff of Omar 16.2 H Plt Count 214 MPV 9.7 Immature Gran % (Auto) 0.4 Neut % (Auto) 61.9 Lymph % (Auto) 17.4 [place] % (Auto) 10.3 Eos % (Auto) 9.8 Baso % (Auto) 0.2 Immature Gran # (Auto) 0.03 H Neut # (Auto) 5.21 Lymph # (Auto) 1.47 [place] # (Auto) 0.87 H Eos # (Auto) 0.83 H Baso # (Auto) 0.02 RBC Morphology Unremarkable Sodium 143 Potassium 3.8 Chloride 108 H Carbon Dioxide 31 Anion Gap 4.0 BUN 15 Creatinine 1.01 Est Cr Clr Drug Dosing 40.0 Est GFR ( Amer) 58.4 Est GFR (Non-Af Amer) 50.4 BUN/Creatinine Ratio 14.8 Glucose 87 POC Glucose 96 Calcium 8.5 TSH 1.650 PG Care Time/CCT Total # of Minutes Spent Total Time Spent with Patient: Total time spent is greater than 50% in coordination of care (as documented) at patient's floor/unit and/or counseling patient: Coding Level of Care Code 41763 Subseq Hosp Care Lvl 3 Diagnoses Septic shock A41.9; R65.21 Pneumonia J18.9 Laterality: right Lung location: middle lobe of lung Pneumonia type: due to unspecified organism Metabolic encephalopathy G93.41 ARF (acute renal failure) N17.9 Acute renal failure type: unspecified Hypokalemia E87.6 Recurrent UTI N39.0 Arteriosclerosis of coronary artery I25.10 Chronic reflux esophagitis K21.0 DM 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 E11.9 Fibromyalgia M79.7 Hypercholesterolemia E78.00 Orthostatic hypotension I95.1 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 M06.00 Urinary incontinence R32 Hypothyroid E03.9 Hypothyroidism type: acquired Chronic back pain M54.9; G89.29 Depression F32.89 Depression Type: other depression Abnormal CT scan, lung R91.8 Chronic respiratory failure J96.10 Colostomy status Z93.3 Chronic kidney disease, stage 3a N18.3 DVT prophylaxis Z29.9 (1) ARF (acute renal failure) Acute renal failure type: unspecified Qualified Code(s): N17.9 - Acute kidney failure, unspecified (2) Depression Depression Type: other depression Qualified Code(s): F32.89 - Other specified depressive episodes (3) Hypothyroid Hypothyroidism type: acquired Qualified Code(s): E03.9 - Hypothyroidism, unspecified (4) Pneumonia Laterality: right Lung location: middle lobe of lung Pneumonia type: due to unspecified organism Qualified Code(s): J18.9 - Pneumonia, unspecified organism
[2019-11-23] MEDS: ERTAPENEM SODIUM 1,000 MG in SODIUM CHLORIDE 0.9% 50 ML IV SCH (11:19)
[2019-11-23] MEDS: FERROUS SULFATE 325 MG TAB PO SCH (11:19)
--- NOTE | 2019-11-23 12:25 | XRay Report ---
XR thoracic spine 3V routine CLINICAL HISTORY: 88 years-old Female presenting with back pain; eval compression fx. TECHNIQUE: 3 views of the thoracic spine were obtained. COMPARISON: Correlation made to chest CT from 11/20/2019. FINDINGS: No scoliosis. Mildly exaggerated thoracic kyphosis. Minimal vertebral body height loss of 2 adjacent levels in the midthoracic spine, likely T6 and T7. Remaining vertebral bodies demonstrate normal heig ht and alignment. Intervertebral disc heights preserved. Disc osteophyte complexes noted at several l evels primarily in the mid to lower thoracic spine. Limited evaluation for osseous neural foraminal n arrowing. Cervicothoracic junction grossly normal allowing for overlapping osseous structures. Cardia c silhouette mildly enlarged. Pulmonary vascular prominence suggested. Cholecystectomy clips noted. IMPRESSION: 1. Minimal compression deformities of T6 and T7, which are similar to the recent chest CT. 2. No convincing radiographic evidence of acute osseous injury. 3. Multilevel degenerative changes. 4. Mild cardiomegaly with volume overload. ACT 112: Negative or not required by law. Electronically signed by: Teddy Lopez M.D. 11/23/2019 12:24 PM
--- NOTE | 2019-11-23 12:35 | XRay Report ---
LUMBAR SPINE 3 VIEWS CLINICAL HISTORY: Low back pain. FINDINGS: Three (3) views of the lumbar spine are compared to study dated 04/18/2011. The skeletal stru ctures are osteopenic. There is no radiographic evidence of fracture or malalignment. Vertebral body height is maintained throughout the lumbar spine. Minimal anterolisthesis is again seen at L3-L4. Sma ll anterior and lateral marginal osteophytes are seen throughout. The transverse and spinous processe s appear intact. Moderate facet arthropathy is noted in the lower lumbar region. There is advanced di sc space narrowing at L5-S1. Mild disc space narrowing is seen at the remaining lumbar levels. Room Designer ior disc-osteophyte complexes are seen from L3-L4 through L5-S1. The visualized bony pelvis appears i ntact. 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 Cholecystectomy clips are noted in the right upper quadrant. There is no bowel obstruction. Moderate fecal retention is observed in the colo n. An ostomy projects over the left lower quadrant. Renal calculi are identified bilaterally. Pleural effusions are noted at the lung bases. No acute bony abnormality is seen involving the lumbar spine. IMPRESSION: 1. No acute bony abnormality is identified. 2. Osteopenia and degenerative change as above. 3. Bilateral nephrolithiasis. 4. Small pleural effusions. 5. Additional findings as above. Dictated: 11/23/2019 12:17 PM Transcribed: 11/23/2019 12:31 PM [facility] [id number] [facility] Electronically signed by: Bennett Huertas M.D. 11/23/2019 12:34 PM
--- NOTE | 2019-11-23 16:58 | Palliative Care Consultation ---
Date of Consultation November 23, 2019 Assessment & Plan (1) Goals of care, counseling/discussion: Chart reviewed, patient seen and examined. Patient's [id number] present for part of the visit and exam. Patient is an 88-year-old female with a past medical history significant for chronic recurrent ESBL UTIs on suppressive antibiotic therapy, severe reflux esophagitis with Glasgow's esophagitis, she is status post partial colectomy for diverticulitis-left lower quadrant colostomy. Patient presented to the the emergency room on 11/20 with fever, cough, and altered mental status-she was found to be hypotensive, white count was 31.09 and lactic acid was 3.7 patient was admitted for sepsis secondary to right-sided pneumonia-presumptive aspiration. Patient markedly improved with IV antibiotics and IV fluids. Patient reported decreased ostomy output over the week prior to admission. Patient was found to have fecal impaction distal to her colostomy, no bowel obstruction on scans. Patient and family had discussions in the ICU-patient changed her CODE STATUS to DNR/DNI, patient named her daughter, Tiffani, as her healthcare surrogate. Patient states she plans to make changes to her living well when she returns home. Patient has 5 children, 3 sons live locally, a daughter lives in [place] and her daughter Tiffani, lives in the [facility]. Patient lives alone-has caregivers during the daytime. -Goals of care-patient plans to return home with paid caregivers. Her CODE STATUS is now a DNR/DNI-she plans to make changes to her living will, patient's daughter, Tiffani, who is her POA was present when she changed her CODE STATUS- she has returned to her home. POLST form completed and signed by patient- patient's [id number] was present. Discussed each section of the POLST form-limited interventions were chosen, discussed with patient under what conditions she would require a feeding tube or IV fluids-she discussed these with her daughter. -Sepsis-improving with IV antibiotics and IV hydration -Metabolic encephalopathy-improving with IV antibiotics -VAP-bnyhp-[id number], suspect aspiration-improving with IV antibiotics -Acute renal failure-resolved with IV fluids -Abdominal pain-distal fecal impaction, colostomy continues to have minimal to no output-May need GI for further evaluation -Severe GERD/Glasgow's esophagitis-continue PPI and Pepcid, patient continues to have symptoms on exam. Will continue to follow peripherally and assist patient and family with medical decision making as needed. Copy of POLST form placed in chart, original given to patient. 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 Patient's [id number] present for part of the visit and exam. Patient is an 88-year-old female with a past medical history significant for chronic recurrent ESBL UTIs on suppressive antibiotic therapy, severe reflux esophagitis with Glasgow's esophagitis, she is status post partial colectomy for diverticulitis-left lower quadrant colostomy. Patient presented to the the emergency room on 11/20 with fever, cough, and altered mental status-she was found to be hypotensive, white count was 31.09 and lactic acid was 3.7 patient was admitted for sepsis secondary to right-sided pneumonia-presumptive aspiration. Patient markedly improved with IV antibiotics and IV fluids. Patient reported decreased ostomy output over the week prior to admission. Patient was found to have fecal impaction distal to her colostomy, no bowel obstruction on scans. Patient and family had discussions in the ICU-patient changed her CODE STATUS to DNR/DNI, patient named her daughter, Tiffani, as her healthcare surrogate. Patient states she plans to make changes to her living well when she returns home. Patient has 5 children, 3 sons live locally, a daughter lives in [place] and her daughter Tiffani, lives in the [place] area. Patient lives alone-has caregivers during the daytime. Allergies Allergy/AdvReac Type Severity Reaction Status Date / Time nitrofurantoin Allergy Severe HIVES Verified 11/20/19 10:54 scallops Allergy Severe THROAT Verified 11/20/19 10:54 SWELLS Cipro Allergy Intermediate HIVES Verified 06/03/18 16:34 ciprofloxacin Allergy Intermediate HIVES Verified 11/20/19 10:54 latex Allergy Intermediate RASH Verified 11/20/19 10:54 Quinolones Allergy Intermediate HIVES Verified 11/20/19 10:54 fluticasone Allergy Unknown ADVAIR-UNKN Verified 11/20/19 10:54 OWN salmeterol Allergy Unknown ADVAIR Verified 11/20/19 10:54 shellfish derived Allergy SCALLOPS-THROAT Verified 11/20/19 10:54 SWELLS celecoxib AdvReac Intermediate barretts Verified 11/20/19 10:54 esophagus lactose AdvReac Intermediate GI UPSET Verified 11/20/19 10:54 milk AdvReac Intermediate LACTOSE Verified 11/20/19 10:54 INTOLERANT morphine AdvReac Intermediate NAUSEA AND Verified 11/20/19 10:54 VOMITING Home Medications Home Medications Medication Instructions Recorded Confirmed Type aspirin 81 mg tablet,delayed 81 mg PO QAM 07/07/18 11/20/19 History release cholecalciferol (vitamin D3) 50 2,000 units PO QAM 07/07/18 11/20/19 History mcg (2,000 unit) capsule fexofenadine 60 mg tablet 60 mg PO QAM tab 07/07/18 11/20/19 History nitroglycerin 0.4 mg sublingual 0.4 mg SL Q5M PRN #1 tab 07/07/18 11/20/19 Rx tablet duloxetine [Cymbalta] 60 mg PO QAM 08/10/18 11/20/19 History fluticasone propionate [Flonase 2 spray INTRANASAL DAILY PRN 08/10/18 11/20/19 History Allergy Relief] ondansetron HCl [Zofran] 8 mg PO Q6 PRN 08/10/18 11/20/19 History Ocuvite with Lutein 1 tab PO QAM 08/31/18 11/20/19 History cyanocobalamin (vitamin B-12) 1,000 mcg PO QAM 08/31/18 11/20/19 History [Vitamin B-12] gabapentin 300 mg PO TID 09/26/18 11/20/19 History polyethylene glycol 3350 [Miralax] 17 gm PO QAM PRN 12/17/18 02/10/20 History vitamin B complex 1 tab PO QAM 09/26/18 11/20/19 History Azo Urinary Pain Relief 97.5 mg PO TID PRN 11/07/18 11/20/19 History acetaminophen [Tylenol Extra 1,000 mg PO PM 01/03/19 11/20/19 History Strength] levothyroxine 88 mcg tablet 88 mcg PO QAM 03/28/19 11/20/19 History clopidogrel [Plavix] 75 mg PO QAM 05/07/19 11/20/19 History lidocaine 1 applic TOPICAL QID PRN 05/07/19 11/20/19 History quetiapine 200 mg tablet 200 mg PO HS #30 tab 05/26/19 11/20/19 Rx hydroxychloroquine 200 mg tablet 200 mg PO QAM #30 tab 06/08/19 11/20/19 Rx prazosin 1 mg PO HS 07/18/19 11/20/19 History prednisone 10 mg PO DIRECTED #90 tab 07/22/19 11/20/19 Rx midodrine 5 mg tablet 5 mg PO TID #90 tab 08/02/19 11/20/19 Rx dexlansoprazole 60 mg 60 mg PO QAM #90 cap 08/09/19 11/20/19 Rx capsule,biphase delayed release atorvastatin 40 mg tablet 40 mg PO QAM #30 tab 08/30/19 11/20/19 Rx mirabegron 50 mg tablet,extended 50 mg PO DAILY #90 tab 09/28/19 11/20/19 Rx release 24 hr diclofenac sodium 1 % topical gel 4 gm TOP QID PRN #300 gm MDD 16G 11/01/19 11/20/19 Rx to any one affected joint conjugated estrogens 0.625 mg/gram See Rx Instructions PV DAILY #30 gm 11/17/19 11/20/19 Rx vaginal cream oxycodone 10 mg tablet 10 mg PO BID #60 tab 11/17/19 11/20/19 Rx cefdinir 300 mg PO BID 11/20/19 11/20/19 History famotidine 40 mg PO HS 11/20/19 11/20/19 History duloxetine 30 mg capsule,delayed 30 mg PO DAILY #90 cap 11/21/19 Rx release Patient History Medical History Acute gastritis (03/23/12) Adrenocortical insufficiency (Chronic) Allergic rhinitis (Chronic) Anemia of chronic disease (Chronic) Arteriosclerosis of coronary artery (Chronic) Asthma (Chronic) Back pain (Chronic) Barretts esophagus (Chronic) Cholecystectomy (03/10/13) Chronic back pain (Chronic) Chronic cystitis (Chronic) Chronic reflux esophagitis (Chronic) Colostomy present Colovaginal fistula (Chronic) Constipation (Chronic) Cyclic citrullinated peptide (CCP) antibody positive (Chronic) Depression (Chronic 03/10/13) Diabetes mellitus Dilated bile duct (Chronic) Diverticula of colon 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) Esophageal spasm (Chronic) Falls frequently Fatigue (Chronic) Fibromyalgia (Chronic) Herpes simplex type 1 infection (Chronic) Hiatal hernia (Chronic) History of colitis History of pneumonia Hypercholesterolemia (Chronic) Impaired mobility and ADLs (Chronic) Infected abrasion of great toe of left foot Infected abrasion of great toe of right foot Iron deficiency anemia (Chronic) Lactose intolerance Leukocytosis (Chronic) care home (current) use of systemic steroids (Chronic) Long-term use of hydroxychloroquine (Chronic) Low blood pressure Lumbar canal stenosis (Chronic) Major depressive disorder, 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) Orthostatic hypotension (Chronic) Oxygen dependent (Chronic) Peripheral edema (Chronic) Pituitary adenoma (03/10/13) Polyarthritis (Chronic) Poor balance (Chronic) 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) Rheumatoid factor positive with cyclic citrullinated peptide (CCP) antibody negative (Chronic) Skin lesion of face (Chronic) Slurred speech Solitary pulmonary nodule (Chronic) Stasis ulcer (Chronic) Steroid-induced osteopenia (Chronic) Tension headache (Chronic) TIA (transient ischemic attack) Urinary incontinence (Chronic) Urinary retention (Chronic) UTI (urinary tract infection) (Resolved) Vasovagal syncope (03/10/13) Vitamin D deficiency, unspecified (Chronic) Surgical History H/O: hysterectomy History of hip replacement History of surgical removal of pituitary gland History of surgical removal of pituitary gland Hx of cholecystectomy Family History Grandmother Breast cancer Other Cancer Diabetes Gallbladder disease Heart disease Hypertension Seizure Denies family history of Ovarian cancer Prostate cancer Myocardial infarction Colorectal cancer Social History Preferred Language: Beninese Communication Ability: Effective Visual Impairment: No Limitations Hearing Ability: Hard of Hearing [employer] Required: No Beliefs That Will Affect Care: Denominational Denominational Beliefs: jew marital status: / Current Living Situation: Alone Current Living Situation Comment: has caretakers during day Other Information That Helps Us Care for You: No Feels Safe at Home: Yes Safety Concerns: Feels Safe At This Time Smoking Status: Never smoker Tobacco Type: cigarettes ; Second Hand Exposure: No ; Hx Alcohol Use: No Hx Substance Use: No Review of Systems Review of Systems: Patient denies fever, chills, increased shortness of breath. Patient does report reflux symptoms and poor colostomy output Physical Exam Physical Exam: PE: Patient awake and alert, no acute distress HEENT: Mild [place], EOMI Respirations: Diminished breath sounds on right, unlabored CV: Regular rate Abdomen: Distended, nontender to light palpation, minimal ostomy output Neuro: Patient alert and oriented x4 Results & Data Vital Signs (Past 12 Hours) Vital Signs Temp Pulse Pulse Resp BP Pulse Ox 11/23/19 15:16 98.1 F 103 H 18 132/71 95 11/23/19 06:34 97.7 F 85 17 138/74 98 PG Care Time/CCT Total # of Minutes Spent Total Time Spent with Patient: Total time spent 70 min with greater than 50% of the time spent addressing goals of care and completing POLST form Coding Level of Care Code 63906 Inpt Consult Level 3 Diagnoses Goals of care, counseling/discussion Z71.89 Severe sepsis A41.9; R65.20 Acute hypoxemic respiratory failure J96.01 Pneumonia J18.9 Laterality: right Lung location: middle lobe of lung Pneumonia type: due to unspecified organism ARF (acute renal failure) N17.9 Acute renal failure type: unspecified Colostomy status Z93.3 Chronic reflux esophagitis K21.0 Barretts esophagus K22.70 Glasgow's esophagus type: without dysplasia Time Spent (min) 70
[2019-11-23] MEDS: FAMOTIDINE 20 MG TAB PO SCH (21:08)
[2019-11-23] MEDS: PRAZOSIN HCL 1 MG CAP PO SCH (21:08)
[2019-11-23] MEDS: QUETIAPINE FUMARATE 200 MG TAB PO SCH (21:09)
[2019-11-23] MEDS: ACETAMINOPHEN 500 MG TAB PO SCH (21:13)
[2019-11-24 05:53] LABS: Hematocrit (blood only) 26.4 % (37-47)
[2019-11-24] MEDS: HEPARIN SOD 5,000 UNIT/0.5 ML VIAL SQ SCH ×3 (06:06→21:10)
[2019-11-24] MEDS: LEVOTHYROXINE SODIUM 88 MCG TABLET PO SCH (06:06)
[2019-11-24 06:25] LABS: Calcium 8.7 mg/dl (8.5-10.1); Creatinine Clr Calc Pharmacy 45.1 ml/min; Est GFR (African American) 67.1; Est GFR (Non-African American) 57.9; Potassium 3.9 mmol/L (3.5-5.1)
[2019-11-24] MEDS: INSULIN ASPART 100 UNITS/ML 3 ML PEN SC SCH ×4 (08:33→21:01)
[2019-11-24] MEDS: OXYCODONE HCL IR 5 MG TAB (IMMEDIATE RELEASE) PO SCH ×2 (08:36→21:10)
[2019-11-24] MEDS: LIDOCAINE 5% 1 PATCH TD SCH (08:37)
[2019-11-24] MEDS: predniSONE 10 MG TABLET PO SCH (08:38)
[2019-11-24] MEDS: ASPIRIN 81 MG ECTAB PO SCH (08:38)
[2019-11-24] MEDS: PANTOprazole 40 MG TAB PO SCH (08:38)
[2019-11-24] MEDS: FEXOFENADINE 60 MG TAB PO SCH (08:38)
[2019-11-24] MEDS: DOXYCYCLINE HYCLATE 100 MG CAP PO SCH ×2 (08:39→21:05)
[2019-11-24] MEDS: GABAPENTIN 300 MG CAP PO SCH ×3 (08:39→21:04)
[2019-11-24] MEDS: DULOXETINE HCL 30 MG CAP PO SCH (08:39)
[2019-11-24] MEDS: LACTOBACILLUS ACIDOPHILUS (FLORANEX) TAB PO SCH ×3 (08:40→17:54)
[2019-11-24] MEDS: MIDODRINE HCL 2.5 MG TAB PO SCH ×3 (08:40→21:07)
[2019-11-24] MEDS: HYDROXYCHLOROQUINE SULFATE 200 MG TAB PO SCH (08:41)
[2019-11-24] MEDS: CEROVITE ADV FORMULA TAB PO SCH (08:41)
[2019-11-24] MEDS: CLOPIDOGREL BISULFATE 75 MG TAB PO SCH (08:42)
[2019-11-24] MEDS: MIRABEGRON ER 25 MG TAB PO SCH (08:42)
[2019-11-24] MEDS ORDERED: predniSONE 10 MG TABLET PO ONE (09:57)
[2019-11-24] MEDS: ERTAPENEM SODIUM 1,000 MG in SODIUM CHLORIDE 0.9% 50 ML IV SCH (11:40)
[2019-11-24] MEDS: FERROUS SULFATE 325 MG TAB PO SCH (11:41)
[2019-11-24] MEDS ORDERED: POTASSIUM CHLORIDE 20 MEQ TABCR PO STA (12:05)
--- NOTE | 2019-11-24 12:07 | Hospitalist Progress Note ---
Date of Service November 24, 2019 Assessment & Plan (1) Septic shock: 2nd to extensive right-sided pneumonia. resolved. only required pressors for brief period of time shortly after admission, and required brief period of stress-dose steroids. blood cx's neg to date. (2) Pneumonia: extensive, multilobar on right. cannot rule out aspiration. have to cover for gram negatives as well. MRSA swab negative. imipenem changed to ertapenem prior to leaving ICU. ID recommending 7-day course of abx - cont ertapenem and doxy. blood cultures are negative. today is day #5/7 of abx. likely d/c home tomorrow and will have 1 additional dose of IV ertapenem at her home. (3) Metabolic encephalopathy: 2nd to sepsis - resolved (4) ARF (acute renal failure): Cr at baseline 0.9 Cr 1.3 on admission likely sepsis-associated ATN resolved (5) Recurrent UTI: Pt is on alternating supressive therapy, Q6bpunp Cefidinir currently, would switch to amoxicillin on 11/26 normally Hx of ESBL pathogens urine cx growing ESBL klebsiella suspect she is colonized with this after ertapenem course is complete change back to suppressive PO abx (6) Arteriosclerosis of coronary artery: continue aspirin/plavix no ischemic symptoms at this time (7) Chronic reflux esophagitis: continue home meds (8) DM 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: diet-controlled SSI PRN satisfactory BSGs at this time (9) Fibromyalgia: continue home meds (10) Hypercholesterolemia: Holding statin for now (11) Orthostatic hypotension: cont midodrine BPs stable (12) 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: continue home meds including chronic prednisone did receive stress dose steroids hospital day #1 these have been weaned back to daily chronic dose will give additional 10mg po x 1 today for total of 20mg then 10mg/day thereafter per chronic dosing (13) Urinary incontinence: continue home meds (14) Hypothyroid: continue home meds TSH 12/2018 was wnl recheck TSH in am (15) Chronic back pain: this is her biggest complaint obtain l-spine and t-spine x-rays -- rule out new pathology cont oxycodone BID Continue gabapentin Lidoderm patches prn voltaren prn heating pad (k-pad) (16) Depression: continue home meds (17) Abnormal CT scan, lung: Pulm nodule noted on CT - 3mm, MADELEINE stable, no change in size (18) Chronic respiratory failure: Baseline home O2 is 3L NC HS scheduled with PRN daytime use will need to assess for continuous use at discharge weaned off daytime O2 (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 better likely slow transit due to chronic narcotic usage bowel regimen (20) Chronic kidney disease, stage 3a: baseline CrCl 30s BMP am (21) DVT prophylaxis: Heparin PT/OT evals appreciated; cont PT/OT home w/ HH tomorrow Admission and Anticipated Discharge Date Admission Date: November 20, 2019 Anticipated date of discharge: 11/25/19 Subjective pt w/o any major complaints except for mild peripheral edema eating well ostomy w/ good stool output no dyspnea during my visit I removed her O2 and she was >90% in RA hoping to return home w/ family support Review of Systems Constitutional: + fatigue; no fever, no chills and no anorexia Respiratory: no cough Cardiovascular: no chest pain Gastrointestinal: no abdominal pain, no nausea and no vomiting Physical Exam Constitutional: no acute distress, not ill appearing and no altered mental status ENMT: external ear and nose normal, oropharynx normal Respiratory: no respiratory distress Auscultation: + crackles (RUL/RLL (mild); LLL (mild)) Cardiovascular: Rate/Rhythm: regular rate and regular rhythm Heart Sounds: normal S1 and normal S2; no murmur Vessels: posterior tibial pulses present and dorsalis pedis pulses present; no JVD Extremities: no edema Gastrointestinal (Abdomen): normal bowel sounds, soft, nontender, no hepatosplenomegaly ostomy bag in place with brown stool Psychiatric: Orientation: alert, oriented to person, oriented to place and oriented to time Results & Data ([facility]) Vital Signs (Past 12 Hours) Vital Signs Temp Pulse Resp BP Pulse Ox 11/24/19 11:14 36.9 C 96 H 16 146/70 H 91 11/24/19 07:43 36.6 C 92 H 16 150/77 H 98 11/24/19 03:05 36.6 C 104 H 18 126/72 95 Laboratory Results Laboratory Results - last 24 hr 11/23/19 11/23/19 11/23/19 12:16 16:15 20:05 Hgb Hct Sodium Potassium Chloride Carbon Dioxide Anion Gap BUN Creatinine Est Cr Clr Drug Dosing Est GFR ( Amer) Est GFR (Non-Af Amer) BUN/Creatinine Ratio Glucose POC Glucose 138 H 169 H 177 H Calcium 11/24/19 11/24/19 11/24/19 05:28 05:28 07:38 Hgb 8.0 L Hct 26.4 L Sodium 142 Potassium 3.9 Chloride 107 Carbon Dioxide 31 Anion Gap 4.0 BUN 13 Creatinine 0.90 Est Cr Clr Drug Dosing 45.1 Est GFR ( Amer) 67.1 Est GFR (Non-Af Amer) 57.9 BUN/Creatinine Ratio 14.0 Glucose 107 H POC Glucose 99 Calcium 8.7 11/24/19 11:30 Hgb Hct Sodium Potassium Chloride Carbon Dioxide Anion Gap BUN Creatinine Est Cr Clr Drug Dosing Est GFR ( Amer) Est GFR (Non-Af Amer) BUN/Creatinine Ratio Glucose POC Glucose 126 H Calcium PG Care Time/CCT Total # of Minutes Spent Total Time Spent with Patient: Total time spent is greater than 50% in coordination of care (as documented) at patient's floor/unit and/or counseling patient: Coding Level of Care Code 15153 Subseq Hosp Care Lvl 3 Diagnoses Septic shock A41.9; R65.21 Pneumonia J18.9 Laterality: right Lung location: middle lobe of lung Pneumonia type: due to unspecified organism Metabolic encephalopathy G93.41 ARF (acute renal failure) N17.9 Acute renal failure type: unspecified Recurrent UTI N39.0 Arteriosclerosis of coronary artery I25.10 Chronic reflux esophagitis K21.0 DM 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 E11.9 Fibromyalgia M79.7 Hypercholesterolemia E78.00 Orthostatic hypotension I95.1 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 M06.00 Urinary incontinence R32 Hypothyroid E03.9 Hypothyroidism type: acquired Chronic back pain M54.9; G89.29 Depression F32.89 Depression Type: other depression Abnormal CT scan, lung R91.8 Chronic respiratory failure J96.10 Colostomy status Z93.3 Chronic kidney disease, stage 3a N18.3 DVT prophylaxis Z29.9 (1) ARF (acute renal failure) Acute renal failure type: unspecified Qualified Code(s): N17.9 - Acute kidney failure, unspecified (2) Depression Depression Type: other depression Qualified Code(s): F32.89 - Other specified depressive episodes (3) Hypothyroid Hypothyroidism type: acquired Qualified Code(s): E03.9 - Hypothyroidism, unspecified (4) Pneumonia Laterality: right Lung location: middle lobe of lung Pneumonia type: due to unspecified organism Qualified Code(s): J18.9 - Pneumonia, unspecified organism
[2019-11-24] MEDS ORDERED: FUROSEMIDE 20 MG in SYRINGE 0 ML IV ONE (12:15)
[2019-11-24] MEDS ORDERED: CALCIUM CARBONATE 500 MG CHEWABLE TAB PO PRN (21:05)
[2019-11-24] MEDS ORDERED: ALUMINUM/MAGNESIUM SUSP 30 ML UDC PO PRN (21:05)
[2019-11-24] MEDS: FAMOTIDINE 20 MG TAB PO SCH (21:06)
[2019-11-24] MEDS: PRAZOSIN HCL 1 MG CAP PO SCH (21:06)
[2019-11-24] MEDS: QUETIAPINE FUMARATE 200 MG TAB PO SCH (21:07)
[2019-11-24] MEDS: ACETAMINOPHEN 500 MG TAB PO SCH (21:10)
[2019-11-25] MEDS: HEPARIN SOD 5,000 UNIT/0.5 ML VIAL SQ SCH (05:32)
[2019-11-25] MEDS: LEVOTHYROXINE SODIUM 88 MCG TABLET PO SCH (05:33)
[2019-11-25 07:09] LABS: Hematocrit (blood only) 29.3 % (37-47); Hemoglobin 8.9 g/dL (12.0-16.0); Mean Corpuscular Hemoglobin 26.7 pg (25-34); Mean Corpuscular Hgb Conc 30.4 g/dL (32-36); Mean Platelet Volume 9.7 fL (7.4-10.4); Platelet Count 273 K/uL (130-400); RDW Standard Deviation 51.6 fL (36.4-46.3); Red Blood Count 3.33 M/uL (4.2-5.4)
[2019-11-25 07:40] LABS: BUN Creatinine Ratio 12.6 (10-20); Calcium 9.3 mg/dl (8.5-10.1); Creatinine Clr Calc Pharmacy 40.2 ml/min; Est GFR (African American) 58.4; Est GFR (Non-African American) 50.4; Potassium 3.7 mmol/L (3.5-5.1)
[2019-11-25] MEDS: ASPIRIN 81 MG ECTAB PO SCH (08:18)
[2019-11-25] MEDS: FEXOFENADINE 60 MG TAB PO SCH (08:18)
[2019-11-25] MEDS: HYDROXYCHLOROQUINE SULFATE 200 MG TAB PO SCH (08:18)
[2019-11-25] MEDS: DULOXETINE HCL 30 MG CAP PO SCH (08:18)
[2019-11-25] MEDS: LACTOBACILLUS ACIDOPHILUS (FLORANEX) TAB PO SCH ×2 (08:18→12:08)
[2019-11-25] MEDS: MIRABEGRON ER 25 MG TAB PO SCH (08:19)
[2019-11-25] MEDS: CLOPIDOGREL BISULFATE 75 MG TAB PO SCH (08:19)
[2019-11-25] MEDS: GABAPENTIN 300 MG CAP PO SCH (08:19)
[2019-11-25] MEDS: predniSONE 10 MG TABLET PO SCH (08:19)
[2019-11-25] MEDS: CEROVITE ADV FORMULA TAB PO SCH (08:19)
[2019-11-25] MEDS: OXYCODONE HCL IR 5 MG TAB (IMMEDIATE RELEASE) PO SCH (08:20)
[2019-11-25] MEDS: PANTOprazole 40 MG TAB PO SCH (08:20)
[2019-11-25] MEDS: MIDODRINE HCL 2.5 MG TAB PO SCH (08:20)
[2019-11-25] MEDS: DOXYCYCLINE HYCLATE 100 MG CAP PO SCH (08:20)
[2019-11-25] MEDS: LIDOCAINE 5% 1 PATCH TD SCH (08:21)
[2019-11-25] MEDS: INSULIN ASPART 100 UNITS/ML 3 ML PEN SC SCH ×2 (08:29→12:07)
[2019-11-25] MEDS ORDERED: MAGNESIUM OXIDE 400 MG TAB PO ONE (08:45)
[2019-11-25] MEDS ORDERED: FUROSEMIDE 20 MG TAB PO ONE (08:45)
[2019-11-25] MEDS ORDERED: POTASSIUM CHLORIDE 20 MEQ TABCR PO ONE (08:45)
[2019-11-25] MEDS: ERTAPENEM SODIUM 1,000 MG in SODIUM CHLORIDE 0.9% 50 ML IV SCH (10:33)
[2019-11-25] MEDS: FERROUS SULFATE 325 MG TAB PO SCH (10:33)
--- NOTE | 2019-11-25 10:38 | Discharge Summary ---
Date of Service November 25, 2019 Admission HPI Per Admitting Provider 88 y/o F who was brought to the ED by family for concerns of AMS and fever. Daughter states that she went into pt's room this AM to wake her for an appt. She states that pt was soaking wet and her eyes were swollen shut. She states that she attempted to ask the pt questions, but that pt would only answer "mmhmm". Pt has hx of sepsis, so they brought her to the ED for eval. Family states that pt was her usual interaction yesterday. She ate without issue. Per family, she was seen by PCP on Wednesday and did note a cough. They state her lung exam reported as WNL at that time. Pt has home O2, which is for HS scheduled, but PRN during the day. She has not had SOB recently, but had been using it during the day because she felt better with it on. Family states that pt did c/o abd since coming to the ED. Pt denies current pain. Pt denies fever, SOB, chest pain, n/v/c/d, LE pain or swelling. Family states pt had a temp of 100.5 and her home O2 sat reader indicated <90%. HR at home was 130s When asked how she is feeling, pt responds "fine". Per outpt notes, pt was seen on 11/17 with PCP. She did c/o cough. Pt had recently d/c'd her GERD medication and it was thought that her cough might be due to GERD. Lung exam WNL. Pt was started on famotidine due to zantac recall with plans for recheck. Discharge Exam Constitutional no acute distress, not ill appearing and no altered mental status ENMT external ear and nose normal, oropharynx normal Respiratory no respiratory distress Auscultation: + crackles (RUL/RLL (mild); LLL (mild)) Cardiovascular Rate/Rhythm: regular rate and regular rhythm Heart Sounds: normal S1 and normal S2; no murmur Vessels: posterior tibial pulses present and dorsalis pedis pulses present; no JVD Extremities: no edema Gastrointestinal (Abdomen) normal bowel sounds, soft, nontender, no hepatosplenomegaly Musculoskeletal Spine: + paraspinal tenderness (lumbar region and thoracic region) Psychiatric Orientation: alert, oriented to person, oriented to place and oriented to time Discharge Data Allergies Allergy/AdvReac Type Severity Reaction Status Date / Time nitrofurantoin Allergy Severe HIVES Verified 11/20/19 10:54 scallops Allergy Severe THROAT Verified 11/20/19 10:54 SWELLS Cipro Allergy Intermediate HIVES Verified 06/03/18 16:34 ciprofloxacin Allergy Intermediate HIVES Verified 11/20/19 10:54 latex Allergy Intermediate RASH Verified 11/20/19 10:54 Quinolones Allergy Intermediate HIVES Verified 11/20/19 10:54 fluticasone Allergy Unknown ADVAIR-UNKN Verified 11/20/19 10:54 OWN salmeterol Allergy Unknown ADVAIR Verified 11/20/19 10:54 shellfish derived Allergy SCALLOPS-THROAT Verified 11/20/19 10:54 SWELLS celecoxib AdvReac Intermediate barretts Verified 11/20/19 10:54 esophagus lactose AdvReac Intermediate GI UPSET Verified 11/20/19 10:54 milk AdvReac Intermediate LACTOSE Verified 11/20/19 10:54 INTOLERANT morphine AdvReac Intermediate NAUSEA AND Verified 11/20/19 10:54 VOMITING Consultations 11/20/19 12:46 ED Decision to Admit Stat 11/20/19 12:57 Consult Pool Servicer Stat 11/20/19 15:14 Consult Case Management - Discharge Planning Routine Consult Infectious Diseases Routine Consult Pool Servicer Routine 11/21/19 11:19 Consult Palliative Care Routine Ordered Studies 11/20/19 10:45 CT head/brain wo con Stat 11/20/19 11:28 CT abd pelvis wo con Stat CT chest wo con Stat Hospital Course (1) Septic shock: 2nd to extensive right-sided pneumonia. resolved. only required pressors for brief period of time shortly after admission, and required brief period of stress-dose steroids. blood cx's neg to date. (2) Pneumonia: extensive, multilobar on right. cannot rule out aspiration. have to cover for gram negatives as well. MRSA swab negative. imipenem changed to ertapenem prior to leaving ICU. ID recommending 7-day course of abx - cont ertapenem and doxy. blood cultures are negative. today is day #5/7 of abx. likely d/c home tomorrow and will have 1 additional dose of IV ertapenem at her home. 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 this after ertapenem course is complete change back to suppressive PO abx (6) Arteriosclerosis of coronary artery: continue aspirin/plavix no ischemic symptoms at this time (7) Chronic reflux esophagitis: continue home meds (8) DM 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: diet-controlled SSI PRN satisfactory BSGs at this time (9) Fibromyalgia: continue home meds (10) Hypercholesterolemia: Holding statin for now (11) Orthostatic hypotension: cont midodrine BPs stable (12) 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: continue home meds including chronic prednisone did receive stress dose steroids hospital day #1 these have been weaned back to daily chronic dose will give additional 10mg po x 1 today for total of 20mg then 10mg/day thereafter per chronic dosing (13) Urinary incontinence: continue home meds (14) Hypothyroid: continue home meds TSH 12/2018 was wnl recheck TSH in am (15) Chronic back pain: this is her biggest complaint obtain l-spine and t-spine x-rays -- rule out new pathology cont oxycodone BID Continue gabapentin Lidoderm patches prn voltaren prn heating pad (k-pad) (16) Depression: continue home meds (17) Abnormal CT scan, lung: Pulm nodule noted on CT - 3mm, MADELEINE stable, no change in size (18) Chronic respiratory failure: Baseline home O2 is 3L NC HS scheduled with PRN daytime use will need to assess for continuous use at discharge weaned off daytime O2 (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 better likely slow transit due to chronic narcotic usage bowel regimen (20) Chronic kidney disease, stage 3a: baseline CrCl 30s BMP am (21) DVT prophylaxis: Heparin PT/OT evals appreciated; cont PT/OT home w/ HH tomorrow Discharge Plan Discharge Items Patient Disposition: Home - Home Health Services Reason For Visit: SEPSIS Discharge Diagnosis: septic shock due to right-sided pneumonia - resolved constipation - improved Activity: As commented below Activity Comment: gradually increase activities as tolerated over the next week Non-emergency contact: Primary Care Provider Call non-emergency contact if: you have any medication questions, your symptoms worsen, your pain is not controlled, your pain is worsening, your pain is unusual for you, your pain is concerning for you and you have a fever Follow-up/Referrals: Nidhi Gardner MD [Primary Care Provider] - 11/30/19 10:20 am (Follow up appt 11/30 @ 1020a. Please arrive 15 minutes prior to appt time. If this appt does not fit your schedule please call [phone] to reschedule. [id number] Tima Denise) Diet: Carb Consistent or DM2 Addtl Attending Provider Instructions: You were treated for severe sepsis/septic shock due to right-sided pneumonia with IV and oral antibiotics. You needed to be in the ICU for 2 days but ultimately transferred to the floor as you improved. You have a chronic anemia (low red cells) and I would recommend you stay on iron (ferrous sulfate) 325mg once daily. This may make your stool appear dark. This is normal with iron. Your hemoglobin (rec cell number) at discharge is 8.9 which is close to baseline for you. You also had constipation during the stay. This occurred because of your daily oxycontin (pain killer) use. Nearly all people on pain medication have constipation. I would recommend once daily miralax (purchase [id number]) to prevent constipation. If this doesn't do the trick then add sennakot to the miralax. Sennakot is also [id number]. Recommendations - 1. you need 1 more dose of IV ertapenem antibiotic. You will receive this at home on 11/26/2019. After that dose the IV can be removed from your arm. 2. take 3 more days of doxycycline antibiotic by mouth. Start this TONIGHT. On occasion this antibiotic can cause reflux/heartburn. I sent a prescription to [facility] for you. 3. after the ertapenem and doxycycline are complete THEN resume your normal rotating regimen of oral antibiotics for UTI prevention. Begin the rotation again with amoxicillin. As previously directed then switch to omnicef (cefdinir). Then, rotate back to amoxicillin...and so forth. Any questions please direct them to Dr Beverley Coronado's office, infectious disease at [facility]. 4. please have one of your children stay with you for the next 3-4 nights as you transition home and recover from this illness. 5. have your family doctor repeat a chest x-ray in 1 month. Follow-up - see separate section Return to [facility] if - * you have fevers over 100.5 degrees * you have worsening shortness of breath * you are concerned about too much or too little stool output from your ostomy * you have dizziness or lightheadedness * any other concerns Pending Studies at Discharge: No Stand-Alone Forms: My [facility], Smoking Cessation Medications and DC Order Prescriptions: New ertapenem 1 gram recon soln 1 gm IV DAILY 1 Days Qty: 1 RF: 0 doxycycline hyclate 100 mg Capsule 100 mg PO BID 3 Days Qty: 6 RF: 0 ferrous sulfate 325 mg (65 mg iron) Tablet,Delayed Release (Dr/Ec) 325 mg PO DAILY Qty: 30 RF: 2 Continued fexofenadine [Cora Allergy] 60 mg tablet 60 mg PO QAM RF: 0 aspirin 81 mg tablet,delayed release (DR/EC) 81 mg PO QAM RF: 0 nitroglycerin 0.4 mg tablet, sublingual 0.4 mg SL Q5M PRN (Reason: chest pain) Qty: 1 RF: 0 cholecalciferol (vitamin D3) 2,000 unit capsule 2,000 units PO QAM RF: 0 quetiapine 200 mg tablet 200 mg PO HS Qty: 30 RF: 5 hydroxychloroquine 200 mg tablet 200 mg PO QAM Qty: 30 RF: 5 midodrine 5 mg tablet 5 mg PO TID Qty: 90 RF: 5 Dexilant 60 mg capsule,biphase delayed releas 60 mg PO QAM Qty: 90 RF: 1 atorvastatin 40 mg tablet 40 mg PO QAM Qty: 30 RF: 5 Myrbetriq 50 mg tablet extended release 24 hr 50 mg PO DAILY Qty: 90 RF: 3 diclofenac sodium [Voltaren] 1 % gel 4 gm TOP QID MDD 16G to any one affected joint PRN (Reason: Pain) Qty: 300 RF: 3 duloxetine 30 mg capsule,delayed release(DR/EC) 30 mg PO DAILY Qty: 90 RF: 1 levothyroxine [Synthroid] 88 mcg tablet 88 mcg PO QAM RF: 0 oxycodone 10 mg tablet 10 mg PO BID Qty: 60 RF: 0 ondansetron HCl [Zofran] 8 mg Tablet 8 mg PO Q6 PRN (Reason: Nausea) RF: 0 duloxetine [Cymbalta] 60 mg Capsule,Delayed Release(Dr/Ec) 60 mg PO QAM RF: 0 fluticasone propionate [Flonase Allergy Relief] 50 mcg/actuation [place],Suspension 2 spray INTRANASAL DAILY PRN (Reason: Congestion) RF: 0 cyanocobalamin (vitamin B-12) [Vitamin B-12] 1,000 mcg Tablet 1,000 mcg PO QAM RF: 0 Ocuvite with Lutein 1,000 unit-200 mg-60 unit-2 mg Tablet 1 tab PO QAM RF: 0 gabapentin 300 mg capsule 300 mg PO TID RF: 0 vitamin B complex Tablet 1 tab PO QAM RF: 0 Azo Urinary Pain Relief 97.5 mg Tablet 97.5 mg PO TID PRN (Reason: .URINARY PAIN) RF: 0 lidocaine 4 % Cream 1 applic TOPICAL QID PRN (Reason: Pain) RF: 0 clopidogrel [Plavix] 75 mg Tablet 75 mg PO QAM RF: 0 cefdinir 300 mg capsule 300 mg PO BID RF: 0 famotidine 40 mg tablet 40 mg PO HS RF: 0 acetaminophen [Tylenol Extra Strength] 500 mg Tablet 1,000 mg PO PM RF: 0 prazosin 1 mg capsule 1 mg PO HS RF: 0 Changed polyethylene glycol 3350 [Miralax] 17 gram powder in packet 17 gm PO QAM Qty: 1 RF: 0 prednisone 10 mg tablet 10 mg PO DAILY Qty: 90 RF: 1 Discontinued Premarin 0.625 mg/gram cream See Rx Instructions PV DAILY Qty: 30 RF: 2 Discharge Orders: Discharge Order (Routine); Ordered 11/25/19 Ordered By: Sebas Whitt/Other Patient Handouts: A1C Admission Data Admit Date/Time: 11/20/19 13:34 Attending Provider: Sebas Winkler Admit Provider: Roxie Gregg Primary Care Provider: Nidhi Gardner Other Providers: Brandon Schuster ; Roxie Gregg ; Beverley Coronado ; Sarah Salguero ; [facility] Coding Diagnoses Septic shock A41.9; R65.21 Pneumonia J18.9 Laterality: right Lung location: middle lobe of lung Pneumonia type: due to unspecified organism Metabolic encephalopathy G93.41 ARF (acute renal failure) N17.9 Acute renal failure type: unspecified Recurrent UTI N39.0 Arteriosclerosis of coronary artery I25.10 Chronic reflux esophagitis K21.0 DM 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 E11.9 Fibromyalgia M79.7 Hypercholesterolemia E78.00 Orthostatic hypotension I95.1 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 M06.00 Urinary incontinence R32 Hypothyroid E03.9 Hypothyroidism type: acquired Chronic back pain M54.9; G89.29 Depression F32.89 Depression Type: other depression Abnormal CT scan, lung R91.8 Chronic respiratory failure J96.10 Colostomy status Z93.3 Chronic kidney disease, stage 3a N18.3 DVT prophylaxis Z29.9
== END 2019-11-25 12:53 | disposition home health service (06) | DRG 871 ==
LOC: ED 10:14 → 1E 13:34 → SUATTDRO 13:34 → 1E 14:33 → 2W 11-22 14:04

== ENCOUNTER 2020-08-01 10:11 | Observation (INO) ==
[2020-08-01] MEDS ORDERED: ONDANSETRON INJ 2 MG/ML 2 ML VIAL IV STA (10:43)
[2020-08-01 10:53] LABS: Basophils # (auto) 0.04 K/uL (0-0.2); Basophils % (auto) 0.3 %; Eosinophils # (auto) 0.73 K/uL (0-0.5); Hematocrit (blood only) 33.6 % (37-47); Hemoglobin 10.3 g/dL (12.0-16.0); Immature Granulocytes # (auto) 0.12 K/uL (0.00-0.02); Lymphocytes % (auto) 17.3 %; Mean Corpuscular Hemoglobin 27.8 pg (25-34); Mean Corpuscular Hgb Conc 30.7 g/dL (32-36); Mean Corpuscular Volume 90.6 fL (80-100); Mean Platelet Volume 10.2 fL (7.4-10.4); Monocytes # (auto) 1.78 K/uL (0.11-0.59); Monocytes % (auto) 14.7 %; Neutrophils # (auto) 7.35 K/uL (1.4-6.5); Neutrophils % (auto) 60.7 %; Platelet Count 311 K/uL (130-400); RDW Coefficient of Variation 17.7 % (11.5-14.5); RDW Standard Deviation 57.7 fL (36.4-46.3); Red Blood Count 3.71 M/uL (4.2-5.4); White Blood Count 12.12 K/uL (4.8-10.8)
[2020-08-01 11:18] LABS: BUN Creatinine Ratio 10.6 (10-20); Calcium 8.9 mg/dl (8.5-10.1); Creatinine Clr Calc Pharmacy 32.8 ml/min; Est GFR (African American) 41.9; Est GFR (Non-African American) 36.2
--- NOTE | 2020-08-01 11:30 | CT Scan Report ---
CT SCAN OF THE BRAIN WITHOUT IV CONTRAST CLINICAL HISTORY: Trauma. Fall out of bed. COMPARISON STUDY: CT of the brain dated 11/20/2019. TECHNIQUE: Unenhanced axial CT scan of the brain is performed from the vertex to the skull base. A do se lowering technique was utilized adhering to the principles of ALARA. The skull base was scanned tw ice due to motion artifact. FINDINGS: Brain parenchyma: There are age-related involutional changes noting mild to moderate subcortical and periventricular microangiopathic change. There is no hemorrhage, mass effect, or evidence of acute t erritorial ischemia by CT criteria. Dubose-white matter differentiation is preserved. No extra-axial fl uid collection is seen. Ventricles, sulci, cisterns: Prominent secondary to involutional change. Intracranial vasculature: There is atherosclerotic calcification of the cavernous carotid and vertebr al arteries. Calvarium: The skeletal structures are osteopenic. No depressed calvarial fracture is seen. Sinuses and mastoids: The visualized paranasal sinuses are clear. There are trace mastoid effusions. Orbits: The bony orbits are grossly intact. There are bilateral ocular lens implants. IMPRESSION: There is no hemorrhage, mass effect, or evidence of acute territorial ischemia by CT itz polo. ACT 112: Negative or not required by law. Electronically signed by: Bennett Huertas M.D. 08/01/2020 11:28 AM
[2020-08-01 11:41] LABS: Potassium 3.9 mmol/L (3.5-5.1)
[2020-08-01 11:44] LABS: Appearance Urine Clear (Clear); Bacteria Urine Automated 3+ (Negative); Bilirubin Urine Negative (Negative); Blood Urine Negative (Negative); Color Urine Dark Yellow; Epithelial Cell Urine Auto >30 /lpf (0-5); Glucose Urine UA Negative (Negative); Ketones Urine Trace (Negative); Leukocyte Esterase Urine Trace (Negative); Nitrite Urine Positive (Negative); Protein Urine Negative (Negative); RBC Urine Automated 0-4 /hpf (0-4); Specific Gravity Urine 1.021 (1.000-1.030); Urobilinogen Urine Negative (Negative)
--- NOTE | 2020-08-01 11:45 | CT Scan Report ---
CT pelvis wo con HISTORY: 89 years-old Female Pt c/o pain . Acute generalized pelvic pain COMPARISON: CT abdomen pelvis 11/20/2019 TECHNIQUE: Multiple axial CT images of the pelvis were obtained without the use of IV contrast. A dos e lowering technique was used consistent with the principals of ROSALIO. FINDINGS: Streak artifact from bilateral hip total joint arthroplasties limits evaluation of the pelvic structu res. Moderate urinary bladder distention. Hysterectomy. No adnexal mass lesion. Postoperative changes of sigmoid colon resection with left lower quadrant colostomy. Colonic diverticulosis. Moderate feca l retention. Parastomal hernia redemonstrated. Calcific plaque of the abdominal aorta and iliac arter ies. Asymmetric moderate to marked atrophy of the left iliacus and iliopsoas muscles. Demineralized appearance of the bones. Facet arthrosis and spondylitic spurring with disc space narr owing of the imaged lumbar spine. Posterior disc osteophyte complex at L5-S1. Moderate degeneration o f the SI joints. No acute sacral insufficiency fracture. The coccyx also appears intact. Chronic nond isplaced fracture of the right inferior pubic ramus. No evidence of hardware complication involving t he bilateral femoral acetabular joints. IMPRESSION: 1. Demineralized appearance of the bones without acute fracture. 2. 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 3. Chronic fracture deformity of the right inferior pubic ramus. ACT 112: Negative or not required by law. The above report was generated using voice recognition software. It may contain grammatical, syntax o r spelling errors. Electronically signed by: Michael Silva M.D. 08/01/2020 11:44 AM
--- NOTE | 2020-08-01 11:58 | CT Scan Report ---
CT SCAN OF THE LUMBAR SPINE WITHOUT IV CONTRAST CLINICAL HISTORY: Fall out of bed. COMPARISON STUDY: Radiographs of the lumbar spine dated 11/23/2019. Abdominal CT dated 11/20/2019. TECHNIQUE: CT scan of the lumbar spine is performed from the lower thoracic spine to the sacrum. Imag es are reviewed in the axial, sagittal, and coronal planes. IV contrast was not administered for this examination. A dose lowering technique was utilized adhering to the principles of ALARA. FINDINGS: The skeletal structures are osteopenic. There is no evidence of fracture or malalignment in volving the lumbar spine. Vertebral body height is maintained. Minimal anterolisthesis is seen at L3- L4. Alignment is otherwise preserved. The transverse and spinous processes are intact. There is no sp ondylolysis. Small anterior and lateral marginal osteophytes are seen throughout. No lytic or blastic lesion is seen. There is advanced disc space narrowing at L5-S1. Mild disc space narrowing is seen a t the remaining lumbar levels. Posterior disc osteophyte complexes are seen at all lumbar levels betw een L3-L4 and L5-S1. This may contribute to mild acquired compromise of the central canal. There is f acet arthropathy in the lower lumbar spine. This contributes to bilateral neural foraminal stenosis f rom L3-L4 through L5-S1. The visualized sacrum and bony pelvis appear intact. There is fatty atrophy of the paraspinous musculature. The abdominal aorta is normal in caliber, noting advanced atheroscler otic calcification. Bilateral nephrolithiasis is observed. No retroperitoneal adenopathy is seen. IMPRESSION: 1. There is no evidence of fracture or malalignment involving the lumbar spine. 2. Osteopenia and spondylotic change as above. 3. Bilateral nephrolithiasis. ACT 112: Negative or not required by law. Dictated: 08/01/2020 11:29 AM Transcribed: 08/01/2020 11:55 AM Mary Alice [phone] [facility]_[place] Electronically signed by: Benentt Huertas M.D. 08/01/2020 11:56 AM
[2020-08-01] MEDS ORDERED: SODIUM CHLORIDE 0.9% 1000ML 500 ML IV ONE (12:21)
[2020-08-01] MEDS ORDERED: ERTAPENEM SODIUM 1,000 MG in SODIUM CHLORIDE 0.9% 50 ML IV STA (12:24)
--- NOTE | 2020-08-01 12:52 | History & Physical Report ---
Date of Service August 01, 2020 Assessment & Plan (1) UTI (urinary tract infection): With encephalopathy from urinary tract infection present on admission. She presents with tachycardia and leukocytosis. Her last urinary infection was a pop Carlos Alberto pneumonia in her urine. She was given ertapenem in the emergency department and she will be continued on ertapenem pending culture results (2) Chronic diastolic heart failure: Patient is maintained on atorvastatin and Plavix for coronary risk prevention she is euvolemic at this time she is slightly dehydrated she will be given intravenous fluids with caution with her blood pressure she typically takes midodrine to keep her blood pressure elevated slightly elevated to start with. There is some confusion with her medications however we will continue her midodrine and stop her prazosin at this time (3) Stage III chronic kidney disease: (4) Chronic respiratory failure with hypoxia: Patient maintained on oxygen therapy at this time (5) Anemia of chronic disease: His hemoglobin is stable at 10 (6) Adrenocortical insufficiency: Recommend prednisone for her rheumatological disease. We will give her 24 hours of hydrocortisone at 50 every 8 and then resume her prednisone dose on Wednesday is not microcytic (7) Cyclic citrullinated peptide (CCP) antibody positive: She is on hydroxychloroquine on presentation and chronic steroids the hydroxychloroquine will be continued her steroids as above will be given stress dose steroids for 24 hours History of Present Illness Primary Care Provider: Nidhi Gardner MD Pt is here from family with concerns of urinary tract infection present on admission. The patient's family feels that she frequently gets urine infections and has been acting more weak and lethargic. There are some concern by the family of previous drug resistance although her last UTI was a pansensitive E. coli. The family felt very uncomfortable taking the patient home therefore will observe the patient had physical occupational therapy evaluation in the morning and await for urine culture. In the emergency department she was given ertapenem will continue awaiting results of urine culture Allergies Allergy/AdvReac Type Severity Reaction Status Date / Time nitrofurantoin Allergy Severe HIVES Verified 08/01/20 11:30 scallops Allergy Severe THROAT Verified 08/01/20 11:30 SWELLS Cipro Allergy Intermediate HIVES Verified 06/03/18 16:34 ciprofloxacin Allergy Intermediate HIVES Verified 08/01/20 11:30 latex Allergy Intermediate RASH Verified 08/01/20 11:30 Quinolones Allergy Intermediate HIVES Verified 08/01/20 11:30 fluticasone Allergy Unknown ADVAIR-UNKN Verified 08/01/20 11:30 OWN salmeterol Allergy Unknown ADVAIR Verified 08/01/20 11:30 shellfish derived Allergy SCALLOPS-THROAT Verified 08/01/20 11:30 SWELLS celecoxib AdvReac Intermediate barretts Verified 08/01/20 11:30 esophagus lactose AdvReac Intermediate GI UPSET Verified 08/01/20 11:30 milk AdvReac Intermediate LACTOSE Verified 08/01/20 11:30 INTOLERANT morphine AdvReac Intermediate NAUSEA AND Verified 08/01/20 11:30 VOMITING Home Medications Home Medications Medication Instructions Recorded Confirmed Type cholecalciferol (vitamin D3) 50 2,000 units PO QAM 07/07/18 08/01/20 History mcg (2,000 unit) capsule fexofenadine 60 mg tablet 60 mg PO QAM tab 07/07/18 08/01/20 History nitroglycerin 0.4 mg sublingual 0.4 mg SL Q5M PRN #1 tab 07/07/18 08/01/20 Rx tablet Ocuvite with Lutein 1 tab PO QAM 08/31/18 08/01/20 History cyanocobalamin (vitamin B-12) 1,000 mcg PO QAM 08/31/18 08/01/20 History [Vitamin B-12] gabapentin 300 mg PO TID 09/26/18 08/01/20 History vitamin B complex 1 tab PO QAM 09/26/18 08/01/20 History Azo Urinary Pain Relief 97.5 mg PO TID PRN 11/07/18 08/01/20 History acetaminophen [Tylenol Extra 1,000 mg PO PM PRN 01/03/19 08/01/20 History Strength] clopidogrel [Plavix] 75 mg PO QAM 05/07/19 08/01/20 History polyethylene glycol 3350 [Miralax] 17 gm PO QAM #1 ea 11/25/19 08/01/20 Rx midodrine 5 mg tablet 5 mg PO TID #90 tab 02/09/20 08/01/20 Rx famotidine 40 mg tablet 40 mg PO HS #90 tab 02/13/20 08/01/20 Rx prazosin 1 mg capsule 1 mg PO HS #30 cap 02/20/20 08/01/20 Rx fluticasone propionate 50 2 spray INTRANASAL DAILY PRN #18.2 02/21/20 08/01/20 Rx mcg/actuation nasal ml spray,suspension atorvastatin 40 mg tablet 40 mg PO QAM #90 tab 03/12/20 08/01/20 Rx ondansetron 8 mg disintegrating 8 mg PO Q6H #20 tab 03/22/20 08/01/20 Rx tablet lidocaine 5 % topical patch 1 patch TOP DAILY PRN #30 ea 03/26/20 08/01/20 Rx Myrbetriq 50 mg PO QPM 06/05/20 08/01/20 History duloxetine 30 mg PO QAM 06/05/20 08/01/20 History duloxetine [Cymbalta] 60 mg PO QAM 06/05/20 08/01/20 History prednisone 10 mg PO QAM 06/05/20 08/01/20 History Oxygen Home #1 ea 06/07/20 07/15/20 Rx Portable Oxygen #1 ea 06/07/20 07/15/20 Rx Synthroid 88 mcg tablet 88 mcg PO QAM #90 tab NS 06/11/20 08/01/20 Rx hydroxychloroquine 200 mg tablet 200 mg PO QAM #90 tab 06/11/20 08/01/20 Rx quetiapine 200 mg tablet 200 mg PO HS #90 tab 06/11/20 08/01/20 Rx dexlansoprazole 60 mg 60 mg PO QAM #90 cap 07/22/20 08/01/20 Rx capsule,biphase delayed release oxycodone 10 mg tablet 10 mg PO BID #60 tab 07/23/20 08/01/20 Rx Past Med/Surg History Medical History (Updated 08/01/20 @ 12:51 by Jose Wei MD) Adrenocortical insufficiency Anemia of chronic disease Arteriosclerosis of coronary artery Balance problem Barretts esophagus Cholecystectomy (03/10/13) Chronic back pain Chronic cystitis CKD (chronic kidney disease), stage III does not follow with nephrology Colostomy present Colovaginal fistula Depression Diverticular disease DM type 2 (diabetes mellitus, type 2) Esophageal spasm Fibromyalgia GERD (gastroesophageal reflux disease) Hearing deficit BL PR[place] Hiatal hernia History of aspiration pneumonia last occurence 11/2019 History of pneumonia Hypercholesterolemia Hypothyroidism Impaired mobility and ADLs Iron deficiency anemia 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 Long-term use of hydroxychloroquine Lumbar canal stenosis Major depressive disorder, recurrent episode with anxious distress On home oxygen therapy 3 LPM cont Orthostatic hypotension Peripheral edema Peripheral neuropathy Pituitary adenoma (03/10/13) Polyarthritis Poor balance Pre-diabetes Presence of colostomy Rheumatoid arthritis Solitary pulmonary nodule Steroid-induced osteopenia TIA (transient ischemic attack) 3-4 years ago Urinary incontinence Urinary retention Surgical History H/O: hysterectomy HOLGER, BSO History of cardiac catheterization 2010 -- no stents/angioplasty -- [facility] - CP - dtr believes she follows w/ [facility] History of colon surgery History of hip replacement bilateral History of surgery transsphenoidal tumor removal History of surgical removal of pituitary gland History of tooth extraction History of vascular surgery BLLE - stents Hx of cholecystectomy Family History Grandmother (Maternal) Breast cancer Uterine cancer Father Cardiomyopathy Mother Alzheimer disease Son Colorectal cancer Daughter Breast cancer Other Cancer Diabetes Gallbladder disease Heart disease Hypertension No family history of adverse response to anesthesia Seizure Denies family history of Malignant hypothermia due to anesthesia Ovarian cancer Prostate cancer Crohn's disease Myocardial infarction Bleeding disorder Ulcerative colitis Social History Smoking Status: Never smoker Second Hand Exposure: Yes ( was a smoker); Hx Alcohol Use: No Hx Substance Use: No Preferred Language: Pashto Communication Ability: Effective Visual Impairment: No Limitations Hearing Ability: Hard of Hearing Movie Extra Required: No Beliefs That Will Affect Care: None marital status: / Current Living Situation: Alone Current Living Situation Comment: has caretakers during day Other Information That Helps Us Care for You: No Feels Safe at Home: Yes Safety Concerns: Feels Safe At This Time Do you think of yourself as: straight/heterosexual Assistive Devices: Denture - Upper, Denture - Lower, Glasses, Hearing Aid - Bilateral and Walker Review of Systems Review of Systems: Mild distress and fatigue no headache, blurry or double vision no speech or swallowing issues no chest pain, pressure or palpitations no shortness of breath, cough or wheezes no abdominal pain, nausea or vomiting, diarrhea or constipation Area and frequency no focal joint pain or swelling no back pain, CVA tenderness or radicular pain no bruising, bleeding or rashes no focal signs of weakness or numbness or altered sensation no complaints of anxiety or depression. Physical Exam Physical Exam: The patient appeared well fatigued. Vital signs as documented. Head exam is normocephalic atraumatic no scleral icterus Neck is without JVD, thyromegaly, or carotid bruits. Lungs are clear to auscultation, no focal loss of breath sounds Cardiac exam, Rhythm is regular.. No murmurs, rubs or gallops. Abdominal exam reveals normal bowel sounds, soft ostomy present in lower quadr ant Extremities are nonedematous and both pedal pulses are present Neurologic exam is alert and oriented, no focal loss of strength or sensation he feels very weak Skin is with open sores on her legs which are present on admission Psychologically is without concerns for anxiety or depression. Results & Data Results & Data ([facility]) Vital Signs (Past 12 Hours) Vital Signs Temp Pulse Pulse Resp BP BP Pulse Ox 08/01/20 11:39 109 H 20 145/65 H 100 08/01/20 10:30 98.6 F 111 H 18 130/82 98 Lumbar and pelvic spine CT showing no evidence of fracture or malalignment involving lumbar spine osteopenia and spondylitic change with bilateral nephrolithiasis, chronic fracture deformity of the right inferior pubic ramus demineralization is noted Head CT is unremarkable PG Care Time/CCT Total # of Minutes Spent Total Time Spent with Patient: Total time spent is greater than 50% in coordination of care (as documented) at patient's floor/unit and/or counseling patient: Coding Level of Care Code 93682 OBS Care - Level 3 Diagnoses UTI (urinary tract infection) N39.0 Chronic diastolic heart failure I50.32 Stage III chronic kidney disease N18.3 Chronic respiratory failure with hypoxia J96.11 Anemia of chronic disease D63.8 Adrenocortical insufficiency E27.40 Cyclic citrullinated peptide (CCP) antibody positive R79.89
[2020-08-01 13:28] LABS: Partial Thromboplastin Ratio 0.9; Partial Thromboplastin Time 26.2 Seconds (21.0-31.0); Prothrombin Time 10.4 Seconds (9.0-12.0)
[2020-08-01] MEDS ORDERED: HYDROCORTISONE SOD SUCCINATE 100 MG/2 ML VIAL IV SCH (17:14)
[2020-08-01] MEDS ORDERED: FLUTICASONE PROPIONATE NA SPR 16 GM BTL PRN (17:14)
[2020-08-01] MEDS ORDERED: NITROGLYCERIN SL 0.4 MG/TAB TAB SL PRN (17:14)
[2020-08-01] MEDS ORDERED: LIDOCAINE 5% 1 PATCH TD PRN (17:14)
[2020-08-01] MEDS ORDERED: POLYETHYLENE (MIRALAX) 17 GM PACK PO PRN (17:14)
[2020-08-01] MEDS: LACTATED RINGER'S 1,000 ML IV SCH (17:30)
[2020-08-01] MEDS: MIDODRINE HCL 2.5 MG TAB PO SCH ×2 (18:55→20:40)
[2020-08-01] MEDS: GABAPENTIN 300 MG CAP PO SCH ×2 (18:55→20:40)
[2020-08-01] MEDS: ACETAMINOPHEN 500 MG TAB PO PRN (18:55)
[2020-08-01] MEDS: HYDROCORTISONE SOD 50 MG in SYRINGE 0 ML IV SCH (18:56)
[2020-08-01] MEDS: ONDANSETRON 8MG OD TAB PO SCH (19:45)
[2020-08-01] MEDS ORDERED: cefTRIAXone SODIUM 2,000 MG in DEXTROSE 5% 50 ML IV SCH (20:00)
[2020-08-01] MEDS: QUEtiapine FUMARATE 200 MG TAB PO SCH (20:40)
[2020-08-01] MEDS: MIRABEGRON ER 25 MG TAB PO SCH (20:40)
[2020-08-01] MEDS: oxyCODONE HCL IR 5 MG TAB (IMMEDIATE RELEASE) PO SCH (20:40)
[2020-08-01] MEDS: FAMOTIDINE 40 MG TABLET PO SCH (20:40)
[2020-08-01] MEDS: HEPARIN SOD 5,000 UNIT/0.5 ML VIAL SQ SCH (20:46)
[2020-08-02] MEDS: HYDROCORTISONE SOD 50 MG in SYRINGE 0 ML IV SCH ×2 (02:59→09:06)
[2020-08-02] MEDS: ONDANSETRON 8MG OD TAB PO SCH ×3 (06:17→20:58)
[2020-08-02] MEDS: LEVOTHYROXINE SODIUM 88 MCG TABLET PO SCH (06:17)
[2020-08-02] MEDS: LACTATED RINGER'S 1,000 ML IV SCH (06:17)
[2020-08-02] MEDS: HYDROXYCHLOROQUINE SULFATE 200 MG TAB PO SCH (08:23)
[2020-08-02] MEDS: CEROVITE ADV FORMULA TAB PO SCH (08:23)
[2020-08-02] MEDS: CYANOCOBALAMIN 500 MCG TABLET (VITAMIN B-12) PO SCH (08:24)
[2020-08-02] MEDS: POLYETHYLENE (MIRALAX) 17 GM PACK PO SCH (08:24)
[2020-08-02] MEDS: DULoxetine HCL 60 MG CAP PO SCH (08:24)
[2020-08-02] MEDS: VITAMIN B COMPLEX TAB PO SCH (08:24)
[2020-08-02] MEDS: DULoxetine HCL 30 MG CAP PO SCH (08:25)
[2020-08-02] MEDS: FEXOFENADINE 60 MG TAB PO SCH (08:25)
[2020-08-02] MEDS: PANTOprazole 40 MG TAB PO SCH (08:25)
[2020-08-02] MEDS: CHOLECALCIFEROL 1,000 UNITS 25 MCG TAB PO SCH (08:26)
[2020-08-02] MEDS: ATORVASTATIN 40 MG TAB PO SCH (08:26)
[2020-08-02] MEDS: GABAPENTIN 300 MG CAP PO SCH ×3 (08:26→20:58)
[2020-08-02] MEDS: CLOPIDOGREL BISULFATE 75 MG TAB PO SCH (08:26)
[2020-08-02] MEDS: MIDODRINE HCL 2.5 MG TAB PO SCH ×3 (08:28→20:58)
[2020-08-02] MEDS: HEPARIN SOD 5,000 UNIT/0.5 ML VIAL SQ SCH ×2 (08:28→21:06)
[2020-08-02] MEDS: oxyCODONE HCL IR 5 MG TAB (IMMEDIATE RELEASE) PO SCH ×2 (08:29→20:58)
[2020-08-02 08:55] LABS: BUN Creatinine Ratio 12.1 (10-20); Calcium 8.3 mg/dl (8.5-10.1); Creatinine Clr Calc Pharmacy 41.6 ml/min; Est GFR (African American) 55.9; Est GFR (Non-African American) 48.3; Potassium 4.2 mmol/L (3.5-5.1)
[2020-08-02] MEDS: ERTAPENEM SODIUM 1,000 MG in SODIUM CHLORIDE 0.9% 50 ML IV SCH (12:37)
--- NOTE | 2020-08-02 12:55 | Emergency Department Note ---
History of Present Illness General Chief complaint: Fall Time Seen by Provider: 08/01/20 10:21 Source: patient, family, EMS, RN notes reviewed and old records reviewed Mode of arrival: EMS Limitations: no limitations History of Present Illness Provider complaint: fall, Rt hip pain Onset (ago): hour(s) less than 1 Location: lower extremity and right Radiation: back Severity: mild Pain Consistency: + intermittent Maximum Pain Intensity: 2 Current Pain Intensity: 2 Quality: + aching Relieved By: + immobilization Exacerbated By: + movement Associated symptoms: + denies other symptoms; no chest pain, no diaphoresis, no fever/chills, no loss of appetite, no malaise, no nausea/vomiting and no shortness of breath Treatments prior to arrival: none This is an 89-year-old female who presents to the emergency department complaining of fall out of bed at home. The patient is complaining of right hip pain. The family arrived to the emergency department and is concerned that the patient is more confused than normal. They note that she has a history of resistant urinary tract infections. She has good range of motion of the right hip. She denies any fevers or chills abdominal pain or chest pain. Home Medications Home Medications Medication Instructions Recorded Confirmed Type cholecalciferol (vitamin D3) 50 2,000 units PO QAM 07/07/18 08/01/20 History mcg (2,000 unit) capsule fexofenadine 60 mg tablet 60 mg PO QAM tab 07/07/18 08/01/20 History nitroglycerin 0.4 mg sublingual 0.4 mg SL Q5M PRN #1 tab 07/07/18 08/01/20 Rx tablet Ocuvite with Lutein 1 tab PO QAM 08/31/18 08/01/20 History cyanocobalamin (vitamin B-12) 1,000 mcg PO QAM 08/31/18 08/01/20 History [Vitamin B-12] gabapentin 300 mg PO TID 09/26/18 08/01/20 History vitamin B complex 1 tab PO QAM 09/26/18 08/01/20 History Azo Urinary Pain Relief 97.5 mg PO TID PRN 11/07/18 08/01/20 History acetaminophen [Tylenol Extra 1,000 mg PO PM PRN 01/03/19 08/01/20 History Strength] clopidogrel [Plavix] 75 mg PO QAM 05/07/19 08/01/20 History polyethylene glycol 3350 [Miralax] 17 gm PO QAM #1 ea 11/25/19 08/01/20 Rx midodrine 5 mg tablet 5 mg PO TID #90 tab 02/09/20 08/01/20 Rx famotidine 40 mg tablet 40 mg PO HS #90 tab 02/13/20 08/01/20 Rx prazosin 1 mg capsule 1 mg PO HS #30 cap 02/20/20 08/01/20 Rx fluticasone propionate 50 2 spray INTRANASAL DAILY PRN #18.2 02/21/20 08/01/20 Rx mcg/actuation nasal ml spray,suspension atorvastatin 40 mg tablet 40 mg PO QAM #90 tab 03/12/20 08/01/20 Rx ondansetron 8 mg disintegrating 8 mg PO Q6H #20 tab 03/22/20 08/01/20 Rx tablet lidocaine 5 % topical patch 1 patch TOP DAILY PRN #30 ea 03/26/20 08/01/20 Rx Myrbetriq 50 mg PO QPM 06/05/20 08/01/20 History duloxetine 30 mg PO QAM 06/05/20 08/01/20 History duloxetine [Cymbalta] 60 mg PO QAM 06/05/20 08/01/20 History prednisone 10 mg PO QAM 06/05/20 08/01/20 History Oxygen Home #1 ea 06/07/20 07/15/20 Rx Portable Oxygen #1 ea 06/07/20 07/15/20 Rx Synthroid 88 mcg tablet 88 mcg PO QAM #90 tab NS 06/11/20 08/01/20 Rx hydroxychloroquine 200 mg tablet 200 mg PO QAM #90 tab 06/11/20 08/01/20 Rx quetiapine 200 mg tablet 200 mg PO HS #90 tab 06/11/20 08/01/20 Rx dexlansoprazole 60 mg 60 mg PO QAM #90 cap 07/22/20 08/01/20 Rx capsule,biphase delayed release oxycodone 10 mg tablet 10 mg PO BID #60 tab 07/23/20 08/01/20 Rx Allergies Allergy/AdvReac Type Severity Reaction Status Date / Time nitrofurantoin Allergy Severe HIVES Verified 08/01/20 11:30 scallops Allergy Severe THROAT Verified 08/01/20 11:30 SWELLS Cipro Allergy Intermediate HIVES Verified 06/03/18 16:34 ciprofloxacin Allergy Intermediate HIVES Verified 08/01/20 11:30 latex Allergy Intermediate RASH Verified 08/01/20 11:30 Quinolones Allergy Intermediate HIVES Verified 08/01/20 11:30 fluticasone Allergy Unknown ADVAIR-UNKN Verified 08/01/20 11:30 OWN salmeterol Allergy Unknown ADVAIR Verified 08/01/20 11:30 shellfish derived Allergy SCALLOPS-THROAT Verified 08/01/20 11:30 SWELLS celecoxib AdvReac Intermediate barretts Verified 08/01/20 11:30 esophagus lactose AdvReac Intermediate GI UPSET Verified 08/01/20 11:30 milk AdvReac Intermediate LACTOSE Verified 08/01/20 11:30 INTOLERANT morphine AdvReac Intermediate NAUSEA AND Verified 08/01/20 11:30 VOMITING Past Med/Surg History Medical History (Updated 08/02/20 @ 15:07 by Enmanuel Esteban MD) Adrenocortical insufficiency Anemia of chronic disease Arteriosclerosis of coronary artery Balance problem Barretts esophagus Cholecystectomy (03/10/13) Chronic back pain Chronic cystitis CKD (chronic kidney disease), stage III does not follow with nephrology Colostomy present Colovaginal fistula Depression Diverticular disease DM type 2 (diabetes mellitus, type 2) Esophageal spasm Fibromyalgia GERD (gastroesophageal reflux disease) Hearing deficit BL PR[place] Hiatal hernia History of aspiration pneumonia last occurence 11/2019 History of pneumonia Hypercholesterolemia Hypothyroidism Impaired mobility and ADLs Iron deficiency anemia Lactose intolerance shelter (current) use of systemic steroids Long-term use of hydroxychloroquine Lumbar canal stenosis Major depressive disorder, recurrent episode with anxious distress On home oxygen therapy 3 LPM cont Orthostatic hypotension Peripheral edema Peripheral neuropathy Pituitary adenoma (03/10/13) Polyarthritis Poor balance Pre-diabetes Presence of colostomy Rheumatoid arthritis Solitary pulmonary nodule Steroid-induced osteopenia TIA (transient ischemic attack) 3-4 years ago Urinary incontinence Urinary retention Surgical History H/O: hysterectomy HOLGER, BSO History of cardiac catheterization 2010 -- no stents/angioplasty -- [facility] - CP - dtr believes she follows w/ [facility] History of colon surgery History of hip replacement bilateral History of surgery transsphenoidal tumor removal History of surgical removal of pituitary gland History of tooth extraction History of vascular surgery BLLE - stents Hx of cholecystectomy Family History Grandmother (Maternal) Breast cancer Uterine cancer Father Cardiomyopathy Mother Alzheimer disease Son Colorectal cancer Daughter Breast cancer Other Cancer Diabetes Gallbladder disease Heart disease Hypertension No family history of adverse response to anesthesia Seizure Denies family history of Malignant hypothermia due to anesthesia Ovarian cancer Prostate cancer Crohn's disease Myocardial infarction Bleeding disorder Ulcerative colitis Social History Smoking Status: Never smoker Second Hand Exposure: Yes ( was a smoker); Hx Alcohol Use: No Hx Substance Use: No Preferred Language: Taiwanese Communication Ability: Effective Visual Impairment: No Limitations Hearing Ability: Hard of Hearing Roustabout Required: No Beliefs That Will Affect Care: None marital status: / Current Living Situation: Alone Current Living Situation Comment: has caretakers during day Other Information That Helps Us Care for You: No Feels Safe at Home: Yes Safety Concerns: Feels Safe At This Time Do you think of yourself as: straight/heterosexual Assistive Devices: Oxygen - Continuous Review of Systems A total of 10 systems reviewed and were otherwise negative Physical Exam VITAL SIGNS - Vital signs and nursing notes were reviewed. GENERAL - 89-year-old female appearing stated age who is in no acute distress. Communicates well with provider and answers questions appropriately. SKIN - Without rashes. HEAD - NC/AT. EYES - PERRL with EOMI bilaterally. Sclera anicteric. Palpebral conjunctiva pink and moist with no injection noted. EARS - No deformities of external structures noted on gross examination bilaterally. No pain elicited with palpation of the tragus bilaterally. External auditory canals without discharge or otorrhea. Tympanic membranes pearly dubose without retraction or bulging. No fluid or purulent material visualized behind the TM. Handle of malleus, umbo, cone of light, pars tensa/flaccid all easily visualized. NOSE - Midline and without cyanosis. No epistaxis or purulent drainage noted. Septum midline without deviation or septal hematoma noted. MOUTH/OROPHARYNX - Without perioral cyanosis. Buccal mucosa pink and moist and without leukoplakia. Tongue midline with equal elevation of palate bilaterally. No tonsillar hypertrophy, erythema, or exudates noted. dentition noted. NECK - Neck with FROM. Supple to palpation. lymphadenopathy noted. No nuchal rigidity. LUNGS - Chest wall symmetric without accessory muscle use, intercostals retractions, or central cyanosis. Normal vesicular breath sounds CTA B/L. No wheezes, rales, or rhonchi appreciated. CARDIAC - RRR with S1/S2. No murmur, rubs, or gallops appreciated. ABDOMEN - Abdominal contour without pulsations or visible masses. BS normoactive all four quadrants. No tenderness, palpable masses, hepatosplenomegaly, or ascites noted. EXTREMITIES - No clubbing or peripheral cyanosis. No pretibial edema present. +3/5 radial, posterior tibial, and dorsalis pedis pulses palpated throughout. +5/5 strength noted in UE/LE bilaterally. NEUROLOGIC - Cranial nerves II through XII grossly intact. Sensory intact to light touch throughout. Patellar reflexes +2/4. PSYCH - A&Ox3 and cooperates fully with examiner. Pt is very pleasant and interacts well with examiner. Course Administered Medications Acetaminophen (Acetaminophen 500 Mg Tab) 1,000 mg PO Q8H PRN PRN Reason: pain/fever Stop: 08/31/20 17:13 Last Admin: 08/01/20 18:55 Dose: 1,000 mg Documented by: [id number] Atorvastatin Calcium (Atorvastatin 40 Mg Tab) 40 mg PO [facility] Stop: 09/01/20 08:59 Last Admin: 08/02/20 08:26 Dose: 40 mg Documented by: [id number] Clopidogrel Bisulfate (Clopidogrel Bisulfate 75 Mg Tab) 75 mg PO [facility] Stop: 09/01/20 08:59 Last Admin: 08/02/20 08:26 Dose: 75 mg Documented by: [id number] Cyanocobalamin (Cyanocobalamin 500 Mcg Tablet (Vitamin B-12)) 1,000 mcg PO [facility] Stop: 09/01/20 08:59 Last Admin: 08/02/20 08:24 Dose: 1,000 mcg Documented by: [id number] Duloxetine HCl (Duloxetine Hcl 30 Mg Cap) 30 mg PO [facility] Stop: 09/01/20 08:59 Last Admin: 08/02/20 08:25 Dose: 30 mg Documented by: [id number] Duloxetine HCl (Duloxetine Hcl 60 Mg Cap) 60 mg PO [facility] Stop: 09/01/20 08:59 Last Admin: 08/02/20 08:24 Dose: 60 mg Documented by: [id number] Famotidine (Famotidine 40 Mg Tablet) 40 mg PO HS [facility] Stop: 08/31/20 20:59 Last Admin: 08/01/20 20:40 Dose: 40 mg Documented by: [id number] Fexofenadine HCl (Fexofenadine 60 Mg Tab) 60 mg PO QAM MEE Stop: 09/01/20 08:59 Last Admin: 08/02/20 08:25 Dose: 60 mg Documented by: [id number] Gabapentin (Gabapentin 300 Mg Cap) 300 mg PO TID MEE Stop: 08/31/20 17:29 Last Admin: 08/02/20 13:22 Dose: 300 mg Documented by: [id number] Admin: 08/02/20 08:26 Dose: 300 mg Documented by: [id number] Admin: 08/01/20 20:40 Dose: 300 mg Documented by: [id number] Admin: 08/01/20 18:55 Dose: 300 mg Documented by: [id number] Heparin Sodium (Porcine) (Heparin Sod 5,000 Unit/0.5 Ml Vial) 5,000 units SQ Q 12 MEE Stop: 08/31/20 20:59 Last Admin: 08/02/20 08:28 Dose: 5,000 units Documented by: [id number] Cosigned by: [id number] Admin: 08/01/20 20:46 Dose: 5,000 units Documented by: [id number] Cosigned by: [id number] Hydroxychloroquine Sulfate (Hydroxychloroquine Sulfate 200 Mg Tab) 200 mg PO QAM MEE Stop: 09/01/20 08:59 Last Admin: 08/02/20 08:23 Dose: 200 mg Documented by: [id number] Lactated Ringer's (Lr) 1,000 mls @ 80 mls/hr IV .[id number] MEE Stop: 08/02/20 18:13 Last Infusion: 08/02/20 06:43 Dose: 80 mls/hr Documented by: [id number] Admin: 08/02/20 06:17 Dose: 80 mls/hr Documented by: [id number] Infusion: 08/02/20 06:17 Dose: 80 mls/hr Documented by: [id number] Infusion: 08/01/20 21:02 Dose: 80 mls/hr Documented by: [id number] Infusion: 08/01/20 20:25 Dose: 0 mls/hr Documented by: [id number] Admin: 08/01/20 17:30 Dose: 80 mls/hr Documented by: [id number] Ertapenem 1,000 mg/ Sodium (Chloride) 60 mls @ 100 mls/hr IV Q24H MEE Stop: 08/07/20 11:59 Last Infusion: 08/02/20 13:30 Dose: 0 mls/hr Documented by: [id number] Admin: 08/02/20 12:37 Dose: 100 mls/hr Documented by: [id number] Levothyroxine Sodium (Levothyroxine Sodium 88 Mcg Tablet) 88 mcg PO DAILYBB MEE Stop: 09/01/20 06:29 Last Admin: 08/02/20 06:17 Dose: 88 mcg Documented by: [id number] Midodrine (Midodrine Hcl 2.5 Mg Tab) 5 mg PO TID MEE Stop: 08/31/20 17:29 Last Admin: 08/02/20 13:22 Dose: 5 mg Documented by: [id number] Admin: 08/02/20 08:28 Dose: 5 mg Documented by: [id number] Admin: 08/01/20 20:40 Dose: 5 mg Documented by: [id number] Admin: 08/01/20 18:55 Dose: 5 mg Documented by: [id number] Mirabegron (Mirabegron Er 25 Mg Tab) 50 mg PO QPM MEE Stop: 08/31/20 20:59 Last Admin: 08/01/20 20:40 Dose: 50 mg Documented by: [id number] Miscellaneous (Remove Lidoderm Patch) 1 ea N/A DAILY@2100 MEE Stop: 08/31/20 20:59 Last Admin: 08/01/20 20:40 Dose: Not Given Documented by: [id number] Multivitamins/Minerals (Cerovite Adv Formula Tab) 1 tab PO QAM MEE Stop: 09/01/20 08:59 Last Admin: 08/02/20 08:23 Dose: 1 tab Documented by: [id number] Ondansetron HCl (Ondansetron 8mg Od Tab) 8 mg PO Q6@0600,1200,1800 [facility] Stop: 08/31/20 17:59 Last Admin: 08/02/20 12:27 Dose: 8 mg Documented by: [id number] Admin: 08/02/20 06:17 Dose: 8 mg Documented by: [id number] Admin: 08/01/20 19:45 Dose: 8 mg Documented by: [id number] Oxycodone HCl (Oxycodone Hcl Ir 5 Mg Tab (Immediate Release)) 10 mg PO BID MEE Stop: 08/15/20 20:59 Last Admin: 08/02/20 08:29 Dose: 10 mg Documented by: [id number] Admin: 08/01/20 20:40 Dose: 10 mg Documented by: [id number] Pantoprazole Sodium (Pantoprazole 40 Mg Tab) 40 mg PO QAM MEE Stop: 09/01/20 08:59 Last Admin: 08/02/20 08:25 Dose: 40 mg Documented by: [id number] Polyethylene Glycol (Polyethylene (Miralax) 17 Gm Pack) 17 gm PO QAM MEE Stop: 09/01/20 08:59 Last Admin: 08/02/20 08:24 Dose: 17 gm Documented by: [id number] Quetiapine Fumarate (Quetiapine Fumarate 200 Mg Tab) 200 mg PO HS MEE Stop: 08/31/20 20:59 Last Admin: 08/01/20 20:40 Dose: 200 mg Documented by: [id number] Vitamin B Complex (Vitamin B Complex Tab) 1 tab PO QAM MEE Stop: 09/01/20 08:59 Last Admin: 08/02/20 08:24 Dose: 1 tab Documented by: [id number] Vitamin D (Cholecalciferol 1,000 Units 25 Mcg Tab) 2,000 units PO QAM MEE Stop: 09/01/20 08:59 Last Admin: 08/02/20 08:26 Dose: 2,000 units Documented by: [id number] Discontinued Medications Sodium Chloride (Nss 1000ml) 500 mls @ 999 mls/hr IV .Q31M ONE Stop: 08/01/20 12:51 Last Infusion: 08/01/20 14:39 Dose: 0 mls/hr Documented by: [id number] Admin: 08/01/20 13:55 Dose: 999 mls/hr Documented by: [id number] Ertapenem 1,000 mg/ Sodium (Chloride) 60 mls @ 100 mls/hr IV NOW STA Stop: 08/01/20 12:59 Last Infusion: 08/01/20 14:39 Dose: 0 mls/hr Documented by: [id number] Admin: 08/01/20 13:55 Dose: 100 mls/hr Documented by: [id number] Ceftriaxone Sodium 2,000 mg/ (Dextrose) 50 mls @ 100 mls/hr IV Q24H MEE; Protocol Stop: 08/06/20 19:59 Last Infusion: 08/01/20 21:01 Dose: 0 mls/hr Documented by: [id number] Admin: 08/01/20 20:25 Dose: 100 mls/hr Documented by: [id number] Hydrocortisone Sodium (Succinate 50 mg/ Syringe) 1 mls @ 4 mls/min IV Q8H MEE Stop: 08/02/20 10:01 Last Admin: 08/02/20 09:06 Dose: 4 mls/min Documented by: [id number] Admin: 08/02/20 02:59 Dose: 4 mls/min Documented by: [id number] Admin: 08/01/20 18:56 Dose: 4 mls/min Documented by: [id number] Sodium Chloride (Nss) 250 mls @ 999 mls/hr IV ONE ONE Stop: 08/02/20 14:45 Last Infusion: 08/02/20 14:32 Dose: 0 mls/hr Documented by: [id number] Admin: 08/02/20 14:17 Dose: 999 mls/hr Documented by: [id number] Ondansetron HCl (Ondansetron Inj 2 Mg/Ml 2 Ml Vial) 4 mg IV NOW STA Stop: 08/01/20 10:44 Last Admin: 08/01/20 11:00 Dose: 4 mg Documented by: [id number] Medical Decision Making Differential Diagnosis Fracture, dislocation, contusion, intra-abdominal, pneumothorax, intrathoracic, intracranial, neurologic, compartment syndrome, rhabdomyolysis, as well as other pathologies. Medical Records Attestation: I reviewed the patient's medical records. Home Medications Current Medication List: was personally reviewed by me Laboratory Data Attestation: I reviewed the patient's lab results. Result diagrams: 08/01/20 10:08/02/20 08:03 Lab Results 08/01/20 08/01/20 08/01/20 Range/Units 10: 10: 10:20 WBC 12.12 H (4.8-10.8) K/uL RBC 3.71 L (4.2-5.4) M/uL Hgb 10.3 L (12.0-16.0) g/dL Hct 33.6 L (37-47) % MCV 90.6 (80-100) fL MCH 27.8 (25-34) pg MCHC 30.7 L (32-36) g/dL RDW Std Deviation 57.7 H (36.4-46.3) fL RDW Coeff of Omar 17.7 H (11.5-14.5) % Plt Count 311 (130-400) K/uL MPV 10.2 (7.4-10.4) fL Immature Gran % (Auto) 1.0 % Neut % (Auto) 60.7 % Lymph % (Auto) 17.3 % Luna % (Auto) 14.7 % Eos % (Auto) 6.0 % Baso % (Auto) 0.3 % Neut # (Auto) 7.35 H (1.4-6.5) K/uL Lymph # (Auto) 2.10 (1.2-3.4) K/uL Luna # (Auto) 1.78 H (0.11-0.59) K/uL Eos # (Auto) 0.73 H (0-0.5) K/uL Baso # (Auto) 0.04 (0-0.2) K/uL Immature Gran # (Auto) 0.12 H (0.00-0.02) K/uL PT 10.4 (9.0-12.0) Seconds INR 1.0 (0.9-1.1) APTT 26.2 (21.0-31.0) Seconds PTT Ratio 0.9 Sodium 143 (136-145) mmol/L Potassium 3.9 (3.5-5.1) mmol/L Chloride 108 H (98-107) mmol/L Carbon Dioxide 30 (21-32) mmol/L Anion Gap 5.0 (3-11) BUN 14 (7-18) mg/dl Creatinine 1.32 H (0.6-1.2) mg/dl Est Cr Clr Drug Dosing 32.8 ml/min Est GFR ( Amer) 41.9 Est GFR (Non-Af Amer) 36.2 BUN/Creatinine Ratio 10.6 (10-20) Glucose 118 H (70-99) mg/dl Calcium 8.9 (8.5-10.1) mg/dl Urine Color Urine Appearance (Clear) Urine pH (4.5-7.5) Ur Specific [place] (1.000-1.030) Urine Protein (Negative) Urine Glucose (UA) (Negative) Urine Ketones (Negative) Urine Blood (Negative) Urine Nitrite (Negative) Urine Bilirubin (Negative) Urine Urobilinogen (Negative) Ur Leukocyte Esterase (Negative) Urine WBC (Auto) (0-5) /hpf Urine RBC (Auto) (0-4) /hpf U Hyaline Cast (Auto) (0-5) /lpf U Epithel Cells (Auto) (0-5) /lpf Urine Bacteria (Auto) (Negative) 08/01/20 Range/Units 10:25 WBC (4.8-10.8) K/uL RBC (4.2-5.4) M/uL Hgb (12.0-16.0) g/dL Hct (37-47) % MCV (80-100) fL MCH (25-34) pg MCHC (32-36) g/dL RDW Std Deviation (36.4-46.3) fL RDW Coeff of Omar (11.5-14.5) % Plt Count (130-400) K/uL MPV (7.4-10.4) fL Immature Gran % (Auto) % Neut % (Auto) % Lymph % (Auto) % Luna % (Auto) % Eos % (Auto) % Baso % (Auto) % Neut # (Auto) (1.4-6.5) K/uL Lymph # (Auto) (1.2-3.4) K/uL Luna # (Auto) (0.11-0.59) K/uL Eos # (Auto) (0-0.5) K/uL Baso # (Auto) (0-0.2) K/uL Immature Gran # (Auto) (0.00-0.02) K/uL PT (9.0-12.0) Seconds INR (0.9-1.1) APTT (21.0-31.0) Seconds PTT Ratio Sodium (136-145) mmol/L Potassium (3.5-5.1) mmol/L Chloride (98-107) mmol/L Carbon Dioxide (21-32) mmol/L Anion Gap (3-11) BUN (7-18) mg/dl Creatinine (0.6-1.2) mg/dl Est Cr Clr Drug Dosing ml/min Est GFR ( Amer) Est GFR (Non-Af Amer) BUN/Creatinine Ratio (10-20) Glucose (70-99) mg/dl Calcium (8.5-10.1) mg/dl Urine Color Dark Yellow Urine Appearance Clear (Clear) Urine pH 5.0 (4.5-7.5) Ur Specific [place] 1.021 (1.000-1.030) Urine Protein Negative (Negative) Urine Glucose (UA) Negative (Negative) Urine Ketones Trace H (Negative) Urine Blood Negative (Negative) Urine Nitrite Positive A (Negative) Urine Bilirubin Negative (Negative) Urine Urobilinogen Negative (Negative) Ur Leukocyte Esterase Trace H (Negative) Urine WBC (Auto) 1-5 (0-5) /hpf Urine RBC (Auto) 0-4 (0-4) /hpf U Hyaline Cast (Auto) 5-10 H (0-5) /lpf U Epithel Cells (Auto) >30 H (0-5) /lpf Urine Bacteria (Auto) 3+ H (Negative) Imaging Data Radiologist's Impression: [place], [place] [phone] CT Scan Report Patient: SAIRA MCGARRYAdmit Date: 08/01/20 MR#: [id number]: [address] [facility] Acct ID:[id number]: Date: 1930[facility] Zip: [place] [address] Age: 89Location: ED Sex: FRoom/Bed: Att Phy:Diagnosis: FALL Tracy Phy: Nidhi Gardner MDService Date: 08/01/20 Fam Phy:Interpreting Phy: Swapnil Silva Admit Phy: Ordering Phy: Enmanuel Esteban MD cc: ~ CT pelvis wo con HISTORY: 89 years-old Female Pt c/o pain . Acute generalized pelvic pain COMPARISON: CT abdomen pelvis 11/20/2019 TECHNIQUE: Multiple axial CT images of the pelvis were obtained without the use of IV contrast. A dose lowering technique was used consistent with the principals of ROSALIO. FINDINGS: Streak artifact from bilateral hip total joint arthroplasties limits evaluation of the pelvic structures. Moderate urinary bladder distention. Hysterectomy. No adnexal mass lesion. Postoperative changes of sigmoid colon resection with left lower quadrant colostomy. Colonic diverticulosis. Moderate fecal retention. Parastomal hernia redemonstrated. Calcific plaque of the abdominal aorta and iliac arteries. Asymmetric moderate to marked atrophy of the left iliacus and iliopsoas muscles. Demineralized appearance of the bones. Facet arthrosis and spondylitic spurring with disc space narrowing of the imaged lumbar spine. Posterior disc osteophyte complex at L5-S1. Moderate degeneration of the SI joints. No acute sacral insufficiency fracture. The coccyx also appears intact. Chronic nondisplaced fracture of the right inferior pubic ramus. No evidence of hardware complication involving the bilateral femoral acetabular joints. IMPRESSION: 1. Demineralized appearance of the bones without acute fracture. 2. 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 3. Chronic fracture deformity of the right inferior pubic ramus. ACT 112: Negative or not required by law. The above report was generated using voice recognition software. It may contain grammatical, syntax or spelling errors. Electronically signed by: Michael Silva M.D. 08/01/2020 11:44 AM Dictated: 08/01/20 1136 Transcribed: 08/01/20 1136 [place], [place] [phone] CT Scan Report Patient: SAIRA MCGARRYAdmit Date: 08/01/20 MR#: [id number]: [address] [facility] Acct ID:[id number]: Date: [address] [place] [address] Zip: [place] [address] Age: 89Location: ED Sex: FRoom/Bed: Att Phy:Diagnosis: FALL Tracy Phy: Nidhi Gardner MDService Date: 08/01/20 Fam Phy:Interpreting Phy: Bennett Huertas MD Admit Phy: Ordering Phy: Enmanuel Esteban MD cc: ~ CT SCAN OF THE LUMBAR SPINE WITHOUT IV CONTRAST CLINICAL HISTORY: Fall out of bed. COMPARISON STUDY: Radiographs of the lumbar spine dated 11/23/2019. Abdominal CT dated 11/20/2019. TECHNIQUE: CT scan of the lumbar spine is performed from the lower thoracic spine to the sacrum. Images are reviewed in the axial, sagittal, and coronal planes. IV contrast was not administered for this examination. A dose lowering technique was utilized adhering to the principles of ALARA. FINDINGS: The skeletal structures are osteopenic. There is no evidence of fracture or malalignment involving the lumbar spine. Vertebral body height is maintained. Minimal anterolisthesis is seen at L3-L4. Alignment is otherwise preserved. The transverse and spinous processes are intact. There is no spondylolysis. Small anterior and lateral marginal osteophytes are seen throughout. No lytic or blastic lesion is seen. There is advanced disc space narrowing at L5-S1. Mild disc space narrowing is seen at the remaining lumbar levels. Posterior disc osteophyte complexes are seen at all lumbar levels between L3-L4 and L5-S1. This may contribute to mild acquired compromise of the central canal. There is facet arthropathy in the lower lumbar spine. This contributes to bilateral neural foraminal stenosis from L3-L4 through L5-S1. The visualized sacrum and bony pelvis appear intact. There is fatty atrophy of the paraspinous musculature. The abdominal aorta is normal in caliber, noting advanced atherosclerotic calcification. Bilateral nephrolithiasis is observed. No retroperitoneal adenopathy is seen. IMPRESSION: 1. There is no evidence of fracture or malalignment involving the lumbar spine. 2. Osteopenia and spondylotic change as above. 3. Bilateral nephrolithiasis. ACT 112: Negative or not required by law. Dictated: 08/01/2020 11:29 AM Transcribed: 08/01/2020 11:55 AM Mary Alice [id number] [email or web address] Electronically signed by: Bennett Huertas M.D. 08/01/2020 11:56 AM Dictated: 08/01/20 1129 Transcribed: 08/01/20 1155 [place], [place] [phone] CT Scan Report Patient: SAIRA MCGARRYAdmit Date: 08/01/20 MR#: [id number]: [address] [facility] Acct ID:[id number]: Date: 1930[facility] Zip: [place] [address] Age: 89Location: ED Sex: FRoom/Bed: Att Phy:Diagnosis: FALL Tracy Phy: Nidhi Gardner, [facility] CITYervice Date: 08/01/20 [facility] Phy:Interpreting Phy: Bennett Huertas MD Admit Phy: Ordering Phy: Enmanuel Esteban MD cc: ~ CT SCAN OF THE BRAIN WITHOUT IV CONTRAST CLINICAL HISTORY: Trauma. Fall out of bed. COMPARISON STUDY: CT of the brain dated 11/20/2019. TECHNIQUE: Unenhanced axial CT scan of the brain is performed from the vertex to the skull base. A dose lowering technique was utilized adhering to the principles of ALARA. The skull base was scanned twice due to motion artifact. FINDINGS: Brain parenchyma: There are age-related involutional changes noting mild to moderate subcortical and periventricular microangiopathic change. There is no hemorrhage, mass effect, or evidence of acute territorial ischemia by CT criteria. Dubose-white matter differentiation is preserved. No extra-axial fluid collection is seen. Ventricles, sulci, cisterns: Prominent secondary to involutional change. Intracranial vasculature: There is atherosclerotic calcification of the cavernous carotid and vertebral arteries. Calvarium: The skeletal structures are osteopenic. No depressed calvarial frac ture is seen. Sinuses and mastoids: The visualized paranasal sinuses are clear. There are trace mastoid effusions. Orbits: The bony orbits are grossly intact. There are bilateral ocular lens implants. IMPRESSION: There is no hemorrhage, mass effect, or evidence of acute territorial ischemia by CT criteria. ACT 112: Negative or not required by law. Electronically signed by: Bennett Huertas M.D. 08/01/2020 11:28 AM Dictated: 08/01/20 1125 Transcribed: 08/01/20 1125 [facility] Narrative Patient was seen and evaluated as above in room C12. Review was performed of nursing notes and vital signs. I did review pertinent previous visits and patien t history. After obtaining a thorough history and physical examination the above work up was performed. This is an 89-year-old female presents emergency department after falling out of bed. The patient fell on her left hip. The family is concerned that the patient has been more confused lately therefore she was sent for CAT scan of the head. She does have a slight elevation in her white blood cell count. Family notes that she does have a history of difficult to treat urinary tract infecti ons and she normally requires IV antibiotics. I did discuss this with the pharmacist and we did start her on IV antibiotics for presumed urinary tract infection along with a white blood cell count. I did discuss the case with the hospitalist service who did agree to admit the patient. Patient family are in agreement with the treatment plan. An order was placed for continuous cardiac monitoring. The monitor shows a rate of 92 with Normal SInus rhythm. I attest that I have personally reviewed the patient medication list. I attest that I have reviewed the patient's blood pressure and it was found to be [] GCS: 15 The patient was evaluated during the global COVID-19 pandemic, and that d iagnosis was suspected/considered upon their initial presentation. Their evaluation, treatment and testing was consistent with current guidelines for patients who present with complaints or symptoms that may be related to COVID- 19. Impression & Plan Fall, Weakness, Acute UTI Discharge Plan Visit Data Chief Complaint: Fall ED Provider: Enmanuel Esteban Discharge Problem: Fall, Weakness, Acute UTI Patient Disposition: Admitted As Inpatient Discharge Instructions Interventions: ED Discharge Assessment Last Done: 08/01/20 16:26 Discharge Problem: Fall Qualifiers: Encounter type: initial encounter Qualified Code(s): W19.XXXA - Unspecified fall, initial encounter
[2020-08-02] MEDS ORDERED: Nursing to Pharmacy Communication SCH (14:15)
[2020-08-02] MEDS ORDERED: SODIUM CHLORIDE 0.9% 250 ML IV ONE (14:30)
[2020-08-02] MEDS: FAMOTIDINE 40 MG TABLET PO SCH (20:58)
[2020-08-02] MEDS: QUEtiapine FUMARATE 200 MG TAB PO SCH (20:58)
[2020-08-02] MEDS: MIRABEGRON ER 25 MG TAB PO SCH (20:58)
[2020-08-02] MEDS: ACETAMINOPHEN 500 MG TAB PO PRN (20:58)
[2020-08-02] MEDS ORDERED: ERTAPENEM SODIUM 500 MG in SODIUM CHLORIDE 0.9% 50 ML IV SCH (21:30)
--- NOTE | 2020-08-02 22:10 | Hospitalist Progress Note ---
Date of Service August 02, 2020 Assessment & Plan (1) UTI (urinary tract infection): With encephalopathy from urinary tract infection present on admission. She presents with tachycardia and leukocytosis. Her last urinary infection was a pop [place] pneumonia in her urine. She was given ertapenem in the emergency department and she will be continued on ertapenem pending culture results Cx noted for >100K gram neg, sensi pending (2) Chronic diastolic heart failure: Patient is maintained on atorvastatin and Plavix for coronary risk prevention she is euvolemic at this time she is slightly dehydrated she will be given intravenous fluids with caution with her blood pressure she typically takes midodrine to keep her blood pressure elevated slightly elevated to start with. There is some confusion with her medications however we will continue her midodrine and stop her prazosin at this time (3) Stage III chronic kidney disease: (4) Chronic respiratory failure with hypoxia: Patient maintained on oxygen therapy at this time (5) Anemia of chronic disease: Hb is stable at 10 (6) Adrenocortical insufficiency: Recommend prednisone for her rheumatological disease. 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 Advised that likely d/c tomorrow once sensitivity data is available if PO options available. Pt follows with [place] [facility] Dr. Farris if needed Subjective Pt states she feels better today. She is still a bit weak and "foggy" feeling, but better. She has been tolerating PO and states she thinks that the food is quite good. Pt denies fever, chest pain, abd pain, n/v/c/d, LE pain or swelling. She states she felt a bit SOB when sitting earlier today, but it passed on its own. Review of Systems Review of Systems: Pertinent positives and negatives reviewed in HPI--all others negative Physical Exam Constitutional: WD/WN, vitals as above Eyes: normal visual gaston by confrontation and + anicteric sclerae Neck: normal visual inspection and trachea midline Respiratory: normal respiratory effort, lungs clear to auscultation Cardiovascular: Rate/Rhythm: regular rate and regular rhythm Gastrointestinal (Abdomen): Inspection/Auscultation: abdomen not distended Percussion/Palpation: abdomen soft; abdomen nontender Musculoskeletal: Head/Neck/Chest: normocephalic and head atraumatic negative for edema, peripheral pulses intact Skin: no rashes, warm and dry Neurologic: awake; not confused Speech / Cognition: normal speech Psychiatric: A+Ox3, euthymic affect Results & Data Results & Data ([facility]) Vital Signs (Past 12 Hours) Vital Signs Temp Pulse Resp BP Pulse Ox Pulse Ox 08/02/20 15:07 36.7 C 93 H 17 114/76 97 08/02/20 13:36 98 PG Care Time/CCT Total # of Minutes Spent Total Time Spent with Patient: Total time spent is greater than 50% in coordination of care (as documented) at patient's floor/unit and/or counseling patient: Coding Level of Care Code 13159 Subseq Obs Care Lvl 3 Diagnoses UTI (urinary tract infection) N39.0 Chronic diastolic heart failure I50.32 Stage III chronic kidney disease N18.3 Chronic respiratory failure with hypoxia J96.11 Anemia of chronic disease D63.8 Adrenocortical insufficiency E27.40 Cyclic citrullinated peptide (CCP) antibody positive R79.89
[2020-08-02 23:03] VITALS: TEMP 97.7
[2020-08-03] MEDS: LEVOTHYROXINE SODIUM 88 MCG TABLET PO SCH (05:24)
[2020-08-03] MEDS: ONDANSETRON 8MG OD TAB PO SCH ×2 (05:24→11:34)
[2020-08-03 07:09] VITALS: O2SAT 99
[2020-08-03 07:18] LABS: Hematocrit (blood only) 29.6 % (37-47); Hemoglobin 8.9 g/dL (12.0-16.0); Mean Corpuscular Hemoglobin 27.1 pg (25-34); Mean Corpuscular Hgb Conc 30.1 g/dL (32-36); Mean Corpuscular Volume 90.2 fL (80-100); Mean Platelet Volume 9.8 fL (7.4-10.4); Platelet Count 254 K/uL (130-400); RDW Coefficient of Variation 17.2 % (11.5-14.5); RDW Standard Deviation 56.5 fL (36.4-46.3); Red Blood Count 3.28 M/uL (4.2-5.4); White Blood Count 6.74 K/uL (4.8-10.8)
[2020-08-03 07:53] LABS: Calcium 8.2 mg/dl (8.5-10.1); Creatinine Clr Calc Pharmacy 35.8 ml/min; Est GFR (African American) 46.6; Est GFR (Non-African American) 40.2; Potassium 3.5 mmol/L (3.5-5.1)
[2020-08-03] MEDS: DULoxetine HCL 30 MG CAP PO SCH (08:48)
[2020-08-03] MEDS: oxyCODONE HCL IR 5 MG TAB (IMMEDIATE RELEASE) PO SCH (08:48)
[2020-08-03] MEDS: ATORVASTATIN 40 MG TAB PO SCH (08:48)
[2020-08-03] MEDS: DULoxetine HCL 60 MG CAP PO SCH (08:48)
[2020-08-03] MEDS: CHOLECALCIFEROL 1,000 UNITS 25 MCG TAB PO SCH (08:49)
[2020-08-03] MEDS: PANTOprazole 40 MG TAB PO SCH (08:49)
[2020-08-03] MEDS: FEXOFENADINE 60 MG TAB PO SCH (08:49)
[2020-08-03] MEDS: CYANOCOBALAMIN 500 MCG TABLET (VITAMIN B-12) PO SCH (08:49)
[2020-08-03] MEDS: HYDROXYCHLOROQUINE SULFATE 200 MG TAB PO SCH (08:50)
[2020-08-03] MEDS: VITAMIN B COMPLEX TAB PO SCH (08:50)
[2020-08-03] MEDS: GABAPENTIN 300 MG CAP PO SCH ×2 (08:50→12:24)
[2020-08-03] MEDS: CEROVITE ADV FORMULA TAB PO SCH (08:50)
[2020-08-03] MEDS: MIDODRINE HCL 2.5 MG TAB PO SCH ×2 (08:50→12:24)
[2020-08-03] MEDS: CLOPIDOGREL BISULFATE 75 MG TAB PO SCH (08:50)
[2020-08-03] MEDS: POLYETHYLENE (MIRALAX) 17 GM PACK PO SCH (08:51)
[2020-08-03] MEDS: HEPARIN SOD 5,000 UNIT/0.5 ML VIAL SQ SCH (08:51)
[2020-08-03] MEDS ORDERED: predniSONE 10 MG TABLET PO SCH (09:00)
[2020-08-03] MEDS: ERTAPENEM SODIUM 1,000 MG in SODIUM CHLORIDE 0.9% 50 ML IV SCH (11:34)
--- NOTE | 2020-08-03 15:03 | Discharge Summary ---
Date of Service August 03, 2020 Admission HPI Per Admitting Provider Pt is here from family with concerns of urinary tract infection present on admission. The patient's family feels that she frequently gets urine infections and has been acting more weak and lethargic. There are some concern by the family of previous drug resistance although her last UTI was a pansensitive E. coli. The family felt very uncomfortable taking the patient home therefore will observe the patient had physical occupational therapy evaluation in the morning and await for urine culture. In the emergency department she was given ertapenem will continue awaiting results of urine culture Principal Diagnosis Pt states she feels much better today. Still a bit weak, but she feels she would like to go home if able to arrange. She has been eating without issue. Slight SOB when getting over to the chair today, but better than yesterday and resolved quickly once she was situated. Pt denies fever, SOB, chest pain, abd pain, n/v/c/d, LE pain or swelling. DIL is present and feels pt is much better as well. Discharge Exam Constitutional WD/WN, vitals as above Eyes normal visual gaston by confrontation and + anicteric sclerae Neck normal visual inspection and trachea midline Respiratory normal respiratory effort, lungs clear to auscultation Cardiovascular Rate/Rhythm: regular rate and regular rhythm Gastrointestinal (Abdomen) Inspection/Auscultation: abdomen not distended Percussion/Palpation: abdomen soft; abdomen nontender Musculoskeletal Head/Neck/Chest: normocephalic and head atraumatic Skin no rashes, warm and dry Neurologic awake; not confused Speech / Cognition: normal speech Psychiatric A+Ox3, euthymic affect Discharge Data Allergies Allergy/AdvReac Type Severity Reaction Status Date / Time nitrofurantoin Allergy Severe HIVES Verified 08/01/20 11:30 scallops Allergy Severe THROAT Verified 08/01/20 11:30 SWELLS Cipro Allergy Intermediate HIVES Verified 06/03/18 16:34 ciprofloxacin Allergy Intermediate HIVES Verified 08/01/20 11:30 latex Allergy Intermediate RASH Verified 08/01/20 11:30 Quinolones Allergy Intermediate HIVES Verified 08/01/20 11:30 fluticasone Allergy Unknown ADVAIR-UNKN Verified 08/01/20 11:30 OWN salmeterol Allergy Unknown ADVAIR Verified 08/01/20 11:30 shellfish derived Allergy SCALLOPS-THROAT Verified 08/01/20 11:30 SWELLS celecoxib AdvReac Intermediate barretts Verified 08/01/20 11:30 esophagus lactose AdvReac Intermediate GI UPSET Verified 08/01/20 11:30 milk AdvReac Intermediate LACTOSE Verified 08/01/20 11:30 INTOLERANT morphine AdvReac Intermediate NAUSEA AND Verified 08/01/20 11:30 VOMITING Consultations 08/01/20 12:26 ED Decision to Admit Stat 08/01/20 17:14 Consult Case Management - Discharge Planning Routine Ordered Studies 08/01/20 10:42 CT head/brain wo con Stat CT lumbar spine wo con Stat CT pelvis wo con Stat Hospital Course (1) UTI (urinary tract infection): With encephalopathy from urinary tract infection present on admission. She presents with tachycardia and leukocytosis. Her last urinary infection was noted for ESBL Klebsiella on C&S. She was given ertapenem in the emergency department and maintained on this while awaiting urine cx results Cx noted for >100K Klebsiella with multiple drug resistances Sensitive to ertapenem, will continue this for a total of 7days as outpt US guided IV placed 08/03 Next dose of abx due on 08/04 around 12:00p N set up for delivery prior to pt d/c Pt and family have done this in the past, as recently as November and are comfotable with this Discussed in detail with pt, DIL (present in person), and daughter (via phone) and all are in agreement Advised the pt should f/u with her ID physician in the next week to determine further course of action Pt had been on prior abx proph, alternating abx every two week between cefdenir and ampicillin, however similar abx with resistance on cx. Family states that this was the plan from prior ID, however pt's new ID does not prefer to use abx proph and she has not been on this for some time. They are in agreement with not using proph abx. Interestingly, pt had been on cephalexin for a LE wound until 07/12 at which time she was felt able to d/c abx. (2) Chronic diastolic heart failure: Patient is maintained on atorvastatin and Plavix for coronary risk prevention Typically takes midodrine to keep her blood pressure elevated There was some confusion with her medications on admission, however pt was maintained on midodrine, hold prazosin during admission (3) Stage III chronic kidney disease: (4) Chronic respiratory failure with hypoxia: O2 during admission, weaned (5) Anemia of chronic disease: Hb is stable at 10 (6) Adrenocortical insufficiency: Recommend prednisone for her rheumatological disease. 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: She is on hydroxychloroquine on presentation and chronic steroids the hydroxychloroquine will be continued her steroids as above will be given stress dose steroids for 24 hours Total Time Total Time Spent Total Time Spent (In Minutes): >30 Total Time Includes: Examination of the Patient, Discharge Planning, Medication Reconciliation and Other Discharge Plan Discharge Items Patient Disposition: Home - Home Health Services Reason For Visit: UTI POA Discharge Diagnosis: UTI, klebsiella Activity: Resume your previous activity Non-emergency contact: Primary Care Provider and Urologist Call non-emergency contact if: you have any medication questions, your symptoms worsen and you have a fever Follow-up/Referrals: Nidhi Gardner MD [Primary Care Provider] - Diet: Low Sodium (2gm) Addtl Attending Provider Instructions: Your next dose of antibiotic is due tomorrow around 12:00pm. Home health nursing should deliver your antibiotic by that time. You should have an appt or telemed call with your infection disease doctor in the next 7-10 days to determine ongoing plans for your recurrent UTI issues. Pending Studies at Discharge: No Stand-Alone Forms: My [facility] [employer], Opioid Pain Management, Smoking Cessation Medications and DC Order Prescriptions: New ertapenem 1 gram recon soln 1 g IM DAILY 5 Days RF: 0 Continued fexofenadine [Cora Allergy] 60 mg tablet 60 mg PO QAM RF: 0 nitroglycerin 0.4 mg tablet, sublingual 0.4 mg SL Q5M PRN (Reason: chest pain) Qty: 1 RF: 0 cholecalciferol (vitamin D3) 2,000 unit capsule 2,000 units PO QAM RF: 0 midodrine 5 mg tablet 5 mg PO TID Qty: 90 RF: 5 famotidine 40 mg tablet 40 mg PO HS Qty: 90 RF: 1 prazosin 1 mg capsule 1 mg PO HS Qty: 30 RF: 5 fluticasone propionate [Flonase Allergy Relief] 50 mcg/actuation spray,suspension 2 spray INTRANASAL DAILY PRN (Reason: Congestion) Qty: 18.2 RF: 5 atorvastatin 40 mg tablet 40 mg PO QAM Qty: 90 RF: 1 ondansetron 8 mg tablet,disintegrating 8 mg PO Q6H Qty: 20 RF: 0 lidocaine 5 % adhesive patch,medicated 1 patch TOP DAILY PRN (Reason: Lumbar pain) Qty: 30 RF: 5 (DME) Oxygen Home Liters Per Minute See Rx Instructions .ROUTE .MEDSUPPLY Qty: 1 RF: 0 (DME) Portable Oxygen Misc See Rx Instructions .ROUTE .MEDSUPPLY Qty: 1 RF: 0 hydroxychloroquine 200 mg tablet 200 mg PO QAM Qty: 90 RF: 1 quetiapine 200 mg tablet 200 mg PO HS Qty: 90 RF: 1 levothyroxine [Synthroid] 88 mcg tablet 88 mcg PO QAM Qty: 90 RF: 1 Dexilant 60 mg capsule,biphase delayed releas 60 mg PO QAM Qty: 90 RF: 1 oxycodone 10 mg tablet 10 mg PO BID Qty: 60 RF: 0 cyanocobalamin (vitamin B-12) [Vitamin B-12] 1,000 mcg Tablet 1,000 mcg PO QAM RF: 0 Ocuvite with Lutein 1,000 unit-200 mg-60 unit-2 mg Tablet 1 tab PO QAM RF: 0 gabapentin 300 mg capsule 300 mg PO TID RF: 0 vitamin B complex Tablet 1 tab PO QAM RF: 0 Azo Urinary Pain Relief 97.5 mg Tablet 97.5 mg PO TID PRN (Reason: .URINARY PAIN) RF: 0 clopidogrel [Plavix] 75 mg Tablet 75 mg PO QAM RF: 0 polyethylene glycol 3350 [Miralax] 17 gram powder in packet 17 gm PO QAM Qty: 1 RF: 0 acetaminophen [Tylenol Extra Strength] 500 mg Tablet 1,000 mg PO PM PRN (Reason: Pain) RF: 0 prednisone 10 mg tablet 10 mg PO QAM RF: 0 duloxetine 30 mg capsule,delayed release(DR/EC) 30 mg PO QAM RF: 0 duloxetine [Cymbalta] 60 mg capsule,delayed release(DR/EC) 60 mg PO QAM RF: 0 Myrbetriq 50 mg tablet extended release 24 hr 50 mg PO QPM RF: 0 Discharge Orders: Discharge Order (Routine); Ordered 08/03/20 Ordered By: Roxie Whitt/Other Patient Handouts: Understanding Urinary Tract ... Admission Data Admit Date/Time: 08/01/20 13:00 Attending Provider: Roxie Gregg Admit Provider: Jose Wei Primary Care Provider: Nidhi Gardner Other Providers: Jose Wei ; [facility],Home Health Other Interventions: Discharge Summary Assessment (RN) Last Done: 08/03/20 15:07 Coding Level of Care Code D/C Day Management >30 mins Diagnoses UTI (urinary tract infection) N39.0 Chronic diastolic heart failure I50.32 Stage III chronic kidney disease N18.3 Chronic respiratory failure with hypoxia J96.11 Anemia of chronic disease D63.8 Adrenocortical insufficiency E27.40 Cyclic citrullinated peptide (CCP) antibody positive R79.89
[2020-08-03 15:10] VITALS: BP 142/67; PULSE 112
== END 2020-08-03 17:34 | disposition home health service (06) ==
LOC: 3N 10:11 → ED 10:11 → SUATTDRO 13:00 → 3N 16:26
DX: E03.9 Hypothyroidism, unspecified; Z86.73 Personal history of transient ischemic attack (TIA), and cerebral infarction without residual deficits; Z79.899 Other long term (current) drug therapy; M06.9 Rheumatoid arthritis, unspecified; F32.9 Major depressive disorder, single episode, unspecified; Z79.891 Long term (current) use of opiate analgesic; Z91.040 Latex allergy status; Z79.890 Hormone replacement therapy; J96.11 Chronic respiratory failure with hypoxia; B96.1 Klebsiella pneumoniae [K. pneumoniae] as the cause of diseases classified elsewhere; N39.0 Urinary tract infection, site not specified; Z99.81 Dependence on supplemental oxygen; Z91.011 Allergy to milk products; I50.32 Chronic diastolic (congestive) heart failure; E27.40 Unspecified adrenocortical insufficiency; Z79.02 Long term (current) use of antithrombotics/antiplatelets; Z88.8 Allergy status to other drugs, medicaments and biological substances; R79.89 Other specified abnormal findings of blood chemistry; W06.XXXA Fall from bed, initial encounter; Y92.009 Unspecified place in unspecified non-institutional (private) residence as the place of occurrence of the external cause; Z91.013 Allergy to seafood; Z88.1 Allergy status to other antibiotic agents; E11.22 Type 2 diabetes mellitus with diabetic chronic kidney disease; D63.8 Anemia in other chronic diseases classified elsewhere; Z79.52 Long term (current) use of systemic steroids; E78.00 Pure hypercholesterolemia, unspecified; N18.30 Chronic kidney disease, stage 3 unspecified

== ENCOUNTER 2020-10-18 17:21 | Observation (INO) ==
[2020-10-18] MEDS ORDERED: SODIUM CHLORIDE 0.9% 1000ML 1,000 ML IV STA (17:42)
[2020-10-18] MEDS ORDERED: SODIUM CHLORIDE 0.9% 1000ML 500 ML IV ONE ×2 (17:42→19:35)
[2020-10-18] MEDS ORDERED: HYDROmorphone INJ 0.5 MG/0.5 ML SYR IV STA (17:43)
[2020-10-18] MEDS ORDERED: ONDANSETRON INJ 2 MG/ML 2 ML VIAL IV STA (17:43)
[2020-10-18 18:23] LABS: Basophils # (auto) 0.03 K/uL (0-0.2); Basophils % (auto) 0.2 %; Eosinophils # (auto) 0.13 K/uL (0-0.5); Hematocrit (blood only) 33.9 % (37-47); Hemoglobin 10.1 g/dL (12.0-16.0); Immature Granulocytes # (auto) 0.06 K/uL (0.00-0.02); Immature Granulocytes % (auto) 0.5 %; Lymphocytes # (auto) 0.95 K/uL (1.2-3.4); Lymphocytes % (auto) 7.4 %; Mean Corpuscular Hemoglobin 26.4 pg (25-34); Mean Corpuscular Hgb Conc 29.8 g/dL (32-36); Mean Corpuscular Volume 88.7 fL (80-100); Mean Platelet Volume 9.8 fL (7.4-10.4); Monocytes # (auto) 1.15 K/uL (0.11-0.59); Neutrophils # (auto) 10.44 K/uL (1.4-6.5); Neutrophils % (auto) 81.9 %; Platelet Count 250 K/uL (130-400); RDW Coefficient of Variation 15.3 % (11.5-14.5); RDW Standard Deviation 49.3 fL (36.4-46.3); Red Blood Count 3.82 M/uL (4.2-5.4); White Blood Count 12.76 K/uL (4.8-10.8)
--- NOTE | 2020-10-18 18:34 | Emergency Department Note ---
Impression & Plan Abdominal pain, Colostomy present, Nausea ED Provider Note INFORMANT: Patient ED PROVIDER(S): Galdino Archer MD CHIEF COMPLAINT: Abdominal pain PLAN: Disposition: Admitted Condition: Good Outpatient prescription management: none Referral: None MEDICAL DECISION MAKING: Patient presented complaining of abdominal pain. She is nauseated. She will be hydrated. She was hydrated and given Zofran. She was treated with pain medication. She underwent CT imaging and blood work. She had a leukocytosis on CBC. Her lactate was negative. Chemistry panel was unremarkable. Urinalysis d id have significant amount of bacteria present. Culture pending. She was given IV Rocephin. I discussed possible treatment options. Patient does feel comfortable going home. Consultation was made with Dr. Iban Duna[facility]. Patient was seen for further management. Triage Nursing notes reviewed and agree them. Vital Signs: reviewed and remarkable for no significant abnormalities Differential diagnosis: Obstruction, appendicitis, infections, diverticulitis, UTI, mesenteric ischemia, aortic pathology, inflammatory bowel disease, renal colic, PUD, pancreatitis, biliary pathology, hernia, volvulus, constipation, as well as other pathologies. Diagnostics interpreted by me: ECG: Twelve-lead ECG reveals a normal sinus rhythm at 93 bpm. Low voltage QRS. Incomplete right bundle branch block. No ST elevation or depression. No PVCs or PACs. Normal axis. Imaging studies: CT scan of the abdomen pelvis reveals no evidence of bowel obstruction. No acute pathology. Colostomy noted. HPI: The patient is a 89 year old female who presents to the Emergency Room with complaints of abdominal pain. This started 3 days ago and is worsening. The patient also notes the following associated symptoms, decreased ostomy output, nausea, poor p.o. intake, feeling dehydrated, weakness. The patient has found no relieving factors. Current pain is rated as 7/10. Patient has a colostomy present. She notes that the stool has been hard. Pt denies LOC, headache, fevers, chills, diaphoresis, visual changes, neck pain, chest pain, breathing difficulties, vomiting, back pain, melena, hematochezia, urinary symptoms, numbness, lymphadenopathy, rash, or other complaints. ROS: See above HPI for pertinent positives & negatives. A total of 10 systems reviewed and were otherwise negative. PAST MEDICAL HISTORY:See Below , CKD, CHF, diverticulitis PAST SURGICAL HISTORY:See Below, colostomy FAMILY HISTORY:See Below SOCIAL HISTORY:See Below, retired HOME MEDICATIONS:See Below ALLERGIES:See Below VITALS:See Below PHYSICAL EXAMINATION: GENERAL: Awake, alert, uncomfortable-appearing, in no distress HENT: Normocephalic, atraumatic. Oropharynx with dry mucous membranes EYES: Normal conjunctiva. Sclera non-icteric. NECK: Inspection normal. Non-tender. Supple. No nuchal rigidity. FROM. No masses. RESPIRATORY: Clear to auscultation. No wheezes. No rales. Normal respiratory effort. CARDIAC: Normal rate. Normal rhythm. No murmurs. No rubs. Extremities warm and well perfused. Pulses equal. No JVD. GI: Soft, mildly-distended. Functioning colostomy in the left lower quadrant. Midline and right-sided tenderness to palpation. No rebound or guarding. No masses. RECTAL: Deferred. MUSCULOSKELETAL: Atraumatic. Chest examination reveals no tenderness. The back is symmetrical on inspection without obvious abnormality. There is no CVA tenderness to palpation. No joint edema. LOWER EXTREMITIES: Calves are equal size bilaterally and non-tender. Trace edema. No discoloration. NEURO: Normal sensorium. No sensory or motor deficits noted. SKIN: No rash or jaundice noted. Galdino Archer MD Past Med/Surg History Medical History Adrenocortical insufficiency Anemia of chronic disease Arteriosclerosis of coronary artery Balance problem Barretts esophagus Cholecystectomy (03/10/13) Chronic back pain Chronic cystitis CKD (chronic kidney disease), stage III Colostomy present Colovaginal fistula Depression Diverticular disease DM type 2 (diabetes mellitus, type 2) Esophageal spasm Fibromyalgia GERD (gastroesophageal reflux disease) Hearing deficit Hiatal hernia History of aspiration pneumonia History of pneumonia Hypercholesterolemia Hypothyroidism Impaired mobility and ADLs Iron deficiency anemia Lactose intolerance FPC (current) use of systemic steroids Long-term use of hydroxychloroquine Lumbar canal stenosis Major depressive disorder, recurrent episode with anxious distress On home oxygen therapy Orthostatic hypotension Peripheral edema Peripheral neuropathy Pituitary adenoma (03/10/13) Polyarthritis Poor balance Pre-diabetes Presence of colostomy Rheumatoid arthritis Solitary pulmonary nodule Steroid-induced osteopenia TIA (transient ischemic attack) Urinary incontinence Urinary retention Surgical History H/O: hysterectomy History of cardiac catheterization History of colon surgery History of hip replacement History of surgery History of surgical removal of pituitary gland History of tooth extraction History of vascular surgery Hx of cholecystectomy Family History Grandmother (Maternal) Breast cancer Uterine cancer Father Cardiomyopathy Mother Alzheimer disease Son Colorectal cancer Daughter Breast cancer Other Cancer Diabetes Gallbladder disease Heart disease Hypertension No family history of adverse response to anesthesia Seizure Denies family history of Malignant hypothermia due to anesthesia Ovarian cancer Prostate cancer Crohn's disease Myocardial infarction Bleeding disorder Ulcerative colitis Social History Smoking Status: Never smoker Second Hand Exposure: Yes ( was a smoker); Hx Alcohol Use: No Hx Substance Use: No Preferred Language: Kazakh Communication Ability: Effective Visual Impairment: No Limitations Hearing Ability: Hard of Hearing Sash Assembler Required: No Beliefs That Will Affect Care: None marital status: / Current Living Situation: Alone Current Living Situation Comment: has caretakers during day current occupational status: retired How many Children do You have: 5 Feels Safe at Home: Yes Childhood Exposure to Second-Hand Smoke: Yes caffeine: Yes during the past year weight has: remained stable Dental Care, Regularly: Yes Physical Activity Frequency: Does not Exercise Seatbelt Use: always Sunscreen Use: Yes Do you think of yourself as: straight/heterosexual Assistive Devices: Hearing Aid - Left, Hearing Aid - Right and Walker Allergies Allergies Allergy/AdvReac Type Severity Reaction Status Date / Time nitrofurantoin Allergy Severe HIVES Verified 10/18/20 21:40 scallops Allergy Severe THROAT Verified 10/18/20 21:40 SWELLS Cipro Allergy Intermediate HIVES Verified 06/03/18 16:34 ciprofloxacin Allergy Intermediate HIVES Verified 10/18/20 21:40 latex Allergy Intermediate RASH Verified 10/18/20 21:40 Quinolones Allergy Intermediate HIVES Verified 10/18/20 21:40 fluticasone Allergy Unknown ADVAIR-UNKN Verified 10/18/20 21:40 OWN salmeterol Allergy Unknown ADVAIR Verified 10/18/20 21:40 shellfish derived Allergy SCALLOPS-THROAT Verified 01/08/21 21:40 SWELLS celecoxib AdvReac Intermediate barretts Verified 10/18/20 21:40 esophagus lactose AdvReac Intermediate GI UPSET Verified 10/01/20 14:55 milk AdvReac Intermediate LACTOSE Verified 10/01/20 14:55 INTOLERANT morphine AdvReac Intermediate NAUSEA AND Verified 10/01/20 14:55 VOMITING Home Meds Home Medications Medication Instructions Recorded Confirmed cholecalciferol (vitamin D3) 50 2,000 units PO QAM 07/07/18 10/18/20 mcg (2,000 unit) capsule Ocuvite with Lutein 1 tab PO QAM 08/31/18 10/18/20 cyanocobalamin (vitamin B-12) 1,000 mcg PO QAM 08/31/18 10/18/20 [Vitamin B-12] gabapentin 300 mg PO TID 09/26/18 10/18/20 vitamin B complex 1 tab PO QAM 09/26/18 10/18/20 Azo Urinary Pain Relief 97.5 mg PO TID PRN 11/07/18 10/18/20 acetaminophen [Tylenol Extra 1,000 mg PO PM PRN 01/03/19 10/18/20 Strength] clopidogrel [Plavix] 75 mg PO QAM 05/07/19 10/18/20 prednisone 10 mg PO QAM 06/05/20 10/18/20 fexofenadine [Cora] 60 mg PO QAM 10/18/20 10/18/20 ondansetron 8 mg PO Q6H PRN 10/18/20 10/18/20 Previous Rx's Medication Instructions Recorded nitroglycerin 0.4 mg sublingual 0.4 mg SL Q5M PRN #1 tab 07/07/18 tablet polyethylene glycol 3350 [Miralax] 17 gm PO QAM #1 ea 11/25/19 prazosin 1 mg capsule 1 mg PO HS #30 cap 02/20/20 fluticasone propionate 50 2 spray INTRANASAL DAILY PRN #18.2 02/21/20 mcg/actuation nasal ml spray,suspension lidocaine 5 % topical patch 1 patch TOP DAILY PRN #30 ea 03/26/20 Synthroid 88 mcg tablet 88 mcg PO QAM #90 tab NS 06/11/20 hydroxychloroquine 200 mg tablet 200 mg PO QAM #90 tab 06/11/20 quetiapine 200 mg tablet 200 mg PO HS #90 tab 06/11/20 duloxetine 30 mg capsule,delayed 30 mg PO QAM #90 cap 08/14/20 release duloxetine 60 mg capsule,delayed 60 mg PO QAM #90 cap 08/14/20 release famotidine 40 mg tablet 40 mg PO HS #90 tab 08/14/20 midodrine 5 mg tablet 5 mg PO TID #90 tab 08/14/20 atorvastatin 40 mg tablet 40 mg PO QAM #90 tab 08/23/20 oxycodone 10 mg tablet 10 mg PO BID #60 tab 09/19/20 mirabegron 50 mg tablet,extended 50 mg PO DAILY #90 tab 09/20/20 release 24 hr Results & Data (ED) Vital Signs Vital Signs - 24 hr 10/18/20 17:21 10/18/20 17:28 10/18/20 17:31 Temperature 36.8 C Temperature Source Oral Pulse Rate 97 H 93 H Pulse Rate from SpO2 Sensor 93 H Pulse Rhythm Regular Respiratory Rate 22 10 L Respiratory Effort / Characteristics Non-Labored Spontaneous Respiratory Depth Normal Respiratory Pattern Regular Blood Pressure 194/88 H 194/88 H Blood Pressure Mean 123 101 Pulse Oximetry 99 99 Oxygen Delivery Method Nasal Cannula Nasal Cannula Room Air Oxygen Flow Rate 3 2 Sepsis Recent Fever Within 48 Hours No Sepsis New/Unexplained Change in Mental Status No Sepsis Action Taken by Nursing No Action Required 10/18/20 18:30 10/18/20 18:56 10/18/20 19:00 Temperature Temperature Source Pulse Rate 92 H 96 H 96 H Pulse Rate from SpO2 Sensor 92 H 97 H 96 H Pulse Rhythm Respiratory Rate 16 20 21 Respiratory Effort / Characteristics Respiratory Depth Respiratory Pattern Blood Pressure 178/81 H Blood Pressure Mean 121 Pulse Oximetry 100 100 100 Oxygen Delivery Method Nasal Cannula Nasal Cannula Nasal Cannula Oxygen Flow Rate 2 2 2 Sepsis Recent Fever Within 48 Hours Sepsis New/Unexplained Change in Mental Status Sepsis Action Taken by Nursing 10/18/20 19:30 10/18/20 20:00 10/18/20 20:30 Temperature Temperature Source Pulse Rate 93 H 95 H 95 H Pulse Rate from SpO2 Sensor 93 H 95 H 95 H Pulse Rhythm Respiratory Rate 16 22 22 Respiratory Effort / Characteristics Respiratory Depth Respiratory Pattern Blood Pressure 143/63 H Blood Pressure Mean 89 Pulse Oximetry 100 93 100 Oxygen Delivery Method Nasal Cannula Nasal Cannula Nasal Cannula Oxygen Flow Rate 2 2 2 Sepsis Recent Fever Within 48 Hours Sepsis New/Unexplained Change in Mental Status Sepsis Action Taken by Nursing Laboratory Data Result diagrams: 10/18/20 18:10 10/18/20 18:10 Lab Results 10/18/20 10/18/20 10/18/20 Range/Units 18:10 18:10 20:00 WBC 12.76 H (4.8-10.8) K/uL RBC 3.82 L (4.2-5.4) M/uL Hgb 10.1 L (12.0-16.0) g/dL Hct 33.9 L (37-47) % MCV 88.7 (80-100) fL MCH 26.4 (25-34) pg MCHC 29.8 L (32-36) g/dL RDW Std Deviation 49.3 H (36.4-46.3) fL RDW Coeff of Omar 15.3 H (11.5-14.5) % Plt Count 250 (130-400) K/uL MPV 9.8 (7.4-10.4) fL Immature Gran % (Auto) 0.5 % Neut % (Auto) 81.9 % Lymph % (Auto) 7.4 % [place] % (Auto) 9.0 % Eos % (Auto) 1.0 % Baso % (Auto) 0.2 % Neut # (Auto) 10.44 H (1.4-6.5) K/uL Lymph # (Auto) 0.95 L (1.2-3.4) K/uL [place] # (Auto) 1.15 H (0.11-0.59) K/uL Eos # (Auto) 0.13 (0-0.5) K/uL Baso # (Auto) 0.03 (0-0.2) K/uL Immature Gran # (Auto) 0.06 H (0.00-0.02) K/uL Sodium 140 (136-145) mmol/L Potassium 4.0 (3.5-5.1) mmol/L Chloride 104 (98-107) mmol/L Carbon Dioxide 30 (21-32) mmol/L Anion Gap 6.0 (3-11) BUN 14 (7-18) mg/dl Creatinine 1.03 (0.6-1.2) mg/dl Est Cr Clr Drug Dosing 36.2 ml/min Est GFR ( Amer) 56.6 Est GFR (Non-Af Amer) 48.8 BUN/Creatinine Ratio 13.8 (10-20) Glucose 132 H (70-99) mg/dl Lactate (0.4-2.0) mmol/L Calcium 9.0 (8.5-10.1) mg/dl Total Bilirubin 0.6 (0.2-1) mg/dl AST 15 (15-37) U/L ALT 21 (12-78) U/L Alkaline Phosphatase 119 H (45-117) U/L Total Protein 6.7 (6.4-8.2) gm/dl Albumin 3.3 L (3.4-5.0) gm/dl Globulin 3.4 (2.5-4.0) gm/dl Albumin/Globulin Ratio 1.0 (0.9-2) Lipase 53 L (73-393) U/L Urine Color Urine Appearance (Clear) Urine pH (4.5-7.5) Ur Specific [place] (1.000-1.030) Urine Protein (Negative) Urine Glucose (UA) (Negative) Urine Ketones (Negative) Urine Blood (Negative) Urine Nitrite (Negative) Urine Bilirubin (Negative) Urine Urobilinogen (Negative) Ur Leukocyte Esterase (Negative) Urine WBC (Auto) (0-5) /hpf Urine RBC (Auto) (0-4) /hpf U Hyaline Cast (Auto) (0-5) /lpf U Epithel Cells (Auto) (0-5) /lpf Urine Bacteria (Auto) (Negative) COVID-19 Eval Order CovFluRsv at [facility] SARS-CoV-2 (PCR) (Negative) Influenza Type A (PCR) (Neg) Influenza Type B (PCR) (Neg) RSV (RT-PCR) (Neg) 10/18/20 10/18/20 10/18/20 Range/Units 20:00 20:27 20:30 WBC (4.8-10.8) K/uL RBC (4.2-5.4) M/uL Hgb (12.0-16.0) g/dL Hct (37-47) % MCV (80-100) fL MCH (25-34) pg MCHC (32-36) g/dL RDW Std Deviation (36.4-46.3) fL RDW Coeff of Omar (11.5-14.5) % Plt Count (130-400) K/uL MPV (7.4-10.4) fL Immature Gran % (Auto) % Neut % (Auto) % Lymph % (Auto) % [place] % (Auto) % Eos % (Auto) % Baso % (Auto) % Neut # (Auto) (1.4-6.5) K/uL Lymph # (Auto) (1.2-3.4) K/uL [place] # (Auto) (0.11-0.59) K/uL Eos # (Auto) (0-0.5) K/uL Baso # (Auto) (0-0.2) K/uL Immature Gran # (Auto) (0.00-0.02) K/uL Sodium (136-145) mmol/L Potassium (3.5-5.1) mmol/L Chloride (98-107) mmol/L Carbon Dioxide (21-32) mmol/L Anion Gap (3-11) BUN (7-18) mg/dl Creatinine (0.6-1.2) mg/dl Est Cr Clr Drug Dosing ml/min Est GFR ( Amer) Est GFR (Non-Af Amer) BUN/Creatinine Ratio (10-20) Glucose (70-99) mg/dl Lactate 1.4 (0.4-2.0) mmol/L Calcium (8.5-10.1) mg/dl Total Bilirubin (0.2-1) mg/dl AST (15-37) U/L ALT (12-78) U/L Alkaline Phosphatase (45-117) U/L Total Protein (6.4-8.2) gm/dl Albumin (3.4-5.0) gm/dl Globulin (2.5-4.0) gm/dl Albumin/Globulin Ratio (0.9-2) Lipase (73-393) U/L Urine Color Dark Yellow Urine Appearance Cloudy A (Clear) Urine pH 6.5 (4.5-7.5) Ur Specific [place] 1.020 (1.000-1.030) Urine Protein Negative (Negative) Urine Glucose (UA) Negative (Negative) Urine Ketones Trace H (Negative) Urine Blood Negative (Negative) Urine Nitrite Negative (Negative) Urine Bilirubin 1+ H (Negative) Urine Urobilinogen Negative (Negative) Ur Leukocyte Esterase Negative (Negative) Urine WBC (Auto) 1-5 (0-5) /hpf Urine RBC (Auto) 0-4 (0-4) /hpf U Hyaline Cast (Auto) 1-5 (0-5) /lpf U Epithel Cells (Auto) 0-5 (0-5) /lpf Urine Bacteria (Auto) 4+ H (Negative) COVID-19 Eval Order SARS-CoV-2 (PCR) NEGATIVE (Negative) Influenza Type A (PCR) Negative (Neg) Influenza Type B (PCR) Negative (Neg) RSV (RT-PCR) Negative (Neg) Administered Medications Sodium Chloride (Nss 1000ml) 1,000 mls @ 125 mls/hr IV .Q8H STA Stop: 10/19/20 01:41 Last Admin: 10/18/20 18:21 Dose: 125 mls/hr Documented by: [id number] Discontinued Medications Hydromorphone HCl (Hydromorphone Inj 0.5 Mg/0.5 Ml Syr) 0.25 mg IV NOW STA Stop: 10/18/20 17:44 Last Admin: 10/18/20 18:21 Dose: 0.25 mg Documented by: [id number] Sodium Chloride (Nss 1000ml) 500 mls @ 999 mls/hr IV .Q31M ONE Stop: 10/18/20 18:12 Last Infusion: 10/18/20 19:58 Dose: 0 mls/hr Documented by: [id number] Admin: 10/18/20 18:20 Dose: 999 mls/hr Documented by: [id number] Sodium Chloride (Nss 1000ml) 500 mls @ 999 mls/hr IV .Q31M ONE Stop: 10/18/20 20:05 Last Infusion: 10/18/20 20:42 Dose: 0 mls/hr Documented by: [id number] Admin: 10/18/20 20:15 Dose: 999 mls/hr Documented by: [id number] Ondansetron HCl (Ondansetron Inj 2 Mg/Ml 2 Ml Vial) 4 mg IV NOW STA Stop: 10/18/20 17:44 Last Admin: 10/18/20 18:21 Dose: 4 mg Documented by: [id number] Discharge Plan Visit Data Chief Complaint: Abdominal Pain ED Provider: Galdino Archer Discharge Problem: Abdominal pain, Colostomy present, Nausea Forms Stand Alone Forms: [facility] Prescriptions Prescriptions: No Action nitroglycerin 0.4 mg tablet, sublingual 0.4 mg SL Q5M PRN (Reason: chest pain) Qty: 1 RF: 0 cholecalciferol (vitamin D3) 2,000 unit capsule 2,000 units PO QAM RF: 0 prazosin 1 mg capsule 1 mg PO HS Qty: 30 RF: 5 fluticasone propionate [Flonase Allergy Relief] 50 mcg/actuation spray,suspension 2 spray INTRANASAL DAILY PRN (Reason: Congestion) Qty: 18.2 RF: 5 lidocaine 5 % adhesive patch,medicated 1 patch TOP DAILY PRN (Reason: Lumbar pain) Qty: 30 RF: 5 hydroxychloroquine 200 mg tablet 200 mg PO QAM Qty: 90 RF: 1 quetiapine 200 mg tablet 200 mg PO HS Qty: 90 RF: 1 levothyroxine [Synthroid] 88 mcg tablet 88 mcg PO QAM Qty: 90 RF: 1 duloxetine [Cymbalta] 60 mg capsule,delayed release(DR/EC) 60 mg PO QAM Qty: 90 RF: 1 duloxetine 30 mg capsule,delayed release(DR/EC) 30 mg PO QAM Qty: 90 RF: 1 famotidine 40 mg tablet 40 mg PO HS Qty: 90 RF: 1 midodrine 5 mg tablet 5 mg PO TID Qty: 90 RF: 5 atorvastatin 40 mg tablet 40 mg PO QAM Qty: 90 RF: 1 oxycodone 10 mg tablet 10 mg PO BID Qty: 60 RF: 0 Myrbetriq 50 mg tablet extended release 24 hr 50 mg PO DAILY Qty: 90 RF: 1 cyanocobalamin (vitamin B-12) [Vitamin B-12] 1,000 mcg Tablet 1,000 mcg PO QAM RF: 0 Ocuvite with Lutein 1,000 unit-200 mg-60 unit-2 mg Tablet 1 tab PO QAM RF: 0 gabapentin 300 mg capsule 300 mg PO TID RF: 0 vitamin B complex Tablet 1 tab PO QAM RF: 0 Azo Urinary Pain Relief 97.5 mg Tablet 97.5 mg PO TID PRN (Reason: .URINARY PAIN) RF: 0 clopidogrel [Plavix] 75 mg Tablet 75 mg PO QAM RF: 0 polyethylene glycol 3350 [Miralax] 17 gram powder in packet 17 gm PO QAM Qty: 1 RF: 0 Cora 60 mg Capsule 60 mg PO QAM RF: 0 ondansetron 8 mg tablet,disintegrating 8 mg PO Q6H PRN (Reason: Nausea) RF: 0 acetaminophen [Tylenol Extra Strength] 500 mg Tablet 1,000 mg PO PM PRN (Reason: Pain) RF: 0 prednisone 10 mg tablet 10 mg PO QAM RF: 0
[2020-10-18 18:44] LABS: Albumin Level 3.3 gm/dl (3.4-5.0); BUN Creatinine Ratio 13.8 (10-20); Creatinine Clr Calc Pharmacy 36.2 ml/min; Est GFR (African American) 56.6; Est GFR (Non-African American) 48.8
[2020-10-18 18:47] LABS: Bilirubin,Total 0.6 mg/dl (0.2-1); Globulin 3.4 gm/dl (2.5-4.0); Total Protein 6.7 gm/dl (6.4-8.2)
--- NOTE | 2020-10-18 19:07 | CT Scan Report ---
CT SCAN OF THE ABDOMEN AND PELVIS WITHOUT CONTRAST CLINICAL HISTORY: abd distension , pain COMPARISON STUDY: November 20, 2019 TECHNIQUE: CT scan of the abdomen and pelvis was performed from the lung bases to the proximal femurs . Images are reviewed in the axial, sagittal, and coronal planes. IV contrast was not administered fo r this examination. A dose lowering technique was utilized adhering to the principles of ALARA. CT DOSE: 1007.62 mGycm FINDINGS: Lower chest: There are coronary artery calcifications. There is basilar atelectasis. Liver: There is mild hepatic steatosis. No focal masses are visualized in this noncontrast study. Gallbladder: Surgically Spleen: Normal in size and attenuation. Pancreas: Atrophic. No masses identified. Adrenal glands: Unremarkable. Kidneys: There are multiple bilateral nonobstructing renal calculi. No ureteral or bladder calculi ar e visualized. Bowel: There are no transition zones to indicate bowel obstruction. There is diverticulosis. There is no evidence of acute diverticulitis. There is no evidence of acute appendicitis. There is evidence f or a prior partial sigmoid resection. There is a blind-ending sigmoid. There is a left lower quadrant colostomy with a parastomal hernia. There is a moderate fecal load. Peritoneum: There is no intraperitoneal free air or abdominal ascites. Vasculature: The abdominal aorta is normal in course and caliber. Adenopathy: None. Pelvic viscera: There is a displaced the pelvis is somewhat limited due to artifact from hip arthropl asties. The patient appears be status post a prior hysterectomy. No pathologic masses are visualized. Skeletal structures: There are postsurgical changes of bilateral hip arthroplasties. No destructive s keletal lesions are visualized. Degenerative changes are present within the spine. IMPRESSION: 1. No acute abdominal or pelvic findings 2. Postsurgical changes of a prior partial sigmoid resection with left lower quadrant colostomy. Ther e is a parastomal hernia. 3. Pandiverticulosis. No evidence of acute diverticulitis 4. No evidence of acute appendicitis 5. Bilateral nephrolithiasis. No ureteral or bladder calculi identified ACT 112: Negative or not required by law. Electronically signed by: Fredy Boyd M.D. 10/18/2020 7:05 PM
[2020-10-18 20:47] LABS: Appearance Urine Cloudy (Clear); Bacteria Urine Automated 4+ (Negative); Blood Urine Negative (Negative); Color Urine Dark Yellow; Epithelial Cell Urine Auto 0-5 /lpf (0-5); Glucose Urine UA Negative (Negative); Ketones Urine Trace (Negative); Leukocyte Esterase Urine Negative (Negative); Nitrite Urine Negative (Negative); Protein Urine Negative (Negative); RBC Urine Automated 0-4 /hpf (0-4); Urobilinogen Urine Negative (Negative); pH Urine 6.5 (4.5-7.5)
[2020-10-18 20:55] LABS: Bilirubin Urine 1+ (Negative)
[2020-10-18 21:25] LABS: Influenza A virus by PCR Negative (Neg); Influenza B virus by PCR Negative (Neg); RSV by PCR Negative (Neg); SARS CoV2 RNA(COVID-19) InHosp NEGATIVE (Negative)
[2020-10-18] MEDS ORDERED: cefTRIAXone SODIUM 1,000 MG/50 ML BAG IV STA (21:25)
--- NOTE | 2020-10-18 22:37 | History & Physical Report ---
Date of Service October 18, 2020 Assessment & Plan (1) Acute UTI: Sheridan Neal is a 89 y/o female with past medical hx of UTI with ESBL, chronic diastolic failure, stage III CKD, Chronic respiratory failure on O2 on admission, anemia of chronic disease, adrenocorticol deficiency, RA, co lectomy with colostomy, chronic pain on oxycontin chronically, constipation, HLD, HTN, PAD, wound ulcers, who presented to [facility] for CC of Abdominal pain. - Positive UA in ED, hx of ESBL positive UTIs. Was started on Rocephin in ED, but stopped once reviewed old EMR. Will start on Unasyn per prior sensitivities. Fluroquinolone allergy limiting abx treatment. - Follow urine culture for further clinical treatment based on ID and sensitivities. - In ED received, Dilaudid 0.25mg IV, Zofran 5mg IV, NS 500cc Bolus x 2, then on NSS @ 125mL Code: DNR/DNI DVT ppx: Heparin 7500 units TID FENGI: Full liquid advance as tolerated heart healthy Dispo: Obs (2) Abdominal pain: suspect secondary to constipation and hard stool. Notes decreased PO intake causing dehydration and hard stools. On chronic Opioids at home. Will increase home Miralax to BID. Encourage PO intake. C/w home Oxycontin, Morphine 2mg IV for severe pain only as constipation is also contributed by opioid use. Consider Relastor for treatment. - Will treat with treating UTI, controlling nausea, increasing oral PO intake, increase water intake. on Mirabegron 50mg at home, NF here. CT Abd: - unremarkable for etiology IMPRESSION: 1. No acute abdominal or pelvic findings 2. Postsurgical changes of a prior partial sigmoid resection with left lower quadrant colostomy. There is a parastomal hernia. 3. Pandiverticulosis. No evidence of acute diverticulitis 4. No evidence of acute appendicitis 5. Bilateral nephrolithiasis. No ureteral or bladder calculi identified (3) Nausea: secondary to UTI vs. polypharmacy. Zofran 4mg q6h IV ordered (4) Adrenocortical insufficiency: Continue with Pred 10mg PO qAM (5) Peripheral artery disease: noted in hx (6) Ischemic ulcer: will consult wound care during hospitalization for wound care (7) Stage III chronic kidney disease: no signs of acute failure, creat in ED 1.03 (8) Chronic diastolic heart failure: C/w atorvastatin and Plavix use IV fluids with caution, received 1L NSS in ED (9) Neuropathy: c/w home gabapentin (10) Hyperlipidemia: c/w home statin (11) Rheumatoid factor positive with cyclic citrullinated peptide (CCP) antibody negative: c/w home hydroxychloroquine (12) Colostomy present: colostomy care (13) Polyarthritis: c.w home oxycontin c/w home duloxetine (14) Hypothyroidism: c/w home synthroid History of Present Illness Chief Complaint: Abdominal Pain Primary Care Provider: Nidhi Gardner MD Sheridan Neal is a 89 y/o female with past medical hx of UTI with ESBL, chronic diastolic failure, stage III CKD, Chronic respiratory failure on O2 on admission, anemia of chronic disease, adrenocorticol deficiency, RA, colectomy with colostomy, chronic pain on oxycontin chronically, constipation, HLD, HTN, PAD, wound ulcers, who presented to [facility] for CC of Abdominal pain. She notes symptoms started about 3 days ago. She was having crampy abdominal pain located across lower abdomen that would wax and wan. She noted decreased stool output into colostomy and also that stool was hard. She notes that she has had nausea for the past 3 days without vomiting. She notes that oral intake made nausea worse. She notes she was still able to take all her oral medications at home. But, she notes she was dehydrated from poor oral intake. She also notes dysuria for the past 3 days as well. Denies any black/bloody BMs, chest pain, shortness of breath worse from baseline, fever, chills, diarrhea. Allergies Allergy/AdvReac Type Severity Reaction Status Date / Time nitrofurantoin Allergy Severe HIVES Verified 10/18/20 21:40 scallops Allergy Severe THROAT Verified 10/18/20 21:40 SWELLS Cipro Allergy Intermediate HIVES Verified 06/03/18 16:34 ciprofloxacin Allergy Intermediate HIVES Verified 10/18/20 21:40 latex Allergy Intermediate RASH Verified 10/18/20 21:40 Quinolones Allergy Intermediate HIVES Verified 10/18/20 21:40 fluticasone Allergy Unknown ADVAIR-UNKN Verified 10/18/20 21:40 OWN salmeterol Allergy Unknown ADVAIR Verified 10/18/20 21:40 shellfish derived Allergy SCALLOPS-THROAT Verified 10/18/20 21:40 SWELLS celecoxib AdvReac Intermediate barretts Verified 10/18/20 21:40 esophagus lactose AdvReac Intermediate GI UPSET Verified 10/01/20 14:55 milk AdvReac Intermediate LACTOSE Verified 10/01/20 14:55 INTOLERANT morphine AdvReac Intermediate NAUSEA AND Verified 10/01/20 14:55 VOMITING Home Medications Medication Instructions Recorded Confirmed Type cholecalciferol (vitamin D3) 50 2,000 units PO QAM 07/07/18 10/18/20 History mcg (2,000 unit) capsule nitroglycerin 0.4 mg sublingual 0.4 mg SL Q5M PRN #1 tab 07/07/18 10/18/20 Rx tablet Ocuvite with Lutein 1 tab PO QAM 08/31/18 10/18/20 History cyanocobalamin (vitamin B-12) 1,000 mcg PO QAM 08/31/18 10/18/20 History [Vitamin B-12] gabapentin 300 mg PO TID 09/26/18 10/18/20 History vitamin B complex 1 tab PO QAM 09/26/18 10/18/20 History Azo Urinary Pain Relief 97.5 mg PO TID PRN 11/07/18 10/18/20 History acetaminophen [Tylenol Extra 1,000 mg PO PM PRN 01/03/19 10/18/20 History Strength] clopidogrel [Plavix] 75 mg PO QAM 05/07/19 10/18/20 History polyethylene glycol 3350 [Miralax] 17 gm PO QAM #1 ea 11/25/19 10/18/20 Rx prazosin 1 mg capsule 1 mg PO HS #30 cap 02/20/20 10/18/20 Rx fluticasone propionate 50 2 spray INTRANASAL DAILY PRN #18.2 02/21/20 10/18/20 Rx mcg/actuation nasal ml spray,suspension lidocaine 5 % topical patch 1 patch TOP DAILY PRN #30 ea 03/26/20 10/18/20 Rx prednisone 10 mg PO QAM 06/05/20 10/18/20 History Synthroid 88 mcg tablet 88 mcg PO QAM #90 tab NS 06/11/20 10/18/20 Rx hydroxychloroquine 200 mg tablet 200 mg PO QAM #90 tab 06/11/20 10/18/20 Rx quetiapine 200 mg tablet 200 mg PO HS #90 tab 06/11/20 10/18/20 Rx duloxetine 30 mg capsule,delayed 30 mg PO QAM #90 cap 08/14/20 10/18/20 Rx release duloxetine 60 mg capsule,delayed 60 mg PO QAM #90 cap 08/14/20 10/18/20 Rx release famotidine 40 mg tablet 40 mg PO HS #90 tab 08/14/20 10/18/20 Rx midodrine 5 mg tablet 5 mg PO TID #90 tab 08/14/20 10/18/20 Rx atorvastatin 40 mg tablet 40 mg PO QAM #90 tab 08/23/20 10/18/20 Rx oxycodone 10 mg tablet 10 mg PO BID #60 tab 09/19/20 10/18/20 Rx mirabegron 50 mg tablet,extended 50 mg PO DAILY #90 tab 09/20/20 10/18/20 Rx release 24 hr fexofenadine [Cora] 60 mg PO QAM 10/18/20 10/18/20 History ondansetron 8 mg PO Q6H PRN 10/18/20 10/18/20 History Past Med/Surg History Medical History (Updated 10/18/20 @ 23:02 by Ismael Garcia DO) Adrenocortical insufficiency Anemia of chronic disease Arteriosclerosis of coronary artery Balance problem Barretts esophagus Cholecystectomy (03/10/13) Chronic back pain Chronic cystitis CKD (chronic kidney disease), stage III does not follow with nephrology Colostomy present Colovaginal fistula Depression Diverticular disease DM type 2 (diabetes mellitus, type 2) Esophageal spasm Fibromyalgia GERD (gastroesophageal reflux disease) Hearing deficit BL PRYOR Hiatal hernia History of aspiration pneumonia last occurence 11/2019 History of pneumonia Hypercholesterolemia Hypothyroidism Impaired mobility and ADLs Iron deficiency anemia Lactose intolerance 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 of systemic steroids Long-term use of hydroxychloroquine Lumbar canal stenosis Major depressive disorder, recurrent episode with anxious distress On home oxygen therapy 3 LPM cont Orthostatic hypotension Peripheral edema Peripheral neuropathy Pituitary adenoma (03/10/13) Polyarthritis Poor balance Pre-diabetes Presence of colostomy Rheumatoid arthritis Solitary pulmonary nodule Steroid-induced osteopenia TIA (transient ischemic attack) 3-4 years ago Urinary incontinence Urinary retention Surgical History H/O: hysterectomy HOLGER, BSO History of cardiac catheterization 2010 -- no stents/angioplasty -- [facility] - CP - dtr believes she follows w/ [facility] History of colon surgery History of hip replacement bilateral History of surgery transsphenoidal tumor removal History of surgical removal of pituitary gland History of tooth extraction History of vascular surgery BLLE - stents Hx of cholecystectomy Family History Grandmother (Maternal) Breast cancer Uterine cancer Father Cardiomyopathy Mother Alzheimer disease Son Colorectal cancer Daughter Breast cancer Other Cancer Diabetes Gallbladder disease Heart disease Hypertension No family history of adverse response to anesthesia Seizure Denies family history of Malignant hypothermia due to anesthesia Ovarian cancer Prostate cancer Crohn's disease Myocardial infarction Bleeding disorder Ulcerative colitis Social History Smoking Status: Former smoker Second Hand Exposure: No; Do You Dip or Chew Tobacco: No; Tobacco Cessation Education Requested by Patient: No Hx Alcohol Use: No Hx Substance Use: No Preferred Language: Kyrgyz Communication Ability: Effective Visual Impairment: No Limitations Hearing Ability: Hard of Hearing Water Jet 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 marital status: / Current Living Situation: Alone Current Living Situation Comment: has caretakers during day current occupational status: retired How many Children do You have: 5 Other Information That Helps Us Care for You: No Feels Safe at Home: Yes Safety Concerns: Feels Safe At This Time Childhood Exposure to Second-Hand Smoke: Yes caffeine: Yes during the past year weight has: remained stable Dental Care, Regularly: Yes Physical Activity Frequency: Does not Exercise Seatbelt Use: always Sunscreen Use: Yes Do you think of yourself as: straight/heterosexual Assistive Devices: Denture - Upper, Denture - Lower, Glasses and Walker Assistive Devices Comment: Glasses not present. Review of Systems Review of Systems: All systems reviewed & are unremarkable except as noted in HPI & below Constitutional: no fever and no chills Eyes: no blind spots and no diplopia Ear, Nose, Mouth, Throat: no ear pain, no nasal congestion and no epistaxis Respiratory: no cough and no dyspnea Cardiovascular: no chest pain and no palpitations Gastrointestinal: as per Subjective / HPI and + abdominal pain; no vomiting Genitourinary: as per Subjective / HPI and + dysuria Musculoskeletal: chronic poly arthritic pain Integumentary: no rash Neurologic: no paralysis and no syncope Endocrine: no polydipsia and no polyphagia Physical Exam Constitutional: cooperative; no acute distress appears uncomfortable intermittently Eyes: PERRL, conjunctivae normal, anicteric sclerae ENMT: external ear and nose normal, oropharynx normal Neck: trachea midline, no thyromegaly Respiratory: normal respiratory effort; no respiratory distress Auscultation: no crackles and no wheezes Cardiovascular: Rate/Rhythm: regular rate and regular rhythm Gastrointestinal (Abdomen): Percussion/Palpation: + abdomen tender (RLQ mild); no guarding and abdomen not rigid colostomy to LLQ, possible stool ball felt RLQ Musculoskeletal: Head/Neck/Chest: normocephalic and head atraumatic Skin: warm and dry Neurologic: moves all extremities and awake Psychiatric: Orientation: alert and oriented x 3 Affect: + anxious affect Results & Data Results & Data ([facility]) Vital Signs (Past 12 Hours) Vital Signs Temp Pulse Resp BP Pulse Ox 10/18/20 22:00 96 H 18 151/88 H 98 10/18/20 21:30 97 H 17 160/78 H 98 10/18/20 21:01 97 H 14 173/77 H 99 10/18/20 20:40 96 H 20 143/63 H 100 10/18/20 20:30 95 H 22 143/63 H 100 10/18/20 20:00 95 H 22 93 10/18/20 19:30 93 H 16 100 10/18/20 19:00 96 H 21 100 10/18/20 18:56 96 H 20 178/81 H 100 10/18/20 18:30 92 H 16 100 10/18/20 17:28 93 H 10 L 194/88 H 99 10/18/20 17:21 36.8 C 97 H 22 194/88 H 99 Code Status & VTE Plan Code Status DNR/DNI VTE Prophylaxis Plan VTE Prophylaxis will be ordered: Yes Supervising Physician Co-Signing Physician Notes Attending addendum: I have physically seen this patient, have supervised the medical residents activities, and agree with the H&P unless as otherwise noted. Assessment and Plan: Urinary tract infection- Follow urine culture and sensitivity History of ESBL Klebsiella pneumonia, Enterobacter cloacae. Started on Unasyn IV, after receiving IV Zosyn in the ED. Continue IV fluid rehydration with NSS at 125 mils per hour Chronic abdominal pain on chronic opioids at home/status post partial sigmoid resection and left lower quadrant colostomy with parastomal hernia- MiraLAX has been increased to twice daily If otherwise fails, consider Relistor or Movantik Arthritis/RF positive and CCP negative- Continue hydroxychloroquine, OxyContin and duloxetine PAD/chronic diastolic heart failure- Continue atorvastatin and clopidogrel Remaining orders and notations as noted Resident Activity Tracking Resident Involvement: Resident Care Provided Care Provided: Adult Hospital Medicine
[2020-10-19] MEDS ORDERED: ONDANSETRON INJ 2 MG/ML 2 ML VIAL IV PRN (00:27)
[2020-10-19] MEDS ORDERED: PIPERACILL/TAZOBAC CONSULT ACTIVE PRN (00:27)
[2020-10-19] MEDS ORDERED: ACETAMINOPHEN 325 MG TAB PO PRN (00:27)
[2020-10-19] MEDS ORDERED: MoRPHine SULFATE 2 MG/ML CARP IV PRN (00:27)
[2020-10-19] MEDS ORDERED: NITROGLYCERIN SL 0.4 MG/TAB TAB SL PRN (00:27)
[2020-10-19] MEDS ORDERED: PIPERACILLIN/TAZOBACTAM 3.375 GM in DEXTROSE 5% 100 ML IV ONE (02:00)
[2020-10-19] MEDS: LEVOTHYROXINE SODIUM 88 MCG TABLET PO SCH (06:47)
[2020-10-19] MEDS: PIPERACILLIN/TAZOBACTAM 3.375 GM in DEXTROSE 5% 100 ML IV SCH ×3 (06:48→21:48)
[2020-10-19] MEDS: HEPARIN SOD 5,000 UNIT/0.5 ML VIAL SQ SCH ×3 (06:48→21:49)
[2020-10-19 07:55] LABS: Basophils # (auto) 0.05 K/uL (0-0.2); Basophils % (auto) 0.4 %; Eosinophils # (auto) 0.91 K/uL (0-0.5); Eosinophils % (auto) 7.6 %; Hematocrit (blood only) 30.9 % (37-47); Hemoglobin 9.3 g/dL (12.0-16.0); Immature Granulocytes # (auto) 0.03 K/uL (0.00-0.02); Immature Granulocytes % (auto) 0.3 %; Lymphocytes # (auto) 1.96 K/uL (1.2-3.4); Lymphocytes % (auto) 16.4 %; Mean Corpuscular Hemoglobin 26.8 pg (25-34); Mean Corpuscular Hgb Conc 30.1 g/dL (32-36); Monocytes # (auto) 1.53 K/uL (0.11-0.59); Monocytes % (auto) 12.8 %; Neutrophils # (auto) 7.47 K/uL (1.4-6.5); Neutrophils % (auto) 62.5 %; Platelet Count 229 K/uL (130-400); RDW Coefficient of Variation 15.5 % (11.5-14.5); RDW Standard Deviation 50.2 fL (36.4-46.3); Red Blood Count 3.47 M/uL (4.2-5.4); White Blood Count 11.95 K/uL (4.8-10.8)
[2020-10-19 08:36] LABS: Albumin Level 2.8 gm/dl (3.4-5.0); BUN Creatinine Ratio 11.9 (10-20); Bilirubin,Total 0.5 mg/dl (0.2-1); Calcium 7.9 mg/dl (8.5-10.1); Creatinine Clr Calc Pharmacy 40.7 ml/min; Est GFR (African American) 64.9; Globulin 2.8 gm/dl (2.5-4.0); Potassium 3.2 mmol/L (3.5-5.1); Total Protein 5.6 gm/dl (6.4-8.2)
[2020-10-19] MEDS: MIDODRINE HCL 2.5 MG TAB PO SCH ×3 (09:11→19:15)
[2020-10-19] MEDS: HYDROXYCHLOROQUINE SULFATE 200 MG TAB PO SCH (09:12)
[2020-10-19] MEDS: GABAPENTIN 300 MG CAP PO SCH ×3 (09:12→22:05)
[2020-10-19] MEDS: DULoxetine HCL 30 MG CAP PO SCH (09:12)
[2020-10-19] MEDS: CLOPIDOGREL BISULFATE 75 MG TAB PO SCH (09:12)
[2020-10-19] MEDS: ATORVASTATIN 40 MG TAB PO SCH (09:12)
[2020-10-19] MEDS: predniSONE 10 MG TABLET PO SCH (09:12)
[2020-10-19] MEDS: DULoxetine HCL 60 MG CAP PO SCH (09:12)
[2020-10-19] MEDS: POLYETHYLENE (MIRALAX) 17 GM PACK PO SCH ×2 (09:19→21:48)
[2020-10-19] MEDS: oxyCODONE HCL IR 5 MG TAB (IMMEDIATE RELEASE) PO SCH ×2 (09:19→21:48)
--- NOTE | 2020-10-19 11:13 | Electrocardiogram Report ---
Test Reason : Blood Pressure : / mmHG Vent. Rate : 093 BPM Atrial Rate : 093 BPM P-R Int : 142 ms QRS Dur : 110 ms QT Int : 378 ms P-R-T Axes : 044 057 008 degrees QTc Int : 469 ms Poor data quality, interpretation may be adversely affected Normal sinus rhythm Low voltage QRS Incomplete right bundle branch block Borderline ECG When compared with ECG of 22-NOV-2019 07:24, No significant change was found Confirmed by iVnce Wisdom ([id number]) on 10/19/2020 11:12:52 AM Referred By: REFERRED SELF Confirmed By:Sidney Wisdom
--- NOTE | 2020-10-19 18:28 | Hospitalist Progress Note ---
Date of Service October 19, 2020 Assessment & Plan (1) Acute UTI: Sheridan Neal is a 89 y/o female with past medical hx of UTI with ESBL, chronic diastolic failure, stage III CKD, Chronic respiratory failure on O2 on admission, anemia of chronic disease, adrenocorticol deficiency, RA, co lectomy with colostomy, chronic pain on oxycontin chronically, constipation, HLD, HTN, PAD, wound ulcers, who presented to [facility] for CC of Abdominal pain. Acute UTI - Positive UA in ED, hx of ESBL positive UTIs - Was started on Rocephin in ED, but stopped once reviewed old EMR - In ED received, Dilaudid 0.25mg IV, Zofran 5mg IV, NS 500cc Bolus x 2, then on NSS @ 125mL - On admission, started on Unasyn per prior sensitivities. Fluroquinolone allergy limiting abx treatment. - Follow urine culture for further clinical treatment based on ID and sensitivities. - CBC qAM Abdominal pain and Nausea - Suspect multifactorial related to constipation/hard stool, dehydration secondary to decreased PO intake, UTI, and constipation/hard stool secondary to chronic opioids at home. - On admission, home Miralax increased to BID - Encourage PO intake. - C/w home Oxycontin, Morphine 2mg IV for severe pain only as constipation is also contributed by opioid use. Consider Relastor for treatment. - Will treat with treating UTI, controlling nausea, increasing oral PO intake, increase water intake. - On Mirabegron 50mg at home but NF here - CT Abd in ED unremarkable for etiology -- No acute abdominal or pelvic findings; Postsurgical changes of a prior partial sigmoid resection with left lower quadrant colostomy. 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 No evidence of acute diverticulitis; No evidence of acute appendicitis; Bilateral nephrolithiasis. No ureteral or bladder calculi identified - Zofran 4mg IV q6h Adrenocortical insufficiency - Continue with Pred 10mg PO qAM Ischemic ulcer - Will consult wound care during hospitalization for wound care Stage III chronic kidney disease - No signs of acute failure, creat in ED 1.03 - CMP qAM Chronic diastolic heart failure - C/w atorvastatin and Plavix - Use IV fluids with caution, received 1L NSS in ED Neuropathy - c/w home gabapentin Hyperlipidemia - c/w home statin Rheumatoid factor positive with cyclic citrullinated peptide (CCP) antibody negative - c/w home hydroxychloroquine Colostomy present - colostomy care Polyarthritis - c.w home oxycontin - c/w home duloxetine Hypothyroidism - c/w home synthroid Code: DNR/DNI DVT ppx: Heparin 7500 units TID FENGI: Full liquid; advance as tolerated heart healthy Dispo: Obs (2) Abdominal pain: (3) Nausea: (4) Adrenocortical insufficiency: (5) Peripheral artery disease: (6) Ischemic ulcer: (7) Stage III chronic kidney disease: (8) Chronic diastolic heart failure: (9) Neuropathy: (10) Hyperlipidemia: (11) Rheumatoid factor positive with cyclic citrullinated peptide (CCP) antibody negative: (12) Colostomy present: (13) Constipation: (14) Polyarthritis: (15) Hypothyroidism: Admission and Anticipated Discharge Date Admission Date: October 18, 2020 Supervising Physician Co-Signing Physician Notes I personally examined the patient and verified all amaro points of history and exam, discussed case, and agree with decision making with Dr Mei. feeling better. notes that she has a lot of caregivers at home round the clock so notes will not need rehab vitals noted nad heent nc at mmm breathing unlabored no accessory muscles good effort skin no rashes no pallor or icterus presumed complicatd/MDR UTI - continue current meds for now, pending ID&S constpiation - improved weakness - has caregivers. PT/OT otherwise as above Subjective Patient was seen and evaluated at bedside this morning. She states that overall she is feeling "much better" and that her abdominal pain has essentially resolved. Patient reports having nausea overnight but the nausea has resolved. She has no other complaints or concerns this morning. Patient denies dysuria, hematuria, fever, chills, CP, SOB, or vomiting. Review of Systems Constitutional: no fever and no chills Respiratory: no cough and no dyspnea Cardiovascular: no chest pain Gastrointestinal: + abdominal pain Genitourinary: no dysuria and no hematuria Physical Exam Physical Exam: GENERAL: No acute distress. Well developed and well nourished. Vital signs reviewed. EYES: EOMI. Anicteric sclerae. HENT: Moist mucous membranes. RESPIRATORY: Clear to auscultation bilaterally. No wheezing, rales, or rhonchi. CARDIOVASCULAR: Regular rate and rhythm. No murmurs. ABDOMEN: Soft, non-tender and non-distended. Normal bowel sounds. Colostomy in place with normal brown liquid stool output in bag. EXTREMITIES: No edema. Non-tender. SKIN: Warm, dry. PSYCHIATRIC: Cooperative. Appropriate mood and affect. Results & Data Results & Data ([facility]) Vital Signs (Past 12 Hours) Vital Signs Temp Pulse Resp BP Pulse Ox 10/19/20 15:40 36.8 C 91 H 16 132/67 100 10/19/20 07:24 37.1 C 95 H 20 128/74 100 Resident Activity Tracking Resident Involvement: Resident Care Provided Care Provided: Adult Hospital Medicine
--- NOTE | 2020-10-19 19:17 | Billing Data ---
Date of Service October 19, 2020 Coding Level of Care Code 52834 Subseq Obs Care Lvl 3
--- NOTE | 2020-10-19 20:08 | Billing Data ---
Date of Service October 19, 2020 Coding Level of Care Code 00720 OBS Care - Level 3
[2020-10-19] MEDS: PRAZOSIN HCL 1 MG CAP PO SCH (21:49)
[2020-10-19] MEDS: QUEtiapine FUMARATE 200 MG TAB PO SCH (21:49)
[2020-10-19] MEDS: FAMOTIDINE 40 MG TABLET PO SCH (21:49)
[2020-10-20] MEDS: HEPARIN SOD 5,000 UNIT/0.5 ML VIAL SQ SCH ×3 (05:02→20:08)
[2020-10-20] MEDS: LEVOTHYROXINE SODIUM 88 MCG TABLET PO SCH (05:02)
[2020-10-20] MEDS: PIPERACILLIN/TAZOBACTAM 3.375 GM in DEXTROSE 5% 100 ML IV SCH ×2 (05:02→13:12)
[2020-10-20 08:14] LABS: Basophils # (auto) 0.03 K/uL (0-0.2); Basophils % (auto) 0.4 %; Eosinophils # (auto) 0.85 K/uL (0-0.5); Eosinophils % (auto) 12.6 %; Hematocrit (blood only) 30.3 % (37-47); Hemoglobin 9.1 g/dL (12.0-16.0); Immature Granulocytes # (auto) 0.03 K/uL (0.00-0.02); Immature Granulocytes % (auto) 0.4 %; Lymphocytes # (auto) 1.83 K/uL (1.2-3.4); Lymphocytes % (auto) 27.2 %; Mean Corpuscular Hemoglobin 27.2 pg (25-34); Mean Corpuscular Volume 90.4 fL (80-100); Mean Platelet Volume 10.3 fL (7.4-10.4); Monocytes # (auto) 0.96 K/uL (0.11-0.59); Monocytes % (auto) 14.3 %; Neutrophils # (auto) 3.02 K/uL (1.4-6.5); Neutrophils % (auto) 45.1 %; Platelet Count 188 K/uL (130-400); RDW Coefficient of Variation 15.6 % (11.5-14.5); RDW Standard Deviation 51.9 fL (36.4-46.3); Red Blood Count 3.35 M/uL (4.2-5.4); White Blood Count 6.72 K/uL (4.8-10.8)
[2020-10-20 08:46] LABS: Albumin Level 2.8 gm/dl (3.4-5.0); BUN Creatinine Ratio 8.1 (10-20); Calcium 8.5 mg/dl (8.5-10.1); Creatinine Clr Calc Pharmacy 32.6 ml/min; Est GFR (African American) 49.5; Est GFR (Non-African American) 42.7; Potassium 3.3 mmol/L (3.5-5.1)
[2020-10-20 08:49] LABS: Bilirubin,Total 0.3 mg/dl (0.2-1); Globulin 2.9 gm/dl (2.5-4.0); Total Protein 5.7 gm/dl (6.4-8.2)
[2020-10-20] MEDS: oxyCODONE HCL IR 5 MG TAB (IMMEDIATE RELEASE) PO SCH ×2 (08:58→20:07)
[2020-10-20] MEDS: HYDROXYCHLOROQUINE SULFATE 200 MG TAB PO SCH (09:05)
[2020-10-20] MEDS: POLYETHYLENE (MIRALAX) 17 GM PACK PO SCH ×2 (09:05→20:07)
[2020-10-20] MEDS: predniSONE 10 MG TABLET PO SCH (09:06)
[2020-10-20] MEDS: DULoxetine HCL 30 MG CAP PO SCH (09:06)
[2020-10-20] MEDS: CLOPIDOGREL BISULFATE 75 MG TAB PO SCH (09:06)
[2020-10-20] MEDS: ATORVASTATIN 40 MG TAB PO SCH (09:06)
[2020-10-20] MEDS: DULoxetine HCL 60 MG CAP PO SCH (09:06)
[2020-10-20] MEDS: MIDODRINE HCL 2.5 MG TAB PO SCH ×3 (09:06→17:06)
[2020-10-20] MEDS: GABAPENTIN 300 MG CAP PO SCH ×3 (09:06→20:07)
--- NOTE | 2020-10-20 16:30 | Hospitalist Progress Note ---
Date of Service October 20, 2020 Assessment & Plan (1) Acute UTI: Sheridan Neal is a 89 y/o female with past medical hx of UTI with ESBL, chronic diastolic failure, stage III CKD, Chronic respiratory failure on O2 on admission, anemia of chronic disease, adrenocorticol deficiency, RA, c olectomy with colostomy, chronic pain on oxycontin chronically, constipation, HLD, HTN, PAD, wound ulcers, who presented to [facility] for CC of Abdominal pain. Acute UTI - Positive UA in ED, hx of ESBL positive UTIs - Was started on Rocephin in ED, but stopped once reviewed old EMR - In ED received, Dilaudid 0.25mg IV, Zofran 5mg IV, NS 500cc Bolus x 2, then on NSS @ 125mL - On admission, started on Unasyn per prior sensitivities. Fluoroquinolone allergy limiting abx treatment. - Follow urine culture for further clinical treatment based on ID and sensitivities. - As of 10/20/20, urine growing klebsiella ozaenae and alpha strep (not enterococcus) - Abx changed from Unasyn to Ertapenem. Ertapenem selected secondary to sensitivities and hx of allergies (allergies to cipro and quinolones). Will continue Ertapenem 1g IV for a total treatment of 7 days (with stop date of 10/26/20). Will plan for d/c home tomorrow with IV abx - CBC qAM Abdominal pain and Nausea - Suspect multifactorial related to constipation/hard stool, dehydration secondary to decreased PO intake, UTI, and constipation/hard stool secondary to chronic opioids at home. - On admission, home Miralax increased to BID - Encourage PO intake. - C/w home Oxycontin, Morphine 2mg IV for severe pain only as constipation is also contributed by opioid use. Consider Relastor for treatment. - Will treat by treating UTI, controlling nausea, increasing oral PO intake, increase water intake. - On Mirabegron 50mg at home but NF here - CT Abd in ED unremarkable for etiology -- No acute abdominal or pelvic findings; Postsurgical changes of a prior partial sigmoid resection with left lower quadrant colostomy. 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 No evidence of acute diverticulitis; No evidence of acute appendicitis; Bilateral nephrolithiasis. No ureteral or bladder calculi identified - Zofran 4mg IV q6h - Abdominal pain and nausea resolved as of 10/20/20 -- will continue tx for UTI with IV abx as noted above Adrenocortical insufficiency - Continue with Pred 10mg PO qAM Stage III chronic kidney disease, stable - No signs of acute failure, creat in ED 1.03 - CMP qAM Chronic diastolic heart failure - C/w atorvastatin and Plavix - Use IV fluids with caution, received 1L NSS in ED Neuropathy - c/w home gabapentin Hyperlipidemia - c/w home statin Rheumatoid factor positive with cyclic citrullinated peptide (CCP) antibody negative - c/w home hydroxychloroquine Colostomy present - colostomy care Polyarthritis - c.w home oxycontin - c/w home duloxetine Hypothyroidism - c/w home synthroid Code: DNR/DNI DVT ppx: Heparin 7500 units TID FENGI: Heart healthy Dispo: Plan for d/c home with IV abx tomorrow (2) Abdominal pain: (3) Nausea: (4) Adrenocortical insufficiency: (5) Peripheral artery disease: (6) Ischemic ulcer: (7) Stage III chronic kidney disease: (8) Chronic diastolic heart failure: (9) Neuropathy: (10) Hyperlipidemia: (11) Rheumatoid factor positive with cyclic citrullinated peptide (CCP) antibody negative: (12) Colostomy present: (13) Constipation: (14) Polyarthritis: (15) Hypothyroidism: Admission and Anticipated Discharge Date Admission Date: October 18, 2020 Supervising Physician Co-Signing Physician Notes I personally examined the patient and verified all amaro points of history and exam, discussed case, and agree with decision making with Dr Mei. feeling good. has had home IV abx before vitals noted nad heent nc at mmm breathing unlabored no accessory muscles good effort skin no rashes no pallor or icterus complicated / MDR UTI - change to ertapenem, ask case management to set up for home. 7 days treatment constipation - improved weakness - has caregivers. PT/OT otherwise as above Subjective Patient seen and evaluated at bedside this morning. She states that she is overall doing well. She is tolerating her diet well without difficulty. Prior complaint of constipation/hard stool through colostomy has resolved and she reports normal brown stool output now. Does report some persistent dysuria but denies hematuria, abdominal pain, fever, chills, CP, or SOB. Review of Systems Constitutional: no fever and no chills Respiratory: no cough and no dyspnea Cardiovascular: no chest pain Gastrointestinal: no abdominal pain, no nausea, no vomiting and no cons tipation Physical Exam Physical Exam: GENERAL: No acute distress. Well developed and well nourished. Vital signs reviewed. EYES: EOMI. Anicteric sclerae. HENT: Moist mucous membranes. RESPIRATORY: Normal respiratory effort. Able to speak in full sentences without increased work of breathing. ABDOMEN: Soft, non-tender and non-distended. Colostomy in place with normal brown liquid stool output in bag. EXTREMITIES: No edema. Non-tender. SKIN: Warm, dry. PSYCHIATRIC: Cooperative. Appropriate mood and affect. Results & Data Results & Data ([facility]) Vital Signs (Past 12 Hours) Vital Signs Temp Pulse Resp BP BP Pulse Ox 10/20/20 15:18 36.7 C 95 H 16 134/68 97 10/20/20 10:38 91/45 L 10/20/20 07:57 89 10/20/20 07:56 128/71 10/20/20 06:32 36.5 C 89 16 163/74 H 97 Resident Activity Tracking Resident Involvement: Resident Care Provided Care Provided: Adult Hospital Medicine
[2020-10-20] MEDS ORDERED: POTASSIUM CHLORIDE CRTAB 20 MEQ TABCR PO ONE (16:45)
--- NOTE | 2020-10-20 18:54 | Billing Data ---
Date of Service October 20, 2020 Coding Level of Care Code 25016 Subseq Obs Care Lvl 3
[2020-10-20] MEDS: PRAZOSIN HCL 1 MG CAP PO SCH (20:07)
[2020-10-20] MEDS: FAMOTIDINE 40 MG TABLET PO SCH (20:07)
[2020-10-20] MEDS: QUEtiapine FUMARATE 200 MG TAB PO SCH (20:07)
[2020-10-20] MEDS: ERTAPENEM SODIUM 1,000 MG in SODIUM CHLORIDE 0.9% 50 ML IV SCH (20:14)
[2020-10-21] MEDS: LEVOTHYROXINE SODIUM 88 MCG TABLET PO SCH (06:23)
[2020-10-21] MEDS: HEPARIN SOD 5,000 UNIT/0.5 ML VIAL SQ SCH ×3 (06:23→20:59)
[2020-10-21 06:41] LABS: Albumin Level 2.5 gm/dl (3.4-5.0); Calcium 7.8 mg/dl (8.5-10.1); Creatinine Clr Calc Pharmacy 41.2 ml/min; Est GFR (African American) 65.7; Est GFR (Non-African American) 56.7; Potassium 3.4 mmol/L (3.5-5.1)
[2020-10-21 06:44] LABS: Albumin Globulin Ratio 0.9 (0.9-2); Bilirubin,Total 0.3 mg/dl (0.2-1); Globulin 2.9 gm/dl (2.5-4.0); Total Protein 5.4 gm/dl (6.4-8.2)
--- NOTE | 2020-10-21 08:00 | Discharge Summary ---
Date of Service October 21, 2020 Admission HPI Per Admitting Provider Sheridan Neal is a 89 y/o female with past medical hx of UTI with ESBL, chronic diastolic failure, stage III CKD, Chronic respiratory failure on O2 on admission, anemia of chronic disease, adrenocorticol deficiency, RA, colectomy with colostomy, chronic pain on oxycontin chronically, constipation, HLD, HTN, PAD, wound ulcers, who presented to [facility] for CC of Abdominal pain. She notes symptoms started about 3 days ago. She was having crampy abdominal pain located across lower abdomen that would wax and wan. She noted decreased stool output into colostomy and also that stool was hard. She notes that she has had nausea for the past 3 days without vomiting. She notes that oral intake made nausea worse. She notes she was still able to take all her oral medications at home. But, she notes she was dehydrated from poor oral intake. She also notes dysuria for the past 3 days as well. Denies any black/bloody BMs, chest pain, shortness of breath worse from baseline, fever, chills, diarrhea. Discharge Data Allergies Allergy/AdvReac Type Severity Reaction Status Date / Time nitrofurantoin Allergy Severe HIVES Verified 10/18/20 21:40 scallops Allergy Severe THROAT Verified 10/18/20 21:40 SWELLS Cipro Allergy Intermediate HIVES Verified 06/03/18 16:34 ciprofloxacin Allergy Intermediate HIVES Verified 10/18/20 21:40 latex Allergy Intermediate RASH Verified 10/18/20 21:40 Quinolones Allergy Intermediate HIVES Verified 10/18/20 21:40 fluticasone Allergy Unknown ADVAIR-UNKN Verified 10/18/20 21:40 OWN salmeterol Allergy Unknown ADVAIR Verified 10/18/20 21:40 shellfish derived Allergy SCALLOPS-THROAT Verified 10/18/20 21:40 SWELLS celecoxib AdvReac Intermediate barretts Verified 10/18/20 21:40 esophagus lactose AdvReac Intermediate GI UPSET Verified 10/01/20 14:55 milk AdvReac Intermediate LACTOSE Verified 10/01/20 14:55 INTOLERANT morphine AdvReac Intermediate NAUSEA AND Verified 10/01/20 14:55 VOMITING Consultations 10/18/20 21:25 ED Decision to Admit Stat Ordered Studies 10/18/20 17:42 CT abd pelvis wo con Stat Hospital Course (1) Acute UTI: Sheridan Neal is a 89 y/o female with past medical hx of UTI with ESBL, chronic diastolic failure, stage III CKD, Chronic respiratory failure on O2 on admission, anemia of chronic disease, adrenocorticol deficiency, RA, colectomy with colostomy, chronic pain on oxycontin chronically, constipation, HLD, HTN, PAD, wound ulcers, who presented to [facility] for CC of Abdominal pain. Acute UTI - Positive UA in ED, hx of ESBL positive UTIs - Was started on Rocephin in ED, but stopped once reviewed old EMR - In ED received, Dilaudid 0.25mg IV, Zofran 5mg IV, NS 500cc Bolus x 2, then on NSS @ 125mL - On admission, started on Unasyn per prior sensitivities. Fluoroquinolone allergy limiting abx treatment. - Follow urine culture for further clinical treatment based on ID and sensitivities. - As of 10/20/20, urine growing klebsiella ozaenae and alpha strep (not enterococcus) - Abx changed from Unasyn to Ertapenem. Ertapenem selected secondary to sensitivities and hx of allergies (allergies to cipro and quinolones). Will continue Ertapenem 1g IV for a total treatment of 7 days (with stop date of 10/26/20). Will plan for d/c home tomorrow with IV abx - CBC qAM Abdominal pain and Nausea - Suspect multifactorial related to constipation/hard stool, dehydration secondary to decreased PO intake, UTI, and constipation/hard stool secondary to chronic opioids at home. - On admission, home Miralax increased to BID - Encourage PO intake. - C/w home Oxycontin, Morphine 2mg IV for severe pain only as constipation is also contributed by opioid use. Consider Relastor for treatment. - Will treat by treating UTI, controlling nausea, increasing oral PO intake, increase water intake. - On Mirabegron 50mg at home but NF here - CT Abd in ED unremarkable for etiology -- No acute abdominal or pelvic findings; Postsurgical changes of a prior partial sigmoid resection with left lower quadrant colostomy. 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 No evidence of acute diverticulitis; No evidence of acute appendicitis; Bilateral nephrolithiasis. No ureteral or bladder calculi identified - Zofran 4mg IV q6h - Abdominal pain and nausea resolved as of 10/20/20 -- will continue tx for UTI with IV abx as noted above Adrenocortical insufficiency - Continue with Pred 10mg PO qAM Stage III chronic kidney disease, stable - No signs of acute failure, creat in ED 1.03 - CMP qAM Chronic diastolic heart failure - C/w atorvastatin and Plavix - Use IV fluids with caution, received 1L NSS in ED Neuropathy - c/w home gabapentin Hyperlipidemia - c/w home statin Rheumatoid factor positive with cyclic citrullinated peptide (CCP) antibody negative - c/w home hydroxychloroquine Colostomy present - colostomy care Polyarthritis - c.w home oxycontin - c/w home duloxetine Hypothyroidism - c/w home synthroid Code: DNR/DNI DVT ppx: Heparin 7500 units TID FENGI: Heart healthy Dispo: Plan for d/c home with IV abx tomorrow (2) Abdominal pain: (3) Nausea: (4) Adrenocortical insufficiency: (5) Peripheral artery disease: (6) Ischemic ulcer: (7) Stage III chronic kidney disease: (8) Chronic diastolic heart failure: (9) Neuropathy: (10) Hyperlipidemia: (11) Rheumatoid factor positive with cyclic citrullinated peptide (CCP) antibody negative: (12) Colostomy present: (13) Constipation: (14) Polyarthritis: (15) Hypothyroidism: Discharge Plan Discharge Items Reason For Visit: ABD PAIN Follow-up/Referrals: Nidhi Gardner MD [Primary Care Provider] - Medications and DC Order Prescriptions: No Action nitroglycerin 0.4 mg tablet, sublingual 0.4 mg SL Q5M PRN (Reason: chest pain) Qty: 1 RF: 0 cholecalciferol (vitamin D3) 2,000 unit capsule 2,000 units PO QAM RF: 0 prazosin 1 mg capsule 1 mg PO HS Qty: 30 RF: 5 fluticasone propionate [Flonase Allergy Relief] 50 mcg/actuation spray,suspension 2 spray INTRANASAL DAILY PRN (Reason: Congestion) Qty: 18.2 RF: 5 lidocaine 5 % adhesive patch,medicated 1 patch TOP DAILY PRN (Reason: Lumbar pain) Qty: 30 RF: 5 hydroxychloroquine 200 mg tablet 200 mg PO QAM Qty: 90 RF: 1 quetiapine 200 mg tablet 200 mg PO HS Qty: 90 RF: 1 levothyroxine [Synthroid] 88 mcg tablet 88 mcg PO QAM Qty: 90 RF: 1 duloxetine [Cymbalta] 60 mg capsule,delayed release(DR/EC) 60 mg PO QAM Qty: 90 RF: 1 duloxetine 30 mg capsule,delayed release(DR/EC) 30 mg PO QAM Qty: 90 RF: 1 famotidine 40 mg tablet 40 mg PO HS Qty: 90 RF: 1 midodrine 5 mg tablet 5 mg PO TID Qty: 90 RF: 5 atorvastatin 40 mg tablet 40 mg PO QAM Qty: 90 RF: 1 oxycodone 10 mg tablet 10 mg PO BID Qty: 60 RF: 0 Myrbetriq 50 mg tablet extended release 24 hr 50 mg PO DAILY Qty: 90 RF: 1 cyanocobalamin (vitamin B-12) [Vitamin B-12] 1,000 mcg Tablet 1,000 mcg PO QAM RF: 0 Ocuvite with Lutein 1,000 unit-200 mg-60 unit-2 mg Tablet 1 tab PO QAM RF: 0 gabapentin 300 mg capsule 300 mg PO TID RF: 0 vitamin B complex Tablet 1 tab PO QAM RF: 0 Azo Urinary Pain Relief 97.5 mg Tablet 97.5 mg PO TID PRN (Reason: .URINARY PAIN) RF: 0 clopidogrel [Plavix] 75 mg Tablet 75 mg PO QAM RF: 0 polyethylene glycol 3350 [Miralax] 17 gram powder in packet 17 gm PO QAM Qty: 1 RF: 0 Cora 60 mg Capsule 60 mg PO QAM RF: 0 ondansetron 8 mg tablet,disintegrating 8 mg PO Q6H PRN (Reason: Nausea) RF: 0 acetaminophen [Tylenol Extra Strength] 500 mg Tablet 1,000 mg PO PM PRN (Reason: Pain) RF: 0 prednisone 10 mg tablet 10 mg PO QAM RF: 0 Admission Data Admit Date/Time: 10/18/20 22:40 Attending Provider: Agnieszka Srinivasan Admit Provider: Ismael Garcia Primary Care Provider: Nidhi Gardner Other Providers: Iban Dunaway ; Francisco Javier Ramirez
[2020-10-21] MEDS: POTASSIUM CHLORIDE CRTAB 20 MEQ TABCR PO SCH ×2 (09:34→12:31)
[2020-10-21] MEDS: CLOPIDOGREL BISULFATE 75 MG TAB PO SCH (09:35)
[2020-10-21] MEDS: ATORVASTATIN 40 MG TAB PO SCH (09:35)
[2020-10-21] MEDS: MIDODRINE HCL 2.5 MG TAB PO SCH ×3 (09:35→19:38)
[2020-10-21] MEDS: DULoxetine HCL 30 MG CAP PO SCH (09:35)
[2020-10-21] MEDS: predniSONE 10 MG TABLET PO SCH (09:35)
[2020-10-21] MEDS: POLYETHYLENE (MIRALAX) 17 GM PACK PO SCH ×2 (09:36→20:59)
[2020-10-21] MEDS: GABAPENTIN 300 MG CAP PO SCH ×3 (09:36→20:39)
[2020-10-21] MEDS: HYDROXYCHLOROQUINE SULFATE 200 MG TAB PO SCH (09:36)
[2020-10-21] MEDS: DULoxetine HCL 60 MG CAP PO SCH (09:36)
[2020-10-21] MEDS: oxyCODONE HCL IR 5 MG TAB (IMMEDIATE RELEASE) PO SCH ×2 (09:44→20:39)
--- NOTE | 2020-10-21 16:18 | Hospitalist Progress Note ---
Date of Service October 21, 2020 Assessment & Plan (1) Acute UTI: Sheridan Neal is a 89 y/o female with past medical hx of UTI with ESBL, chronic diastolic failure, stage III CKD, Chronic respiratory failure on O2 on admission, anemia of chronic disease, adrenocorticol deficiency, RA, c olectomy with colostomy, chronic pain on oxycontin chronically, constipation, HLD, HTN, PAD, wound ulcers, who presented to [facility] for CC of Abdominal pain. Acute UTI - Positive UA in ED, hx of ESBL positive UTIs - Was started on Rocephin in ED, but stopped once reviewed old EMR - In ED received, Dilaudid 0.25mg IV, Zofran 5mg IV, NS 500cc Bolus x 2, then on NSS @ 125mL - On admission, started on Unasyn per prior sensitivities. Fluoroquinolone allergy limiting abx treatment. - Follow urine culture for further clinical treatment based on ID and sensitivities. - As of 10/20/20, urine growing klebsiella ozaenae and alpha strep (not enterococcus) - Abx changed from Unasyn to Ertapenem. Ertapenem selected secondary to sensitivities and hx of allergies (allergies to cipro and quinolones). Will continue Ertapenem 1g IV for a total treatment of 7 days (with stop date of 10/26/20). Will plan for d/c home tomorrow with IV abx - CBC qAM - 10/21/20: We attempted to discharge the patient on outpatient ertapenem, however were unable to have ultrasound guided catheter placed. Scheduled for tomorrow, spoke with case management home infusion service is double tomorrow. Patient will receive tomorrow's dose of antibiotics and then can be discharged home and scheduled to receive her first dose on Wednesday. Abdominal pain and Nausea - Suspect multifactorial related to constipation/hard stool, dehydration secondary to decreased PO intake, UTI, and constipation/hard stool secondary to chronic opioids at home. - On admission, home Miralax increased to BID - Encourage PO intake. - limit narcotic pain med use. C/w home Oxycontin. d/c Morphine 2mg IV. Consider Relastor for treatment. - Will treat by treating UTI, controlling nausea, increasing oral PO intake, increase water intake. - On Mirabegron 50mg at home but NF here - CT Abd in ED unremarkable for etiology - Abdominal pain and nausea resolved as of 10/20/20 -- will continue tx for UTI with IV abx as noted above Stage III chronic kidney disease, stable - No signs of acute failure, creat in ED 1.03 - CMP qAM Chronic diastolic heart failure - C/w atorvastatin and Plavix - Use IV fluids with caution, received 1L NSS in ED Neuropathy - c/w home gabapentin Hyperlipidemia - c/w home statin Polyarthritis - RF +/CCP Ab - - c/w home hydroxychloroquine, oxycontin and duloxetin. Adrenal insufficiency - Prednisone 10mgs qam. Colostomy present - colostomy care Hypothyroidism - c/w home synthroid Code: DNR/DNI DVT ppx: Heparin 7500 units TID FENGI: Heart healthy Dispo: Plan for d/c home with IV abx tomorrow (2) Abdominal pain: (3) Nausea: (4) Adrenocortical insufficiency: (5) Peripheral artery disease: (6) Ischemic ulcer: (7) Stage III chronic kidney disease: (8) Chronic diastolic heart failure: (9) Neuropathy: (10) Hyperlipidemia: (11) Rheumatoid factor positive with cyclic citrullinated peptide (CCP) antibody negative: (12) Colostomy present: (13) Constipation: (14) Polyarthritis: (15) Hypothyroidism: Admission and Anticipated Discharge Date Admission Date: October 18, 2020 Supervising Physician Co-Signing Physician Notes Resident Physician Supervision Note: I independently interviewed and examined the patient and verified the amaro history and physical, reviewed labs and image studies, discussed the case with the resident Dr. Dave and agree with the findings and care plan. Subjective Patient lying in bed this morning in no acute distress, plan was to discharge the patient today with home infusion. However was unable to have ultrasound- guided catheter placed. Spoke with case management, there is no availability for tomorrow, they are able to schedule first dose in home on Wednesday. Patient will remain hospitalized overnight, received her dose of ertapenem tomorrow and then will subsequently be discharged. Patient reports tolerating her diet, voiding and ostomy output improved, sleeping well. No acute complaints, all questions were answered. Physical Exam Physical Exam: General: No acute distress HEENT: Normocephalic atraumatic Neck:Normal visual inspection, trachea midline Cardiac: Regular rate and rhythm I did not appreciate significant murmurs rubs or gallops, normal S1, normal S2, negative calf tenderness, negative pedal edema Respiratory: Clear to auscultation bilaterally with symmetrical chest expansion I did not appreciate any significant wheezes, rales, rhonchi GI: Soft, nontender, nondistended MSK: Moves all extremities Neuro: Alert and oriented x4 Psych: Calm and cooperative Results & Data Results & Data ([facility]) Vital Signs (Past 12 Hours) Vital Signs Temp Pulse Resp BP Pulse Ox 10/21/20 15:32 36.9 C 16 139/60 94 10/21/20 15:11 36.8 C 95 H 16 147/73 H 100 10/21/20 07:01 36.9 C 16 144/71 H 93 Laboratory Results 10/21/20 Range/Units 05:58 Sodium 145 (136-145) mmol/L Potassium 3.4 L (3.5-5.1) mmol/L Chloride 111 H (98-107) mmol/L Carbon Dioxide 28 (21-32) mmol/L Anion Gap 6.0 (3-11) BUN 8 (7-18) mg/dl Creatinine 0.91 (0.6-1.2) mg/dl Est Cr Clr Drug Dosing 41.2 ml/min Est GFR ( Amer) 65.7 Est GFR (Non-Af Amer) 56.7 BUN/Creatinine Ratio 9.0 L (10-20) Glucose 85 (70-99) mg/dl Calcium 7.8 L (8.5-10.1) mg/dl Total Bilirubin 0.3 (0.2-1) mg/dl AST 13 L (15-37) U/L ALT 21 (12-78) U/L Alkaline Phosphatase 82 (45-117) U/L Total Protein 5.4 L (6.4-8.2) gm/dl Albumin 2.5 L (3.4-5.0) gm/dl Globulin 2.9 (2.5-4.0) gm/dl Albumin/Globulin Ratio 0.9 (0.9-2) Medications Administered Current Inpatient Medications Acetaminophen (Acetaminophen 325 Mg Tab) 650 mg PO Q4H PRN PRN Reason: Pain or Fever Stop: 11/18/20 00:26 Atorvastatin Calcium ([facility]vastatin 40 Mg Tab) [facility] [place]: 11/18/20 08:59 Last Admin: 10/21/20 09:35 Dose: 40 mg Documented by: Clopidogrel Bisulfate (Clopidogrel Bisulfate 75 Mg Tab) 75 [facility] [place] Stop: 11/18/20 08:59 Last Admin: 10/21/20 09:35 Dose: 75 mg Documented by: Duloxetine HCl (Duloxetine Hcl 30 Mg Cap) 30 [facility] [place] Stop: 11/18/20 08:59 Last Admin: 10/21/20 09:35 Dose: 30 mg Documented by: Duloxetine HCl (Duloxetine Hcl 60 Mg Cap) 60 [facility] [place] Stop: 11/18/20 08:59 Last Admin: 10/21/20 09:36 Dose: 60 mg Documented by: Famotidine (Famotidine 40 Mg Tablet) 40 mg PO HS [facility] Stop: 11/18/20 20:59 Last Admin: 10/20/20 20:07 Dose: 40 mg Documented by: Gabapentin (Gabapentin 300 Mg Cap) 300 mg PO TID [facility] Stop: 11/18/20 08:59 Last Admin: 10/21/20 14:04 Dose: 300 mg Documented by: Heparin Sodium (Porcine) (Heparin Sod 5,000 Unit/0.5 Ml Vial) 5,000 units SQ Q8 [facility] Stop: 11/18/20 05:59 Last Admin: 10/21/20 14:04 Dose: 5,000 units Documented by: Hydroxychloroquine Sulfate (Hydroxychloroquine Sulfate 200 Mg Tab) 200 [facility] [place] Stop: 11/18/20 08:59 Last Admin: 10/21/20 09:36 Dose: 200 mg Documented by: Ertapenem 1,000 mg/ Sodium (Chloride) 60 mls @ 100 mls/hr IV Q24H [facility]; Protocol Stop: 10/26/20 20:59 Last Infusion: 10/20/20 21:10 Dose: Infused Documented by: Levothyroxine Sodium (Levothyroxine Sodium 88 Mcg Tablet) [facility] Stop: 11/18/20 06:29 Last Admin: 10/21/20 06:23 Dose: 88 mcg Documented by: Midodrine (Midodrine Hcl 2.5 Mg Tab) 5 mg PO TID@0800,1300,1800 [facility] Stop: 11/18/20 07:59 Last Admin: 10/21/20 12:30 Dose: 5 mg Documented by: Morphine Sulfate (Morphine Sulfate 2 Mg/Ml Carp) 2 mg IV Q4H PRN PRN Reason: Severe Pain Stop: 11/02/20 00:26 Last Admin: 10/19/20 01:24 Dose: 2 mg Documented by: Nitroglycerin (Nitroglycerin Sl 0.4 Mg/Tab Tab) 0.4 mg SL Q5M PRN PRN Reason: chest pain Stop: 11/18/20 00:26 Ondansetron HCl (Ondansetron Inj 2 Mg/Ml 2 Ml Vial) 4 mg IV Q6H PRN PRN Reason: Nausea Stop: 11/18/20 00:26 Last Admin: 10/19/20 01:24 Dose: 4 mg Documented by: Oxycodone HCl (Oxycodone Hcl Ir 5 Mg Tab (Immediate Release)) 10 mg PO BID [facility] Stop: 11/02/20 08:59 Last Admin: 10/21/20 09:44 Dose: 10 mg Documented by: Polyethylene Glycol (Polyethylene (Miralax) 17 Gm Pack) 17 gm PO BID [facility] Stop: 11/18/20 08:59 Last Admin: 10/21/20 09:36 Dose: 17 gm Documented by: Prazosin HCl (Prazosin Hcl 1 Mg Cap) 1 mg PO [facility] Stop: 11/18/20 20:59 Last Admin: 10/20/20 20:07 Dose: 1 mg Documented by: Prednisone (Prednisone 10 Mg Tablet) 10 mg PO QAM [facility] Stop: 11/18/20 08:59 Last Admin: 10/21/20 09:35 Dose: 10 mg Documented by: Quetiapine Fumarate (Quetiapine Fumarate 200 Mg Tab) 200 mg PO [facility] Stop: 11/18/20 20:59 Last Admin: 10/20/20 20:07 Dose: 200 mg Documented by: Resident Activity Tracking Resident Involvement: Resident Care Provided Care Provided: Adult [facility] Medicine
[2020-10-21] MEDS: FAMOTIDINE 40 MG TABLET PO SCH (20:39)
[2020-10-21] MEDS: PRAZOSIN HCL 1 MG CAP PO SCH (20:39)
[2020-10-21] MEDS: ERTAPENEM SODIUM 1,000 MG in SODIUM CHLORIDE 0.9% 50 ML IV SCH (20:39)
[2020-10-21] MEDS: QUEtiapine FUMARATE 200 MG TAB PO SCH (20:39)
[2020-10-22] MEDS: HEPARIN SOD 5,000 UNIT/0.5 ML VIAL SQ SCH ×2 (06:30→14:42)
[2020-10-22] MEDS: LEVOTHYROXINE SODIUM 88 MCG TABLET PO SCH (06:30)
--- NOTE | 2020-10-22 07:32 | Hospitalist Progress Note ---
Date of Service October 22, 2020 Assessment & Plan (1) Acute UTI: Sheridan Neal is a 89 y/o female with past medical hx of ESBL klebsiella UTI, chronic diastolic failure, stage III CKD, Chronic respiratory failure on 3L home O2, SLE, anemia of chronic disease, adrenocorticol deficiency, RA, colectomy with colostomy, chronic pain on oxycontin chronically, constipation, HLD, HTN, PAD, wound ulcers, who presented to [facility] for CC of Abdominal pain. Acute UTI - Positive UA in ED, hx of ESBL positive UTIs - Was started on Rocephin in ED, but stopped once reviewed old EMR - In ED received, Dilaudid 0.25mg IV, Zofran 5mg IV, NS 500cc Bolus x 2, then on NSS @ 125mL - On admission, started on Unasyn per prior sensitivities. Fluoroquinolone allergy limiting abx treatment. - Follow urine culture for further clinical treatment based on ID and sensitivities. - As of 10/20/20, urine growing klebsiella ozaenae and alpha strep (not enterococcus) - Abx changed from Unasyn to Ertapenem. Ertapenem selected secondary to sensitivities and hx of allergies (allergies to cipro and quinolones). Will continue Ertapenem 1g IV for a total treatment of 7 days (with stop date of 10/26/20). Will plan for d/c home tomorrow with IV abx - CBC qAM - 10/21/20: We attempted to discharge the patient on outpatient ertapenem, however were unable to have ultrasound guided catheter placed. Scheduled for tomorrow, spoke with case management home infusion service is double tomorrow. Patient will receive tomorrow's dose of antibiotics and then can be discharged home and scheduled to receive her first dose on Wednesday. Abdominal pain and Nausea - Suspect multifactorial related to constipation/hard stool, dehydration secondary to decreased PO intake, UTI, and constipation/hard stool secondary to chronic opioids at home. - On admission, home Miralax increased to BID - Encourage PO intake. - limit narcotic pain med use. C/w home Oxycontin. d/c Morphine 2mg IV. Consider Relastor for treatment. - Will treat by treating UTI, controlling nausea, increasing oral PO intake, increase water intake. - On Mirabegron 50mg at home but NF here - CT Abd in ED unremarkable for etiology - Abdominal pain and nausea resolved as of 10/20/20 -- will continue tx for UTI with IV abx as noted above - 10/22/20 R flank ttp, patient states has had for over a year. Stage IIIa chronic kidney disease, stable - No signs of acute failure, creat in ED 1.03 - egfr 56.7 10/21/20 - 10/21/20 cmp: normal liver panel. hypoK 3.4. corrected Ca 9.0 Chronic diastolic heart failure - 12/15/18 echo. ef 60-65. no rwma. grade 1 diastolic dysfunction - C/w atorvastatin and Plavix - Use IV fluids with caution, received 1L NSS in ED Neuropathy - c/w home gabapentin Hyperlipidemia - c/w home statin Polyarthritis - RF +/CCP Ab - - c/w home hydroxychloroquine, oxycontin and duloxetine Adrenal insufficiency - Prednisone 10mgs qam. Colostomy present - colostomy care Hypothyroidism - c/w home synthroid Code: DNR/DNI DVT ppx: Heparin 7500 units TID FENGI: full liquid diet, will advance Dispo: Plan for d/c home with IV abx tomorrow (2) Abdominal pain: (3) Nausea: (4) Adrenocortical insufficiency: (5) Peripheral artery disease: (6) Ischemic ulcer: (7) Stage III chronic kidney disease: (8) Chronic diastolic heart failure: (9) Neuropathy: (10) Hyperlipidemia: (11) Rheumatoid factor positive with cyclic citrullinated peptide (CCP) antibody negative: (12) Colostomy present: (13) Constipation: (14) Polyarthritis: (15) Hypothyroidism: Admission and Anticipated Discharge Date Admission Date: October 21, 2020 Subjective Doing well. + liquidy stools, but denies other symptom complaints. No dysuria, cp, sob. on full liquid diet, requesting step up. 3L home O2. States has had flank tenderness for over a year now. No fever, chills, nausea/vomiting. Review of Systems Review of Systems: Constitutional: Denies fever, chills, weight change Eyes: Denies blurry vision, vision changes ENT: Denies sore throat, sinus pain Cardiovascular: Denies chest pain, palpitations Respiratory: Denies shortness of breath Gastrointestinal: Denies abdominal pain, nausea, vomiting, constipation, diarrhea Genitourinary: Denies urinary symptoms including dysuria Musculoskeletal: Denies weakness, muscle aches/pain, joint aches/pain Neurological: Denies headache, numbness, tingling, focal weakness Physical Exam Physical Exam: General: Grossly A&O. NAD. Cooperative. HEENT: Atraumatic, normocephalic. EOMI Pulm: CTAB. -wheezes, -rales, -rhonchi. No respiratory distress. Cardiac: RRR, -mrg. Radial pulses intact and symmetrical. No LE edema. Abdominal: R flank TTP, no CVA tenderness. Nondistended, soft. Results & Data Results & Data ([facility]) Vital Signs (Past 12 Hours) Vital Signs Temp Pulse Resp BP Pulse Ox 10/21/20 22:58 36.6 C 99 H 18 110/64 97 Laboratory Results 10/18/20 UC +klebsiella (R to cefalosporins, macrobid, bactrim. hx esbl klebsiella 08/01/20. on contact precautions Diagnostic Findings 10/18/20 ct abd/pelv w/o contrast. no acute findings. no acute appendicitis or diverticulitis but has pandiverticulosis. bilat nephrolithiasis w/o ureteral or bladder calculi Resident Activity Tracking Resident Involvement: Resident Care Provided Care Provided: Adult Hospital Medicine
[2020-10-22] MEDS: MIDODRINE HCL 2.5 MG TAB PO SCH ×3 (09:08→17:33)
[2020-10-22] MEDS: GABAPENTIN 300 MG CAP PO SCH ×2 (09:08→14:42)
[2020-10-22] MEDS: ATORVASTATIN 40 MG TAB PO SCH (09:09)
[2020-10-22] MEDS: HYDROXYCHLOROQUINE SULFATE 200 MG TAB PO SCH (09:09)
[2020-10-22] MEDS: predniSONE 10 MG TABLET PO SCH (09:09)
[2020-10-22] MEDS: POLYETHYLENE (MIRALAX) 17 GM PACK PO SCH (09:09)
[2020-10-22] MEDS: DULoxetine HCL 30 MG CAP PO SCH (09:09)
[2020-10-22] MEDS: DULoxetine HCL 60 MG CAP PO SCH (09:09)
[2020-10-22] MEDS: CLOPIDOGREL BISULFATE 75 MG TAB PO SCH (09:09)
[2020-10-22] MEDS: oxyCODONE HCL IR 5 MG TAB (IMMEDIATE RELEASE) PO SCH (09:15)
[2020-10-22] MEDS ORDERED: ERTAPENEM SODIUM 1,000 MG in SODIUM CHLORIDE 0.9% 50 ML IV SCH (18:00)
--- NOTE | 2020-10-22 18:47 | Discharge Summary ---
Date of Service October 22, 2020 Admission HPI Per Admitting Provider Chief Complaint: Abdominal Pain Primary Care Provider: Nidhi Gardner MD Sheridan Neal is a 89 y/o female with past medical hx of UTI with ESBL, chronic diastolic failure, stage III CKD, Chronic respiratory failure on O2 on admission, anemia of chronic disease, adrenocorticol deficiency, RA, colectomy with colostomy, chronic pain on oxycontin chronically, constipation, HLD, HTN, PAD, wound ulcers, who presented to [facility] for CC of Abdominal pain. She notes symptoms started about 3 days ago. She was having crampy abdominal pain located across lower abdomen that would wax and wan. She noted decreased stool output into colostomy and also that stool was hard. She notes that she has had nausea for the past 3 days without vomiting. She notes that oral intake made nausea worse. She notes she was still able to take all her oral medications at home. But, she notes she was dehydrated from poor oral intake. She also notes dysuria for the past 3 days as well. Denies any black/bloody BMs, chest pain, shortness of breath worse from baseline, fever, chills, diarrhea. Admission Exam Per Admitting Provider Constitutional: cooperative; no acute distress appears uncomfortable intermittently Eyes: PERRL, conjunctivae normal, anicteric sclerae ENMT: external ear and nose normal, oropharynx normal Neck: trachea midline, no thyromegaly Respiratory: normal respiratory effort; no respiratory distress Auscultation: no crackles and no wheezes Cardiovascular: Rate/Rhythm: regular rate and regular rhythm Gastrointestinal (Abdomen): Percussion/Palpation: + abdomen tender (RLQ mild); no guarding and abdomen not rigid colostomy to LLQ, possible stool ball felt RLQ Musculoskeletal: Head/Neck/Chest: normocephalic and head atraumatic Skin: warm and dry Neurologic: moves all extremities and awake Psychiatric: Orientation: alert and oriented x 3 Affect: + anxious affect Principal Diagnosis urinary tract infection Discharge Exam General: Grossly A&O. NAD. Cooperative. HEENT: Atraumatic, normocephalic. EOMI Pulm: CTAB. -wheezes, -rales, -rhonchi. No respiratory distress. Cardiac: RRR, -mrg. Radial pulses intact and symmetrical. No LE edema. Abdominal: R flank TTP, no CVA tenderness. Nondistended, soft. Discharge Data Allergies Allergy/AdvReac Type Severity Reaction Status Date / Time nitrofurantoin Allergy Severe HIVES Verified 10/18/20 21:40 scallops Allergy Severe THROAT Verified 10/18/20 21:40 SWELLS Cipro Allergy Intermediate HIVES Verified 06/03/18 16:34 ciprofloxacin Allergy Intermediate HIVES Verified 10/18/20 21:40 latex Allergy Intermediate RASH Verified 10/18/20 21:40 Quinolones Allergy Intermediate HIVES Verified 10/18/20 21:40 fluticasone Allergy Unknown ADVAIR-UNKN Verified 10/18/20 21:40 OWN salmeterol Allergy Unknown ADVAIR Verified 10/18/20 21:40 shellfish derived Allergy SCALLOPS-THROAT Verified 10/18/20 21:40 SWELLS celecoxib AdvReac Intermediate barretts Verified 10/18/20 21:40 esophagus lactose AdvReac Intermediate GI UPSET Verified 10/01/20 14:55 milk AdvReac Intermediate LACTOSE Verified 10/01/20 14:55 INTOLERANT morphine AdvReac Intermediate NAUSEA AND Verified 10/01/20 14:55 VOMITING Consultations 10/18/20 21:25 ED Decision to Admit Stat Ordered Studies 10/18/20 17:42 CT abd pelvis wo con Stat Hospital Course (1) Acute UTI: Sheridan Neal is an 89 y/o female w/ hx of ESBL klebsiella UTI, stage III CKD, Chronic respiratory failure on 3L home O2, SLE, anemia of chronic disease, adrenal insufficiency, RA, colectomy with colostomy, chronic pain on oxycontin chronically, constipation, HLD, HTN, PAD, wound ulcers, who presented to [facility] on 10/18/20 w/ abdominal pain. Patient was then found to have UTI and w/ hx of recurrent multi-drug resistant UTIs, was admitted for treatment. Her subjective abdominal pain improved greatly upon discharge. Abdominal pain and Nausea - Suspect multifactorial related to constipation/hard stool, dehydration secondary to decreased PO intake, UTI, and constipation/hard stool secondary to chronic opioids at home. - On admission, home Miralax increased to BID. limit narcotic pain med use. C/w home Oxycontin. d/c Morphine 2mg IV. Considered Relastor for treatment, but ultimately this was not used. - 10/18/20 ct abd/pelv w/o contrast. no acute findings. no acute appendicitis or diverticulitis but has pandiverticulosis. bilat nephrolithiasis w/o ureteral or bladder calculi - Abdominal pain and nausea resolved as of 10/20/20 - 10/22/20 R flank ttp, patient states that this is not new and she has had for over a year. subjectively, denied any abdominal pain Acute UTI - ESBL positive UTIs - Was started on Rocephin in ED, but stopped once reviewed old EMR - In ED received, Dilaudid 0.25mg IV, Zofran 5mg IV, NS 500cc Bolus x 2, then on NSS @ 125mL - On admission, started on Unasyn per prior sensitivities. Fluoroquinolone allergy limited abx treatment. - 10/18/20 UC +klebsiella and alpha strep (resistant to cephalosporins, macrobid, bactrim). hx esbl klebsiella 08/01/20. - Abx changed from Unasyn to Ertapenem. Ertapenem selected secondary to sensitivities and hx of allergies (allergies to cipro and quinolones). Will continue Ertapenem 1g IV for a total treatment of 7 days (with stop date of 10/26/20). Gave now dose 10/22/20 at 6pm prior to dispo home. Will resume daily IV Ertapenem at home w/ home health at ~3pm on 10/23/20. hypertension - mostly 140s systolic. a few elevations to 160s systolic w/ an outlier of 193 (after ambulation). patient takes milodrine 5 mg TID and has taken for over a year for orthostatic hypotension according to daughter - did not adjust home med list, to f/u BPs w/ PCP Stage IIIa chronic kidney disease, stable - No signs of acute failure, creat in ED 1.03 - egfr 56.7 10/21/20 Chronic diastolic heart failure - 12/15/18 echo. ef 60-65. no rwma. grade 1 diastolic dysfunction - C/w atorvastatin and Plavix - Use IV fluids with caution, received 1L NSS in ED Neuropathy - c/w home gabapentin Hyperlipidemia - c/w home statin Polyarthritis - RF +/CCP Ab - - c/w home hydroxychloroquine, oxycontin and duloxetine Adrenal insufficiency - Prednisone 10mg qam. Colostomy present - colostomy care Hypothyroidism - c/w home synthroid Code: DNR/DNI (2) Abdominal pain: (3) Nausea: (4) Adrenocortical insufficiency: (5) Peripheral artery disease: (6) Ischemic ulcer: (7) Stage III chronic kidney disease: (8) Chronic diastolic heart failure: (9) Neuropathy: (10) Hyperlipidemia: (11) Rheumatoid factor positive with cyclic citrullinated peptide (CCP) antibody negative: (12) Colostomy present: (13) Constipation: (14) Polyarthritis: (15) Hypothyroidism: (16) Hypertension: Total Time Total Time Spent Total Time Spent (In Minutes): Please see attending documentation. Discharge Plan Discharge Items Patient Disposition: Home - Home Health Services Reason For Visit: ABD PAIN Discharge Diagnosis: UTI Activity: Per Instructions section Non-emergency contact: Primary Care Provider Call non-emergency contact if: you have any medication questions, your symptoms worsen and your pain is unusual for you Follow-up/Referrals: Nidhi Gardner MD [Primary Care Provider] - Diet: Regular Addtl Attending Provider Instructions: Hi Ms. Neal, You were admitted to [facility] on 10/18/20 for abdominal pain. You had an elevated white blood cell count on blood work which can be elevated in infection or inflammation. CT scan showed diverticulosis which is outpouchings of your colon. However, it did not show diverticulosis, which is when these sacs get inflamed. There was no appendicitis. The scan showed bilateral kidney stones. Your urine sample was suggestive of infection, so we sent it for culture. The culture grew a different strain of bacteria than the one you had back in July. Because you had history of multidrug resistant UTI, we decided to treat you with heavier IV antibiotics. We chose a 7 day course of ertapenem, due to finish on 10/26/20. I gave you a dose of it just before discharging you today at 6pm 10/22/20. Please continue taking the IV ertapenem once a day (w/ assistance from home health), afternoon 3-4pm is fine. You had some elevated blood pressures during this admission. One of your home medications, milodrine, which is used to treat your orthostatic hypotension (you feel dizzi when suddenly sit up), can increase blood pressure. However, since you have been on it for a long time and have tolerated it, we recommend following up with your primary care doctor to make any jail adjustments. Currently, you are prescribed milodrine 3 times a day, but if your pressures are very high, you may hold the 3rd dose until you see your doctor. Please make an appointment to see your primary care doctor to be seen in approximately 1 week. Also, keep a home blood pressure log to bring with you to the appointment. Return precautions If you develop any new or worsening symptoms including fever, chills, sweats, chest pain, chest pressure, difficulty breathing, uncontrolled nausea/vomiting, rash, wheezing, passing out or nearly passing out, bleeding, black/bloody bowel movements, or other new or concerning symptoms please call your primary care physician, or call 911 for re-evaluation in the emergency department if you are very concerned. Pending Studies at Discharge: No Stand-Alone Forms: My [facility] [employer], Smoking Cessation Medications and DC Order Prescriptions: Continued nitroglycerin 0.4 mg tablet, sublingual 0.4 mg SL Q5M PRN (Reason: chest pain) Qty: 1 RF: 0 cholecalciferol (vitamin D3) 2,000 unit capsule 2,000 units PO QAM RF: 0 prazosin 1 mg capsule 1 mg PO HS Qty: 30 RF: 5 fluticasone propionate [Flonase Allergy Relief] 50 mcg/actuation spray,suspension 2 spray INTRANASAL DAILY PRN (Reason: Congestion) Qty: 18.2 RF: 5 lidocaine 5 % adhesive patch,medicated 1 patch TOP DAILY PRN (Reason: Lumbar pain) Qty: 30 RF: 5 hydroxychloroquine 200 mg tablet 200 mg PO QAM Qty: 90 RF: 1 quetiapine 200 mg tablet 200 mg PO HS Qty: 90 RF: 1 levothyroxine [Synthroid] 88 mcg tablet 88 mcg PO QAM Qty: 90 RF: 1 duloxetine [Cymbalta] 60 mg capsule,delayed release(DR/EC) 60 mg PO QAM Qty: 90 RF: 1 duloxetine 30 mg capsule,delayed release(DR/EC) 30 mg PO QAM Qty: 90 RF: 1 famotidine 40 mg tablet 40 mg PO HS Qty: 90 RF: 1 midodrine 5 mg tablet 5 mg PO TID Qty: 90 RF: 5 atorvastatin 40 mg tablet 40 mg PO QAM Qty: 90 RF: 1 oxycodone 10 mg tablet 10 mg PO BID Qty: 60 RF: 0 Myrbetriq 50 mg tablet extended release 24 hr 50 mg PO DAILY Qty: 90 RF: 1 cyanocobalamin (vitamin B-12) [Vitamin B-12] 1,000 mcg Tablet 1,000 mcg PO QAM RF: 0 Ocuvite with Lutein 1,000 unit-200 mg-60 unit-2 mg Tablet 1 tab PO QAM RF: 0 gabapentin 300 mg capsule 300 mg PO TID RF: 0 vitamin B complex Tablet 1 tab PO QAM RF: 0 Azo Urinary Pain Relief 97.5 mg Tablet 97.5 mg PO TID PRN (Reason: .URINARY PAIN) RF: 0 clopidogrel [Plavix] 75 mg Tablet 75 mg PO QAM RF: 0 polyethylene glycol 3350 [Miralax] 17 gram powder in packet 17 gm PO QAM Qty: 1 RF: 0 fexofenadine 60 mg Capsule 60 mg PO QAM RF: 0 ondansetron 8 mg tablet,disintegrating 8 mg PO Q6H PRN (Reason: Nausea) RF: 0 acetaminophen [Tylenol Extra Strength] 500 mg Tablet 1,000 mg PO PM PRN (Reason: Pain) RF: 0 prednisone 10 mg tablet 10 mg PO QAM RF: 0 Discharge Orders: Discharge Order (Routine); Ordered 10/22/20 Ordered By: Eben Hayden Admission Data Admit Date/Time: 10/21/20 16:32 Attending Provider: Agnieszka Srinivasan Admit Provider: Ismael Garcia Primary Care Provider: Nidhi Gardner Other Providers: Iban Dunaway ; Francisco Javier Ramirez Other Interventions: Discharge Summary Assessment (RN) Last Done: 10/22/20 19:00 Supervising Physician Co-Signing Physician Notes Resident Physician Supervision Note: I independently interviewed and examined the patient and verified the amaro history and physical, reviewed labs and image studies, discussed the case with the resident Dr. Hayden and agree with the findings and care plan. Resident Activity Tracking Resident Involvement: Resident Care Provided Care Provided: Adult Hospital Medicine
== END 2020-10-22 19:30 | disposition home health service (06) | DRG 690 ==
LOC: 3W 17:21 → ED 17:21 → SUATTDRO 22:40 → 3W 23:46

== ENCOUNTER 2021-05-01 13:34 | Inpatient (IN) ==
--- NOTE | 2021-05-01 14:13 | Emergency Department Note ---
Impression & Plan Acute UTI, COVID-19, Fever, Back pain ED Provider Note NAME: SAIRA MCGARRY AGE: 89 SEX: F : 1930 ARRIVES VIA: Ambulance INFORMANT: Patient, ED PROVIDER(S): Giancarlo Haas MD Chief Complaint: Occasional confusion, difficulty with ambulation HPI: Patient does present with [id number] at bedside. The patient reportedly has had some abdominal pain confusion and some difficulty with ambulation which has been worse over the last week. The patient reportedly had a fall on the was diagnosed with an L3 compression fracture. The patient is on chronic oxycodone but was up to 3 times daily. The patient does complain of some abdominal pain that she describes is diffuse and achy. The patient has had nausea but without vomiting. The patient has had low-grade temperatures in the high 90s. The patient does have a history of ESBL UTIs. The patient has had persistent back pain given the patient's recent fall. Patient has not had any obvious dysuria or difficulty with bowel movements. The patient denies any chest pain shortness of breath or cough. The patient does wear chronic oxygen at all times. Patient does have in-home health 8 to 9 hours/day. The patient's confusion has been intermittent and the [id number] states that recently and the patient was asking for her . ROS: See HPI for pertinent positives and negatives. A total of 10 systems were reviewed and otherwise negative. Past medical history: See below Surgical history: See below Social history: See below Physical Exam: GENERAL: Ill in appearance, nasal cannula in place. EYE EXAM: Normal conjunctiva. PERRL, no anisocoria and EOM's grossly intact w/o pain. NECK: Supple, no nuchal rigidity, no adenopathy, non-tender. No signs of meningismus. LUNGS: Clear to auscultation. Normal chest wall mechanics. HEART: NSR, no MRG. ABDOMEN: Abdomen soft, mild diffuse discomfort, ostomy in place. Normo-active bowel sounds, no masses, no rebound or guarding. BACK: No CVA TTP. SKIN: No rashes and no bruising. UPPER EXTREMITIES: Upper extremities are grossly normal. LOWER EXTREMITIES: Grossly normal, no edema. NEURO EXAM: A&O x3, cranial nerves II-XII grossly intact, normal speech, moves all 4 extremities on command w/o issue. Differential diagnoses: Infection, dehydration, metabolic abnormality, hypo/hyperglycemia, electrolyte disturbance, anemia, hypoxia, cardiac sources, intracerebral event, toxicologic, neurologic, as well as other pathologies. Course: Patient was seen and evaluated the bedside. Full history physical exam was performed. EKG interpreted by me Normal sinus rhythm, rate of 99, normal intervals, normal axis, T wave inversion in lead III. Imaging Studies: See below Cardiac monitoring: An order was placed for continuous cardiac monitoring. The monitor shows a rate of 91 with sinus rhythm. MDM: Patient was seen due to concern for intermittent confusion back pain and abdominal pain. Blood work was obtained along with CT abdomen pelvis. Patient was started on ertapenem empirically given the patient's fever. Covid swab also obtained. Ertapenem was ordered given the patient's prior history of ESBL. Patient is a white count of 11 with hemoglobin 9.6. Kidney function unremarkable. Urinalysis does show positive for infection. Chest x-ray with no obvious signs of pneumonia. The CT does show lumbar fracture which again is chronic given her recent fall and known history. Patient is Covid positive. Patient is on chronic oxygen. Given the patient's comorbidities fever and Covid status I did speak with the on-call hospitalist Dr. Hobbs and the patient was admitted to the medicine service. Past Med/Surg History Medical History Adrenocortical insufficiency Allergic rhinitis Arteriosclerosis of coronary artery Asthma Balance problem Barretts esophagus Chronic back pain Chronic cystitis Chronic respiratory failure with hypoxia CKD (chronic kidney disease), stage III does not follow with nephrology Clostridium difficile carrier Colovaginal fistula ? 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 Herpes simplex type 1 infection hx Hiatal hernia History of aspiration pneumonia last occurence 11/2019 History of pneumonia Hypercholesterolemia Hypothyroidism Impaired mobility and ADLs walker and wheelchair as needed Iron deficiency anemia Lactose intolerance director long term care (current) use of systemic steroids Long-term use of hydroxychloroquine Lumbar canal stenosis Major depressive disorder, recurrent 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 Nausea On home oxygen therapy 3 LPM cont Orthostatic hypotension Peripheral arterial disease Peripheral edema Peripheral neuropathy Polyarthritis Poor balance Pre-diabetes Presence of colostomy Rheumatoid arthritis Solitary pulmonary nodule Steroid-induced osteopenia TIA (transient ischemic attack) 2016 Urinary incontinence Urinary retention Surgical History H/O: hysterectomy HOLGER, BSO History of cardiac catheterization 2010 -- no stents/angioplasty -- [facility] - [facility] - dtr believes she follows w/ [facility] History of colon surgery sigmoid colon resection History of hip replacement bilateral 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 History of tooth extraction History of vascular surgery lower extremity unknown which leg- stents Hx of cholecystectomy Family History Grandmother (Maternal) Breast cancer Uterine cancer Father Cardiomyopathy Mother Alzheimer disease Son Colorectal cancer Daughter Breast cancer Other Cancer Diabetes Gallbladder disease Heart disease Hypertension No family history of adverse response to anesthesia Seizure Denies family history of Malignant hypothermia due to anesthesia Ovarian cancer Prostate cancer Crohn's disease Myocardial infarction Bleeding disorder Ulcerative colitis Social History Smoking Status: Unknown if ever smoked Second Hand Exposure: No; Hx Alcohol Use: No Hx Substance Use: No Preferred Language: Amharic Communication Ability: Effective Visual Impairment: No Limitations Hearing Ability: Hard of Hearing Manager Completions Required: No Beliefs That Will Affect Care: None marital status: / Current Living Situation: Alone Current Living Situation Comment: has caretakers during day current occupational status: retired How many Children do You have: 5 Feels Safe at Home: Yes Childhood Exposure to Second-Hand Smoke: Yes caffeine: Yes during the past year weight has: remained stable Dental Care, Regularly: Yes Physical Activity Frequency: Does not Exercise Seatbelt Use: always Sunscreen Use: Yes Do you think of yourself as: straight/heterosexual Assistive Devices: Denture - Upper, Denture - Lower, Glasses, Hearing Aid - Bilateral, Oxygen - Continuous, Walker and Wheelchair Allergies Allergies Allergy/AdvReac Type Severity Reaction Status Date / Time nitrofurantoin Allergy Severe HIVES Verified 05/01/21 16:01 scallops Allergy Severe THROAT Verified 05/01/21 16:01 SWELLS ciprofloxacin Allergy Intermediate HIVES Verified 05/01/21 16:01 latex Allergy Intermediate RASH Verified 05/01/21 16:01 Quinolones Allergy Intermediate HIVES Verified 05/01/21 16:01 fluticasone Allergy Unknown ADVAIR-UNKN Verified 05/01/21 16:01 OWN salmeterol Allergy Unknown ADVAIR Verified 05/01/21 16:01 shellfish derived Allergy SCALLOPS-THROAT Verified 05/01/21 16:01 SWELLS celecoxib AdvReac Intermediate barretts Verified 05/01/21 16:01 esophagus lactose AdvReac Intermediate GI UPSET Verified 05/01/21 16:01 milk AdvReac Intermediate LACTOSE Verified 05/01/21 16:01 INTOLERANT morphine AdvReac Intermediate NAUSEA AND Verified 05/01/21 16:01 VOMITING Home Meds Home Medications Medication Instructions Recorded Confirmed cholecalciferol (vitamin D3) 50 2,000 units PO QAM 07/07/18 05/01/21 mcg (2,000 unit) capsule cyanocobalamin (vitamin B-12) 1,000 mcg PO QAM 08/31/18 05/01/21 1,000 mcg tablet (Vitamin B-12) vit A 1,000 unit-C 200 mg-E 60 1 tab PO QAM 08/31/18 05/01/21 unit-lutein 2 mg and minerals tablet (Ocuvite with Lutein) gabapentin 300 mg capsule 300 mg PO TID 09/26/18 05/01/21 vitamin B complex 1 tab PO QAM 09/26/18 05/01/21 phenazopyridine 97.5 mg tablet 97.5 mg PO TID PRN 11/07/18 05/01/21 (Azo Urinary Pain Relief) acetaminophen 500 mg tablet 1,000 mg PO Q6H PRN 01/03/19 05/01/21 (Tylenol Extra Strength) fexofenadine 60 mg capsule 60 mg PO QAM 10/18/20 05/01/21 midodrine 5 mg tablet 5 mg PO QAM 02/17/21 05/01/21 calcitonin (salmon) 200 1 spray INTRANASAL QAM 05/01/21 05/01/21 unit/actuation nasal spray oxycodone 10 mg tablet 10 mg PO TID 05/01/21 05/01/21 Previous Rx's Medication Instructions Recorded nitroglycerin 0.4 mg sublingual 0.4 mg SL Q5M PRN #1 tab 07/07/18 tablet polyethylene glycol 3350 17 gram 17 gm PO QAM #1 ea 11/25/19 oral powder packet (Miralax) lidocaine 5 % topical patch 1 patch TOP DAILY PRN #30 ea 03/26/20 ondansetron 8 mg disintegrating 8 mg PO Q6H PRN #20 tab 11/28/20 tablet diclofenac sodium 1 % topical gel 4 g TOP QID PRN #300 gm MDD 16G to 02/13/21 (Voltaren) any one affected joint mirabegron 50 mg tablet,extended 50 mg PO DAILY #90 tab 03/24/21 release 24 hr (Myrbetriq) prednisone 10 mg tablet 10 mg PO QAM #90 tab 04/22/21 clopidogrel 75 mg tablet (Plavix) 75 mg PO QAM #90 tab 04/23/21 Synthroid 88 mcg tablet 88 mcg PO QAM #90 tab NS 04/24/21 (levothyroxine) atorvastatin 40 mg tablet 40 mg PO QDL #90 tab 04/24/21 duloxetine 30 mg capsule,delayed 30 mg PO QAM #90 cap 04/24/21 release duloxetine 60 mg capsule,delayed 60 mg PO QAM #90 cap 04/24/21 release (Cymbalta) famotidine 40 mg tablet 40 mg PO HS #90 tab 04/24/21 fluticasone propionate 50 2 spray INTRANASAL QAM PRN #15.8 ml 04/24/21 mcg/actuation nasal spray,suspension (Flonase Allergy Relief) hydroxychloroquine 200 mg tablet 200 mg PO QAM #90 tab 04/24/21 prazosin 1 mg capsule 1 mg PO HS #90 cap 04/24/21 quetiapine 200 mg tablet 200 mg PO HS #90 tab 04/24/21 dexlansoprazole 60 mg 60 mg PO QAM #90 cap 04/25/21 capsule,biphase delayed release (Dexilant) Results & Data (ED) Vital Signs Vital Signs - 24 hr 05/01/21 13:44 05/01/21 13:45 05/01/21 14:00 Temperature 38.5 C H Temperature Source Oral Pulse Rate 103 H 103 H 101 H Pulse Rate from SpO2 Sensor 105 H 101 H Pulse Rhythm Regular Pulse Strength Normal Respiratory Rate 19 17 13 Respiratory Effort / Characteristics Non-Labored Spontaneous Respiratory Depth Normal Respiratory Pattern Regular Blood Pressure 137/82 129/85 137/82 Blood Pressure Mean 100 99 100 Blood Pressure Position Lying Pulse Oximetry 97 95 97 Oxygen Delivery Method Nasal Cannula Oxygen Flow Rate 2 2 Sepsis Recent Fever Within 48 Hours Yes Sepsis New/Unexplained Change in Mental Status Yes Sepsis Action Taken by Nursing Physician Notified 05/01/21 14:30 05/01/21 14:46 05/01/21 15:00 Temperature Temperature Source Pulse Rate 99 H 101 H Pulse Rate from SpO2 Sensor 100 H 102 H Pulse Rhythm Pulse Strength Respiratory Rate 15 29 H Respiratory Effort / Characteristics Non-Labored Spontaneous Respiratory Depth Respiratory Pattern Blood Pressure 151/68 H 96/64 L Blood Pressure Mean 95 74 Blood Pressure Position Pulse Oximetry 98 98 97 Oxygen Delivery Method Nasal Cannula Oxygen Flow Rate 2 Sepsis Recent Fever Within 48 Hours Sepsis New/Unexplained Change in Mental Status Sepsis Action Taken by Nursing 05/01/21 15:05 05/01/21 15:07 05/01/21 15:16 Temperature Temperature Source Pulse Rate 98 H Pulse Rate from SpO2 Sensor 99 H Pulse Rhythm Pulse Strength Respiratory Rate 22 Respiratory Effort / Characteristics Non-Labored Respiratory Depth Respiratory Pattern Blood Pressure 143/73 H Blood Pressure Mean 96 Blood Pressure Position Pulse Oximetry 99 Oxygen Delivery Method Room Air Room Air Oxygen Flow Rate Sepsis Recent Fever Within 48 Hours Sepsis New/Unexplained Change in Mental Status Sepsis Action Taken by Nursing 05/01/21 15:30 05/01/21 16:08 05/01/21 16:10 Temperature Temperature Source Pulse Rate 99 H 92 H 91 H Pulse Rate from SpO2 Sensor 99 H 93 H 91 H Pulse Rhythm Pulse Strength Respiratory Rate 21 24 18 Respiratory Effort / Characteristics Respiratory Depth Respiratory Pattern Blood Pressure 144/60 H Blood Pressure Mean 88 Blood Pressure Position Pulse Oximetry 99 96 100 Oxygen Delivery Method Oxygen Flow Rate Sepsis Recent Fever Within 48 Hours Sepsis New/Unexplained Change in Mental Status Sepsis Action Taken by Nursing 05/01/21 16:20 05/01/21 16:30 05/01/21 17:01 Temperature Temperature Source Pulse Rate 93 H 93 H 93 H Pulse Rate from SpO2 Sensor 93 H 93 H Pulse Rhythm Pulse Strength Respiratory Rate 13 14 24 Respiratory Effort / Characteristics Respiratory Depth Respiratory Pattern Blood Pressure 105/91 Blood Pressure Mean 95 Blood Pressure Position Pulse Oximetry 100 100 Oxygen Delivery Method Oxygen Flow Rate Sepsis Recent Fever Within 48 Hours Sepsis New/Unexplained Change in Mental Status Sepsis Action Taken by Nursing 05/01/21 17:10 05/01/21 17:20 05/01/21 17:30 Temperature Temperature Source Pulse Rate 91 H 92 H 91 H Pulse Rate from SpO2 Sensor Pulse Rhythm Pulse Strength Respiratory Rate 12 18 12 Respiratory Effort / Characteristics Respiratory Depth Respiratory Pattern Blood Pressure Blood Pressure Mean Blood Pressure Position Pulse Oximetry Oxygen Delivery Method Oxygen Flow Rate Sepsis Recent Fever Within 48 Hours Sepsis New/Unexplained Change in Mental Status Sepsis Action Taken by Nursing 05/01/21 18:06 Temperature Temperature Source Pulse Rate Pulse Rate from SpO2 Sensor Pulse Rhythm Pulse Strength Respiratory Rate Respiratory Effort / Characteristics Non-Labored Respiratory Depth Respiratory Pattern Blood Pressure Blood Pressure Mean Blood Pressure Position Pulse Oximetry Oxygen Delivery Method Oxygen Flow Rate Sepsis Recent Fever Within 48 Hours Sepsis New/Unexplained Change in Mental Status Sepsis Action Taken by Usp Medications Current Medication List: was personally reviewed by me Laboratory Data Attestation: I reviewed the patient's lab results. Result diagrams: 05/01/21 14:19 05/01/21 14:19 Lab Results 05/01/21 05/01/21 05/01/21 Range/Units 14:19 14:19 14:19 WBC 11.30 H (4.8-10.8) K/uL RBC 3.64 L (4.2-5.4) M/uL Hgb 9.6 L (12.0-16.0) g/dL Hct 32.4 L (37-47) % MCV 89.0 (80-100) fL MCH 26.4 (25-34) pg MCHC 29.6 L (32-36) g/dL RDW Std Deviation 53.4 H (36.4-46.3) fL RDW Coeff of Omar 16.1 H (11.5-14.5) % Plt Count 227 (130-400) K/uL MPV 9.5 (7.4-10.4) fL Immature Gran % (Auto) 0.6 % Neut % (Auto) 78.4 % Lymph % (Auto) 7.1 % Dawes % (Auto) 10.4 % Eos % (Auto) 3.3 % Baso % (Auto) 0.2 % Neut # (Auto) 8.86 H (1.4-6.5) K/uL Lymph # (Auto) 0.80 L (1.2-3.4) K/uL Dawes # (Auto) 1.18 H (0.11-0.59) K/uL Eos # (Auto) 0.37 (0-0.5) K/uL Baso # (Auto) 0.02 (0-0.2) K/uL Immature Gran # (Auto) 0.07 H (0.00-0.02) K/uL PT 9.9 (9.0-12.0) Seconds INR 1.0 (0.9-1.1) APTT 29.6 (21.0-31.0) Seconds PTT Ratio 1.1 Sodium 138 (136-145) mmol/L Potassium 4.0 (3.5-5.1) mmol/L Chloride 103 (98-107) mmol/L Carbon Dioxide 31 (21-32) mmol/L Anion Gap 4.0 (3-11) BUN 16 (7-18) mg/dl Creatinine 0.95 (0.6-1.2) mg/dl Est Cr Clr Drug Dosing 42.3 ml/min Est GFR ( Amer) 62.0 ml/min Est GFR (Non-Af Amer) 53.5 ml/min BUN/Creatinine Ratio 16.8 (10-20) Glucose 112 H (70-99) mg/dl Lactate (0.4-2.0) mmol/L Calcium 8.9 (8.5-10.1) mg/dl Magnesium 2.1 (1.8-2.4) mg/dl Total Bilirubin 0.3 (0.2-1) mg/dl AST 21 (15-37) U/L ALT 27 (12-78) U/L Alkaline Phosphatase 111 (45-117) U/L Total Protein 6.4 (6.4-8.2) gm/dl Albumin 2.9 L (3.4-5.0) gm/dl Globulin 3.5 (2.5-4.0) gm/dl Albumin/Globulin Ratio 0.8 L (0.9-2) Urine Color Urine Appearance (Clear) Urine pH (4.5-7.5) Ur Specific Aguirre (1.000-1.030) Urine Protein (Negative) Urine Glucose (UA) (Negative) Urine Ketones (Negative) Urine Blood (Negative) Urine Nitrite (Negative) Urine Bilirubin (Negative) Urine Urobilinogen (Negative) Ur Leukocyte Esterase (Negative) Urine WBC (Auto) (0-5) /hpf Urine RBC (Auto) (0-4) /hpf U Hyaline Cast (Auto) (0-5) /lpf U Epithel Cells (Auto) (0-5) /lpf Urine Bacteria (Auto) (Negative) Urine Yeast COVID-19 Eval Order SARS-CoV-2 (PCR) (Negative) 05/01/21 05/01/21 05/01/21 Range/Units 14:19 14:46 14:46 WBC (4.8-10.8) K/uL RBC (4.2-5.4) M/uL Hgb (12.0-16.0) g/dL Hct (37-47) % MCV (80-100) fL MCH (25-34) pg MCHC (32-36) g/dL RDW Std Deviation (36.4-46.3) fL RDW Coeff of Moar (11.5-14.5) % Plt Count (130-400) K/uL MPV (7.4-10.4) fL Immature Gran % (Auto) % Neut % (Auto) % Lymph % (Auto) % Dawes % (Auto) % Eos % (Auto) % Baso % (Auto) % Neut # (Auto) (1.4-6.5) K/uL Lymph # (Auto) (1.2-3.4) K/uL Dawes # (Auto) (0.11-0.59) K/uL Eos # (Auto) (0-0.5) K/uL Baso # (Auto) (0-0.2) K/uL Immature Gran # (Auto) (0.00-0.02) K/uL PT (9.0-12.0) Seconds INR (0.9-1.1) APTT (21.0-31.0) Seconds PTT Ratio Sodium (136-145) mmol/L Potassium (3.5-5.1) mmol/L Chloride (98-107) mmol/L Carbon Dioxide (21-32) mmol/L Anion Gap (3-11) BUN (7-18) mg/dl Creatinine (0.6-1.2) mg/dl Est Cr Clr Drug Dosing ml/min Est GFR ( Amer) ml/min Est GFR (Non-Af Amer) ml/min BUN/Creatinine Ratio (10-20) Glucose (70-99) mg/dl Lactate 1.4 (0.4-2.0) mmol/L Calcium (8.5-10.1) mg/dl Magnesium (1.8-2.4) mg/dl Total Bilirubin (0.2-1) mg/dl AST (15-37) U/L ALT (12-78) U/L Alkaline Phosphatase (45-117) U/L Total Protein (6.4-8.2) gm/dl Albumin (3.4-5.0) gm/dl Globulin (2.5-4.0) gm/dl Albumin/Globulin Ratio (0.9-2) Urine Color Urine Appearance (Clear) Urine pH (4.5-7.5) Ur Specific Aguirre (1.000-1.030) Urine Protein (Negative) Urine Glucose (UA) (Negative) Urine Ketones (Negative) Urine Blood (Negative) Urine Nitrite (Negative) Urine Bilirubin (Negative) Urine Urobilinogen (Negative) Ur Leukocyte Esterase (Negative) Urine WBC (Auto) (0-5) /hpf Urine RBC (Auto) (0-4) /hpf U Hyaline Cast (Auto) (0-5) /lpf U Epithel Cells (Auto) (0-5) /lpf Urine Bacteria (Auto) (Negative) Urine Yeast COVID-19 Eval Order Covid19 at [facility] [place] SARS-CoV-2 (PCR) POSITIVE A* (Negative) 05/01/21 Range/Units 15:54 WBC (4.8-10.8) K/uL RBC (4.2-5.4) M/uL Hgb (12.0-16.0) g/dL Hct (37-47) % MCV (80-100) fL MCH (25-34) pg MCHC (32-36) g/dL RDW Std Deviation (36.4-46.3) fL RDW Coeff of Omar (11.5-14.5) % Plt Count (130-400) K/uL MPV (7.4-10.4) fL Immature Gran % (Auto) % Neut % (Auto) % Lymph % (Auto) % Dawes % (Auto) % Eos % (Auto) % Baso % (Auto) % Neut # (Auto) (1.4-6.5) K/uL Lymph # (Auto) (1.2-3.4) K/uL Dawes # (Auto) (0.11-0.59) K/uL Eos # (Auto) (0-0.5) K/uL Baso # (Auto) (0-0.2) K/uL Immature Gran # (Auto) (0.00-0.02) K/uL PT (9.0-12.0) Seconds INR (0.9-1.1) APTT (21.0-31.0) Seconds PTT Ratio Sodium (136-145) mmol/L Potassium (3.5-5.1) mmol/L Chloride (98-107) mmol/L Carbon Dioxide (21-32) mmol/L Anion Gap (3-11) BUN (7-18) mg/dl Creatinine (0.6-1.2) mg/dl Est Cr Clr Drug Dosing ml/min Est GFR ( Amer) ml/min Est GFR (Non-Af Amer) ml/min BUN/Creatinine Ratio (10-20) Glucose (70-99) mg/dl Lactate (0.4-2.0) mmol/L Calcium (8.5-10.1) mg/dl Magnesium (1.8-2.4) mg/dl Total Bilirubin (0.2-1) mg/dl AST (15-37) U/L ALT (12-78) U/L Alkaline Phosphatase (45-117) U/L Total Protein (6.4-8.2) gm/dl Albumin (3.4-5.0) gm/dl Globulin (2.5-4.0) gm/dl Albumin/Globulin Ratio (0.9-2) Urine Color Yellow Urine Appearance Cloudy A (Clear) Urine pH 5.5 (4.5-7.5) Ur Specific Aguirre 1.016 (1.000-1.030) Urine Protein Negative (Negative) Urine Glucose (UA) Negative (Negative) Urine Ketones Negative (Negative) Urine Blood Negative (Negative) Urine Nitrite Positive A (Negative) Urine Bilirubin Negative (Negative) Urine Urobilinogen Negative (Negative) Ur Leukocyte Esterase Negative (Negative) Urine WBC (Auto) 5-10 H (0-5) /hpf Urine RBC (Auto) 0-4 (0-4) /hpf U Hyaline Cast (Auto) 1-5 (0-5) /lpf U Epithel Cells (Auto) 10-20 H (0-5) /lpf Urine Bacteria (Auto) 4+ H (Negative) Urine Yeast Not Reportable COVID-19 Eval Order SARS-CoV-2 (PCR) (Negative) Administered Medications Discontinued Medications Ertapenem 1,000 mg/ Sodium (Chloride) 60 mls @ 100 mls/hr IV NOW ONE Stop: 05/01/21 15:05 Last Infusion: 05/01/21 15:58 Dose: 0 mls/hr Documented by: [id number] Admin: 05/01/21 15:14 Dose: 100 mls/hr Documented by: [id number] Sodium Chloride (Nss 1000ml) 1,000 mls @ 999 mls/hr IV .Q1H1M MEE Stop: 05/01/21 15:30 Last Infusion: 05/01/21 16:21 Dose: 0 mls/hr Documented by: [id number] Admin: 05/01/21 15:14 Dose: 999 mls/hr Documented by: [id number] Ioversol (Optiray 320 100ml) 93 ml IV ONCE ONE Stop: 05/01/21 16:01 Last Admin: 05/01/21 16:00 Dose: 93 ml Documented by: [id number] Imaging Data Radiologist's Impression: Abdomen/Pelvis CT 05/01/21 14:27 CT SCAN OF THE ABDOMEN AND PELVIS WITH IV CONTRAST CLINICAL HISTORY: Fall. Generalized abdominal pain. Back pain. COMPARISON STUDY: Abdominal CT dated 10/18/2020. TECHNIQUE: Following the IV administration of 93 cc of Optiray 320, CT scan of the abdomen and pelvis is performed from the lung bases to the proximal femora. Images are reviewed in the axial, sagittal, and coronal planes. IV contrast was administered without complication. A dose lowering technique was utilized adhering to the principles of ALARA. CT DOSE: 1051.97 mGy.cm FINDINGS: Lung bases: The heart is normal in size and without pericardial effusion. The coronary arteries and mitral annulus are calcified. The lung bases are clear noting dependent atelectasis. There is a tiny hiatal hernia. Liver: The contrast-enhanced liver is normal in size, contour, and attenuation. There is mild central intrahepatic biliary ductal dilatation. The hepatic veins and portal veins are patent. Gallbladder: Surgically absent noting clips in the gallbladder fossa. Spleen: Normal in size and attenuation. Pancreas: Atrophic and grossly unremarkable. Adrenal glands: Unremarkable. Kidneys: The contrast enhanced kidneys demonstrate cortical atrophy and are without hydronephrosis. The kidneys enhance symmetrically. There are numerous small bilateral nonobstructing renal calculi which measure up to 5 mm. No ureteral stone is seen. Abdominal vasculature: The abdominal aorta is normal in course and caliber noting advanced atherosclerotic calcification. 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 There is a fat-containing parastomal hernia. No bowel obstruction is identified. There is mild to moderate diverticulosis of the remaining colon without CT evidence of acute diverticulitis. The appendix is well-visualized and normal. Peritoneum: There is no intraperitoneal free air or abdominal ascites. Lymphadenopathy: None. Pelvic viscera: Evaluation of the pelvis is degraded by streak artifact from bilateral hip arthroplasties. The bladder is decompressed and not well evaluated. The uterus is surgically absent. No adnexal lesion is seen. Skeletal structures: The skeletal structures are osteopenic. There is an acute to subacute appearing superior endplate compression fracture of L3. There is no significant retropulsion of fragments. Mild lumbosacral spondylosis is noted. No lytic or blastic lesions are seen. Bilateral hip arthroplasties are in place. There are chronic/healed right pubic ring fractures. IMPRESSION: 1. There is an acute to subacute appearing superior endplate compression fracture of L3 with minimal loss of height. No retropulsion of fragments is identified. 2. No acute infectious or inflammatory findings are identified in the abdomen or pelvis. 3. Left lower quadrant colostomy. No bowel obstruction is seen. 4. Bilateral nephrolithiasis. 5. Additional findings as above. ACT 112: Negative or not required by law. Electronically signed by: Bennett Huertas M.D. 05/01/2021 4:20 PM Chest X-Ray 05/01/21 14:27 XR chest 1V portable CLINICAL HISTORY: SEPSIS COMPARISON STUDY: 01/10/2021 FINDINGS: The heart is mildly enlarged with aortic tortuosity/ectasia. Und erlying chronic lung disease is suspected. There is mild elevation of the interstitium. This could be secondary to mild pulmonary vascular congestion or an infectious/inflammatory process. Clinical and radiographic follow-up is recommended.[ IMPRESSION: 1. Cardiomegaly and mild elevation of interstitium. This could be secondary to mild pulmonary vascular congestion or an infectious/inflammatory process. Clinical and radiographic follow-up is recommended ACT 112: Negative or not required by law. Electronically signed by: Fredy Boyd M.D. 05/01/2021 3:07 PM Discharge Plan Visit Data Chief Complaint: Altered Mental Status ED Provider: Giancarlo Haas Discharge Problem: Acute UTI, COVID-19, Fever, Back pain Forms Stand Alone Forms: [facility] Prescriptions Prescriptions: No Action nitroglycerin 0.4 mg tablet, sublingual 0.4 mg SL Q5M PRN (Reason: chest pain) Qty: 1 RF: 0 cholecalciferol (vitamin D3) 2,000 unit capsule 2,000 units PO QAM RF: 0 lidocaine 5 % adhesive patch,medicated 1 patch TOP DAILY PRN (Reason: Lumbar pain) Qty: 30 RF: 5 ondansetron 8 mg tablet,disintegrating 8 mg PO Q6H PRN (Reason: Nausea) Qty: 20 RF: 0 diclofenac sodium [Voltaren] 1 % gel 4 g TOP QID MDD 16G to any one affected joint PRN (Reason: Pain) Qty: 300 RF: 3 Myrbetriq 50 mg tablet extended release 24 hr 50 mg PO DAILY Qty: 90 RF: 1 prednisone 10 mg tablet 10 mg PO QAM Qty: 90 RF: 1 clopidogrel [Plavix] 75 mg tablet 75 mg PO QAM Qty: 90 RF: 3 atorvastatin 40 mg tablet 40 mg PO QDL Qty: 90 RF: 1 duloxetine 30 mg capsule,delayed release(DR/EC) 30 mg PO QAM Qty: 90 RF: 1 duloxetine [Cymbalta] 60 mg capsule,delayed release(DR/EC) 60 mg PO QAM Qty: 90 RF: 1 famotidine 40 mg tablet 40 mg PO HS Qty: 90 RF: 1 fluticasone propionate [Flonase Allergy Relief] 50 mcg/actuation spray,suspension 2 spray INTRANASAL QAM PRN (Reason: Congestion) Qty: 15.8 RF: 3 hydroxychloroquine 200 mg tablet 200 mg PO QAM Qty: 90 RF: 1 prazosin 1 mg capsule 1 mg PO HS Qty: 90 RF: 1 quetiapine 200 mg tablet 200 mg PO HS Qty: 90 RF: 1 levothyroxine [Synthroid] 88 mcg tablet 88 mcg PO QAM Qty: 90 RF: 1 Dexilant 60 mg capsule,biphase delayed releas 60 mg PO QAM Qty: 90 RF: 1 cyanocobalamin (vitamin B-12) [Vitamin B-12] 1,000 mcg Tablet 1,000 mcg PO QAM RF: 0 Ocuvite with Lutein 1,000 unit-200 mg-60 unit-2 mg Tablet 1 tab PO QAM RF: 0 gabapentin 300 mg capsule 300 mg PO TID RF: 0 vitamin B complex Tablet 1 tab PO QAM RF: 0 Azo Urinary Pain Relief 97.5 mg Tablet 97.5 mg PO TID PRN (Reason: URINARY PAIN) RF: 0 polyethylene glycol 3350 [Miralax] 17 gram powder in packet 17 gm PO QAM Qty: 1 RF: 0 fexofenadine 60 mg Capsule 60 mg PO QAM RF: 0 acetaminophen [Tylenol Extra Strength] 500 mg Tablet 1,000 mg PO Q6H PRN (Reason: Pain) RF: 0 midodrine 5 mg tablet 5 mg PO QAM RF: 0 calcitonin (salmon) 200 unit/actuation spray,non-aerosol 1 spray intranasal QAM RF: 0 oxycodone 10 mg tablet 10 mg PO TID RF: 0 Referrals Referrals: Nidhi Gardner MD [Primary Care Provider] -
[2021-05-01] MEDS ORDERED: ERTAPENEM SODIUM 1,000 MG in SODIUM CHLORIDE 0.9% 50 ML IV ONE (14:30)
[2021-05-01] MEDS ORDERED: SODIUM CHLORIDE 0.9% 1000ML 1,000 ML IV SCH (14:30)
[2021-05-01 14:35] LABS: Basophils # (auto) 0.02 K/uL (0-0.2); Basophils % (auto) 0.2 %; Eosinophils # (auto) 0.37 K/uL (0-0.5); Eosinophils % (auto) 3.3 %; Hematocrit (blood only) 32.4 % (37-47); Hemoglobin 9.6 g/dL (12.0-16.0); Immature Granulocytes # (auto) 0.07 K/uL (0.00-0.02); Immature Granulocytes % (auto) 0.6 %; Lymphocytes % (auto) 7.1 %; Mean Corpuscular Hemoglobin 26.4 pg (25-34); Mean Corpuscular Hgb Conc 29.6 g/dL (32-36); Mean Platelet Volume 9.5 fL (7.4-10.4); Monocytes # (auto) 1.18 K/uL (0.11-0.59); Monocytes % (auto) 10.4 %; Neutrophils # (auto) 8.86 K/uL (1.4-6.5); Neutrophils % (auto) 78.4 %; Platelet Count 227 K/uL (130-400); RDW Coefficient of Variation 16.1 % (11.5-14.5); RDW Standard Deviation 53.4 fL (36.4-46.3); Red Blood Count 3.64 M/uL (4.2-5.4)
[2021-05-01 14:48] LABS: Partial Thromboplastin Ratio 1.1; Partial Thromboplastin Time 29.6 Seconds (21.0-31.0); Prothrombin Time 9.9 Seconds (9.0-12.0)
[2021-05-01 14:54] LABS: Albumin Level 2.9 gm/dl (3.4-5.0); BUN Creatinine Ratio 16.8 (10-20); Calcium 8.9 mg/dl (8.5-10.1); Creatinine Clr Calc Pharmacy 42.3 ml/min; Est GFR (Non-African American) 53.5 ml/min; Magnesium 2.1 mg/dl (1.8-2.4)
[2021-05-01 14:56] LABS: Albumin Globulin Ratio 0.8 (0.9-2); Bilirubin,Total 0.3 mg/dl (0.2-1); Globulin 3.5 gm/dl (2.5-4.0); Total Protein 6.4 gm/dl (6.4-8.2)
--- NOTE | 2021-05-01 15:08 | XRay Report ---
XR chest 1V portable CLINICAL HISTORY: SEPSIS COMPARISON STUDY: 01/10/2021 FINDINGS: The heart is mildly enlarged with aortic tortuosity/ectasia. Underlying chronic lung diseas e is suspected. There is mild elevation of the interstitium. This could be secondary to mild pulmonar y vascular congestion or an infectious/inflammatory process. Clinical and radiographic follow-up is r ecommended.[ IMPRESSION: 1. Cardiomegaly and mild elevation of interstitium. This could be secondary to mild pulmonary vascula r congestion or an infectious/inflammatory process. Clinical and radiographic follow-up is recommende d ACT 112: Negative or not required by law. Electronically signed by: Fredy Boyd M.D. 05/01/2021 3:07 PM
--- NOTE | 2021-05-01 15:18 | Electrocardiogram Report ---
Test Reason : Blood Pressure : / mmHG Vent. Rate : 099 BPM Atrial Rate : 099 BPM P-R Int : 126 ms QRS Dur : 116 ms QT Int : 364 ms P-R-T Axes : 023 063 010 degrees QTc Int : 467 ms Poor data quality, interpretation may be adversely affected Normal sinus rhythm Low voltage QRS Incomplete right bundle branch block Borderline ECG When compared with ECG of 18-OCT-2020 17:36, No significant change was found Confirmed by Harish Schrader ([id number]) on 05/01/2021 3:18:25 PM Referred By: REFERRED SELF Confirmed By:Harish Schrader
[2021-05-01] MEDS ORDERED: OPTIRAY 320 100ml IV ONE (16:00)
[2021-05-01 16:06] LABS: Appearance Urine Cloudy (Clear); Bacteria Urine Automated 4+ (Negative); Bilirubin Urine Negative (Negative); Blood Urine Negative (Negative); Color Urine Yellow; Glucose Urine UA Negative (Negative); Ketones Urine Negative (Negative); Leukocyte Esterase Urine Negative (Negative); Nitrite Urine Positive (Negative); Protein Urine Negative (Negative); RBC Urine Automated 0-4 /hpf (0-4); Specific Gravity Urine 1.016 (1.000-1.030); Urobilinogen Urine Negative (Negative); pH Urine 5.5 (4.5-7.5)
[2021-05-01] MEDS ORDERED: ACETAMINOPHEN 1,000 MG/100 ML VIAL IV STA (16:19)
--- NOTE | 2021-05-01 16:21 | CT Scan Report ---
CT SCAN OF THE ABDOMEN AND PELVIS WITH IV CONTRAST CLINICAL HISTORY: Fall. Generalized abdominal pain. Back pain. COMPARISON STUDY: Abdominal CT dated 10/18/2020. TECHNIQUE: Following the IV administration of 93 cc of Optiray 320, CT scan of the abdomen and pelvi s is performed from the lung bases to the proximal femora. Images are reviewed in the axial, sagittal , and coronal planes. IV contrast was administered without complication. A dose lowering technique wa s utilized adhering to the principles of ALARA. CT DOSE: 1051.97 mGy.cm FINDINGS: Lung bases: The heart is normal in size and without pericardial effusion. The coronary arteries and m itral annulus are calcified. The lung bases are clear noting dependent atelectasis. There is a tiny h iatal hernia. Liver: The contrast-enhanced liver is normal in size, contour, and attenuation. There is mild central intrahepatic biliary ductal dilatation. The hepatic veins and portal veins are patent. Gallbladder: Surgically absent noting clips in the gallbladder fossa. Spleen: Normal in size and attenuation. Pancreas: Atrophic and grossly unremarkable. Adrenal glands: Unremarkable. Kidneys: The contrast enhanced kidneys demonstrate cortical atrophy and are without hydronephrosis. T he kidneys enhance symmetrically. There are numerous small bilateral nonobstructing renal calculi whi ch measure up to 5 mm. No ureteral stone is seen. Abdominal vasculature: The abdominal aorta is normal in course and caliber noting advanced atheroscle rotic calcification. 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 There is a fat-containing parastomal hernia. No bowel obstruction is wil ntified. There is mild to moderate diverticulosis of the remaining colon without CT evidence of acute diverticulitis. The appendix is well-visualized and normal. Peritoneum: There is no intraperitoneal free air or abdominal ascites. Lymphadenopathy: None. Pelvic viscera: Evaluation of the pelvis is degraded by streak artifact from bilateral hip arthroplas ties. The bladder is decompressed and not well evaluated. The uterus is surgically absent. No adnexal lesion is seen. Skeletal structures: The skeletal structures are osteopenic. There is an acute to subacute appearing superior endplate compression fracture of L3. There is no significant retropulsion of fragments. Mild lumbosacral spondylosis is noted. No lytic or blastic lesions are seen. Bilateral hip arthroplasties are in place. There are chronic/healed right pubic ring fractures. IMPRESSION: 1. There is an acute to subacute appearing superior endplate compression fracture of L3 with minimal loss of height. No retropulsion of fragments is identified. 2. No acute infectious or inflammatory findings are identified in the abdomen or pelvis. 3. Left lower quadrant colostomy. No bowel obstruction is seen. 4. Bilateral nephrolithiasis. 5. Additional findings as above. ACT 112: Negative or not required by law. Electronically signed by: Bennett Huertas M.D. 05/01/2021 4:20 PM
[2021-05-01] MEDS ORDERED: dexAMETHasone 6 MG in SYRINGE 0 ML IV SCH (18:00)
[2021-05-01] MEDS ORDERED: REMDESIVIR 200 MG in SODIUM CHLORIDE 0.9% 210 ML IV ONE (18:00)
--- NOTE | 2021-05-01 18:09 | History & Physical Report ---
Date of Service May 01, 2021 Assessment & Plan (1) Chronic respiratory failure with hypoxia: Plan: 89 y/o F with an extensive medical Hx including HTN, HLD, hypothyroidism, anemia, adrenal insufficiency, RA, chronic hypoxia, CAD, diastolic CHF, recurrent ESBL UTI. Presents with weakness, fevers, SOB and abdominal discomfort. The pt reported recent COVID. She denies a productive cough. She uses 2-3 liters 02 continuous at home which has not changed. She was febrile on arrival to the ER. She tested + for COVID and her UA was + as well. Labs were otherwise reflective of her baseline. A CT abdomen demonstrated an L3 fracture which is subacute and coincides with her back pain and a fall she suffered on week ago. 1) COVID - pt is placed on Dex/Remdesivir, 02 protocol - isolation. 2) UTI - prior ESBL infection - Ertapenem started per recent [facility]. 3) Adrenal insufficiency - she takes steroids and midodrine. Currently taking 10mg prednisone daily. We should take caution when stopping Dex therefore. 4) CAD - no evidence of ACS - cont statin, Plavix. 5) RA - Dex has been provided in place of prednisone and we have held hydrochloroquine for now. 6) Anemia is at baseline 7) CHF - does not take diuretics - watch volume status as we will provide IVF. 8) Chronic hypoxic resp failure - 02 demands have not increased. 9) Abdominal discomfort - no evidence of acute process on CT. C diff is listed in the chart so that we will start PO Vanc with her antibiotics. Lovenox prophylaxis Total time for this admit including review of labs, meds, imaging, records - discussion with pt and ER attending - 53 min (2) COVID: (3) UTI (urinary tract infection): (4) Chronic diastolic heart failure: (5) Rheumatoid arthritis: Plan: 89 y/o F with an extensive medical Hx including HTN, HLD, hypothyroidism, anemia, adrenal insufficiency, RA, chronic hypoxia, diastolic CHF, recurrent ESBL UTI. Presents with weakness, fevers, SOB and abdominal discomfort. The pt reported recent COVID. She denies a productive cough. She uses 2-3 liters 02 continuous at home which has not changed. She was febrile on arrival to the ER. She tested + for COVID and her UA was + as well. Labs were otherwise reflective of her baseline. A CT abdomen demonstrated an L3 fracture which is subacute and coincides with her back pain and a fall she suffered on week ago. History of Present Illness Chief Complaint: Weakness, SOB Primary Care Provider: Nidhi Gardner MD 89 y/o F with an extensive medical Hx including HTN, HLD, hypothyroidism, anemia, adrenal insufficiency, RA, chronic hypoxia, CAD, diastolic CHF, recurrent ESBL UTI. Presents with weakness, fevers, SOB and abdominal discomfort. The pt reported recent COVID. She denies a productive cough. She uses 2-3 liters 02 continuous at home which has not changed. She was febrile on arrival to the ER. She tested + for COVID and her UA was + as well. Labs were otherwise reflective of her baseline. A CT abdomen demonstrated an L3 fracture which is subacute and coincides with her back pain and a fall she suffered on week ago. PMH: 1) HTN 2) HLD 3) RA 4) Diastolic CHF 5) Recurrent ESBL UTIs 6) Hypothyroidism 7) Adrenal insufficiency 8) Anemia - baseline Hb 1.5 Surgical: 1) Colectomy and colostomy 2) Cholecystectomy Social: Does not drink or smoke Family: Noncontributory due to pt age Allergies Allergy/AdvReac Type Severity Reaction Status Date / Time nitrofurantoin Allergy Severe HIVES Verified 05/01/21 16:01 scallops Allergy Severe THROAT Verified 05/01/21 16:01 SWELLS ciprofloxacin Allergy Intermediate HIVES Verified 05/01/21 16:01 latex Allergy Intermediate RASH Verified 05/01/21 16:01 Quinolones Allergy Intermediate HIVES Verified 05/01/21 16:01 fluticasone Allergy Unknown ADVAIR-UNKN Verified 05/01/21 16:01 OWN salmeterol Allergy Unknown ADVAIR Verified 05/01/21 16:01 shellfish derived Allergy SCALLOPS-THROAT Verified 05/01/21 16:01 SWELLS celecoxib AdvReac Intermediate barretts Verified 05/01/21 16:01 esophagus lactose AdvReac Intermediate GI UPSET Verified 05/01/21 16:01 milk AdvReac Intermediate LACTOSE Verified 05/01/21 16:01 INTOLERANT morphine AdvReac Intermediate NAUSEA AND Verified 05/01/21 16:01 VOMITING Home Medications Medication Instructions Recorded Confirmed Type cholecalciferol (vitamin D3) 50 2,000 units PO QAM 07/07/18 05/01/21 History mcg (2,000 unit) capsule nitroglycerin 0.4 mg sublingual 0.4 mg SL Q5M PRN #1 tab 07/07/18 05/01/21 Rx tablet cyanocobalamin (vitamin B-12) 1,000 mcg PO QAM 08/31/18 05/01/21 History 1,000 mcg tablet (Vitamin B-12) vit A 1,000 unit-C 200 mg-E 60 1 tab PO QAM 08/31/18 05/01/21 History unit-lutein 2 mg and minerals tablet (Ocuvite with Lutein) gabapentin 300 mg capsule 300 mg PO TID 09/26/18 05/01/21 History vitamin B complex 1 tab PO QAM 09/26/18 05/01/21 History phenazopyridine 97.5 mg tablet 97.5 mg PO TID PRN 11/07/18 05/01/21 History (Azo Urinary Pain Relief) acetaminophen 500 mg tablet 1,000 mg PO Q6H PRN 01/03/19 05/01/21 History (Tylenol Extra Strength) polyethylene glycol 3350 17 gram 17 gm PO QAM #1 ea 11/25/19 05/01/21 Rx oral powder packet (Miralax) lidocaine 5 % topical patch 1 patch TOP DAILY PRN #30 ea 03/26/20 05/01/21 Rx fexofenadine 60 mg capsule 60 mg PO QAM 10/18/20 05/01/21 History ondansetron 8 mg disintegrating 8 mg PO Q6H PRN #20 tab 11/28/20 05/01/21 Rx tablet diclofenac sodium 1 % topical gel 4 g TOP QID PRN #300 gm MDD 16G to 02/13/21 05/01/21 Rx (Voltaren) any one affected joint midodrine 5 mg tablet 5 mg PO QAM 02/17/21 05/01/21 History mirabegron 50 mg tablet,extended 50 mg PO DAILY #90 tab 03/24/21 05/01/21 Rx release 24 hr (Myrbetriq) prednisone 10 mg tablet 10 mg PO QAM #90 tab 04/22/21 05/01/21 Rx clopidogrel 75 mg tablet (Plavix) 75 mg PO QAM #90 tab 04/23/21 05/01/21 Rx Synthroid 88 mcg tablet 88 mcg PO QAM #90 tab NS 04/24/21 05/01/21 Rx (levothyroxine) atorvastatin 40 mg tablet 40 mg PO QDL #90 tab 04/24/21 05/01/21 Rx duloxetine 30 mg capsule,delayed 30 mg PO QAM #90 cap 04/24/21 05/01/21 Rx release duloxetine 60 mg capsule,delayed 60 mg PO QAM #90 cap 04/24/21 05/01/21 Rx release (Cymbalta) famotidine 40 mg tablet 40 mg PO HS #90 tab 04/24/21 05/01/21 Rx fluticasone propionate 50 2 spray INTRANASAL QAM PRN #15.8 ml 04/24/21 05/01/21 Rx mcg/actuation nasal spray,suspension (Flonase Allergy Relief) hydroxychloroquine 200 mg tablet 200 mg PO QAM #90 tab 04/24/21 05/01/21 Rx prazosin 1 mg capsule 1 mg PO HS #90 cap 04/24/21 05/01/21 Rx quetiapine 200 mg tablet 200 mg PO HS #90 tab 04/24/21 05/01/21 Rx dexlansoprazole 60 mg 60 mg PO QAM #90 cap 04/25/21 05/01/21 Rx capsule,biphase delayed release (Dexilant) calcitonin (salmon) 200 1 spray INTRANASAL QAM 05/01/21 05/01/21 History unit/actuation nasal spray oxycodone 10 mg tablet 10 mg PO TID 05/01/21 05/01/21 History Past Med/Surg History Medical History Adrenocortical insufficiency Allergic rhinitis Arteriosclerosis of coronary artery Asthma Balance problem Barretts esophagus Chronic back pain Chronic cystitis Chronic respiratory failure with hypoxia CKD (chronic kidney disease), stage III does not follow with nephrology Clostridium difficile carrier Colovaginal fistula ? 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 Long-term use of hydroxychloroquine Lumbar canal stenosis Major depressive disorder, recurrent 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 Nausea On home oxygen therapy 3 LPM cont Orthostatic hypotension Peripheral arterial disease Peripheral edema Peripheral neuropathy Polyarthritis Poor balance Pre-diabetes Presence of colostomy Rheumatoid arthritis Solitary pulmonary nodule Steroid-induced osteopenia TIA (transient ischemic attack) 2016 Urinary incontinence Urinary retention Surgical History H/O: hysterectomy HOLGER, BSO History of cardiac catheterization 2010 -- no stents/angioplasty -- [facility] - CP - dtr believes she follows w/ [facility] History of colon surgery sigmoid colon resection History of hip replacement bilateral 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 History of tooth extraction History of vascular surgery lower extremity unknown which leg- stents Hx of cholecystectomy Family History Grandmother (Maternal) Breast cancer Uterine cancer Father Cardiomyopathy Mother Alzheimer disease Son Colorectal cancer Daughter Breast cancer Other Cancer Diabetes Gallbladder disease Heart disease Hypertension No family history of adverse response to anesthesia Seizure Denies family history of Malignant hypothermia due to anesthesia Ovarian cancer Prostate cancer Crohn's disease Myocardial infarction Bleeding disorder Ulcerative colitis Social History Smoking Status: Unknown if ever smoked Second Hand Exposure: No; Hx Alcohol Use: No Hx Substance Use: No Preferred Language: [place]ian Communication Ability: Effective Visual Impairment: No Limitations Hearing Ability: Hard of Hearing Territory Sales Executive Required: No Beliefs That Will Affect Care: None marital status: / Current Living Situation: Alone Current Living Situation Comment: has caretakers during day current occupational status: retired How many Children do You have: 5 Feels Safe at Home: Yes Childhood Exposure to Second-Hand Smoke: Yes caffeine: Yes during the past year weight has: remained stable Dental Care, Regularly: Yes Physical Activity Frequency: Does not Exercise Seatbelt Use: always Sunscreen Use: Yes Do you think of yourself as: straight/heterosexual Assistive Devices: Denture - Upper, Denture - Lower, Glasses, Hearing Aid - Bilateral, Oxygen - Continuous, Walker and Wheelchair Review of Systems Review of Systems: Gen: + Fevers, weakness, malaise ENT: Denies congestion, throat pain, hearing loss Eyes: Denies acute visual changes CV: Denies CP, palpitations Pulmonary: + SOB GI: + abdominal discomfort and nausea Neuro: Denies acute or unilateral weakness, acute gait impairment, headache or acute visual changes Musculoskeletal: Back pain following a fall one week prior Endocrine: Denies polydipsia, polyuria Skin: Denies acute rashes or ulcers Physical Exam Physical Exam: Deferred in person exam to limit exposure to COVID variants - pt was examined by MD on same day at time of arrival. Results & Data Results & Data ([facility]) Vital Signs (Past 12 Hours) Vital Signs Temp Pulse Resp BP Pulse Ox 05/01/21 14:46 98 05/01/21 13:45 101.3 F H 103 H 17 129/85 95 05/01/21 13:44 103 H 19 137/[address] abdomen: No acute findings, subacute L3 compression fracture XR: Clear EKG: Sinus. incomplete RBBB, no change form prior Code Status & VTE Plan VTE Prophylaxis Plan VTE Prophylaxis will be ordered: Yes PG Care Time/CCT Total # of Minutes Spent Total Time Spent with Patient: Total time spent is greater than 50% in coordination of care (as documented) at patient's floor/unit and/or counseling patient: Coding Level of Care Code 97067 Initial Inpt Care Lvl 3 Diagnoses Chronic respiratory failure with hypoxia J96.11 COVID U07.1 UTI (urinary tract infection) N39.0 Chronic diastolic heart failure I50.32 Rheumatoid arthritis M06.9
[2021-05-01] MEDS ORDERED: NITROGLYCERIN SL 0.4 MG/TAB TAB SL PRN (20:26)
[2021-05-01] MEDS ORDERED: ACETAMINOPHEN 500 MG TAB PO PRN (20:26)
[2021-05-01] MEDS: SODIUM CHLORIDE 0.9% 10ML FLUSH IV SCH (21:40)
[2021-05-01] MEDS: oxyCODONE HCL IR 5 MG TAB (IMMEDIATE RELEASE) PO SCH (21:43)
[2021-05-01] MEDS: QUEtiapine FUMARATE 200 MG TAB PO SCH (21:44)
[2021-05-01] MEDS: GABAPENTIN 300 MG CAP PO SCH (21:44)
[2021-05-01] MEDS: ACETAMINOPHEN 325 MG TAB PO PRN (21:44)
[2021-05-01] MEDS: FAMOTIDINE 40 MG TABLET PO SCH (21:44)
[2021-05-01] MEDS: PRAZOSIN HCL 1 MG CAP PO SCH (21:45)
[2021-05-02] MEDS: LEVOTHYROXINE SODIUM 88 MCG TABLET PO SCH (06:16)
[2021-05-02] MEDS: DULoxetine HCL 30 MG CAP PO SCH (08:34)
[2021-05-02] MEDS: CYANOCOBALAMIN 500 MCG TABLET (VITAMIN B-12) PO SCH (08:35)
[2021-05-02] MEDS: MIDODRINE HCL 2.5 MG TAB PO SCH (08:35)
[2021-05-02] MEDS: MIRABEGRON ER 25 MG TAB PO SCH (08:36)
[2021-05-02] MEDS: CLOPIDOGREL BISULFATE 75 MG TAB PO SCH (08:36)
[2021-05-02] MEDS: PANTOprazole 40 MG TAB PO SCH (08:36)
[2021-05-02] MEDS: ACETAMINOPHEN 325 MG TAB PO PRN ×2 (08:36→20:46)
[2021-05-02] MEDS: CALCITONIN SALMON NA 200 IU/AC 3.7 ML BTL SCH (08:38)
[2021-05-02] MEDS: DULoxetine HCL 60 MG CAP PO SCH (09:07)
[2021-05-02] MEDS: oxyCODONE HCL IR 5 MG TAB (IMMEDIATE RELEASE) PO SCH ×3 (09:15→20:47)
[2021-05-02] MEDS: GABAPENTIN 300 MG CAP PO SCH ×3 (09:15→21:44)
[2021-05-02] MEDS ORDERED: VANCOMYCIN HCL 125 MG/2.5ML SOLN PO SCH (12:00)
[2021-05-02] MEDS ORDERED: RASPBERRY SYRUP 5 ML UDP PO SCH (12:00)
[2021-05-02] MEDS: ATORVASTATIN 40 MG TAB PO SCH (13:57)
[2021-05-02] MEDS: ERTAPENEM SODIUM 1,000 MG in SODIUM CHLORIDE 0.9% 50 ML IV SCH (13:58)
--- NOTE | 2021-05-02 16:04 | Hospitalist Progress Note ---
Date of Service May 02, 2021 Assessment & Plan (1) Compression fracture: Plan: L3, from fall a week ago pain control, Calcitonin spray PT/OT consults may need rehab (2) UTI (urinary tract infection): Plan: h/o recurrent UTI, specifically h/o ESBL Klebsiella continue Ertapenem, follow up final culture (3) COVID: Plan: received full vaccination in spring time no dyspnea, no cough, CXR without infiltrates not a severe case since she normally wears 2L and that is what she is on stop Dexamethasone, stop Remdesivir main issue is UTI and compression fracture (4) Chronic respiratory failure with hypoxia: Plan: stable on 2L which is her baseline, CXR clear no need to treat COVID, no signs or symptoms of COVID pneumonia discussed code status, states she wishes to be DNR, DNI, has an advanced directive that states this changed in chart (5) Chronic diastolic heart failure: Plan: continue home regimen no signs of volume overload (6) Rheumatoid arthritis: Admission and Anticipated Discharge Date Admission Date: May 01, 2021 Subjective patient says she is doing a lot better no fever/chills, + weakness she says she had her full vaccine in the spring no dyspnea, no cough, CXR clear no dysuria only complaint is back pain, explained it is from compression fracture Review of Systems Review of Systems: All systems reviewed & are unremarkable except as noted in Subjective Physical Exam Constitutional: well developed, well nourished and + frail appearing; no acute distress Neck: trachea midline, no thyromegaly Respiratory: normal respiratory effort, lungs clear to auscultation Cardiovascular: RRR, no murmur, no edema Gastrointestinal (Abdomen): normal bowel sounds, soft, nontender, no hepatosplenomegaly Musculoskeletal: Spine: + pain with thoraco-lumbar ROM and + lumbar spinal tenderness Extremities: extremities normal to inspection and + abnormal strength (weakness); no cyanosis, no clubbing and no petechiae Skin: no rashes, warm and dry Neurologic: patellar DTR's 2+ bilat, sensation intact and PERRL, EOMI, accommodation nl, no face palsy, no dysarthria Psychiatric: A+Ox3, euthymic affect Results & Data Results & Data ([facility]) Vital Signs (Past 12 Hours) Vital Signs Temp Pulse Pulse Resp BP Pulse Ox 05/02/21 15:47 36.5 C 95 H 22 120/66 97 05/02/21 11:51 36.2 C L 96 H 20 126/66 98 05/02/21 08:00 86 05/02/21 06:18 36.7 C 89 18 148/74 H 97 Laboratory Results Laboratory Results - last 24 hr 05/01/21 15:54 Urine Color Yellow Urine Appearance Cloudy A Urine pH 5.5 Ur Specific [place] 1.016 Urine Protein Negative Urine Glucose (UA) Negative Urine Ketones Negative Urine Blood Negative Urine Nitrite Positive A Urine Bilirubin Negative Urine Urobilinogen Negative Ur Leukocyte Esterase Negative Urine WBC (Auto) 5-10 H Urine RBC (Auto) 0-4 U Hyaline Cast (Auto) 1-5 U Epithel Cells (Auto) 10-20 H Urine Bacteria (Auto) 4+ H Urine Yeast Not Reportable Medications Administered Current Inpatient Medications Acetaminophen (Acetaminophen 325 Mg Tab) 650 mg PO Q4H PRN PRN Reason: Pain or Fever Stop: 05/31/21 20:25 Last Admin: 05/02/21 08:36 Dose: 650 mg Documented by: Atorvastatin Calcium (Atorvastatin 40 Mg Tab) 40 mg PO QDL [facility] Stop: 06/01/21 11:29 Last Admin: 05/02/21 13:57 Dose: 40 mg Documented by: Calcitonin Acme (Calcitonin Acme Na 200 Iu/Ac 3.7 Ml Btl) 1 sprays NA [facility] Stop: 06/01/21 08:59 Last Admin: 05/02/21 08:38 Dose: 1 sprays Documented by: Clopidogrel Bisulfate (Clopidogrel Bisulfate 75 Mg Tab) 75 mg PO [facility] Stop: 06/01/21 08:59 Last Admin: 05/02/21 08:36 Dose: 75 mg Documented by: Cyanocobalamin (Cyanocobalamin 500 Mcg Tablet (Vitamin B-12)) 1,000 mcg PO [facility] Stop: 06/01/21 08:59 Last Admin: 05/02/21 08:35 Dose: 1,000 mcg Documented by: Duloxetine HCl (Duloxetine Hcl 30 Mg Cap) 30 mg PO [facility] Stop: 06/01/21 08:59 Last Admin: 05/02/21 08:34 Dose: 30 mg Documented by: Duloxetine HCl (Duloxetine Hcl 60 Mg Cap) 60 mg PO [facility] Stop: 06/01/21 08:59 Last Admin: 05/02/21 09:07 Dose: 60 mg Documented by: Famotidine (Famotidine 40 Mg Tablet) 40 mg PO HS [facility] Stop: 05/31/21 20:59 Last Admin: 05/01/21 21:44 Dose: 40 mg Documented by: Gabapentin (Gabapentin 300 Mg Cap) 300 mg PO TID [facility] Stop: 05/31/21 20:59 Last Admin: 05/02/21 13:57 Dose: 300 mg Documented by: Ertapenem 1,000 mg/ Sodium (Chloride) 60 mls @ 100 mls/hr IV Q24H [facility] Stop: 05/10/21 14:35 Last Infusion: 05/02/21 14:47 Dose: Infused Documented by: Levothyroxine Sodium (Levothyroxine Sodium 88 Mcg Tablet) 88 mcg PO DAILYBB [facility] Stop: 06/01/21 06:29 Last Admin: 05/02/21 06:16 Dose: 88 mcg Documented by: Midodrine (Midodrine Hcl 2.5 Mg Tab) 5 mg PO QAM [facility] Stop: 06/01/21 08:59 Last Admin: 05/02/21 08:35 Dose: 5 mg Documented by: Mirabegron (Mirabegron Er 25 Mg Tab) 50 mg PO DAILY [facility] Stop: 06/01/21 08:59 Last Admin: 05/02/21 08:36 Dose: 50 mg Documented by: Nitroglycerin (Nitroglycerin Sl 0.4 Mg/Tab Tab) 0.4 mg SL Q5M PRN PRN Reason: chest pain Stop: 05/31/21 20:25 Oxycodone HCl (Oxycodone Hcl Ir 5 Mg Tab (Immediate Release)) 10 mg PO TID MEE Stop: 05/15/21 20:59 Last Admin: 05/02/21 14:05 Dose: 10 mg Documented by: Pantoprazole Sodium (Pantoprazole 40 Mg Tab) 40 mg PO QAM [facility] Stop: 06/01/21 08:59 Last Admin: 05/02/21 08:36 Dose: 40 mg Documented by: Prazosin HCl (Prazosin Hcl 1 Mg Cap) 1 mg PO HS [facility]EE Stop: 05/31/21 20:59 Last Admin: 05/01/21 21:45 Dose: 1 mg Documented by: Quetiapine Fumarate (Quetiapine Fumarate 200 Mg Tab) 200 mg PO HS [facility]EE Stop: 05/31/21 20:59 Last Admin: 05/01/21 21:44 Dose: 200 mg Documented by: Raspberry (Raspberry Syrup 5 Ml Udp) 5 ml PO QAM [facility]EE Stop: 05/16/21 11:59 Last Admin: 05/02/21 14:07 Dose: 5 ml Documented by: Sodium Chloride (Sodium Chloride 0.9% 10ml Flush) 30 ml IV Q24H [facility]EE Stop: 05/05/21 20:01 Last Admin: 05/01/21 21:40 Dose: 30 ml Documented by: Vancomycin HCl (Vancomycin Hcl 125 Mg/2.5ml Soln) 125 mg PO QAM [facility]EE Stop: 06/01/21 11:59 Last Admin: 05/02/21 14:07 Dose: 125 mg Documented by: PG Care Time/CCT Total # of Minutes Spent Total Time Spent with Patient: Total time spent is greater than 50% in coordination of care (as documented) at patient's floor/unit and/or counseling patient: Coding Level of Care Code 92661 Subseq Hosp Care Lvl 3 Diagnoses Chronic respiratory failure with hypoxia J96.11 COVID U07.1 UTI (urinary tract infection) N39.0 Chronic diastolic heart failure I50.32 Rheumatoid arthritis M06.9 Compression fracture
[2021-05-02] MEDS ORDERED: REMDESIVIR 100 MG in SODIUM CHLORIDE 0.9% 230 ML IV SCH (20:00)
[2021-05-02] MEDS: SODIUM CHLORIDE 0.9% 10ML FLUSH IV SCH (20:28)
[2021-05-02] MEDS: PRAZOSIN HCL 1 MG CAP PO SCH (21:44)
[2021-05-02] MEDS: FAMOTIDINE 40 MG TABLET PO SCH (21:44)
[2021-05-02] MEDS: QUEtiapine FUMARATE 200 MG TAB PO SCH (21:44)
[2021-05-03 07:52] LABS: Hematocrit (blood only) 29.5 % (37-47); Mean Corpuscular Hemoglobin 26.9 pg (25-34); Mean Corpuscular Hgb Conc 30.5 g/dL (32-36); Mean Corpuscular Volume 88.3 fL (80-100); Mean Platelet Volume 9.4 fL (7.4-10.4); Platelet Count 221 K/uL (130-400); RDW Coefficient of Variation 15.9 % (11.5-14.5); RDW Standard Deviation 51.5 fL (36.4-46.3); Red Blood Count 3.34 M/uL (4.2-5.4); White Blood Count 5.32 K/uL (4.8-10.8)
[2021-05-03 08:09] LABS: BUN Creatinine Ratio 20.7 (10-20); Calcium 8.5 mg/dl (8.5-10.1); Creatinine Clr Calc Pharmacy 41.7 ml/min; Est GFR (African American) 62.8 ml/min; Est GFR (Non-African American) 54.2 ml/min; Potassium 3.9 mmol/L (3.5-5.1)
[2021-05-03] MEDS: oxyCODONE HCL IR 5 MG TAB (IMMEDIATE RELEASE) PO SCH ×3 (08:30→21:49)
[2021-05-03] MEDS: LEVOTHYROXINE SODIUM 88 MCG TABLET PO SCH (09:09)
[2021-05-03] MEDS: DULoxetine HCL 60 MG CAP PO SCH (09:09)
[2021-05-03] MEDS: MIDODRINE HCL 2.5 MG TAB PO SCH (09:09)
[2021-05-03] MEDS: CLOPIDOGREL BISULFATE 75 MG TAB PO SCH (09:09)
[2021-05-03] MEDS: DULoxetine HCL 30 MG CAP PO SCH (09:09)
[2021-05-03] MEDS: MIRABEGRON ER 25 MG TAB PO SCH (09:09)
[2021-05-03] MEDS: PANTOprazole 40 MG TAB PO SCH (09:09)
[2021-05-03] MEDS: GABAPENTIN 300 MG CAP PO SCH ×3 (09:10→21:50)
[2021-05-03] MEDS: CYANOCOBALAMIN 500 MCG TABLET (VITAMIN B-12) PO SCH (09:10)
[2021-05-03] MEDS: CALCITONIN SALMON NA 200 IU/AC 3.7 ML BTL SCH (09:12)
[2021-05-03] MEDS: ATORVASTATIN 40 MG TAB PO SCH (10:32)
[2021-05-03] MEDS: dexAMETHasone 6 MG in SYRINGE 0 ML IV SCH (11:49)
[2021-05-03] MEDS: ERTAPENEM SODIUM 1,000 MG in SODIUM CHLORIDE 0.9% 50 ML IV SCH (14:30)
[2021-05-03] MEDS: SODIUM CHLORIDE 0.9% 10ML FLUSH IV SCH (21:27)
[2021-05-03] MEDS: ACETAMINOPHEN 500 MG TAB PO SCH (21:48)
[2021-05-03] MEDS: FAMOTIDINE 40 MG TABLET PO SCH (21:50)
[2021-05-03] MEDS: PRAZOSIN HCL 1 MG CAP PO SCH (21:50)
[2021-05-03] MEDS: QUEtiapine FUMARATE 200 MG TAB PO SCH (21:50)
[2021-05-03] MEDS: LIDOCAINE 5% 1 PATCH TD SCH (21:51)
--- NOTE | 2021-05-03 22:54 | Hospitalist Progress Note ---
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 about 1 week prior to admission schedule tylenol 1gm TID lidoderm patches consider TLSO brace, but uncertain if she could wear it due to the colostomy pain meds prn is on chronic prednisone for RA - will give decadron for pain control & "stress" purposes calcitonin nasal spray check 25-OH vit D level am (2) UTI (urinary tract infection): Plan: h/o recurrent UTI, specifically h/o ESBL Klebsiella continue Ertapenem - day #3 today urine cx with GNR x 2, alpha strep I am uncertain if this simply represents asymptomatic bacteriuria OR true UTI check procal in am (3) COVID: Plan: received full vaccination in spring time [facility] -- "breakthrough case" thus far mild symptoms - biggest is extreme fatigue and some appetite loss no pulmonary symptoms supportive care (4) Chronic respiratory failure with hypoxia: Plan: stable on 2L NC O2 without signs thus far of COVID pneumonia (5) Chronic diastolic heart failure: Plan: continue home regimen compensated (6) Rheumatoid arthritis: Plan: typically on chronic prednisone using decadron for back & stress dose purposes no RA flare at this time (7) CKD (chronic kidney disease), stage III: Plan: stage 3b baseline CrCl 30s/low 40s creatinine stable repeat am (8) Colostomy present: (9) Hypothyroidism: Plan: TSH last checked in 2019 needs rechecked this admission cont synthroid until then (10) SLE (systemic lupus erythematosus): Plan: resume plaquenil 200mg daily Plan: check a d-dimer in am as well PT, OT yuan left message for daughter on voicemail this evening Admission and Anticipated Discharge Date Admission Date: May 01, 2021 Subjective back pain is controlled at rest. but with any rolling in bed or moving the pain is quite severe. no radiation of pain to the legs. feels very tired/fatigued. no energy. no cough or dyspnea. eating fair. colostomy is draining brown stool. Review of Systems Constitutional: no fever and no chills Respiratory: no cough, no dyspnea and no dyspnea on exertion Cardiovascular: no chest pain Gastrointestinal: no abdominal pain, no nausea and no vomiting Musculoskeletal: + back pain Neurologic: no numbness and no radiating pain Physical Exam Physical Exam: gen - NAD, slightly confused but knew she was in the hospital and knew it was 2020 mouth - MM dry neck - no JVD heart - RRR, s1 s2 lungs - CTA b/l, no wheeze or rales, diminished BS bases abd - modestly distended but NT, colostomy with bag in place w/ brown stool, BS+ ext - no edema neuro - strength b/l legs 5/5 musculo - tender over lumbar spinal segments Results & Data Results & Data ([facility]) Vital Signs (Past 12 Hours) Vital Signs Temp Pulse Pulse Resp BP Pulse Ox 05/03/21 15:31 36.6 C 95 H 18 113/85 98 05/03/21 14:20 96 H Laboratory Results Laboratory Results - last 24 hr 05/03/21 05/03/21 07:22 07:22 WBC 5.32 RBC 3.34 L Hgb 9.0 L Hct 29.5 L MCV 88.3 MCH 26.9 MCHC 30.5 L RDW Std Deviation 51.5 H RDW Coeff of Omar 15.9 H Plt Count 221 MPV 9.4 Sodium 143 Potassium 3.9 Chloride 107 Carbon Dioxide 32 Anion Gap 4.0 BUN 19 H Creatinine 0.94 Est Cr Clr Drug Dosing 41.7 Est GFR ( Amer) 62.8 Est GFR (Non-Af Amer) 54.2 BUN/Creatinine Ratio 20.7 H Glucose 98 Calcium 8.5 PG Care Time/CCT Total # of Minutes Spent Total Time Spent with Patient: Total time spent is greater than 50% in coordin ation of care (as documented) at patient's floor/unit and/or counseling patient: Coding Level of Care Code 21574 Subseq Hosp Care Lvl 3 Diagnoses Compression fracture UTI (urinary tract infection) N39.0 COVID U07.1 Chronic respiratory failure with hypoxia J96.11 Chronic diastolic heart failure I50.32 Rheumatoid arthritis M06.9 CKD (chronic kidney disease), stage III N18.32 Chronic kidney disease stage 3 subtype: stage 3b (GFR 30-44) Colostomy present Z93.3 Hypothyroidism E03.9 SLE (systemic lupus erythematosus) M32.9 (1) CKD (chronic kidney disease), stage III Chronic kidney disease stage 3 subtype: stage 3b (GFR 30-44) Qualified Code(s): N18.32 - Chronic kidney disease, stage 3b
[2021-05-04] MEDS: LEVOTHYROXINE SODIUM 88 MCG TABLET PO SCH (05:13)
[2021-05-04 07:40] LABS: Creatinine Clr Calc Pharmacy 45.4 ml/min; Est GFR (Non-African American) 63.9 ml/min
[2021-05-04 08:02] LABS: D Dimer 700 ug/L FEU (0-500)
[2021-05-04] MEDS: oxyCODONE HCL IR 5 MG TAB (IMMEDIATE RELEASE) PO SCH ×3 (08:47→20:16)
[2021-05-04] MEDS: MIDODRINE HCL 2.5 MG TAB PO SCH (08:48)
[2021-05-04] MEDS: PANTOprazole 40 MG TAB PO SCH (08:48)
[2021-05-04] MEDS: GABAPENTIN 300 MG CAP PO SCH ×3 (08:48→20:17)
[2021-05-04] MEDS: DULoxetine HCL 60 MG CAP PO SCH (08:48)
[2021-05-04] MEDS: CLOPIDOGREL BISULFATE 75 MG TAB PO SCH (08:48)
[2021-05-04] MEDS: CYANOCOBALAMIN 500 MCG TABLET (VITAMIN B-12) PO SCH (08:48)
[2021-05-04] MEDS: MIRABEGRON ER 25 MG TAB PO SCH (08:48)
[2021-05-04] MEDS: DULoxetine HCL 30 MG CAP PO SCH (08:49)
[2021-05-04] MEDS: ACETAMINOPHEN 500 MG TAB PO SCH ×3 (08:49→20:17)
[2021-05-04] MEDS: CALCITONIN SALMON NA 200 IU/AC 3.7 ML BTL SCH (08:50)
[2021-05-04 10:18] LABS: KPC Carbapenemase NOT DETECTED (NotDetected); NDM Carbapenemase NOT DETECTED (NotDetected)
[2021-05-04] MEDS: HYDROXYCHLOROQUINE SULFATE 200 MG TAB PO SCH (10:30)
[2021-05-04] MEDS: ATORVASTATIN 40 MG TAB PO SCH (12:30)
[2021-05-04] MEDS: dexAMETHasone 6 MG in SYRINGE 0 ML IV SCH (12:30)
[2021-05-04] MEDS: ERTAPENEM SODIUM 1,000 MG in SODIUM CHLORIDE 0.9% 50 ML IV SCH (13:00)
[2021-05-04] MEDS: SODIUM CHLORIDE 0.9% 10ML FLUSH IV SCH (20:11)
[2021-05-04] MEDS: FAMOTIDINE 40 MG TABLET PO SCH (20:16)
[2021-05-04] MEDS: PRAZOSIN HCL 1 MG CAP PO SCH (20:17)
[2021-05-04] MEDS: QUEtiapine FUMARATE 200 MG TAB PO SCH (20:17)
[2021-05-04] MEDS: LIDOCAINE 5% 1 PATCH TD SCH (20:18)
--- NOTE | 2021-05-05 01:27 | Hospitalist Progress Note ---
Date of Service May 05, 2021 Assessment & Plan (1) Compression fracture: Plan: L3 Osteoporotic fracture from fall about 1 week prior to admission 25-OH vit D level pending cont scheduled tylenol 1gm TID cont lidoderm patches consider TLSO brace, but uncertain if she could wear it due to the colostomy pain meds prn is on chronic prednisone for RA - cont decadron IV for pain control & "stress" purposes - day #2 cont calcitonin nasal spray (2) UTI (urinary tract infection): Plan: h/o recurrent UTI, specifically h/o ESBL Klebsiella continue Ertapenem - day #4 today urine cx with klebsiella, e.coli, and alpha strep - sensitivities pending I am uncertain if this simply represents asymptomatic bacteriuria OR true UTI procal today wnl suggesting no bacterial process at this time plan 5 days of ertapenem then stop (3) COVID: Plan: received full vaccination in spring time thus -- "breakthrough case" thus far mild symptoms - biggest is extreme fatigue and some appetite loss no pulmonary symptoms except scant cough stable O2 sats cont supportive care (4) Chronic respiratory failure with hypoxia: Plan: stable on 2L NC O2 without signs thus far of COVID pneumonia (5) Chronic diastolic heart failure: Plan: continue home regimen compensated (6) Rheumatoid arthritis: Plan: typically on chronic prednisone and plaquenil using decadron for back & stress dose purposes no RA flare at this time (7) CKD (chronic kidney disease), stage III: Plan: stage 3b baseline CrCl 30s/low 40s creatinine stable repeat am (8) Colostomy present: Plan: no issues good stool output (9) Hypothyroidism: Plan: TSH last checked in 2019 needs rechecked tomorrow cont synthroid until then (10) SLE (systemic lupus erythematosus): Plan: cont plaquenil 200mg daily cont steroids no SLE flare (11) Acute metabolic encephalopathy: Plan: 2nd to COVID-19, etc supportive care Plan: PT, OT evals appreciated cont PT, OT as tolerated suspect she will need SNF placement spoke with daughter who lives in [place], [place] full update given, questions answered, she is in support of placement as needed for rehab Admission and Anticipated Discharge Date Admission Date: May 01, 2021 Subjective patient still quite weak, fatigued eating scantly better staff did say she stood and got out of bed briefly still w/ significant lower back pain with any movement denies leg weakness confused during the day per staff tele wnl no new complaints from patient except minimal amount of cough but no dyspnea or orthopnea Review of Systems Review of Systems: gen - fatigue, weakness cv - no chest pain pulm - no pleuritic pain, orthopnea, or dyspnea GI - occasional "discomfort" - chronic, no nausea/emesis Physical Exam Physical Exam: gen - NAD, oriented to person/place but mildly confused mouth - MM dry smacking her lips during the visit neck - no JVD heart - RRR, s1 s2 lungs - minimal rales bases, mildly decreased BS b/l, no wheeze abd - modestly distended but NT, colostomy with bag in place w/ brown stool, BS+ ext - no edema, pulses 2+ b/l neuro - strength b/l legs 5/5 Results & Data Results & Data ([facility]) Vital Signs (Past 12 Hours) Vital Signs Temp Pulse Pulse Resp BP Pulse Ox 05/04/21 23:59 95 H 05/04/21 22:51 36.6 C 94 H 20 136/78 96 05/04/21 20:00 84 05/04/21 19:00 36.8 C 92 H 18 146/67 H 91 05/04/21 16:03 36.5 C 87 18 146/70 H 92 05/04/21 15:58 93 H Laboratory Results Laboratory Results - last 24 hr 05/01/21 05/04/21 05/04/21 15:54 06:44 06:44 D-Dimer 700 H* Creatinine 0.82 Est Cr Clr Drug Dosing 45.4 Est GFR ( Amer) 74.0 Est GFR (Non-Af Amer) 63.9 25-OH Vitamin D Total Procalcitonin IMP Carbapenemase (MILLA) NOT DETECTED KPC Carbapenemase (MILLA) NOT DETECTED NDM Carbapenemase (MILLA) NOT DETECTED OXA Carbapenemase (MILLA) NOT DETECTED VIM Carbapenemase (MILLA) NOT DETECTED 05/04/21 05/04/21 06:44 06:44 D-Dimer Creatinine Est Cr Clr Drug Dosing Est GFR ( Amer) Est GFR (Non-Af Amer) 25-OH Vitamin D Total Pending Procalcitonin 0.37 IMP Carbapenemase (MILLA) KPC Carbapenemase (MILLA) NDM Carbapenemase (MILLA) OXA Carbapenemase (MILLA) VIM Carbapenemase (MILLA) PG Care Time/CCT Total # of Minutes Spent Total Time Spent with Patient: Total time spent is greater than 50% in coordination of care (as documented) at patient's floor/unit and/or counseling patient: Coding Level of Care Code 94278 Subseq Hosp Care Lvl 3 Diagnoses Compression fracture UTI (urinary tract infection) N39.0 COVID U07.1 Chronic respiratory failure with hypoxia J96.11 Chronic diastolic heart failure I50.32 Rheumatoid arthritis M06.9 CKD (chronic kidney disease), stage III N18.32 Chronic kidney disease stage 3 subtype: stage 3b (GFR 30-44) Colostomy present Z93.3 Hypothyroidism E03.9 SLE (systemic lupus erythematosus) M32.9 Acute metabolic encephalopathy G93.41 (1) CKD (chronic kidney disease), stage III Chronic kidney disease stage 3 subtype: stage 3b (GFR 30-44) Qualified Code(s): N18.32 - Chronic kidney disease, stage 3b
[2021-05-05] MEDS: LEVOTHYROXINE SODIUM 88 MCG TABLET PO SCH (04:54)
[2021-05-05 07:59] LABS: Hemoglobin 9.4 g/dL (12.0-16.0); Mean Corpuscular Hemoglobin 26.3 pg (25-34); Mean Corpuscular Hgb Conc 30.3 g/dL (32-36); Mean Corpuscular Volume 86.8 fL (80-100); Mean Platelet Volume 9.3 fL (7.4-10.4); Platelet Count 259 K/uL (130-400); RDW Coefficient of Variation 15.4 % (11.5-14.5); RDW Standard Deviation 49.4 fL (36.4-46.3); Red Blood Count 3.57 M/uL (4.2-5.4); White Blood Count 6.57 K/uL (4.8-10.8)
[2021-05-05] MEDS: ACETAMINOPHEN 500 MG TAB PO SCH ×4 (08:08→22:29)
[2021-05-05] MEDS: CYANOCOBALAMIN 500 MCG TABLET (VITAMIN B-12) PO SCH ×2 (08:10→09:13)
[2021-05-05] MEDS: HYDROXYCHLOROQUINE SULFATE 200 MG TAB PO SCH ×2 (08:11→11:48)
[2021-05-05] MEDS: CLOPIDOGREL BISULFATE 75 MG TAB PO SCH ×2 (08:11→09:13)
[2021-05-05] MEDS: MIRABEGRON ER 25 MG TAB PO SCH ×2 (08:12→09:13)
[2021-05-05] MEDS: PANTOprazole 40 MG TAB PO SCH ×2 (08:13→09:13)
[2021-05-05] MEDS: oxyCODONE HCL IR 5 MG TAB (IMMEDIATE RELEASE) PO SCH ×4 (08:13→22:27)
[2021-05-05] MEDS: GABAPENTIN 300 MG CAP PO SCH ×4 (08:14→22:28)
[2021-05-05] MEDS: DULoxetine HCL 60 MG CAP PO SCH ×2 (08:14→09:12)
[2021-05-05] MEDS: DULoxetine HCL 30 MG CAP PO SCH ×2 (08:15→09:12)
[2021-05-05] MEDS: MIDODRINE HCL 2.5 MG TAB PO SCH ×2 (08:15→09:13)
[2021-05-05] MEDS: CALCITONIN SALMON NA 200 IU/AC 3.7 ML BTL SCH (08:16)
[2021-05-05 08:32] LABS: Calcium 8.6 mg/dl (8.5-10.1); Creatinine Clr Calc Pharmacy 44.8 ml/min; Est GFR (African American) 70.9 ml/min; Est GFR (Non-African American) 61.2 ml/min; Potassium 4.3 mmol/L (3.5-5.1)
[2021-05-05] MEDS: ATORVASTATIN 40 MG TAB PO SCH (11:48)
[2021-05-05] MEDS: dexAMETHasone 6 MG in SYRINGE 0 ML IV SCH (11:48)
--- NOTE | 2021-05-05 14:07 | Hospitalist Progress Note ---
Date of Service May 05, 2021 Assessment & Plan (1) Compression fracture: Plan: L3 Osteoporotic fracture from fall about 1 week prior to admission pain improved today 25-OH vit D level robust (50) cont scheduled tylenol 1gm TID cont lidoderm patches cont oxycodone 10mg TID (this is a chronic med for her) is on chronic prednisone for RA - cont decadron IV for pain control & "stress" purposes - day #3 cont calcitonin nasal spray consider TLSO brace, but uncertain if she could wear it due to the colostomy (2) UTI (urinary tract infection): Plan: h/o recurrent UTI, specifically h/o ESBL Klebsiella continue Ertapenem - day #5 today urine cx with klebsiella, e.coli, and alpha strep - sensitive to ertapenem I am uncertain if this simply represents asymptomatic bacteriuria OR true UTI procal this admission wnl suggesting no active bacterial process at this time plan 5-7 days of ertapenem then stop (3) COVID: Plan: received full vaccination in spring time thus -- "breakthrough case" thus far mild symptoms only no pulmonary symptoms except scant cough stable O2 sats cont supportive care decadron - mainly using this for her back (4) Chronic respiratory failure with hypoxia: Plan: stable on 2L NC O2 without signs thus far of COVID pneumonia (5) Chronic diastolic heart failure: Plan: continue home regimen compensated (6) Rheumatoid arthritis: Plan: typically on chronic prednisone and plaquenil using decadron for back & stress dose purposes no RA flare at this time (7) CKD (chronic kidney disease), stage III: Plan: stage 3b baseline CrCl 30s/low 40s Cr stable (8) Colostomy present: Plan: no issues good stool output (9) Hypothyroidism: Plan: TSH minimally depressed would leave synthroid dose as is repeat a TSH in 6 weeks post-d/c (10) SLE (systemic lupus erythematosus): Plan: cont plaquenil 200mg daily cont steroids no SLE flare (11) Acute metabolic encephalopathy: Plan: 2nd to COVID-19, etc improved Plan: PT, OT evals appreciated cont PT, OT as tolerated suspect she will need SNF placement due to her weakness from COVID, L3 compression fx, etc spoke with daughter who lives in [place], [place] on 05/04/21 full update given, questions answered, she is in support of placement as needed for rehab d/c tele move to med/surg Admission and Anticipated Discharge Date Admission Date: May 01, 2021 Subjective "I feel better today" sitting in chair comfortably eating ok mild coughing spell this am otherwise no significant cough or dyspnea energy is somewhat improved back pain is controlled today no other new complaints tele - NSR Review of Systems Constitutional: + fatigue; no fever, no chills and no anorexia Respiratory: + cough; no dyspnea and no pain on inspiration Cardiovascular: no chest pain Gastrointestinal: no abdominal pain, no nausea and no vomiting Physical Exam Physical Exam: gen - NAD, oriented to person/place/time; best she has looked over the last few days neck - no JVD heart - RRR, s1 s2, no murmur lungs - mildly decreased BS b/l, no wheeze, no obvious rales abd - modestly distended but NT, colostomy with bag in place w/ brown stool, BS+ ext - no edema, pulses 2+ b/l neuro - strength b/l legs 5/5; arms 5/5 Results & Data Results & Data ([facility]) Vital Signs (Past 12 Hours) Vital Signs Temp Pulse Pulse Resp BP Pulse Ox 05/05/21 11:51 36.5 C 93 H 16 131/68 98 05/05/21 10:00 16 98 05/05/21 08:00 36.6 C 77 80 20 153/60 H 99 05/05/21 04:49 36.6 C 73 16 172/89 H 97 Laboratory Results Laboratory Results - last 24 hr 05/04/21 05/05/21 05/05/21 06:44 07:22 07:22 WBC 6.57 RBC 3.57 L Hgb 9.4 L Hct 31.0 L MCV 86.8 MCH 26.3 MCHC 30.3 L RDW Std Deviation 49.4 H RDW Coeff of Omar 15.4 H Plt Count 259 MPV 9.3 Sodium 139 Potassium 4.3 Chloride 104 Carbon Dioxide 31 Anion Gap 4.0 BUN 19 H Creatinine 0.85 Est Cr Clr Drug Dosing 44.8 Est GFR ( Amer) 70.9 Est GFR (Non-Af Amer) 61.2 BUN/Creatinine Ratio 22.0 H Glucose 129 H Calcium 8.6 25-OH Vitamin D Total 51.2 TSH 05/05/21 07:22 WBC RBC Hgb Hct MCV MCH MCHC RDW Std Deviation RDW Coeff of Omar Plt Count MPV Sodium Potassium Chloride Carbon Dioxide Anion Gap BUN Creatinine Est Cr Clr Drug Dosing Est GFR ( Amer) Est GFR (Non-Af Amer) BUN/Creatinine Ratio Glucose Calcium 25-OH Vitamin D Total TSH 0.169 L PG Care Time/CCT Total # of Minutes Spent Total Time Spent with Patient: Total time spent is greater than 50% in coordination of care (as documented) at patient's floor/unit and/or counseling patient: Coding Level of Care Code 98189 Subseq Hosp Care Lvl 2 Diagnoses Compression fracture UTI (urinary tract infection) N39.0 COVID U07.1 Chronic respiratory failure with hypoxia J96.11 Chronic diastolic heart failure I50.32 Rheumatoid arthritis M06.9 CKD (chronic kidney disease), stage III N18.32 Chronic kidney disease stage 3 subtype: stage 3b (GFR 30-44) Colostomy present Z93.3 Hypothyroidism E03.9 SLE (systemic lupus erythematosus) M32.9 Acute metabolic encephalopathy G93.41 (1) CKD (chronic kidney disease), stage III Chronic kidney disease stage 3 subtype: stage 3b (GFR 30-44) Qualified Code(s): N18.32 - Chronic kidney disease, stage 3b
[2021-05-05] MEDS: ERTAPENEM SODIUM 1,000 MG in SODIUM CHLORIDE 0.9% 50 ML IV SCH (14:38)
[2021-05-05] MEDS: LIDOCAINE 5% 1 PATCH TD SCH (22:28)
[2021-05-05] MEDS: QUEtiapine FUMARATE 200 MG TAB PO SCH (22:28)
[2021-05-05] MEDS: PRAZOSIN HCL 1 MG CAP PO SCH (22:41)
[2021-05-05] MEDS: FAMOTIDINE 40 MG TABLET PO SCH (22:42)
[2021-05-06] MEDS: LEVOTHYROXINE SODIUM 88 MCG TABLET PO SCH (06:35)
[2021-05-06] MEDS: oxyCODONE HCL IR 5 MG TAB (IMMEDIATE RELEASE) PO SCH ×3 (08:26→20:53)
[2021-05-06] MEDS: MIRABEGRON ER 25 MG TAB PO SCH (08:26)
[2021-05-06] MEDS: CYANOCOBALAMIN 500 MCG TABLET (VITAMIN B-12) PO SCH (08:26)
[2021-05-06] MEDS: PANTOprazole 40 MG TAB PO SCH (08:26)
[2021-05-06] MEDS: MIDODRINE HCL 2.5 MG TAB PO SCH (08:26)
[2021-05-06] MEDS: HYDROXYCHLOROQUINE SULFATE 200 MG TAB PO SCH (08:26)
[2021-05-06] MEDS: DULoxetine HCL 30 MG CAP PO SCH (08:26)
[2021-05-06] MEDS: DULoxetine HCL 60 MG CAP PO SCH (08:26)
[2021-05-06] MEDS: ACETAMINOPHEN 500 MG TAB PO SCH ×3 (08:26→20:52)
[2021-05-06] MEDS: GABAPENTIN 300 MG CAP PO SCH ×3 (08:26→20:53)
[2021-05-06] MEDS: CLOPIDOGREL BISULFATE 75 MG TAB PO SCH (08:27)
[2021-05-06] MEDS: CALCITONIN SALMON NA 200 IU/AC 3.7 ML BTL SCH ×2 (10:16→10:23)
[2021-05-06] MEDS: dexAMETHasone 6 MG in SYRINGE 0 ML IV SCH (10:37)
[2021-05-06] MEDS: ATORVASTATIN 40 MG TAB PO SCH (10:37)
[2021-05-06] MEDS: ERTAPENEM SODIUM 1,000 MG in SODIUM CHLORIDE 0.9% 50 ML IV SCH (13:40)
[2021-05-06] MEDS: FAMOTIDINE 40 MG TABLET PO SCH (20:53)
[2021-05-06] MEDS: LIDOCAINE 5% 1 PATCH TD SCH (20:53)
[2021-05-06] MEDS: PRAZOSIN HCL 1 MG CAP PO SCH (20:53)
[2021-05-06] MEDS: QUEtiapine FUMARATE 200 MG TAB PO SCH (20:53)
--- NOTE | 2021-05-06 21:25 | Hospitalist Progress Note ---
Date of Service May 06, 2021 Assessment & Plan (1) Compression fracture: Plan: L3 Osteoporotic fracture from fall about 1 week prior to admission pain improved today 25-OH vit D level robust (50) cont scheduled tylenol 1gm TID cont lidoderm patches cont oxycodone 10mg TID (this is a chronic med for her) is on chronic prednisone for RA - cont decadron IV for pain control & "stress" purposes - day #4 cont calcitonin nasal spray consider TLSO brace, but uncertain if she could wear it due to the colostomy pending placement (2) UTI (urinary tract infection): Plan: h/o recurrent UTI, specifically h/o ESBL Klebsiella continue Ertapenem - day #6 today urine cx with klebsiella, e.coli, and alpha strep - sensitive to ertapenem I am uncertain if this simply represents asymptomatic bacteriuria OR true UTI procal this admission wnl suggesting no active bacterial process at this time plan 5-7 days of ertapenem then stop (3) COVID: Plan: received full vaccination in spring time thus -- "breakthrough case" thus far mild symptoms only no pulmonary symptoms except scant cough stable O2 sats cont supportive care decadron - mainly using this for her back (4) Chronic respiratory failure with hypoxia: Plan: stable on 2L NC O2 without signs thus far of COVID pneumonia (5) Chronic diastolic heart failure: Plan: continue home regimen compensated (6) Rheumatoid arthritis: Plan: typically on chronic prednisone and plaquenil using decadron for back & stress dose purposes no RA flare at this time (7) CKD (chronic kidney disease), stage III: Plan: stage 3b baseline CrCl 30s/low 40s Cr stable (8) Colostomy present: Plan: no issues good stool output (9) Hypothyroidism: Plan: TSH minimally depressed would leave synthroid dose as is repeat a TSH in 6 weeks post-d/c (10) SLE (systemic lupus erythematosus): Plan: cont plaquenil 200mg daily cont steroids no SLE flare (11) Acute metabolic encephalopathy: Plan: 2nd to COVID-19, etc improved Plan: PT, OT evals appreciated cont PT, OT as tolerated suspect she will need SNF placement due to her weakness from COVID, L3 compression fx, etc spoke with daughter who lives in [place], [place] on 05/04/21 full update given, questions answered, she is in support of placement as needed for rehab d/c tele move to med/surg Admission and Anticipated Discharge Date Admission Date: May 01, 2021 Subjective Patient reports no new symptoms today. She states her cough has improved and has decreased in intensity and frequency. Review of Systems Review of Systems: All systems reviewed & are unremarkable except as noted in HPI & below Physical Exam Physical Exam: gen - NAD, oriented to person/place/time; best she has looked over the last few days neck - no JVD heart - RRR, s1 s2, no murmur lungs - mildly decreased BS b/l, no wheeze, no obvious rales abd - modestly distended but NT, colostomy with bag in place w/ brown stool, BS+ ext - no edema, pulses 2+ b/l neuro - strength b/l legs 5/5; arms 5/5 Results & Data Results & Data ([facility]) Vital Signs (Past 12 Hours) Vital Signs Temp Pulse Resp BP Pulse Ox 05/06/21 20:54 36.8 C 85 18 123/55 L 93 05/06/21 13:58 97 PG Care Time/CCT Total # of Minutes Spent Total Time Spent with Patient: Total time spent is greater than 50% in coordination of care (as documented) at patient's floor/unit and/or counseling patient: Coding Level of Care Code 05557 Subseq Hosp Care Lvl 2 Diagnoses Compression fracture UTI (urinary tract infection) N39.0 COVID U07.1 Chronic respiratory failure with hypoxia J96.11 Chronic diastolic heart failure I50.32 Rheumatoid arthritis M06.9 CKD (chronic kidney disease), stage III N18.32 Chronic kidney disease stage 3 subtype: stage 3b (GFR 30-44) Colostomy present Z93.3 Hypothyroidism E03.9 SLE (systemic lupus erythematosus) M32.9 Acute metabolic encephalopathy G93.41 Time Spent (min) 25 (1) CKD (chronic kidney disease), stage III Chronic kidney disease stage 3 subtype: stage 3b (GFR 30-44) Qualified Code(s): N18.32 - Chronic kidney disease, stage 3b
[2021-05-07] MEDS: LEVOTHYROXINE SODIUM 88 MCG TABLET PO SCH (05:32)
[2021-05-07] MEDS: DULoxetine HCL 60 MG CAP PO SCH (10:09)
[2021-05-07] MEDS: MIRABEGRON ER 25 MG TAB PO SCH (10:09)
[2021-05-07] MEDS: HYDROXYCHLOROQUINE SULFATE 200 MG TAB PO SCH (10:09)
[2021-05-07] MEDS: ATORVASTATIN 40 MG TAB PO SCH (10:09)
[2021-05-07] MEDS: DULoxetine HCL 30 MG CAP PO SCH (10:09)
[2021-05-07] MEDS: CYANOCOBALAMIN 500 MCG TABLET (VITAMIN B-12) PO SCH (10:09)
[2021-05-07] MEDS: CLOPIDOGREL BISULFATE 75 MG TAB PO SCH (10:10)
[2021-05-07] MEDS: oxyCODONE HCL IR 5 MG TAB (IMMEDIATE RELEASE) PO SCH ×3 (10:10→21:09)
[2021-05-07] MEDS: PANTOprazole 40 MG TAB PO SCH (10:10)
[2021-05-07] MEDS: MIDODRINE HCL 2.5 MG TAB PO SCH (10:10)
[2021-05-07] MEDS: GABAPENTIN 300 MG CAP PO SCH ×3 (10:10→21:08)
[2021-05-07] MEDS: CALCITONIN SALMON NA 200 IU/AC 3.7 ML BTL SCH (10:11)
[2021-05-07] MEDS: ACETAMINOPHEN 500 MG TAB PO SCH ×3 (10:11→21:09)
[2021-05-07] MEDS: dexAMETHasone 6 MG in SYRINGE 0 ML IV SCH (11:30)
[2021-05-07] MEDS: ERTAPENEM SODIUM 1,000 MG in SODIUM CHLORIDE 0.9% 50 ML IV SCH (14:30)
--- NOTE | 2021-05-07 20:21 | Hospitalist Progress Note ---
Date of Service May 07, 2021 Assessment & Plan (1) Compression fracture: Plan: L3 Osteoporotic fracture from fall about 1 week prior to admission pain largely unchanged 25-OH vit D level robust (50) cont scheduled tylenol 1gm TID cont lidoderm patches cont oxycodone 10mg TID (this is a chronic med for her) cont calcitonin nasal spray cont decadron 6mg - today is day #6; convert IV to PO; plan 10 days in total then resume her normal chronic prednisone dose that she takes for RA (2) UTI (urinary tract infection): Plan: h/o recurrent UTI, specifically h/o ESBL Klebsiella today is day #7 of Ertapenem - stop after today's dose urine cx with klebsiella, e.coli, and alpha strep - sensitive to ertapenem (3) COVID: Plan: received full vaccination in spring time thus -- "breakthrough case" thus far "mild" symptoms only although has severe weakness & fatigue. further, although no hypoxia, she has b/l rales on exam today - perhaps mild COVID pneumonia (has cough, etc) cont supportive care decadron - mainly using this for her back, but will help her lungs to some extent (4) Chronic respiratory failure with hypoxia: Plan: typically on 2L NC O2 continuously at home, but has been stable in RA at rest [id number] suspect she will need O2 w/ activity as previous (5) Chronic diastolic heart failure: Plan: continue home regimen compensated (6) Rheumatoid arthritis: Plan: typically on chronic prednisone and plaquenil using decadron for back & stress dose purposes no RA flare at this time finish 10-day decadron course, then resume her normal prednisone dosing (7) CKD (chronic kidney disease), stage III: Plan: stage 3b baseline CrCl 30s/low 40s Cr stable (8) Colostomy present: Plan: no issues good stool output (9) Hypothyroidism: Plan: TSH minimally depressed would leave synthroid dose as is repeat a TSH in 6 weeks post-d/c (10) SLE (systemic lupus erythematosus): Plan: cont plaquenil 200mg daily cont steroids no SLE flare (11) Acute metabolic encephalopathy: Plan: 2nd to COVID-19, etc improved / resolved Plan: PT, OT evals appreciated cont PT, OT as tolerated - 50-60% functional loss documented; has caregivers during the day, but is alone at night may need rehabbing post-d/c spoke with daughter who lives in [place], [place] on 05/04/21 and 05/07/21 full update given, questions answered told her that her mother has fatigue, anorexia related to the COVID and could last another week or longer may need rehab for shoulder pain b/l - voltaren gel 4gm qid prn Admission and Anticipated Discharge Date Admission Date: May 01, 2021 Subjective pt c/o b/l shoulder pain, followed by low back pain. hurts to move the shoulders. mild cough - no sputum. denies dyspnea. during the visit she was eating lunch - I asked how her appetite was and she sa id "oh, good" but very little was eaten off the tray (bites). c/o weakness and fatigue. Review of Systems Review of Systems: gen - weakness, fatigue, anorexia cardio - no chest pain pulm - no dyspnea or pleuritic chest pain gi - no nausea or emesis; ostomy producing normal brown stool; modest abdominal pain - chronic musculo - no radicular pain; no leg weakness Physical Exam Physical Exam: gen - NAD, oriented to person/place/time neck - no JVD heart - RRR, s1 s2, no murmur lungs - mildly decreased BS b/l, no wheeze, mild soft rales abd - soft, NT, colostomy with bag in place w/ brown stool, BS+ ext - no edema, pulses 2+ b/l neuro - strength b/l legs 5/l musculo - b/l shoulders - no synovitis Results & Data Results & Data ([facility]) Vital Signs (Past 12 Hours) Vital Signs Temp Pulse Resp BP Pulse Ox Pulse Ox 05/07/21 11:17 18 05/07/21 06:35 36.5 C 108 H 20 179/68 H 93 05/07/21 03:38 94 05/07/21 01:30 94 05/06/21 20:54 36.8 C 85 18 123/55 L 93 Intake and Output 05/07/21 05/07/21 05/07/21 06:59 14:59 22:59 Intake Total 200 / 380 270 / 330 60 / 330 Output Total 100 / 100 Balance 100 / 280 270 / 330 60 / 330 Intake: IV 60 / 60 Ertapenem Sodium 1,000 mg In 60 / 60 Sodium Chloride 0.9% 50 ml @ 100 mls/hr IV Q24H [facility] Rx#: [id number] Oral 200 / 320 270 / 270 Output: Gastric Drainage 100 / 100 Left Lower Quadrant Ileostomy/ 100 / 100 Colostomy Other: # Urine Diapers 3 PG Care Time/CCT Total # of Minutes Spent Total Time Spent with Patient: Total time spent is greater than 50% in coordination of care (as documented) at patient's floor/unit and/or counseling patient: Coding Level of Care Code 55602 Subseq Hosp Care Lvl 2 Diagnoses Compression fracture UTI (urinary tract infection) N39.0 COVID U07.1 Chronic respiratory failure with hypoxia J96.11 Chronic diastolic heart failure I50.32 Rheumatoid arthritis M06.9 CKD (chronic kidney disease), stage III N18.32 Chronic kidney disease stage 3 subtype: stage 3b (GFR 30-44) Colostomy present Z93.3 Hypothyroidism E03.9 SLE (systemic lupus erythematosus) M32.9 Acute metabolic encephalopathy G93.41 (1) CKD (chronic kidney disease), stage III Chronic kidney disease stage 3 subtype: stage 3b (GFR 30-44) Qualified Code(s): N18.32 - Chronic kidney disease, stage 3b
[2021-05-07] MEDS: QUEtiapine FUMARATE 200 MG TAB PO SCH (21:08)
[2021-05-07] MEDS: PRAZOSIN HCL 1 MG CAP PO SCH (21:08)
[2021-05-07] MEDS: FAMOTIDINE 40 MG TABLET PO SCH (21:09)
[2021-05-07] MEDS: LIDOCAINE 5% 1 PATCH TD SCH (21:09)
[2021-05-07] MEDS: DICLOFENAC SOD 1% GEL 100 GM TUBE EXT SCH (22:42)
[2021-05-08] MEDS: LEVOTHYROXINE SODIUM 88 MCG TABLET PO SCH (06:26)
[2021-05-08] MEDS: ACETAMINOPHEN 500 MG TAB PO SCH ×3 (08:47→23:01)
[2021-05-08] MEDS: CALCITONIN SALMON NA 200 IU/AC 3.7 ML BTL SCH (08:48)
[2021-05-08] MEDS: MIRABEGRON ER 25 MG TAB PO SCH (08:49)
[2021-05-08] MEDS: PANTOprazole 40 MG TAB PO SCH (08:49)
[2021-05-08] MEDS: MIDODRINE HCL 2.5 MG TAB PO SCH (08:49)
[2021-05-08] MEDS: oxyCODONE HCL IR 5 MG TAB (IMMEDIATE RELEASE) PO SCH ×3 (08:49→22:47)
[2021-05-08 08:50] LABS: BUN Creatinine Ratio 28.8 (10-20); Calcium 8.9 mg/dl (8.5-10.1); Creatinine Clr Calc Pharmacy 45.9 ml/min; Potassium 3.7 mmol/L (3.5-5.1)
[2021-05-08] MEDS: GABAPENTIN 300 MG CAP PO SCH ×3 (08:50→22:46)
[2021-05-08] MEDS: DULoxetine HCL 30 MG CAP PO SCH (08:50)
[2021-05-08] MEDS: DULoxetine HCL 60 MG CAP PO SCH (08:50)
[2021-05-08] MEDS: HYDROXYCHLOROQUINE SULFATE 200 MG TAB PO SCH (08:50)
[2021-05-08] MEDS: dexAMETHasone 4 MG TAB PO SCH (08:51)
[2021-05-08] MEDS: CYANOCOBALAMIN 500 MCG TABLET (VITAMIN B-12) PO SCH (08:52)
[2021-05-08] MEDS: CLOPIDOGREL BISULFATE 75 MG TAB PO SCH (08:52)
[2021-05-08] MEDS: DICLOFENAC SOD 1% GEL 100 GM TUBE EXT SCH ×4 (08:52→22:45)
[2021-05-08] MEDS ORDERED: dexAMETHasone 1 MG TAB PO SCH (09:00)
[2021-05-08] MEDS: ATORVASTATIN 40 MG TAB PO SCH (12:30)
--- NOTE | 2021-05-08 22:31 | Hospitalist Progress Note ---
Date of Service May 08, 2021 Assessment & Plan (1) Compression fracture: Plan: L3 Osteoporotic fracture from fall about 1 week prior to admission pain largely unchanged 25-OH vit D level robust (50) cont scheduled tylenol 1gm TID cont lidoderm patches cont oxycodone 10mg TID (this is a chronic med for her) cont calcitonin nasal spray cont decadron 6mg - today is day #7; convert IV to PO; plan 10 days in total then resume her normal chronic prednisone dose that she takes for RA (2) UTI (urinary tract infection): Plan: h/o recurrent UTI, specifically h/o ESBL Klebsiella completed day #7 of Ertapenem urine cx with klebsiella, e.coli, and alpha strep - sensitive to ertapenem (3) COVID: Plan: received full vaccination in spring time thus -- "breakthrough case" thus far "mild" symptoms only although has severe weakness & fatigue. further, although no hypoxia, she has b/l rales on exam today - perhaps mild COVID pneumonia (has cough, etc) cont supportive care decadron - mainly using this for her back, but will help her lungs to some extent (4) Chronic respiratory failure with hypoxia: Plan: typically on 2L NC O2 continuously at home, but has been stable in RA at rest [id number] suspect she will need O2 w/ activity as previous (5) Chronic diastolic heart failure: Plan: continue home regimen compensated (6) Rheumatoid arthritis: Plan: typically on chronic prednisone and plaquenil using decadron for back & stress dose purposes no RA flare at this time finish 10-day decadron course, then resume her normal prednisone dosing (7) CKD (chronic kidney disease), stage III: Plan: stage 3b baseline CrCl 30s/low 40s Cr stable (8) Colostomy present: Plan: no issues good stool output (9) Hypothyroidism: Plan: TSH minimally depressed would leave synthroid dose as is repeat a TSH in 6 weeks post-d/c (10) SLE (systemic lupus erythematosus): Plan: cont plaquenil 200mg daily cont steroids no SLE flare (11) Acute metabolic encephalopathy: Plan: 2nd to COVID-19, etc improved / resolved Plan: PT, OT evals appreciated cont PT, OT as tolerated - 50-60% functional loss documented; has caregivers during the day, but is alone at night may need rehabbing post-d/c spoke with daughter who lives in [place], [place] on 05/04/21 and 05/07/21 full update given, questions answered told her that her mother has fatigue, anorexia related to the COVID and could last another week or longer may need rehab for shoulder pain b/l - voltaren gel 4gm qid prn Admission and Anticipated Discharge Date Admission Date: May 01, 2021 Subjective Patient reports no new symptoms. Review of Systems Review of Systems: All systems reviewed & are unremarkable except as noted in HPI & below Physical Exam Physical Exam: gen - NAD, oriented to person/place/time; best she has looked over the last few days neck - no JVD heart - RRR, s1 s2, no murmur lungs - mildly decreased BS b/l, no wheeze, no obvious rales abd - modestly distended but NT, colostomy with bag in place w/ brown stool, BS+ ext - no edema, pulses 2+ b/l neuro - strength b/l legs 5/5; arms 5/5 Results & Data Results & Data ([facility]) Vital Signs (Past 12 Hours) Vital Signs Temp Pulse Resp BP Pulse Ox 05/08/21 12:28 36.7 C 101 H 18 133/65 92 PG Care Time/CCT Total # of Minutes Spent Total Time Spent with Patient: Total time spent is greater than 50% in coordination of care (as documented) at patient's floor/unit and/or counseling patient: Coding Level of Care Code 98923 Subseq Hosp Care Lvl 2 Diagnoses Compression fracture UTI (urinary tract infection) N39.0 COVID U07.1 Chronic respiratory failure with hypoxia J96.11 Chronic diastolic heart failure I50.32 Rheumatoid arthritis M06.9 CKD (chronic kidney disease), stage III N18.32 Chronic kidney disease stage 3 subtype: stage 3b (GFR 30-44) Colostomy present Z93.3 Hypothyroidism E03.9 SLE (systemic lupus erythematosus) M32.9 Acute metabolic encephalopathy G93.41 Time Spent (min) 25 (1) CKD (chronic kidney disease), stage III Chronic kidney disease stage 3 subtype: stage 3b (GFR 30-44) Qualified Code(s): N18.32 - Chronic kidney disease, stage 3b
[2021-05-08] MEDS: FAMOTIDINE 40 MG TABLET PO SCH (22:45)
[2021-05-08] MEDS: LIDOCAINE 5% 1 PATCH TD SCH (22:46)
[2021-05-08] MEDS: QUEtiapine FUMARATE 200 MG TAB PO SCH (22:49)
[2021-05-08] MEDS: PRAZOSIN HCL 1 MG CAP PO SCH (22:49)
[2021-05-09] MEDS: LEVOTHYROXINE SODIUM 88 MCG TABLET PO SCH (06:03)
[2021-05-09] MEDS: ACETAMINOPHEN 500 MG TAB PO SCH ×3 (09:32→21:29)
[2021-05-09] MEDS: CALCITONIN SALMON NA 200 IU/AC 3.7 ML BTL SCH (09:34)
[2021-05-09] MEDS: CLOPIDOGREL BISULFATE 75 MG TAB PO SCH (09:35)
[2021-05-09] MEDS: CYANOCOBALAMIN 500 MCG TABLET (VITAMIN B-12) PO SCH (09:36)
[2021-05-09] MEDS: dexAMETHasone 4 MG TAB PO SCH (09:36)
[2021-05-09] MEDS: oxyCODONE HCL IR 5 MG TAB (IMMEDIATE RELEASE) PO SCH ×3 (09:37→21:32)
[2021-05-09] MEDS: DULoxetine HCL 60 MG CAP PO SCH (09:37)
[2021-05-09] MEDS: GABAPENTIN 300 MG CAP PO SCH ×3 (09:37→21:31)
[2021-05-09] MEDS: DULoxetine HCL 30 MG CAP PO SCH (09:37)
[2021-05-09] MEDS: DICLOFENAC SOD 1% GEL 100 GM TUBE EXT SCH ×4 (09:38→21:30)
[2021-05-09] MEDS: HYDROXYCHLOROQUINE SULFATE 200 MG TAB PO SCH (09:38)
[2021-05-09] MEDS: PANTOprazole 40 MG TAB PO SCH (09:40)
[2021-05-09] MEDS: MIRABEGRON ER 25 MG TAB PO SCH (09:41)
[2021-05-09] MEDS: MIDODRINE HCL 2.5 MG TAB PO SCH (09:41)
[2021-05-09] MEDS: ATORVASTATIN 40 MG TAB PO SCH (12:45)
--- NOTE | 2021-05-09 20:49 | Hospitalist Progress Note ---
Date of Service May 09, 2021 Assessment & Plan (1) Compression fracture: Plan: L3 Osteoporotic fracture from fall about 1 week prior to admission pain largely unchanged 25-OH vit D level robust (50) cont scheduled tylenol 1gm TID cont lidoderm patches cont oxycodone 10mg TID (this is a chronic med for her) cont calcitonin nasal spray cont decadron 6mg - today is day #7; convert IV to PO; plan 10 days in total then resume her normal chronic prednisone dose that she takes for RA (2) UTI (urinary tract infection): Plan: h/o recurrent UTI, specifically h/o ESBL Klebsiella completed day #7 of Ertapenem urine cx with klebsiella, e.coli, and alpha strep - sensitive to ertapenem (3) COVID: Plan: received full vaccination in spring time thus -- "breakthrough case" thus far "mild" symptoms only although has severe weakness & fatigue. further, although no hypoxia, she has b/l rales on exam today - perhaps mild COVID pneumonia (has cough, etc) cont supportive care decadron - mainly using this for her back, but will help her lungs to some extent Requires 10 days in isolation. (4) Chronic respiratory failure with hypoxia: Plan: typically on 2L NC O2 continuously at home, but has been stable in RA at rest [id number] suspect she will need O2 w/ activity as previous (5) Chronic diastolic heart failure: Plan: continue home regimen compensated (6) Rheumatoid arthritis: Plan: typically on chronic prednisone and plaquenil using decadron for back & stress dose purposes no RA flare at this time finish 10-day decadron course, then resume her normal prednisone dosing (7) CKD (chronic kidney disease), stage III: Plan: stage 3b baseline CrCl 30s/low 40s Cr stable (8) Colostomy present: Plan: no issues good stool output (9) Hypothyroidism: Plan: TSH minimally depressed would leave synthroid dose as is repeat a TSH in 6 weeks post-d/c (10) SLE (systemic lupus erythematosus): Plan: cont plaquenil 200mg daily cont steroids no SLE flare (11) Acute metabolic encephalopathy: Plan: 2nd to COVID-19, etc improved / resolved Plan: PT, OT evals appreciated cont PT, OT as tolerated - 50-60% functional loss documented; has caregivers during the day, but is alone at night may need rehabbing post-d/c spoke with daughter who lives in [place], [place] on 05/04/21 and 05/07/21 full update given, questions answered told her that her mother has fatigue, anorexia related to the COVID and could last another week or longer may need rehab for shoulder pain b/l - voltaren gel 4gm qid prn Admission and Anticipated Discharge Date Admission Date: May 01, 2021 Subjective Patient reports no new symptoms Review of Systems Review of Systems: All systems reviewed & are unremarkable except as noted in HPI & below Physical Exam Physical Exam: gen - NAD, oriented to person/place/time; best she has looked over the last few days neck - no JVD heart - RRR, s1 s2, no murmur lungs - mildly decreased BS b/l, no wheeze, no obvious rales abd - modestly distended but NT, colostomy with bag in place w/ brown stool, BS+ ext - no edema, pulses 2+ b/l neuro - strength b/l legs 5/5; arms 5/5 PG Care Time/CCT Total # of Minutes Spent Total Time Spent with Patient: Total time spent is greater than 50% in coordination of care (as documented) at patient's floor/unit and/or counseling patient: Coding Level of Care Code 52492 Subseq Hosp Care Lvl 2 Diagnoses Compression fracture UTI (urinary tract infection) N39.0 COVID U07.1 Chronic respiratory failure with hypoxia J96.11 Chronic diastolic heart failure I50.32 Rheumatoid arthritis M06.9 CKD (chronic kidney disease), stage III N18.32 Chronic kidney disease stage 3 subtype: stage 3b (GFR 30-44) Colostomy present Z93.3 Hypothyroidism E03.9 SLE (systemic lupus erythematosus) M32.9 Acute metabolic encephalopathy G93.41 (1) CKD (chronic kidney disease), stage III Chronic kidney disease stage 3 subtype: stage 3b (GFR 30-44) Qualified Co de(s): N18.32 - Chronic kidney disease, stage 3b
[2021-05-09] MEDS: LIDOCAINE 5% 1 PATCH TD SCH (21:31)
[2021-05-09] MEDS: FAMOTIDINE 40 MG TABLET PO SCH (21:31)
[2021-05-09] MEDS: QUEtiapine FUMARATE 200 MG TAB PO SCH (21:33)
[2021-05-09] MEDS: PRAZOSIN HCL 1 MG CAP PO SCH (21:33)
[2021-05-10] MEDS: LEVOTHYROXINE SODIUM 88 MCG TABLET PO SCH (06:28)
[2021-05-10] MEDS: oxyCODONE HCL IR 5 MG TAB (IMMEDIATE RELEASE) PO SCH ×3 (09:02→20:30)
[2021-05-10] MEDS: ACETAMINOPHEN 500 MG TAB PO SCH ×3 (09:02→20:28)
[2021-05-10] MEDS: DICLOFENAC SOD 1% GEL 100 GM TUBE EXT SCH ×4 (09:03→20:28)
[2021-05-10] MEDS: CALCITONIN SALMON NA 200 IU/AC 3.7 ML BTL SCH (09:04)
[2021-05-10] MEDS: CYANOCOBALAMIN 500 MCG TABLET (VITAMIN B-12) PO SCH (09:06)
[2021-05-10] MEDS: dexAMETHasone 4 MG TAB PO SCH (09:06)
[2021-05-10] MEDS: CLOPIDOGREL BISULFATE 75 MG TAB PO SCH (09:06)
[2021-05-10] MEDS: PANTOprazole 40 MG TAB PO SCH (09:08)
[2021-05-10] MEDS: GABAPENTIN 300 MG CAP PO SCH ×3 (09:08→20:29)
[2021-05-10] MEDS: MIRABEGRON ER 25 MG TAB PO SCH (09:08)
[2021-05-10] MEDS: DULoxetine HCL 30 MG CAP PO SCH (09:08)
[2021-05-10] MEDS: DULoxetine HCL 60 MG CAP PO SCH (09:08)
[2021-05-10] MEDS: MIDODRINE HCL 2.5 MG TAB PO SCH (09:08)
[2021-05-10] MEDS: HYDROXYCHLOROQUINE SULFATE 200 MG TAB PO SCH (09:08)
[2021-05-10] MEDS: ATORVASTATIN 40 MG TAB PO SCH (12:39)
--- NOTE | 2021-05-10 14:39 | Hospitalist Progress Note ---
Date of Service May 10, 2021 Assessment & Plan (1) Compression fracture: Plan: L3 Osteoporotic fracture from fall about 1 week prior to admission pain largely unchanged 25-OH vit D level robust (50) cont scheduled tylenol 1gm TID cont lidoderm patches cont oxycodone 10mg TID (this is a chronic med for her) cont calcitonin nasal spray cont decadron 6mg - today is day #8; convert IV to PO; plan 10 days in total then resume her normal chronic prednisone dose that she takes for RA (2) UTI (urinary tract infection): Plan: h/o recurrent UTI, specifically h/o ESBL Klebsiella completed 7 days of Ertapenem urine cx with klebsiella, e.coli, and alpha strep - sensitive to ertapenem (3) COVID: Plan: received full vaccination in spring time thus -- "breakthrough case" thus far "mild" symptoms only although has severe weakness & fatigue. further, although no hypoxia, she has b/l rales on exam today - perhaps mild COVID pneumonia (has cough, etc) cont supportive care decadron - mainly using this for her back, but will help her lungs to some extent Requires 10 days in isolation. (4) Chronic respiratory failure with hypoxia: Plan: typically on 2L NC O2 continuously at home, but has been stable in RA at rest [id number] suspect she will need O2 w/ activity as previous (5) Chronic diastolic heart failure: Plan: continue home regimen compensated (6) Rheumatoid arthritis: Plan: typically on chronic prednisone and plaquenil using decadron for back & stress dose purposes no RA flare at this time finish 10-day decadron course, then resume her normal prednisone dosing (7) CKD (chronic kidney disease), stage III: Plan: stage 3b baseline CrCl 30s/low 40s Cr stable (8) Colostomy present: Plan: no issues good stool output (9) Hypothyroidism: Plan: TSH minimally depressed would leave synthroid dose as is repeat a TSH in 6 weeks post-d/c (10) SLE (systemic lupus erythematosus): Plan: cont plaquenil 200mg daily cont steroids no SLE flare (11) Acute metabolic encephalopathy: Plan: 2nd to COVID-19, etc improved / resolved Plan: PT, OT evals appreciated cont PT, OT as tolerated - 50-60% functional loss documented; has caregivers during the day, but is alone at night may need rehabbing post-d/c spoke with daughter who lives in [place], [place] on 05/04/21 and 05/07/21 full update given, questions answered told her that her mother has fatigue, anorexia related to the COVID and could last another week or longer may need rehab for shoulder pain b/l - voltaren gel 4gm qid prn Admission and Anticipated Discharge Date Admission Date: May 01, 2021 Subjective Patient reports no new symtoms. Review of Systems Review of Systems: All systems reviewed & are unremarkable except as noted in HPI & below Physical Exam Physical Exam: gen - NAD, oriented to person/place/time; best she has looked over the last few days neck - no JVD heart - RRR, s1 s2, no murmur lungs - mildly decreased BS b/l, no wheeze, no obvious rales abd - modestly distended but NT, colostomy with bag in place w/ brown stool, BS+ ext - no edema, pulses 2+ b/l neuro - strength b/l legs 5/5; arms 5/5 psych: [id number] Results & Data Results & Data ([facility]) Vital Signs (Past 12 Hours) Vital Signs Temp Pulse Resp BP Pulse Ox 05/10/21 12:06 36.5 C 94 H 16 176/80 H 95 PG Care Time/CCT Total # of Minutes Spent Total Time Spent with Patient: Total time spent is greater than 50% in coordin ation of care (as documented) at patient's floor/unit and/or counseling patient: Coding Level of Care Code 76609 Subseq Hosp Care Lvl 2 Diagnoses Compression fracture UTI (urinary tract infection) N39.0 COVID U07.1 Chronic respiratory failure with hypoxia J96.11 Chronic diastolic heart failure I50.32 Rheumatoid arthritis M06.9 CKD (chronic kidney disease), stage III N18.32 Chronic kidney disease stage 3 subtype: stage 3b (GFR 30-44) Colostomy present Z93.3 Hypothyroidism E03.9 SLE (systemic lupus erythematosus) M32.9 Acute metabolic encephalopathy G93.41 Time Spent (min) 25 (1) CKD (chronic kidney disease), stage III Chronic kidney disease stage 3 subtype: stage 3b (GFR 30-44) Qualified Code(s): N18.32 - Chronic kidney disease, stage 3b
[2021-05-10] MEDS: FAMOTIDINE 40 MG TABLET PO SCH (20:28)
[2021-05-10] MEDS: LIDOCAINE 5% 1 PATCH TD SCH (20:29)
[2021-05-10] MEDS: PRAZOSIN HCL 1 MG CAP PO SCH (20:30)
[2021-05-10] MEDS: QUEtiapine FUMARATE 200 MG TAB PO SCH (20:31)
[2021-05-11] MEDS: LEVOTHYROXINE SODIUM 88 MCG TABLET PO SCH (06:31)
[2021-05-11] MEDS: ACETAMINOPHEN 500 MG TAB PO SCH ×3 (09:00→20:40)
[2021-05-11] MEDS: oxyCODONE HCL IR 5 MG TAB (IMMEDIATE RELEASE) PO SCH ×3 (09:00→20:41)
[2021-05-11] MEDS: CALCITONIN SALMON NA 200 IU/AC 3.7 ML BTL SCH (09:01)
[2021-05-11] MEDS: DICLOFENAC SOD 1% GEL 100 GM TUBE EXT SCH ×4 (09:01→20:41)
[2021-05-11] MEDS: CLOPIDOGREL BISULFATE 75 MG TAB PO SCH (09:03)
[2021-05-11] MEDS: CYANOCOBALAMIN 500 MCG TABLET (VITAMIN B-12) PO SCH (09:03)
[2021-05-11] MEDS: dexAMETHasone 4 MG TAB PO SCH (09:03)
[2021-05-11] MEDS: DULoxetine HCL 30 MG CAP PO SCH (09:04)
[2021-05-11] MEDS: DULoxetine HCL 60 MG CAP PO SCH (09:04)
[2021-05-11] MEDS: GABAPENTIN 300 MG CAP PO SCH ×3 (09:04→20:43)
[2021-05-11] MEDS: MIDODRINE HCL 2.5 MG TAB PO SCH (09:05)
[2021-05-11] MEDS: MIRABEGRON ER 25 MG TAB PO SCH (09:05)
[2021-05-11] MEDS: HYDROXYCHLOROQUINE SULFATE 200 MG TAB PO SCH (09:05)
[2021-05-11] MEDS: PANTOprazole 40 MG TAB PO SCH (09:06)
[2021-05-11] MEDS: ATORVASTATIN 40 MG TAB PO SCH (12:28)
[2021-05-11] MEDS: LIDOCAINE 5% 1 PATCH TD SCH (20:42)
[2021-05-11] MEDS: FAMOTIDINE 40 MG TABLET PO SCH (20:43)
[2021-05-11] MEDS: PRAZOSIN HCL 1 MG CAP PO SCH (20:43)
[2021-05-11] MEDS: QUEtiapine FUMARATE 200 MG TAB PO SCH (20:44)
--- NOTE | 2021-05-11 20:56 | Hospitalist Progress Note ---
Date of Service May 11, 2021 Assessment & Plan (1) Compression fracture: Plan: L3 Osteoporotic fracture from fall about 1 week prior to admission pain largely unchanged 25-OH vit D level robust (50) cont scheduled tylenol 1gm TID cont lidoderm patches cont oxycodone 10mg TID (this is a chronic med for her) cont calcitonin nasal spray cont decadron 6mg - today is day #8; convert IV to PO; plan 10 days in total then resume her normal chronic prednisone dose that she takes for RA (2) UTI (urinary tract infection): Plan: h/o recurrent UTI, specifically h/o ESBL Klebsiella completed 7 days of Ertapenem urine cx with klebsiella, e.coli, and alpha strep - sensitive to ertapenem (3) COVID: Plan: received full vaccination in spring time thus -- "breakthrough case" thus far "mild" symptoms only although has severe weakness & fatigue. further, although no hypoxia, she has b/l rales on exam today - perhaps mild COVID pneumonia (has cough, etc) cont supportive care decadron - mainly using this for her back, but will help her lungs to some extent Requires 10 days in isolation. Patient will be removed on 05/12 Patient is not having symptoms of COVID 19. (4) Chronic respiratory failure with hypoxia: Plan: typically on 2L NC O2 continuously at home, but has been stable in RA at rest ogvo-tju-ants suspect she will need O2 w/ activity as previous (5) Chronic diastolic heart failure: Plan: continue home regimen compensated (6) Rheumatoid arthritis: Plan: typically on chronic prednisone and plaquenil using decadron for back & stress dose purposes no RA flare at this time finish 10-day decadron course, then resume her normal prednisone dosing (7) CKD (chronic kidney disease), stage III: Plan: stage 3b baseline CrCl 30s/low 40s Cr stable (8) Colostomy present: Plan: no issues good stool output (9) Hypothyroidism: Plan: TSH minimally depressed would leave synthroid dose as is repeat a TSH in 6 weeks post-d/c (10) SLE (systemic lupus erythematosus): Plan: cont plaquenil 200mg daily cont steroids no SLE flare (11) Acute metabolic encephalopathy: Plan: 2nd to COVID-19, etc Delirium may be from above vs extended hospital stay. will monitor. Plan: PT, OT evals appreciated cont PT, OT as tolerated - 50-60% functional loss documented; has caregivers during the day, but is alone at night may need rehabbing post-d/c spoke with daughter who lives in [place], [place] on 05/04/21 and 05/07/21 full update given, questions answered told her that her mother has fatigue, anorexia related to the COVID and could last another week or longer may need rehab for shoulder pain b/l - voltaren gel 4gm qid prn Admission and Anticipated Discharge Date Admission Date: May 01, 2021 Subjective Patient remains intermittently confused. Review of Systems Review of Systems: All systems reviewed & are unremarkable except as noted in HPI & below Physical Exam Physical Exam: gen - NAD, oriented to person/place/time; best she has looked over the last few days neck - no JVD heart - RRR, s1 s2, no murmur lungs - mildly decreased BS b/l, no wheeze, no obvious rales abd - modestly distended but NT, colostomy with bag in place w/ brown stool, BS+ ext - no edema, pulses 2+ b/l neuro - strength b/l legs 5/5; arms 5/5 psych: [id number] Results & Data Results & Data ([facility]) Vital Signs (Past 12 Hours) Vital Signs Temp Pulse Resp BP Pulse Ox 05/11/21 17:27 36.5 C 95 H 16 184/77 H 94 PG Care Time/CCT Total # of Minutes Spent Total Time Spent with Patient: Total time spent is greater than 50% in coordination of care (as documented) at patient's floor/unit and/or counseling patient: Coding Level of Care Code 08539 Subseq Hosp Care Lvl 2 Diagnoses Compression fracture UTI (urinary tract infection) N39.0 COVID U07.1 Chronic respiratory failure with hypoxia J96.11 Chronic diastolic heart failure I50.32 Rheumatoid arthritis M06.9 CKD (chronic kidney disease), stage III N18.32 Chronic kidney disease stage 3 subtype: stage 3b (GFR 30-44) Colostomy present Z93.3 Hypothyroidism E03.9 SLE (systemic lupus erythematosus) M32.9 Acute metabolic encephalopathy G93.41 Time Spent (min) 25 (1) CKD (chronic kidney disease), stage III Chronic kidney disease stage 3 subtype: stage 3b (GFR 30-44) Qualified Code(s): N18.32 - Chronic kidney disease, stage 3b
[2021-05-12] MEDS: LEVOTHYROXINE SODIUM 88 MCG TABLET PO SCH (06:31)
[2021-05-12] MEDS: DICLOFENAC SOD 1% GEL 100 GM TUBE EXT SCH ×2 (08:38→12:42)
[2021-05-12] MEDS: CALCITONIN SALMON NA 200 IU/AC 3.7 ML BTL SCH (08:39)
[2021-05-12] MEDS: CLOPIDOGREL BISULFATE 75 MG TAB PO SCH (08:43)
[2021-05-12] MEDS: MIRABEGRON ER 25 MG TAB PO SCH (08:43)
[2021-05-12] MEDS: GABAPENTIN 300 MG CAP PO SCH ×2 (08:43→15:03)
[2021-05-12] MEDS: MIDODRINE HCL 2.5 MG TAB PO SCH (08:43)
[2021-05-12] MEDS: CYANOCOBALAMIN 500 MCG TABLET (VITAMIN B-12) PO SCH (08:43)
[2021-05-12] MEDS: DULoxetine HCL 60 MG CAP PO SCH (08:43)
[2021-05-12] MEDS: PANTOprazole 40 MG TAB PO SCH (08:43)
[2021-05-12] MEDS: HYDROXYCHLOROQUINE SULFATE 200 MG TAB PO SCH (08:43)
[2021-05-12] MEDS: DULoxetine HCL 30 MG CAP PO SCH (08:44)
[2021-05-12] MEDS: ACETAMINOPHEN 500 MG TAB PO SCH ×2 (08:47→15:04)
[2021-05-12] MEDS: oxyCODONE HCL IR 5 MG TAB (IMMEDIATE RELEASE) PO SCH ×2 (08:48→15:04)
[2021-05-12] MEDS: ATORVASTATIN 40 MG TAB PO SCH (12:42)
--- NOTE | 2021-05-12 13:47 | Hospitalist Progress Note ---
Date of Service May 12, 2021 Assessment & Plan (1) Acute metabolic encephalopathy: Plan: 2nd to COVID-19, etc, though unclear what her baseline is. Delirium may be from above vs extended hospital stay. - Presently confused about being in the hospital, current issues. (2) Compression fracture: Plan: L3 osteoporotic fracture from fall about 1 week prior to admission. - Cont scheduled tylenol 1gm TID, Lidoderm patches, Oxycodone 10mg TID (this is a chronic med for her) - Cont calcitonin nasal spray - Resume her normal chronic prednisone dose that she takes for RA (3) UTI (urinary tract infection): Plan: H/o recurrent UTI, specifically h/o ESBL Klebsiella. - Completed 7 days of Ertapenem (4) COVID: Plan: Received full vaccination in spring time, thus -- "breakthrough case." Mild symptoms and by 05/12, asymptomatic. - Required 10 days in isolation; finished on 05/12. (5) Chronic respiratory failure with hypoxia: Plan: Typically on 2L NC O2 continuously at home, but has been stable in RA at rest. - Nonetheless suspect she will need O2 w/ activity as previous (6) Chronic diastolic heart failure: Plan: continue home regimen compensated (7) Rheumatoid arthritis: Plan: No RA flare at this time. - Typically on chronic prednisone and Plaquenil. (8) CKD (chronic kidney disease), stage III: Plan: stage 3b baseline CrCl 30s/low 40s Cr stable (9) Colostomy present: Plan: no issues good stool output (10) Hypothyroidism: Plan: TSH minimally depressed would leave synthroid dose as is repeat a TSH in 6 weeks post-d/c (11) SLE (systemic lupus erythematosus): Plan: cont plaquenil 200mg daily cont steroids no SLE flare Admission and Anticipated Discharge Date Admission Date: May 01, 2021 Physical Exam Constitutional: WD/WN, vitals as above Eyes: EOM intact bilaterally; no conjunctival abnormality ENMT: external ear and nose normal, oropharynx normal Neck: trachea midline, no thyromegaly normal visual inspection Respiratory: normal respiratory effort, lungs clear to auscultation no respiratory distress Cardiovascular: RRR, no murmur, no edema Gastrointestinal (Abdomen): Inspection/Auscultation: abdomen normal to inspection; abdomen not distended Musculoskeletal: no cyanosis or clubbing, extremities motor strength 5/5 Skin: no rashes, warm and dry Neurologic: moves all extremities and awake Psychiatric: Orientation: alert, oriented to person and cooperative Results & Data Results & Data ([facility]) Vital Signs (Past 12 Hours) Vital Signs Temp Pulse Resp BP Pulse Ox 05/12/21 08:34 36.5 C 95 H 18 150/81 H 92 PG Care Time/CCT Total # of Minutes Spent Total Time Spent with Patient: Total time spent is greater than 50% in coordination of care (as documented) at patient's floor/unit and/or counseling patient: Coding Level of Care Code 88929 Subseq Hosp Care Lvl 2 Diagnoses Compression fracture UTI (urinary tract infection) N39.0 COVID U07.1 Chronic respiratory failure with hypoxia J96.11 Chronic diastolic heart failure I50.32 Rheumatoid arthritis M06.9 CKD (chronic kidney disease), stage III N18.32 Chronic kidney disease stage 3 subtype: stage 3b (GFR 30-44) Colostomy present Z93.3 Hypothyroidism E03.9 SLE (systemic lupus erythematosus) M32.9 Acute metabolic encephalopathy G93.41 (1) CKD (chronic kidney disease), stage III Chronic kidney disease stage 3 subtype: stage 3b (GFR 30-44) Qualified Code(s): N18.32 - Chronic kidney disease, stage 3b
--- NOTE | 2021-05-12 21:13 | Discharge Summary ---
Date of Service May 12, 2021 Admission HPI Per Admitting Provider 89 y/o F with an extensive medical Hx including HTN, HLD, hypothyroidism, anemia, adrenal insufficiency, RA, chronic hypoxia, CAD, diastolic CHF, recurrent ESBL UTI. Presents with weakness, fevers, SOB and abdominal di scomfort. The pt reported recent COVID. She denies a productive cough. She uses 2-3 liters 02 continuous at home which has not changed. She was febrile on arrival to the ER. She tested + for COVID and her UA was + as well. Labs were otherwise reflective of her baseline. A CT abdomen demonstrated an L3 fracture which is subacute and coincides with her back pain and a fall she suffered on week ago. PMH: 1) HTN 2) HLD 3) RA 4) Diastolic CHF 5) Recurrent ESBL UTIs 6) Hypothyroidism 7) Adrenal insufficiency 8) Anemia - baseline Hb 1.5 Surgical: 1) Colectomy and colostomy 2) Cholecystectomy Social: Does not drink or smoke Family: Noncontributory due to pt age Principal Diagnosis Confusion, Covid-19 Discharge Exam Constitutional WD/WN, vitals as above Eyes EOM intact bilaterally; no conjunctival abnormality ENMT external ear and nose normal, oropharynx normal Neck trachea midline, no thyromegaly normal visual inspection Respiratory normal respiratory effort, lungs clear to auscultation no respiratory distress Cardiovascular RRR, no murmur, no edema Gastrointestinal (Abdomen) Inspection/Auscultation: abdomen normal to inspection; abdomen not distended Musculoskeletal no cyanosis or clubbing, extremities motor strength 5/5 Skin no rashes, warm and dry Neurologic moves all extremities and awake Psychiatric Orientation: alert, oriented to person and cooperative Discharge Data Allergies Allergy/AdvReac Type Severity Reaction Status Date / Time nitrofurantoin Allergy Severe HIVES Verified 05/01/21 16:01 scallops Allergy Severe THROAT Verified 05/01/21 16:01 SWELLS ciprofloxacin Allergy Intermediate HIVES Verified 05/01/21 16:01 latex Allergy Intermediate RASH Verified 05/01/21 16:01 Quinolones Allergy Intermediate HIVES Verified 05/01/21 16:01 fluticasone Allergy Unknown ADVAIR-UNKN Verified 05/01/21 16:01 OWN salmeterol Allergy Unknown ADVAIR Verified 05/01/21 16:01 celecoxib AdvReac Intermediate barretts Verified 05/01/21 16:01 esophagus lactose AdvReac Intermediate GI UPSET Verified 05/01/21 16:01 morphine AdvReac Intermediate NAUSEA AND Verified 05/01/21 16:01 VOMITING Consultations 05/01/21 16:38 ED Decision to Admit Stat Ordered Studies 05/01/21 14:27 CT abd pelvis IV con only Stat Hospital Course (1) Acute metabolic encephalopathy: 2nd to COVID-19, etc, though unclear what her baseline is. Delirium may be from above vs extended hospital stay. - Presently confused about being in the hospital, current issues. - Daughter says her baseline is oriented and able to carry out conversations. (2) Compression fracture: L3 osteoporotic fracture from fall about 1 week prior to admission. - Cont scheduled tylenol 1gm TID, Lidoderm patches, Oxycodone 10mg TID (this is a chronic med for her) - Cont calcitonin nasal spray - Resume her normal chronic prednisone dose that she takes for RA (3) UTI (urinary tract infection): H/o recurrent UTI, specifically h/o ESBL Klebsiella. - Completed 7 days of Ertapenem (4) COVID: Received full vaccination in spring time, thus -- "breakthrough case." Mild symptoms and by 05/12, asymptomatic. - Required 10 days in isolation; finished on 05/12. (5) Chronic respiratory failure with hypoxia: Typically on 2L NC O2 continuously at home, but has been stable in RA at rest. - Nonetheless suspect she will need O2 w/ activity as previous (6) Chronic diastolic heart failure: continue home regimen compensated (7) Rheumatoid arthritis: No RA flare at this time. - Typically on chronic prednisone and Plaquenil. (8) CKD (chronic kidney disease), stage III: stage 3b baseline CrCl 30s/low 40s Cr stable (9) Colostomy present: no issues good stool output (10) Hypothyroidism: TSH minimally depressed would leave synthroid dose as is repeat a TSH in 6 weeks post-d/c (11) SLE (systemic lupus erythematosus): cont plaquenil 200mg daily cont steroids no SLE flare I certify that this patient is under my care and that I, or a physicians fleet administrative assistant working with me, had a face to-face encounter that meets the home health [id number] encounter requirements with this patient. The encounter with the patient was in whole, or in part, for the following medical condition, which is the primary reason for home health care (list medica l condition): COVID, UTI I certify that, based on my findings, the following services are medically necessary home health services: My clinical findings support the need for the above services because: OT Assess ADL Status and Restore Function w ADLs PT Gait and Balance Training, Strengthening and Safety Further, I certify that my clinical findings support that this patient is homebound (i.e. absences from home require considerable and taxing effort and are for medical reasons or religion services or infrequently or of short duration when for other reasons) because: Assistance of 1 Person for Ambulation/Activities Supportive Aid - Walker Transportation Assistance/Unable to Leave Home Unassisted Certification for Home Health Services: Based on the above findings, I certify that this patient is confined to the home and needs intermittent usp care, physical therapy and/or speech therapy or continues to need occupational therapy. The patient is under my care, and I have initiated the establishment of the plan of care. This patient will be followed by a physician who will periodically review the plan of care. Total Time Total Time Spent Total Time Spent (In Minutes): 30 Discharge Plan Discharge Items Patient Disposition: Home - Home Health Services Reason For Visit: COVID, UTI Discharge Diagnosis: Covid, UTI Activity: Resume your previous activity Non-emergency contact: Primary Care Provider Call non-emergency contact if: your symptoms worsen, your pain is not controlled and your rectal temperature is above 100.4 Follow-up/Referrals: Nidhi Gardner MD [Primary Care Provider] - (Dr Dale office will phone you with a follow up appointment.) Diet: Regular Addtl Attending Provider Instructions: Ms. Rouse was admitted and found to have Covid and a UTI. The Covid was treated with steroids and may still be present with some confusion, but her breathing is back to baseline. The UTI was treated with IV antibiotics while she was in the hospital. Please see Dr. Gardner in the next 1-2 weeks to be sure the confusion is resolving and that Ms. Neal is getting back to baseline. Pending Studies at Discharge: No Stand-Alone Forms: My [facility]link, Smoking Cessation Medications and DC Order Prescriptions: New diclofenac sodium [Voltaren Arthritis Pain] 1 % Gel 4 g EXT QID PRN (Reason: back pain) Qty: 100 RF: 0 Continued nitroglycerin 0.4 mg tablet, sublingual 0.4 mg SL Q5M PRN (Reason: chest pain) Qty: 1 RF: 0 cholecalciferol (vitamin D3) 2,000 unit capsule 2,000 units PO QAM RF: 0 lidocaine 5 % adhesive patch,medicated 1 patch TOP DAILY PRN (Reason: Lumbar pain) Qty: 30 RF: 5 ondansetron 8 mg tablet,disintegrating 8 mg PO Q6H PRN (Reason: Nausea) Qty: 20 RF: 0 diclofenac sodium [Voltaren] 1 % gel 4 g TOP QID MDD 16G to any one affected joint PRN (Reason: Pain) Qty: 300 RF: 3 Myrbetriq 50 mg tablet extended release 24 hr 50 mg PO DAILY Qty: 90 RF: 1 prednisone 10 mg tablet 10 mg PO QAM Qty: 90 RF: 1 clopidogrel [Plavix] 75 mg tablet 75 mg PO QAM Qty: 90 RF: 3 atorvastatin 40 mg tablet 40 mg PO QDL Qty: 90 RF: 1 duloxetine 30 mg capsule,delayed release(DR/EC) 30 mg PO QAM Qty: 90 RF: 1 duloxetine [Cymbalta] 60 mg capsule,delayed release(DR/EC) 60 mg PO QAM Qty: 90 RF: 1 famotidine 40 mg tablet 40 mg PO HS Qty: 90 RF: 1 fluticasone propionate [Flonase Allergy Relief] 50 mcg/actuation spray,suspension 2 spray INTRANASAL QAM PRN (Reason: Congestion) Qty: 15.8 RF: 3 hydroxychloroquine 200 mg tablet 200 mg PO QAM Qty: 90 RF: 1 prazosin 1 mg capsule 1 mg PO HS Qty: 90 RF: 1 quetiapine 200 mg tablet 200 mg PO HS Qty: 90 RF: 1 levothyroxine [Synthroid] 88 mcg tablet 88 mcg PO QAM Qty: 90 RF: 1 Dexilant 60 mg capsule,biphase delayed releas 60 mg PO QAM Qty: 90 RF: 1 cyanocobalamin (vitamin B-12) [Vitamin B-12] 1,000 mcg Tablet 1,000 mcg PO QAM RF: 0 Ocuvite with Lutein 1,000 unit-200 mg-60 unit-2 mg Tablet 1 tab PO QAM RF: 0 gabapentin 300 mg capsule 300 mg PO TID RF: 0 vitamin B complex Tablet 1 tab PO QAM RF: 0 Azo Urinary Pain Relief 97.5 mg Tablet 97.5 mg PO TID PRN (Reason: URINARY PAIN) RF: 0 polyethylene glycol 3350 [Miralax] 17 gram powder in packet 17 gm PO QAM Qty: 1 RF: 0 fexofenadine 60 mg Capsule 60 mg PO QAM RF: 0 acetaminophen [Tylenol Extra Strength] 500 mg Tablet 1,000 mg PO Q6H PRN (Reason: Pain) RF: 0 midodrine 5 mg tablet 5 mg PO QAM RF: 0 calcitonin (salmon) 200 unit/actuation spray,non-aerosol 1 spray intranasal QAM RF: 0 oxycodone 10 mg tablet 10 mg PO TID RF: 0 Discharge Orders: Discharge Order (Routine); Ordered 05/12/21 Ordered By: Everardo Whitt/Other Patient Handouts: Urinary Tract Infections in Women Admission Data Admit Date/Time: 05/01/21 17:47 Attending Provider: Everardo Buenrostro Admit Provider: Zach Hobbs Primary Care Provider: Nidhi Gardner Other Providers: [employer] [employer] ; Everardo Buenrostro Other Interventions: Discharge Summary Assessment (RN) Last Done: 05/12/21 14:39 Coding Level of Care Code D/C DAY MANAGEMENT >30 MINS Diagnoses Acute metabolic encephalopathy G93.41 Compression fracture UTI (urinary tract infection) N39.0 COVID U07.1 Chronic respiratory failure with hypoxia J96.11 Chronic diastolic heart failure I50.32 Rheumatoid arthritis M06.9 CKD (chronic kidney disease), stage III N18.32 Chronic kidney disease stage 3 subtype: stage 3b (GFR 30-44) Colostomy present Z93.3 Hypothyroidism E03.9 SLE (systemic lupus erythematosus) M32.9
[2021-05-13] MEDS ORDERED: predniSONE 10 MG TABLET PO SCH (09:00)
== END 2021-05-12 15:25 | disposition home health service (06) | DRG 177 ==
LOC: ED 13:34 → 2S 17:47 → SUATTDRO 17:47 → 2S 19:59 → 2W 05-05 14:04 → 3E 05-07 20:44

== ENCOUNTER 2021-05-13 13:26 | Inpatient (IN) ==
[2021-05-13 14:33] LABS: Basophils # (auto) 0.04 K/uL (0-0.2); Basophils % (auto) 0.2 %; Eosinophils # (auto) 0.22 K/uL (0-0.5); Eosinophils % (auto) 1.2 %; Hematocrit (blood only) 34.2 % (37-47); Hemoglobin 10.3 g/dL (12.0-16.0); Immature Granulocytes # (auto) 0.46 K/uL (0.00-0.02); Immature Granulocytes % (auto) 2.4 %; Lymphocytes # (auto) 0.92 K/uL (1.2-3.4); Lymphocytes % (auto) 4.9 %; Mean Corpuscular Hemoglobin 26.2 pg (25-34); Mean Corpuscular Hgb Conc 30.1 g/dL (32-36); Mean Platelet Volume 9.6 fL (7.4-10.4); Monocytes % (auto) 10.6 %; Neutrophils # (auto) 15.23 K/uL (1.4-6.5); Neutrophils % (auto) 80.7 %; Platelet Count 298 K/uL (130-400); RDW Coefficient of Variation 16.2 % (11.5-14.5); RDW Standard Deviation 51.9 fL (36.4-46.3); Red Blood Count 3.93 M/uL (4.2-5.4); White Blood Count 18.87 K/uL (4.8-10.8)
[2021-05-13 14:51] LABS: Alanine Aminotransferase 220 U/L (12-78); Aspartate Aminotransferase 103 U/L (15-37); BUN Creatinine Ratio 28.3 (10-20); Blood Urea Nitrogen 41 mg/dl (7-18); Calcium 8.5 mg/dl (8.5-10.1); Carbon Dioxide 26 mmol/L (21-32); Chloride 105 mmol/L (98-107); Est GFR (African American) 36.9 ml/min; Est GFR (Non-African American) 31.8 ml/min; Glucose 153 mg/dl (70-99); Potassium 4.3 mmol/L (3.5-5.1); Sodium 138 mmol/L (136-145)
[2021-05-13 14:54] LABS: Albumin Globulin Ratio 0.8 (0.9-2); Alkaline Phosphatase 160 U/L (45-117); Bilirubin,Total 0.4 mg/dl (0.2-1); Globulin 3.6 gm/dl (2.5-4.0); Total Protein 6.6 gm/dl (6.4-8.2)
[2021-05-13] MEDS ORDERED: CEFEPIME 2,000 MG/20 ML VIAL IV STA (15:07)
[2021-05-13] MEDS ORDERED: SODIUM CHLORIDE 0.9% 1000ML 1,000 ML IV ONE (15:07)
--- NOTE | 2021-05-13 15:21 | Emergency Department Note ---
Impression & Plan Weakness, Lethargy, STERLING (acute kidney injury), Pneumonia, COVID-19 ED Provider Note NAME: SAIRA MCGARRY AGE: 89 SEX: F : 1930 ARRIVES VIA: Walk-In INFORMANT: [Patient][daughter] ED PROVIDER(S): [Bennett Brar MD] CHIEF COMPLAINT: Low blood pressure, weakness HISTORY OF PRESENT ILLNESS: The patient is an 89-year-old female who just left the hospital yesterday. She was admitted for fever and COVID-19. Yesterday evening after leaving the hospital, she seemed fatigued and tired. Today, she is confused, tired, sleeping. There has been no urine output all day long. The family has concerns for dehydration or recurrent infection in particular, UTI. The patient cannot give me any history. She is sleeping. She moans a bit when you try to talk with her. She does move all extremities. Given the mental state, no further history obtainable. REVIEW OF SYSTEMS: Unobtainable given her mental state. PMHx/PSHx: See Below SOCIAL HISTORY: See Below. PHYSICAL EXAM: GENERAL: Patient is in no acute distress. HEENT: No acute trauma, normocephalic atraumatic, mucous membranes moist, no nasal congestion, no scleral icterus. NECK: No stridor, no adenopathy, no meningismus, trachea is midline. LUNGS: Clear to auscultation bilaterally when listening anterior no wheeze, no rhonchi, breath sounds equal. HEART: Subtle systolic murmur, mildly tachycardic, regular rhythm. ABDOMEN: Soft, mildly diffusely tender, mild distention, bowel sounds positive, no hernias, no peritonitis. There is a left sided colostomy with hard stool in the bag. EXTREMITIES: No cyanosis or edema, full range of motion of all the joints without pain or difficulty, no signs for acute trauma. NEUROLOGIC: Sleeping, arouses to voice or touch, does move all extremities. SKIN: No rash, no jaundice, no diaphoresis. DIFFERENTIAL DIAGNOSIS: Infection, dehydration, metabolic abnormality, hypo/hyperglycemia, COVID-19, UTI, urinary retention, pneumonia, electrolyte disturbance, anemia, hypoxia, cardiac sources, intracerebral event, toxicologic issues, stroke, TIA, as well as other pathologies. EMERGENCY DEPARTMENT COURSE/PROCEDURES: ECG: Indication was weakness. The ECG shows a sinus tachycardia with a right bundle branch block. The rate is 105. There is some nonspecific ST change. No ST elevation, no PVCs. Compared to an ECG from 01 May 2021, the rate has increased. Continuous Cardiac Monitoring: An order was placed for continuous cardiac monitoring. The monitor shows a rate of 99 with normal sinus rhythm. Critical Care Note: I have personally spent 49 minutes of critical care time in the direct management of this patient. This includes bedside care, interpretation of diagnostic studies, and testing, discussion with consultants, patient, and family members, and other required patient management activities. This 49 minutes is in excess of all separately billable procedures. MEDICAL DECISION MAKING: There is a moderate leukocytosis of 18,000, this certainly could be consistent with infection. The patient is anemic with a hemoglobin of 10.3. The anemia is baseline looking back at previous testing. There is a normal platelet count. There is evidence for some acute kidney injury with a rise to her creatinine. Lactic acid level is not elevated making severe sepsis less likely. There were some elevated liver enzymes. The bilirubin though was normal. The patient appeared to be in a euthyroid state. ECG shows a sinus tachycardia, no acute ischemia. Cardiac enzyme testing x1 is not consistent with acute cardiac injury. Urinalysis does not show obvious infection. Covid testing returned positive. Chest xray showed a bilateral patchy pneumonia. Brain CT showed no acute bleed or mass-effect. Abdominal and pelvis CT did not show any acute surgical process. No bowel obstruction. The patient was given IV saline, 1 L. She received IV cefepime as empiric antibiotic coverage. The patient presents with lethargy, weakness, dehydration and acute kidney injury. She has a known Covid diagnosis. She has not done well since discharge yesterday. She certainly is not safe for discharge back home. A hospital stay is warranted. She may require a care facility at discharge as she is quite debilitated. I did speak with the patient and her daughter, I spoke with case management. The on-call hospitalist was consulted. Past Med/Surg History Medical History Adrenocortical insufficiency Allergic rhinitis Arteriosclerosis of coronary artery Asthma Balance problem Barretts esophagus Chronic back pain Chronic cystitis Chronic respiratory failure with hypoxia CKD (chronic kidney disease), stage III does not follow with nephrology Clostridium difficile carrier Colovaginal fistula ? 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 Long-term use of hydroxychloroquine Lumbar canal stenosis Major depressive disorder, recurrent 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 Nausea On home oxygen therapy 3 LPM cont Orthostatic hypotension Peripheral arterial disease Peripheral edema Peripheral neuropathy Polyarthritis Poor balance Pre-diabetes Presence of colostomy Rheumatoid arthritis Solitary pulmonary nodule Steroid-induced osteopenia TIA (transient ischemic attack) 2016 Urinary incontinence Urinary retention Surgical History H/O: hysterectomy HOLGER, BSO History of cardiac catheterization 2010 -- no stents/angioplasty -- [facility] - [facility] - dtr believes she follows w/ [facility] History of colon surgery sigmoid colon resection History of hip replacement bilateral 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 History of tooth extraction History of vascular surgery lower extremity unknown which leg- stents Hx of cholecystectomy Family History Grandmother (Maternal) Breast cancer Uterine cancer Father Cardiomyopathy Mother Alzheimer disease Son Colorectal cancer Daughter Breast cancer Other Cancer Diabetes Gallbladder disease Heart disease Hypertension No family history of adverse response to anesthesia Seizure Denies family history of Malignant hypothermia due to anesthesia Ovarian cancer Prostate cancer Crohn's disease Myocardial infarction Bleeding disorder Ulcerative colitis Social History Smoking Status: Never smoker Second Hand Exposure: No; Do You Dip or Chew Tobacco: No; Hx Alcohol Use: No Hx Substance Use: No Preferred Language: Azeri Communication Ability: Effective Visual Impairment: No Limitations Hearing Ability: Hard of Hearing Gatekeeper Required: No Beliefs That Will Affect Care: None marital status: / Current Living Situation: Alone Current Living Situation Comment: has caretakers during day current occupational status: retired How many Children do You have: 5 Other Information That Helps Us Care for You: No Feels Safe at Home: Yes Safety Concerns: Feels Safe At This Time Childhood Exposure to Second-Hand Smoke: Yes caffeine: Yes during the past year weight has: remained stable Dental Care, Regularly: Yes Physical Activity Frequency: Does not Exercise Seatbelt Use: always Sunscreen Use: Yes Do you think of yourself as: straight/heterosexual Assistive Devices: Oxygen - Continuous Allergies Allergies Allergy/AdvReac Type Severity Reaction Status Date / Time nitrofurantoin Allergy Severe HIVES Verified 05/13/21 14:23 scallops Allergy Severe THROAT Verified 05/13/21 14:23 SWELLS ciprofloxacin Allergy Intermediate HIVES Verified 05/13/21 14:23 latex Allergy Intermediate RASH Verified 05/13/21 14:23 Quinolones Allergy Intermediate HIVES Verified 05/13/21 14:23 fluticasone Allergy Unknown ADVAIR-UNKN Verified 05/13/21 14:23 OWN salmeterol Allergy Unknown ADVAIR Verified 05/13/21 14:23 celecoxib AdvReac Intermediate barretts Verified 05/13/21 14:23 esophagus lactose AdvReac Intermediate GI UPSET Verified 05/13/21 14:23 morphine AdvReac Intermediate NAUSEA AND Verified 05/13/21 14:23 VOMITING Home Meds Home Medications Medication Instructions Recorded Confirmed cholecalciferol (vitamin D3) 50 2,000 units PO QAM 07/07/18 05/13/21 mcg (2,000 unit) capsule cyanocobalamin (vitamin B-12) 1,000 mcg PO QAM 08/31/18 05/13/21 1,000 mcg tablet (Vitamin B-12) vit A 1,000 unit-C 200 mg-E 60 1 tab PO QAM 08/31/18 05/13/21 unit-lutein 2 mg and minerals tablet (Ocuvite with Lutein) gabapentin 300 mg capsule 300 mg PO TID 09/26/18 05/13/21 vitamin B complex 1 tab PO QAM 09/26/18 05/13/21 acetaminophen 500 mg tablet 1,000 mg PO Q6H PRN 01/03/19 05/13/21 (Tylenol Extra Strength) midodrine 5 mg tablet 5 mg PO QAM 02/17/21 05/13/21 calcitonin (salmon) 200 1 spray INTRANASAL QAM 05/01/21 05/13/21 unit/actuation nasal spray oxycodone 10 mg tablet 10 mg PO TID 05/01/21 05/13/21 diclofenac sodium 1 % topical gel 4 g EXT QID PRN MDD 16g 05/13/21 05/13/21 (Voltaren Arthritis Pain) fexofenadine 60 mg tablet 60 mg PO QAM 05/13/21 05/13/21 phenazopyridine 95 mg tablet 95 mg PO TID PRN 05/13/21 05/13/21 Previous Rx's Medication Instructions Recorded nitroglycerin 0.4 mg sublingual 0.4 mg SL Q5M PRN #1 tab 07/07/18 tablet polyethylene glycol 3350 17 gram 17 gm PO QAM #1 ea 11/25/19 oral powder packet (Miralax) lidocaine 5 % topical patch 1 patch TOP DAILY PRN #30 ea 03/26/20 ondansetron 8 mg disintegrating 8 mg PO Q6H PRN #20 tab 11/28/20 tablet mirabegron 50 mg tablet,extended 50 mg PO DAILY #90 tab 03/24/21 release 24 hr (Myrbetriq) prednisone 10 mg tablet 10 mg PO QAM #90 tab 04/22/21 clopidogrel 75 mg tablet (Plavix) 75 mg PO QAM #90 tab 04/23/21 Synthroid 88 mcg tablet 88 mcg PO QAM #90 tab NS 04/24/21 (levothyroxine) atorvastatin 40 mg tablet 40 mg PO QDL #90 tab 04/24/21 duloxetine 30 mg capsule,delayed 30 mg PO QAM #90 cap 04/24/21 release duloxetine 60 mg capsule,delayed 60 mg PO QAM #90 cap 04/24/21 release (Cymbalta) famotidine 40 mg tablet 40 mg PO HS #90 tab 04/24/21 fluticasone propionate 50 2 spray INTRANASAL QAM PRN #15.8 ml 04/24/21 mcg/actuation nasal spray,suspension (Flonase Allergy Relief) hydroxychloroquine 200 mg tablet 200 mg PO QAM #90 tab 04/24/21 prazosin 1 mg capsule 1 mg PO HS #90 cap 04/24/21 quetiapine 200 mg tablet 200 mg PO HS #90 tab 04/24/21 dexlansoprazole 60 mg 60 mg PO QAM #90 cap 04/25/21 capsule,biphase delayed release (Dexilant) Results & Data (ED) Vital Signs Vital Signs - 24 hr 05/13/21 13:30 05/13/21 14:06 05/13/21 15:15 Temperature 37.0 C Temperature Source Temporal Artery Scan Pulse Rate 108 H 104 H 99 H Respiratory Rate 20 18 20 Respiratory Effort / Characteristics Non-Labored Respiratory Depth Normal Blood Pressure 132/69 127/55 L 120/50 L Blood Pressure Mean 90 79 73 Blood Pressure Position Sitting Pulse Oximetry 98 98 Oxygen Delivery Method Room Air Sepsis Recent Fever Within 48 Hours No Sepsis New/Unexplained Change in Mental Status No Sepsis Action Taken by Nursing No Action Required 05/13/21 17:15 Temperature Temperature Source Pulse Rate 92 H Respiratory Rate 20 Respiratory Effort / Characteristics Respiratory Depth Blood Pressure 115/72 Blood Pressure Mean 86 Blood Pressure Position Pulse Oximetry 98 Oxygen Delivery Method Sepsis Recent Fever Within 48 Hours Sepsis New/Unexplained Change in Mental Status Sepsis Action Taken by Skilled Nursing Medications Current Medication List: was personally reviewed by me Laboratory Data Attestation: I reviewed the patient's lab results. Result diagrams: 05/13/21 14:18 05/13/21 14:18 Lab Results 05/13/21 05/13/21 05/13/21 Range/Units 14:18 14:18 14:18 WBC 18.87 H (4.8-10.8) K/uL RBC 3.93 L (4.2-5.4) M/uL Hgb 10.3 L (12.0-16.0) g/dL Hct 34.2 L (37-47) % MCV 87.0 (80-100) fL MCH 26.2 (25-34) pg MCHC 30.1 L (32-36) g/dL RDW Std Deviation 51.9 H (36.4-46.3) fL RDW Coeff of Omar 16.2 H (11.5-14.5) % Plt Count 298 (130-400) K/uL MPV 9.6 (7.4-10.4) fL Immature Gran % (Auto) 2.4 % Neut % (Auto) 80.7 % Lymph % (Auto) 4.9 % [place] % (Auto) 10.6 % Eos % (Auto) 1.2 % Baso % (Auto) 0.2 % Neut # (Auto) 15.23 H (1.4-6.5) K/uL Lymph # (Auto) 0.92 L (1.2-3.4) K/uL [place] # (Auto) 2.00 H (0.11-0.59) K/uL Eos # (Auto) 0.22 (0-0.5) K/uL Baso # (Auto) 0.04 (0-0.2) K/uL Immature Gran # (Auto) 0.46 H (0.00-0.02) K/uL Sodium 138 (136-145) mmol/L Potassium 4.3 (3.5-5.1) mmol/L Chloride 105 (98-107) mmol/L Carbon Dioxide 26 (21-32) mmol/L Anion Gap 7.0 (3-11) BUN 41 H (7-18) mg/dl Creatinine 1.46 H (0.6-1.2) mg/dl Est Cr Clr Drug Dosing Not Reportable Est GFR ( Amer) 36.9 ml/min Est GFR (Non-Af Amer) 31.8 ml/min BUN/Creatinine Ratio 28.3 H (10-20) Glucose 153 H (70-99) mg/dl Lactate (0.4-2.0) mmol/L Calcium 8.5 (8.5-10.1) mg/dl Magnesium 2.2 Cancelled (1.8-2.4) mg/dl Total Bilirubin 0.4 (0.2-1) mg/dl AST 103 H (15-37) U/L ALT 220 H (12-78) U/L Alkaline Phosphatase 160 H (45-117) U/L Troponin I < 0.015 Cancelled (0-0.045) ng/ml Total Protein 6.6 (6.4-8.2) gm/dl Albumin 3.0 L (3.4-5.0) gm/dl Globulin 3.6 (2.5-4.0) gm/dl Albumin/Globulin Ratio 0.8 L (0.9-2) TSH 0.526 Cancelled (0.300-4.500) uIu/ml Urine Color Urine Appearance (Clear) Urine pH (4.5-7.5) Ur Specific [place] (1.000-1.030) Urine Protein (Negative) Urine Glucose (UA) (Negative) Urine Ketones (Negative) Urine Blood (Negative) Urine Nitrite (Negative) Urine Bilirubin (Negative) Urine Urobilinogen (Negative) Ur Leukocyte Esterase (Negative) Urine WBC (Auto) (0-5) /hpf Urine RBC (Auto) (0-4) /hpf U Hyaline Cast (Auto) (0-5) /lpf U Epithel Cells (Auto) (0-5) /lpf Urine Bacteria (Auto) (Negative) Ur Renal Epithelial Cell COVID-19 Eval Order SARS-CoV-2 (PCR) (Negative) 05/13/21 05/13/21 05/13/21 Range/Units 15:24 15:24 15:36 WBC (4.8-10.8) K/uL RBC (4.2-5.4) M/uL Hgb (12.0-16.0) g/dL Hct (37-47) % MCV (80-100) fL MCH (25-34) pg MCHC (32-36) g/dL RDW Std Deviation (36.4-46.3) fL RDW Coeff of Omar (11.5-14.5) % Plt Count (130-400) K/uL MPV (7.4-10.4) fL Immature Gran % (Auto) % Neut % (Auto) % Lymph % (Auto) % [place] % (Auto) % Eos % (Auto) % Baso % (Auto) % Neut # (Auto) (1.4-6.5) K/uL Lymph # (Auto) (1.2-3.4) K/uL [place] # (Auto) (0.11-0.59) K/uL Eos # (Auto) (0-0.5) K/uL Baso # (Auto) (0-0.2) K/uL Immature Gran # (Auto) (0.00-0.02) K/uL Sodium (136-145) mmol/L Potassium (3.5-5.1) mmol/L Chloride (98-107) mmol/L Carbon Dioxide (21-32) mmol/L Anion Gap (3-11) BUN (7-18) mg/dl Creatinine (0.6-1.2) mg/dl Est Cr Clr Drug Dosing Est GFR ( Amer) ml/min Est GFR (Non-Af Amer) ml/min BUN/Creatinine Ratio (10-20) Glucose (70-99) mg/dl Lactate 1.1 (0.4-2.0) mmol/L Calcium (8.5-10.1) mg/dl Magnesium (1.8-2.4) mg/dl Total Bilirubin (0.2-1) mg/dl AST (15-37) U/L ALT (12-78) U/L Alkaline Phosphatase (45-117) U/L Troponin I (0-0.045) ng/ml Total Protein (6.4-8.2) gm/dl Albumin (3.4-5.0) gm/dl Globulin (2.5-4.0) gm/dl Albumin/Globulin Ratio (0.9-2) TSH (0.300-4.500) uIu/ml Urine Color Urine Appearance (Clear) Urine pH (4.5-7.5) Ur Specific [place] (1.000-1.030) Urine Protein (Negative) Urine Glucose (UA) (Negative) Urine Ketones (Negative) Urine Blood (Negative) Urine Nitrite (Negative) Urine Bilirubin (Negative) Urine Urobilinogen (Negative) Ur Leukocyte Esterase (Negative) Urine WBC (Auto) (0-5) /hpf Urine RBC (Auto) (0-4) /hpf U Hyaline Cast (Auto) (0-5) /lpf U Epithel Cells (Auto) (0-5) /lpf Urine Bacteria (Auto) (Negative) Ur Renal Epithelial Cell COVID-19 Eval Order Covid19 at [facility] SARS-CoV-2 (PCR) POSITIVE A* (Negative) 05/13/21 Range/Units 16:30 WBC (4.8-10.8) K/uL RBC (4.2-5.4) M/uL Hgb (12.0-16.0) g/dL Hct (37-47) % MCV (80-100) fL MCH (25-34) pg MCHC (32-36) g/dL RDW Std Deviation (36.4-46.3) fL RDW Coeff of Omar (11.5-14.5) % Plt Count (130-400) K/uL MPV (7.4-10.4) fL Immature Gran % (Auto) % Neut % (Auto) % Lymph % (Auto) % [place] % (Auto) % Eos % (Auto) % Baso % (Auto) % Neut # (Auto) (1.4-6.5) K/uL Lymph # (Auto) (1.2-3.4) K/uL [place] # (Auto) (0.11-0.59) K/uL Eos # (Auto) (0-0.5) K/uL Baso # (Auto) (0-0.2) K/uL Immature Gran # (Auto) (0.00-0.02) K/uL Sodium (136-145) mmol/L Potassium (3.5-5.1) mmol/L Chloride (98-107) mmol/L Carbon Dioxide (21-32) mmol/L Anion Gap (3-11) BUN (7-18) mg/dl Creatinine (0.6-1.2) mg/dl Est Cr Clr Drug Dosing Est GFR ( Amer) ml/min Est GFR (Non-Af Amer) ml/min BUN/Creatinine Ratio (10-20) Glucose (70-99) mg/dl Lactate (0.4-2.0) mmol/L Calcium (8.5-10.1) mg/dl Magnesium (1.8-2.4) mg/dl Total Bilirubin (0.2-1) mg/dl AST (15-37) U/L ALT (12-78) U/L Alkaline Phosphatase (45-117) U/L Troponin I (0-0.045) ng/ml Total Protein (6.4-8.2) gm/dl Albumin (3.4-5.0) gm/dl Globulin (2.5-4.0) gm/dl Albumin/Globulin Ratio (0.9-2) TSH (0.300-4.500) uIu/ml Urine Color Dark Yellow Urine Appearance Clear (Clear) Urine pH 5.0 (4.5-7.5) Ur Specific [place] 1.026 (1.000-1.030) Urine Protein Trace H (Negative) Urine Glucose (UA) Negative (Negative) Urine Ketones Trace H (Negative) Urine Blood Negative (Negative) Urine Nitrite Negative (Negative) Urine Bilirubin Negative (Negative) Urine Urobilinogen Negative (Negative) Ur Leukocyte Esterase Trace H (Negative) Urine WBC (Auto) 1-5 (0-5) /hpf Urine RBC (Auto) 0-4 (0-4) /hpf U Hyaline Cast (Auto) 1-5 (0-5) /lpf U Epithel Cells (Auto) >30 H (0-5) /lpf Urine Bacteria (Auto) 1+ H (Negative) Ur Renal Epithelial Cell Not Reportable COVID-19 Eval Order SARS-CoV-2 (PCR) (Negative) Administered Medications Discontinued Medications Sodium Chloride (Nss 1000ml) 1,000 mls @ 999 mls/hr IV .[id number] ONE Stop: 05/13/21 16:07 Last Infusion: 05/13/21 18:48 Dose: 0 mls/hr Documented by: [id number] Admin: 05/13/21 15:20 Dose: 999 mls/hr Documented by: [id number] Cefepime HCl (Maxipime) 2,000 mg in 20 mls @ 5 mls/min IV NOW STA; Protocol Stop: 05/13/21 15:10 Last Admin: 05/13/21 16:33 Dose: 5 mls/min Documented by: [id number] Imaging Data Radiologist's Impression: Abdomen/Pelvis CT 05/13/21 15:07 CT SCAN OF THE ABDOMEN AND PELVIS WITHOUT IV CONTRAST CLINICAL HISTORY: Change in mental status. Generalized abdominal pain. Bloating. COMPARISON STUDY: Abdominal CT dated 05/01/2021. TECHNIQUE: Unenhanced CT scan of the abdomen and pelvis is performed from the lung bases to the proximal femora. Images are reviewed in the axial, sagittal, and coronal planes. IV contrast was not administered for this examination. A dose lowering technique was utilized adhering to the principles of ALARA. The examination is degraded by motion artifact, as well as by streak artifact from the arms which could not be elevated above the abdomen. FINDINGS: Lung bases: The heart is normal in size and without pericardial effusion. The coronary arteries and mitral annulus are densely calcified. There are bibasilar airspace opacities. No pleural effusion is identified. There is a tiny hiatal hernia. Liver: The unenhanced liver is normal in size, contour, and attenuation. There is mild central intrahepatic biliary ductal dilatation. Gallbladder: Surgically absent noting clips in the gallbladder fossa. Spleen: Normal in size and attenuation. Pancreas: The unenhanced pancreas is atrophic and grossly unremarkable. Adrenal glands: Unremarkable. Kidneys: The unenhanced kidneys demonstrate cortical atrophy and are without hydronephrosis. There are numerous bilateral nonobstructing renal calculi which measure up to 5 mm. No ureteral stone is identified. There is no evidence of contour deforming mass lesion. Abdominal vasculature: The abdominal aorta is normal in course and caliber noting advanced atherosclerotic calcification. 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 There is a fat-containing parastomal hernia. No bowel obstruction is identified. There is mild to moderate diverticulosis of the remaining colon without CT evidence of acute diverticulitis. The appendix is well-visualized and normal. Peritoneum: There is no intraperitoneal free air or abdominal ascites. Lymphadenopathy: None. Pelvic viscera: Evaluation of the pelvis is degraded by streak artifact from bilateral hip arthroplasties. The bladder is normal as visualized. The uterus is surgically absent. No adnexal lesion is seen. There is asymmetric atrophy of the left psoas muscle. Skeletal structures: The skeletal structures are osteopenic. Again seen is a subacute appearing superior endplate compression fracture of L3. There is no significant retropulsion of fragments. Mild lumbosacral spondylosis is noted. No lytic or blastic lesions are seen. Bilateral hip arthroplasties are in place. There are chronic/healed right pubic ring fractures. IMPRESSION: 1. There are no acute infectious or inflammatory findings in the abdomen or pelvis. 2. A subacute appearing superior endplate compression fracture of L3 is unchanged from 05/01/2021. 3. Bibasilar airspace opacities are new from 05/01/2021. Correlate clinically for evidence of an infectious/inflammatory pneumonitis. 4. Left lower quadrant colostomy. No bowel obstruction is seen. 5. Bilateral nephrolithiasis. 6. Additional findings as above. ACT 112: Negative or not required by law. Electronically signed by: Bennett Huertas M.D. 05/13/2021 4:27 PM Chest X-Ray 05/13/21 15:07 SINGLE VIEW CHEST CLINICAL HISTORY: Generalized weakness. FINDINGS: An AP, portable, upright chest radiograph is compared to study dated 05/01/2021. Correlation is made with chest CT dated 11/20/2019. The examination is degraded by portable technique and patient rotation. A The heart is mildly enlarged noting atherosclerotic calcification of the thoracic aorta. There is patchy airspace consolidation present in the mid to lower lungs. No large pleural effusion or pneumothorax is seen. The skeletal structures are osteopenic. The bony thorax is grossly intact. IMPRESSION: 1. Cardiomegaly without radiographic evidence of congestive failure. 2. Bilateral airspace consolidation is typical for pneumonia/aspiration pneumonitis. Clinical correlation will be required and radiographic follow-up to resolution is recommended. ACT 112: Negative or not required by law. Electronically signed by: Bennett Huertas M.D. 05/13/2021 3:[address] 05/13/21 15:07 CT OF THE HEAD WITHOUT CONTRAST CLINICAL HISTORY: confusion COMPARISON STUDY: Head CT August 01, 2020. CT DOSE: 1113.08 mGy.cm TECHNIQUE: Helical axial images of the head were obtained without IV contrast. Automated exposure control was utilized for the study. A dose lowering technique was utilized adhering to the principles of ALARA. FINDINGS: No acute intracranial hemorrhage, midline shift or mass effect is present. White matter hypodensity suggests small vessel disease. These are unc hanged. The ventricular system is unremarkable. The basal cisterns are patent. No extra-axial collections are present. There are no findings to suggest acute dural sinus thrombosis or acute territorial infarct. No significant calvarial abnormalities are present. Visualized portions of the sinuses and mastoid air cells are clear. IMPRESSION: No acute intracranial findings. No change in appearance of the brain. ACT 112: Negative or not required by law. Electronically signed by: Anjel Encarnacion M.D. 05/13/2021 4:21 PM Discharge Plan Visit Data Chief Complaint: Hypotension Stated Complaint: HYPOTENSION, DEHYDRATION, WEAKNESS ED Provider: Bennett Brar Discharge Problem: Weakness, Lethargy, STERLING (acute kidney injury), Pneumonia, COVID-19 Patient Disposition: Admitted As Inpatient Condition: Fair Discharge Instructions Interventions: ED Discharge Assessment Last Done: 05/13/21 19:55
[2021-05-13 15:42] LABS: Magnesium 2.2 mg/dl (1.8-2.4)
--- NOTE | 2021-05-13 15:47 | XRay Report ---
SINGLE VIEW CHEST CLINICAL HISTORY: Generalized weakness. FINDINGS: An AP, portable, upright chest radiograph is compared to study dated 05/01/2021. Correlation is made with chest CT dated 11/20/2019. The examination is degraded by portable technique and patient rotation. A The heart is mildly enlarged noting atherosclerotic calcification of the thoracic aorta. There is patchy airspace consolidation present in the mid to lower lungs. No large pleural effusion or pneumothorax is seen. The skeletal structures are osteopenic. The bony thorax is grossly intact. IMPRESSION: 1. Cardiomegaly without radiographic evidence of congestive failure. 2. Bilateral airspace consolidation is typical for pneumonia/aspiration pneumonitis. Clinical correla tion will be required and radiographic follow-up to resolution is recommended. ACT 112: Negative or not required by law. Electronically signed by: Bennett Huertas M.D. 05/13/2021 3:46 PM
[2021-05-13 15:59] LABS: Thyroid Stimulating Hormone 0.526 uIu/ml (0.300-4.500); Troponin I < 0.015 ng/ml (0-0.045)
--- NOTE | 2021-05-13 16:23 | CT Scan Report ---
CT OF THE HEAD WITHOUT CONTRAST CLINICAL HISTORY: confusion COMPARISON STUDY: Head CT August 01, 2020. CT DOSE: 1113.08 mGy.cm TECHNIQUE: Helical axial images of the head were obtained without IV contrast. Automated exposure con trol was utilized for the study. A dose lowering technique was utilized adhering to the principles o f ALARA. FINDINGS: No acute intracranial hemorrhage, midline shift or mass effect is present. White matter hyp odensity suggests small vessel disease. These are unchanged. The ventricular system is unremarkable. The basal cisterns are patent. No extra-axial collections are present. There are no findings to sugge st acute dural sinus thrombosis or acute territorial infarct. No significant calvarial abnormalities are present. Visualized portions of the sinuses and mastoid air cells are clear. IMPRESSION: No acute intracranial findings. No change in appearance of the brain. ACT 112: Negative or not required by law. Electronically signed by: Anjel Encarnacion M.D. 05/13/2021 4:21 PM
--- NOTE | 2021-05-13 16:28 | CT Scan Report ---
CT SCAN OF THE ABDOMEN AND PELVIS WITHOUT IV CONTRAST CLINICAL HISTORY: Change in mental status. Generalized abdominal pain. Bloating. COMPARISON STUDY: Abdominal CT dated 05/01/2021. TECHNIQUE: Unenhanced CT scan of the abdomen and pelvis is performed from the lung bases to the proxi mal femora. Images are reviewed in the axial, sagittal, and coronal planes. IV contrast was not admin istered for this examination. A dose lowering technique was utilized adhering to the principles of AL BRET. The examination is degraded by motion artifact, as well as by streak artifact from the arms whic h could not be elevated above the abdomen. FINDINGS: Lung bases: The heart is normal in size and without pericardial effusion. The coronary arteries and m itral annulus are densely calcified. There are bibasilar airspace opacities. No pleural effusion is i dentified. There is a tiny hiatal hernia. Liver: The unenhanced liver is normal in size, contour, and attenuation. There is mild central intrah epatic biliary ductal dilatation. Gallbladder: Surgically absent noting clips in the gallbladder fossa. Spleen: Normal in size and attenuation. Pancreas: The unenhanced pancreas is atrophic and grossly unremarkable. Adrenal glands: Unremarkable. Kidneys: The unenhanced kidneys demonstrate cortical atrophy and are without hydronephrosis. There ar e numerous bilateral nonobstructing renal calculi which measure up to 5 mm. No ureteral stone is iden tified. There is no evidence of contour deforming mass lesion. Abdominal vasculature: The abdominal aorta is normal in course and caliber noting advanced atheroscle rotic calcification. 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 There is a fat-containing parastomal hernia. No bowel obstruction is wil ntified. There is mild to moderate diverticulosis of the remaining colon without CT evidence of acute diverticulitis. The appendix is well-visualized and normal. Peritoneum: There is no intraperitoneal free air or abdominal ascites. Lymphadenopathy: None. Pelvic viscera: Evaluation of the pelvis is degraded by streak artifact from bilateral hip arthroplas ties. The bladder is normal as visualized. The uterus is surgically absent. No adnexal lesion is seen . There is asymmetric atrophy of the left psoas muscle. Skeletal structures: The skeletal structures are osteopenic. Again seen is a subacute appearing super ior endplate compression fracture of L3. There is no significant retropulsion of fragments. Mild lumb osacral spondylosis is noted. No lytic or blastic lesions are seen. Bilateral hip arthroplasties are in place. There are chronic/healed right pubic ring fractures. IMPRESSION: 1. There are no acute infectious or inflammatory findings in the abdomen or pelvis. 2. A subacute appearing superior endplate compression fracture of L3 is unchanged from 05/01/2021. 3. Bibasilar airspace opacities are new from 05/01/2021. Correlate clinically for evidence of an infec tious/inflammatory pneumonitis. 4. Left lower quadrant colostomy. No bowel obstruction is seen. 5. Bilateral nephrolithiasis. 6. Additional findings as above. ACT 112: Negative or not required by law. Electronically signed by: Bennett Huertas M.D. 05/13/2021 4:27 PM
[2021-05-13 17:07] LABS: Appearance Urine Clear (Clear); Bacteria Urine Automated 1+ (Negative); Bilirubin Urine Negative (Negative); Blood Urine Negative (Negative); Color Urine Dark Yellow; Epithelial Cell Urine Auto >30 /lpf (0-5); Glucose Urine UA Negative (Negative); Ketones Urine Trace (Negative); Leukocyte Esterase Urine Trace (Negative); Nitrite Urine Negative (Negative); Protein Urine Trace (Negative); Specific Gravity Urine 1.026 (1.000-1.030); Urobilinogen Urine Negative (Negative)
[2021-05-13 17:22] LABS: RBC Urine Automated 0-4 /hpf (0-4)
--- NOTE | 2021-05-13 18:50 | History & Physical Report ---
Date of Service May 13, 2021 Assessment & Plan (1) Acute metabolic encephalopathy: Plan: Suspect patient is once again presented with acute metabolic encephalopathy, previous diagnosis of Covid, but with new leukocytosis, concerned about bacterial coinfection/pneumonia UA makes recurrent UTI less likely Will admit to a monitored bed Treat underlying causes as noted below If no response, consider decreasing gabapentin dosing (2) COVID: Plan: At this point, patient is likely out of the window for high-dose steroids or remdesivir treatment Because of question of coinfection, will start Zosyn for possible healthcare associated pneumonia Await blood cultures Sputum cultures if able to obtain (3) CKD (chronic kidney disease), stage III: Plan: Gentle IV hydration, monitor renal function closely Both BUN and creatinine are elevated, suspect this is acute dehydration (4) Compression fracture: Plan: Okay to continue Lidoderm We will hold off on oxycodone for now, may be worsening mental status (5) Hypothyroidism: Plan: On levothyroxine 88 mcg daily, okay to continue (6) Adrenocortical insufficiency: Plan: I see patient is on 10 mg of prednisone every morning, will continue (7) Hyperlipidemia: Plan: Patient is on atorvastatin 40 mg daily, will continue (8) Hypertension: Plan: Patient is on prazosin 1 mg nightly along with midodrine, will continue History of Present Illness Chief Complaint: Generalized weakness Primary Care Provider: Nidhi Gardner MD This is an 89-year-old female with past medical history rheumatoid arthritis, coronary artery disease, adrenal insufficiency, and recent Covid diagnosis that presents today with failure to thrive. Patient is a poor historian was alone in the room when I went to evaluate her. Per records, the patient was hospitalized here from . She was discharged yesterday. Discharge documentation shows diagnoses of acute metabolic encephalopathy secondary to Covid as well as an L3 compression fracture. Patient also had an ESBL Klebsiella UTI and has been treated with 7 days ertapenem. Per the ER documentation, the patient was brought home by family. She seemed fatigued and tired but today the patient was found to be more confused and very sleepy. She has apparently had no urinary output at all and the family was concerned about recurrent dehydration and UTI. On evaluation in the emergency room, she was found to be afebrile with normal vital signs. Patient was arousable, was able to converse a little but did not make much sense and was unable to really provide any other history. She not appear to be in any cardiopulmonary distress but fell asleep quickly during our conversation. Allergies Allergy/AdvReac Type Severity Reaction Status Date / Time nitrofurantoin Allergy Severe HIVES Verified 05/13/21 14:23 scallops Allergy Severe THROAT Verified 05/13/21 14:23 SWELLS ciprofloxacin Allergy Intermediate HIVES Verified 05/13/21 14:23 latex Allergy Intermediate RASH Verified 05/13/21 14:23 Quinolones Allergy Intermediate HIVES Verified 05/13/21 14:23 fluticasone Allergy Unknown ADVAIR-UNKN Verified 05/13/21 14:23 OWN salmeterol Allergy Unknown ADVAIR Verified 05/13/21 14:23 celecoxib AdvReac Intermediate barretts Verified 05/13/21 14:23 esophagus lactose AdvReac Intermediate GI UPSET Verified 05/13/21 14:23 morphine AdvReac Intermediate NAUSEA AND Verified 05/13/21 14:23 VOMITING Home Medications Medication Instructions Recorded Confirmed Type cholecalciferol (vitamin D3) 50 2,000 units PO QAM 07/07/18 05/13/21 History mcg (2,000 unit) capsule nitroglycerin 0.4 mg sublingual 0.4 mg SL Q5M PRN #1 tab 07/07/18 05/13/21 Rx tablet cyanocobalamin (vitamin B-12) 1,000 mcg PO QAM 08/31/18 05/13/21 History 1,000 mcg tablet (Vitamin B-12) vit A 1,000 unit-C 200 mg-E 60 1 tab PO QAM 08/31/18 05/13/21 History unit-lutein 2 mg and minerals tablet (Ocuvite with Lutein) gabapentin 300 mg capsule 300 mg PO TID 09/26/18 05/13/21 History vitamin B complex 1 tab PO QAM 09/26/18 05/13/21 History acetaminophen 500 mg tablet 1,000 mg PO Q6H PRN 01/03/19 05/13/21 History (Tylenol Extra Strength) polyethylene glycol 3350 17 gram 17 gm PO QAM #1 ea 11/25/19 05/13/21 Rx oral powder packet (Miralax) lidocaine 5 % topical patch 1 patch TOP DAILY PRN #30 ea 03/26/20 05/13/21 Rx ondansetron 8 mg disintegrating 8 mg PO Q6H PRN #20 tab 11/28/20 05/13/21 Rx tablet midodrine 5 mg tablet 5 mg PO QAM 02/17/21 05/13/21 History mirabegron 50 mg tablet,extended 50 mg PO DAILY #90 tab 03/24/21 05/13/21 Rx release 24 hr (Myrbetriq) prednisone 10 mg tablet 10 mg PO QAM #90 tab 04/22/21 05/13/21 Rx clopidogrel 75 mg tablet (Plavix) 75 mg PO QAM #90 tab 04/23/21 05/13/21 Rx Synthroid 88 mcg tablet 88 mcg PO QAM #90 tab NS 04/24/21 05/13/21 Rx (levothyroxine) atorvastatin 40 mg tablet 40 mg PO QDL #90 tab 04/24/21 05/13/21 Rx duloxetine 30 mg capsule,delayed 30 mg PO QAM #90 cap 04/24/21 05/13/21 Rx release duloxetine 60 mg capsule,delayed 60 mg PO QAM #90 cap 04/24/21 05/13/21 Rx release (Cymbalta) famotidine 40 mg tablet 40 mg PO HS #90 tab 04/24/21 05/13/21 Rx fluticasone propionate 50 2 spray INTRANASAL QAM PRN #15.8 ml 04/24/21 05/13/21 Rx mcg/actuation nasal spray,suspension (Flonase Allergy Relief) hydroxychloroquine 200 mg tablet 200 mg PO QAM #90 tab 04/24/21 05/13/21 Rx prazosin 1 mg capsule 1 mg PO HS #90 cap 04/24/21 05/13/21 Rx quetiapine 200 mg tablet 200 mg PO HS #90 tab 04/24/21 05/13/21 Rx dexlansoprazole 60 mg 60 mg PO QAM #90 cap 04/25/21 05/13/21 Rx capsule,biphase delayed release (Dexilant) calcitonin (salmon) 200 1 spray INTRANASAL QAM 05/01/21 05/13/21 History unit/actuation nasal spray oxycodone 10 mg tablet 10 mg PO TID 05/01/21 05/13/21 History diclofenac sodium 1 % topical gel 4 g EXT QID PRN MDD 16g 05/13/21 05/13/21 History (Voltaren Arthritis Pain) fexofenadine 60 mg tablet 60 mg PO QAM 05/13/21 05/13/21 History phenazopyridine 95 mg tablet 95 mg PO TID PRN 05/13/21 05/13/21 History Past Med/Surg History Medical History Adrenocortical insufficiency Allergic rhinitis Arteriosclerosis of coronary artery Asthma Balance problem Barretts esophagus Chronic back pain Chronic cystitis Chronic respiratory failure with hypoxia CKD (chronic kidney disease), stage III does not follow with nephrology Clostridium difficile carrier Colovaginal fistula ? 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 (current) use of systemic steroids Long-term use of hydroxychloroquine Lumbar canal stenosis Major depressive disorder, recurrent 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 Nausea On home oxygen therapy 3 LPM cont Orthostatic hypotension Peripheral arterial disease Peripheral edema Peripheral neuropathy Polyarthritis Poor balance Pre-diabetes Presence of colostomy Rheumatoid arthritis Solitary pulmonary nodule Steroid-induced osteopenia TIA (transient ischemic attack) 2016 Urinary incontinence Urinary retention Surgical History H/O: hysterectomy HOLGER, BSO History of cardiac catheterization 2010 -- no stents/angioplasty -- [facility] - CP - dtr believes she follows w/ [facility] History of colon surgery sigmoid colon resection History of hip replacement bilateral 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 History of tooth extraction History of vascular surgery lower extremity unknown which leg- stents Hx of cholecystectomy Family History Grandmother (Maternal) Breast cancer Uterine cancer Father Cardiomyopathy Mother Alzheimer disease Son Colorectal cancer Daughter Breast cancer Other Cancer Diabetes Gallbladder disease Heart disease Hypertension No family history of adverse response to anesthesia Seizure Denies family history of Malignant hypothermia due to anesthesia Ovarian cancer Prostate cancer Crohn's disease Myocardial infarction Bleeding disorder Ulcerative colitis Social History Smoking Status: Never smoker Second Hand Exposure: No; Hx Alcohol Use: No Hx Substance Use: No Preferred Language: Georgian Communication Ability: Impaired Visual Impairment: No Limitations Hearing Ability: Hard of Hearing Student Required: No Beliefs That Will Affect Care: None marital status: / Current Living Situation: Alone Current Living Situation Comment: has caretakers during day current occupational status: retired How many Children do You have: 5 Feels Safe at Home: Yes Childhood Exposure to Second-Hand Smoke: Yes caffeine: Yes during the past year weight has: remained stable Dental Care, Regularly: Yes Physical Activity Frequency: Does not Exercise Seatbelt Use: always Sunscreen Use: Yes Do you think of yourself as: straight/heterosexual Assistive Devices: Walker Review of Systems Review of Systems: Review of systems until for this patient secondary to lethargy and altered mental status. Physical Exam Constitutional: + lethargic; no acute distress Neck: trachea midline, no thyromegaly Respiratory: normal respiratory effort Auscultation: + diminished lung sounds and + crackles (Yates best at bases); no rales, no rhonchi and no wheezes Cardiovascular: Rate/Rhythm: regular rate and regular rhythm Heart Sounds: normal S1, normal S2 and + murmur Gastrointestinal (Abdomen): Inspection/Auscultation: abdomen normal to inspection Percussion/Palpation: abdomen soft; abdomen nontender, no guarding, abdomen not rigid and no hepatosplenomegaly Skin: no rashes, warm and dry Results & Data Results & Data ([facility]) Vital Signs (Past 12 Hours) Vital Signs Temp Pulse Resp BP Pulse Ox 05/13/21 17:15 92 H 20 115/72 98 05/13/21 15:15 99 H 20 120/50 L 98 05/13/21 14:06 104 H 18 127/55 L 05/13/21 13:30 37.0 C 108 H 20 132/69 98 Laboratory Results Laboratory Results WBC 18.87 K/uL (4.8-10.8) H 05/13/21 14:18 RBC 3.93 M/uL (4.2-5.4) L 05/13/21 14:18 Hgb 10.3 g/dL (12.0-16.0) L 05/13/21 14:18 Hct 34.2 % (37-47) L 05/13/21 14:18 MCV 87.0 fL (80-100) 05/13/21 14:18 MCH 26.2 pg (25-34) 05/13/21 14:18 MCHC 30.1 g/dL (32-36) L 05/13/21 14:18 RDW Std Deviation 51.9 fL (36.4-46.3) H 05/13/21 14:18 RDW Coeff of Omar 16.2 % (11.5-14.5) H 05/13/21 14:18 Plt Count 298 K/uL (130-400) 05/13/21 14:18 MPV 9.6 fL (7.4-10.4) 05/13/21 14:18 Immature Gran % (Auto) 2.4 % 05/13/21 14:18 Neut % (Auto) 80.7 % 05/13/21 14:18 Lymph % (Auto) 4.9 % 05/13/21 14:18 Andrew % (Auto) 10.6 % 05/13/21 14:18 Eos % (Auto) 1.2 % 05/13/21 14:18 Baso % (Auto) 0.2 % 05/13/21 14:18 Neut # (Auto) 15.23 K/uL (1.4-6.5) H 05/13/21 14:18 Lymph # (Auto) 0.92 K/uL (1.2-3.4) L 05/13/21 14:18 Andrew # (Auto) 2.00 K/uL (0.11-0.59) H 05/13/21 14:18 Eos # (Auto) 0.22 K/uL (0-0.5) 05/13/21 14:18 Baso # (Auto) 0.04 K/uL (0-0.2) 05/13/21 14:18 Immature Gran # (Auto) 0.46 K/uL (0.00-0.02) H 05/13/21 14:18 Sodium 138 mmol/L (136-145) 05/13/21 14:18 Potassium 4.3 mmol/L (3.5-5.1) 05/13/21 14:18 Chloride 105 mmol/L (98-107) 05/13/21 14:18 Carbon Dioxide 26 mmol/L (21-32) 05/13/21 14:18 Anion Gap 7.0 (3-11) 05/13/21 14:18 BUN 41 mg/dl (7-18) H 05/13/21 14:18 Creatinine 1.46 mg/dl (0.6-1.2) H 05/13/21 14:18 Est Cr Clr Drug Dosing Not Reportable 05/13/21 14:18 Est GFR ( Amer) 36.9 ml/min 05/13/21 14:18 Est GFR (Non-Af Amer) 31.8 ml/min 05/13/21 14:18 BUN/Creatinine Ratio 28.3 (10-20) H 05/13/21 14:18 Glucose 153 mg/dl (70-99) H 05/13/21 14:18 Lactate 1.1 mmol/L (0.4-2.0) 05/13/21 15:36 Calcium 8.5 mg/dl (8.5-10.1) 05/13/21 14:18 Magnesium 2.2 mg/dl (1.8-2.4) 05/13/21 14:18 Magnesium Cancelled 05/13/21 14:18 Total Bilirubin 0.4 mg/dl (0.2-1) 05/13/21 14:18 AST 103 U/L (15-37) H 05/13/21 14:18 ALT 220 U/L (12-78) H 05/13/21 14:18 Alkaline Phosphatase 160 U/L (45-117) H 05/13/21 14:18 Troponin I < 0.015 ng/ml (0-0.045) 05/13/21 14:18 Troponin I Cancelled 05/13/21 14:18 Total Protein 6.6 gm/dl (6.4-8.2) 05/13/21 14:18 Albumin 3.0 gm/dl (3.4-5.0) L 05/13/21 14:18 Globulin 3.6 gm/dl (2.5-4.0) 05/13/21 14:18 Albumin/Globulin Ratio 0.8 (0.9-2) L 05/13/21 14:18 TSH 0.526 uIu/ml (0.300-4.500) 05/13/21 14:18 TSH Cancelled 05/13/21 14:18 Urine Color Dark Yellow 05/13/21 16:30 Urine Appearance Clear (Clear) 05/13/21 16:30 Urine pH 5.0 (4.5-7.5) 05/13/21 16:30 Ur Specific [place] 1.026 (1.000-1.030) 05/13/21 16:30 Urine Protein Trace (Negative) H 05/13/21 16:30 Urine Glucose (UA) Negative (Negative) 05/13/21 16:30 Urine Ketones Trace (Negative) H 05/13/21 16:30 Urine Blood Negative (Negative) 05/13/21 16:30 Urine Nitrite Negative (Negative) 05/13/21 16:30 Urine Bilirubin Negative (Negative) 05/13/21 16:30 Urine Urobilinogen Negative (Negative) 05/13/21 16:30 Ur Leukocyte Esterase Trace (Negative) H 05/13/21 16:30 Urine WBC (Auto) 1-5 /hpf (0-5) 05/13/21 16:30 Urine RBC (Auto) 0-4 /hpf (0-4) 05/13/21 16:30 U Hyaline Cast (Auto) 1-5 /lpf (0-5) 05/13/21 16:30 U Epithel Cells (Auto) >30 /lpf (0-5) H 05/13/21 16:30 Urine Bacteria (Auto) 1+ (Negative) H 05/13/21 16:30 Ur Renal Epithelial Cell Not Reportable 05/13/21 16:30 COVID-19 Eval Order Covid19 at [facility] 05/13/21 15:24 SARS-CoV-2 (PCR) POSITIVE (Negative) A* 05/13/21 15:24 Impressions Abdomen/Pelvis CT 05/13/21 15:07 CT SCAN OF THE ABDOMEN AND PELVIS WITHOUT IV CONTRAST CLINICAL HISTORY: Change in mental status. Generalized abdominal pain. Bloating. COMPARISON STUDY: Abdominal CT dated 05/01/2021. TECHNIQUE: Unenhanced CT scan of the abdomen and pelvis is performed from the lung bases to the proximal femora. Images are reviewed in the axial, sagittal, and coronal planes. IV contrast was not administered for this examination. A dose lowering technique was utilized adhering to the principles of ALARA. The examination is degraded by motion artifact, as well as by streak artifact from the arms which could not be elevated above the abdomen. FINDINGS: Lung bases: The heart is normal in size and without pericardial effusion. The coronary arteries and mitral annulus are densely calcified. There are bibasilar airspace opacities. No pleural effusion is identified. There is a tiny hiatal hernia. Liver: The unenhanced liver is normal in size, contour, and attenuation. There is mild central intrahepatic biliary ductal dilatation. Gallbladder: Surgically absent noting clips in the gallbladder fossa. Spleen: Normal in size and attenuation. Pancreas: The unenhanced pancreas is atrophic and grossly unremarkable. Adrenal glands: Unremarkable. Kidneys: The unenhanced kidneys demonstrate cortical atrophy and are without hydronephrosis. There are numerous bilateral nonobstructing renal calculi which measure up to 5 mm. No ureteral stone is identified. There is no evidence of contour deforming mass lesion. Abdominal vasculature: The abdominal aorta is normal in course and caliber noting advanced atherosclerotic calcification. 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 There is a fat-containing parastomal hernia. No bowel obstruction is identified. There is mild to moderate diverticulosis of the remaining colon without CT evidence of acute diverticulitis. The appendix is well-visualized and normal. Peritoneum: There is no intraperitoneal free air or abdominal ascites. Lymphadenopathy: None. Pelvic viscera: Evaluation of the pelvis is degraded by streak artifact from bilateral hip arthroplasties. The bladder is normal as visualized. The uterus is surgically absent. No adnexal lesion is seen. There is asymmetric atrophy of the left psoas muscle. Skeletal structures: The skeletal structures are osteopenic. Again seen is a subacute appearing superior endplate compression fracture of L3. There is no significant retropulsion of fragments. Mild lumbosacral spondylosis is noted. No lytic or blastic lesions are seen. Bilateral hip arthroplasties are in place. There are chronic/healed right pubic ring fractures. IMPRESSION: 1. There are no acute infectious or inflammatory findings in the abdomen or pelvis. 2. A subacute appearing superior endplate compression fracture of L3 is unchanged from 05/01/2021. 3. Bibasilar airspace opacities are new from 05/01/2021. Correlate clinically for evidence of an infectious/inflammatory pneumonitis. 4. Left lower quadrant colostomy. No bowel obstruction is seen. 5. Bilateral nephrolithiasis. 6. Additional findings as above. ACT 112: Negative or not required by law. Electronically signed by: Bennett Huertas M.D. 05/13/2021 4:27 PM Chest X-Ray 05/13/21 15:07 SINGLE VIEW CHEST CLINICAL HISTORY: Generalized weakness. FINDINGS: An AP, portable, upright chest radiograph is compared to study dated 05/01/2021. Correlation is made with chest CT dated 11/20/2019. The examination is degraded by portable technique and patient rotation. A The heart is mildly enlarged noting atherosclerotic calcification of the thoracic aorta. There is patchy airspace consolidation present in the mid to lower lungs. No large pleural effusion or pneumothorax is seen. The skeletal structures are osteopenic. The bony thorax is grossly intact. IMPRESSION: 1. Cardiomegaly without radiographic evidence of congestive failure. 2. Bilateral airspace consolidation is typical for pneumonia/aspiration pneumonitis. Clinical correlation will be required and radiographic follow-up to resolution is recommended. ACT 112: Negative or not required by law. Electronically signed by: Bennett Huertas M.D. 05/13/2021 3:[address] 05/13/21 15:07 CT OF THE HEAD WITHOUT CONTRAST CLINICAL HISTORY: confusion COMPARISON STUDY: Head CT August 01, 2020. CT DOSE: 1113.08 mGy.cm TECHNIQUE: Helical axial images of the head were obtained without IV contrast. Automated exposure control was utilized for the study. A dose lowering technique was utilized adhering to the principles of ALARA. FINDINGS: No acute intracranial hemorrhage, midline shift or mass effect is present. White matter hypodensity suggests small vessel disease. These are unchanged. The ventricular system is unremarkable. The basal cisterns are patent. No extra-axial collections are present. There are no findings to suggest acute dural sinus thrombosis or acute territorial infarct. No significant calvarial abnormalities are present. Visualized portions of the sinuses and mastoid air cells are clear. IMPRESSION: No acute intracranial findings. No change in appearance of the brain. ACT 112: Negative or not required by law. Electronically signed by: Anjel Encarnacion M.D. 05/13/2021 4:21 PM PG Care Time/CCT Total # of Minutes Spent Total Time Spent with Patient: Total time spent is greater than 50% in coordination of care (as documented) at patient's floor/unit and/or counseling patient: Coding Level of Care Code 00918 Initial Inpt Care Lvl 3 Diagnoses Acute metabolic encephalopathy G93.41 Compression fracture CKD (chronic kidney disease), stage III N18.32 Chronic kidney disease stage 3 subtype: stage 3b (GFR 30-44) COVID U07.1 Hypothyroidism E03.9 Adrenocortical insufficiency E27.40 Hyperlipidemia E78.5 Hypertension I10 (1) CKD (chronic kidney disease), stage III Chronic kidney disease stage 3 subtype: stage 3b (GFR 30-44) Qualified Code(s): N18.32 - Chronic kidney disease, stage 3b
[2021-05-13] MEDS ORDERED: PIPERACILL/TAZOBAC CONSULT ACTIVE PRN (21:05)
[2021-05-13] MEDS ORDERED: LIDOCAINE 5% 1 PATCH TD PRN (21:05)
[2021-05-13] MEDS ORDERED: FLUTICASONE PROPIONATE NA SPR 16 GM BTL PRN (21:05)
[2021-05-13] MEDS ORDERED: ONDANSETRON INJ 2 MG/ML 2 ML VIAL IV PRN (21:05)
[2021-05-13] MEDS ORDERED: ACETAMINOPHEN 500 MG TAB PO PRN (21:32)
[2021-05-13] MEDS: SODIUM CHLORIDE 0.9% 1000ML 1,000 ML IV SCH (22:47)
[2021-05-13] MEDS: FAMOTIDINE 40 MG TABLET PO SCH (22:49)
[2021-05-13] MEDS: GABAPENTIN 300 MG CAP PO SCH (22:49)
[2021-05-13] MEDS: QUEtiapine FUMARATE 200 MG TAB PO SCH (22:49)
[2021-05-13] MEDS: PRAZOSIN HCL 1 MG CAP PO SCH (22:50)
[2021-05-13] MEDS: HEPARIN SOD 5,000 UNIT/0.5 ML VIAL SQ SCH (22:50)
[2021-05-14] MEDS ORDERED: PIPERACILLIN/TAZOBACTAM 3.375 GM in DEXTROSE 5% 100 ML IV ONE
[2021-05-14] MEDS: PIPERACILLIN/TAZOBACTAM 3.375 GM in DEXTROSE 5% 100 ML IV SCH ×3 (05:41→22:24)
[2021-05-14] MEDS: HEPARIN SOD 5,000 UNIT/0.5 ML VIAL SQ SCH ×3 (05:41→22:24)
[2021-05-14] MEDS: LEVOTHYROXINE SODIUM 88 MCG TABLET PO SCH (05:41)
[2021-05-14 08:22] LABS: Basophils # (auto) 0.01 K/uL (0-0.2); Basophils % (auto) 0.1 %; Eosinophils # (auto) 0.31 K/uL (0-0.5); Eosinophils % (auto) 2.3 %; Hemoglobin 9.3 g/dL (12.0-16.0); Immature Granulocytes # (auto) 0.22 K/uL (0.00-0.02); Immature Granulocytes % (auto) 1.7 %; Lymphocytes # (auto) 1.22 K/uL (1.2-3.4); Lymphocytes % (auto) 9.2 %; Mean Corpuscular Hemoglobin 26.3 pg (25-34); Mean Corpuscular Volume 87.8 fL (80-100); Mean Platelet Volume 9.5 fL (7.4-10.4); Monocytes # (auto) 1.11 K/uL (0.11-0.59); Monocytes % (auto) 8.4 %; Neutrophils # (auto) 10.33 K/uL (1.4-6.5); Neutrophils % (auto) 78.3 %; Platelet Count 278 K/uL (130-400); RDW Coefficient of Variation 16.2 % (11.5-14.5); Red Blood Count 3.53 M/uL (4.2-5.4)
[2021-05-14] MEDS: CHOLECALCIFEROL 1,000 UNITS 25 MCG TAB PO SCH (09:08)
[2021-05-14] MEDS: GABAPENTIN 300 MG CAP PO SCH ×3 (09:08→19:47)
[2021-05-14] MEDS: HYDROXYCHLOROQUINE SULFATE 200 MG TAB PO SCH (09:08)
[2021-05-14] MEDS: CLOPIDOGREL BISULFATE 75 MG TAB PO SCH (09:08)
[2021-05-14] MEDS: PANTOprazole 40 MG TAB PO SCH (09:09)
[2021-05-14] MEDS: MIRABEGRON ER 25 MG TAB PO SCH (09:09)
[2021-05-14] MEDS: DULoxetine HCL 30 MG CAP PO SCH (09:09)
[2021-05-14] MEDS: MIDODRINE HCL 2.5 MG TAB PO SCH (09:09)
[2021-05-14] MEDS: FEXOFENADINE 60 MG TAB PO SCH (09:09)
[2021-05-14] MEDS: DULoxetine HCL 60 MG CAP PO SCH (09:09)
[2021-05-14] MEDS: VITAMIN B COMPLEX TAB PO SCH (09:09)
[2021-05-14] MEDS: CYANOCOBALAMIN 500 MCG TABLET (VITAMIN B-12) PO SCH (09:09)
[2021-05-14] MEDS: POLYETHYLENE (MIRALAX) 17 GM PACK PO SCH ×2 (09:09→09:17)
[2021-05-14] MEDS: predniSONE 10 MG TABLET PO SCH (09:09)
[2021-05-14 09:10] LABS: BUN Creatinine Ratio 31.2 (10-20); Calcium 8.2 mg/dl (8.5-10.1); Creatinine Clr Calc Pharmacy 42.2 ml/min; Est GFR (African American) 69.9 ml/min; Est GFR (Non-African American) 60.3 ml/min; Potassium 3.5 mmol/L (3.5-5.1)
[2021-05-14] MEDS: CALCITONIN SALMON NA 200 IU/AC 3.7 ML BTL SCH (09:10)
[2021-05-14] MEDS: SODIUM CHLORIDE 0.9% 1000ML 1,000 ML IV SCH ×2 (09:10→17:35)
[2021-05-14] MEDS: CEROVITE ADV FORMULA TAB PO SCH (09:10)
[2021-05-14] MEDS: ATORVASTATIN 40 MG TAB PO SCH (10:58)
--- NOTE | 2021-05-14 18:01 | Hospitalist Progress Note ---
Date of Service May 14, 2021 Assessment & Plan (1) Acute metabolic encephalopathy: Plan: Suspect secondary to underlying infection with elevated WBC. Prior UTI treated with Invanz from 05/01 - 05/07. Urine culture still growing GNB but given prior persistently positive urine cultures and improvement on Zosyn (prior resistance to this) may represent colonization. Suspect infection most likely from lung ?aspiration. Improvement in WBC on Zosyn therefore will continue on this. Hold oxycodone. (2) Acute respiratory failure with hypoxia: Plan: Aim O2 sats > 94% Secondary to COVID-19 and suspected underlying bacterial pneumonia (3) Bacterial pneumonia: Plan: Continue Zosyn for healthcare acquired / aspiration pneumonia SLT assessment to assess for aspirations MRSA nasal swab Sputum cultures (4) COVID: Plan: Dexamethasone given 05/08 - 05/11 CRP with AM labs to determine if needs further dexamethasone (5) CKD (chronic kidney disease), stage III: Plan: Dehydrated on admission due to poor oral intake at home. Resolved. Will discontinue IV fluids (6) Compression fracture: Plan: Okay to continue Lidoderm We will hold off on oxycodone for now, may be worsening mental status (7) Hypothyroidism: Plan: Continue levothyroxine 88 mcg daily (8) Adrenocortical insufficiency: Plan: I see patient is on 10 mg of prednisone every morning, will continue, BP acceptable (9) Hyperlipidemia: Plan: Patient is on atorvastatin 40 mg daily, will continue (10) Hypertension: Plan: Patient is on prazosin 1 mg nightly along with midodrine, will continue Admission and Anticipated Discharge Date Admission Date: May 13, 2021 Subjective Reports she doesn't feel short of breath, no productive cough, no chest pain. Orientated to year and self only. Very weak b/l in all 4 extremities. No fevers or chills. She denies any urinary symptoms. Updated her daughter over the phone. Review of Systems Review of Systems: All systems reviewed & are unremarkable except as noted in HPI & below Physical Exam Constitutional: well developed and + obese; + not well nourished and no acute distress Eyes: + anicteric sclerae; normal pupil size ENMT: external ear and nose normal, oropharynx normal Respiratory: + retractions and + uses accessory muscles; + not able to speak in complete sentence Auscultation: + diminished lung sounds (throughout) Cardiovascular: Rate/Rhythm: regular rate and regular rhythm Heart Sounds: no murmur Vessels: no JVD Extremities: normal capillary refill and + calf tenderness (right); no pedal edema Gastrointestinal (Abdomen): normal bowel sounds, soft, nontender, no hepatosplenomegaly Inspection/Auscultation: + abdomen distended Musculoskeletal: Head/Neck/Chest: normocephalic and head atraumatic Generalized weakness in all 4 extremities Skin: no rashes, warm and dry Psychiatric: A+Ox3, euthymic affect Genitourinary: + CVA tenderness (bilateral) Results & Data Results & Data ([facility]) Vital Signs (Past 12 Hours) Vital Signs Temp Pulse Pulse Resp BP BP Pulse Ox 05/14/21 17:00 103 H 05/14/21 16:51 36.9 C 98 H 20 128/64 99 05/14/21 13:04 05/14/21 11:59 37.1 C 114 H 18 123/58 L 100 05/14/21 08:06 36.9 C 79 19 124/85 94 05/14/21 08:00 94 H Pulse Ox Pulse Ox 05/14/21 17:00 05/14/21 16:51 05/14/21 13:04 93 05/14/21 11:59 05/14/21 08:06 05/14/21 08:00 95 PG Care Time/CCT Total # of Minutes Spent Total Time Spent with Patient: Total time spent is greater than 50% in coordination of care (as documented) at patient's floor/unit and/or counseling patient: Coding Level of Care Code 84768 Subseq Hosp Care Lvl 3 Diagnoses Acute metabolic encephalopathy G93.41 COVID U07.1 CKD (chronic kidney disease), stage III N18.32 Chronic kidney disease stage 3 subtype: stage 3b (GFR 30-44) Compression fracture Hypothyroidism E03.9 Adrenocortical insufficiency E27.40 Hyperlipidemia E78.5 Hypertension I10 Acute respiratory failure with hypoxia J96.01 Bacterial pneumonia J15.9 (1) CKD (chronic kidney disease), stage III Chronic kidney disease stage 3 subtype: stage 3b (GFR 30-44) Qualified Code(s): N18.32 - Chronic kidney disease, stage 3b
--- NOTE | 2021-05-14 18:16 | Ultrasound Report ---
US venous doppler LE RT HISTORY: 89 years-old Female r/o DVT, right calf pain acute pain of the right lower leg COMPARISON: None TECHNIQUE: Multiple real-time sonographic images of the right lower extremity deep venous structures were obtained assessing grayscale appearance, color and spectral flow. FINDINGS: Normal flow, compressibility, phasicity and augmentation. IMPRESSION: No sonographic evidence of deep venous thrombosis. ACT 112: Negative or not required by law. The above report was generated using voice recognition software. It may contain grammatical, syntax o r spelling errors. Electronically signed by: Swapnil Silva M.D. 05/14/2021 6:14 PM
[2021-05-14] MEDS: QUEtiapine FUMARATE 200 MG TAB PO SCH (19:47)
[2021-05-14] MEDS: PRAZOSIN HCL 1 MG CAP PO SCH (19:48)
[2021-05-14] MEDS: FAMOTIDINE 40 MG TABLET PO SCH (19:48)
[2021-05-15] MEDS: PIPERACILLIN/TAZOBACTAM 3.375 GM in DEXTROSE 5% 100 ML IV SCH ×3 (06:08→23:25)
[2021-05-15] MEDS: HEPARIN SOD 5,000 UNIT/0.5 ML VIAL SQ SCH ×3 (06:08→20:55)
[2021-05-15] MEDS: LEVOTHYROXINE SODIUM 88 MCG TABLET PO SCH (06:09)
[2021-05-15 07:54] LABS: Basophils # (auto) 0.01 K/uL (0-0.2); Basophils % (auto) 0.1 %; Eosinophils # (auto) 0.25 K/uL (0-0.5); Eosinophils % (auto) 2.4 %; Hematocrit (blood only) 32.2 % (37-47); Hemoglobin 9.7 g/dL (12.0-16.0); Immature Granulocytes # (auto) 0.18 K/uL (0.00-0.02); Immature Granulocytes % (auto) 1.7 %; Lymphocytes # (auto) 0.84 K/uL (1.2-3.4); Lymphocytes % (auto) 8.1 %; Mean Corpuscular Hemoglobin 26.5 pg (25-34); Mean Corpuscular Hgb Conc 30.1 g/dL (32-36); Mean Platelet Volume 9.6 fL (7.4-10.4); Monocytes # (auto) 1.12 K/uL (0.11-0.59); Monocytes % (auto) 10.8 %; Neutrophils # (auto) 7.99 K/uL (1.4-6.5); Neutrophils % (auto) 76.9 %; Platelet Count 274 K/uL (130-400); RDW Coefficient of Variation 16.2 % (11.5-14.5); RDW Standard Deviation 52.5 fL (36.4-46.3); Red Blood Count 3.66 M/uL (4.2-5.4); White Blood Count 10.39 K/uL (4.8-10.8)
[2021-05-15] MEDS: FEXOFENADINE 60 MG TAB PO SCH (08:05)
[2021-05-15] MEDS: DULoxetine HCL 30 MG CAP PO SCH (08:05)
[2021-05-15] MEDS: GABAPENTIN 300 MG CAP PO SCH ×3 (08:05→20:54)
[2021-05-15] MEDS: CYANOCOBALAMIN 500 MCG TABLET (VITAMIN B-12) PO SCH (08:05)
[2021-05-15] MEDS: HYDROXYCHLOROQUINE SULFATE 200 MG TAB PO SCH (08:05)
[2021-05-15] MEDS: DULoxetine HCL 60 MG CAP PO SCH (08:05)
[2021-05-15] MEDS: MIDODRINE HCL 2.5 MG TAB PO SCH (08:05)
[2021-05-15] MEDS: predniSONE 10 MG TABLET PO SCH (08:05)
[2021-05-15] MEDS: CEROVITE ADV FORMULA TAB PO SCH (08:06)
[2021-05-15] MEDS: CLOPIDOGREL BISULFATE 75 MG TAB PO SCH (08:06)
[2021-05-15] MEDS: CHOLECALCIFEROL 1,000 UNITS 25 MCG TAB PO SCH (08:06)
[2021-05-15] MEDS: VITAMIN B COMPLEX TAB PO SCH (08:06)
[2021-05-15] MEDS: CALCITONIN SALMON NA 200 IU/AC 3.7 ML BTL SCH (08:06)
[2021-05-15] MEDS: MIRABEGRON ER 25 MG TAB PO SCH (08:06)
[2021-05-15] MEDS: PANTOprazole 40 MG TAB PO SCH (08:07)
[2021-05-15] MEDS: POLYETHYLENE (MIRALAX) 17 GM PACK PO SCH (08:07)
[2021-05-15 08:30] LABS: Albumin Level 2.5 gm/dl (3.4-5.0); BUN Creatinine Ratio 24.4 (10-20); C Reactive Protein 11.4 mg/dl (0-0.29); Calcium 8.3 mg/dl (8.5-10.1); Creatinine Clr Calc Pharmacy 46.1 ml/min; Est GFR (African American) 77.5 ml/min; Est GFR (Non-African American) 66.8 ml/min; Potassium 3.8 mmol/L (3.5-5.1)
[2021-05-15 08:33] LABS: Albumin Globulin Ratio 0.7 (0.9-2); Bilirubin,Total 0.4 mg/dl (0.2-1); Globulin 3.6 gm/dl (2.5-4.0); Total Protein 6.1 gm/dl (6.4-8.2)
[2021-05-15] MEDS: ATORVASTATIN 40 MG TAB PO SCH (10:34)
--- NOTE | 2021-05-15 14:43 | Fluoroscopy Report ---
VIDEO SWALLOW STUDY CLINICAL HISTORY: Aspiration. COMPARISON STUDY: Video swallow study dated 03/23/2019. Fluoroscopy time: 2.0 minutes. FINDINGS: Fluoroscopic guidance was provided to the Department of speech pathology in performing a vi yves swallow study. The patient consumed barium-impregnated pudding, cracker with paste, nectar thick liquid, and thin barium while the swallowing mechanism was observed in real-time. No penetration or a spiration was seen with any of the sampled textures. IMPRESSION: No penetration or aspiration was seen with any of the sampled textures. See dedicated spe ech pathology report for detailed findings and recommendations. Dictated: 05/15/2021 2:15 PM Transcribed: 05/15/2021 2:35 PM Suzan [id number] [facility] Electronically signed by: Bennett Huertas M.D. 05/15/2021 2:42 PM
--- NOTE | 2021-05-15 15:25 | Hospitalist Progress Note ---
Date of Service May 15, 2021 Assessment & Plan (1) Acute metabolic encephalopathy: Plan: Suspect secondary to underlying infection with elevated WBC. Prior UTI treated with Invanz from 05/01 - 05/07. Urine culture still growing GNB but given prior persistently positive urine cultures and improvement on Zosyn (prior resistance to this) may represent colonization. Suspect infection most likely from lung ?aspiration. Improvement in WBC on Zosyn therefore will continue on this. Hold oxycodone. (2) Acute respiratory failure with hypoxia: Plan: Aim O2 sats > 94% Secondary to COVID-19 and suspected underlying bacterial pneumonia (3) Bacterial pneumonia: Plan: Continue Zosyn for healthcare acquired / aspiration pneumonia SLT assessment to assess for aspirations - video swallow without aspirations MRSA nasal swab negative Sputum cultures (4) COVID: Plan: Dexamethasone given 05/08 - 05/11 Given improvement with Zosyn will continue to hold off further dexamethasone at this stage. (5) CKD (chronic kidney disease), stage III: Plan: Dehydrated on admission due to poor oral intake at home. Resolved. (6) Compression fracture: Plan: Okay to continue Lidoderm We will hold off on oxycodone for now, may be worsening mental status (7) Hypothyroidism: Plan: Continue levothyroxine 88 mcg daily (8) Adrenocortical insufficiency: Plan: Continue prednisone 10mg PO daily (9) Hyperlipidemia: Plan: Patient is on atorvastatin 40 mg daily, will continue (10) Hypertension: Plan: Patient is on prazosin 1 mg nightly along with midodrine, will continue Plan: VTE prophylaxis 5000 units SQ Q8H Admission and Anticipated Discharge Date Admission Date: May 13, 2021 Subjective Much more alert and able to communicate with me. She reports improved weakness. She does remember going home but cannot give me much of a history. No significant pains now off oxycodone and feels she is ok to continue off this. Wishes to substitute it for acetaminophen. No urinary symptoms. Review of Systems Review of Systems: All systems reviewed & are unremarkable except as noted in HPI & below Physical Exam Constitutional: well developed and + obese; + not well nourished and no acute distress Eyes: + anicteric sclerae; normal pupil size ENMT: external ear and nose normal, oropharynx normal Respiratory: normal respiratory effort and able to speak in complete sentences Auscultation: + diminished lung sounds (throughout) Cardiovascular: Rate/Rhythm: regular rate and regular rhythm Heart Sounds: no murmur Vessels: no JVD Extremities: normal capillary refill; no pedal edema Gastrointestinal (Abdomen): Inspection/Auscultation: + abdomen distended Musculoskeletal: Head/Neck/Chest: normocephalic and head atraumatic Skin: no rashes, warm and dry Neurologic: moves all extremities, awake and + confused (much improved) Psychiatric: Orientation: alert, oriented to person and oriented to time; + not oriented to place Genitourinary: + CVA tenderness (bilateral) Results & Data Results & Data ([facility]) Vital Signs (Past 12 Hours) Vital Signs Temp Pulse Pulse Resp BP Pulse Ox Pulse Ox 05/15/21 11:48 36.6 C 110 H 18 121/85 96 05/15/21 08:00 88 94 05/15/21 07:54 36.5 C 90 18 153/83 H 98 05/15/21 04:31 36.9 C 89 18 146/73 H 98 PG Care Time/CCT Total # of Minutes Spent Total Time Spent with Patient: Total time spent is greater than 50% in coordination of care (as documented) at patient's floor/unit and/or counseling patient: Coding Level of Care Code 18008 Subseq Hosp Care Lvl 3 Diagnoses Acute metabolic encephalopathy G93.41 Acute respiratory failure with hypoxia J96.01 Bacterial pneumonia J15.9 COVID U07.1 CKD (chronic kidney disease), stage III N18.32 Chronic kidney disease stage 3 subtype: stage 3b (GFR 30-44) Compression fracture Hypothyroidism E03.9 Adrenocortical insufficiency E27.40 Hyperlipidemia E78.5 Hypertension I10 (1) CKD (chronic kidney disease), stage III Chronic kidney disease stage 3 subtype: stage 3b (GFR 30-44) Qualified Code(s): N18.32 - Chronic kidney disease, stage 3b
[2021-05-15] MEDS: QUEtiapine FUMARATE 200 MG TAB PO SCH (20:54)
[2021-05-15] MEDS: PRAZOSIN HCL 1 MG CAP PO SCH (20:54)
[2021-05-15] MEDS: FAMOTIDINE 40 MG TABLET PO SCH (20:54)
[2021-05-15] MEDS: ACETAMINOPHEN 500 MG TAB PO SCH (20:55)
--- NOTE | 2021-05-16 06:11 | Electrocardiogram Report ---
Test Reason : Blood Pressure : / mmHG Vent. Rate : 105 BPM Atrial Rate : 105 BPM P-R Int : 142 ms QRS Dur : 112 ms QT Int : 386 ms P-R-T Axes : 044 069 -09 degrees QTc Int : 510 ms Sinus tachycardia Low voltage QRS Incomplete right bundle branch block T wave abnormality, consider inferior ischemia Abnormal ECG When compared with ECG of 01-MAY-2021 14:30, No significant change was found Confirmed by Shashank Luciano ([id number]) on 05/16/2021 6:10:55 AM Referred By: Confirmed By:Shashank Luciano
[2021-05-16] MEDS: HEPARIN SOD 5,000 UNIT/0.5 ML VIAL SQ SCH ×3 (06:35→20:42)
[2021-05-16] MEDS: PIPERACILLIN/TAZOBACTAM 3.375 GM in DEXTROSE 5% 100 ML IV SCH ×3 (06:35→20:43)
[2021-05-16] MEDS: LEVOTHYROXINE SODIUM 88 MCG TABLET PO SCH (06:36)
[2021-05-16] MEDS: HYDROXYCHLOROQUINE SULFATE 200 MG TAB PO SCH (08:11)
[2021-05-16] MEDS: CALCITONIN SALMON NA 200 IU/AC 3.7 ML BTL SCH (08:11)
[2021-05-16] MEDS: CHOLECALCIFEROL 1,000 UNITS 25 MCG TAB PO SCH (08:12)
[2021-05-16] MEDS: CLOPIDOGREL BISULFATE 75 MG TAB PO SCH (08:12)
[2021-05-16] MEDS: FEXOFENADINE 60 MG TAB PO SCH (08:13)
[2021-05-16] MEDS: DULoxetine HCL 60 MG CAP PO SCH (08:13)
[2021-05-16] MEDS: CYANOCOBALAMIN 500 MCG TABLET (VITAMIN B-12) PO SCH (08:13)
[2021-05-16] MEDS: DULoxetine HCL 30 MG CAP PO SCH (08:13)
[2021-05-16] MEDS: MIRABEGRON ER 25 MG TAB PO SCH (08:14)
[2021-05-16] MEDS: MIDODRINE HCL 2.5 MG TAB PO SCH (08:14)
[2021-05-16] MEDS: GABAPENTIN 300 MG CAP PO SCH ×3 (08:14→20:41)
[2021-05-16] MEDS: ACETAMINOPHEN 500 MG TAB PO SCH ×3 (08:15→20:40)
[2021-05-16] MEDS: CEROVITE ADV FORMULA TAB PO SCH (08:15)
[2021-05-16] MEDS: VITAMIN B COMPLEX TAB PO SCH (08:16)
[2021-05-16] MEDS: PANTOprazole 40 MG TAB PO SCH (08:16)
[2021-05-16] MEDS: predniSONE 10 MG TABLET PO SCH (08:16)
[2021-05-16] MEDS: POLYETHYLENE (MIRALAX) 17 GM PACK PO SCH (08:16)
[2021-05-16] MEDS: ATORVASTATIN 40 MG TAB PO SCH (10:56)
--- NOTE | 2021-05-16 11:47 | Hospitalist Progress Note ---
Date of Service May 16, 2021 Assessment & Plan (1) Acute metabolic encephalopathy: Plan: Suspect secondary to underlying infection with elevated WBC. Prior UTI treated with Invanz from 05/01 - 05/07. Urine culture still growing Klebsiella pneumoniae but suspect this represents colonization. Suspect infection most likely from lung ?aspiration. Improvement in WBC on Zosyn therefore will continue on this. Hold oxycodone - possibly tachycardia and insomnia related to opiate withdrawal although given no significant pain would continue off this currently. No nausea or vomiting. (2) Acute respiratory failure with hypoxia: Plan: Aim O2 sats > 94% Secondary to COVID-19 and suspected underlying bacterial pneumonia (3) Bacterial pneumonia: Plan: Continue Zosyn for healthcare acquired / aspiration pneumonia SLT assessment to assess for aspirations - video swallow without aspirations MRSA nasal swab negative Sputum cultures pending (4) COVID: Plan: Dexamethasone given 05/08 - 05/11. Given improvement in mental status with Zosyn will continue to hold off further dexamethasone at this stage. (5) CKD (chronic kidney disease), stage III: Plan: Dehydrated on admission due to poor oral intake at home. Back to baseline. (6) Compression fracture: Plan: Okay to continue Lidoderm We will hold off on oxycodone for now, may be worsening mental status (7) Hypothyroidism: Plan: Continue levothyroxine 88 mcg daily (8) Adrenocortical insufficiency: Plan: Continue prednisone 10mg PO daily (9) Hyperlipidemia: Plan: Patient is on atorvastatin 40 mg daily, will continue (10) Hypertension: Plan: Patient is on prazosin 1 mg nightly along with midodrine, will continue Plan: VTE prophylaxis 5000 units SQ Q8H Admission and Anticipated Discharge Date Admission Date: May 13, 2021 Subjective Similar to yesterday. No significant change in symptoms. Orientated to self only. Eating small amounts. Liquid stool from colostomy bag. Review of Systems Review of Systems: All systems reviewed & are unremarkable except as noted in HPI & below Physical Exam Constitutional: well developed and + obese; + not well nourished and no acute distress Eyes: + anicteric sclerae; normal pupil size ENMT: external ear and nose normal, oropharynx normal Respiratory: normal respiratory effort and able to speak in complete sentences Auscultation: + diminished lung sounds (throughout) Cardiovascular: Rate/Rhythm: regular rate and regular rhythm Heart Sounds: no murmur Vessels: no JVD Extremities: normal capillary refill; no pedal edema Gastrointestinal (Abdomen): normal bowel sounds, soft, nontender, no hepatosplenomegaly Inspection/Auscultation: abdomen normal to inspection (colostomy draining liquid stool) Musculoskeletal: Head/Neck/Chest: normocephalic and head atraumatic Skin: no rashes, warm and dry Neurologic: moves all extremities, awake and + confused (much improved) Psychiatric: Orientation: alert and oriented to person; + not oriented to place and + not oriented to time Genitourinary: + CVA tenderness (bilateral) Results & Data Results & Data ([facility]) Vital Signs (Past 12 Hours) Vital Signs Temp Pulse Pulse Resp BP Pulse Ox 05/16/21 07:39 37.6 C H 118 H 19 122/54 L 96 05/16/21 07:18 116 H PG Care Time/CCT Total # of Minutes Spent Total Time Spent with Patient: Total time spent is greater than 50% in coordination of care (as documented) at patient's floor/unit and/or counseling patient: Coding Level of Care Code 67679 Subseq Hosp Care Lvl 2 Diagnoses Acute metabolic encephalopathy G93.41 Acute respiratory failure with hypoxia J96.01 Bacterial pneumonia J15.9 COVID U07.1 CKD (chronic kidney disease), stage III N18.32 Chronic kidney disease stage 3 subtype: stage 3b (GFR 30-44) Compression fracture Hypothyroidism E03.9 Adrenocortical insufficiency E27.40 Hyperlipidemia E78.5 Hypertension I10 (1) CKD (chronic kidney disease), stage III Chronic kidney disease stage 3 subtype: stage 3b (GFR 30-44) Qualified Code(s): N18.32 - Chronic kidney disease, stage 3b
[2021-05-16] MEDS: QUEtiapine FUMARATE 200 MG TAB PO SCH (20:40)
[2021-05-16] MEDS: FAMOTIDINE 40 MG TABLET PO SCH (20:40)
[2021-05-16] MEDS: PRAZOSIN HCL 1 MG CAP PO SCH (20:41)
[2021-05-17] MEDS: HEPARIN SOD 5,000 UNIT/0.5 ML VIAL SQ SCH ×3 (06:00→21:37)
[2021-05-17] MEDS: PIPERACILLIN/TAZOBACTAM 3.375 GM in DEXTROSE 5% 100 ML IV SCH ×3 (06:26→21:38)
[2021-05-17] MEDS: LEVOTHYROXINE SODIUM 88 MCG TABLET PO SCH (06:26)
[2021-05-17 07:28] LABS: Basophils # (auto) 0.01 K/uL (0-0.2); Basophils % (auto) 0.1 %; Eosinophils # (auto) 0.35 K/uL (0-0.5); Eosinophils % (auto) 3.1 %; Hemoglobin 9.4 g/dL (12.0-16.0); Immature Granulocytes # (auto) 0.14 K/uL (0.00-0.02); Immature Granulocytes % (auto) 1.2 %; Lymphocytes # (auto) 0.93 K/uL (1.2-3.4); Lymphocytes % (auto) 8.2 %; Mean Corpuscular Hgb Conc 30.3 g/dL (32-36); Mean Corpuscular Volume 85.9 fL (80-100); Mean Platelet Volume 9.3 fL (7.4-10.4); Monocytes # (auto) 1.34 K/uL (0.11-0.59); Monocytes % (auto) 11.8 %; Neutrophils # (auto) 8.62 K/uL (1.4-6.5); Neutrophils % (auto) 75.6 %; Platelet Count 263 K/uL (130-400); RDW Coefficient of Variation 16.5 % (11.5-14.5); RDW Standard Deviation 52.1 fL (36.4-46.3); Red Blood Count 3.61 M/uL (4.2-5.4); White Blood Count 11.39 K/uL (4.8-10.8)
[2021-05-17] MEDS: POLYETHYLENE (MIRALAX) 17 GM PACK PO SCH (07:59)
[2021-05-17] MEDS: CALCITONIN SALMON NA 200 IU/AC 3.7 ML BTL SCH (08:00)
[2021-05-17] MEDS: ACETAMINOPHEN 500 MG TAB PO SCH ×3 (08:01→20:00)
[2021-05-17] MEDS: CHOLECALCIFEROL 1,000 UNITS 25 MCG TAB PO SCH (08:01)
[2021-05-17] MEDS: PANTOprazole 40 MG TAB PO SCH (08:02)
[2021-05-17] MEDS: predniSONE 10 MG TABLET PO SCH (08:02)
[2021-05-17] MEDS: CEROVITE ADV FORMULA TAB PO SCH (08:02)
[2021-05-17] MEDS: CYANOCOBALAMIN 500 MCG TABLET (VITAMIN B-12) PO SCH (08:02)
[2021-05-17] MEDS: FEXOFENADINE 60 MG TAB PO SCH (08:02)
[2021-05-17] MEDS: MIRABEGRON ER 25 MG TAB PO SCH (08:02)
[2021-05-17] MEDS: CLOPIDOGREL BISULFATE 75 MG TAB PO SCH (08:02)
[2021-05-17] MEDS: VITAMIN B COMPLEX TAB PO SCH (08:02)
[2021-05-17] MEDS: MIDODRINE HCL 2.5 MG TAB PO SCH (08:02)
[2021-05-17] MEDS: DULoxetine HCL 60 MG CAP PO SCH (08:03)
[2021-05-17] MEDS: HYDROXYCHLOROQUINE SULFATE 200 MG TAB PO SCH (08:03)
[2021-05-17] MEDS: GABAPENTIN 300 MG CAP PO SCH ×3 (08:03→20:04)
[2021-05-17] MEDS: DULoxetine HCL 30 MG CAP PO SCH (08:03)
[2021-05-17 08:12] LABS: BUN Creatinine Ratio 12.7 (10-20); Calcium 8.4 mg/dl (8.5-10.1); Est GFR (African American) 75.2 ml/min; Est GFR (Non-African American) 64.8 ml/min; Potassium 3.2 mmol/L (3.5-5.1)
[2021-05-17] MEDS: ATORVASTATIN 40 MG TAB PO SCH (10:25)
[2021-05-17] MEDS: POTASSIUM CHLORIDE CRTAB 20 MEQ TABCR PO SCH (12:46)
[2021-05-17] MEDS ORDERED: PROMETHAZINE HCL 12.5 MG in SODIUM CHLORIDE 0.9% 50 ML IV PRN (14:25)
--- NOTE | 2021-05-17 14:55 | Hospitalist Progress Note ---
Date of Service May 17, 2021 Assessment & Plan (1) Acute metabolic encephalopathy: Plan: Suspect secondary to underlying infection with elevated WBC on admission. Initially WBC improving with Zosyn however appears to have increased today with patient symptomatically worse. Prior UTI treated with Invanz from 05/01 - 05/07. Urine culture still growing Klebsiella pneumoniae but suspect this represents colonization as intermittently resistant to Zosyn and patient made significant improvements on Zosyn. Suspect infection most likely pneumonia ?aspiration. Initial significant improvement in WBC on Zosyn therefore will continue on this. Hold oxycodone - possibly tachycardia and insomnia related to opiate withdrawal although given no significant pain would continue off this currently. Reduce Seroquel to 100mg HS given persistent insomnia. (2) Acute respiratory failure with hypoxia: Plan: Aim O2 sats > 94%. Secondary to COVID-19 and suspected underlying bacterial pneumonia. (3) Opiate withdrawal: Plan: Possible explanation for her ongoing tachycardia, insomnia, abdominal cramping and loose stool. We will continue off oxycodone at this time unless she needs it for pain. (4) Bacterial pneumonia: Plan: Continue Zosyn for healthcare acquired / aspiration pneumonia SLT assessment to assess for aspirations - video swallow without aspirations MRSA nasal swab negative Sputum cultures uncollected (5) COVID: Plan: Dexamethasone given 05/08 - 05/11. Given improvement in mental status with Zosyn will continue to hold off further dexamethasone at this stage. (6) CKD (chronic kidney disease), stage III: Plan: Dehydrated on admission due to poor oral intake at home. Back to baseline. (7) Compression fracture: Plan: Okay to continue Lidoderm We will hold off on oxycodone for now, may be worsening mental status (8) Hypothyroidism: Plan: Continue levothyroxine 88 mcg daily (9) Adrenocortical insufficiency: Plan: Continue prednisone 10mg PO daily (10) Hyperlipidemia: Plan: Patient is on atorvastatin 40 mg daily, will continue (11) Hypertension: Plan: Patient is on prazosin 1 mg nightly Will hold midodrine as weaning this as outpatient and currently in urinary retention (12) Urinary retention: Plan: Straight cath for PVR > 500ml Avoid benitez for now given colonization and stop midodrine to help with r etention. Plan: VTE prophylaxis 5000 units SQ Q8H Admission and Anticipated Discharge Date Admission Date: May 13, 2021 Subjective Patient feels a little worse today but finds it hard to explain exactly why. Less of an appetite. No dysphagia. Still having insomnia. Significant drop in urine output overnight and on straight cath this morning had 1000 mL in the bladder. Orientated to self and place. Eating small amounts. Liquid stool from colostomy bag. Updated her daughter Tiffani over the phone Review of Systems Review of Systems: All systems reviewed & are unremarkable except as noted in HPI & below Physical Exam Constitutional: well developed and + obese; + not well nourished and no acute distress Eyes: + anicteric sclerae; normal pupil size ENMT: external ear and nose normal, oropharynx normal Respiratory: normal respiratory effort and able to speak in complete sentences Auscultation: + diminished lung sounds (bibasal) Cardiovascular: Rate/Rhythm: regular rate and regular rhythm Heart Sounds: no murmur Vessels: no JVD Extremities: normal capillary refill; no pedal edema Gastrointestinal (Abdomen): Inspection/Auscultation: abdomen normal to inspection (colostomy draining liquid stool) Percussion/Palpation: + abdomen tender (mild RLQ) and abdomen soft; no guarding and abdomen not rigid Musculoskeletal: Head/Neck/Chest: normocephalic and head atraumatic Skin: no rashes, warm and dry Neurologic: moves all extremities, awake and + confused (much improved from admission) Psychiatric: Orientation: alert, oriented to person and oriented to place; + not oriented to time Genitourinary: + CVA tenderness (bilateral) Results & Data Results & Data ([facility]) Vital Signs (Past 12 Hours) Vital Signs Temp Pulse Pulse Resp BP BP Pulse Ox 05/17/21 10:25 36.7 C 96 H 16 131/72 95 05/17/21 07:50 36.5 C 96 H 20 150/70 H 96 05/17/21 07:21 95 H 05/17/21 04:00 36.5 C 05/17/21 03:38 87 18 154/72 H 98 PG Care Time/CCT Total # of Minutes Spent Total Time Spent with Patient: Total time spent is greater than 50% in coordination of care (as documented) at patient's floor/unit and/or counseling patient: Coding Level of Care Code 90626 Subseq Hosp Care Lvl 2 Diagnoses Acute metabolic encephalopathy G93.41 Acute respiratory failure with hypoxia J96.01 Bacterial pneumonia J15.9 COVID U07.1 CKD (chronic kidney disease), stage III N18.32 Chronic kidney disease stage 3 subtype: stage 3b (GFR 30-44) Compression fracture Hypothyroidism E03.9 Adrenocortical insufficiency E27.40 Hyperlipidemia E78.5 Hypertension I10 Opiate withdrawal F11.23 Urinary retention R33.9 (1) CKD (chronic kidney disease), stage III Chronic kidney disease stage 3 subtype: stage 3b (GFR 30-44) Qualified Code(s): N18.32 - Chronic kidney disease, stage 3b
[2021-05-17 15:31] LABS: Appearance Urine Clear (Clear); Bilirubin Urine Negative (Negative); Blood Urine Negative (Negative); Color Urine Dark Yellow; Glucose Urine UA Negative (Negative); Ketones Urine Trace (Negative); Leukocyte Esterase Urine Trace (Negative); Nitrite Urine Negative (Negative); Protein Urine Trace (Negative); Specific Gravity Urine 1.021 (1.000-1.030); Urobilinogen Urine Negative (Negative)
[2021-05-17 15:46] LABS: Bacteria Urine Automated 1+ (Negative); RBC Urine Automated 0-4 /hpf (0-4)
[2021-05-17] MEDS ORDERED: POLYETHYLENE (MIRALAX) 17 GM PACK PO PRN (18:05)
[2021-05-17] MEDS: QUEtiapine FUMARATE 100 MG TABLET PO SCH (20:03)
[2021-05-17] MEDS: PRAZOSIN HCL 1 MG CAP PO SCH (20:04)
[2021-05-17] MEDS: FAMOTIDINE 40 MG TABLET PO SCH (20:05)
[2021-05-18] MEDS: HEPARIN SOD 5,000 UNIT/0.5 ML VIAL SQ SCH ×3 (05:52→23:03)
[2021-05-18] MEDS: LEVOTHYROXINE SODIUM 88 MCG TABLET PO SCH (05:52)
[2021-05-18] MEDS: PIPERACILLIN/TAZOBACTAM 3.375 GM in DEXTROSE 5% 100 ML IV SCH (05:52)
[2021-05-18 06:56] LABS: Basophils # (auto) 0.02 K/uL (0-0.2); Basophils % (auto) 0.2 %; Eosinophils # (auto) 0.43 K/uL (0-0.5); Eosinophils % (auto) 3.6 %; Hematocrit (blood only) 31.9 % (37-47); Hemoglobin 9.7 g/dL (12.0-16.0); Immature Granulocytes # (auto) 0.11 K/uL (0.00-0.02); Immature Granulocytes % (auto) 0.9 %; Lymphocytes # (auto) 1.35 K/uL (1.2-3.4); Lymphocytes % (auto) 11.3 %; Mean Corpuscular Hemoglobin 26.3 pg (25-34); Mean Corpuscular Hgb Conc 30.4 g/dL (32-36); Mean Corpuscular Volume 86.4 fL (80-100); Mean Platelet Volume 9.5 fL (7.4-10.4); Monocytes # (auto) 1.39 K/uL (0.11-0.59); Monocytes % (auto) 11.7 %; Neutrophils % (auto) 72.3 %; Platelet Count 289 K/uL (130-400); RDW Coefficient of Variation 16.5 % (11.5-14.5); RDW Standard Deviation 52.1 fL (36.4-46.3); Red Blood Count 3.69 M/uL (4.2-5.4)
[2021-05-18 07:34] LABS: BUN Creatinine Ratio 15.8 (10-20); Calcium 8.7 mg/dl (8.5-10.1); Creatinine Clr Calc Pharmacy 40.5 ml/min; Est GFR (Non-African American) 58.7 ml/min; Potassium 3.5 mmol/L (3.5-5.1)
[2021-05-18] MEDS: ACETAMINOPHEN 500 MG TAB PO SCH ×3 (07:51→23:04)
[2021-05-18] MEDS: CYANOCOBALAMIN 500 MCG TABLET (VITAMIN B-12) PO SCH (07:52)
[2021-05-18] MEDS: VITAMIN B COMPLEX TAB PO SCH (07:52)
[2021-05-18] MEDS: DULoxetine HCL 30 MG CAP PO SCH (07:52)
[2021-05-18] MEDS: DULoxetine HCL 60 MG CAP PO SCH (07:53)
[2021-05-18] MEDS: PANTOprazole 40 MG TAB PO SCH (07:53)
[2021-05-18] MEDS: CHOLECALCIFEROL 1,000 UNITS 25 MCG TAB PO SCH (07:53)
[2021-05-18] MEDS: CALCITONIN SALMON NA 200 IU/AC 3.7 ML BTL SCH (07:53)
[2021-05-18] MEDS: POTASSIUM CHLORIDE CRTAB 20 MEQ TABCR PO SCH (07:53)
[2021-05-18] MEDS: CLOPIDOGREL BISULFATE 75 MG TAB PO SCH (07:53)
[2021-05-18] MEDS: FEXOFENADINE 60 MG TAB PO SCH (07:54)
[2021-05-18] MEDS: MIRABEGRON ER 25 MG TAB PO SCH (07:54)
[2021-05-18] MEDS: GABAPENTIN 300 MG CAP PO SCH ×3 (07:54→23:03)
[2021-05-18] MEDS: CEROVITE ADV FORMULA TAB PO SCH (07:54)
[2021-05-18] MEDS: HYDROXYCHLOROQUINE SULFATE 200 MG TAB PO SCH (07:54)
[2021-05-18] MEDS: predniSONE 10 MG TABLET PO SCH (07:54)
[2021-05-18] MEDS: ADVANCED PROBIOTIC 1250 MG CAPSULE PO SCH (09:42)
[2021-05-18] MEDS: ERTAPENEM SODIUM 1,000 MG in SODIUM CHLORIDE 0.9% 50 ML IV SCH (11:24)
[2021-05-18] MEDS: ATORVASTATIN 40 MG TAB PO SCH (11:26)
[2021-05-18] MEDS ORDERED: FLUCONAZOLE 200 MG/100 ML BAG IV SCH (17:30)
[2021-05-18] MEDS: PRAZOSIN HCL 1 MG CAP PO SCH (23:03)
[2021-05-18] MEDS: FAMOTIDINE 40 MG TABLET PO SCH (23:03)
[2021-05-18] MEDS: QUEtiapine FUMARATE 100 MG TABLET PO SCH (23:03)
[2021-05-19] MEDS: HEPARIN SOD 5,000 UNIT/0.5 ML VIAL SQ SCH ×3 (06:40→22:46)
--- NOTE | 2021-05-19 06:48 | Hospitalist Progress Note ---
Date of Service May 18, 2021 Assessment & Plan (1) Acute metabolic encephalopathy: Plan: Suspect secondary to underlying infection with elevated WBC on admission. Initially WBC and patient improving with Zosyn however WBC getting worse last 2 days (although neutrophils improving) with worsening symptoms therefore will switch antibiotics as below. Hold oxycodone - possibly tachycardia and insomnia related to opiate withdrawal although given no significant pain would continue off this currently. Continue on reduced Seroquel to 100mg HS given persistent insomnia. (2) UTI (urinary tract infection): Plan: Prior UTI treated with Invanz from 05/01 - 05/07. Urine culture still growing Klebsiella pneumoniae (and now marcie). Initially suspected colonization given asymptomatic but she has had increasing suprapubic pain over the last 2 days and her WBC if slowly rising again. Urine retention may also explain failure of prior antibiotics - therefore will start on treatment for this with Ertapenem again. (3) Urinary retention: Plan: Given continued need for straight caths despite stopping midodrine will place benitez at this stage. (4) Acute respiratory failure with hypoxia: Plan: Aim O2 sats > 94%. Secondary to COVID-19 and possible bacterial pneumonia although procalcitonin negative. No aspiration on video swallow (5) Opiate withdrawal: Plan: Possible explanation for her ongoing tachycardia, insomnia, abdominal cramping and loose stool. We will continue off oxycodone at this time unless she needs it for pain. (6) Bacterial pneumonia: Plan: Possible diagnosis although procalcitonin negative. Previously on Zosyn, now discontinued. SLT assessment to assess for aspirations - video swallow without aspirations MRSA nasal swab negative Sputum cultures uncollected (7) COVID: Plan: Dexamethasone given 05/08 - 05/11. Given improvement in mental status with Zosyn will continue to hold off further dexamethasone at this stage. (8) CKD (chronic kidney disease), stage III: Plan: Dehydrated on admission due to poor oral intake at home. Back to baseline. (9) Compression fracture: Plan: Okay to continue Lidoderm We will hold off on oxycodone for now, may be worsening mental status (10) Hypothyroidism: Plan: Continue levothyroxine 88 mcg daily (11) Adrenocortical insufficiency: Plan: Continue prednisone 10mg PO daily (12) Hyperlipidemia: Plan: Patient is on atorvastatin 40 mg daily, will continue (13) Hypertension: Plan: Patient is on prazosin 1 mg nightly Will hold midodrine as weaning this as outpatient and currently in urinary retention Plan: VTE prophylaxis 5000 units SQ Q8H Admission and Anticipated Discharge Date Admission Date: May 13, 2021 Subjective Increased suprapubic pain. Continued need for intermittent straight catheterization due to urinary retention. Shortness of breath no change. Colostomy working normally however she does note bloating. Review of Systems Review of Systems: All systems reviewed & are unremarkable except as noted in HPI & below Physical Exam Constitutional: well developed and + obese; + not well nourished and no acute distress Eyes: + anicteric sclerae; normal pupil size Respiratory: normal respiratory effort and able to speak in complete sentences Auscultation: + diminished lung sounds (bibasal) Cardiovascular: Rate/Rhythm: regular rate and regular rhythm Heart Sounds: no murmur Vessels: no JVD Extremities: normal capillary refill; no pedal edema Gastrointestinal (Abdomen): normal bowel sounds, soft, nontender, no hepatosplenomegaly Inspection/Auscultation: abdomen normal to inspection (colostomy draining liquid stool) Percussion/Palpation: + abdomen tender (suprapubic) and abdomen soft; no guarding and abdomen not rigid Musculoskeletal: Head/Neck/Chest: normocephalic and head atraumatic Skin: no rashes, warm and dry Neurologic: moves all extremities, awake and + confused (much improved from admission) Psychiatric: Orientation: alert, oriented to person, oriented to place and oriented to time Genitourinary: + CVA tenderness (bilateral) Results & Data Results & Data ([facility]) Vital Signs (Past 12 Hours) Vital Signs Temp Pulse Resp BP BP Pulse Ox 05/19/21 03:46 36.5 C 103 H 18 128/73 97 05/18/21 23:06 37 C 101 H 16 133/83 95 PG Care Time/CCT Total # of Minutes Spent Total Time Spent with Patient: Total time spent is greater than 50% in coordination of care (as documented) at patient's floor/unit and/or counseling patient: Coding Level of Care Code 57793 Subseq Hosp Care Lvl 2 Diagnoses Acute metabolic encephalopathy G93.41 Acute respiratory failure with hypoxia J96.01 Opiate withdrawal F11.23 Bacterial pneumonia J15.9 COVID U07.1 CKD (chronic kidney disease), stage III N18.32 Chronic kidney disease stage 3 subtype: stage 3b (GFR 30-44) Compression fracture Hypothyroidism E03.9 Adrenocortical insufficiency E27.40 Hyperlipidemia E78.5 Hypertension I10 Urinary retention R33.9 UTI (urinary tract infection) N39.0 (1) CKD (chronic kidney disease), stage III Chronic kidney disease stage 3 subtype: stage 3b (GFR 30-44) Qualified Code(s): N18.32 - Chronic kidney disease, stage 3b
[2021-05-19] MEDS: LEVOTHYROXINE SODIUM 88 MCG TABLET PO SCH (09:08)
[2021-05-19] MEDS: HYDROXYCHLOROQUINE SULFATE 200 MG TAB PO SCH (09:09)
[2021-05-19] MEDS: CHOLECALCIFEROL 1,000 UNITS 25 MCG TAB PO SCH (09:15)
[2021-05-19] MEDS: CLOPIDOGREL BISULFATE 75 MG TAB PO SCH (09:15)
[2021-05-19] MEDS: CALCITONIN SALMON NA 200 IU/AC 3.7 ML BTL SCH (09:15)
[2021-05-19] MEDS: CYANOCOBALAMIN 500 MCG TABLET (VITAMIN B-12) PO SCH (09:15)
[2021-05-19] MEDS: FEXOFENADINE 60 MG TAB PO SCH (09:16)
[2021-05-19] MEDS: DULoxetine HCL 60 MG CAP PO SCH (09:16)
[2021-05-19] MEDS: ADVANCED PROBIOTIC 1250 MG CAPSULE PO SCH (09:16)
[2021-05-19] MEDS: GABAPENTIN 300 MG CAP PO SCH ×3 (09:16→22:47)
[2021-05-19] MEDS: MIRABEGRON ER 25 MG TAB PO SCH (09:16)
[2021-05-19] MEDS: DULoxetine HCL 30 MG CAP PO SCH (09:16)
[2021-05-19] MEDS: PANTOprazole 40 MG TAB PO SCH (09:16)
[2021-05-19] MEDS: CEROVITE ADV FORMULA TAB PO SCH (09:16)
[2021-05-19] MEDS: predniSONE 10 MG TABLET PO SCH (09:17)
[2021-05-19] MEDS: POTASSIUM CHLORIDE CRTAB 20 MEQ TABCR PO SCH (09:17)
[2021-05-19] MEDS: VITAMIN B COMPLEX TAB PO SCH (09:17)
[2021-05-19] MEDS: ACETAMINOPHEN 500 MG TAB PO SCH ×3 (09:33→22:44)
[2021-05-19] MEDS: ERTAPENEM SODIUM 1,000 MG in SODIUM CHLORIDE 0.9% 50 ML IV SCH (12:15)
[2021-05-19] MEDS: oxyCODONE HCL IR 5 MG TAB (IMMEDIATE RELEASE) PO SCH ×2 (12:15→22:44)
[2021-05-19] MEDS: ATORVASTATIN 40 MG TAB PO SCH (12:16)
[2021-05-19] MEDS ORDERED: FLUCONAZOLE 100 MG/50 ML BAG IV SCH (16:00)
[2021-05-19] MEDS ORDERED: NORMOSOL-R 1,000 ML IV SCH (17:15)
--- NOTE | 2021-05-19 19:26 | Hospitalist Progress Note ---
Date of Service May 19, 2021 Assessment & Plan (1) Acute metabolic encephalopathy: Plan: Ongoing. Suspect delirium due to resolving/smoldering COVID-19 illness, +/- UTI, + hospital psychosis, etc. Supportive care. Seroquel HS. (2) UTI (urinary tract infection): Plan: Prior UTI treated with Invanz from 05/01 - 05/07. Urine culture again has grown Klebsiella pneumoniae (and now marcie albicans). Has received 7+ days of IV ertapenem and zosyn. Stop IV abx tomorrow am if CRP and CBC stable/normal. For yeast - cont diflucan, today is day #1 of such. (3) Urinary retention: Plan: Cont benitez Would leave for at least 5-7 days then re-attempt voiding trial (4) Acute respiratory failure with hypoxia: Plan: 2nd COVID-19 pneumonia. essentially resolved. does use O2 at home although during prior hospital stay her O2 sats were normal in RA. 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 Agree w/ prior MD that she is likely withdrawing. Will place back on oxycodone 10mg BID to start and titrate as needed. 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 dehydration? opiate withdrawal plan - IV fluids x 1 Liter; CTA chest - r/o PE given prolonged immobility and COVID illness; putting back on opiates I am concerned by her ongoing failure to thrive I updated the pt's daughter extensively by phone this evening explained my above concerns Admission and Anticipated Discharge Date Admission Date: May 13, 2021 Subjective patient sitting in chair by window during the visit. was confused - did not know the year, month or day/date. endorsed fatigue, weakness, and poor appetite - although did ask for spaghetti if it was available. staff report poor oral intake of both solids & liquids. she denies cough/dyspnea. no further abdominal pain. Review of Systems Constitutional: + fatigue, + weakness and + anorexia; no fever and no chills Cardiovascular: no chest pain Gastrointestinal: no nausea and no vomiting Genitourinary: no suprapubic pain today Musculoskeletal: no back pain Physical Exam Physical Exam: gen - confused, very weak-appearing, frail skin - pallor mouth - MM dry heart - RRR, s1 s2 lungs - minimal fine dry rales bases abd - soft NT ND BS+; ostomy with bag in place, liquid brown stool ext - trace edema, pulses 2+ bilaterally neuro - strength b/l legs about 5/5 psych - oriented to person/place only Results & Data Results & Data ([facility]) Vital Signs (Past 12 Hours) Vital Signs Temp Pulse Pulse Resp BP Pulse Ox 05/19/21 16:00 108 H 05/19/21 14:35 36.6 C 111 H 16 108/65 97 05/19/21 11:18 36.8 C 110 H 20 108/62 94 05/19/21 09:03 36.9 C 115 H 16 119/67 94 05/19/21 08:00 105 H PG Care Time/CCT Total # of Minutes Spent Total Time Spent with Patient: Total time spent is greater than 50% in coordination of care (as documented) at patient's floor/unit and/or counseling patient: Coding Level of Care Code 81426 Subseq Hosp Care Lvl 3 Diagnoses Acute metabolic encephalopathy G93.41 UTI (urinary tract infection) N39.0 Urinary retention R33.9 Acute respiratory failure with hypoxia J96.01 Opiate withdrawal F11.23 Bacterial pneumonia J15.9 COVID U07.1 CKD (chronic kidney disease), stage III N18.32 Chronic kidney disease stage 3 subtype: stage 3b (GFR 30-44) Compression fracture Hypothyroidism E03.9 Adrenocortical insufficiency E27.40 Hyperlipidemia E78.5 Hypertension I10 (1) CKD (chronic kidney disease), stage III Chronic kidney disease stage 3 subtype: stage 3b (GFR 30-44) Qualified Code(s): N18.32 - Chronic kidney disease, stage 3b
[2021-05-19] MEDS: PRAZOSIN HCL 1 MG CAP PO SCH (22:45)
[2021-05-19] MEDS: QUEtiapine FUMARATE 100 MG TABLET PO SCH (22:46)
[2021-05-19] MEDS: FAMOTIDINE 40 MG TABLET PO SCH (22:46)
[2021-05-20] MEDS: HEPARIN SOD 5,000 UNIT/0.5 ML VIAL SQ SCH ×4 (05:54→21:42)
[2021-05-20] MEDS: LEVOTHYROXINE SODIUM 88 MCG TABLET PO SCH (05:54)
[2021-05-20 06:24] LABS: Hematocrit (blood only) 32.4 % (37-47); Hemoglobin 9.7 g/dL (12.0-16.0); Mean Corpuscular Hemoglobin 26.1 pg (25-34); Mean Corpuscular Hgb Conc 29.9 g/dL (32-36); Mean Corpuscular Volume 87.1 fL (80-100); Mean Platelet Volume 9.2 fL (7.4-10.4); Platelet Count 259 K/uL (130-400); RDW Coefficient of Variation 16.7 % (11.5-14.5); RDW Standard Deviation 53.6 fL (36.4-46.3); Red Blood Count 3.72 M/uL (4.2-5.4); White Blood Count 8.67 K/uL (4.8-10.8)
[2021-05-20 07:02] LABS: BUN Creatinine Ratio 19.6 (10-20); C Reactive Protein 2.51 mg/dl (0-0.29); Calcium 8.5 mg/dl (8.5-10.1); Creatinine Clr Calc Pharmacy 32.7 ml/min; Est GFR (African American) 51.9 ml/min; Est GFR (Non-African American) 44.8 ml/min; Magnesium 2.2 mg/dl (1.8-2.4); Potassium 4.3 mmol/L (3.5-5.1)
[2021-05-20] MEDS: oxyCODONE HCL IR 5 MG TAB (IMMEDIATE RELEASE) PO SCH ×2 (10:09→21:08)
[2021-05-20] MEDS: ACETAMINOPHEN 500 MG TAB PO SCH ×3 (10:10→21:09)
[2021-05-20] MEDS: HYDROXYCHLOROQUINE SULFATE 200 MG TAB PO SCH (10:11)
[2021-05-20] MEDS: CALCITONIN SALMON NA 200 IU/AC 3.7 ML BTL SCH (10:12)
[2021-05-20] MEDS: CYANOCOBALAMIN 500 MCG TABLET (VITAMIN B-12) PO SCH (10:15)
[2021-05-20] MEDS: CHOLECALCIFEROL 1,000 UNITS 25 MCG TAB PO SCH (10:15)
[2021-05-20] MEDS: CLOPIDOGREL BISULFATE 75 MG TAB PO SCH (10:15)
[2021-05-20] MEDS: ADVANCED PROBIOTIC 1250 MG CAPSULE PO SCH (10:16)
[2021-05-20] MEDS: CEROVITE ADV FORMULA TAB PO SCH (10:16)
[2021-05-20] MEDS: MIRABEGRON ER 25 MG TAB PO SCH (10:16)
[2021-05-20] MEDS: DULoxetine HCL 60 MG CAP PO SCH (10:16)
[2021-05-20] MEDS: PANTOprazole 40 MG TAB PO SCH (10:16)
[2021-05-20] MEDS: GABAPENTIN 300 MG CAP PO SCH ×3 (10:16→21:07)
[2021-05-20] MEDS: DULoxetine HCL 30 MG CAP PO SCH (10:16)
[2021-05-20] MEDS: FEXOFENADINE 60 MG TAB PO SCH (10:16)
[2021-05-20] MEDS: predniSONE 10 MG TABLET PO SCH (10:17)
[2021-05-20] MEDS: VITAMIN B COMPLEX TAB PO SCH (10:17)
[2021-05-20] MEDS: POTASSIUM CHLORIDE CRTAB 20 MEQ TABCR PO SCH (10:17)
[2021-05-20] MEDS: FLUCONAZOLE 100 MG TAB PO SCH (12:58)
[2021-05-20] MEDS: ATORVASTATIN 40 MG TAB PO SCH (12:58)
[2021-05-20] MEDS ORDERED: SODIUM CHLORIDE 0.9% 1000ML 500 ML IV ONE (13:31)
[2021-05-20] MEDS ORDERED: NORMOSOL-R 1,000 ML IV SCH (14:02)
[2021-05-20] MEDS ORDERED: Nursing to Pharmacy Communication SCH (15:30)
--- NOTE | 2021-05-20 15:33 | CT Scan Report ---
CHEST CTA for PULMONARY ARTERIES CT DOSE: 475.40 mGycm HISTORY: COVID+, tachycardia; eval for PE. TECHNIQUE: Multiaxial CT images of the chest were performed following the intravenous administration of contrast to evaluate the pulmonary arteries. Maximal intensity projection images were also obtaine d. A dose lowering technique was utilized adhering to the principles of ALARA. COMPARISON STUDY: Chest CT 11/20/2019. FINDINGS: Normal caliber thoracic aorta with no evidence for dissection. No pleural or pericardial ef fusions. The heart is normal in size. No filling defects within the pulmonary arteries to suggest a p ulmonary embolus. Moderate calcified plaque within the coronary arteries. Limited views of the upper abdomen demonstrate a normal liver and spleen. Prior cholecystectomy. No mediastinal or hilar lymphad enopathy. Old, healed left-sided rib fractures. No pneumothorax. There is a small right azygos lobe. The central airways are patent. There are scattered peripheral irregular airspace opacities consisten t with a multifocal viral pneumonia. IMPRESSION: 1. No evidence for pulmonary embolus. 2. Scattered peripheral multifocal airspace opacities consistent with a viral pneumonia. ACT 112: Negative or not required by law. Electronically signed by: Osbaldo Washington M.D. 05/20/2021 3:32 PM
[2021-05-20] MEDS: FAMOTIDINE 40 MG TABLET PO SCH (21:07)
[2021-05-20] MEDS: QUEtiapine FUMARATE 100 MG TABLET PO SCH (21:08)
[2021-05-20] MEDS: PRAZOSIN HCL 1 MG CAP PO SCH (21:08)
[2021-05-20] MEDS: MIDODRINE HCL 2.5 MG TAB PO SCH (21:09)
--- NOTE | 2021-05-20 21:35 | Hospitalist Progress Note ---
Date of Service May 20, 2021 Assessment & Plan (1) Orthostasis: Plan: during the afternoon the patient stood for staff from the chair and had significant dizziness orthostatic BPs checked - SBP was 80 with standing thus, tachycardia may be due to orthostasis/autonomic insufficiency continue IV fluids resume midodrine and increase the dose to 5mg TID orthostatic BP checks qshift COVID has been known to make autonomic insuff worse (2) Acute metabolic encephalopathy: Plan: Ongoing. Suspect delirium due to resolving/smoldering COVID-19 illness, +/- UTI, + hospital psychosis, etc. Supportive care. Seroquel HS. If related to COVID-19 this could last for some time. Treat the candidal UTI as below. (3) UTI (urinary tract infection): Plan: Prior UTI treated with Invanz from 05/01 - 05/07. Urine culture again this admission grew Klebsiella pneumoniae and marcie albicans. Received once again 7+ days of IV ertapenem and zosyn. IV abx stopped. Cont diflucan, today is day #2 of such. Benitez in place. (4) Urinary retention: Plan: Cont benitez Would leave for at least 5-7 days then re-attempt voiding trial (5) Acute respiratory failure with hypoxia: Plan: 2nd COVID-19 pneumonia. essentially resolved. does use O2 at home although during prior hospital stay her O2 sats were normal in RA. [id number] her CT today shows minimal pneumonia and O2 sats are high 90s on only 2 L NC (6) Opiate withdrawal: Plan: She had been taking oxycodone for a long time (2-3 years or longer). Agree w/ prior MD that she was likely withdrawing. Placed back on oxycodone 10mg BID yesterday. 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 (9) CKD (chronic kidney disease), stage III: Plan: BMP am (10) Compression fracture: Plan: Lumbar seems stable/controlled today from pain standpoint cont lidoderms, oxy, etc (11) Hypothyroidism: Plan: Continue levothyroxine 88 mcg daily Most recent TSH wnl (12) Adrenocortical insufficiency: Plan: Continue prednisone 10mg PO daily - this is for chronic RA (13) Hyperlipidemia: Plan: atorvastatin 40 mg daily (14) Hypertension: Plan: Controlled (15) DVT prophylaxis: Plan: heparin 5000 TID Plan: Again I updated the pt's daughter extensively by phone this evening explained my ongoing concerns about severe failure to thrive, dehydration, poor intake, confusion discussed that if this doesn't improve soon we will need to address goals of care she voiced understanding Admission and Anticipated Discharge Date Admission Date: May 13, 2021 Subjective tele wnl overnight staff report that she sat in chair for 3-4 hours - dozed and napped much of that time period during my visit she was resting in bed - very tired ate fair at breakfast/lunch but liquid intake is poor and - she skipped dinner this evening patient confused - knew it was "21" (for the year), but when asked about the month/day/date - she kept saying "21" admitted to ongoing fatigue Review of Systems Review of Systems: Unobtainable due to cognitive status Physical Exam Physical Exam: gen - again confused, weak-appearing, frail, looks worse overall than prior exams skin - pallor mouth - MM again dry heart - RRR, s1 s2 lungs - minimal fine dry rales bases; no distress abd - soft NT ND BS+; ostomy with bag in place, liquid brown stool ext - pulses 2+ bilaterally neuro - strength b/l legs about 5/5 psych - oriented to person/place only Results & Data Results & Data ([facility]) Vital Signs (Past 12 Hours) Vital Signs Temp Pulse Pulse Resp BP BP Pulse Ox 05/20/21 19:00 36.6 C 84 18 132/72 99 05/20/21 15:56 90 05/20/21 15:10 36.3 C L 90 18 113/54 L 98 05/20/21 12:19 36 C L 20 85/45 L 127/73 99 Laboratory Results Laboratory Results - last 24 hr 05/20/21 05/20/21 06:00 06:00 WBC 8.67 RBC 3.72 L Hgb 9.7 L Hct 32.4 L MCV 87.1 MCH 26.1 MCHC 29.9 L RDW Std Deviation 53.6 H RDW Coeff of Omar 16.7 H Plt Count 259 MPV 9.2 Sodium 137 Potassium 4.3 D Chloride 111 H Carbon Dioxide 22 Anion Gap 4.0 BUN 22 H D Creatinine 1.10 Est Cr Clr Drug Dosing 32.7 Est GFR ( Amer) 51.9 Est GFR (Non-Af Amer) 44.8 BUN/Creatinine Ratio 19.6 Glucose 82 Calcium 8.5 Magnesium 2.2 C-Reactive Protein 2.51 H Diagnostic Findings Chest CTA 05/19/21 15:19 CHEST CTA for PULMONARY ARTERIES CT DOSE: 475.40 mGycm HISTORY: COVID+, tachycardia; eval for PE. TECHNIQUE: Multiaxial CT images of the chest were performed following the intravenous administration of contrast to evaluate the pulmonary arteries. Maximal intensity projection images were also obtained. A dose lowering technique was utilized adhering to the principles of ALARA. COMPARISON STUDY: Chest CT 11/20/2019. FINDINGS: Normal caliber thoracic aorta with no evidence for dissection. No pleural or pericardial effusions. The heart is normal in size. No filling defects within the pulmonary arteries to suggest a pulmonary embolus. Moderate calcified plaque within the coronary arteries. Limited views of the upper abdomen demonstrate a normal liver and spleen. Prior cholecystectomy. No mediastinal or hilar lymphadenopathy. Old, healed left-sided rib fractures. No pneumothorax. There is a small right azygos lobe. The central airways are patent. There are scattered peripheral irregular airspace opacities consistent with a multifocal viral pneumonia. IMPRESSION: 1. No evidence for pulmonary embolus. 2. Scattered peripheral multifocal airspace opacities consistent with a viral pneumonia. ACT 112: Negative or not required by law. Electronically signed by: Osbaldo Washington M.D. 05/20/2021 3:32 PM PG Care Time/CCT Total # of Minutes Spent Total Time Spent with Patient: Total time spent is greater than 50% in coordination of care (as documented) at patient's floor/unit and/or counseling patient: Coding Level of Care Code 65945 Subseq Hosp Care Lvl 3 Diagnoses Acute metabolic encephalopathy G93.41 UTI (urinary tract infection) N39.0 Urinary retention R33.9 Acute respiratory failure with hypoxia J96.01 Opiate withdrawal F11.23 Bacterial pneumonia J15.9 COVID U07.1 CKD (chronic kidney disease), stage III N18.32 Chronic kidney disease stage 3 subtype: stage 3b (GFR 30-44) Compression fracture Hypothyroidism E03.9 Adrenocortical insufficiency E27.40 Hyperlipidemia E78.5 Hypertension I10 Orthostasis I95.1 DVT prophylaxis Z29.9 (1) CKD (chronic kidney disease), stage III Chronic kidney disease stage 3 subtype: stage 3b (GFR 30-44) Qualified Code(s): N18.32 - Chronic kidney disease, stage 3b
[2021-05-21] MEDS: LEVOTHYROXINE SODIUM 88 MCG TABLET PO SCH (06:01)
[2021-05-21] MEDS: HEPARIN SOD 5,000 UNIT/0.5 ML VIAL SQ SCH ×3 (06:01→21:11)
[2021-05-21 08:47] LABS: BUN Creatinine Ratio 19.3 (10-20); Calcium 8.7 mg/dl (8.5-10.1); Est GFR (African American) 61.2 ml/min; Est GFR (Non-African American) 52.8 ml/min; Potassium 4.4 mmol/L (3.5-5.1)
[2021-05-21] MEDS: MIDODRINE HCL 2.5 MG TAB PO SCH ×3 (09:51→17:49)
[2021-05-21] MEDS: HYDROXYCHLOROQUINE SULFATE 200 MG TAB PO SCH (09:51)
[2021-05-21] MEDS: ACETAMINOPHEN 500 MG TAB PO SCH ×3 (09:51→21:16)
[2021-05-21] MEDS: CALCITONIN SALMON NA 200 IU/AC 3.7 ML BTL SCH (09:52)
[2021-05-21] MEDS: CLOPIDOGREL BISULFATE 75 MG TAB PO SCH (09:52)
[2021-05-21] MEDS: CHOLECALCIFEROL 1,000 UNITS 25 MCG TAB PO SCH (09:52)
[2021-05-21] MEDS: CYANOCOBALAMIN 500 MCG TABLET (VITAMIN B-12) PO SCH (09:52)
[2021-05-21] MEDS: DULoxetine HCL 30 MG CAP PO SCH (09:53)
[2021-05-21] MEDS: GABAPENTIN 300 MG CAP PO SCH ×3 (09:54→21:10)
[2021-05-21] MEDS: FEXOFENADINE 60 MG TAB PO SCH (09:54)
[2021-05-21] MEDS: DULoxetine HCL 60 MG CAP PO SCH (09:54)
[2021-05-21] MEDS: FLUCONAZOLE 100 MG TAB PO SCH (09:54)
[2021-05-21] MEDS: ADVANCED PROBIOTIC 1250 MG CAPSULE PO SCH (09:54)
[2021-05-21] MEDS: MIRABEGRON ER 25 MG TAB PO SCH (09:55)
[2021-05-21] MEDS: PANTOprazole 40 MG TAB PO SCH (09:55)
[2021-05-21] MEDS: CEROVITE ADV FORMULA TAB PO SCH (09:55)
[2021-05-21] MEDS: oxyCODONE HCL IR 5 MG TAB (IMMEDIATE RELEASE) PO SCH ×2 (09:55→21:10)
[2021-05-21] MEDS: predniSONE 10 MG TABLET PO SCH (09:56)
[2021-05-21] MEDS: POTASSIUM CHLORIDE CRTAB 20 MEQ TABCR PO SCH (09:56)
[2021-05-21] MEDS: VITAMIN B COMPLEX TAB PO SCH (09:56)
[2021-05-21] MEDS: ATORVASTATIN 40 MG TAB PO SCH (11:59)
[2021-05-21] MEDS: FAMOTIDINE 40 MG TABLET PO SCH (21:10)
[2021-05-21] MEDS: PRAZOSIN HCL 1 MG CAP PO SCH (21:10)
[2021-05-21] MEDS: QUEtiapine FUMARATE 100 MG TABLET PO SCH (21:11)
--- NOTE | 2021-05-21 22:12 | Hospitalist Progress Note ---
Date of Service May 21, 2021 Assessment & Plan (1) Orthostasis: Plan: has known dx of POTS has been worse in hospital due to dehydration/poor intake and COVID-19 can also worsen autonomic insufficiency resumed midodrine and increased the dose to 5mg TID orthostatic BP checks qshift (2) Acute metabolic encephalopathy: Plan: Ongoing. Suspect delirium due to resolving/smoldering COVID-19 illness, +/- UTI, + hospital psychosis, etc. Supportive care. Seroquel HS. If related to COVID-19 this could last for some time. Treat the candidal UTI as below. (3) UTI (urinary tract infection): Plan: Prior UTI treated with Invanz from 05/01 - 05/07. Urine culture again this admission grew Klebsiella pneumoniae and marcie albicans. Received once again 7+ days of IV ertapenem and zosyn. IV abx stopped. Cont diflucan, today is day #3 of such[address] in place. Voiding trial in 3-4 days. (4) Urinary retention: Plan: Cont benitez Would leave for another 3-4 days then re-attempt voiding trial Or, if she goes hospice status, would leave benitez (5) Acute respiratory failure with hypoxia: Plan: 2nd COVID-19 pneumonia. essentially resolved. does use O2 at home although during prior hospital stay her O2 sats were normal in [place]. (6) Opiate withdrawal: Plan: resolved with resuming her oxycodone 10mg BID (7) Bacterial pneumonia: Plan: Doubtful Pneumonia all likely COVID CTA chest today noted (8) COVID: Plan: Off steroids for recent COVID-19 pneumonia Supportive care d/c isolation as approved by infection manufacturing controls engineer (9) CKD (chronic kidney disease), stage III: Plan: BMP stable (10) Compression fracture: Plan: Lumbar pain controlled w/ oxycodone cont lidoderms, oxy, etc (11) Hypothyroidism: Plan: Continue levothyroxine 88 mcg daily Most recent TSH wnl (12) Adrenocortical insufficiency: Plan: Continue prednisone 10mg PO daily - this is for chronic RA (13) Hyperlipidemia: Plan: atorvastatin 40 mg daily (14) Hypertension: Plan: Controlled (15) DVT prophylaxis: Plan: heparin 5000 TID Plan: Pat updated extensively at bedside I believe we are heading in a palliative direction, potentially formal hospice status will consult palliative care failure to thrive persists 2nd to COVID Admission and Anticipated Discharge Date Admission Date: May 13, 2021 Subjective pt's daughter, Lise, at bedside during the visit. pt is now out of airborne isolation. patient about the same as yesterday. tired. poor appetite as previous. patient knew her daughter's name but couldn't tell me the year. she kept saying she "broke her back right here" (she points to the L shoulder) Lise mentioned that she and her sister Tiffani are discussing options for post- discharge. She even asked about hospice at home. Review of Systems Review of Systems: gen - fatigued, weak cv - no pain pulm - mild cough, but I have never heard her cough during any of my visits GI - no pain musculo - no lumbar pain Physical Exam Physical Exam: gen - again confused, weak-appearing, frail skin - pallor mouth - MM dry heart - RRR, s1 s2 lungs - scant fine dry rales bases; no distress abd - soft NT ND BS+; ostomy with bag in place, liquid brown stool ext - pulses 2+ bilaterally psych - oriented to person/place only Results & Data Results & Data ([facility]) Vital Signs (Past 12 Hours) Vital Signs Temp Pulse Resp BP BP Pulse Ox Pulse Ox 05/21/21 15:03 36.5 C 91 H 18 122/65 94 05/21/21 11:10 36.3 C L 95 H 18 120/69 99 05/21/21 11:09 98 Laboratory Results Laboratory Results - last 24 hr 05/21/21 07:49 Sodium 139 Potassium 4.4 Chloride 109 H Carbon Dioxide 26 Anion Gap 4.0 BUN 19 H Creatinine 0.96 Est Cr Clr Drug Dosing 38.0 Est GFR ( Amer) 61.2 Est GFR (Non-Af Amer) 52.8 BUN/Creatinine Ratio 19.3 Glucose 82 Calcium 8.7 PG Care Time/CCT Total # of Minutes Spent Total Time Spent with Patient: Total time spent is greater than 50% in coordination of care (as documented) at patient's floor/unit and/or counseling patient: Coding Level of Care Code 33859 Subseq Hosp Care Lvl 2 Diagnoses Orthostasis I95.1 Acute metabolic encephalopathy G93.41 UTI (urinary tract infection) N39.0 Urinary retention R33.9 Acute respiratory failure with hypoxia J96.01 Opiate withdrawal F11.23 Bacterial pneumonia J15.9 COVID U07.1 CKD (chronic kidney disease), stage III N18.32 Chronic kidney disease stage 3 subtype: stage 3b (GFR 30-44) Compression fracture Hypothyroidism E03.9 Adrenocortical insufficiency E27.40 Hyperlipidemia E78.5 Hypertension I10 DVT prophylaxis Z29.9 (1) CKD (chronic kidney disease), stage III Chronic kidney disease stage 3 subtype: stage 3b (GFR 30-44) Qualified Code(s): N18.32 - Chronic kidney disease, stage 3b
[2021-05-22] MEDS: HEPARIN SOD 5,000 UNIT/0.5 ML VIAL SQ SCH ×3 (05:30→21:29)
[2021-05-22] MEDS: LEVOTHYROXINE SODIUM 88 MCG TABLET PO SCH (05:30)
[2021-05-22] MEDS: CYANOCOBALAMIN 500 MCG TABLET (VITAMIN B-12) PO SCH (07:41)
[2021-05-22] MEDS: FLUCONAZOLE 100 MG TAB PO SCH (07:41)
[2021-05-22] MEDS: DULoxetine HCL 60 MG CAP PO SCH (07:41)
[2021-05-22] MEDS: POTASSIUM CHLORIDE CRTAB 20 MEQ TABCR PO SCH (07:42)
[2021-05-22] MEDS: predniSONE 10 MG TABLET PO SCH (07:42)
[2021-05-22] MEDS: MIRABEGRON ER 25 MG TAB PO SCH (07:42)
[2021-05-22] MEDS: GABAPENTIN 300 MG CAP PO SCH ×3 (07:42→21:28)
[2021-05-22] MEDS: CEROVITE ADV FORMULA TAB PO SCH (07:43)
[2021-05-22] MEDS: FEXOFENADINE 60 MG TAB PO SCH (07:43)
[2021-05-22] MEDS: CLOPIDOGREL BISULFATE 75 MG TAB PO SCH (07:43)
[2021-05-22] MEDS: VITAMIN B COMPLEX TAB PO SCH (07:43)
[2021-05-22] MEDS: ADVANCED PROBIOTIC 1250 MG CAPSULE PO SCH (07:43)
[2021-05-22] MEDS: MIDODRINE HCL 2.5 MG TAB PO SCH ×3 (07:44→17:45)
[2021-05-22] MEDS: CHOLECALCIFEROL 1,000 UNITS 25 MCG TAB PO SCH (07:44)
[2021-05-22] MEDS: HYDROXYCHLOROQUINE SULFATE 200 MG TAB PO SCH (07:44)
[2021-05-22] MEDS: DULoxetine HCL 30 MG CAP PO SCH (07:45)
[2021-05-22] MEDS: PANTOprazole 40 MG TAB PO SCH (07:45)
[2021-05-22] MEDS: oxyCODONE HCL IR 5 MG TAB (IMMEDIATE RELEASE) PO SCH ×2 (07:58→20:31)
[2021-05-22] MEDS: ACETAMINOPHEN 500 MG TAB PO SCH ×3 (07:58→21:27)
[2021-05-22] MEDS: CALCITONIN SALMON NA 200 IU/AC 3.7 ML BTL SCH (07:58)
[2021-05-22] MEDS: ATORVASTATIN 40 MG TAB PO SCH (12:12)
--- NOTE | 2021-05-22 14:57 | Palliative Care Consultation ---
Date of Consultation May 22, 2021 Assessment & Plan (1) Anorexia: Post covid infection. (2) COVID: (3) Palliative care encounter: I spoke with her daughters on the phone. They have been talking with case management about SNF placement. They have been thinking about her having therapy and attempting to get stronger and nearer her previous baseline at the SNF. They did also have questions about hospice. We discussed hospice philosophy and what would be provided in the hospice benefit. We also discussed associated prognosis for hospice of life expectancy six months or less which if she continues on her current course, would be reasonable. They are not able to provide 24/7 care for her at home and would want SNF placement. We discussed maximizing care home benefit which would pay for her stay at SNF as long as she qualifies. We discussed that her rehab potential is limited and she is not likely to return to her prior level of function but they would like to try to see how much she might improve. She could transition to hospice at the SNF when appropriate. I talked with them about her code status and they tell me that she had said on her last admission that she did not want resuscitation which is consistent with the orders at that time. Current full code status changed to DNR consistent with her wishes. History of Present Illness Reason for Consultation: goals of care Requesting Physician: Dr. Winkler Attending Physician: Sebas Winkler History of Present Illness 89 yo lady with a history of covid 19 infection and failure to thrive. She also has rheumatoid arthritis, CAD and adrenal insufficiency. She had been previously hospitalized with an L3 compression fracture and was discharged to home be readmitted the next day with confusion and lethargy. She was also note dot have decreased urinary output. She has not had significant respiratory symptoms post covid but does continue to have anorexia, confusion and generalized weakness. She had been living at home with postpartum nurse caregivers prior to her illness. She is currently awake and pleasant but her first question to me is "did I bring my mother here with me?" She has eaten only a few bites of her lunch and does not take any further bites, even with encouragement. She denies pain. Allergies Allergy/AdvReac Type Severity Reaction Status Date / Time nitrofurantoin Allergy Severe HIVES Verified 05/13/21 14:23 scallops Allergy Severe THROAT Verified 05/13/21 14:23 SWELLS ciprofloxacin Allergy Intermediate HIVES Verified 05/13/21 14:23 latex Allergy Intermediate RASH Verified 05/13/21 14:23 Quinolones Allergy Intermediate HIVES Verified 05/13/21 14:23 fluticasone Allergy Unknown ADVAIR-UNKN Verified 05/13/21 14:23 OWN salmeterol Allergy Unknown ADVAIR Verified 05/13/21 14:23 celecoxib AdvReac Intermediate barretts Verified 05/13/21 14:23 esophagus lactose AdvReac Intermediate GI UPSET Verified 05/13/21 14:23 morphine AdvReac Intermediate NAUSEA AND Verified 05/13/21 14:23 VOMITING Home Medications Medication Instructions Recorded Confirmed Type cholecalciferol (vitamin D3) 50 2,000 units PO QAM 07/07/18 05/13/21 History mcg (2,000 unit) capsule nitroglycerin 0.4 mg sublingual 0.4 mg SL Q5M PRN #1 tab 07/07/18 05/13/21 Rx tablet cyanocobalamin (vitamin B-12) 1,000 mcg PO QAM 08/31/18 05/13/21 History 1,000 mcg tablet (Vitamin B-12) vit A 1,000 unit-C 200 mg-E 60 1 tab PO QAM 08/31/18 05/13/21 History unit-lutein 2 mg and minerals tablet (Ocuvite with Lutein) gabapentin 300 mg capsule 300 mg PO TID 09/26/18 05/13/21 History vitamin B complex 1 tab PO QAM 09/26/18 05/13/21 History acetaminophen 500 mg tablet 1,000 mg PO Q6H PRN 01/03/19 05/13/21 History (Tylenol Extra Strength) polyethylene glycol 3350 17 gram 17 gm PO QAM #1 ea 11/25/19 05/13/21 Rx oral powder packet (Miralax) lidocaine 5 % topical patch 1 patch TOP DAILY PRN #30 ea 03/26/20 05/13/21 Rx ondansetron 8 mg disintegrating 8 mg PO Q6H PRN #20 tab 11/28/20 05/13/21 Rx tablet midodrine 5 mg tablet 5 mg PO QAM 02/17/21 05/13/21 History mirabegron 50 mg tablet,extended 50 mg PO DAILY #90 tab 03/24/21 05/13/21 Rx release 24 hr (Myrbetriq) prednisone 10 mg tablet 10 mg PO QAM #90 tab 04/22/21 05/13/21 Rx clopidogrel 75 mg tablet (Plavix) 75 mg PO QAM #90 tab 04/23/21 05/13/21 Rx Synthroid 88 mcg tablet 88 mcg PO QAM #90 tab NS 04/24/21 05/13/21 Rx (levothyroxine) atorvastatin 40 mg tablet 40 mg PO QDL #90 tab 04/24/21 05/13/21 Rx duloxetine 30 mg capsule,delayed 30 mg PO QAM #90 cap 04/24/21 05/13/21 Rx release duloxetine 60 mg capsule,delayed 60 mg PO QAM #90 cap 04/24/21 05/13/21 Rx release (Cymbalta) famotidine 40 mg tablet 40 mg PO HS #90 tab 04/24/21 05/13/21 Rx fluticasone propionate 50 2 spray INTRANASAL QAM PRN #15.8 ml 04/24/21 05/13/21 Rx mcg/actuation nasal spray,suspension (Flonase Allergy Relief) hydroxychloroquine 200 mg tablet 200 mg PO QAM #90 tab 04/24/21 05/13/21 Rx prazosin 1 mg capsule 1 mg PO HS #90 cap 04/24/21 05/13/21 Rx quetiapine 200 mg tablet 200 mg PO HS #90 tab 04/24/21 05/13/21 Rx dexlansoprazole 60 mg 60 mg PO QAM #90 cap 04/25/21 05/13/21 Rx capsule,biphase delayed release (Dexilant) calcitonin (salmon) 200 1 spray INTRANASAL QAM 05/01/21 05/13/21 History unit/actuation nasal spray oxycodone 10 mg tablet 10 mg PO TID 05/01/21 05/13/21 History diclofenac sodium 1 % topical gel 4 g EXT QID PRN MDD 16g 05/13/21 05/13/21 History (Voltaren Arthritis Pain) fexofenadine 60 mg tablet 60 mg PO QAM 05/13/21 05/13/21 History phenazopyridine 95 mg tablet 95 mg PO TID PRN 05/13/21 05/13/21 History Patient History Medical History Adrenocortical insufficiency Allergic rhinitis Arteriosclerosis of coronary artery Asthma Balance problem Barretts esophagus Chronic back pain Chronic cystitis Chronic respiratory failure with hypoxia CKD (chronic kidney disease), stage III does not follow with nephrology Clostridium difficile carrier Colovaginal fistula ? 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 Herpes simplex type 1 infection hx Hiatal hernia History of aspiration pneumonia last occurence 11/2019 History of pneumonia Hypercholesterolemia Hypothyroidism Impaired mobility and ADLs walker and wheelchair as needed Iron deficiency anemia Lactose intolerance prison (current) use of systemic steroids Long-term use of hydroxychloroquine Lumbar canal stenosis Major depressive disorder, recurrent 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 Nausea On home oxygen therapy 3 LPM cont Orthostatic hypotension Peripheral arterial disease Peripheral edema Peripheral neuropathy Polyarthritis Poor balance Pre-diabetes Presence of colostomy Rheumatoid arthritis Solitary pulmonary nodule Steroid-induced osteopenia TIA (transient ischemic attack) 2016 Urinary incontinence Urinary retention Surgical History H/O: hysterectomy HOLGER, BSO History of cardiac catheterization 2010 -- no stents/angioplasty -- [facility] - [facility] - dtr believes she follows w/ [facility] History of colon surgery sigmoid colon resection History of hip replacement bilateral 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 History of tooth extraction History of vascular surgery lower extremity unknown which leg- stents Hx of cholecystectomy Family History Grandmother (Maternal) Breast cancer Uterine cancer Father Cardiomyopathy Mother Alzheimer disease Son Colorectal cancer Daughter Breast cancer Other Cancer Diabetes Gallbladder disease Heart disease Hypertension No family history of adverse response to anesthesia Seizure Denies family history of Malignant hypothermia due to anesthesia Ovarian cancer Prostate cancer Crohn's disease Myocardial infarction Bleeding disorder Ulcerative colitis Social History Smoking Status: Never smoker Second Hand Exposure: No; Hx Alcohol Use: No Hx Substance Use: No Preferred Language: Qatari Communication Ability: Impaired Visual Impairment: No Limitations Hearing Ability: Hard of Hearing Manager Client Support Required: No Beliefs That Will Affect Care: None marital status: / Current Living Situation: Alone Current Living Situation Comment: has caretakers during day current occupational status: retired How many Children do You have: 5 Feels Safe at Home: Yes Childhood Exposure to Second-Hand Smoke: Yes caffeine: Yes during the past year weight has: remained stable Dental Care, Regularly: Yes Physical Activity Frequency: Does not Exercise Seatbelt Use: always Sunscreen Use: Yes Do you think of yourself as: straight/heterosexual Assistive Devices: Glasses Review of Systems Review of Systems: [place] Symptom Assessment Scale Pain 0/3 Dyspnea 1/3 with exertion Nausea 0/3 Anxiety 1/3 Fatigue 2/3 Palliative Performance Score 40% Physical Exam Constitutional: no acute distress Respiratory: normal respiratory effort; no labored breathing Gastrointestinal (Abdomen): Inspection/Auscultation: abdomen not distended Percussion/Palpation: abdomen nontender Neurologic: awake and + confused Psychiatric: Orientation: + not oriented to place and + not oriented to time Results & Data ([facility]) Vital Signs (Past 12 Hours) Vital Signs Temp Pulse Resp BP Pulse Ox 05/22/21 06:40 97.9 F 93 H 16 138/72 98 PG Care Time/CCT Total # of Minutes Spent Total Time Spent: 70 Total Time Spent with Patient: Total time spent is greater than 50% in coordination of care (as documented) at patient's floor/unit and/or counseling patient: hospice, prognosis, goals of care, code status Coding Level of Care Code 13840 Initial Inpt Care Lvl 3 Diagnoses Anorexia R63.0 COVID U07.1 Palliative care encounter Z51.5
[2021-05-22] MEDS: FAMOTIDINE 40 MG TABLET PO SCH (21:28)
[2021-05-22] MEDS: PRAZOSIN HCL 1 MG CAP PO SCH (21:28)
[2021-05-22] MEDS: QUEtiapine FUMARATE 100 MG TABLET PO SCH (21:29)
--- NOTE | 2021-05-22 22:51 | Hospitalist Progress Note ---
Date of Service May 22, 2021 Assessment & Plan (1) Orthostasis: Plan: has known dx of POTS has been worse in hospital due to dehydration/poor intake COVID-19 can also worsen autonomic insufficiency I resumed her midodrine, and I increased the dose to 5mg TID orthostatic BPs today -- HRs berry with sitting and standing, but all 3 BPs were within range. Cont midodrine 5mg TID. would stop her alpha zeinab. (2) Acute metabolic encephalopathy: Plan: Ongoing. Suspect delirium due to resolving/smoldering COVID-19 illness, +/- UTI, + hospital psychosis, etc. Supportive care. Seroquel HS. If related to COVID-19 this could last for some time. Treat the candidal UTI as below. (3) UTI (urinary tract infection): Plan: Prior MDR Klebsiella UTI treated with Invanz from 05/01 - 05/07. Was discharged home, came back to hospital 24 hours later. Urine culture again this admission grew Klebsiella pneumoniae and marcie albicans. Received once again 7+ days of IV ertapenem and zosyn. These abx are now stopped. Cont diflucan, today is day #4 of such. Plan 7 days in total. Benitez in place. Consider voiding trial in 3-4 days. (4) Urinary retention: Plan: s/p benitez insertion earlier this week. Would leave for another 3-4 days then re-attempt voiding trial. Or, if she goes hospice status, would leave benitez for comfort/palliation. (5) Acute respiratory failure with hypoxia: Plan: 2nd COVID-19 pneumonia. essentially resolved. does use O2 at home although during prior hospital stay her O2 sats were normal in RA. would cont the SD O2 for comfort purposes. (6) Opiate withdrawal: Plan: resolved with resuming her oxycodone 10mg BID (7) Bacterial pneumonia: Plan: Doubtful Some suspicion of such at time of this admission but her pneumonia was likely all COVID related. CTA chest 2 days ago showed b/l mild viral pneumonia but nothing lobar no PEs either (8) COVID: Plan: Off steroids for recent COVID-19 pneumonia Supportive care d/c isolation as approved by infection fire controlman (isolation d/c on 05/21) (9) CKD (chronic kidney disease), stage III: Plan: BMP stable (10) Compression fracture: Plan: occurred about 3-4 weeks ago Lumbar pain controlled w/ oxycodone cont lidoderms, oxy, scheduled tylenol 1gm TID, etc (11) Hypothyroidism: Plan: Continue levothyroxine 88 mcg daily Most recent TSH wnl (12) Adrenocortical insufficiency: Plan: Continue prednisone 10mg PO daily - this is for chronic RA (13) Hyperlipidemia: Plan: atorvastatin 40 mg daily (14) Hypertension: Plan: Controlled (15) DVT prophylaxis: Plan: heparin 5000 TID Plan: Lise Neal updated extensively at bedside yesterday Tiffani, other daughter, updated twice earlier this week by phone I believe we are heading in a palliative direction, potentially formal hospice status palliative care saw in consult today verified DNR status options discussed family requesting trial of rehab, but rehab potential is very, very poor can transition to hospice at SNF failure to thrive again is 2nd to recent COVID-19 infection in the midst of advanced age & poor general health Admission and Anticipated Discharge Date Admission Date: May 13, 2021 Subjective patient laying in bed during the visit she recalls her daughter Tiffani coming for a visit today when I asked her the day of the week she gave me a month could not tell me the year knows she is in the hospital states "I just want to go home" no new complaints liquid intake continues to be poor Review of Systems Review of Systems: gen - continues to have fatigue, weakness CV - no chest pain pulm - states hear "breathing is heavy" but during the entire stay she had no cough, no resp distress, etc - very comfortable GI - mild abd discomfort but again was comfortable entire visit Physical Exam Physical Exam: gen - laying in bed, confused, frai; appears to have EPS (smacking of gums/mouth constantly like on previous visits)l skin - pallor mouth - MM dry heart - RRR, s1 s2 lungs - scant fine dry rales bases; no distress abd - soft NT ND BS+; ostomy with bag in place, liquid brown stool ext - pulses 2+ bilaterally, no edema psych - oriented to person/place only Results & Data Results & Data ([facility]) Vital Signs (Past 12 Hours) Vital Signs Temp Pulse Resp BP Pulse Ox 05/22/21 22:39 36.7 C 101 H 16 154/70 H 96 05/22/21 15:26 36.6 C 89 18 146/71 H 98 PG Care Time/CCT Total # of Minutes Spent Total Time Spent with Patient: Total time spent is greater than 50% in coordination of care (as documented) at patient's floor/unit and/or counseling patient: Coding Level of Care Code 28476 Subseq Hosp Care Lvl 2 Diagnoses Orthostasis I95.1 Acute metabolic encephalopathy G93.41 UTI (urinary tract infection) N39.0 Urinary retention R33.9 Acute respiratory failure with hypoxia J96.01 Opiate withdrawal F11.23 Bacterial pneumonia J15.9 COVID U07.1 CKD (chronic kidney disease), stage III N18.32 Chronic kidney disease stage 3 subtype: stage 3b (GFR 30-44) Compression fracture Hypothyroidism E03.9 Adrenocortical insufficiency E27.40 Hyperlipidemia E78.5 Hypertension I10 DVT prophylaxis Z29.9 (1) CKD (chronic kidney disease), stage III Chronic kidney disease stage 3 subtype: stage 3b (GFR 30-44) Qualified Code(s): N18.32 - Chronic kidney disease, stage 3b
[2021-05-23] MEDS: LEVOTHYROXINE SODIUM 88 MCG TABLET PO SCH (06:03)
[2021-05-23] MEDS: HEPARIN SOD 5,000 UNIT/0.5 ML VIAL SQ SCH ×3 (06:03→20:35)
[2021-05-23 08:20] LABS: BUN Creatinine Ratio 15.1 (10-20); Calcium 9.3 mg/dl (8.5-10.1); Est GFR (African American) 70.9 ml/min; Est GFR (Non-African American) 61.2 ml/min; Potassium 4.1 mmol/L (3.5-5.1)
[2021-05-23] MEDS: POTASSIUM CHLORIDE CRTAB 20 MEQ TABCR PO SCH (08:20)
[2021-05-23] MEDS: ACETAMINOPHEN 500 MG TAB PO SCH ×3 (08:20→20:35)
[2021-05-23] MEDS: oxyCODONE HCL IR 5 MG TAB (IMMEDIATE RELEASE) PO SCH ×2 (08:20→20:29)
[2021-05-23] MEDS: FLUCONAZOLE 100 MG TAB PO SCH (08:23)
[2021-05-23] MEDS: FEXOFENADINE 60 MG TAB PO SCH (08:23)
[2021-05-23] MEDS: ADVANCED PROBIOTIC 1250 MG CAPSULE PO SCH (08:23)
[2021-05-23] MEDS: CLOPIDOGREL BISULFATE 75 MG TAB PO SCH (08:23)
[2021-05-23] MEDS: MIDODRINE HCL 2.5 MG TAB PO SCH ×3 (08:23→17:31)
[2021-05-23] MEDS: DULoxetine HCL 30 MG CAP PO SCH (08:23)
[2021-05-23] MEDS: CEROVITE ADV FORMULA TAB PO SCH (08:24)
[2021-05-23] MEDS: HYDROXYCHLOROQUINE SULFATE 200 MG TAB PO SCH (08:24)
[2021-05-23] MEDS: CHOLECALCIFEROL 1,000 UNITS 25 MCG TAB PO SCH (08:24)
[2021-05-23] MEDS: DULoxetine HCL 60 MG CAP PO SCH (08:24)
[2021-05-23] MEDS: MIRABEGRON ER 25 MG TAB PO SCH (08:24)
[2021-05-23] MEDS: predniSONE 10 MG TABLET PO SCH (08:24)
[2021-05-23] MEDS: CYANOCOBALAMIN 500 MCG TABLET (VITAMIN B-12) PO SCH (08:24)
[2021-05-23] MEDS: CALCITONIN SALMON NA 200 IU/AC 3.7 ML BTL SCH (08:25)
[2021-05-23] MEDS: VITAMIN B COMPLEX TAB PO SCH (08:25)
[2021-05-23] MEDS: PANTOprazole 40 MG TAB PO SCH (08:25)
[2021-05-23] MEDS: GABAPENTIN 300 MG CAP PO SCH ×3 (08:25→20:28)
[2021-05-23] MEDS: ATORVASTATIN 40 MG TAB PO SCH (13:16)
[2021-05-23] MEDS: QUEtiapine FUMARATE 100 MG TABLET PO SCH (20:29)
[2021-05-23] MEDS: FAMOTIDINE 40 MG TABLET PO SCH (20:29)
--- NOTE | 2021-05-23 20:36 | Hospitalist Progress Note ---
Date of Service May 23, 2021 Assessment & Plan (1) Orthostasis: Plan: -has known dx of POTS -has been worse in hospital due to dehydration/poor intake -COVID-19 can also worsen autonomic insufficiency -Continue midodrine 5mg TID - Alpha zeinab stopped (2) Acute metabolic encephalopathy: Plan: -Ongoing. -Suspect delirium due to resolving/smoldering COVID-19 illness, +/- UTI, + hospital psychosis, etc. -Supportive care. -Seroquel HS. -If related to COVID-19 this could last for some time. -Treat the candidal UTI as below. (3) UTI (urinary tract infection): Plan: -Prior MDR Klebsiella UTI treated with Invanz from 05/01 - 05/07. -Was discharged home, came back to hospital 24 hours later. -Urine culture again this admission grew Klebsiella pneumoniae and marcie albicans. -Received once again 7+ days of IV ertapenem and zosyn. - Cont diflucan 7 days in total. - Benitez in place. - Consider voiding trial in 3-4 days. (4) Urinary retention: Plan: -s/p benitez insertion earlier this week. -Would leave for another 3-4 days then re-attempt voiding trial. - if she goes hospice status, would leave benitez for comfort/palliation. (5) Acute respiratory failure with hypoxia: Plan: -2/2 COVID-19 pneumonia. - improving - SpO2 goal 90% - May cont the NH O2 for comfort purposes. (6) Opiate withdrawal: Plan: - resolved with resuming her oxycodone 10mg BID (7) Bacterial pneumonia: Plan: - Doubtful - Some suspicion of such at time of this admission but her pneumonia was likely all COVID related. - CTA chest 2 days ago showed b/l mild viral pneumonia but nothing lobar - no PEs (8) COVID: Plan: - Off steroids for recent COVID-19 pneumonia - Supportive care - d/c isolation as approved by infection air traffic control supervisor (isolation d/c on 05/21) (9) CKD (chronic kidney disease), stage III: Plan: BMP stable (10) Compression fracture: Plan: -occurred about 3-4 weeks ago -Lumbar -pain controlled w/ oxycodone -cont lidoderms, oxy, scheduled tylenol 1gm TID, etc (11) Hypothyroidism: Plan: -Continue levothyroxine 88 mcg daily -Most recent TSH wnl (12) Adrenocortical insufficiency: Plan: -Continue prednisone 10mg PO daily (13) Hyperlipidemia: Plan: -atorvastatin 40 mg daily (14) Hypertension: Plan: -Controlled (15) DVT prophylaxis: Plan: -heparin 5000 TID Plan: Discussed plan at bedside. Patient and her daughter recognize that rehab potential is poor, but would like to try and discharge to SNF for rehab when able to be accepted. She does not do well then she would consider hospice goals of care, but does not want to transition to these at this time. We will continue to follow, and anticipate discharge to SNF on 05/28. Admission and Anticipated Discharge Date Admission Date: May 13, 2021 Subjective Sherdian is seen at the bedside today, her daughter is present at time of assessment. Sheridan reports she continues to feel weak and fatigued, has not been out of bed yet today. Patient is pleasant, but is only oriented to place. Reports she is not very hungry, but is trying to eat more. Denies nausea, vomiting, stomach pain. No shortness of breath, no difficulty breathing today. Denies other pain at time of assessment. Teja daughter reports that her goal is still to attempt to move forward with SNF placement or where that she will not be able to be transferred until March. ~05/28 due to recent Covid positivity. Review of Systems Review of Systems: General: Continues to have global fatigue, weakness nonfocal Cardiovascular: Denies chest pain, palpitations, presyncope Pulmonary: Denies shortness of breath, difficulty breathing, cough GI: Denies abdominal pain today, denies nausea/vomiting but endorses decreased appetite Extremities: Denies MSK pain on assessment today Physical Exam Physical Exam: General: Oriented to place only appears chronically ill, thin. HEENT: Atraumatic, normocephalic. Pulm: CTAB A&P. -wheezes, -rales, -rhonchi. Symmetrical chest rise. No increase work of breathing. No respiratory distress. Cardiac: RRR, -mrg. Radial pulses intact and symmetrical. Abdominal: Nontender, nondistended, soft. BS present. PG Care Time/CCT Total # of Minutes Spent Total Time Spent with Patient: Total time spent is greater than 50% in coordination of care (as documented) at patient's floor/unit and/or counseling patient: Coding Level of Care Code 03355 Subseq Hosp Care Lvl 2 Diagnoses Orthostasis I95.1 Acute metabolic encephalopathy G93.41 UTI (urinary tract infection) N39.0 Urinary retention R33.9 Acute respiratory failure with hypoxia J96.01 Opiate withdrawal F11.23 Bacterial pneumonia J15.9 COVID U07.1 CKD (chronic kidney disease), stage III N18.32 Chronic kidney disease stage 3 subtype: stage 3b (GFR 30-44) Compression fracture Hypothyroidism E03.9 Adrenocortical insufficiency E27.40 Hyperlipidemia E78.5 Hypertension I10 DVT prophylaxis Z29.9 (1) CKD (chronic kidney disease), stage III Chronic kidney disease stage 3 subtype: stage 3b (GFR 30-44) Qualified Code(s): N18.32 - Chronic kidney disease, stage 3b
[2021-05-24] MEDS: HEPARIN SOD 5,000 UNIT/0.5 ML VIAL SQ SCH ×3 (05:51→21:15)
[2021-05-24] MEDS: LEVOTHYROXINE SODIUM 88 MCG TABLET PO SCH ×2 (05:51→19:52)
[2021-05-24 06:07] LABS: Basophils # (auto) 0.03 K/uL (0-0.2); Basophils % (auto) 0.4 %; Eosinophils # (auto) 0.27 K/uL (0-0.5); Eosinophils % (auto) 3.2 %; Hematocrit (blood only) 34.6 % (37-47); Hemoglobin 10.3 g/dL (12.0-16.0); Immature Granulocytes % (auto) 2.4 %; Lymphocytes # (auto) 1.86 K/uL (1.2-3.4); Lymphocytes % (auto) 22.2 %; Mean Corpuscular Hemoglobin 26.4 pg (25-34); Mean Corpuscular Hgb Conc 29.8 g/dL (32-36); Mean Corpuscular Volume 88.7 fL (80-100); Mean Platelet Volume 9.4 fL (7.4-10.4); Monocytes # (auto) 1.02 K/uL (0.11-0.59); Monocytes % (auto) 12.2 %; Neutrophils % (auto) 59.6 %; Nucleated RBC # (auto) 0.03 K/uL (0-0); Nucleated RBC % (auto) 0.4 %; Platelet Count 249 K/uL (130-400); RDW Coefficient of Variation 17.2 % (11.5-14.5); RDW Standard Deviation 54.8 fL (36.4-46.3); White Blood Count 8.38 K/uL (4.8-10.8)
[2021-05-24 06:43] LABS: BUN Creatinine Ratio 18.3 (10-20); Calcium 9.8 mg/dl (8.5-10.1); Creatinine Clr Calc Pharmacy 38.4 ml/min; Est GFR (Non-African American) 53.5 ml/min; Potassium 4.7 mmol/L (3.5-5.1)
[2021-05-24] MEDS: MIRABEGRON ER 25 MG TAB PO SCH (08:36)
[2021-05-24] MEDS: FLUCONAZOLE 100 MG TAB PO SCH (08:37)
[2021-05-24] MEDS: PANTOprazole 40 MG TAB PO SCH (08:37)
[2021-05-24] MEDS: ACETAMINOPHEN 500 MG TAB PO SCH ×3 (08:37→19:52)
[2021-05-24] MEDS: ADVANCED PROBIOTIC 1250 MG CAPSULE PO SCH (08:37)
[2021-05-24] MEDS: oxyCODONE HCL IR 5 MG TAB (IMMEDIATE RELEASE) PO SCH ×2 (08:37→19:51)
[2021-05-24] MEDS: DULoxetine HCL 60 MG CAP PO SCH (08:38)
[2021-05-24] MEDS: VITAMIN B COMPLEX TAB PO SCH (08:38)
[2021-05-24] MEDS: FEXOFENADINE 60 MG TAB PO SCH (08:38)
[2021-05-24] MEDS: DULoxetine HCL 30 MG CAP PO SCH (08:38)
[2021-05-24] MEDS: CLOPIDOGREL BISULFATE 75 MG TAB PO SCH (08:38)
[2021-05-24] MEDS: CEROVITE ADV FORMULA TAB PO SCH (08:38)
[2021-05-24] MEDS: HYDROXYCHLOROQUINE SULFATE 200 MG TAB PO SCH (08:38)
[2021-05-24] MEDS: CHOLECALCIFEROL 1,000 UNITS 25 MCG TAB PO SCH (08:38)
[2021-05-24] MEDS: predniSONE 10 MG TABLET PO SCH (08:38)
[2021-05-24] MEDS: GABAPENTIN 300 MG CAP PO SCH ×3 (08:39→19:53)
[2021-05-24] MEDS: MIDODRINE HCL 2.5 MG TAB PO SCH ×3 (08:39→18:07)
[2021-05-24] MEDS: CALCITONIN SALMON NA 200 IU/AC 3.7 ML BTL SCH (08:39)
[2021-05-24] MEDS: POTASSIUM CHLORIDE CRTAB 20 MEQ TABCR PO SCH (10:11)
[2021-05-24] MEDS: CYANOCOBALAMIN 500 MCG TABLET (VITAMIN B-12) PO SCH (10:12)
[2021-05-24] MEDS: ATORVASTATIN 40 MG TAB PO SCH (12:51)
--- NOTE | 2021-05-24 14:27 | Hospitalist Progress Note ---
Date of Service May 24, 2021 Assessment & Plan (1) Orthostasis: Plan: -has known dx of POTS -has been worse in hospital due to dehydration/poor intake -COVID-19 can also worsen autonomic insufficiency -Continue midodrine 5mg TID - Alpha zeinab stopped during admission (2) Acute metabolic encephalopathy: Plan: -Ongoing, patient follows commands appropriately and is oriented to place and name today -Suspect delirium due to resolving/smoldering COVID-19 illness, +/- UTI, + hospital psychosis, etc. -Supportive care. -Seroquel HS. -If related to COVID-19 this could last for some time. -Treat the candidal UTI as below. (3) UTI (urinary tract infection): Plan: -Prior MDR Klebsiella UTI treated with Invanz from 05/01 - 05/07. -Was discharged home, came back to hospital 24 hours later. -Urine culture again this admission grew Klebsiella pneumoniae and marcie albicans. -Received once again 7+ days of IV ertapenem and zosyn. - Cont diflucan 7 days in total (complete 05/26/2021) - Benitez in place. - Consider voiding trial in 2-3 days (4) Urinary retention: Plan: -s/p benitez insertion earlier this week. - if she goes hospice status, would leave benitez for comfort/palliation. (5) Acute respiratory failure with hypoxia: Plan: -2/2 COVID-19 pneumonia. - improving - SpO2 goal 90% - May cont the [place] O2 for comfort purposes. (6) Opiate withdrawal: Plan: - resolved with resuming her oxycodone 10mg BID (7) Bacterial pneumonia: Plan: - Doubtful - Some suspicion of such at time of this admission but her pneumonia was likely all COVID related. 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 She does not do well then she would consider hospice goals of care, but does not want to transition to these at this time. We will continue to follow, and anticipate discharge to SNF on 05/28. Admission and Anticipated Discharge Date Admission Date: May 13, 2021 Mark Swartz is seen at the bedside this morning. She reports she is comfortable, and feels mostly the same as yesterday. Reports she had breakfast, no nausea and was able to eat "okay ". Voices no specific questions or concerns, and expresses understanding that she is medically doing well but pending discharge to rehab which is delayed due to her prior Covid positivity. No other questions or concerns at time of assessment. Review of Systems Review of Systems: General: Continues to have global fatigue, no specific complaints Cardiovascular: Denies chest pain, palpitations, presyncope Pulmonary: Denies shortness of breath, difficulty breathing, cough GI: Denies abdominal pain today, denies nausea/vomiting, reports appetite was "okay "this morning Extremities: Denies MSK pain on assessment today Physical Exam Physical Exam: General: Oriented to place only appears chronically ill, thin. HEENT: Atraumatic, normocephalic. Pulm: CTAB A&P. -wheezes, -rales, -rhonchi. Symmetrical chest rise. No increase work of breathing. No respiratory distress. Cardiac: RRR, -mrg. Radial pulses intact and symmetrical. Abdominal: Nontender, nondistended, soft. BS present. Results & Data Results & Data ([facility]) Vital Signs (Past 12 Hours) Vital Signs Temp Pulse Resp BP Pulse Ox 05/24/21 12:51 101 H 113/72 05/24/21 08:34 103 H 111/72 97 05/24/21 06:18 36.5 C 91 H 18 108/68 100 PG Care Time/CCT Total # of Minutes Spent Total Time Spent with Patient: Total time spent is greater than 50% in coordination of care (as documented) at patient's floor/unit and/or counseling patient: Coding Level of Care Code 11339 Subseq Hosp Care Lvl 1 Diagnoses Orthostasis I95.1 Acute metabolic encephalopathy G93.41 UTI (urinary tract infection) N39.0 Urinary retention R33.9 Acute respiratory failure with hypoxia J96.01 Opiate withdrawal F11.23 Bacterial pneumonia J15.9 COVID U07.1 CKD (chronic kidney disease), stage III N18.32 Chronic kidney disease stage 3 subtype: stage 3b (GFR 30-44) Compression fracture Hypothyroidism E03.9 Adrenocortical insufficiency E27.40 Hyperlipidemia E78.5 Hypertension I10 DVT prophylaxis Z29.9 (1) CKD (chronic kidney disease), stage III Chronic kidney disease stage 3 subtype: stage 3b (GFR 30-44) Qualified Code(s): N18.32 - Chronic kidney disease, stage 3b
[2021-05-24] MEDS: QUEtiapine FUMARATE 100 MG TABLET PO SCH (19:52)
[2021-05-24] MEDS: FAMOTIDINE 40 MG TABLET PO SCH (19:52)
[2021-05-25] MEDS: HEPARIN SOD 5,000 UNIT/0.5 ML VIAL SQ SCH ×3 (05:52→20:42)
--- NOTE | 2021-05-25 07:11 | Hospitalist Progress Note ---
Date of Service May 25, 2021 Assessment & Plan (1) Orthostasis: Plan: -has known dx of POTS -has been worse in hospital due to dehydration/poor intake -COVID-19 can also worsen autonomic insufficiency -Continue midodrine 5mg TID - Alpha zeinab stopped during admission (2) Acute metabolic encephalopathy: Plan: -Ongoing, patient follows commands appropriately and is oriented to place and name today -Suspect delirium due to resolving/smoldering COVID-19 illness, +/- UTI, + hospital psychosis, etc. -Supportive care. -Seroquel HS. -If related to COVID-19 this could last for some time. -Treat the candidal UTI as below. (3) UTI (urinary tract infection): Plan: -Prior MDR Klebsiella UTI treated with Invanz from 05/01 - 05/07. -Was discharged home, came back to hospital 24 hours later. -Urine culture again this admission grew Klebsiella pneumoniae and marcie albicans. -Received once again 7+ days of IV ertapenem and zosyn. - Cont diflucan 7 days in total (complete 05/26/2021) -Best removed, pending voiding trial. May use pure wick and straight cath as needed (4) Urinary retention: Plan: -Best removed for voiding trial. Bladder scan if reduced output and straight cath as needed (5) Acute respiratory failure with hypoxia: Plan: -2/2 COVID-19 pneumonia. - improving - SpO2 goal 90% - May cont the [place] O2 for comfort purposes. (6) Opiate withdrawal: Plan: - resolved with resuming her oxycodone 10mg BID (7) Bacterial pneumonia: Plan: - Doubtful - Some suspicion of such at time of this admission but her pneumonia was likely all COVID related. 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 If she does not do well then she would consider hospice goals of care, but does not want to transition to these at this time. We will continue to follow, and anticipate discharge to SNF on 05/28. Admission and Anticipated Discharge Date Admission Date: May 13, 2021 Mark Swartz is seen at the bedside with her daughter present. She reports she feels "good "today and has no rashes or concerns. Denies fatigue today, reports she has not been up out of bed to a chair yet. Reviewed case, current labs with patient and daughter, still waiting for anticipated discharge on 05/28. Patient and daughter agreeable to removing Best today and trial of voiding, and use of pure wick if needed. Review of Systems Review of Systems: General: Denies fatigue, feels rested today no specific complaints Cardiovascular: Denies chest pain, palpitations, presyncope Pulmonary: Denies shortness of breath, difficulty breathing, cough GI: Denies abdominal pain today, denies nausea/vomiting Extremities: Denies MSK pain on assessment today Physical Exam Physical Exam: General: Oriented to name and place, appears chronically ill, thin. HEENT: Atraumatic, normocephalic. Vision and hearing grossly intact. Pulm: CTAB A&P. -wheezes, -rales, -rhonchi. Symmetrical chest rise. No increase work of breathing. No respiratory distress. Cardiac: RRR, -mrg. Radial pulses intact and symmetrical. Abdominal: Nontender, nondistended, soft. BS present. Results & Data Results & Data ([facility]) Vital Signs (Past 12 Hours) Vital Signs Temp Pulse Resp BP Pulse Ox 05/24/21 22:02 36.5 C 102 H 18 123/72 99 PG Care Time/CCT Total # of Minutes Spent Total Time Spent with Patient: Total time spent is greater than 50% in coordination of care (as documented) at patient's floor/unit and/or counseling patient: Coding Level of Care Code 76862 Subseq Hosp Care Lvl 2 Diagnoses Orthostasis I95.1 Acute metabolic encephalopathy G93.41 UTI (urinary tract infection) N39.0 Urinary retention R33.9 Acute respiratory failure with hypoxia J96.01 Opiate withdrawal F11.23 Bacterial pneumonia J15.9 COVID U07.1 CKD (chronic kidney disease), stage III N18.32 Chronic kidney disease stage 3 subtype: stage 3b (GFR 30-44) Compression fracture Hypothyroidism E03.9 Adrenocortical insufficiency E27.40 Hyperlipidemia E78.5 Hypertension I10 DVT prophylaxis Z29.9 (1) CKD (chronic kidney disease), stage III Chronic kidney disease stage 3 subtype: stage 3b (GFR 30-44) Qualified Code(s): N18.32 - Chronic kidney disease, stage 3b
[2021-05-25 07:27] LABS: Basophils # (auto) 0.02 K/uL (0-0.2); Basophils % (auto) 0.2 %; Eosinophils # (auto) 0.32 K/uL (0-0.5); Hematocrit (blood only) 34.5 % (37-47); Hemoglobin 10.4 g/dL (12.0-16.0); Immature Granulocytes % (auto) 1.9 %; Lymphocytes % (auto) 14.9 %; Mean Corpuscular Hgb Conc 30.1 g/dL (32-36); Mean Corpuscular Volume 89.6 fL (80-100); Mean Platelet Volume 9.1 fL (7.4-10.4); Monocytes # (auto) 1.17 K/uL (0.11-0.59); Monocytes % (auto) 10.9 %; Neutrophils % (auto) 69.1 %; Platelet Count 267 K/uL (130-400); RDW Coefficient of Variation 17.5 % (11.5-14.5); Red Blood Count 3.85 M/uL (4.2-5.4); White Blood Count 10.71 K/uL (4.8-10.8)
[2021-05-25 08:03] LABS: BUN Creatinine Ratio 21.1 (10-20); Calcium 10.2 mg/dl (8.5-10.1); Creatinine Clr Calc Pharmacy 36.5 ml/min; Est GFR (African American) 58.3 ml/min; Est GFR (Non-African American) 50.3 ml/min; Potassium 4.6 mmol/L (3.5-5.1)
[2021-05-25] MEDS ORDERED: SODIUM CHLORIDE 0.9% 1000ML 250 ML IV ONE (08:11)
[2021-05-25] MEDS: ACETAMINOPHEN 500 MG TAB PO SCH ×3 (09:18→20:41)
[2021-05-25] MEDS: HYDROXYCHLOROQUINE SULFATE 200 MG TAB PO SCH (09:18)
[2021-05-25] MEDS: MIDODRINE HCL 2.5 MG TAB PO SCH ×3 (09:18→16:59)
[2021-05-25] MEDS: oxyCODONE HCL IR 5 MG TAB (IMMEDIATE RELEASE) PO SCH ×2 (09:18→20:41)
[2021-05-25] MEDS: POTASSIUM CHLORIDE CRTAB 20 MEQ TABCR PO SCH (10:03)
[2021-05-25] MEDS: CALCITONIN SALMON NA 200 IU/AC 3.7 ML BTL SCH (10:03)
[2021-05-25] MEDS: CYANOCOBALAMIN 500 MCG TABLET (VITAMIN B-12) PO SCH (10:04)
[2021-05-25] MEDS: CEROVITE ADV FORMULA TAB PO SCH (10:04)
[2021-05-25] MEDS: FEXOFENADINE 60 MG TAB PO SCH (10:04)
[2021-05-25] MEDS: VITAMIN B COMPLEX TAB PO SCH (10:04)
[2021-05-25] MEDS: CHOLECALCIFEROL 1,000 UNITS 25 MCG TAB PO SCH (10:04)
[2021-05-25] MEDS: PANTOprazole 40 MG TAB PO SCH (10:04)
[2021-05-25] MEDS: CLOPIDOGREL BISULFATE 75 MG TAB PO SCH (10:04)
[2021-05-25] MEDS: DULoxetine HCL 30 MG CAP PO SCH (10:05)
[2021-05-25] MEDS: FLUCONAZOLE 100 MG TAB PO SCH (10:05)
[2021-05-25] MEDS: DULoxetine HCL 60 MG CAP PO SCH (10:05)
[2021-05-25] MEDS: predniSONE 10 MG TABLET PO SCH (10:05)
[2021-05-25] MEDS: MIRABEGRON ER 25 MG TAB PO SCH (10:05)
[2021-05-25] MEDS: ADVANCED PROBIOTIC 1250 MG CAPSULE PO SCH (10:05)
[2021-05-25] MEDS: GABAPENTIN 300 MG CAP PO SCH ×3 (10:06→20:41)
[2021-05-25] MEDS: ATORVASTATIN 40 MG TAB PO SCH (12:31)
[2021-05-25] MEDS: QUEtiapine FUMARATE 100 MG TABLET PO SCH (20:41)
[2021-05-25] MEDS: FAMOTIDINE 40 MG TABLET PO SCH (20:41)
[2021-05-26] MEDS: LEVOTHYROXINE SODIUM 88 MCG TABLET PO SCH (05:31)
[2021-05-26] MEDS: HEPARIN SOD 5,000 UNIT/0.5 ML VIAL SQ SCH ×3 (05:31→21:26)
[2021-05-26 06:19] LABS: Basophils # (auto) 0.03 K/uL (0-0.2); Basophils % (auto) 0.3 %; Eosinophils # (auto) 0.37 K/uL (0-0.5); Eosinophils % (auto) 3.7 %; Hematocrit (blood only) 32.7 % (37-47); Hemoglobin 9.8 g/dL (12.0-16.0); Immature Granulocytes # (auto) 0.26 K/uL (0.00-0.02); Immature Granulocytes % (auto) 2.6 %; Lymphocytes # (auto) 1.51 K/uL (1.2-3.4); Lymphocytes % (auto) 15.3 %; Mean Corpuscular Hemoglobin 26.8 pg (25-34); Mean Corpuscular Volume 89.3 fL (80-100); Mean Platelet Volume 9.5 fL (7.4-10.4); Monocytes # (auto) 1.17 K/uL (0.11-0.59); Monocytes % (auto) 11.8 %; Neutrophils # (auto) 6.55 K/uL (1.4-6.5); Neutrophils % (auto) 66.3 %; Nucleated RBC # (auto) 0.03 K/uL (0-0); Nucleated RBC % (auto) 0.3 %; Platelet Count 259 K/uL (130-400); RDW Coefficient of Variation 17.6 % (11.5-14.5); RDW Standard Deviation 55.9 fL (36.4-46.3); Red Blood Count 3.66 M/uL (4.2-5.4); White Blood Count 9.89 K/uL (4.8-10.8)
[2021-05-26 06:58] LABS: BUN Creatinine Ratio 22.3 (10-20); Calcium 9.7 mg/dl (8.5-10.1); Creatinine Clr Calc Pharmacy 36.5 ml/min; Est GFR (African American) 58.3 ml/min; Est GFR (Non-African American) 50.3 ml/min; Potassium 4.7 mmol/L (3.5-5.1)
[2021-05-26] MEDS: oxyCODONE HCL IR 5 MG TAB (IMMEDIATE RELEASE) PO SCH ×2 (08:57→21:26)
[2021-05-26] MEDS: CYANOCOBALAMIN 500 MCG TABLET (VITAMIN B-12) PO SCH (08:58)
[2021-05-26] MEDS: MIRABEGRON ER 25 MG TAB PO SCH (08:58)
[2021-05-26] MEDS: MIDODRINE HCL 2.5 MG TAB PO SCH ×3 (08:58→17:50)
[2021-05-26] MEDS: DULoxetine HCL 60 MG CAP PO SCH (08:59)
[2021-05-26] MEDS: ADVANCED PROBIOTIC 1250 MG CAPSULE PO SCH (08:59)
[2021-05-26] MEDS: CHOLECALCIFEROL 1,000 UNITS 25 MCG TAB PO SCH (08:59)
[2021-05-26] MEDS: VITAMIN B COMPLEX TAB PO SCH (08:59)
[2021-05-26] MEDS: CLOPIDOGREL BISULFATE 75 MG TAB PO SCH (08:59)
[2021-05-26] MEDS: HYDROXYCHLOROQUINE SULFATE 200 MG TAB PO SCH (08:59)
[2021-05-26] MEDS: FEXOFENADINE 60 MG TAB PO SCH (09:00)
[2021-05-26] MEDS: CEROVITE ADV FORMULA TAB PO SCH (09:00)
[2021-05-26] MEDS: DULoxetine HCL 30 MG CAP PO SCH (09:00)
[2021-05-26] MEDS: PANTOprazole 40 MG TAB PO SCH (09:00)
[2021-05-26] MEDS: GABAPENTIN 300 MG CAP PO SCH ×3 (09:00→21:26)
[2021-05-26] MEDS: FLUCONAZOLE 100 MG TAB PO SCH (09:00)
[2021-05-26] MEDS: predniSONE 10 MG TABLET PO SCH (09:01)
[2021-05-26] MEDS: CALCITONIN SALMON NA 200 IU/AC 3.7 ML BTL SCH (09:02)
[2021-05-26] MEDS: POTASSIUM CHLORIDE CRTAB 20 MEQ TABCR PO SCH (09:27)
[2021-05-26] MEDS: ACETAMINOPHEN 500 MG TAB PO SCH ×3 (09:28→21:28)
[2021-05-26] MEDS: ATORVASTATIN 40 MG TAB PO SCH (11:48)
--- NOTE | 2021-05-26 14:52 | Palliative Care Progress Note ---
Date of Service May 26, 2021 Assessment & Plan (1) Anorexia: Plan: Eating with no difficulty swallowing though appetite is decreased. She does eat with encouragement and help. I spoke with Bethany on the phone. She feels that Sheridan eats better when sitting up in the chair. (2) Palliative care encounter: Plan: Clarified code status with Bethany. Sheridan is DNR but they are very much int erested in her receiving any other care that she might need to improve. Goal is transfer to [facility] for rehab. She would be agreeable to return to hospital, antibiotics and even artificial feeding depending on the situation. She notes that Sheridan has an advance directive and has said that she would not want cancer treatment and would not want ferry terminal supervisor artificial feeding but Bethany feels that this would need to be decided on at the time. Admission and Anticipated Discharge Date Admission Date: May 13, 2021 Subjective Eating lunch. No difficulty swallowing. Smiling. Denies discomfort. Review of Systems Review of Systems: Unobtainable due to cognitive status [place] Symptom Assessment Scale Pain 0/3 Dyspnea 0/3 Drowsiness 0/3 Palliative Performance Score 40% Physical Exam Constitutional: comfortable; no acute distress ENMT: edentulous, loose fitting dentures Respiratory: normal respiratory effort; no labored breathing Cardiovascular: Rate/Rhythm: regular rate and regular rhythm Neurologic: awake and + confused Results & Data ([facility]) Vital Signs (Past 12 Hours) Vital Signs Temp Pulse Resp Pulse Ox 05/26/21 06:13 97.7 F 93 H 14 98 PG Care Time/CCT Total # of Minutes Spent Total Time Spent with Patient: Total time spent is greater than 50% in coordination of care (as documented) at patient's floor/unit and/or counseling patient: Coding Level of Care Code 39079 Subseq Hosp Care Lvl 2 Diagnoses Anorexia R63.0 Palliative care encounter Z51.5
[2021-05-26] MEDS: LIDOCAINE 5% 1 PATCH TD SCH (17:49)
[2021-05-26] MEDS: QUEtiapine FUMARATE 100 MG TABLET PO SCH (21:26)
[2021-05-26] MEDS: FAMOTIDINE 40 MG TABLET PO SCH (21:26)
[2021-05-27] MEDS: LEVOTHYROXINE SODIUM 88 MCG TABLET PO SCH (05:37)
[2021-05-27] MEDS: HEPARIN SOD 5,000 UNIT/0.5 ML VIAL SQ SCH ×3 (05:37→20:58)
[2021-05-27] MEDS: ACETAMINOPHEN 500 MG TAB PO SCH ×3 (08:54→20:57)
[2021-05-27] MEDS: MIDODRINE HCL 2.5 MG TAB PO SCH ×3 (08:54→17:08)
[2021-05-27] MEDS: predniSONE 10 MG TABLET PO SCH (08:55)
[2021-05-27] MEDS: GABAPENTIN 300 MG CAP PO SCH ×3 (08:55→20:58)
[2021-05-27] MEDS: DULoxetine HCL 30 MG CAP PO SCH (08:56)
[2021-05-27] MEDS: HYDROXYCHLOROQUINE SULFATE 200 MG TAB PO SCH (08:56)
[2021-05-27] MEDS: CHOLECALCIFEROL 1,000 UNITS 25 MCG TAB PO SCH (08:56)
[2021-05-27] MEDS: FLUCONAZOLE 100 MG TAB PO SCH (08:56)
[2021-05-27] MEDS: FEXOFENADINE 60 MG TAB PO SCH (08:56)
[2021-05-27] MEDS: CLOPIDOGREL BISULFATE 75 MG TAB PO SCH (08:57)
[2021-05-27] MEDS: CYANOCOBALAMIN 500 MCG TABLET (VITAMIN B-12) PO SCH (08:57)
[2021-05-27] MEDS: PANTOprazole 40 MG TAB PO SCH (08:57)
[2021-05-27] MEDS: VITAMIN B COMPLEX TAB PO SCH (08:58)
[2021-05-27] MEDS: CEROVITE ADV FORMULA TAB PO SCH (08:58)
[2021-05-27] MEDS: ADVANCED PROBIOTIC 1250 MG CAPSULE PO SCH (08:58)
[2021-05-27] MEDS: MIRABEGRON ER 25 MG TAB PO SCH (08:58)
[2021-05-27] MEDS: DULoxetine HCL 60 MG CAP PO SCH (08:58)
[2021-05-27] MEDS: CALCITONIN SALMON NA 200 IU/AC 3.7 ML BTL SCH (08:59)
[2021-05-27] MEDS: LIDOCAINE 5% 1 PATCH TD SCH (08:59)
[2021-05-27] MEDS: oxyCODONE HCL IR 5 MG TAB (IMMEDIATE RELEASE) PO SCH ×2 (09:00→20:58)
[2021-05-27] MEDS: POTASSIUM CHLORIDE CRTAB 20 MEQ TABCR PO SCH (09:10)
[2021-05-27] MEDS: ATORVASTATIN 40 MG TAB PO SCH (12:43)
--- NOTE | 2021-05-27 19:04 | Hospitalist Progress Note ---
Date of Service May 27, 2021 Assessment & Plan (1) Orthostasis: Plan: -has known dx of POTS -has been worse in hospital due to dehydration/poor intake -COVID-19 can also worsen autonomic insufficiency -Continue midodrine 5mg TID, wean as outpatient (2) Acute metabolic encephalopathy: Plan: -Ongoing, patient follows commands appropriately and is oriented to place and name today -Suspect delirium due to resolving/smoldering COVID-19 illness, +/- UTI, + hospital psychosis, etc. -Supportive care. -Seroquel HS. -If related to COVID-19 this could last for some time. -Candidial UTI treated with fluconazole during admission (3) UTI (urinary tract infection): Plan: -Prior MDR Klebsiella UTI treated with Invanz from 05/01 - 05/07. -Was discharged home, came back to hospital 24 hours later. -Urine culture again this admission grew Klebsiella pneumoniae and marcie albicans. -Received once again 7+ days of IV ertapenem and zosyn. -Cont diflucan 7 days in total (completed 05/26/2021) -Benitez removed, failed voiding trial and now replaced (4) Urinary retention: Plan: -suspect secondary to midodrine use however this has been needed for orthostasis -Failed trial without catheter, will need to follow up with urology as outpatient (5) Acute respiratory failure with hypoxia: Plan: -2/2 COVID-19 pneumonia. - improving - SpO2 goal 90% - May cont the [place] O2 for comfort purposes. (6) Opiate withdrawal: Plan: - resolved with resuming her oxycodone 10mg BID, recommend contininuing to wean as able as outpatient (7) Bacterial pneumonia: Plan: - Doubtful - Some suspicion of such at time of this admission but her pneumonia was likely all COVID related. 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 If she does not do well then she would consider hospice goals of care, but does not want to transition to these at this time. We will continue to follow, and anticipate discharge to SNF on 05/28. Admission and Anticipated Discharge Date Admission Date: May 13, 2021 Subjective Appears alert. Very fatigued this morning reported by nursing staff and therefore oxycodone was held. Patient reports no increase in pain today despite holding this. Previously I had held all her oxycodone without an increase in pain however due to concern for opiate withdrawal she was restarted on oxycodone. Midodrine was also restarted at TID due to orthostasis after I held this due to urinary retention. Benitez michael removed and patient is now retaining urine again with PVR > 500ml therefore benitez catheter replaced again today. Patient effectively awaiting placement at this time. Anticipate discharge tomorrow. Review of Systems Review of Systems: All systems reviewed & are unremarkable except as noted in HPI & below Physical Exam Constitutional: well developed and + obese; + not well nourished and no acute distress Eyes: + anicteric sclerae; normal pupil size ENMT: external ear and nose normal, oropharynx normal Respiratory: normal respiratory effort and able to speak in complete sentences Auscultation: + diminished lung sounds (bibasal) Cardiovascular: Rate/Rhythm: regular rate and regular rhythm Heart Sounds: no murmur Vessels: no JVD Extremities: normal capillary refill; no pedal edema Gastrointestinal (Abdomen): Inspection/Auscultation: abdomen normal to inspection (colostomy draining liquid stool) Percussion/Palpation: abdomen soft; abdomen nontender, no guarding and abdomen not rigid Musculoskeletal: Head/Neck/Chest: normocephalic and head atraumatic Skin: no rashes, warm and dry Neurologic: moves all extremities, awake and + confused (much improved from admission) Psychiatric: Orientation: alert, oriented to person and oriented to place; + not oriented to time Results & Data Results & Data ([facility]) Vital Signs (Past 12 Hours) Vital Signs Temp Pulse Resp BP BP Pulse Ox 05/27/21 15:12 36.5 C 97 H 16 113/66 93 05/27/21 07:55 36.5 C 98 H 16 112/68 98 PG Care Time/CCT Total # of Minutes Spent Total Time Spent with Patient: Total time spent is greater than 50% in coordination of care (as documented) at patient's floor/unit and/or counseling patient: Coding Level of Care Code 04596 Subseq Hosp Care Lvl 2 Diagnoses Orthostasis I95.1 Acute metabolic encephalopathy G93.41 UTI (urinary tract infection) N39.0 Urinary retention R33.9 Acute respiratory failure with hypoxia J96.01 Opiate withdrawal F11.23 Bacterial pneumonia J15.9 COVID U07.1 CKD (chronic kidney disease), stage III N18.32 Chronic kidney disease stage 3 subtype: stage 3b (GFR 30-44) Compression fracture Hypothyroidism E03.9 Adrenocortical insufficiency E27.40 Hyperlipidemia E78.5 Hypertension I10 DVT prophylaxis Z29.9 (1) CKD (chronic kidney disease), stage III Chronic kidney disease stage 3 subtype: stage 3b (GFR 30-44) Qualified Code(s): N18.32 - Chronic kidney disease, stage 3b
[2021-05-27] MEDS: FAMOTIDINE 40 MG TABLET PO SCH (20:58)
[2021-05-27] MEDS: QUEtiapine FUMARATE 100 MG TABLET PO SCH (20:58)
[2021-05-28] MEDS: HEPARIN SOD 5,000 UNIT/0.5 ML VIAL SQ SCH (05:36)
[2021-05-28] MEDS: LEVOTHYROXINE SODIUM 88 MCG TABLET PO SCH (05:36)
[2021-05-28] MEDS ORDERED: oxyCODONE HCL IR 5 MG TAB (IMMEDIATE RELEASE) PO SCH (09:00)
--- NOTE | 2021-05-28 09:02 | Hospitalist Progress Note ---
Date of Service May 26, 2021 Assessment & Plan (1) Orthostasis: Plan: -has known dx of POTS -has been worse in hospital due to dehydration/poor intake -COVID-19 can also worsen autonomic insufficiency -Continue midodrine 5mg TID, consider wean as outpatient (2) Acute metabolic encephalopathy: Plan: -Ongoing, patient follows commands appropriately and is oriented to place and name today -Suspect delirium due to resolving/smoldering COVID-19 illness, +/- UTI, + hospital psychosis, etc. -Supportive care. -Seroquel HS. -If related to COVID-19 this could last for some time. -Candidial UTI treated with fluconazole during admission (3) UTI (urinary tract infection): Plan: -Prior MDR Klebsiella UTI treated with Invanz from 05/01 - 05/07. -Was discharged home, came back to hospital 24 hours later. -Urine culture again this admission grew Klebsiella pneumoniae and marcie albicans. -Received once again 7+ days of IV ertapenem and zosyn. -Cont diflucan 7 days in total (completed 05/26/2021) (4) Urinary retention: Plan: -suspect secondary to midodrine use however this has been needed for orthostasis -Continue straight caths PRN (5) Acute respiratory failure with hypoxia: Plan: -2/2 COVID-19 pneumonia. - improving - SpO2 goal 90% - May cont the [place] O2 for comfort purposes. (6) Opiate withdrawal: Plan: - resolved with resuming her oxycodone 10mg BID, recommend continuing to wean as able as outpatient (7) Bacterial pneumonia: Plan: - Doubtful - Some suspicion of such at time of this admission but her pneumonia was likely all COVID related. 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 If she does not do well then she would consider hospice goals of care, but does not want to transition to these at this time. We will continue to follow, and anticipate discharge to SNF on 05/28. Admission and Anticipated Discharge Date Admission Date: May 13, 2021 Subjective Appears much more alert since I last was her provider a week ago. Oxycodone restarted due to opiate withdrawal and midodrine restarted due to orthostasis. Finished antibiotics and fluconazole. Needing straight caths due to benitez cath removed today. Shortness of breath at new baseline on 2 LPM O2. Updated her daughter at bedside. Review of Systems Review of Systems: All systems reviewed & are unremarkable except as noted in HPI & below Physical Exam Constitutional: well developed and + obese; + not well nourished and no acute distress Eyes: + anicteric sclerae; normal pupil size Respiratory: normal respiratory effort and able to speak in complete sentences Auscultation: + diminished lung sounds (bibasal) Cardiovascular: Rate/Rhythm: regular rate and regular rhythm Heart Sounds: no murmur Vessels: no JVD Extremities: normal capillary refill; no pedal edema Gastrointestinal (Abdomen): Inspection/Auscultation: abdomen normal to inspection (colostomy draining liquid stool) Percussion/Palpation: abdomen soft; abdomen nontender, no guarding and abdomen not rigid Musculoskeletal: Head/Neck/Chest: normocephalic and head atraumatic Skin: no rashes, warm and dry Neurologic: moves all extremities, awake and + confused (much improved from admission) Psychiatric: Orientation: alert, oriented to person and oriented to place; + not oriented to time Results & Data Results & Data ([facility]) Vital Signs (Past 12 Hours) Vital Signs Temp Pulse Resp BP Pulse Ox PG Care Time/CCT Total # of Minutes Spent Total Time Spent with Patient: Total time spent is greater than 50% in coordination of care (as documented) at patient's floor/unit and/or counseling patient: Coding Level of Care Code 76241 Subseq Hosp Care Lvl 2 Diagnoses Orthostasis I95.1 Acute metabolic encephalopathy G93.41 UTI (urinary tract infection) N39.0 Urinary retention R33.9 Acute respiratory failure with hypoxia J96.01 Opiate withdrawal F11.23 Bacterial pneumonia J15.9 COVID U07.1 CKD (chronic kidney disease), stage III N18.32 Chronic kidney disease stage 3 subtype: stage 3b (GFR 30-44) Compression fracture Hypothyroidism E03.9 Adrenocortical insufficiency E27.40 Hyperlipidemia E78.5 Hypertension I10 DVT prophylaxis Z29.9 (1) CKD (chronic kidney disease), stage III Chronic kidney disease stage 3 subtype: stage 3b (GFR 30-44) Qualified Code(s): N18.32 - Chronic kidney disease, stage 3b
[2021-05-28] MEDS: MIDODRINE HCL 2.5 MG TAB PO SCH (09:14)
[2021-05-28] MEDS: HYDROXYCHLOROQUINE SULFATE 200 MG TAB PO SCH (09:27)
[2021-05-28] MEDS: ACETAMINOPHEN 500 MG TAB PO SCH (09:27)
[2021-05-28] MEDS: CYANOCOBALAMIN 500 MCG TABLET (VITAMIN B-12) PO SCH (09:27)
[2021-05-28] MEDS: POTASSIUM CHLORIDE CRTAB 20 MEQ TABCR PO SCH (09:27)
[2021-05-28] MEDS: MIRABEGRON ER 25 MG TAB PO SCH (09:28)
[2021-05-28] MEDS: LIDOCAINE 5% 1 PATCH TD SCH (09:28)
[2021-05-28] MEDS: ADVANCED PROBIOTIC 1250 MG CAPSULE PO SCH (09:29)
[2021-05-28] MEDS: DULoxetine HCL 60 MG CAP PO SCH (09:29)
[2021-05-28] MEDS: PANTOprazole 40 MG TAB PO SCH (09:29)
[2021-05-28] MEDS: CALCITONIN SALMON NA 200 IU/AC 3.7 ML BTL SCH (09:29)
[2021-05-28] MEDS: CEROVITE ADV FORMULA TAB PO SCH (09:30)
[2021-05-28] MEDS: CLOPIDOGREL BISULFATE 75 MG TAB PO SCH (09:30)
[2021-05-28] MEDS: CHOLECALCIFEROL 1,000 UNITS 25 MCG TAB PO SCH (09:30)
[2021-05-28] MEDS: VITAMIN B COMPLEX TAB PO SCH (09:31)
[2021-05-28] MEDS: predniSONE 10 MG TABLET PO SCH (09:31)
[2021-05-28] MEDS: FEXOFENADINE 60 MG TAB PO SCH (09:31)
[2021-05-28] MEDS: GABAPENTIN 300 MG CAP PO SCH (09:31)
[2021-05-28] MEDS: FLUCONAZOLE 100 MG TAB PO SCH (09:31)
[2021-05-28] MEDS: DULoxetine HCL 30 MG CAP PO SCH (09:32)
--- NOTE | 2021-06-02 13:51 | Discharge Summary ---
Date of Service May 28, 2021 Admission HPI Per Admitting Provider This is an 89-year-old female with past medical history rheumatoid arthritis, coronary artery disease, adrenal insufficiency, and recent Covid diagnosis that presents today with failure to thrive. Patient is a poor historian was alone in the room when I went to evaluate her. Per records, the patient was hospitalized here from . She was discharged yesterday. Discharge documentation shows diagnoses of acute metabolic encephalopathy secondary to Covid as well as an L3 compression fracture. Patient also had an ESBL Klebsiella UTI and has been treated with 7 days ertapenem. Per the ER documentation, the patient was brought home by family. She seemed fatigued and tired but today the patient was found to be more confused and very sleepy. She has apparently had no urinary output at all and the family was concerned about recurrent dehydration and UTI. On evaluation in the emergency room, she was found to be afebrile with normal vital signs. Patient was arousable, was able to converse a little but did not make much sense and was unable to really provide any other history. She not appear to be in any cardiopulmonary distress but fell asleep quickly during our conversation. Principal Diagnosis Failure to thrive Acute ESBL UTI Acute marcie UTI COVID-19 pneumonia Discharge Exam Constitutional well developed; + not well nourished and no acute distress Eyes + anicteric sclerae; normal pupil size Respiratory normal respiratory effort; no respiratory distress Auscultation: + diminished lung sounds (bibasal) Cardiovascular RRR, no murmur, no edema Extremities: normal capillary refill; no pedal edema Gastrointestinal (Abdomen) Inspection/Auscultation: abdomen not distended Percussion/Palpation: abdomen soft; abdomen nontender and no guarding Skin no rashes, warm and dry Neurologic moves all extremities and awake Psychiatric Orientation: alert, oriented to person and cooperative Genitourinary + CVA tenderness (bilateral) Discharge Data Allergies Allergy/AdvReac Type Severity Reaction Status Date / Time nitrofurantoin Allergy Severe HIVES Verified 05/13/21 14:23 scallops Allergy Severe THROAT Verified 05/13/21 14:23 SWELLS ciprofloxacin Allergy Intermediate HIVES Verified 05/13/21 14:23 latex Allergy Intermediate RASH Verified 05/13/21 14:23 Quinolones Allergy Intermediate HIVES Verified 05/13/21 14:23 fluticasone Allergy Unknown ADVAIR-UNKN Verified 05/13/21 14:23 OWN salmeterol Allergy Unknown ADVAIR Verified 05/13/21 14:23 celecoxib AdvReac Intermediate barretts Verified 05/13/21 14:23 esophagus lactose AdvReac Intermediate GI UPSET Verified 05/13/21 14:23 morphine AdvReac Intermediate NAUSEA AND Verified 05/13/21 14:23 VOMITING Consultations 05/13/21 17:14 ED Decision to Admit Stat 05/21/21 22:12 Consult Palliative Care Routine Ordered Studies 05/13/21 15:07 CT abd pelvis wo con Stat IMPRESSION: 1. There are no acute infectious or inflammatory findings in the abdomen or pelvis. 2. A subacute appearing superior endplate compression fracture of L3 is unchanged from 05/01/2021. 3. Bibasilar airspace opacities are new from 05/01/2021. Correlate clinically for evidence of an infectious/inflammatory pneumonitis. 4. Left lower quadrant colostomy. No bowel obstruction is seen. 5. Bilateral nephrolithiasis. 6. Additional findings as above. CT head/brain wo con Stat IMPRESSION: No acute intracranial findings. No change in appearance of the brain. 05/14/21 17:25 US venous doppler LE RT Urgent IMPRESSION: No sonographic evidence of deep venous thrombosis. 05/15/21 13:00 FL video swallow Routine IMPRESSION: No penetration or aspiration was seen with any of the sampled textures. See dedicated speech pathology report for detailed findings and recommendations. 05/19/21 15:19 CT angio chest PE protocol Routine IMPRESSION: 1. No evidence for pulmonary embolus. 2. Scattered peripheral multifocal airspace opacities consistent with a viral pneumonia. Hospital Course (1) Orthostasis: (2) Acute metabolic encephalopathy: (3) UTI (urinary tract infection): (4) Urinary retention: (5) Acute respiratory failure with hypoxia: (6) Opiate withdrawal: (7) Bacterial pneumonia: (8) COVID: (9) CKD (chronic kidney disease), stage III: (10) Compression fracture: (11) Hypothyroidism: (12) Adrenocortical insufficiency: (13) Hyperlipidemia: (14) Hypertension: (15) DVT prophylaxis: Sheridan Neal is an 89 year old female admitted to [facility] from May 13 to 2020 due to altered mental state and failure to thrive. She was previously admitted from May 01 to May 12 due to COVID-19 pneumonia, confusion, UTI and L3 compression fracture but was re- admitted the following day as she was unable to cope at home. On this occasion due to persistently positive ESBL Klebsiella this was treated again with Ertapenem due to urinary retention likely making her unable to clear this infection. Urinary retention likely due to midodrine use however attempts at weaning this lead to orthostasis and it has been restarted. Benitez catheter inserted due to urinary retention and she failed voiding trail on May 26- , therefore recommend she follows up with urology in clinic in approximately 2 weeks She also grew marcie in her urine and given persistent suprapubic pain despite benitez catheter insertion this was also treated with fluconazole. Some concern her chronic opiates have also been contributing towards her confusion but stopping these lead to some opiate withdrawal symptoms therefore they have been weaned and can consider continued weaning of this as an outpatient (especially her morning dose). Suspect lingering hypoxia and confusion related to her COVID-19 pneumonia. Continue to aim O2 sats > 90%. Her stay has been prolonged due to her prior COVID-19 diagnosis and she is now medically stable for discharge to [facility] for ongoing physical rehabilitation. Total Time Total Time Spent Total Time Spent (In Minutes): 35 Discharge Plan Discharge Items Patient Disposition: Transfer Inpatient Rehab Fac Reason For Visit: WEAKNESS Discharge Diagnosis: Failure to thrive Acute ESBL UTI Acute marcie UTI COVID-19 pneumonia Condition on Discharge: Fair Activity: Resume your previous activity Non-emergency contact: Primary Care Provider Call non-emergency contact if: you have any medication questions and your symptoms worsen Follow-up/Referrals: Calixto Garg MD [Physician] - (trial without catheter 2 weeks) Nidhi Gardner MD [Primary Care Provider] - Diet: Regular Diet Texture: Easy to Chew Addtl Attending Provider Instructions: Sheridan Neal is an 89 year old female admitted to [facility] from May 13 to 2020 due to altered mental state and failure to thrive. She was previously admitted from May 01 to May 12 due to COVID-19 pneumonia, confusion, UTI and L3 compression fracture but was re-admitted the following day as she was unable to cope at home. On this occasion due to persistently positive ESBL Klebsiella this was treated again with Ertapenem due to urinary retention likely making her unable to clear this infection. Urinary retention likely due to midodrine use however attempts at weaning this lead to orthostasis and it has been restarted. Benitez catheter inserted due to urinary retention and she failed voiding trail on May 26-, therefore recommend she follows up with urology in clinic in approximately 2 weeks She also grew marcie in her urine and given persistent suprapubic pain despite benitez catheter insertion this was also treated with fluconazole. Some concern her chronic opiates have also been contributing towards her confusion but stopping these lead to some opiate withdrawal symptoms therefore they have been weaned and can consider continued weaning of this as an outpatient (especially her morning dose). Suspect lingering hypoxia and confusion related to her COVID-19 pneumonia. Continue to aim O2 sats > 90%. Her stay has been prolonged due to her prior COVID-19 diagnosis and she is now medically stable for discharge to [facility] for ongoing physical rehabilitation. Pending Studies at Discharge: No Stand-Alone Forms: [facility] 360T, Smoking Cessation Skilled Items Patient informed of condition?: Yes DNR: Yes Discharge Level of Care: Acute rehab Communicable Disease: Yes Discharge Prognosis: Stable Lines: None Urinary Catheter: Yes Medications and DC Order Prescriptions: New atorvastatin 40 mg Tablet 40 mg PO QDL Qty: 30 RF: 0 fexofenadine 60 mg Tablet 60 mg PO QAM Qty: 30 RF: 0 clopidogrel 75 mg Tablet 75 mg PO QAM Qty: 30 RF: 0 midodrine 2.5 mg Tablet 5 mg PO BID Qty: 120 RF: 0 hydroxychloroquine 200 mg Tablet 200 mg PO DAILY@0800 Qty: 30 RF: 0 acetaminophen 500 mg tablet 1,000 mg PO TID Qty: 90 RF: 0 oxycodone 5 mg tablet 5 mg PO BID Qty: 60 RF: 0 nitroglycerin 0.4 mg tablet, sublingual 0.4 mg sublingual Q5M PRN (Reason: chest pain) Qty: 7 RF: 0 diclofenac sodium [Voltaren Arthritis Pain] 1 % gel 4 g topical QID PRN (Reason: Arthritis pain) Qty: 100 RF: 0 duloxetine 30 mg Capsule,Delayed Release(Dr/Ec) 30 mg PO QAM Qty: 30 RF: 0 duloxetine 60 mg Capsule,Delayed Release(Dr/Ec) 60 mg PO QAM Qty: 30 RF: 0 gabapentin 300 mg Capsule 300 mg PO TID Qty: 90 RF: 0 quetiapine 100 mg Tablet 100 mg PO HS Qty: 30 RF: 0 fluticasone propionate 50 mcg/actuation [place],Suspension 2 spray intranasal QAM PRN (Reason: allergy symptoms) Qty: 16 RF: 0 Dexilant 60 mg capsule,biphase delayed releas 60 mg PO DAILY Qty: 30 RF: 0 polyethylene glycol 3350 [Miralax] 17 gram Powder In Packet 17 g PO QAM PRN (Reason: constipation) Qty: 14 RF: 0 famotidine 40 mg Tablet 40 mg PO HS Qty: 30 RF: 0 cholecalciferol (vitamin D3) 25 mcg (1,000 unit) Capsule 2,000 unit PO QAM Qty: 30 RF: 0 Myrbetriq 25 mg Tablet Extended Release 24 Hr 50 mg PO DAILY Qty: 30 RF: 0 lidocaine 5 % Adhesive Patch,Medicated 1 patch transdermal QAM Qty: 1 RF: 0 prednisone 10 mg Tablet 10 mg PO QAM Qty: 30 RF: 0 levothyroxine [Synthroid] 88 mcg Tablet 88 mcg PO DAILYBB Qty: 30 RF: 0 calcitonin (salmon) 200 unit/actuation [place],Non-Aerosol 1 spray NA QAM Qty: 3.7 RF: 0 cyanocobalamin (vitamin B-12) 500 mcg Tablet 1,000 mcg PO QAM Qty: 60 RF: 0 ondansetron 8 mg tablet,disintegrating 8 mg PO Q8H PRN (Reason: nausea and vomiting) Qty: 30 RF: 0 Continued Ocuvite with Lutein 1,000 unit-200 mg-60 unit-2 mg Tablet 1 tab PO QAM RF: 0 vitamin B complex Tablet 1 tab PO QAM RF: 0 Discontinued nitroglycerin 0.4 mg tablet, sublingual 0.4 mg SL Q5M PRN (Reason: chest pain) Qty: 1 RF: 0 cholecalciferol (vitamin D3) 2,000 unit capsule 2,000 units PO QAM RF: 0 lidocaine 5 % adhesive patch,medicated 1 patch TOP DAILY PRN (Reason: Lumbar pain) Qty: 30 RF: 5 ondansetron 8 mg tablet,disintegrating 8 mg PO Q6H PRN (Reason: Nausea) Qty: 20 RF: 0 Myrbetriq 50 mg tablet extended release 24 hr 50 mg PO DAILY Qty: 90 RF: 1 prednisone 10 mg tablet 10 mg PO QAM Qty: 90 RF: 1 clopidogrel [Plavix] 75 mg tablet 75 mg PO QAM Qty: 90 RF: 3 atorvastatin 40 mg tablet 40 mg PO QDL Qty: 90 RF: 1 duloxetine 30 mg capsule,delayed release(DR/EC) 30 mg PO QAM Qty: 90 RF: 1 duloxetine [Cymbalta] 60 mg capsule,delayed release(DR/EC) 60 mg PO QAM Qty: 90 RF: 1 famotidine 40 mg tablet 40 mg PO HS Qty: 90 RF: 1 fluticasone propionate [Flonase Allergy Relief] 50 mcg/actuation spray,suspension 2 spray INTRANASAL QAM PRN (Reason: Congestion) Qty: 15.8 RF: 3 hydroxychloroquine 200 mg tablet 200 mg PO QAM Qty: 90 RF: 1 prazosin 1 mg capsule 1 mg PO HS Qty: 90 RF: 1 quetiapine 200 mg tablet 200 mg PO HS Qty: 90 RF: 1 levothyroxine [Synthroid] 88 mcg tablet 88 mcg PO QAM Qty: 90 RF: 1 Dexilant 60 mg capsule,biphase delayed releas 60 mg PO QAM Qty: 90 RF: 1 cyanocobalamin (vitamin B-12) [Vitamin B-12] 1,000 mcg Tablet 1,000 mcg PO QAM RF: 0 gabapentin 300 mg capsule 300 mg PO TID RF: 0 polyethylene glycol 3350 [Miralax] 17 gram powder in packet 17 gm PO QAM Qty: 1 RF: 0 acetaminophen [Tylenol Extra Strength] 500 mg Tablet 1,000 mg PO Q6H PRN (Reason: Pain) RF: 0 midodrine 5 mg tablet 5 mg PO QAM RF: 0 calcitonin (salmon) 200 unit/actuation spray,non-aerosol 1 spray intranasal QAM RF: 0 oxycodone 10 mg tablet 10 mg PO TID RF: 0 phenazopyridine [Azo] 95 mg Tablet 95 mg PO TID PRN (Reason: Unknown) RF: 0 diclofenac sodium [Voltaren Arthritis Pain] 1 % gel 4 g EXT QID MDD 16g PRN (Reason: Pain) RF: 0 fexofenadine 60 mg Tablet 60 mg PO QAM RF: 0 Discharge Orders: Discharge Order (Routine); Ordered 05/28/21 Ordered By: Sebas Cain Admission Data Admit Date/Time: 05/13/21 18:50 Attending Provider: Sebas Cain Admit Provider: Chun Monterroso Primary Care Provider: Nidhi Gardner Other Providers: Gaby [place] ; Chun Monterroso ; Teodora Harden ; Sebas Winkler Other Interventions: Discharge Summary Assessment (RN) Last Done: 05/28/21 10:14 Coding Level of Care Code D/C DAY MANAGEMENT >30 MINS Diagnoses Orthostasis I95.1 Acute metabolic encephalopathy G93.41 UTI (urinary tract infection) N39.0 Urinary retention R33.9 Acute respiratory failure with hypoxia J96.01 Opiate withdrawal F11.23 Bacterial pneumonia J15.9 COVID U07.1 CKD (chronic kidney disease), stage III N18.32 Chronic kidney disease stage 3 subtype: stage 3b (GFR 30-44) Compression fracture Hypothyroidism E03.9 Adrenocortical insufficiency E27.40 Hyperlipidemia E78.5 Hypertension I10 DVT prophylaxis Z29.9
== END 2021-05-28 11:03 | DRG 177 ==
LOC: ED 13:26 → SUATTDRO 18:50 → 2S 18:50 → 2N 05-16 15:54 → 3E 05-21 08:53
DX: R00.0 Tachycardia, unspecified; M32.9 Systemic lupus erythematosus, unspecified; I49.8 Other specified cardiac arrhythmias; Z68.27 Body mass index [BMI] 27.0-27.9, adult; Z82.49 Family history of ischemic heart disease and other diseases of the circulatory system; Z88.6 Allergy status to analgesic agent; Z99.81 Dependence on supplemental oxygen; N18.32 Chronic kidney disease, stage 3b; K22.70 Barrett's esophagus without dysplasia; Z87.01 Personal history of pneumonia (recurrent); R62.7 Adult failure to thrive; J12.82 Pneumonia due to coronavirus disease 2019; G93.41 Metabolic encephalopathy; J45.909 Unspecified asthma, uncomplicated; Z91.018 Allergy to other foods; N39.0 Urinary tract infection, site not specified; M80.08XA Age-related osteoporosis with current pathological fracture, vertebra(e), initial encounter for fracture; N17.9 Acute kidney failure, unspecified; Z79.899 Other long term (current) drug therapy; Z91.011 Allergy to milk products; R73.03 Prediabetes; B96.1 Klebsiella pneumoniae [K. pneumoniae] as the cause of diseases classified elsewhere; G89.29 Other chronic pain; E78.5 Hyperlipidemia, unspecified; R33.9 Retention of urine, unspecified; I50.32 Chronic diastolic (congestive) heart failure; Z79.891 Long term (current) use of opiate analgesic; G62.9 Polyneuropathy, unspecified; G47.00 Insomnia, unspecified; Z91.040 Latex allergy status; T40.2X5A Adverse effect of other opioids, initial encounter; Z88.5 Allergy status to narcotic agent; Z79.02 Long term (current) use of antithrombotics/antiplatelets; Z51.81 Encounter for therapeutic drug level monitoring; W19.XXXA Unspecified fall, initial encounter; F05 Delirium due to known physiological condition; E78.00 Pure hypercholesterolemia, unspecified; I25.10 Atherosclerotic heart disease of native coronary artery without angina pectoris; I73.9 Peripheral vascular disease, unspecified; F11.23 Opioid dependence with withdrawal; Z91.013 Allergy to seafood; Z87.440 Personal history of urinary (tract) infections; Z93.3 Colostomy status; Z88.1 Allergy status to other antibiotic agents; M06.9 Rheumatoid arthritis, unspecified; B95.4 Other streptococcus as the cause of diseases classified elsewhere; I13.0 Hypertensive heart and chronic kidney disease with heart failure and stage 1 through stage 4 chronic kidney disease, or unspecified chronic kidney disease; U07.1 COVID-19; Z79.52 Long term (current) use of systemic steroids; E27.40 Unspecified adrenocortical insufficiency; J96.21 Acute and chronic respiratory failure with hypoxia; R63.0 Anorexia; B96.20 Unspecified Escherichia coli [E. coli] as the cause of diseases classified elsewhere; Z86.73 Personal history of transient ischemic attack (TIA), and cerebral infarction without residual deficits; K21.9 Gastro-esophageal reflux disease without esophagitis; Y92.230 Patient room in hospital as the place of occurrence of the external cause; E86.0 Dehydration; Z88.8 Allergy status to other drugs, medicaments and biological substances; M48.56XD Collapsed vertebra, not elsewhere classified, lumbar region, subsequent encounter for fracture with routine healing; Z66 Do not resuscitate; B37.49 Other urogenital candidiasis; F32.9 Major depressive disorder, single episode, unspecified; I95.1 Orthostatic hypotension; M25.512 Pain in left shoulder; E03.9 Hypothyroidism, unspecified; M25.511 Pain in right shoulder; T44.4X5A Adverse effect of predominantly alpha-adrenoreceptor agonists, initial encounter; Z79.890 Hormone replacement therapy

== ENCOUNTER 2022-07-25 13:23 | Inpatient (IN) ==
[2022-07-25] MEDS ORDERED: SODIUM CHLORIDE 0.9% 500 ML IV SCH (13:30)
--- NOTE | 2022-07-25 13:42 | Emergency Department Note ---
History of Present Illness General Chief complaint: Urinary Symptoms Stated complaint: UTI, AMS Time Seen by Provider: 07/25/22 13:25 History of Present Illness 89-year-old female presents to the ED with a chief complaint of some generalized weakness and concerns about a little confusion. The patient was sent from a local [facility]. She denies any specific complaints although on exam, she has some tenderness in the right lower quadrant. She denies any chest pains or shortness of breath. She does really report and confirmed some generalized weakness. No other specific complaints. Nothing seems to make it better or worse. Later on when the patient's mncchucv-ik-gnj was here, the patient did report telling her bsyptksa-tu-mas that she had some burning after urination. She told her nyazzhgy-ca-uez this yesterday. Home Medications Medication Instructions Recorded Confirmed Type vit A 300 mcg-C 200 mg-E 27 1 tab PO HS 08/31/18 04/29/22 History mg-lutein 2 mg and minerals tablet (Ocuvite with Lutein) vitamin B complex 1 tab PO QAM 09/26/18 04/29/22 History atorvastatin 40 mg tablet 40 mg PO QDL #30 tabs 05/28/21 04/29/22 Rx cholecalciferol (vitamin D3) 25 2,000 unit PO QAM #30 caps 05/28/21 04/29/22 Rx mcg (1,000 unit) capsule cyanocobalamin (vitamin B-12) 500 1,000 mcg PO QAM #60 tabs 05/28/21 04/29/22 Rx mcg tablet diclofenac sodium 1 % topical gel 4 g topical QID PRN Arthritis pain 05/28/21 04/29/22 Rx (Voltaren Arthritis Pain) #100 grams duloxetine 30 mg capsule,delayed 30 mg PO QAM #30 caps 05/28/21 04/29/22 Rx release duloxetine 60 mg capsule,delayed 60 mg PO QAM #30 caps 05/28/21 04/29/22 Rx release famotidine 40 mg tablet 40 mg PO HS #30 tabs 05/28/21 04/29/22 Rx fexofenadine 60 mg tablet 60 mg PO QAM #30 tabs 05/28/21 04/29/22 Rx fluticasone propionate 50 2 spray intranasal QAM PRN allergy 05/28/21 04/29/22 Rx mcg/actuation nasal symptoms #16 grams spray,suspension hydroxychloroquine 200 mg tablet 200 mg PO DAILY@0800 #30 tabs 05/28/21 04/29/22 Rx levothyroxine 88 mcg tablet 88 mcg PO DAILYBB #30 tabs 05/28/21 04/29/22 Rx (Synthroid) nitroglycerin 0.4 mg sublingual 0.4 mg sublingual Q5M PRN chest 05/28/21 04/29/22 Rx tablet pain #7 tabs polyethylene glycol 3350 17 gram 17 g PO QAM PRN constipation #14 ea 05/28/21 04/29/22 Rx oral powder packet (Miralax) prednisone 10 mg tablet 10 mg PO QAM #30 tabs 05/28/21 04/29/22 Rx oxycodone 5 mg tablet 5 mg PO TID 07/10/21 04/29/22 History ascorbic acid (vitamin C) 500 mg 500 mg PO QAM 08/12/21 04/29/22 History tablet (Vitamin C) aspirin 81 mg tablet,delayed 81 mg PO QAM 08/12/21 04/29/22 History release (Alix Low Dose Aspirin) conjugated estrogens 0.625 mg/gram 0.625 mg vaginal 2XWK 08/12/21 04/29/22 History vaginal cream (Premarin) dexlansoprazole 60 mg 60 mg PO QAM 08/12/21 04/29/22 History capsule,biphase delayed release (Dexilant) docusate sodium 100 mg tablet 100 mg PO DAILY PRN Constipation 08/12/21 04/29/22 History lidocaine 5 % topical patch 1 patch transdermal DAILY PRN Pain 08/12/21 04/29/22 History methenamine hippurate 1 gram 1 g PO BID 08/12/21 04/29/22 History tablet (Hiprex) midodrine 5 mg tablet 5 mg PO BID 08/12/21 04/29/22 History ondansetron 8 mg disintegrating 8 mg PO Q6 PRN nausea and vomiting 08/12/21 04/29/22 History tablet quetiapine 100 mg tablet 50 mg PO HS 08/12/21 04/29/22 History mirabegron 50 mg tablet,extended 50 mg PO QAM 09/26/21 04/29/22 History release 24 hr gabapentin 400 mg capsule 400 mg PO TID 12/31/21 04/29/22 History acetaminophen 500 mg tablet 1,000 mg PO TID PRN Pain 02/04/22 04/29/22 History sulfamethoxazole 800 1 tab PO BID PRN Urinary Retention 02/04/22 04/29/22 History mg-trimethoprim 160 mg tablet methyl salicylate 15 %-menthol 10 1 applic topical QID PRN Pain 04/21/22 04/29/22 History % topical cream Allergies Allergy/AdvReac Type Severity Reaction Status Date / Time nitrofurantoin Allergy Severe HIVES Verified 04/29/22 12:33 scallops Allergy Severe THROAT Verified 04/29/22 12:33 SWELLS ciprofloxacin Allergy Intermediate HIVES Verified 04/29/22 12:33 latex Allergy Intermediate RASH Verified 04/29/22 12:33 Quinolones Allergy Intermediate HIVES Verified 04/29/22 12:33 fluticasone Allergy Unknown ADVAIR-UNKN Verified 04/29/22 12:33 OWN salmeterol Allergy Unknown ADVAIR Verified 04/29/22 12:33 celecoxib AdvReac Intermediate barretts Verified 04/29/22 12:33 esophagus lactose AdvReac Intermediate GI UPSET Verified 04/29/22 12:33 morphine AdvReac Intermediate NAUSEA AND Verified 04/29/22 12:33 VOMITING Past Med/Surg History Medical History (Updated 07/25/22 @ 15:40 by Enmanuel Montes De Oca DO) Adrenocortical insufficiency Allergic rhinitis Arteriosclerosis of coronary artery Asthma Balance problem Barretts esophagus Chronic back pain Chronic cystitis CKD (chronic kidney disease), stage III does not follow with nephrology Clostridium difficile carrier Colovaginal fistula ? 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 Long-term use of hydroxychloroquine Lumbar canal stenosis Major depressive disorder, recurrent 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 BL H/A - does not wear Orthostatic hypotension Peripheral arterial disease Peripheral edema Peripheral neuropathy Polyarthritis Poor balance Pre-diabetes Presence of colostomy Rheumatoid arthritis Solitary pulmonary nodule Steroid-induced osteopenia TIA (transient ischemic attack) 2016 Urinary incontinence Urinary retention Surgical History H/O: hysterectomy HOLGER, 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 History of cardiac catheterization 2010 -- no stents/angioplasty -- [facility] - CP - dtr believes she follows w/ [facility] History of colon surgery sigmoid colon resection History of colonoscopy History of esophagogastroduodenoscopy (EGD) History of hip replacement bilateral 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 History of tooth extraction History of vascular surgery lower extremity unknown which leg- stents Hx of cholecystectomy Family History Grandmother (Maternal) Breast cancer Uterine cancer Father Cardiomyopathy Mother Alzheimer disease Son Colorectal cancer Daughter Breast cancer Other Cancer Diabetes Gallbladder disease Heart disease Hypertension No family history of adverse response to anesthesia Seizure Denies family history of Malignant hypothermia due to anesthesia Ovarian cancer Prostate cancer Crohn's disease Myocardial infarction Bleeding disorder Ulcerative colitis Social History Smoking Status: Unknown if ever smoked Second Hand Exposure: Yes (IN THE PAST); Hx Alcohol Use: No Hx Substance Use: No Preferred Language: Macedonian Communication Ability: Effective Visual Impairment: No Limitations Hearing Ability: Hard of Hearing Business Agent Required: No Beliefs That Will Affect Care: None marital status: / Current Living Situation: [facility] Current Living Situation Comment: [facility] current occupational status: retired How many Children do You have: 5 Feels Safe at Home: Yes Childhood Exposure to Second-Hand Smoke: Yes caffeine: Yes during the past year weight has: remained stable Dental Care, Regularly: Yes Physical Activity Frequency: Does not Exercise Seatbelt Use: always Sunscreen Use: Yes Do you think of yourself as: straight/heterosexual Assistive Devices: Denture - Upper, Denture - Lower, Glasses, Hearing Aid - Jerome ateral and Wheelchair Review of Systems A total of 10 systems reviewed and were otherwise negative Physical Exam Vital Signs Vital Signs - 24 hr 07/25/22 13:30 07/25/22 13:43 07/25/22 13:36 Temperature 37.3 C Temperature Source Oral Pulse Rate 114 H 110 H Pulse Rate from SpO2 Sensor Pulse Rhythm Regular Regular Pulse Strength Normal Respiratory Rate 18 18 Respiratory Effort / Characteristics Non-Labored Spontaneous Respiratory Depth Normal Respiratory Pattern Regular Blood Pressure 123/77 152/69 H Blood Pressure Mean 92 96 Blood Pressure Position Lying Pulse Oximetry 96 87 L Oxygen Delivery Method Room Air Room Air Sepsis Recent Fever Within 48 Hours No Sepsis New/Unexplained Change in Mental Status No Sepsis Action Taken by Nursing No Action Required 07/25/22 13:37 07/25/22 14:00 07/25/22 14:00 Temperature Temperature Source Pulse Rate 113 H 106 H Pulse Rate from SpO2 Sensor 112 H 106 H Pulse Rhythm Pulse Strength Respiratory Rate 19 11 L Respiratory Effort / Characteristics Respiratory Depth Respiratory Pattern Blood Pressure 141/59 H Blood Pressure Mean 86 Blood Pressure Position Pulse Oximetry 98 Oxygen Delivery Method Sepsis Recent Fever Within 48 Hours Sepsis New/Unexplained Change in Mental Status Sepsis Action Taken by Nursing 07/25/22 14:30 07/25/22 14:30 Temperature Temperature Source Pulse Rate 104 H Pulse Rate from SpO2 Sensor 104 H Pulse Rhythm Pulse Strength Respiratory Rate 17 Respiratory Effort / Characteristics Respiratory Depth Respiratory Pattern Blood Pressure 147/57 H Blood Pressure Mean 87 Blood Pressure Position Pulse Oximetry 93 Oxygen Delivery Method Sepsis Recent Fever Within 48 Hours Sepsis New/Unexplained Change in Mental Status Sepsis Action Taken by Nursing CONSTITUTIONAL/VITAL SIGNS: Reviewed / noted above. GENERAL: Non-toxic in appearance. INTEGUMENTARY: Warm, dry, and [place]. HEAD: Normocephalic. EYES: without scleral icterus or trauma. ENT/OROPHARYNX: clear and moist. LYMPHADENOPATHY/NECK: Is supple without lymphadenopathy or meningismus. RESPIRATORY: Clear to auscultation bilaterally. No increased work of breathing. CARDIOVASCULAR: Regular rate and rhythm. GI/ABDOMEN: Soft and tender in the right lower quadrant. No organomegaly or pulsatile mass. EXTREMITIES: Warm and well perfused. BACK: No CVA tenderness. NEUROLOGICAL: Intact without focal deficits. PSYCHIATRIC: normal affect. MUSCULOSKELETAL: Normally developed with good muscle tone. TRIAGE NURSING DOCUMENTATION REVIEWED. Course Administered Medications Discontinued Medications Sodium Chloride (Nss) 500 mls @ 999 mls/hr IV .Q31M MEE Stop: 07/25/22 14:00 Last Admin: 07/25/22 13:42 Dose: 999 mls/hr Documented By: [facility] Medical Decision Making Differential Diagnosis Differential includes acute coronary syndrome, myocardial infarction, CVA, TIA, anemia, infection, pneumonia, UTI, pyelonephritis, poor nutrition, dehydration, electrolyte disturbance,hypoglycemia. Medical Records Attestation: I reviewed the patient's medical records. Home Medications Current Medication List: was personally reviewed by me Laboratory Data Attestation: I reviewed the patient's lab results. Result diagrams: 07/25/22 13:32 07/25/22 13:32 Lab Results 07/25/22 07/25/22 07/25/22 Range/Units 13:32 13:32 14:22 WBC 14.14 H (4.8-10.8) K/ul RBC 3.96 (3.93-5.22) M/uL Hgb 12.7 (12.0-16.0) g/dl Hct 39.5 (34.1-44.9) % MCV 99.7 (80.0-100.0) fL MCH 32.1 (25.0-34.0) pg MCHC 32.2 (32.0-36.0) g/dL RDW Std Deviation 48.3 H (36.4-46.3) fL RDW Coeff of Omar 13.2 (11.5-14.5) % Plt Count 228 (130-400) K/uL MPV 10.0 (9.4-12.3) fL Immature Gran % (Auto) 0.6 % Neut % (Auto) 61.3 % Lymph % (Auto) 16.9 % [place] % (Auto) 13.7 % Eos % (Auto) 7.1 % Baso % (Auto) 0.4 % Neut # (Auto) 8.67 H (1.4-6.5) K/uL Lymph # (Auto) 2.39 (1.2-3.4) K/uL [place] # (Auto) 1.94 H (0.24-0.82) K/uL Eos # (Auto) 1.00 H (0-0.50) K/uL Baso # (Auto) 0.06 (0-0.2) K/uL Immature Gran # (Auto) 0.08 H (0.00-0.02) K/uL Sodium 141 (136-145) mmol/L Potassium 3.8 (3.5-5.1) mmol/L Chloride 107 (98-107) mmol/L Carbon Dioxide 23 (21-32) mmol/L Anion Gap 11 (3-11) BUN 23 (6-23) mg/dl Creatinine 1.11 (0.6-1.2) mg/dl Est Cr Clr Drug Dosing 32.3 ml/min Est GFR ( Amer) 51.0 ml/min Est GFR (Non-Af Amer) 44.0 ml/min BUN/Creatinine Ratio 20.7 H (10-20) Glucose 107 H (70-99(Fasting)) mg/dl Calcium 8.6 (8.5-10.1) mg/dl Magnesium 1.7 (1.7-2.4) mg/dl Total Bilirubin 0.5 (0.2-1.0) mg/dl AST 15 (13-39) U/L ALT 14 (7-52) U/L Alkaline Phosphatase 71 (34-104) U/L Total Creatine Kinase 41 (26-192) U/L Total Protein 5.8 L (6.0-8.3) gm/dl Albumin 3.4 (3.4-5.0) gm/dl Globulin 2.4 L (2.5-4.0) gm/dl Albumin/Globulin Ratio 1.4 (0.9-2) Urine Color Yellow Urine Appearance Clear (Clear) Urine pH 5.0 (4.5-7.5) Ur Specific [place] 1.017 (1.000-1.030) Urine Protein Trace H (Negative) Urine Glucose (UA) Negative (Negative) Urine Ketones Trace H (Negative) Urine Blood Negative (Negative) Urine Nitrite Negative (Negative) Urine Bilirubin Negative (Negative) Urine Urobilinogen Negative (Negative) Ur Leukocyte Esterase 2+ H (Negative) Urine WBC (Auto) >30 H (0-5) /hpf Urine RBC (Auto) 0-4 (0-4) /hpf U Hyaline Cast (Auto) 1-5 (0-5) /lpf U Epithel Cells (Auto) >30 H (0-5) /lpf Urine Bacteria (Auto) Negative (Negative) Ur Renal Epithelial Cell Not Reportable Urine Yeast Budding A (None Prsent) Imaging Data Radiologist's Impression: Chest X-Ray 07/25/22 13:25 XR chest 1V portable HISTORY: weakness COMPARISON: Chest 05/13/2021. FINDINGS: No pneumothorax. No pleural effusions. There is mild elevation the right hemidiaphragm, unchanged. The lungs are essentially clear. No evidence for pulmonary edema. A few small linear scarlike densities within the left lower lung zones remain unchanged. IMPRESSION: No acute process. ACT 112: Negative or not required by law. Electronically signed by: Osbaldo Washington M.D. 07/25/2022 1:54 PM Abdomen/Pelvis CT 07/25/22 13:[address] WITHOUT CONTRAST CT DOSE: 327.90 mGy.cm HISTORY: Right lower quadrant abdominal pain. TECHNIQUE: Multiaxial CT images of the abdomen and pelvis were performed without contrast. A dose lowering technique was utilized adhering to the principles of ALARA. COMPARISON STUDY: Abdomen and pelvis CTA 321. FINDINGS: Bibasilar interstitial thickening and mild dependent changes are noted at the lung bases. No pneumoperitoneum. No pneumatosis. There are bilateral total hip arthroplasties. There are old, healed left-sided rib fractures. There is an old mild superior endplate compression fracture at L3. Mitral annulus calcifications are again noted. There is a left lower quadrant colostomy with a moderate size fat-containing parastomal hernia, unchanged. The bladder is not well assessed due to the metallic artifact but likely within normal limits. Prior hysterectomy. Suboptimal evaluation for bowel pathology due to the lack of intravenous and oral contrast. However, there is no definite bowel wall thickening or obstruction. Moderate well-formed stool within the colon. Colonic diverticulosis. No evidence for acute diverticulitis. Normal appendix. Calcified plaque within the normal caliber abdominal aorta. No retroperitoneal lymphadenop athy. Bilateral nephrolithiasis. No ureteral stones. No hydronephrosis. Cholecystectomy. The unenhanced liver, spleen, and adrenal glands are unremarkable. Partial fatty replacement of the pancreas, unchanged. IMPRESSION: 1. No definite bowel wall thickening or obstruction. 2. Normal appendix. 3. Bilateral nephrolithiasis. No ureteral stones. No hydronephrosis. 4. Colonic diverticulosis. No evidence for acute diverticulitis. 5. Left lower quadrant colostomy again noted. 6. Additional findings as described above. ACT 112: Negative or not required by law. Electronically signed by: Osbaldo Washington M.D. 07/25/2022 2:11 PM ECG Data Attestation: I personally reviewed and interpreted this ECG as follows: Additional Comments: Twelve-lead EKG: Per my interpretation shows a sinus tach at a rate of 110. No ST elevation. No PVCs. Normal QTC. MDM Narrative 89-year-old female presents to the ED with a chief complaint of generalized weakness and some concerns about possible UTI. She does have some mild tenderness to the right lower quadrant on exam. Her vital signs reveal mild tachycardia. A CT scan of the abdomen pelvis did not show acute process. EKG shows a sinus tach at a rate of 110. White blood cell count is 14. Chemistry panel was unremarkable. A chest x-ray did not show acute process. Urine appears to be contaminated although there are white cells and leukocyte Estrace. The patient does have a history of UTIs that are resistant to various antibiotics. She was given an IV dose of ertapenem. She was also given some IV fluids. She was given her oral oxycodone as she was having some back pain. The patient, according to the [id number], is not acting herself. She is concerned about UTI. She will be observed in the hospital by the hospitalist service for further evaluation and care. Impression & Plan Altered mental status, UTI (urinary tract infection) Discharge Plan Visit Data Chief Complaint: Urinary Symptoms Stated Complaint: UTI, AMS ED Provider: Enmanuel Montes De Oca Discharge Problem: Altered mental status, UTI (urinary tract infection) Patient Disposition: Admitted As Inpatient Forms Stand Alone Forms: [facility], Virtual Emergency Department, Important Visit Information Prescriptions Prescriptions: No Action oxycodone 5 mg tablet 5 mg PO TID Ocuvite with Lutein 1,000 unit-200 mg-60 unit-2 mg Tablet 1 tab PO HS vitamin B complex Tablet 1 tab PO QAM gabapentin 400 mg Capsule 400 mg PO TID atorvastatin 40 mg Tablet 40 mg PO QDL Qty: 30 0RF fexofenadine 60 mg Tablet 60 mg PO QAM Qty: 30 0RF hydroxychloroquine 200 mg Tablet 200 mg PO DAILY@0800 Qty: 30 0RF nitroglycerin 0.4 mg tablet, sublingual 0.4 mg sublingual Q5M PRN (Reason: chest pain) Qty: 7 0RF diclofenac sodium [Voltaren Arthritis Pain] 1 % gel 4 g topical QID PRN (Reason: Arthritis pain) Qty: 100 0RF Rx Instructions: apply to single knee, ankle, foot; for foot includes sole/toes/top of foot duloxetine 30 mg Capsule,Delayed Release(Dr/Ec) 30 mg PO QAM Qty: 30 0RF duloxetine 60 mg Capsule,Delayed Release(Dr/Ec) 60 mg PO QAM Qty: 30 0RF fluticasone propionate 50 mcg/actuation [place],Suspension 2 spray intranasal QAM PRN (Reason: allergy symptoms) Qty: 16 0RF polyethylene glycol 3350 [Miralax] 17 gram Powder In Packet 17 g PO QAM PRN (Reason: constipation) Qty: 14 0RF famotidine 40 mg Tablet 40 mg PO HS Qty: 30 0RF cholecalciferol (vitamin D3) 25 mcg (1,000 unit) Capsule 2,000 unit PO QAM Qty: 30 0RF prednisone 10 mg Tablet 10 mg PO QAM Qty: 30 0RF levothyroxine [Synthroid] 88 mcg Tablet 88 mcg PO DAILYBB Qty: 30 0RF cyanocobalamin (vitamin B-12) 500 mcg Tablet 1,000 mcg PO QAM Qty: 60 0RF aspirin [Alix Low Dose Aspirin] 81 mg Tablet,Delayed Release (Dr/Ec) 81 mg PO QAM ascorbic acid (vitamin C) [Vitamin C] 500 mg Tablet 500 mg PO QAM midodrine 5 mg Tablet 5 mg PO BID methenamine hippurate [Hiprex] 1 gram Tablet 1 g PO BID Premarin 0.625 mg/gram Cream 0.625 mg VAGINAL 2XWK Label Comments: on docusate sodium 100 mg Tablet 100 mg PO DAILY PRN (Reason: Constipation) quetiapine 100 mg tablet 50 mg PO HS ondansetron 8 mg tablet,disintegrating 8 mg PO Q6 PRN (Reason: nausea and vomiting) lidocaine 5 % adhesive patch,medicated 1 patch transdermal DAILY PRN (Reason: Pain) dexlansoprazole [Dexilant] 60 mg capsule,biphase delayed releas 60 mg PO QAM mirabegron 50 mg tablet extended release 24 hr 50 mg PO QAM acetaminophen 500 mg tablet 1,000 mg PO TID PRN (Reason: Pain) sulfamethoxazole-trimethoprim 800-160 mg tablet 1 tab PO BID PRN (Reason: Urinary Retention) Rx Instructions: Start 01/30 End 02/04 methyl salicylate-menthol 15-10 % Cream 1 applic TOPICAL QID PRN (Reason: Pain) Referrals Referrals: Gaby Cristobal at [facility] [Primary Care Provider] -
[2022-07-25 13:47] LABS: Basophils # (auto) 0.06 K/uL (0-0.2); Basophils % (auto) 0.4 %; Eosinophils % (auto) 7.1 %; Hematocrit (blood only) 39.5 % (34.1-44.9); Hemoglobin 12.7 g/dl (12.0-16.0); Immature Granulocytes # (auto) 0.08 K/uL (0.00-0.02); Immature Granulocytes % (auto) 0.6 %; Lymphocytes # (auto) 2.39 K/uL (1.2-3.4); Lymphocytes % (auto) 16.9 %; Mean Corpuscular Hemoglobin 32.1 pg (25.0-34.0); Mean Corpuscular Hgb Conc 32.2 g/dL (32.0-36.0); Mean Corpuscular Volume 99.7 fL (80.0-100.0); Monocytes # (auto) 1.94 K/uL (0.24-0.82); Monocytes % (auto) 13.7 %; Neutrophils # (auto) 8.67 K/uL (1.4-6.5); Neutrophils % (auto) 61.3 %; Platelet Count 228 K/uL (130-400); RDW Coefficient of Variation 13.2 % (11.5-14.5); RDW Standard Deviation 48.3 fL (36.4-46.3); Red Blood Count 3.96 M/uL (3.93-5.22); White Blood Count 14.14 K/ul (4.8-10.8)
--- NOTE | 2022-07-25 13:55 | XRay Report ---
XR chest 1V portable HISTORY: weakness COMPARISON: Chest 05/13/2021. FINDINGS: No pneumothorax. No pleural effusions. There is mild elevation the right hemidiaphragm, unc hanged. The lungs are essentially clear. No evidence for pulmonary edema. A few small linear scarlike densities within the left lower lung zones remain unchanged. IMPRESSION: No acute process. ACT 112: Negative or not required by law. Electronically signed by: Osbaldo Washington M.D. 07/25/2022 1:54 PM
[2022-07-25 14:09] LABS: Albumin Globulin Ratio 1.4 (0.9-2); Albumin Level 3.4 gm/dl (3.4-5.0); BUN Creatinine Ratio 20.7 (10-20); Bilirubin,Total 0.5 mg/dl (0.2-1.0); Calcium 8.6 mg/dl (8.5-10.1); Creatinine Clr Calc Pharmacy 32.3 ml/min; Globulin 2.4 gm/dl (2.5-4.0); Magnesium 1.7 mg/dl (1.7-2.4); Potassium 3.8 mmol/L (3.5-5.1); Total Protein 5.8 gm/dl (6.0-8.3)
--- NOTE | 2022-07-25 14:13 | CT Scan Report ---
ABDOMEN AND PELVIS CT WITHOUT CONTRAST CT DOSE: 327.90 mGy.cm HISTORY: Right lower quadrant abdominal pain. TECHNIQUE: Multiaxial CT images of the abdomen and pelvis were performed without contrast. A dose lo wering technique was utilized adhering to the principles of ALARA. COMPARISON STUDY: Abdomen and pelvis CTA 321. FINDINGS: Bibasilar interstitial thickening and mild dependent changes are noted at the lung bases. N o pneumoperitoneum. No pneumatosis. There are bilateral total hip arthroplasties. There are old, heal ed left-sided rib fractures. There is an old mild superior endplate compression fracture at L3. Jenelle l annulus calcifications are again noted. There is a left lower quadrant colostomy with a moderate si ze fat-containing parastomal hernia, unchanged. The bladder is not well assessed due to the metallic artifact but likely within normal limits. Prior hysterectomy. Suboptimal evaluation for bowel patholo gy due to the lack of intravenous and oral contrast. However, there is no definite bowel wall thicken ing or obstruction. Moderate well-formed stool within the colon. Colonic diverticulosis. No evidence for acute diverticulitis. Normal appendix. Calcified plaque within the normal caliber abdominal aorta . No retroperitoneal lymphadenopathy. Bilateral nephrolithiasis. No ureteral stones. No hydronephrosi s. Cholecystectomy. The unenhanced liver, spleen, and adrenal glands are unremarkable. Partial fatty replacement of the pancreas, unchanged. IMPRESSION: 1. No definite bowel wall thickening or obstruction. 2. Normal appendix. 3. Bilateral nephrolithiasis. No ureteral stones. No hydronephrosis. 4. Colonic diverticulosis. No evidence for acute diverticulitis. 5. Left lower quadrant colostomy again noted. 6. Additional findings as described above. ACT 112: Negative or not required by law. Electronically signed by: Osbaldo Washington M.D. 07/25/2022 2:11 PM
[2022-07-25 14:47] LABS: Appearance Urine Clear (Clear); Bacteria Urine Automated Negative (Negative); Bilirubin Urine Negative (Negative); Blood Urine Negative (Negative); Color Urine Yellow; Epithelial Cell Urine Auto >30 /lpf (0-5); Glucose Urine UA Negative (Negative); Ketones Urine Trace (Negative); Leukocyte Esterase Urine 2+ (Negative); Nitrite Urine Negative (Negative); Protein Urine Trace (Negative); RBC Urine Automated 0-4 /hpf (0-4); Specific Gravity Urine 1.017 (1.000-1.030); Urobilinogen Urine Negative (Negative); WBC Urine Automated >30 /hpf (0-5)
--- NOTE | 2022-07-25 15:12 | Electrocardiogram Report ---
Test Reason : Blood Pressure : / mmHG Vent. Rate : 110 BPM Atrial Rate : 110 BPM P-R Int : 132 ms QRS Dur : 114 ms QT Int : 364 ms P-R-T Axes : 017 073 016 degrees QTc Int : 492 ms Sinus tachycardia Low voltage QRS Incomplete right bundle branch block Nonspecific T wave abnormality Inferior leads Borderline ECG When compared with ECG of 13-MAY-2021 15:20, No significant change was found Confirmed by Harish Schrader ([id number]) on 07/25/2022 3:12:27 PM Referred By: REFERRED SELF Confirmed By:Harish Schrader
[2022-07-25] MEDS ORDERED: CEFEPIME 2,000 MG/20 ML VIAL IV STA (15:17)
[2022-07-25] MEDS ORDERED: ERTAPENEM SODIUM 10 ML IV STA (15:33)
[2022-07-25] MEDS ORDERED: oxyCODONE HCL IR 5 MG TAB (IMMEDIATE RELEASE) PO STA (15:34)
--- NOTE | 2022-07-25 15:36 | History & Physical Report ---
Date of Service July 25, 2022 Assessment & Plan (1) UTI (urinary tract infection): Plan: - Dysuria, weakness, confusion which is typical presentation for this patient with UTIs. - Elevated WBC of 14, UA with 2+ leuk esterase, >30 WBCs, but without bacteria or nitrite. - Given previous resistant Kelbsiella, patient started on ertapenem. - Follow urine cx. - PT/OT to evaluate given her weakness. (2) Stage III chronic kidney disease: Plan: - Renal function at/near baseline. - Appears hypovolemic; will give mIVF LRs 80cc/hr x 1 L. - Renally dose medications, avoid nephrotoxins. - BMP in AM. (3) Chronic diastolic heart failure: Plan: - Most recent laboratory revealed 2019: EF 60-65%, mild LVH, grade 1 diastolic dysfunction - Appears hypovolemic, will give gentle IVF. - Watch volume status. (4) Rheumatoid arthritis: Plan: - Continue hydroxychloroquine, prednisone. (5) Depression: Plan: - Continue Cymbalta, quetiapine at night. (6) Hypothyroidism: Plan: - Continue Synthroid. (7) Hyperlipidemia: Plan: - Continue atorvastatin. (8) POTS (postural orthostatic tachycardia syndrome): Plan: - Continue midodrine 5 mg twice daily. (9) Chronic back pain: Plan: - Continue oxycodone 5 mg 3 times daily, gabapentin 400 mg 3 times daily. - Continue lidocaine patches. (10) Barretts esophagus: Plan: - Continue PPI, Pepcid. Plan - ADmit to med/surg. - SCDs, Lovenox o History of Present Illness Chief Complaint: weakness, chills, dysuria, confusion at [facility] Primary Care Provider: [facility] at [place] Sher[place] Neal is an 89-year-old female with past medical history of recurrent UTIs, CAD, CKD, hypothyroidism, rheumatoid arthritis, and diastolic heart failure who presents today from [facility]. Per [id number], who is at bedside, patient has been generally more weak and confused. She also complained of burning after urinating over the past few days. Patient does have a history of frequent UTIs, the past she has grown out Klebsiella with multiple resistance patterns. She was started on Augmentin as an outpatient yesterday for UTI. At the bedside, patient complains of her chronic low back pain and left lower quadrant pain, as well as being very cold. She is alert and oriented. Upon arrival to the ED, she was slightly hypoxic with SpO2 87% on RA, transitioned to 2 L NC. She has been mildly hypertensive and tachycardic with HR 100-110. Afebrile. Labs significant for WBC 14 with left shift, UA contaminated with > 30 epi cells, with 2+ leuk esterase and > 30 WBCs and budding yeast. A CXR is unremarkable. 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 No obstructing renal stones, diverticulitis, or bowel wall thickening/obstruction. Allergies Allergy/AdvReac Type Severity Reaction Status Date / Time nitrofurantoin Allergy Severe HIVES Verified 04/29/22 12:33 scallops Allergy Severe THROAT Verified 04/29/22 12:33 SWELLS ciprofloxacin Allergy Intermediate HIVES Verified 04/29/22 12:33 latex Allergy Intermediate RASH Verified 04/29/22 12:33 Quinolones Allergy Intermediate HIVES Verified 04/29/22 12:33 fluticasone Allergy Unknown ADVAIR-UNKN Verified 04/29/22 12:33 OWN salmeterol Allergy Unknown ADVAIR Verified 04/29/22 12:33 celecoxib AdvReac Intermediate barretts Verified 04/29/22 12:33 esophagus lactose AdvReac Intermediate GI UPSET Verified 04/29/22 12:33 morphine AdvReac Intermediate NAUSEA AND Verified 04/29/22 12:33 VOMITING Home Medications Medication Instructions Recorded Confirmed Type vit A 300 mcg-C 200 mg-E 27 1 tab PO HS 08/31/18 07/25/22 History mg-lutein 2 mg and minerals tablet (Ocuvite with Lutein) vitamin B complex 1 tab PO QAM 09/26/18 07/25/22 History atorvastatin 40 mg tablet 40 mg PO QDL #30 tabs 05/28/21 07/25/22 Rx cholecalciferol (vitamin D3) 25 2,000 unit PO QAM #30 caps 05/28/21 07/25/22 Rx mcg (1,000 unit) capsule cyanocobalamin (vitamin B-12) 500 1,000 mcg PO QAM #60 tabs 05/28/21 07/25/22 Rx mcg tablet diclofenac sodium 1 % topical gel 4 g topical QID PRN Arthritis pain 05/28/21 07/25/22 Rx (Voltaren Arthritis Pain) #100 grams duloxetine 30 mg capsule,delayed 30 mg PO QAM #30 caps 05/28/21 07/25/22 Rx release duloxetine 60 mg capsule,delayed 60 mg PO QAM #30 caps 05/28/21 07/25/22 Rx release famotidine 40 mg tablet 40 mg PO HS #30 tabs 05/28/21 07/25/22 Rx fexofenadine 60 mg tablet 60 mg PO QAM #30 tabs 05/28/21 07/25/22 Rx fluticasone propionate 50 2 spray intranasal QAM PRN allergy 05/28/21 07/25/22 Rx mcg/actuation nasal symptoms #16 grams spray,suspension hydroxychloroquine 200 mg tablet 200 mg PO DAILY@0800 #30 tabs 05/28/21 07/25/22 Rx levothyroxine 88 mcg tablet 88 mcg PO DAILYBB #30 tabs 05/28/21 07/25/22 Rx (Synthroid) nitroglycerin 0.4 mg sublingual 0.4 mg sublingual Q5M PRN chest 05/28/21 07/25/22 Rx tablet pain #7 tabs polyethylene glycol 3350 17 gram 17 g PO QAM PRN constipation #14 ea 05/28/21 07/25/22 Rx oral powder packet (Miralax) prednisone 10 mg tablet 10 mg PO QAM #30 tabs 05/28/21 07/25/22 Rx oxycodone 5 mg tablet 5 mg PO TID 07/10/21 07/25/22 History ascorbic acid (vitamin C) 500 mg 500 mg PO QAM 08/12/21 07/25/22 History tablet (Vitamin C) aspirin 81 mg tablet,delayed 81 mg PO QAM 08/12/21 07/25/22 History release (Alix Low Dose Aspirin) conjugated estrogens 0.625 mg/gram 0.625 mg vaginal 2XWK 08/12/21 07/25/22 History vaginal cream (Premarin) dexlansoprazole 60 mg 60 mg PO QAM 08/12/21 07/25/22 History capsule,biphase delayed release (Dexilant) docusate sodium 100 mg tablet 100 mg PO DAILY PRN Constipation 08/12/21 07/25/22 History lidocaine 5 % topical patch 1 patch transdermal DAILY PRN Pain 08/12/21 07/25/22 History methenamine hippurate 1 gram 1 g PO BID 08/12/21 07/25/22 History tablet (Hiprex) midodrine 5 mg tablet 5 mg PO BID 08/12/21 07/25/22 History ondansetron 8 mg disintegrating 8 mg PO Q6 PRN nausea and vomiting 08/12/21 07/25/22 History tablet quetiapine 100 mg tablet 50 mg PO HS 08/12/21 07/25/22 History mirabegron 50 mg tablet,extended 50 mg PO QAM 09/26/21 07/25/22 History release 24 hr gabapentin 400 mg capsule 400 mg PO TID 12/31/21 07/25/22 History methyl salicylate 15 %-menthol 10 1 applic topical QID PRN Pain 04/21/22 07/25/22 History % topical cream Past Med/Surg History Medical History (Updated 07/25/22 @ 17:51 by Saba Huffman PA-C) Adrenocortical insufficiency Allergic rhinitis Arteriosclerosis of coronary artery Asthma Balance problem Barretts esophagus Chronic back pain Chronic cystitis CKD (chronic kidney disease), stage III does not follow with nephrology Clostridium difficile carrier Colovaginal fistula ? daughter believes it is bladder Cyclic citrullinated peptide (CCP) antibody positive Diverticular disease Esophageal spasm history Generalized weakness GERD (gastroesophageal reflux disease) Herpes simplex type 1 infection hx Hiatal hernia History of aspiration pneumonia last occurence 11/2019 History of COVID-19 05/2021 (HOSPITALIZED WITH PNX) *FEELING BETTER History of pneumonia COVID PNX Hypercholesterolemia Hypothyroidism Impaired mobility and ADLs walker and wheelchair as needed Iron deficiency anemia Lactose intolerance MCFP (current) use of systemic steroids Long-term use of hydroxychloroquine Lumbar canal stenosis Major depressive disorder, recurrent 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 BL H/A - does not wear Orthostatic hypotension Peripheral arterial disease Peripheral edema Peripheral neuropathy Polyarthritis Poor balance Pre-diabetes Presence of colostomy Rheumatoid arthritis Solitary pulmonary nodule Steroid-induced osteopenia TIA (transient ischemic attack) 2016 Urinary incontinence Urinary retention Surgical History H/O: hysterectomy HOLGER, BSO History of cardiac catheterization 2010 -- no stents/angioplasty -- [facility] - CP - dtr believes she follows w/ [facility] History of colon surgery sigmoid colon resection History of colonoscopy History of esophagogastroduodenoscopy (EGD) History of hip replacement bilateral 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 History of tooth extraction History of vascular surgery lower extremity unknown which leg- stents Hx of cholecystectomy Family History Grandmother (Maternal) Breast cancer Uterine cancer Father Cardiomyopathy Mother Alzheimer disease Son Colorectal cancer Daughter Breast cancer Other Cancer Diabetes Gallbladder disease Heart disease Hypertension No family history of adverse response to anesthesia Seizure Denies family history of Malignant hypothermia due to anesthesia Ovarian cancer Prostate cancer Crohn's disease Myocardial infarction Bleeding disorder Ulcerative colitis Social History Smoking Status: Unknown if ever smoked Second Hand Exposure: Yes (IN THE PAST); Hx Alcohol Use: No Hx Substance Use: No Preferred Language: Greek Communication Ability: Effective Visual Impairment: No Limitations Hearing Ability: Hard of Hearing Chain Link Fence Installer Required: No Beliefs That Will Affect Care: None marital status: / Current Living Situation: [facility] Current Living Situation Comment: [facility] current occupational status: retired How many Children do You have: 5 Feels Safe at Home: Yes Childhood Exposure to Second-Hand Smoke: Yes caffeine: Yes during the past year weight has: remained stable Dental Care, Regularly: Yes Physical Activity Frequency: Does not Exercise Seatbelt Use: always Sunscreen Use: Yes Do you think of yourself as: straight/heterosexual Assistive Devices: Denture - Upper, Denture - Lower, Glasses, Hearing Aid - Bilateral and Wheelchair Review of Systems Review of Systems: Constitutional: chills, weakness, at home; no fevers, fatigue, myalgias, anorexia, night sweats Eyes: No diplopia, no worsening or blurred vision ENT: normal hearing, no trouble swallowing Respiratory: No cough, sputum, dyspnea at rest or on exertion Cardiovascular: No chest pain, tightness or palpitations Abdomen: No pain, nausea, vomiting, diarrhea or constipation : dysuria at home; no hematuria, increased urgency/frequency, urinary retention Musculoskeletal: No joint pain, calf pain, swelling Neurologic: No weakness, numbness/tingling, or balance problems Psychiatric: No anxiety or depression Skin: No rash or itch Physical Exam Physical Exam: General: awake, alert, no apparent distress Head: Normocephalic, atraumatic ENT: PERRL, EOMI, no pharyngeal exudate, mucous membranes moist Chest: Clear to auscultation, on room air, no adventitious breath sounds Cardiac: Regular rate and rhythm, no murmur, no JVD, normal peripheral pulses, good capillary refill Abdominal: very TTP in RLQ; NABS x 4 quadrants, soft, nontender to palpation, no rebound, guarding or tenderness Extremities: Normal inspection, no peripheral edema or erythema, calfs nontender to palpation Psych: Normal mood and affect Neuro: AAO x 3, strength intact bilaterally and rated 5/5, no motor deficits, speech is clear, no peripheral sensory deficits Skin: no rash or erythema Results & Data Results & Data ([facility]) Vital Signs (Past 12 Hours) Vital Signs Temp Pulse Resp BP Pulse Ox O2 Del Method 07/25/22 14:30 104 H 17 93 07/25/22 14:30 147/57 H 07/25/22 14:00 106 H 11 L 98 07/25/22 14:00 141/59 H 07/25/22 13:37 113 H 19 07/25/22 13:36 152/69 H 07/25/22 13:43 110 H 18 87 L Room Air 07/25/22 13:30 37.3 C 114 H 18 123/77 96 Room Air Laboratory Results Abnormal lab results 07/25/22 07/25/22 07/25/22 Range/Units 13:32 13:32 : WBC 14.14 H (4.8-10.8) K/ul RDW Std Deviation 48.3 H (36.4-46.3) fL Neut # (Auto) 8.67 H (1.4-6.5) K/uL [place] # (Auto) 1.94 H (0.24-0.82) K/uL Eos # (Auto) 1.00 H (0-0.50) K/uL Immature Gran # (Auto) 0.08 H (0.00-0.02) K/uL BUN/Creatinine Ratio 20.7 H (10-20) Glucose 107 H (70-99(Fasting)) mg/dl Total Protein 5.8 L (6.0-8.3) gm/dl Globulin 2.4 L (2.5-4.0) gm/dl Urine Protein Trace H (Negative) Urine Ketones Trace H (Negative) Ur Leukocyte Esterase 2+ H (Negative) Urine WBC (Auto) >30 H (0-5) /hpf U Epithel Cells (Auto) >30 H (0-5) /lpf Urine Yeast Budding A (None Prsent) Diagnostic Findings Chest X-Ray 07/25/22 13:25 XR chest 1V portable HISTORY: weakness COMPARISON: Chest 05/13/2021. FINDINGS: No pneumothorax. No pleural effusions. There is mild elevation the right hemidiaphragm, unchanged. The lungs are essentially clear. No evidence for pulmonary edema. A few small linear scarlike densities within the left lower lung zones remain unchanged. IMPRESSION: No acute process. ACT 112: Negative or not required by law. Electronically signed by: Osbaldo Washington M.D. 07/25/2022 1:54 PM Abdomen/Pelvis CT 07/25/22 13:[address] WITHOUT CONTRAST CT DOSE: 327.90 mGy.cm HISTORY: Right lower quadrant abdominal pain. TECHNIQUE: Multiaxial CT images of the abdomen and pelvis were performed without contrast. A dose lowering technique was utilized adhering to the principles of ALARA. COMPARISON STUDY: Abdomen and pelvis CTA 321. FINDINGS: Bibasilar interstitial thickening and mild dependent changes are noted at the lung bases. No pneumoperitoneum. No pneumatosis. There are bilateral total hip arthroplasties. There are old, healed left-sided rib fractures. There is an old mild superior endplate compression fracture at L3. Mitral annulus calcifications are again noted. There is a left lower quadrant colostomy with a moderate size fat-containing parastomal hernia, unchanged. The bladder is not well assessed due to the metallic artifact but likely within normal limits. Prior hysterectomy. Suboptimal evaluation for bowel pathology due to the lack of intravenous and oral contrast. However, there is no definite bowel wall thickening or obstruction. Moderate well-formed stool within the colon. Colonic diverticulosis. No evidence for acute diverticulitis. Normal appendix. Calcified plaque within the normal caliber abdominal aorta. No retroperitoneal lymphadenopathy. Bilateral nephrolithiasis. No ureteral stones. No hydronep hrosis. Cholecystectomy. The unenhanced liver, spleen, and adrenal glands are unremarkable. Partial fatty replacement of the pancreas, unchanged. IMPRESSION: 1. No definite bowel wall thickening or obstruction. 2. Normal appendix. 3. Bilateral nephrolithiasis. No ureteral stones. No hydronephrosis. 4. Colonic diverticulosis. No evidence for acute diverticulitis. 5. Left lower quadrant colostomy again noted. 6. Additional findings as described above. ACT 112: Negative or not required by law. Electronically signed by: Osbaldo Washington M.D. 07/25/2022 2:11 PM ECG Additional Comments: Sinus tachycardia Low voltage QRS Incomplete right bundle branch block Nonspecific T wave abnormality Inferior leads Borderline ECG When compared with ECG of 13-MAY-2021 15:20, No significant change was found Confirmed by Harish Schrader ([id number]) on 07/25/2022 3:12:27 PM. Code Status & VTE Plan Code Status DNR/DNI. Supervising Physician Co-Signing Physician Notes Patient seen and examined, chart reviewed, case discussed with Saba Huffman PA-C and I agree with the assessment and plan as above except as otherwise noted Labs and images reviewed Seen at bedside. Presented with dysuria weakness, and confusion similar to past episodes of UTI. Patient reports she is little nauseous since getting antibiotics otherwise feels well at bedside without concerns. Lungs are clear. Heart rate regular. No JVD. Other than mild nausea no concerns at bedside, denies pain at time of assessment. Agree with antibiotics and management above. PG Care Time/CCT Total # of Minutes Spent Total Time Spent with Patient: Total time spent is greater than 50% in coordination of care (as documented) at patient's floor/unit and/or counseling patient: Coding Level of Care Code 46774 Initial Inpt Care Lvl 3 Diagnoses UTI (urinary tract infection) N39.0 Stage III chronic kidney disease N18.3 Chronic diastolic heart failure I50.32 Rheumatoid arthritis M06.9 Depression F32.9 Hypothyroidism E03.9 Hyperlipidemia E78.5 POTS (postural orthostatic tachycardia syndrome) G90.A Chronic back pain M54.9; G89.29 Barretts esophagus K22.70 Glasgow's esophagus type: without dysplasia (1) Barretts esophagus Glasgow's esophagus type: without dysplasia Qualified Code(s): K22.70 - Glasgow's esophagus without dysplasia
[2022-07-25] MEDS ORDERED: POLYETHYLENE (MIRALAX) 17 GM PACK PO PRN (18:56)
[2022-07-25] MEDS ORDERED: FLUTICASONE PROPIONATE NA SPR 16 GM BTL PRN (18:56)
[2022-07-25] MEDS ORDERED: ACETAMINOPHEN 500 MG TAB PO PRN (18:56)
[2022-07-25] MEDS ORDERED: DICLOFENAC SOD 1% GEL 100 GM TUBE EXT PRN (18:56)
[2022-07-25] MEDS ORDERED: LIDOCAINE 5% 1 PATCH TD PRN (18:56)
[2022-07-25] MEDS ORDERED: NITROGLYCERIN SL 0.4 MG/TAB TAB SL PRN (18:56)
[2022-07-25] MEDS ORDERED: DOCUSATE SODIUM 100 MG CAP PO PRN (19:04)
[2022-07-25] MEDS ORDERED: TROLAMINE SALICYLATE 10% CRM 255 APPLN/85 GM TUBE EXT PRN (19:11)
[2022-07-25] MEDS: ENOXAPARIN INJ 40 MG/0.4 ML SYR SQ SCH (20:39)
[2022-07-25] MEDS: GABAPENTIN 400 MG CAP PO SCH (20:40)
[2022-07-25] MEDS: MIDODRINE HCL 2.5 MG TAB PO SCH (20:41)
[2022-07-25] MEDS: FAMOTIDINE 40 MG TABLET PO SCH (20:42)
[2022-07-25] MEDS: QUEtiapine FUMARATE 25 MG TABLET PO SCH (20:42)
[2022-07-25] MEDS: CEROVITE ADV FORMULA TAB PO SCH (20:42)
[2022-07-25] MEDS: ONDANSETRON INJ 2 MG/ML 2 ML VIAL IV PRN (20:48)
[2022-07-26] MEDS: LEVOTHYROXINE SODIUM 88 MCG TABLET PO SCH (05:48)
[2022-07-26 06:26] LABS: Basophils # (auto) 0.05 K/uL (0-0.2); Basophils % (auto) 0.5 %; Eosinophils % (auto) 8.7 %; Hematocrit (blood only) 37.4 % (34.1-44.9); Hemoglobin 11.8 g/dl (12.0-16.0); Immature Granulocytes # (auto) 0.06 K/uL (0.00-0.02); Immature Granulocytes % (auto) 0.7 %; Lymphocytes % (auto) 18.5 %; Mean Corpuscular Hemoglobin 32.2 pg (25.0-34.0); Mean Corpuscular Hgb Conc 31.6 g/dL (32.0-36.0); Mean Corpuscular Volume 101.9 fL (80.0-100.0); Mean Platelet Volume 10.2 fL (9.4-12.3); Monocytes # (auto) 1.48 K/uL (0.24-0.82); Monocytes % (auto) 16.1 %; Neutrophils # (auto) 5.12 K/uL (1.4-6.5); Neutrophils % (auto) 55.5 %; Platelet Count 190 K/uL (130-400); RDW Coefficient of Variation 13.2 % (11.5-14.5); Red Blood Count 3.67 M/uL (3.93-5.22); White Blood Count 9.21 K/ul (4.8-10.8)
[2022-07-26 06:44] LABS: BUN Creatinine Ratio 17.3 (10-20); Calcium 8.4 mg/dl (8.5-10.1); Creatinine Clr Calc Pharmacy 31.8 ml/min; Est GFR (African American) 55.2 ml/min; Est GFR (Non-African American) 47.6 ml/min; Potassium 3.8 mmol/L (3.5-5.1)
--- NOTE | 2022-07-26 07:45 | Hospitalist Progress Note ---
Date of Service July 26, 2022 Assessment & Plan (1) UTI (urinary tract infection): (2) Stage III chronic kidney disease: (3) Chronic diastolic heart failure: (4) Rheumatoid arthritis: (5) Depression: (6) Hypothyroidism: (7) Hyperlipidemia: (8) POTS (postural orthostatic tachycardia syndrome): (9) Chronic back pain: (10) Barretts esophagus: Plan Sheridan is an 89 year old female with past medical history of recurrent UTI (prior Klebsiella), CKD3, CAD, RA, hypothyroidism, and diastolic heart failure who presented from [facility] with her daughter for confusion, weakness, and dysuria. She received IVF in the ED and was started on Ertapenem d/t hx of Klebsiella UTI, she was subsequently admitted for further management. UTI - Pt w/ hx of recurrent UTI (hx of Klebsiella UTI) presenting with typical presentation for patient (dysuria, weakness, confusion) - Leukocytosis (14), tachycardia (114), and urinalysis with 2+ leuk esterase and >30 WBC (no bacteria or nitrite) noted on admission - Was started on Ertapenem given hx of Klebsiella --- Continue Ertapenem --- Urine culture pending --- PT/OT eval pending given weakness on presentation Chest Pain (Acute 07/26) likely 2/2 GI Source - Associated with epigastric discomfort, nausea, thoracic back pain, and discomfort in L Arm - Ongoing hx of reflux/Glasgow's esophagus, chronically on PPI and Pepcid - EKG performed 0900 07/26, unchanged from 07/25, no evidence of ST elevation, ST depression, or T wave inversion, ongoing tachycardia - Gave Zofran in room, resolved chest discomfort, ongoing epigastric pain --- Elevation of BP (156/67) trending down --- Mild elevation of Troponin (124.6), will trend --- Rx GI Cocktail (Pepcid, 15 mL Maalox, 15 mL viscous Lidocaine), symptomatic improvement noted @ 1100 Supplemental O2 Requirement (Acute 07/25) - Mild increase in O2 requirement, patient stable on room air outpatient - Attempts to wean unsuccessful - Subjective shortness of breath, lungs CTAB, breathing non-labored --- Continue O2 supplementation --- Following Elevated Troponin (Established 07/26) - Troponin found to be mildly elevated to (124.6) during episode of chest pain w/ epigastric discomfort - Pt has hx of troponin elevations in 2019 and 2019 - Previous Echo (2019) indicated diastolic HF, EF 60-65%, no wall motion abnormalities --- Will trend troponin q3h x 3 --- If troponin rising (> 500) will plan Echo CKD3 - Renal function at patient baseline - Hypovolemic on presentation, given LR @ 80 cc/hr x 1 L, following fluid status - Avoiding nephrotoxic agents and renal dosing medications ---Following volume status, 07/26 BMP unremarkable Chronic diastolic heart failure: - Echo 2019: EF 60-65%, mild LVH, grade 1 diastolic dysfunction - Appears hypovolemic, gentle IVF given ---Following volume status, 07/26 BMP unremarkable Rheumatoid arthritis: - Continue hydroxychloroquine, prednisone. Depression: - Continue Cymbalta, quetiapine at night. Hypothyroidism: - Continue Synthroid. Hyperlipidemia: - Continue atorvastatin. POTS (postural orthostatic tachycardia syndrome): - Continue midodrine 5 mg twice daily. Chronic back pain: - Continue oxycodone 5 mg TID, gabapentin 400 mg TID - Continue lidocaine patches Barretts esophagus: - Continue PPI, Pepcid. Diet:Regular IVF: LR 80cc/hr x 1 L DVT PPx: SCD/Lovenox Dispo:Med/Surg Code Status: DNR/DNI Admission and Anticipated Discharge Date Admission Date: July 25, 2022 Supervising Physician Co-Signing Physician Notes I personally examined the patient and verified all amaro points of history and exam, discussed case, and agree with decision making with Dr Beck seen multiple times - d/w dr beck and nursing throughout the day. sleeping comfortably each time i see her. chest/abdominal pains resolved Vitals noted, in general she is asleep in no distress. Breathing unlabored no accessory muscle use good effort. Skin shows no rashes no pallor or icterus. Neuro with no asymmetry at rest UTIappears to be yeastwith her age, frailty, correction setting, and frequent UTIs, this does appear consistentfluconazole. Follow daily EKG for now Chest/abdominal painalmost certainly upper GI. Has resolved with treatment. Mild demand ischemiafitting with her infection, overall frailty, and baseline heart disease. DVT prophylaxisLovenox Otherwise as above Subjective Sheridan is an 89 year old female with past medical history of recurrent UTI (prior Klebsiella), CKD3, CAD, RA, hypothyroidism, and diastolic heart failure who presented from [facility] with her daughter for confusion, weakness, and dysuria. 07/26/22 - Patient curled up in bed upon arrive, once repositioned patient began to complain of chest and epigastric pain - She notes centralized chest pain with upper epigastric pain, pain radiating to her left arm and mid back - Endorsed nausea that began last night and resolved with Zofran, but has now returned this morning - Patient is unable to describe her symptoms further (crushing vs burning, exact onset, hx of similar sx) - She denies ongoing dysuria and suprapubic pain, but is endorsing a new headache - Patient continues to urinate and stool regularly - Nursing notes that this morning's episode is different than her clinical picture on arrival to the floor Review of Systems Review of Systems: - As per HPI Physical Exam Physical Exam: Gen: NAD, fatigued, uncomfortable HEENT: Supple, no JVD Resp:Non-labored, no wheezing/rhonchi/rales, CTAB CV:RRR, normal S1/S2, no M/R/G, no reproducible chest TTP Abd: Soft, non-distended, mild epigastric TTP, normoactive bowels, no masses Extr: 2+ dp bilaterally, no edema Skin: No rashes lesions or erythema Results & Data Results & Data ([facility]) Vital Signs (Past 12 Hours) Vital Signs Temp Pulse Resp BP BP Pulse Ox O2 Del Method 07/25/22 23:12 76 L Room Air 07/25/22 23:14 37.2 C 114 H 18 136/70 92 Nasal Cannula 07/25/22 20:40 137/68 O2 Flow Rate 07/25/22 23:12 07/25/22 23:14 2 07/25/22 20:40 Diagnostic Findings Laboratory Results WBC 9.21 K/ul (4.8-10.8) 07/26/22 05:54 RBC 3.67 M/uL (3.93-5.22) L 07/26/22 05:54 Hgb 11.8 g/dl (12.0-16.0) L 07/26/22 05:54 Hct 37.4 % (34.1-44.9) 07/26/22 05:54 MCV 101.9 fL (80.0-100.0) H 07/26/22 05:54 MCH 32.2 pg (25.0-34.0) 07/26/22 05:54 MCHC 31.6 g/dL (32.0-36.0) L 07/26/22 05:54 RDW Std Deviation 49.0 fL (36.4-46.3) H 07/26/22 05:54 RDW Coeff of Omar 13.2 % (11.5-14.5) 07/26/22 05:54 Plt Count 190 K/uL (130-400) 07/26/22 05:54 MPV 10.2 fL (9.4-12.3) 07/26/22 05:54 Immature Gran % (Auto) 0.7 % 07/26/22 05:54 Neut % (Auto) 55.5 % 07/26/22 05:54 Lymph % (Auto) 18.5 % 07/26/22 05:54 [place] % (Auto) 16.1 % 07/26/22 05:54 Eos % (Auto) 8.7 % 07/26/22 05:54 Baso % (Auto) 0.5 % 07/26/22 05:54 Neut # (Auto) 5.12 K/uL (1.4-6.5) 07/26/22 05:54 Lymph # (Auto) 1.70 K/uL (1.2-3.4) 07/26/22 05:54 [place] # (Auto) 1.48 K/uL (0.24-0.82) H 07/26/22 05:54 Eos # (Auto) 0.80 K/uL (0-0.50) H 07/26/22 05:54 Baso # (Auto) 0.05 K/uL (0-0.2) 07/26/22 05:54 Immature Gran # (Auto) 0.06 K/uL (0.00-0.02) H 07/26/22 05:54 Sodium 141 mmol/L (136-145) 07/26/22 05:54 Potassium 3.8 mmol/L (3.5-5.1) 07/26/22 05:54 Chloride 108 mmol/L (98-107) H 07/26/22 05:54 Carbon Dioxide 26 mmol/L (21-32) 07/26/22 05:54 Anion Gap 7 (3-11) 07/26/22 05:54 BUN 18 mg/dl (6-23) 07/26/22 05:54 Creatinine 1.04 mg/dl (0.6-1.2) 07/26/22 05:54 Est Cr Clr Drug Dosing 31.8 ml/min 07/26/22 05:54 Est GFR ( Amer) 55.2 ml/min 07/26/22 05:54 Est GFR (Non-Af Amer) 47.6 ml/min 07/26/22 05:54 BUN/Creatinine Ratio 17.3 (10-20) 07/26/22 05:54 Glucose 94 mg/dl (70-99(Fasting)) 07/26/22 05:54 Calcium 8.4 mg/dl (8.5-10.1) L 07/26/22 05:54 Magnesium 1.7 mg/dl (1.7-2.4) 07/25/22 13:32 Total Bilirubin 0.5 mg/dl (0.2-1.0) 07/25/22 13:32 AST 15 U/L (13-39) 07/25/22 13:32 ALT 14 U/L (7-52) 07/25/22 13:32 Alkaline Phosphatase 71 U/L (34-104) 07/25/22 13:32 Total Creatine Kinase 41 U/L (26-192) 07/25/22 13:32 Total Protein 5.8 gm/dl (6.0-8.3) L 07/25/22 13:32 Albumin 3.4 gm/dl (3.4-5.0) 07/25/22 13:32 Globulin 2.4 gm/dl (2.5-4.0) L 07/25/22 13:32 Albumin/Globulin Ratio 1.4 (0.9-2) 07/25/22 13:32 Urine Color Yellow 07/25/22 14: Urine Appearance Clear (Clear) 07/25/22 14: Urine pH 5.0 (4.5-7.5) 07/25/22 14:22 Ur Specific [place] 1.017 (1.000-1.030) 07/25/22 14: Urine Protein Trace (Negative) H 07/25/22 14: Urine Glucose (UA) Negative (Negative) 07/25/22 14: Urine Ketones Trace (Negative) H 07/25/22 14: Urine Blood Negative (Negative) 07/25/22 14: Urine Nitrite Negative (Negative) 07/25/22 14: Urine Bilirubin Negative (Negative) 07/25/22 14: Urine Urobilinogen Negative (Negative) 07/25/22 14:22 Ur Leukocyte Esterase 2+ (Negative) H 07/25/22 14:22 Urine WBC (Auto) >30 /hpf (0-5) H 07/25/22 14: Urine RBC (Auto) 0-4 /hpf (0-4) 07/25/22 14: U Hyaline Cast (Auto) 1-5 /lpf (0-5) 07/25/22 14: U Epithel Cells (Auto) >30 /lpf (0-5) H 07/25/22 14:22 Urine Bacteria (Auto) Negative (Negative) 07/25/22 14: Ur Renal Epithelial Cell Not Reportable 07/25/22 14: Urine Yeast Budding (None Prsent) A 07/25/22 14:22 Nasal Screen MRSA (PCR) Negative (Negative) 07/26/22 05:45 SARS-CoV-2, RNA, NAAT NEGATIVE (NEGATIVE) 07/25/22 16:44 Impressions Chest X-Ray 07/25/22 13:25 FINDINGS: No pneumothorax. No pleural effusions. There is mild elevation the right hemidiaphragm, unchanged. The lungs are essentially clear. No evidence for pulmonary edema. A few small linear scarlike densities within the left lower lung zones remain unchanged. IMPRESSION: No acute process. Abdomen/Pelvis CT 07/25/22 13:36 IMPRESSION: 1. No definite bowel wall thickening or obstruction. 2. Normal appendix. 3. Bilateral nephrolithiasis. No ureteral stones. No hydronephrosis. 4. Colonic diverticulosis. No evidence for acute diverticulitis. 5. Left lower quadrant colostomy again noted. 6. Additional findings as described above. Resident Activity Tracking Resident Involvement: Resident Care Provided Care Provided: Adult Hospital Medicine (1) Barretts esophagus Glasgow's esophagus type: without dysplasia Qualified Code(s): K22.70 - Glasgow's esophagus without dysplasia
[2022-07-26] MEDS: ONDANSETRON INJ 2 MG/ML 2 ML VIAL IV PRN ×2 (08:56→18:15)
[2022-07-26] MEDS ORDERED: LIDOCAINE VISCOUS 2% 15 ML UDC MT ONE (09:06)
[2022-07-26] MEDS ORDERED: ALUMINUM/MAGNESIUM SUSP 30 ML UDC PO STA (09:06)
[2022-07-26] MEDS ORDERED: FAMOTIDINE 10 MG TABLET PO ONE (09:30)
[2022-07-26] MEDS: MIDODRINE HCL 2.5 MG TAB PO SCH ×2 (09:53→15:48)
[2022-07-26] MEDS: PANTOprazole 40 MG TAB PO SCH (11:30)
[2022-07-26] MEDS: CYANOCOBALAMIN (B-12) 500 MCG TABLET PO SCH (11:30)
[2022-07-26] MEDS: HYDROXYCHLOROQUINE SULFATE 200 MG TAB PO SCH (11:31)
[2022-07-26] MEDS: ASPIRIN 81 MG ECTAB PO SCH (11:31)
[2022-07-26] MEDS: ASCORBIC ACID 500 MG TAB PO SCH (11:32)
[2022-07-26] MEDS: CHOLECALCIFEROL 1,000 UNITS 25 MCG TAB PO SCH (11:32)
[2022-07-26] MEDS: DULoxetine HCL 60 MG CAP PO SCH (11:33)
[2022-07-26] MEDS: DULoxetine HCL 30 MG CAP PO SCH (11:33)
[2022-07-26] MEDS: FEXOFENADINE 60 MG TAB PO SCH (11:34)
[2022-07-26] MEDS: VITAMIN B COMPLEX TAB PO SCH (11:34)
[2022-07-26] MEDS: predniSONE 10 MG TABLET PO SCH (11:34)
[2022-07-26] MEDS: GABAPENTIN 400 MG CAP PO SCH ×3 (11:35→20:15)
[2022-07-26] MEDS: ATORVASTATIN 40 MG TAB PO SCH (12:35)
--- NOTE | 2022-07-26 13:47 | Electrocardiogram Report ---
Test Reason : Blood Pressure : / mmHG Vent. Rate : 104 BPM Atrial Rate : 104 BPM P-R Int : 142 ms QRS Dur : 112 ms QT Int : 354 ms P-R-T Axes : 044 077 018 degrees QTc Int : 465 ms Sinus tachycardia Low voltage QRS Incomplete right bundle branch block Nonspecific T wave abnormality Inferior leads Borderline ECG When compared with ECG of 25-JUL-2022 13:43, No significant change Confirmed by Harish Schrader ([id number]) on 07/26/2022 1:47:29 PM Referred By: REFERRED SELF Confirmed By:Harish Schrader
[2022-07-26] MEDS: FLUCONAZOLE 100 MG TAB PO SCH (15:46)
--- NOTE | 2022-07-26 16:02 | Billing Data ---
Date of Service July 26, 2022 Coding Level of Care Code 45326 Subseq Hosp Care Lvl 3
[2022-07-26] MEDS: ERTAPENEM SODIUM 1,000 MG in SYRINGE 0 ML IV SCH (17:08)
[2022-07-26] MEDS: FAMOTIDINE 40 MG TABLET PO SCH (20:15)
[2022-07-26] MEDS: CEROVITE ADV FORMULA TAB PO SCH (20:15)
[2022-07-26] MEDS: QUEtiapine FUMARATE 25 MG TABLET PO SCH (20:15)
[2022-07-26] MEDS: ENOXAPARIN INJ 40 MG/0.4 ML SYR SQ SCH (20:16)
[2022-07-27] MEDS: LEVOTHYROXINE SODIUM 88 MCG TABLET PO SCH (05:39)
[2022-07-27 06:31] LABS: Hematocrit (blood only) 35.7 % (34.1-44.9); Hemoglobin 11.4 g/dl (12.0-16.0); Mean Corpuscular Hemoglobin 31.5 pg (25.0-34.0); Mean Corpuscular Hgb Conc 31.9 g/dL (32.0-36.0); Mean Corpuscular Volume 98.6 fL (80.0-100.0); Mean Platelet Volume 10.8 fL (9.4-12.3); Platelet Count 195 K/uL (130-400); RDW Coefficient of Variation 12.8 % (11.5-14.5); RDW Standard Deviation 46.6 fL (36.4-46.3); Red Blood Count 3.62 M/uL (3.93-5.22); White Blood Count 9.55 K/ul (4.8-10.8)
--- NOTE | 2022-07-27 06:48 | Hospitalist Progress Note ---
Date of Service July 27, 2022 Assessment & Plan (1) Decreased oral intake: Plan Sheridan is an 89 year old female with past medical history of recurrent UTI (prior Klebsiella), CKD3, CAD, RA, hypothyroidism, and diastolic heart failure who presented from [facility] with her daughter for confusion, weakness, and dysuria. She received IVF in the ED and was started on Ertapenem d/t hx of Klebsiella UTI, she was subsequently admitted for further management. Metabolic encephalopathy - resolved - unclear etiology - ? sec to poor PO intake. Decreased Oral intake - Pt w/ hx of recurrent UTI (hx of Klebsiella UTI) presenting with typical presentation for patient (dysuria, weakness, confusion) - Leukocytosis (14), tachycardia (114), and urinalysis with 2+ leuk esterase and >30 WBC (no bacteria or nitrite) noted on admission - Was started on Ertapenem given hx of Klebsiella - Urine culture shows yeast. Outpatient urine cx neg as well - will d/c ertapenem. - No clear etiology for poor oral intake. now tolerating PO well. Chest Pain - GI (resolved) - Associated with epigastric discomfort, nausea, thoracic back pain, and discomfort in L Arm - Ongoing hx of reflux/Glasgow's esophagus, chronically on PPI and Pepcid - EKG performed 0900 07/26, unchanged from 07/25, no evidence of ST elevation, ST depression, or T wave inversion, ongoing tachycardia - BP stable, Mild elevation of Troponin (124.6), trended x1 and no significant change. - Gave Zofran with improvement. Give Rx GI Cocktail (Pepcid, 15 mL Maalox, 15 mL viscous Lidocaine), symptomatic improvement on 07/26. - No chest pain was reported today. Hypoxia (resolved) - Mild increase in O2 requirement, patient stable on room air outpatient - Subjective shortness of breath, lungs CTAB, breathing non-labored - Currently on room air and 90% O2. Elevated Troponin (Established 07/26) - Troponin found to be mildly elevated to (124.6) during episode of chest pain w/ epigastric discomfort - Pt has hx of troponin elevations in 2018 and 2019 - Previous Echo (2019) indicated diastolic HF, EF 60-65%, no wall motion abnormalities - Troponin trending was negative for anything acute. CKD3 - Renal function at patient baseline - Avoiding nephrotoxic agents and renal dosing medications Chronic diastolic heart failure: - Echo 2019: EF 60-65%, mild LVH, grade 1 diastolic dysfunction - Euvolemia Rheumatoid arthritis: - Continue hydroxychloroquine, prednisone. Depression: - Continue Cymbalta, quetiapine at night. Hypothyroidism: - Continue Synthroid. Hyperlipidemia: - Continue atorvastatin. POTS (postural orthostatic tachycardia syndrome): - Continue midodrine 5 mg twice daily. Chronic back pain: - Continue oxycodone 5 mg TID, gabapentin 400 mg TID - Continue lidocaine patches Barretts esophagus: - Continue PPI, Pepcid. Diet:Regular DVT PPx: SCD/Lovenox Dispo:Med/Surg - PT/OT consulted and PT recommends return to [facility] and continue PT. - Plan to return to [facility], talked with case management and will most likely be able to go back tomorrow. Code Status: DNR/DNI Admission and Anticipated Discharge Date Admission Date: July 25, 2022 Supervising Physician Co-Signing Physician Notes Resident Physician Supervision Note: I independently interviewed and examined the patient and verified the amaro history and physical, reviewed labs and image studies and agree with resident findings and care plan. Subjective Patient was seen bedside this AM. She has no issues or complaints today. She states that she is feeling better since she first was admitted to the hospital, though she has trouble remembering much of what has been happening the past couple of day. Review of Systems Review of Systems: All systems reviewed & are unremarkable except as noted in HPI & below Constitutional: denies fever, chills, fatigue HEENT: denies congestion, sore throat CV: denies chest pain, palpitations Resp: denies shortness of breath, cough GI: denies abdominal pain, nausea, vomiting, constipation, diarrhea : denies pain with urination, change in urinary frequency Neuro: denies new numbness, tingling, weakness Physical Exam Physical Exam: Constitutional: well-appearing, no acute distress HEENT: NCAT, no conjunctival injection CV: regular rhythm, no murmur appreciated, extremities well-perfused, no LE shantel a Resp: CTABL, no wheezes/rales/rhonchi appreciated, no increased work of breathing GI: soft, nondistended, nontender, BS normoactive MSK: no gross deformities appreciated Skin: warm, dry, no rash appreciated Neuro: alert, oriented, no focal neurologic deficit appreciated Results & Data Results & Data ([facility]) Vital Signs (Past 12 Hours) Vital Signs Temp Pulse Resp BP Pulse Ox O2 Del Method 07/27/22 05:55 63 120/63 92 Room Air 07/27/22 02:49 91 Room Air 07/26/22 23:30 86 L Room Air 07/26/22 22:46 92 Room Air 07/26/22 22:16 37.4 C 104 H 18 116/67 96 Room Air 07/26/22 20:10 Room Air Resident Activity Tracking Resident Involvement: Resident Care Provided Care Provided: Adult Hospital Medicine
[2022-07-27 06:57] LABS: Albumin Globulin Ratio 1.3 (0.9-2); Albumin Level 3.1 gm/dl (3.4-5.0); BUN Creatinine Ratio 16.4 (10-20); Bilirubin,Total 0.4 mg/dl (0.2-1.0); Calcium 8.6 mg/dl (8.5-10.1); Creatinine Clr Calc Pharmacy 28.5 ml/min; Est GFR (African American) 48.3 ml/min; Est GFR (Non-African American) 41.7 ml/min; Globulin 2.4 gm/dl (2.5-4.0); Potassium 3.8 mmol/L (3.5-5.1); Total Protein 5.5 gm/dl (6.0-8.3)
--- NOTE | 2022-07-27 08:14 | Electrocardiogram Report ---
Test Reason : Blood Pressure : / mmHG Vent. Rate : 099 BPM Atrial Rate : 099 BPM P-R Int : 146 ms QRS Dur : 118 ms QT Int : 366 ms P-R-T Axes : 060 087 022 degrees QTc Int : 469 ms Normal sinus rhythm Incomplete right bundle branch block Borderline ECG When compared with ECG of 26-JUL-2022 08:50, No significant change was found Confirmed by Harish Schrader ([id number]) on 07/27/2022 8:14:00 AM Referred By: REFERRED SELF Confirmed By:Harish Schrader
[2022-07-27] MEDS: HYDROXYCHLOROQUINE SULFATE 200 MG TAB PO SCH (09:20)
[2022-07-27] MEDS: MIDODRINE HCL 2.5 MG TAB PO SCH ×2 (09:21→15:47)
[2022-07-27] MEDS: ASCORBIC ACID 500 MG TAB PO SCH (09:22)
[2022-07-27] MEDS: ASPIRIN 81 MG ECTAB PO SCH (09:22)
[2022-07-27] MEDS: CHOLECALCIFEROL 1,000 UNITS 25 MCG TAB PO SCH (09:22)
[2022-07-27] MEDS: DULoxetine HCL 30 MG CAP PO SCH (09:23)
[2022-07-27] MEDS: DULoxetine HCL 60 MG CAP PO SCH (09:23)
[2022-07-27] MEDS: CYANOCOBALAMIN (B-12) 500 MCG TABLET PO SCH (09:23)
[2022-07-27] MEDS: FLUCONAZOLE 100 MG TAB PO SCH (09:24)
[2022-07-27] MEDS: FEXOFENADINE 60 MG TAB PO SCH (09:24)
[2022-07-27] MEDS: GABAPENTIN 400 MG CAP PO SCH ×3 (09:24→19:54)
[2022-07-27] MEDS: VITAMIN B COMPLEX TAB PO SCH (09:25)
[2022-07-27] MEDS: PANTOprazole 40 MG TAB PO SCH (09:25)
[2022-07-27] MEDS: predniSONE 10 MG TABLET PO SCH (09:25)
[2022-07-27] MEDS: ATORVASTATIN 40 MG TAB PO SCH (12:28)
--- NOTE | 2022-07-27 15:01 | Discharge Summary ---
Date of Service July 27, 2022 Admission HPI Per Admitting Provider Sheridan Neal is an 89-year-old female with past medical history of recurrent UTIs, CAD, CKD, hypothyroidism, rheumatoid arthritis, and diastolic heart failure who presents today from [facility]. Per cotiusnw-er-dwn, who is at bedside, patient has been generally more weak and confused. She also complained of burning after urinating over the past few days. Patient does have a history of frequent UTIs, the past she has grown out Klebsiella with multiple resistance patterns. She was started on Augmentin as an outpatient yesterday for UTI. At the bedside, patient complains of her chronic low back pain and left lower quadrant pain, as well as being very cold. She is alert and oriented. Upon arrival to the ED, she was slightly hypoxic with SpO2 87% on RA, transitioned to 2 L NC. She has been mildly hypertensive and tachycardic with HR 100-110. Afebrile. Labs significant for WBC 14 with left shift, UA contaminated with > 30 epi cells, with 2+ leuk esterase and > 30 WBCs and budding yeast. A CX R is unremarkable. 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 No obstructing renal stones, diverticulitis, or bowel wall thickening/obstruction. Admission Exam Per Admitting Provider General: awake, alert, no apparent distress Head: Normocephalic, atraumatic ENT: PERRL, EOMI, no pharyngeal exudate, mucous membranes moist Chest: Clear to auscultation, on room air, no adventitious breath sounds Cardiac: Regular rate and rhythm, no murmur, no JVD, normal peripheral pulses, good capillary refill Abdominal: very TTP in RLQ; NABS x 4 quadrants, soft, nontender to palpation, no rebound, guarding or tenderness Extremities: Normal inspection, no peripheral edema or erythema, calfs nontender to palpation Psych: Normal mood and affect Neuro: AAO x 3, strength intact bilaterally and rated 5/5, no motor deficits, speech is clear, no peripheral sensory deficits Skin: no rash or erythema Principal Diagnosis Poor oral intake Discharge Exam Constitutional WD/WN, vitals as above Eyes PERRL, conjunctivae normal, anicteric sclerae ENMT external ear and nose normal, oropharynx normal Respiratory normal respiratory effort, lungs clear to auscultation Cardiovascular RRR, no murmur, no edema Gastrointestinal (Abdomen) normal bowel sounds, soft, nontender, no hepatosplenomegaly Musculoskeletal no cyanosis or clubbing, extremities motor strength 5/5 Skin no rashes, warm and dry Discharge Data Allergies Allergy/AdvReac Type Severity Reaction Status Date / Time nitrofurantoin Allergy Severe HIVES Verified 04/29/22 12:33 scallops Allergy Severe THROAT Verified 04/29/22 12:33 SWELLS ciprofloxacin Allergy Intermediate HIVES Verified 04/29/22 12:33 latex Allergy Intermediate RASH Verified 04/29/22 12:33 Quinolones Allergy Intermediate HIVES Verified 04/29/22 12:33 fluticasone Allergy Unknown ADVAIR-UNKN Verified 04/29/22 12:33 OWN salmeterol Allergy Unknown ADVAIR Verified 04/29/22 12:33 celecoxib AdvReac Intermediate barretts Verified 04/29/22 12:33 esophagus lactose AdvReac Intermediate GI UPSET Verified 04/29/22 12:33 morphine AdvReac Intermediate NAUSEA AND Verified 04/29/22 12:33 VOMITING Ordered Studies 07/25/22 13:36 CT abd pelvis wo con Stat Hospital Course Plan Sheridan is an 89 year old female with past medical history of recurrent UTI (prior Klebsiella), CKD3, CAD, RA, hypothyroidism, and diastolic heart failure who presented from [facility] with her daughter for confusion, weakness, and dysuria. She received IVF in the ED and was started on Ertapenem d/t hx of Klebsiella UTI, she was subsequently admitted for further management. UTI - Pt w/ hx of recurrent UTI (hx of Klebsiella UTI) presenting with typical presentation for patient (dysuria, weakness, confusion) - Leukocytosis (14), tachycardia (114), and urinalysis with 2+ leuk esterase and >30 WBC (no bacteria or nitrite) noted on admission - Was started on Ertapenem given hx of Klebsiella --- Continue Ertapenem --- Urine culture pending --- PT/OT eval pending given weakness on presentation Chest Pain (Acute 07/26) likely 2/2 GI Source - Associated with epigastric discomfort, nausea, thoracic back pain, and discomfort in L Arm - Ongoing hx of reflux/Glasgow's esophagus, chronically on PPI and Pepcid - EKG performed 0900 07/26, unchanged from 07/25, no evidence of ST elevation, ST depression, or T wave inversion, ongoing tachycardia - Gave Zofran in room, resolved chest discomfort, ongoing epigastric pain --- Elevation of BP (156/67) trending down --- Mild elevation of Troponin (124.6), will trend --- Rx GI Cocktail (Pepcid, 15 mL Maalox, 15 mL viscous Lidocaine), symptomatic improvement noted @ 1100 Supplemental O2 Requirement (Acute 07/25) - Mild increase in O2 requirement, patient stable on room air outpatient - Attempts to wean unsuccessful - Subjective shortness of breath, lungs CTAB, breathing non-labored --- Continue O2 supplementation --- Following Elevated Troponin (Established 07/26) - Troponin found to be mildly elevated to (124.6) during episode of chest pain w/ epigastric discomfort - Pt has hx of troponin elevations in 2018 and 2019 - Previous Echo (2019) indicated diastolic HF, EF 60-65%, no wall motion abnormalities --- Will trend troponin q3h x 3 --- If troponin rising (> 500) will plan Echo CKD3 - Renal function at patient baseline - Hypovolemic on presentation, given LR @ 80 cc/hr x 1 L, following fluid status - Avoiding nephrotoxic agents and renal dosing medications ---Following volume status, 07/26 BMP unremarkable Chronic diastolic heart failure: - Echo 2019: EF 60-65%, mild LVH, grade 1 diastolic dysfunction - Appears hypovolemic, gentle IVF given ---Following volume status, 07/26 BMP unremarkable Rheumatoid arthritis: - Continue hydroxychloroquine, prednisone. Depression: - Continue Cymbalta, quetiapine at night. Hypothyroidism: - Continue Synthroid. Hyperlipidemia: - Continue atorvastatin. POTS (postural orthostatic tachycardia syndrome): - Continue midodrine 5 mg twice daily. Chronic back pain: - Continue oxycodone 5 mg TID, gabapentin 400 mg TID - Continue lidocaine patches Barretts esophagus: - Continue PPI, Pepcid. Diet:Regular IVF: LR 80cc/hr x 1 L DVT PPx: SCD/Lovenox Dispo:Med/Surg Code Status: DNR/DNI Discharge Plan Discharge Items Patient Disposition: Transfer Assisted Fac Reason For Visit: UTI Discharge Diagnosis: poor oral intake Activity: Per Instructions section Non-emergency contact: Primary Care Provider Call non-emergency contact if: your pain is worsening, your pain is unusual for you and your temperature is above 101.5 Follow-up/Referrals: Gaby Cristobal [place] [Primary Care Provider] - Diet: Regular Addtl Attending Provider Instructions: You were admitted to the hospital for poor oral intake with possible UTI. You were treated with antibiotics for your susceptible UTI and cultures were review from A discharge summary will be sent to your primary care physician to ensure continuity of care. Please bring this discharge summary with you to your next office appointment so that your provider can review it at that time. Follow-up appointments: [ Make a follow-up appointment with your PCP within the next week. It is very important that you follow up with them shortly after discharge from the hospital.] [ We have requested a follow-up appointment with your primary care physician within one week of discharge. Please call their office if you do not hear from them.] [ You have an appointment with _ on _ at _. If you are unable to make this appointment, or have any other questions, their office can be reached at _.] Keep all your follow-up appointments as already scheduled. If you cannot make an appointment, notify your provider. Medications: Your medication list has been reviewed and reconciled upon discharge to ensure accuracy and continuity of care. An updated list of all your medications is included with your hospital discharge paperwork. Please review this list closely, and make note of any changes. We sent a new medication called [med name] to your pharmacy. Take [med name] ([dose]mg) [number of tablets] [frequency] [for _ days]. COPY AND PASTE THIS LINE FOR EACH NEW DC MED If you have any issues filling these prescriptions, please call [phone] and ask to leave a message for Dr. Camacho. Take your medications as instructed; do not skip a dose of your medicines. Make sure all of your doctors know every medicine you are taking (including qriu-tin-lfvbyun medicines, vitamins, and supplements). Call your primary care provider before taking any new medicines (including over- the- counter medicines, vitamins, and supplements), because some of these may interact with your current medications, or may make your symptoms worse. Tell your primary care provider if you cannot afford your medications. CONTACT YOUR PRIMARY CARE PROVIDER if you experience any of the following: [_] Difficulty following your treatment plan, or difficulty taking medications CALL 911 OR GO TO THE EMERGENCY DEPARTMENT if you experience any of the following: Sudden, severe abdominal pain or nausea/vomiting Severe chest pain, or chest pain that radiates (moves) to your jaw or arm Sudden, severe shortness of breath or difficulty breathing Thank you for allowing us to participate in your care. Stand-Alone Forms: My [facility], Smoking Cessation Medications and DC Order Prescriptions: No Action oxycodone 5 mg tablet 5 mg PO TID Ocuvite with Lutein 1,000 unit-200 mg-60 unit-2 mg Tablet 1 tab PO HS vitamin B complex Tablet 1 tab PO QAM gabapentin 400 mg Capsule 400 mg PO TID atorvastatin 40 mg Tablet 40 mg PO QDL Qty: 30 0RF fexofenadine 60 mg Tablet 60 mg PO QAM Qty: 30 0RF hydroxychloroquine 200 mg Tablet 200 mg PO DAILY@0800 Qty: 30 0RF nitroglycerin 0.4 mg tablet, sublingual 0.4 mg sublingual Q5M PRN (Reason: chest pain) Qty: 7 0RF diclofenac sodium [Voltaren Arthritis Pain] 1 % gel 4 g topical QID PRN (Reason: Arthritis pain) Qty: 100 0RF Rx Instructions: apply to single knee, ankle, foot; for foot includes sole/toes/top of foot duloxetine 30 mg Capsule,Delayed Release(Dr/Ec) 30 mg PO QAM Qty: 30 0RF duloxetine 60 mg Capsule,Delayed Release(Dr/Ec) 60 mg PO QAM Qty: 30 0RF fluticasone propionate 50 mcg/actuation [place],Suspension 2 spray intranasal QAM PRN (Reason: allergy symptoms) Qty: 16 0RF polyethylene glycol 3350 [Miralax] 17 gram Powder In Packet 17 g PO QAM PRN (Reason: constipation) Qty: 14 0RF famotidine 40 mg Tablet 40 mg PO HS Qty: 30 0RF cholecalciferol (vitamin D3) 25 mcg (1,000 unit) Capsule 2,000 unit PO QAM Qty: 30 0RF prednisone 10 mg Tablet 10 mg PO QAM Qty: 30 0RF levothyroxine [Synthroid] 88 mcg Tablet 88 mcg PO DAILYBB Qty: 30 0RF cyanocobalamin (vitamin B-12) 500 mcg Tablet 1,000 mcg PO QAM Qty: 60 0RF aspirin [Alix Low Dose Aspirin] 81 mg Tablet,Delayed Release (Dr/Ec) 81 mg PO QAM ascorbic acid (vitamin C) [Vitamin C] 500 mg Tablet 500 mg PO QAM midodrine 5 mg Tablet 5 mg PO BID methenamine hippurate [Hiprex] 1 gram Tablet 1 g PO BID Premarin 0.625 mg/gram Cream 0.625 mg VAGINAL 2XWK Label Comments: on wed/ docusate sodium 100 mg Tablet 100 mg PO DAILY PRN (Reason: Constipation) quetiapine 100 mg tablet 50 mg PO HS ondansetron 8 mg tablet,disintegrating 8 mg PO Q6 PRN (Reason: nausea and vomiting) lidocaine 5 % adhesive patch,medicated 1 patch transdermal DAILY PRN (Reason: Pain) dexlansoprazole [Dexilant] 60 mg capsule,biphase delayed releas 60 mg PO QAM mirabegron 50 mg tablet extended release 24 hr 50 mg PO QAM methyl salicylate-menthol 15-10 % Cream 1 applic TOPICAL QID PRN (Reason: Pain) Admission Data Admit Date/Time: 07/25/22 15:46 Attending Provider: Agnieszka Srinivasan Admit Provider: Teddy Morris Primary Care Provider: Gaby Cristobal [facility] Other Providers: Teddy Morris ; Gaby Cristobal [facility] ; Francisco Javier Ramirez
[2022-07-27] MEDS: ERTAPENEM SODIUM 1,000 MG in SYRINGE 0 ML IV SCH (16:59)
[2022-07-27] MEDS: CEROVITE ADV FORMULA TAB PO SCH (19:52)
[2022-07-27] MEDS: FAMOTIDINE 40 MG TABLET PO SCH (19:53)
[2022-07-27] MEDS: QUEtiapine FUMARATE 25 MG TABLET PO SCH (19:55)
[2022-07-27] MEDS ORDERED: ENOXAPARIN INJ 30 MG/0.3 ML SYR SQ SCH (20:00)
[2022-07-27] MEDS ORDERED: PREMARIN VAG CRM 14 APPLN/30 GM TUBE PV SCH (21:00)
[2022-07-28] MEDS: LEVOTHYROXINE SODIUM 88 MCG TABLET PO SCH (06:14)
[2022-07-28 06:41] LABS: Basophils # (auto) 0.05 K/uL (0-0.2); Basophils % (auto) 0.6 %; Eosinophils # (auto) 0.96 K/uL (0-0.50); Hematocrit (blood only) 34.4 % (34.1-44.9); Hemoglobin 11.3 g/dl (12.0-16.0); Immature Granulocytes # (auto) 0.04 K/uL (0.00-0.02); Immature Granulocytes % (auto) 0.5 %; Lymphocytes # (auto) 1.47 K/uL (1.2-3.4); Lymphocytes % (auto) 18.4 %; Mean Corpuscular Hgb Conc 32.8 g/dL (32.0-36.0); Mean Corpuscular Volume 97.5 fL (80.0-100.0); Mean Platelet Volume 10.1 fL (9.4-12.3); Monocytes # (auto) 1.26 K/uL (0.24-0.82); Monocytes % (auto) 15.8 %; Neutrophils # (auto) 4.22 K/uL (1.4-6.5); Neutrophils % (auto) 52.7 %; Platelet Count 209 K/uL (130-400); RDW Coefficient of Variation 12.7 % (11.5-14.5); RDW Standard Deviation 45.4 fL (36.4-46.3); Red Blood Count 3.53 M/uL (3.93-5.22)
[2022-07-28 07:11] LABS: Calcium 8.5 mg/dl (8.5-10.1); Creatinine Clr Calc Pharmacy 27.8 ml/min; Est GFR (African American) 46.9 ml/min; Est GFR (Non-African American) 40.4 ml/min; Potassium 3.6 mmol/L (3.5-5.1)
--- NOTE | 2022-07-28 07:32 | Hospitalist Progress Note ---
Date of Service July 28, 2022 Assessment & Plan (1) Decreased oral intake: Plan XXXX Prelim note XXX Sheridan is an 89 year old female with past medical history of recurrent UTI (prior Klebsiella), CKD3, CAD, RA, hypothyroidism, and diastolic heart failure who presented from [facility] with her daughter for confusion, weakness, and dysuria. She received IVF in the ED and was started on Ertapenem d/t hx of Klebsiella UTI, she was subsequently admitted for further management. Metabolic encephalopathy - resolved - unclear etiology - ? sec to poor PO intake. Decreased Oral intake - Pt w/ hx of recurrent UTI (hx of Klebsiella UTI) presenting with typical presentation for patient (dysuria, weakness, confusion) - Leukocytosis (14), tachycardia (114), and urinalysis with 2+ leuk esterase and >30 WBC (no bacteria or nitrite) noted on admission - Was started on Ertapenem given hx of Klebsiella - Urine culture shows yeast. Outpatient urine cx neg as well - will d/c ertapenem. - No clear etiology for poor oral intake. now tolerating PO well. Chest Pain - GI (resolved) - Associated with epigastric discomfort, nausea, thoracic back pain, and discomfort in L Arm - Ongoing hx of reflux/Glasgow's esophagus, chronically on PPI and Pepcid - EKG performed 0900 07/26, unchanged from 07/25, no evidence of ST elevation, ST depression, or T wave inversion, ongoing tachycardia - BP stable, Mild elevation of Troponin (124.6), trended x1 and no significant change. - Gave Zofran with improvement. Give Rx GI Cocktail (Pepcid, 15 mL Maalox, 15 mL viscous Lidocaine), symptomatic improvement on 07/26. - No chest pain was reported today. Hypoxia (resolved) - Mild increase in O2 requirement, patient stable on room air outpatient - Subjective shortness of breath, lungs CTAB, breathing non-labored - Currently on room air and 90% O2. Elevated Troponin (Established 07/26) - Troponin found to be mildly elevated to (124.6) during episode of chest pain w/ epigastric discomfort - Pt has hx of troponin elevations in 2018 and 2019 - Previous Echo (2019) indicated diastolic HF, EF 60-65%, no wall motion abnormalities - Troponin trending was negative for anything acute. CKD3 - Renal function at patient baseline - Avoiding nephrotoxic agents and renal dosing medications Chronic diastolic heart failure: - Echo 2019: EF 60-65%, mild LVH, grade 1 diastolic dysfunction - Euvolemia Rheumatoid arthritis: - Continue hydroxychloroquine, prednisone. Depression: - Continue Cymbalta, quetiapine at night. Hypothyroidism: - Continue Synthroid. Hyperlipidemia: - Continue atorvastatin. POTS (postural orthostatic tachycardia syndrome): - Continue midodrine 5 mg twice daily. Chronic back pain: - Continue oxycodone 5 mg TID, gabapentin 400 mg TID - Continue lidocaine patches Barretts esophagus: - Continue PPI, Pepcid. Diet:Regular DVT PPx: SCD/Lovenox Dispo:Med/Surg - PT/OT consulted and PT recommends return to [facility] and continue PT. - Plan to return to [facility], talked with case management and will most likely be able to go back tomorrow. Code Status: DNR/DNI Admission and Anticipated Discharge Date Admission Date: July 25, 2022 Results & Data Results & Data ([facility]) Vital Signs (Past 12 Hours) Vital Signs Temp Pulse Resp BP Pulse Ox O2 Del Method O2 Flow Rate 07/28/22 07:05 36.3 C L 96 H 16 136/70 91 Nasal Cannula 2 07/27/22 20:00 Room Air 07/27/22 21:23 36.8 C 95 H 16 130/68 95 Room Air
[2022-07-28] MEDS: ASPIRIN 81 MG ECTAB PO SCH (08:27)
[2022-07-28] MEDS: CHOLECALCIFEROL 1,000 UNITS 25 MCG TAB PO SCH (08:28)
[2022-07-28] MEDS: HYDROXYCHLOROQUINE SULFATE 200 MG TAB PO SCH (08:28)
[2022-07-28] MEDS: PANTOprazole 40 MG TAB PO SCH (08:29)
[2022-07-28] MEDS: VITAMIN B COMPLEX TAB PO SCH (08:29)
[2022-07-28] MEDS: DULoxetine HCL 60 MG CAP PO SCH (08:29)
[2022-07-28] MEDS: ASCORBIC ACID 500 MG TAB PO SCH (08:30)
[2022-07-28] MEDS: CYANOCOBALAMIN (B-12) 500 MCG TABLET PO SCH (08:31)
[2022-07-28] MEDS: DULoxetine HCL 30 MG CAP PO SCH (08:31)
[2022-07-28] MEDS: MIDODRINE HCL 2.5 MG TAB PO SCH (08:32)
[2022-07-28] MEDS: GABAPENTIN 400 MG CAP PO SCH (08:33)
[2022-07-28] MEDS: predniSONE 10 MG TABLET PO SCH (08:33)
[2022-07-28] MEDS ORDERED: MIRABEGRON ER 25 MG TAB PO SCH (09:00)
--- NOTE | 2022-07-28 09:07 | Electrocardiogram Report ---
Test Reason : Blood Pressure : / mmHG Vent. Rate : 097 BPM Atrial Rate : 097 BPM P-R Int : 148 ms QRS Dur : 120 ms QT Int : 360 ms P-R-T Axes : 040 052 -02 degrees QTc Int : 457 ms Normal sinus rhythm Low voltage QRS Right bundle branch block Minor Nonspecific T wave abnormality Anterior leads Abnormal ECG When compared with ECG of 27-JUL-2022 05:47, Nonspecific T wave abnormality, worse in Anterior leads Confirmed by Harish Schrader ([id number]) on 07/28/2022 9:06:24 AM Referred By: REFERRED SELF Confirmed By:Harish Schrader
--- NOTE | 2022-07-28 10:31 | Discharge Summary ---
Date of Service July 28, 2022 Admission HPI Per Admitting Provider Sheridan Neal is an 89-year-old female with past medical history of recurrent UTIs, CAD, CKD, hypothyroidism, rheumatoid arthritis, and diastolic heart failure who presents today from [facility]. Per [id number], who is at bedside, patient has been generally more weak and confused. She also complained of burning after urinating over the past few days. Patient does have a history of frequent UTIs, the past she has grown out Klebsiella with multiple resistance patterns. She was started on Augmentin as an outpatient yesterday for UTI. At the bedside, patient complains of her chronic low back pain and left lower quadrant pain, as well as being very cold. She is alert and oriented. Upon arrival to the ED, she was slightly hypoxic with SpO2 87% on RA, transitioned to 2 L NC. She has been mildly hypertensive and tachycardic with HR 100-110. Afebrile. Labs significant for WBC 14 with left shift, UA contaminated with > 30 epi cells, with 2+ leuk esterase and > 30 WBCs and budding yeast. A CX R is unremarkable. 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 No obstructing renal stones, diverticulitis, or bowel wall thickening/obstruction. Admission Exam Per Admitting Provider General: awake, alert, no apparent distress Head: Normocephalic, atraumatic ENT: PERRL, EOMI, no pharyngeal exudate, mucous membranes moist Chest: Clear to auscultation, on room air, no adventitious breath sounds Cardiac: Regular rate and rhythm, no murmur, no JVD, normal peripheral pulses, good capillary refill Abdominal: very TTP in RLQ; NABS x 4 quadrants, soft, nontender to palpation, no rebound, guarding or tenderness Extremities: Normal inspection, no peripheral edema or erythema, calfs nontender to palpation Psych: Normal mood and affect Neuro: AAO x 3, strength intact bilaterally and rated 5/5, no motor deficits, speech is clear, no peripheral sensory deficits Skin: no rash or erythema Principal Diagnosis Acute Metabolic Encephalopathy Discharge Exam Constitutional: well-appearing, no acute distress HEENT: NCAT, no conjunctival injection CV: regular rhythm, no murmur appreciated, extremities well-perfused, no LE edema Resp: CTABL, no wheezes/rales/rhonchi appreciated, no increased work of breathing GI: soft, nondistended, nontender, BS normoactive MSK: no gross deformities appreciated Skin: warm, dry, no rash appreciated Neuro: alert, oriented, no focal neurologic deficit appreciated Discharge Data Allergies Allergy/AdvReac Type Severity Reaction Status Date / Time nitrofurantoin Allergy Severe HIVES Verified 04/29/22 12:33 scallops Allergy Severe THROAT Verified 04/29/22 12:33 SWELLS ciprofloxacin Allergy Intermediate HIVES Verified 04/29/22 12:33 latex Allergy Intermediate RASH Verified 04/29/22 12:33 Quinolones Allergy Intermediate HIVES Verified 04/29/22 12:33 fluticasone Allergy Unknown ADVAIR-UNKN Verified 04/29/22 12:33 OWN salmeterol Allergy Unknown ADVAIR Verified 04/29/22 12:33 celecoxib AdvReac Intermediate barretts Verified 04/29/22 12:33 esophagus lactose AdvReac Intermediate GI UPSET Verified 04/29/22 12:33 morphine AdvReac Intermediate NAUSEA AND Verified 04/29/22 12:33 VOMITING Consultations none Procedures Performed Chest X-Ray 07/25/22 13:25 XR chest 1V portable HISTORY: weakness COMPARISON: Chest 05/13/2021. FINDINGS: No pneumothorax. No pleural effusions. There is mild elevation the right hemidiaphragm, unchanged. The lungs are essentially clear. No evidence for pulmonary edema. A few small linear scarlike densities within the left lower lung zones remain unchanged. IMPRESSION: No acute process. ACT 112: Negative or not required by law. Electronically signed by: Osbaldo Washington M.D. 07/25/2022 1:54 PM Abdomen/Pelvis CT 07/25/22 13:[address] WITHOUT CONTRAST CT DOSE: 327.90 mGy.cm HISTORY: Right lower quadrant abdominal pain. TECHNIQUE: Multiaxial CT images of the abdomen and pelvis were performed without contrast. A dose lowering technique was utilized adhering to the principles of ALARA. COMPARISON STUDY: Abdomen and pelvis CTA 321. FINDINGS: Bibasilar interstitial thickening and mild dependent changes are noted at the lung bases. No pneumoperitoneum. No pneumatosis. There are bilateral total hip arthroplasties. There are old, healed left-sided rib fractures. There is an old mild superior endplate compression fracture at L3. Mitral annulus calcifications are again noted. There is a left lower quadrant colostomy with a moderate size fat-containing parastomal hernia, unchanged. The bladder is not well assessed due to the metallic artifact but likely within normal limits. Prior hysterectomy. Suboptimal evaluation for bowel pathology due to the lack of intravenous and oral contrast. However, there is no definite bowel wall thickening or obstruction. Moderate well-formed stool within the colon. Colonic diverticulosis. No evidence for acute diverticulitis. Normal appendix. Calcified plaque within the normal caliber abdominal aorta. No retroperitoneal lymphadenopathy. Bilateral nephrolithiasis. No ureteral stones. No hyd ronephrosis. Cholecystectomy. The unenhanced liver, spleen, and adrenal glands are unremarkable. Partial fatty replacement of the pancreas, unchanged. IMPRESSION: 1. No definite bowel wall thickening or obstruction. 2. Normal appendix. 3. Bilateral nephrolithiasis. No ureteral stones. No hydronephrosis. 4. Colonic diverticulosis. No evidence for acute diverticulitis. 5. Left lower quadrant colostomy again noted. 6. Additional findings as described above. ACT 112: Negative or not required by law. Electronically signed by: Osbaldo Washington M.D. 07/25/2022 2:11 PM Ordered Studies 07/25/22 13:36 CT abd pelvis wo con Stat Hospital Course (1) Decreased oral intake: (2) Chronic back pain: (3) POTS (postural orthostatic tachycardia syndrome): (4) Hyperlipidemia: (5) Acute metabolic encephalopathy: Jose M Sheridan is an 89 year old female with past medical history of recurrent UTI (prior Klebsiella), CKD3, CAD, RA, hypothyroidism, and diastolic heart failure who presented from [facility] with her daughter for confusion, weakness, and dysuria. She received IVF in the ED and was started on Ertapenem d/t hx of Klebsiella UTI, she was subsequently admitted for further management. Metabolic encephalopathy - resolved - unclear etiology, most likely 2/2 poor PO intake. Decreased Oral intake - Pt w/ hx of recurrent UTI (hx of Klebsiella UTI) presenting with typical presentation for patient (dysuria, weakness, confusion) - Leukocytosis (14), tachycardia (114), and urinalysis with 2+ leuk esterase and >30 WBC (no bacteria or nitrite) noted on admission - Was started on Ertapenem given hx of Klebsiella - Urine culture shows yeast. Outpatient urine cx neg as well. Ertapenem was D/C'ed - Now tolerating PO well. Confusion, weakness, and dysuria improved. - Patient was on oxycodone 5mg TID for back pain. This was not continued while patient was admitted to the hospital. May have played a factor in patient having decreased oral intake. Advised that the patient not continue oxycodone while outpatient. - Monitor oral intake at home and f/u with PCP in one week. Chest Pain - GI (resolved) - Associated with epigastric discomfort, nausea, thoracic back pain, and discomfort in L Arm - Ongoing hx of reflux/Glasgow's esophagus, chronically on PPI and Pepcid - EKG performed 0900 07/26, unchanged from 07/25, no evidence of ST elevation, ST depression, or T wave inversion, ongoing tachycardia - BP stable, Mild elevation of Troponin (124.6), trended x1 and no significant change. - Gave Zofran with improvement. Give Rx GI Cocktail (Pepcid, 15 mL Maalox, 15 mL viscous Lidocaine), symptomatic improvement on 07/26. - No chest pain at time of discharge. Hypoxia (resolved) - Mild increase in O2 requirement, patient stable on room air outpatient - Subjective shortness of breath, lungs CTAB, breathing non-labored - Currently on room air and 96% O2. Elevated Troponin (Established 07/26) - Troponin found to be mildly elevated to (124.6) during episode of chest pain w/ epigastric discomfort - Pt has hx of troponin elevations in 2019 and 2019 - Previous Echo (2019) indicated diastolic HF, EF 60-65%, no wall motion abnormalities - Troponin trending was negative for anything acute. CKD3 - Renal function at patient baseline Chronic diastolic heart failure: - Echo 2019: EF 60-65%, mild LVH, grade 1 diastolic dysfunction - Euvolemia Rheumatoid arthritis: - Continue hydroxychloroquine, prednisone. Depression: - Continue Cymbalta, quetiapine at night. Hypothyroidism: - Continue Synthroid. Hyperlipidemia: - Continue atorvastatin. POTS (postural orthostatic tachycardia syndrome): - Continue midodrine 5 mg twice daily. Chronic back pain: - Stop oxycodone 5 mg TID, - Continue gabapentin 400 mg TID - Continue lidocaine patches - PT/OT consulted and PT recommends return to [facility] and continue PT. - Should f/u with PCP regarding continuing pain management given stopping patient's oxycodone. Total Time Total Time Spent Total Time Spent (In Minutes): 30 Total Time Includes: Examination of the Patient, Discharge Planning and Medication Reconciliation Discharge Plan Discharge Items Patient Disposition: Transfer [facility] Reason For Visit: UTI Discharge Diagnosis: Metabolic encephalopathy Activity: Per Instructions section Non-emergency contact: Primary Care Provider Call non-emergency contact if: your pain is worsening, your pain is unusual for you and your temperature is above 101.5 Follow-up/Referrals: Gaby Cristobal [place] [Primary Care Provider] - Diet: Regular Addtl Attending Provider Instructions: You were admitted to the hospital for altered mental status with poor oral intake and possible UTI. You were treated with antibiotics for your susceptible UTI and cultures were review from [facility] and at the hospital. UTI was determined not to be the cause of patient's AMS but rather due to decreased oral intake leading to a metabolic encephalopathy. The cause of your poor oral intake is unknown but you improved greatly with increasing your oral intake. A discharge summary will be sent to your primary care physician to ensure continuity of care. Please bring this discharge summary with you to your next office appointment so that your provider can review it at that time. Follow-up appointments: * Make a follow-up appointment with your PCP within the next week. It is very important that you follow up with them shortly after discharge from the hospital. * Keep all your follow-up appointments as already scheduled. If you cannot make an appointment, notify your provider. Medications: Your medication list has been reviewed and reconciled upon discharge to ensure accuracy and continuity of care. An updated list of all your medications is included with your hospital discharge paperwork. Please review this list closely, and make note of any changes. * No need medication was added at this time. CONTACT YOUR PRIMARY CARE PROVIDER if you experience any of the following: worsening alter mental status urinary symptoms Difficulty following your treatment plan, or difficulty taking medications CALL 911 OR GO TO THE EMERGENCY DEPARTMENT if you experience any of the following: Sudden, severe abdominal pain or nausea/vomiting Severe chest pain, or chest pain that radiates (moves) to your jaw or arm Sudden, severe shortness of breath or difficulty breathing Thank you for allowing us to participate in your care. Pending Studies at Discharge: No Stand-Alone Forms: My [employer], Smoking Cessation Skilled Items Patient informed of condition?: Yes DNR: Yes Discharge Level of Care: Skilled Communicable Disease: No Discharge Prognosis: Improving Lines: None Urinary Catheter: No Medications and DC Order Prescriptions: Continued Ocuvite with Lutein 1,000 unit-200 mg-60 unit-2 mg Tablet 1 tab PO HS vitamin B complex Tablet 1 tab PO QAM gabapentin 400 mg Capsule 400 mg PO TID atorvastatin 40 mg Tablet 40 mg PO QDL Qty: 30 0RF fexofenadine 60 mg Tablet 60 mg PO QAM Qty: 30 0RF hydroxychloroquine 200 mg Tablet 200 mg PO DAILY@0800 Qty: 30 0RF nitroglycerin 0.4 mg tablet, sublingual 0.4 mg sublingual Q5M PRN (Reason: chest pain) Qty: 7 0RF diclofenac sodium [Voltaren Arthritis Pain] 1 % gel 4 g topical QID PRN (Reason: Arthritis pain) Qty: 100 0RF Rx Instructions: apply to single knee, ankle, foot; for foot includes sole/toes/top of foot duloxetine 30 mg Capsule,Delayed Release(Dr/Ec) 30 mg PO QAM Qty: 30 0RF duloxetine 60 mg Capsule,Delayed Release(Dr/Ec) 60 mg PO QAM Qty: 30 0RF fluticasone propionate 50 mcg/actuation [place],Suspension 2 spray intranasal QAM PRN (Reason: allergy symptoms) Qty: 16 0RF polyethylene glycol 3350 [Miralax] 17 gram Powder In Packet 17 g PO QAM PRN (Reason: constipation) Qty: 14 0RF famotidine 40 mg Tablet 40 mg PO HS Qty: 30 0RF cholecalciferol (vitamin D3) 25 mcg (1,000 unit) Capsule 2,000 unit PO QAM Qty: 30 0RF prednisone 10 mg Tablet 10 mg PO QAM Qty: 30 0RF levothyroxine [Synthroid] 88 mcg Tablet 88 mcg PO DAILYBB Qty: 30 0RF cyanocobalamin (vitamin B-12) 500 mcg Tablet 1,000 mcg PO QAM Qty: 60 0RF aspirin [Alix Low Dose Aspirin] 81 mg Tablet,Delayed Release (Dr/Ec) 81 mg PO QAM ascorbic acid (vitamin C) [Vitamin C] 500 mg Tablet 500 mg PO QAM midodrine 5 mg Tablet 5 mg PO BID methenamine hippurate [Hiprex] 1 gram Tablet 1 g PO BID Premarin 0.625 mg/gram Cream 0.625 mg VAGINAL 2XWK Label Comments: on docusate sodium 100 mg Tablet 100 mg PO DAILY PRN (Reason: Constipation) quetiapine 100 mg tablet 50 mg PO HS ondansetron 8 mg tablet,disintegrating 8 mg PO Q6 PRN (Reason: nausea and vomiting) lidocaine 5 % adhesive patch,medicated 1 patch transdermal DAILY PRN (Reason: Pain) dexlansoprazole [Dexilant] 60 mg capsule,biphase delayed releas 60 mg PO QAM mirabegron 50 mg tablet extended release 24 hr 50 mg PO QAM methyl salicylate-menthol 15-10 % Cream 1 applic TOPICAL QID PRN (Reason: Pain) Discontinued oxycodone 5 mg tablet 5 mg PO TID Discharge Orders: Discharge Order (Routine); Ordered 07/28/22 Ordered By: Bennett Camacho Admission Data Admit Date/Time: 07/25/22 15:46 Attending Provider: Agnieszka Srinivasan Admit Provider: Teddy Morris Primary Care Provider: Gaby Cristobal [place] Other Providers: Teddy Morris ; Gaby Cristobal [facility] ; Francisco Javier Ramirez Other Interventions: Discharge Summary Assessment (RN) Last Done: 07/28/22 15:42 Supervising Physician Co-Signing Physician Notes Resident Physician Supervision Note: I independently interviewed and examined the patient and verified the amaro history and physical, reviewed labs and image studies and agree with resident findings and care plan. Resident Activity Tracking Resident Involvement: Resident Care Provided Care Provided: Adult Hospital Medicine
[2022-07-28] MEDS: FEXOFENADINE 60 MG TAB PO SCH (11:47)
[2022-07-28] MEDS: ATORVASTATIN 40 MG TAB PO SCH (11:47)
--- NOTE | 2022-08-04 16:43 | Coding Query ---
CODING QUERY To promote full compliance with coding requirements relating to patient care, provider participation is requested in all cases of truck supervisor uncertainty. Please assist us with the question(s) below: Coding Question(s): Pt admitted with metabolic encephalopathy. History of UTI's. . 07/25 progress note mentioned treating yeast infection. 07/26 addendum note documented Fluconazole added to treat yeast . Lab > 60,000 with patient symptomatic. Seeking to determine if UTI was treated during this inpatient stay. Please check the phrase below that applies. Thank you. Aubrey Combs ASSESSMENT SPECIALIST [facility] Physician's Response(s): UTI was diagnosed and treated during this hospital stay. UTI was not treated during this hospital stay. Cannot clinically correlate if UTI was treated Other: Please document: Principal Diagnosis: "that condition established after study, to be chiefly responsible for occasioning the admission of the patient to the hospital for care." Co-Existing Principal Diagnosis: "when two or more diagnoses equally meet the criteria for principal diagnosis as determined by the circumstances of admission, diagnostic work up, and/or therapy provided, and the Alphabetic Index, Tabular List, or another coding guideline does not provide sequencing direction, any one of the diagnoses may be sequenced first." "When the physician has documented what appears to be a current diagnosis in the body of the record, but has not included the diagnosis in the final diagnostic statement, the physician should be asked whether the diagnosis should be added." (Source Coding [facility] 2 QTR90. p3-4) RIKA
== END 2022-07-28 15:43 | disposition home or self-care (01) | DRG 71 ==
LOC: ED 13:23 → 3E 15:46 → SUATTDRO 15:46 → 3E 18:23
DX: G93.41 Metabolic encephalopathy; Z87.440 Personal history of urinary (tract) infections; Z96.643 Presence of artificial hip joint, bilateral; E03.9 Hypothyroidism, unspecified; Z79.82 Long term (current) use of aspirin; Z88.5 Allergy status to narcotic agent; R09.02 Hypoxemia; G90.A Postural orthostatic tachycardia syndrome [POTS]; R07.89 Other chest pain; M54.9 Dorsalgia, unspecified; R79.89 Other specified abnormal findings of blood chemistry; K22.70 Barrett's esophagus without dysplasia; F32.A Depression, unspecified; E78.5 Hyperlipidemia, unspecified; Z93.3 Colostomy status; M06.9 Rheumatoid arthritis, unspecified; N18.30 Chronic kidney disease, stage 3 unspecified; I50.32 Chronic diastolic (congestive) heart failure; Z79.890 Hormone replacement therapy; Z86.16 Personal history of COVID-19